=== PATIENT | female | born 1970 | race Hispanic/Latino ===

== ENCOUNTER 2020-02-01 16:47 | Emergency (ER) | payer OTHER ==
--- OUTSIDE RECORDS SUMMARY | 2020-02-01 17:06 | XMS REPORT | Clinical Summary ---
:1970 Author Organization [facility] Address [address] [place] [address] Care Team Providers Name Role Phone Fahad Merino MD Unavailable Aubrey Alanis MD Unavailable Unavailable Brandon Mcmillan Unavailable Benny Han Primary Care Provider Unavailable Allergies Active Allergy Reactions Severity Noted Date Comments Atorvastatin 05/17/2019 Muscle cramps, able to tolerate pravastatin Medications Medication Sig Dispensed Refills Start End Date Status Date aspirin 81 MG EC Take 81 mg by 0 Active tablet mouth daily. mycophenolate Take 4 capsules 0 01/25/20 Active (CELLCEPT) 250 mg (1,000 mg total) 0 21 capsule by mouth 2 (two) times daily. sulfamethoxazole-t Take 1 tablet (80 0 Active rimethoprim mg of trimethoprim 0 (BACTRIM,SEPTRA) total) by mouth 400-80 mg per daily. tablet valGANciclovir Take 1 tablet (450 0 Active (VALCYTE) 450 mg mg total) by mouth 0 21 tablet 3 (three) times a week MON/WED/FRI. clotrimazole Use as directed 1 0 Active (MYCELEX) 10 mg tablet (10 mg 0 marc total) in the mouth or throat 3 (three) times daily with meals. pantoprazole Take 1 tablet (40 0 Active (PROTONIX) 40 MG mg total) by mouth 0 tablet daily. PARoxetine (PAXIL) Take 1 tablet (20 2 Active 20 MG tablet mg total) by mouth 0 every morning. carvediloL (COREG) Take 1 tablet (25 60 tablet 11 Active 25 MG tablet mg total) by mouth 0 21 2 (two) times daily. NIFEdipine (ADALAT Take 1 tablet (60 60 tablet Active CC) 60 MG 24 hr mg total) by mouth 0 21 tablet 2 (two) times daily. levETIRAcetam Take 1 tablet (500 0 Active (KEPPRA) 500 MG mg total) by mouth 0 tablet 2 (two) times daily. fenofibrate Take 1 tablet (54 0 Active (LOFIBRA) 54 MG mg total) by mouth 0 tablet daily. pravastatin Take 1 tablet (40 30 tablet 01/25/20 Active (PRAVACHOL) 40 MG mg total) by mouth 0 21 tablet daily. fluticasone 2 sprays by Nasal 9.9 mL 0 Active propionate route daily. 0 (FLONASE) 50 mcg/actuation nasal spray insulin glargine Inject 10 Units 0 Active (BASAGLAR KWIKPEN subcutaneously 2 0 U-100 INSULIN) 100 (two) times daily. unit/mL (3 mL) InPn acetaminophen-code Take 1 tablet by 30 tablet 0 / 5 Active ine (TYLENOL #3) mouth every 6 0 20 300-30 mg per (six) hours as tablet needed for up to 10 days. Max Daily Amount: 4 tablets docusate sodium Take 1 capsule 10 capsule 0 Active (COLACE) 100 MG (100 mg total) by 0 capsule mouth 2 (two) times daily as needed. predniSONE Take 1 tablet (5 0 Ac tive (DELTASONE) 5 MG mg total) by mouth 0 tablet daily. furosemide (LASIX) Take 1 tablet (40 0 Active 40 MG tablet mg total) by mouth 0 21 daily. tacrolimus Take 3 capsules 0 01/27/20 Act daja (PROGRAF) 0.5 MG (1.5 mg total) by 0 21 capsule mouth every morning AND 4 capsules (2 mg total) every evening. pantoprazole Take 40 mg by 0 01/25/20 Dis continued (PROTONIX) 40 MG mouth daily. 20 tablet pravastatin Take 40 mg by 0 03/31/20 Disc ontinued (PRAVACHOL) 40 MG mouth daily. 19 tablet cholecalciferol, Take 5,000 Units 0 Discontinued vitamin D3, 5,000 by mouth daily. 20 unit Tab omega-3 fatty Take 120 mg by 0 01/20/20 D iscontinued acids-vitamin E mouth 2 (two) 20 1,000 mg Cap times daily . insulin glargine Inject 30 Units 0 0 Discontinued (BASAGLAR KWIKPEN subcutaneously 20 U-100 INSULIN) 100 nightly . unit/mL (3 mL) InPn calcium carbonate Take 3 tablets by 0 01/10 09/28 Discontinued (TUMS EX) 300 mg mouth daily. 20 Chew fluticasone 2 sprays by Nasal 0 01/25/20 Discontinued (FLONASE) 50 route daily. 20 mcg/actuation nasal spray NIFEdipine (ADALAT Take 1 tablet (60 60 tablet 0 04/30 CC) 60 MG 24 hr mg total) by mouth 8 19 tablet 2 (two) times daily. ipratropium-albute Take 3 mLs by 30 vial 0 0 rol (DUO-NEB) 0.5 nebulization every 8 19 mg-3 mg(2.5 mg 6 (six) hours as base)/3 mL needed for nebulizer solution Wheezing for up to 360 days. levETIRAcetam Take 1 tablet (500 60 tablet 3 0 (KEPPRA) 500 MG mg total) by mouth 9 20 tablet 2 (two) times daily. losartan (COZAAR) Take 1 tablet (50 60 tablet 3 07/11 50 MG tablet mg total) by mouth 9 20 2 (two) times daily. carvedilol (COREG) Take 1 tablet (25 60 tablet 3 11/28 Discontinued 25 MG tablet mg total) by mouth 9 20 2 (two) times daily. fenofibrate Take 54 mg by 0 01/25/20 Disc ontinued (LOFIBRA) 54 MG mouth daily. 9 20 tablet PARoxetine (PAXIL) Take 20 mg by 2 0 Discontinued 20 MG tablet mouth every 9 20 morning. atorvastatin Take 40 mg by 0 01/21/20 Dis continued (LIPITOR) 40 MG mouth. 9 20 tablet carvedilol (COREG) Take 1 tablet (25 60 tablet Discontinued 25 MG tablet mg total) by mouth 0 20 2 (two) times daily. cloNIDine HCl Take 1 tablet (0.1 60 tablet 0 Discontinued (CATAPRES) 0.1 MG mg total) by mouth 0 20 tablet 2 (two) times daily. guaiFENesin Take 1 tablet (600 60 tablet 01/20/20 Discontinued (MUCINEX) 600 mg mg total) by mouth 0 20 12 hr tablet 2 (two) times daily. NIFEdipine (ADALAT Take 1 tablet (60 60 tablet Discontinued CC) 60 MG 24 hr mg total) by mouth 0 20 tablet 2 (two) times daily. pravastatin Take 1 tablet (40 30 tablet 01/25/20 Discontinued (PRAVACHOL) 40 MG mg total) by mouth 0 20 tablet nightly. azithromycin Take 1 tablet (500 5 tablet 0 05/23/19 (ZITHROMAX) 500 MG mg total) by mouth 0 20 tablet daily for 5 days. losartan (COZAAR) Take 50 mg by 0 01/25/20 Discontinued 50 MG tablet mouth 2 (two) 20 times daily. levETIRAcetam Take 500 mg by 0 01/25/20 D iscontinued (KEPPRA) 500 MG mouth 2 (two) 20 tablet times daily. tacrolimus Take 3 capsules 0 01/25/20 Dis continued (PROGRAF) 0.5 MG (1.5 mg total) by 0 20 capsule mouth 2 (two) times daily. predniSONE Take 2 tablets (10 0 01/27/20 Discontinued (DELTASONE) 5 MG mg total) by mouth 0 20 tablet daily. furosemide (LASIX) Take 1 tablet (40 0 Discontinued 40 MG tablet mg total) by mouth 0 20 2 (two) times daily. tacrolimus Take 4 capsules (2 0 01/27/20 Discontinued (PROGRAF) 0.5 MG mg total) by mouth 0 20 capsule 2 (two) times daily. Active Problems Patient Care Coordination Note 1. ESRD, initially with proteinuria and CKD, biopsy 14 years ago in [place] indicated possible NSAID related, a second biopsy done 10 years ago minimal change. Third biopsy a few years ago with FSG S, pt started on steroids but subsequent ly failed, now on peritoneal dialysis since Mar 2012. 2. DM type 2 for 6 years now on insulin 3. HTN for years 4. Hyperlipidemia 5. Secondary hyperparathyroidism 6. Anemia of CKD 7. Surgeries including cholecystectomy, PD catheter, ovarian cyst on left removed (benign), hysterectomy. Problem Noted Date Hypertensive urgency 01/22/2020 Fluid overload 01/22/2020 S/P kidney transplant 01/21/2020 End stage renal disease 01/20/2020 Seizure disorder 10/17/2018 Liver masses 10/17/2018 Lethargy 07/30/2018 Hypertensive urgency 07/30/2018 Encephalopathy acute 07/30/2018 Shortness of breath 04/07/2018 Fatty liver 04/07/2018 Abnormal liver diagnostic imaging 04/07/2018 Hyperkalemia 12/16/2017 Fever, unspecified fever cause 12/16/2017 Iron deficiency anemia, unspecified iron deficiency an emia type 12/16/2017 ESRD on peritoneal dialysis 01/31/2017 Last Assessment & Plan: ESRD -cont peritoneal dialysis -cont to lose weight until reach goal of 223 -patient currently activated for kidney transplant 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 Will continue to follow. DM (diabetes mellitus) 06/10/2012 Last Assessment & Plan: DM: -Cont current management per Endocrine HTN (hypertension) 06/10/2012 Last Assessment & Plan: HTN; -well controlled on current medication a nd dietary regimen Anemia 06/10/2012 Last Assessment & Plan: Anemia -Hg stable, cont current care with hg mo nitoring and iron infusions per nephrology Kidney transplant status, cadaveric Resolved Problems Problem Noted Date Resolved Date Acute post-operative pain 01/21/2020 01/22/2020 Acute respiratory insufficiency 01/21/2020 01/22/20 Acute blood loss anemia 01/21/2020 01/22/2020 Encounters Date Type Specialty Care Team Description 02/01/2020 Telephone Transplant VillelaAdwoa Y Appointment 01/31/2020 Telephone Transplant Anya Villelaa Y Appointment 01/27/2020 Evaluation Transplant Timmins, Status post kid monserrat Reynolds MD transplant (Primary Marquez Yao Dx) MD Alessio 01/27/2020 Orders Only Transplant Timmins, Status post kid monserrat Hepatology Cecile Reynolds MD transplant 01/27/2020 Abstract Transplant Marquez Yao MD 01/27/2020 Documentation Transplant Nathan Littlejohn RN 01/26/2020 Telephone Transplant Adwoa Villela Y Appointment 01/24/2020 Orders Only Transplant Sheri Morel, Status post kidney anime artist (Tawny keller Dx) 01/21/2020 Anesthesia Event Herberth Melvin, AA 01/21/2020 Surgery Kayla South Aba TRANSPLANT,K JOHN Dodson MD LYNNE 01/21/2020 Documentation Intensive Care Isadora Reyna RN 01/21/2020 Abstract Transplant Nohemi Pacheco RN 01/21/2020 Documentation Transplant Isadora Reyna, MELANIE 01/20/2020 Hospital Encounter Intensive Care Kayla South Aba Abno rmal liver diagnostic imaging; - MD Ivory Acute blood loss anemia; 01/25/2020 Mayo Cheatham Acute post-o perative pain; MD Marilyn Acute respirato ry insufficiency; End stage renal disease (HCC); ESRD on periton eal dialysis (HCC); S/P kidney nichols splant; Seizure disorde r (HCC); Other hypervole alesia; Hypertensive ur gency 01/20/2020 Outside Orders Lab Sanket Melendez 01/20/2020 Travel 01/20/2020 Documentation Transplant Isadora Reyna, MELANIE 01/20/2020 Orders Only Lisa Balderas NP 01/19/2020 Telephone Transplant Nohemi Pacheco, MELANIE Waitlist Ma intecristina 01/18/2020 Orders Only Lab Korin, Awaiting Cecile Reynolds MD transplanta tion of kidney 01/18/2020 Orders Only Transplant Isadora Reyna RN Awaiting transplantation of kidney (Primary Dx) 12/31/2019 Documentation Transplant Maggie Camilo 11/30/2019 Telephone Transplant Nohemi Pacheco RN Waitlist Suzan muñiz 11/26/2019 Documentation Transplant Nohemi Pacheco RN 09/29/2019 Telephone Hepatology Maribel Judd, reschedule to day appt [place] 09/28/2019 Telephone Hepatology Carmen Blancas, Appointment (CX) [place] 09/22/2019 Orders Only Hepatology Eloy Titus Liver masses ( Primary NANI Moreno Dx) 08/19/2019 Documentation Transplant Reginaldo Yepez 05/26/2019 Orders Only Transplant Nohemi Pacheco RN Awaiting transplantation of kidney (Primary Dx) 05/18/2019 Travel 05/17/2019 Emergency General Internal Carrol Aceves M D Hypertensive urgency (Primary Dx); - Medicine Nishi David ESRD (end stage renal disease) (HCC); 05/18/2019 MD Teto Acute non intra ctable tension-type headache; History of diab etes mellitus 05/17/2019 Orders Only General Internal Medicine 05/17/2019 Travel 03/31/2019 Evaluation Transplant Timmanishs, Awaiting Cecile Reynolds MD transplantation of Marquez Yao kidney (Prim juan pablo Dx) MD Alessio 03/31/2019 Office Visit Hepatology Jesus, Rise Liver masses (Primary Dx); MD Archana Fatty liver; Eloy Titus Seizure disord er; NANI Moreno ESRD on periton eal dialysis (HCC); Abnormal liver diagnostic imaging; Shortness of br eath 03/19/2019 Documentation Hepatology Suresh Gold NP 03/16/2019 Hospital Encounter Radiology Jesus, Rise Liver masses MD Archana 03/09/2019 Telephone Transplant Nhoemi Pacheco RN Waitlist Suzan muñiz 03/09/2019 Orders Only Transplant Nohemi Pacheco RN Awaiting transplantation of kidney (Primary Dx) after 01/31/2019 Immunizations Name Dates Previously Given Next Due Influenza Three-TIV PF 5+ YRS 07/20/2015 Pneumococcal Polysaccharide (Pneumovax) 07/20/2015 Family History Medical History Relation Name Comments Hypertension Father Diabetes Mother Hypertension Mother Hematuria Sister Relation Name Status Comments Father Alive 67 yrs old HTN TIA Mother Alive 62 yrs old HT N DM Sister Alive 40 yrs old go [facility] health Sister Social History Tobacco Use Types Packs/Day Years Used Date Never Smoker Smokeless Tobacco: Never Used Alcohol Use Drinks/Week oz/Week Comments Yes 1 DRINK 3-4 X PE R YEAR Sex Assigned at Date Recorded Not on file Job Start Date Occupation Industry Not on file Not on file Not on file Travel History Travel Start Travel End No recent travel history available. Last Filed Vital Signs Vital Sign Reading Time Taken Blood Pressure 121/70 01/27/2020 12:55 PM CDT Pulse 78 01/27/2020 12:55 PM CDT Temperature 36.6 C (97.9 F) 01/27/2020 12:55 PM CDT Respiratory Rate 16 01/27/2020 12:55 PM CDT Oxygen Saturation 97% 01/25/2020 8:02 AM CDT Inhaled Oxygen Concentration 24% 01/24/2020 3:00 AM CDT Weight 93.5 kg (206 lb 1.6 oz) 01/27/2020 12:55 PM CDT Height 170.2 cm (5' 7") 01/27/2020 12:55 PM CDT Body Mass Index 32.28 01/27/2020 12:55 PM CDT Plan of Treatment Date Type Specialty Care Team Description 02/03/2020 Orders Only Transplant Hepatology Bree Langley MD [address] [address] [phone] 02/08/2020 Orders Only Transplant Hepatology Bree Langley MD [address] [facility] [address] [place], [place] [address] [phone] 02/08/2020 Evaluation Transplant 02/08/2020 Evaluation Transplant 02/15/2020 Orders Only Transplant Hepatology Bree Langley MD [address] [address] [phone] 02/15/2020 Evaluation Transplant Health Maintenance Due Date Last Done Comments DIABETIC EYE EXAM 1980 DIABETIC FOOT EXAM 1980 URINE MICROALBUMIN 1980 CERVICAL CANCER SCREENING PAP ONLY 1991 (Age 21-65) MEDICARE ANNUAL WELLNESS (YEAR 2 03/13/2013 or FIRST YEAR if no IPPE) PNEUMOCOCCAL VACCINE 2-64 YEARS AT 07/19/2016 07/20/2015 RISK (2 of 3 - PCV13) HEMOGLOBIN A1C 01/31/2019 07/31/2018, 02/10/2018, 03/05/2017, Additional history exists INFLUENZA VACCINE (#1) 2020 07/20/2015 LIPID PANEL 02/24/2022 02/24/2019, 08/11/2018, 02/10/2018, Additional history exists Implants Implanted Type Area [employer] Vulcanizer Device Shelf Model / Identifier Expiration Serial / Lot Date Cath Yulisa Dlys 2 Cuf Curl 62cm [id number] - [id number] Catheter Right: COVIDIEN:MARIELLA 05/08/2021 [id number] / Implanted: Qty: 1 on 01/31/2017 by Aisha Page MD Di alysis Abdomen L / Graduate Student [id number] Stent Uret Polaris [id number] - [id number] IMPLANTS Lef t: [place] 07/21/2022 [id number] / Implanted: Qty: 1 on 01/21/2020 by Kayla South Aba, MD Ureter SCI:UROLOGY/SIDE LASTER TACK / ECOLOGY [id number] Procedures Procedure Name Priority Date/Time Associated Comments Diagnosis (CELLAVISION MANUAL Routine 01/27/2020 8:39 Status post kidne y Results for this DIFF) AM CDT transplant procedure are i n the results section. CBC W/PLT COUNT & AUTO Routine 01/27/2020 8:39 Status post ki dney Results for this DIFFERENTIAL AM CDT transplant procedure are i n the results section. FLOW PRA CLASS II WITH Routine 01/27/2020 8:39 Status post ki dney Results for this REFLEX TO ANTIBODY AM CDT transplant procedure are in SPECIFICITY the results section. FLOW PRA CLASS I WITH Routine 01/27/2020 8:39 Status post kid monserrat Results for this REFLEX TO ANTIBODY AM CDT transplant procedure are in SPECIFICITY the results section. AB DONOR SPECIFIC, DSA Routine 01/27/2020 8:39 Status post ki dney Results for this AM CDT transplant procedure are i n the results section. AB SPECIFICITY CLASS II Routine 01/27/2020 8:39 Status post k idney Results for this AM CDT transplant procedure are i n the results section. AB SPECIFICITY CLASS I Routine 01/27/2020 8:39 Status post ki dney Results for this AM CDT transplant procedure are i n the results section. TACROLIMUS LEVEL Routine 01/27/2020 8:39 Status post kidney R esults for this AM CDT transplant procedure are i n the results section. CBC W/PLT COUNT & AUTO Routine 01/27/2020 8:39 Status post ki dney Results for this DIFFERENTIAL AM CDT transplant procedure are i n the results section. URINALYSIS W/ REFLEX Routine 01/27/2020 8:38 Status post kidn ey Results for this URINE CULTURE AM CDT transplant procedure are in the results section. PHOSPHORUS Routine 01/27/2020 8:38 Status post kidney Resul ts for this AM CDT transplant procedure are i n the results section. COMPREHENSIVE METABOLIC Routine 01/27/2020 8:38 Status post k idney Results for this PANEL AM CDT transplant procedure are i n the results section. URINE CULTURE Routine 01/27/2020 8:38 Status post kidney Resu lts for this AM CDT transplant procedure are i n the results section. POCT-GLUCOSE METER Routine 01/25/2020 8:04 Resul ts for this AM CDT procedure are i n the results section. CBC W/PLT COUNT & AUTO Routine 01/25/2020 5:15 R esults for this DIFFERENTIAL AM CDT procedure are i n the results section. TACROLIMUS LEVEL Routine 01/25/2020 5:15 Results for this AM CDT procedure are i n the results section. CMV PCR, QUANTITATIVE Routine 01/25/2020 5:15 AM CDT PHOSPHORUS Routine 01/25/2020 5:15 Results for this AM CDT procedure are i n the results section. MAGNESIUM Routine 01/25/2020 5:15 Results for this AM CDT procedure are i n the results section. CBC W/PLT COUNT & AUTO Routine 01/25/2020 5:15 R esults for this DIFFERENTIAL AM CDT procedure are i n the results section. BASIC METABOLIC PANEL Routine 01/25/2020 5:15 Re sults for this (7) AM CDT procedure are i n the results section. POCT-GLUCOSE METER Routine 01/24/2020 10:07 Resul ts for this PM CDT procedure are i n the results section. POCT-GLUCOSE METER Routine 01/24/2020 6:22 Resul ts for this PM CDT procedure are i n the results section. PLASMA EXCHANGE Routine 01/24/2020 6:19 Results for this PM CDT procedure are i n the results section. TRANSFUSION SERVICE 01/24/2020 6:01 REPORT - SCAN PM CDT CALCIUM, IONIZED Routine 01/24/2020 5:13 Results for this PM CDT procedure are i n the results section. POCT-GLUCOSE METER Routine 01/24/2020 11:59 Resul ts for this AM CDT procedure are i n the results section. POCT-GLUCOSE METER Routine 01/24/2020 7:16 Resul ts for this AM CDT procedure are i n the results section. CBC W/PLT COUNT & AUTO Routine 01/24/2020 5:36 R esults for this DIFFERENTIAL AM CDT procedure are i n the results section. TACROLIMUS LEVEL Routine 01/24/2020 5:36 Results for this AM CDT procedure are i n the results section. TOXOPLASMA GONDII Routine 01/24/2020 5:36 Result s for this ANTIBODY, IGG AM CDT procedure are in the results section. HIV-1 ANTIGEN WITH Routine 01/24/2020 5:36 Resul ts for this HIV-1/2 ANTIBODY AM CDT procedure a re in the results section. HEPATITIS C ANTIBODY Routine 01/24/2020 5:36 Res ults for this AM CDT procedure are i n the results section. HEPATITIS A ANTIBODY, Routine 01/24/2020 5:36 Re sults for this IGG AM CDT procedure are i n the results section. COCCIDIOIDES ANTIBODIES Routine 01/24/2020 5:36 Results for this AM CDT procedure are i n the results section. CRYPTOCOCCAL ANTIGEN Routine 01/24/2020 5:36 Res ults for this AM CDT procedure are i n the results section. PHOSPHORUS Routine 01/24/2020 5:36 Results for this AM CDT procedure are i n the results section. MAGNESIUM Routine 01/24/2020 5:36 Results for this AM CDT procedure are i n the results section. CBC W/PLT COUNT & AUTO Routine 01/24/2020 5:36 R esults for this DIFFERENTIAL AM CDT procedure are i n the results section. BASIC METABOLIC PANEL Routine 01/24/2020 5:36 Re sults for this (7) AM CDT procedure are i n the results section. POCT-GLUCOSE METER Routine 01/24/2020 5:22 Resul ts for this AM CDT procedure are i n the results section. PREPARE PLASMA Routine 01/23/2020 11:54 Results f or this PM CDT procedure are i n the results section. TRANSFUSION SERVICE 01/23/2020 6:02 REPORT - SCAN PM CDT POCT-GLUCOSE METER Routine 01/23/2020 4:12 Resul ts for this PM CDT procedure are i n the results section. CALCIUM, IONIZED Routine 01/23/2020 1:33 Results for this PM CDT procedure are i n the results section. POCT-GLUCOSE METER Routine 01/23/2020 11:04 Resul ts for this AM CDT procedure are i n the results section. PLASMA EXCHANGE Routine 01/23/2020 9:09 Results for this AM CDT procedure are i n the results section. CBC W/PLT COUNT & AUTO Routine 01/23/2020 4:12 R esults for this DIFFERENTIAL AM CDT procedure are i n the results section. TACROLIMUS LEVEL Routine 01/23/2020 4:12 Results for this AM CDT procedure are i n the results section. PHOSPHORUS Routine 01/23/2020 4:12 Results for this AM CDT procedure are i n the results section. MAGNESIUM Routine 01/23/2020 4:12 Results for this AM CDT procedure are i n the results section. CBC W/PLT COUNT & AUTO Routine 01/23/2020 4:12 R esults for this DIFFERENTIAL AM CDT procedure are i n the results section. BASIC METABOLIC PANEL Routine 01/23/2020 4:12 Re sults for this (7) AM CDT procedure are i n the results section. PREPARE RBC Routine 01/22/2020 11:54 Results for this PM CDT procedure are i n the results section. POCT-GLUCOSE METER Routine 01/22/2020 11:09 Resul ts for this PM CDT procedure are i n the results section. TRANSFUSION SERVICE 01/22/2020 6:03 REPORT - SCAN PM CDT POCT-GLUCOSE METER Routine 01/22/2020 5:04 Resul ts for this PM CDT procedure are i n the results section. TRANSFUSE PLASMA Routine 01/22/2020 1:52 PM CDT TRANSFUSE PLASMA Routine 01/22/2020 1:17 PM CDT PLASMA EXCHANGE Routine 01/22/2020 1:10 Results for this PM CDT procedure are i n the results section. CALCIUM, IONIZED Routine 01/22/2020 1:06 Results for this PM CDT procedure are i n the results section. TRANSFUSE PLASMA Routine 01/22/2020 12:44 PM CDT CALCIUM, IONIZED Routine 01/22/2020 12:03 Results for this PM CDT procedure are i n the results section. POCT-GLUCOSE METER Routine 01/22/2020 11:52 Resul ts for this AM CDT procedure are i n the results section. POCT-GLUCOSE METER Routine 01/22/2020 10:01 Resul ts for this AM CDT procedure are i n the results section. XR CHEST 1 VIEW Routine 01/22/2020 3:52 Results for this PORTABLE/BEDSIDE AM CDT procedure a re in the results section. CBC W/PLT COUNT & AUTO Routine 01/22/2020 3:31 R esults for this DIFFERENTIAL AM CDT procedure are i n the results section. TACROLIMUS LEVEL Routine 01/22/2020 3:31 Results for this AM CDT procedure are i n the results section. VANCOMYCIN LEVEL, Routine 01/22/2020 3:31 Result s for this RANDOM AM CDT procedure are i n the results section. PHOSPHORUS Routine 01/22/2020 3:31 Results for this AM CDT procedure are i n the results section. MAGNESIUM Routine 01/22/2020 3:31 Results for this AM CDT procedure are i n the results section. CBC W/PLT COUNT & AUTO Routine 01/22/2020 3:31 R esults for this DIFFERENTIAL AM CDT procedure are i n the results section. BASIC METABOLIC PANEL Routine 01/22/2020 3:31 Re sults for this (7) AM CDT procedure are i n the results section. POCT-GLUCOSE METER Routine 01/21/2020 11:29 Resul ts for this PM CDT procedure are i n the results section. HEMOGLOBIN AND Routine 01/21/2020 9:46 Results f or this HEMATOCRIT PM CDT procedure are i n the results section. TRANSFUSE LEUKO-REDUCED Routine 01/21/2020 9:06 RED BLOOD CELLS PM CDT TRANSFUSION SERVICE 01/21/2020 6:01 REPORT - SCAN PM CDT ANTIBODY IDENTIFICATION STAT 01/21/2020 5:02 Results for this PM CDT procedure are i n the results section. PREPARE LEUKO-REDUCED Routine 01/21/2020 4:22 Re sults for this RBC PM CDT procedure are i n the results section. PREPARE RBC STAT 01/21/2020 3:53 Results for this PM CDT procedure are i n the results section. CBC W/PLT COUNT & AUTO STAT 01/21/2020 1:21 R esults for this DIFFERENTIAL PM CDT procedure are i n the results section. CBC W/PLT COUNT & AUTO STAT 01/21/2020 1:21 R esults for this DIFFERENTIAL PM CDT procedure are i n the results section. US TRANSPLANT KIDNEY STAT 01/21/2020 1:07 Res ults for this PM CDT procedure are i n the results section. BASIC METABOLIC PANEL STAT 01/21/2020 11:51 Re sults for this (7) AM CDT procedure are i n the results section. PLATELET COUNT STAT 01/21/2020 11:51 Results f or this AM CDT procedure are i n the results section. HGB/HCT (H&H) - STAT STAT 01/21/2020 11:51 Res ults for this LAB AM CDT procedure are i n the results section. GLUCOSE-STAT LAB STAT 01/21/2020 11:51 Results for this AM CDT procedure are i n the results section. CALCIUM, IONIZED STAT 01/21/2020 11:51 Results for this AM CDT procedure are i n the results section. POTASSIUM-STAT LAB STAT 01/21/2020 11:51 Resul ts for this AM CDT procedure are i n the results section. SODIUM NA-STAT LAB STAT 01/21/2020 11:51 Resul ts for this AM CDT procedure are i n the results section. BLOOD GAS, ARTERIAL STAT 01/21/2020 11:51 Resu lts for this AM CDT procedure are i n the results section. SURGICALLY OBTAINED LINETTE 01/21/2020 11:45 Resu lts for this CULTURE + GRAM STAIN AM CDT procedu re are in the results section. ANAEROBIC CULTURE LINETTE 01/21/2020 11:45 Result s for this AM CDT procedure are i n the results section. FUNGUS CULTURE + SMEAR Routine 01/21/2020 11:45 AM CDT REMOVAL DIALYSIS 01/21/2020 6:00 End stage renal CATHETER AM CDT disease (HCC) Case Notes KIDNEY TRANSPLANT REQUESTING [id number] ID: [id number] ID: [id number] INCREASED RISKCELL SAVER: SHABANA JORDAN EY ON PUMPFROM [employer] HUMPHREY KIDNEY TRANSPLANTCOORDINATOR TRANSPLANT,KIDNEY-CADAVER 01/21/2020 6:00 AM CD T End stage renal disease (HCC) Case Notes KIDNEY TRANSPLANT REQUESTING [id number] ID: [id number] ID: [id number] INCREASED RISKCELL SAVER: SHABANA PONCE ON PUMPFROM [employer] [facility] KIDNEY TRANSPLANTCOORDINATOR CBC W/PLT COUNT & AUTO STAT 01/20/2020 9:30 PM CDT Results for this DIFFERENTIAL procedure are i n the results section . CBC W/PLT COUNT & AUTO STAT 01/20/2020 9:30 PM CDT Results for this DIFFERENTIAL procedure are i n the results section . TYPE AND SCREEN, AUTOMATED STAT 01/20/2020 9:29 PM CDT Results for this procedure are i n the results section . PROTHROMBIN TIME/INR STAT 01/20/2020 9:29 PM CDT Results for this procedure are i n the results section . COMPREHENSIVE METABOLIC Routine 01/20/2020 9:29 PM CDT Results for this PANEL procedure are i n the results section . APTT STAT 01/20/2020 9:29 PM CDT Resu lts for this procedure are i n the results section . CT CHEST WITHOUT IV CONTRAST STAT 01/20/2020 7:12 PM CDT Results for this procedure are i n the results section . BODY FLUID CELL COUNT WITH Routine 01/20/2020 6:20 PM CDT Results for this DIFFERENTIAL procedure are i n the results section . FUNGUS CULTURE + SMEAR Routine 01/20/2020 6:18 PM CDT PERITONEAL DIALYSIS EFFLUENT Routine 01/20/2020 6:18 PM CDT Results for this CULTURE procedure are i n the results section . ECG 12-LEAD Routine 01/20/2020 6:11 PM CDT Procedure Note - Interface, External Ris In - 01/20/2020 6:23 PM CDT Ventricular Rate 67 BPM Atrial Rate 67 BPM P-R Interval 204 ms QRS Duration 88 ms Q-T Interval 486 ms QTC Calculation(Bazett) 513 ms P Saltillo 60 degrees R Saltillo -16 degrees T Saltillo -12 degrees Normal sinus rhythm Prolonged QT Abnormal ECG When compared with ECG of 18:29, No significant change was fo und ECG 12-LEAD Routine 01/20/2020 6:11 Results for this PM CDT procedure are i n the results section. SARS-COV2/RT-PCR STAT 01/20/2020 6:03 Results for this ([facility]) PM CDT procedure are in the results section. CRSMTCH FLOW 3 SERUM Routine 01/18/2020 5:51 Awaiting Res ults for this PM CDT transplantation of procedure are in kidney the results section. CRSMTCH SEROLOGY FV Routine 01/18/2020 5:51 Awaiting Resu lts for this 3 PM CDT transplantation of procedure are in kidney the results section. AB SPECIFICITY CLASS Routine 01/18/2020 5:51 Awaiting Res ults for this II PM CDT transplantation of procedure are in kidney the results section. AB SPECIFICITY CLASS Routine 01/18/2020 5:51 Awaiting Res ults for this I PM CDT transplantation of procedure are in kidney the results section. FLOW PRA CLASS II STAT 01/18/2020 5:51 Awaiting Result s for this WITH REFLEX TO PM CDT transplantation of procedu re are in ANTIBODY SPECIFICITY kidney the res ults section. FLOW PRA CLASS I STAT 01/18/2020 5:51 Awaiting Results for this WITH REFLEX TO PM CDT transplantation of procedu re are in ANTIBODY SPECIFICITY kidney the res ults section. RHYTHM STRIP - SCAN 05/19/2019 4:00 PM CARDIAC NURSE SPUTUM CULTURE + Routine 05/18/2019 12:19 Results for this GRAM STAIN PM CARDIAC NURSE procedure are i n the results section. POCT-GLUCOSE METER Routine 05/18/2019 7:57 Resul ts for this AM CARDIAC NURSE procedure are i n the results section. BASIC METABOLIC Routine 05/18/2019 5:27 Results for this PANEL (7) AM CARDIAC NURSE procedure are i n the results section. POCT-GLUCOSE METER Routine 05/17/2019 9:37 Resul ts for this PM CARDIAC NURSE procedure are i n the results section. ECG 12-LEAD STAT 05/17/2019 6:29 Results for this PM CARDIAC NURSE procedure are i n the results section. CT BRAIN WITHOUT IV STAT 05/17/2019 5:00 Resu lts for this CONTRAST PM CARDIAC NURSE procedure are i n the results section. XR CHEST 1 VIEW STAT 05/17/2019 4:51 Results for this PORTABLE/BEDSIDE PM CARDIAC NURSE procedure a re in the results section. CBC W/PLT COUNT & STAT 05/17/2019 4:47 Result s for this AUTO DIFFERENTIAL PM CARDIAC NURSE procedure are in the results section. B-TYPE NATRIURETIC STAT 05/17/2019 4:47 Resul ts for this FACTOR (BNP) PM CARDIAC NURSE procedure are i n the results section. PT/APTT STAT 05/17/2019 4:47 Results for this PM CARDIAC NURSE procedure are i n the results section. CBC W/PLT COUNT & STAT 05/17/2019 4:47 Result s for this AUTO DIFFERENTIAL PM CARDIAC NURSE procedure are in the results section. TROPONIN I STAT 05/17/2019 4:47 Results for this PM CARDIAC NURSE procedure are i n the results section. MAGNESIUM STAT 05/17/2019 4:47 Results for this PM CARDIAC NURSE procedure are i n the results section. BASIC METABOLIC STAT 05/17/2019 4:47 Results for this PANEL (7) PM CARDIAC NURSE procedure are i n the results section. CBC W/PLT COUNT & Routine 03/31/2019 3:06 Fatty liver Result s for this AUTO DIFFERENTIAL PM CARDIAC NURSE procedure are in the results section. PROTHROMBIN TIME/INR Routine 03/31/2019 3:06 Fatty liver Res ults for this PM CARDIAC NURSE procedure are i n the results section. CBC W/PLT COUNT & Routine 03/31/2019 3:06 Fatty liver Result s for this AUTO DIFFERENTIAL PM CARDIAC NURSE procedure are in the results section. HEPATIC FUNCTION Routine 03/31/2019 3:06 Fatty liver Results for this PANEL PM CARDIAC NURSE procedure are i n the results section. BASIC METABOLIC Routine 03/31/2019 3:06 Fatty liver Results for this PANEL (7) PM CARDIAC NURSE procedure are i n the results section. CT ABDOMEN WITH & Routine 03/16/2019 1:08 Liver masses Result s for this WITHOUT IV CONTRAST PM CARDIAC NURSE procedur e are in the results section. 2D ECHO W/ DOPPLER Routine 02/24/2019 (CW/PW/COLOR) after 01/31/2019 Results FLOW PRA CLASS II WITH REFLEX TO ANTIBODY SPECIFICITY (01/27/2020 8:39 AM CDT) Only the most recent of2 resultswithin the time period is included. Flow Class II Percent Positive [address] [facility] TEST[facility] Specimen Blood Narrative Performed At Disclaimer: [facility] TEST[facility] This test was developed and its performance characteri stics determined by the [facility] Laboratory. It has not been aym red or approved by the U.S. Food and Drug Administration. The FDA has determined that such clearance or approval is not nece ssary. This test is used for clinical purposes. It should not be r egarded as investigational or for research. This laboratory is ce rtified under the Clinical Laboratory Improvement Amendments o f 1988 (CLIA-88) as qualified to perform high complexity clin ical laboratory testing. Performing Organization Address City/[facility] Phone Number [facility] TESTING [address] [place], [place]: [place] [address] [id number], CLIA#[id number] CAP#[id number] UNOS#[id number] FLOW PRA CLASS I WITH REFLEX TO ANTIBODY SPECIFICITY (01/27/2020 8:39 AM CDT) Only the most recent of2 resultswithin the time period is included. Flow Class I Percent Positive 66 [facility] TESTING Specimen Blood Narrative Performed At Disclaimer: [facility] TEST[facility] This test was developed and its performance characteri stics determined by the [facility] Laboratory. It has not been amy red or approved by the U.S. Food and Drug Administration. The FDA has determined that such clearance or approval is not nece ssary. This test is used for clinical purposes. It should not be r egarded as investigational or for research. This laboratory is ce rtified under the Clinical Laboratory Improvement Amendments o f 1988 (CLIA-88) as qualified to perform high complexity clin ical laboratory testing. Performing Organization Address City/[facility] Cent[facility]ode Phone Number [facility] TEST[facility] [address] [place], [place]: [place] [address] [id number], CLIA#[id number] CAP#[id number] UNOS#[id number] AB SPECIFICITY CLASS II (01/27/2020 8:39 AM CDT)Only the most recent of2 resultswithin the time period is included. AB Specificity Class II DR:7 9 10 [facility] H LA TESTING DRw:53 DQ:2 04:01 5 6 8 DQA:01:01 01:02 01:03 02:01 03:02 03:03 05:01 AB Specificity Titr Class MFIs > 1000 [facility] TEST[facility] Report Specimen Blood Narrative Performed At Disclaimer: [facility] TEST[facility] This test was developed and its performance characteri stics determined by the [facility] Laboratory. It has not been amy red or approved by the U.S. Food and Drug Administration. The FDA has determined that such clearance or approval is not nece ssary. This test is used for clinical purposes. It should not be r egarded as investigational or for research. This laboratory is ce rtified under the Clinical Laboratory Improvement Amendments o f 1988 (CLIA-88) as qualified to perform high complexity clin ical laboratory testing. Performing Organization Address City/[facility]ode Phone Number [facility] TEST[facility] [address] [place], [place]: [place] ALEX[place] [address] [id number], CLIA#[id number] CAP#[id number] UNOS#[id number] AB SPECIFICITY CLASS I (01/27/2020 8:39 AM CDT)Only the most recent of2 results within the time period is included. AB Specificity Class I A:1 3 11 23 24 32 36 [facility] B:7 13 27 37 38 41 44 47 48 49 51 53 57 59 60 61 63 73 77 81 Bw:4 AB Specificity Titr Class MFIs > 1000 [facility] TEST[facility] Report Specimen Blood Narrative Performed At Disclaimer: [facility] TEST[facility] This test was developed and its performance characteri stics determined by the [facility] Laboratory. It has not been amy red or approved by the U.S. Food and Drug Administration. The FDA has determined that such clearance or approval is not nece ssary. This test is used for clinical purposes. It should not be r egarded as investigational or for research. This laboratory is ce rtified under the Clinical Laboratory Improvement Amendments o f 1988 (CLIA-88) as qualified to perform high complexity clin ical laboratory testing. Performing Organization Address City/[facility] Phone Number [facility] HLA TESTING ONE [place], [place]: [place] [address] [id number], CLIA#[id number] CAP#[id number] UNOS#[id number] AB Specifities DSA (01/27/2020 8:39 AM CDT) DSA A AG1 02:01 [facility] HLA TESTI NG DSA A AG2 74:01 [facility] HLA TESTI NG DSA B AG1 15:03 [facility] HLA TESTI NG DSA B AG2 15:03 [facility] HLA TESTI NG DSA C AG1 02:02 [facility] HLA TESTI NG DSA C AG2 02:02 [facility] HLA TESTI NG DSA DR AG1 08:04 [facility] HLA TESTI NG DSA DR AG2 13:03 [facility] HLA TESTI NG DSA DRw AG2 3*01:01 [facility] HLA TESTI NG DSA DQA AG1 04:01 [facility] HLA TESTI NG DSA DQA AG2 05 [facility] HLA TESTI NG DSA DQB AG1 03:01 [facility] HLA TESTI NG DSA DQB AG2 03:01 [facility] HLA TESTI NG DSA DPA AG1 02:01 [facility] HLA TESTI NG DSA DPA AG2 03:01 [facility] HLA TESTI NG DSA DPB AG1 01:01 [facility] HLA TESTI NG DSA DPB AG2 105:01 [facility] HLA TESTI NG AB Specificity DSA Comment NO DONOR SPECIFIC ANTIBODY [facility] TEST[facility] DETECTED WITH MFIs > 1000; If a specific bead is not available on single antigen panel and MFIs > 1000, results reflect the average of beads with serological equivalence. Specimen Blood Narrative Performed At Disclaimer: [facility] TEST[facility] This test was developed and its performance characteri stics determined by the [facility] Laboratory. It has not been amy red or approved by the U.S. Food and Drug Administration. The FDA has determined that such clearance or approval is not nece ssary. This test is used for clinical purposes. It should not be r egarded as investigational or for research. This laboratory is ce rtified under the Clinical Laboratory Improvement Amendments o f 1988 (CLIA-88) as qualified to perform high complexity clin ica laboratory testing. Performing Organization Address City/State/Zipcode Phone Number [facility] HLA TESTING ONE [facility] [place], [place]: [place] [address] [id number], CLIA#[id number] CAP#[id number] UNOS#[id number] Manual Differential (01/27/2020 8:39 AM CDT) % Neutros 86 % [facility] % Lymphs 1 % [facility] % Monos 5 % [facility] % Eos 2 % [facility] % Metamyelo 2 (H) 0 - 0 % [facility] % Myelo 3 (H) 0 - 0 % [facility] % Promyelo 1 (H) 0 - 0 % [facility] % Bands 2 0 - 10 % [facility] # Neutros 8.17 (H) 1.56 - 6.13 K/ul [facility] # Lymphs 0.10 (L) 1.18 - 3.74 K/ul [facility] # Monos 0.48 (H) 0.24 - 0.36 K/uL [facility] # Eos 0.19 0.04 - 0.36 K/uL [facility] # Metamyelo 0.19 (H) 0.00 - 0.00 K/uL [facility] # Myelo 0.29 (H) 0.00 - 0.00 K/uL [facility] # Promyelo 0.10 (H) 0.00 - 0.00 K/uL [facility] # Bands 0.19 0.00 - 0.80 K/uL [facility] Total Counted 100 [facility] nRBC (manual) 2 (H) 0 - 0 /100 WBC [facility] WBC Morphology Normal [facility] Platelet Morphology Normal [facility] Polychromasia 1+ few [facility] Artifact Present [facility] Platelet Conc Adequate [facility] Specimen Blood Narrative Performed At Director Of Photography ID - Raya Overholt [facility] User comments: Slide comments: Performing Organization Address City/State/Zipcode Phone Number [facility] [address] [place] [address] CENTER CBC with platelet count + automated diff (01/27/2020 8:39 AM CDT)Only the most recent of9 resultswithin the time period is included. WBC 9.5 3.5 - 10.5 K/L [facility] RBC 2.72 (L) 3.93 - 5.22 M/L [facility] Hemoglobin 8.4 (L) 11.2 - 15.7 GM/DL [facility] Hematocrit 26.5 (L) 34.1 - 44.9 % [facility] MCV 97.4 (H) 79.4 - 94.[address] [facility] MCH 30.9 25.6 - 32.[address] [facility] MCHC 31.7 (L) 32.2 - 35.5 GM/DL [facility] RDW 13.3 11.7 - 14.4 % [facility] Platelets 270 150 - 450 K/CU MM [facility] MPV 10.2 9.4 - 12.3 fL [facility] nRBC 1 (H) 0 - 0 /100 WBC [facility] Specimen Blood Performing Organization Address City/[facility]/Zipcode Phone Number [address] [address] CENTER Tacrolimus level (01/27/2020 8:39 AM CDT)Only the most recent of5 resultswithin the time period is included. Tacrolimus Lvl 13.0 10.0 - 20.0 ng/mL [facility] Specimen Blood Narrative Performed At Director Of Photography ID - [place] F [facility] Performing Organization Address City/State/Zipcode Phone Number [address] [address] CENTER Urinalysis w/Microscopic + Reflex to Culture (01/27/2020 8:38 AM CDT) Color, UA Yellow [facility] Clarity, UA Clear [facility] Specific Mcbrides, UA 1.015 1.001 - 1.[address] [facility] pH, UA 6.0 5.0 - 8.[address] [facility] Protein, UA 30 mg/dL (A) Negative [facility] Glucose, UA 30 mg/dL (A) Negative [facility] Ketones, UA Negative Negative [facility] Bilirubin, UA Negative Negative [facility] Blood, UA Small (A) Negative [facility] Nitrite, UA Negative Negative [facility] Leukocytes, UA Small (A) Negative [facility] Urobilinogen, UA 0.2 0.2 - 1.0 mg/dL [facility] RBC, UA 30 /HPF [facility] WBC, UA 21 /HPF [facility] Mucus Rare [facility] Squam Epithel, UA 2 /HPF [facility] Yeast Rare [facility] Specimen Source [facility] Specimen Urine Narrative Performed At Director Of Photography ID - [auto] [facility] Director Of Photography ID - tech Performing Organization Address City/[facility]/Zipcode Phone Number [address] [address] CENTER Urine culture (01/27/2020 8:38 AM CDT) Result No growth [facility] Specimen Urine Performing Organization Address City/[facility]/Zipcode Phone Number [address] [address] CENTER Phosphorus (01/27/2020 8:38 AM CDT)Only the most recent of5 resultswithin the time period is included. Phosphorus 2.1 (L) 2.3 - 4.7 mg/dL [facility] Specimen Blood Narrative Performed At Director Of Photography ID - ANA [facility] Performing Organization Address City/State/Zipcode Phone Number [facility] [address] [place] [address] CENTER Comprehensive metabolic panel (01/27/2020 8:38 AM CDT)Only the most recent of2 resultswithin the time period is included. Protein, Total 7.1 6.0 - 8.3 gm/dL [facility] Albumin 4.6 3.5 - 5.0 g/dL [facility] Alkaline Phosphatase 57 40 - 150 U/L [facility] Total Bilirubin 0.9 0.2 - 1.2 mg/dL [facility] Sodium 140 136 - 145 meq/L [facility] Potassium 3.7 3.5 - 5.1 meq/L [facility] Chloride 104 98 - 107 meq/L [facility] CO2 19 (L) 22 - 29 meq/L [facility] BUN 19 7 - 21 mg/dL [facility] Creatinine 2.01 (H) 0.57 - 1.25 mg/dL [facility] Glucose 299 (H) 70 - 105 mg/dL [facility] Calcium 8.7 8.4 - 10.2 mg/dL [facility] AST 42 (H) 5 - 34 U[facility]L [facility] ALT 22 6 - 55 U/L [facility] EGFR 26Comment: ESTIMATED GFR mL/min/1.[address] [facility]ENTERUpSpring [facility] IS NOT ACCURATE [facility] CREATININE CLEARANCE IN PREDICTING GLOMERULAR FILTRATION RATE. ESTIMATED GFR IS NOT APPLICABLE FOR DIALYSIS PATIENTS. Specimen Blood Narrative Performed At Director Of Photography ID - ANA [facility] Performing Organization Address [facility]/Zipcode Phone Number [address] [address] [place] POC-Glucose meter (01/25/2020 8:04 AM CDT)Only the most recent of15 results within the time period is included. POC-Glucose Meter 142 (H)Comment: : TESTED 70 - 110 mg/dL [facility] AT [address], [address]: Director Of Photography/Production Control Analyst ID = [id number] for Orlin Rodolfovince Specimen Blood Performing Organization Address [facility] Centercome Phone Number [address] [address] [place] CMV PCR, quantitative (01/25/2020 5:15 AM CDT) Specimen Blood Narrative Performed At This result has an attachment that is no t available. Magnesium (01/25/2020 5:15 AM CDT)Only the most recent of5 resultswithin the time period is included. Magnesium 1.6 1.6 - 2.6 mg/dL [facility] Specimen Blood Narrative Performed At Director Of Photography ID - [place] [facility] Performing Organization Address [facility] Centercode Phone Number [address] [address] [place] Basic Metabolic Panel (01/25/2020 5:15 AM CDT)Only the most recent of8 results within the time period is included. Sodium 140 136 - 145 meq/L [facility] Potassium 3.6 3.5 - 5.1 meq/L [facility] Chloride 110 (H) 98 - 107 meq/L [facility] CO2 24 22 - 29 meq/L [facility] BUN 17 7 - 21 mg/dL [facility] Creatinine 2.02 (H) 0.57 - 1.25 mg/dL [facility] Glucose 144 (H) 70 - 105 mg/dL [facility] Calcium 8.8 8.4 - 10.2 mg/dL [facility] EGFR 26Comment: ESTIMATED GFR IS mL/min/1.73 sq m [facility] NOT ACCURATE CREATININE [facility] CLEARANCE IN PREDICTING GLOMERULAR FILTRATION RATE. ESTIMATED GFR IS NOT APPLICABLE FOR DIALYSIS PATIENTS. Specimen Blood Narrative Performed At Director Of Photography ID - ADMIN [facility] Performing Organization Address City/State/Zipcode Phone Number [facility] [address] [place] [address] CENTER Plasma Exchange (01/24/2020 6:19 PM CDT) Narrative Performed At Alok Hernández Jr., MD 6:33 PM CLINICAL PATHOLOGY APHERESIS PROCEDURE N SANA Oneillis [id number] Consulting Physician: Edgar Date of service: 01/24/2020 Access: Acute Catheter Access Site: [facility] Procedure: Therapeutic Plasma Exchange (TPE): 5% Al bumin(3) liter(s) Pre/Yulisa-Procedural Medication Calcium Gluconate 3 gm(s) Indication for Procedure: Historical DSA Planned Apheresis Schedule: QD x3 Subjective: No acute events - commented on urticaria with last TPE. Patient Active Problem List Diagnosis DM (diabetes mellitus) (HCC) HTN (hypertension) Anemia Hypothyroid Focal segmental glomerulosclerosis ESRD on peritoneal dialysis (HCC) Hyperkalemia Fever, unspecified fever cause Iron deficiency anemia, unspecified iro n deficiency anemia type Shortness of breath Fatty liver Abnormal liver diagnostic imaging Lethargy Hypertensive urgency Encephalopathy acute Seizure disorder Liver masses End stage renal disease (HCC) Kidney transplant status, cadaveric S/P kidney transplant Hypertensive urgency Fluid overload Medications Medications Prior to Admission Medication Sig Dispense Refill Last Dose aspirin 81 MG EC tablet Take 81 mg by m outh daily. 01/19/2020 at Unknown time calcium carbonate (TUMS EX) 300 mg Chew Take 3 tablets by mouth daily. 01/19/2020 at Unknown time carvedilol (COREG) 25 MG tablet Take 1 tablet (25 mg total) by mouth 2 (two) times daily. 60 tablet 11 01/19/2020 at Unknown time cholecalciferol, vitamin D3, 5,000 unit Tab Take 5,000 Units by mouth daily. 01/19/2020 at Unknown curtis e fenofibrate (LOFIBRA) 54 MG tablet Take 54 mg by mouth daily. 01/19/2020 at Unknown time fluticasone (FLONASE) 50 mcg/actuation nasal spray 2 sprays by Nasal route daily. 01/19/2020 at Unkno wn time insulin glargine (BASAGLAR KWIKPEN U-10 0 INSULIN) 100 unit/mL (3 mL) InPn Inject 30 Units subcutaneous ly nightly . 01/19/2020 at Unknown time levETIRAcetam (KEPPRA) 500 MG tablet Ta ke 500 mg by mouth 2 (two) times daily. 01/19/2020 at Unkno wn time losartan (COZAAR) 50 MG tablet Take 50 mg by mouth 2 (two) times daily. 01/19/2020 at Unknown curtis e NIFEdipine (ADALAT CC) 60 MG 24 hr tabl et Take 1 tablet (60 mg total) by mouth 2 (two) times daily. 60 tablet 11 01/19/2020 at Unknown time pantoprazole (PROTONIX) 40 MG tablet Ta ke 40 mg by mouth daily. 01/19/2020 at Unknown time PARoxetine (PAXIL) 20 MG tablet Take 20 mg by mouth every morning.2 01/19/2020 at Unknown time pravastatin (PRAVACHOL) 40 MG tablet Ta ke 1 tablet (40 mg total) by mouth nightly. 30 tablet 11 01/19/2020 at Unknown time Scheduled Meds: vkzkvnoguzdgt739 mg Oral Once jzinybbxwS39 mg Oral BID 25 mg at 0 01/24/20 0923 lwjypbthxviw24 mg Mouth/Throat TID after meals 10 mg at 01/24/20 1241 cajirttishAEWFY14 mg Intravenous On ce epoetin alejandro-epbx10,000 Units Subcu taneous Once per day on Fri 10,000 Units at 01/21/20 203 4 xdyxpsykkq18 mg Oral Daily insulin kosgqvyp10 Units Subcutaneo us BID 10 Units at 01/24/20 09 kpeCESPJljlyp619 mg Oral BID 500 mg at 01/24/20 09 MZUIdxzcal75 mg Oral BID 60 mg at 0 01/24/20 09 cdtuxyawtpks59 mg Oral Daily 40 mg at 01/24/20 09 YQMkksvsel53 mg Oral Daily 20 mg at 01/24/20 1048 aaxlveOQPL61 mg Oral Daily 10 mg at 01/24/20 09 riTUXimab-pvvr (RUXIENCE) infusion3 75 mg/m2 Intravenous Once sodium chloride 0.9% (NS)10 mL Intr avenous Q8H 10 mL at 01/24/20 0539 sulfamethoxazole-sckihvdyhqxb65 mg of trimethoprim Oral Daily 80 mg of trimethoprim at 01/24/20 09 tacrolimus1.5 mg Oral Q12H ALT nqxYGLlxcuvslj953 mg Oral Once per day on Fri 450 mg at 01/24/20 09 Continuous Infusions: sodium chloride 0.9% (NS) PRN Meds:. acetaminophen-codeine calcium gluconate dextrose glucagon insulin regular labetalol simethicone sodium chloride 0.9% (NS) sodium chloride 0.9% (NS) Allergy Allergies Allergen Reactions Lipitor [Atorvastatin] Muscle cramps, able to tolerate prav astatin Physical Exam Vitals: BP/MAP: BP: 155/78 MAP (mmHg): 104, Pulse: Heart Rate: 77,T emperature: Temp: 98.2 F (36.8 C) GEN: Awake, alert. CV: Rhythm:Regular, Rate:Regular CHEST: Clear EXT: no edema ACCESS: No erythema/exudate Labs CBC: Recent Labs Lab(s) Units 01/24/20 0536 01/23/20 0412 01/22/20 0331 WBC K/L 8.2 8.2 12.5* HGB GM/DL 7.5* 7.2* 7.9* HCT % 24.1* 22.6* 24.6* PLT K/CU MM 171 161 189 COAG: Recent Labs Lab(s) Units 01/20/20 2129 PROTIME seconds 13.7 INR1.08 PTT seconds 28.4 CHEM: Recent Labs Lab(s) Units 01/24/20 1713 01/24/20 0536 01/23/20 1333 01/23/20 0412 01/22/20 [id number] CALCIUM mg/dL--8.5--8.6-- -- 7.3* < > 8.3* CAION mmol/L 1.18--1.09*--0.95* < >--< >-- BUN mg/dL--24*--27*- - --33* < > 37* CREATININE mg/dL--2.81*--4.44*-- --8.86* < > 13.34* BILITOT mg/dL-- -- -- -- -- -- -- --0.5 ALT U/L-- -- -- -- - - -- -- --12 AST U/L-- -- -- -- - - -- -- --18 < > = values in this interval not displ ayed. IMMUN: No results for input(s): IGG, IGM , IGA in the last 168 hours. A/P 1. Historical DSA - TPE immunomodulation in progress - this is the last planned procedure (#3). The Tra nsplant team will manage the line going forward. Attending signature: Alok Hernández Jr., MD Date/time: 01/24/2020, 6:21 PM TRANSFUSION SERVICE REPORT - SCAN (01/24/2020 6:01 PM CDT)Only the most recent of4 resultswithin the time period is included. Narrative Performed At This result has an attachment that is no t available. Calcium, Ionized (01/24/2020 5:13 PM CDT)Only the most recent of5 resultswithin the time period is included. Calcium, Ion 1.18 1.12 - 1.27 mmol/L [facility] pH, Blood 7.36 [facility] Specimen Blood Narrative Performed At Range 1.12 - 1.27 [facility] Performing Organization Address City/State/Zipcode Phone Number [facility] [address] [place] [address] CENTER Hepatitis A antibody, IgG (01/24/2020 5:36 AM CDT) Hep A IgG Reactive (A) Nonreactive [facility] Specimen Blood Narrative Performed At Director Of Photography ID - [facility] Performing Organization Address City/[facility]/Zipcode Phone Number [address] [address] CENTER HIV-1 Antigen with HIV-1/2 Antibody (01/24/2020 5:36 AM CDT) HIV-1 Antigen with HIV 1&2 Nonreactive Nonreactive [facility] Specimen Blood Narrative Performed At Director Of Photography ID - [facility] Performing Organization Address City/[facility] Phone Number [address] [address] CENTER Hepatitis C antibody (01/24/2020 5:36 AM CDT) Hepatitis C Ab Nonreactive Nonreactive [facility] Specimen Blood Narrative Performed At Director Of Photography ID - [facility] Performing Organization Address City/[facility] Cent[facility]ode Phone Number [address] [address] CENTER Coccidioides antibodies (01/24/2020 5:36 AM CDT) Coccidioides Ab,Id NEGATIVE [facility] Comment: INCORPORATED REFERENCE RANGE:NEGATIVE INTERPRETIVE CRITERIA: NEGATIVE: Antibody Not Detected POSITIVE: Antibody Detected The immunodiffusion (ID) procedure correlates kimberly th in sensitivity and clinical utility with the CF test. The ID test, which detects IgG directed to the "F" antigen, becomes positive within 4 weeks after infection and remains positive throughout clinically active disease. It is most useful in confirming the specificity of low CF titers, whe re line(s) of identity are formed with reference antisera. Positive ID reactions are diagnostic f or coccidioidomycosis and usually indicate active o r recent disease and remain detectable for up to 1 year thereafter. Specimen Blood Narrative Performed At Performing Lab [facility] *QDID OBMedical Infectious Di [facility] [address] [place] [address] Brennon Nazario MD Performing Organization Address [facility] Cent[facility]ome Phone Number [place] [address] [facility] [address] [facility] Cryptococcal antigen (01/24/2020 5:36 AM CDT) Cryptococcal Antigen, Serum Negative Negative, Interferen ce [facility] Specimen Blood Performing Organization Address [facility] Centercode Phone Number [address] [address] CENTER Toxoplasma gondii antibody, IgG (01/24/2020 5:36 AM CDT) TOXOPLASMA GONDII IGG QUANTITATIVE 7.0 <10.0 IU/mL [facility] Specimen Blood Narrative Performed At Toxoplasma Gondii IgG Result Interpretat ion: [facility] </= 9.9 IU/mLNormal 10-11 IU/mLEquivocal >/= 12 IU/mL Positive Performing Organization Address [facility] Phone Number [address] [address] [place] Prepare plasma (01/23/2020 11:54 PM CDT) Unit ABO O Pos SAFETRACE TX UNIT NUMBER [id number] SAFETRACE TX Status TX_TIMEINCHART SAFETRACE TX Blood Bank Product FFP SAFETRACE [place] PRODUCT CODE [id number] SAFETRACE TX Unit ABO O Pos SAFETRACE TX UNIT NUMBER [id number] SAFETRACE TX Status TX_TIMEINCHART SAFETRACE TX Blood Bank Product FFP SAFETRACE TX PRODUCT CODE [id number] SAFETRACE TX Unit ABO O Pos SAFETRACE TX UNIT NUMBER [id number] SAFETRACE TX Status TX_TIMEINCHART SAFETRACE TX Blood Bank Product FFP SAFETRACE [place] PRODUCT CODE [id number] SAFETRACE [place] Specimen Blood Performing Organization Address [facility] Phone Number [employer] [place] Plasma Exchange (01/23/2020 9:09 AM CDT) Narrative Performed At Celia English MD 01/23/20 208:28 PM CLINICAL PATHOLOGY APHERESIS PROCEDURE N SANA Chilel [id number] Consulting Physician: Amador Date of service: 01/23/2020 Access: Acute Catheter Access Site: [facility] Procedure: Therapeutic Plasma Exchange (TPE): 5% Al bumin (3) liter(s) Pre/Yulisa-Procedural Medication Calcium Gluconate 3 gm(s) Indication for Procedure: Historical DSA /renal transplant Planned Apheresis Schedule: QD x 3 Subjective: Patient feeling better today . She is still having some post op incision site pain and now also has generalized abdominal pain due to gas. She is expect ed to move to the floor today after TPE. Patient Active Problem List Diagnosis DM (diabetes mellitus) (HCC) HTN (hypertension) Anemia Hypothyroid Focal segmental glomerulosclerosis ESRD on peritoneal dialysis (HCC) Hyperkalemia Fever, unspecified fever cause Iron deficiency anemia, unspecified iro n deficiency anemia type Shortness of breath Fatty liver Abnormal liver diagnostic imaging Lethargy Hypertensive urgency Encephalopathy acute Seizure disorder Liver masses End stage renal disease (HCC) Kidney transplant status, cadaveric S/P kidney transplant Hypertensive urgency Fluid overload Medications Medications Prior to Admission Medication Sig Dispense Refill Last Dose aspirin 81 MG EC tablet Take 81 mg by m outh daily. 01/19/2020 at Unknown time calcium carbonate (TUMS EX) 300 mg Chew Take 3 tablets by mouth daily. 01/19/2020 at Unknown time carvedilol (COREG) 25 MG tablet Take 1 tablet (25 mg total) by mouth 2 (two) times daily. 60 tablet 11 01/19/2020 at Unknown time cholecalciferol, vitamin D3, 5,000 unit Tab Take 5,000 Units by mouth daily. 01/19/2020 at Unknown curtis e fenofibrate (LOFIBRA) 54 MG tablet Take 54 mg by mouth daily. 01/19/2020 at Unknown time fluticasone (FLONASE) 50 mcg/actuation nasal spray 2 sprays by Nasal route daily. 01/19/2020 at Unkno wn time insulin glargine (BASAGLAR KWIKPEN U-10 0 INSULIN) 100 unit/mL (3 mL) InPn Inject 30 Units subcutaneous ly nightly . 01/19/2020 at Unknown time levETIRAcetam (KEPPRA) 500 MG tablet Ta ke 500 mg by mouth 2 (two) times daily. 01/19/2020 at Unkno wn time losartan (COZAAR) 50 MG tablet Take 50 mg by mouth 2 (two) times daily. 01/19/2020 at Unknown curtis e NIFEdipine (ADALAT CC) 60 MG 24 hr tabl et Take 1 tablet (60 mg total) by mouth 2 (two) times daily. 60 tablet 11 01/19/2020 at Unknown time pantoprazole (PROTONIX) 40 MG tablet Ta ke 40 mg by mouth daily. 01/19/2020 at Unknown time PARoxetine (PAXIL) 20 MG tablet Take 20 mg by mouth every morning.2 01/19/2020 at Unknown time pravastatin (PRAVACHOL) 40 MG tablet Ta ke 1 tablet (40 mg total) by mouth nightly. 30 tablet 11 01/19/2020 at Unknown time Scheduled Meds: tajuhukrlbbro648 mg Oral Q6H YUNIER 65 0 mg at 01/23/20 0538 anticoagulant citrate dextrose solution A500 mL Apheresis Once vnjzhabsvH53 mg Oral BID 25 mg at 0 01/23/20 0841 ceFAZolin2 g Intravenous Pre-Op chlorhexidine Topical (Top) Once vcywcuwdoyka34 mg Mouth/Throat TID after meals 10 mg at 01/23/20 0841 epoetin alejandro-epbx10,000 Units Subcu taneous Once per day on Fri 10,000 Units at 01/21/20 203 4 xpkNJPGOlelou347 mg Oral BID 500 mg at 01/23/20 0841 PWPCcwlxxi27 mg Oral BID 60 mg at 0 01/23/20 0841 wzcxsuxcujro52 mg Oral Daily 40 mg at 01/23/20 0841 sodium chloride 0.9% (NS)500 mL Aph eresis Once sodium chloride 0.9% (NS)10 mL Intr avenous Q8H 10 mL at 01/23/20 0415 sulfamethoxazole-qmazyrrosolu72 mg of trimethoprim Oral Daily 80 mg of trimethoprim at 01/23/20 0841 tacrolimus1 mg Oral Q12H ALT 1 mg a t 01/23/20 0538 [START ON 01/24/2020] valGANciclovir 450 mg Oral Once per day on Fri Continuous Infusions: niCARdipine Stopped (01/22/20 1100) sodium chloride 0.9% (NS) sodium chloride 0.9% (NS) 1,000 mL ( 0600) PRN Meds:. dextrose glucagon hydrALAZINE HYDROmorphone insulin regular labetalol oxycodone sodium chloride 0.9% (NS) sodium chloride 0.9% (NS) Allergy Allergies Allergen Reactions Lipitor [Atorvastatin] Muscle cramps, able to tolerate prav astatin Physical Exam Vitals: BP/MAP: BP: (!) 155/99 MAP (mmHg): 114, Pulse: Heart Rate: 78,T emperature: Temp: 98.9 F (37.2 C) GEN: Awake, alert,oriented HEENT: Normal CV: Deferred CHEST: Deferred ABDOMEN: Deferred EXT: Unremarkable ACCESS: Good flow Labs CBC: Recent Labs Lab(s) Units 01/23/20 0412 01/22/20 0331 01/21/20 2146 01/21/20 1321 WBC K/L 8.2 12.5*--12.7* HGB GM/DL 7.2* 7.9* 8.2* 6.8* HCT % 22.6* 24.6* 25.7* 21.5* PLT K/CU MM 161 189--194 COAG: Recent Labs Lab(s) Units 01/20/20 2129 PROTIME seconds 13.7 INR1.08 PTT seconds 28.4 CHEM: Recent Labs Lab(s) Units 01/22/20 1306 01/22/20 1203 01/22/20 0331 01/21/20 1151 01/20/20 2129 CALCIUM mg/dL-- --7.3* 7.3* 8.3* CAION mmol/L 0.95* 0.93*--0.96* -- BUN mg/dL-- --33* 38* 37* CREATININE mg/dL-- --8.86* 1 3.51* 13.34* BILITOT mg/dL-- -- -- -- 0.5 ALT U/L-- -- -- --12 AST U/L-- -- -- --18 A/P 49 y.o. female undergoing TPE for histor ical DSA/renal transplant POD #2. This is procedure # 2 of 3 . The exchange was completed with Therapeutic Plasma Exchange (TPE): 5% Albumin (3) liter(s). No complications were noted. Final TPE w ill be performed tomorrow, 01/23. Attending signature: Celia English MD Date/time: 01/23/2020, 9:09 AM Prepare RBC (01/22/2020 11:54 PM CDT)Only the most recent of2 resultswithin the time period is included. Unit ABO O Pos SAFETRACE TX UNIT NUMBER [id number] SAFETRACE TX Status TX_TIMEINCHART SAFETRACE TX Blood Bank Product RED BLOOD CELLS SAFETRACE TX PRODUCT CODE [id number] SAFETRACE TX Unit ABO O Pos SAFETRACE TX UNIT NUMBER [id number] SAFETRACE TX Status READY SAFETRACE TX Blood Bank Product RED BLOOD CELLS SAFETRACE TX PRODUCT CODE [id number] SAFETRACE TX CROSSMATCH COMPATIBLE SAFETRACE TX CROSSMATCH COMPATIBLE SAFETRACE TX Performing Organization Address City/State/[facility]ome Phone Number [facility] [place] Plasma Exchange (01/22/2020 1:10 PM CDT) Narrative Performed At Jose Preston RN 01/22/2020 2:06 PM Lab Results Component Value Date GLUCOSE 185 (H) 01/22/2020 CALCIUM 7.3 (L) 01/22/2020 NA 135 (L) 01/22/2020 K 4.1 01/22/2020 CO2 22 01/22/2020 CL 103 01/22/2020 BUN 33 (H) 01/22/2020 CREATININE 8.86 (H) 01/22/2020 Lab Results Component Value Date WBC 12.5 (H) 01/22/2020 HGB 7.9 (L) 01/22/2020 HCT 24.6 (L) 01/22/2020 MCV 96.5 (H) 01/22/2020 PLT 189 01/22/2020 Pt completed TPE with 3L of FFP. Total 3 g of Calcium gluconate was given. No transfusion reactions occu rred throughout the procedure. VS stable. Report given to pr joann NAVARRO (Nikki). Jose Pretson RN Transfuse plasma (01/22/2020 12:44 PM CDT)XR chest 1 view portable / bedside (01/22/2020 3:52 AM CDT)Only the most recent of2 resultswithin the time period is included. Specimen Narrative Performed At FINAL REPORT GE RIS Chest one view. Clinical history: on bipap Comparison: Chest radiograph 05/17/2019. Technique: A single frontal view of the chest was obtained. Findings: There is a left IJ central venous cathet er with tip in the left brachiocephalic vein. The cardiac silhouette is enlarged. Ther e is pulmonary vascular congestion. There is is an opacity in th e lateral left lung base which may represent atelectasis/or pneum onia. A small left pleural effusion cannot be excluded. There is no pneumothorax. Signed: Aleks Chester MD Report Verified Date/Time:01/22/2020 03:57:15 Procedure Note Interface, External Ris In - 01/22/2020 4:00 AM CDT FINAL REPORT Chest one view. Clinical history: on bipap Comparison: Chest radiograph 05/17/2019. Technique: A single frontal view of the chest was obtained. Findings: There is a left IJ central venous cathet er with tip in the left brachiocephalic vein. The cardiac silhouette is enlarged. Ther e is pulmonary vascular congestion. There is is an opacity in th e lateral left lung base which may represent atelectasis/or pneum onia. A small left pleural effusion cannot be excluded. There is no pneumothorax. Signed: Aleks Chester MD Report Verified Date/Time: 01/22/2020 0 3:57:15 Performing Organization Address City/State/Zipcode Phone Number [facility] Vancomycin level, random (01/22/2020 3:31 AM CDT) Vancomycin Rm 25.5 ug/mL [facility] Specimen Blood Narrative Performed At Reference Range: No Normals [facility] Director Of Photography ID - WILI Julian Performing Organization Address City/[facility]/Zipcode Phone Number [address] [address] CENTER Hemoglobin and hematocrit (01/21/2020 9:46 PM CDT) Hemoglobin 8.2 (L) 11.2 - 15.7 GM/DL [facility] Hematocrit 25.7 (L) 34.1 - 44.9 % [facility] Specimen Blood Narrative Performed At Director Of Photography ID - [id number] [facility] Performing Organization Address City/State/Zipcode Phone Number [facility] [address] [place] [address] CENTER Transfuse Leuko-Red RBC (01/21/2020 9:06 PM CDT)Only the most recent of2 resultswithin the time period is included.Antibody identification (01/21/2020 5:02 PM CDT) ANTIBODY ID (ESTRELLA) UNID IgG SAFETRACE T X Antibody Consult SIGNED OUTComment: Nonspecific IgG [place] reactivity is detected. This is likely of limited clinical significance and an in vitro phenomenon only. If transfusion is required, crossmatch compatible RBCs will be selected. Electronic Signature: Dasha Sánchez MD Specimen Performing Organization Address City/State/Zipcode Phone Number [facility] [place] Prepare Leuko-Red RBC (01/21/2020 4:22 PM CDT) Unit ABO O Pos SAFETRACE TX UNIT NUMBER [id number] SAFETRACE TX Status READY SAFETRACE TX Blood Bank Product RED BLOOD CELLS [place]AFETRACE [place] PRODUCT CODE [id number] SAFETRACE [place] CROSSMATCH COMPATIBLE [place] Specimen Other Performing Organization Address City/[facility]ode Phone Number [facility] [place] US transplant kidney (01/21/2020 1:07 PM CDT) Specimen Narrative Performed At FINAL REPORT [facility] U/S, TRANSPLANT, KIDNEY CLINICAL HISTORY: s/p kidney transplant- assess vessels COMPARISON: Renal ultrasound 08/16/2016. TECHNIQUE: Real time grayscale, color, p ower, and spectral Doppler ultrasound of transplanted kidney was pe rformed. FINDINGS: Transplanted kidney: Location: Right lower abdomen. Length = 10.7 cm. Collecting system: No hydronephrosis. Cortical thickness: Normal. Echogenicity: Normal. Perirenal fluid collections: None. Other findings: None. Urinary bladder: Normally distended. Color Doppler: Normal Doppler flow throu ghout the renal allograft. Renal artery: Patent and appropriate dir ection of blood flow. Renal vein: Patent and appropriate direc tion of blood flow. Intrarenal resistive indices: 0.6 in the upper pole. 0.65 in the interpolar region. 0.71 in the lower pole. Normal acceleration times in the upper a nd lower poles, borderline acceleration time in the mid pole, possi carrillo artifactual, 0.08 seconds. Peak systolic velocities: Mid renal artery: 111 cm/s Anastomosis: 380 cm/s Iliac artery (pre-anastomosis): 127 cm/s Iliac artery (post-anastomosis): 140 cm/ s IMPRESSION: 1. Normal odonnell-scale evaluation of trans planted kidney. No hydronephrosis. 2. Patent renal artery and vein. Elevate d peak systolic velocity in the transplant renal artery anastomosis, 380 cm/s, concerning for stenosis, with otherwise unremarkable in trarenal waveforms. Signed: Lorie Leach MD Report Verified Date/Time:01/21/2020 13:44:09 Reading Location: [address] Radiolog Reading Room Procedure Note Interface, External Ris In - 01/21/2020 1:46 PM CDT FINAL REPORT U/S, TRANSPLANT, KIDNEY CLINICAL HISTORY: s/p kidney transplant- assess vessels COMPARISON: Renal ultrasound 08/16/2016. TECHNIQUE: Real time grayscale, color, p ower, and spectral Doppler ultrasound of transplanted kidney was pe rformed. FINDINGS: Transplanted kidney: Location: Right lower abdomen. Length = 10.7 cm. Collecting system: No hydronephrosis. Cortical thickness: Normal. Echogenicity: Normal. Perirenal fluid collections: None. Other findings: None. Urinary bladder: Normally distended. Color Doppler: Normal Doppler flow throu ghout the renal allograft. Renal artery: Patent and appropriate dir ection of blood flow. Renal vein: Patent and appropriate direc tion of blood flow. Intrarenal resistive indices: 0.6 in the upper pole. 0.65 in the interpolar region. 0.71 in the lower pole. Normal acceleration times in the upper a nd lower poles, borderline acceleration time in the mid pole, possi carrillo artifactual, 0.08 seconds. Peak systolic velocities: Mid renal artery: 111 cm/s Anastomosis: 380 cm/s Iliac artery (pre-anastomosis): 127 cm/s Iliac artery (post-anastomosis): 140 cm/ s IMPRESSION: 1. Normal odonnell-scale evaluation of trans planted kidney. No hydronephrosis. 2. Patent renal artery and vein. Elevate d peak systolic velocity in the transplant renal artery anastomosis, 380 cm/s, concerning for stenosis, with otherwise unremarkable in trarenal waveforms. Signed: Lorie Leach MD Report Verified Date/Time: 01/21/2020 1 3:44:09 Reading Location: [address] Radiolog y Reading Room Performing Organization Address City/[facility]/Zipcode Phone Number [facility] Potassium-Stat Lab (01/21/2020 11:51 AM CDT) Potassium 4.4 3.6 - 5.5 meq/L [facility] Specimen Blood, Arterial Narrative Performed At Only if arterial line present. [facility] Performing Organization Address City/[facility] Centercode Phone Number [address] [address] [place] Sodium Na-Stat Lab (01/21/2020 11:51 AM CDT) Sodium 135 (L) 136 - 145 meq/L [facility] Specimen Blood, Arterial Narrative Performed At Only if arterial line present. [facility] Performing Organization Address [facility]/Zipcode Phone Number [address] [address] [place] Glucose-Stat Lab (01/21/2020 11:51 AM CDT) Glucose 170 (H) 70 - 110 mg/dL [facility] Specimen Blood, Arterial Narrative Performed At Only if arterial line present. [facility] Performing Organization Address City/[facility]/Zipcode Phone Number [place] [phone] [place] [address] [place] HGB/HCT (H&H)-Stat Lab (01/21/2020 11:51 AM CDT) Hemoglobin 7.3 (L) 12.0 - 15.0 g/dL [facility] Hematocrit 21.0 (L) 36.0 - 45.0 % [facility] Specimen Blood, Arterial Narrative Performed At Only if arterial line present. [facility] Performing Organization Address [facility]/Zipcode Phone Number [address] [address] [place] Platelet count (01/21/2020 11:51 AM CDT) Platelets [facility] Comment: [facility]ENTER Specimen contaminated after retesting BA# [id number] This is a corrected result. Previous result was 186 K/CU MM on 01/21/2020 at 1201 CDT Specimen Blood Narrative Performed At Director Of Photography ID - [id number] [facility] [place] Performing Organization Address [facility] Centercome Phone Number [address] [address] [place] Blood gas, arterial (01/21/2020 11:51 AM CDT) pH, Arterial 7.34 (L) 7.35 - 7.45 [facility] pCO2, Arterial 42 35 - 45 mmHg [facility] [facility] pO2, Arterial 137 (H) 80 - 90 mmHg [facility] O2 Sat, Arterial 98.6 (H) 96.0 - 97.0 % [facility] HCO3, Arterial 22 21 - 29 mmol/L [facility] Base Excess, Arterial -3.5 (L) -2.0 - 3.0 mmol/L [facility] Patient Temperature 37.2 C [facility] FIO2 40.0 % [facility] Specimen Blood, Arterial Narrative Performed At Only if arterial line present. [facility] Performing Organization Address City/State/Zipcode Phone Number [address] [address] CENTER Anaerobic culture (01/21/2020 11:45 AM CDT) Result No anaerobes isolated [facility] Specimen Tissue Performing Organization Address City/[facility]/Zipcode Phone Number [address] [address] CENTER Surgically obtained culture + gram stain (01/21/2020 11:45 AM CDT) Result <1+ Same organism has been i solated from cultures(s) of the same body site and collection date. Repeat identification and susceptibility testing performed only after consultation with the clinical microbiology laboratory. (A) [facility] Comment: MEDICAL CENTER Refer to previous culture of * - Staphlococcus epidermidis Gram Stain Result 1+ WBCs [facility] Gram Stain Result No organisms seen [facility] Specimen Tissue Performing Organization Address [facility] Phone Number [address] [address] CENTER Type and screen, automated (01/20/2020 9:29 PM CDT) ABO/RH AUTOMATED (BEAKER) O POSITIVE [facility] Ab Scrn POSITIVEComment: Screen [facility] on Echo 1 was 0 ? 0 (3+ MEDICAL CENTER control); Director Of Photography DLR reviewed it as 0 0 0 3. But previous chopping machine operator BJN put it on Echo 2 as ? ? 1 3 or Positive. Specimen Blood Performing Organization Address City/[facility] Centercode Phone Number [address] [address] aPTT (01/20/2020 9:29 PM CDT) PTT 28.4 22.5 - 36.0 seconds [facility] Specimen Blood Performing Organization Address [facility] Centercode Phone Number [place] [phone] [place] [address] CENTER Prothrombin time/INR (01/20/2020 9:29 PM CDT)Only the most recent of2 results within the time period is included. Protime 13.7 11.9 - 14.2 seconds [facility] INR 1.08 <=5.90 [facility] Specimen Blood Narrative Performed At Effective 10/07/2018: PT Reference Range [facility] Change New: 11.9-14.2Previous: 11.7-14.7 RECOMMENDED COUMADIN/WARFARIN INR THERAPY RANGES STANDARD DOSE: 2.0-3.0Includes: PROPHYLAXIS for venous thrombosis, systemic embolization; TREATMENT for venous thrombosis and/or pulmonary embolus. HIGH RISK: Target INR is 2.5-3.5 for patients wiht mechanical heart valves. Performing Organization Address City/[facility] Centercode Phone Number [address] [address] [place] [address] chest without IV contrast (01/20/2020 7:12 PM CDT) Specimen Narrative Performed At FINAL REPORT [employer] CLINICAL INDICATION: Unlisted reason for exam COMPARISON: 02/20/2018 Multiple axial images of the chest were performed without IV contrast. This exam was performed according to our departmental dose-optimization program, which include s automated exposure control, adjustment of the mA and/or kV according to patient size and/or use of the iterative reconstruction techniqu e. FINDINGS: Lung parenchyma: There is a region of de pendent groundglass opacity in the right lower lobe. Curvilinear opa city in the left greater than right lung bases suggests atelectasis or scarring. The lungs are otherwise clear. Pleural effusion: None. Pneumothorax: None. Tracheobronchial tree: No significant fi ndings. Pulmonary vasculature: No significant fi ndings. Cardiac contours and great vessels: Card iomegaly. Atherosclerotic calcification of the coronary arteries, aorta and great vessels arising from the arch. Mediastinum: No significant findings. Lymph Nodes: No adenopathy in the medias tinum or pascual. Skeleton: No acute abnormality. IMPRESSION: Dependent groundglass opacity in the rig ht lower lobe probably reflects atelectasis though pneumonitis, including the possibility of viral infection, should be excluded clin ically. If of further clinical concern a repeat, prone CT ches t can be considered. Cardiomegaly. Signed: Juaquin Hook MD Report Verified Date/Time:01/20/2020 20:20:02 Procedure Note Interface, External Ris In - 01/20/2020 8:23 PM CDT FINAL REPORT CLINICAL INDICATION: Unlisted reason for exam COMPARISON: 02/20/2018 Multiple axial images of the chest were performed without IV contrast. This exam was performed according to our departmental dose-optimization program, which include s automated exposure control, adjustment of the mA and/or kV according to patient size and/or use of the iterative reconstruction techniqu e. FINDINGS: Lung parenchyma: There is a region of de pendent groundglass opacity in the right lower lobe. Curvilinear opa city in the left greater than right lung bases suggests atelectasis or scarring. The lungs are otherwise clear. Pleural effusion: None. Pneumothorax: None. Tracheobronchial tree: No significant fi ndings. Pulmonary vasculature: No significant fi ndings. Cardiac contours and great vessels: Card iomegaly. Atherosclerotic calcification of the coronary arteries, aorta and great vessels arising from the arch. Mediastinum: No significant findings. Lymph Nodes: No adenopathy in the medias tinum or pascual. Skeleton: No acute abnormality. IMPRESSION: Dependent groundglass opacity in the rig ht lower lobe probably reflects atelectasis though pneumonitis, including the possibility of viral infection, should be excluded clin ically. If of further clinical concern a repeat, prone CT ches t can be considered. Cardiomegaly. Signed: Juaquin oHok MD Report Verified Date/Time: 01/20/2020 2 0:20:02 Performing Organization Address City/State/Zipcode Phone Number GE RIS Body fluid cell count with differential (01/20/2020 6:20 PM CDT) Appearance Clear Clear [facility] Color Straw Colorless, Straw [facility] RBCs 14 (H) <=1 /cu mm [facility] Adjusted WBC Count 40 (H) <=5 /cu mm [facility] Lining Cells 0 <=1 /cu mm [facility] % Segs 28 % [facility] % Lymphs 8 % [facility] % Monos 64 % [facility] % Eos 0 % [facility] % Baso 0 % [facility] Container Body Fluid EDTA Tube [facility] Specimen Body Fluid Narrative Performed At Sourceunknowncalled to RN at 1945 [facility] 01/20/20 no knowledge about it. Performing Organization Address City/State/Zipcode Phone Number [address] [address] CENTER Peritoneal Dialysis Effluent Culture (01/20/2020 6:18 PM CDT) Result <1+ Staphylococcus epidermidis C HI [facility] (A) [facility] [place] Gram Stain Result <1+ White blood cells seen [facility] Gram Stain Result No organisms seen [facility] Gram Stain Result From aerobic bottle only: gram [facility] positive cocci in clusters [facility] Gram Stain Result Comment: The previously [facility] reported result <1+ White blood [facility] cells seen is no longer being reported. Specimen Body Fluid - Peritoneal Dialysis Fluid Organism Antibiotic Method Susceptibility Staphylococcus epidermidis Clindamycin 0.25: Susceptible Staphylococcus epidermidis Erythromycin >=8: Resistant Staphylococcus epidermidis Linezolid 1: [place] sceptible Staphylococcus epidermidis Oxacillin <=0.2 5: Susceptible Staphylococcus epidermidis Rifampin <=0.5 : Susceptible Staphylococcus epidermidis Tetracycline <=1: Susceptible Staphylococcus epidermidis Trimethoprim + Sulfamethoxazole >=320: Resistant Staphylococcus epidermidis Vancomycin 1: [place] sceptible Performing Organization Address [facility]ercome Phone Number [facility] [address] [place] [address] CENTER ECG 12 lead (01/20/2020 6:11 PM CDT)Only the most recent of2 resultswithin the time period is included. Specimen Narrative Performed At Ventricular Rate 67 BPM GE MUSE Atrial Rate 67 BPM P-R Interval 204 ms QRS Duration 88 ms Q-T Interval 486 ms QTC Calculation(Bazett) 513 ms P [place] 60 degrees R [place] -16 degrees T [place] -12 degrees Normal sinus rhythm Prolonged QT Abnormal ECG When compared with ECG of 17-MAY-2019 18 :29, No significant change was found Confirmed by MD TY JOSEPH P ([id number]) on 0 8:32:08 AM Procedure Note Interface, External Ris In - 01/22/2020 8:32 AM CDT Ventricular Rate 67 BPM Atrial Rate 67 BPM P-R Interval 204 ms QRS Duration 88 ms Q-T Interval 486 ms QTC Calculation(Bazett) 513 ms P [place] 60 degrees R [place] -16 degrees T [place] -12 degrees Normal sinus rhythm Prolonged QT Abnormal ECG When compared with ECG of 17-MAY-2019 18 :29, No significant change was found Confirmed by MD TY JOSEPH P ([id number]) on 01/22/2020 8:32:08 AM Performing Organization Address [facility] Phone Number [employer]as[employer] SARS-CoV2/RT-PCR (Asymptomatic ONLY) (01/20/2020 6:03 PM CDT) SARS-COV2/RT-PCR Negative Not Detected, Negative, [facility] See external report for MEDICAL CENTER linked test SARS-COV-2 PERFORMING LAB BSC [facility] Specimen Other Narrative Performed At Negative results do not preclude SARS-CoV-2 [facility] infection and should not be used as the sole basis for patient management decisions. Negative results must be combined with clinical observations, patient history, and epidemiological information. A false negative result may occur if a specimen is improperly collected, transported or handled. The limit of detection for this assay is 250 copies/mL. This SARS CoV-2 test is a rapid, real-time RT-PCR test intended for the qualitative detection of nucleic acid from SARS-CoV-2 in a nasopharyngeal swab specimen collected from individuals suspected of COVID-19 by their healthcare provider. This test has not been Food and Drug Administration (FDA) cleared or approved and has been authorized by FDA under an Emergency Use Authorization (EUA). This EUA will be effective until the declaration that circumstances exist justifying the authorization of the emergency use of in vitro diagnostic tests for detection and/or diagnosis of COVID-19 is terminated under Section 564(b)(2) of the Act or the EUA is revoked under Section 564(g) of the Act. Fact Sheet for Healthcare Providers: https://www.[employer] | [employer]pay/Documents/Xpert%20Xpre ss%20SARS%20CoV-2/Fact%20Sheets/3023802%20SAR S-COV-2%20HEALTHCARE%20PROVIDERS%20FACT%20SHEE T.pdf Fact Sheet for Healthcare Patients: https://www.[employer] | [employer]/Documents/Xpert%20Xpre ss%20SARS%20CoV-2/Fact%20Sheets/3023801%20SAR S-COV-2%20PATIENT%20FACT%20SHEET.pdf Performing Laboratory: [address] [place] [address] Performing Organization Address City/State/Zipcode Phone Number [facility] MEDICAL [address] [place], [place] [id number] CENTER CRSMTCH SEROLOGY FV 3 (01/18/2020 5:51 PM CDT) [facility]-XM FV1 [facility] HLA TESTI NG CDC-XM FV1 [facility] RES Pos Historical [facility] HLA TE STING CDC-XMFV1 AHG/DTT AHG/HI [facility] HLA CAITLYN TING CDC-XM FV2 [facility] HLA TESTI NG CDC-XM FV2 AHG RES Pos Current [facility] HLA TE STING CDC-XMFV2 AHG/DTT AHG/HI [facility] HLA CAITLYN TING CDC-XM FV3 AHG AHG [facility] HLA TESTI NG CDC-XM FV3 AHG RES Pos Pre Txp [facility] HLA TE STING CDC-XMFV3 AHG/DTT AHG/HI [facility] HLA CAITLYN TING Crsmtch Serology FV 3 DONOR CDC CROSSMATCH RESULT: NEGA TIVE [facility] HLA TESTING Comment POSITIVE RESULTS LIKELY DUE TO IGM INTER FERENCE BASED ON NEGATIVE FLOW RESULTS UNOS ID [id number] [facility] HLA TESTI NG Donor Name [id number], DD-IMPORT [facility] HLA TE STING Specimen Blood Narrative Performed At Disclaimer: [facility] HLA TESTING This test was developed and its performance characteri stics determined by the [facility] Laboratory. It has not been amy red or approved by the U.S. Food and Drug Administration. The FDA has determined that such clearance or approval is not nece ssary. This test is used for clinical purposes. It should not be r egarded as investigational or for research. This laboratory is ce rtified under the Clinical Laboratory Improvement Amendments o f 1988 (CLIA-88) as qualified to perform high complexity clin ical laboratory testing. Performing Organization Address City/State/Zipcode Phone Number [facility] HLA TESTING [address] [place], [place]: [place] [address] [id number], CLIA#[id number] CAP#[id number] UNOS#[id number] CRSMTCH FLOW 3 SERUM (01/18/2020 5:51 PM CDT) T-FXM Serum1 T(IgG) [facility] HLA TESTI NG T-FXM Serum1 Res Neg Historical [facility] HLA TEST ING B-FXM Serum1 B(IgG) [facility] HLA TESTI NG B-FXM Serum1 Res Neg Historical [facility] HLA TEST ING T-FXM Serum2 T(IgG) [facility] HLA TESTI NG T-FXM Serum2 Res Neg Current [facility] HLA TEST ING B-FXM Serum2 B(IgG) [facility] HLA TESTI NG B-FXM Serum2 Res Neg Current [facility] HLA TEST ING T-FXM Serum3 T(IgG) [facility] HLA TESTI NG T-FXM Serum3 Res Neg Pre Txp [facility] HLA TEST ING B-FXM Serum3 B(IgG) [facility] HLA TESTI NG B-FXM Serum3 Res Neg Pre Txp [facility] HLA TEST ING Crsmtch Flow Comment DONOR FLOW CROSSMATCH [facility] HLA TESTING RESULT: NEGATIVE UNOS ID [id number] [facility] HLA TESTI NG Donor Name [id number], DD-IMPORT [facility] HLA TE STING Specimen Blood Narrative Performed At Disclaimer: [facility] HLA TESTING This test was developed and its performance characteri stics determined by the [facility] Laboratory. It has not been amy red or approved by the U.S. Food and Drug Administration. The FDA has determined that such clearance or approval is not nece ssary. This test is used for clinical purposes. It should not be r egarded as investigational or for research. This laboratory is ce rtified under the Clinical Laboratory Improvement Amendments o f 1988 (CLIA-88) as qualified to perform high complexity clin ical laboratory testing. Performing Organization Address City/[facility] Centercode Phone Number [facility] HLA TESTING ONE [facility] [place], [place]: [place] [address] [id number], CLIA#[id number] CAP#[id number] UNOS#[id number] RHYTHM STRIP - SCAN (05/19/2019 4:00 PM CARDIAC NURSE) Narrative Performed At This result has an attachment that is no t available. Sputum Culture + Gram Stain (05/18/2019 12:19 PM CARDIAC NURSE) Result 3+ Normal respiratory dawna [facility] Gram Stain Result <1+ WBCs [facility] Gram Stain Result 0-5 epithelial cells [facility] Gram Stain Result <1+ gram variable coccobacilli [facility] Specimen Sputum - Expectorated Performing Organization Address City/State/Zipcode Phone Number [facility] [address] [place] [address] brain without IV contrast (05/17/2019 5:00 PM CARDIAC NURSE) Specimen Narrative Performed At FINAL REPORT [employer] CT, BRAIN, WITHOUT IV CONTRAST INDICATION: headache TECHNIQUE: Noncontrast axial imaging was obtained from the vertex to the skull base. Axial images were recons tructed using a bone algorithm. DOSE REDUCTION: Dose modulation, iterati ve reconstruction, and/or weight-based adjustment of the mA/kV was utilized to reduce the radiation dose to as low as reasonably a chievable. COMPARISON: None. FINDINGS: Intracranial: No intracranial hemorrhage or ab normal extra-axial collection. No evidence of acute territo rial infarct. No mass effect. No hydrocephalus. Osseous structures: No fracture. No susp icious lesion. Paranasal sinuses and mastoid air cells: No evidence of sinusitis. Mastoids are clear. Orbital contents: Globes are intact. IMPRESSION: No acute intracranial hemorrhage or mass effect. If there is persistent clinical concern for intracranial pathology, MR examination is recommended for furthe r characterization. Signed: Tiffanie Browning MD Report Verified Date/Time:05/17/2019 17:07:10 Procedure Note Interface, External Ris In - 05/17/2019 5:09 PM CARDIAC NURSE FINAL REPORT CT, BRAIN, WITHOUT IV CONTRAST INDICATION: headache TECHNIQUE: Noncontrast axial imaging was obtained from the vertex to the skull base. Axial images were recons tructed using a bone algorithm. DOSE REDUCTION: Dose modulation, iterati ve reconstruction, and/or weight-based adjustment of the mA/kV was utilized to reduce the radiation dose to as low as reasonably a chievable. COMPARISON: None. FINDINGS: Intracranial: No intracranial hemorr michele or abnormal extra-axial collection. No evidence of acute territo rial infarct. No mass effect. No hydrocephalus. Osseous structures: No fracture. No susp icious lesion. Paranasal sinuses and mastoid air cells: No evidence of sinusitis. Mastoids are clear. Orbital contents: Globes are intact. IMPRESSION: No acute intracranial hemorrhage or mass effect. If there is persistent clinical concern for intracranial pathology, MR examination is recommended for furthe r characterization. Signed: Tiffanie Browning MD Report Verified Date/Time: 05/17/2019 1 7:07:10 Performing Organization Address City/State/Zipcode Phone Number RIS PT/PTT (05/17/2019 4:47 PM CARDIAC NURSE) Protime 13.4 11.9 - 14.2 seconds [facility] INR 1.1 <=5.9 [facility] PTT 26.4 22.5 - 36.0 seconds [facility] Specimen Blood Narrative Performed At Effective 10/07/2018: PT Reference Range [facility] Change New: 11.9-14.2Previous: 11.7-14.7 RECOMMENDED COUMADIN/WARFARIN INR THERAPY RANGES STANDARD DOSE: 2.0-3.0Includes: PROPHYLAXIS for venous thrombosis, systemic embolization; TREATMENT for venous thrombosis and/or pulmonary embolus. HIGH RISK: Target INR is 2.5-3.5 for patients wiht mechanical heart valves. Performing Organization Address [facility] Centercode Phone Number [address] [address] CENTER Troponin I (05/17/2019 4:47 PM CARDIAC NURSE) Troponin I 0.01 0.00 - 0.03 ng/mL [facility] Specimen Blood Narrative Performed At Troponin I (TnI) levels must be interpreted [facility] in the context of the presenting symptoms and the clinical findings. Elevated TnI levels indicate myocardial damage, but are not specific for ischemic heart disease. Elevated TnI levels are seen in patients with other cardiac conditions (including myocarditis and congestive heart failure), and slight TnI elevations occur in patients with other conditions, including sepsis, renal failure, acidosis, acute neurological disease, and persistent tachyarrhythmia. Performing Organization Address [facility] Centercode Phone Number [address] [address] CENTER B-type Natriuretic Factor (BNP) (05/17/2019 4:47 PM CARDIAC NURSE) BNP 211 (H) 0 - 100 pg/mL [facility] Specimen Blood Performing Organization Address [facility] Centercode Phone Number [address] [address] [place] Hepatic function panel (03/31/2019 3:06 PM CARDIAC NURSE) Protein, Total 7.8 6.0 - 8.3 gm/dL [facility] Albumin 4.0 3.5 - 5.0 g/dL [facility] Total Bilirubin 0.6 0.2 - 1.2 mg/dL [facility] Bilirubin, Direct 0.2 0.1 - 0.5 mg/dL [facility] Alkaline Phosphatase 59 40 - 150 U/L [facility] AST 15 5 - 34 U/L [facility] ALT 16 6 - 55 U/L [facility] Specimen Blood Performing Organization Address City/State/Zipcode Phone Number [facility] [address] [place] [address] abdomen with/without contrast (03/16/2019 1:08 PM CARDIAC NURSE) Specimen Narrative Performed At FINAL REPORT [employer] CT of the abdomen, with and without cont rast Clinical History:Liver lesions, scre ening for HCC, liver mass protocol Technique: CT of the abdomen is performe d before and after intravenous contrast administration. This exam was performed according to our departmental dose optim ization program which includes automated exposure control, adj ustment of the mA and/or kV according to patient's size and/or use o f iterative reconstructive technique. Comparison Film:September 28, 2018, December 17, 2017, October 29, 2017, March 19, 2017 Discussion: Visualized lung bases are unremarkable. Liver is enlarged, and measures 23.5 cm sagittally. There are two hypervascular nodular foci at the hepati c dome, each measuring approximately 1.7 cm, without significan t interval change when compared to multiple prior exams. A thir d hypervascular focus is seen in segment 4 anteriorly, measuring 1.3 c m. There is also a stable 1.1 cm hypervascular nodule in segment 6. A peripheral hypervascular focus in the right lobe is stable as wel l. No definite washout is identified. There is no new lesion. No b iliary ductal dilatation. Status post cholecystectomy. Hepatic vas culature is patent. Main portal vein measures 14 mm. The spleen is mildly enlarged measuring 13.5 cm sagittally. The pancreas, adrenal glands are unremarkabl e. Kidneys are atrophic, no mass, hydroneph rosis or radiopaque stone. No evidence of bowel obstruction. There is a small amount of ascites. A peritoneal dialysis catheter is presen t. Osseous structures demonstrate mild dege nerative changes. Impression: Hepatosplenomegaly. Stable enhancing foc i in liver. Atrophic [place] kidneys. Small amount of ascites. Signed: Meghann Hood MD Report Verified Date/Time:03/16/2019 17:50:59 Reading Location: [facility] B1 [id number] [facility] Reading Room Procedure Note Interface, External Ris In - 03/16/2019 5:53 PM CARDIAC NURSE FINAL REPORT CT of the abdomen, with and without cont rast Clinical History: Liver lesions, screen ing for HCC, liver mass protocol Technique: CT of the abdomen is performe d before and after intravenous contrast administration. Th is exam was performed according to our departmental dose optim ization program which includes automated exposure control, adj ustment of the mA and/or kV according to patient's size and/or use o f iterative reconstructive technique. Comparison Film: September 28, 2018, December, October 29, 2017, March 19, 2017 Discussion: Visualized lung bases are unremarkable. Liver is enlarged, and measures 23.5 cm sagittally. There are two hypervascular nodular foci at the hepati c dome, each measuring approximately 1.7 cm, without significan t interval change when compared to multiple prior exams. A thir d hypervascular focus is seen in segment 4 anteriorly, measuring 1.3 c m. There is also a stable 1.1 cm hypervascular nodule in segment 6. A peripheral hypervascular focus in the right lobe is stable as wel l. No definite washout is identified. There is no new lesion. No b iliary ductal dilatation. Status post cholecystectomy. Hepatic vas culature is patent. Main portal vein measures 14 mm. The spleen is mildly enlarged measuring 13.5 cm sagittally. The pancreas, adrenal glands are unremarkabl e. Kidneys are atrophic, no mass, hydroneph rosis or radiopaque stone. No evidence of bowel obstruction. There is a small amount of ascites. A peritoneal dialysis catheter is presen t. Osseous structures demonstrate mild dege nerative changes. Impression: Hepatosplenomegaly. Stable enhancing foc i in liver. Atrophic [place] kidneys. Small amount of ascites. Signed: Meghann Hood MD Report Verified Date/Time: 03/16/2019 1 7:50:59 Reading Location: [facility] [id number] [facility] Reading Room Performing Organization Address City/State/Zipcode Phone Number [employer] 2D Echo W/Doppler(CW/PW/Color) (02/24/2019) Narrative Performed At This result has an attachment that is no t available. after 01/31/2019 Insurance Payer Benefit Plan / Group Subscriber ID Type Phone A ddress MEDICARE MEDICARE A B xxxxxxxxxxx Medicare CDC REVIEW CDC REVIEW xxxxxxxx [address] [place], [place] [phone] Advance Directives For more information, please contact:[address] [phone] Code Status Date Activated Date Inactivated Comments Full Code 01/20/2020 5:21 PM 01/25/2020 2:26 PM This code status was determined by: Patient Full Code 05/17/2019 8:12 PM 05/18/2019 4:11 PM This code status was determined by: Patient Full Code 07/30/2018 11:56 AM 08/06/2018 4:09 PM This code status was determined by: Spouse Full Code 07/30/2018 9:33 AM 07/30/2018 11:56 AM This code status was determined by: Patient Full Code 02/10/2018 4:14 AM 02/21/2018 5:20 PM This code status was determined by: Patient
--- OUTSIDE RECORDS SUMMARY | 2020-02-01 17:13 | XMS REPORT | Continuity of Care Document ---
:1970 Author Organization [facility] t Address [address] [place] [address] Care Team Providers Name Role Phone Benny Han Primary Care Physician Unavailable Farhan Villela Attending Clinician Unavailable Rodolfo Langley MD Attending Clinician Alessio Yao MD Attending Clinician Rodolfo LANGLEY Attending Clinician Unavailable Eron NAVARRO Attending Clinician Unavailable CARLA SOUTH Attending Clinician Unavailable Carla South MD Attending Clinician Gavino Cheatham MD Attending Clinician Maria Teresa NAVARRO, R Attending Clinician Unavailable Rolando Brooks Attending Clinician Maribell RN Attending Clinician Unavailable Junior NAVARRO Attending Clinician Unavailable Al Attending Clinician Unavailable Dasha Balderas NP Attending Clinician Leslee Attending Clinician Unavailable Dutch SHIRLEY Attending Clinician Unavailable Yonny SHIRLEY Attending Clinician Unavailable Tiffanie Bolanos Attending Clinician Lucho Attending Clinician Unavailable Kahlil MA Attending Clinician Segundo REID Attending Clinician Fahad ACEVES Attending Clinician Unavailable Sanjuana Aceves MD. Attending Clinician Kinza David MD Attending Clinician Archana Lee MD Attending Clinician Wallace LEE Attending Clinician Unavailable Asif MISHRA, Gay Attending Clinician JARON CALDERON Attending Clinician Unavailable ROSA MARIA SANDERS Attending Clinician Unavailable TIFFANIE NAM Attending Clinician Unavailable BABAR Attending Clinician Unavailable MEGHANN WELSH Attending Clinician Unavailable KIRSTEN GOMEZ Attending Clinician Unavailable MARISABEL Attending Clinician Unavailable Cathryn ALMARAZ Attending Clinician Unavailable GAVINO CHEATHAM Admitting Clinician Unavailable KINZA DAVID Admitting Clinician Unavailable PIERRE BAILEY Admitting Clinician Unavailable ROBBIE FLORES Admitting Clinician Unavailable Wallace LEE Admitting Clinician Unavailable ROSEMARIE PALOMINO Admitting Clinician Unavailable BAABR Admitting Clinician Unavailable KIRSTEN GOMEZ Admitting Clinician Unavailable MARISABEL Admitting Clinician Unavailable WILLIAMS Admitting Clinician Unavailable Payers Payer Name Policy Policy Number Effective Expiration Source Type Date Date MEDICAREMEDICARE A xxxxxxxxxxx [facility] CDC REVIEWCDC xxxxxxxx [facility] REVIEW[facility] [id number] [facility] Problems Condition Condition Condition Status Onset Resolution Last Treating Co mments Source Name Details Category Date Date Treatment Clinician Date Hypertensi Hypertensi Disease Active [facility] ve urgency ve urgency 01-21 kes - 00:: Medical Baker Fluid Fluid Disease Active [facility] overload overload 01-21 - 00:: Medical Baker End stage End stage Disease Active [facility] renal renal 01-19[facility] - disease disease 00:00: Medical Baker Seizure Seizure Disease Active [facility] disorder disorder 10-17 - :: Medical Baker Liver Liver Disease Active [facility] masses masses 10-17 [facility] - 00:[facility]: Medical 00 [facility] Lethargy Lethargy Disease Active [facility] - 00:[facility]: Medical Baker Hypertensi Hypertensi Disease Active [facility] ve urgency ve urgency 3- [facility]anna kes - 00:00: Medical 00 Center Encephalop Encephalop Disease Active [facility] athy acute athy acute 3- [facility]anna kes - 00:00: Medical 00 Center Shortness Shortness Disease Active 2017-[address] [facility] [address] of breath of breath 06-07 [facility] - 00:00: Medical 00 Center Fatty Fatty Disease Active 2017-[address] [facility] liver liver 06-07 [facility] - 00:[facility]: Medical 00 Center Abnormal Abnormal Disease Active 2017-05 [facility] liver liver 06-07 [facility] - diagnostic diagnostic 00:00: Ks dical imaging imaging 00 Center Hyperkalem Hyperkalem Disease Active [facility] ia ia 12-16 [facility] - 00:00: Medical 00 Center Fever, Fever, Disease Active [facility] unspecifie unspecifie 12-16 [facility] - d fever d fever 00:00: Medical cause cause 00 Center Iron Iron Disease Active [facility] deficiency deficiency 12-16 [facility] - anemia, anemia, 00:00: Medical unspecifie unspecifie 00 Ce nter d iron d iron deficiency deficiency anemia anemia type type ESRD on ESRD on Disease Active Last [facility] peritoneal peritoneal 01-31 [facility] - dialysis dialysis 00:00: t & Plan: Med ical 00 ESRD-cont Center peritonea l dialysis -cont to lose weight until reach goal of 223-patie nt currently activated for kidney transplan t 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 Will continue to follow. DM DM Disease Active Last [facility] (diabetes (diabetes 1-30 Assessmen [facility] - mellitus) mellitus) 00:00: t & Plan: M edical 00 DM:-Cont Center current managemen t per Endocrine HTN HTN Disease Active Last [facility] (hypertens (hypertens 1-30 [facility] - ion) ion) 00:00: t & Plan: Medical 00 HTN;-well Center controlle d on current medicatio n and dietary regimen Anemia Anemia Disease Active Last [facility] St 06-10 Assessmen [facility] - 00:00: t & Plan: Medical 00 Anemia-Hg Center stable, cont current care with hg monitorin g and iron infusions per nephrolog y Kidney Kidney Disease Active [facility] transplant transplant [facility] - status, status, Medical cadaveric cadaveric Cent er Acute Acute Disease Resolve 2020-01-22 2020-01-22 MARGOT Aguirre post-opera post-opera d 01-20 00:00:00 17:18:29 [facility] - tive pain tive pain 00:00: Medi jennifer 00 Center Acute Acute Disease Resolve 2020-01-22 2020-01-22 [facility] respirator respirator d 01-20 00:00:00 17:18:31 [facility] - y y 00:00: Medical insufficie insufficie 00 Ce nter ncy ncy Acute Acute Disease Resolve 2020-01-22 2020-01-22 [facility] blood loss blood loss d 01-20 00:00:00 17:18:32 [facility] - anemia anemia 00:00: Medical 00 Center Allergies, Adverse Reactions, Alerts Allergy Allergy Status Severity Reaction(s) Onset Inactive Treating Comm ents Source Name Type Date Date Clinician Atorvast Propensi Active Muscle [facility] atin ty to 1-06 cramps, [facility] - adverse 00:00: able to Medical reaction 00 tolerate Center s pravastat in Family History Family Member Diagnosis Comments Start Date Stop Date Source Natural father Hypertension [facility] Natural mother Diabetes [facility] Natural mother Hypertension [facility] Natural sister Hematuria [facility] Social History Social Habit Start Date Stop Date Quantity Comments Source Sex Assigned At [facility] Alcohol Comment 2018-01-05 2018-01-05 1 DRINK 3-4 X PER CH I [facility] - 00:00:00 00:00:00 YEAR [facility] Smoking Status Start Date Stop Date Source Never smoker [facility] Medications Ordered Filled Start Stop Current Ordering Indication Dosage Frequency Signature Comments Components Source Medication Medication Date Date Medication? Clinician (SIG) Name Name predniSONE Yes 5mg QD Take 1 [facility] (DELTASONE) 01-26 tablet (5 Darin es - 5 MG tablet 00:00: mg total) M edical 00 by mouth Center daily. furosemide 2020- Yes 40mg QD Take [address] [facility] (LASIX) 40 01-26 tablet (40 Roxanna kes - MG tablet 00:00: 23:59 mg total) Me dical 00 :00 by mouth Center daily. tacrolimus 2020- Yes Take [address] [facility] (PROGRAF) 01-26 capsules [facility] - 0.5 MG 00:00: 23:59 (1.5 mg Medical capsule 00 :00 total) by Center mouth every morning AND 4 capsules (2 mg total) every evening. sulfamethox Yes 80mg{tr QD Take [address] azole-trime 01-25 imethop tablet (80 [facility] - thoprim 00:00: rim} mg of Medical (BACTRIM,SE 00 trimethopr Ce nter PTRA) im total) 400-80 mg by mouth per tablet daily. valGANciclo 2020- Yes 450mg [id number] Take [address] [facility] vir 01-25 [id number] tablet [facility] - (VALCYTE) 00:00: 23:59 3W (450 mg Medi jennifer 450 mg 00 :00 total) by Center tablet mouth 3 (three) times a week MON/FRI/ I. predniSONE 2019- No 10mg QD Take [address] [address] (DELTASONE) 01-25 tablets Luke s - 5 MG tablet 00:00: 00:00 (10 mg Med ical 00 :00 total) by Center mouth daily. pantoprazol 2019- No 40mg QD Take [address] [facility] e 01-24 by mouth [facility] - (PROTONIX) 10:27: 00:00 daily. Medi jennifer 40 MG 58 :00 Center tablet cholecalcif 2019- No 5000U QD Take 5,[address] micaela, 01-24- Units by [facility] - vitamin D3, 10:27: 00:00 mouth Medi jennifer 5,000 unit 58 :00 daily. Center Tab insulin 2019- No 30U QD Inject [address] glargine 9-15 09-15 Units [facility] - (BASAGLAR 10:27: 00:00 subcutaneo Iesha kc KWIKPEN 58 :[facility] U-100 nightly . INSULIN) 100 unit/mL (3 mL) InPn calcium 2019-0 2020- No 3{tbl} QD Take 3 [facility] carbonate -15 -15 tablets by Darin es - (TUMS EX) 10:27: 00:00 mouth Medica l 300 mg Chew 58 :00 daily. Center fluticasone 2019-0 2020- No 2{spray QD [address] (FLONASE) 01-24 } by Nasal [facility] - 50 10:27: 00:00 route Medical mcg/actuati 58 :00 daily. Center on nasal spray losartan 2019-0 2020- No 50mg Q.5D Take [address] (COZAAR) 50 01-24 by mouth 2 L ukes - MG tablet 10:27: 00:00 (two) Medica l 58 :00 times Center daily. levETIRAcet 2019-0 2020- No 500mg Q.5D Take [address] am (KEPPRA) 01-24-15 mg by [facility] - 500 MG 10:27: 00:00 mouth 2 Medical tablet 58 :00 (two) Center times daily. clotrimazol 2020-0 Yes 10mg Use as [facility] e (MYCELEX) -15 directed 1 Roxanna kes - 10 mg 00:00: tablet (10 Medica l marc 00 mg total) Center in the mouth or throat 3 (three) times daily with meals. pantoprazol 2020-0 Yes 40mg QD Take [address] [facility] e 9-15 tablet (40 [facility] - (PROTONIX) 00:00: mg total) Me dical 40 MG 00 by mouth Center tablet daily. PARoxetine 2020-0 Yes 20mg QD Take 1 [facility] (PAXIL) 20 9-15 tablet (20 Darin es - MG tablet 00:00: mg total) Med ical 00 by mouth Center every morning. levETIRAcet 2020-0 Yes 500mg Q.5D Take [address] [facility] am (KEPPRA) 9-15 tablet [facility] - 500 MG 00:00: (500 mg Medical tablet 00 total) by Center mouth 2 (two) times daily. fenofibrate 2020-0 Yes 54mg QD Take [address] (LOFIBRA) 9-15 tablet (54 [facility] - 54 MG 00:00: mg total) Medical tablet 00 by mouth Center daily. fluticasone Yes 2{spray QD [address] [address] propionate 9-15 } by Nasal [facility] - (FLONASE) 00:00: route Medical 50 00 daily. Center mcg/actuati on nasal spray insulin Yes 10U Q.5D Inject 10 [facility] glargine 9-15 Units [facility] - (BASAGLAR 00:00: subcutaneo Me dical KWIKPEN 00 usly 2 Center U-100 (two) INSULIN) times 100 unit/mL daily. (3 mL) InPn docusate Yes 100mg Take [address] [facility] sodium 9-15 capsule [facility] - (COLACE) 00:00: (100 mg Medica l 100 MG 00 total) by Center capsule mouth 2 (two) times daily as needed. mycophenola 2020- Yes 1000mg Q.5D Take [address] te 01-24 capsules [facility] - (CELLCEPT) 00:00: 23:59 (1,000 mg M edical 250 mg 00 :00 total) by Center capsule mouth 2 (two) times daily. carvediloL 2020- Yes 25mg Q.5D Take [address] (COREG) 25 01-24 tablet (25 Roxanna kes - MG tablet 00:00: 23:59 mg total) Me dical 00 :00 by mouth 2 Center (two) times daily. NIFEdipine 2020- Yes 60mg Q.5D Take [address] [facility] (ADALAT CC) 01-24 tablet (60 L ukes - 60 MG 24 hr 00:00: 23:59 mg total) Medical tablet 00 :00 by mouth 2 Center (two) times daily. pravastatin 2020- Yes 40mg QD Take [address] [facility] [address] (PRAVACHOL) 01-24-15 tablet (40 L ukes - 40 MG 00:00: 23:59 mg total) Medica l tablet 00 :00 by mouth Center daily. acetaminoph 2019- Yes 1{tbl} Take [address] en-codeine 01-24 tablet by Darin es - (TYLENOL 00:00: 23:59 mouth Medical #3) 300-30 00 :00 every 6 Center mg per (six) tablet hours as needed for up to 10 days. Max Daily Amount: 4 tablets furosemide 2019- 2020- No 40mg Q.5D Take [address] [address] (LASIX) 40 01-24 tablet (40 Roxanna kes - MG tablet 00:00: 00:00 mg total) Me dical 00 :00 by mouth 2 Center (two) times daily. tacrolimus 2019- No 2mg Q.5D Take [address] [facility] (PROGRAF) 01-24 capsules [facility] - 0.5 MG 00:00: 00:00 (2 mg Medical capsule 00 :00 total) by Center mouth 2 (two) times daily. tacrolimus 2020- No 1.5mg Q.5D Take [address] [facility] (PROGRAF) 01-24 capsules [facility] - 0.5 MG 00:00: 00:00 (1.5 mg Medical capsule 00 :00 total) by Center mouth 2 (two) times daily. omega-3 2019- No 120mg Q.5D Take [address] [facility] fatty 01-19 09-10 mg by [facility] - acids-vitam 17:15: 00:00 mouth 2 Me dical in E 1,000 19 :00 (two) Center mg Cap times daily . carvedilol 2020- No 25mg Q.5D Take [address] [facility] (COREG) 25 05-18 tablet (25 Roxanna kes - MG tablet 00:00: 00:00 mg total) Me dical 00 :00 by mouth 2 Center (two) times daily. NIFEdipine 2019- No 60mg Q.5D Take [address] [facility] (ADALAT CC) 05-18 tablet (60 L ukes - 60 MG 24 hr 00:00: 00:00 mg total) Medical tablet 00 :00 by mouth 2 Center (two) times daily. pravastatin 2019- 2020- No 40mg QD Take [address] [facility] (PRAVACHOL) 05-18 tablet (40 L ukes - 40 MG 00:00: 00:00 mg total) Medica l tablet 00 :00 by mouth Center nightly. cloNIDine 2019- 2020- No .1mg Q.5D Take 1 [facility] HCl 05-18 tablet [facility] - (CATAPRES) 00:00: 00:00 (0.1 mg Med ical 0.1 MG 00 :00 total) by Center tablet mouth 2 (two) times daily. guaiFENesin 2019- No 600mg Q.5D Take [address] (MUCINEX) 05-18 tablet [facility] - 600 mg 12 00:00: 00:00 (600 mg Medi jennifer hr tablet 00 :00 total) by Cente r mouth 2 (two) times daily. azithromyci 2019- No 500mg QD Take [address] n 05-18 tablet [facility] - (ZITHROMAX) 00:00: 23:59 (500 mg Me dical 500 MG 00 :00 total) by Center tablet mouth daily for 5 days. pravastatin 2018-05 No 40mg QD Take [address] (PRAVACHOL) 05-31 by mouth Darin es - 40 MG 13:40: 00:00 daily. Medical tablet 46 :00 Baker PARoxetine 2018-05- No 20mg QD Take [address] [facility] (PAXIL) 20 05-16 by mouth Luke s - MG tablet 00:00: 00:00 every Medica l 00 :00 morning. Baker atorvastati 2018-05- No 40mg Take [address] [facility] n (LIPITOR) 05-16 by mouth. Roxanna kes - 40 MG 00:00: 00:00 Medical tablet 00 :00 Baker fenofibrate 2019- No 54mg QD Take [address] (LOFIBRA) 09-08 by mouth [facility] - 54 MG 00:00: 00:00 daily. Medical tablet 00 :00 Baker levETIRAcet 2019- No 500mg Q.5D Take [address] am (KEPPRA) 08-06 tablet [facility] - 500 MG 00:00: 23:59 (500 mg Medical tablet 00 :00 total) by Center mouth 2 (two) times daily. losartan 2019- No 50mg Q.5D Take [address] [facility] (COZAAR) 50 08-06 tablet (50 L ukes - MG tablet 00:00: 23:59 mg total) Me dical 00 :00 by mouth 2 Center (two) times daily. carvedilol No 25mg Q.5D Take [address] [facility] (COREG) 25 3-28 07 tablet (25 Roxanna kes - MG tablet 00:00: 00:00 mg total) Me dical 00 :00 by mouth 2 Center (two) times daily. NIFEdipine 2017-05 No 60mg Q.5D Take [address] [facility] (ADALAT CC) 0-12 12 tablet (60 L ukes - 60 MG 24 hr 00:00: 23:59 mg total) Medical tablet 00 :00 by mouth 2 Center (two) times daily. ipratropium 2017-05 No 3mL Take [address] [address] -albuterol 02-15 by [facility] - (DUO-NEB) 00:00: 23:59 nebulizati M edical 0.5 mg-3 00 :00 on every 6 Cente r mg(2.5 mg (six) base)/3 mL hours as nebulizer needed for solution Wheezing for up to 360 days. aspirin 81 Yes 81mg QD Take [address] MG EC 1-18 by mouth [facility] - tablet 06:41: daily. [place] [id number] Center Immunizations Ordered Immunization Filled Immunization Date Status Commen ts Source Name Name Influenza Three-TIV PF 2015-07-[address] [facility] - 5+ YRS 00:00:00 [facility] Pneumococcal 2015-07-20 Completed [facility] - Polysaccharide 00:00:00 Medical Ce nter (Pneumovax) Vital Signs Vital Name Observation Time Observation Value Comments Source Systolic blood 2020-01-27 12:55:00 121 mm[Hg] [facility] Diastolic blood 2020-01-27 12:55:00 70 mm[Hg] [facility] Heart rate 2020-01-27 12:55:00 78 /min [facility] Body temperature 2020-01-27 12:55:00 36.61 Karen [facility] Respiratory rate 2020-01-27 12:55:00 16 /min [facility] Body height 2020-01-27 12:55:00 170.2 cm [facility] Body weight Measured 2020-01-27 12:55:00 93.486 kg [facility] BMI 2020-01-27 12:55:00 32.28 kg/m2 [facility] Oxygen saturation in 2020-01-25 08:02:00 97 /min [facility] Arterial blood by Medical Ce ntjamison Pulse oximetry Procedures Procedure Date / Time Performing Clinician Source Performed TACROLIMUS LEVEL 2020-01-27 08:39:00 TimCecile hilario [facility] AB SPECIFICITY CLASS I 2020-01-27 08:39:00 TimminCecile rosa [facility] AB SPECIFICITY CLASS II 2020-01-27 08:39:00 TimCecile hilario [facility] AB DONOR SPECIFIC, DSA 2020-01-27 08:39:00 TimCecile hilario [facility] FLOW PRA CLASS I WITH 2020-01-27 08:39:00 TimCecile hilario [facility] - REFLEX TO ANTIBODY Medical Cente r SPECIFICITY FLOW PRA CLASS II WITH 2020-01-27 08:39:00 TimCecile hilario [facility] - REFLEX TO ANTIBODY Medical Cente r SPECIFICITY CBC W/PLT COUNT & AUTO 2020-01-27 08:39:00 Cecile Langley [facility] (CELLAVISION MANUAL DIFF) 2020-01-27 08:39:00 Cecile Langley [facility] URINE CULTURE 2020-01-27 08:38:00 Cecile Langley [facility] COMPREHENSIVE METABOLIC 2020-01-27 08:38:00 Cecile Langley [facility] PHOSPHORUS 2020-01-27 08:38:00 Cecile Langley [facility] URINALYSIS W/ REFLEX 2020-01-27 08:38:[address] [facility] URINE CULTURE [facility] POCT-GLUCOSE METER 2020-01-25 08:04:00 Kayla [place], [facility] BASIC METABOLIC PANEL (7) 2020-01-25 05:15:00 Lisa Balderas garcia [facility] MAGNESIUM 2020-01-25 05:15:00 Lisa Balderas [facility] PHOSPHORUS 2020-01-25 05:15:00 Andrey [facility] CMV PCR, QUANTITATIVE 2020-01-25 05:15:00 Mandy Vazquez [facility] TACROLIMUS LEVEL 2020-01-25 05:15:00 Andrey Lisa Dasha [facility] CBC W/PLT COUNT & AUTO 2020-01-25 05:15:00 Lisa Balderaszabet brennon [facility] POCT-GLUCOSE METER 2020-01-24 22:07:00 Kayla South Abaer [facility] POCT-GLUCOSE METER 2020-01-24 18:22:00 [facility] PLASMA EXCHANGE 2020-01-24 18:19:55 Felicia Englishdith Migdalia [facility] TRANSFUSION SERVICE 2020-01-24 18:01:02 Provider, Whitley [facility] - SCAN [facility] CALCIUM, IONIZED 2020-01-24 17:13:00 Celia English [facility] POCT-GLUCOSE METER 2020-01-24 11:59:00 Kayla South Abaer [facility] POCT-GLUCOSE METER 2020-01-24 07:16:00 Kayla [place] Abaer [facility] BASIC METABOLIC PANEL (7) 2020-01-24 05:36:00 Andrey Lisa Senait zelaya [facility] MAGNESIUM 2020-01-24 05:36:00 [facility] [place] [facility] 2020-01-24 05:36:00 [facility] CRYPTOCOCCAL ANTIGEN 2020-01-24 05:36:00 Mirela Gibbons [facility] COCCIDIOIDES ANTIBODIES 2020-01-24 05:36:00 Edwige Mirela Z [facility] HEPATITIS A ANTIBODY, IGG 2020-01-24 05:36:00 KaycemichaelMirela burton [facility] HEPATITIS C ANTIBODY 2020-01-24 05:36:00 Mirela Gibbons [facility] HIV-1 ANTIGEN WITH 2020-01-24 05:36:00 EdwigeMirela [facility] L ukes - HIV-1/2 ANTIBODY [facility] TOXOPLASMA GONDII 2020-01-24 05:36:00 EdwigeMirela [facility] kes - ANTIBODY, IGG [facility] TACROLIMUS LEVEL 2020-01-24 05:36:00 Lisa Balderas [facility] CBC W/PLT COUNT & AUTO 2020-01-24 05:36:00 Lisa Balderas [facility] POCT-GLUCOSE METER 2020-01-24 05:22:00 Kayla [place] [facility] PREPARE PLASMA 2020-01-23 23:54:00 Reid Davidkaitanneliesematt [facility] TRANSFUSION SERVICE 2020-01-23 18:02:04 Whitley Zapata [facility] REPORT - SCAN [facility] POCT-GLUCOSE METER 2020-01-23 16:12:00 Kayla [place] [facility] CALCIUM, IONIZED 2020-01-23 13:33:00 Celia English [facility] POCT-GLUCOSE METER 2020-01-23 11:04:00 Kayla [place] [facility] PLASMA EXCHANGE 2020-01-23 09:09:[address] [facility] BASIC METABOLIC PANEL (7) 2020-01-23 04:12:00 Lisa Balderas [facility] MAGNESIUM 2020-01-23 04:12:00 Lisa Balderas [facility] PHOSPHORUS 2020-01-23 04:12:00 Lisa Balderas [facility] TACROLIMUS LEVEL 2020-01-23 04:12:00 Lisa Balderas [facility] CBC W/PLT COUNT & AUTO 2020-01-23 04:12:00 Lisa Balderas [facility] PREPARE RBC 2020-01-22 23:54:00 Sheba Cheatham [facility] POCT-GLUCOSE METER 2020-01-22 23:09:00 Kayla [place]er [facility] TRANSFUSION SERVICE 2020-01-22 18:03:44 ProviderWhitley [facility] REPORT - SCAN Scanning [facility] POCT-GLUCOSE METER 2020-01-22 17:04:00 Kayla [place] [facility] TRANSFUSE PLASMA 2020-01-22 13:52:08 [facility] TRANSFUSE PLASMA 2020-01-22 13:17:30 [facility] PLASMA EXCHANGE 2020-01-22 13:10:56 [facility] CALCIUM, IONIZED 2020-01-22 13:06:00 Celia English [facility] TRANSFUSE PLASMA 2020-01-22 12:44:37 [facility] CALCIUM, IONIZED 2020-01-22 12:03:00 [facility] POCT-GLUCOSE METER 2020-01-22 11:52:00 Kayla [place] [facility] POCT-GLUCOSE METER 2020-01-22 10:01:00 Kayla [place] [facility] XR CHEST 1 VIEW 2020-01-22 03:52:00 Dasha Hoskins [facility] BASIC METABOLIC PANEL (7) 2020-01-22 03:31:00 Lisa Balderas [facility] MAGNESIUM 2020-01-22 03:31:00 Lisa Balderas [facility] PHOSPHORUS 2020-01-22 03:31:00 Lisa Balderas [facility] VANCOMYCIN LEVEL, RANDOM 2020-01-22 03:31:00 Vinny Everett Sherry [facility] TACROLIMUS LEVEL 2020-01-22 03:31:00 Lisa Balderas [facility] CBC W/PLT COUNT & AUTO 2020-01-22 03:31:00 Lisa Balderas [facility] POCT-GLUCOSE METER 2020-01-21 23:29:00 Kayla [place] [facility] HEMOGLOBIN AND HEMATOCRIT 2020-01-21 21:46:00 Kayla [place] cker [facility] TRANSFUSE LEUKO-REDUCED 2020-01-21 21:06:12 Devonte Giraldo [facility] RED BLOOD CELLS [facility] TRANSFUSION SERVICE 2020-01-21 18:01:47 Provider, Whitley [facility] REPORT - SCAN Scanning [facility] ANTIBODY IDENTIFICATION 2020-01-21 17:02:00 Sheba Cheatham [facility] PREPARE LEUKO-REDUCED RBC 2020-01-21 16:22:00 Devonte Giraldo [facility] PREPARE RBC 2020-01-21 15:53:00 Sheba Cheatham [facility] CBC W/PLT COUNT & AUTO 2020-01-21 13:21:00 Lisa Balderas [facility] US TRANSPLANT KIDNEY 2020-01-21 13:07:00 Lisa Balderas [facility] BLOOD GAS, ARTERIAL 2020-01-21 11:51:00 Lisa Balderas [facility] SODIUM NA-STAT LAB 2020-01-21 11:51:00 Lisa Balderas [facility] POTASSIUM-STAT LAB 2020-01-21 11:51:00 Lisa Balderas [facility] CALCIUM, IONIZED 2020-01-21 11:51:00 Lisa Balderas [facility] GLUCOSE-STAT LAB 2020-01-21 11:51:00 [facility] - STAT LAB 2020-01-21 11:51:00 Lisa Balderas jonathon [facility] PLATELET COUNT 2020-01-21 11:51:00 Lisa Balderaszabeth [facility] BASIC METABOLIC PANEL (7) 2020-01-21 11:51:00 Lisa Balderash [facility] FUNGUS CULTURE + SMEAR 2020-01-21 11:45:15 Kayla South Aba er [facility] ANAEROBIC CULTURE 2020-01-21 11:45:15 Kayla South [place] [facility] SURGICALLY OBTAINED 2020-01-21 11:45:15 Kayla [place] [facility] - CULTURE + GRAM STAIN Medical Yuli ter TRANSPLANT,KIDNEY-CADAVER 2020-01-21 06:00:00 Kayla [place] [facility] REMOVAL DIALYSIS CATHETER 2020-01-21 06:00:00 Kayla [place] [facility] CBC W/PLT COUNT & AUTO 2020-01-20 21:30:00 Lisa Balderas Felicita garnett [facility] DIFFERENTIAL [facility] APTT 2020-01-20 21:29:00 Andrey Lisacharleen Lou [facility] COMPREHENSIVE METABOLIC 2020-01-20 21:29:00 Lisa Balderas Chucho collins [facility] PROTHROMBIN TIME/INR 2020-01-20 21:29:00 [facility] Lisa Dasha [facility] TYPE AND SCREEN, 2020-01-20 21:29:00 Andrey Lisa Dasha [facility] AUTOMATED [facility] CT CHEST WITHOUT IV 2020-01-20 19:12:[address] [facility] CONTRAST [facility] BODY FLUID CELL COUNT 2020-01-20 18:20:00 Cecile Langley [facility] WITH DIFFERENTIAL [facility] PERITONEAL DIALYSIS 2020-01-20 18:18:00 Cecile Langley CH I [facility] - EFFLUENT CULTURE [facility] FUNGUS CULTURE + SMEAR 2020-01-20 18:18:00 TimCecile hilario [facility] ECG 12-LEAD 2020-01-20 18:11:57 Unknown, Hl7 [facility] SARS-COV2/RT-PCR ([facility] & 2020-01-20 18:03:00 Lisa Balderas eth [facility] - REF LABS) Medical Center FLOW PRA CLASS I WITH 2020-01-18 17:51:00 TimminCecile rosa [facility] - REFLEX TO ANTIBODY Medical Cent[facility] r SPECIFICITY FLOW PRA CLASS II WITH 2020-01-18 17:51:00 Timmins, Cecile SGeovani [facility] - REFLEX TO ANTIBODY [facility] SPECIFICITY AB SPECIFICITY CLASS I 2020-01-18 17:51:00 TimminCecile rosa [facility] AB SPECIFICITY CLASS II 2020-01-18 17:51:00 TimminCecile rosa [facility] CRSMTCH SEROLOGY FV 3 2020-01-18 17:51:00 TimminCecile rosa [facility] CRSMTCH FLOW 3 SERUM 2020-01-18 17:51:00 Cecile Langley [facility] RHYTHM STRIP - SCAN 2019-05-19 16:00:24 Whitley Zapata [facility] SPUTUM CULTURE + GRAM 2019-05-18 12:19:00 Nishi David [facility] POCT-GLUCOSE METER 2019-05-18 07:57:00 Nishi David [facility] BASIC METABOLIC PANEL (7) 2019-05-18 05:27:00 Nishi David [facility] POCT-GLUCOSE METER 2019-05-17 21:37:00 Ketan [facility] ECG 12-LEAD 2019-05-17 18:29:14 [facility] BRAIN WITHOUT IV 2019-05-17 17:00:00 Carrol Aceves [facility] XR CHEST 1 VIEW 2019-05-17 16:51:00 Vu, Trien [facility] - PORTABLE/BEDSIDE [facility] BASIC METABOLIC PANEL (7) 2019-05-17 16:47:00 Carrol Aceves [facility] MAGNESIUM 2019-05-17 16:47:00 Carrol Aceves [facility] TROPONIN I 2019-05-17 16:47:00 [facility] PT/APTT 2019-05-17 16:47:00 Carrol Aceves [facility] B-TYPE NATRIURETIC FACTOR 2019-05-17 16:47:00 Carrol Aceves [facility] (BNP) [facility] CBC W/PLT COUNT & AUTO 2019-05-17 16:47:00 Carrol Aceves [facility] BASIC METABOLIC PANEL (7) 2019-03-31 15:06[facility] 2019-03-31 15:06:00 Remigio Lee [facility] PROTHROMBIN TIME/INR 2019-03-31 15:06[facility] W/[facility]T [facility] & AUTO 2019-03-31 15:06:00 [facility] & WITHOUT 2019-03-16 13:08:00 Remigio Lee [facility] CONTRAST [facility] 2D ECHO W/ DOPPLER 2019-02-24 00:00:00 Provider, Historical [facility] (CW/PW/COLOR) [facility] Plan of Care Planned Activity Planned Date Details Comments Source Future Scheduled 2022[facility]02[facility] (procedure[facility] [code = [facility] Center 20650439] Future Scheduled 2020-01-11 INFLUENZA VACCINE (#1) [facility] 00:[facility]:00 [code = INFLUENZA Medical Ce nter VACCINE (#1)] Future Scheduled 2019-01-[address] [facility] - Test 00:00:00 [facility] (procedure) [code = 54632896] Future Scheduled 2016-07-19 [facility]OC[facility]CCAL [facility] - Test 00:00:00 2-64 YEARS AT RISK (2 Medica l Center of 3 - PCV13) [code = PNEUMOCOCCAL VACCINE 2-64 YEARS AT RISK (2 of 3 - PCV13)] Future Scheduled 2013-03-[address] [facility] - Test 00:00:00 WELLNESS (YEAR 2 or Medical Center FIRST YEAR if no IPPE) [code = MEDICARE ANNUAL WELLNESS (YEAR 2 or FIRST YEAR if no IPPE)] Future Scheduled [address] [facility] - Test 00:00:00 [facility] cervix (procedure) [code = 669061928] Future Scheduled [address] DIABETIC EYE EXAM [facility] - Test 00:00:00 [code = DIABETIC EYE Medical Center EXAM] Future Scheduled [address] [facility] - Test 00:00:00 examination Medical Center (regime/therapy) [code = 971825796] Future Scheduled 1980 Urine screening for [facility] - Test 00:00:00 protein (procedure) Medical Center [code = 025609901] Encounters Start End Encounter Admission Attending Care Care Encounter Source Date/Time Date/Time Type Type Clinicians Facility Department ID 2019-06-16 2019-06-16 Office FAVIO Guillory [id number] 12:40:31 13:10:31 Visit Aisha AMBULATOR [id number] Y 0.2.7.2.686 [id number] 2019-06-01 2019-06-01 Office FAVIO Raymond [id number] 12:24:54 15:00:21 Visit Aisha AMBULATOR 350.1.13.21 Y 0.2.7.2.686 [id number] 2019-01-13 2019-01-13 Office FAVIO Raymond [id number] 10:58:35 15:41:13 Visit Aisha AMBULATOR 350.1.13.21 Y 0.2.7.2.686 [id number] 2018-12-14 2018-12-14 Office FAVIO Guillory [id number] 12:47:35 13:24:59 Visit Aisha AMBULATOR 350.1.13.21 Y 0.2.7.2.686 [id number] Results Test Description Test Time Test Comments Results Result Comments Source Coccidioides antibodies 2020-01-31 17:28:00 Test Item Value Reference Range Interpretation Comme nts Coccidioides Ab,Id (test NEGATIVE REF ERENCE RANGE: NEGATIVE code = 4354003) INTERPRETIVE CRITERIA: NEGATIVE: Antibody Not Detected POSITIVE: Anti body Detected The immunodiffusion (ID) procedure correlates both in sensitivity and clinical utilit y with the CFtest. The ID test, wh ich detects IgG directed tothe "F" antigen, becomes positiv e within 4 weeksafter infe ction and remains positive throug houtclinically active disease. It is most useful inconfirming th e specificity of low CF titers, whereline(s) of identity are fo rmed with referenceantise ra. Positive ID reactions are d iagnostic forcoccidioidom ycosis and usually indicate active orrecent disease and remain dete ctable for up to 1year theresina FLEMING (test code = LONNIE) Performing Lab *[facility]DID [facility] [address] [place] [address] Brennon Nazario MD [facility] [id number] 23:59:00 Test Item Value Reference Range Interpretation Comments DSA A AG1 (test code 02:01 = 3253) DSA A AG2 (test code 74:01 = 3255) DSA B AG1 (test code 15:03 = 3257) DSA B AG2 (test code 15:03 = 3259) DSA C AG1 (test code 02:02 = 3261) DSA C AG2 (test code 02:02 = 3263) DSA DR AG1 (test code 08:04 = 3265) DSA DR AG2 (test code 13:03 = 3267) DSA DRw AG2 (test 3*01:01 code = 3271) DSA DQA AG1 (test 04:01 code = 3277) DSA DQA AG2 (test 5 code = 3279) DSA DQB AG1 (test 03:01 code = 3273) DSA DQB AG2 (test 03:01 code = 3275) DSA DPA AG1 (test 02:01 code = 3285) DSA DPA AG2 (test 03:01 code = 3287) DSA DPB AG1 (test 01:01 code = 3281) DSA DPB AG2 (test 105: code = 3283) AB Specificity DSA NO DONOR SPECIFIC Comment (test code = ANTIBODY DETECTED WITH 3452) MFIs > 1000; If a specific bead is not available on single antigen panel and MFIs > 1000, results reflect the average of beads with serological equivalence. LONNIE (test code = LONNIE) Disclaimer: This test was developed and its performance characteristics determined by the [facility] Laboratory. It has not been cleared or approved by the U.S. Food and Drug Administration. The FDA has determined that such clearance or approval is not necessary. This test is used for clinical purposes. It should not be regarded as investigational or for research. This laboratory is certified under the Clinical Laboratory Improvement Amendments of 1988 (CLIA-88) as qualified to perform high complexity clinical laboratory testing. [facility] SPECIFIC[facility] CLASS [id number] 23:59:00 Test Item Value Reference Range Interpretation Comments AB Specificity Class A:1 3 11 23 24 32 36B:7 I (test code = 3457) 13 27 37 38 41 44 47 48 49 51 53 57 59 60 61 63 73 77 81Bw:4 AB Specificity Titr MFIs > 1000 Class Report (test code = 3251) LONNIE (test code = LONNIE) Disclaimer: This test was developed and its performance characteristics determined by the [facility] Laboratory. It has not been cleared or approved by the U.S. Food and Drug Administration. The FDA has determined that such clearance or approval is not necessary. This test is used for clinical purposes. It should not be regarded as investigational or for research. This laboratory is certified under the Clinical Laboratory Improvement Amendments of 1988 (CLIA-88) as qualified to perform high complexity clinical laboratory testing. [facility] SPE[facility] CLASS [id number] 23:59:00 Test Item Value Reference Range Interpretation Comments AB Specificity Class DR:7 9 10DRw:53DQ:2 II (test code = 3458) 04:01 5 6 8DQA:01:01 01:02 01:03 02:01 03:02 03:03 05:01 AB Specificity Titr MFIs > 1000 Class Report (test code = 3251) LONNIE (test code = LONNIE) Disclaimer: This test was developed and its performance characteristics determined by the [facility] Laboratory. It has not been cleared or approved by the U.S. Food and Drug Administration. The FDA has determined that such clearance or approval is not necessary. This test is used for clinical purposes. It should not be regarded as investigational or for research. This laboratory is certified under the Clinical Laboratory Improvement Amendments of 1988 (CLIA-88) as qualified to perform high complexity clinical laboratory testing. [facility] PRA CLASS I WITH REFLEX TO ANTIBODY [id number] 18:15:00 Test Item Value Reference Range Interpretation Comments Flow Class I 66 Percent Positive (test code = 3229) LONNIE (test code = Disclaimer: This test was LONNIE) developed and its performance characteristics determined by the [facility] Laboratory. It has not been cleared or approved by the U.S. Food and Drug Administration. The FDA has determined that such clearance or approval is not necessary. This test is used for clinical purposes. It should not be regarded as investigational or for research. This laboratory is certified under the Clinical Laboratory Improvement Amendments of 1988 (CLIA-88) as qualified to perform high complexity clinical laboratory testing. [facility] PRA CLASS II WITH REFLEX TO ANTIBODY [id number] 18:15:00 Test Item Value Reference Range Interpretation Comments Flow Class II 93 Percent Positive (test code = 3231) LONNIE (test code = Disclaimer: This test was LONNIE) developed and its performance characteristics determined by the [facility] Laboratory. It has not been cleared or approved by the U.S. Food and Drug Administration. The FDA has determined that such clearance or approval is not necessary. This test is used for clinical purposes. It should not be regarded as investigational or for research. This laboratory is certified under the Clinical Laboratory Improvement Amendments of 1988 (CLIA-88) as qualified to perform high complexity clinical laboratory testing. [facility] HospitalUrine [id number] 13:10:00 Test Item Value Reference Range Interpretation Comments Result (test code = 6463-4) No growth [facility] HospitalTacrolimus [id number] 11:50:00 Test Item Value Reference Range Interpretation Comments Tacrolimus Lvl (test code 13.0 ng/mL 02-28 = 43155-2) LONNIE (test code = LONNIE) Physical Therapist ID - NABEEL Alvarez Lab Interpretation (test Normal code = 42231-2) [facility] HospitalTACROLIMUS [id number] 11:50:00 Test Item Value Reference Range Interpretation Comments TACROLIMUS BLOOD (BEAKER) (test 13.0 ng/mL 10.0-20.0 code = 657) Physical Therapist ID - NABEEL FComprehensive metabolic [id number] 11:13:00 Test Item Value Reference Range Interpretation Comments Protein, Total (test 7.1 6.0- 8.3 gm/dL code = 2885-2) Albumin (test code = 4.6 g/dL 3.5-5 75726-0) Alkaline Phosphatase 57 U/L 40-150 (test code = 6768-6) Total Bilirubin (test 0.9 mg/dL 0.2-1.2 code = 1975-2) Sodium (test code = 140 meq/L 937-491 2106-2) Potassium (test code = 3.7 meq/L 3.5-5.1 2823-3) Chloride (test code = 104 meq/L 98-107 2075-0) CO2 (test code = 19 meq/L 22-29 L 2028-9) BUN (test code = 19 mg/dL 7-21 3094-0) Creatinine (test code 2.01 mg/dL 0.57-1.25 H = 2160-0) Glucose (test code = 299 mg/dL 70-105 H 2345-7) Calcium (test code = 8.7 mg/dL 8.4-10.2 66811-5) AST (test code = 42 U/L 5-34 H 1920-8) ALT (test code = 22 U/L 6-55 1742-6) EGFR (test code = 26 mL/min/1.73 [place] [address]-3) NOT ACCURATE CREATININE CLEARANCE IN PREDICTING GLOMERULAR FILTRATION RATE . ESTIMATED GFR I S NOT APPLICABLE FOR DIALYSIS PATIENTS. LONNIE (test code = LONNIE) Physical Therapist ID - ANA Lab Interpretation Abnormal (test code = 66183-6) [facility] METABOLIC [id number] 11:13:00 Test Item Value Reference Range Interpretation Comments TOTAL PROTEIN 7.1 gm/dL 6.0-8.3 (BEAKER) (test code = 770) ALBUMIN (BEAKER) 4.6 g/dL 3.5-5.0 (test code = 1145) ALKALINE PHOSPHATASE 57 U/L 40-150 (BEAKER) (test code = 346) BILIRUBIN TOTAL 0.9 mg/dL 0.2-1.2 (BEAKER) (test code = 377) SODIUM (BEAKER) (test 140 meq/L 136-145 code = 381) POTASSIUM (BEAKER) 3.7 meq/L 3.5-5.1 (test code = 379) CHLORIDE (BEAKER) 104 meq/L 98-107 (test code = 382) CO2 (BEAKER) (test 19 meq/L 22-29 L code = 355) BLOOD UREA NITROGEN 19 mg/dL 7-21 (BEAKER) (test code = 354) CREATININE (BEAKER) 2.01 mg/dL 0.57-1.25 H (test code = 358) GLUCOSE RANDOM 299 mg/dL 70-105 H (BEAKER) (test code = 652) CALCIUM (BEAKER) 8.7 mg/dL 8.4-10.2 (test code = 697) AST (SGOT) (BEAKER) 42 U/L 5-34 H (test code = 353) ALT (SGPT) (BEAKER) 22 U/L 6-55 (test code = 347) EGFR (BEAKER) (test 26 mL/min/1.73 ESTIMA BRII GFR IS code = 1092) sq m NOT ACCURATE CREATININE CLEARANCE IN PREDICTING GLOMERULAR FILTRATION RATE . ESTIMATED GFR I S NOT APPLICABLE FOR DIALYSIS PATIEN TS. Physical Therapist ID - [id number] 11:10:00 Test Item Value Reference Range Interpretation Comments Phosphorus (test code = 2.1 mg/dL 2.3-4.7 L 2777-1) LONNIE (test code = LONNIE) Physical Therapist ID - ROSVIPULG Lab Interpretation (test Abnormal code = 99225-9) [facility] HospitalPHOSPHORUS2020-09-17 11:10:00 Test Item Value Reference Range Interpretation Comments PHOSPHORUS (BEAKER) (test code = 2.1 mg/dL 2.3-4.7 L 604) Physical Therapist ID - RKIYGCBC with platelet count + automated [id number] 11:06:00 Test Item Value Reference Range Interpretation Comments WBC (test code = 6690-2) 9.5 3.5- 10.5 K/L RBC (test code = 789-8) 2.72 3.93- 5.22 M/L L MCHC (test code = 786-4) 31.7 32.2- 35.5 GM/DL L Hematocrit (test code = 4544-3) 26.5 % 34.1-44.9 L MCV (test code = 787-2) 97.4 fL 79.4-94.8 H MCH (test code = 785-6) 30.9 pg 25.6-32.2 RDW (test code = 788-0) 13.3 % 11.7-14.4 Platelets (test code = 777-3) 270 150- 450 K/CU MM MPV (test code = 23346-3) 10.2 fL 9.4-12.3 nRBC (test code = 413) 1 0- 0 /100 WBC H Lab Interpretation (test code = Abnormal 88580-8) [facility] HospitalManual [id number] 11:06:00 Test Item Value Reference Range Interpretation Comments % Neutros (test code = 86 % 2816) % Lymphs (test code = 1 % 7) % Monos (test code = 5 % 8) % Eos (test code = 2819) 2 % % Metamyelo (test code = 2 % 0-0 H 282) % Myelo (test code = 3 % 0-0 H 282) % Promyelo (test code = 1 % 0-0 H 282) % Bands (test code = 2 % 0-10 2825) # Neutros (test code = 8.17 K/ul 1.56-6.13 H 2830) # Lymphs (test code = 0.10 K/ul 1.18-3.74 L 2831) # Monos (test code = 0.48 K/uL 0.24-0.36 H 2832) # Eos (test code = 2834) 0.19 K/uL 0.04-0.36 # Metamyelo (test code = 0.19 K/uL 0-0 H 2836) # Myelo (test code = 0.29 K/uL 0-0 H 2837) # Promyelo (test code = 0.10 K/uL 0-0 H 2838) # Bands (test code = 0.19 K/uL 0-0.8 2840) Total Counted (test code 100 = 1351) nRBC (manual) (test code 2 0- 0 /100 WBC H = 1353) WBC Morphology (test Normal code = 487) Platelet Morphology Normal (test code = 486) Polychromasia (test code 1+ few = 478) Artifact (test code = Present 3432) Platelet Conc (test code Adequate = 3438) LONNIE (test code = LONNIE) Physical Therapist ID - Raya OverholtUser comments: Slide comments: Lab Interpretation (test Abnormal code = 50672-8) [facility] W/PLT COUNT & AUTO [id number] 11:06:00 Test Item Value Reference Range Interpretation Comments WHITE BLOOD CELL COUNT (BEAKER) 9.5 K/ L 3.5-10.5 (test code = 775) RED BLOOD CELL COUNT (BEAKER) 2.72 M/ L 3.93-5.22 L (test code = 761) HEMOGLOBIN (BEAKER) (test code = 8.4 GM/DL 11.2-15.7 L 410) HEMATOCRIT (BEAKER) (test code = 26.5 % 34.1-44.9 L 411) MEAN CORPUSCULAR VOLUME (BEAKER) 97.4 fL 79.4-94.8 H (test code = 753) MEAN CORPUSCULAR HEMOGLOBIN 30.9 pg 25.6-32.2 (BEAKER) (test code = 751) MEAN CORPUSCULAR HEMOGLOBIN CONC 31.7 GM/DL 32.2-35.5 L (BEAKER) (test code = 752) RED CELL DISTRIBUTION WIDTH 13.3 % 11.7-14.4 (BEAKER) (test code = 412) PLATELET COUNT (BEAKER) (test 270 K/CU MM 150-450 code = 756) MEAN PLATELET VOLUME (BEAKER) 10.2 fL 9.4-12.3 (test code = 754) NUCLEATED RED BLOOD CELLS 1 /100 WBC 0-0 H (BEAKER) (test code = 413) (CELLAVISION MANUAL DIFF)2020-01-27 11:06:00 Test Item Value Reference Range Interpretation Comments NEUTROPHILS - REL 86 % (CELLAVISION)(BEAKER) (test code = 2816) LYMPHOCYTES - REL 1 % (CELLAVISION)(BEAKER) (test code = 2817) MONOCYTES - REL 5 % (CELLAVISION)(BEAKER) (test code = 2818) EOSINOPHILS - REL 2 % (CELLAVISION)(BEAKER) (test code = 2819) METAMYELOCYTES - REL 2 % 0-0 H (CELLAVISION)(BEAKER) (test code = 2821) MYELOCYTES - REL 3 % 0-0 H (CELLAVISION)(BEAKER) (test code = 2822) PROMYELOCYTES - REL 1 % 0-0 H (CELLAVSION)(BEAKER) (test code = 2825) BANDS - REL (CELLAVISION)(BEAKER) 2 % 0-10 (test code = 2826) NEUTROPHILS - ABS 8.17 K/ul 1.56-6.13 H (CELLAVISION)(BEAKER) (test code = 2830) LYMPHOCYTES - ABS 0.10 K/ul 1.18-3.74 L (CELLAVISION)(BEAKER) (test code = 2831) MONOCYTES - ABS 0.48 K/uL 0.24-0.36 H (CELLAVISION)(BEAKER) (test code = 2832) EOSINOPHILS - ABS 0.19 K/uL 0.04-0.36 (CELLAVISION)(BEAKER) (test code = 2834) METAMYELOCYTES - ABS 0.19 K/uL 0.00-0.00 H (CELLAVISION)(BEAKER) (test code = 2836) MYELOCYTES-ABS 0.29 K/uL 0.00-0.00 H (CELLAVISION)(BEAKER) (test code = 2837) PROMYELOCYTES - ABS 0.10 K/uL 0.00-0.00 H (CELLAVISION)(BEAKER) (test code = 2838) BANDS - ABS (CELLAVISION)(BEAKER) 0.19 K/uL 0.00-0.80 (test code = 2840) TOTAL COUNTED (BEAKER) (test code 100 = 1351) MANUAL NRBC PER 100 CELLS (BEAKER) 2 /100 WBC 0-0 H (test code = 1353) WBC MORPHOLOGY (BEAKER) (test code Normal = 487) PLT MORPHOLOGY (BEAKER) (test code Normal = 486) POLYCHROMATOPHILLIC RBCS(BEAKER) 1+ few (test code = 478) ARTIFACT (CELLAVISION)(BEAKER) Present (test code = 3432) PLATELET CONCENTRATION Adequate (CELLAVISION)(BEAKER) (test code = 3438) Physical Therapist ID - Raya OverholtUser comments: Slide comments:Urinalysis w/Microscopic + Reflex to [id number] 09:51:00 Test Item Value Reference Range Interpretation Comments Color, UA (test code = Yellow 5778-6) Clarity, UA (test code = Clear 5767-9) Specific Sabin, UA (test 1.015 1.001-1.035 code = 5811-5) pH, UA (test code = 6.0 5.0-8.0 5803-2) Protein, UA (test code = 30 mg/dL Negative A 32203-7) Glucose, UA (test code = 30 mg/dL Negative A 365) Ketones, UA (test code = Negative Negative 2514-8) Bilirubin, UA (test code = Negative Negative 88747-2) Blood, UA (test code = Small Negative A 71468-2) Nitrite, UA (test code = Negative Negative 5802-4) Leukocytes, UA (test code Small Negative A = 5799-2) Urobilinogen, UA (test 0.2 mg/dL 0.2-1 code = 99377-7) RBC, UA (test code = 30 /HPF 69568-3) WBC, UA (test code = 21 /HPF 5821-4) Mucus (test code = 8247-9) Rare Squam Epithel, UA (test 2 /HPF code = 37520-9) Yeast (test code = Rare 27864-5) Specimen Source (test code = 2795) LONNIE (test code = LONNIE) Physical Therapist ID - [auto]Physical Therapist ID - tech Lab Interpretation (test Abnormal code = 19019-7) [facility] URINE [id number] 09:51:00 Test Item Value Reference Range Interpretation Comments COLOR (BEAKER) (test code = 470) Yellow CLARITY (BEAKER) (test code = 469) Clear SPECIFIC GRAVITY UA (BEAKER) (test 1.015 1.001-1.035 code = 468) PH UA (BEAKER) (test code = 467) 6.0 5.0-8.0 PROTEIN UA (BEAKER) (test code = 30 mg/dL Negative A 464) GLUCOSE UA (BEAKER) (test code = 30 mg/dL Negative A 365) KETONES UA (BEAKER) (test code = Negative Negative 371) BILIRUBIN UA (BEAKER) (test code = Negative Negative 462) BLOOD UA (BEAKER) (test code = 461) Small Negative A NITRITE UA (BEAKER) (test code = Negative Negative 465) LEUKOCYTE ESTERASE UA (BEAKER) Small Negative A (test code = 466) UROBILINOGEN UA (BEAKER) (test code 0.2 mg/dL 0.2-1.0 = 463) RBC UA (BEAKER) (test code = 519) 30 /HPF WBC UA (BEAKER) (test code = 520) 21 /HPF MUCUS (BEAKER) (test code = 1574) Rare SQUAMOUS EPITHELIAL (BEAKER) (test 2 /HPF code = 516) YEAST (BEAKER) (test code = 1585) Rare SOURCE(BEAKER) (test code = 2795) Physical Therapist ID - [auto]Physical Therapist ID - techCRSMTCH FLOW 3 [id number] 21:43:00 Test Item Value Reference Range Interpretation Comments T-FXM Serum1 (test T(IgG) code = 3299) T-FXM Serum1 Res Neg Historical (test code = 2485) B-FXM Serum1 (test B(IgG) code = 3300) B-FXM Serum1 Res Neg Historical (test code = 2486) T-FXM Serum2 (test T(IgG) code = 2496) T-FXM Serum2 Res Neg Current (test code = 2497) B-FXM Serum2 (test B(IgG) code = 2495) B-FXM Serum2 Res Neg Current (test code = 2539) T-FXM Serum3 (test T(IgG) code = 2540) T-FXM Serum3 Res Neg Pre Txp (test code = 2543) B-FXM Serum3 (test B(IgG) code = 2544) B-FXM Serum3 Res Neg Pre Txp (test code = 2545) Crsmtch Flow DONOR FLOW Comment (test code CROSSMATCH RESULT: = 2487) NEGATIVE UNOS ID (test code [id number] = 3342) Donor Name (test [id number], DD-IMPORT code = 3343) LONNIE (test code = Disclaimer: This test was LONNIE) developed and its performance characteristics determined by the [facility] Laboratory. It has not been cleared or approved by the U.S. Food and Drug Administration. The FDA has determined that such clearance or approval is not necessary. This test is used for clinical purposes. It should not be regarded as investigational or for research. This laboratory is certified under the Clinical Laboratory Improvement Amendments of 1988 (CLIA-88) as qualified to perform high complexity clinical laboratory testing. [facility] SEROLOGY [place] [id number] 21:43:00 Test Item Value Reference Range Interpretation Comments CDC-XM FV1 AHG AHG (test code = 2572) CDC-XM FV1 AHG RES Pos Historical (test code = 2573) CDC-XMFV1 AHG/DTT AHG/HI (test code = 2575) CDC-XM FV2 AHG AHG (test code = 2587) CDC-XM FV2 AHG RES Pos Current (test code = 2600) CDC-XMFV2 AHG/DTT AHG/HI (test code = 2630) CDC-XM FV3 AHG AHG (test code = 2663) CDC-XM FV3 AHG RES Pos Pre Txp (test code = 2664) CDC-XMFV3 AHG/DTT AHG/HI (test code = 2665) Crsmtch Serology FV DONOR [facility] 3 Comment (test CROSSMATCH RESULT: code = 2667) NEGATIVE POSITIVE RESULTS LIKELY DUE TO IGM INTERFERENCE BASED ON NEGATIVE FLOW RESULTS UNOS ID (test code [id number] = 3391) Donor Name (test [id number], DD-IMPORT code = 3405) LONNIE (test code = Disclaimer: This test was LONNIE) developed and its performance characteristics determined by the [facility]. It has not been cleared or approved by the [place]. Food and Drug Administration. The FDA has determined that such clearance or approval is not necessary. This test is used for clinical purposes. It should not be regarded as investigational or for research. This laboratory is certified under the Clinical Laboratory Improvement Amendments of 1988 (CLIA-88) as qualified to perform high complexity clinical laboratory testing. [facility] [id number] 19:48:00 Test Item Value Reference Range Interpretation Comments Result (test code = No anaerobes isolated 6463-4) [facility] [id number] 19:48:00 Test Item Value Reference Range Interpretation Comments CULTURE (BEAKER) (test No anaerobes isolated code = 1095) TACROLIMUS [id number] 10:33:00 Test Item Value Reference Range Interpretation Comments TACROLIMUS BLOOD (BEAKER) (test 6.4 ng/mL 10.0-20.0 L code = 657) Physical Therapist ID - EMERSONToxoplasma gondii antibody, [id number] 10:22:00 Test Item Value Reference Range Interpretation Comments TOXOPLASMA GONDII IGG 7.0 <10.0 IU/mL QUANTITATIVE (test code = 3428) LONNIE (test code = LONNIE) Toxoplasma Gondii IgG Result Interpretation: </= 9.9 IU/mL Normal 10-11 IU/mL Equivocal >/= 12 IU/mL Positive Lab Interpretation (test Normal code = 77790-6) [facility]TIBODY, [id number] 10:22:00 Test Item Value Reference Range Interpretation Comments TOXOPLASMA GONDII IGG QUANTITATIVE 7.0 IU/mL <10.0 (BEAKER) (test code = 3428) Toxoplasma Gondii IgG Result Interpretation: </= 9.9 IU/mL Normal 10-11 IU/mL Equivocal >/= 12 IU/mL PositiveBasic Metabolic Panel 2020-01-25 09:52:00 Test Item Value Reference Range Interpretation Comments Sodium (test code = 140 meq/L 783-853 9491-2) Potassium (test code = 3.6 meq/L 3.5-5.1 2823-3) Chloride (test code = 110 meq/L 98-107 H 2074-0) CO2 (test code = 24 meq/L 22-29 8-9) BUN (test code = 17 mg/dL 7-21 3094-0) Creatinine (test code 2.02 mg/dL 0.57-1.25 H = 2160-0) Glucose (test code = 144 mg/dL 70-105 H 2345-7) Calcium (test code = 8.8 mg/dL 8.4-10.2 37361-7) EGFR (test code = 26 mL/min/1.73 [place] [address]-4) NOT ACCURATE CREATININE CLEARANCE IN PREDICTING GLOMERULAR FILTRATION RATE . ESTIMATED GFR I S NOT APPLICABLE FOR DIALYSIS PATIENTS. LONNIE (test code = LONNIE) Physical Therapist ID - ADMIN Lab Interpretation Abnormal (test code = 58927-5) [facility] [id number] 09:52:00 Test Item Value Reference Range Interpretation Comments SODIUM (BEAKER) 140 meq/L 136-145 (test code = 381) POTASSIUM (BEAKER) 3.6 meq/L 3.5-5.1 (test code = 379) CHLORIDE (BEAKER) 110 meq/L 98-107 H (test code = 382) CO2 (BEAKER) (test 24 meq/L 22-29 code = 355) BLOOD UREA NITROGEN 17 mg/dL 7-21 (BEAKER) (test code = 354) CREATININE (BEAKER) 2.02 mg/dL 0.57-1.25 H (test code = 358) GLUCOSE RANDOM 144 mg/dL 70-105 H (BEAKER) (test code = 652) CALCIUM (BEAKER) 8.8 mg/dL 8.4-10.2 (test code = 697) EGFR (BEAKER) (test 26 mL/min/1.73 ESTIMA BRII GFR IS code = 1092) sq m NOT ACCURATE CREATININE CLEARANCE IN PREDICTING GLOMERULAR FILTRATION RATE . ESTIMATED GFR I S NOT APPLICABLE FOR DIALYSIS PATIEN TS. Physical Therapist ID - [id number] 09:51:00 Test Item Value Reference Range Interpretation Comments Magnesium (test code = 1.6 mg/dL 1.6-2.6 74733-5) LONNIE (test code = LONNIE) Physical Therapist ID - ADMIN Lab Interpretation (test Normal code = 62948-8) [facility] 09:51:00 Test Item Value Reference Range Interpretation Comments PHOSPHORUS (BEAKER) (test code = 1.9 mg/dL 2.3-4.7 L 604) Physical Therapist ID - [id number] 09:51:00 Test Item Value Reference Range Interpretation Comments MAGNESIUM (BEAKER) (test code = 1.6 mg/dL 1.6-2.6 627) Physical Therapist ID - ADMINPOC-Glucose [id number] 08:36:00 Test Item Value Reference Range Interpretation Comments POC-Glucose Meter (test 142 mg/dL 70-110 H : TE STED AT [facility] code = 1538) [address] [facility], 770 30: Physical Therapist/Techni martita ID = [id number] for Lesly Ordaz noa Lab Interpretation (test Abnormal code = 46138-8) [facility] [id number] 08:36:00 Test Item Value Reference Range Interpretation Comments POC-GLUCOSE METER 142 mg/dL 70-110 H : TESTED A T [facility] 6720 (BEAKER) (test code = [facility], 1538) [address]: Physical Therapist/Techni martita ID = [id number] for Nate Vance CBC W/PLT COUNT & AUTO [id number] 06:19:00 Test Item Value Reference Range Interpretation Comments WHITE BLOOD CELL COUNT (BEAKER) 9.4 K/ L 3.5-10.5 (test code = 775) RED BLOOD CELL COUNT (BEAKER) 2.31 M/ L 3.93-5.22 L (test code = 761) HEMOGLOBIN (BEAKER) (test code = 7.1 GM/DL 11.2-15.7 L 410) HEMATOCRIT (BEAKER) (test code = 22.5 % 34.1-44.9 L 411) MEAN CORPUSCULAR VOLUME (BEAKER) 97.4 fL 79.4-94.8 H (test code = 753) MEAN CORPUSCULAR HEMOGLOBIN 30.7 pg 25.6-32.2 (BEAKER) (test code = 751) MEAN CORPUSCULAR HEMOGLOBIN CONC 31.6 GM/DL 32.2-35.5 L (BEAKER) (test code = 752) RED CELL DISTRIBUTION WIDTH 13.2 % 11.7-14.4 (BEAKER) (test code = 412) PLATELET COUNT (BEAKER) (test 179 K/CU MM 150-450 code = 756) MEAN PLATELET VOLUME (BEAKER) 10.2 fL 9.4-12.3 (test code = 754) NUCLEATED RED BLOOD CELLS 0 /100 WBC 0-0 (BEAKER) (test code = 413) NEUTROPHILS RELATIVE PERCENT 93 % (BEAKER) (test code = 429) LYMPHOCYTES RELATIVE PERCENT 1 % (BEAKER) (test code = 430) MONOCYTES RELATIVE PERCENT 4 % (BEAKER) (test code = 431) EOSINOPHILS RELATIVE PERCENT 0 % (BEAKER) (test code = 432) BASOPHILS RELATIVE PERCENT 0 % (BEAKER) (test code = 437) NEUTROPHILS ABSOLUTE COUNT 8.73 K/ L 1.56-6.13 H (BEAKER) (test code = 670) LYMPHOCYTES ABSOLUTE COUNT 0.08 K/ L 1.18-3.74 L (BEAKER) (test code = 414) MONOCYTES ABSOLUTE COUNT (BEAKER) 0.36 K/ L 0.24-0.36 (test code = 415) EOSINOPHILS ABSOLUTE COUNT 0.04 K/ L 0.04-0.36 (BEAKER) (test code = 416) BASOPHILS ABSOLUTE COUNT (BEAKER) 0.02 K/ L 0.01-0.08 (test code = 417) IMMATURE GRANULOCYTES-RELATIVE 1 % 0-1 PERCENT (BEAKER) (test code = 2801) POCT-GLUCOSE [id number] 22:32:00 Test Item Value Reference Range Interpretation Comments POC-GLUCOSE METER 172 mg/dL 70-110 H : TESTED A T [facility] 6720 (BEAKER) (test code = [facility], 1538) [address]: Physical Therapist/Techni martita ID = [id number] for JOSIEOBDULIA NATALIE POCT-GLUCOSE [id number] 18:34:00 Test Item Value Reference Range Interpretation Comments POC-GLUCOSE METER 179 mg/dL 70-110 H : TESTED A T [facility] 6720 (BEAKER) (test code = [facility], 1538) [address]: Physical Therapist/Techni martita ID = [id number] for MARINA KAMINSKI RIN Plasma [id number] 18:19:55Alok Hernández Jr., MD 01/24/2020 6:33 PMCLINICAL PATHOLOGY APHERESIS PROCEDURE NOTE Pricilla [id number] Consulting Physician: Daniel of service: 01/24/2020Access: Acute CatheterAccess [facility] Procedure:Therapeutic Plasma Exchange (TPE): 5% Albumin (3) liter(s) Pre/Yulisa-Procedural MedicationCalcium Gluconate 3 gm(s) Indication for Procedure: Historical DSA Planned Apheresis Schedule: QD x3 Subjective: No acute events - commented on urticaria with last TPE. Patient Acti ve Problem List Diagnosis DM (diabetes mellitus) (HCC) HTN (hypertension) Anemia Hypothyroid Focal segmental glomerulosclerosis ESRD on peritoneal dialysis (HCC) Hyperkalemia Fever, unspecified fever cause Iron deficiency anemia, unspecified iron deficiency anemia type Shortness of breath Fatty liver Abnormal liver diagnostic imaging Lethargy Hypertensive urgency Encephalopathy acute Seizure disorder Liver masses End stage renal disease (HCC) Kidney transplant status, cadaveric S/P kidney transplant Hypertensive urgency Fluid overload MedicationsMedications Prior to Admission Medication Sig Dispense Refill Last Dose aspirin 81 MG EC tablet Take 81 mg by mouth daily. 01/19/2020 at Unknown time calcium carbonate (TUMS EX) 300 mg Chew Take 3 tablets by mouth daily. 01/19/2020 at Unknown time carvedilol (COREG) 25 MG tablet Take 1 tablet (25 mg total) by mouth 2 (two) times daily. 60 tablet 11 01/19/2020 at Unknown time cholecalciferol, vitamin D3, 5,000 unit Tab Take 5,000 Units by mouth daily. 01/19/2020 at Unknown time fenofibrate (LOFIBRA) 54 MG tablet Take 54 mg by mouth daily. 01/19/2020 at Unknown time fluticasone (FLONASE) 50 mcg/actuation nasal spray 2 sprays by Nasal route da shannon. 01/19/2020 at Unknown time insulin glargine (BASAGLAR KWIKPEN U-100 INSULIN) 100 unit/mL (3mL) InPn Inject 30 Units subcutaneously nightly . 01/19/2020 at Unknown time levETIRAcetam (KEPPRA) 500 MG tablet Take 500 mg by mouth 2 (two) times daily. 01/19/2020 at Unknown time losartan (COZAAR) 50 MG tablet Take 50 mg by mouth 2 (two) times daily. 01/19/2020 at Unknown time NIFEdipine (ADALAT CC) 60 MG 24 hr tablet Take 1 tablet (60 mg total) by mouth 2 (two) times daily. 60 [id number] 01/19/2020 at Unknown time pantoprazole (PROTONIX) 40 MG tablet Take 40 mg by mouth daily. 01/19/2020 at Unknown time PARoxetine (PAXIL) 20 MG tablet Take 20 mg by mouth every morning. 2 020 at Unknown time pravastatin (PRAVACHOL) 40 MG tablet Take 1 tablet (40 mg total) by mouth nightly. 30 tablet 11 01/19/2020 at Unknown time Scheduled Meds: acetaminophen 650 mg Oral Once carvediloL 25 mg Oral BID 25 mg at 01/24/20922 clotrimazole 10 mg Mouth/Throat TID after meals 10 mg at 01/24/20 1241 diphenhydrAMINE 25 mg Intravenous Once epoetin alejandro- epbx 10,000 Units Subcutaneous Once per day on Fri 10,000 Units at 01/21/202033 furosemide 80 mg Oral Daily insulin glargine 10 Units Subcutaneous BID 10 Units at 01/24/20919 levETIRAcetam 500 mg Oral BID 500 mg at 01/24/20922 NIFEdipine 60 mg Oral BID 60 mg at 01/24/20922 pantoprazole 40 mg Oral Daily 40 mg at 01/24/20922 PARoxetine 20 mg Oral Daily 20 mg at 01/24/20 1048 predniSONE 10 mg Oral Daily 10 mg at 01/24/20922 riTUXimab-pvvr (RUXIENCE) infusion 375 mg/m2 Intravenous Once sodium chloride 0.9% (NS) 10 mL Intravenous Q8H 10 mL at 01/24/20 0539 sulfamethoxazole-trimethoprim 80 mg of trimethoprim Oral Daily 80 mg of trimethoprim at 01/24/20922 tacrolimus 1.5 mg Oral Q12H ALT valGANciclovir 450 mg Oral Once per day on Fri 450 mg at 01/24/20922 Continuous Infusions: sodium chloride 0.9% (NS) PRN Meds:. acetaminophen-codeine calcium gluconate dextrose glucagon insulin regular labetalol simethicone sodium chloride 0.9% (NS) sodium chloride 0.9% (NS) AllergyAllergies Allergen Reactions Lipitor [Atorvastatin] Muscle cramps, able to tolerate pravastatin Physical Exam Vitals: BP/MAP: BP: 155/78MAP (mmHg): 104, Pulse: Heart Rate: 77,Temperature: Temp: 98.2 F (36.8 C) GEN: Awake, alert.CV: Rhythm:Regular, Rate:RegularCHEST: ClearEXT: no edemaACCESS: No erythema/exudate LabsCBC:Recent Labs Lab(s) Units 01/23/2004 WBC K/L 8.28.2 12.5* HGB GM/DL 7.5* 7.2* 7.9* HCT % 24.1* 22.6* 24.6* PLT K/CU MM 171 161 189 COAG: Recent Labs Lab(s) Units PROTIME seconds 13.7 INR 1.08 PTT seconds 28.4 CHEM: Recent Labs Lab(s)Units 01/23/2005 CALCIUM mg/dL -- 8.5 -- 8.6 -- -- 7.3* < > 8.3* CAION mmol/L 1.18 -- 1.09* -- 0.95* < > -- < > -- BUN mg/dL -- 24* -- 27* -- -- 33* < > 37* CREATININE mg/dL -- 2.81* -- 4.44* -- -- 8.86* < > 13.34* BILITOT mg/dL -- -- -- ---- -- -- -- 0.5 ALT U/L -- -- -- -- -- -- -- -- 12 AST U/L -- -- -- -- -- -- -- -- 18 < > = values in this interval not displayed. IMMUN: No results for in put(s): IGG, IGM, IGA in the last 168 hours. A/P1. Historical DSA - TPE immunomodulation in progress- this is the last planned procedure (#3). The Transplant team will manage the line going forward. Attending signature: Alok Hernández Jr., MD Date/time: 01/24/2020, 6:21 [facility], [id number] 17:50:00 Test Item Value Reference Range Interpretation Comments Calcium, Ion (test code = 1.18 mmol/L 1.12-1.27 1993-) pH, Blood (test code = 7.36 21446-9) LONNIE (test code = LONNIE) Range 1.12 - 1.27 [facility]CAL[facility], [id number] 17:50:00 Test Item Value Reference Range Interpretation Comments CALCIUM IONIZED (BEAKER) (test 1.18 mmol/L 1.12-1.27 code = 698) PH, BLOOD (BEAKER) (test code = 7.36 1810) Range 1.12 - 1.27BASIC METABOLIC [id number] 15:16:00 Test Item Value Reference Range Interpretation Comments SODIUM (BEAKER) 141 meq/L 136-145 (test code = 381) POTASSIUM (BEAKER) 4.1 meq/L 3.5-5.1 (test code = 379) CHLORIDE (BEAKER) 111 meq/L 98-107 H (test code = 382) CO2 (BEAKER) (test 18 meq/L 22-29 L code = 355) BLOOD UREA NITROGEN 24 mg/dL 7-21 H (BEAKER) (test code = 354) CREATININE (BEAKER) 2.81 mg/dL 0.57-1.25 H (test code = 358) GLUCOSE RANDOM 255 mg/dL 70-105 H (BEAKER) (test code = 652) CALCIUM (BEAKER) 8.5 mg/dL 8.4-10.2 (test code = 697) EGFR (BEAKER) (test 18 mL/min/1.73 ESTIMA BRII GFR IS code = 1092) sq m NOT ACCURATE CREATININE CLEARANCE IN PREDICTING GLOMERULAR FILTRATION RATE . ESTIMATED GFR I S NOT APPLICABLE FOR DIALYSIS PATIEN TS. Physical Therapist ID - [id number] 15:11:00 Test Item Value Reference Range Interpretation Comments PHOSPHORUS (BEAKER) (test code = 2.4 mg/dL 2.3-4.7 604) Physical Therapist ID - [id number] 15:11:00 Test Item Value Reference Range Interpretation Comments MAGNESIUM (BEAKER) (test code = 2.1 mg/dL 1.6-2.6 627) Physical Therapist ID - FSEHepatitis A antibody, [id number] 15:07:00 Test Item Value Reference Range Interpretation Comments Hep A IgG (test code = Reactive Nonreactive A 63414-2) LONNIE (test code = LONNIE) Physical Therapist ID - FSE Lab Interpretation (test Abnormal code = 72438-3) [facility] ANT[facility]ODY, [id number] 15:07:00 Test Item Value Reference Range Interpretation Comments HEPATITIS A IGG ANTIBODY (BEAKER) Reactive Nonreactive A (test code = 2797) Physical Therapist ID - FSEHepatitis C [id number] 15:01:00 Test Item Value Reference Range Interpretation Comments Hepatitis C Ab (test code = Nonreactive Nonreactive 77227-7) LONNIE (test code = LONNIE) Physical Therapist ID - FSE Lab Interpretation (test Normal code = 73107-0) [facility]HIV-[facility] Antigen with HIV-1/2 [id number] 15:01:00 Test Item Value Reference Range Interpretation Comments HIV-1 Antigen with HIV 1&2 Nonreactive Nonreactive Antibody (test code = 34431-9) LONNIE (test code = LONNIE) Physical Therapist ID - FSE Lab Interpretation (test Normal code = 24832-4) [facility]HEPAT[facility]IS C [id number] 15:01:00 Test Item Value Reference Range Interpretation Comments HEPATITIS C ANTIBODY (BEAKER) Nonreactive Nonreactive (test code = 367) Physical Therapist ID - FSEHIV-1 ANTIGEN WITH HIV-1/2 [id number] 15:01:00 Test Item Value Reference Range Interpretation Comments HIV-1 ANTIGEN WITH HIV 1\\T\\2 Nonreactive Nonreactive ANTIBODY (2) (BEAKER) (test code = 2586) Physical Therapist ID - FSECryptococcal [id number] 14:52:00 Test Item Value Reference Range Interpretation Comments Cryptococcal Antigen, Serum Negative Negative, Interference (test code = 44402-4) Lab Interpretation (test code Normal = 94395-2) [facility] HospitalCRYPTOCOCCAL [id number] 14:52:00 Test Item Value Reference Range Interpretation Comments CRYPTOCOCCAL ANTIGEN, SERUM Negative Negative, Interference (BEAKER) (test code = 1828) POCT-GLUCOSE [id number] 12:26:00 Test Item Value Reference Range Interpretation Comments POC-GLUCOSE METER 219 mg/dL 70-110 H : [facility] ([facility]ER[facility] (test code = [facility] [place], 1538) [address]: Physical Therapist/Techni martita ID = [id number] for RIN HIGGINS TACROLIMUS [id number] 11:26:00 Test Item Value Reference Range Interpretation Comments TACROLIMUS BLOOD (BEAKER) (test 7.6 ng/mL 10.0-20.0 L code = 657) Physical Therapist ID - AAHAMIDSurgically obtained culture + gram [id number] 08:42:00 Test Item Value Reference Interpretation Comments Range Result (test code = <1+ Same organism A Ref er to previous 6463-4) has been isolated culture of * - from cultures(s) of Staphloc occus the same body site epidermid is and collection date. Repeat identification and susceptibility testing performed only after consultation with the clinical microbiology laboratory. Gram Stain Result No organisms seen (test code = 1123) Lab Interpretation Abnormal (test code = 92995-3) [facility] GRAM [id number] 08:42:00 Test Item Value Reference Range Interpretation Comments CULTURE A <1+ Same organi sm has (BEAKER) (test been isolated from code = 1095) cultures(s) of the same body site and collection date . Repeat identifi cation and susceptibil ity testing perform ed only after consultat ion with the clinic al microbiology laboratory.Refe r to previous cultur e of* - Staphlococcus epidermidis GRAM STAIN 1+ WBCs RESULT (BEAKER) (test code = 1123) GRAM STAIN No organisms seen RESULT (BEAKER) (test code = 316353) PERITONEAL DIALYSIS EFFLUENT [id number] 08:39:00 Test Item Value Reference Interpretation Comments Range CULTURE (BEAKER) STAPHYLOCOCCUS A <1+ Staph ylococcus (test code = 1095) EPIDERMIDIS epidermid is Clindamycin (test S code = 10) Erythromycin (test R code = 4) Linezolid (test code S = 40) Nitrofurantoin (test S code = 23) Oxacillin (test code S = 14) Rifampin (test code = S 43) Tetracycline (test S code = 2) Trimethoprim + R Sulfamethoxazole (test code = 47) Vancomycin (test code S = 13) GRAM STAIN RESULT <1+ White blood (BEAKER) (test code = cells seen 1123) GRAM STAIN RESULT No organisms seen (BEAKER) (test code = 591116) GRAM STAIN RESULT From aerobic (BEAKER) (test code = bottle only: gram 298741) positive cocci in clusters GRAM STAIN RESULT The previo usly (BEAKER) (test code = report ed result 662506) <1+ White blood cells seen is n o longer being reported. POCT-GLUCOSE [id number] 08:20:00 Test Item Value Reference Range Interpretation Comments POC-GLUCOSE METER 223 mg/dL 70-110 H : TESTED A T [facility] 6720 (BEAKER) (test code = [facility] [place], 1538) [address]: Physical Therapist/Techni martita ID = [id number] for RIN HIGGINS CBC W/PLT COUNT & AUTO [id number] 06:29:00 Test Item Value Reference Range Interpretation Comments WHITE BLOOD CELL COUNT (BEAKER) 8.2 K/ L 3.5-10.5 (test code = 775) RED BLOOD CELL COUNT (BEAKER) 2.44 M/ L 3.93-5.22 L (test code = 761) HEMOGLOBIN (BEAKER) (test code = 7.5 GM/DL 11.2-15.7 L 410) HEMATOCRIT (BEAKER) (test code = 24.1 % 34.1-44.9 L 411) MEAN CORPUSCULAR VOLUME (BEAKER) 98.8 fL 79.4-94.8 H (test code = 753) MEAN CORPUSCULAR HEMOGLOBIN 30.7 pg 25.6-32.2 (BEAKER) (test code = 751) MEAN CORPUSCULAR HEMOGLOBIN CONC 31.1 GM/DL 32.2-35.5 L (BEAKER) (test code = 752) RED CELL DISTRIBUTION WIDTH 13.1 % 11.7-14.4 (BEAKER) (test code = 412) PLATELET COUNT (BEAKER) (test 171 K/CU MM 150-450 code = 756) MEAN PLATELET VOLUME (BEAKER) 10.1 fL 9.4-12.3 (test code = 754) NUCLEATED RED BLOOD CELLS 0 /100 WBC 0-0 (BEAKER) (test code = 413) NEUTROPHILS RELATIVE PERCENT 95 % (BEAKER) (test code = 429) LYMPHOCYTES RELATIVE PERCENT 1 % (BEAKER) (test code = 430) MONOCYTES RELATIVE PERCENT 3 % (BEAKER) (test code = 431) EOSINOPHILS RELATIVE PERCENT 0 % (BEAKER) (test code = 432) BASOPHILS RELATIVE PERCENT 0 % (BEAKER) (test code = 437) NEUTROPHILS ABSOLUTE COUNT 7.71 K/ L 1.56-6.13 H (BEAKER) (test code = 670) LYMPHOCYTES ABSOLUTE COUNT 0.10 K/ L 1.18-3.74 L (BEAKER) (test code = 414) MONOCYTES ABSOLUTE COUNT (BEAKER) 0.24 K/ L 0.24-0.36 (test code = 415) EOSINOPHILS ABSOLUTE COUNT 0.01 K/ L 0.04-0.36 L (BEAKER) (test code = 416) BASOPHILS ABSOLUTE COUNT (BEAKER) 0.01 K/ L 0.01-0.08 (test code = 417) IMMATURE GRANULOCYTES-RELATIVE 1 % 0-1 PERCENT (BEAKER) (test code = 2801) POCT-GLUCOSE [id number] 05:56:00 Test Item Value Reference Range Interpretation Comments POC-GLUCOSE METER 255 mg/dL 70-110 H : TESTED A T [facility] 6720 (BEAKER) (test code = [facility], 1538) [address]: Physical Therapist/Techni martita ID = [id number] for SANDRA GARNICA Prepare [id number] 23:54:00 Test Item Value Reference Range Interpretation Comments Unit ABO (test code = 3926473) O Pos UNIT NUMBER (test code = [id number] 934-0) Status (test code = 3133936) TX_TIMEINCHART Blood Bank Product (test code FFP = 2263) PRODUCT CODE (test code = W6308T82 933-2) [facility] [id number] 16:25:00 Test Item Value Reference Range Interpretation Comments POC-GLUCOSE METER 207 mg/dL 70-110 H : TESTED A T [facility] 6720 (BEAKER) (test code = [facility] [employer] [place], 1538) [address]: Physical Therapist/Techni martita ID = [id number] for Forrest Feng [id number] 14:19:00 Test Item Value Reference Range Interpretation Comments CALCIUM IONIZED (BEAKER) (test 1.09 mmol/L 1.12-1.27 L code = 698) PH, BLOOD (BEAKER) (test code = 7.35 1810) Range 1.12 - 1.27BASIC METABOLIC [id number] 12:00:00 Test Item Value Reference Range Interpretation Comments SODIUM (BEAKER) 141 meq/L 136-145 (test code = 381) POTASSIUM (BEAKER) 4.1 meq/L 3.5-5.1 Specimen slightly (test code = 379) hemolyzed CHLORIDE (BEAKER) 106 meq/L 98-107 (test code = 382) CO2 (BEAKER) (test 24 meq/L 22-29 code = 355) BLOOD UREA NITROGEN 27 mg/dL 7-21 H (BEAKER) (test code = 354) CREATININE (BEAKER) 4.44 mg/dL 0.57-1.25 H Specimen slightly (test code = 358) hemolyzed GLUCOSE RANDOM 205 mg/dL 70-105 H (BEAKER) (test code = 652) CALCIUM (BEAKER) 8.6 mg/dL 8.4-10.2 (test code = 697) EGFR (BEAKER) (test 11 mL/min/1.73 ESTIMA BRII GFR IS code = 1092) sq m NOT ACCURATE CREATININE CLEARANCE IN PREDICTING GLOMERULAR FILTRATION RATE . ESTIMATED GFR I S NOT APPLICABLE FOR DIALYSIS PATIEN TS. [id number] 12:00:00 Test Item Value Reference Range Interpretation Comments MAGNESIUM (BEAKER) 2.2 mg/dL 1.6-2.6 Specimen slightly (test code = 627) hemolyzed [id number] 12:00:00 Test Item Value Reference Range Interpretation Comments PHOSPHORUS (BEAKER) 5.1 mg/dL 2.3-4.7 H Specimen slightly (test code = 604) hemolyzed POCT-GLUCOSE [id number] 11:16:00 Test Item Value Reference Range Interpretation Comments POC-GLUCOSE METER 198 mg/dL 70-110 H : TESTED A T [facility] 6720 (BEAKER) (test code = [facility] [place], 1538) [address]: Physical Therapist/Techni martita ID = [id number] for THEA MINOR Plasma [id number] 09:09:09Celia English MD 01/23/2020 8:28 PMCLINICAL PATHOLOGY APHERESIS PROCEDURE NOTE Liz [id number] Consulting Physician: Gustavo of service: 01/23/2020Access: Acute CatheterAc cess Site: [facility] Procedure:Therapeutic Plasma Exchange (TPE): 5% Albumin (3) liter(s) Pre/Yulisa-Procedural MedicationCalcium Gluconate 3 gm(s) Indication for Procedure: Historical DSA/renal transplant Planned Apheresis Schedule: QD x 3 Subjective: Patient feeling better today. She is still having some post op incision site pain and now also has generalized abdominal pain due to gas. She is expected to move to the floor today after TPE. Patient Active Problem List Diagnosis DM (diabetes mellitus) (HCC) HTN (hypertension) Anemia Hypothyroid Focal segmental glomerulosclerosis ESRDon peritoneal dialysis (HCC) Hyperkalemia Fever, unspecified fever cause Iron deficiencyanemia, unspecified iron deficiency anemia type Shortness of breath Fatty liver Abnormal liver diagnostic imaging Lethargy Hypertensive urgency Encephalopathy acute Seizuredisorder Liver masses End stage renal disease (HCC) Kidney transplant status, cadaveric S/P kidney transplant Hypertensive urgency Fluid overload MedicationsMedications Prior to Admission Medication Sig Dispense Refill Last Dose aspirin 81 MG EC tablet Take 81 mg by mouthdaily. 01/19/2020 at Unknown time calcium carbonate (TUMS EX) 300 mg Chew Take 3 tablets by mouth daily. 01/19/2020 at Unknown time carvedilol (COREG) 25 MG tablet Take 1 tablet (25 mg total) by mouth 2 (two) times daily. 60 tablet 11 01/19/2020 at Unknown time cholecalciferol, vitamin D3, 5,000 unit Tab Take 5,000 Units by mouth daily. 01/19/2020 at Unknown time fenofibrate (LOFIBRA) 54 MG tablet Take 54 mg by mouth daily. 01/19/2020 at Unknown time fluticasone (FLONASE) 50 mcg/actuation nasal spray 2 sprays by Nasal route daily. 01/19/2020 at Unknown time insulin glargine (BASAGLAR KWIKPEN U-100 INSULIN) 100 unit/mL (3 mL) InPn Inject 30 Units subcutaneously nightly . 01/19/2020 at Unknown time levETIRAcetam (KEPPRA) 500 MG tablet Take 500 mg by mouth 2 (two) times daily. 01/19/2020 at Unknown time losartan (COZAAR) 50 MG tablet Take 50 mg by mouth 2 (two) times daily. 01/19/2020 at Unknown time NIFEdipine (ADALAT CC) 60 MG 24 hr tablet Take 1 tablet (60 mg total) by mouth 2 (two) times daily. 60 tablet 11 01/19/2020 at Unknown time pantoprazole (PROTONIX)40 MG tablet Take 40 mg by mouth daily. 01/19/2020 at Unknown time PARoxetine (PAXIL) 20 MG tablet Take 20 mg by mouth every morning. 2 01/19/2020 at Unknown time pravastatin (PRAVACHOL) 40 MG tablet Take 1 tablet (40 mg total) by mouth nightly. 30 tablet 11 01/19/2020 at Unknown time Scheduled Meds: acetaminophen 650 mg Oral Q6H YUNIER 650 mg at 01/23/20537 anticoagulant citrate dextrose solution A 500 mL Apheresis Once carvediloL 25 mg Oral BID 25 mg at 01/23/20840 ceFAZolin 2 g Intravenous Pre-Op chlorhexidine Topical (Top) Once clotrimazole 10 mg Mouth/Throat TID after meals 10 mg at 01/23/20840 epoetin alejandro-epbx 10,000 Units Subcutaneous Once per day on Fri 10,000 Units at 01/21/202033 levETIRAcetam 500 mg Oral BID 500 mg at 01/23/20840 NIFEdipine 60 mg Oral BID 60 mg at 01/23/20840 pantoprazole 40 mg Oral Daily 40 mg at 01/23/2041 sodium chloride 0.9% (NS) 500 mL Apheresis Once sodium chloride 0.9%(NS) 10 mL Intravenous Q8H 10 mL at 01/23/205 sulfamethoxazole-trimethoprim 80 mg of trimethoprim Oral Daily 80 mg of trimethoprim at 01/23/20840 tacrolimus 1 mg Oral Q12H ALT 1 mg at 01/23/20 0538 [START ON 01/24/2020] valGANciclovir 450 mg Oral Once per day on Fri Continuous Infusions: niCARdipine Stopped (01/22/20 1100) sodium chloride 0.9% (NS) sodium chloride 0.9% (NS) 1,000 mL (01/23/20 0600) PRN Meds:. dextrose glucagon hydrALAZINE HYDROmorphone insulin regular labetalol oxycodone sodium chloride 0.9% (NS) sodium chloride 0.9% (NS) AllergyAllergies Allergen Reactions Lipitor [Atorvastatin] Muscle cramps, able to tolerate pravastatin Physical Exam Vitals: BP/MAP: BP: (!) 155/99MAP (mmHg): 114, Pulse:Heart Rate: 78,Temperature: Temp: 98.9 F (37.2 C) GEN: Awake, alert,orientedHEENT: NormalCV: DeferredCHEST: DeferredABDOMEN: DeferredEXT: UnremarkableACCESS: Good flow LabsCBC:Recent Labs Lab(s) Units 01/21/2003 WBC K/L 8.2 12.5* -- 12.7* HGB GM/DL 7.2*7.9* 8.2* 6.8* HCT % 22.6* 24.6* 25.7* 21.5* PLT K/CU MM 161 189 -- 194 COAG: Recent Labs Lab(s) Units PROTIME seconds 13.7 INR 1.08 PTT seconds 28.4 CHEM: Recent Labs Lab(s) Units 01/22/2012 CALCIUM mg/dL -- -- 7.3* 7.3* 8.3*CAION mmol/L 0.95* 0.93* -- 0.96* -- BUN mg/dL -- -- 33* 38* 37* CREATININE mg/dL -- -- 8.86* 13.51* 13.34* BILITOT mg/dL -- -- -- -- 0.5 ALT U/L -- -- -- -- 12 AST U/L -- -- -- -- 18 A/P49 y.o. female undergoing TPE for historical DSA/renal transplant POD #2. This is procedure # 2 of 3 . The exchange was completed with Therapeutic Plasma Exchange (TPE): 5% Albumin (3) liter(s). No complications were noted. Final TPE will be performed tomorrow, 01/23. Attending signature: Celia English MD Date/time: 01/23/2020, 9:09 [facility] [id number] 08:26:00 Test Item Value Reference Range Interpretation Comments TACROLIMUS BLOOD (BEAKER) (test 10.6 ng/mL 10.0-20.0 code = 657) Physical Therapist ID - [id number] W/PLT COUNT & AUTO [id number] 04:35:00 Test Item Value Reference Range Interpretation Comments WHITE BLOOD CELL COUNT (BEAKER) 8.2 K/ L 3.5-10.5 (test code = 775) RED BLOOD CELL COUNT (BEAKER) 2.34 M/ L 3.93-5.22 L (test code = 761) HEMOGLOBIN (BEAKER) (test code = 7.2 GM/DL 11.2-15.7 L 410) HEMATOCRIT (BEAKER) (test code = 22.6 % 34.1-44.9 L 411) MEAN CORPUSCULAR VOLUME (BEAKER) 96.6 fL 79.4-94.8 H (test code = 753) MEAN CORPUSCULAR HEMOGLOBIN 30.8 pg 25.6-32.2 (BEAKER) (test code = 751) MEAN CORPUSCULAR HEMOGLOBIN CONC 31.9 GM/DL 32.2-35.5 L (BEAKER) (test code = 752) RED CELL DISTRIBUTION WIDTH 13.0 % 11.7-14.4 (BEAKER) (test code = 412) PLATELET COUNT (BEAKER) (test 161 K/CU MM 150-450 code = 756) MEAN PLATELET VOLUME (BEAKER) 10.1 fL 9.4-12.3 (test code = 754) NUCLEATED RED BLOOD CELLS 0 /100 WBC 0-0 (BEAKER) (test code = 413) NEUTROPHILS RELATIVE PERCENT 95 % (BEAKER) (test code = 429) LYMPHOCYTES RELATIVE PERCENT 1 % (BEAKER) (test code = 430) MONOCYTES RELATIVE PERCENT 3 % (BEAKER) (test code = 431) EOSINOPHILS RELATIVE PERCENT 0 % (BEAKER) (test code = 432) BASOPHILS RELATIVE PERCENT 0 % (BEAKER) (test code = 437) NEUTROPHILS ABSOLUTE COUNT 7.81 K/ L 1.56-6.13 H (BEAKER) (test code = 670) LYMPHOCYTES ABSOLUTE COUNT 0.09 K/ L 1.18-3.74 L (BEAKER) (test code = 414) MONOCYTES ABSOLUTE COUNT (BEAKER) 0.25 K/ L 0.24-0.36 (test code = 415) EOSINOPHILS ABSOLUTE COUNT 0.00 K/ L 0.04-0.36 L (BEAKER) (test code = 416) BASOPHILS ABSOLUTE COUNT (BEAKER) 0.01 K/ L 0.01-0.08 (test code = 417) IMMATURE GRANULOCYTES-RELATIVE 1 % 0-1 PERCENT (BEAKER) (test code = 2801) Prepare [id number] 23:54:00 Test Item Value Reference Range Interpretation Comments Unit ABO (test code = O Pos 1029933) UNIT NUMBER (test code = [id number] 934-0) Status (test code = 7169930) READY Blood Bank Product (test code RED BLOOD CELLS = 2263) PRODUCT CODE (test code = O1829A94 933-2) CROSSMATCH (test code = 2264) COMPATIBLE [facility] [id number] 23:20:00 Test Item Value Reference Range Interpretation Comments POC-GLUCOSE METER 244 mg/dL 70-110 H : TESTED A T [facility] 6720 (BEAKER) (test code = [facility]ILDA [facility], 1538) 24527: Physical Therapist/Techni martita ID = [id number] for JACK HELTON SHAJI POCT-GLUCOSE [id number] 18:09:00 Test Item Value Reference Range Interpretation Comments POC-GLUCOSE METER 230 mg/dL 70-110 H : TESTED A T [facility] 6720 (BEAKER) (test [facility] = 1538) 84632: Physical Therapist/Techni martita ID = [id number] for Molmicheal na, Nikki (cont ract) CALCIUM, [id number] 14:05:00 Test Item Value Reference Range Interpretation Comments CALCIUM IONIZED (BEAKER) (test 0.95 mmol/L 1.12-1.27 L code = 698) PH, BLOOD (BEAKER) (test code = 7.36 1810) Range 1.12 - 1.27Plasma [id number] 13:10:56Jose Preston RN 01/22/2020 2:06 PMLab Results Component Value Date GLUCOSE 185 (H) [...] completed TPE with 3L of FFP. Total 3g of Calcium gluconate was given. No transfusion reactions occurred throughout the procedure. VS stable. Report given to primary RN (Nikki).Jose Preston RNSeneca HospitalPOCT-GLUCOSE [id number] 12:43:00 Test Item Value Reference Range Interpretation Comments POC-GLUCOSE METER 190 mg/dL 70-110 H : TESTED A T [facility] 6720 (BEAKER) (test code [facility], = 1538) 73232: Physical Therapist/Techni martita ID = [id number] for Moli naNadjaNikki (cont ract) POCT-GLUCOSE [id number] 12:42:00 Test Item Value Reference Range Interpretation Comments POC-GLUCOSE METER 151 mg/dL 70-110 H : TESTED A T [facility] 6720 (BEAKER) (test code [facility], = 1538) 28343: Physical Therapist/Techni martita ID = [id number] for Moli na, Nikki (cont ract) CALCIUM, [id number] 12:10:00 Test Item Value Reference Range Interpretation Comments CALCIUM IONIZED (BEAKER) (test 0.93 mmol/L 1.12-1.27 L code = 698) PH, BLOOD (BEAKER) (test code = 7.40 1810) Range 1.12 - 1.27ECG 12 [id number] 08:32:10Interface, External Ris In - 01/22/2020 8:32 AM CDTVentricular Rate 67 BPMAtrial Rate 67 BPMP-R Interval 204 msQRS Duration 88 msQ-T Interval 486 msQTC Calculation(Bazett) 513 msP Peoa 60 degreesR Peoa -16 degreesT Pe[place] -12 degreesNormal sinus rhythmProlonged QTAbnormal ECGWhen compared with ECG of 17-MAY-2019 18:29,No significant change was foundConfirmed by MD MELONY, TEJ Portillo ([id number]) on 01/22/2020 8:32:08 [facility] HospitalTACROLIMUS [id number] 07:16:00 Test Item Value Reference Range Interpretation Comments TACROLIMUS BLOOD (BEAKER) (test 11.3 ng/mL 10.0-20.0 code = 657) Physical Therapist ID Emerald MAYRA WBASIC METABOLIC [id number] 04:19:00 Test Item Value Reference Range Interpretation Comments SODIUM (BEAKER) 135 meq/L 136-145 L (test code = 381) POTASSIUM (BEAKER) 4.1 meq/L 3.5-5.1 (test code = 379) CHLORIDE (BEAKER) 103 meq/L 98-107 (test code = 382) CO2 (BEAKER) (test 22 meq/L 22-29 code = 355) BLOOD UREA NITROGEN 33 mg/dL 7-21 H (BEAKER) (test code = 354) CREATININE (BEAKER) 8.86 mg/dL 0.57-1.25 H (test code = 358) GLUCOSE RANDOM 185 mg/dL 70-105 H (BEAKER) (test code = 652) CALCIUM (BEAKER) 7.3 mg/dL 8.4-10.2 L (test code = 697) EGFR (BEAKER) (test 5 mL/min/1.73 ESTIMAT ED GFR IS code = 1092) sq m NOT ACCURATE CREATININE CLEARANCE IN PREDICTING GLOMERULAR FILTRATION RATE . ESTIMATED GFR I S NOT APPLICABLE FOR DIALYSIS PATIEN TS. Physical Therapist ID - WILI [id number] 04:15:00 Test Item Value Reference Range Interpretation Comments PHOSPHORUS (BEAKER) (test code = 7.6 mg/dL 2.3-4.7 H 604) Physical Therapist ID - WILI [id number] 04:15:00 Test Item Value Reference Range Interpretation Comments MAGNESIUM (BEAKER) (test code = 1.7 mg/dL 1.6-2.6 627) Physical Therapist ID - WILI MVancomycin level, [id number] 04:10:00 Test Item Value Reference Range Interpretation Comments Vancomycin Rm (test 25.5 ug/mL code = 14915-5) LONNIE (test code = Reference Range: No LONNIE) NormalsOperator ID - WILI Iesha [facility] HospitalVANCOMYCIN LEVEL, [id number] 04:10:00 Test Item Value Reference Range Interpretation Comments VANCOMYCIN RANDOM (BEAKER) (test 25.5 ug/mL code = 523) Reference Range: No NormalsOperator ID - WILI MRAD, CHEST, 1 VIEW, NON DEPT 2020-01-22 03:57:00Dialysis 05/23Reason for exam:->on bipapShould this be performed at the bedside?->YesFINAL REPORT Chest one view. Clinical history: on bipap Comparison: Chest radiograph 05/17/2019. Technique: A single frontal view of the chest was obtained. Findings:There is a left IJ central venous catheter with tip in the left brachiocephalic vein.The cardiac silhouette is enlarged. There is pulmonary vascular congestion. There is is an opacity in the lateral left lung base which may represent atelectasis/or pneumonia. A small left pleural effusion cannot be excluded. Thereis no pneumothorax. Signed: Aleks Jamison MDReport Verified Date/Time: 01/22/2020 03:57:15 XR chest 1 view portable / [id number] 03:57:00Interface, External Ris In - 01/22/2020 4:00 AM CDTFINAL REPORT Chest one view. Clinical history: on bipap Comparison: Chest radiograph 05/17/2019. Technique: A single frontal view of the chest was obtained. Findings:There is a left IJ central venous catheter with tip in the left brachiocephalic vein.The cardiac silhouette is enlarged. There is pulmonary vascular congestion. There is is an opacity in the lateral left lung base which may represent atelectasis/or pneumonia. A small left pleural effusion cannot be excluded. There is no pneumothorax. Signed: Aleks Jamison MDReport Verified Date/Time: 01/22/2020 03:57:15 [facility] W/PLT COUNT & AUTO DIFFERENTIAL 2020-01-22 03:43:00 Test Item Value Reference Range Interpretation Comments WHITE BLOOD CELL COUNT (BEAKER) 12.5 K/ L 3.5-10.5 H (test code = 775) RED BLOOD CELL COUNT (BEAKER) 2.55 M/ L 3.93-5.22 L (test code = 761) HEMOGLOBIN (BEAKER) (test code = 7.9 GM/DL 11.2-15.7 L 410) HEMATOCRIT (BEAKER) (test code = 24.6 % 34.1-44.9 L 411) MEAN CORPUSCULAR VOLUME (BEAKER) 96.5 fL 79.4-94.8 H (test code = 753) MEAN CORPUSCULAR HEMOGLOBIN 31.0 pg 25.6-32.2 (BEAKER) (test code = 751) MEAN CORPUSCULAR HEMOGLOBIN CONC 32.1 GM/DL 32.2-35.5 L (BEAKER) (test code = 752) RED CELL DISTRIBUTION WIDTH 13.2 % 11.7-14.4 (BEAKER) (test code = 412) PLATELET COUNT (BEAKER) (test 189 K/CU MM 150-450 code = 756) MEAN PLATELET VOLUME (BEAKER) 9.7 fL 9.4-12.3 (test code = 754) NUCLEATED RED BLOOD CELLS 0 /100 WBC 0-0 (BEAKER) (test code = 413) NEUTROPHILS RELATIVE PERCENT 94 % (BEAKER) (test code = 429) LYMPHOCYTES RELATIVE PERCENT 1 % (BEAKER) (test code = 430) MONOCYTES RELATIVE PERCENT 4 % (BEAKER) (test code = 431) EOSINOPHILS RELATIVE PERCENT 0 % (BEAKER) (test code = 432) BASOPHILS RELATIVE PERCENT 0 % (BEAKER) (test code = 437) NEUTROPHILS ABSOLUTE COUNT 11.76 K/ L 1.56-6.13 H (BEAKER) (test code = 670) LYMPHOCYTES ABSOLUTE COUNT 0.13 K/ L 1.18-3.74 L (BEAKER) (test code = 414) MONOCYTES ABSOLUTE COUNT (BEAKER) 0.48 K/ L 0.24-0.36 H (test code = 415) EOSINOPHILS ABSOLUTE COUNT 0.00 K/ L 0.04-0.36 L (BEAKER) (test code = 416) BASOPHILS ABSOLUTE COUNT (BEAKER) 0.01 K/ L 0.01-0.08 (test code = 417) IMMATURE GRANULOCYTES-RELATIVE 1 % 0-1 PERCENT (BEAKER) (test code = 2801) POCT-GLUCOSE [id number] 23:41:00 Test Item Value Reference Range Interpretation Comments POC-GLUCOSE METER 201 mg/dL 70-110 H : TESTED A T [facility] 6720 (BEAKER) (test code = GILDA [place], 1538) 01484: Physical Therapist/Techni martita ID = [id number] for Co bb, Dania Hemoglobin and [id number] 22:08:00 Test Item Value Reference Range Interpretation Comments Hemoglobin (test code = 8.2 11.2- 15.7 GM/DL L 786-4) Hematocrit (test code = 25.7 % 34.1-44.9 L 4544-3) LONNIE (test code = LONNIE) Physical Therapist ID - [id number] Lab Interpretation (test Abnormal code = 28550-0) [facility] HospitalHEMOGLOBIN AND [id number] 22:08:00 Test Item Value Reference Range Interpretation Comments HEMOGLOBIN (BEAKER) (test code = 8.2 GM/DL 11.2-15.7 L 410) HEMATOCRIT (BEAKER) (test code = 25.7 % 34.1-44.9 L 411) Physical Therapist ID - [id number] [id number] 17:02:00 Test Item Value Reference Range Interpretation Comments ANTIBODY ID (BEAKER) UNID IgG (test code = 2253) Antibody Consult SIGNED OUT Nonspecific IgG (test code = 2479) reactivit y is detected. This is likely of limited clinica l significance an d an in vitro phenomeno n only. If transfusion is required, cross match compatible RBCs will be selected. Elect ronic Signature: Jazlyn Sánchez MD [facility] HospitalPrepare Leuko-Red [id number] 16:22:00 Test Item Value Reference Range Interpretation Comments Unit ABO (test code = O Pos 0198132) UNIT NUMBER (test code = [id number] 934-0) Status (test code = 3990367) READY Blood Bank Product (test code RED BLOOD CELLS = 2263) PRODUCT CODE (test code = O3629B04 933-2) CROSSMATCH (test code = 2264) COMPATIBLE [facility] METABOLIC [id number] 13:54:00 Test Item Value Reference Range Interpretation Comments SODIUM (BEAKER) 137 meq/L 136-145 (test code = 381) POTASSIUM (BEAKER) 4.5 meq/L 3.5-5.1 (test code = 379) CHLORIDE (BEAKER) 103 meq/L 98-107 (test code = 382) CO2 (BEAKER) (test 21 meq/L 22-29 L code = 355) BLOOD UREA NITROGEN 38 mg/dL 7-21 H (BEAKER) (test code = 354) CREATININE (BEAKER) 13.51 mg/dL 0.57-1.25 H (test code = 358) GLUCOSE RANDOM 179 mg/dL 70-105 H (BEAKER) (test code = 652) CALCIUM (BEAKER) 7.3 mg/dL 8.4-10.2 L (test code = 697) EGFR (BEAKER) (test 3 mL/min/1.73 ESTIMAT ED GFR IS code = 1092) sq m NOT ACCURATE CREATININE CLEARANCE IN PREDICTING GLOMERULAR FILTRATION RATE . ESTIMATED GFR I S NOT APPLICABLE FOR DIALYSIS PATIEN TS. Physical Therapist ID - NABEEL FCBC W/PLT COUNT & AUTO [id number] 13:48:00 Test Item Value Reference Range Interpretation Comments WHITE BLOOD CELL COUNT (BEAKER) 12.7 K/ L 3.5-10.5 H (test code = 775) RED BLOOD CELL COUNT (BEAKER) 2.17 M/ L 3.93-5.22 L (test code = 761) HEMOGLOBIN (BEAKER) (test code = 6.8 GM/DL 11.2-15.7 L 410) HEMATOCRIT (BEAKER) (test code = 21.5 % 34.1-44.9 L 411) MEAN CORPUSCULAR VOLUME (BEAKER) 99.1 fL 79.4-94.8 H (test code = 753) MEAN CORPUSCULAR HEMOGLOBIN 31.3 pg 25.6-32.2 (BEAKER) (test code = 751) MEAN CORPUSCULAR HEMOGLOBIN CONC 31.6 GM/DL 32.2-35.5 L (BEAKER) (test code = 752) RED CELL DISTRIBUTION WIDTH 13.2 % 11.7-14.4 (BEAKER) (test code = 412) PLATELET COUNT (BEAKER) (test 194 K/CU MM 150-450 code = 756) MEAN PLATELET VOLUME (BEAKER) 9.6 fL 9.4-12.3 (test code = 754) NUCLEATED RED BLOOD CELLS 0 /100 WBC 0-0 (BEAKER) (test code = 413) NEUTROPHILS RELATIVE PERCENT 97 % (BEAKER) (test code = 429) LYMPHOCYTES RELATIVE PERCENT 1 % (BEAKER) (test code = 430) MONOCYTES RELATIVE PERCENT 1 % (BEAKER) (test code = 431) EOSINOPHILS RELATIVE PERCENT 0 % (BEAKER) (test code = 432) BASOPHILS RELATIVE PERCENT 0 % (BEAKER) (test code = 437) NEUTROPHILS ABSOLUTE COUNT 12.29 K/ L 1.56-6.13 H (BEAKER) (test code = 670) LYMPHOCYTES ABSOLUTE COUNT 0.07 K/ L 1.18-3.74 L (BEAKER) (test code = 414) MONOCYTES ABSOLUTE COUNT (BEAKER) 0.18 K/ L 0.24-0.36 L (test code = 415) EOSINOPHILS ABSOLUTE COUNT 0.00 K/ L 0.04-0.36 L (BEAKER) (test code = 416) BASOPHILS ABSOLUTE COUNT (BEAKER) 0.01 K/ L 0.01-0.08 (test code = 417) IMMATURE GRANULOCYTES-RELATIVE 1 % 0-1 PERCENT (BEAKER) (test code = 2801) U/S, TRANSPLANT, [id number] 13:44:00Dialysis 05/23Reason for exam:->s/p kidney transplant- assess vesselsFINAL REPORT U/S, TRANSPLANT, KIDNEY CLINICAL HISTORY: s/p kidney transplant-assess vessels COMPARISON: Renal ultrasound 08/16/2016. TECHNIQUE: Real time grayscale, color, power, and spectral Doppler ultrasound of transplanted kidney was performed. FINDINGS: Transplanted kidney: Location: Right lower abdomen.Length = 10.7 cm.Collecting system: No hydronephrosis.Cortical thickness: Normal.Echogenicity: Normal.Perirenal fluid collections: None.Other findings: None. Urinary bladder: Normally distended. Color Doppler: Normal Doppler flow throughout the renal allograft.Renal artery: Patent and appropriate direction of blood flow.Renal vein: Patent and appropriate direction of blood flow. Intrarenal resistive indices: 0.6 in the upper pole.0.65 in the interpolar region.0.71 in thelower pole. Normal acceleration times in the upper and lower poles, borderline acceleration time inthe mid pole, possibly artifactual, 0.08 seconds. Peak systolic velocities: Mid renal artery: 111 cm/sAnastomosis: 380 cm/sIliac artery (pre-anastomosis): 127 cm/sIliac artery (post-anastomosis): 140 cm/s IMPRESSION: 1. Normal odonnell-scale evaluation of transplanted kidney. No hydronephrosis. 2. Patent renal artery and vein. Elevated peak systolic velocity in the transplant renal artery anastomosis, 380 cm/s, concerning for stenosis, with otherwise unremarkable intrarenal waveforms. Signed: Agnes Narvaez Verified Date/Time: 01/21/2020 13:44:09 Reading Location: [address] Radiology Reading Room US transplant [id number] 13:44:00Interface, External Ris In - 01/21/2020 1:46 PM CDTFINAL REPORT U/S, TRANSPLANT, KIDNEY CLINICAL HISTORY: s/p kidney transplant- assess vessels COMPARISON: Renal ultrasound 08/16/2016. TECHNIQUE: Real time grayscale, color, power, and spectral Doppler ultrasound of transplanted kidney was performed. FINDINGS: Transplanted kidney: Location: Right lower abdomen.Length = 10.7 cm.Collecting system: No hydronephrosis.Cortical thickness: Normal.Echogenicity: Normal.Perirenal fluid collections: None.Other findings: None. Urinary bladder: Normally distended. Color Doppler: Normal Doppler flow throughout the renal allograft.Renal artery: Patent and appropriate direction of blood flow.Renal vein: Patent and appropriate direction of blood flow. Intrarenal resistive indices: 0.6 in the upper pole.0.65 in the interpolar region.0.71 in the lower pole. Normal acceleration times in the upper and lower poles, borderline acceleration time in the mid pole, possibly artifactual, 0.08 seconds. Peak systolic velocities: Mid renal artery: 111 cm/sAnastomosis: 380 cm/sIliac artery (pre-anastomosis): 127 cm/sIliac artery (post-anastomosis): 140 cm/s IMPRESSION: 1. Normal odonnell-scale evaluation of transplanted kidney. No hydronephrosis. 2. Patent renal artery and vein. Elevated peak systolic velocity in the transplant renal artery anastomosis, 380 cm/s, concerning for stenosis, with otherwise unremarkable intrarenal waveforms. Signed: Lorie Narvaez Verified Date/Time: 01/21/2020 13:44:09 Reading Location: [address] Radiology Reading [facility]PL[facility] [id number] 12:28:00 Test Item Value Reference Range Interpretation Comments PLATELET COUNT 186 K/CU MM 150-450 Specimen cont aminated (BEAKER) (test code after re testing BA# = 756) [id number] is a corrected resul t. Previous result was 186 K/CU MM on 01/20 at 1201 CDT Physical Therapist ID - [id number] [id number] 12:28:00PlateletsComment: Specimen contaminated after retesting BA# [id number] This is a corrected result. Previous result was 186 K/CU MM on 01/21/2020 at 1201 CDTCHI [facility] MEDICAL CENTEROperator ID- [id number] CenterCALCIUM, [id number] 12:00:00 Test Item Value Reference Range Interpretation Comments CALCIUM IONIZED (BEAKER) (test 0.96 mmol/L 1.12-1.27 L code = 698) PH, BLOOD (BEAKER) (test code = 7.34 1810) Blood gas, [id number] 11:59:00 Test Item Value Reference Range Interpretation Comments pH, Arterial (test code = 7.34 7.35-7.45 L 2744-1) pCO2, Arterial (test code 42 35- 45 mmHg = 2019-8) pO2, Arterial (test code = 137 80- 90 mmHg H 2703-7) O2 Sat, Arterial (test 98.6 % 96-97 H code = 2708-6) HCO3, Arterial (test code 22 mmol/L 21-29 = 1960-4) Base Excess, Arterial -3.5 mmol/L -2-3 L (test code = 1925-7) Patient Temperature (test 37.2 C code = 8310-5) FIO2 (test code = 1819) 40 % LONNIE (test code = LONNIE) Only if arterial line present. Lab Interpretation (test Abnormal code = 54626-4) [facility] HospitalHGB/HCT (H&H)-Stat [id number] 11:59:00 Test Item Value Reference Range Interpretation Comments Hemoglobin (test code = 7.3 g/dL 12-15 L 786-4) Hematocrit (test code = 21.0 % 36-45 L 4544-3) LONNIE (test code = LONNIE) Only if arterial line present. Lab Interpretation (test Abnormal code = 96521-6) [facility] HospitalGlucose-Stat [id number] 11:59:00 Test Item Value Reference Range Interpretation Comments Glucose (test code = 170 mg/dL 70-110 H 2345-7) LONNIE (test code = LONNIE) Only if arterial line present. Lab Interpretation (test Abnormal code = 47915-9) [facility] [id number] 11:59:00 Test Item Value Reference Range Interpretation Comments Sodium (test code = 135 meq/L 136-145 L 2951-2) LONNIE (test code = LONNIE) Only if arterial line present. Lab Interpretation (test Abnormal code = 41845-7) [facility] HospitalPotassium-Stat [id number] 11:59:00 Test Item Value Reference Range Interpretation Comments Potassium (test code = 4.4 meq/L 3.6-5.5 2823-3) LONNIE (test code = LONNIE) Only if arterial line present. Lab Interpretation (test Normal code = 92046-5) [facility] CenterODIUM NA-STAT [id number] 11:59:00 Test Item Value Reference Range Interpretation Comments SODIUM (BEAKER) (test code = 381) 135 meq/L 136-145 L Only if arterial line present.POTASSIUM-STAT [id number] 11:59:00 Test Item Value Reference Range Interpretation Comments POTASSIUM (BEAKER) (test code = 4.4 meq/L 3.6-5.5 379) Only if arterial line present.BLOOD GAS, [id number] 11:59:00 Test Item Value Reference Range Interpretation Comments PH ARTERIAL (BEAKER) (test code = 7.34 7.35-7.45 L 383) PCO2 ARTERIAL (BEAKER) (test code 42 mmHg 35-45 = 384) PO2 ARTERIAL (BEAKER) (test code 137 mmHg 80-90 H = 385) O2 SATURATION ARTERIAL (BEAKER) 98.6 % 96.0-97.0 H (test code = 386) HCO3 ARTERIAL (BEAKER) (test code 22 mmol/L 21-29 = 388) BASE EXCESS ARTERIAL (BEAKER) -3.5 mmol/L -2.0-3.0 L (test code = 387) PATIENT TEMPERATURE (BEAKER) 37.2 C (test code = 1818) FIO2 (BEAKER) (test code = 1819) 40.0 % Only if arterial line present.GLUCOSE-STAT [id number] 11:59:00 Test Item Value Reference Range Interpretation Comments GLUCOSE RANDOM (BEAKER) (test code 170 mg/dL 70-110 H = 652) Only if arterial line present.HGB/HCT (H&H) - STAT [id number] 11:59:00 Test Item Value Reference Range Interpretation Comments HEMOGLOBIN (BEAKER) (test code = 7.3 g/dL 12.0-15.0 L 410) HEMATOCRIT (BEAKER) (test code = 21.0 % 36.0-45.0 L 411) Only if arterial line present.Type and screen, [id number] 03:26:00 Test Item Value Reference Range Interpretation Comments ABO/RH AUTOMATED O POSITIVE (BEAKER) (test code = 2260) Ab Scrn (test code = POSITIVE Screen on Echo 1 was 890-4) 0 ? 0 (3+ contr ol); Physical Therapist DLR re viewed it as 0 0 0 3. But previous operat or BJN put it on Echo 2 as ? ? 1 3 or Positi ve. [facility]omatic ONLY)2020-01-20 23:28:00 Test Item Value Reference Range Interpretation Comments SARS-COV2/RT-PCR Negative Not Detected, (test code = Negative, See 22815-6) external report for linked test SARS-COV-2 [facility] PERFORMING LAB (test code = 11404-0) LONNIE (test code = Negative results do not LONNIE) preclude SARS-CoV-2 infection and should not be used as [...] of the Act. Fact Sheet for Healthcare Providers:https://www.FoxyTunes/Documents/Xper t%20Xpress%20SARS%20CoV- 2/Fact%20Sheets/302-1482 %51DWTE-OKP-1%20HEALTHCA RE%20PROVIDERS%20FACT%20 SHEET.pdf Fact Sheet for Healthcare Patients:https://www.Launchupsid.ClickOn/Documents/Xpert %20Xpress%20SARS%20CoV-2 /Fact%20Sheets/302-8801% 34QHZB-YXD-2%20PATIENT%2 0FACT%20SHEET.pdf Performing Laboratory:[facility] [place] [address] [facility] ([facility] & REF LABS)2020-01-20 23:28:00 Test Item Value Reference Range Interpretation Comments SARS-COV2/RT-PCR (test code Negative Not Detected, Negative, = 0138813) See external report for linked test SARS-COV-2 PERFORMING LAB [facility] (test code = 3260372) Negative results do not preclude SARS-CoV-2 infection and should not be used as the sole basis for patient management decisions. Negative results must be combined with clinical observations, patient history, and epidemiological information. A false negative result may occur if a specimen is improperly collected, transported or handled.The limit of detection for this assay is 250 copies/mL.This SARS CoV-2 test is a rapid, real-time RT-PCR test intended for the qualitative detection of nucleic acid from SARS-CoV-2 in a nasopharyngeal swab specimen collected from individuals suspected of COVID-19 by their healthcare provider.This test has not been Food and Drug [...] is revoked under Section 564(g) of the Act.Fact Sheet for Healthcare Pro viders:https://www.YourTime Solutions/Documents/Xpert%20Xpress%20SARS%20CoV-2/Fact%20Sh eets/3023802%51VYZV-AZB-2%20HEALTHCARE%20PROVIDERS%20FACT%20SHEET.pdfFact Sheet for Healthcare Patients:https://www.Infinite Monkeys.ClickOn/Documents/Xpert%20Xpress%20SARS%20CoV-2/Fact%20Sheets/3023801%20SARS-COV -2%20PATIENT%20FACT%20SHEET.pdfPerforming Laboratory:[facility], [place] [address]SMHQKYMNAMZRX METABOLIC [id number] 22:27:00 Test Item Value Reference Range Interpretation Comments TOTAL PROTEIN 7.1 gm/dL 6.0-8.3 (BEAKER) (test code = 770) ALBUMIN (BEAKER) 3.4 g/dL 3.5-5.0 L (test code = 1145) ALKALINE PHOSPHATASE 68 U/L 40-150 (BEAKER) (test code = 346) BILIRUBIN TOTAL 0.5 mg/dL 0.2-1.2 (BEAKER) (test code = 377) SODIUM (BEAKER) (test 138 meq/L 136-145 code = 381) POTASSIUM (BEAKER) 3.7 meq/L 3.5-5.1 (test code = 379) CHLORIDE (BEAKER) 100 meq/L 98-107 (test code = 382) CO2 (BEAKER) (test 28 meq/L 22-29 code = 355) BLOOD UREA NITROGEN 37 mg/dL 7-21 H (BEAKER) (test code = 354) CREATININE (BEAKER) 13.34 mg/dL 0.57-1.25 H (test code = 358) GLUCOSE RANDOM 101 mg/dL 70-105 (BEAKER) (test code = 652) CALCIUM (BEAKER) 8.3 mg/dL 8.4-10.2 L (test code = 697) AST (SGOT) (BEAKER) 18 U/L 5-34 (test code = 353) ALT (SGPT) (BEAKER) 12 U/L 6-55 (test code = 347) EGFR (BEAKER) (test 3 mL/min/1.73 ESTIMAT ED GFR IS code = 1092) sq m NOT ACCURATE CREATININE CLEARANCE IN PREDICTING GLOMERULAR FILTRATION RATE . ESTIMATED GFR I S NOT APPLICABLE FOR DIALYSIS PATIEN TS. Physical Therapist ID - [id number] 22:06:00 Test Item Value Reference Range Interpretation Comments PTT (test code = 73601-0) 28.4 22.5- 36.0 seconds Lab Interpretation (test code = Normal 14403-3) [facility]00 Test Item Value Reference Range Interpretation Comments PARTIAL THROMBOPLASTIN TIME 28.4 seconds 22.5-36.0 (BEAKER) (test code = 760) Prothrombin time/[id number] 22:05:00 Test Item Value Reference Range Interpretation Comments Protime (test code = 13.7 11.9- 14.2 5902-2) seconds INR (test code = 1.08 <=5.90 6301-6) LONNIE (test code = LONNIE) Effective 10/07/2018: PT Reference Range ChangeNew: 11.9-14.2 Previous: 11.7-14.7 RECOMMENDED COUMADIN/WARFARIN INR THERAPY RANGESSTANDARD DOSE: 2.0-3.0 Includes: PROPHYLAXIS for venous thrombosis, systemic embolization; TREATMENT for venous thrombosis and/or pulmonary embolus.HIGH RISK: Target INR is 2.5-3.5 for patients wiht mechanical heart valves. Lab Interpretation Normal (test code = 90304-1) [facility]/[id number] 22:05:00 Test Item Value Reference Range Interpretation Comments PROTIME (BEAKER) (test code = 13.7 seconds 11.9-14.2 759) INR (BEAKER) (test code = 370) 1.08 <=5.90 Effective 10/07/2018: PT Reference Range ChangeNew: 11.9-14.2 Previous: 11.7- 14.7RECOMMENDED COUMADIN/WARFARIN INR THERAPY RANGESSTANDARD DOSE: 2.0-3.0 Includes: PROPHYLAXIS for venous thrombosis, systemic embolization; TREATMENT for venous thrombosis and/or pulmonary embolus.HIGH RISK: Target INR is2.5-3.5 for patients wiht mechanical heart valves.CBC W/PLT COUNT & AUTO [id number] 21:57:00 Test Item Value Reference Range Interpretation Comments WHITE BLOOD CELL COUNT (BEAKER) 9.4 K/ L 3.5-10.5 (test code = 775) RED BLOOD CELL COUNT (BEAKER) 2.67 M/ L 3.93-5.22 L (test code = 761) HEMOGLOBIN (BEAKER) (test code = 8.3 GM/DL 11.2-15.7 L 410) HEMATOCRIT (BEAKER) (test code = 25.5 % 34.1-44.9 L 411) MEAN CORPUSCULAR VOLUME (BEAKER) 95.5 fL 79.4-94.8 H (test code = 753) MEAN CORPUSCULAR HEMOGLOBIN 31.1 pg 25.6-32.2 (BEAKER) (test code = 751) MEAN CORPUSCULAR HEMOGLOBIN CONC 32.5 GM/DL 32.2-35.5 (BEAKER) (test code = 752) RED CELL DISTRIBUTION WIDTH 13.0 % 11.7-14.4 (BEAKER) (test code = 412) PLATELET COUNT (BEAKER) (test 236 K/CU MM 150-450 code = 756) MEAN PLATELET VOLUME (BEAKER) 9.5 fL 9.4-12.3 (test code = 754) NUCLEATED RED BLOOD CELLS 0 /100 WBC 0-0 (BEAKER) (test code = 413) NEUTROPHILS RELATIVE PERCENT 71 % (BEAKER) (test code = 429) LYMPHOCYTES RELATIVE PERCENT 20 % (BEAKER) (test code = 430) MONOCYTES RELATIVE PERCENT 5 % (BEAKER) (test code = 431) EOSINOPHILS RELATIVE PERCENT 2 % (BEAKER) (test code = 432) BASOPHILS RELATIVE PERCENT 0 % (BEAKER) (test code = 437) NEUTROPHILS ABSOLUTE COUNT 6.67 K/ L 1.56-6.13 H (BEAKER) (test code = 670) LYMPHOCYTES ABSOLUTE COUNT 1.90 K/ L 1.18-3.74 (BEAKER) (test code = 414) MONOCYTES ABSOLUTE COUNT (BEAKER) 0.45 K/ L 0.24-0.36 H (test code = 415) EOSINOPHILS ABSOLUTE COUNT 0.19 K/ L 0.04-0.36 (BEAKER) (test code = 416) BASOPHILS ABSOLUTE COUNT (BEAKER) 0.03 K/ L 0.01-0.08 (test code = 417) IMMATURE GRANULOCYTES-RELATIVE 2 % 0-1 H PERCENT (BEAKER) (test code = 2801) CT, CHEST, WITHOUT [id number] 20:20:00Dialysis lease assess for covid- pending kidney transplantFINAL REPORT CLINICAL INDICATION: Unlisted reason for exam COMPARISON: 02/20/2018 Multiple axial images of the chest were performed without IV contrast. This exam was performed according to our departmental dose-optimization program, which includes automated exposure control, adjustment of the mA and/or kV according to patient size and/or use of the iterative reconstruction technique. FINDINGS: Lung parenchyma: There is a region of dependent groundglass opacity in the right lo wer lobe. Curvilinear opacity in the left greater than right lung bases suggests atelectasis or scarring. The lungs are otherwise clear. Pleural effusion: None. Pneumothorax: None. Tracheobronchial tree: No significant findings. Pulmonary vasculature: No significant findings. Cardiac contours and great vessels: Cardiomegaly. Atherosclerotic calcification of the coronary arteries, aorta and great vessels arising from the arch. Mediastinum: No significant findings. Lymph Nodes: No adenopathy in the mediastinum or pascual. Skeleton: No acute abnormality. IMPRESSION: Dependent groundglass opacity in the right lower lobe probably reflects atelectasis though pneumonitis, including the possibility of viral infection, should be excluded clinically. If of further clinical concern a repeat, prone CT chest canbe considered. Cardiomegaly. Signed: Juaquin Hook MDReport Verified Date/Time: 01/20/2020 20:20:02 CT chest without IV contrast 2020-01-20 20:20:00Interface, External Ris In - 01/20/2020 8:23 PM CDTFINAL REPORT CLINICAL INDICATION: Unlisted reason for exam COMPARISON: 02/20/2018 Multiple axial images of the chest were performed without IV contrast. This exam was performed according to our departmental dose- optimization program, which includes automated exposure control, adjustment of the mA and/or kV according to patient size and/or use of the iterative reconstruction technique. FINDINGS: Lung parenchyma: There is a region of dependent groundglass opacity in the right lower lobe. Curvilinear opacity in the left greater than right lung bases suggests atelectasis or scarring. The lungs are otherwise clear. Pleural effusion: None. Pneumothorax: None. Tracheobronchial tree: No significant findings. Pulmonary vasculature: No significant findings. Cardiac contours and great vessels: Cardiomegaly. Atherosclerotic calcification of the coronary arteries, aorta and great vessels arising from the arch. Mediastinum: No significant findings. Lymph Nodes: No adenopathy in the mediastinum or pascual. Skeleton: No acute abnormality. IMPRESSION: Dependent groundglass opacity in the right lower lobe probably reflects atelectasis though pneumonitis, including the possibility of viral infection, should be excluded clinically. If of further clinical concern a repeat, prone CT chest can be considered. Cardiomegaly. Signed: Juaquin Hook MDReport Verified Date/Time: 01/20/2020 20:20:02 [facility] [id number] 20:12:00 Test Item Value Reference Range Interpretation Comments Appearance (test code = Clear Clear 9335-1) Color (test code = Straw Colorless, Straw 6824-7) RBCs (test code = 14 <=1 /cu mm H 86953-7) Adjusted WBC Count (test 40 <=5 /cu mm H code = 00679-7) Lining Cells (test code = 0 <=1 /cu mm 55974-6) % Segs (test code = 28 % 80903-4) % Lymphs (test code = 8 % 82856-5) % Monos (test code = 64 % 13276-8) % Eos (test code = 0 % 58991-3) % Baso (test code = 0 % 76683-1) Container Body Fluid EDTA Tube (test code = 2873) LONNIE (test code = LONNIE) Source unknown called to RN at 194401/20/20 no knowledge about it. Lab Interpretation (test Abnormal code = 19219-6) [facility] WITH [id number] 20:12:00 Test Item Value Reference Range Interpretation Comments APPEARANCE FLUID (BEAKER) (test Clear Clear code = 510) COLOR FLUID (BEAKER) (test code = Straw Colorless, Straw 511) RBC FLUID (BEAKER) (test code = 14 /cu mm <=1 H 513) ADJUSTED WBC FLUID (BEAKER) (test 40 /cu mm <=5 H code = 1691) LINING CELLS (BEAKER) (test code = 0 /cu mm <=1 1590) NEUTROPHILS FLUID (BEAKER) (test 28 % code = 1656) LYMPHS FLUID (BEAKER) (test code = 8 % 488) MONO/MACROPHAGE FLUID (BEAKER) 64 % (test code = 489) EOSINOPHILS FLUID (BEAKER) (test 0 % code = 491) BASO FLUID (BEAKER) (test code = 0 % 492) CONTAINER BODY FLUID (BEAKER) EDTA Tube (test code = 2873) Source unknown called to RN at 194401/20/20 no knowledge about it.Sputum Culture + Gram [id number] 15:06:00 Test Item Value Reference Range Interpretation Comments Result (test code = 3+ Normal respiratory 6463-4) dawna present Gram Stain Result <1+ gram variable (test code = 1123) [facility]obacilli [facility] [id number] 15:06:00 Test Item Value Reference Range Interpretation Comments CULTURE (BEAKER) 3+ Normal respiratory (test code = 1095) dawna present GRAM STAIN RESULT <1+ WBCs (BEAKER) (test code = 1123) GRAM STAIN RESULT 0-5 epithelial cells (BEAKER) (test code = 00753) GRAM STAIN RESULT <1+ gram variable (BEAKER) (test code coccobacilli = 18041) POCT-GLUCOSE [id number] 08:09:00 Test Item Value Reference Range Interpretation Comments POC-GLUCOSE METER 157 mg/dL 70-110 H : TESTED A T [facility] [address] (BEAKER) (test code = [place], 1538) [address]: Physical Therapist/Techni martita ID = [id number] for WILTON HERNANDEZ BASIC METABOLIC [id number] 06:58:00 Test Item Value Reference Range Interpretation Comments SODIUM (BEAKER) 139 meq/L 136-145 (test code = 381) POTASSIUM (BEAKER) 4.7 meq/L 3.5-5.1 (test code = 379) CHLORIDE (BEAKER) 103 meq/L 98-107 (test code = 382) CO2 (BEAKER) (test 25 meq/L 22-29 code = 355) BLOOD UREA NITROGEN 56 mg/dL 7-21 H (BEAKER) (test code = 354) CREATININE (BEAKER) 14.79 mg/dL 0.57-1.25 H (test code = 358) GLUCOSE RANDOM 165 mg/dL 70-105 H (BEAKER) (test code = 652) CALCIUM (BEAKER) 7.9 mg/dL 8.4-10.2 L (test code = 697) EGFR (BEAKER) (test 3 mL/min/1.73 ESTIMAT ED GFR IS code = 1092) sq m NOT ACCURATE CREATININE CLEARANCE IN PREDICTING GLOMERULAR FILTRATION RATE . ESTIMATED GFR I S NOT APPLICABLE FOR DIALYSIS PATIEN TS. POCT-GLUCOSE [id number] 21:48:00 Test Item Value Reference Range Interpretation Comments POC-GLUCOSE METER 121 mg/dL 70-110 H : TESTED A T [facility] 6720 (BEAKER) (test code = GILDA [place], 1538) [address]: Physical Therapist/Techni martita ID = [id number] for APIGE PATEL BASIC METABOLIC [id number] 17:55:00 Test Item Value Reference Range Interpretation Comments SODIUM (BEAKER) 136 meq/L 136-145 (test code = 381) POTASSIUM (BEAKER) 4.8 meq/L 3.5-5.1 (test code = 379) CHLORIDE (BEAKER) 101 meq/L 98-107 (test code = 382) CO2 (BEAKER) (test 23 meq/L 22-29 code = 355) BLOOD UREA NITROGEN 50 mg/dL 7-21 H (BEAKER) (test code = 354) CREATININE (BEAKER) 13.70 mg/dL 0.57-1.25 H (test code = 358) GLUCOSE RANDOM 178 mg/dL 70-105 H (BEAKER) (test code = 652) CALCIUM (BEAKER) 8.5 mg/dL 8.4-10.2 (test code = 697) EGFR (BEAKER) (test 3 mL/min/1.73 ESTIMAT ED GFR IS code = 1092) sq m NOT ACCURATE CREATININE CLEARANCE IN PREDICTING GLOMERULAR FILTRATION RATE . ESTIMATED GFR I S NOT APPLICABLE FOR DIALYSIS PATIEN TS. [id number] 17:50:00 Test Item Value Reference Range Interpretation Comments MAGNESIUM (BEAKER) (test code = 2.2 mg/dL 1.6-2.6 627) B-type Natriuretic Factor (BNP)2019-05-17 17:34:00 Test Item Value Reference Range Interpretation Comments BNP (test code = 57300-0) 211 pg/mL 0-100 H Lab Interpretation (test code = Abnormal 53930-3) [facility]rop[facility] [id number] 17:34:00 Test Item Value Reference Range Interpretation Comments Troponin I (test code = 0.01 ng/mL 0-0.03 29567-1) LONNIE (test code = LONNIE) Troponin I (TnI) levels must be interpreted in the context of the presenting symptoms and the clinical findings. Elevated TnI levels indicate myocardial damage, but are not specific for ischemic heart disease. Elevated TnI levels are seen in patients with other cardiac conditions (including myocarditis and congestive heart failure), and slight TnI elevations occur in patients with other conditions, including sepsis, renal failure, acidosis, acute neurological disease, and persistent tachyarrhythmia. Lab Interpretation (test Normal code = 03279-8) [facility] HospitalB-TYPE NATRIURETIC FACTOR (BNP)2019-05-17 17:34:00 Test Item Value Reference Range Interpretation Comments B-TYPE NATRIURETIC PEPTIDE (BEAKER) 211 pg/mL 0-100 H (test code = 700) TROPONIN [id number] 17:34:00 Test Item Value Reference Range Interpretation Comments TROPONIN I (BEAKER) (test code = 0.01 ng/mL 0.00-0.03 397) Troponin I (TnI) levels must be interpreted in the context of the presenting symptoms and the clinical findings. Elevated TnI levels indicate myocardial damage, but are not specific for ischemic heart disease. Elevated TnI levels are seen in patients with other cardiac conditions (including myocarditis and congestive heart failure), and slight TnI elevations occur in patients with other conditions, including sepsis, renal failure, acidosis, acute neurological disease, and persistent tachyarrhythmia.PT/[id number] 17:11:00 Test Item Value Reference Range Interpretation Comments Protime (test code = 13.4 11.9- 14.2 5902-2) seconds INR (test code = 1.1 <=5.9 6301-6) PTT (test code = 26.4 22.5- 36.0 63850-9) seconds LONNIE (test code = LONNIE) Effective 10/07/2018: PT Reference Range ChangeNew: 11.9-14.2 Previous: 11.7-14.7 RECOMMENDED COUMADIN/WARFARIN INR THERAPY RANGESSTANDARD DOSE: 2.0-3.0 Includes: PROPHYLAXIS for venous thrombosis, systemic embolization; TREATMENT for venous thrombosis and/or pulmonary embolus.HIGH RISK: Target INR is 2.5-3.5 for patients wiht mechanical heart valves. Lab Interpretation Normal (test code = 64544-2) [facility] HospitalPT/[id number] 17:11:00 Test Item Value Reference Range Interpretation Comments PROTIME (BEAKER) (test code = 13.4 seconds 11.9-14.2 759) INR (ESTRELLA) (test code = 370) 1.1 <=5.9 PARTIAL THROMBOPLASTIN TIME 26.4 seconds 22.5-36.0 (ESTRELLA) (test code = 760) Effective 10/07/2018: PT Reference Range ChangeNew: 11.9-14.2 Previous: 11.7- 14.7RECOMMENDED COUMADIN/WARFARIN INR THERAPY RANGESSTANDARD DOSE: 2.0-3.0 Includes: PROPHYLAXIS for venous thrombosis, systemic embolization; TREATMENT for venous thrombosis and/or pulmonary embolus.HIGH RISK: Target INR is2.5-3.5 for patients wiht mechanical heart valves.RAD, CHEST, 1 VIEW, NON [id number] 17:11:00Dialysis 05/23Reason for exam:->HYPERTENSIONReason for exam:- >COUGHReason for exam:->HEADACHEIs the patient ?->NoFINAL REPORT TECHNIQUE: Single view of the chest. COMPARISON: 08/03/2018 FINDINGS: The cardiac silhouette is enlarged. Mediastinum is unremarkable. Lungs are clear. No acute skeletal abnormality. Soft tissues appear unremarkable. IMPRESSION: No acute cardiopulmonary disease. Signed: Joel Fengeport Verified Date/Time: 05/17/2019 17:11:18 Reading Location: [facility] Radiology Reading Room CT, BRAIN, WITHOUT [id number] 17:07:00Dialysis 05/23FINAL REPORT CT, BRAIN, WITHOUT IV CONTRAST INDICATION: headache TECHNIQUE: Noncontrast axial imaging was obtained from the vertex to the skull base. Axial images were reconstructed using a bone algorithm. DOSE REDUCTION: Dose modulation, iterative reconstruction, and/or weight-based adjustment of the mA/kV was utilized to reduce the radiation dose to as low as reasonably achievable. COMPARISON: None. FINDINGS: Intracranial: No intracranial hemorrhage or abnormal extra-axial collection. No evidence of acute territorial infarct. No mass effect. No hydrocephalus. Osseous structures: No fracture. No suspicious lesion. Paranasal sinuses and mastoid air cells: No evidence of sinusitis. Mastoids are clear. Orbital contents: Globes are intact. IMPRESSION: No acute intracranialhemorrhage or mass effect. If there is persistent clinical concern for intracranial pathology, MR examination is recommended for further characterization. Signed: Tiffanie Browning Verified Date/Time: 05/17/2019 17:07:10 CT brain without IV [id number] 17:07:00Interface, External Ris In - 05/17/2019 5:[address], BRAIN, WITHOUT IV CONTRAST INDICATION: headache TECHNIQUE: Noncontrast axial imaging was obtained from the vertex to the skull base. Axial images were reconstructed using a bone algorithm. DOSE REDUCTION: Dose m odulation, iterative reconstruction, and/or weight-based adjustment of the mA/kV was utilized to reduce the radiation dose to as low as reasonably achievable. COMPARISON: None. FINDINGS: Intracranial: No intracranial hemorrhage or abnormal extra-axial collection. No evidence of acute territorial infarct. No mass effect. No hydrocephalus. Osseous structures: No fracture. No suspicious lesion. Paranasal sinuses and mastoid air cells: No evidence of sinusitis. Mastoids are clear. Orbital contents: Globes are intact. IMPRESSION: No acute intracranial hemorrhage or mass effect. If there is persistent clinical concern for intracranial pathology, MR examination is recommended for further characterization. Signed: Tiffanie Browning Verified Date/Time: 05/17/2019 17:07:10 [facility] W/PLT COUNT & AUTO [id number] 17:02:00 Test Item Value Reference Range Interpretation Comments WHITE BLOOD CELL COUNT (BEAKER) 6.2 K/ L 3.5-10.5 (test code = 775) RED BLOOD CELL COUNT (BEAKER) 3.05 M/ L 3.93-5.22 L (test code = 761) HEMOGLOBIN (BEAKER) (test code = 10.2 GM/DL 11.2-15.7 L 410) HEMATOCRIT (BEAKER) (test code = 30.0 % 34.1-44.9 L 411) MEAN CORPUSCULAR VOLUME (BEAKER) 98.4 fL 79.4-94.8 H (test code = 753) MEAN CORPUSCULAR HEMOGLOBIN 33.4 pg 25.6-32.2 H (BEAKER) (test code = 751) MEAN CORPUSCULAR HEMOGLOBIN CONC 34.0 GM/DL 32.2-35.5 (BEAKER) (test code = 752) RED CELL DISTRIBUTION WIDTH 13.8 % 11.7-14.4 (BEAKER) (test code = 412) PLATELET COUNT (BEAKER) (test 229 K/CU MM 150-450 code = 756) MEAN PLATELET VOLUME (BEAKER) 10.1 fL 9.4-12.3 (test code = 754) NUCLEATED RED BLOOD CELLS 0 /100 WBC 0-0 (BEAKER) (test code = 413) NEUTROPHILS RELATIVE PERCENT 57 % (BEAKER) (test code = 429) LYMPHOCYTES RELATIVE PERCENT 32 % (BEAKER) (test code = 430) MONOCYTES RELATIVE PERCENT 8 % (BEAKER) (test code = 431) EOSINOPHILS RELATIVE PERCENT 2 % (BEAKER) (test code = 432) BASOPHILS RELATIVE PERCENT 1 % (BEAKER) (test code = 437) NEUTROPHILS ABSOLUTE COUNT 3.52 K/ L 1.56-6.13 (BEAKER) (test code = 670) LYMPHOCYTES ABSOLUTE COUNT 1.97 K/ L 1.18-3.74 (BEAKER) (test code = 414) MONOCYTES ABSOLUTE COUNT (BEAKER) 0.49 K/ L 0.24-0.36 H (test code = 415) EOSINOPHILS ABSOLUTE COUNT 0.13 K/ L 0.04-0.36 (BEAKER) (test code = 416) BASOPHILS ABSOLUTE COUNT (BEAKER) 0.03 K/ L 0.01-0.08 (test code = 417) IMMATURE GRANULOCYTES-RELATIVE 1 % 0-1 PERCENT (BEAKER) (test code = 2801) BASIC METABOLIC [id number] 16:09:00 Test Item Value Reference Range Interpretation Comments SODIUM (BEAKER) 140 meq/L 136-145 (test code = 381) POTASSIUM (BEAKER) 5.2 meq/L 3.5-5.1 H (test code = 379) CHLORIDE (BEAKER) 101 meq/L 98-107 (test code = 382) CO2 (BEAKER) (test 28 meq/L 22-29 code = 355) BLOOD UREA NITROGEN 40 mg/dL 7-21 H (BEAKER) (test code = 354) CREATININE (BEAKER) 15.08 mg/dL 0.57-1.25 H (test code = 358) GLUCOSE RANDOM 112 mg/dL 70-105 H (BEAKER) (test code = 652) CALCIUM (BEAKER) 8.2 mg/dL 8.4-10.2 L (test code = 697) EGFR (BEAKER) (test 3 mL/min/1.73 ESTIMAT ED GFR IS code = 1092) sq m NOT ACCURATE CREATININE CLEARANCE IN PREDICTING GLOMERULAR FILTRATION RATE . ESTIMATED GFR I S NOT APPLICABLE FOR DIALYSIS PATIEN TS. Hepatic function [id number] 16:01:00 Test Item Value Reference Range Interpretation Comments Protein, Total (test code = 2885-2) 7.8 6.0- 8.3 gm/dL Albumin (test code = 95360-4) 4.0 g/dL 3.5-5 Total Bilirubin (test code = 0.6 mg/dL 0.2-1.2 1974-2) Bilirubin, Direct (test code = 0.2 mg/dL 0.1-0.5 1967-7) Alkaline Phosphatase (test code = 59 U/L 40-150 6768-6) AST (test code = 1920-8) 15 U/L 5-34 ALT (test code = 1742-6) 16 U/L 6-55 Lab Interpretation (test code = Normal 82872-5) [facility] [id number] 16:01:00 Test Item Value Reference Range Interpretation Comments TOTAL PROTEIN (BEAKER) (test code = 7.8 gm/dL 6.0-8.3 770) ALBUMIN (BEAKER) (test code = 1145) 4.0 g/dL 3.5-5.0 BILIRUBIN TOTAL (BEAKER) (test code 0.6 mg/dL 0.2-1.2 = 377) BILIRUBIN DIRECT (BEAKER) (test 0.2 mg/dL 0.1-0.5 code = 706) ALKALINE PHOSPHATASE (BEAKER) (test 59 U/L 40-150 code = 346) AST (SGOT) (BEAKER) (test code = 15 U/L 5-34 353) ALT (SGPT) (BEAKER) (test code = 16 U/L 6-55 347) PROTHROMBIN [id number] 15:47:00 Test Item Value Reference Range Interpretation Comments PROTIME (BEAKER) (test code = 13.0 seconds 11.9-14.2 759) INR (BEAKER) (test code = 370) 1.0 <=5.9 Effective 10/07/2018: PT Reference Range ChangeNew: 11.9-14.2 Previous: 11.7- 14.7RECOMMENDED COUMADIN/WARFARIN INR THERAPY RANGESSTANDARD DOSE: 2.0-3.0 Includes: PROPHYLAXIS for venous thrombosis, systemic embolization; TREATMENT for venous thrombosis and/or pulmonary embolus.HIGH RISK: Target INR is2.5-3.5 for patients wiht mechanical heart valves.CBC W/PLT COUNT & AUTO [id number] 15:37:00 Test Item Value Reference Range Interpretation Comments WHITE BLOOD CELL COUNT (BEAKER) 6.4 K/ L 3.5-10.5 (test code = 775) RED BLOOD CELL COUNT (BEAKER) 3.01 M/ L 3.93-5.22 L (test code = 761) HEMOGLOBIN (BEAKER) (test code = 9.9 GM/DL 11.2-15.7 L 410) HEMATOCRIT (BEAKER) (test code = 29.0 % 34.1-44.9 L 411) MEAN CORPUSCULAR VOLUME (BEAKER) 96.3 fL 79.4-94.8 H (test code = 753) MEAN CORPUSCULAR HEMOGLOBIN 32.9 pg 25.6-32.2 H (BEAKER) (test code = 751) MEAN CORPUSCULAR HEMOGLOBIN CONC 34.1 GM/DL 32.2-35.5 (BEAKER) (test code = 752) RED CELL DISTRIBUTION WIDTH 12.9 % 11.7-14.4 (BEAKER) (test code = 412) PLATELET COUNT (BEAKER) (test 198 K/CU MM 150-450 code = 756) MEAN PLATELET VOLUME (BEAKER) 9.8 fL 9.4-12.3 (test code = 754) NUCLEATED RED BLOOD CELLS 0 /100 WBC 0-0 (BEAKER) (test code = 413) NEUTROPHILS RELATIVE PERCENT 57 % (BEAKER) (test code = 429) LYMPHOCYTES RELATIVE PERCENT 33 % (BEAKER) (test code = 430) MONOCYTES RELATIVE PERCENT 6 % (BEAKER) (test code = 431) EOSINOPHILS RELATIVE PERCENT 3 % (BEAKER) (test code = 432) BASOPHILS RELATIVE PERCENT 1 % (BEAKER) (test code = 437) NEUTROPHILS ABSOLUTE COUNT 3.60 K/ L 1.56-6.13 (BEAKER) (test code = 670) LYMPHOCYTES ABSOLUTE COUNT 2.08 K/ L 1.18-3.74 (BEAKER) (test code = 414) MONOCYTES ABSOLUTE COUNT (BEAKER) 0.41 K/ L 0.24-0.36 H (test code = 415) EOSINOPHILS ABSOLUTE COUNT 0.17 K/ L 0.04-0.36 (BEAKER) (test code = 416) BASOPHILS ABSOLUTE COUNT (BEAKER) 0.03 K/ L 0.01-0.08 (test code = 417) IMMATURE GRANULOCYTES-RELATIVE 1 % 0-1 PERCENT (BEAKER) (test code = 2801) CT, ABDOMEN, [id number] 17:50:00Dialysis 05/23 Liver mass protocol. Patient is on peritoneal dialysis nightly. Liver mass protocol.Patient is on peritoneal dialysis nightly.FINAL REPORT CT of the abdomen, with and without contrast Clinical History:Liver lesions, screening for HCC, liver mass protocol Technique: CT of the abdomen is performed before and after intravenous contrast administration. This exam was performed according to our departmental dose optimization program which includes automated exposure control, adjustment of the mA and/or kV according to patient's size and/or use of iterative reconstructive technique. Comparison Film: September 28, 2018, December 17, 2017, October 29, 2017, March 19, 2017 Discussion: Visualized lung bases are unremarkable. Liver is enlarged, and measures 23.5 cm sagittally. There are two hypervascular nodular foci at the hepatic dome, each measuring approximately 1.7 cm, without significant interval change whencompared to multiple prior exams. A third hypervascular focus is seen in segment 4 anteriorly, measuring 1.3 cm. There is also a stable 1.1 cm hypervascular nodule in segment 6. A peripheral hypervascular focus in the right lobe is stable as well. No definite washout is identified. There is no new lesion. No biliary ductal dilatation. Status post cholecystectomy. Hepatic vasculature is patent. Main portal vein measures 14 mm. The spleen is mildly enlarged measuring 13.5 cm sagittally. The pancreas, a drenal glands are unremarkable. Kidneys are atrophic, no mass, hydronephrosis or radiopaque stone. No evidence of bowel obstruction. There is a small amount of ascites. A peritoneal dialysis catheter is present. Osseous structures demonstrate mild degenerative changes. Impression: Hepatosplenomegaly. Stable enhancing foci in liver. Atrophic [place] kidneys. Small amount of ascites. Signed: Meghann Hood MDReport Verified Date/Time: 03/16/2019 17:50:59 Reading Location: [facility] B1 C013X Ortho Consult Reading Room CT abdomen with/without contrast 2019-03-16 17:50:00Interface, External Ris In - 03/16/2019 5:[address] of the abdomen, with and without contrast Clinical History: Liver lesions, screening for HCC, liver mass protocol Technique: CT of the abdomen is performed before and after intravenous contrast administration. This exam was performed according to our departmental dose optimization program which includes automated exposure control, adjustment of the mA and/or kV according to patient's size and/or use of iterative reconstructive technique. Comparison Film: September 28, 2018, December 17, 2017, October 29, 2017, March 19, 2017 Discussion: Visualized lung bases are unremarkable. Liver is enlarged, and measures 23.5 cm sagittally. There are two hypervascular nodular foci at the hepatic dome, each measuring approximately 1.7 cm, without significant interval change when compared to multiple prior exams. A third hypervascular focus is seen in segment 4 anteriorly, measuring 1.3 cm. There is also a stable 1.1 cm hypervascular nodule in segment 6. A peripheral hypervascular focus in the right lobe is stable as well. Nodefinite washout is identified. There is no new lesion. No biliary ductal dilatation. Status post cholecystectomy. Hepatic vasculature is patent. Main portal vein measures 14 mm. The spleen is mildly enlarged measuring 13.5 cm sagittally. The pancreas, adrenal glands are unremarkable. Kidneys are atrophic, no mass, hydronephrosis or radiopaque stone. No evidence of bowel obstruction. There is a smallamount of ascites. A peritoneal dialysis catheter is present. Osseous structures demonstrate mild degenerative changes. Impression: Hepatosplenomegaly. Stable enhancing foci in liver. Atrophic [place] kidneys. Small amount of ascites. 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 Check r epeat EEGDate(s) of EE11/03/2018 DATE OF REPORT:11/03/2018 [id number] EEG Number: [id number] Test Location: Inpatient ICU Start time:0957 am Stop time:1027 am ICD-10: R56.9 Unspecified Convulsions CPT Code: 30493 HISTORY: 48 y/o F with h/o status epilepticus. MEDICATION THAT COULD AFFECT EEG: Levetiracetam, Gabapentin TECHNICAL SUMMARY: This is a digital video-EEG recorded with 32 input channels reviewed with bipolar and referential montages using the modified combinatorial system nomenclature. DESCRIPTION OF RECORD: During the maximally alert state a 8-9 Hz posterior dominant rhythm was seen that was symmetric, reactive to eye opening and well regulated. More anteriorly, low voltage frontocentralbeta predominated. Drowsiness was characterized by alpha attenuation and increased frontocentral theta, vertex sharp transients. Stage 2 sleep was not reached. SIGNIFICANT VIDEO EVENTS: None SIGNIFICANT ELECTROCARDIOGRAM EVENTS: None HV: Hyperventilation was performed for 3 minutes with good effort. Mild slowing was seen with HV. PHOTIC STIMULATION: Photic stimulation was done from 3-18 Hz; no photic driving was seen; photoparoxysmal responses were absent. IMPRESSION: Normal Awake and Drowsy EEG CLINICAL CORRELATION: An EEG without epileptiform discharges does not exclude the possibility of epilepsy. It the clinical suspicion of epilepsy remains, consider additional EEG recordings capturing sleep state. Mauri Thompson MD Neurophysiology Fellow I have reviewed the electroencephalogram and this report and agree with its interpretation. Mayda Metcalf MD Neurophysiology Attending [facility], MULTI, PHARM, [id number] 13:17:00Dialysis 05/23FINAL REPORT PROCEDURE: MYOCARDIAL PERFUSION SPECT IMAGING (, pravastatin 2-Day Stress/Rest)CPT CODE: 93520 INDICATION: Renal transplant evaluation CARDIOVASCULAR PROFILE:CAD History: NoneSymptoms: NoneRisk Factors: Diabetes, hypertension, obesity, hyperlipidemiaBMI: 32.4 800, 1917,Medications: None STRESS PROTOCOL:Pharmacologic stress was achieved with a 10-second intravenous infusion of Regadenoson 0.4 mg. The radiopharmaceutical was administered 30 seconds after the start of the Regadenoson infusion. IMAGING PROTOCOL:30.3 mCi of Tc-99m sestamibi was injected intravenously at peak stress, and gated SPECT images were obtained. Then on a separate day, 32.5 mCi of Tc- 99m sestamibi was injected intravenously at rest, and non-gated SPECT images were obtained. Image quality is good. REST FINDINGS:HR: 61/minBP: 132/72 mmHgPrelim. EKG: Normal sinus rhythm, prolonged QT.Perfusion: There is a moderate severity decreased anterior wall intensity.LV Volume: Normal.RV Volume: Normal.STRESS FINDINGS:HR: 76/min (44% of MPHR)BP: 134/72 mmHgPrelim. EKG: No ischemic changes.Symptoms: None (treatment not required).Perfusion: There is a moderate severity decreased anterior wall intensity.Wall Motion: Normal (LVEF 58%).LV Volume: Not significantly changed from rest. IMPRESSION:1. Probably normal study.2. Probably normal myocardial perfusion. The decreased anterior wall intensity is mostconsistent with breast attenuation artifact..3. Normal stress LVEF.4. Normal extracardiac tracer distribution.5. The prior study dated 06/17/2013 reported normal study with normal myocardial perfusion. Signed: Destinee Rodriguesort Verified Date/Time: 10/19/2018 13:17:31 Reading Location: [address] Reading Room ALPHA FETOPROTEIN (AFP), TUMOR [id number] 14:16:00 Test Item Value Reference Range Interpretation Comments ALPHA-FETOPROTEIN (BEAKER) (test 2.0 ng/mL <10.0 code = 1094) BASIC METABOLIC [id number] 14:03:00 Test Item Value Reference Range Interpretation Comments SODIUM (BEAKER) 136 meq/L 136-145 (test code = 381) POTASSIUM (BEAKER) 4.4 meq/L 3.5-5.1 (test code = 379) CHLORIDE (BEAKER) 94 meq/L 98-107 L (test code = 382) CO2 (BEAKER) (test 27 meq/L 22-29 code = 355) BLOOD UREA NITROGEN 50 mg/dL 7-21 H (BEAKER) (test code = 354) CREATININE (BEAKER) 14.95 mg/dL 0.57-1.25 H (test code = 358) GLUCOSE RANDOM 113 mg/dL 70-105 H (BEAKER) (test code = 652) CALCIUM (BEAKER) 9.9 mg/dL 8.4-10.2 (test code = 697) EGFR (BEAKER) (test 3 mL/min/1.73 ESTIMAT ED GFR IS code = 1092) sq m NOT ACCURATE CREATININE CLEARANCE IN PREDICTING GLOMERULAR FILTRATION RATE . ESTIMATED GFR I S NOT APPLICABLE FOR DIALYSIS PATIEN TS. HEPATIC FUNCTION [id number] 14:03:00 Test Item Value Reference Range Interpretation Comments TOTAL PROTEIN (BEAKER) (test code = 8.6 gm/dL 6.0-8.3 H 770) ALBUMIN (BEAKER) (test code = 1145) 3.9 g/dL 3.5-5.0 BILIRUBIN TOTAL (BEAKER) (test code 0.8 mg/dL 0.2-1.2 = 377) BILIRUBIN DIRECT (BEAKER) (test 0.2 mg/dL 0.1-0.5 code = 706) ALKALINE PHOSPHATASE (BEAKER) (test 62 U/L 40-150 code = 346) AST (SGOT) (BEAKER) (test code = 9 U/L 5-34 353) ALT (SGPT) (BEAKER) (test code = < U/L 6-55 L 347) CBC W/PLT COUNT & AUTO [id number] 13:26:00 Test Item Value Reference Range Interpretation Comments WHITE BLOOD CELL COUNT (BEAKER) 10.4 K/ L 3.5-10.5 (test code = 775) RED BLOOD CELL COUNT (BEAKER) 2.99 M/ L 3.93-5.22 L (test code = 761) HEMOGLOBIN (BEAKER) (test code = 9.0 GM/DL 11.2-15.7 L 410) HEMATOCRIT (BEAKER) (test code = 27.8 % 34.1-44.9 L 411) MEAN CORPUSCULAR VOLUME (BEAKER) 93.0 fL 79.4-94.8 (test code = 753) MEAN CORPUSCULAR HEMOGLOBIN 30.1 pg 25.6-32.2 (BEAKER) (test code = 751) MEAN CORPUSCULAR HEMOGLOBIN CONC 32.4 GM/DL 32.2-35.5 (BEAKER) (test code = 752) RED CELL DISTRIBUTION WIDTH 13.6 % 11.7-14.4 (BEAKER) (test code = 412) PLATELET COUNT (BEAKER) (test 304 K/CU MM 150-450 code = 756) MEAN PLATELET VOLUME (BEAKER) 9.2 fL 9.4-12.3 L (test code = 754) NUCLEATED RED BLOOD CELLS 0 /100 WBC 0-0 (BEAKER) (test code = 413) NEUTROPHILS RELATIVE PERCENT 61 % (BEAKER) (test code = 429) LYMPHOCYTES RELATIVE PERCENT 26 % (BEAKER) (test code = 430) MONOCYTES RELATIVE PERCENT 7 % (BEAKER) (test code = 431) EOSINOPHILS RELATIVE PERCENT 5 % (BEAKER) (test code = 432) BASOPHILS RELATIVE PERCENT 1 % (BEAKER) (test code = 437) NEUTROPHILS ABSOLUTE COUNT 6.39 K/ L 1.56-6.13 H (BEAKER) (test code = 670) LYMPHOCYTES ABSOLUTE COUNT 2.66 K/ L 1.18-3.74 (BEAKER) (test code = 414) MONOCYTES ABSOLUTE COUNT (BEAKER) 0.71 K/ L 0.24-0.36 H (test code = 415) EOSINOPHILS ABSOLUTE COUNT 0.53 K/ L 0.04-0.36 H (BEAKER) (test code = 416) BASOPHILS ABSOLUTE COUNT (BEAKER) 0.05 K/ L 0.01-0.08 (test code = 417) IMMATURE GRANULOCYTES-RELATIVE 1 % 0-1 PERCENT (BEAKER) (test code = 2801) CT, ABDOMEN, [id number] 09:51:00Dialysis 05/23FINAL REPORT ABDOMINAL CT DATED 09/28/2018 COMPARISON: October 29, 2017 CLINICAL INFORMATION: triple phase liver protocol, liver lesions, abnormal liver diagnostic imaging TECHNIQUE: Axial images of the abdomen were obtained from diaphragm to the upper pelvis with and without intravenous contrast. This exam was performed according to our departmental dose-optimization program, which includes automated exposure control, adjustment of the mA and/or kV according to patient size and/or use of interactive reconstruction technique. COMMENT: Liver is enlarged measuring 21.7 cm in the right midclavicular line. Spleen is enlarged measuring 12.4 x 5.4 x 11.8 cm. 3 vague early enhancing foci are seen in the right hepatic dome measuring up to 1.4 cm, previously 1.5 cm, in diameter.A 1.4 X 1.8 cm, previously 1.6 x 1.7 cm, early enhancing focus is seen in the segment 4B of the liver. A stable 1.1 cm enhancing focus is seen in inferior right hepatic lobe. Delayed washout is seen inthe lesions in the right hepatic dome lesion and in the segment to 4B of the liver. The splenic, superior mesenteric, portal, and hepatic veins are patent. Main portal vein measures 1.5 cm diameter. Gallbladder is contracted. No gallstone or biliary dilatation is noted. Pancreas and adrenals are unremarkable. Both kidneys are atrophic consistent medical renal disease. No hydronephrosis, solid or cystic mass is seen in either kidney. Diverticular disease is seen in the large bowel without diverticulitis. Small bowel is normal in caliber. Appendix is not visualized. Trace amount of free fluid is seen in the abdomen and pelvis. IMPRESSION: 1. Hepatosplenomegaly.2. Stable early enhancing foci in the liver. Some of the hepatic lesions demonstrate delayed washout.3. Diverticulosis without diverticul itis.4. Renal disease.5. Trace ascites. Signed: Catrachita Cabral Verified Date/Time: 09/28/201809:51:23 Reading Location: [address] Body Reading Room US CULTURE + [id number] 20:39:00 Test Item Value Reference Range Interpretation Comments CULTURE (BEAKER) (test No fungus isolated in code = 1095) 28 days FUNGUS SMEAR (BEAKER) No fungi seen (test code = 1406) MISCELLANEOUS LAB [id number] 08:22:00 Test Item Value Reference Range Interpretation Comments SCAN RESULT (test code = 1572405) POCT-GLUCOSE [id number] 09:14:00 Test Item Value Reference Range Interpretation Comments POC-GLUCOSE METER 191 mg/dL 70-110 H TESTED AT [facility] 6720 (BEAKER) (test code = [place] 1538) [address] COMPREHENSIVE METABOLIC [id number] 04:45:00 Test Item Value Reference Range Interpretation Comments TOTAL PROTEIN 8.0 gm/dL 6.0-8.3 (BEAKER) (test code = 770) ALBUMIN (BEAKER) 3.5 g/dL 3.5-5.0 (test code = 1145) ALKALINE PHOSPHATASE 72 U/L 40-150 (BEAKER) (test code = 346) BILIRUBIN TOTAL 0.3 mg/dL 0.2-1.2 (BEAKER) (test code = 377) SODIUM (BEAKER) (test 141 meq/L 136-145 code = 381) POTASSIUM (BEAKER) 3.5 meq/L 3.5-5.1 (test code = 379) CHLORIDE (BEAKER) 99 meq/L 98-107 (test code = 382) CO2 (BEAKER) (test 23 meq/L 22-29 code = 355) BLOOD UREA NITROGEN 41 mg/dL 7-21 H (BEAKER) (test code = 354) CREATININE (BEAKER) 16.04 mg/dL 0.57-1.25 H (test code = 358) GLUCOSE RANDOM 185 mg/dL 70-105 H (BEAKER) (test code = 652) CALCIUM (BEAKER) 11.4 mg/dL 8.4-10.2 H (test code = 697) AST (SGOT) (BEAKER) 17 U/L 5-34 (test code = 353) ALT (SGPT) (BEAKER) 15 U/L 6-55 (test code = 347) EGFR (BEAKER) (test 2 mL/min/1.73 ESTIMAT ED GFR IS code = 1092) sq m NOT ACCURATE CREATININE CLEARANCE IN PREDICTING GLOMERULAR FILTRATION RATE . ESTIMATED GFR I S NOT APPLICABLE FOR DIALYSIS PATIEN TS. [id number] 04:35:00 Test Item Value Reference Range Interpretation Comments PHOSPHORUS (BEAKER) (test code = 7.3 mg/dL 2.3-4.7 H 604) CBC W/PLT COUNT & AUTO [id number] 04:06:00 Test Item Value Reference Range Interpretation Comments WHITE BLOOD CELL COUNT (BEAKER) 7.4 K/ L 3.5-10.5 (test code = 775) RED BLOOD CELL COUNT (BEAKER) 3.43 M/ L 3.93-5.22 L (test code = 761) HEMOGLOBIN (BEAKER) (test code = 10.0 GM/DL 11.2-15.7 L 410) HEMATOCRIT (BEAKER) (test code = 31.9 % 34.1-44.9 L 411) MEAN CORPUSCULAR VOLUME (BEAKER) 93.0 fL 79.4-94.8 (test code = 753) MEAN CORPUSCULAR HEMOGLOBIN 29.2 pg 25.6-32.2 (BEAKER) (test code = 751) MEAN CORPUSCULAR HEMOGLOBIN CONC 31.3 GM/DL 32.2-35.5 L (BEAKER) (test code = 752) RED CELL DISTRIBUTION WIDTH 14.5 % 11.7-14.4 H (BEAKER) (test code = 412) PLATELET COUNT (BEAKER) (test 255 K/CU MM 150-450 code = 756) MEAN PLATELET VOLUME (BEAKER) 9.6 fL 9.4-12.3 (test code = 754) NUCLEATED RED BLOOD CELLS 0 /100 WBC 0-0 (BEAKER) (test code = 413) NEUTROPHILS RELATIVE PERCENT 55 % (BEAKER) (test code = 429) LYMPHOCYTES RELATIVE PERCENT 29 % (BEAKER) (test code = 430) MONOCYTES RELATIVE PERCENT 9 % (BEAKER) (test code = 431) EOSINOPHILS RELATIVE PERCENT 6 % (BEAKER) (test code = 432) BASOPHILS RELATIVE PERCENT 1 % (BEAKER) (test code = 437) NEUTROPHILS ABSOLUTE COUNT 4.04 K/ L 1.56-6.13 (BEAKER) (test code = 670) LYMPHOCYTES ABSOLUTE COUNT 2.12 K/ L 1.18-3.74 (BEAKER) (test code = 414) MONOCYTES ABSOLUTE COUNT (BEAKER) 0.65 K/ L 0.24-0.36 H (test code = 415) EOSINOPHILS ABSOLUTE COUNT 0.41 K/ L 0.04-0.36 H (BEAKER) (test code = 416) BASOPHILS ABSOLUTE COUNT (BEAKER) 0.04 K/ L 0.01-0.08 (test code = 417) IMMATURE GRANULOCYTES-RELATIVE 2 % 0-1 H PERCENT ([facility]) (test code = 2801) POCT-GLUCOSE [id number] 21:10:00 Test Item Value Reference Range Interpretation Comments POC-GLUCOSE METER 165 mg/dL 70-110 H TESTED AT [place] [address] ([facility]) ([facility] [address] POCT-GLUCOSE [id number] 17:48:00 Test Item Value Reference Range Interpretation Comments POC-GLUCOSE METER 141 mg/dL 70-110 H TESTED AT [place] [address] ([facility]) (test code = [facility] 1538) [address] POCT-GLUCOSE [id number] 12:34:00 Test Item Value Reference Range Interpretation Comments POC-GLUCOSE METER 219 mg/dL 70-110 H TESTED AT [place] [address] ([facility]) (test code = [facility] 1538) [address] POCT-GLUCOSE [id number] 09:39:00 Test Item Value Reference Range Interpretation Comments POC-GLUCOSE METER 202 mg/dL 70-110 H TESTED AT [place] [address] ([facility]) (test code = [facility] 1538) [address] COMPREHENSIVE METABOLIC [id number] 07:29:00 Test Item Value Reference Range Interpretation Comments TOTAL PROTEIN 7.8 gm/dL 6.0-8.3 (AKER) (test code = 770) ALBUMIN (AKER) 3.4 g/dL 3.5-5.0 L (test code = 1145) ALKALINE PHOSPHATASE 74 U/L 40-150 (AKER) (test code = 346) BILIRUBIN TOTAL 0.4 mg/dL 0.2-1.2 (BEAKER) (test code = 377) SODIUM (BEAKER) (test 141 meq/L 136-145 code = 381) POTASSIUM (BEAKER) 3.5 meq/L 3.5-5.1 (test code = 379) CHLORIDE (BEAKER) 100 meq/L 98-107 (test code = 382) CO2 (BEAKER) (test 21 meq/L 22-29 L code = 355) BLOOD UREA NITROGEN 48 mg/dL 7-21 H (BEAKER) (test code = 354) CREATININE (BEAKER) 16.52 mg/dL 0.57-1.25 H (test code = 358) GLUCOSE RANDOM 153 mg/dL 70-105 H (BEAKER) (test code = 652) CALCIUM (BEAKER) 10.6 mg/dL 8.4-10.2 H (test code = 697) AST (SGOT) (BEAKER) 18 U/L 5-34 (test code = 353) ALT (SGPT) (BEAKER) 14 U/L 6-55 (test code = 347) EGFR (BEAKER) (test 2 mL/min/1.73 ESTIMAT ED GFR IS code = 1092) sq m NOT ACCURATE CREATININE CLEARANCE IN PREDICTING GLOMERULAR FILTRATION RATE . ESTIMATED GFR I S NOT APPLICABLE FOR DIALYSIS PATIEN TS. CBC W/PLT COUNT & AUTO [id number] 06:36:00 Test Item Value Reference Range Interpretation Comments WHITE BLOOD CELL COUNT (BEAKER) 7.5 K/ L 3.5-10.5 (test code = 775) RED BLOOD CELL COUNT (BEAKER) 3.27 M/ L 3.93-5.22 L (test code = 761) HEMOGLOBIN (BEAKER) (test code = 9.5 GM/DL 11.2-15.7 L 410) HEMATOCRIT (BEAKER) (test code = 30.2 % 34.1-44.9 L 411) MEAN CORPUSCULAR VOLUME (BEAKER) 92.4 fL 79.4-94.8 (test code = 753) MEAN CORPUSCULAR HEMOGLOBIN 29.1 pg 25.6-32.2 (BEAKER) (test code = 751) MEAN CORPUSCULAR HEMOGLOBIN CONC 31.5 GM/DL 32.2-35.5 L (BEAKER) (test code = 752) RED CELL DISTRIBUTION WIDTH 14.5 % 11.7-14.4 H (BEAKER) (test code = 412) PLATELET COUNT (BEAKER) (test 212 K/CU MM 150-450 code = 756) MEAN PLATELET VOLUME (BEAKER) 9.4 fL 9.4-12.3 (test code = 754) NUCLEATED RED BLOOD CELLS 0 /100 WBC 0-0 (BEAKER) (test code = 413) NEUTROPHILS RELATIVE PERCENT 59 % (BEAKER) (test code = 429) LYMPHOCYTES RELATIVE PERCENT 25 % (BEAKER) (test code = 430) MONOCYTES RELATIVE PERCENT 9 % (BEAKER) (test code = 431) EOSINOPHILS RELATIVE PERCENT 6 % (BEAKER) (test code = 432) BASOPHILS RELATIVE PERCENT 0 % (BEAKER) (test code = 437) NEUTROPHILS ABSOLUTE COUNT 4.42 K/ L 1.56-6.13 (BEAKER) (test code = 670) LYMPHOCYTES ABSOLUTE COUNT 1.86 K/ L 1.18-3.74 (BEAKER) (test code = 414) MONOCYTES ABSOLUTE COUNT (BEAKER) 0.64 K/ L 0.24-0.36 H (test code = 415) EOSINOPHILS ABSOLUTE COUNT 0.42 K/ L 0.04-0.36 H (BEAKER) (test code = 416) BASOPHILS ABSOLUTE COUNT (BEAKER) 0.03 K/ L 0.01-0.08 (test code = 417) IMMATURE GRANULOCYTES-RELATIVE 1 % 0-1 PERCENT (BEAKER) (test code = 2801) POCT-GLUCOSE [id number] 00:47:00 Test Item Value Reference Range Interpretation Comments POC-GLUCOSE METER 249 mg/dL 70-110 H TESTED AT [place] [address] ([facility]) (test code = G[facility] 1538) [address] POCT-GLUCOSE [id number] 17:56:00 Test Item Value Reference Range Interpretation Comments POC-GLUCOSE METER 153 mg/dL 70-110 H TESTED AT [place] [address] ([facility]) (test code = GIL[place] 1538) [address] POCT-GLUCOSE [id number] 12:26:00 Test Item Value Reference Range Interpretation Comments POC-GLUCOSE METER 135 mg/dL 70-110 H TESTED AT [place] [address] ([facility]) (test code = GILDA [facility] 1538) [address] ANTI-NUCLEAR ANTIBODY (CECI)2018-08-04 11:44:00 Test Item Value Reference Range Interpretation Comments ANTI-NUCLEAR ANTIBODY (CECI) (BEAKER) Negative Negative (test code = 418) Test performed by IFA method.CECI TITER AND [id number] 11:44:00 Test Item Value Reference Range Interpretation Comments CECI TITER (BEAKER) :160 (test code = 1541) CECI PATTERN (BEAKER) Anti-mitotic spindle (test code = 1781) antibody BLOOD [id number] 08:00:00 Test Item Value Reference Range Interpretation Comments CULTURE (BEAKER) (test No growth in 5 days code = 1095) BLOOD [id number] 08:00:00 Test Item Value Reference Range Interpretation Comments CULTURE (BEAKER) (test No growth in 5 days code = 1095) POCT-GLUCOSE [id number] 06:06:00 Test Item Value Reference Range Interpretation Comments POC-GLUCOSE METER 189 mg/dL 70-110 H TESTED AT [facility] 6720 (BEAKER) (test code = [place] 1538) [address] COMPREHENSIVE METABOLIC [id number] 05:36:00 Test Item Value Reference Range Interpretation Comments TOTAL PROTEIN 7.3 gm/dL 6.0-8.3 (BEAKER) (test code = 770) ALBUMIN (BEAKER) 3.2 g/dL 3.5-5.0 L (test code = 1145) ALKALINE PHOSPHATASE 70 U/L 40-150 (BEAKER) (test code = 346) BILIRUBIN TOTAL 0.4 mg/dL 0.2-1.2 (BEAKER) (test code = 377) SODIUM (BEAKER) (test 139 meq/L 136-145 code = 381) POTASSIUM (BEAKER) 3.6 meq/L 3.5-5.1 (test code = 379) CHLORIDE (BEAKER) 100 meq/L 98-107 (test code = 382) CO2 (BEAKER) (test 21 meq/L 22-29 L code = 355) BLOOD UREA NITROGEN 54 mg/dL 7-21 H (BEAKER) (test code = 354) CREATININE (BEAKER) 16.48 mg/dL 0.57-1.25 H (test code = 358) GLUCOSE RANDOM 194 mg/dL 70-105 H (BEAKER) (test code = 652) CALCIUM (BEAKER) 9.6 mg/dL 8.4-10.2 (test code = 697) AST (SGOT) (BEAKER) 18 U/L 5-34 (test code = 353) ALT (SGPT) (BEAKER) 9 U/L 6-55 (test code = 347) EGFR (BEAKER) (test 2 mL/min/1.73 ESTIMAT ED GFR IS code = 1092) sq m NOT ACCURATE CREATININE CLEARANCE IN PREDICTING GLOMERULAR FILTRATION RATE . ESTIMATED GFR I S NOT APPLICABLE FOR DIALYSIS PATIEN TS. BLOOD GAS, [id number] 05:17:00 Test Item Value Reference Range Interpretation Comments PH ARTERIAL (BEAKER) (test code = 7.44 7.35-7.45 383) PCO2 ARTERIAL (BEAKER) (test code 37 mmHg 35-45 = 384) PO2 ARTERIAL (BEAKER) (test code = 156 mmHg 80-90 H 385) O2 SATURATION ARTERIAL (BEAKER) 99.1 % 96.0-97.0 H (test code = 386) HCO3 ARTERIAL (BEAKER) (test code 24 mmol/L 21-29 = 388) BASE EXCESS ARTERIAL (BEAKER) 0.2 mmol/L -2.0-3.0 (test code = 387) PATIENT TEMPERATURE (BEAKER) (test 37.0 C code = 1818) FIO2 (BEAKER) (test code = 1819) 21.0 % POCT-GLUCOSE [id number] 01:07:00 Test Item Value Reference Range Interpretation Comments POC-GLUCOSE METER 175 mg/dL 70-110 H TESTED AT [facility] 6720 ([facility]) (test code = [place] 1538) [address] POCT-GLUCOSE [id number] 16:56:00 Test Item Value Reference Range Interpretation Comments POC-GLUCOSE METER 157 mg/dL 70-110 H TESTED AT [place] [id number] ([facility]) (test code = GILDA [place] 1538) [address] EEG MONITORING WITH VIDEO RECORDING EACH 24 [id number] 16:36:00 Neurophysiology Electroencephalogram Report DATE OF REPORT: DATE \\@ "M/d/yy" 08/03/18 Date(s) of Study: 08/03/2018 ACC: [id number] EE Start time: 1133 hrs Stop time: 0834 hrs ICD-10: R41.82 Altered Mental Status CPT Code: 64653 EEG: Video monitoring/interpretation (24 hours) HISTORY (per diesel technician note): 48 yo female with h/o ESRD s/p kidney transplant in 2014 with subsequent failure onperitoneal dialysis (missed one session), DM, HTN who presents with altered mental status and confusion for 2 days. MEDICATIONS THAT COULD AFFECT EEG (in past 24 hours): lorazepam, levetiracetam TECHNICAL SUMMARY: This is a digital video EEG recorded with 32 input channels reviewed with bipolar and referential montages using the modified combinatorial system nomenclature. Descriptors used for the background, any periodic patterns, and any sporadic discharges per ACNS 2012 Standardized ICU EEG Nomenclature. DESCRIPTION OF RECORD: For the majority of this recording, this EEG demonstrated a pattern of mixed frequency background slowing, disorganization and spindle frequencies anteriorly. There were occasional monomorphic rhythmic 1-1.5 Hz patterns seen. During maximal alertness, no posterior dominant rhythm was seen. The background comprised of 1-4 Hz and 5-7 Hz activities with no anterior-posterior gradient. EVENTS: None HYPERVENTILATION: Hyperventilation was not performed. PHOTIC STIMULATION: Photic stimulation was not done. ELECTROCARDIOGRAM EVENTS: Regular rate of 54 beatsper minute IMPRESSION: Abnormal cEEG due to continuous moderate slowing. There are no electrographic seizures or epileptiform discharges. Azul Benton MD Clinical Neurophysiology-Epilepsy Fellow [facility] Neurophysiology Service Lc Crane M.D., FACRASHID, FAAN, MAURO Professor of Neurology, [facility] [employer] Director, [facility] Epilepsy Center Head, [facility] Neurophysiology Lab POCT-GLUCOSE [id number] 11:57:00 Test Item Value Reference Range Interpretation Comments POC-GLUCOSE METER 86 mg/dL 70-110 TESTED AT [place] [address] ([facility]) (test code = GILDA Gates [facility] [address]) POCT-GLUCOSE [id number] 06:26:00 Test Item Value Reference Range Interpretation Comments POC-GLUCOSE METER 159 mg/dL 70-110 H TESTED AT [facility] 67[address] ([facility]) (test code = GILDA Gates [facility] 1538) [id number] COMPREHENSIVE METABOLIC [id number] 05:41:00 Test Item Value Reference Range Interpretation Comments TOTAL PROTEIN 7.0 gm/dL 6.0-8.3 (BEAKER) (test code = 770) ALBUMIN (BEAKER) 3.1 g/dL 3.5-5.0 L (test code = 1145) ALKALINE PHOSPHATASE 56 U/L 40-150 (BEAKER) (test code = 346) BILIRUBIN TOTAL 0.4 mg/dL 0.2-1.2 (BEAKER) (test code = 377) SODIUM (BEAKER) (test 139 meq/L 136-145 code = 381) POTASSIUM (BEAKER) 4.4 meq/L 3.5-5.1 (test code = 379) CHLORIDE (BEAKER) 101 meq/L 98-107 (test code = 382) CO2 (BEAKER) (test 19 meq/L 22-29 L code = 355) BLOOD UREA NITROGEN 60 mg/dL 7-21 H (BEAKER) (test code = 354) CREATININE (BEAKER) 17.06 mg/dL 0.57-1.25 H (test code = 358) GLUCOSE RANDOM 145 mg/dL 70-105 H (BEAKER) (test code = 652) CALCIUM (BEAKER) 8.7 mg/dL 8.4-10.2 (test code = 697) AST (SGOT) (BEAKER) 13 U/L 5-34 (test code = 353) ALT (SGPT) (BEAKER) 8 U/L 6-55 (test code = 347) EGFR (BEAKER) (test 2 mL/min/1.73 ESTIMAT ED GFR IS code = 1092) sq m NOT ACCURATE CREATININE CLEARANCE IN PREDICTING GLOMERULAR FILTRATION RATE . ESTIMATED GFR I S NOT APPLICABLE FOR DIALYSIS PATIEN TS. RAD, CHEST, 1 VIEW, NON [id number] 05:27:00Dialysis 05/23Reason for exam:- >intubated patientShould this be performed at the bedside?->YesFINAL REPORT Chest one view. Clinical history: intubated patient Comparison:Chest radiograph 08/02/2018, 3:18 PM Technique: A single frontal view of the chest was obtained. Findings:Endotracheal and feeding tubes are in satisfactory positions.The cardiomediastinal contours arestable. There is a small left pleural effusion. There is a left lower lobe opacity which may represent pneumonia and/or atelectasis. There is no pneumothorax. Signed: Aleks Jamison MDReport Verified Date/Time: 08/03/2018 05:27:43 Reading Location: [facility] B1 C013Y CT Body Reading Room CBC W/PLT COUNT & AUTO DIFFERENTIAL 2018-08-03 05:09:00 Test Item Value Reference Range Interpretation Comments WHITE BLOOD CELL COUNT (BEAKER) 6.0 K/ L 3.5-10.5 (test code = 775) RED BLOOD CELL COUNT (BEAKER) 2.82 M/ L 3.93-5.22 L (test code = 761) HEMOGLOBIN (BEAKER) (test code = 8.0 GM/DL 11.2-15.7 L 410) HEMATOCRIT (BEAKER) (test code = 26.5 % 34.1-44.9 L 411) MEAN CORPUSCULAR VOLUME (BEAKER) 94.0 fL 79.4-94.8 (test code = 753) MEAN CORPUSCULAR HEMOGLOBIN 28.4 pg 25.6-32.2 (BEAKER) (test code = 751) MEAN CORPUSCULAR HEMOGLOBIN CONC 30.2 GM/DL 32.2-35.5 L (BEAKER) (test code = 752) RED CELL DISTRIBUTION WIDTH 14.7 % 11.7-14.4 H (BEAKER) (test code = 412) PLATELET COUNT (BEAKER) (test 140 K/CU MM 150-450 L code = 756) MEAN PLATELET VOLUME (BEAKER) 10.0 fL 9.4-12.3 (test code = 754) NUCLEATED RED BLOOD CELLS 0 /100 WBC 0-0 (BEAKER) (test code = 413) NEUTROPHILS RELATIVE PERCENT 54 % (BEAKER) (test code = 429) LYMPHOCYTES RELATIVE PERCENT 30 % (BEAKER) (test code = 430) MONOCYTES RELATIVE PERCENT 9 % (BEAKER) (test code = 431) EOSINOPHILS RELATIVE PERCENT 6 % (BEAKER) (test code = 432) BASOPHILS RELATIVE PERCENT 0 % (BEAKER) (test code = 437) NEUTROPHILS ABSOLUTE COUNT 3.26 K/ L 1.56-6.13 (BEAKER) (test code = 670) LYMPHOCYTES ABSOLUTE COUNT 1.80 K/ L 1.18-3.74 (BEAKER) (test code = 414) MONOCYTES ABSOLUTE COUNT (BEAKER) 0.53 K/ L 0.24-0.36 H (test code = 415) EOSINOPHILS ABSOLUTE COUNT 0.37 K/ L 0.04-0.36 H (BEAKER) (test code = 416) BASOPHILS ABSOLUTE COUNT (BEAKER) 0.02 K/ L 0.01-0.08 (test code = 417) IMMATURE GRANULOCYTES-RELATIVE 0 % 0-1 PERCENT (BEAKER) (test code = 2801) BLOOD GAS, [id number] 05:06:00 Test Item Value Reference Range Interpretation Comments PH ARTERIAL (BEAKER) (test code = 7.42 7.35-7.45 383) PCO2 ARTERIAL (BEAKER) (test code 40 mmHg 35-45 = 384) PO2 ARTERIAL (BEAKER) (test code = 121 mmHg 80-90 H 385) O2 SATURATION ARTERIAL (BEAKER) 98.5 % 96.0-97.0 H (test code = 386) HCO3 ARTERIAL (BEAKER) (test code 25 mmol/L 21-29 = 388) BASE EXCESS ARTERIAL (BEAKER) 0.8 mmol/L -2.0-3.0 (test code = 387) PATIENT TEMPERATURE (BEAKER) (test 37.0 C code = 1818) FIO2 (BEAKER) (test code = 1819) 35.0 % POCT-GLUCOSE [id number] 00:15:00 Test Item Value Reference Range Interpretation Comments POC-GLUCOSE METER 153 mg/dL 70-110 H TESTED AT [facility] [address] [facility] (test code = GILDA Gates [facility] 1538) [address] POCT-GLUCOSE [id number] 20:01:00 Test Item Value Reference Range Interpretation Comments POC-GLUCOSE METER 84 mg/dL 70-110 TESTED AT [facility] 67[address] ([facility]) (test code = GILDA Gates [facility] [address]) POCT-GLUCOSE [id number] 17:41:00 Test Item Value Reference Range Interpretation Comments POC-GLUCOSE METER 89 mg/dL 70-110 TESTED AT [facility] 67[address] ([facility]) (test code = GILDA Gaets [facility] [address]) RAD, ABDOMEN/KUB, 1 VIEW [id number] 16:36:00Dialysis 05/23Reason for exam:- >NG tube placement evaluationFINAL REPORT AP abdomen HISTORY: Nasogastric tube COMPARISON: 08/16/2016 IMPRESSION:Lower abdomen excluded from view. Nasogastric tube in satisfactory position. Signed: Osbaldo Ruelas Verified Date/Time: 08/02/2018 16:36:16 Reading Location: [address] Transitional Reading Room RAD, CHEST, 1 VIEW, NON [id number] 16:36:00 Dialysis 05/23Reason for exam:->ET tube placement assessmentShould this be performed at the bedside?->YesFINAL REPORT AP chest HISTORY: Endotracheal tube. COMPARISON: 08/02/2017. IMPRESSION: Endotracheal tube present. Tip projects 2 cm above the level of the edison. Cardiomegaly. Grossly clear lungs. Signed: Osbaldo Ruelas Verified Date/Time: 08/02/2018 16:36:46 Reading Location: [address] Transitional Reading Room C. DIFFICILE GDH [id number] 15:59:00 Test Item Value Reference Range Interpretation Comments CDT TOXIN (test code Negative Negative = [id number]) CDT GDH ANTIGEN (test Negative Negative No ind ication of code = [id number]) Clostridi um difficile infection and n o colonization. Discontinue ent lorie isolation and t herapy. Testing performed by [employer] Rapid Cassette Assay. For GDH, published sensitivity of the assay is 98.7% compared to cytotoxicity testing. For Toxin AB, published sensitivity is 87.8% and specificity 99.4% compared to cytotoxicity testing.Verification of kit performance was done by the [facility] Microbiology Lab prior to clinical use.EEG MONITORING WITH VIDEO RECORDING EACH 24 HOURS 2018-08-02 15:34:00[facility] EEG REPORT DATE OF TEST: 08/01/2018;08/02/2018 DATE OF REPORT: 08/02/2018 ACC: [id number] Start time: 08/01/18 at 15:33 Stop time: 08/02/18 at 11:33 ICD-10: 61406 CPT Code: R41.82 HISTORY: 48 yo female with h/o ESRD s/p kidney transplant in 2013 with subsequent failure on peritoneal dialysis (missed one session), DM, HTN who presents with altered mental status and confusion for 2 days. MEDICATIONS: labetolol, insulin, lorazepam, levetiracetam TECHNICAL SUMMARY: This sarai digital video EEG recorded using the standard international 10-20 system for placement of 22 electrodes, including an EKG lead. DESCRIPTION OF RECORD: For the entirety of this recording, this EEGdemonstrates a pattern that resembles N2 sleep, with mixed frequency background slowing, disorganization and spindle frequencies anteriorly. There are occasional 1-2s long suppressive bursts in this recording. Evidence of reactivity is present: during the AM recording, this background pattern briefly evolves into a more monomorphic rhythmic delta pattern, nevertheless without any evidence of a normal wakefulness. EVENTS: None HYPERVENTILATION: Hyperventilation was not performed. PHOTIC STIMULATION: Photic stimulation was not done. ELECTROCARDIOGRAM EVENTS: Regular rate and rhythm IMPRESSION: This EEG captures stage II sleep in its entirety, suggesting the presence of artificial sedation/anesthesia. There are no electrographic seizures or epileptiform discharges. Laci Park MD Clinical Neurophysiology fellow Wagner Wolf MD PhD Attending Neurophysiologist/Epileptologist POCT-GLUCOSE METER 2018-08-02 12:58:00 Test Item Value Reference Range Interpretation Comments POC-GLUCOSE METER 88 mg/dL 70-110 TESTED AT [facility] 6720 (BEAKER) (test code = GILDA Yajaira [facility] [address]) BODY FLUID CULTURE + GRAM [id number] 11:52:00 Test Item Value Reference Range Interpretation Comments CULTURE (BEAKER) (test code No growth = 1095) GRAM STAIN RESULT (BEAKER) <1+ WBCs (test code = 1123) GRAM STAIN RESULT (BEAKER) No organisms seen (test code = 54158) CSF CULTURE + GRAM [id number] 11:52:00 Test Item Value Reference Range Interpretation Comments CULTURE (BEAKER) (test code No growth = 1095) GRAM STAIN RESULT (BEAKER) <1+ WBCs (test code = 1123) GRAM STAIN RESULT (BEAKER) No organisms seen (test code = 59479) POCT-GLUCOSE [id number] 06:22:00 Test Item Value Reference Range Interpretation Comments POC-GLUCOSE METER 99 mg/dL 70-110 TESTED AT [facility] 6720 (BEAKER) (test code = [place] [address]) RAD, CHEST, 1 VIEW, NON [id number] 05:38:00Dialysis 05/23Reason for exam:- >intubated patientShould this be performed at the bedside?->YesFINAL REPORT Chest one view. Clinical history: intubated patient Comparison:Chest radiograph 08/01/2018. Technique: A single frontal view of the chest was obtained. Findings:Endotracheal and feeding tubes are in satisfactory positions. There is a small left pleural effusion. There is a retrocardiac opacity which represent atelectasis and/or pneumonia. There is no pneumothorax. There is central pulmonary vascular congestion. There is stable enlargement of the cardiac silhouette. Signed: Aleks Jamison MDReport Verified Date/Time: 08/02/2018 05:38:18 Reading Location: [place] [address]Y CT Body Reading Room [id number] 05:12:00 Test Item Value Reference Range Interpretation Comments FERRITIN (BEAKER) (test code = 361) 931 ng/mL 5-275 H IRON, TIBC, % SAT. (WITHOUT FERRITIN)2018-08-02 04:52:00 Test Item Value Reference Range Interpretation Comments IRON (BEAKER) (test code = 547) 37.0 ug/dL 40.0-160.0 L TOTAL IRON BINDING CAPACITY 180 ug/dL 250-450 L (BEAKER) (test code = 769) IRON % SATURATION (2) (BEAKER) 21 % 20-55 (test code = 2590) BLOOD GAS, [id number] 04:37:00 Test Item Value Reference Range Interpretation Comments PH ARTERIAL (BEAKER) (test code = 7.36 7.35-7.45 383) PCO2 ARTERIAL (BEAKER) (test code 42 mmHg 35-45 = 384) PO2 ARTERIAL (BEAKER) (test code 147 mmHg 80-90 H = 385) O2 SATURATION ARTERIAL (BEAKER) 98.8 % 96.0-97.0 H (test code = 386) HCO3 ARTERIAL (BEAKER) (test code 23 mmol/L 21-29 = 388) BASE EXCESS ARTERIAL (BEAKER) -2.2 mmol/L -2.0-3.0 L (test code = 387) PATIENT TEMPERATURE (BEAKER) 37.5 C (test code = 1818) FIO2 (BEAKER) (test code = 1819) 50.0 % COMPREHENSIVE METABOLIC [id number] 04:24:00 Test Item Value Reference Range Interpretation Comments TOTAL PROTEIN 7.5 gm/dL 6.0-8.3 Specimen sligh tly (BEAKER) (test code = hemoly zed 770) ALBUMIN (BEAKER) 3.3 g/dL 3.5-5.0 L Specimen sl ightly (test code = 1145) hemolyzed ALKALINE PHOSPHATASE 53 U/L 40-150 (BEAKER) (test code = 346) BILIRUBIN TOTAL 0.6 mg/dL 0.2-1.2 Specimen sli ghtly (BEAKER) (test code = hemoly zed 377) SODIUM (BEAKER) (test 139 meq/L 136-145 code = 381) POTASSIUM (BEAKER) 4.7 meq/L 3.5-5.1 Specimen slightly (test code = 379) hemolyzed CHLORIDE (BEAKER) 102 meq/L 98-107 (test code = 382) CO2 (BEAKER) (test 19 meq/L 22-29 L code = 355) BLOOD UREA NITROGEN 62 mg/dL 7-21 H (BEAKER) (test code = 354) CREATININE (BEAKER) 16.85 mg/dL 0.57-1.25 H Specimen slightly (test code = 358) hemolyzed GLUCOSE RANDOM 87 mg/dL 70-105 (BEAKER) (test code = 652) CALCIUM (BEAKER) 8.4 mg/dL 8.4-10.2 (test code = 697) AST (SGOT) (BEAKER) 18 U/L 5-34 Specimen slightly (test code = 353) hemolyzed ALT (SGPT) (BEAKER) 7 U/L 6-55 Specimen slightly (test code = 347) hemolyzed EGFR (BEAKER) (test 2 mL/min/1.73 ESTIMAT ED GFR IS code = 1092) sq m NOT ACCURATE CREATININE CLEARANCE IN PREDICTING GLOMERULAR FILTRATION RATE . ESTIMATED GFR I S NOT APPLICABLE FOR DIALYSIS PATIEN TS. [id number] 04:20:00 Test Item Value Reference Range Interpretation Comments PHOSPHORUS (BEAKER) 8.3 mg/dL 2.3-4.7 H Specimen slightly (test code = 604) hemolyzed CBC W/PLT COUNT & AUTO [id number] 04:02:00 Test Item Value Reference Range Interpretation Comments WHITE BLOOD CELL COUNT (BEAKER) 6.8 K/ L 3.5-10.5 (test code = 775) RED BLOOD CELL COUNT (BEAKER) 2.84 M/ L 3.93-5.22 L (test code = 761) HEMOGLOBIN (BEAKER) (test code = 8.4 GM/DL 11.2-15.7 L 410) HEMATOCRIT (BEAKER) (test code = 27.7 % 34.1-44.9 L 411) MEAN CORPUSCULAR VOLUME (BEAKER) 97.5 fL 79.4-94.8 H (test code = 753) MEAN CORPUSCULAR HEMOGLOBIN 29.6 pg 25.6-32.2 (BEAKER) (test code = 751) MEAN CORPUSCULAR HEMOGLOBIN CONC 30.3 GM/DL 32.2-35.5 L (BEAKER) (test code = 752) RED CELL DISTRIBUTION WIDTH 15.0 % 11.7-14.4 H (BEAKER) (test code = 412) PLATELET COUNT (BEAKER) (test 155 K/CU MM 150-450 code = 756) MEAN PLATELET VOLUME (BEAKER) 9.7 fL 9.4-12.3 (test code = 754) NUCLEATED RED BLOOD CELLS 0 /100 WBC 0-0 (BEAKER) (test code = 413) NEUTROPHILS RELATIVE PERCENT 58 % (BEAKER) (test code = 429) LYMPHOCYTES RELATIVE PERCENT 27 % (BEAKER) (test code = 430) MONOCYTES RELATIVE PERCENT 9 % (BEAKER) (test code = 431) EOSINOPHILS RELATIVE PERCENT 5 % (BEAKER) (test code = 432) BASOPHILS RELATIVE PERCENT 0 % (BEAKER) (test code = 437) NEUTROPHILS ABSOLUTE COUNT 3.98 K/ L 1.56-6.13 (BEAKER) (test code = 670) LYMPHOCYTES ABSOLUTE COUNT 1.86 K/ L 1.18-3.74 (BEAKER) (test code = 414) MONOCYTES ABSOLUTE COUNT (BEAKER) 0.58 K/ L 0.24-0.36 H (test code = 415) EOSINOPHILS ABSOLUTE COUNT 0.36 K/ L 0.04-0.36 (BEAKER) (test code = 416) BASOPHILS ABSOLUTE COUNT (BEAKER) 0.02 K/ L 0.01-0.08 (test code = 417) IMMATURE GRANULOCYTES-RELATIVE 0 % 0-1 PERCENT (BEAKER) (test code = 2801) POCT-GLUCOSE [id number] 00:22:00 Test Item Value Reference Range Interpretation Comments POC-GLUCOSE METER 79 mg/dL 70-110 TESTED AT [place] [address] ([facility] (test code = [place] [address]38) BASIC METABOLIC [id number] 19:07:00 Test Item Value Reference Range Interpretation Comments SODIUM (BEAKER) 137 meq/L 136-145 (test code = 381) POTASSIUM (BEAKER) 6.0 meq/L 3.5-5.1 HH Specimen slightly (test code = 379) hemolyzed CHLORIDE (BEAKER) 101 meq/L 98-107 (test code = 382) CO2 (BEAKER) (test 20 meq/L 22-29 L code = 355) BLOOD UREA NITROGEN 67 mg/dL 7-21 H (BEAKER) (test code = 354) CREATININE (BEAKER) 18.20 mg/dL 0.57-1.25 H Specimen slightly (test code = 358) hemolyzed GLUCOSE RANDOM 73 mg/dL 70-105 (BEAKER) (test code = 652) CALCIUM (BEAKER) 8.1 mg/dL 8.4-10.2 L (test code = 697) EGFR (BEAKER) (test 2 mL/min/1.73 ESTIMAT ED GFR IS code = 1092) sq m NOT ACCURATE CREATININE CLEARANCE IN PREDICTING GLOMERULAR FILTRATION RATE . ESTIMATED GFR I S NOT APPLICABLE FOR DIALYSIS PATIEN TS. POCT-GLUCOSE [id number] 18:40:00 Test Item Value Reference Range Interpretation Comments POC-GLUCOSE METER 97 mg/dL 70-110 TESTED AT [facility] 6720 (BEAKER) (test code = [place] [address] 1538) POCT-GLUCOSE [id number] 15:14:00 Test Item Value Reference Range Interpretation Comments POC-GLUCOSE METER 151 mg/dL 70-110 H TESTED AT [facility] 6720 (ESTRELLA) (test code = [place] 1538) [id number] EEG MONITORING WITH VIDEO RECORDING EACH 24 [id number] 14:43:00Dialysis 05/23For STAT EEG- after 5 PM weekdays, weekends and holidays, page the on-call EEG TechReason for exam:->Subclinical szCH[facility] DATE OF TEST: 07/31/2018;08/01/2018 DATE OF REPORT: 08/01/2018 [id number] Start time: 07/31/18 at 14:55 Stop time: 08/01/18 at 03:53 ICD-10: 63480 CPT Code: R41.82 HISTORY: 48 yo female with h/o ESRD s/p kidney transplant in 2013 with subsequent failureon peritoneal dialysis (missed one session), DM, HTN who presents with altered mental status and confusion for 2 days. MEDICATIONS: labetolol, insulin, lorazepam TECHNICAL SUMMARY: This is a digital video EEG recorded using the standard international 10-20 system for placement of 22 electrodes, including an EKG lead. DESCRIPTION OF RECORD: During the maximally alert state, there no anterior-posterior gradient nor a posterior dominant rhythm. During the first 30 minutes of the recording, there is presence of generalized periodic discharges with a triphasic morphology which occur at a frequency of 2-3 Hz. No clinical correlate was noted during this activity. After administration of lorazepam (intubation) after 15:00 hrs, the background consists of 1.5-3 Hz activity with intermixed 4-6 Hzactivity. There is also presence of intermittent superimposed generalized 14-20 Hz activity throughout. EVENTS: None HYPERVENTILATION: Hyperventilation was not performed. PHOTIC STIMULATION: Photic stimulation was not done. ELECTROCARDIOGRAM EVENTS: Regular rate and rhythm IMPRESSION: Abnormal EEG due to: 1. Generalized periodic discharges with triphasic morphology during initial part of the recording. 2. Moderate generalized slowing of background rhythm. CLINICAL CORRELATION: The generalized periodic discharges are a nonspecific marker of diffuse cortical irritability. Moderate slowing of background rhythm is consistent with moderate degree of encephalopathy. After discontinuation of cefepime, intubation and administration of lorazepam,levetiracetam the background has improved from baseline study. Laci Park MD Clinical Neurophysiology fellow Wagner Wolf MD PhD Attending Neurophysiologist/Epileptologist BLOOD GAS, [id number] 12:27:00 Test Item Value Reference Range Interpretation Comments PH ARTERIAL (BEAKER) (test code = 7.39 7.35-7.45 383) PCO2 ARTERIAL (BEAKER) (test code 41 mmHg 35-45 = 384) PO2 ARTERIAL (BEAKER) (test code 97 mmHg 80-90 H = 385) O2 SATURATION ARTERIAL (BEAKER) 97.4 % 96.0-97.0 H (test code = 386) HCO3 ARTERIAL (BEAKER) (test code 25 mmol/L 21-29 = 388) BASE EXCESS ARTERIAL (BEAKER) -0.4 mmol/L -2.0-3.0 (test code = 387) PATIENT TEMPERATURE (BEAKER) 36.6 C (test code = 1818) FIO2 (BEAKER) (test code = 1819) 50.0 % POCT-GLUCOSE [id number] 11:51:00 Test Item Value Reference Range Interpretation Comments POC-GLUCOSE METER 94 mg/dL 70-110 TESTED AT [facility] 6720 (BEAKER) (test code = GILDA Gates [facility] [address]38) MR, BRAIN, WITHOUT [id number] 10:58:00Dialysis 05/23Need an MRV also pleaseReason for exam:->Ischemic Stroke EvaluationFINAL REPORT MR, BRAIN, WITHOUT CONTRAST, MR, MRA, NECK, WITHOUT IV CONTRAST,MR, MRA, BRAIN, WITHOUT CONTRAST INDICATION: Confusion/delirium, altered LOC, unexplainedDecreased alertnessIschemic Stroke Evaluation TECHNIQUE: Multiplanar, multisequence MR images of the brain. 3-Dtime of flight MRA of the cranial and cervical circulation. 2-D time of flight MRA of the neck. 3D MIP angiographic post-processing was performed. Stenosis evaluation utilized NASCET criteria. COMPARISON: CT brain July 30, 2018 FINDINGS: MRI BRAIN: Brain parenchyma is normal in morphology. Midline structures are normally developed. No restricted diffusion to suggest recent ischemic insult. No abnormal susceptibility. Scattered T2/FLAIR hyperintense foci within the periventricular and subcortical white matter are nonspecific, however, statistically represent chronic microvascular ischemic changes. No hydrocephalus. Orbits are within normal limits. No obstructive paranasal sinus disease. Calvarium and skull base demonstrate marrow signal within normal limits for age without focal lesion. Additional findings: Nasogastric tube. MRA BRAIN:Internal carotid arteries: Normal flow related enhancementwithout flow-limiting stenosisMiddle cerebral arteries: Normal flow related enhancement within the bilateral MCA M1-M2 segments without flow limiting stenosis Anterior cerebral arteries: Normal flow-related enhancement within the left JESUS MANUEL A1-A2 and right A2 segments without flow limiting stenosis. Right A1 segment is hypoplastic versus absent.Basilar system: Normal flow-related enhancement within thebilateral V4 segments and the basilar artery without flow-limiting stenosis Posterior cerebral arteries: Normal flow-related enhancement within the bilateral [employer] P1-P2 segments without flow-limiting stenosis. Robust left posterior communicating artery with functional type [employer] circulation on the left. Right posterior commuting segment is hypoplastic.Additional findings: None. MRA NECK:Common carotid arteries: Unremarkable. Bifurcations: No flow-limiting stenosis. Cervical internal carotid arteries: No flow limiting stenosis.Vertebral arteries: Codominant. No origin or extracranial stenosis.IMPRESSION: No acute ischemia or parenchymal hemorrhage. No flow limiting stenosis in the major branch vessels of the cervical or cranial circulation. Signed: Lisa Wright MDReport Verified Date/Time: 08/01/2018 10:58:44 Reading Location: [address] Neuro Reading Room MR, MRA, BRAIN, WITHOUT [id number] 10:58:00Dialysis lease add MRV as wellReason for exam:->Ischemic Stroke EvaluationFINAL REPORT MR, BRAIN, WITHOUT CONTRAST, MR, MRA, NECK, WITHOUT IV CONTRAST, MR, MRA, BRAIN, WITHOUT CONTRAST INDICATION: Confusion/delirium, altered LOC, unexplainedDecreased alertnessIschemic Stroke Evaluation TECHNIQUE: Multiplanar, multisequence MR images of the brain. 3-Dtime of flight MRA of the cranial and cervical circulation. 2-D time of flight MRA of the neck. 3D MIP angiographic post-processing was performed. Stenosis evaluation utilized NASCET criteria. COMPARISON: CT brain July 30, 2018 FINDINGS: MRI BRAIN: Brain parenchyma is normal in morphology. Midline structures are normally developed. No restricted diffusion to suggest recent ischemic insult. No abnormal susceptibility. Scattered T2/FLAIR hyperintense foci within the periventricular and subcortical white matter are nonspecific, however, statistically represent chronic microvascular ischemic changes. No hydrocephalus. Orbits are within normal limits. No obstructive paranasal sinus disease. Calvarium and skull base demonstrate marrow signal within normal limits for age without focal lesion. Additional findings: Nasogastric tube. MRA BRAIN:Internal carotid arteries: Normal flow related enhancementwithout flow-limiting stenosisMiddle cerebral arteries: Normal flow related enhancement within the bilateral MCA M1-M2 segments without flow limiting stenosis Anterior cerebral arteries: Normal flow-related enhancement within the left JESUS MANUEL A1-A2 and right A2 segments without flow limiting stenosis. Right A1 segment is hypoplastic versus absent.Basilar system: Normal flow-related enhancement within thebilateral V4 segments and the basilar artery without flow-limiting stenosis Posterior cerebral arteries: Normal flow-related enhancement within the bilateral [employer] P1-P2 segments without flow-limiting stenosis. Robust left posterior communicating artery with functional type [employer] circulation on the left. Right posterior commuting segment is hypoplastic.Additional findings: None. MRA NECK:Common carotid arteries: Unremarkable. Bifurcations: No flow-limiting stenosis. Cervical internal carotid arteries: No flow limiting stenosis.Vertebral arteries: Codominant. No origin or extracranial stenosis.IMPRESSION: No acute ischemia or parenchymal hemorrhage. No flow limiting stenosis in the major branch vessels of the cervical or cranial circulation. Signed: Lisa Wright MDReport Verified Date/Time: 08/01/2018 10:58:44 Reading Location: [address] Neuro Reading Room MR, MRA, NECK, WITHOUT IV [id number] 10:58:00Dialysis lease add MRV as wellReason for exam:->Ischemic Stroke EvaluationFINAL REPORT MR, BRAIN, WITHOUT CONTRAST, MR, MRA, NECK, WITHOUT IV CONTRAST, MR, MRA, BRAIN, WITHOUT CONTRAST INDICATION: Confusion/delirium, altered LOC, unexplainedDecreased alertnessIschemic Stroke Evaluation TECHNIQUE: Multiplanar, multisequence MR images of the brain. 3-Dtime of flight MRA of the cranial and cervical circulation. 2-D time of flight MRA of the neck. 3D MIP angiographic post-processing was performed. Stenosis evaluation utilized NASCET criteria. COMPARISON: CT brain July 30, 2018 FINDINGS: MRI BRAIN: Brain parenchyma is normal in morphology. Midline structures are normally developed. No restricted diffusion to suggest recent ischemic insult. No abnormal susceptibility. Scattered T2/FLAIR hyperintense foci within the periventricular and subcortical white matter are nonspecific, however, statistically represent chronic microvascular ischemic changes. No hydrocephalus. Orbits are within normal limits. No obstructive paranasal sinus disease. Calvarium and skull base demonstrate marrow signal within normal limits for age without focal lesion. Additional findings: Nasogastric tube. MRA BRAIN:Internal carotid arteries: Normal flow related enhancementwithout flow-limiting stenosisMiddle cerebral arteries: Normal flow related enhancement within the bilateral MCA M1-M2 segments without flow limiting stenosis Anterior cerebral arteries: Normal flow-related enhancement within the left JESUS MANUEL A1-A2 and right A2 segments without flow limiting stenosis. Right A1 segment is hypoplastic versus absent.Basilar system: Normal flow-related enhancement within thebilateral V4 segments and the basilar artery without flow-limiting stenosis Posterior cerebral arteries: Normal flow-related enhancement within the bilateral [employer] P1-P2 segments without flow-limiting stenosis. Robust left posterior communicating artery with functional type [employer] circulation on the left. Right posterior commuting segment is hypoplastic.Additional findings: None. MRA NECK:Common carotid arteries: Unremarkable. Bifurcations: No flow-limiting stenosis. Cervical internal carotid arteries: No flow limiting stenosis.Vertebral arteries: Codominant. No origin or extracranial stenosis.IMPRESSION: No acute ischemia or parenchymal hemorrhage. No flow limiting stenosis in the major branch vessels of the cervical or cranial circulation. Signed: Lisa Wright MDReport Verified Date/Time: 08/01/2018 10:58:44 Reading Location: [facility] C0[facility] Neuro Reading Room COMPREHENSIVE METABOLIC [id number] 06:44:00 Test Item Value Reference Range Interpretation Comments TOTAL PROTEIN 7.3 gm/dL 6.0-8.3 Specimen sligh tly (BEAKER) (test code = hemoly zed 770) ALBUMIN (BEAKER) 3.3 g/dL 3.5-5.0 L Specimen sl ightly (test code = 1145) hemolyzed ALKALINE PHOSPHATASE 48 U/L 40-150 (BEAKER) (test code = 346) BILIRUBIN TOTAL 0.8 mg/dL 0.2-1.2 Specimen sli ghtly (BEAKER) (test code = hemoly zed 377) SODIUM (BEAKER) (test 138 meq/L 136-145 code = 381) POTASSIUM (BEAKER) 5.7 meq/L 3.5-5.1 H Specimen slightly (test code = 379) hemolyzed CHLORIDE (BEAKER) 101 meq/L 98-107 (test code = 382) CO2 (BEAKER) (test 20 meq/L 22-29 L code = 355) BLOOD UREA NITROGEN 67 mg/dL 7-21 H (BEAKER) (test code = 354) CREATININE (BEAKER) 17.48 mg/dL 0.57-1.25 H Specimen slightly (test code = 358) hemolyzed GLUCOSE RANDOM 91 mg/dL 70-105 (BEAKER) (test code = 652) CALCIUM (BEAKER) 8.6 mg/dL 8.4-10.2 (test code = 697) AST (SGOT) (BEAKER) 18 U/L 5-34 Specimen slightly (test code = 353) hemolyzed ALT (SGPT) (BEAKER) 7 U/L 6-55 Specimen slightly (test code = 347) hemolyzed EGFR (BEAKER) (test 2 mL/min/1.73 ESTIMAT ED GFR IS code = 1092) sq m NOT ACCURATE CREATININE CLEARANCE IN PREDICTING GLOMERULAR FILTRATION RATE . ESTIMATED GFR I S NOT APPLICABLE FOR DIALYSIS PATIEN TS. HIV-1 ANTIGEN WITH HIV-1/2 [id number] 06:42:00 Test Item Value Reference Range Interpretation Comments HIV-1 ANTIGEN WITH HIV 1\\T\\2 Nonreactive Nonreactive ANTIBODY (2) (BEAKER) (test code = 2586) POCT-GLUCOSE [id number] 06:15:00 Test Item Value Reference Range Interpretation Comments POC-GLUCOSE METER 105 mg/dL 70-110 [facility] (test code = G[place] 1538) [id number] LACTIC ACID, [id number] 05:24:00 Test Item Value Reference Range Interpretation Comments LACTATE BLOOD VENOUS (2) (BEAKER) 1.6 mmol/L 0.5-2.2 (test code = 8182) CBC W/PLT COUNT & AUTO [id number] 05:06:00 Test Item Value Reference Range Interpretation Comments WHITE BLOOD CELL COUNT (BEAKER) 6.7 K/ L 3.5-10.5 (test code = 775) RED BLOOD CELL COUNT (BEAKER) 3.11 M/ L 3.93-5.22 L (test code = 761) HEMOGLOBIN (BEAKER) (test code = 8.9 GM/DL 11.2-15.7 L 410) HEMATOCRIT (BEAKER) (test code = 30.1 % 34.1-44.9 L 411) MEAN CORPUSCULAR VOLUME (BEAKER) 96.8 fL 79.4-94.8 H (test code = 753) MEAN CORPUSCULAR HEMOGLOBIN 28.6 pg 25.6-32.2 (BEAKER) (test code = 751) MEAN CORPUSCULAR HEMOGLOBIN CONC 29.6 GM/DL 32.2-35.5 L (BEAKER) (test code = 752) RED CELL DISTRIBUTION WIDTH 15.0 % 11.7-14.4 H (BEAKER) (test code = 412) PLATELET COUNT (BEAKER) (test 137 K/CU MM 150-450 L code = 756) MEAN PLATELET VOLUME (BEAKER) 9.4 fL 9.4-12.3 (test code = 754) NUCLEATED RED BLOOD CELLS 0 /100 WBC 0-0 (BEAKER) (test code = 413) NEUTROPHILS RELATIVE PERCENT 68 % (BEAKER) (test code = 429) LYMPHOCYTES RELATIVE PERCENT 19 % (BEAKER) (test code = 430) MONOCYTES RELATIVE PERCENT 7 % (BEAKER) (test code = 431) EOSINOPHILS RELATIVE PERCENT 5 % (BEAKER) (test code = 432) BASOPHILS RELATIVE PERCENT 0 % (BEAKER) (test code = 437) NEUTROPHILS ABSOLUTE COUNT 4.54 K/ L 1.56-6.13 (BEAKER) (test code = 670) LYMPHOCYTES ABSOLUTE COUNT 1.29 K/ L 1.18-3.74 (BEAKER) (test code = 414) MONOCYTES ABSOLUTE COUNT (BEAKER) 0.49 K/ L 0.24-0.36 H (test code = 415) EOSINOPHILS ABSOLUTE COUNT 0.31 K/ L 0.04-0.36 (BEAKER) (test code = 416) BASOPHILS ABSOLUTE COUNT (BEAKER) 0.03 K/ L 0.01-0.08 (test code = 417) IMMATURE GRANULOCYTES-RELATIVE 1 % 0-1 PERCENT (BEAKER) (test code = 2801) RAD, CHEST, 1 VIEW, NON [id number] 03:48:00Dialysis 05/23Reason for exam:- >intubated patientShould this be performed at the bedside?->YesFINAL REPORT Chest one view. Clinical history: intubated patient Comparison:Chest radiograph 07/31/2018. Technique: A single frontal view of the chest was obtained. Findings:Endotracheal and feeding tubes are in satisfactory position.The cardiomediastinal contours are stable. There are low lung volumes. Bilateral congestive changes have nearly resolved. There is a small left pleural effusion. There is a left lower lobe opacity which may represent atelectasis and/or pneumonia. There is no pneumothorax. Signed: Aleks Jamison MDReport Verified Date/Time: 08/01/2018 03:48:28 Reading Location: [address] Body Reading Room POCT-GLUCOSE [id number] 03:21:00 Test Item Value Reference Range Interpretation Comments POC-GLUCOSE METER 98 mg/dL 70-110 TESTED AT [facility] (test code = GILDA [facility] [id number] 1538) RAD, CHEST, 1 VIEW, NON [id number] 23:12:00Dialysis 05/23Reason for exam:- >recently intubatedShould this be performed at the bedside?->YesFINAL REPORT History: Intubation. Comparison: 07/30/2018 Findings: A single view of the chest is submitted. The examination is limited by low lung volumes and rotation to the left. The tip of an endotracheal tube is above the edison at the level of the inferior clavicular heads.An enteric tube traverses examination to the upper abdomen. There is stable enlargement of the cardiac silhouette. Central pulmonary vascular congestion and bilateral interstitial and airspace opacities appear centered in the perihilar lungs and suggest pulmonary edema. More confluent opacity in the retrocardiac left lung may reflect some combination of atelectasis and edema but pneumonitis should be excluded clinically. There is no pneumothorax or acute bony abnormality. Signed: Juaquin Hook MDReport Verified Date/Time: 07/31/2018 23:12:11 Reading Location: [address] Reading Room VANCOMYCIN LEVEL, [id number] 19:07:00 Test Item Value Reference Range Interpretation Comments VANCOMYCIN RANDOM (BEAKER) (test 19.3 ug/mL code = 523) Reference Range: No NormalsPOCT-GLUCOSE [id number] 18:21:00 Test Item Value Reference Range Interpretation Comments POC-GLUCOSE METER 149 mg/dL 70-110 H TESTED AT [facility] [address] (BEAKER) (test code = G[facility] 1538) [id number] BLOOD GAS, [id number] 17:07:00 Test Item Value Reference Range Interpretation Comments PH ARTERIAL (BEAKER) (test code = 7.37 7.35-7.45 383) PCO2 ARTERIAL (BEAKER) (test code 43 mmHg 35-45 = 384) PO2 ARTERIAL (BEAKER) (test code 73 mmHg 80-90 L = 385) O2 SATURATION ARTERIAL (BEAKER) 94.3 % 96.0-97.0 L (test code = 386) HCO3 ARTERIAL (BEAKER) (test code 24 mmol/L 21-29 = 388) BASE EXCESS ARTERIAL (BEAKER) -1.4 mmol/L -2.0-3.0 (test code = 387) PATIENT TEMPERATURE (BEAKER) 36.9 C (test code = 1818) FIO2 (BEAKER) (test code = 1819) 60.0 % EEG AWAKE AND [id number] 16:14:00Dialysis 05/23Reason for exam:->[facility]'S EEG REPORT DATE OF TEST: 07/31/2018DATE OF REPORT: 07/31/2018 ACC: [id number] time: 14:25Stop time: 14:48ICD-10: [id number] Code: R41.82 HISTORY: 48 yo female with h/oESRD s/p kidney transplant in 2013 with subsequent failure on peritoneal dialysis (missed one session), DM, HTN who presents with altered mental status and confusion for 2 days. MEDICATIONS: cefepime, labetolol, insulin TECHNICAL SUMMARY: This is a digital video EEG recorded using the standard international 10-20 system for placement of 22 electrodes, including an EKG lead. DESCRIPTION OF RECORD: During the maximally alert state, there no anterior-posterior gradient nor a posterior dominant rhythm. There is presence of generalized periodic discharges with a triphasic morphology which occur at afrequency of 2.5-3 Hz for the majority of the recording. This pattern also becomes more prominent with stimulation (SI-GPDs with triphasic morphology). No clinical correlate was noted during this activi ty. During brief periods without GPDs, the background consists of 1.5-3 Hz activity with intermixed 4-6 Hz activity. Stage 2 sleep architecture was not recorded.EVENTS: None HYPERVENTILATION: Hyperventilation was not performed.PHOTIC STIMULATION: Photic stimulation was not done. ELECTROCARDIOGRAM EVENTS: Regular rate and rhythm IMPRESSION: Abnormal EEG due to: 1. Generalized periodic discharges with triphasic morphology, stimulus induced (SI-GPDs with triphasic morphology) 2. Moderate generalized slowing of background rhythm. CLINICAL CORRELATION: The generalized periodic discharges are a nonspecific marker of acute cortical irritability. Moderate slowing of background rhythm is consistent with moderate degree of encephalopathy. According to the [place] criteria, the frequency of GPDs over 2.5 Hz meets criteria for nonconvulsive status epilepticus. Of note, this pattern has been reported in patients taking cefepime, particularly those with renaldysfunction (Electrographic status epilepticus in the setting of generalized periodic discharges with a triphasic can be seen with underlying metabolic toxic etiology (renal failure) and use of cefepime (MELI Napier., LANE Melendez., Pete T. et al. Neurocrit Care (2019). [email or web address]). These findings were discussed with the neuro ICU consult team at approximately 3:30pm. This patient will be transitioned to continuous EEG monitoring for further evaluation. Laci Park [facility] – [place]ical Neurophysiology fellow Reggie Manuel MD, [facility] Neurophysiologist/Epileptologist [id number] 14:43:00 Test Item Value Reference Range Interpretation Comments RPR SCREEN (BEAKER) (test code = Nonreactive Nonreactive 420) HSV 1/2 PCR, [id number] 14:25:00 Test Item Value Reference Range Interpretation Comments HSV BY PCR (BEAKER) (test code = NEGATIVE NEGATIVE 334) Herpes Simplex Virus (HSV) not detected.These assays were performed by real-time PCR utilizing fluorogenic hydrolysis probe technology for the detection of Herpes Simplex Virus-1 and/or Herpes Simplex Virus-2 in approved specimens. A 154 base pair region of the HSV-1 and HSV-2 UL5 gene is amplified, and typing is achieved by using type specific probes. An internal control is used to confirm PCR amplification. Genetic variation and other factors can affect the accuracy of nucleic acid testing; therefore, the results should be interpreted in light of clinical data.This test was developed and its performance characteristics determined by the [facility] Pathology Department, Section of Molecular Pathology. It has not been cleared or approved by the U.S. Food and Drug Administration (FDA), as FDA approval is not required for clinical use of the test. Validation was done as required by the Clinical Laboratory Amendments of 1988.RESPIRATORY PANEL [id number] 13:38:00 Test Item Value Reference Range Interpretation Comments HUMAN METAPNEUMOVIRUS Not detected Not detected, (BEAKER) (test code = 2683) Equivocal RHINOVIRUS (BEAKER) (test Not detected Not detected, code = 2684) Equivocal INFLUENZA A (BEAKER) (test Not detected Not detected, code = 2685) Equivocal INFLUENZA A (NO SUBTYPE) Not detected, (test code = 3606) Equivocal INFLUENZA A SUBTYPE H1 Not detected, (BEAKER) (test code = 2686) Equivocal INFLUENZA A SUBTYPE H3 Not detected, (BEAKER) (test code = 2687) Equivocal INFLUENZA A SUBTYPE H1-2009 Not detected, (BEAKER) (test code = 3198) Equivocal INFLUENZA B (BEAKER) (test Not detected Not detected, code = 2688) Equivocal RESPIRATORY SYNCYTIAL VIRUS Not detected Not detected, (BEAKER) (test code = 3199) Equivocal PARAINFLUENZA VIRUS 1 Not detected Not detected, (BEAKER) (test code = 2691) Equivocal PARAINFLUENZA VIRUS 2 Not detected Not detected, (BEAKER) (test code = 2692) Equivocal PARAINFLUENZA VIRUS 3 Not detected Not detected, (BEAKER) (test code = 2693) Equivocal PARAINFLUENZA VIRUS 4 Not detected Not detected, (BEAKER) (test code = 3200) Equivocal ADENOVIRUS (BEAKER) (test Not detected Not detected, code = 2694) Equivocal CORONAVIRUS 229E (BEAKER) Not detected Not detected, (test code = 3201) Equivocal CORONAVIRUS HKU1 (BEAKER) Not detected Not detected, (test code = 3202) Equivocal CORONAVIRUS NL63 (BEAKER) Not detected Not detected, (test code = 3203) Equivocal CORONAVIRUS OC43 (BEAKER) Not detected Not detected, (test code = 3204) Equivocal BORDETELLA PERTUSSIS Not detected Not detected, (BEAKER) (test code = 3205) Equivocal CHLAMYDOPHILA PNEUMONIAE Not detected Not detected, (BEAKER) (test code = 3206) Equivocal MYCOPLASMA PNEUMONIAE Not detected Not detected, (BEAKER) (test code = 3207) Equivocal Other viruses and bacteria not targeted by this PCR panel cannot be excluded; therefore clinical correlation and follow up of serology, culture results, and other molecular studies is required. The results are not intended to be used as the sole means for clinical diagnosis or patient management decisions. This sample was tested at the [facility] Molecular Diagnostics Laboratory using the [employer] Leuch[employer] Respiratory Panel. It is FDA cleared and has been verified and approved by the [facility] Molecular Diagnostics Laboratory for clinical use on nasal swab specimens. It is not FDA-cleared for use on bronchial wash/lavage samples. However, for this sample type, validation was performed and test characteristics were determined and approved, by [facility] [employer] [facility] laboratory for clinical use under the Clinical Laboratory Improvement Amendments (CLIA) of 1988 requirements. Therefore, FDA clearance isnot required. This laboratory is CLIA-certified and [employer] (CAP)-accredited to perform high complexity testing.POCT-GLUCOSE [id number] 11:42:00 Test Item Value Reference Range Interpretation Comments POC-GLUCOSE METER 94 mg/dL 70-110 TESTED AT [facility] [address] (BEAKER) (test code = [place] [address] 1538) POCT-GLUCOSE [id number] 10:10:00 Test Item Value Reference Range Interpretation Comments POC-GLUCOSE METER 94 mg/dL 70-110 TESTED AT [facility] [address] (BEAKER) (test code = [place] [address] 1538) HEMOGLOBIN [id number] 10:10:00 Test Item Value Reference Range Interpretation Comments HEMOGLOBIN A1C (BEAKER) (test code = 5.6 % 4.3-6.1 368) BASIC METABOLIC [id number] 04:59:00 Test Item Value Reference Range Interpretation Comments SODIUM (BEAKER) 139 meq/L 136-145 (test code = 381) POTASSIUM (BEAKER) 4.8 meq/L 3.5-5.1 (test code = 379) CHLORIDE (BEAKER) 102 meq/L 98-107 (test code = 382) CO2 (BEAKER) (test 20 meq/L 22-29 L code = 355) BLOOD UREA NITROGEN 60 mg/dL 7-21 H (BEAKER) (test code = 354) CREATININE (BEAKER) 17.33 mg/dL 0.57-1.25 H (test code = 358) GLUCOSE RANDOM 128 mg/dL 70-105 H (BEAKER) (test code = 652) CALCIUM (BEAKER) 9.2 mg/dL 8.4-10.2 (test code = 697) EGFR (BEAKER) (test 2 mL/min/1.73 ESTIMAT ED GFR IS code = 1092) sq m NOT ACCURATE CREATININE CLEARANCE IN PREDICTING GLOMERULAR FILTRATION RATE . ESTIMATED GFR I S NOT APPLICABLE FOR DIALYSIS PATIEN TS. LACTIC ACID, [id number] 04:34:00 Test Item Value Reference Range Interpretation Comments LACTATE BLOOD VENOUS (2) (BEAKER) 1.8 mmol/L 0.5-2.2 (test code = 2872) CBC W/PLT COUNT & AUTO [id number] 04:24:00 Test Item Value Reference Range Interpretation Comments WHITE BLOOD CELL COUNT (BEAKER) 5.4 K/ L 3.5-10.5 (test code = 775) RED BLOOD CELL COUNT (BEAKER) 3.53 M/ L 3.93-5.22 L (test code = 761) HEMOGLOBIN (BEAKER) (test code = 10.3 GM/DL 11.2-15.7 L 410) HEMATOCRIT (BEAKER) (test code = 33.2 % 34.1-44.9 L 411) MEAN CORPUSCULAR VOLUME (BEAKER) 94.1 fL 79.4-94.8 (test code = 753) MEAN CORPUSCULAR HEMOGLOBIN 29.2 pg 25.6-32.2 (BEAKER) (test code = 751) MEAN CORPUSCULAR HEMOGLOBIN CONC 31.0 GM/DL 32.2-35.5 L (BEAKER) (test code = 752) RED CELL DISTRIBUTION WIDTH 14.7 % 11.7-14.4 H (BEAKER) (test code = 412) PLATELET COUNT (BEAKER) (test 137 K/CU MM 150-450 L code = 756) MEAN PLATELET VOLUME (BEAKER) 9.1 fL 9.4-12.3 L (test code = 754) NUCLEATED RED BLOOD CELLS 0 /100 WBC 0-0 (BEAKER) (test code = 413) NEUTROPHILS RELATIVE PERCENT 65 % (BEAKER) (test code = 429) LYMPHOCYTES RELATIVE PERCENT 22 % (BEAKER) (test code = 430) MONOCYTES RELATIVE PERCENT 9 % (BEAKER) (test code = 431) EOSINOPHILS RELATIVE PERCENT 3 % (BEAKER) (test code = 432) BASOPHILS RELATIVE PERCENT 1 % (BEAKER) (test code = 437) NEUTROPHILS ABSOLUTE COUNT 3.46 K/ L 1.56-6.13 (BEAKER) (test code = 670) LYMPHOCYTES ABSOLUTE COUNT 1.16 K/ L 1.18-3.74 L (BEAKER) (test code = 414) MONOCYTES ABSOLUTE COUNT (BEAKER) 0.47 K/ L 0.24-0.36 H (test code = 415) EOSINOPHILS ABSOLUTE COUNT 0.18 K/ L 0.04-0.36 (BEAKER) (test code = 416) BASOPHILS ABSOLUTE COUNT (BEAKER) 0.03 K/ L 0.01-0.08 (test code = 417) IMMATURE GRANULOCYTES-RELATIVE 1 % 0-1 PERCENT (BEAKER) (test code = 2801) POCT-GLUCOSE [id number] 00:53:00 Test Item Value Reference Range Interpretation Comments POC-GLUCOSE METER 148 mg/dL 70-110 H TESTED AT [facility] 67[address] (BEAKER) (test code = [place] 1538) [address] BODY FLUID CELL COUNT WITH [id number] 22:38:00 Test Item Value Reference Range Interpretation Comments APPEARANCE FLUID (BEAKER) (test Clear Clear code = 510) COLOR FLUID (BEAKER) (test code = Yellow Colorless, Straw A 511) RBC FLUID (BEAKER) (test code = 38 /cu mm <=1 H 513) ADJUSTED WBC FLUID (BEAKER) (test 39 /cu mm <=5 H code = 1691) LINING CELLS (BEAKER) (test code = 0 /cu mm <=1 1590) NEUTROPHILS FLUID (BEAKER) (test 2 % code = 1656) LYMPHS FLUID (BEAKER) (test code = 22 % 488) MONO/MACROPHAGE FLUID (BEAKER) 76 % (test code = 489) EOSINOPHILS FLUID (BEAKER) (test 0 % code = 491) BASO FLUID (BEAKER) (test code = 0 % 492) CONTAINER BODY FLUID (BEAKER) EDTA Tube (test code = 2873) LACTIC ACID, [id number] 21:38:00 Test Item Value Reference Range Interpretation Comments LACTATE BLOOD VENOUS 1.7 mmol/L 0.5-2.2 Specime n slightly (2) (BEAKER) (test hemolyzed code = 1198) LACTIC ACID, [id number] 21:38:00 Test Item Value Reference Range Interpretation Comments LACTATE BLOOD VENOUS 1.8 mmol/L 0.5-2.2 Specime n slightly (2) (BEAKER) (test hemolyzed code = 4812) AMYLASE, BODY [id number] 20:29:00 Test Item Value Reference Range Interpretation Comments AMYLASE FLUID (BEAKER) (test code = 6 U/L 350) Absence of reference range indicates that normals have not been defined.Assay performance has not been validated for this type of specimen.RAPID INFLUENZA A&B [id number] 20:03:00 Test Item Value Reference Range Interpretation Comments RAPID INFLUENZA A AG (BEAKER) Negative Negative, Inconclusive (test code = 1622) RAPID INFLUENZA B AG (BEAKER) Negative Negative, Inconclusive (test code = 1623) [id number] 19:56:00 Test Item Value Reference Range Interpretation Comments PROCALCITONIN (BEAKER) (test code 1.58 ng/mL <0.05 H = 3036) SEPSIS RISK (ng/mL)Low: 0.05-0.50Intermediate: 0.51-2.00High: >=2.01LACTIC ACID, [id number] 18:29:00 Test Item Value Reference Range Interpretation Comments LACTATE BLOOD VENOUS (2) (BEAKER) 2.0 mmol/L 0.5-2.2 (test code = 2872) TSH/FREE T4 IF [id number] 18:28:00 Test Item Value Reference Range Interpretation Comments THYROID STIMULATING HORMONE 3.68 uIU/mL 0.35-4.94 (BEAKER) (test code = 772) RESPIRATORY PANEL [id number] 18:19:00 Test Item Value Reference Range Interpretation Comments HUMAN METAPNEUMOVIRUS Not detected Not detected, (BEAKER) (test code = 2683) Equivocal RHINOVIRUS (BEAKER) (test Not detected Not detected, code = 2684) Equivocal INFLUENZA A (BEAKER) (test Not detected Not detected, code = 2685) Equivocal INFLUENZA A (NO SUBTYPE) Not detected, (test code = 3606) Equivocal INFLUENZA A SUBTYPE H1 Not detected, (BEAKER) (test code = 2686) Equivocal INFLUENZA A SUBTYPE H3 Not detected, (BEAKER) (test code = 2687) Equivocal INFLUENZA A SUBTYPE H1-2009 Not detected, (BEAKER) (test code = 3198) Equivocal INFLUENZA B (BEAKER) (test Not detected Not detected, code = 2688) Equivocal RESPIRATORY SYNCYTIAL VIRUS Not detected Not detected, (BEAKER) (test code = 3199) Equivocal PARAINFLUENZA VIRUS 1 Not detected Not detected, (BEAKER) (test code = 2691) Equivocal PARAINFLUENZA VIRUS 2 Not detected Not detected, (BEAKER) (test code = 2692) Equivocal PARAINFLUENZA VIRUS 3 Not detected Not detected, (BEAKER) (test code = 2693) Equivocal PARAINFLUENZA VIRUS 4 Not detected Not detected, (BEAKER) (test code = 0360) Equivocal ADENOVIRUS (BEAKER) (test Not detected Not detected, code = 2694) Equivocal CORONAVIRUS 229E (BEAKER) Not detected Not detected, (test code = 3201) Equivocal CORONAVIRUS HKU1 (BEAKER) Not detected Not detected, (test code = 3202) Equivocal CORONAVIRUS NL63 (BEAKER) Not detected Not detected, (test code = 3203) Equivocal CORONAVIRUS OC43 (BEAKER) Not detected Not detected, (test code = 3204) Equivocal BORDETELLA PERTUSSIS Not detected Not detected, (BEAKER) (test code = 3205) Equivocal CHLAMYDOPHILA PNEUMONIAE Not detected Not detected, (BEAKER) (test code = 3206) Equivocal MYCOPLASMA PNEUMONIAE Not detected Not detected, (BEAKER) (test code = 3207) Equivocal Other viruses and bacteria not targeted by this PCR panel cannot be excluded; therefore clinical correlation and follow up of serology, culture results, and other molecular studies is required. The results are not intended to be used as the sole means for clinical diagnosis or patient management decisions. This sample was tested at the [facility] using the EpicrisisArray Respiratory Panel. It is FDA cleared and has been verified and approved by the [facility] for clinical use on nasal swab specimens. It is not FDA-cleared for use on bronchial wash/lavage samples. However, for this sample type, validation was performed and test characteristics were determined and approved, by [facility] [employer] [facility] for clinical use under the Clinical Laboratory Improvement Amendments (CLIA) of 1988 requirements. Therefore, FDA clearance isnot required. This laboratory is CLIA-certified and [employer] [place] [employer] (CAP)-accredited to perform high complexity testing.BASIC METABOLIC PANEL 2018-07-30 18:15:00 Test Item Value Reference Range Interpretation Comments SODIUM (BEAKER) 136 meq/L 136-145 (test code = 381) POTASSIUM (BEAKER) 5.7 meq/L 3.5-5.1 H (test code = 379) CHLORIDE (BEAKER) 100 meq/L 98-107 (test code = 382) CO2 (BEAKER) (test 21 meq/L 22-29 L code = 355) BLOOD UREA NITROGEN 63 mg/dL 7-21 H (BEAKER) (test code = 354) CREATININE (BEAKER) 18.47 mg/dL 0.57-1.25 H (test code = 358) GLUCOSE RANDOM 180 mg/dL 70-105 H (BEAKER) (test code = 652) CALCIUM (BEAKER) 9.0 mg/dL 8.4-10.2 (test code = 697) EGFR (BEAKER) (test 2 mL/min/1.73 ESTIMAT ED GFR IS code = 1092) sq m NOT ACCURATE CREATININE CLEARANCE IN PREDICTING GLOMERULAR FILTRATION RATE . ESTIMATED GFR I S NOT APPLICABLE FOR DIALYSIS PATIEN TS. [id number] 18:13:00 Test Item Value Reference Range Interpretation Comments LIPASE (BEAKER) (test code = 749) 14 U/L 8-78 [id number] 18:13:00 Test Item Value Reference Range Interpretation Comments MAGNESIUM (BEAKER) (test code = 2.1 mg/dL 1.6-2.6 627) HEPATIC FUNCTION [id number] 18:13:00 Test Item Value Reference Range Interpretation Comments TOTAL PROTEIN (BEAKER) (test code = 7.4 gm/dL 6.0-8.3 770) ALBUMIN (BEAKER) (test code = 1145) 3.4 g/dL 3.5-5.0 L BILIRUBIN TOTAL (BEAKER) (test code 0.8 mg/dL 0.2-1.2 = 377) BILIRUBIN DIRECT (BEAKER) (test 0.3 mg/dL 0.1-0.5 code = 706) ALKALINE PHOSPHATASE (BEAKER) (test 55 U/L 40-150 code = 346) AST (SGOT) (BEAKER) (test code = 11 U/L 5-34 353) ALT (SGPT) (BEAKER) (test code = 6 U/L 6-55 347) CSF CELL COUNT [id number] 16:39:00 Test Item Value Reference Range Interpretation Comments APPEARANCE CSF (BEAKER) (test code Clear Clear = 407) COLOR CSF (BEAKER) (test code = Colorless Colorless 408) RBC CSF (BEAKER) (test code = 409) 5 /cu mm 0-5 WBC CSF (BEAKER) (test code = 2 /cu mm <=5 1020) RBCS FRESH (BEAKER) (test code = 100% Fresh 1444) NUMBER OF CELLS DIFF'D (BEAKER) 6 (test code = 1591) NEUTROPHIL, CSF (BEAKER) (test 0 % 0-5 code = 324) LYMPHS CSF (BEAKER) (test code = 67 % 40-80 438) MONO/MACROPHAGE CSF (BEAKER) (test 33 % 15-45 code = 439) EOSINOPHILS CSF (BEAKER) (test 0 % <=0 code = 360) BASO CSF (BEAKER) (test code = 0 % <=0 440) TUBE NUMBER CSF (BEAKER) (test 1 code = 2678) B-TYPE NATRIURETIC FACTOR (BNP)2018-07-30 16:25:00 Test Item Value Reference Range Interpretation Comments B-TYPE NATRIURETIC PEPTIDE 3649 pg/mL 0-100 H (BEAKER) (test code = 700) TROPONIN [id number] 16:24:00 Test Item Value Reference Range Interpretation Comments TROPONIN I (BEAKER) (test code = 0.05 ng/mL 0.00-0.03 H 397) Troponin I (TnI) levels must be interpreted in the context of the presenting symptoms and the clinical findings. Elevated TnI levels indicate myocardial damage, but are not specific for ischemic heart disease. Elevated TnI levels are seen in patients with other cardiac conditions (including myocarditis and congestive heart failure), and slight TnI elevations occur in patients with other conditions, including sepsis, renal failure, acidosis, acute neurological disease, and persistent tachyarrhythmia.GLUCOSE, [id number] 16:22:00 Test Item Value Reference Range Interpretation Comments GLUCOSE CSF (BEAKER) (test code = 100 mg/dL 40-70 H 406) PROTEIN, [id number] 16:22:00 Test Item Value Reference Range Interpretation Comments PROTEIN CSF (BEAKER) (test code = 45 mg/dL 15-45 378) TACROLIMUS [id number] 15:10:00 Test Item Value Reference Range Interpretation Comments TACROLIMUS BLOOD (BEAKER) (test code < ng/mL 10.0-20.0 L = 657) TROPONIN [id number] 14:31:00 Test Item Value Reference Range Interpretation Comments TROPONIN I (BEAKER) (test code = 0.05 ng/mL 0.00-0.03 H 397) Troponin I (TnI) levels must be interpreted in the context of the presenting symptoms and the clinical findings. Elevated TnI levels indicate myocardial damage, but are not specific for ischemic heart disease. Elevated TnI levels are seen in patients with other cardiac conditions (including myocarditis and congestive heart failure), and slight TnI elevations occur in patients with other conditions, including sepsis, renal failure, acidosis, acute neurological disease, and persistent tachyarrhythmia.PT/[id number] 14:15:00 Test Item Value Reference Range Interpretation Comments PROTIME (BEAKER) (test code = 14.0 seconds 11.7-14.7 759) INR (BEAKER) (test code = 370) 1.1 <=5.9 PARTIAL THROMBOPLASTIN TIME 30.0 seconds 22.5-36.0 (BEAKER) (test code = 760) RECOMMENDED COUMADIN/WARFARIN INR THERAPY RANGESSTANDARD DOSE: 2.0 - 3.0 Includes: PROPHYLAXIS forvenous thrombosis, systemic embolization; TREATMENT for venous thrombosis and/or pulmonary embolus.HIGH RISK: Target INR is 2.5-3.5 for patients with mechanical heart valves.PROTHROMBIN TIME/[id number] 14:14:00 Test Item Value Reference Range Interpretation Comments PROTIME (BEAKER) (test code = 14.0 seconds 11.7-14.7 759) INR (BEAKER) (test code = 370) 1.1 <=5.9 RECOMMENDED COUMADIN/WARFARIN INR THERAPY RANGESSTANDARD DOSE: 2.0 - 3.0 Includes: PROPHYLAXIS forvenous thrombosis, systemic embolization; TREATMENT for venous thrombosis and/or pulmonary embolus.HIGH RISK: Target INR is 2.5-3.5 for patients with mechanical heart valves.POCT-LACTIC ACID, [id number] 12:58:00 Test Item Value Reference Range Interpretation Comments POC-LACTIC ACID, 1.1 mmol/L 0.9-1.7 TESTED AT [facility] [address] (BEAKER) (test [facility] [place] code = 2805) [address] BLOOD GAS, [id number] 11:46:00 Test Item Value Reference Range Interpretation Comments PH ARTERIAL (BEAKER) (test code = 7.44 7.35-7.45 383) PCO2 ARTERIAL (BEAKER) (test code 34 mmHg 35-45 L = 384) PO2 ARTERIAL (BEAKER) (test code 115 mmHg 80-90 H = 385) O2 SATURATION ARTERIAL (BEAKER) 98.3 % 96.0-97.0 H (test code = 386) HCO3 ARTERIAL (BEAKER) (test code 23 mmol/L 21-29 = 388) BASE EXCESS ARTERIAL (BEAKER) -0.7 mmol/L -2.0-3.0 (test code = 387) PATIENT TEMPERATURE (BEAKER) 37.5 C (test code = 1818) FIO2 (BEAKER) (test code = 1819) 32.0 % [id number] 08:34:00 Test Item Value Reference Range Interpretation Comments MAGNESIUM (BEAKER) (test code = 2.2 mg/dL 1.6-2.6 627) [id number] 08:34:00 Test Item Value Reference Range Interpretation Comments PHOSPHORUS (BEAKER) (test code = 3.9 mg/dL 2.3-4.7 604) CT, BRAIN, WITHOUT [id number] 06:36:00Dialysis 05/23Reason for exam:- >ALTERED MENTAL STATUSIs the patient ?->NoWhat is the patient's sedation requirement?->No SedationFINAL REPORT EXAM: CT head without contrast. CLINICAL HISTORY: Headache, acute, norm neuro exam. Altered mental status. COMPARISON: None. TECHNIQUE: CT images of the head were obtained without intravenous contrast. This exam was performed according to our departmental dose optimization program which includes automated exposure control, adjustment of the mA and/or kV accordingto patient's size and/or use of iterative reconstructive technique. FINDINGS: There is no acute intracranial hemorrhage, extra-axial fluid collection, mass effect, herniation, hydrocephalus or large demarcated acute territorial infarct. The basal cisterns are patent. The visualized orbits are normal. The visualized paranasal sinuses and tympanomastoid cavities are clear. The skull base and calvarium are intact. IMPRESSION: No CT evidence of an acute intracranial process. Consider MR if clinical suspicion for acute intracranial pathology persists. Signed: Aleks Jamison MDReport Verified Date/Time: 07/30/2018 06:36:01 Reading Location: [facility] B1 C013Y CT Body Reading Room RAD, CHEST, 1 VIEW, NON [id number] 06:15:00 Dialysis 05/23Reason for exam:->coughIs the patient ?->NoShould this be performed at the bedside?->YesFINAL REPORT Chest one view. Clinical history: cough Comparison: Chest radiograph 02/20/2018. Technique: A single frontal view of the chest was obtained. Findings: The cardiac silhouette is enlarged. The aorta is tortuous. There are diffuse bilateral alveolar and interstitial opacities compatible with pulmonary edema. There are small bilateral pleural effusions. There is no pneumothorax. The bony thorax is unremarkable. Impression: Pulmonary edema. Superimposed pneumonia lori ot be excluded.Small bilateral pleural effusions. Signed: Aleks Jamison MDReport Verified Date/Time: 07/30/2018 06:15:50 Reading Location: [facility] C013Y CT Body Reading Room BASIC METABOLIC [id number] 05:44:00 Test Item Value Reference Range Interpretation Comments SODIUM (BEAKER) 138 meq/L 136-145 (test code = 381) POTASSIUM (BEAKER) 5.7 meq/L 3.5-5.1 H (test code = 379) CHLORIDE (BEAKER) 101 meq/L 98-107 (test code = 382) CO2 (BEAKER) (test 19 meq/L 22-29 L code = 355) BLOOD UREA NITROGEN 56 mg/dL 7-21 H (BEAKER) (test code = 354) CREATININE (BEAKER) 17.46 mg/dL 0.57-1.25 H (test code = 358) GLUCOSE RANDOM 153 mg/dL 70-105 H (BEAKER) (test code = 652) CALCIUM (BEAKER) 9.1 mg/dL 8.4-10.2 (test code = 697) EGFR (BEAKER) (test 2 mL/min/1.73 ESTIMAT ED GFR IS code = 1092) sq m NOT ACCURATE CREATININE CLEARANCE IN PREDICTING GLOMERULAR FILTRATION RATE . ESTIMATED GFR I S NOT APPLICABLE FOR DIALYSIS PATIEN TS. HEPATIC FUNCTION [id number] 05:42:00 Test Item Value Reference Range Interpretation Comments TOTAL PROTEIN (BEAKER) (test code = 7.9 gm/dL 6.0-8.3 770) ALBUMIN (BEAKER) (test code = 1145) 3.5 g/dL 3.5-5.0 BILIRUBIN TOTAL (BEAKER) (test code 1.0 mg/dL 0.2-1.2 = 377) BILIRUBIN DIRECT (BEAKER) (test 0.3 mg/dL 0.1-0.5 code = 706) ALKALINE PHOSPHATASE (BEAKER) (test 61 U/L 40-150 code = 346) AST (SGOT) (BEAKER) (test code = 14 U/L 5-34 353) ALT (SGPT) (BEAKER) (test code = 8 U/L 6-55 347) [id number] 05:39:00 Test Item Value Reference Range Interpretation Comments AMMONIA (BEAKER) 48 mol/L 18-72 Specimen sl ightly (test code = 348) hemolyzed CBC W/PLT COUNT & AUTO [id number] 05:34:00 Test Item Value Reference Range Interpretation Comments WHITE BLOOD CELL COUNT (BEAKER) 9.6 K/ L 3.5-10.5 (test code = 775) RED BLOOD CELL COUNT (BEAKER) 3.61 M/ L 3.93-5.22 L (test code = 761) HEMOGLOBIN (BEAKER) (test code = 10.5 GM/DL 11.2-15.7 L 410) HEMATOCRIT (BEAKER) (test code = 33.7 % 34.1-44.9 L 411) MEAN CORPUSCULAR VOLUME (BEAKER) 93.4 fL 79.4-94.8 (test code = 753) MEAN CORPUSCULAR HEMOGLOBIN 29.1 pg 25.6-32.2 (BEAKER) (test code = 751) MEAN CORPUSCULAR HEMOGLOBIN CONC 31.2 GM/DL 32.2-35.5 L (BEAKER) (test code = 752) RED CELL DISTRIBUTION WIDTH 14.6 % 11.7-14.4 H (BEAKER) (test code = 412) PLATELET COUNT (BEAKER) (test 129 K/CU MM 150-450 L code = 756) MEAN PLATELET VOLUME (BEAKER) 8.8 fL 9.4-12.3 L (test code = 754) NUCLEATED RED BLOOD CELLS 0 /100 WBC 0-0 (BEAKER) (test code = 413) NEUTROPHILS RELATIVE PERCENT 81 % (BEAKER) (test code = 429) LYMPHOCYTES RELATIVE PERCENT 12 % (BEAKER) (test code = 430) MONOCYTES RELATIVE PERCENT 5 % (BEAKER) (test code = 431) EOSINOPHILS RELATIVE PERCENT 1 % (BEAKER) (test code = 432) BASOPHILS RELATIVE PERCENT 0 % (BEAKER) (test code = 437) NEUTROPHILS ABSOLUTE COUNT 7.78 K/ L 1.56-6.13 H (BEAKER) (test code = 670) LYMPHOCYTES ABSOLUTE COUNT 1.19 K/ L 1.18-3.74 (BEAKER) (test code = 414) MONOCYTES ABSOLUTE COUNT (BEAKER) 0.43 K/ L 0.24-0.36 H (test code = 415) EOSINOPHILS ABSOLUTE COUNT 0.06 K/ L 0.04-0.36 (BEAKER) (test code = 416) BASOPHILS ABSOLUTE COUNT (BEAKER) 0.02 K/ L 0.01-0.08 (test code = 417) IMMATURE GRANULOCYTES-RELATIVE 1 % 0-1 PERCENT (BEAKER) (test code = 2801) CULTURE, [id number] 09:00:00 Test Item Value Reference Range Interpretation Comments Report Text (test CWJ 2018-05-17 721 code = Report Text) Report Text7 (test NO GROWTH WITHIN 24 HOURS code = Report Text7) Report Text8 (test PRELIMINARY REPORT code = Report Text8) Report Text9 (test code = Report Text9) Report Text10 (test DMB 2018-05-18 936 code = Report Text10) Report Text11 (test NO GROWTH WITHIN 48 HOURS code = Report Text11) Report Text12 (test PRELIMINARY REPORT code = Report Text12) Report Text13 (test code = Report Text13) Report Text14 (test PDG 2018-05-19 900 code = Report Text14) Report Text15 (test NO GROWTH WITHIN 72 HOURS code = Report Text15) Report Text16 (test FINAL REPORT code = Report Text16) WHOLE BLOOD [id number] 12:35:00 Test Item Value Reference Range Interpretation Comments WHOLE BLOOD GLUCOSE (test code = 209 MG/DL 70-99 H POC GLU) BMP, BASIC METABOLIC [id number] 11:05:00 Test Item Value Reference Range Interpretation Comments SODIUM (test code = 139 MMOL/L 137-145 NA) K+ (test code = 4.5 MMOL/L 3.5-5.1 PLEASE NOTE NEW KSERUM) REFERENCE RANGE (S) IN EFFECT EFFECTIVE 010 - NEW ANALYZER (V ITROS 5600) CHLORIDE (test code 103 MMOL/L 98-107 = CL) CO2 (test code = 25 MMOL/L 22-30 CO2) BUN (test code = 46 MG/DL 7-17 H BUN) CREA (test code = 16.8 MG/DL 0.7-1.2 H CREA) GLUCOSE (test code 212 MG/DL 70-99 H Fasting glucose = GLUCOSE) normal <100 MG/ DL- [place] [employer] recommendation* * CALCIUM (test code 7.3 MG/DL 8.4-10.2 L = CABLOOD) GFR (test code = 2 mL/min/1.73m2 A GFR of >90 GFR) mL/min/1.73m2 i s considered norm al. WHOLE BLOOD [id number] 06:45:00 Test Item Value Reference Range Interpretation Comments WHOLE BLOOD GLUCOSE (test code = 183 MG/DL 70-99 H POC GLU) WHOLE BLOOD [id number] 00:15:00 Test Item Value Reference Range Interpretation Comments WHOLE BLOOD GLUCOSE (test code = 160 MG/DL 70-99 H POC GLU) WHOLE BLOOD [id number] 21:20:00 Test Item Value Reference Range Interpretation Comments WHOLE BLOOD GLUCOSE (test code = 136 MG/DL 70-99 H POC GLU) WHOLE BLOOD [id number] 16:45:00 Test Item Value Reference Range Interpretation Comments WHOLE BLOOD GLUCOSE (test code = 127 MG/DL 70-99 H POC GLU) IRON/ BINDING CAPACITY/ [id number] 13:01:00 Test Item Value Reference Range Interpretation Comments IRON % SATURATION (test 32 % 20-45 code = %SAT) IRON (test code = FE) 77 UG/DL 37-170 If Iro n is <6 the % saturation is incalculable. IBC (test code = IBC) 238 265-497 L [id number] 13:01:00 Test Item Value Reference Range Interpretation Comments FERRITIN (test code = FERR) 573 NG/ML 6-137 H BMP, BASIC METABOLIC [id number] 05:06:00 Test Item Value Reference Range Interpretation Comments SODIUM (test code = 139 MMOL/L 137-145 NA) K+ (test code = 4.5 MMOL/L 3.5-5.1 PLEASE NOTE NEW KSERUM) REFERENCE RANGE (S) IN EFFECT EFFECTIVE 010 - NEW ANALYZER (V ITROS 5600) CHLORIDE (test code 104 MMOL/L 98-107 = CL) CO2 (test code = 25 MMOL/L 22-30 CO2) BUN (test code = 44 MG/DL 7-17 H BUN) CREA (test code = 16.1 MG/DL 0.7-1.2 H CREA) GLUCOSE (test code 177 MG/DL 70-99 H Fasting glucose = GLUCOSE) normal <100 MG/ DL- [place] [employer] recommendation* * CALCIUM (test code 7.3 MG/DL 8.4-10.2 L = CABLOOD) GFR (test code = 3 mL/min/1.73m2 A GFR of >90 GFR) mL/min/1.73m2 i s considered norm al. [id number] 04:34:00 Test Item Value Reference Range Interpretation Comments WBC (test code = 6.2 K/UL 3.5-10.9 WBC) RBC (test code = 2.34 M/UL 4.0-5.0 L RBC) HGB (test code = 7.0 G/DL 11.5-15.5 L HGB) HCT (test code = 22.1 % 34-46 L HCT) MCV (test code = 94.4 FL 80-98 MCV) MCH (test code = 29.9 PG 28-32 MCH) MCHC (test code = 31.7 G/DL 32.5-36.5 L MCHC) RDW (test code = 15.1 % 11.5-14.5 H RDW) PLT (test code = 130 K/UL 150-450 L PLT) MPV (test code = 8.7 FL 7.4-10.4 MPV) MANDIFF (test code = NO MANDIFF) SCAN (test code = NO SCAN) NEUT% (test code = 61.0 % 40-75 NEUT%) LYMPH% (test code = 28.0 % 24-44 LYMPH%) MONO% (test code = 7.2 % 0-13 MONO%) EOS% (test code = 2.4 % 0-4 EOS%) BASO % (test code = 0.3 % 0-2 BASO%) IG (test code = IG) 0 % 0-1 IG% (test code = 1.1 % 0-1 H IG% = Metam yelocytes, IG%) Myelocytes, and Promyelocytes. (Immature neutr ophils not including " bands".) > 3% IG indic ates risk of sepsis NRBC% (test code = 0 /100 WBC NRBC%) ABS NEUT (test code 3.8 K/UL 1.2-7.2 = NEUT) CELL COUNT, BODY [id number] 23:37:00 Test Item Value Reference Range Interpretation Comments SOURCE (test code = SOURBF) PERITONEALFLUID VOLUME (test code = VOLBF) 6 ML APPEARANCE (test code = CLEAR APPBF) BODY FLUID COLOR (test code = COLORLESS COLRBF) RBC (test code = RBCBF) 0 /CUMM 0-<1000 WBC (test code = WBCBF) 0 /CUMM 0-5 WHOLE BLOOD [id number] 20:40:00 Test Item Value Reference Range Interpretation Comments WHOLE BLOOD GLUCOSE (test code = 104 MG/DL 70-99 POC GLU) [id number] 17:58:00 Test Item Value Reference Range Interpretation Comments BLOOD TYPE (test code = TYPE) O Rh Positive ANTIBODY SCREEN (test code = NEGATIVE NEGATIVE SCREEN) CHEST XR 2 [id number] 16:55:[address] [id number] IMAGING REPORTPatient Name: Karin CHILEL of Service: [id number]: 46 Sex: F Order #: [id number] [facility] 1971 X-Ray Number: [id number] Record Number: [id number] Hospital Number: [id number] Physician: DUNIA COOPER -Ordering Physician: LAURA CARMICHAELT XR 2 VIEWS 05/16/2018 4:45 PMHISTORY: cough . Chest pain with shortness of breath.COMPARISON: NoneTECHNIQUE: Two-view chestFINDINGS:The cardiomediastinal silhouette is enlarged with her central vascularengorgement with pulmonary edema. There is a trace right effusion. There isno pneumothorax.IMPRESSION:1. Cardiomegaly with pulmonary edema and a trace right pleural effusion.Electronically Signed By: Coral Ko M.D., 05/16/2018 4:53 PMLegally authenticated by SUSU MONCADA 2018-05-16 16:53:21CT HEAD W/O [id number] 16:12:[address] [id number] IMAGING REPORTPatient Name: Karin CHILEL of Service: [id number]: [id number] Sex: F Order #: [id number] Room: [facility]: 1970 X-Ray Number: [id number] Record Number: [id number] Hospital Number: [id number] Physician: DUNIA COOPER -Ordering Physician: LAURA CARMICHAELHead CT 05/16/2018 4:02 PMHistory: AMS, hypertensive crisis. Altered mental status. Altered level ofconsciousness. Weakness. Blurred vision. Dizziness.Comparison: NoneTechnique: Unenhanced CT imaging of the head. This CT examwas performedusing one or more of the following dose reduction techniques: Automatedexposure control, adjustment of the mA and/or KV according to patient size,or use of iterative reconstruction technique.Findings:There is no evidence of acute intracranial abnormality. Specifically, thereis no evidence of acute hemorrhage, infarct, contusion, hydrocephalus,midline shift, or abnormal extra-axial collection. The calvarium is intact.The paranasal sinuses and mastoid air cells are clear.Impression:1. No acute intracranial abnormality.Electronically Signed By: Coral Ko M.D., 05/16/2018 4:09 PMLegally authenticated by SUSU MONCADA 2018-05-16 16:09:[id number] 15:41:00 Test Item Value Reference Range Interpretation Comments SODIUM (test code = 138 MMOL/L 137-145 NA) K+ (test code = 6.5 MMOL/L 3.5-5.1 HH PLEASE NOTE NEW KSERUM) REFERENCE RANGE (S) IN EFFECT EFFECTIVE 010 - NEW ANALYZER (V ITROS 5600) CHLORIDE (test code 103 MMOL/L 98-107 = CL) CO2 (test code = 24 MMOL/L 22-30 CO2) BUN (test code = 43 MG/DL 7-17 H BUN) CREA (test code = 15.9 MG/DL 0.7-1.2 H CREA) GLUCOSE (test code 172 MG/DL 70-99 H Fasting glucose = GLUCOSE) normal <100 MG/ DL- [place] recommendation* * CALCIUM (test code 7.3 MG/DL 8.4-10.2 L = CABLOOD) TOTPROT (test code 7.6 G/DL 6.3-8.2 = TOTPROT) ALBUMIN (test code 4.1 G/DL 3.5-5.0 = ALBSERUM) BILITOT (test code 1.1 MG/DL 0.2-1.3 = BILITOT) AST (test code = 19 U/L 15-46 AST) PHOSALK (test code 67 U/L 38-126 = PHOSALK) ALT (test code = 14 U/L 13-69 ALT) GFR (test code = 3 mL/min/1.73m2 A GFR of >90 GFR) mL/min/1.73m2 i s considered norm al. RESULTS VERIFIED.C'd TO JAMISON/SYED/[id number] 15:09:00 Test Item Value Reference Range Interpretation Comments WBC (test code = 7.9 K/UL 3.5-10.9 WBC) RBC (test code = 2.58 M/UL 4.0-5.0 L RBC) HGB (test code = 7.7 G/DL 11.5-15.5 L HGB) HCT (test code = 24.3 % 34-46 L HCT) MCV (test code = 94.2 FL 80-98 MCV) MCH (test code = 29.8 PG 28-32 MCH) MCHC (test code = 31.7 G/DL 32.5-36.5 L MCHC) RDW (test code = 15.2 % 11.5-14.5 H RDW) PLT (test code = 118 K/UL 150-450 L PLT) MPV (test code = 9.4 FL 7.4-10.4 MPV) MANDIFF (test code = NO MANDIFF) SCAN (test code = NO SCAN) NEUT% (test code = 75.0 % 40-75 NEUT%) LYMPH% (test code = 16.6 % 24-44 L LYMPH%) MONO% (test code = 5.4 % 0-13 MONO%) EOS% (test code = 1.5 % 0-4 EOS%) BASO % (test code = 0.4 % 0-2 BASO%) IG (test code = IG) 0 % 0-1 IG% (test code = 1.1 % 0-1 H IG% = Metam yelocytes, IG%) Myelocytes, and Promyelocytes. (Immature neutr ophils not including " bands".) > 3% IG indic ates risk of sepsis NRBC% (test code = 0 /100 WBC NRBC%) ABS NEUT (test code 6.0 K/UL 1.2-7.2 = NEUT) WHOLE BLOOD [id number] 14:55:00 Test Item Value Reference Range Interpretation Comments WHOLE BLOOD GLUCOSE (test code = 162 MG/DL 70-99 H POC GLU) AFB CULTURE + [id number] 13:42:00 Test Item Value Reference Range Interpretation Comments CULTURE (BEAKER) (test No acid-fast bacilli code = 1095) isolated in 42 days AFB SMEAR (BEAKER) No acid fast bacilli (test code = 994) seen FUNGUS CULTURE + [id number] 06:53:00 Test Item Value Reference Range Interpretation Comments CULTURE (BEAKER) (test No fungus isolated in code = 1095) 28 days FUNGUS SMEAR (BEAKER) No fungi seen (test code = 1406) TISSUE [id number] 18:14:00Surgical Pathology Report Case: [id number] Authorizing Provider: Kayla South Aba, MD Collected: 02/12/2018 1238 Ordering Location: [facility] Received: 02/12/2018 1400 PERIOPERATIVE SERVICES Pathologist: Amy Ortega MD Specimen: Kidney, kidney transplant allograft KIDNEY, ALLOGRAFT, 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 Cross section shows a pale townsend parenchyma with no corticomedullary architecture. No masses are seen. Talent Development Director sections are submitted as follows: A1 vasculature en face;A2 through A5, sales representative supervisor of kidney. 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 There is diffuse interstitial fibrosis and tubular atrophy with chronic lymphoplasmacytic interstitial inflammation with plasma cells in clusters. Thyroidization of tubules is present. There is moderate tubulitis in few non-atrophic tubules as well as atrophic tubules. The interstitium shows multiple lymphoid aggregates. Small to medium sized vessels show transmural arteritis and fibrocellular intimal expansion composed of foam cell and fibroblasts and near complete obliteration of lumina. No thrombosis or infarction is present.Immunostain show diffuse C4d staining along the glomerular and peritubular capillaries. There is also infiltration of T lymphocytes (CD3 positive) and monocytes (CD68 positive) in all renal compartments. Immunostain for CD20 is positive in lymphoid aggregates and in scattered interstitial lymphocytes.Electron Microscopy (performed on paraffin embedded tissue)Examination of the glomerular ultrastructure reveals that the glomerular basement membrane is variably thickened. It shows double contours due to subendothelial rarefaction and mesangial interpositioning. The mesangial matrix is not expanded. No subepithelial, subendothelial or mesangial immune complex type electron dense deposits are seen. Podocyte foot processes are focally effaced. The basement membranes of peritubular capillaries show increased lamellations (more than 5-7) in capillary cross-sections.The following special studies were performed on this case and the interpretation is incorporated in the diagnostic report above:The immunohistochemistry test was developed and its performance characteristics determined by [facility], Pathology Laboratory. It has not been cleared or approved by the U.S. Food and Drug Administration. The FDA has determined that such clearance or approval is not necessary. The test is used for clinical purposes. It should not be regarded as investigational or for research. This laboratory is certified under the Clinical Laboratory Improvement Amendments of 1988 (CLIA-88) as qualified to perform high complexity clinical laboratory testing.POCT-GLUCOSE [id number] 13:13:00 Test Item Value Reference Range Interpretation Comments POC-GLUCOSE METER 203 mg/dL 70-110 H TESTED AT [facility] 67 ([place]RELL[place]) (test code = [place] 1538) [address] TISSUE [id number] 12:32:00Surgical Pathology Report Case: [id number] Authorizing Provider: Lukasz Champion, Collected: 02/20/2018 0941 Ordering Location: [address] Received: 02/20/2018 1406 Pathologist: Prerna Ramsey MD Specimens: A) - Polyp, Colon - Right/Ascending, POLYP TAKEN WITH COLD SNARE B) - Polyp, Colon - Transverse, POLYPS X2 TAKEN WITH REGULAR FORCEP A. COLON, RIGHT/ ASCENDING, ENDOSCOPIC POLYPECTOMY: - POLYPOID COLONIC MUCOSA, INFLAMED WITH REACTIVE CHANGE - NO DEFINITE DYSPLASIA OR MALIGNANCY IDENTIFIEDB. COLON, TRANSVERSE POLYP x2, ENDOSCOPIC POLYPECTOMY: - TUBULAR ADENOMA X 2 - NO HIGH GRADE DYSPLASIA OR MALIGNANCY SEEN Signing Pathologist Direct Phone Line: [phone] signed by Prerna Ramsey MD on 02/21/2018 at 12:32 [id number] 2AnemiaA. Right ascending colon polyp; B. Transverse colon polyp x2The specimen is received in two containers of formalin both labeled with the patient's information. Part A labeled "right ascending colon polyp" and consists of a 0.3 cm fragment of townsend tissue, submitted entirely A1. Part B labe led "transverse colon polyp x2" and consists of two round fragments of townsend tissue measuring 0.6 and 0.5 cm, submitted entirely B1. CG/pl A-B. Performed. POCT-GLUCOSE [id number] 09:09:00 Test Item Value Reference Range Interpretation Comments POC-GLUCOSE METER 198 mg/dL 70-110 H TESTED AT [facility] 6720 (BEAKER) (test code = [place] 1539) [address] BASIC METABOLIC [id number] 04:27:00 Test Item Value Reference Range Interpretation Comments SODIUM (BEAKER) 136 meq/L 136-145 (test code = 381) POTASSIUM (BEAKER) 3.9 meq/L 3.5-5.1 (test code = 379) CHLORIDE (BEAKER) 95 meq/L 98-107 L (test code = 382) CO2 (BEAKER) (test 25 meq/L 22-29 code = 355) BLOOD UREA NITROGEN 32 mg/dL 7-21 H (BEAKER) (test code = 354) CREATININE (BEAKER) 10.21 mg/dL 0.57-1.25 H (test code = 358) GLUCOSE RANDOM 233 mg/dL 70-105 H (BEAKER) (test code = 652) CALCIUM (BEAKER) 8.8 mg/dL 8.4-10.2 (test code = 697) EGFR (BEAKER) (test 4 mL/min/1.73 ESTIMAT ED GFR IS code = 1092) sq m NOT ACCURATE CREATININE CLEARANCE IN PREDICTING GLOMERULAR FILTRATION RATE . ESTIMATED GFR I S NOT APPLICABLE FOR DIALYSIS PATIEN TS. [id number] 04:11:00 Test Item Value Reference Range Interpretation Comments PHOSPHORUS (BEAKER) (test code = 4.5 mg/dL 2.3-4.7 604) [id number] 04:11:00 Test Item Value Reference Range Interpretation Comments MAGNESIUM (BEAKER) (test code = 2.4 mg/dL 1.6-2.6 627) PROTHROMBIN [id number] 04:09:00 Test Item Value Reference Range Interpretation Comments PROTIME (BEAKER) (test code = 14.2 seconds 11.7-14.7 759) INR (BEAKER) (test code = 370) 1.1 <=5.9 RECOMMENDED COUMADIN/WARFARIN INR THERAPY RANGESSTANDARD DOSE: 2.0 - 3.0 Includes: PROPHYLAXIS forvenous thrombosis, systemic embolization; TREATMENT for venous thrombosis and/or pulmonary embolus.HIGH RISK: Target INR is 2.5-3.5 for patients with mechanical heart valves.CBC W/PLT COUNT & AUTO DIFFERENTIAL 2018-02-21 03:42:00 Test Item Value Reference Range Interpretation Comments WHITE BLOOD CELL COUNT (BEAKER) 6.1 K/ L 3.5-10.5 (test code = 775) RED BLOOD CELL COUNT (BEAKER) 2.94 M/ L 3.93-5.22 L (test code = 761) HEMOGLOBIN (BEAKER) (test code = 8.5 GM/DL 11.2-15.7 L 410) HEMATOCRIT (BEAKER) (test code = 26.7 % 34.1-44.9 L 411) MEAN CORPUSCULAR VOLUME (BEAKER) 90.8 fL 79.4-94.8 (test code = 753) MEAN CORPUSCULAR HEMOGLOBIN 28.9 pg 25.6-32.2 (BEAKER) (test code = 751) MEAN CORPUSCULAR HEMOGLOBIN CONC 31.8 GM/DL 32.2-35.5 L (BEAKER) (test code = 752) RED CELL DISTRIBUTION WIDTH 14.0 % 11.7-14.4 (BEAKER) (test code = 412) PLATELET COUNT (BEAKER) (test 257 K/CU MM 150-450 code = 756) MEAN PLATELET VOLUME (BEAKER) 8.9 fL 9.4-12.3 L (test code = 754) NUCLEATED RED BLOOD CELLS 0 /100 WBC 0-0 (BEAKER) (test code = 413) NEUTROPHILS RELATIVE PERCENT 48 % (BEAKER) (test code = 429) LYMPHOCYTES RELATIVE PERCENT 34 % (BEAKER) (test code = 430) MONOCYTES RELATIVE PERCENT 8 % (BEAKER) (test code = 431) EOSINOPHILS RELATIVE PERCENT 7 % (BEAKER) (test code = 432) BASOPHILS RELATIVE PERCENT 1 % (BEAKER) (test code = 437) NEUTROPHILS ABSOLUTE COUNT 2.93 K/ L 1.56-6.13 (BEAKER) (test code = 670) LYMPHOCYTES ABSOLUTE COUNT 2.06 K/ L 1.18-3.74 (BEAKER) (test code = 414) MONOCYTES ABSOLUTE COUNT (BEAKER) 0.48 K/ L 0.24-0.36 H (test code = 415) EOSINOPHILS ABSOLUTE COUNT 0.41 K/ L 0.04-0.36 H (BEAKER) (test code = 416) BASOPHILS ABSOLUTE COUNT (BEAKER) 0.04 K/ L 0.01-0.08 (test code = 417) IMMATURE GRANULOCYTES-RELATIVE 3 % 0-1 H PERCENT (ESTRELLA) (test code = 2801) POCT-GLUCOSE [id number] 23:24:00 Test Item Value Reference Range Interpretation Comments POC-GLUCOSE METER 259 mg/dL 70-110 H TESTED AT [place] [address] ([facility]) (test code = [place] 1538) [address] CT, CHEST WITH IV CONTRAST- PE TEST [id number] 22:13:00Dialysis 05/23FINAL REPORT CT Chest PE Protocol dated 02/20/2018 Clinical information: Shortness of breath Technique: This exam was performed according to our departmental dose-optimization program, which includes automated exposure control, adjustment of the mA and/or kV according to patient size and/or use of interactive reconstruction technique. Precontrast axial images were obtained at pulmonary trunk level for the purpose of monitoring subsequent IV contrast. Postcontrast axial images of the chest were obtained from above the arch level to the lower chest at maximum enhancement of pulmonary artery. Delayed axial images of the entire chest were obtained subsequently. Coronal and sagittal reformations of the pulmonary arteries were performed. Comment: Heart is enlarged. Greater vessels are unremarkable. No filling detect is noted in the pulmonary trunk or pulmonary arteries. No adenopathy is noted in the mediastinum or perihilar region. Trachea and mainstem bronchi are patent. Subsegmental atelectasis is seen in both lower lobe and lingula. The rest of the lungs are clear. No nodular, mass lesion or airspace is present. No pleural effusion or pleural base mass is seen. Impression: 1. No pulmonary thromboembolism.2. Cardiomegaly.3. Bibasilar and lingular subsegmental atelectasis. Signed: Catrachita Cabral MDReport Verified Date/Time: 02/20/2018 22:13:58 Reading Location: [facility] [id number] Consult Reading Room POCT-GLUCOSE [id number] 17:56:00 Test Item Value Reference Range Interpretation Comments POC-GLUCOSE METER 132 mg/dL 70-110 H TESTED AT [place] [address] ([facility]) (test code = G[facility] 1538) [address] RAD, CHEST, 1 VIEW, NON [id number] 14:28:00Dialysis 05/23Reason for exam:- >edemaShould this be performed at the bedside?->YesFINAL REPORT TECHNIQUE: Frontal chest radiograph dated 02/20/2018. CLINICAL H ISTORY: Edema COMPARISON STUDY: Chest radiograph dated 02/16/2018 IMPRESSION:Right-sided vascular line has been removed. Minimal atelectasis is seen in the left lung base. No pleural effusion or pneumothorax. Cardiomediastinal silhouette is stable in size. No pulmonary edema. No fracture. Signed: Dylan Núñez Verified Date/Time: 02/20/2018 14:28:38 Reading Location: [facility] Radiology Reading Room POCT-GLUCOSE [id number] 11:40:00 Test Item Value Reference Range Interpretation Comments POC-GLUCOSE METER 79 mg/dL 70-110 TESTED AT [facility] 6720 ([facility]) (test code = G[facility]DA [facility] [address] 1538) POCT-GLUCOSE [id number] 09:09:00 Test Item Value Reference Range Interpretation Comments POC-GLUCOSE METER 76 mg/dL 70-110 TESTED AT [place] [address] ([facility]) (test code = G[place]DA [place] [facility] [address] 1538) BASIC METABOLIC [id number] 06:28:00 Test Item Value Reference Range Interpretation Comments SODIUM (BEAKER) 140 meq/L 136-145 (test code = 381) POTASSIUM (BEAKER) 4.2 meq/L 3.5-5.1 (test code = 379) CHLORIDE (BEAKER) 98 meq/L 98-107 (test code = 382) CO2 (BEAKER) (test 30 meq/L 22-29 H code = 355) BLOOD UREA NITROGEN 27 mg/dL 7-21 H (BEAKER) (test code = 354) CREATININE (BEAKER) 8.20 mg/dL 0.57-1.25 H (test code = 358) GLUCOSE RANDOM 125 mg/dL 70-105 H (BEAKER) (test code = 652) CALCIUM (BEAKER) 9.3 mg/dL 8.4-10.2 (test code = 697) EGFR (BEAKER) (test 5 mL/min/1.73 ESTIMAT ED GFR IS code = 1092) sq m NOT ACCURATE CREATININE CLEARANCE IN PREDICTING GLOMERULAR FILTRATION RATE . ESTIMATED GFR I S NOT APPLICABLE FOR DIALYSIS PATIEN TS. [id number] 06:27:00 Test Item Value Reference Range Interpretation Comments PHOSPHORUS (BEAKER) (test code = 4.9 mg/dL 2.3-4.7 H 604) [id number] 06:27:00 Test Item Value Reference Range Interpretation Comments MAGNESIUM (BEAKER) (test code = 2.3 mg/dL 1.6-2.6 627) PROTHROMBIN [id number] 06:12:00 Test Item Value Reference Range Interpretation Comments PROTIME (BEAKER) (test code = 14.5 seconds 11.7-14.7 759) INR (BEAKER) (test code = 370) 1.1 <=5.9 RECOMMENDED COUMADIN/WARFARIN INR THERAPY RANGESSTANDARD DOSE: 2.0 - 3.0 Includes: PROPHYLAXIS forvenous thrombosis, systemic embolization; TREATMENT for venous thrombosis and/or pulmonary embolus.HIGH RISK: Target INR is 2.5-3.5 for patients with mechanical heart valves.CBC (HEMOGRAM ONLY)2018-02-20 06:05:00 Test Item Value Reference Range Interpretation Comments WHITE BLOOD CELL COUNT (BEAKER) 6.1 K/ L 3.5-10.5 (test code = 775) RED BLOOD CELL COUNT (BEAKER) 2.66 M/ L 3.93-5.22 L (test code = 761) HEMOGLOBIN (BEAKER) (test code = 7.7 GM/DL 11.2-15.7 L 410) HEMATOCRIT (BEAKER) (test code = 24.1 % 34.1-44.9 L 411) MEAN CORPUSCULAR VOLUME (BEAKER) 90.6 fL 79.4-94.8 (test code = 753) MEAN CORPUSCULAR HEMOGLOBIN 28.9 pg 25.6-32.2 (BEAKER) (test code = 751) MEAN CORPUSCULAR HEMOGLOBIN CONC 32.0 GM/DL 32.2-35.5 L (BEAKER) (test code = 752) RED CELL DISTRIBUTION WIDTH 13.8 % 11.7-14.4 (BEAKER) (test code = 412) PLATELET COUNT (AKER) (test 220 K/CU MM 150-450 code = 756) MEAN PLATELET VOLUME (AKER) 9.4 fL 9.4-12.3 (test code = 754) NUCLEATED RED BLOOD CELLS 0 /100 WBC 0-0 ([facility]) (test code = 413) POCT-GLUCOSE [id number] 21:36:00 Test Item Value Reference Range Interpretation Comments POC-GLUCOSE METER 247 mg/dL 70-110 H TESTED AT [place] [address] ([facility]) (test code = [facility] 1538) [address] POCT-GLUCOSE [id number] 17:43:00 Test Item Value Reference Range Interpretation Comments POC-GLUCOSE METER 95 mg/dL 70-110 TESTED AT [place] [address] ([facility]) (test code = [facility] [address] 1538) [id number] 14:31:00 Test Item Value Reference Range Interpretation Comments HAPTOGLOBIN (BEAKER) (test code = 339 mg/dL 14-258 H 366) POCT-GLUCOSE [id number] 13:39:00 Test Item Value Reference Range Interpretation Comments POC-GLUCOSE METER 143 mg/dL 70-110 H TESTED AT [place] [address] ([facility]) (test code = [facility] 1538) [address] POCT-GLUCOSE [id number] 08:47:00 Test Item Value Reference Range Interpretation Comments POC-GLUCOSE METER 142 mg/dL 70-110 H TESTED AT [place] [address] ([facility]) (test code = [facility] 1538) [address] VITAMIN B12 AND [id number] 04:25:00 Test Item Value Reference Range Interpretation Comments VITAMIN B12 (BEAKER) (test code = 252 pg/mL 213-816 774) FOLATE (BEAKER) (test code = 362) 10.9 ng/mL >=7.0 BASIC METABOLIC [id number] 03:56:00 Test Item Value Reference Range Interpretation Comments SODIUM (BEAKER) 138 meq/L 136-145 (test code = 381) POTASSIUM (BEAKER) 4.1 meq/L 3.5-5.1 (test code = 379) CHLORIDE (BEAKER) 99 meq/L 98-107 (test code = 382) CO2 (BEAKER) (test 26 meq/L 22-29 code = 355) BLOOD UREA NITROGEN 22 mg/dL 7-21 H (BEAKER) (test code = 354) CREATININE (BEAKER) 6.88 mg/dL 0.57-1.25 H (test code = 358) GLUCOSE RANDOM 153 mg/dL 70-105 H (BEAKER) (test code = 652) CALCIUM (BEAKER) 9.0 mg/dL 8.4-10.2 (test code = 697) EGFR (BEAKER) (test 6 mL/min/1.73 ESTIMAT ED GFR IS code = 1092) sq m NOT ACCURATE CREATININE CLEARANCE IN PREDICTING GLOMERULAR FILTRATION RATE . ESTIMATED GFR I S NOT APPLICABLE FOR DIALYSIS PATIEN TS. [id number] 03:55:00 Test Item Value Reference Range Interpretation Comments PHOSPHORUS (BEAKER) (test code = 4.0 mg/dL 2.3-4.7 604) [id number] 03:55:00 Test Item Value Reference Range Interpretation Comments MAGNESIUM (BEAKER) (test code = 2.4 mg/dL 1.6-2.6 627) LACTATE DEHYDROGENASE (LDH)2018-02-19 03:55:00 Test Item Value Reference Range Interpretation Comments LACTATE DEHYDROGENASE (BEAKER) (test 209 U/L 125-220 code = 635) IRON, TIBC, % SAT. (WITHOUT FERRITIN)2018-02-19 03:50:00 Test Item Value Reference Range Interpretation Comments IRON (BEAKER) (test code = 547) 63 ug/dL 40-160 TOTAL IRON BINDING CAPACITY 251 ug/dL 250-450 (BEAKER) (test code = 769) IRON % SATURATION (2) (BEAKER) 25 % 20-55 (test code = 2590) ANAEROBIC [id number] 03:46:00 Test Item Value Reference Range Interpretation Comments CULTURE (BEAKER) (test No anaerobes isolated code = 1095) PROTHROMBIN [id number] 03:41:00 Test Item Value Reference Range Interpretation Comments PROTIME (BEAKER) (test code = 14.2 seconds 11.7-14.7 759) INR (BEAKER) (test code = 370) 1.1 <=5.9 RECOMMENDED COUMADIN/WARFARIN INR THERAPY RANGESSTANDARD DOSE: 2.0 - 3.0 Includes: PROPHYLAXIS forvenous thrombosis, systemic embolization; TREATMENT for venous thrombosis and/or pulmonary embolus.HIGH RISK: Target INR is 2.5-3.5 for patients with mechanical heart valves.CBC (HEMOGRAM ONLY)2018-02-19 03:34:00 Test Item Value Reference Range Interpretation Comments WHITE BLOOD CELL COUNT (BEAKER) 7.3 K/ L 3.5-10.5 (test code = 775) RED BLOOD CELL COUNT (BEAKER) 2.88 M/ L 3.93-5.22 L (test code = 761) HEMOGLOBIN (BEAKER) (test code = 8.5 GM/DL 11.2-15.7 L 410) HEMATOCRIT (BEAKER) (test code = 26.6 % 34.1-44.9 L 411) MEAN CORPUSCULAR VOLUME (BEAKER) 92.4 fL 79.4-94.8 (test code = 753) MEAN CORPUSCULAR HEMOGLOBIN 29.5 pg 25.6-32.2 (BEAKER) (test code = 751) MEAN CORPUSCULAR HEMOGLOBIN CONC 32.0 GM/DL 32.2-35.5 L (BEAKER) (test code = 752) RED CELL DISTRIBUTION WIDTH 14.2 % 11.7-14.4 (BEAKER) (test code = 412) PLATELET COUNT (BEAKER) (test 230 K/CU MM 150-450 code = 756) MEAN PLATELET VOLUME (BEAKER) 9.1 fL 9.4-12.3 L (test code = 754) NUCLEATED RED BLOOD CELLS 0 /100 WBC 0-0 (BEAKER) (test code = 413) RETICULOCYTE [id number] 03:34:00 Test Item Value Reference Range Interpretation Comments RETICULOCYTE COUNT PCT (BEAKER) (test 2.9 % 0.5-1.7 H code = 575) POCT-GLUCOSE [id number] 21:15:00 Test Item Value Reference Range Interpretation Comments POC-GLUCOSE METER 170 mg/dL 70-110 H TESTED AT [facility] 6720 (BEAKER) (test code = [place] 1538) [address] POCT-GLUCOSE [id number] 17:30:00 Test Item Value Reference Range Interpretation Comments POC-GLUCOSE METER 152 mg/dL 70-110 H TESTED AT [facility] 6720 (BEAKER) (test code = [place] 1538) [address] POCT-GLUCOSE [id number] 12:46:00 Test Item Value Reference Range Interpretation Comments POC-GLUCOSE METER 92 mg/dL 70-110 TESTED AT [facility] 6720 (BEAKER) (test code = [place] [address] 1538) BASIC METABOLIC [id number] 04:30:00 Test Item Value Reference Range Interpretation Comments SODIUM (BEAKER) 139 meq/L 136-145 (test code = 381) POTASSIUM (BEAKER) 4.5 meq/L 3.5-5.1 (test code = 379) CHLORIDE (BEAKER) 99 meq/L 98-107 (test code = 382) CO2 (BEAKER) (test 28 meq/L 22-29 code = 355) BLOOD UREA NITROGEN 41 mg/dL 7-21 H (BEAKER) (test code = 354) CREATININE (BEAKER) 10.60 mg/dL 0.57-1.25 H (test code = 358) GLUCOSE RANDOM 145 mg/dL 70-105 H (BEAKER) (test code = 652) CALCIUM (BEAKER) 8.4 mg/dL 8.4-10.2 (test code = 697) EGFR (BEAKER) (test 4 mL/min/1.73 ESTIMAT ED GFR IS code = 1092) sq m NOT ACCURATE CREATININE CLEARANCE IN PREDICTING GLOMERULAR FILTRATION RATE . ESTIMATED GFR I S NOT APPLICABLE FOR DIALYSIS PATIEN TS. [id number] 04:29:00 Test Item Value Reference Range Interpretation Comments PHOSPHORUS (BEAKER) (test code = 6.2 mg/dL 2.3-4.7 H 604) [id number] 04:29:00 Test Item Value Reference Range Interpretation Comments MAGNESIUM (BEAKER) (test code = 2.3 mg/dL 1.6-2.6 627) CBC (HEMOGRAM ONLY)2018-02-18 04:14:00 Test Item Value Reference Range Interpretation Comments WHITE BLOOD CELL COUNT (BEAKER) 8.0 K/ L 3.5-10.5 (test code = 775) RED BLOOD CELL COUNT (BEAKER) 2.49 M/ L 3.93-5.22 L (test code = 761) HEMOGLOBIN (BEAKER) (test code = 7.2 GM/DL 11.2-15.7 L 410) HEMATOCRIT (BEAKER) (test code = 22.6 % 34.1-44.9 L 411) MEAN CORPUSCULAR VOLUME (BEAKER) 90.8 fL 79.4-94.8 (test code = 753) MEAN CORPUSCULAR HEMOGLOBIN 28.9 pg 25.6-32.2 (BEAKER) (test code = 751) MEAN CORPUSCULAR HEMOGLOBIN CONC 31.9 GM/DL 32.2-35.5 L (BEAKER) (test code = 752) RED CELL DISTRIBUTION WIDTH 14.9 % 11.7-14.4 H (BEAKER) (test code = 412) PLATELET COUNT (BEAKER) (test 161 K/CU MM 150-450 code = 756) MEAN PLATELET VOLUME (BEAKER) 9.2 fL 9.4-12.3 L (test code = 754) NUCLEATED RED BLOOD CELLS 0 /100 WBC 0-0 (BEAKER) (test code = 413) PROTHROMBIN [id number] 04:13:00 Test Item Value Reference Range Interpretation Comments PROTIME (BEAKER) (test code = 14.7 seconds 11.7-14.7 759) INR (BEAKER) (test code = 370) 1.2 <=5.9 RECOMMENDED COUMADIN/WARFARIN INR THERAPY RANGESSTANDARD DOSE: 2.0 - 3.0 Includes: PROPHYLAXIS forvenous thrombosis, systemic embolization; TREATMENT for venous thrombosis and/or pulmonary embolus.HIGH RISK: Target INR is 2.5-3.5 for patients with mechanical heart valves.OCCULT BLOOD, [id number] 23:05:00 Test Item Value Reference Range Interpretation Comments FECAL OCCULT BLOOD (BEAKER) (test Negative Negative code = 618) POCT-GLUCOSE [id number] 22:06:00 Test Item Value Reference Range Interpretation Comments POC-GLUCOSE METER 243 mg/dL 70-110 H TESTED AT [facility] 6720 (BEAKER) (test code = [place] [place] 1538) [address] POCT-GLUCOSE [id number] 22:06:00 Test Item Value Reference Range Interpretation Comments POC-GLUCOSE METER 134 mg/dL 70-110 H TESTED AT [facility] 6720 (BEAKER) (test code = [place] 1538) [id number] POCT-GLUCOSE [id number] 22:06:00 Test Item Value Reference Range Interpretation Comments POC-GLUCOSE METER 211 mg/dL 70-110 H TESTED AT [facility] 6720 (BEAKER) (test code = [place] 1538) [address] CBC W/PLT COUNT & AUTO [id number] 21:49:00 Test Item Value Reference Range Interpretation Comments WHITE BLOOD CELL COUNT (BEAKER) 8.8 K/ L 3.5-10.5 (test code = 775) RED BLOOD CELL COUNT (BEAKER) 2.96 M/ L 3.93-5.22 L (test code = 761) HEMOGLOBIN (BEAKER) (test code = 8.7 GM/DL 11.2-15.7 L 410) HEMATOCRIT (BEAKER) (test code = 27.2 % 34.1-44.9 L 411) MEAN CORPUSCULAR VOLUME (BEAKER) 91.9 fL 79.4-94.8 (test code = 753) MEAN CORPUSCULAR HEMOGLOBIN 29.4 pg 25.6-32.2 (BEAKER) (test code = 751) MEAN CORPUSCULAR HEMOGLOBIN CONC 32.0 GM/DL 32.2-35.5 L (BEAKER) (test code = 752) RED CELL DISTRIBUTION WIDTH 14.8 % 11.7-14.4 H (BEAKER) (test code = 412) PLATELET COUNT (BEAKER) (test 179 K/CU MM 150-450 code = 756) MEAN PLATELET VOLUME (BEAKER) 9.1 fL 9.4-12.3 L (test code = 754) NUCLEATED RED BLOOD CELLS 0 /100 WBC 0-0 (BEAKER) (test code = 413) NEUTROPHILS RELATIVE PERCENT 60 % (BEAKER) (test code = 429) LYMPHOCYTES RELATIVE PERCENT 29 % (BEAKER) (test code = 430) MONOCYTES RELATIVE PERCENT 7 % (BEAKER) (test code = 431) EOSINOPHILS RELATIVE PERCENT 3 % (BEAKER) (test code = 432) BASOPHILS RELATIVE PERCENT 0 % (BEAKER) (test code = 437) NEUTROPHILS ABSOLUTE COUNT 5.28 K/ L 1.56-6.13 (BEAKER) (test code = 670) LYMPHOCYTES ABSOLUTE COUNT 2.53 K/ L 1.18-3.74 (BEAKER) (test code = 414) MONOCYTES ABSOLUTE COUNT (BEAKER) 0.64 K/ L 0.24-0.36 H (test code = 415) EOSINOPHILS ABSOLUTE COUNT 0.30 K/ L 0.04-0.36 (BEAKER) (test code = 416) BASOPHILS ABSOLUTE COUNT (BEAKER) 0.02 K/ L 0.01-0.08 (test code = 417) IMMATURE GRANULOCYTES-RELATIVE 0 % 0-1 PERCENT (BEAKER) (test code = 2801) POCT-GLUCOSE [id number] 21:21:00 Test Item Value Reference Range Interpretation Comments POC-GLUCOSE METER 171 mg/dL 70-110 H TESTED AT [place] [address] ([facility]) (test code = [facility] 1538) [id number] POCT-GLUCOSE [id number] 18:27:00 Test Item Value Reference Range Interpretation Comments POC-GLUCOSE METER 175 mg/dL 70-110 H TESTED AT [place] [address] ([facility]) (test code = [facility] 1538) [address] POCT-GLUCOSE [id number] 09:03:00 Test Item Value Reference Range Interpretation Comments POC-GLUCOSE METER 136 mg/dL 70-110 H TESTED AT [place] [address] ([facility]) ([facility] [address] BASIC METABOLIC [id number] 06:57:00 Test Item Value Reference Range Interpretation Comments SODIUM (BEAKER) 140 meq/L 136-145 (test code = 381) POTASSIUM (BEAKER) 4.8 meq/L 3.5-5.1 Specimen slightly (test code = 379) hemolyzed CHLORIDE (BEAKER) 101 meq/L 98-107 (test code = 382) CO2 (BEAKER) (test 29 meq/L 22-29 code = 355) BLOOD UREA NITROGEN 28 mg/dL 7-21 H (BEAKER) (test code = 354) CREATININE (BEAKER) 8.57 mg/dL 0.57-1.25 H Specimen slightly (test code = 358) hemolyzed GLUCOSE RANDOM 105 mg/dL 70-105 (BEAKER) (test code = 652) CALCIUM (BEAKER) 8.4 mg/dL 8.4-10.2 (test code = 697) EGFR (BEAKER) (test 5 mL/min/1.73 ESTIMAT ED GFR IS code = 1092) sq m NOT ACCURATE CREATININE CLEARANCE IN PREDICTING GLOMERULAR FILTRATION RATE . ESTIMATED GFR I S NOT APPLICABLE FOR DIALYSIS PATIEN TS. [id number] 06:52:00 Test Item Value Reference Range Interpretation Comments MAGNESIUM (BEAKER) 2.6 mg/dL 1.6-2.6 Specimen slightly (test code = 627) hemolyzed [id number] 06:52:00 Test Item Value Reference Range Interpretation Comments PHOSPHORUS (BEAKER) 5.6 mg/dL 2.3-4.7 H Specimen slightly (test code = 604) hemolyzed PROTHROMBIN [id number] 06:52:00 Test Item Value Reference Range Interpretation Comments PROTIME (BEAKER) (test code = 16.4 seconds 11.7-14.7 H 759) INR (BEAKER) (test code = 370) 1.3 <=5.9 RECOMMENDED COUMADIN/WARFARIN INR THERAPY RANGESSTANDARD DOSE: 2.0 - 3.0 Includes: PROPHYLAXIS forvenous thrombosis, systemic embolization; TREATMENT for venous thrombosis and/or pulmonary embolus.HIGH RISK: Target INR is 2.5-3.5 for patients with mechanical heart valves.CBC (HEMOGRAM ONLY)[id number] 06:47:00 Test Item Value Reference Range Interpretation Comments WHITE BLOOD CELL COUNT (BEAKER) 9.0 K/ L 3.5-10.5 (test code = 775) RED BLOOD CELL COUNT (BEAKER) 2.27 M/ L 3.93-5.22 L (test code = 761) HEMOGLOBIN (BEAKER) (test code = 6.8 GM/DL 11.2-15.7 L 410) HEMATOCRIT (BEAKER) (test code = 21.7 % 34.1-44.9 L 411) MEAN CORPUSCULAR VOLUME (BEAKER) 95.6 fL 79.4-94.8 H (test code = 753) MEAN CORPUSCULAR HEMOGLOBIN 30.0 pg 25.6-32.2 (BEAKER) (test code = 751) MEAN CORPUSCULAR HEMOGLOBIN CONC 31.3 GM/DL 32.2-35.5 L (BEAKER) (test code = 752) RED CELL DISTRIBUTION WIDTH 14.6 % 11.7-14.4 H (BEAKER) (test code = 412) PLATELET COUNT (BEAKER) (test 163 K/CU MM 150-450 code = 756) MEAN PLATELET VOLUME (BEAKER) 9.5 fL 9.4-12.3 (test code = 754) NUCLEATED RED BLOOD CELLS 0 /100 WBC 0-0 (BEAKER) (test code = 413) POCT-GLUCOSE [id number] 21:13:00 Test Item Value Reference Range Interpretation Comments POC-GLUCOSE METER 143 mg/dL 70-110 H TESTED AT [place] [address] ([facility]) (test code = [facility] 1538) [address] POCT-GLUCOSE [id number] 18:12:00 Test Item Value Reference Range Interpretation Comments POC-GLUCOSE METER 177 mg/dL 70-110 H TESTED AT [place] [address] ([facility]) (test code = [facility] 1538) [address] POCT-GLUCOSE [id number] 18:12:00 Test Item Value Reference Range Interpretation Comments POC-GLUCOSE METER 127 mg/dL 70-110 H TESTED AT [place] [address] ([facility]) (test code = [facility] 1538) [address] CBC W/PLT COUNT & AUTO [id number] 12:47:00 Test Item Value Reference Range Interpretation Comments WHITE BLOOD CELL COUNT (BEAKER) 11.9 K/ L 3.5-10.5 H (test code = 775) RED BLOOD CELL COUNT (BEAKER) 2.66 M/ L 3.93-5.22 L (test code = 761) HEMOGLOBIN (BEAKER) (test code = 7.9 GM/DL 11.2-15.7 L 410) HEMATOCRIT (BEAKER) (test code = 24.5 % 34.1-44.9 L 411) MEAN CORPUSCULAR VOLUME (BEAKER) 92.1 fL 79.4-94.8 (test code = 753) MEAN CORPUSCULAR HEMOGLOBIN 29.7 pg 25.6-32.2 (BEAKER) (test code = 751) MEAN CORPUSCULAR HEMOGLOBIN CONC 32.2 GM/DL 32.2-35.5 (BEAKER) (test code = 752) RED CELL DISTRIBUTION WIDTH 14.4 % 11.7-14.4 (BEAKER) (test code = 412) PLATELET COUNT (BEAKER) (test 145 K/CU MM 150-450 L code = 756) MEAN PLATELET VOLUME (BEAKER) 9.1 fL 9.4-12.3 L (test code = 754) NUCLEATED RED BLOOD CELLS 0 /100 WBC 0-0 (BEAKER) (test code = 413) NEUTROPHILS RELATIVE PERCENT 78 % (BEAKER) (test code = 429) LYMPHOCYTES RELATIVE PERCENT 14 % (BEAKER) (test code = 430) MONOCYTES RELATIVE PERCENT 4 % (BEAKER) (test code = 431) EOSINOPHILS RELATIVE PERCENT 2 % (BEAKER) (test code = 432) BASOPHILS RELATIVE PERCENT 0 % (BEAKER) (test code = 437) NEUTROPHILS ABSOLUTE COUNT 9.26 K/ L 1.56-6.13 H (BEAKER) (test code = 670) LYMPHOCYTES ABSOLUTE COUNT 1.71 K/ L 1.18-3.74 (BEAKER) (test code = 414) MONOCYTES ABSOLUTE COUNT (BEAKER) 0.52 K/ L 0.24-0.36 H (test code = 415) EOSINOPHILS ABSOLUTE COUNT 0.27 K/ L 0.04-0.36 (BEAKER) (test code = 416) BASOPHILS ABSOLUTE COUNT (BEAKER) 0.02 K/ L 0.01-0.08 (test code = 417) IMMATURE GRANULOCYTES-RELATIVE 1 % 0-1 PERCENT (BEAKER) (test code = 2802) POCT-GLUCOSE [id number] 11:58:00 Test Item Value Reference Range Interpretation Comments POC-GLUCOSE METER 109 mg/dL 70-110 TESTED AT [place] [address] ([facility]) (test code = [facility] 1538) [address] POCT-GLUCOSE [id number] 09:34:00 Test Item Value Reference Range Interpretation Comments POC-GLUCOSE METER 105 mg/dL 70-110 TESTED AT [place] [address] ([facility]) (test code = [facility] 1538) [address] [id number] 07:19:00 Test Item Value Reference Range Interpretation Comments PREALBUMIN (BEAKER) (test code = 23 mg/dL 14-45 586) BASIC METABOLIC [id number] 07:06:00 Test Item Value Reference Range Interpretation Comments SODIUM (BEAKER) 138 meq/L 136-145 (test code = 381) POTASSIUM (BEAKER) 4.2 meq/L 3.5-5.1 (test code = 379) CHLORIDE (BEAKER) 97 meq/L 98-107 L (test code = 382) CO2 (BEAKER) (test 25 meq/L 22-29 code = 355) BLOOD UREA NITROGEN 50 mg/dL 7-21 H (BEAKER) (test code = 354) CREATININE (BEAKER) 14.02 mg/dL 0.57-1.25 H (test code = 358) GLUCOSE RANDOM 90 mg/dL 70-105 (BEAKER) (test code = 652) CALCIUM (BEAKER) 7.5 mg/dL 8.4-10.2 L (test code = 697) EGFR (BEAKER) (test 3 mL/min/1.73 ESTIMAT ED GFR IS code = 1092) sq m NOT ACCURATE CREATININE CLEARANCE IN PREDICTING GLOMERULAR FILTRATION RATE . ESTIMATED GFR I S NOT APPLICABLE FOR DIALYSIS PATIEN TS. [id number] 07:04:00 Test Item Value Reference Range Interpretation Comments PHOSPHORUS (BEAKER) (test code = 7.9 mg/dL 2.3-4.7 H 604) [id number] 07:04:00 Test Item Value Reference Range Interpretation Comments MAGNESIUM (BEAKER) (test code = 2.5 mg/dL 1.6-2.6 627) PROTHROMBIN [id number] 06:49:00 Test Item Value Reference Range Interpretation Comments PROTIME (BEAKER) (test code = 15.6 seconds 11.7-14.7 H 759) INR (BEAKER) (test code = 370) 1.2 <=5.9 RECOMMENDED COUMADIN/WARFARIN INR THERAPY RANGESSTANDARD DOSE: 2.0 - 3.0 Includes: PROPHYLAXIS forvenous thrombosis, systemic embolization; TREATMENT for venous thrombosis and/or pulmonary embolus.HIGH RISK: Target INR is 2.5-3.5 for patients with mechanical heart valves.HEPATITIS B SURFACE [id number] 01:41:00 Test Item Value Reference Range Interpretation Comments HEPATITIS B SURFACE ANTIGEN (2) Nonreactive Nonreactive (BEAKER) (test code = 2585) RAD, CHEST, 2 VIEWS, APICAL [id number] 00:08:00Dialysis 05/23Reason for exam:->patient requiring persistent [id number] REPORT INDICATION: patient requiring persistent o2 COMPARISON: February 13, 2018 TECHNIQUE: Frontal and lateral views of the chest. IMPRESSION:Limited by body habitus.Lungs and pleura: Areas of subsegmental atelectasis versus developing edema. Trace posterior lesions.Heart and mediastinum: Unchanged cardiomegaly. No hilar adenopathy.Osseous structures: No acute abnormality.Additional findings: Stable IJ central venous catheter. Signed: JR Arce Robert MDReport Verified Date/Time: 02/16/2018 00:08:03 Reading Location: [address] Reading Room POCT-GLUCOSE [id number] 17:09:00 Test Item Value Reference Range Interpretation Comments POC-GLUCOSE METER 181 mg/dL 70-110 H TESTED AT [place] [address] ([facility]) (test code = [facility] [facility] 1538) [address] POCT-GLUCOSE [id number] 10:53:00 Test Item Value Reference Range Interpretation Comments POC-GLUCOSE METER 138 mg/dL 70-110 H TESTED AT [place] [address] ([facility]) (test code = [facility]) [address] POCT-GLUCOSE [id number] 10:53:00 Test Item Value Reference Range Interpretation Comments POC-GLUCOSE METER 201 mg/dL 70-110 H TESTED AT [place] [address] ([facility]) (test code = [facility] 1538) [address] SURGICALLY OBTAINED CULTURE + GRAM [id number] 08:17:00 Test Item Value Reference Range Interpretation Comments CULTURE ([facility]) (test code No growth = 1095) GRAM STAIN RESULT ([facility]) <1+ WBCs (test code = 1123) GRAM STAIN RESULT ([facility]) No organisms seen (test code = 38176) POCT-GLUCOSE [id number] 08:10:00 Test Item Value Reference Range Interpretation Comments POC-GLUCOSE METER 160 mg/dL 70-110 H TESTED AT [place] [address] ([facility]) (test code = [facility] 1538) [address] CBC W/PLT COUNT & AUTO [id number] 07:01:00 Test Item Value Reference Range Interpretation Comments WHITE BLOOD CELL COUNT (BEAKER) 8.1 K/ L 3.5-10.5 (test code = 775) RED BLOOD CELL COUNT (BEAKER) 2.47 M/ L 3.93-5.22 L (test code = 761) HEMOGLOBIN (BEAKER) (test code = 7.4 GM/DL 11.2-15.7 L 410) HEMATOCRIT (BEAKER) (test code = 23.5 % 34.1-44.9 L 411) MEAN CORPUSCULAR VOLUME (BEAKER) 95.1 fL 79.4-94.8 H (test code = 753) MEAN CORPUSCULAR HEMOGLOBIN 30.0 pg 25.6-32.2 (BEAKER) (test code = 751) MEAN CORPUSCULAR HEMOGLOBIN CONC 31.5 GM/DL 32.2-35.5 L (BEAKER) (test code = 752) RED CELL DISTRIBUTION WIDTH 15.2 % 11.7-14.4 H (BEAKER) (test code = 412) PLATELET COUNT (BEAKER) (test 123 K/CU MM 150-450 L code = 756) MEAN PLATELET VOLUME (BEAKER) 9.8 fL 9.4-12.3 (test code = 754) NUCLEATED RED BLOOD CELLS 0 /100 WBC 0-0 (BEAKER) (test code = 413) NEUTROPHILS RELATIVE PERCENT 56 % (BEAKER) (test code = 429) LYMPHOCYTES RELATIVE PERCENT 30 % (BEAKER) (test code = 430) MONOCYTES RELATIVE PERCENT 10 % (BEAKER) (test code = 431) EOSINOPHILS RELATIVE PERCENT 3 % (BEAKER) (test code = 432) BASOPHILS RELATIVE PERCENT 0 % (BEAKER) (test code = 437) NEUTROPHILS ABSOLUTE COUNT 4.56 K/ L 1.56-6.13 (BEAKER) (test code = 670) LYMPHOCYTES ABSOLUTE COUNT 2.45 K/ L 1.18-3.74 (BEAKER) (test code = 414) MONOCYTES ABSOLUTE COUNT (BEAKER) 0.77 K/ L 0.24-0.36 H (test code = 415) EOSINOPHILS ABSOLUTE COUNT 0.21 K/ L 0.04-0.36 (BEAKER) (test code = 416) BASOPHILS ABSOLUTE COUNT (BEAKER) 0.02 K/ L 0.01-0.08 (test code = 417) IMMATURE GRANULOCYTES-RELATIVE 1 % 0-1 PERCENT (BEAKER) (test code = 2801) BASIC METABOLIC [id number] 06:23:00 Test Item Value Reference Range Interpretation Comments SODIUM (BEAKER) 136 meq/L 136-145 (test code = 381) POTASSIUM (BEAKER) 4.7 meq/L 3.5-5.1 (test code = 379) CHLORIDE (BEAKER) 99 meq/L 98-107 (test code = 382) CO2 (BEAKER) (test 25 meq/L 22-29 code = 355) BLOOD UREA NITROGEN 36 mg/dL 7-21 H (BEAKER) (test code = 354) CREATININE (BEAKER) 11.88 mg/dL 0.57-1.25 H (test code = 358) GLUCOSE RANDOM 144 mg/dL 70-105 H (BEAKER) (test code = 652) CALCIUM (BEAKER) 7.6 mg/dL 8.4-10.2 L (test code = 697) EGFR (BEAKER) (test 3 mL/min/1.73 ESTIMAT ED GFR IS code = 1092) sq m NOT ACCURATE CREATININE CLEARANCE IN PREDICTING GLOMERULAR FILTRATION RATE . ESTIMATED GFR I S NOT APPLICABLE FOR DIALYSIS PATIEN TS. [id number] 06:21:00 Test Item Value Reference Range Interpretation Comments PHOSPHORUS (BEAKER) (test code = 7.0 mg/dL 2.3-4.7 H 604) [id number] 06:21:00 Test Item Value Reference Range Interpretation Comments MAGNESIUM (BEAKER) (test code = 2.1 mg/dL 1.6-2.6 627) PROTHROMBIN [id number] 06:10:00 Test Item Value Reference Range Interpretation Comments PROTIME (BEAKER) (test code = 14.1 seconds 11.7-14.7 759) INR (BEAKER) (test code = 370) 1.1 <=5.9 RECOMMENDED COUMADIN/WARFARIN INR THERAPY RANGESSTANDARD DOSE: 2.0 - 3.0 Includes: PROPHYLAXIS forvenous thrombosis, systemic embolization; TREATMENT for venous thrombosis and/or pulmonary embolus.HIGH RISK: Target INR is 2.5-3.5 for patients with mechanical heart valves.BLOOD [id number] 06:00:00 Test Item Value Reference Range Interpretation Comments CULTURE (BEAKER) (test No growth in 5 days code = 1095) BLOOD [id number] 06:00:00 Test Item Value Reference Range Interpretation Comments CULTURE (BEAKER) (test No growth in 5 days code = 1095) POCT-GLUCOSE [id number] 22:46:00 Test Item Value Reference Range Interpretation Comments POC-GLUCOSE METER 166 mg/dL 70-110 H TESTED AT [place] [address] (BEAKER) (test code = [facility] 1538) [address] BODY FLUID CULTURE + GRAM [id number] 08:30:00 Test Item Value Reference Range Interpretation Comments CULTURE (BEAKER) (test code No growth = 1095) GRAM STAIN RESULT (BEAKER) No WBCs (test code = 1123) GRAM STAIN RESULT (BEAKER) No organisms seen (test code = 26948) POCT-GLUCOSE [id number] 08:09:00 Test Item Value Reference Range Interpretation Comments POC-GLUCOSE METER 138 mg/dL 70-110 H TESTED AT [place] [address] (BEAKER) (test code = [facility] 1538) [address] BASIC METABOLIC [id number] 08:04:00 Test Item Value Reference Range Interpretation Comments SODIUM (BEAKER) 135 meq/L 136-145 L (test code = 381) POTASSIUM (BEAKER) 4.4 meq/L 3.5-5.1 (test code = 379) CHLORIDE (BEAKER) 98 meq/L 98-107 (test code = 382) CO2 (BEAKER) (test 27 meq/L 22-29 code = 355) BLOOD UREA NITROGEN 25 mg/dL 7-21 H (BEAKER) (test code = 354) CREATININE (BEAKER) 9.45 mg/dL 0.57-1.25 H (test code = 358) GLUCOSE RANDOM 113 mg/dL 70-105 H (BEAKER) (test code = 652) CALCIUM (BEAKER) 7.7 mg/dL 8.4-10.2 L (test code = 697) EGFR (BEAKER) (test 4 mL/min/1.73 ESTIMAT ED GFR IS code = 1092) sq m NOT ACCURATE CREATININE CLEARANCE IN PREDICTING GLOMERULAR FILTRATION RATE . ESTIMATED GFR I S NOT APPLICABLE FOR DIALYSIS PATIEN TS. PROTHROMBIN [id number] 07:58:00 Test Item Value Reference Range Interpretation Comments PROTIME (BEAKER) (test code = 14.6 seconds 11.7-14.7 759) INR (BEAKER) (test code = 370) 1.1 <=5.9 RECOMMENDED COUMADIN/WARFARIN INR THERAPY RANGESSTANDARD DOSE: 2.0 - 3.0 Includes: PROPHYLAXIS forvenous thrombosis, systemic embolization; TREATMENT for venous thrombosis and/or pulmonary embolus.HIGH RISK: Target INR is 2.5-3.5 for patients with mechanical heart valves.[id number] 07:58:00 Test Item Value Reference Range Interpretation Comments PHOSPHORUS (BEAKER) (test code = 5.9 mg/dL 2.3-4.7 H 604) [id number] 07:58:00 Test Item Value Reference Range Interpretation Comments MAGNESIUM (BEAKER) (test code = 2.1 mg/dL 1.6-2.6 627) CBC W/PLT COUNT & AUTO [id number] 07:45:00 Test Item Value Reference Range Interpretation Comments WHITE BLOOD CELL COUNT (BEAKER) 8.2 K/ L 3.5-10.5 (test code = 775) RED BLOOD CELL COUNT (BEAKER) 2.55 M/ L 3.93-5.22 L (test code = 761) HEMOGLOBIN (BEAKER) (test code = 7.8 GM/DL 11.2-15.7 L 410) HEMATOCRIT (BEAKER) (test code = 24.2 % 34.1-44.9 L 411) MEAN CORPUSCULAR VOLUME (BEAKER) 94.9 fL 79.4-94.8 H (test code = 753) MEAN CORPUSCULAR HEMOGLOBIN 30.6 pg 25.6-32.2 (BEAKER) (test code = 751) MEAN CORPUSCULAR HEMOGLOBIN CONC 32.2 GM/DL 32.2-35.5 (BEAKER) (test code = 752) RED CELL DISTRIBUTION WIDTH 16.0 % 11.7-14.4 H (BEAKER) (test code = 412) PLATELET COUNT (BEAKER) (test 137 K/CU MM 150-450 L code = 756) MEAN PLATELET VOLUME (BEAKER) 9.8 fL 9.4-12.3 (test code = 754) NUCLEATED RED BLOOD CELLS 0 /100 WBC 0-0 (BEAKER) (test code = 413) NEUTROPHILS RELATIVE PERCENT 66 % (BEAKER) (test code = 429) LYMPHOCYTES RELATIVE PERCENT 22 % (BEAKER) (test code = 430) MONOCYTES RELATIVE PERCENT 8 % (BEAKER) (test code = 431) EOSINOPHILS RELATIVE PERCENT 3 % (BEAKER) (test code = 432) BASOPHILS RELATIVE PERCENT 0 % (BEAKER) (test code = 437) NEUTROPHILS ABSOLUTE COUNT 5.42 K/ L 1.56-6.13 (BEAKER) (test code = 670) LYMPHOCYTES ABSOLUTE COUNT 1.81 K/ L 1.18-3.74 (BEAKER) (test code = 414) MONOCYTES ABSOLUTE COUNT (BEAKER) 0.68 K/ L 0.24-0.36 H (test code = 415) EOSINOPHILS ABSOLUTE COUNT 0.21 K/ L 0.04-0.36 (BEAKER) (test code = 416) BASOPHILS ABSOLUTE COUNT (BEAKER) 0.01 K/ L 0.01-0.08 (test code = 417) IMMATURE GRANULOCYTES-RELATIVE 1 % 0-1 PERCENT (BEAKER) (test code = 2801) POCT-GLUCOSE [id number] 22:29:00 Test Item Value Reference Range Interpretation Comments POC-GLUCOSE METER 177 mg/dL 70-110 H TESTED AT [facility] 6720 ([facility]) (test code = [facility] 1538) [address] ANG, NON-TUNNELED CATH >5 Y.O. [id number] 17:29:00Dialysis 05/23Reason for exam:->esrd needs access stat for dialysisIs the patient ?->NoWhen was patient's last menstrual cycle?->02/04/18INAL REPORT History: Renal failure, need for hemodialysis access Findings: Following informed written consent, the patient's right cervical region was prepped and draped in theusual sterile manner and maximum sterile barrier techniques were utilized. 2% lidocaine was given locally for anesthesia. No conscious sedation was administered. Using ultrasound guidance and micropuncture set, access was gained to the right internal jugular vein. A J- wire was advanced through the micropuncture sheath and into the superior vena cava. The tract was dilated and a 15 cm Schon nontunneled catheter was placed over the wire and into position under fluoroscopic guidance. There were no immed iate complications. Findings: Single sonographic image of the right internal jugular vein prior to catheter placement demonstrates a patent and compressible vein without evidence for thrombosis. This ultrasound image was obtained and archived on PACs. Spot radiograph of the chest following catheter placement demonstrates the right internal jugular nontunneled catheter to lie in expected position withits tip over the superior vena cava. No pneumothorax. Impression: 1. Successful uncomplicated placement of a right internal jugular nontunneled catheter. Fluoroscopy time: 0.5 minsEstimated dose reported as (Ka,r): 7.2 mGy Signed: Sheba Schuster Verified Date/Time: 02/13/2018 17:29:57 Reading Location: [address] Body Reading Room POCT-GLUCOSE [id number] 16:47:00 Test Item Value Reference Range Interpretation Comments POC-GLUCOSE METER 184 mg/dL 70-110 H TESTED AT [place] [address] ([facility]) (test code = [facility] 1538) [address] RAD, CHEST, 1 VIEW, NON [id number] 11:34:00Dialysis 05/23Reason for exam:- >fluid overloadFINAL REPORT Chest one view INDICATION: Fluid overload COMPARISON: 02/09/2018 IMPRESSION: Right jugular line extends to the SVC/RA junction. The cardiac silhouette is enlarged. Mediastinal prominence is stable. There is pulmonary vascular congestion with interstitial and perihilar edema. Basilar airspace opacities may reflect atelectasis and edema. Pneumonitis should be excludedclinically. The left costophrenic angle is obscured. No acute osseous abnormality or pneumothorax isseen. Signed: Stefania Hewitt MDReport Verified Date/Time: 02/13/2018 11:34:05 Reading Location: [facility] Radiology Reading Room POCT-GLUCOSE [id number] 10:40:00 Test Item Value Reference Range Interpretation Comments POC-GLUCOSE METER 166 mg/dL 70-110 H TESTED AT [facility] 6720 (BEAKER) (test code = [facility] [place] 1538) [address] BASIC METABOLIC [id number] 08:41:00 Test Item Value Reference Range Interpretation Comments SODIUM (BEAKER) 136 meq/L 136-145 (test code = 381) POTASSIUM (BEAKER) 6.2 meq/L 3.5-5.1 HH (test code = 379) CHLORIDE (BEAKER) 99 meq/L 98-107 (test code = 382) CO2 (BEAKER) (test 22 meq/L 22-29 code = 355) BLOOD UREA NITROGEN 49 mg/dL 7-21 H (BEAKER) (test code = 354) CREATININE (BEAKER) 16.28 mg/dL 0.57-1.25 H (test code = 358) GLUCOSE RANDOM 123 mg/dL 70-105 H (BEAKER) (test code = 652) CALCIUM (BEAKER) 7.0 mg/dL 8.4-10.2 L (test code = 697) EGFR (BEAKER) (test 2 mL/min/1.73 ESTIMAT ED GFR IS code = 1092) sq m NOT ACCURATE CREATININE CLEARANCE IN PREDICTING GLOMERULAR FILTRATION RATE . ESTIMATED GFR I S NOT APPLICABLE FOR DIALYSIS PATIEN TS. POCT-GLUCOSE [id number] 07:40:00 Test Item Value Reference Range Interpretation Comments POC-GLUCOSE METER 137 mg/dL 70-110 H TESTED AT [facility] 6720 (BEAKER) (test code = [facility] 1538) [id number] BASIC METABOLIC [id number] 06:55:00 Test Item Value Reference Range Interpretation Comments SODIUM (BEAKER) 136 meq/L 136-145 (test code = 381) POTASSIUM (BEAKER) 6.0 meq/L 3.5-5.1 HH (test code = 379) CHLORIDE (BEAKER) 101 meq/L 98-107 (test code = 382) CO2 (BEAKER) (test 21 meq/L 22-29 L code = 355) BLOOD UREA NITROGEN 48 mg/dL 7-21 H (BEAKER) (test code = 354) CREATININE (BEAKER) 16.38 mg/dL 0.57-1.25 H (test code = 358) GLUCOSE RANDOM 168 mg/dL 70-105 H (BEAKER) (test code = 652) CALCIUM (BEAKER) 6.9 mg/dL 8.4-10.2 L (test code = 697) EGFR (BEAKER) (test 2 mL/min/1.73 ESTIMAT ED GFR IS code = 1092) sq m NOT ACCURATE CREATININE CLEARANCE IN PREDICTING GLOMERULAR FILTRATION RATE . ESTIMATED GFR I S NOT APPLICABLE FOR DIALYSIS PATIEN TS. POCT-GLUCOSE [id number] 06:28:00 Test Item Value Reference Range Interpretation Comments POC-GLUCOSE METER 153 mg/dL 70-110 H TESTED AT [facility] 6720 (BEAKER) (test code = [facility] [place] 1538) [id number] BASIC METABOLIC [id number] 04:30:00 Test Item Value Reference Range Interpretation Comments SODIUM (BEAKER) 135 meq/L 136-145 L (test code = 381) POTASSIUM (BEAKER) 6.8 meq/L 3.5-5.1 HH (test code = 379) CHLORIDE (BEAKER) 99 meq/L 98-107 (test code = 382) CO2 (BEAKER) (test 21 meq/L 22-29 L code = 355) BLOOD UREA NITROGEN 48 mg/dL 7-21 H (BEAKER) (test code = 354) CREATININE (BEAKER) 15.84 mg/dL 0.57-1.25 H (test code = 358) GLUCOSE RANDOM 150 mg/dL 70-105 H (BEAKER) (test code = 652) CALCIUM (BEAKER) 6.9 mg/dL 8.4-10.2 L (test code = 697) EGFR (BEAKER) (test 2 mL/min/1.73 ESTIMAT ED GFR IS code = 1092) sq m NOT ACCURATE CREATININE CLEARANCE IN PREDICTING GLOMERULAR FILTRATION RATE . ESTIMATED GFR I S NOT APPLICABLE FOR DIALYSIS PATIEN TS. [id number] 04:28:00 Test Item Value Reference Range Interpretation Comments PHOSPHORUS (BEAKER) (test code = 7.3 mg/dL 2.3-4.7 H 604) [id number] 04:28:00 Test Item Value Reference Range Interpretation Comments MAGNESIUM (BEAKER) (test code = 2.2 mg/dL 1.6-2.6 627) PROTHROMBIN [id number] 03:51:00 Test Item Value Reference Range Interpretation Comments PROTIME (BEAKER) (test code = 15.1 seconds 11.7-14.7 H 759) INR (BEAKER) (test code = 370) 1.2 <=5.9 RECOMMENDED COUMADIN/WARFARIN INR THERAPY RANGESSTANDARD DOSE: 2.0 - 3.0 Includes: PROPHYLAXIS forvenous thrombosis, systemic embolization; TREATMENT for venous thrombosis and/or pulmonary embolus.HIGH RISK: Target INR is 2.5-3.5 for patients with mechanical heart valves.CBC W/PLT COUNT & AUTO DIFFERENTIAL 2018-02-13 03:44:00 Test Item Value Reference Range Interpretation Comments WHITE BLOOD CELL COUNT (BEAKER) 9.6 K/ L 3.5-10.5 (test code = 775) RED BLOOD CELL COUNT (BEAKER) 2.94 M/ L 3.93-5.22 L (test code = 761) HEMOGLOBIN (BEAKER) (test code = 8.7 GM/DL 11.2-15.7 L 410) HEMATOCRIT (BEAKER) (test code = 27.6 % 34.1-44.9 L 411) MEAN CORPUSCULAR VOLUME (BEAKER) 93.9 fL 79.4-94.8 (test code = 753) MEAN CORPUSCULAR HEMOGLOBIN 29.6 pg 25.6-32.2 (BEAKER) (test code = 751) MEAN CORPUSCULAR HEMOGLOBIN CONC 31.5 GM/DL 32.2-35.5 L (BEAKER) (test code = 752) RED CELL DISTRIBUTION WIDTH 16.2 % 11.7-14.4 H (BEAKER) (test code = 412) PLATELET COUNT (BEAKER) (test 127 K/CU MM 150-450 L code = 756) MEAN PLATELET VOLUME (BEAKER) 9.2 fL 9.4-12.3 L (test code = 754) NUCLEATED RED BLOOD CELLS 0 /100 WBC 0-0 (BEAKER) (test code = 413) NEUTROPHILS RELATIVE PERCENT 77 % (BEAKER) (test code = 429) LYMPHOCYTES RELATIVE PERCENT 18 % (BEAKER) (test code = 430) MONOCYTES RELATIVE PERCENT 3 % (BEAKER) (test code = 431) EOSINOPHILS RELATIVE PERCENT 0 % (BEAKER) (test code = 432) BASOPHILS RELATIVE PERCENT 0 % (BEAKER) (test code = 437) NEUTROPHILS ABSOLUTE COUNT 7.40 K/ L 1.56-6.13 H (BEAKER) (test code = 670) LYMPHOCYTES ABSOLUTE COUNT 1.76 K/ L 1.18-3.74 (BEAKER) (test code = 414) MONOCYTES ABSOLUTE COUNT (BEAKER) 0.31 K/ L 0.24-0.36 (test code = 415) EOSINOPHILS ABSOLUTE COUNT 0.00 K/ L 0.04-0.36 L (BEAKER) (test code = 416) BASOPHILS ABSOLUTE COUNT (BEAKER) 0.02 K/ L 0.01-0.08 (test code = 417) IMMATURE GRANULOCYTES-RELATIVE 1 % 0-1 PERCENT (BEAKER) (test code = 2801) POCT-GLUCOSE [id number] 22:22:00 Test Item Value Reference Range Interpretation Comments POC-GLUCOSE METER 210 mg/dL 70-110 H TESTED AT [place] [address] ([facility]) ([facility] [address] POCT-GLUCOSE [id number] 15:24:00 Test Item Value Reference Range Interpretation Comments POC-GLUCOSE METER 228 mg/dL 70-110 H TESTED AT [place] [address] ([facility]) (test code = [facility] 1538) [id number] CALCIUM, [id number] 13:32:00 Test Item Value Reference Range Interpretation Comments CALCIUM IONIZED (BEAKER) (test 0.81 mmol/L 1.12-1.27 L code = 698) PH, BLOOD (AKER) (test code = 7.35 1810) GLUCOSE-STAT [id number] 13:32:00 Test Item Value Reference Range Interpretation Comments GLUCOSE RANDOM (BEAKER) (test code 112 mg/dL 70-110 H = 652) HGB/HCT (H&H) - STAT [id number] 13:32:00 Test Item Value Reference Range Interpretation Comments HEMOGLOBIN (BEAKER) (test code = 6.9 g/dL 12.0-15.0 L 410) HEMATOCRIT (BEAKER) (test code = 20.0 % 36.0-45.0 L 411) SODIUM NA-STAT [id number] 13:30:00 Test Item Value Reference Range Interpretation Comments SODIUM (BEAKER) (test code = 381) 139 meq/L 135-148 POTASSIUM-STAT [id number] 13:30:00 Test Item Value Reference Range Interpretation Comments POTASSIUM (BEAKER) (test code = 4.7 meq/L 3.6-5.5 379) POCT-GLUCOSE [id number] 07:20:00 Test Item Value Reference Range Interpretation Comments POC-GLUCOSE METER 157 mg/dL 70-110 H TESTED AT [facility] 6720 (BEAKER) (test code = [place] 1538) [address] BASIC METABOLIC [id number] 04:11:00 Test Item Value Reference Range Interpretation Comments SODIUM (BEAKER) 140 meq/L 136-145 (test code = 381) POTASSIUM (BEAKER) 3.8 meq/L 3.5-5.1 (test code = 379) CHLORIDE (BEAKER) 100 meq/L 98-107 (test code = 382) CO2 (BEAKER) (test 22 meq/L 22-29 code = 355) BLOOD UREA NITROGEN 37 mg/dL 7-21 H (BEAKER) (test code = 354) CREATININE (BEAKER) 14.85 mg/dL 0.57-1.25 H (test code = 358) GLUCOSE RANDOM 198 mg/dL 70-105 H (BEAKER) (test code = 652) CALCIUM (BEAKER) 7.6 mg/dL 8.4-10.2 L (test code = 697) EGFR (BEAKER) (test 3 mL/min/1.73 ESTIMAT ED GFR IS code = 1092) sq m NOT ACCURATE CREATININE CLEARANCE IN PREDICTING GLOMERULAR FILTRATION RATE . ESTIMATED GFR I S NOT APPLICABLE FOR DIALYSIS PATIEN TS. [id number] 04:08:00 Test Item Value Reference Range Interpretation Comments PHOSPHORUS (BEAKER) (test code = 7.3 mg/dL 2.3-4.7 H 604) [id number] 04:08:00 Test Item Value Reference Range Interpretation Comments MAGNESIUM (BEAKER) (test code = 2.1 mg/dL 1.6-2.6 627) HEPATIC FUNCTION [id number] 04:08:00 Test Item Value Reference Range Interpretation Comments TOTAL PROTEIN (BEAKER) (test code = 7.7 gm/dL 6.0-8.3 770) ALBUMIN (BEAKER) (test code = 1145) 3.4 g/dL 3.5-5.0 L BILIRUBIN TOTAL (BEAKER) (test code 0.5 mg/dL 0.2-1.2 = 377) BILIRUBIN DIRECT (BEAKER) (test 0.1 mg/dL 0.1-0.5 code = 706) ALKALINE PHOSPHATASE (BEAKER) (test 90 U/L 40-150 code = 346) AST (SGOT) (BEAKER) (test code = 11 U/L 5-34 353) ALT (SGPT) (BEAKER) (test code = 7 U/L 6-55 347) PROTHROMBIN [id number] 03:56:00 Test Item Value Reference Range Interpretation Comments PROTIME (BEAKER) (test code = 13.6 seconds 11.7-14.7 759) INR (BEAKER) (test code = 370) 1.0 <=5.9 RECOMMENDED COUMADIN/WARFARIN INR THERAPY RANGESSTANDARD DOSE: 2.0 - 3.0 Includes: PROPHYLAXIS forvenous thrombosis, systemic embolization; TREATMENT for venous thrombosis and/or pulmonary embolus.HIGH RISK: Target INR is 2.5-3.5 for patients with mechanical heart valves.CBC W/PLT COUNT & AUTO DIFFERENTIAL 2018-02-12 03:50:00 Test Item Value Reference Range Interpretation Comments WHITE BLOOD CELL COUNT (BEAKER) 6.8 K/ L 3.5-10.5 (test code = 775) RED BLOOD CELL COUNT (BEAKER) 2.37 M/ L 3.93-5.22 L (test code = 761) HEMOGLOBIN (BEAKER) (test code = 7.3 GM/DL 11.2-15.7 L 410) HEMATOCRIT (BEAKER) (test code = 22.5 % 34.1-44.9 L 411) MEAN CORPUSCULAR VOLUME (BEAKER) 94.9 fL 79.4-94.8 H (test code = 753) MEAN CORPUSCULAR HEMOGLOBIN 30.8 pg 25.6-32.2 (BEAKER) (test code = 751) MEAN CORPUSCULAR HEMOGLOBIN CONC 32.4 GM/DL 32.2-35.5 (BEAKER) (test code = 752) RED CELL DISTRIBUTION WIDTH 15.3 % 11.7-14.4 H (BEAKER) (test code = 412) PLATELET COUNT (BEAKER) (test 139 K/CU MM 150-450 L code = 756) MEAN PLATELET VOLUME (BEAKER) 8.7 fL 9.4-12.3 L (test code = 754) NUCLEATED RED BLOOD CELLS 1 /100 WBC 0-0 H (BEAKER) (test code = 413) NEUTROPHILS RELATIVE PERCENT 51 % (BEAKER) (test code = 429) LYMPHOCYTES RELATIVE PERCENT 37 % (BEAKER) (test code = 430) MONOCYTES RELATIVE PERCENT 7 % (BEAKER) (test code = 431) EOSINOPHILS RELATIVE PERCENT 3 % (BEAKER) (test code = 432) BASOPHILS RELATIVE PERCENT 0 % (BEAKER) (test code = 437) NEUTROPHILS ABSOLUTE COUNT 3.46 K/ L 1.56-6.13 (BEAKER) (test code = 670) LYMPHOCYTES ABSOLUTE COUNT 2.53 K/ L 1.18-3.74 (BEAKER) (test code = 414) MONOCYTES ABSOLUTE COUNT (BEAKER) 0.49 K/ L 0.24-0.36 H (test code = 415) EOSINOPHILS ABSOLUTE COUNT 0.19 K/ L 0.04-0.36 (BEAKER) (test code = 416) BASOPHILS ABSOLUTE COUNT (BEAKER) 0.02 K/ L 0.01-0.08 (test code = 417) IMMATURE GRANULOCYTES-RELATIVE 2 % 0-1 H PERCENT (BEAKER) (test code = 2801) POCT-GLUCOSE [id number] 21:27:00 Test Item Value Reference Range Interpretation Comments POC-GLUCOSE METER 188 mg/dL 70-110 H TESTED AT [place] [address] ([facility]) (test code = [facility] 1538) [address] POCT-GLUCOSE [id number] 17:16:00 Test Item Value Reference Range Interpretation Comments POC-GLUCOSE METER 174 mg/dL 70-110 H TESTED AT [place] [address] ([facility]) (test code = [facility] 1538) [address] POCT-GLUCOSE [id number] 12:50:00 Test Item Value Reference Range Interpretation Comments POC-GLUCOSE METER 189 mg/dL 70-110 H TESTED AT [place] [address] ([facility]) (test code = [facility] 1538) [address] HCG, QUANTITATIVE, [id number] 12:41:00 Test Item Value Reference Range Interpretation Comments GONADOTROPIN, CHORIONIC (HCG) QUANT 2 mIU/mL 0-10 (BEAKER) (test code = 649) Non- Females: <10 mIU/mL Females: Gestation Age Reference Range(mIU/mL) 0.2-1 Week 5-50 1-2 Weeks 50-500 2-3 Weeks 100-5,000 3-4Weeks 500-10,000 4-5 Weeks 1,000-50,000 5-6 Weeks 10,000-100,000 6-8 Weeks 15,000-200,000 2-3 Months 10,000-100,000BODY FLUID CELL COUNT WITH [id number] 11:52:00 Test Item Value Reference Range Interpretation Comments APPEARANCE FLUID (BEAKER) (test Clear Clear code = 510) COLOR FLUID (BEAKER) (test code = Colorless Colorless, Straw 511) RBC FLUID (BEAKER) (test code = 1 /cu mm <=1 513) ADJUSTED WBC FLUID (BEAKER) (test 5 /cu mm <=5 code = 1691) LINING CELLS (BEAKER) (test code = 0 /cu mm <=1 1590) NEUTROPHILS FLUID (BEAKER) (test 7 % code = 1656) LYMPHS FLUID (BEAKER) (test code = 20 % 488) MONO/MACROPHAGE FLUID (BEAKER) 73 % (test code = 489) EOSINOPHILS FLUID (BEAKER) (test 0 % code = 491) BASO FLUID (BEAKER) (test code = 0 % 492) CONTAINER BODY FLUID (BEAKER) EDTA Tube (test code = 2873) POCT-GLUCOSE [id number] 09:51:00 Test Item Value Reference Range Interpretation Comments POC-GLUCOSE METER 115 mg/dL 70-110 H TESTED AT [facility] 6720 (BEAKER) (test code = [place] 1538) [address] [id number] 09:31:00 Test Item Value Reference Range Interpretation Comments FERRITIN (BEAKER) 417 ng/mL 5-275 H This is a corrected (test code = 361) result. Pr evious result was 478 ng/mL on 02/11/2018 at 0452 CDT POCT-GLUCOSE [id number] 05:07:00 Test Item Value Reference Range Interpretation Comments POC-GLUCOSE METER 205 mg/dL 70-110 H TESTED AT [facility] 6720 (BEAKER) (test code = [place] 1538) [address] IRON, TIBC, % SAT. (WITHOUT FERRITIN)2018-02-11 04:32:00 Test Item Value Reference Range Interpretation Comments IRON (BEAKER) (test code = 547) 66 ug/dL 40-160 TOTAL IRON BINDING CAPACITY 244 ug/dL 250-450 L (BEAKER) (test code = 769) IRON % SATURATION (2) (BEAKER) 27 % 20-55 (test code = 2590) BASIC METABOLIC [id number] 03:57:00 Test Item Value Reference Range Interpretation Comments SODIUM (BEAKER) 138 meq/L 136-145 (test code = 381) POTASSIUM (BEAKER) 4.0 meq/L 3.5-5.1 (test code = 379) CHLORIDE (BEAKER) 100 meq/L 98-107 (test code = 382) CO2 (BEAKER) (test 20 meq/L 22-29 L code = 355) BLOOD UREA NITROGEN 38 mg/dL 7-21 H (BEAKER) (test code = 354) CREATININE (BEAKER) 15.33 mg/dL 0.57-1.25 H (test code = 358) GLUCOSE RANDOM 187 mg/dL 70-105 H (BEAKER) (test code = 652) CALCIUM (BEAKER) 7.3 mg/dL 8.4-10.2 L (test code = 697) EGFR (BEAKER) (test 3 mL/min/1.73 ESTIMAT ED GFR IS code = 1092) sq m NOT ACCURATE CREATININE CLEARANCE IN PREDICTING GLOMERULAR FILTRATION RATE . ESTIMATED GFR I S NOT APPLICABLE FOR DIALYSIS PATIEN TS. [id number] 03:56:00 Test Item Value Reference Range Interpretation Comments PHOSPHORUS (BEAKER) (test code = 8.0 mg/dL 2.3-4.7 H 604) [id number] 03:56:00 Test Item Value Reference Range Interpretation Comments MAGNESIUM (BEAKER) (test code = 2.2 mg/dL 1.6-2.6 627) HEPATIC FUNCTION [id number] 03:56:00 Test Item Value Reference Range Interpretation Comments TOTAL PROTEIN (BEAKER) (test code = 7.8 gm/dL 6.0-8.3 770) ALBUMIN (BEAKER) (test code = 1145) 3.4 g/dL 3.5-5.0 L BILIRUBIN TOTAL (BEAKER) (test code 0.6 mg/dL 0.2-1.2 = 377) BILIRUBIN DIRECT (BEAKER) (test 0.2 mg/dL 0.1-0.5 code = 706) ALKALINE PHOSPHATASE (BEAKER) (test 85 U/L 40-150 code = 346) AST (SGOT) (BEAKER) (test code = 10 U/L 5-34 353) ALT (SGPT) (BEAKER) (test code = 6 U/L 6-55 347) Specimen slightly lipemicCBC W/PLT COUNT & AUTO [id number] 03:47:00 Test Item Value Reference Range Interpretation Comments WHITE BLOOD CELL COUNT (BEAKER) 6.5 K/ L 3.5-10.5 (test code = 775) RED BLOOD CELL COUNT (BEAKER) 2.29 M/ L 3.93-5.22 L (test code = 761) HEMOGLOBIN (BEAKER) (test code = 7.1 GM/DL 11.2-15.7 L 410) HEMATOCRIT (BEAKER) (test code = 21.8 % 34.1-44.9 L 411) MEAN CORPUSCULAR VOLUME (BEAKER) 95.2 fL 79.4-94.8 H (test code = 753) MEAN CORPUSCULAR HEMOGLOBIN 31.0 pg 25.6-32.2 (BEAKER) (test code = 751) MEAN CORPUSCULAR HEMOGLOBIN CONC 32.6 GM/DL 32.2-35.5 (BEAKER) (test code = 752) RED CELL DISTRIBUTION WIDTH 15.1 % 11.7-14.4 H (BEAKER) (test code = 412) PLATELET COUNT (BEAKER) (test 135 K/CU MM 150-450 L code = 756) MEAN PLATELET VOLUME (BEAKER) 8.7 fL 9.4-12.3 L (test code = 754) NUCLEATED RED BLOOD CELLS 1 /100 WBC 0-0 H (BEAKER) (test code = 413) NEUTROPHILS RELATIVE PERCENT 50 % (BEAKER) (test code = 429) LYMPHOCYTES RELATIVE PERCENT 37 % (BEAKER) (test code = 430) MONOCYTES RELATIVE PERCENT 7 % (BEAKER) (test code = 431) EOSINOPHILS RELATIVE PERCENT 3 % (BEAKER) (test code = 432) BASOPHILS RELATIVE PERCENT 0 % (BEAKER) (test code = 437) NEUTROPHILS ABSOLUTE COUNT 3.28 K/ L 1.56-6.13 (BEAKER) (test code = 670) LYMPHOCYTES ABSOLUTE COUNT 2.43 K/ L 1.18-3.74 (BEAKER) (test code = 414) MONOCYTES ABSOLUTE COUNT (BEAKER) 0.47 K/ L 0.24-0.36 H (test code = 415) EOSINOPHILS ABSOLUTE COUNT 0.19 K/ L 0.04-0.36 (BEAKER) (test code = 416) BASOPHILS ABSOLUTE COUNT (BEAKER) 0.02 K/ L 0.01-0.08 (test code = 417) IMMATURE GRANULOCYTES-RELATIVE 2 % 0-1 H PERCENT (BEAKER) (test code = 2801) OCCULT BLOOD, [id number] 22:50:00 Test Item Value Reference Range Interpretation Comments FECAL OCCULT BLOOD (BEAKER) (test Negative Negative code = 618) POCT-GLUCOSE [id number] 21:21:00 Test Item Value Reference Range Interpretation Comments POC-GLUCOSE METER 248 mg/dL 70-110 H TESTED AT [facility] 67[facility] (test code = [place] [facility] 1538) [address] POCT-GLUCOSE [id number] 17:51:00 Test Item Value Reference Range Interpretation Comments POC-GLUCOSE METER 187 mg/dL 70-110 H TESTED AT [facility] 67[facility] (test code = [place] 1538) [address] POCT-GLUCOSE [id number] 17:51:00 Test Item Value Reference Range Interpretation Comments POC-GLUCOSE METER 213 mg/dL 70-110 H TESTED AT [place] [id number] [facility] (test code = [facility] 1538) [address] POCT-GLUCOSE [id number] 14:17:00 Test Item Value Reference Range Interpretation Comments POC-GLUCOSE METER 301 mg/dL 70-110 H Notified R William MA/TESTED (BEAKER) (test code = AT [facility] 67[address] [facility] 1538) [facility] [address] VITAMIN B12 AND [id number] 13:13:00 Test Item Value Reference Range Interpretation Comments VITAMIN B12 (BEAKER) (test code = 267 pg/mL 213-816 774) FOLATE (BEAKER) (test code = 362) 14.4 ng/mL >=7.0 POCT-GLUCOSE [id number] 12:52:00 Test Item Value Reference Range Interpretation Comments POC-GLUCOSE METER 221 mg/dL 70-110 H TESTED AT [facility] 6720 (BEAKER) (test code = [place] 1538) [address] HEMOGLOBIN [id number] 12:46:00 Test Item Value Reference Range Interpretation Comments HEMOGLOBIN A1C (BEAKER) (test code = 3.8 % 4.3-6.1 L 368) HEMOGLOBIN AND [id number] 12:04:00 Test Item Value Reference Range Interpretation Comments HEMOGLOBIN (BEAKER) (test code = 7.9 GM/DL 11.2-15.7 L 410) HEMATOCRIT (BEAKER) (test code = 24.1 % 34.1-44.9 L 411) CBC W/PLT COUNT & AUTO [id number] 10:51:00 Test Item Value Reference Range Interpretation Comments WHITE BLOOD CELL COUNT (BEAKER) 6.7 K/ L 3.5-10.5 (test code = 775) RED BLOOD CELL COUNT (BEAKER) 2.16 M/ L 3.93-5.22 L (test code = 761) HEMOGLOBIN (BEAKER) (test code = 6.8 GM/DL 11.2-15.7 L 410) HEMATOCRIT (BEAKER) (test code = 20.9 % 34.1-44.9 L 411) MEAN CORPUSCULAR VOLUME (BEAKER) 96.8 fL 79.4-94.8 H (test code = 753) MEAN CORPUSCULAR HEMOGLOBIN 31.5 pg 25.6-32.2 (BEAKER) (test code = 751) MEAN CORPUSCULAR HEMOGLOBIN CONC 32.5 GM/DL 32.2-35.5 (BEAKER) (test code = 752) RED CELL DISTRIBUTION WIDTH 15.0 % 11.7-14.4 H (BEAKER) (test code = 412) PLATELET COUNT (BEAKER) (test 118 K/CU MM 150-450 L code = 756) MEAN PLATELET VOLUME (BEAKER) 9.3 fL 9.4-12.3 L (test code = 754) NUCLEATED RED BLOOD CELLS 1 /100 WBC 0-0 H (BEAKER) (test code = 413) (CELLAVISION MANUAL DIFF)2018-02-10 10:51:00 Test Item Value Reference Range Interpretation Comments NEUTROPHILS - REL 55 % (CELLAVISION)(BEAKER) (test code = 2816) LYMPHOCYTES - REL 34 % (CELLAVISION)(BEAKER) (test code = 2817) MONOCYTES - REL 3 % (CELLAVISION)(BEAKER) (test code = 2818) EOSINOPHILS - REL 5 % (CELLAVISION)(BEAKER) (test code = 2819) BANDS - REL (CELLAVISION)(BEAKER) 3 % 0-10 (test code = 2826) NEUTROPHILS - ABS 3.69 K/ul 1.56-6.13 (CELLAVISION)(BEAKER) (test code = 2830) LYMPHOCYTES - ABS 2.28 K/ul 1.18-3.74 (CELLAVISION)(BEAKER) (test code = 2831) MONOCYTES - ABS 0.20 K/uL 0.24-0.36 L (CELLAVISION)(BEAKER) (test code = 2832) EOSINOPHILS - ABS 0.34 K/uL 0.04-0.36 (CELLAVISION)(BEAKER) (test code = 2834) BANDS - ABS (CELLAVISION)(BEAKER) 0.20 K/uL 0.00-0.80 (test code = 2840) TOTAL COUNTED (BEAKER) (test code 100 = 1351) WBC MORPHOLOGY (BEAKER) (test Normal code = 487) PLT MORPHOLOGY (BEAKER) (test Normal code = 486) POLYCHROMATOPHILLIC RBCS(BEAKER) 2+ moderate (test code = 478) ARTIFACT (CELLAVISION)(BEAKER) Present (test code = 3432) PLATELET CONCENTRATION Decreased (CELLAVISION)(BEAKER) (test code = 3438) Received comment: User comments: Slide comments:T4, [id number] 07:02:00 Test Item Value Reference Range Interpretation Comments FREE T4 (BEAKER) (test code = 655) 0.75 ng/dL 0.70-1.48 [id number] 06:36:00 Test Item Value Reference Range Interpretation Comments PHOSPHORUS (BEAKER) (test code = 9.1 mg/dL 2.3-4.7 HH 604) TSH/FREE T4 IF [id number] 06:23:00 Test Item Value Reference Range Interpretation Comments THYROID STIMULATING HORMONE 13.77 uIU/mL 0.35-4.94 H (BEAKER) (test code = 772) BASIC METABOLIC [id number] 06:17:00 Test Item Value Reference Range Interpretation Comments SODIUM (BEAKER) 140 meq/L 136-145 (test code = 381) POTASSIUM (BEAKER) 4.8 meq/L 3.5-5.1 (test code = 379) CHLORIDE (BEAKER) 104 meq/L 98-107 (test code = 382) CO2 (BEAKER) (test 18 meq/L 22-29 L code = 355) BLOOD UREA NITROGEN 44 mg/dL 7-21 H (BEAKER) (test code = 354) CREATININE (BEAKER) 16.68 mg/dL 0.57-1.25 H (test code = 358) GLUCOSE RANDOM 115 mg/dL 70-105 H (BEAKER) (test code = 652) CALCIUM (BEAKER) 7.1 mg/dL 8.4-10.2 L (test code = 697) EGFR (BEAKER) (test 2 mL/min/1.73 ESTIMAT ED GFR IS code = 1092) sq m NOT ACCURATE CREATININE CLEARANCE IN PREDICTING GLOMERULAR FILTRATION RATE . ESTIMATED GFR I S NOT APPLICABLE FOR DIALYSIS PATIEN TS. LIPID [id number] 06:17:00 Test Item Value Reference Range Interpretation Comments TRIGLYCERIDES (BEAKER) (test code = 726 mg/dL 540) CHOLESTEROL (BEAKER) (test code = 211 mg/dL 631) HDL CHOLESTEROL (BEAKER) (test code 21 mg/dL = 976) Calculated LDL not valid if triglyceride >400 mg/dLTriglyceride Reference Range: Low Risk <150 Borderline 150-199 High Risk 200-499 Very High Risk >=500Cholesterol Reference Range: Low Risk <200 Borderline 200-239 High Risk >240HDL Cholesterol Reference Range: Low Risk >=60 High Risk <40LDL Cholesterol ReferenceRange: Optimal <100 Near Optimal 100-129 Borderline 130-159 High 160-189 Very High >=190 Specimen slightly [id number] 06:13:00 Test Item Value Reference Range Interpretation Comments MAGNESIUM (BEAKER) (test code = 2.4 mg/dL 1.6-2.6 627) HEPATIC FUNCTION [id number] 06:13:00 Test Item Value Reference Range Interpretation Comments TOTAL PROTEIN (BEAKER) (test code = 7.4 gm/dL 6.0-8.3 770) ALBUMIN (BEAKER) (test code = 1145) 3.2 g/dL 3.5-5.0 L BILIRUBIN TOTAL (BEAKER) (test code 0.5 mg/dL 0.2-1.2 = 377) BILIRUBIN DIRECT (BEAKER) (test 0.1 mg/dL 0.1-0.5 code = 706) ALKALINE PHOSPHATASE (BEAKER) (test 73 U/L 40-150 code = 346) AST (SGOT) (BEAKER) (test code = 11 U/L 5-34 353) ALT (SGPT) (BEAKER) (test code = 8 U/L 6-55 347) Specimen slightly lipemicCREATINE KINASE (CK), TOTAL AND [id number] 06:13:00 Test Item Value Reference Range Interpretation Comments CREATINE KINASE TOTAL (BEAKER) 139 U/L 29-200 (test code = 380) CREATINE KINASE-MB (BEAKER) (test 1.2 ng/mL 0.0-6.6 code = 750) CREATINE KINASE-MB INDEX (BEAKER) 0.9 % (test code = 395) CK-MB Reference Range:<6.7 Normal6.7-10.0 Borderline>10.0 AbnormalC-REACTIVE [id number] 06:13:00 Test Item Value Reference Range Interpretation Comments C-REACTIVE PROTEIN (BEAKER) (test 0.61 mg/dL 0.00-0.50 H code = 676) TROPONIN [id number] 06:07:00 Test Item Value Reference Range Interpretation Comments TROPONIN I (BEAKER) (test code = 397) < ng/mL 0.00-0.03 Troponin I (TnI) levels must be interpreted in the context of the presenting symptoms and the clinical findings. Elevated TnI levels indicate myocardial damage, but are not specific for ischemic heart disease. Elevated TnI levels are seen in patients with other cardiac conditions (including myocarditis and congestive heart failure), and slight TnI elevations occur in patients with other conditions, including sepsis, renal failure, acidosis, acute neurological disease, and persistent tachyarrhythmia.[id number] 03:47:00 Test Item Value Reference Range Interpretation Comments POTASSIUM (BEAKER) 5.0 meq/L 3.5-5.1 Specimen slightly (test code = 379) hemolyzed LACTIC ACID, VENOUS, WHOLE [id number] 23:11:00 Test Item Value Reference Range Interpretation Comments LACTATE BLOOD VENOUS (2) (BEAKER) 1.0 mmol/L 0.5-2.2 (test code = 2872) Effective 09/13/2015: Units/Reference Range ChangeNew: 0.5-2.2 mmol/L Previous: 5-20 mg/dLSpecimen slightly lipemicURINALYSIS W/ REFLEX URINE [id number] 22:25:00 Test Item Value Reference Range Interpretation Comments COLOR (BEAKER) (test code = 470) Light Yellow CLARITY (BEAKER) (test code = Clear 469) SPECIFIC GRAVITY UA (BEAKER) 1.006 1.001-1.035 (test code = 468) PH UA (BEAKER) (test code = 467) 8.0 5.0-8.0 PROTEIN UA (BEAKER) (test code = 300 mg/dL Negative A 464) GLUCOSE UA (BEAKER) (test code = 150 mg/dL Negative A 365) KETONES UA (BEAKER) (test code = Negative Negative 371) BILIRUBIN UA (BEAKER) (test code Negative Negative = 462) BLOOD UA (BEAKER) (test code = Trace Negative A 461) NITRITE UA (BEAKER) (test code = Negative Negative 465) LEUKOCYTE ESTERASE UA (BEAKER) Negative Negative (test code = 466) UROBILINOGEN UA (BEAKER) (test 0.2 mg/dL 0.2-1.0 code = 463) RBC UA (BEAKER) (test code = < /HPF 519) WBC UA (BEAKER) (test code = 1 /HPF 520) SQUAMOUS EPITHELIAL (BEAKER) 6 /HPF (test code = 516) SOURCE(BEAKER) (test code = 9311) RAD, CHEST, 1 VIEW, NON [id number] 22:16:00Dialysis 05/23Reason for exam:- >ABNORMAL LABShould this be performed at the bedside?->YesFINAL REPORT TECHNIQUE: Frontal view of the chest. INDICATION: Abnormal lab. COMPARISON: Chest radiograph from 12/16/2017. FINDINGS: LINES/TUBES: None. LUNGS: Central pulmonary venous congestion. No consolidation or pulmonary edema. PLEURA: No pneumothorax or significant pleural effusion. HEART AND MEDIASTINUM: The cardiomediastinal silhouette is unchanged and moderately enlarged. The left atrium is enlarged. SOFT TISSUES AND BONES: Unremarkable. IMPRESSION:Moderately enlargedcardiac silhouette with pulmonary venous congestion. Signed: Bret Castorena MDReport Verified Date/Time: 02/09/2018 22:16:37 Reading Location: [address] Consult Reading Room B-TYPE NATRIURETIC FACTOR (BNP)2018-02-09 20:33:00 Test Item Value Reference Range Interpretation Comments B-TYPE NATRIURETIC PEPTIDE (BEAKER) 957 pg/mL 0-100 H (test code = 700) CREATINE KINASE (CK), TOTAL AND [id number] 20:31:00 Test Item Value Reference Range Interpretation Comments CREATINE KINASE TOTAL (BEAKER) 153 U/L 29-200 (test code = 380) CREATINE KINASE-MB (BEAKER) (test 1.5 ng/mL 0.0-6.6 code = 750) CREATINE KINASE-MB INDEX (BEAKER) 1.0 % (test code = 395) CK-MB Reference Range:<6.7 Normal6.7-10.0 Borderline>10.0 AbnormalTROPONIN [id number] 20:31:00 Test Item Value Reference Range Interpretation Comments TROPONIN I (BEAKER) (test code = 0.01 ng/mL 0.00-0.03 397) Troponin I (TnI) levels must be interpreted in the context of the presenting symptoms and the clinical findings. Elevated TnI levels indicate myocardial damage, but are not specific for ischemic heart disease. Elevated TnI levels are seen in patients with other cardiac conditions (including myocarditis and congestive heart failure), and slight TnI elevations occur in patients with other conditions, including sepsis, renal failure, acidosis, acute neurological disease, and persistent tachyarrhythmia.BASIC METABOLIC [id number] 18:44:00 Test Item Value Reference Range Interpretation Comments SODIUM (BEAKER) 137 meq/L 136-145 (test code = 381) POTASSIUM (BEAKER) 5.2 meq/L 3.5-5.1 H (test code = 379) CHLORIDE (BEAKER) 102 meq/L 98-107 (test code = 382) CO2 (BEAKER) (test 23 meq/L 22-29 code = 355) BLOOD UREA NITROGEN 42 mg/dL 7-21 H (BEAKER) (test code = 354) CREATININE (BEAKER) 16.01 mg/dL 0.57-1.25 H (test code = 358) GLUCOSE RANDOM 154 mg/dL 70-105 H (BEAKER) (test code = 652) CALCIUM (BEAKER) 7.4 mg/dL 8.4-10.2 L (test code = 697) EGFR (BEAKER) (test 2 mL/min/1.73 ESTIMAT ED GFR IS code = 1092) sq m NOT ACCURATE CREATININE CLEARANCE IN PREDICTING GLOMERULAR FILTRATION RATE . ESTIMATED GFR I S NOT APPLICABLE FOR DIALYSIS PATIEN TS. CBC W/PLT COUNT & AUTO [id number] 18:22:00 Test Item Value Reference Range Interpretation Comments WHITE BLOOD CELL COUNT (BEAKER) 6.1 K/ L 3.5-10.5 (test code = 775) RED BLOOD CELL COUNT (BEAKER) 2.01 M/ L 3.93-5.22 L (test code = 761) HEMOGLOBIN (BEAKER) (test code = 6.1 GM/DL 11.2-15.7 L 410) HEMATOCRIT (BEAKER) (test code = 19.1 % 34.1-44.9 L 411) MEAN CORPUSCULAR VOLUME (BEAKER) 95.0 fL 79.4-94.8 H (test code = 753) MEAN CORPUSCULAR HEMOGLOBIN 30.3 pg 25.6-32.2 (BEAKER) (test code = 751) MEAN CORPUSCULAR HEMOGLOBIN CONC 31.9 GM/DL 32.2-35.5 L (BEAKER) (test code = 752) RED CELL DISTRIBUTION WIDTH 14.6 % 11.7-14.4 H (BEAKER) (test code = 412) PLATELET COUNT (BEAKER) (test 110 K/CU MM 150-450 L code = 756) MEAN PLATELET VOLUME (BEAKER) 8.8 fL 9.4-12.3 L (test code = 754) NUCLEATED RED BLOOD CELLS 1 /100 WBC 0-0 H (BEAKER) (test code = 413) NEUTROPHILS RELATIVE PERCENT 49 % (BEAKER) (test code = 429) LYMPHOCYTES RELATIVE PERCENT 40 % (BEAKER) (test code = 430) MONOCYTES RELATIVE PERCENT 7 % (BEAKER) (test code = 431) EOSINOPHILS RELATIVE PERCENT 2 % (BEAKER) (test code = 432) BASOPHILS RELATIVE PERCENT 0 % (BEAKER) (test code = 437) NEUTROPHILS ABSOLUTE COUNT 3.00 K/ L 1.56-6.13 (BEAKER) (test code = 670) LYMPHOCYTES ABSOLUTE COUNT 2.44 K/ L 1.18-3.74 (BEAKER) (test code = 414) MONOCYTES ABSOLUTE COUNT (BEAKER) 0.44 K/ L 0.24-0.36 H (test code = 415) EOSINOPHILS ABSOLUTE COUNT 0.13 K/ L 0.04-0.36 (BEAKER) (test code = 416) BASOPHILS ABSOLUTE COUNT (BEAKER) 0.01 K/ L 0.01-0.08 (test code = 417) IMMATURE GRANULOCYTES-RELATIVE 1 % 0-1 PERCENT (BEAKER) (test code = 2801) BLOOD CULTURE, AFB [id number] 20:40:00 Test Item Value Reference Range Interpretation Comments CULTURE (BEAKER) (test No acid-fast bacilli code = 1095) isolated in 42 days TISSUE [id number] 13:09:00Surgical Pathology Report Case: [id number] Authorizing Provider: Remigio Lee MD Collected: 01/05/20182145 Ordering Location: [place] [address] OP Received: 01/05/20182150 Pathologist: Amy Ortega MD Specimen: Biopsy, Liver, Bx LIVER, TRANSJUGULAR NEEDLE BIOPSIES- BENIGN NON-NEOPLASTIC LIVER PARENCHYMA WITH MILD CHRONIC NONSPECIFIC PORTAL INFLAMMATION- NO TUMOR SEEN- NEGATIVE FOR SIGNIFICANT STEATOSIS- NEGATIVE FOR ADVANCED FIBROSIS OR CIRRHOSIS- MILD HEMOSIDEROSIS- SEE COMMENT Signing Pathologist Direct Phone Line: [phone] signed by Amy Ortega MD on 01/18/2018 at 1:09 PMThe liver biopsy shows benign non-neoplastic liver parenchyma. No tumor is seen. No significant steatosis is seen (<2% hepatocytes show fat) . Few lipogranulomas are present, which are considered to be footprints of prior steatosis. No sig nificant portal fibrosis is seen. There is mild chronic portal and lobular inflammation with focal mild interface hepatitis. Considering the normal levels of transaminases and alkaline phosphatase ([facility] labs dated 12/16/2017), this is favored to be nonspecific. Clinical correlation is recommended.[id number], 21055 [id number] lesions and fatty liverTransjugular needle biopsyReceived in formalin labeled with patient's name and MRN are five tissue cores ranging from 0.4 cm to 1.6 cm with an average diameter of 0.1 cm. Entirely submitted in A1.Section shows multiple variably sized cores of liver parenchyma with greater than 10 portal tracts and is adequate for evaluation. Trichome stain and reticulin stain shows preserved architecture with scattered portal tracts and preserved, unremarkable bile ducts. The portal tracts show mild chronic nonspecific portal inflammation with focal mild interface hepatitis. There is minimal large droplet steatosis involving about 2% of liver parenchyma. No ballooning degeneration is noted. There are few scattered lobular and portal lipogranulomas. Mild lobular inflammation is noted. Rare megakaryocyte is present in the sinusoids. Iron stain shows !+ staining in the hepatocytes and there is iron accumulation in the kupffer cells. No hyaline globules are seen on PASD stain. No significant portal fibrosis is seen.Special stains: trichrome, reticulin, iron and PAS with diastaseANG, TRANSCATHETER [id number] 08:12:00Dialysis 05/23Reason for exam:->fatty liver AND LIVER LESIONS With pressure measurementFINAL REPORT Transjugular liver biopsy, 01/05/2018. History: Fatty liver, kidney transplant workup. Modality: Fluoroscopy. Sedation: Versed 1.5 mg and fentanyl 75 mcg was given intravenously for conscious sedation. Vital signs were monitored throughout the procedure by a nurse, and remained stable. Physician intra- service time was 35 min. French Binding Folder: Herberth Cespedes MD. Military Technology Manager: MD Carlos. Approach: Right internal jugular vein Estimated blood loss: < 5 cc. Specimen: 4 19-gauge core specimens placed within formalin and sent to pathology. Fluoroscopy Time: 3.0 min.Reference AirKerma (Ka, r): 150 mGy. Technique: Informed written consent was obtained. Discussion of risks, benefits, and alternatives were made with the patient. The patient expressed understanding and agreed to proceed. A universal timeout was performed prior to starting the procedure. All elements maximal sterile barrier technique was utilized for this procedure, including utilization of sterile scrub solution for skin prep, a large sterile sheet to cover the areas of the patient that were not prepped, andhand hygiene, mask, head covering, and sterile gown for performing radiologist and scrub technologist. Ultrasound evaluation showed a patent and compressible right right internal jugular vein, which was punctured under direct real-time ultrasound guidance with a micropuncture needle. An ultrasound image was saved to PACS. A 0.018 inch wire was placed through the needle into the right atrium. A 4 Singaporean micropuncture sheath was placed. A 0.035 inch J-wire was placed through the micropuncture sheath and the sheath was exchanged for a 9 Singaporean sheath. A 5 Singaporean angled tip catheter was used to select the right hepatic vein. Venogram was performed. Pressures were obtained through the catheter withmeasurements as follows: wedged hepatic - 16 mmHg, free hepatic - 13, and right atrium - 10. A longmetal reinforced 7 Singaporean sheath was placed through the 9 Singaporean sheath into the right hepatic vein.A long 19-gauge core biopsy needle was then placed through sheath with 4 core samples obtained within the liver. The needle and sheath were removed. Hemostasis was obtained with manual compression. The patient tolerated the procedure well and left the department in the same condition. Findings: Venogram demonstrates patent right hepatic vein and intrahepatic IVC. Impression: Successful, uncomplicated transjugular liver biopsy, using fluoroscopic guidance and conscious sedation. HVPG 3 mmHg. Signed: Herberth Cespedes MDRchuckort Verified Date/Time: 01/06/2018 08:12:10 Reading Location: [facility] P[facility] BASIC METABOLIC [id number] 10:46:00 Test Item Value Reference Range Interpretation Comments SODIUM (BEAKER) 135 meq/L 136-145 L (test code = 381) POTASSIUM (BEAKER) 4.9 meq/L 3.5-5.1 (test code = 379) CHLORIDE (BEAKER) 101 meq/L 98-107 (test code = 382) CO2 (BEAKER) (test 20 meq/L 22-29 L code = 355) BLOOD UREA NITROGEN 44 mg/dL 7-21 H (BEAKER) (test code = 354) CREATININE (BEAKER) 14.96 mg/dL 0.57-1.25 H (test code = 358) GLUCOSE RANDOM 118 mg/dL 70-105 H (BEAKER) (test code = 652) CALCIUM (BEAKER) 8.1 mg/dL 8.4-10.2 L (test code = 697) EGFR (BEAKER) (test 3 mL/min/1.73 ESTIMAT ED GFR IS code = 1092) sq m NOT ACCURATE CREATININE CLEARANCE IN PREDICTING GLOMERULAR FILTRATION RATE . ESTIMATED GFR I S NOT APPLICABLE FOR DIALYSIS PATIEN TS. [id number] 10:30:00 Test Item Value Reference Range Interpretation Comments PROTIME (BEAKER) (test code = 14.6 seconds 11.7-14.7 759) INR (BEAKER) (test code = 370) 1.1 <=5.9 PARTIAL THROMBOPLASTIN TIME 29.2 seconds 22.5-36.0 (BEAKER) (test code = 760) RECOMMENDED COUMADIN/WARFARIN INR THERAPY RANGESSTANDARD DOSE: 2.0 - 3.0 Includes: PROPHYLAXIS forvenous thrombosis, systemic embolization; TREATMENT for venous thrombosis and/or pulmonary embolus.HIGH RISK: Target INR is 2.5-3.5 for patients with mechanical heart valves.CBC W/PLT COUNT & AUTO DIFFERENTIAL 2018-01-05 10:15:00 Test Item Value Reference Range Interpretation Comments WHITE BLOOD CELL COUNT (BEAKER) 8.3 K/ L 3.5-10.5 (test code = 775) RED BLOOD CELL COUNT (BEAKER) 2.51 M/ L 3.93-5.22 L (test code = 761) HEMOGLOBIN (BEAKER) (test code = 7.6 GM/DL 11.2-15.7 L 410) HEMATOCRIT (BEAKER) (test code = 23.3 % 34.1-44.9 L 411) MEAN CORPUSCULAR VOLUME (BEAKER) 92.8 fL 79.4-94.8 (test code = 753) MEAN CORPUSCULAR HEMOGLOBIN 30.3 pg 25.6-32.2 (BEAKER) (test code = 751) MEAN CORPUSCULAR HEMOGLOBIN CONC 32.6 GM/DL 32.2-35.5 (BEAKER) (test code = 752) RED CELL DISTRIBUTION WIDTH 14.0 % 11.7-14.4 (BEAKER) (test code = 412) PLATELET COUNT (BEAKER) (test 106 K/CU MM 150-450 L code = 756) MEAN PLATELET VOLUME (BEAKER) 8.9 fL 9.4-12.3 L (test code = 754) NUCLEATED RED BLOOD CELLS 0 /100 WBC 0-0 (BEAKER) (test code = 413) NEUTROPHILS RELATIVE PERCENT 56 % (BEAKER) (test code = 429) LYMPHOCYTES RELATIVE PERCENT 33 % (BEAKER) (test code = 430) MONOCYTES RELATIVE PERCENT 8 % (BEAKER) (test code = 431) EOSINOPHILS RELATIVE PERCENT 3 % (BEAKER) (test code = 432) BASOPHILS RELATIVE PERCENT 0 % (BEAKER) (test code = 437) NEUTROPHILS ABSOLUTE COUNT 4.65 K/ L 1.56-6.13 (BEAKER) (test code = 670) LYMPHOCYTES ABSOLUTE COUNT 2.72 K/ L 1.18-3.74 (BEAKER) (test code = 414) MONOCYTES ABSOLUTE COUNT (BEAKER) 0.63 K/ L 0.24-0.36 H (test code = 415) EOSINOPHILS ABSOLUTE COUNT 0.26 K/ L 0.04-0.36 (BEAKER) (test code = 416) BASOPHILS ABSOLUTE COUNT (BEAKER) 0.02 K/ L 0.01-0.08 (test code = 417) IMMATURE GRANULOCYTES-RELATIVE 1 % 0-1 PERCENT (BEAKER) (test code = 2801) ANTI-MITOCHONDRIAL AB, REFLEX TO [id number] 09:47:00 Test Item Value Reference Range Interpretation Comments SCAN RESULT (test code = 4558179) FUNGUS CULTURE, BLOOD (ISOLATOR)2017-12-27 07:40:00 Test Item Value Reference Range Interpretation Comments CULTURE (BEAKER) (test No fungus isolated code = 1095) PERITONEAL DIALYSIS EFFLUENT [id number] 08:47:00 Test Item Value Reference Range Interpretation Comments CULTURE (BEAKER) (test code No growth = 1095) GRAM STAIN RESULT (BEAKER) No WBCs (test code = 1123) GRAM STAIN RESULT (BEAKER) No organisms seen (test code = 03674) DOUBLE-STRANDED DNA (DSDNA) [id number] 08:41:00 Test Item Value Reference Range Interpretation Comments ANTI-DNA DS (BEAKER) (test code = Negative 1055) RHEUMATOID FACTOR AB, REFLEX TO [id number] 05:40:00 Test Item Value Reference Range Interpretation Comments RHEUMATOID FACTOR (BEAKER) (test Negative code = 573) BLOOD [id number] 00:00:00 Test Item Value Reference Range Interpretation Comments CULTURE (BEAKER) (test No growth in 5 days code = 1095) BLOOD [id number] 00:00:00 Test Item Value Reference Range Interpretation Comments CULTURE (BEAKER) (test No growth in 5 days code = 1095) PERITONEAL DIALYSIS EFFLUENT [id number] 11:45:00 Test Item Value Reference Range Interpretation Comments CULTURE (BEAKER) (test code No growth = 1095) GRAM STAIN RESULT (BEAKER) 1+ WBCs (test code = 1123) GRAM STAIN RESULT (BEAKER) No organisms seen (test code = 33707) POCT-GLUCOSE [id number] 11:44:00 Test Item Value Reference Range Interpretation Comments POC-GLUCOSE METER 260 mg/dL 70-110 H TESTED AT [place] [address] ([facility]) (test code = [facility] 1538) [address] ANTI-NUCLEAR ANTIBODY (CECI)2017-12-20 09:35:00 Test Item Value Reference Range Interpretation Comments ANTI-NUCLEAR ANTIBODY (CECI) (AKER) Negative Negative (test code = 418) Test performed by IFA method.Test performed by IFA method.POCT-GLUCOSE METER 2017-12-20 07:53:00 Test Item Value Reference Range Interpretation Comments POC-GLUCOSE METER 175 mg/dL 70-110 H TESTED AT [place] [address] ([facility]) (test code = [facility] 1538) [address] BASIC METABOLIC [id number] 07:04:00 Test Item Value Reference Range Interpretation Comments SODIUM (BEAKER) 134 meq/L 136-145 L (test code = 381) POTASSIUM (BEAKER) 4.1 meq/L 3.5-5.1 (test code = 379) CHLORIDE (BEAKER) 100 meq/L 98-107 (test code = 382) CO2 (BEAKER) (test 22 meq/L 22-29 code = 355) BLOOD UREA NITROGEN 39 mg/dL 7-21 H (BEAKER) (test code = 354) CREATININE (BEAKER) 12.73 mg/dL 0.57-1.25 H (test code = 358) GLUCOSE RANDOM 188 mg/dL 70-105 H (BEAKER) (test code = 652) CALCIUM (BEAKER) 8.2 mg/dL 8.4-10.2 L (test code = 697) EGFR (BEAKER) (test 3 mL/min/1.73 ESTIMAT ED GFR IS code = 1092) sq m NOT ACCURATE CREATININE CLEARANCE IN PREDICTING GLOMERULAR FILTRATION RATE . ESTIMATED GFR I S NOT APPLICABLE FOR DIALYSIS PATIEN TS. [id number] 06:58:00 Test Item Value Reference Range Interpretation Comments ALPHA-1 ANTITRYPSIN (BEAKER) 179.70 mg/dL 90.00-200.00 (test code = 502) CBC W/PLT COUNT & AUTO [id number] 06:23:00 Test Item Value Reference Range Interpretation Comments WHITE BLOOD CELL COUNT (BEAKER) 6.1 K/ L 3.5-10.5 (test code = 775) RED BLOOD CELL COUNT (BEAKER) 2.61 M/ L 3.93-5.22 L (test code = 761) HEMOGLOBIN (BEAKER) (test code = 7.6 GM/DL 11.2-15.7 L 410) HEMATOCRIT (BEAKER) (test code = 23.9 % 34.1-44.9 L 411) MEAN CORPUSCULAR VOLUME (BEAKER) 91.6 fL 79.4-94.8 (test code = 753) MEAN CORPUSCULAR HEMOGLOBIN 29.1 pg 25.6-32.2 (BEAKER) (test code = 751) MEAN CORPUSCULAR HEMOGLOBIN CONC 31.8 GM/DL 32.2-35.5 L (BEAKER) (test code = 752) RED CELL DISTRIBUTION WIDTH 14.0 % 11.7-14.4 (BEAKER) (test code = 412) PLATELET COUNT (BEAKER) (test 179 K/CU MM 150-450 code = 756) MEAN PLATELET VOLUME (BEAKER) 9.2 fL 9.4-12.3 L (test code = 754) NUCLEATED RED BLOOD CELLS 0 /100 WBC 0-0 (BEAKER) (test code = 413) NEUTROPHILS RELATIVE PERCENT 56 % (BEAKER) (test code = 429) LYMPHOCYTES RELATIVE PERCENT 33 % (BEAKER) (test code = 430) MONOCYTES RELATIVE PERCENT 7 % (BEAKER) (test code = 431) EOSINOPHILS RELATIVE PERCENT 4 % (BEAKER) (test code = 432) BASOPHILS RELATIVE PERCENT 0 % (BEAKER) (test code = 437) NEUTROPHILS ABSOLUTE COUNT 3.40 K/ L 1.56-6.13 (BEAKER) (test code = 670) LYMPHOCYTES ABSOLUTE COUNT 1.99 K/ L 1.18-3.74 (BEAKER) (test code = 414) MONOCYTES ABSOLUTE COUNT (BEAKER) 0.40 K/ L 0.24-0.36 H (test code = 415) EOSINOPHILS ABSOLUTE COUNT 0.21 K/ L 0.04-0.36 (BEAKER) (test code = 416) BASOPHILS ABSOLUTE COUNT (BEAKER) 0.02 K/ L 0.01-0.08 (test code = 417) IMMATURE GRANULOCYTES-RELATIVE 1 % 0-1 PERCENT (BEAKER) (test code = 4376) POCT-GLUCOSE [id number] 23:18:00 Test Item Value Reference Range Interpretation Comments POC-GLUCOSE METER 247 mg/dL 70-110 H TESTED AT [facility] 6720 ([facility]) (test code = [facility] [place] 1538) [address] HEPATITIS B SURFACE [id number] 21:39:00 Test Item Value Reference Range Interpretation Comments HEPATITIS B SURFACE ANTIGEN (2) Nonreactive Nonreactive (AKER) (test code = 2585) HEPATITIS B SURFACE [id number] 21:39:00 Test Item Value Reference Range Interpretation Comments HEPATITIS B SURFACE ANTIBODY 305.8 mIU/mL <8.0 H (AKER) (test code = 647) HEPATITIS C [id number] 21:39:00 Test Item Value Reference Range Interpretation Comments HEPATITIS C ANTIBODY (BEAKER) Nonreactive Nonreactive (test code = 367) HEPATITIS B CORE ANTIBODY, [id number] 21:39:00 Test Item Value Reference Range Interpretation Comments HEPATITIS B CORE TOTAL ANTIBODY Nonreactive Nonreactive (ESTRELLA) (test code = 497) HEPATITIS A ANTIBODY, [id number] 21:39:00 Test Item Value Reference Range Interpretation Comments HEPATITIS A IGG ANTIBODY (ESTRELLA) Nonreactive Nonreactive (test code = 2797) EBV VIRAL [id number] 19:17:00 Test Item Value Reference Range Interpretation Comments EBV VIRAL LOAD - Negative or below the NEGATIVE (ESTRELLA) (test linear range of the code = 2559) assay (<500 copies/mL) This assay was performed by real-time PCR for the detection of the Sedrick-Shay virus (EBV) gene EBNA-1. The test is composed of (1) DNA extraction from patient specimen, and (2) real-time PCR amplification and detection with PCXT-2-nvczkuwn primers and probes. A well-conserved region of the EBNA-1 gene is targeted, along with an internal control sequence used to confirm PCR amplification. Asymptomatic carriers and viral genetic variation, among other factors, can affect the accuracy of nucleic acid testing; therefore, results should be interpreted in light of clinical data.This test was developedand its performance characteristics determined by the [facility], Section of Molecular Pathology. It has not been cleared or approved by the U.S. Food and Drug Administration (FDA), since FDA approval is not required for clinical use of the test. Validation was doneas required by The Clinical Laboratory Improvement Amendments of 1988.POCT-GLUCOSE [id number] 18:24:00 Test Item Value Reference Range Interpretation Comments POC-GLUCOSE METER 166 mg/dL 70-110 H TESTED AT [facility] 67 ([facility]) (test code = [facility] 1538) [address] CT, CHEST, WITH [id number] 16:59:00Dialysis 05/23FINAL REPORT CT scan of the chest. CLINICAL HISTORY: Bilateral pulmonary nodules seen on CT scan of the abdomen. COMPARISON STUDY: CT scan of the abdomen dated December 17, 2017. TECHNIQUE: Contiguous helical slices were acquired through the thorax post administration of intravenous contrast. This exam was performed according to our department dose optimization program which includes automated exposure control, adjustment of the mA and/or kV according to the patient's size and/oruse of iterative reconstruction technique. FINDINGS: The mediastinum demonstrates atherosclerosis. There are small mediastinal lymph nodes measuring up to 8 mm in short axis. A 1.3 cm subcarinal lymph node is seen. Ultimately identified. There are no pleural effusions. The visualized portions of the upper abdomen demonstrate a 1.5 x 1.3 cm low-attenuation lesion in the hepatic dome at the midline. A 1.0 cm lesion is seen in the right lobe. Lack of contrast limits assessment. Mild ascites is seen. The tracheobronchial tree is clear with no endobronchial lesions. The pulmonary parenchyma demonstratesmultiple bilateral groundglass and nodular pulmonary opacities measuring up to 1.6 cm in the left upper lobe on image 11. Bibasilar atelectasis or consolidation is seen. Bone windows demonstrate degenerative changes. IMPRESSION:1. Multiple bilateral groundglass and nodular pulmonary opacities which are indeterminant. The differential includes infection, inflammatory change and neoplasm.2. Cardiomegaly with small mediastinal lymph nodes.3. Ascites with hepatic lesions. Please for to recent CT scan ofthe abdomen. Signed: Nataly Ludwig MDReport Verified Date/Time: 12/19/2017 16:59:46 Reading Location: [address] Consult Reading Room Electronically signed by: NATALY LUDWIG M.D. on 04:59 PMPOCT-GLUCOSE [id number] 14:08:00 Test Item Value Reference Range Interpretation Comments POC-GLUCOSE METER 198 mg/dL 70-110 H TESTED AT [facility] 6720 (BEAKER) (test code = [facility] 9470) [address] BODY FLUID CELL COUNT WITH [id number] 13:55:00 Test Item Value Reference Range Interpretation Comments APPEARANCE FLUID (BEAKER) (test Clear Clear code = 510) COLOR FLUID (BEAKER) (test code = Colorless Colorless, Straw 511) RBC FLUID (BEAKER) (test code = 0 /cu mm <=1 513) ADJUSTED WBC FLUID (BEAKER) (test 4 /cu mm <=5 code = 1691) LINING CELLS (BEAKER) (test code = 0 /cu mm <=1 1590) NEUTROPHILS FLUID (BEAKER) (test 20 % code = 1656) LYMPHS FLUID (BEAKER) (test code = 30 % 488) MONO/MACROPHAGE FLUID (BEAKER) 50 % (test code = 489) EOSINOPHILS FLUID (BEAKER) (test 0 % code = 491) BASO FLUID (BEAKER) (test code = 0 % 492) CONTAINER BODY FLUID (BEAKER) EDTA Tube (test code = 2873) HIV-1 ANTIGEN WITH HIV-1/2 [id number] 13:22:00 Test Item Value Reference Range Interpretation Comments HIV-1 ANTIGEN WITH HIV 1\\T\\2 Nonreactive Nonreactive ANTIBODY (2) (BEAKER) (test code = 2586) IRON, TIBC, % SAT. (WITHOUT FERRITIN)2017-12-19 13:03:00 Test Item Value Reference Range Interpretation Comments IRON (BEAKER) (test code = 547) 88 ug/dL 40-160 TOTAL IRON BINDING CAPACITY 213 ug/dL 250-450 L (BEAKER) (test code = 769) IRON % SATURATION (2) (BEAKER) 41 % 20-55 (test code = 2590) HEMOGLOBIN AND [id number] 12:40:00 Test Item Value Reference Range Interpretation Comments HEMOGLOBIN (BEAKER) (test code = 7.2 GM/DL 11.2-15.7 L 410) HEMATOCRIT (BEAKER) (test code = 22.5 % 34.1-44.9 L 411) ANTI-NUCLEAR ANTIBODY (CECI)2017-12-19 10:57:00 Test Item Value Reference Range Interpretation Comments ANTI-NUCLEAR ANTIBODY (CECI) (BEAKER) Negative Negative (test code = 418) Test performed by IFA method.Test performed by IFA method.FLOW CYTOMETRY [id number] 09:53:00 Test Item Value Reference Range Interpretation Comments FLOW CYTOMETRY RESULT See Separate Report POINTER (BEAKER) (test code = 2758) FLOW CYTOMETRY AP CASE # [id number] ([facility]) (test code = 2759) POCT-GLUCOSE [id number] 08:01:00 Test Item Value Reference Range Interpretation Comments POC-GLUCOSE METER 187 mg/dL 70-110 H TESTED AT [facility] 6720 ([facility]) (test code = [facility] 1538) [address] BASIC METABOLIC [id number] 07:41:00 Test Item Value Reference Range Interpretation Comments SODIUM (BEAKER) 133 meq/L 136-145 L (test code = 381) POTASSIUM (BEAKER) 4.2 meq/L 3.5-5.1 (test code = 379) CHLORIDE (BEAKER) 99 meq/L 98-107 (test code = 382) CO2 (BEAKER) (test 20 meq/L 22-29 L code = 355) BLOOD UREA NITROGEN 42 mg/dL 7-21 H (BEAKER) (test code = 354) CREATININE (BEAKER) 13.19 mg/dL 0.57-1.25 H (test code = 358) GLUCOSE RANDOM 183 mg/dL 70-105 H (BEAKER) (test code = 652) CALCIUM (BEAKER) 8.0 mg/dL 8.4-10.2 L (test code = 697) EGFR (BEAKER) (test 3 mL/min/1.73 ESTIMAT ED GFR IS code = 1092) sq m NOT ACCURATE CREATININE CLEARANCE IN PREDICTING GLOMERULAR FILTRATION RATE . ESTIMATED GFR I S NOT APPLICABLE FOR DIALYSIS PATIEN TS. CBC W/PLT COUNT & AUTO [id number] 07:39:00 Test Item Value Reference Range Interpretation Comments WHITE BLOOD CELL COUNT (BEAKER) 6.8 K/ L 3.5-10.5 (test code = 775) RED BLOOD CELL COUNT (BEAKER) 2.48 M/ L 3.93-5.22 L (test code = 761) HEMOGLOBIN (BEAKER) (test code = 7.3 GM/DL 11.2-15.7 L 410) HEMATOCRIT (BEAKER) (test code = 22.9 % 34.1-44.9 L 411) MEAN CORPUSCULAR VOLUME (BEAKER) 92.3 fL 79.4-94.8 (test code = 753) MEAN CORPUSCULAR HEMOGLOBIN 29.4 pg 25.6-32.2 (BEAKER) (test code = 751) MEAN CORPUSCULAR HEMOGLOBIN CONC 31.9 GM/DL 32.2-35.5 L (BEAKER) (test code = 752) RED CELL DISTRIBUTION WIDTH 14.2 % 11.7-14.4 (BEAKER) (test code = 412) PLATELET COUNT (BEAKER) (test 175 K/CU MM 150-450 code = 756) MEAN PLATELET VOLUME (BEAKER) 9.2 fL 9.4-12.3 L (test code = 754) NUCLEATED RED BLOOD CELLS 0 /100 WBC 0-0 (BEAKER) (test code = 413) NEUTROPHILS RELATIVE PERCENT 51 % (BEAKER) (test code = 429) LYMPHOCYTES RELATIVE PERCENT 38 % (BEAKER) (test code = 430) MONOCYTES RELATIVE PERCENT 7 % (BEAKER) (test code = 431) EOSINOPHILS RELATIVE PERCENT 2 % (BEAKER) (test code = 432) BASOPHILS RELATIVE PERCENT 0 % (BEAKER) (test code = 437) NEUTROPHILS ABSOLUTE COUNT 3.46 K/ L 1.56-6.13 (BEAKER) (test code = 670) LYMPHOCYTES ABSOLUTE COUNT 2.60 K/ L 1.18-3.74 (BEAKER) (test code = 414) MONOCYTES ABSOLUTE COUNT (BEAKER) 0.48 K/ L 0.24-0.36 H (test code = 415) EOSINOPHILS ABSOLUTE COUNT 0.15 K/ L 0.04-0.36 (BEAKER) (test code = 416) BASOPHILS ABSOLUTE COUNT (BEAKER) 0.02 K/ L 0.01-0.08 (test code = 417) IMMATURE GRANULOCYTES-RELATIVE 1 % 0-1 PERCENT (BEAKER) (test code = 2801) RETICULOCYTE [id number] 07:20:00 Test Item Value Reference Range Interpretation Comments RETICULOCYTE COUNT PCT (BEAKER) (test 2.3 % 0.5-1.7 H code = 575) OCCULT BLOOD, [id number] 00:42:00 Test Item Value Reference Range Interpretation Comments FECAL OCCULT BLOOD (BEAKER) (test Negative Negative code = 618) POCT-GLUCOSE [id number] 21:17:00 Test Item Value Reference Range Interpretation Comments POC-GLUCOSE METER 237 mg/dL 70-110 H TESTED AT [facility] 6720 (BEAKER) (test code = [facility] 1538) [address] CMV PCR, [id number] 20:50:00 Test Item Value Reference Range Interpretation Comments CMV VIRAL LOAD - Negative or below the NEGATIVE (BEAKER) (test linear range of the code = 2558) assay (<375 copies/mL) Cytomegalovirus (CMV) infection can cause significant disease in immunosuppressed patients. However,it is common for CMV to manifest as a limited infection which is of no clinical significance in immunosuppressed patients or in healthy individuals.Viral load measurements are helpful to identify clinical CMV infection and to guide the pre-emptive management of antiviral therapy. For treatment of CMVinfection due to reactivation in transplant recipients, a threshold between 4,000 and 5,000 copies/mL is suggested. For treatment of primary CMV infection, a lower threshold can be used.CMV infection may also be monitored using weekly serial measurements. Serial measurements of CMV DNA viral load canbe evaluated by identifying a 10-fold change, as well as assessing the CMV DNA viral load and the clinical context for each patient.The plasma CMV DNA viral load was detected using quantitative polymerase chain reaction and fluorescent monitoring of a specific hybridized probe. Genetic variation and ot her factors can affect the accuracy of nucleic acid testing. Therefore, the results should be interpreted in light of clinical data. A negative result may not exclude the presence of CMV disease.This test was developed and its performance characteristics determined by the [facility], Section of Molecular Pathology. It has not been cleared or approved by the U.S. Food and Drug Administration (FDA), since FDA approval is not required for clinical use of the test. Validation was done as required by The Clinical Laboratory Improvement Amendments of 1988.CORTISOL,60 [id number] 18:35:00 Test Item Value Reference Range Interpretation Comments CORTISOL BASELINE NETWORKED 5.2 mcg/dL (BEAKER) (test code = 2307) CORTISOL 30 MINUTE NETWORKED 16.9 mcg/dL (BEAKER) (test code = 2308) CORTISOL, 60 MINUTE (BEAKER) 19.3 ug/dL (test code = 1805) ACTH STIMULATION TEST INTERPRETATION GUIDELINES(Synonyms: Cortrosyn Test, Cosyntropin or Corticotropin Stimulation Test)Adenocorticotropic hormone (ACTH)is a tropic hormone, made in the pituitary gland, which travels trhough the bloodstream and stimulates the cortex of the adrenal glands to release cortisol. Cortisol is a primary hormone, which aids the body's metabolism of fats, carbohydrates, and protein as well as sodium and potassium regulation.ACTH Stimulation Test: Exogenous administrationof biologically active ACTH stimulates the secretion of cortisol from the adrenal gland. This test is used to evaluate adrenal function by measuring cortisol levels at baseline and at 30 and 60 minutesafter the administration of 250 micrograms of cosyntropin (Cortrosyn). Patients who have received exogenous corticosteroids immediately prior to performing the ACTH Stimulation Test will often have elevated baseline cortisol levels, which may lead to erroneous interpretation of test results. The notable exception is with dexamethasone.Normal Response: An increase in cortisol after stimulation by ACTHis normal. Post-stimulation cortisol concentration should be greater than 20 mcg/dL or the rate of rise from baseline cortisol should be greater than or equal to 9 mcg/dL.Patients with sepsis or septicshock: According to a study by Efren et al (CATHERINE 2000,283(8):1038-45), the ACTH Stimulation Test provides important prognostic information. This study defined 3 groups of patients with sepsis or septic shock: 1. Good Survival: Low basal cortisol (<or=34 mcg/dL) and high ACTH response (>9mcg/dL) 2. Intermediate Survival: Low basal cortisol (<34 mcg/dL) and low response to ACTH (<or=9 mcg/dL) OR High basal cortisol (>34 mcg/dL) or high ACTH response (>9 mcg/dL) 3.Poor Survival: High basal cortisol (>34 mcg/dL) and low ACTH response (<or=9 mcg/dL).Treatment of patients with relative adrenal dysfunction may be indicated based on test results and the cli nical condition of the patient. Additional information, including treatment recommendations, is available in critically ill patients, approved by the Pharmacy, Nutrition, and Therapeutics Committee on 04/20/2004 and available through the Pharmacy Policy and Procedure Section on The Source.Do not run this test if systemic hydrocortisone, methylprednisolone, prednisolone or prednisone has been administered within the past 24 hours. Draw baseline cortisol level just prior to cosyntropin administration. Administer cosyntropin 0.25 mg diluted in 2-5 mL of normal saline slow IV Push over a period of 2 minutes. Draw serum cortisol level 30 minutes after cosyntropin administration. Draw serum cortisollevel 60 minutes after cosyntropin administration.CORTISOL,30 MIN 2017-12-18 17:48:00 Test Item Value Reference Range Interpretation Comments CORTISOL BASELINE NETWORKED 5.2 mcg/dL (BEAKER) (test code = 2307) CORTISOL, 30 MINUTE (BEAKER) (test 16.9 ug/dL code = 1804) ACTH STIMULATION TEST INTERPRETATION GUIDELINES(Synonyms: Cortrosyn Test, Cosyntropin or Corticotropin Stimulation Test)Adenocorticotropic hormone (ACTH)is a tropic hormone, made in the pituitary gland, which travels trhough the bloodstream and stimulates the cortex of the adrenal glands to release cortisol. Cortisol is a primary hormone, which aids the body's metabolism of fats, carbohydrates, and protein as well as sodium and potassium regulation.ACTH Stimulation Test: Exogenous administrationof biologically active ACTH stimulates the secretion of cortisol from the adrenal gland. This test is used to evaluate adrenal function by measuring cortisol levels at baseline and at 30 and 60 minutesafter the administration of 250 micrograms of cosyntropin (Cortrosyn). Patients who have received exogenous corticosteroids immediately prior to performing the ACTH Stimulation Test will often have elevated baseline cortisol levels, which may lead to erroneous interpretation of test results. The notable exception is with dexamethasone.Normal Response: An increase in cortisol after stimulation by ACTHis normal. Post-stimulation cortisol concentration should be greater than 20 mcg/dL or the rate of rise from baseline cortisol should be greater than or equal to 9 mcg/dL.Patients with sepsis or septicshock: According to a study by Efren et al (CATHERINE 2000,283(8):1038-45), the ACTH Stimulation Test provides important prognostic information. This study defined 3 groups of patients with sepsis or septic shock: 1. Good Survival: Low basal cortisol (<or=34 mcg/dL) and high ACTH response (>9mcg/dL) 2. Intermediate Survival: Low basal cortisol (<34 mcg/dL) and low response to ACTH (<or=9 mcg/dL) OR High basal cortisol (>34 mcg/dL) or high ACTH response (>9 mcg/dL) 3.Poor Survival: High basal cortisol (>34 mcg/dL) and low ACTH response (<or=9 mcg/dL).Treatment of patients with relative adrenal dysfunction may be indicated based on test results and the cli nical condition of the patient. Additional information, including treatment recommendations, is available in critically ill patients, approved by the Pharmacy, Nutrition, and Therapeutics Committee on 04/20/2004 and available through the Pharmacy Policy and Procedure Section on The Source.Do not run this test if systemic hydrocortisone, methylprednisolone, prednisolone or prednisone has been administered within the past 24 hours. Draw baseline cortisol level just prior to cosyntropin administration. Administer cosyntropin 0.25 mg diluted in 2-5 mL of normal saline slow IV Push over a period of 2 minutes. Draw serum cortisol level 30 minutes after cosyntropin administration. Draw serum cortisollevel 60 minutes after cosyntropin administration. CORTISOL,[id number] 17:17:00 Test Item Value Reference Range Interpretation Comments CORTISOL, BASELINE (ESTRELLA) (test 5.2 ug/dL code = 1803) ACTH STIMULATION TEST INTERPRETATION GUIDELINES(Synonyms: Cortrosyn Test, Cosyntropin or Corticotropin Stimulation Test)Adenocorticotropic hormone (ACTH)is a tropic hormone, made in the pituitary gland, which travels trhough the bloodstream and stimulates the cortex of the adrenal glands to release cortisol. Cortisol is a primary hormone, which aids the body's metabolism of fats, carbohydrates, and protein as well as sodium and potassium regulation.ACTH Stimulation Test: Exogenous administrationof biologically active ACTH stimulates the secretion of cortisol from the adrenal gland. This test is used to evaluate adrenal function by measuring cortisol levels at baseline and at 30 and 60 minutesafter the administration of 250 micrograms of cosyntropin (Cortrosyn). Patients who have received exogenous corticosteroids immediately prior to performing the ACTH Stimulation Test will often have elevated baseline cortisol levels, which may lead to erroneous interpretation of test results. The notable exception is with dexamethasone.Normal Response: An increase in cortisol after stimulation by ACTHis normal. Post-stimulation cortisol concentration should be greater than 20 mcg/dL or the rate of rise from baseline cortisol should be greater than or equal to 9 mcg/dL.Patients with sepsis or septicshock: According to a study by Efren et al (CATHERINE 2000,283(8):1038-45), the ACTH Stimulation Test provides important prognostic information. This study defined 3 groups of patients with sepsis or septic shock: 1. Good Survival: Low basal cortisol (<or=34 mcg/dL) and high ACTH response (>9mcg/dL) 2. Intermediate Survival: Low basal cortisol (<34 mcg/dL) and low response to ACTH (<or=9 mcg/dL) OR High basal cortisol (>34 mcg/dL) or high ACTH response (>9 mcg/dL) 3.Poor Survival: High basal cortisol (>34 mcg/dL) and low ACTH response (<or=9 mcg/dL).Treatment of patients with relative adrenal dysfunction may be indicated based on test results and the cli nical condition of the patient. Additional information, including treatment recommendations, is available in critically ill patients, approved by the Pharmacy, Nutrition, and Therapeutics Committee on 04/20/2004 and available through the Pharmacy Policy and Procedure Section on The Source.Do not run this test if systemic hydrocortisone, methylprednisolone, prednisolone or prednisone has been administered within the past 24 hours. Draw baseline cortisol level just prior to cosyntropin administration. Administer cosyntropin 0.25 mg diluted in 2-5 mL of normal saline slow IV Push over a period of 2 minutes. Draw serum cortisol level 30 minutes after cosyntropin administration. Draw serum cortisollevel 60 minutes after cosyntropin administration.POCT-GLUCOSE [id number] 17:16:00 Test Item Value Reference Range Interpretation Comments POC-GLUCOSE METER 183 mg/dL 70-110 H TESTED AT [facility] 67 ([facility]) (test code = [place] 1538) [address] FLOW [id number] 16:58:00Flow Cytometry Report Case: [id number] Authorizing Provider: Peyton Ortiz MD Collected: 12/18/2017 0443 Ordering Location: [address] Received: 12/18/2017 0724 Service Pathologist: Lisa Tejada MD Specimen: Other PERIPHERAL BLOOD,FLOW CYTOMETRY:-NO INCREASE IN MYELOBLASTS-NO MONOTYPIC B CELL POPULATION-T CELLS WITH REDUCED CD4:CD8 RATIO (0.8)-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 Lymphocytes: Bright CD45+ lymphocytes comprise 37% of total cells. T cells show a CD4:CD8 ratio of 0.8 with normal expression of the jiang T cell markers CD2 and CD7; a subset of T cells show dimmer [id number], a finding which may reflect a reactive T cell population. NK cells comprise 13% of total cells. T cells with the immunophenotype of large granular lymphocytes (CD3+CD16/57+) comprise 4% of total cells. B cells are polytypic with a kappa:lambda ratio of 1.4. Myeloid/monocytic populations: As identified by CD45 and light scatter characteristics, granulocytes comprise the majority (55.7%) of cells analyzed, and CD14+ monocytes comprise 5.7% of total cells.The remaining events analyzed represent nonviable cells, non- hematolymphoid cells, and debris.These tests were developed and their pe rformance characteristics determined by [facility]. They have not been cleared or approved by the U.S. Food and Drug Administration. The FDA has determined that such clearance orapproval is not necessary. It should not be regarded as investigational or for research. This laboratory is certified under the Clinical Laboratory Improvement Amendments of 1988 ("CLIA") as qualified to perform high-complexity clinical testing.POCT-GLUCOSE METER 2017-12-18 12:03:00 Test Item Value Reference Range Interpretation Comments POC-GLUCOSE METER 226 mg/dL 70-110 H TESTED AT [place] [address] ([facility]) [facility] [address] POCT-GLUCOSE [id number] 10:58:00 Test Item Value Reference Range Interpretation Comments POC-GLUCOSE METER 190 mg/dL 70-110 H TESTED AT [facility] 6720 ([facility]) (test code = [facility] 1538) [address] [id number] 06:19:00 Test Item Value Reference Range Interpretation Comments CORTISOL, TOTAL ([facility]) (test code 6.5 ug/dL 3.7-19.4 = 2755) BASIC METABOLIC [id number] 05:54:00 Test Item Value Reference Range Interpretation Comments SODIUM ([facility]) 133 meq/L 136-145 L (test code = 381) POTASSIUM (BEAKER) 5.2 meq/L 3.5-5.1 H (test code = 379) CHLORIDE (BEAKER) 100 meq/L 98-107 (test code = 382) CO2 (BEAKER) (test 21 meq/L 22-29 L code = 355) BLOOD UREA NITROGEN 46 mg/dL 7-21 H (BEAKER) (test code = 354) CREATININE (BEAKER) 14.50 mg/dL 0.57-1.25 H (test code = 358) GLUCOSE RANDOM 195 mg/dL 70-105 H (BEAKER) (test code = 652) CALCIUM (BEAKER) 7.9 mg/dL 8.4-10.2 L (test code = 697) EGFR (BEAKER) (test 3 mL/min/1.73 ESTIMAT ED GFR IS code = 1092) sq m NOT ACCURATE CREATININE CLEARANCE IN PREDICTING GLOMERULAR FILTRATION RATE . ESTIMATED GFR I S NOT APPLICABLE FOR DIALYSIS PATIEN TS. CBC W/PLT COUNT & AUTO [id number] 05:42:00 Test Item Value Reference Range Interpretation Comments WHITE BLOOD CELL COUNT (BEAKER) 6.3 K/ L 3.5-10.5 (test code = 775) RED BLOOD CELL COUNT (BEAKER) 2.22 M/ L 3.93-5.22 L (test code = 761) HEMOGLOBIN (BEAKER) (test code = 6.6 GM/DL 11.2-15.7 L 410) HEMATOCRIT (BEAKER) (test code = 20.9 % 34.1-44.9 L 411) MEAN CORPUSCULAR VOLUME (BEAKER) 94.1 fL 79.4-94.8 (test code = 753) MEAN CORPUSCULAR HEMOGLOBIN 29.7 pg 25.6-32.2 (BEAKER) (test code = 751) MEAN CORPUSCULAR HEMOGLOBIN CONC 31.6 GM/DL 32.2-35.5 L (BEAKER) (test code = 752) RED CELL DISTRIBUTION WIDTH 14.3 % 11.7-14.4 (BEAKER) (test code = 412) PLATELET COUNT (BEAKER) (test 145 K/CU MM 150-450 L code = 756) MEAN PLATELET VOLUME (BEAKER) 9.2 fL 9.4-12.3 L (test code = 754) NUCLEATED RED BLOOD CELLS 0 /100 WBC 0-0 (BEAKER) (test code = 413) NEUTROPHILS RELATIVE PERCENT 50 % (BEAKER) (test code = 429) LYMPHOCYTES RELATIVE PERCENT 37 % (BEAKER) (test code = 430) MONOCYTES RELATIVE PERCENT 7 % (BEAKER) (test code = 431) EOSINOPHILS RELATIVE PERCENT 5 % (BEAKER) (test code = 432) BASOPHILS RELATIVE PERCENT 0 % (BEAKER) (test code = 437) NEUTROPHILS ABSOLUTE COUNT 3.17 K/ L 1.56-6.13 (BEAKER) (test code = 670) LYMPHOCYTES ABSOLUTE COUNT 2.36 K/ L 1.18-3.74 (BEAKER) (test code = 414) MONOCYTES ABSOLUTE COUNT (BEAKER) 0.47 K/ L 0.24-0.36 H (test code = 415) EOSINOPHILS ABSOLUTE COUNT 0.29 K/ L 0.04-0.36 (BEAKER) (test code = 416) BASOPHILS ABSOLUTE COUNT (BEAKER) 0.02 K/ L 0.01-0.08 (test code = 417) IMMATURE GRANULOCYTES-RELATIVE 1 % 0-1 PERCENT (BEAKER) (test code = 2801) CRYPTOCOCCAL [id number] 23:51:00 Test Item Value Reference Range Interpretation Comments CRYPTOCOCCAL ANTIGEN, SERUM Negative Negative, Interference (BEAKER) (test code = 1828) POCT-GLUCOSE [id number] 22:27:00 Test Item Value Reference Range Interpretation Comments POC-GLUCOSE METER 178 mg/dL 70-110 H TESTED AT [place] [address] ([facility]) (test code = [facility] 1538) [address] [id number] 19:41:00 Test Item Value Reference Range Interpretation Comments HAPTOGLOBIN (AKER) (test code = 190 mg/dL 14-258 366) POCT-GLUCOSE [id number] 18:17:00 Test Item Value Reference Range Interpretation Comments POC-GLUCOSE METER 169 mg/dL 70-110 H TESTED AT [place] [address] ([facility]) (test code = [facility] 1538) [address] CARCINOEMBRYONIC ANTIGEN (CEA)2017-12-17 16:36:00 Test Item Value Reference Range Interpretation Comments CARCINOEMBRYONIC ANTIGEN (BEAKER) 1.3 ng/mL 0.0-5.0 (test code = 685) [id number] 16:36:00 Test Item Value Reference Range Interpretation Comments FERRITIN (BEAKER) (test code = 361) 266 ng/mL 5-275 ALPHA FETOPROTEIN (AFP), TUMOR [id number] 16:36:00 Test Item Value Reference Range Interpretation Comments ALPHA-FETOPROTEIN (BEAKER) (test 2.7 ng/mL <10.0 code = 1094) VITAMIN B12 AND [id number] 16:36:00 Test Item Value Reference Range Interpretation Comments VITAMIN B12 (BEAKER) (test code = 261 pg/mL 213-816 774) FOLATE (BEAKER) (test code = 362) 3.2 ng/mL >=7.[address], ABDOMEN, LIVER EVALUATION, WITHOUT / WITH IV [id number] 16:10:00 Dialysis 05/23Reason for exam:->TRIPLE PHASE,FOLLOW UP LESIONSFINAL REPORT ABDOMINAL AND PELVIS CT DATED 12/17/2017 COMPARISON: October 29, 2017 CLINICAL INFORMATION: TRIPLE PHASE,FOLLOW UP LESIONS TECHNIQUE: Axial images of the abdomen and pelvis were obtained from diaphragm to the pubic symphysis with and without intravenous contrast. This exam was performed according to our departmental dose-optimization program, which includes automated exposure control, adjustment of the mA and/or kV according to patient size and/or use of interactive reconstruction technique. COMMENT: Nonspecific subcentimeter nodules are seen in both lung bases since prior study. There is bibasilar subsegmental atelectasis. Liver and spleen are enlarged. Liver byron sures approximately 23 cm in the right midclavicular line. Spleen measures 12.6 x 5.4 x 12.6 cm. Thesplenic, superior mesenteric, portal, and hepatic veins are patent. Main portal vein measures 1.8 cmin diameter. A 1.4 cm stable hypodense lesion seen in the right hepatic dome. The other previously noted hepatic lesions are not visualized. There is diffusely decreased attenuation in the segment IVb of the liver adjacent to the falciform ligament suggestive of focal fatty hepatic infiltrate. Gallbladder is surgically absent. No biliary dilatation is noted. Pancreas and adrenals are unremarkable.Both kidneys are atrophic consistent with end-stage renal disease. A transplant kidney is seen in the right lower quadrant abdomen. The small and large bowel are suboptimally evaluated secondary to lack of GI contrast. Diverticular disease is seen in the large bowel without diverticulitis. Small bowelis normal in caliber. Appendix is not visualized. Trace amount of ascites seen in the abdomen. Subcentimeter lymph nodes are seen in the periaortic and aortocaval retroperitoneum. IMPRESSION: 1. Hepatosplenomegaly.2. Stable hypodense lesion in the dome of the right hepatic lobe. Unable to visualize the rest of the previously noted liver lesions.3. End-stage renal disease with transplanted kidney.4. Trace ascites.5. Nonspecific nodular lesions in both lung bases no since prior study. Signed: Catrachita Cabral MDReport Verified Date/Time: 12/17/2017 16:10:53 Reading Location: [facility] C013Y CT Body ReadingRoom POCT-GLUCOSE [id number] 14:37:00 Test Item Value Reference Range Interpretation Comments POC-GLUCOSE METER 146 mg/dL 70-110 H TESTED AT [facility] 67[facility] (test code = [facility] 1538) [address] BASIC METABOLIC [id number] 14:19:00 Test Item Value Reference Range Interpretation Comments SODIUM (BEAKER) 131 meq/L 136-145 L (test code = 381) POTASSIUM (BEAKER) 4.8 meq/L 3.5-5.1 (test code = 379) CHLORIDE (BEAKER) 99 meq/L 98-107 (test code = 382) CO2 (BEAKER) (test 20 meq/L 22-29 L code = 355) BLOOD UREA NITROGEN 43 mg/dL 7-21 H (BEAKER) (test code = 354) CREATININE (BEAKER) 13.84 mg/dL 0.57-1.25 H (test code = 358) GLUCOSE RANDOM 133 mg/dL 70-105 H (BEAKER) (test code = 652) CALCIUM (BEAKER) 7.7 mg/dL 8.4-10.2 L (test code = 697) EGFR (BEAKER) (test 3 mL/min/1.73 ESTIMAT ED GFR IS code = 1092) sq m NOT ACCURATE CREATININE CLEARANCE IN PREDICTING GLOMERULAR FILTRATION RATE . ESTIMATED GFR I S NOT APPLICABLE FOR DIALYSIS PATIEN TS. IRON, TIBC, % SAT. (WITHOUT FERRITIN)2017-12-17 14:17:00 Test Item Value Reference Range Interpretation Comments IRON (BEAKER) (test code = 547) 27 ug/dL 40-160 L TOTAL IRON BINDING CAPACITY 190 ug/dL 250-450 L (BEAKER) (test code = 769) IRON % SATURATION (2) (BEAKER) 14 % 20-55 L (test code = 2590) [id number] 14:13:00 Test Item Value Reference Range Interpretation Comments PHOSPHORUS (BEAKER) (test code = 6.8 mg/dL 2.3-4.7 H 604) LACTATE DEHYDROGENASE (LDH)2017-12-17 14:13:00 Test Item Value Reference Range Interpretation Comments LACTATE DEHYDROGENASE (BEAKER) (test 162 U/L 125-220 code = 635) [id number] 14:13:00 Test Item Value Reference Range Interpretation Comments LIPASE (BEAKER) (test code = 749) 51 U/L 8-78 RETICULOCYTE [id number] 13:58:00 Test Item Value Reference Range Interpretation Comments RETICULOCYTE COUNT PCT (BEAKER) (test 2.2 % 0.5-1.7 H code = 575) POCT-GLUCOSE [id number] 11:37:00 Test Item Value Reference Range Interpretation Comments POC-GLUCOSE METER 169 mg/dL 70-110 H [facility] (test code = [facility] 1538) [id number] POCT-GLUCOSE [id number] 07:43:00 Test Item Value Reference Range Interpretation Comments POC-GLUCOSE METER 152 mg/dL 70-110 H TESTED AT [place] [address] [facility] (test code = [facility] 1538) [address] CBC W/PLT COUNT & AUTO [id number] 05:47:00 Test Item Value Reference Range Interpretation Comments WHITE BLOOD CELL COUNT (BEAKER) 8.2 K/ L 3.5-10.5 (test code = 775) RED BLOOD CELL COUNT (BEAKER) 2.49 M/ L 3.93-5.22 L (test code = 761) HEMOGLOBIN (BEAKER) (test code = 7.3 GM/DL 11.2-15.7 L 410) HEMATOCRIT (BEAKER) (test code = 23.8 % 34.1-44.9 L 411) MEAN CORPUSCULAR VOLUME (BEAKER) 95.6 fL 79.4-94.8 H (test code = 753) MEAN CORPUSCULAR HEMOGLOBIN 29.3 pg 25.6-32.2 (BEAKER) (test code = 751) MEAN CORPUSCULAR HEMOGLOBIN CONC 30.7 GM/DL 32.2-35.5 L (BEAKER) (test code = 752) RED CELL DISTRIBUTION WIDTH 14.6 % 11.7-14.4 H (BEAKER) (test code = 412) PLATELET COUNT (BEAKER) (test 175 K/CU MM 150-450 code = 756) MEAN PLATELET VOLUME (BEAKER) 9.0 fL 9.4-12.3 L (test code = 754) NUCLEATED RED BLOOD CELLS 0 /100 WBC 0-0 (BEAKER) (test code = 413) NEUTROPHILS RELATIVE PERCENT 54 % (BEAKER) (test code = 429) LYMPHOCYTES RELATIVE PERCENT 36 % (BEAKER) (test code = 430) MONOCYTES RELATIVE PERCENT 7 % (BEAKER) (test code = 431) EOSINOPHILS RELATIVE PERCENT 3 % (BEAKER) (test code = 432) BASOPHILS RELATIVE PERCENT 0 % (BEAKER) (test code = 437) NEUTROPHILS ABSOLUTE COUNT 4.40 K/ L 1.56-6.13 (BEAKER) (test code = 670) LYMPHOCYTES ABSOLUTE COUNT 2.96 K/ L 1.18-3.74 (BEAKER) (test code = 414) MONOCYTES ABSOLUTE COUNT (BEAKER) 0.55 K/ L 0.24-0.36 H (test code = 415) EOSINOPHILS ABSOLUTE COUNT 0.24 K/ L 0.04-0.36 (BEAKER) (test code = 416) BASOPHILS ABSOLUTE COUNT (BEAKER) 0.02 K/ L 0.01-0.08 (test code = 417) IMMATURE GRANULOCYTES-RELATIVE 1 % 0-1 PERCENT (BEAKER) (test code = 2801) BASIC METABOLIC [id number] 00:37:00 Test Item Value Reference Range Interpretation Comments SODIUM (BEAKER) 136 meq/L 136-145 (test code = 381) POTASSIUM (BEAKER) 4.9 meq/L 3.5-5.1 (test code = 379) CHLORIDE (BEAKER) 103 meq/L 98-107 (test code = 382) CO2 (BEAKER) (test 19 meq/L 22-29 L code = 355) BLOOD UREA NITROGEN 47 mg/dL 7-21 H (BEAKER) (test code = 354) CREATININE (BEAKER) 14.49 mg/dL 0.57-1.25 H (test code = 358) GLUCOSE RANDOM 148 mg/dL 70-105 H (BEAKER) (test code = 652) CALCIUM (BEAKER) 7.8 mg/dL 8.4-10.2 L (test code = 697) EGFR (BEAKER) (test 3 mL/min/1.73 ESTIMAT ED GFR IS code = 1092) sq m NOT ACCURATE CREATININE CLEARANCE IN PREDICTING GLOMERULAR FILTRATION RATE . ESTIMATED GFR I S NOT APPLICABLE FOR DIALYSIS PATIEN TS. BODY FLUID CELL COUNT WITH [id number] 23:42:00 Test Item Value Reference Range Interpretation Comments APPEARANCE FLUID (BEAKER) Slightly Hazy Clear A (test code = 510) COLOR FLUID (BEAKER) (test Straw Colorless, Straw code = 511) RBC FLUID (BEAKER) (test code 4 /cu mm <=1 H = 513) ADJUSTED WBC FLUID (BEAKER) 146 /cu mm <=5 H (test code = 1691) LINING CELLS (BEAKER) (test 4 /cu mm <=1 H code = 1590) NEUTROPHILS FLUID (BEAKER) 10 % (test code = 1656) LYMPHS FLUID (BEAKER) (test 20 % code = 488) MONO/MACROPHAGE FLUID (BEAKER) 70 % (test code = 489) EOSINOPHILS FLUID (BEAKER) 0 % (test code = 491) BASO FLUID (BEAKER) (test code 0 % = 492) CONTAINER BODY FLUID (BEAKER) EDTA Tube (test code = 2873) POCT-GLUCOSE [id number] 21:42:00 Test Item Value Reference Range Interpretation Comments POC-GLUCOSE METER 130 mg/dL 70-110 H TESTED AT [facility] 6720 (BEAKER) (test code = [place] 1538) [address] POCT-GLUCOSE [id number] 19:41:00 Test Item Value Reference Range Interpretation Comments POC-GLUCOSE METER 103 mg/dL 70-110 TESTED AT [facility] 6720 (BEAKER) (test code = [place] 1538) [address] BASIC METABOLIC [id number] 17:51:00 Test Item Value Reference Range Interpretation Comments SODIUM (BEAKER) 135 meq/L 136-145 L (test code = 381) POTASSIUM (BEAKER) 6.5 meq/L 3.5-5.1 HH (test code = 379) CHLORIDE (BEAKER) 103 meq/L 98-107 (test code = 382) CO2 (BEAKER) (test 19 meq/L 22-29 L code = 355) BLOOD UREA NITROGEN 44 mg/dL 7-21 H (BEAKER) (test code = 354) CREATININE (BEAKER) 14.40 mg/dL 0.57-1.25 H (test code = 358) GLUCOSE RANDOM 95 mg/dL 70-105 (BEAKER) (test code = 652) CALCIUM (BEAKER) 7.9 mg/dL 8.4-10.2 L (test code = 697) EGFR (BEAKER) (test 3 mL/min/1.73 ESTIMAT ED GFR IS code = 1092) sq m NOT ACCURATE CREATININE CLEARANCE IN PREDICTING GLOMERULAR FILTRATION RATE . ESTIMATED GFR I S NOT APPLICABLE FOR DIALYSIS PATIEN TS. RAD, CHEST, 1 VIEW, NON [id number] 17:44:00Dialysis 05/23Reason for exam:- >FEVERReason for exam:->HYPOTENSIONShould this be performed at the bedside?->YesFINAL REPORT INDICATION: FEVERHYPOTENSION TECHNIQUE: Chest radiograph, singleview, portable technique. FINDINGS / IMPRESSION: No discrete consolidation that would clearly indicate pneumonia.Enlarged heart shadow.No pneumothorax or pleural effusion demonstrated.Osseous structures unremarkable. Signed: Angi Pradhan MDReport Verified Date/Time: 12/16/2017 17:44:26 Reading Location: [address] Ortho Consult Reading Room LACTIC ACID, VENOUS, WHOLE [id number] 17:42:00 Test Item Value Reference Range Interpretation Comments LACTATE BLOOD VENOUS 1.3 mmol/L 0.5-2.2 Specime n slightly (2) (BEAKER) (test hemolyzed code = 2875) Effective 09/13/2015: Units/Reference Range ChangeNew: 0.5-2.2 mmol/L Previous: 5-20 mg/dLURINALYSIS W/ REFLEX URINE [id number] 17:40:00 Test Item Value Reference Range Interpretation Comments COLOR (BEAKER) (test code = 470) Light Yellow CLARITY (BEAKER) (test code = Hazy 469) SPECIFIC GRAVITY UA (BEAKER) 1.004 1.001-1.035 (test code = 468) PH UA (BEAKER) (test code = 467) 8.0 5.0-8.0 PROTEIN UA (BEAKER) (test code = 300 mg/dL Negative A 464) GLUCOSE UA (BEAKER) (test code = 70 mg/dL Negative A 365) KETONES UA (BEAKER) (test code = Negative Negative 371) BILIRUBIN UA (BEAKER) (test code Negative Negative = 462) BLOOD UA (BEAKER) (test code = Trace Negative A 461) NITRITE UA (BEAKER) (test code = Negative Negative 465) LEUKOCYTE ESTERASE UA (BEAKER) Negative Negative (test code = 466) UROBILINOGEN UA (BEAKER) (test 0.2 mg/dL 0.2-1.0 code = 463) RBC UA (BEAKER) (test code = < /HPF 519) WBC UA (BEAKER) (test code = 1 /HPF 520) BACTERIA (BEAKER) (test code = Rare 517) SQUAMOUS EPITHELIAL (BEAKER) 10 /HPF (test code = 516) SOURCE(BEAKER) (test code = 2795) COMPREHENSIVE METABOLIC [id number] 16:37:00 Test Item Value Reference Range Interpretation Comments TOTAL PROTEIN 7.5 gm/dL 6.0-8.3 (BEAKER) (test code = 770) ALBUMIN (BEAKER) 3.3 g/dL 3.5-5.0 L (test code = 1145) ALKALINE PHOSPHATASE 67 U/L 40-150 (BEAKER) (test code = 346) BILIRUBIN TOTAL 0.8 mg/dL 0.2-1.2 (BEAKER) (test code = 377) SODIUM (BEAKER) (test 134 meq/L 136-145 L code = 381) POTASSIUM (BEAKER) 6.0 meq/L 3.5-5.1 HH (test code = 379) CHLORIDE (BEAKER) 103 meq/L 98-107 (test code = 382) CO2 (BEAKER) (test 22 meq/L 22-29 code = 355) BLOOD UREA NITROGEN 45 mg/dL 7-21 H (BEAKER) (test code = 354) CREATININE (BEAKER) 14.34 mg/dL 0.57-1.25 H (test code = 358) GLUCOSE RANDOM 109 mg/dL 70-105 H (BEAKER) (test code = 652) CALCIUM (BEAKER) 7.6 mg/dL 8.4-10.2 L (test code = 697) AST (SGOT) (BEAKER) 8 U/L 5-34 (test code = 353) ALT (SGPT) (BEAKER) 8 U/L 6-55 (test code = 347) EGFR (BEAKER) (test 3 mL/min/1.73 ESTIMAT ED GFR IS code = 1092) sq m NOT ACCURATE CREATININE CLEARANCE IN PREDICTING GLOMERULAR FILTRATION RATE . ESTIMATED GFR I S NOT APPLICABLE FOR DIALYSIS PATIEN TS. CBC W/PLT COUNT & AUTO [id number] 16:15:00 Test Item Value Reference Range Interpretation Comments WHITE BLOOD CELL COUNT (BEAKER) 9.2 K/ L 3.5-10.5 (test code = 775) RED BLOOD CELL COUNT (BEAKER) 2.36 M/ L 3.93-5.22 L (test code = 761) HEMOGLOBIN (BEAKER) (test code = 6.9 GM/DL 11.2-15.7 L 410) HEMATOCRIT (BEAKER) (test code = 21.9 % 34.1-44.9 L 411) MEAN CORPUSCULAR VOLUME (BEAKER) 92.8 fL 79.4-94.8 (test code = 753) MEAN CORPUSCULAR HEMOGLOBIN 29.2 pg 25.6-32.2 (BEAKER) (test code = 751) MEAN CORPUSCULAR HEMOGLOBIN CONC 31.5 GM/DL 32.2-35.5 L (BEAKER) (test code = 752) RED CELL DISTRIBUTION WIDTH 14.6 % 11.7-14.4 H (BEAKER) (test code = 412) PLATELET COUNT (BEAKER) (test 152 K/CU MM 150-450 code = 756) MEAN PLATELET VOLUME (BEAKER) 8.3 fL 9.4-12.3 L (test code = 754) NUCLEATED RED BLOOD CELLS 0 /100 WBC 0-0 (BEAKER) (test code = 413) NEUTROPHILS RELATIVE PERCENT 60 % (BEAKER) (test code = 429) LYMPHOCYTES RELATIVE PERCENT 32 % (BEAKER) (test code = 430) MONOCYTES RELATIVE PERCENT 5 % (BEAKER) (test code = 431) EOSINOPHILS RELATIVE PERCENT 2 % (BEAKER) (test code = 432) BASOPHILS RELATIVE PERCENT 0 % (BEAKER) (test code = 437) NEUTROPHILS ABSOLUTE COUNT 5.53 K/ L 1.56-6.13 (BEAKER) (test code = 670) LYMPHOCYTES ABSOLUTE COUNT 2.89 K/ L 1.18-3.74 (BEAKER) (test code = 414) MONOCYTES ABSOLUTE COUNT (BEAKER) 0.49 K/ L 0.24-0.36 H (test code = 415) EOSINOPHILS ABSOLUTE COUNT 0.18 K/ L 0.04-0.36 (BEAKER) (test code = 416) BASOPHILS ABSOLUTE COUNT (BEAKER) 0.02 K/ L 0.01-0.08 (test code = 417) IMMATURE GRANULOCYTES-RELATIVE 1 % 0-1 PERCENT (BEAKER) (test code = 2801) CMV PCR, [id number] 14:34:00 Test Item Value Reference Range Interpretation Comments CMV VIRAL LOAD - Negative or below the NEGATIVE (BEAKER) (test linear range of the code = 2558) assay (<375 copies/mL) Cytomegalovirus (CMV) infection can cause significant disease in immunosuppressed patients. However,it is common for CMV to manifest as a limited infection which is of no clinical significance in immunosuppressed patients or in healthy individuals.Viral load measurements are helpful to identify clinical CMV infection and to guide the pre-emptive management of antiviral therapy. For treatment of CMVinfection due to reactivation in transplant recipients, a threshold between 4,000 and 5,000 copies/mL is suggested. For treatment of primary CMV infection, a lower threshold can be used.CMV infection may also be monitored using weekly serial measurements. Serial measurements of CMV DNA viral load canbe evaluated by identifying a 10-fold change, as well as assessing the CMV DNA viral load and the clinical context for each patient.The plasma CMV DNA viral load was detected using quantitative polymerase chain reaction and fluorescent monitoring of a specific hybridized probe. Genetic variation and ot her factors can affect the accuracy of nucleic acid testing. Therefore, the results should be interpreted in light of clinical data. A negative result may not exclude the presence of CMV disease.This test was developed and its performance characteristics determined by the [facility], Section of Molecular Pathology. It has not been cleared or approved by the U.S. Food and Drug Administration (FDA), since FDA approval is not required for clinical use of the test. Validation was done as required by The Clinical Laboratory Improvement Amendments of 1988.CT, ABDOMEN, WITHOUT 2017-10-29 12:18:00Dialysis 05/23FINAL REPORT CT scan of the abdomen. CLINICAL HISTORY: Assess hepatic lesions. COMPARISON STUDY: April 29, 2017. TECHNIQUE: Contiguous helical slices were acquired through theabdomen both pre and post administration of intravenous contrast in a dynamic fashion. No oral contrast was administered. This exam was performed according to our department dose optimization program which includes automated exposure control, adjustment of the mA and/or kV according to the patient's size and/or use of iterative reconstruction technique. FINDINGS: Atelectatic changes are seen in the lung bases. Cardiomegaly is identified. The liver demonstrates a stable multifocal lesions. They include a 1.7 cm hypervascular lesion in the medial segment of the left lobe adjacent to the falciform ligament, two hypervascular lesions in the right hepatic dome measuring 1.9 and 1.7 cm, a 1 cm hypervascular lesion is seen in the anterior segment of the right lobe and a 1.1 cm lesion in the posterior segment of the right lobe inferiorly. The majority of the lesions demonstrate washout. There is a stable tiny low- attenuation lesion in the posterior segment of the right lobe, possibly a tiny cyst. No new lesions are seen. Cholecystectomy clips are noted with no biliary dilatation. There is mild ascites. The spleen is enlarged measuring 13.5 cm in length. The pancreas and adrenal glands are unremarkable. Both kidneys are atrophic in nature. There are no dilated loops of bowel seen to suggest obstruction. Diverticulosis is seen without evidence of diverticulitis. A transplant kidney is partially seen in the right iliac fossa. The aorta is normal in caliber. Atherosclerosis is seen. Bone windows demonstrate degenerative changes. IMPRESSION:1. Multifocal hepatic lesions which are stable from previous.The differential is unchanged and includes adenomas and malignant lesions.2. Status post cholecystectomy.3. Mild ascites. Splenomegaly.4. Atrophic [place] kidneys and partially visualized transplant kidney.5. Overall, no significant change. Signed: Nataly Ludwig MDReport Verified Date/Time: 10/29/2017 12:18:10 Reading Location: [address] Radiology Reading Room BASI METABOLIC [id number] 10:57:00 Test Item Value Reference Range Interpretation Comments SODIUM (BEAKER) 138 meq/L 136-145 (test code = 381) POTASSIUM (BEAKER) 4.4 meq/L 3.5-5.1 (test code = 379) CHLORIDE (BEAKER) 102 meq/L 98-107 (test code = 382) CO2 (BEAKER) (test 21 meq/L 22-29 L code = 355) BLOOD UREA NITROGEN 46 mg/dL 7-21 H (BEAKER) (test code = 354) CREATININE (BEAKER) 11.74 mg/dL 0.57-1.25 H (test code = 358) GLUCOSE RANDOM 189 mg/dL 70-105 H (BEAKER) (test code = 652) CALCIUM (BEAKER) 8.7 mg/dL 8.4-10.2 (test code = 697) EGFR (BEAKER) (test 3 mL/min/1.73 ESTIMAT ED GFR IS code = 1092) sq m NOT ACCURATE CREATININE CLEARANCE IN PREDICTING GLOMERULAR FILTRATION RATE . ESTIMATED GFR I S NOT APPLICABLE FOR DIALYSIS PATIEN TS. [id number] 10:12:00 Test Item Value Reference Range Interpretation Comments PROTIME (BEAKER) (test code = 14.1 seconds 11.7-14.7 759) INR (BEAKER) (test code = 370) 1.1 <=5.9 PARTIAL THROMBOPLASTIN TIME 29.5 seconds 22.5-36.0 (BEAKER) (test code = 760) RECOMMENDED COUMADIN/WARFARIN INR THERAPY RANGESSTANDARD DOSE: 2.0 - 3.0 Includes: PROPHYLAXIS forvenous thrombosis, systemic embolization; TREATMENT for venous thrombosis and/or pulmonary embolus.HIGH RISK: Target INR is 2.5-3.5 for patients with mechanical heart valves.CBC W/PLT COUNT & AUTO DIFFERENTIAL 2017-06-04 10:07:00 Test Item Value Reference Range Interpretation Comments WHITE BLOOD CELL COUNT (BEAKER) 9.9 K/ L 3.5-10.5 (test code = 775) RED BLOOD CELL COUNT (BEAKER) 3.14 M/ L 3.93-5.22 L (test code = 761) HEMOGLOBIN (BEAKER) (test code = 9.1 GM/DL 11.2-15.7 L 410) HEMATOCRIT (BEAKER) (test code = 27.8 % 34.1-44.9 L 411) MEAN CORPUSCULAR VOLUME (BEAKER) 88.5 fL 79.4-94.8 (test code = 753) MEAN CORPUSCULAR HEMOGLOBIN 29.0 pg 25.6-32.2 (BEAKER) (test code = 751) MEAN CORPUSCULAR HEMOGLOBIN CONC 32.7 GM/DL 32.2-35.5 (BEAKER) (test code = 752) RED CELL DISTRIBUTION WIDTH 14.2 % 11.7-14.4 (BEAKER) (test code = 412) PLATELET COUNT (BEAKER) (test 206 K/CU MM 150-450 code = 756) MEAN PLATELET VOLUME (BEAKER) 8.8 fL 9.4-12.3 L (test code = 754) NUCLEATED RED BLOOD CELLS 0 /100 WBC 0-0 (BEAKER) (test code = 413) NEUTROPHILS RELATIVE PERCENT 42 % (BEAKER) (test code = 429) LYMPHOCYTES RELATIVE PERCENT 49 % (BEAKER) (test code = 430) MONOCYTES RELATIVE PERCENT 6 % (BEAKER) (test code = 431) EOSINOPHILS RELATIVE PERCENT 2 % (BEAKER) (test code = 432) BASOPHILS RELATIVE PERCENT 0 % (BEAKER) (test code = 437) NEUTROPHILS ABSOLUTE COUNT 4.11 K/ L 1.56-6.13 (BEAKER) (test code = 670) LYMPHOCYTES ABSOLUTE COUNT 4.88 K/ L 1.18-3.74 H (BEAKER) (test code = 414) MONOCYTES ABSOLUTE COUNT (BEAKER) 0.57 K/ L 0.24-0.36 H (test code = 415) EOSINOPHILS ABSOLUTE COUNT 0.20 K/ L 0.04-0.36 (BEAKER) (test code = 416) BASOPHILS ABSOLUTE COUNT (BEAKER) 0.03 K/ L 0.01-0.08 (test code = 417) IMMATURE GRANULOCYTES-RELATIVE 1 % 0-1 PERCENT (BEAKER) (test code = 2801) CT, ABDOMEN, [id number] 11:49:00Dialysis 05/23Liver protocol, triple phase CT attn: LiverFINAL REPORT TECHNIQUE: CT of the abdomen WITHOUT and WITH intravenous contrast and WITHOUT oral contrast. Dose modulation, iterative reconstruction, and/or weight-based adjustment of the mA/kV was utilized to reduce the radiation dose to as low as reasonably achievable. INDICATION: 46-year-old woman with right hepatic lobe lesions. COMPARISON: Abdomen and pelvis CTA 03/19/2017. FINDINGS: LOWER THORAX: Linear scarring and/or subsegmental atelectasis in the left lung base. LIVER: 0.5 cm hypodensity in segment VII is too small to characterize, but likely represents a cyst. Multiple (approximately six) arterially enhancing lesions with washout on subsequent postcontrast sequences measure (all seen on axial postcontrast arterial series: *1.8 cm in segment VIII (image 16)*1.6 cmin segment VII (image 18)*1.7 cm in segment IVB (image 47)*1 cm in segment V (image 51)*1.1 cm in seg ment V (image 68)*1 cm in segment V (image 79) BILIARY: Prior cholecystectomy. No biliary ductal dilatation.SPLEEN: Mildly enlarged, measuring 13.5 cm in the craniocaudal dimension.PANCREAS: No focal masses or ductal dilatation. ADRENALS: No adrenal nodules.KIDNEYS/URETERS: Atrophic [place] kidneys bilaterally. Transplant kidney in the right lower quadrant. No hydronephrosis or stones. Few subcentimeter hypodensities in the [place] right kidney are too small to characterize. PERITONEUM/RETROPERITONEUM: Partially visualized peritoneal dialysis catheter. Trace ascites. Trace pneumoperitoneum in the upper abdomen.LYMPH NODES: No lymphadenopathy.VESSELS: Mild atherosclerotic vascular calcifications without aneurysm. GI TRACT: No distention or wall thickening. Scattered colonic diverticula. BONES AND SOFT TISSUES: Degenerative changes of the visualized spine. IMPRESSION:Multiple enhancing lesions in both lobes of the liver. Differential considerations include benign lesions (such as adenomas) versus malignant lesions (metastases or multifocal hepatocellular carcinoma). Percutaneous biopsy of the most accessible liver lesion may be obtained. Trace ascites and trace pneumoperitoneum, likely related to peritoneal dialysis. Signed: Steve Reid MDReport Verified Date/Time: 04/29/2017 11:49:17 Siddhartha saravia Location: [facility] Diagnostic Imaging Reading Room - [place] [address]120 AB SPECIFICITY CLASS [id number] 14:59:00 Test Item Value Reference Range Interpretation Comments DATE OF SERUM (BEAKER) 075683 (test code = 2289) SERUM # (BEAKER) (test 352982 code = 2290) AB SPECIFICITY CLASS II See Scanned Report (BEAKER) (test code = 2430) HLA [id number] 11:55:00 Test Item Value Reference Range Interpretation Comments HLA RESULT (BEAKER) (test See Scanned Report code = 2311) HLA-A AG1 (BEAKER) (test code = 2521) HLA-A AG2 (BEAKER) (test code = 2522) HLA-B AG1 (BEAKER) (test code = 2523) HLA-B AG2 (BEAKER) (test code = 2524) HLA-C AG1 (BEAKER) (test code = 2525) HLA-C AG2 (BEAKER) (test code = 2526) HLA-DR AG1 (BEAKER) (test code = 2518) HLA-DR AG2 (BEAKER) (test code = 2519) HLA-DQ AG1 (BEAKER) (test code = 2514) HLA-DQ AG2 (BEAKER) (test code = 2515) HLA-DRW (BEAKER) (test code = 2583) FLOW PRA CLASS I AND [id number] 09:43:00 Test Item Value Reference Range Interpretation Comments DATE OF SERUM (BEAKER) [id number] (test code = 2289) SERUM # (BEAKER) (test 230683 code = 2290) FLOW PRA CLASS I AND II See Scanned Report (test code = 2421) HLA TESTING (EXTERNAL)2017-03-29 14:00:00 Test Item Value Reference Range Interpretation Comments HLA TESTING (EXTERNAL) See Separate Report (test code = 3209) CT, CTA [id number] 16:00:00Dialysis 05/23Addendum BeginsREPORT STATUS:A Addendum: I agree with the previously described non vascular findings by Dr. Ventura with the following additions. There are two enhancing lesions identified within the superior right hepatic lobe measuring 1.4 and 1.5 cm. These lesions are only included on the late arterial phase and incompletely characterized on this examination. Further evaluation with dedicated contrast enhanced liver CT or MRI is recommended. Scattered abdominopelvic ascites,not unexpected in this patient on peritoneal dialysis with visualized PD catheter. No organized fluid collection identified. Signed: Jerome Wilde MDReport Verified Date/Time: 03/20/2017 16:00:53 Reading Location: [place] [address] Angio Body Reading RoomAddendum EndsFINAL REPORT CT angiography of the abdominal aorta and pelvic arteries, 19 March 2017 INDICATION: This is a 46 year old female with end-stage renal disease presents for pretransplant assessment. This study is performed in an attempt to avoid an invasive procedure. TECHNIQUE: Spiral acquisition before anterior intravenous contrast administration using a [employer] multidetector CT scanner. Images were obtained before and during the dynamic passage of intravenous contrast material. Multi-planar 3-D volume-rendering reconstruction was performed using an independent workstation interactively by the interpreting physician as well as the 3-D specialist for optimal visualisation of the abdominal aorta, pelvic arteries, and its proximal branches. Please refer to the contrast sheet scanned in the EPIC system for the amount and route of contrast given. This exam was performed according to our departmental dose- optimisation programme, which includes automated exposure control, adjustment of the mA and/or kV according to patient size and/or use of iterative reconstruction technique. Dose modulation, iterative reconstruction,and/or weight based adjustment of the mA/kV was utilized to reduce the radiation dose to as low as reasonably achievable. FINDINGS: VASCULAR: The abdominal aorta is normal in course, calibre and contour. There is some scattered calcific atherosclerosis seen in the infrarenal abdominal aorta. No aneurysmal dilation is seen. There is no evidence of acute aortic pathology, specifically, there is no dissection, intramural hematoma, or contained rupture. Quantitative dimensions of the abdominal aorta are as follows: 2.0 cm at the mesenteric segment; 1.7 cm at the renal segment,; and 1.5 cm at the aortic bifurcation. The common iliac, external iliac, common femoral, and the visualized superficial femoral arteries, bilaterally, are widely patent, except for minimal eccentric calcification for example in the distal right common iliac artery. [employer] dimensions of the left and the right external iliac arteries are 6 - 7 and 7 - 8 mm, respectively. Similarly, the associated pelvic veins are patent with no venous thrombosis identified. [employer] dimensions of the left and the right external iliac veins are 12 and 12 mm, respectively. Patient is post renal transplantation. The transplant artery is located approximately 4.7 cm from the takeoff of the right external iliac artery. The transplant renal vein is located slightly more inferiorly. Both the transplanted artery and vein is seen to be patent with no stenosis identified. Single [place] left and right renal arteries are seen that are patent. The celiac axis, SMA, DIMAS are widely patent. NON-VASCULAR:- The lung bases are unremarkable. Some dependent changes are seen. No pleural effusion is identified. In the abdomen, the liver and spleen appears unremarkable. The liver edge is smooth. There is two patchy enhancing structure is identified, at image 10 in the superior aspect of the liver. This may represent vascular shunting. Anaddendum will be dictated thereafter, if needed. Some perihepatic ascites is noted in the site is also noted inferior to the spleen. No acute renal pathology is seen and the kidneys are atrophic consistent with end-stage renal disease status. No hydronephrosis or perirenal fluid collection is seen. Patient is post renal transplantation and the transplant kidney is identified in the right iliac fossa.No hydronephrosis or perirenal fluid collection is seen. The adrenal glands are not enlarged. The pancreas appears unremarkable. Patient is post cholecystectomy. Bowel is not well assessed by CT angiography as enteric contrast is not given. No obvious bowel dilation is identified. No free air is seen in the abdomen and pelvis. A dialysis catheter is seen, with tip in the left iliac fossa. Some ascites / free fluid is identified in dependent portion of the pelvis. The bladder appears unremarkable. The uterus is identified. No obvious abnormal adnexal masses seen though CT is not optimised in the assessment of pelvic gynecological structures. No acute bony pathology is identified. CONCLUSIONS: 1.The abdominal aorta is normal in course, calibre and contour. There is no evidence of acute aortic pathology, specifically, there is no dissection, intramural hematoma, or contained rupture. Quantitative dimension of the abdominal aorta are as noted. The pelvic arteries and veins are widely patent with no arterial stenosis or venous thrombosis identified. Talent Development Director dimensions of the left and the right external iliac arteries and veins are as described above. 2. Widely patent mesenteric arteries. Patent [place] renal arteries. The transplant artery and vein are not identified connecting tothe right external iliac artery and vein that is patent with no venous thrombosis identified. 3. Other findings as described above. 4. An addendum will be dictated regarding the non-vascular findingsby the Transmission System Operator Radiologist. Signed: Harmeet Ventura MDReport Verified Date/Time: 03/19/2017 14:38:21 Reading Location: [place] [address] Cardiology MRI Electronically signed by: Navi CARTER 03/20/2017 04:00 PMURINE [id number] 09:43:00 Test Item Value Reference Range Interpretation Comments CULTURE (BEAKER) (test 70-79,000 col/mL skin code = 1095) dawna CYTOMEGALOVIRUS ANTIBODY, [id number] 12:49:00 Test Item Value Reference Range Interpretation Comments CYTOMEGALOVIRUS IGG ANTIBODY Positive (BEAKER) (test code = 790) CYTOMEGALOVIRUS ANTIBODY, [id number] 12:49:00 Test Item Value Reference Range Interpretation Comments CYTOMEGALOVIRUS IGM ANTIBODY Negative (BEAKER) (test code = 816) EBV-VCA ANTIBODY, [id number] 12:49:00 Test Item Value Reference Range Interpretation Comments SEDRICK-SHAY VCA IGG (BEAKER) (test Positive code = 983) EBV-VCA ANTIBODY, [id number] 12:49:00 Test Item Value Reference Range Interpretation Comments SEDRICK-SHAY VCA IGM (BEAKER) (test Negative code = 984) VARICELLA ZOSTER ANTIBODY, [id number] 12:42:00 Test Item Value Reference Range Interpretation Comments VARICELLA ZOSTER IGG (AL) (BEAKER) 6.8 Al (test code = 3197) VARICELLA ZOSTER RESULT INTERPRETATIONS: <=0.8 Al Nonreactive: Presumed non-immune to VZV 0.9-1.0 Al Equivocal >=1.1 Al Reactive: Presumed immune to [id number] 05:36:00 Test Item Value Reference Range Interpretation Comments RPR SCREEN (BEAKER) (test code = Nonreactive Nonreactive 420) URINALYSIS W/ [id number] 14:30:00 Test Item Value Reference Range Interpretation Comments COLOR (BEAKER) (test code = 470) Light Yellow CLARITY (BEAKER) (test code = Clear 469) SPECIFIC GRAVITY UA (BEAKER) 1.008 1.001-1.035 (test code = 468) PH UA (BEAKER) (test code = 467) 7.5 5.0-8.0 PROTEIN UA (BEAKER) (test code = 600 mg/dL Negative A 464) GLUCOSE UA (BEAKER) (test code = 150 mg/dL Negative A 365) KETONES UA (BEAKER) (test code = Negative Negative 371) BILIRUBIN UA (BEAKER) (test code Negative Negative = 462) BLOOD UA (BEAKER) (test code = Trace Negative A 461) NITRITE UA (BEAKER) (test code = Negative Negative 465) LEUKOCYTE ESTERASE UA (BEAKER) Negative Negative (test code = 466) UROBILINOGEN UA (BEAKER) (test 0.2 mg/dL 0.2-1.0 code = 463) RBC UA (BEAKER) (test code = 1 /HPF 519) WBC UA (BEAKER) (test code = 5 /HPF 520) BACTERIA (BEAKER) (test code = Few 517) SQUAMOUS EPITHELIAL (BEAKER) 3 /HPF (test code = 516) CASTS (BEAKER) (test code = 2 /LPF 1579) SOURCE(BEAKER) (test code = 5075) HEMOGLOBIN [id number] 12:35:00 Test Item Value Reference Range Interpretation Comments HEMOGLOBIN A1C (BEAKER) (test code = 5.6 % 4.3-6.1 368) HEPATITIS B SURFACE [id number] 11:22:00 Test Item Value Reference Range Interpretation Comments HEPATITIS B SURFACE ANTIGEN (2) Nonreactive Nonreactive (BEAKER) (test code = 2585) HEPATITIS B SURFACE [id number] 11:22:00 Test Item Value Reference Range Interpretation Comments HEPATITIS B SURFACE ANTIBODY 164.7 mIU/mL <8.0 H (BEAKER) (test code = 647) HEPATITIS B CORE ANTIBODY, [id number] 11:22:00 Test Item Value Reference Range Interpretation Comments HEPATITIS B CORE IGM ANTIBODY Nonreactive Nonreactive (BEAKER) (test code = 645) HEPATITIS C [id number] 11:22:00 Test Item Value Reference Range Interpretation Comments HEPATITIS C ANTIBODY (BEAKER) Nonreactive Nonreactive (test code = 367) HIV-1 ANTIGEN WITH HIV-1/2 [id number] 11:22:00 Test Item Value Reference Range Interpretation Comments HIV-1 ANTIGEN WITH HIV 1\\T\\2 Nonreactive Nonreactive ANTIBODY (2) (BEAKER) (test code = 2586) PTH, [id number] 11:07:00 Test Item Value Reference Range Interpretation Comments PARATHYROID HORMONE INTACT 489.0 pg/mL 8.5-72.5 H (BEAKER) (test code = 577) URIC [id number] 11:01:00 Test Item Value Reference Range Interpretation Comments URIC ACID (BEAKER) (test code = 8.9 mg/dL 2.6-7.2 H 773) [id number] 11:01:00 Test Item Value Reference Range Interpretation Comments PHOSPHORUS (BEAKER) (test code = 6.7 mg/dL 2.3-4.7 H 604) LIPID [id number] 11:01:00 Test Item Value Reference Range Interpretation Comments TRIGLYCERIDES (BEAKER) (test code = 727 mg/dL 540) CHOLESTEROL (BEAKER) (test code = 204 mg/dL 631) HDL CHOLESTEROL (BEAKER) (test code 28 mg/dL = 976) Calculated LDL not valid if triglyceride >400 mg/dLTriglyceride Reference Range: Low Risk <150 Borderline 150-199 High Risk 200-499 Very High Risk >=500Cholesterol Reference Range: Low Risk <200 Borderline 200-239 High Risk >240HDL Cholesterol Reference Range: Low Risk >=60 High Risk <40LDL Cholesterol ReferenceRange: Optimal <100 Near Optimal 100-129 Borderline 130-159 High 160-189 Very High >=190GAMMA GLUTAMYL TRANSFERASE (GGT)2017-03-05 11:01:00 Test Item Value Reference Range Interpretation Comments GAMMA GLUTAMYL TRANSFERASE (BEAKER) 37 U/L 9-64 (test code = 364) LACTATE DEHYDROGENASE (LDH)2017-03-05 11:01:00 Test Item Value Reference Range Interpretation Comments LACTATE DEHYDROGENASE (BEAKER) (test 280 U/L 125-220 H code = 635) [id number] 10:25:00 Test Item Value Reference Range Interpretation Comments PROTIME (BEAKER) (test code = 14.1 seconds 11.7-14.7 759) INR (BEAKER) (test code = 370) 1.1 <=5.9 PARTIAL THROMBOPLASTIN TIME 33.8 seconds 22.5-36.0 (BEAKER) (test code = 760) RECOMMENDED COUMADIN/WARFARIN INR THERAPY RANGESSTANDARD DOSE: 2.0 - 3.0 Includes: PROPHYLAXIS forvenous thrombosis, systemic embolization; TREATMENT for venous thrombosis and/or pulmonary embolus.HIGH RISK: Target INR is 2.5-3.5 for patients with mechanical heart valves.[id number] 13:48:00 Test Item Value Reference Range Interpretation Comments POC-HEMATOCRIT 29 % 36-45 L TESTED AT [place] [address] (BEAKER) (test code = [facility] 1857) [id number] 13:48:00 Test Item Value Reference Range Interpretation Comments POC-HEMOGLOBIN 9.9 g/dL 12.0-15.0 L TESTED AT [place] [address] (BEAKER) (test code [employer] [facility] [facility] [employer] = 1856) [place] [address] HEPATITIS B SURFACE [id number] 16:44:00 Test Item Value Reference Range Interpretation Comments HEPATITIS B SURFACE ANTIGEN (2) Nonreactive Nonreactive (BEAKER) (test code = 2585) HEPATITIS B SURFACE [id number] 16:44:00 Test Item Value Reference Range Interpretation Comments HEPATITIS B SURFACE ANTIBODY 151.8 mIU/mL <8.0 H (BEAKER) (test code = 647) HEPATITIS C [id number] 16:44:00 Test Item Value Reference Range Interpretation Comments HEPATITIS C ANTIBODY (BEAKER) Nonreactive Nonreactive (test code = 367) [id number] 15:28:00 Test Item Value Reference Range Interpretation Comments FERRITIN (BEAKER) (test code = 361) 497 ng/mL 5-275 H RAD, CHEST, 2 [id number] 15:14:00Dialysis 05/23Reason for Exam:->CHRONIC KIDNEY DISEASE, STAGE 5 [N18.5]FINAL REPORT Chest two views compared to June 29, 2015 Discussion: Heart,lungs, bones, soft tissues unremarkable. No effusion or pneumothorax. Signed: Sheba Millereport V erified Date/Time: 02/19/2017 15:14:15 Reading Location: [facility] [id number] Consult Reading Room BASI METABOLIC [id number] 14:10:00 Test Item Value Reference Range Interpretation Comments SODIUM (BEAKER) 136 meq/L 136-145 (test code = 381) POTASSIUM (BEAKER) 6.5 meq/L 3.5-5.1 HH (test code = 379) CHLORIDE (BEAKER) 106 meq/L 98-107 (test code = 382) CO2 (BEAKER) (test 21 meq/L 22-29 L code = 355) BLOOD UREA NITROGEN 44 mg/dL 7-21 H (BEAKER) (test code = 354) CREATININE (BEAKER) 7.08 mg/dL 0.57-1.25 H (test code = 358) GLUCOSE RANDOM 204 mg/dL 70-105 H (BEAKER) (test code = 652) CALCIUM (BEAKER) 9.5 mg/dL 8.4-10.2 (test code = 697) EGFR (BEAKER) (test 6 mL/min/1.73 ESTIMAT ED GFR IS code = 1092) sq m NOT ACCURATE CREATININE CLEARANCE IN PREDICTING GLOMERULAR FILTRATION RATE . ESTIMATED GFR I S NOT APPLICABLE FOR DIALYSIS PATIEN TS. HEPATITIS B CORE ANTIBODY, [id number] 14:05:00 Test Item Value Reference Range Interpretation Comments HEPATITIS B CORE TOTAL ANTIBODY Nonreactive Nonreactive (BEAKER) (test code = 497) IRON, [id number] 13:47:00 Test Item Value Reference Range Interpretation Comments IRON (BEAKER) (test code = 547) 107 ug/dL 40-160 IRON, TIBC, % SAT. (WITHOUT FERRITIN)2017-02-19 13:47:00 Test Item Value Reference Range Interpretation Comments IRON (BEAKER) (test code = 547) 107 ug/dL 40-160 TOTAL IRON BINDING CAPACITY 311 ug/dL 250-450 (BEAKER) (test code = 769) IRON % SATURATION (2) (BEAKER) 34 % 20-55 (test code = 2590) PTH, [id number] 13:17:00 Test Item Value Reference Range Interpretation Comments PARATHYROID HORMONE INTACT 334.6 pg/mL 8.5-72.5 H (BEAKER) (test code = 577) [id number] 13:13:00 Test Item Value Reference Range Interpretation Comments PHOSPHORUS (BEAKER) (test code = 4.5 mg/dL 2.3-4.7 604) LIPID [id number] 13:13:00 Test Item Value Reference Range Interpretation Comments TRIGLYCERIDES (BEAKER) (test code = 879 mg/dL 540) CHOLESTEROL (BEAKER) (test code = 231 mg/dL 631) HDL CHOLESTEROL (BEAKER) (test code 30 mg/dL = 976) Calculated LDL not valid if triglyceride >400 mg/dLTriglyceride Reference Range: Low Risk <150 Borderline 150-199 High Risk 200-499 Very High Risk >=500Cholesterol Reference Range: Low Risk <200 Borderline 200-239 High Risk >240HDL Cholesterol Reference Range: Low Risk >=60 High Risk <40LDL Cholesterol ReferenceRange: Optimal <100 Near Optimal 100-129 Borderline 130-159 High 160-189 Very High >=190HEPATIC FUNCTION [id number] 13:13:00 Test Item Value Reference Range Interpretation Comments TOTAL PROTEIN (BEAKER) (test code = 8.7 gm/dL 6.0-8.3 H 770) ALBUMIN (BEAKER) (test code = 1145) 3.8 g/dL 3.5-5.0 BILIRUBIN TOTAL (BEAKER) (test code 0.6 mg/dL 0.2-1.2 = 377) BILIRUBIN DIRECT (BEAKER) (test 0.2 mg/dL 0.1-0.5 code = 706) ALKALINE PHOSPHATASE (BEAKER) (test 105 U/L 40-150 code = 346) AST (SGOT) (BEAKER) (test code = 17 U/L 5-34 353) ALT (SGPT) (BEAKER) (test code = 16 U/L 6-55 347) [id number] 13:08:00 Test Item Value Reference Range Interpretation Comments PROTIME (BEAKER) (test code = 15.0 seconds 11.7-14.7 H 759) INR (BEAKER) (test code = 370) 1.2 <=5.9 PARTIAL THROMBOPLASTIN TIME 31.4 seconds 22.5-36.0 (BEAKER) (test code = 760) RECOMMENDED COUMADIN/WARFARIN INR THERAPY RANGESSTANDARD DOSE: 2.0 - 3.0 Includes: PROPHYLAXIS forvenous thrombosis, systemic embolization; TREATMENT for venous thrombosis and/or pulmonary embolus.HIGH RISK: Target INR is 2.5-3.5 for patients with mechanical heart valves.CBC (HEMOGRAM ONLY)2017-02-19 12:53:00 Test Item Value Reference Range Interpretation Comments WHITE BLOOD CELL COUNT (BEAKER) 9.0 K/ L 3.5-10.5 (test code = 775) RED BLOOD CELL COUNT (BEAKER) 3.42 M/ L 3.93-5.22 L (test code = 761) HEMOGLOBIN (BEAKER) (test code = 9.0 GM/DL 11.2-15.7 L 410) HEMATOCRIT (BEAKER) (test code = 29.2 % 34.1-44.9 L 411) MEAN CORPUSCULAR VOLUME (BEAKER) 85.4 fL 79.4-94.8 (test code = 753) MEAN CORPUSCULAR HEMOGLOBIN 26.3 pg 25.6-32.2 (BEAKER) (test code = 751) MEAN CORPUSCULAR HEMOGLOBIN CONC 30.8 GM/DL 32.2-35.5 L (BEAKER) (test code = 752) RED CELL DISTRIBUTION WIDTH 17.2 % 11.7-14.4 H (BEAKER) (test code = 412) PLATELET COUNT (BEAKER) (test 214 K/CU MM 150-450 code = 756) MEAN PLATELET VOLUME (BEAKER) 8.5 fL 9.4-12.3 L (test code = 754) NUCLEATED RED BLOOD CELLS 0 /100 WBC 0-0 (BEAKER) (test code = 413) POTASSIUM-STAT [id number] 17:19:00 Test Item Value Reference Range Interpretation Comments POTASSIUM (BEAKER) (test code = 6.2 meq/L 3.6-5.5 HH 379) GLUCOSE-STAT [id number] 17:16:00 Test Item Value Reference Range Interpretation Comments GLUCOSE RANDOM (BEAKER) (test code 223 mg/dL 70-110 H = 652) [id number] 15:37:00 Test Item Value Reference Range Interpretation Comments POTASSIUM (BEAKER) (test code = 6.5 meq/L 3.5-5.1 HH 379) [id number] 15:28:00 Test Item Value Reference Range Interpretation Comments GLUCOSE RANDOM (BEAKER) (test code 209 mg/dL 70-105 H = 652) [id number] 13:23:00 Test Item Value Reference Range Interpretation Comments POTASSIUM (BEAKER) (test code = 7.0 meq/L 3.5-5.1 HH 379) POTASSIUM-STAT [id number] 12:51:00 Test Item Value Reference Range Interpretation Comments POTASSIUM (BEAKER) (test code = 7.6 meq/L 3.6-5.5 HH 379) GLUCOSE-STAT [id number] 12:44:00 Test Item Value Reference Range Interpretation Comments GLUCOSE RANDOM (BEAKER) (test code 253 mg/dL 70-110 H = 652) GLUCOSE-STAT [id number] 10:30:00 Test Item Value Reference Range Interpretation Comments GLUCOSE RANDOM (BEAKER) (test code 213 mg/dL 70-110 H = 652) HGB/HCT (H&H) - STAT [id number] 10:30:00 Test Item Value Reference Range Interpretation Comments HEMOGLOBIN (BEAKER) (test code = 8.5 g/dL 12.0-15.0 L 410) HEMATOCRIT (BEAKER) (test code = 25.0 % 36.0-45.0 L 411) POTASSIUM-STAT [id number] 10:30:00 Test Item Value Reference Range Interpretation Comments POTASSIUM (BEAKER) (test code = 6.3 meq/L 3.6-5.5 HH 379) HGB/HCT (H&H) - STAT [id number] 06:24:00 Test Item Value Reference Range Interpretation Comments HEMOGLOBIN (BEAKER) (test code = 8.7 g/dL 12.0-15.0 L 410) HEMATOCRIT (BEAKER) (test code = 26.0 % 36.0-45.0 L 411) GLUCOSE-STAT [id number] 06:22:00 Test Item Value Reference Range Interpretation Comments GLUCOSE RANDOM (BEAKER) (test code 108 mg/dL 70-110 = 652) POTASSIUM-STAT [id number] 06:22:00 Test Item Value Reference Range Interpretation Comments POTASSIUM (BEAKER) (test code = 4.7 meq/L 3.6-5.5 379) [id number] 15:10:00 Test Item Value Reference Range Interpretation Comments FERRITIN (BEAKER) (test code = 361) 39 ng/mL 5-275 IRON, TIBC, % SAT. (WITHOUT FERRITIN)2017-01-23 14:49:00 Test Item Value Reference Range Interpretation Comments IRON (BEAKER) (test code = 547) 42 ug/dL 40-160 TOTAL IRON BINDING CAPACITY 363 ug/dL 250-450 (BEAKER) (test code = 769) IRON % SATURATION (2) (BEAKER) 12 % 20-55 L (test code = 2590) [id number] 10:56:00 Test Item Value Reference Range Interpretation Comments POC-HEMATOCRIT 29 % 36-45 L TESTED AT [place] [address] (BEAKER) (test code = [facility] [place] 1857) [id number] 10:56:00 Test Item Value Reference Range Interpretation Comments POC-HEMOGLOBIN 9.9 g/dL 12.0-15.0 L TESTED AT [place] [address] (BEAKER) (test code [facility] = 1856) [place] [address] TISSUE [id number] 13:28:00Surgical Pathology Report Case: [id number] Authorizing Provider: Anjana Booker MD Collected: 11/18/2016 1200 Ordering Location: [facility] Radiology Main Received: 11/18/2016 1043 Pathologist: Amy Ortega MD Specimen: Kidney, Right KIDNEY, RIGHT,NEEDLE BIOPSIES- FEATURES CONSISTENT WITH RECURRENT FOCAL AND SEGMENTAL GLOMERULOSCLEROSIS (FSGS)- C4D NEGATIVE IN PERITUBULAR CAPILLARIES- NEGATIVE FOR FEATURES OF ACUTE REJECTION- NEGATIVE FOR IMMUNEMEDIATED GLOMERULONEPHRITIS- INTERSTITIAL FIBROSIS AND TUBULAR ATROPHY, MODERATE TO SEVERE (50% TO 60%)- MILD ARTERIOLAR HYALINOSIS- SEE COMMENT The renal biopsy shows focal segmental and diffuse global glomerulosclerosis. Overall global glomerulosclerosis is 60% (6/10) of all examined glomeruli. There is moderate to severe interstitial fibrosis and tubular atrophy involving about 60% of renal cortex. No acute rejection is present. No immune mediated glomerulonephritis is seen based on negative immunofluorescence and absence of electron dense deposits on ultrastructural evaluation.The tissue submitted for light microscopy showed medullary tissue and a small part of cortex. No glomeruli was present in this tissue (multiple levels examined). The morphological diagnosis is rendered based on the HE stained relief pilot sections of the tissue submitted for immunofluorescence, and from the relief pilot sections for electron microscopy. [id number], 96278 x3, 16734, 58602 x8, 71629Lvydq transplant in April 2014 with recurrent FSGS (biopsy proven in ) and proteinuria 11 g, with increasing serum creatinine (now 3.7)Right transverse kidney biopsy The specimen is received in three parts all labeled with the patient's information all left 'right transplant kidney biopsy" and received in formalin is a [place] core biopsy measuring 1.6 cm in length, submitted entirely A1. Received fresh are two 0.5 cm townsend core biopsies, submitted for frozen for immunofluorescence staining. Received in glutaraldehyde is a 0.4 cm townsend-red fragment of soft submitted for electron microscopy if needed. CG/pl LIGHT MICROSCOPY: Sections show three cores of renal parenchymal tissue composed predominantly of medullary tissue (~40%) and very focal cortical tissue. Glomeruli: No glomeruli are seen (mulitple levels examined) Tubules and interstitium: There is moderate interstitial fibrosis with focal tubular atrophy and associated chronic interstitial inflammatory cell infiltration involving about 40% of renal cortex. Non-atrophic proximal tubules are focally ectatic. No tubulitis or peritubular capillaritis is noted. Vessels: Branches of interlobular arteries are unremarkable. The arterioles show mild hyalinosis and focal hyperplastic arteriolosclerosis. Special stains:Frank trichrome, PAS and Montelongo silver stains were necessary for evaluation of this biopsy and showed expected staining patterns of internal control tissue matrix structures.IMMUNOFLUORESCENCEHistology: H&E-stained sections show 1 non- obsolescent glomeruli and 6 obsolescent glomeruli. The non-globally sclerotic glomeruli are unremarkable with patent capillary loops. No endocapillary hypercellularity, crescents or thrombi are seen. No definitive double contours are noted on Montelogno or PAS stain. There is marked interstitial fibrosis and tubular atrophy with chronic lymphoplasmacytic inflammation involving fibrotic foci. Indirect avqiiretysrfdgwhssS0c is negative in peritubular capillaries.Direct immunofluorescence Albumin: diffuse, glomerular and tubular basement membrane, weak. IgA: negative inglomeruli IgG: negative in glomeruli. IgM: focal, segmental, mesangial entrapment in sclerotic glomeruli, 2+. C3: Sclerotic glomeruli with 3+ staining, C1q: weak/equivocal staining of the sclerotic glomeruli. Fibrinogen: diffuse, glomerular and tubulointerstitial, weak. Leakey: negative glomeruli Lambda: negative glomeruliAll polyclonal antibodies used for immunofluorescence staining have been previously tested and shown to have appropriate reactivities with positive control specimens. ELECTRON MICROSCOPY:Thick section histology: Toluidine blue-stained sections reveal three non-obsolescent glomeruli, one of which shows segmental sclerosis and hyalinosis. All three non-obsolescent glomerulus isexamined ultrastructurally.Ultrastructure: Examination of the glomerular ultrastructure reveals that the glomerular basement membrane is of normal thickness. The mesangial matrix is not expanded. Subendothelial, subepithelial, and mesangial/paramesangial electron-dense, immune complex-type deposits are not present. Podocyte foot processes are diffusely effaced with segmental microvillous change. Visceral podocyte hypertrophy is present. Peritubular capillaries show 1-3 layers of basement membranes.BASIC METABOLIC PANEL 2016-11-18 08:03:00 Test Item Value Reference Range Interpretation Comments SODIUM (BEAKER) 140 meq/L 136-145 (test code = 381) POTASSIUM (BEAKER) 4.2 meq/L 3.5-5.1 (test code = 379) CHLORIDE (BEAKER) 109 meq/L 98-107 H (test code = 382) CO2 (BEAKER) (test 21 meq/L 22-29 L code = 355) BLOOD UREA NITROGEN 33 mg/dL 7-21 H (BEAKER) (test code = 354) CREATININE (BEAKER) 3.92 mg/dL 0.57-1.25 H (test code = 358) GLUCOSE RANDOM 135 mg/dL 70-105 H (BEAKER) (test code = 652) CALCIUM (BEAKER) 9.3 mg/dL 8.4-10.2 (test code = 697) EGFR (BEAKER) (test 12 mL/min/1.73 ESTIMA BRII GFR IS code = 1092) sq m NOT ACCURATE CREATININE CLEARANCE IN PREDICTING GLOMERULAR FILTRATION RATE . ESTIMATED GFR I S NOT APPLICABLE FOR DIALYSIS PATIEN TS. [id number] 07:27:00 Test Item Value Reference Range Interpretation Comments PROTIME (BEAKER) (test code = 13.4 seconds 11.7-14.7 759) INR (BEAKER) (test code = 370) 1.0 <=5.9 PARTIAL THROMBOPLASTIN TIME 30.9 seconds 22.5-36.0 (BEAKER) (test code = 760) RECOMMENDED COUMADIN/WARFARIN INR THERAPY RANGESSTANDARD DOSE: 2.0 - 3.0 Includes: PROPHYLAXIS forvenous thrombosis, systemic embolization; TREATMENT for venous thrombosis and/or pulmonary embolus.HIGH RISK: Target INR is 2.5-3.5 for patients with mechanical heart valves.CBC W/PLT COUNT & AUTO DIFFERENTIAL 2016-11-18 07:20:00 Test Item Value Reference Range Interpretation Comments WHITE BLOOD CELL COUNT (BEAKER) 9.1 K/ L 4.0-10.0 (test code = 775) RED BLOOD CELL COUNT (BEAKER) 4.12 M/ L 4.00-5.00 (test code = 761) HEMOGLOBIN (BEAKER) (test code = 10.8 GM/DL 12.0-15.0 L 410) HEMATOCRIT (BEAKER) (test code = 33.8 % 36.0-45.0 L 411) MEAN CORPUSCULAR VOLUME (BEAKER) 82.0 fL 82.0-99.0 (test code = 753) MEAN CORPUSCULAR HEMOGLOBIN 26.3 pg 27.0-33.0 L (BEAKER) (test code = 751) MEAN CORPUSCULAR HEMOGLOBIN CONC 32.0 GM/DL 32.0-36.0 (BEAKER) (test code = 752) RED CELL DISTRIBUTION WIDTH 14.8 % 10.3-14.2 H (BEAKER) (test code = 412) PLATELET COUNT (BEAKER) (test 344 K/CU MM 150-430 code = 756) MEAN PLATELET VOLUME (BEAKER) 6.8 fL 6.5-10.5 (test code = 754) NUCLEATED RED BLOOD CELLS 0 /100 WBC 0-0 (BEAKER) (test code = 413) NEUTROPHILS RELATIVE PERCENT 56 % (BEAKER) (test code = 429) LYMPHOCYTES RELATIVE PERCENT 35 % (BEAKER) (test code = 430) MONOCYTES RELATIVE PERCENT 6 % (BEAKER) (test code = 431) EOSINOPHILS RELATIVE PERCENT 2 % (BEAKER) (test code = 432) BASOPHILS RELATIVE PERCENT 0 % (BEAKER) (test code = 437) NEUTROPHILS ABSOLUTE COUNT 5.08 K/ L 1.80-8.00 (BEAKER) (test code = 670) LYMPHOCYTES ABSOLUTE COUNT 3.19 K/ L 1.48-4.50 (BEAKER) (test code = 414) MONOCYTES ABSOLUTE COUNT (BEAKER) 0.55 K/ L 0.00-1.30 (test code = 415) EOSINOPHILS ABSOLUTE COUNT 0.19 K/ L 0.00-0.50 (BEAKER) (test code = 416) BASOPHILS ABSOLUTE COUNT (BEAKER) 0.04 K/ L 0.00-0.20 (test code = 417) 0.00URINE [id number] 13:34:00 Test Item Value Reference Range Interpretation Comments CULTURE (BEAKER) A 50-59,000 c ol/mL (test code = 1095) Beta-hemo lytic streptococcus g roup B, by serological alyssa upingIf this patient is preg nant, please refer to ACOG g uikobe for appropriate screening and management of colonized women. >100,000 col/mL skin floraPROTEIN, RANDOM [id number] 17:10:00 Test Item Value Reference Range Interpretation Comments PROTEIN, URINE (BEAKER) (test code 670 mg/dL 0-14 H = 1569) CREATININE, RANDOM [id number] 16:40:00 Test Item Value Reference Range Interpretation Comments CREATININE URINE (BEAKER) (test 97.6 mg/dL code = 375) Reference Range: No NormalsPROTEIN, RANDOM [id number] 14:56:00 Test Item Value Reference Range Interpretation Comments PROTEIN, URINE (BEAKER) (test code 507 mg/dL 0-14 H = 1569) CREATININE, RANDOM [id number] 14:41:00 Test Item Value Reference Range Interpretation Comments CREATININE URINE (BEAKER) (test 99.6 mg/dL code = 375) Reference Range: No NormalsTACROLIMUS [id number] 12:30:00 Test Item Value Reference Range Interpretation Comments TACROLIMUS BLOOD (BEAKER) (test 4.8 ng/mL 10.0-20.0 L code = 657) COMPREHENSIVE METABOLIC [id number] 08:57:00 Test Item Value Reference Range Interpretation Comments TOTAL PROTEIN 7.4 gm/dL 6.0-8.3 (BEAKER) (test code = 770) ALBUMIN (BEAKER) 3.5 g/dL 3.5-5.0 (test code = 1145) ALKALINE PHOSPHATASE 101 U/L 40-150 (BEAKER) (test code = 346) BILIRUBIN TOTAL 0.4 mg/dL 0.2-1.2 (BEAKER) (test code = 377) SODIUM (BEAKER) (test 142 meq/L 136-145 code = 381) POTASSIUM (BEAKER) 5.5 meq/L 3.5-5.1 H (test code = 379) CHLORIDE (BEAKER) 113 meq/L 98-107 H (test code = 382) CO2 (BEAKER) (test 20 meq/L 22-29 L code = 355) BLOOD UREA NITROGEN 34 mg/dL 7-21 H (BEAKER) (test code = 354) CREATININE (BEAKER) 2.38 mg/dL 0.57-1.25 H (test code = 358) GLUCOSE RANDOM 139 mg/dL 70-105 H (BEAKER) (test code = 652) CALCIUM (BEAKER) 8.7 mg/dL 8.4-10.2 (test code = 697) AST (SGOT) (BEAKER) 16 U/L 5-34 (test code = 353) ALT (SGPT) (BEAKER) 16 U/L 6-55 (test code = 347) EGFR (BEAKER) (test 22 mL/min/1.73 ESTIMA BRII GFR IS code = 1092) sq m NOT ACCURATE CREATININE CLEARANCE IN PREDICTING GLOMERULAR FILTRATION RATE . ESTIMATED GFR I S NOT APPLICABLE FOR DIALYSIS PATIEN TS. Specimen slightly lipemicCBC W/PLT COUNT & AUTO [id number] 08:37:00 Test Item Value Reference Range Interpretation Comments WHITE BLOOD CELL COUNT (BEAKER) 6.7 K/ L 4.0-10.0 (test code = 775) RED BLOOD CELL COUNT (BEAKER) 3.60 M/ L 4.00-5.00 L (test code = 761) HEMOGLOBIN (BEAKER) (test code = 9.7 GM/DL 12.0-15.0 L 410) HEMATOCRIT (BEAKER) (test code = 30.9 % 36.0-45.0 L 411) MEAN CORPUSCULAR VOLUME (BEAKER) 85.7 fL 82.0-99.0 (test code = 753) MEAN CORPUSCULAR HEMOGLOBIN 27.0 pg 27.0-33.0 (BEAKER) (test code = 751) MEAN CORPUSCULAR HEMOGLOBIN CONC 31.5 GM/DL 32.0-36.0 L (BEAKER) (test code = 752) RED CELL DISTRIBUTION WIDTH 16.8 % 10.3-14.2 H (BEAKER) (test code = 412) PLATELET COUNT (BEAKER) (test 309 K/CU MM 150-430 code = 756) MEAN PLATELET VOLUME (BEAKER) 7.2 fL 6.5-10.5 (test code = 754) NUCLEATED RED BLOOD CELLS 0 /100 WBC 0-0 (BEAKER) (test code = 413) NEUTROPHILS RELATIVE PERCENT 62 % (BEAKER) (test code = 429) LYMPHOCYTES RELATIVE PERCENT 31 % (BEAKER) (test code = 430) MONOCYTES RELATIVE PERCENT 5 % (BEAKER) (test code = 431) EOSINOPHILS RELATIVE PERCENT 2 % (BEAKER) (test code = 432) BASOPHILS RELATIVE PERCENT 0 % (BEAKER) (test code = 437) NEUTROPHILS ABSOLUTE COUNT 4.17 K/ L 1.80-8.00 (BEAKER) (test code = 670) LYMPHOCYTES ABSOLUTE COUNT 2.09 K/ L 1.48-4.50 (BEAKER) (test code = 414) MONOCYTES ABSOLUTE COUNT (BEAKER) 0.34 K/ L 0.00-1.30 (test code = 415) EOSINOPHILS ABSOLUTE COUNT 0.11 K/ L 0.00-0.50 (BEAKER) (test code = 416) BASOPHILS ABSOLUTE COUNT (BEAKER) 0.01 K/ L 0.00-0.20 (test code = 417) 0.00CMV PCR, [id number] 14:33:00 Test Item Value Reference Range Interpretation Comments CMV VIRAL LOAD - POSITIVE 531 copies/ml (BEAKER) (test code = 1557) Cytomegalovirus (CMV) infection can cause significant disease in immunosuppressed patients. However,it is common for CMV to manifest as a limited infection which is of no clinical significance in immunosuppressed patients or in healthy individuals.Viral load measurements are helpful to identify clinical CMV infection and to guide the pre-emptive management of antiviral therapy. For treatment of CMVinfection due to reactivation in transplant recipients, a threshold between 4,000 and 5,000 copies/mL is suggested. For treatment of primary CMV infection, a lower threshold can be used.CMV infection may also be monitored using weekly serial measurements. Serial measurements of CMV DNA viral load canbe evaluated by identifying a 10-fold change, as well as assessing the CMV DNA viral load and the clinical context for each patient.The plasma CMV DNA viral load was detected using quantitative polymerase chain reaction and fluorescent monitoring of a specific hybridized probe. Genetic variation and ot her factors can affect the accuracy of nucleic acid testing. Therefore, the results should be interpreted in light of clinical data. A negative result may not exclude the presence of CMV disease.This test was developed and its performance characteristics determined by the [facility], Section of Molecular Pathology. It has not been cleared or approved by the U.S. Food and Drug Administration (FDA), since FDA approval is not required for clinical use of the test. Validation was done as required by The Clinical Laboratory Improvement Amendments of 1988.TACROLIMUS LEVEL 2016-09-04 15:21:00 Test Item Value Reference Range Interpretation Comments TACROLIMUS BLOOD (BEAKER) (test 9.4 ng/mL 10.0-20.0 L code = 657) LACTATE DEHYDROGENASE (LDH)2016-09-04 14:20:00 Test Item Value Reference Range Interpretation Comments LACTATE DEHYDROGENASE 266 U/L 125-220 H Specim en slightly (BEAKER) (test code = hemoly zed 635) COMPREHENSIVE METABOLIC [id number] 14:20:00 Test Item Value Reference Range Interpretation Comments TOTAL PROTEIN 8.0 gm/dL 6.0-8.3 Specimen sligh tly (BEAKER) (test code = hemoly zed 770) ALBUMIN (BEAKER) 3.5 g/dL 3.5-5.0 Specimen sl ightly (test code = 1145) hemolyzed ALKALINE PHOSPHATASE 113 U/L 40-150 (BEAKER) (test code = 346) BILIRUBIN TOTAL 0.4 mg/dL 0.2-1.2 Specimen sli ghtly (BEAKER) (test code = hemoly zed 377) SODIUM (BEAKER) (test 138 meq/L 136-145 code = 381) POTASSIUM (BEAKER) 5.7 meq/L 3.5-5.1 H Specimen slightly (test code = 379) hemolyzed CHLORIDE (BEAKER) 110 meq/L 98-107 H (test code = 382) CO2 (BEAKER) (test 19 meq/L 22-29 L code = 355) BLOOD UREA NITROGEN 29 mg/dL 7-21 H (BEAKER) (test code = 354) CREATININE (BEAKER) 2.31 mg/dL 0.57-1.25 H Specimen slightly (test code = 358) hemolyzed GLUCOSE RANDOM 143 mg/dL 70-105 H (BEAKER) (test code = 652) CALCIUM (BEAKER) 9.1 mg/dL 8.4-10.2 (test code = 697) AST (SGOT) (BEAKER) 22 U/L 5-34 Specimen slightly (test code = 353) hemolyzed ALT (SGPT) (BEAKER) 23 U/L 6-55 Specimen slightly (test code = 347) hemolyzed EGFR (BEAKER) (test 23 mL/min/1.73 ESTIMA BRII GFR IS code = 1092) sq m NOT ACCURATE CREATININE CLEARANCE IN PREDICTING GLOMERULAR FILTRATION RATE . ESTIMATED GFR I S NOT APPLICABLE FOR DIALYSIS PATIEN TS. Specimen slightly [id number] 14:18:00 Test Item Value Reference Range Interpretation Comments PHOSPHORUS (BEAKER) 4.1 mg/dL 2.3-4.7 Specimen slightly (test code = 604) hemolyzed URINALYSIS W/ REFLEX URINE [id number] 14:02:00 Test Item Value Reference Range Interpretation Comments COLOR (BEAKER) (test code = 470) Light Yellow CLARITY (BEAKER) (test code = Clear 469) SPECIFIC GRAVITY UA (BEAKER) 1.011 1.001-1.035 (test code = 468) PH UA (BEAKER) (test code = 467) 6.5 5.0-8.0 PROTEIN UA (BEAKER) (test code = 600 mg/dL Negative A 464) GLUCOSE UA (BEAKER) (test code = Negative Negative 365) KETONES UA (BEAKER) (test code = Negative Negative 371) BILIRUBIN UA (BEAKER) (test code Negative Negative = 462) BLOOD UA (BEAKER) (test code = Negative Negative 461) NITRITE UA (BEAKER) (test code = Negative Negative 465) LEUKOCYTE ESTERASE UA (BEAKER) Negative Negative (test code = 466) UROBILINOGEN UA (BEAKER) (test 0.2 mg/dL 0.2-1.0 code = 463) RBC UA (BEAKER) (test code = < /HPF 519) WBC UA (BEAKER) (test code = 2 /HPF 520) BACTERIA (BEAKER) (test code = Rare 517) SQUAMOUS EPITHELIAL (BEAKER) 8 /HPF (test code = 516) SOURCE(BEAKER) (test code = 7688) CBC W/PLT COUNT & AUTO [id number] 13:55:00 Test Item Value Reference Range Interpretation Comments WHITE BLOOD CELL COUNT (BEAKER) 5.5 K/ L 4.0-10.0 (test code = 775) RED BLOOD CELL COUNT (BEAKER) 3.74 M/ L 4.00-5.00 L (test code = 761) HEMOGLOBIN (BEAKER) (test code = 10.2 GM/DL 12.0-15.0 L 410) HEMATOCRIT (BEAKER) (test code = 31.2 % 36.0-45.0 L 411) MEAN CORPUSCULAR VOLUME (BEAKER) 83.6 fL 82.0-99.0 (test code = 753) MEAN CORPUSCULAR HEMOGLOBIN 27.4 pg 27.0-33.0 (BEAKER) (test code = 751) MEAN CORPUSCULAR HEMOGLOBIN CONC 32.8 GM/DL 32.0-36.0 (BEAKER) (test code = 752) RED CELL DISTRIBUTION WIDTH 17.8 % 10.3-14.2 H (BEAKER) (test code = 412) PLATELET COUNT (BEAKER) (test 383 K/CU MM 150-430 code = 756) MEAN PLATELET VOLUME (BEAKER) 7.1 fL 6.5-10.5 (test code = 754) NUCLEATED RED BLOOD CELLS 0 /100 WBC 0-0 (BEAKER) (test code = 413) NEUTROPHILS RELATIVE PERCENT 71 % (BEAKER) (test code = 429) LYMPHOCYTES RELATIVE PERCENT 27 % (BEAKER) (test code = 430) MONOCYTES RELATIVE PERCENT 2 % (BEAKER) (test code = 431) EOSINOPHILS RELATIVE PERCENT 1 % (BEAKER) (test code = 432) BASOPHILS RELATIVE PERCENT 0 % (BEAKER) (test code = 437) NEUTROPHILS ABSOLUTE COUNT 3.89 K/ L 1.80-8.00 (BEAKER) (test code = 670) LYMPHOCYTES ABSOLUTE COUNT 1.46 K/ L 1.48-4.50 L (BEAKER) (test code = 414) MONOCYTES ABSOLUTE COUNT (BEAKER) 0.09 K/ L 0.00-1.30 (test code = 415) EOSINOPHILS ABSOLUTE COUNT 0.06 K/ L 0.00-0.50 (BEAKER) (test code = 416) BASOPHILS ABSOLUTE COUNT (BEAKER) 0.01 K/ L 0.00-0.20 (test code = 417) 0.00CMV PCR, [id number] 14:35:00 Test Item Value Reference Range Interpretation Comments CMV VIRAL LOAD - POSITIVE 1147 copies/ml (BEAKER) (test code = 1557) Cytomegalovirus (CMV) infection can cause significant disease in immunosuppressed patients. However,it is common for CMV to manifest as a limited infection which is of no clinical significance in immunosuppressed patients or in healthy individuals.Viral load measurements are helpful to identify clinical CMV infection and to guide the pre-emptive management of antiviral therapy. For treatment of CMVinfection due to reactivation in transplant recipients, a threshold between 4,000 and 5,000 copies/mL is suggested. For treatment of primary CMV infection, a lower threshold can be used.CMV infection may also be monitored using weekly serial measurements. Serial measurements of CMV DNA viral load canbe evaluated by identifying a 10-fold change, as well as assessing the CMV DNA viral load and the clinical context for each patient.The plasma CMV DNA viral load was detected using quantitative polymerase chain reaction and fluorescent monitoring of a specific hybridized probe. Genetic variation and ot her factors can affect the accuracy of nucleic acid testing. Therefore, the results should be interpreted in light of clinical data. A negative result may not exclude the presence of CMV disease.This test was developed and its performance characteristics determined by the [facility], Section of Molecular Pathology. It has not been cleared or approved by the U.S. Food and Drug Administration (FDA), since FDA approval is not required for clinical use of the test. Validation was done as required by The Clinical Laboratory Improvement Amendments of 1988.TACROLIMUS LEVEL 2016-09-02 12:44:00 Test Item Value Reference Range Interpretation Comments TACROLIMUS BLOOD (BEAKER) (test 7.0 ng/mL 10.0-20.0 L code = 657) COMPREHENSIVE METABOLIC [id number] 11:38:00 Test Item Value Reference Range Interpretation Comments TOTAL PROTEIN 7.4 gm/dL 6.0-8.3 (BEAKER) (test code = 770) ALBUMIN (BEAKER) 3.3 g/dL 3.5-5.0 L (test code = 1145) ALKALINE PHOSPHATASE 116 U/L 40-150 (BEAKER) (test code = 346) BILIRUBIN TOTAL 0.5 mg/dL 0.2-1.2 (BEAKER) (test code = 377) SODIUM (BEAKER) (test 140 meq/L 136-145 code = 381) POTASSIUM (BEAKER) 5.8 meq/L 3.5-5.1 H (test code = 379) CHLORIDE (BEAKER) 114 meq/L 98-107 H (test code = 382) CO2 (BEAKER) (test 18 meq/L 22-29 L code = 355) BLOOD UREA NITROGEN 24 mg/dL 7-21 H (BEAKER) (test code = 354) CREATININE (BEAKER) 2.27 mg/dL 0.57-1.25 H (test code = 358) GLUCOSE RANDOM 141 mg/dL 70-105 H (BEAKER) (test code = 652) CALCIUM (BEAKER) 8.9 mg/dL 8.4-10.2 (test code = 697) AST (SGOT) (BEAKER) 21 U/L 5-34 (test code = 353) ALT (SGPT) (BEAKER) 24 U/L 6-55 (test code = 347) EGFR (BEAKER) (test 23 mL/min/1.73 ESTIMA BRII GFR IS code = 1092) sq m NOT ACCURATE CREATININE CLEARANCE IN PREDICTING GLOMERULAR FILTRATION RATE . ESTIMATED GFR I S NOT APPLICABLE FOR DIALYSIS PATIEN TS. [id number] 11:29:00 Test Item Value Reference Range Interpretation Comments PHOSPHORUS (BEAKER) (test code = 4.3 mg/dL 2.3-4.7 604) LACTATE DEHYDROGENASE (LDH)2016-09-02 11:29:00 Test Item Value Reference Range Interpretation Comments LACTATE DEHYDROGENASE (BEAKER) (test 222 U/L 125-220 H code = 635) CBC W/PLT COUNT & AUTO [id number] 11:17:00 Test Item Value Reference Range Interpretation Comments WHITE BLOOD CELL COUNT (BEAKER) 4.8 K/ L 4.0-10.0 (test code = 775) RED BLOOD CELL COUNT (BEAKER) 3.59 M/ L 4.00-5.00 L (test code = 761) HEMOGLOBIN (BEAKER) (test code = 9.6 GM/DL 12.0-15.0 L 410) HEMATOCRIT (BEAKER) (test code = 30.5 % 36.0-45.0 L 411) MEAN CORPUSCULAR VOLUME (BEAKER) 84.9 fL 82.0-99.0 (test code = 753) MEAN CORPUSCULAR HEMOGLOBIN 26.7 pg 27.0-33.0 L (BEAKER) (test code = 751) MEAN CORPUSCULAR HEMOGLOBIN CONC 31.4 GM/DL 32.0-36.0 L (BEAKER) (test code = 752) RED CELL DISTRIBUTION WIDTH 16.8 % 10.3-14.2 H (BEAKER) (test code = 412) PLATELET COUNT (BEAKER) (test 325 K/CU MM 150-430 code = 756) MEAN PLATELET VOLUME (BEAKER) 7.3 fL 6.5-10.5 (test code = 754) NUCLEATED RED BLOOD CELLS 0 /100 WBC 0-0 (BEAKER) (test code = 413) NEUTROPHILS RELATIVE PERCENT 53 % (BEAKER) (test code = 429) LYMPHOCYTES RELATIVE PERCENT 39 % (BEAKER) (test code = 430) MONOCYTES RELATIVE PERCENT 5 % (BEAKER) (test code = 431) EOSINOPHILS RELATIVE PERCENT 2 % (BEAKER) (test code = 432) BASOPHILS RELATIVE PERCENT 1 % (BEAKER) (test code = 437) NEUTROPHILS ABSOLUTE COUNT 2.56 K/ L 1.80-8.00 (BEAKER) (test code = 670) LYMPHOCYTES ABSOLUTE COUNT 1.87 K/ L 1.48-4.50 (BEAKER) (test code = 414) MONOCYTES ABSOLUTE COUNT (BEAKER) 0.24 K/ L 0.00-1.30 (test code = 415) EOSINOPHILS ABSOLUTE COUNT 0.11 K/ L 0.00-0.50 (BEAKER) (test code = 416) BASOPHILS ABSOLUTE COUNT (BEAKER) 0.05 K/ L 0.00-0.20 (test code = 417) 0.00URINALYSIS W/ REFLEX URINE [id number] 11:14:00 Test Item Value Reference Range Interpretation Comments COLOR (BEAKER) (test code = 470) Yellow CLARITY (BEAKER) (test code = 469) Clear SPECIFIC GRAVITY UA (BEAKER) (test 1.012 1.001-1.035 code = 468) PH UA (BEAKER) (test code = 467) 6.5 5.0-8.0 PROTEIN UA (BEAKER) (test code = 600 mg/dL Negative A 464) GLUCOSE UA (BEAKER) (test code = Negative Negative 365) KETONES UA (BEAKER) (test code = Negative Negative 371) BILIRUBIN UA (BEAKER) (test code = Negative Negative 462) BLOOD UA (BEAKER) (test code = 461) Trace Negative A NITRITE UA (BEAKER) (test code = Negative Negative 465) LEUKOCYTE ESTERASE UA (BEAKER) Negative Negative (test code = 466) UROBILINOGEN UA (BEAKER) (test code 0.2 mg/dL 0.2-1.0 = 463) RBC UA (BEAKER) (test code = 519) 0 /HPF WBC UA (BEAKER) (test code = 520) 0 /HPF HYALINE CASTS (BEAKER) (test code = 2 /LPF 514) SOURCE(BEAKER) (test code = 1046) TACROLIMUS [id number] 09:25:00 Test Item Value Reference Range Interpretation Comments TACROLIMUS BLOOD (BEAKER) (test 6.7 ng/mL 10.0-20.0 L code = 657) PROTEIN, RANDOM [id number] 23:09:00 Test Item Value Reference Range Interpretation Comments PROTEIN, URINE (BEAKER) (test code = > mg/dL 0-14 H 1569) BASIC METABOLIC [id number] 23:09:00 Test Item Value Reference Range Interpretation Comments SODIUM (BEAKER) 139 meq/L 136-145 (test code = 381) POTASSIUM (BEAKER) 5.0 meq/L 3.5-5.1 (test code = 379) CHLORIDE (BEAKER) 112 meq/L 98-107 H (test code = 382) CO2 (BEAKER) (test 16 meq/L 22-29 L code = 355) BLOOD UREA NITROGEN 39 mg/dL 7-21 H (BEAKER) (test code = 354) CREATININE (BEAKER) 2.56 mg/dL 0.57-1.25 H (test code = 358) GLUCOSE RANDOM 190 mg/dL 70-105 H (BEAKER) (test code = 652) CALCIUM (BEAKER) 8.4 mg/dL 8.4-10.2 (test code = 697) EGFR (BEAKER) (test 20 mL/min/1.73 ESTIMA BRII GFR IS code = 1092) sq m NOT ACCURATE CREATININE CLEARANCE IN PREDICTING GLOMERULAR FILTRATION RATE . ESTIMATED GFR I S NOT APPLICABLE FOR DIALYSIS PATIEN TS. CREATININE, RANDOM [id number] 22:59:00 Test Item Value Reference Range Interpretation Comments CREATININE URINE (BEAKER) (test 68.3 mg/dL code = 375) Reference Range: No NormalsURINALYSIS W/ [id number] 22:56:00 Test Item Value Reference Range Interpretation Comments COLOR (BEAKER) (test code = 470) Light Yellow CLARITY (BEAKER) (test code = Clear 469) SPECIFIC GRAVITY UA (BEAKER) 1.010 1.001-1.035 (test code = 468) PH UA (BEAKER) (test code = 467) 6.5 5.0-8.0 PROTEIN UA (BEAKER) (test code = 200 mg/dL Negative A 464) GLUCOSE UA (BEAKER) (test code = 70 mg/dL Negative A 365) KETONES UA (BEAKER) (test code = Negative Negative 371) BILIRUBIN UA (BEAKER) (test code Negative Negative = 462) BLOOD UA (BEAKER) (test code = Trace Negative A 461) NITRITE UA (BEAKER) (test code = Negative Negative 465) LEUKOCYTE ESTERASE UA (BEAKER) Negative Negative (test code = 466) UROBILINOGEN UA (BEAKER) (test 0.2 mg/dL 0.2-1.0 code = 463) RBC UA (BEAKER) (test code = < /HPF 519) WBC UA (BEAKER) (test code = 1 /HPF 520) BACTERIA (BEAKER) (test code = Occasional 517) SQUAMOUS EPITHELIAL (BEAKER) 2 /HPF (test code = 516) SOURCE(BEAKER) (test code = 4666) CBC W/PLT COUNT & AUTO [id number] 22:45:00 Test Item Value Reference Range Interpretation Comments WHITE BLOOD CELL COUNT (BEAKER) 5.2 K/ L 4.0-10.0 (test code = 775) RED BLOOD CELL COUNT (BEAKER) 3.18 M/ L 4.00-5.00 L (test code = 761) HEMOGLOBIN (BEAKER) (test code = 8.6 GM/DL 12.0-15.0 L 410) HEMATOCRIT (BEAKER) (test code = 26.5 % 36.0-45.0 L 411) MEAN CORPUSCULAR VOLUME (BEAKER) 83.4 fL 82.0-99.0 (test code = 753) MEAN CORPUSCULAR HEMOGLOBIN 27.1 pg 27.0-33.0 (BEAKER) (test code = 751) MEAN CORPUSCULAR HEMOGLOBIN CONC 32.5 GM/DL 32.0-36.0 (BEAKER) (test code = 752) RED CELL DISTRIBUTION WIDTH 17.3 % 10.3-14.2 H (BEAKER) (test code = 412) PLATELET COUNT (BEAKER) (test 340 K/CU MM 150-430 code = 756) MEAN PLATELET VOLUME (BEAKER) 7.4 fL 6.5-10.5 (test code = 754) NUCLEATED RED BLOOD CELLS 0 /100 WBC 0-0 (BEAKER) (test code = 413) NEUTROPHILS RELATIVE PERCENT 49 % (BEAKER) (test code = 429) LYMPHOCYTES RELATIVE PERCENT 47 % (BEAKER) (test code = 430) MONOCYTES RELATIVE PERCENT 3 % (BEAKER) (test code = 431) EOSINOPHILS RELATIVE PERCENT 1 % (BEAKER) (test code = 432) BASOPHILS RELATIVE PERCENT 0 % (BEAKER) (test code = 437) NEUTROPHILS ABSOLUTE COUNT 2.56 K/ L 1.80-8.00 (BEAKER) (test code = 670) LYMPHOCYTES ABSOLUTE COUNT 2.47 K/ L 1.48-4.50 (BEAKER) (test code = 414) MONOCYTES ABSOLUTE COUNT (BEAKER) 0.16 K/ L 0.00-1.30 (test code = 415) EOSINOPHILS ABSOLUTE COUNT 0.05 K/ L 0.00-0.50 (BEAKER) (test code = 416) BASOPHILS ABSOLUTE COUNT (BEAKER) 0.00 K/ L 0.00-0.20 (test code = 417) OVA AND PARASITE [id number] 15:39:00 Test Item Value Reference Range Interpretation Comments DIRECT SMEAR - O\\T\\P No ova or parasites No ova or parasites (BEAKER) (test code = seen seen 196) CONCENTRATE SMEAR - No ova or parasites No ova or parasites O\\T\\P (BEAKER) (test seen seen code = 247) TRICHROME SMEAR - No ova or parasites No ova or parasites O\\T\\P (BEAKER) (test seen seen code = 248) One negative sample does not necessarily rule out the presence of a parasitic infection.Performing Laboratory: [facility] [id number] [place] [id number] Director: Sanjuana De Paz MD, FCAPTACROLIMUS [id number] 10:34:00 Test Item Value Reference Range Interpretation Comments TACROLIMUS BLOOD (BEAKER) (test 8.3 ng/mL 10.0-20.0 L code = 657) POCT-GLUCOSE [id number] 09:07:00 Test Item Value Reference Range Interpretation Comments POC-GLUCOSE METER 108 mg/dL 70-110 TESTED AT [facility] 6720 (BEAKER) (test code = GILDA ALEXIS ND 1538) [address] CBC W/PLT COUNT & AUTO [id number] 06:44:00 Test Item Value Reference Range Interpretation Comments WHITE BLOOD CELL COUNT (BEAKER) 3.8 K/ L 4.0-10.0 L (test code = 775) RED BLOOD CELL COUNT (BEAKER) 3.08 M/ L 4.00-5.00 L (test code = 761) HEMOGLOBIN (BEAKER) (test code = 8.4 GM/DL 12.0-15.0 L 410) HEMATOCRIT (BEAKER) (test code = 25.8 % 36.0-45.0 L 411) MEAN CORPUSCULAR VOLUME (BEAKER) 83.5 fL 82.0-99.0 (test code = 753) MEAN CORPUSCULAR HEMOGLOBIN 27.1 pg 27.0-33.0 (BEAKER) (test code = 751) MEAN CORPUSCULAR HEMOGLOBIN CONC 32.4 GM/DL 32.0-36.0 (BEAKER) (test code = 752) RED CELL DISTRIBUTION WIDTH 16.4 % 10.3-14.2 H (BEAKER) (test code = 412) PLATELET COUNT (BEAKER) (test 247 K/CU MM 150-430 code = 756) MEAN PLATELET VOLUME (BEAKER) 7.5 fL 6.5-10.5 (test code = 754) NUCLEATED RED BLOOD CELLS 0 /100 WBC 0-0 (BEAKER) (test code = 413) NEUTROPHILS RELATIVE PERCENT 43 % (BEAKER) (test code = 429) LYMPHOCYTES RELATIVE PERCENT 44 % (BEAKER) (test code = 430) MONOCYTES RELATIVE PERCENT 10 % (BEAKER) (test code = 431) EOSINOPHILS RELATIVE PERCENT 3 % (BEAKER) (test code = 432) BASOPHILS RELATIVE PERCENT 0 % (BEAKER) (test code = 437) NEUTROPHILS ABSOLUTE COUNT 1.60 K/ L 1.80-8.00 L (BEAKER) (test code = 670) LYMPHOCYTES ABSOLUTE COUNT 1.66 K/ L 1.48-4.50 (BEAKER) (test code = 414) MONOCYTES ABSOLUTE COUNT (BEAKER) 0.37 K/ L 0.00-1.30 (test code = 415) EOSINOPHILS ABSOLUTE COUNT 0.12 K/ L 0.00-0.50 (BEAKER) (test code = 416) BASOPHILS ABSOLUTE COUNT (BEAKER) 0.01 K/ L 0.00-0.20 (test code = 417) [id number] 06:26:00 Test Item Value Reference Range Interpretation Comments PHOSPHORUS (BEAKER) (test code = 4.9 mg/dL 2.3-4.7 H 604) [id number] 06:26:00 Test Item Value Reference Range Interpretation Comments MAGNESIUM (BEAKER) (test code = 1.9 mg/dL 1.6-2.6 627) BASIC METABOLIC [id number] 06:26:00 Test Item Value Reference Range Interpretation Comments SODIUM (BEAKER) 140 meq/L 136-145 (test code = 381) POTASSIUM (BEAKER) 5.0 meq/L 3.5-5.1 (test code = 379) CHLORIDE (BEAKER) 111 meq/L 98-107 H (test code = 382) CO2 (AKER) (test 19 meq/L 22-29 L code = 355) BLOOD UREA NITROGEN 31 mg/dL 7-21 H (AKER) (test code = 354) CREATININE (AKER) 2.62 mg/dL 0.57-1.25 H (test code = 358) GLUCOSE RANDOM 91 mg/dL 70-105 ([facility]) (test code = 652) CALCIUM (BEAKER) 8.4 mg/dL 8.4-10.2 (test code = 697) EGFR ([facility]) (test 20 mL/min/1.73 ESTIMA BRII GFR IS code = 1092) sq m NOT ACCURATE CREATININE CLEARANCE IN PREDICTING GLOMERULAR FILTRATION RATE . ESTIMATED GFR I S NOT APPLICABLE FOR DIALYSIS PATIEN TS. POCT-GLUCOSE [id number] 21:25:00 Test Item Value Reference Range Interpretation Comments POC-GLUCOSE METER 140 mg/dL 70-110 H TESTED AT [place] [address] ([facility]) (test code = [facility] 1538) [id number] POCT-GLUCOSE [id number] 17:13:00 Test Item Value Reference Range Interpretation Comments POC-GLUCOSE METER 213 mg/dL 70-110 H TESTED AT [place] [address] ([facility]) (test code = [facility] 1538) [id number] CMV PCR, [id number] 13:48:00 Test Item Value Reference Range Interpretation Comments CMV VIRAL LOAD - POSITIVE 90871 copies/ml ([facility]) (test code = 1557) Cytomegalovirus (CMV) infection can cause significant disease in immunosuppressed patients. However,it is common for CMV to manifest as a limited infection which is of no clinical significance in immunosuppressed patients or in healthy individuals.Viral load measurements are helpful to identify clinical CMV infection and to guide the pre-emptive management of antiviral therapy. For treatment of CMVinfection due to reactivation in transplant recipients, a threshold between 4,000 and 5,000 copies/mL is suggested. For treatment of primary CMV infection, a lower threshold can be used.CMV infection may also be monitored using weekly serial measurements. Serial measurements of CMV DNA viral load canbe evaluated by identifying a 10-fold change, as well as assessing the CMV DNA viral load and the clinical context for each patient.The plasma CMV DNA viral load was detected using quantitative polymerase chain reaction and fluorescent monitoring of a specific hybridized probe. Genetic variation and ot her factors can affect the accuracy of nucleic acid testing. Therefore, the results should be interpreted in light of clinical data. A negative result may not exclude the presence of CMV disease.This test was developed and its performance characteristics determined by the [facility], Section of Molecular Pathology. It has not been cleared or approved by the U.S. Food and Drug Administration (FDA), since FDA approval is not required for clinical use of the test. Validation was done as required by The Clinical Laboratory Improvement Amendments of 1988.POCT-GLUCOSE METER 2016-08-26 12:15:00 Test Item Value Reference Range Interpretation Comments POC-GLUCOSE METER 169 mg/dL 70-110 H TESTED AT [facility] 6720 (BEAKER) (test code = GILDA [place] 1538) [id number] CBC W/PLT COUNT & AUTO [id number] 10:50:00 Test Item Value Reference Range Interpretation Comments WHITE BLOOD CELL COUNT (BEAKER) 3.4 K/ L 4.0-10.0 L (test code = 775) RED BLOOD CELL COUNT (BEAKER) 3.18 M/ L 4.00-5.00 L (test code = 761) HEMOGLOBIN (BEAKER) (test code = 8.2 GM/DL 12.0-15.0 L 410) HEMATOCRIT (BEAKER) (test code = 26.4 % 36.0-45.0 L 411) MEAN CORPUSCULAR VOLUME (BEAKER) 82.9 fL 82.0-99.0 (test code = 753) MEAN CORPUSCULAR HEMOGLOBIN 25.7 pg 27.0-33.0 L (BEAKER) (test code = 751) MEAN CORPUSCULAR HEMOGLOBIN CONC 31.0 GM/DL 32.0-36.0 L (BEAKER) (test code = 752) RED CELL DISTRIBUTION WIDTH 15.5 % 10.3-14.2 H (BEAKER) (test code = 412) PLATELET COUNT (BEAKER) (test 261 K/CU MM 150-430 code = 756) MEAN PLATELET VOLUME (BEAKER) 7.6 fL 6.5-10.5 (test code = 754) NUCLEATED RED BLOOD CELLS 0 /100 WBC 0-0 (BEAKER) (test code = 413) NEUTROPHILS RELATIVE PERCENT 44 % (BEAKER) (test code = 429) LYMPHOCYTES RELATIVE PERCENT 44 % (BEAKER) (test code = 430) MONOCYTES RELATIVE PERCENT 9 % (BEAKER) (test code = 431) EOSINOPHILS RELATIVE PERCENT 3 % (BEAKER) (test code = 432) BASOPHILS RELATIVE PERCENT 0 % (BEAKER) (test code = 437) NEUTROPHILS ABSOLUTE COUNT 1.50 K/ L 1.80-8.00 L (BEAKER) (test code = 670) LYMPHOCYTES ABSOLUTE COUNT 1.51 K/ L 1.48-4.50 (BEAKER) (test code = 414) MONOCYTES ABSOLUTE COUNT (BEAKER) 0.29 K/ L 0.00-1.30 (test code = 415) EOSINOPHILS ABSOLUTE COUNT 0.11 K/ L 0.00-0.50 (BEAKER) (test code = 416) BASOPHILS ABSOLUTE COUNT (BEAKER) 0.01 K/ L 0.00-0.20 (test code = 417) 0.00(MANUAL DIFFERENTIAL)2016-08-26 10:50:00 Test Item Value Reference Range Interpretation Comments TOTAL COUNTED (BEAKER) (test code = 1351) WBC MORPHOLOGY (BEAKER) (test code = Normal 487) PLT MORPHOLOGY (BEAKER) (test code = Normal 486) RBC MORPHOLOGY (BEAKER) (test code = Normal 762) TACROLIMUS [id number] 10:09:00 Test Item Value Reference Range Interpretation Comments TACROLIMUS BLOOD (BEAKER) (test 8.8 ng/mL 10.0-20.0 L code = 657) POCT-GLUCOSE [id number] 08:03:00 Test Item Value Reference Range Interpretation Comments POC-GLUCOSE METER 114 mg/dL 70-110 H TESTED AT [facility] 6720 (BEAKER) (test code = GILDA Yajaira [place] 1538) [id number] BASIC METABOLIC [id number] 06:32:00 Test Item Value Reference Range Interpretation Comments SODIUM (BEAKER) 141 meq/L 136-145 (test code = 381) POTASSIUM (BEAKER) 4.2 meq/L 3.5-5.1 (test code = 379) CHLORIDE (BEAKER) 111 meq/L 98-107 H (test code = 382) CO2 (BEAKER) (test 20 meq/L 22-29 L code = 355) BLOOD UREA NITROGEN 30 mg/dL 7-21 H (BEAKER) (test code = 354) CREATININE (BEAKER) 2.59 mg/dL 0.57-1.25 H (test code = 358) GLUCOSE RANDOM 108 mg/dL 70-105 H (BEAKER) (test code = 652) CALCIUM (BEAKER) 8.3 mg/dL 8.4-10.2 L (test code = 697) EGFR (BEAKER) (test 20 mL/min/1.73 ESTIMA BRII GFR IS code = 1092) sq m NOT ACCURATE CREATININE CLEARANCE IN PREDICTING GLOMERULAR FILTRATION RATE . ESTIMATED GFR I S NOT APPLICABLE FOR DIALYSIS PATIEN TS. [id number] 06:25:00 Test Item Value Reference Range Interpretation Comments PHOSPHORUS (BEAKER) (test code = 3.9 mg/dL 2.3-4.7 604) [id number] 06:25:00 Test Item Value Reference Range Interpretation Comments MAGNESIUM (BEAKER) (test code = 1.9 mg/dL 1.6-2.6 627) POCT-GLUCOSE [id number] 21:15:00 Test Item Value Reference Range Interpretation Comments POC-GLUCOSE METER 152 mg/dL 70-110 H TESTED AT [facility] 6720 (BEAKER) (test code = GILDA Gates [place] 1538) [id number] POCT-GLUCOSE [id number] 17:06:00 Test Item Value Reference Range Interpretation Comments POC-GLUCOSE METER 226 mg/dL 70-110 H TESTED AT [facility] 6720 (BEAKER) (test code = GILDA Gates [place] 1538) [id number] POCT-GLUCOSE [id number] 12:49:00 Test Item Value Reference Range Interpretation Comments POC-GLUCOSE METER 394 mg/dL 70-110 H TESTED AT [facility] 6720 (BEAKER) (test code = GILDA Gates [place] 1538) [address] POCT-GLUCOSE [id number] 08:04:00 Test Item Value Reference Range Interpretation Comments POC-GLUCOSE METER 122 mg/dL 70-110 H TESTED AT [facility] 6720 (BEAKER) (test code = GILDA Gates [place] 1538) [address] BASIC METABOLIC [id number] 06:53:00 Test Item Value Reference Range Interpretation Comments SODIUM (BEAKER) 141 meq/L 136-145 (test code = 381) POTASSIUM (BEAKER) 4.2 meq/L 3.5-5.1 (test code = 379) CHLORIDE (BEAKER) 111 meq/L 98-107 H (test code = 382) CO2 (BEAKER) (test 18 meq/L 22-29 L code = 355) BLOOD UREA NITROGEN 29 mg/dL 7-21 H (BEAKER) (test code = 354) CREATININE (BEAKER) 2.68 mg/dL 0.57-1.25 H (test code = 358) GLUCOSE RANDOM 105 mg/dL 70-105 (BEAKER) (test code = 652) CALCIUM (BEAKER) 8.2 mg/dL 8.4-10.2 L (test code = 697) EGFR (BEAKER) (test 19 mL/min/1.73 ESTIMA BRII GFR IS code = 1092) sq m NOT ACCURATE CREATININE CLEARANCE IN PREDICTING GLOMERULAR FILTRATION RATE . ESTIMATED GFR I S NOT APPLICABLE FOR DIALYSIS PATIEN TS. [id number] 06:52:00 Test Item Value Reference Range Interpretation Comments PHOSPHORUS (BEAKER) (test code = 3.6 mg/dL 2.3-4.7 604) [id number] 06:52:00 Test Item Value Reference Range Interpretation Comments MAGNESIUM (BEAKER) (test code = 1.7 mg/dL 1.6-2.6 627) CBC W/PLT COUNT & AUTO [id number] 06:45:00 Test Item Value Reference Range Interpretation Comments WHITE BLOOD CELL COUNT (BEAKER) 5.2 K/ L 4.0-10.0 (test code = 775) RED BLOOD CELL COUNT (BEAKER) 3.13 M/ L 4.00-5.00 L (test code = 761) HEMOGLOBIN (BEAKER) (test code = 8.4 GM/DL 12.0-15.0 L 410) HEMATOCRIT (BEAKER) (test code = 26.3 % 36.0-45.0 L 411) MEAN CORPUSCULAR VOLUME (BEAKER) 84.1 fL 82.0-99.0 (test code = 753) MEAN CORPUSCULAR HEMOGLOBIN 26.7 pg 27.0-33.0 L (BEAKER) (test code = 751) MEAN CORPUSCULAR HEMOGLOBIN CONC 31.7 GM/DL 32.0-36.0 L (BEAKER) (test code = 752) RED CELL DISTRIBUTION WIDTH 16.6 % 10.3-14.2 H (BEAKER) (test code = 412) PLATELET COUNT (BEAKER) (test 204 K/CU MM 150-430 code = 756) MEAN PLATELET VOLUME (BEAKER) 8.1 fL 6.5-10.5 (test code = 754) NUCLEATED RED BLOOD CELLS 0 /100 WBC 0-0 (BEAKER) (test code = 413) NEUTROPHILS RELATIVE PERCENT 61 % (BEAKER) (test code = 429) LYMPHOCYTES RELATIVE PERCENT 29 % (BEAKER) (test code = 430) MONOCYTES RELATIVE PERCENT 7 % (BEAKER) (test code = 431) EOSINOPHILS RELATIVE PERCENT 2 % (BEAKER) (test code = 432) BASOPHILS RELATIVE PERCENT 1 % (BEAKER) (test code = 437) NEUTROPHILS ABSOLUTE COUNT 3.18 K/ L 1.80-8.00 (BEAKER) (test code = 670) LYMPHOCYTES ABSOLUTE COUNT 1.52 K/ L 1.48-4.50 (BEAKER) (test code = 414) MONOCYTES ABSOLUTE COUNT (BEAKER) 0.38 K/ L 0.00-1.30 (test code = 415) EOSINOPHILS ABSOLUTE COUNT 0.12 K/ L 0.00-0.50 (BEAKER) (test code = 416) BASOPHILS ABSOLUTE COUNT (BEAKER) 0.04 K/ L 0.00-0.20 (test code = 417) 0.00POCT-GLUCOSE [id number] 21:55:00 Test Item Value Reference Range Interpretation Comments POC-GLUCOSE METER 144 mg/dL 70-110 H TESTED AT [place] [address] ([facility]) ([facility] 1538[facility] [id number] POCT-GLUCOSE [id number] 18:14:00 Test Item Value Reference Range Interpretation Comments POC-GLUCOSE METER 166 mg/dL 70-110 H TESTED AT [place] [address] ([facility]) (test code = GILDA Gates [facility] 1538) [address] POCT-GLUCOSE [id number] 12:59:00 Test Item Value Reference Range Interpretation Comments POC-GLUCOSE METER 168 mg/dL 70-110 H TESTED AT [place] [address] ([facility]) (test code = GILDA Gates [facility] 1538) [address] POCT-GLUCOSE [id number] 09:21:00 Test Item Value Reference Range Interpretation Comments POC-GLUCOSE METER 94 mg/dL 70-110 TESTED AT [facility] 6720 (BEAKER) (test code = [place] [id number] 1538) CBC W/PLT COUNT & AUTO [id number] 07:28:00 Test Item Value Reference Range Interpretation Comments WHITE BLOOD CELL COUNT (BEAKER) 4.3 K/ L 4.0-10.0 (test code = 775) RED BLOOD CELL COUNT (BEAKER) 3.30 M/ L 4.00-5.00 L (test code = 761) HEMOGLOBIN (BEAKER) (test code = 8.2 GM/DL 12.0-15.0 L 410) HEMATOCRIT (BEAKER) (test code = 27.1 % 36.0-45.0 L 411) MEAN CORPUSCULAR VOLUME (BEAKER) 82.1 fL 82.0-99.0 (test code = 753) MEAN CORPUSCULAR HEMOGLOBIN 24.8 pg 27.0-33.0 L (BEAKER) (test code = 751) MEAN CORPUSCULAR HEMOGLOBIN CONC 30.2 GM/DL 32.0-36.0 L (BEAKER) (test code = 752) RED CELL DISTRIBUTION WIDTH 15.6 % 10.3-14.2 H (BEAKER) (test code = 412) PLATELET COUNT (BEAKER) (test 216 K/CU MM 150-430 code = 756) MEAN PLATELET VOLUME (BEAKER) 7.9 fL 6.5-10.5 (test code = 754) NUCLEATED RED BLOOD CELLS 0 /100 WBC 0-0 (BEAKER) (test code = 413) NEUTROPHILS RELATIVE PERCENT 50 % (BEAKER) (test code = 429) LYMPHOCYTES RELATIVE PERCENT 39 % (BEAKER) (test code = 430) MONOCYTES RELATIVE PERCENT 10 % (BEAKER) (test code = 431) EOSINOPHILS RELATIVE PERCENT 2 % (BEAKER) (test code = 432) BASOPHILS RELATIVE PERCENT 0 % (BEAKER) (test code = 437) NEUTROPHILS ABSOLUTE COUNT 2.14 K/ L 1.80-8.00 (BEAKER) (test code = 670) LYMPHOCYTES ABSOLUTE COUNT 1.64 K/ L 1.48-4.50 (BEAKER) (test code = 414) MONOCYTES ABSOLUTE COUNT (BEAKER) 0.41 K/ L 0.00-1.30 (test code = 415) EOSINOPHILS ABSOLUTE COUNT 0.06 K/ L 0.00-0.50 (BEAKER) (test code = 416) BASOPHILS ABSOLUTE COUNT (BEAKER) 0.00 K/ L 0.00-0.20 (test code = 417) 0.00POCT-GLUCOSE [id number] 07:01:00 Test Item Value Reference Range Interpretation Comments POC-GLUCOSE METER 126 mg/dL 70-110 H TESTED AT [facility] 6720 (BEAKER) (test code = GILDA [place] 1538) [id number] BASIC METABOLIC [id number] 06:16:00 Test Item Value Reference Range Interpretation Comments SODIUM (BEAKER) 144 meq/L 136-145 (test code = 381) POTASSIUM (BEAKER) 4.0 meq/L 3.5-5.1 (test code = 379) CHLORIDE (BEAKER) 112 meq/L 98-107 H (test code = 382) CO2 (BEAKER) (test 20 meq/L 22-29 L code = 355) BLOOD UREA NITROGEN 27 mg/dL 7-21 H (BEAKER) (test code = 354) CREATININE (BEAKER) 2.46 mg/dL 0.57-1.25 H (test code = 358) GLUCOSE RANDOM 63 mg/dL 70-105 L (BEAKER) (test code = 652) CALCIUM (BEAKER) 8.5 mg/dL 8.4-10.2 (test code = 697) EGFR (BEAKER) (test 21 mL/min/1.73 ESTIMA BRII GFR IS code = 1092) sq m NOT ACCURATE CREATININE CLEARANCE IN PREDICTING GLOMERULAR FILTRATION RATE . ESTIMATED GFR I S NOT APPLICABLE FOR DIALYSIS PATIEN TS. [id number] 06:13:00 Test Item Value Reference Range Interpretation Comments PHOSPHORUS (BEAKER) (test code = 3.2 mg/dL 2.3-4.7 604) [id number] 06:13:00 Test Item Value Reference Range Interpretation Comments MAGNESIUM (BEAKER) (test code = 1.9 mg/dL 1.6-2.6 627) POCT-GLUCOSE [id number] 04:26:00 Test Item Value Reference Range Interpretation Comments POC-GLUCOSE METER 73 mg/dL 70-110 TESTED AT [facility] 67 ([facility]) (test code = GILDA Gates [facility] [id number] 1538) POCT-GLUCOSE [id number] 02:34:00 Test Item Value Reference Range Interpretation Comments POC-GLUCOSE METER 84 mg/dL 70-110 TESTED AT [facility] 6720 ([facility]) (test code = GILDA Gates [facility] [address] 1538) POCT-GLUCOSE [id number] 21:03:00 Test Item Value Reference Range Interpretation Comments POC-GLUCOSE METER 228 mg/dL 70-110 H TESTED AT [place] [address] ([facility]) (test code = GILDA Gates [facility] 1538) [id number] POCT-GLUCOSE [id number] 18:20:00 Test Item Value Reference Range Interpretation Comments POC-GLUCOSE METER 184 mg/dL 70-110 H TESTED AT [place] [address] ([facility]) (test code = GILDA Gates [facility] 1538) [address] CMV PCR, [id number] 14:10:00 Test Item Value Reference Range Interpretation Comments CMV VIRAL LOAD - POSITIVE 735538 copies/ml ([facility]) (test code = 1557) Cytomegalovirus (CMV) infection can cause significant disease in immunosuppressed patients. However,it is common for CMV to manifest as a limited infection which is of no clinical significance in immunosuppressed patients or in healthy individuals.Viral load measurements are helpful to identify clinical CMV infection and to guide the pre-emptive management of antiviral therapy. For treatment of CMVinfection due to reactivation in transplant recipients, a threshold between 4,000 and 5,000 copies/mL is suggested. For treatment of primary CMV infection, a lower threshold can be used.CMV infection may also be monitored using weekly serial measurements. Serial measurements of CMV DNA viral load canbe evaluated by identifying a 10-fold change, as well as assessing the CMV DNA viral load and the clinical context for each patient.The plasma CMV DNA viral load was detected using quantitative polymerase chain reaction and fluorescent monitoring of a specific hybridized probe. Genetic variation and ot her factors can affect the accuracy of nucleic acid testing. Therefore, the results should be interpreted in light of clinical data. A negative result may not exclude the presence of CMV disease.This test was developed and its performance characteristics determined by the [facility], Section of Molecular Pathology. It has not been cleared or approved by the U.S. Food and Drug Administration (FDA), since FDA approval is not required for clinical use of the test. Validation was done as required by The Clinical Laboratory Improvement Amendments of 1988.TACROLIMUS LEVEL 2016-08-23 10:10:00 Test Item Value Reference Range Interpretation Comments TACROLIMUS BLOOD (BEAKER) (test 9.7 ng/mL 10.0-20.0 L code = 657) 30 minutes prior to AM doseCBC W/PLT COUNT & AUTO [id number] 08:49:00 Test Item Value Reference Range Interpretation Comments WHITE BLOOD CELL COUNT (BEAKER) 5.3 K/ L 4.0-10.0 (test code = 775) RED BLOOD CELL COUNT (BEAKER) 3.22 M/ L 4.00-5.00 L (test code = 761) HEMOGLOBIN (BEAKER) (test code = 8.9 GM/DL 12.0-15.0 L 410) HEMATOCRIT (BEAKER) (test code = 26.8 % 36.0-45.0 L 411) MEAN CORPUSCULAR VOLUME (BEAKER) 83.3 fL 82.0-99.0 (test code = 753) MEAN CORPUSCULAR HEMOGLOBIN 27.6 pg 27.0-33.0 (BEAKER) (test code = 751) MEAN CORPUSCULAR HEMOGLOBIN CONC 33.2 GM/DL 32.0-36.0 (BEAKER) (test code = 752) RED CELL DISTRIBUTION WIDTH 16.4 % 10.3-14.2 H (BEAKER) (test code = 412) PLATELET COUNT (BEAKER) (test 195 K/CU MM 150-430 code = 756) MEAN PLATELET VOLUME (BEAKER) 7.8 fL 6.5-10.5 (test code = 754) NUCLEATED RED BLOOD CELLS 0 /100 WBC 0-0 (BEAKER) (test code = 413) [id number](MANUAL DIFFERENTIAL)2016-08-23 08:49:00 Test Item Value Reference Range Interpretation Comments NEUTROPHILS - REL (DIFF) (BEAKER) 43 % (test code = 1359) LYMPHOCYTES - REL (DIFF) (BEAKER) 29 % (test code = 1360) MONOCYTES - REL (DIFF) (BEAKER) 4 % (test code = 1361) METAMYELOCYTES-REL (DIFF) (BEAKER) 1 % 0-0 H (test code = 258) BANDS - REL (DIFF) (BEAKER) (test 23 % 0-10 H code = 1348) NEUTROPHILS - ABS (DIFF) (BEAKER) 2.28 K/ L 1.80-8.00 (test code = 1365) LYMPHOCYTES - ABS (DIFF) (BEAKER) 1.54 K/ L 1.48-4.50 (test code = 1366) MONOCYTES - ABS (DIFF) (BEAKER) 0.21 K/ L 0.00-1.30 (test code = 1367) METAMYELOCTYES - ABS (DIFF) 0.05 K/ L 0.00-0.00 H (BEAKER) (test code = 261) BANDS-ABS (DIFF) (BEAKER) (test 1.2 K/ L 0.0-0.8 H code = 1349) TOTAL COUNTED (BEAKER) (test code 100 = 1351) BANDS + SEGMENTED NEUTROPHILS 3.50 (BEAKER) (test code = 1352) MANUAL NRBC PER 100 CELLS (BEAKER) 1 /100 WBC 0-0 H (test code = 1353) WBC MORPHOLOGY (BEAKER) (test code Normal = 487) PLT MORPHOLOGY (BEAKER) (test code Normal = 486) POLYCHROMATOPHILLIC RBCS(BEAKER) 1+ few (test code = 478) TEAR DROP CELLS (BEAKER) (test 1+ few code = 481) POCT-GLUCOSE [id number] 07:51:00 Test Item Value Reference Range Interpretation Comments POC-GLUCOSE METER 181 mg/dL 70-110 H TESTED AT [facility] 6720 (BEAKER) (test code = [place]AS[place]Y [place] 1538) [address] BASIC METABOLIC [id number] 06:17:00 Test Item Value Reference Range Interpretation Comments SODIUM (BEAKER) 141 meq/L 136-145 (test code = 381) POTASSIUM (BEAKER) 4.1 meq/L 3.5-5.1 Specimen slightly (test code = 379) hemolyzed CHLORIDE (BEAKER) 108 meq/L 98-107 H (test code = 382) CO2 (BEAKER) (test 19 meq/L 22-29 L code = 355) BLOOD UREA NITROGEN 24 mg/dL 7-21 H (BEAKER) (test code = 354) CREATININE (BEAKER) 2.53 mg/dL 0.57-1.25 H Specimen slightly (test code = 358) hemolyzed GLUCOSE RANDOM 156 mg/dL 70-105 H (BEAKER) (test code = 652) CALCIUM (BEAKER) 8.4 mg/dL 8.4-10.2 (test code = 697) EGFR (BEAKER) (test 20 mL/min/1.73 ESTIMA BRII GFR IS code = 1092) sq m NOT ACCURATE CREATININE CLEARANCE IN PREDICTING GLOMERULAR FILTRATION RATE . ESTIMATED GFR I S NOT APPLICABLE FOR DIALYSIS PATIEN TS. [id number] 06:09:00 Test Item Value Reference Range Interpretation Comments MAGNESIUM (BEAKER) 1.9 mg/dL 1.6-2.6 Specimen slightly (test code = 627) hemolyzed [id number] 06:09:00 Test Item Value Reference Range Interpretation Comments PHOSPHORUS (BEAKER) 2.7 mg/dL 2.3-4.7 Specimen slightly (test code = 604) hemolyzed POCT-GLUCOSE [id number] 21:42:00 Test Item Value Reference Range Interpretation Comments POC-GLUCOSE METER 209 mg/dL 70-110 H TESTED AT [place] [address] ([facility]) (test code = GILDA Gates [facility] 1538) [address] POCT-GLUCOSE [id number] 17:10:00 Test Item Value Reference Range Interpretation Comments POC-GLUCOSE METER 233 mg/dL 70-110 H TESTED AT [place] [address] ([facility]) (test code = GILDA Gates [facility] 1538) [id number] POCT-GLUCOSE [id number] 12:54:00 Test Item Value Reference Range Interpretation Comments POC-GLUCOSE METER 174 mg/dL 70-110 H TESTED AT [place] [address] ([facility]) (test code = GILDA Gates [facility] 1538) [id number] TACROLIMUS [id number] 11:07:00 Test Item Value Reference Range Interpretation Comments TACROLIMUS BLOOD ([facility]) (test 12.2 ng/mL 10.0-20.0 code = 657) 30 minutes prior to AM doseBASIC METABOLIC [id number] 08:41:00 Test Item Value Reference Range Interpretation Comments SODIUM (BEAKER) 143 meq/L 136-145 (test code = 381) POTASSIUM (BEAKER) 4.2 meq/L 3.5-5.1 Specimen slightly (test code = 379) hemolyzed CHLORIDE (BEAKER) 110 meq/L 98-107 H (test code = 382) CO2 (BEAKER) (test 19 meq/L 22-29 L code = 355) BLOOD UREA NITROGEN 20 mg/dL 7-21 (BEAKER) (test code = 354) CREATININE (BEAKER) 2.27 mg/dL 0.57-1.25 H Specimen slightly (test code = 358) hemolyzed GLUCOSE RANDOM 62 mg/dL 70-105 L (BEAKER) (test code = 652) CALCIUM (BEAKER) 7.9 mg/dL 8.4-10.2 L (test code = 697) EGFR (BEAKER) (test 23 mL/min/1.73 ESTIMA BRII GFR IS code = 1092) sq m NOT ACCURATE CREATININE CLEARANCE IN PREDICTING GLOMERULAR FILTRATION RATE . ESTIMATED GFR I S NOT APPLICABLE FOR DIALYSIS PATIEN TS. CBC W/PLT COUNT & AUTO [id number] 08:25:00 Test Item Value Reference Range Interpretation Comments WHITE BLOOD CELL COUNT (BEAKER) 5.7 K/ L 4.0-10.0 (test code = 775) RED BLOOD CELL COUNT (BEAKER) 3.34 M/ L 4.00-5.00 L (test code = 761) HEMOGLOBIN (BEAKER) (test code = 9.0 GM/DL 12.0-15.0 L 410) HEMATOCRIT (BEAKER) (test code = 27.6 % 36.0-45.0 L 411) MEAN CORPUSCULAR VOLUME (BEAKER) 82.6 fL 82.0-99.0 (test code = 753) MEAN CORPUSCULAR HEMOGLOBIN 27.1 pg 27.0-33.0 (BEAKER) (test code = 751) MEAN CORPUSCULAR HEMOGLOBIN CONC 32.7 GM/DL 32.0-36.0 (BEAKER) (test code = 752) RED CELL DISTRIBUTION WIDTH 15.4 % 10.3-14.2 H (BEAKER) (test code = 412) PLATELET COUNT (BEAKER) (test 143 K/CU MM 150-430 L code = 756) MEAN PLATELET VOLUME (BEAKER) 8.7 fL 6.5-10.5 (test code = 754) NUCLEATED RED BLOOD CELLS 0 /100 WBC 0-0 (BEAKER) (test code = 413) NEUTROPHILS RELATIVE PERCENT 53 % (BEAKER) (test code = 429) LYMPHOCYTES RELATIVE PERCENT 38 % (BEAKER) (test code = 430) MONOCYTES RELATIVE PERCENT 7 % (BEAKER) (test code = 431) EOSINOPHILS RELATIVE PERCENT 2 % (BEAKER) (test code = 432) BASOPHILS RELATIVE PERCENT 0 % (BEAKER) (test code = 437) NEUTROPHILS ABSOLUTE COUNT 2.99 K/ L 1.80-8.00 (BEAKER) (test code = 670) LYMPHOCYTES ABSOLUTE COUNT 2.16 K/ L 1.48-4.50 (BEAKER) (test code = 414) MONOCYTES ABSOLUTE COUNT (BEAKER) 0.40 K/ L 0.00-1.30 (test code = 415) EOSINOPHILS ABSOLUTE COUNT 0.12 K/ L 0.00-0.50 (BEAKER) (test code = 416) BASOPHILS ABSOLUTE COUNT (BEAKER) 0.00 K/ L 0.00-0.20 (test code = 417) [id number] 08:01:00 Test Item Value Reference Range Interpretation Comments MAGNESIUM (BEAKER) 1.5 mg/dL 1.6-2.6 L Specimen slightly (test code = 627) hemolyzed [id number] 08:01:00 Test Item Value Reference Range Interpretation Comments PHOSPHORUS (BEAKER) 2.6 mg/dL 2.3-4.7 Specimen slightly (test code = 604) hemolyzed BLOOD [id number] 06:00:00 Test Item Value Reference Range Interpretation Comments CULTURE (BEAKER) (test No growth in 5 days code = 1095) BLOOD [id number] 06:00:00 Test Item Value Reference Range Interpretation Comments CULTURE (BEAKER) (test No growth in 5 days code = 1095) POCT-GLUCOSE [id number] 21:35:00 Test Item Value Reference Range Interpretation Comments POC-GLUCOSE METER 171 mg/dL 70-110 H TESTED AT [facility] 6720 (BEAKER) (test code = GILDA HANKS 1538) [id number] POCT-GLUCOSE [id number] 17:27:00 Test Item Value Reference Range Interpretation Comments POC-GLUCOSE METER 218 mg/dL 70-110 H TESTED AT [facility] 6720 (BEAKER) (test code = GILDA Gates [place] 1538) [id number] POCT-GLUCOSE [id number] 14:38:00 Test Item Value Reference Range Interpretation Comments POC-GLUCOSE METER 168 mg/dL 70-110 H TESTED AT [facility] 6720 (BEAKER) (test code = GILDA Gates [facility] 1538) [id number] CBC W/PLT COUNT & AUTO [id number] 14:16:00 Test Item Value Reference Range Interpretation Comments WHITE BLOOD CELL COUNT (BEAKER) 4.0 K/ L 4.0-10.0 (test code = 775) RED BLOOD CELL COUNT (BEAKER) 3.24 M/ L 4.00-5.00 L (test code = 761) HEMOGLOBIN (BEAKER) (test code = 8.8 GM/DL 12.0-15.0 L 410) HEMATOCRIT (BEAKER) (test code = 26.8 % 36.0-45.0 L 411) MEAN CORPUSCULAR VOLUME (BEAKER) 82.8 fL 82.0-99.0 (test code = 753) MEAN CORPUSCULAR HEMOGLOBIN 27.3 pg 27.0-33.0 (BEAKER) (test code = 751) MEAN CORPUSCULAR HEMOGLOBIN CONC 32.9 GM/DL 32.0-36.0 (BEAKER) (test code = 752) RED CELL DISTRIBUTION WIDTH 15.8 % 10.3-14.2 H (BEAKER) (test code = 412) PLATELET COUNT (BEAKER) (test 140 K/CU MM 150-430 L code = 756) MEAN PLATELET VOLUME (BEAKER) 8.1 fL 6.5-10.5 (test code = 754) NUCLEATED RED BLOOD CELLS 0 /100 WBC 0-0 (BEAKER) (test code = 413) NEUTROPHILS RELATIVE PERCENT 62 % (BEAKER) (test code = 429) LYMPHOCYTES RELATIVE PERCENT 26 % (BEAKER) (test code = 430) MONOCYTES RELATIVE PERCENT 10 % (BEAKER) (test code = 431) EOSINOPHILS RELATIVE PERCENT 2 % (BEAKER) (test code = 432) BASOPHILS RELATIVE PERCENT 0 % (BEAKER) (test code = 437) NEUTROPHILS ABSOLUTE COUNT 2.49 K/ L 1.80-8.00 (BEAKER) (test code = 670) LYMPHOCYTES ABSOLUTE COUNT 1.04 K/ L 1.48-4.50 L (BEAKER) (test code = 414) MONOCYTES ABSOLUTE COUNT (BEAKER) 0.41 K/ L 0.00-1.30 (test code = 415) EOSINOPHILS ABSOLUTE COUNT 0.06 K/ L 0.00-0.50 (BEAKER) (test code = 416) BASOPHILS ABSOLUTE COUNT (BEAKER) 0.02 K/ L 0.00-0.20 (test code = 417) [id number](MANUAL DIFFERENTIAL)2016-08-21 14:16:00 Test Item Value Reference Range Interpretation Comments TOTAL COUNTED (BEAKER) (test code = 1351) WBC MORPHOLOGY (BEAKER) (test code = Normal 487) PLT MORPHOLOGY (BEAKER) (test code = Normal 486) RBC MORPHOLOGY (BEAKER) (test code = Normal 762) COCCIDIAN [id number] 12:50:00 Test Item Value Reference Range Interpretation Comments CRYPTOSPORIDIA RESULT No Cryptosporidia No Cryptosporidia (BEAKER) (test code = seen seen 1420) CYCLOSPORA RESULT No Cyclospora seen No Cyclospora seen (BEAKER) (test code = 2174) ISOSPORA RESULT No Isospora species No Isospora mireya (BEAKER) (test code = oocysts seen oocysts seen, No 2175) Isospora hominis oocysts POCT-GLUCOSE [id number] 09:16:00 Test Item Value Reference Range Interpretation Comments POC-GLUCOSE METER 86 mg/dL 70-110 TESTED AT [facility] 6720 (BEAKER) (test code = GILDA Gates [facility] [address] 1538) TACROLIMUS [id number] 09:06:00 Test Item Value Reference Range Interpretation Comments TACROLIMUS BLOOD (BEAKER) (test 8.6 ng/mL 10.0-20.0 L code = 657) 30 minutes prior to AM doseBASIC METABOLIC [id number] 07:24:00 Test Item Value Reference Range Interpretation Comments SODIUM (BEAKER) 145 meq/L 136-145 (test code = 381) POTASSIUM (BEAKER) 3.3 meq/L 3.5-5.1 L (test code = 379) CHLORIDE (BEAKER) 105 meq/L 98-107 (test code = 382) CO2 (BEAKER) (test 25 meq/L 22-29 code = 355) BLOOD UREA NITROGEN 20 mg/dL 7-21 (BEAKER) (test code = 354) CREATININE (BEAKER) 2.36 mg/dL 0.57-1.25 H (test code = 358) GLUCOSE RANDOM 67 mg/dL 70-105 L (BEAKER) (test code = 652) CALCIUM (BEAKER) 8.0 mg/dL 8.4-10.2 L (test code = 697) EGFR (BEAKER) (test 22 mL/min/1.73 ESTIMA BRII GFR IS code = 1092) sq m NOT ACCURATE CREATININE CLEARANCE IN PREDICTING GLOMERULAR FILTRATION RATE . ESTIMATED GFR I S NOT APPLICABLE FOR DIALYSIS PATIEN TS. [id number] 07:20:00 Test Item Value Reference Range Interpretation Comments PHOSPHORUS (BEAKER) (test code = 2.0 mg/dL 2.3-4.7 L 604) [id number] 07:20:00 Test Item Value Reference Range Interpretation Comments MAGNESIUM (BEAKER) (test code = 1.6 mg/dL 1.6-2.6 627) POCT-GLUCOSE [id number] 21:22:00 Test Item Value Reference Range Interpretation Comments POC-GLUCOSE METER 99 mg/dL 70-110 TESTED AT [facility] 67 ([facility]) (test code = [facility] [address] 1538) POCT-GLUCOSE [id number] 17:30:00 Test Item Value Reference Range Interpretation Comments POC-GLUCOSE METER 240 mg/dL 70-110 H TESTED AT [facility] 6720 ([facility]) (test code = [facility] 1538) [address] CMV PCR, [id number] 13:55:00 Test Item Value Reference Range Interpretation Comments CMV VIRAL LOAD - POSITIVE > copies/ml ([facility]) (test code = 1557) Cytomegalovirus (CMV) infection can cause significant disease in immunosuppressed patients. However,it is common for CMV to manifest as a limited infection which is of no clinical significance in immunosuppressed patients or in healthy individuals.Viral load measurements are helpful to identify clinical CMV infection and to guide the pre-emptive management of antiviral therapy. For treatment of CMVinfection due to reactivation in transplant recipients, a threshold between 4,000 and 5,000 copies/mL is suggested. For treatment of primary CMV infection, a lower threshold can be used.CMV infection may also be monitored using weekly serial measurements. Serial measurements of CMV DNA viral load canbe evaluated by identifying a 10-fold change, as well as assessing the CMV DNA viral load and the clinical context for each patient.The plasma CMV DNA viral load was detected using quantitative polymerase chain reaction and fluorescent monitoring of a specific hybridized probe. Genetic variation and ot her factors can affect the accuracy of nucleic acid testing. Therefore, the results should be interpreted in light of clinical data. A negative result may not exclude the presence of CMV disease.This test was developed and its performance characteristics determined by the [facility], Section of Molecular Pathology. It has not been cleared or approved by the U.S. Food and Drug Administration (FDA), since FDA approval is not required for clinical use of the test. Validation was done as required by The Clinical Laboratory Improvement Amendments of 1988.POCT-GLUCOSE METER 2016-08-20 11:34:00 Test Item Value Reference Range Interpretation Comments POC-GLUCOSE METER 147 mg/dL 70-110 H TESTED AT [place] [address] ([facility]) (test code = [facility] 1538) [address] TACROLIMUS [id number] 10:24:00 Test Item Value Reference Range Interpretation Comments TACROLIMUS BLOOD ([facility]) (test 7.7 ng/mL 10.0-20.0 L code = 657) 30 minutes prior to AM dosePOCT-GLUCOSE [id number] 08:18:00 Test Item Value Reference Range Interpretation Comments POC-GLUCOSE METER 88 mg/dL 70-110 TESTED AT [place] [address] ([facility]) (test code = [facility] [address] 1538) BASIC METABOLIC [id number] 07:15:00 Test Item Value Reference Range Interpretation Comments SODIUM (BEAKER) 144 meq/L 136-145 (test code = 381) POTASSIUM (BEAKER) 3.9 meq/L 3.5-5.1 (test code = 379) CHLORIDE (BEAKER) 106 meq/L 98-107 (test code = 382) CO2 (BEAKER) (test 29 meq/L 22-29 code = 355) BLOOD UREA NITROGEN 26 mg/dL 7-21 H (BEAKER) (test code = 354) CREATININE (BEAKER) 2.61 mg/dL 0.57-1.25 H (test code = 358) GLUCOSE RANDOM 72 mg/dL 70-105 (BEAKER) (test code = 652) CALCIUM (BEAKER) 8.1 mg/dL 8.4-10.2 L (test code = 697) EGFR (BEAKER) (test 20 mL/min/1.73 ESTIMA BRII GFR IS code = 1092) sq m NOT ACCURATE CREATININE CLEARANCE IN PREDICTING GLOMERULAR FILTRATION RATE . ESTIMATED GFR I S NOT APPLICABLE FOR DIALYSIS PATIEN TS. [id number] 07:13:00 Test Item Value Reference Range Interpretation Comments PHOSPHORUS (BEAKER) (test code = 2.0 mg/dL 2.3-4.7 L 604) [id number] 07:13:00 Test Item Value Reference Range Interpretation Comments MAGNESIUM (BEAKER) (test code = 1.9 mg/dL 1.6-2.6 627) CBC W/PLT COUNT & AUTO [id number] 06:58:00 Test Item Value Reference Range Interpretation Comments WHITE BLOOD CELL COUNT (BEAKER) 3.6 K/ L 4.0-10.0 L (test code = 775) RED BLOOD CELL COUNT (BEAKER) 3.37 M/ L 4.00-5.00 L (test code = 761) HEMOGLOBIN (BEAKER) (test code = 8.9 GM/DL 12.0-15.0 L 410) HEMATOCRIT (BEAKER) (test code = 27.8 % 36.0-45.0 L 411) MEAN CORPUSCULAR VOLUME (BEAKER) 82.4 fL 82.0-99.0 (test code = 753) MEAN CORPUSCULAR HEMOGLOBIN 26.4 pg 27.0-33.0 L (BEAKER) (test code = 751) MEAN CORPUSCULAR HEMOGLOBIN CONC 32.0 GM/DL 32.0-36.0 (BEAKER) (test code = 752) RED CELL DISTRIBUTION WIDTH 15.1 % 10.3-14.2 H (BEAKER) (test code = 412) PLATELET COUNT (BEAKER) (test 123 K/CU MM 150-430 L code = 756) MEAN PLATELET VOLUME (BEAKER) 7.9 fL 6.5-10.5 (test code = 754) NUCLEATED RED BLOOD CELLS 0 /100 WBC 0-0 (BEAKER) (test code = 413) NEUTROPHILS RELATIVE PERCENT 65 % (BEAKER) (test code = 429) LYMPHOCYTES RELATIVE PERCENT 21 % (BEAKER) (test code = 430) MONOCYTES RELATIVE PERCENT 12 % (BEAKER) (test code = 431) EOSINOPHILS RELATIVE PERCENT 2 % (BEAKER) (test code = 432) BASOPHILS RELATIVE PERCENT 0 % (BEAKER) (test code = 437) NEUTROPHILS ABSOLUTE COUNT 2.32 K/ L 1.80-8.00 (BEAKER) (test code = 670) LYMPHOCYTES ABSOLUTE COUNT 0.76 K/ L 1.48-4.50 L (BEAKER) (test code = 414) MONOCYTES ABSOLUTE COUNT (BEAKER) 0.44 K/ L 0.00-1.30 (test code = 415) EOSINOPHILS ABSOLUTE COUNT 0.06 K/ L 0.00-0.50 (BEAKER) (test code = 416) BASOPHILS ABSOLUTE COUNT (BEAKER) 0.00 K/ L 0.00-0.20 (test code = 417) 0.00POCT-GLUCOSE [id number] 21:04:00 Test Item Value Reference Range Interpretation Comments POC-GLUCOSE METER 106 mg/dL 70-110 TESTED AT [place] [address] ([facility]) (test code = [facility] 1538) [address] POCT-GLUCOSE [id number] 18:09:00 Test Item Value Reference Range Interpretation Comments POC-GLUCOSE METER 169 mg/dL 70-110 H TESTED AT [place] [address] ([facility]) (test code = [facility] 1538) [address] CMV PCR, [id number] 14:20:00 Test Item Value Reference Range Interpretation Comments CMV VIRAL LOAD - POSITIVE > copies/ml ([facility]) (test code = 1557) Cytomegalovirus (CMV) infection can cause significant disease in immunosuppressed patients. However,it is common for CMV to manifest as a limited infection which is of no clinical significance in immunosuppressed patients or in healthy individuals.Viral load measurements are helpful to identify clinical CMV infection and to guide the pre-emptive management of antiviral therapy. For treatment of CMVinfection due to reactivation in transplant recipients, a threshold between 4,000 and 5,000 copies/mL is suggested. For treatment of primary CMV infection, a lower threshold can be used.CMV infection may also be monitored using weekly serial measurements. Serial measurements of CMV DNA viral load canbe evaluated by identifying a 10-fold change, as well as assessing the CMV DNA viral load and the clinical context for each patient.The plasma CMV DNA viral load was detected using quantitative polymerase chain reaction and fluorescent monitoring of a specific hybridized probe. Genetic variation and ot her factors can affect the accuracy of nucleic acid testing. Therefore, the results should be interpreted in light of clinical data. A negative result may not exclude the presence of CMV disease.This test was developed and its performance characteristics determined by the [facility], Section of Molecular Pathology. It has not been cleared or approved by the U.S. Food and Drug Administration (FDA), since FDA approval is not required for clinical use of the test. Validation was done as required by The Clinical Laboratory Improvement Amendments of 1988.CREATININE, RANDOM URINE 2016-08-19 14:12:00 Test Item Value Reference Range Interpretation Comments CREATININE URINE (BEAKER) (test 64.4 mg/dL code = 375) Reference Range: No NormalsPROTEIN, RANDOM [id number] 14:12:00 Test Item Value Reference Range Interpretation Comments PROTEIN, URINE (BEAKER) (test code 183 mg/dL 0-14 H = 1569) POCT-GLUCOSE [id number] 13:10:00 Test Item Value Reference Range Interpretation Comments POC-GLUCOSE METER 116 mg/dL 70-110 H TESTED AT [facility] 6720 ([facility]) (test code = [facility]aj[facility] 1538) [address] BK VIRUS PCR, [id number] 13:08:00 Test Item Value Reference Range Interpretation Comments BK VIRUS, PLASMA, NEG Negative or below the (BEAKER) (test code = linear range of the 2145) assay (<1,000 copies/mL) Patients may have replicating BK Virus which is of no clinical significance. Viral load measurements are helpful to identify BK Virus replication of potential clinical significance. Consensus recommendations have been published of threshold values for the presumptive diagnosis of polyomavirus-associated nephropathy (Transplantation 2005;[id number]).A BK Virus load greater than 5,000-10,000 copies/mL in the plasma is consistent with the presumptive diagnosis of polyoma-associated nephropathy in renal transplant recipients.BK Virus DNA was assessed using quantitative polymerase chain reaction and fluorescent monitoring of a specific hybridized probe. Genetic variation and other factors can affect the accuracy of nucleic acid testing. Therefore, the results should be interpreted in light of clinical data.This test was developed and its performance characteristics determined by the [facility], Section of Molecular Pathology. It has not been cleared or approved by the U.S. Food and Drug Administration (FDA). Since FDA approval is not required for clinicaluse of the test, validation was done as required by the Clinical Laboratory Improvement Amendments of 1988.STOOL CULTURE + SHIGA [id number] 12:43:00 Test Item Value Reference Range Interpretation Comments CULTURE (BEAKER) No Salmonella, Shigella (test code = 1095) or Campylobacter isolated Unable to test for Shiga Toxin 1 due to insufficient growth of specimen.Unable to test for Shiga Toxin 2 due to insufficient growth of specimen.POCT-GLUCOSE [id number] 08:25:00 Test Item Value Reference Range Interpretation Comments POC-GLUCOSE METER 67 mg/dL 70-110 L Notified Yajaira Thomas MD/TESTED AT ([facility]) ([facility] = [facility] [address] 1538) [facility] 7703 0 CBC W/PLT COUNT & AUTO [id number] 07:18:00 Test Item Value Reference Range Interpretation Comments WHITE BLOOD CELL COUNT (BEAKER) 3.0 K/ L 4.0-10.0 L (test code = 775) RED BLOOD CELL COUNT (BEAKER) 3.10 M/ L 4.00-5.00 L (test code = 761) HEMOGLOBIN (BEAKER) (test code = 9.0 GM/DL 12.0-15.0 L 410) HEMATOCRIT (BEAKER) (test code = 25.0 % 36.0-45.0 L 411) MEAN CORPUSCULAR VOLUME (BEAKER) 80.8 fL 82.0-99.0 L (test code = 753) MEAN CORPUSCULAR HEMOGLOBIN 28.9 pg 27.0-33.0 (BEAKER) (test code = 751) MEAN CORPUSCULAR HEMOGLOBIN CONC 35.7 GM/DL 32.0-36.0 (BEAKER) (test code = 752) RED CELL DISTRIBUTION WIDTH 15.0 % 10.3-14.2 H (BEAKER) (test code = 412) PLATELET COUNT (BEAKER) (test 126 K/CU MM 150-430 L code = 756) MEAN PLATELET VOLUME (BEAKER) 7.7 fL 6.5-10.5 (test code = 754) NUCLEATED RED BLOOD CELLS 0 /100 WBC 0-0 (BEAKER) (test code = 413) NEUTROPHILS RELATIVE PERCENT 71 % (BEAKER) (test code = 429) LYMPHOCYTES RELATIVE PERCENT 19 % (BEAKER) (test code = 430) MONOCYTES RELATIVE PERCENT 9 % (BEAKER) (test code = 431) EOSINOPHILS RELATIVE PERCENT 1 % (BEAKER) (test code = 432) BASOPHILS RELATIVE PERCENT 0 % (BEAKER) (test code = 437) NEUTROPHILS ABSOLUTE COUNT 2.12 K/ L 1.80-8.00 (BEAKER) (test code = 670) LYMPHOCYTES ABSOLUTE COUNT 0.55 K/ L 1.48-4.50 L (BEAKER) (test code = 414) MONOCYTES ABSOLUTE COUNT (BEAKER) 0.28 K/ L 0.00-1.30 (test code = 415) EOSINOPHILS ABSOLUTE COUNT 0.03 K/ L 0.00-0.50 (BEAKER) (test code = 416) BASOPHILS ABSOLUTE COUNT (BEAKER) 0.00 K/ L 0.00-0.20 (test code = 417) 0.00BASI METABOLIC [id number] 07:15:00 Test Item Value Reference Range Interpretation Comments SODIUM (BEAKER) 146 meq/L 136-145 H (test code = 381) POTASSIUM (BEAKER) 3.3 meq/L 3.5-5.1 L (test code = 379) CHLORIDE (BEAKER) 109 meq/L 98-107 H (test code = 382) CO2 (BEAKER) (test 24 meq/L 22-29 code = 355) BLOOD UREA NITROGEN 38 mg/dL 7-21 H (BEAKER) (test code = 354) CREATININE (BEAKER) 2.95 mg/dL 0.57-1.25 H (test code = 358) GLUCOSE RANDOM 48 mg/dL 70-105 L (BEAKER) (test code = 652) CALCIUM (BEAKER) 8.1 mg/dL 8.4-10.2 L (test code = 697) EGFR (BEAKER) (test 17 mL/min/1.73 ESTIMA BRII GFR IS code = 1092) sq m NOT ACCURATE CREATININE CLEARANCE IN PREDICTING GLOMERULAR FILTRATION RATE . ESTIMATED GFR I S NOT APPLICABLE FOR DIALYSIS PATIEN TS. [id number] 07:14:00 Test Item Value Reference Range Interpretation Comments PHOSPHORUS (BEAKER) (test code = 3.0 mg/dL 2.3-4.7 604) [id number] 07:14:00 Test Item Value Reference Range Interpretation Comments MAGNESIUM (BEAKER) (test code = 1.9 mg/dL 1.6-2.6 627) POCT-GLUCOSE [id number] 20:00:00 Test Item Value Reference Range Interpretation Comments POC-GLUCOSE METER 110 mg/dL 70-110 TESTED AT [place] [address] ([facility]) (test code = [facility] 1538) [address] POCT-GLUCOSE [id number] 17:28:00 Test Item Value Reference Range Interpretation Comments POC-GLUCOSE METER 94 mg/dL 70-110 TESTED AT [place] [address] ([facility]) (test code = [facility] [address] 1538) TACROLIMUS [id number] 14:16:00 Test Item Value Reference Range Interpretation Comments TACROLIMUS BLOOD ([facility]) (test 9.7 ng/mL 10.0-20.0 L code = 657) AM TROUGH LEVELLIPID [id number] 12:51:00 Test Item Value Reference Range Interpretation Comments TRIGLYCERIDES (AKER) (test code = 629 mg/dL 540) CHOLESTEROL ([facility]) (test code = 168 mg/dL 631) HDL CHOLESTEROL ([facility]) (test code 17 mg/dL = 976) Calculated LDL not valid if triglyceride >400 mg/dLTriglyceride Reference Range: Low Risk <150 Borderline 150-199 High Risk 200-499 Very High Risk >=500Cholesterol Reference Range: Low Risk <200 Borderline 200-239 High Risk >240HDL Cholesterol Reference Range: Low Risk >=60 High Risk <40LDL Cholesterol ReferenceRange: Optimal <100 Near Optimal 100-129 Borderline 130-159 High 160-189 Very High >=190HEPATIC FUNCTION [id number] 12:51:00 Test Item Value Reference Range Interpretation Comments TOTAL PROTEIN (BEAKER) (test code = 5.9 gm/dL 6.0-8.3 L 770) ALBUMIN (BEAKER) (test code = 1145) 3.4 g/dL 3.5-5.0 L BILIRUBIN TOTAL (BEAKER) (test code 0.3 mg/dL 0.2-1.2 = 377) BILIRUBIN DIRECT (BEAKER) (test 0.1 mg/dL 0.1-0.5 code = 706) ALKALINE PHOSPHATASE (BEAKER) (test 92 U/L 40-150 code = 346) AST (SGOT) (BEAKER) (test code = 29 U/L 5-34 353) ALT (SGPT) (BEAKER) (test code = 31 U/L 6-55 347) STOOL PATH [id number] 08:52:00 Test Item Value Reference Range Interpretation Comments PATHOGEN EXAM CHARGED (BEAKER) (test Done code = 1767) POCT-GLUCOSE [id number] 08:27:00 Test Item Value Reference Range Interpretation Comments POC-GLUCOSE METER 137 mg/dL 70-110 H TESTED AT [facility] 6720 (BEAKER) (test code = G[place] 1538) [address] CBC W/PLT COUNT & AUTO [id number] 08:03:00 Test Item Value Reference Range Interpretation Comments WHITE BLOOD CELL COUNT (BEAKER) 2.7 K/ L 4.0-10.0 L (test code = 775) RED BLOOD CELL COUNT (BEAKER) 3.67 M/ L 4.00-5.00 L (test code = 761) HEMOGLOBIN (BEAKER) (test code = 8.7 GM/DL 12.0-15.0 L 410) HEMATOCRIT (BEAKER) (test code = 29.5 % 36.0-45.0 L 411) MEAN CORPUSCULAR VOLUME (BEAKER) 80.4 fL 82.0-99.0 L (test code = 753) MEAN CORPUSCULAR HEMOGLOBIN 23.8 pg 27.0-33.0 L (BEAKER) (test code = 751) MEAN CORPUSCULAR HEMOGLOBIN CONC 29.6 GM/DL 32.0-36.0 L (BEAKER) (test code = 752) RED CELL DISTRIBUTION WIDTH 15.4 % 10.3-14.2 H (BEAKER) (test code = 412) PLATELET COUNT (BEAKER) (test 142 K/CU MM 150-430 L code = 756) MEAN PLATELET VOLUME (BEAKER) 7.9 fL 6.5-10.5 (test code = 754) NUCLEATED RED BLOOD CELLS 0 /100 WBC 0-0 (BEAKER) (test code = 413) NEUTROPHILS RELATIVE PERCENT 66 % (BEAKER) (test code = 429) LYMPHOCYTES RELATIVE PERCENT 17 % (BEAKER) (test code = 430) MONOCYTES RELATIVE PERCENT 14 % (BEAKER) (test code = 431) EOSINOPHILS RELATIVE PERCENT 2 % (BEAKER) (test code = 432) BASOPHILS RELATIVE PERCENT 2 % (BEAKER) (test code = 437) NEUTROPHILS ABSOLUTE COUNT 1.77 K/ L 1.80-8.00 L (BEAKER) (test code = 670) LYMPHOCYTES ABSOLUTE COUNT 0.45 K/ L 1.48-4.50 L (BEAKER) (test code = 414) MONOCYTES ABSOLUTE COUNT (BEAKER) 0.38 K/ L 0.00-1.30 (test code = 415) EOSINOPHILS ABSOLUTE COUNT 0.04 K/ L 0.00-0.50 (BEAKER) (test code = 416) BASOPHILS ABSOLUTE COUNT (BEAKER) 0.04 K/ L 0.00-0.20 (test code = 417) 0.00(MANUAL DIFFERENTIAL)2016-08-18 08:03:00 Test Item Value Reference Range Interpretation Comments TOTAL COUNTED (BEAKER) (test code = 1351) WBC MORPHOLOGY (BEAKER) (test code = Normal 487) PLT MORPHOLOGY (BEAKER) (test code = Normal 486) RBC MORPHOLOGY (BEAKER) (test code = Normal 762) BASIC METABOLIC [id number] 06:34:00 Test Item Value Reference Range Interpretation Comments SODIUM (BEAKER) 141 meq/L 136-145 (test code = 381) POTASSIUM (BEAKER) 4.0 meq/L 3.5-5.1 (test code = 379) CHLORIDE (BEAKER) 111 meq/L 98-107 H (test code = 382) CO2 (BEAKER) (test 17 meq/L 22-29 L code = 355) BLOOD UREA NITROGEN 58 mg/dL 7-21 H (BEAKER) (test code = 354) CREATININE (BEAKER) 3.78 mg/dL 0.57-1.25 H (test code = 358) GLUCOSE RANDOM 143 mg/dL 70-105 H (BEAKER) (test code = 652) CALCIUM (BEAKER) 7.9 mg/dL 8.4-10.2 L (test code = 697) EGFR (BEAKER) (test 13 mL/min/1.73 ESTIMA BRII GFR IS code = 1092) sq m NOT ACCURATE CREATININE CLEARANCE IN PREDICTING GLOMERULAR FILTRATION RATE . ESTIMATED GFR I S NOT APPLICABLE FOR DIALYSIS PATIEN TS. [id number] 06:33:00 Test Item Value Reference Range Interpretation Comments PHOSPHORUS (BEAKER) (test code = 3.7 mg/dL 2.3-4.7 604) [id number] 06:33:00 Test Item Value Reference Range Interpretation Comments MAGNESIUM (BEAKER) (test code = 2.0 mg/dL 1.6-2.6 627) FECAL [id number] 00:57:00 Test Item Value Reference Range Interpretation Comments FECAL LEUKOCYTES No fecal leukocytes No fecal leukocytes (BEAKER) (test code = seen seen 992) POCT-GLUCOSE [id number] 22:15:00 Test Item Value Reference Range Interpretation Comments POC-GLUCOSE METER 156 mg/dL 70-110 H TESTED AT [place] [address] ([facility]) (test code = [facility] 1538) [address] OCCULT BLOOD, [id number] 22:01:00 Test Item Value Reference Range Interpretation Comments FECAL OCCULT BLOOD (BEAKER) (test Positive Negative A code = 618) CREATININE, RANDOM [id number] 19:52:00 Test Item Value Reference Range Interpretation Comments CREATININE URINE (BEAKER) (test 98.1 mg/dL code = 375) Reference Range: No NormalsPROTEIN, RANDOM [id number] 19:52:00 Test Item Value Reference Range Interpretation Comments PROTEIN, URINE (BEAKER) (test code = 40 mg/dL 0-14 H 1569) POCT-GLUCOSE [id number] 18:18:00 Test Item Value Reference Range Interpretation Comments POC-GLUCOSE METER 184 mg/dL 70-110 H [facility] [place] [address] [facility] (test code = [facility] 1538) [address] CLOSTRIDIUM DIFFICILE TOXIN [id number] 16:25:00 Test Item Value Reference Range Interpretation Comments CLOSTRIDIUM DIFFICILE TOXIN, PCR Not Detected Not Detected (BEAKER) (test code = 1525) This qualitative real-time polymerase chain reaction assay detects the tcdB gene, encoded on the C.difficile pathogenicity locus (PaLoc). The product of tcdB, toxin B, is a cytotoxin essential for causing C.difficile-associated disease (CDAD) and is found in virtually all toxigenic C.difficile.This assay is performed for patients suspected of having either community-acquired or nosocomial CDAD. Accordingly, only symptomatic patients should be tested and formed stools will be rejected unless ileus is present (i.e., specified when ordering). Patients may be colonized with toxigenic C.difficile strains not causing active disease; therefore, clinical correlation is needed when deciding how to manage patients with a positive test result.The assay has not been validated as a test of cure as amplifiable nucleic acid may persist after effective treatment; therefore, follow-up testing of a positive result is not recommended.LACTATE DEHYDROGENASE (LDH)2016-08-17 15:24:00 Test Item Value Reference Range Interpretation Comments LACTATE DEHYDROGENASE (BEAKER) (test 207 U/L 125-220 code = 635) Please add to labs already drawn this morning. Call me if elevated.CBC W/PLT COUNT & AUTO [id number] 14:51:00 Test Item Value Reference Range Interpretation Comments WHITE BLOOD CELL COUNT (BEAKER) 2.9 K/ L 4.0-10.0 L (test code = 775) RED BLOOD CELL COUNT (BEAKER) 3.57 M/ L 4.00-5.00 L (test code = 761) HEMOGLOBIN (BEAKER) (test code = 9.2 GM/DL 12.0-15.0 L 410) HEMATOCRIT (BEAKER) (test code = 29.1 % 36.0-45.0 L 411) MEAN CORPUSCULAR VOLUME (BEAKER) 81.5 fL 82.0-99.0 L (test code = 753) MEAN CORPUSCULAR HEMOGLOBIN 25.8 pg 27.0-33.0 L (BEAKER) (test code = 751) MEAN CORPUSCULAR HEMOGLOBIN CONC 31.6 GM/DL 32.0-36.0 L (BEAKER) (test code = 752) RED CELL DISTRIBUTION WIDTH 15.5 % 10.3-14.2 H (BEAKER) (test code = 412) PLATELET COUNT (BEAKER) (test 141 K/CU MM 150-430 L code = 756) MEAN PLATELET VOLUME (BEAKER) 8.1 fL 6.5-10.5 (test code = 754) NUCLEATED RED BLOOD CELLS 0 /100 WBC 0-0 (BEAKER) (test code = 413) NEUTROPHILS RELATIVE PERCENT 66 % (BEAKER) (test code = 429) LYMPHOCYTES RELATIVE PERCENT 20 % (BEAKER) (test code = 430) MONOCYTES RELATIVE PERCENT 13 % (BEAKER) (test code = 431) EOSINOPHILS RELATIVE PERCENT 1 % (BEAKER) (test code = 432) BASOPHILS RELATIVE PERCENT 0 % (BEAKER) (test code = 437) NEUTROPHILS ABSOLUTE COUNT 1.88 K/ L 1.80-8.00 (BEAKER) (test code = 670) LYMPHOCYTES ABSOLUTE COUNT 0.57 K/ L 1.48-4.50 L (BEAKER) (test code = 414) MONOCYTES ABSOLUTE COUNT (BEAKER) 0.38 K/ L 0.00-1.30 (test code = 415) EOSINOPHILS ABSOLUTE COUNT 0.04 K/ L 0.00-0.50 (BEAKER) (test code = 416) BASOPHILS ABSOLUTE COUNT (BEAKER) 0.00 K/ L 0.00-0.20 (test code = 417) 0.00(MANUAL DIFFERENTIAL)2016-08-17 14:51:00 Test Item Value Reference Range Interpretation Comments TOTAL COUNTED (BEAKER) (test code = 1351) WBC MORPHOLOGY (BEAKER) (test code = Normal 487) PLT MORPHOLOGY (BEAKER) (test code = Normal 486) SCHISTOCYTES (BEAKER) (test code = 1+ few 765) ACANTHOCYTES (BEAKER) (test code = 1+ few 471) ANISOCYTOSIS (BEAKER) (test code = 1+ few 961) SANDRA CELLS (BEAKER) (test code = 474) 1+ few HYPOCHROMIA (BEAKER) (test code = 963) 1+ few MACROCYTES (BEAKER) (test code = 964) 1+ few OVALOCYTES (BEAKER) (test code = 477) 1+ few POIKILOCYTES (BEAKER) (test code = 1+ few 966) POCT-GLUCOSE [id number] 10:18:00 Test Item Value Reference Range Interpretation Comments POC-GLUCOSE METER 152 mg/dL 70-110 H TESTED AT [facility] 6720 (BEAKER) (test code = [place] 1538) [address] BASIC METABOLIC [id number] 09:01:00 Test Item Value Reference Range Interpretation Comments SODIUM (BEAKER) 138 meq/L 136-145 (test code = 381) POTASSIUM (BEAKER) 4.5 meq/L 3.5-5.1 (test code = 379) CHLORIDE (BEAKER) 113 meq/L 98-107 H (test code = 382) CO2 (BEAKER) (test 10 meq/L 22-29 LL code = 355) BLOOD UREA NITROGEN 66 mg/dL 7-21 H (BEAKER) (test code = 354) CREATININE (BEAKER) 4.52 mg/dL 0.57-1.25 H (test code = 358) GLUCOSE RANDOM 113 mg/dL 70-105 H (BEAKER) (test code = 652) CALCIUM (BEAKER) 8.2 mg/dL 8.4-10.2 L (test code = 697) EGFR (BEAKER) (test 10 mL/min/1.73 ESTIMA BRII GFR IS code = 1092) sq m NOT ACCURATE CREATININE CLEARANCE IN PREDICTING GLOMERULAR FILTRATION RATE . ESTIMATED GFR I S NOT APPLICABLE FOR DIALYSIS PATIEN TS. [id number] 08:10:00 Test Item Value Reference Range Interpretation Comments PHOSPHORUS (BEAKER) (test code = 4.4 mg/dL 2.3-4.7 604) [id number] 08:10:00 Test Item Value Reference Range Interpretation Comments MAGNESIUM (BEAKER) (test code = 2.0 mg/dL 1.6-2.6 627) URINALYSIS W/ [id number] 18:11:00 Test Item Value Reference Range Interpretation Comments COLOR (BEAKER) (test code Yellow = 470) CLARITY (BEAKER) (test Hazy code = 469) SPECIFIC GRAVITY UA 1.012 1.001-1.035 (BEAKER) (test code = 468) PH UA (BEAKER) (test code 5.0 5.0-8.0 = 467) PROTEIN UA (BEAKER) (test 50 mg/dL Negative A code = 464) GLUCOSE UA (BEAKER) (test Negative Negative code = 365) KETONES UA (BEAKER) (test Negative Negative code = 371) BILIRUBIN UA (BEAKER) Negative Negative (test code = 462) BLOOD UA (BEAKER) (test Negative Negative code = 461) NITRITE UA (BEAKER) (test Negative Negative code = 465) LEUKOCYTE ESTERASE UA Trace Negative A (BEAKER) (test code = 466) UROBILINOGEN UA (BEAKER) 0.2 mg/dL 0.2-1.0 (test code = 463) RBC UA (BEAKER) (test code 0 /HPF = 519) WBC UA (BEAKER) (test code 5 /HPF = 520) BACTERIA (BEAKER) (test Many code = 517) MUCUS (BEAKER) (test code Rare = 1574) SQUAMOUS EPITHELIAL 11 /HPF (BEAKER) (test code = 516) SOURCE(BEAKER) (test code Urine, Clean Catch = 2795) [id number] 17:43:00 Test Item Value Reference Range Interpretation Comments LIPASE (BEAKER) (test code = 749) 25 U/L 8-78 [id number] 17:43:00 Test Item Value Reference Range Interpretation Comments AMYLASE (BEAKER) (test code = 349) 65 U/L 25-125 HEPATIC FUNCTION [id number] 17:43:00 Test Item Value Reference Range Interpretation Comments TOTAL PROTEIN (BEAKER) (test code = 7.1 gm/dL 6.0-8.3 770) ALBUMIN (BEAKER) (test code = 1145) 4.2 g/dL 3.5-5.0 BILIRUBIN TOTAL (BEAKER) (test code 0.4 mg/dL 0.2-1.2 = 377) BILIRUBIN DIRECT (BEAKER) (test 0.1 mg/dL 0.1-0.5 code = 706) ALKALINE PHOSPHATASE (BEAKER) (test 117 U/L 40-150 code = 346) AST (SGOT) (BEAKER) (test code = 30 U/L 5-34 353) ALT (SGPT) (BEAKER) (test code = 41 U/L 6-55 347) BASIC METABOLIC [id number] 17:43:00 Test Item Value Reference Range Interpretation Comments SODIUM (BEAKER) 137 meq/L 136-145 (test code = 381) POTASSIUM (BEAKER) 4.8 meq/L 3.5-5.1 (test code = 379) CHLORIDE (BEAKER) 110 meq/L 98-107 H (test code = 382) CO2 (BEAKER) (test 12 meq/L 22-29 L code = 355) BLOOD UREA NITROGEN 65 mg/dL 7-21 H (BEAKER) (test code = 354) CREATININE (BEAKER) 4.19 mg/dL 0.57-1.25 H (test code = 358) GLUCOSE RANDOM 164 mg/dL 70-105 H (BEAKER) (test code = 652) CALCIUM (BEAKER) 9.0 mg/dL 8.4-10.2 (test code = 697) EGFR (BEAKER) (test 11 mL/min/1.73 ESTIMA BRII GFR IS code = 1092) sq m NOT ACCURATE CREATININE CLEARANCE IN PREDICTING GLOMERULAR FILTRATION RATE . ESTIMATED GFR I S NOT APPLICABLE FOR DIALYSIS PATIEN TS. CBC W/PLT COUNT & AUTO [id number] 17:18:00 Test Item Value Reference Range Interpretation Comments WHITE BLOOD CELL COUNT (BEAKER) 4.4 K/ L 4.0-10.0 (test code = 775) RED BLOOD CELL COUNT (BEAKER) 4.07 M/ L 4.00-5.00 (test code = 761) HEMOGLOBIN (BEAKER) (test code = 10.8 GM/DL 12.0-15.0 L 410) HEMATOCRIT (BEAKER) (test code = 33.1 % 36.0-45.0 L 411) MEAN CORPUSCULAR VOLUME (BEAKER) 81.2 fL 82.0-99.0 L (test code = 753) MEAN CORPUSCULAR HEMOGLOBIN 26.5 pg 27.0-33.0 L (BEAKER) (test code = 751) MEAN CORPUSCULAR HEMOGLOBIN CONC 32.6 GM/DL 32.0-36.0 (BEAKER) (test code = 752) RED CELL DISTRIBUTION WIDTH 15.4 % 10.3-14.2 H (BEAKER) (test code = 412) PLATELET COUNT (BEAKER) (test 153 K/CU MM 150-430 code = 756) MEAN PLATELET VOLUME (BEAKER) 8.2 fL 6.5-10.5 (test code = 754) NUCLEATED RED BLOOD CELLS 0 /100 WBC 0-0 (BEAKER) (test code = 413) NEUTROPHILS RELATIVE PERCENT 79 % (BEAKER) (test code = 429) LYMPHOCYTES RELATIVE PERCENT 13 % (BEAKER) (test code = 430) MONOCYTES RELATIVE PERCENT 7 % (BEAKER) (test code = 431) EOSINOPHILS RELATIVE PERCENT 1 % (BEAKER) (test code = 432) BASOPHILS RELATIVE PERCENT 0 % (BEAKER) (test code = 437) NEUTROPHILS ABSOLUTE COUNT 3.47 K/ L 1.80-8.00 (BEAKER) (test code = 670) LYMPHOCYTES ABSOLUTE COUNT 0.57 K/ L 1.48-4.50 L (BEAKER) (test code = 414) MONOCYTES ABSOLUTE COUNT (BEAKER) 0.32 K/ L 0.00-1.30 (test code = 415) EOSINOPHILS ABSOLUTE COUNT 0.04 K/ L 0.00-0.50 (BEAKER) (test code = 416) BASOPHILS ABSOLUTE COUNT (BEAKER) 0.02 K/ L 0.00-0.20 (test code = 417) 0.00
[2020-02-01 18:21] LABS: Absolute Lymphocytes (CBC) 0.6 K/uL (0.7-4.9); Basophils % 0.4 % (0-1.3); Hematocrit 28.1 % (36.0-45.0); Lymphocytes % 2.5 % (15.3-44.8); MPV 8.2 fL (7.6-11.3); RBC Red Blood Cell Count 2.97 M/uL (3.86-4.86)
[2020-02-01 18:25] LABS: Protime INR 1.17
[2020-02-01] MEDS ORDERED: MORPHINE 4 MG/ML SYR ONE (18:38)
[2020-02-01] MEDS ORDERED: ONDANSETRON 4 MG/2 ML VIAL ONE (18:39)
[2020-02-01 18:42] LABS: ALT/SGPT 61 U/L (12-78); AST/SGOT 42 U/L (15-37); Albumin 4.1 g/dL (3.4-5.0); Alkaline Phosphatase 116 U/L (45-117); BUN Blood Urea Nitrogen 26 mg/dL (7-18); Bicarbonate 18 mmol/L (21-32); Bilirubin Direct 0.7 mg/dL (0-0.2); Bilirubin Total 1.7 mg/dL (0.2-1.0); Creatine Phosphokinase 30 U/L (26-192); Glucose Level 366 mg/dL (74-106); Lipase 36 U/L (73-393); Potassium 4.7 mmol/L (3.5-5.1); Protein, Total 8.5 g/dL (6.4-8.2); Sodium Level 133 mmol/L (136-145); Troponin (Emerg Dept Use Only) < 0.02 ng/mL (0.0-0.045)
--- NOTE | 2020-02-01 18:59 | RAD REPORT ---
EXAM DESCRIPTION: RAD - Chest Single View - 02/01/2020 6:44 pm CLINICAL HISTORY: FEVER Chest pain. COMPARISON: Chest Single View dated 08/12/2016; CHEST SINGLE VIEW dated 08/26/2012; CHEST PA AND LAT 2 VIEW dated 03/23/2012; CHEST PA AND LAT 2 VIEW dated 04/11/2008 FINDINGS: Portable technique limits examination quality. The lungs are grossly clear. The heart is mildly prominent in size. No displaced fractures. IMPRESSION: No acute intrathoracic process suspected.
[2020-02-01] MEDS ORDERED: CEFEPIME/SWI 2gm 2 GM/20 ML SYR IVP ONE (19:00)
[2020-02-01 19:02] LABS: Blood Morphology Comment NOT SEEN (NOT SEEN); Platelet Estimate ADEQ
[2020-02-01 19:11] LABS: Urine Blood NEGATIVE (NEG); Urine Glucose 1+ (NEG); Urine Protein 1+ (NEG)
[2020-02-01 19:21] LABS: Urine Amorphous Sediment 2+ /HPF (NONE SEEN); Urine Bacteria 20-50 /HPF (<20); Urine Culture Reflex Order NOT NEEDED; Urine Mucus 1+ /HPF (NONE SEEN); Urine RBC <5 /HPF (NONE SEEN); Urine Yeast FEW (NONE SEEN)
--- NOTE | 2020-02-01 19:24 | RAD REPORT ---
EXAM DESCRIPTION: US - Extrem Venous W Compress Lam - 02/01/2020 7:16 pm CLINICAL HISTORY: PAIN Bilateral leg edema and swelling. COMPARISON: No comparisons TECHNIQUE: Real-time sonographic interrogation of the left and right lower extremity deep venous sys tems was performed. FINDINGS: Normal compressibility, flow augmentation, phasic flow and spontaneous flow is identified in both the left and right lower extremity deep venous systems. IMPRESSION: No sonographic evidence of left or right lower extremity deep venous thrombosis.
[2020-02-01] MEDS ORDERED: ACETAMINOPHEN 500 MG TAB ONE (19:39)
--- NOTE | 2020-02-01 19:47 | ER ---
Nurse's Notes [facility] Name: Iliana Chilel Age: 49 yrs Sex: Female : 1970 Arrival Date: 02/01/2020 Time: 16:49 Bed 5 Private MD: Galdino Masters R Diagnosis: Other sepsis;Unspecified kidney failure Presentation: 01/31 17:16 Chief complaint: Patient states: had kidney transplant 1 week ago, began having em generalized fatigue N/V low grade fever. Coronavirus screen: Client denies travel out of the [place] in the last 14 days. Ebola Screen: Patient negative for fever greater than or equal to 101.5 degrees Fahrenheit, and additional compatible Ebola Virus Disease symptoms Patient denies exposure to infectious person. Patient denies travel to an Ebola-affected area in the 21 days before illness onset. No symptoms or risks identified at this time. Initial Sepsis Screen: Does the patient meet any 2 criteria? No. Patient's initial sepsis screen is negative. Does the patient have a suspected source of infection? No. Patient's initial sepsis screen is negative. Risk Assessment: Do you want to hurt yourself or someone else? Patient reports no desire to harm self or others. Onset of symptoms was February 01, 2020. 17:16 Method Of Arrival: Wheelchair em 17:16 Acuity: BOO 3 em Historical: - Allergies: 17:18 No Known Allergies; em - PMHx: 17:18 Diabetes - IDDM; em - Immunization history:: Adult Immunizations up to date. - Social history:: Smoking status: Patient denies any tobacco usage or history of. Screenin:05 Abuse screen: Denies threats or abuse. Denies injuries from another. Nutritional sv screening: No deficits noted. Tuberculosis screening: No symptoms or risk factors identified. Fall Risk None identified. Assessment: 18:05 General: Appears in no apparent distress. uncomfortable, well developed, Behavior is sv cooperative, appropriate for age, restless. Pain: Complains of pain in left leg Pain currently is 9 out of 10 on a pain scale. Is continuous. Neuro: Level of Consciousness is awake, alert, obeys commands, Oriented to person, place, time, situation, Moves all extremities. Respiratory: Airway is patent Respiratory effort is even, unlabored, Respiratory pattern is regular, symmetrical. GI: Abdomen is round Reports nausea. Derm: Skin is normal. 19:20 Reassessment: Patient is alert, oriented x 3, equal unlabored respirations, skin bb warm/dry/pink. pt states her legs are hurting and she feels bad all over, IV site intact, no erythema or edema noted. Patient states symptoms have not improved. Cardiovascular: Heart tones present Capillary refill < 3 seconds Patient's skin is warm and dry. Musculoskeletal: Circulation, motion, and sensation intact. 20:00 Reassessment: Patient is alert, oriented x 3, equal unlabored respirations, skin bb warm/dry/pink. pt instructed on transfer process verbalized understanding of and agrees to plan of care. 20:58 Reassessment: [facility] at bedside for transport of pt to [facility], pt is A\T\O x bb 4, resp unlabored, IV site intact, no erythema or edema noted, family at bedside. Vital Signs: 17:16 BP 116 / 70; Pulse 79; Resp 18; Temp 100.9(O); Pulse Ox 100% on R/A; Weight 90.72 kg; em Height 5 ft. 7 in. (170.18 cm); Pain 9/10; 18:28 BP 142 / 81; Pulse 77; Resp 20; Pulse Ox 96% ; sv 18:52 BP 139 / 76; Pulse 75; Resp 20; Pulse Ox 95% on R/A; sv 20:30 BP 117 / 93; Pulse 74; Resp 22 S; Temp 98.8; Pulse Ox 97% on R/A; bb 17:16 Body Mass Index 31.32 (90.72 kg, 170.18 cm) em ED Course: 16:49 Patient arrived in ED. ag5 16:49 Galdino Masters MD is Private Physician. ag5 17:18 Triage completed. em 17:18 Arm band placed on. em 17:28 Malcolm Wood PA is PHCP. cp 17:28 Alberto Treadwell MD is Attending Physician. cp 17:47 Melanie Eagle, MELANIE is Primary Nurse. sv 18:05 Patient has correct armband on for positive identification. Bed in low position. Call sv light in reach. Side rails up X2. Adult w/ patient. Pulse ox on. NIBP on. Door closed. Head of bed elevated. 18:15 First set of blood cultures drawn by me. Inserted saline lock: 20 gauge in right sv antecubital area, using aseptic technique. Blood collected. Flushed right antecubital with 5 ml normal saline. 18:25 Second set of blood cultures drawn by me. sv 18:35 Straight cath inserted, using sterile technique, 16 Fr. Specimen obtained. Returned sv luann urine. Patient tolerated well. 18:44 Chest Single View XRAY In Process Unspecified. EDMS 19:05 Report given to Brittani NAVARRO and Dany NAVARRO. sv 19:12 Primary Nurse role handed off by Melanie Eagle RN sv 19:16 US Extremity Venous W Compression Lam In Process Unspecified. EDMS 19:23 Brittani Bush, MELANIE is Primary Nurse. bb 19:30 initiated a transfer with Meghana Ruvalcaba from the [facility] [place]. mw2 19:[address] Langley the Hospitalist feed preparation operator from [facility] with Malcolm [facility]. 19:45 Dr. Langley the hospitalist feed preparation operator for [facility] accepted the patient in transfer. mw2 19:58 administrative approval given by Meghana Ruvalcaba RN/ patient has been accepted to [address] bed 74/ Dr. Langley has accepted the patient in transfer/ report to be called at [phone]. 21:02 No provider procedures requiring assistance completed. Patient transferred, IV remains bb in place. Administered Medications: 18:42 Drug: Zofran (Ondansetron) 4 mg Route: IVP; Site: right antecubital; sv 20:09 Follow up: Response: No adverse reaction bb 18:44 Drug: morphine 4 mg {Note: rass2.} Route: IVP; Site: right antecubital; sv 20:09 Follow up: Response: No change in condition bb 18:46 Drug: Cefepime 2 grams {Note: given IVP per pharmacy.} Route: IVPB; Rate: 200 ml/hr; sv Infused Over: 30 mins; Site: right antecubital; 19:32 Drug: Tylenol 1000 mg Route: PO; bb 20:09 Follow up: Response: Temperature is decreased bb Outcome: 19:46 ER care complete, transfer ordered by . cp 20:48 Transferred by ground EMS Note: report given to Barbaar RN, reports accepting physician sg to be 21:03 Transferred by ground EMS to [facility], [facility], Transfer form completed. bb X-rays sent w/ patient. 21:03 Condition: stable 21:03 Patient left the ED. bb Signatures: Dispatcher [employer] Melanie Trujillo RN RN sv Gay, Steven, RN RN sg Munoz, Edgar, RN RN em Ballard, Brenda, RN RN bb Page, Corey, PA PA cp [place], MyKena mw2 Favian Morales 5
--- NOTE | 2020-02-01 19:47 | EDPHYS ---
Physician Documentation [facility] Name: Iliana Chilel Age: 49 yrs Sex: Female : 1970 Arrival Date: 02/01/2020 Time: 16:49 Bed 5 Private MD: Galdino Masters R ED Physician Alberto Treadwell HPI: 01/31 17:45 This 49 yrs old Female presents to ER via Wheelchair with complaints of cp Nausea, Hand Pain, Leg Pain. 17:45 The patient presents to the emergency department with nausea, that is mild. Onset: The cp symptoms/episode began/occurred today. Associated signs and symptoms: Pertinent positives: anorexia, fever, hand and leg pain, Pertinent negatives: abdominal pain, constipation, diarrhea, vomiting. Severity of symptoms: in the emergency department the symptoms are unchanged despite home interventions. Patient reports having kidney transplant surgery 1 week ago performed at [facility]. Historical: - Allergies: 17:18 No Known Allergies; em - PMHx: 17:18 Diabetes - IDDM; em - Immunization history:: Adult Immunizations up to date. - Social history:: Smoking status: Patient denies any tobacco usage or history of. ROS: 17:50 Constitutional: Positive for body aches, fever, Negative for poor PO intake. cp 17:50 Eyes: Negative for injury, pain, redness, and discharge. cp 17:50 ENT: Negative for ear pain, sore throat, difficulty swallowing, difficulty handling secretions. 17:50 Cardiovascular: Negative for chest pain, edema, palpitations. 17:50 Respiratory: Negative for cough, shortness of breath, wheezing. 17:50 Abdomen/GI: Positive for nausea, Negative for abdominal pain, vomiting, diarrhea, constipation, black/tarry stool, rectal bleeding. 17:50 : Negative for urinary symptoms, flank pain. 17:50 Skin: Negative for rash. 17:50 Neuro: Negative for altered mental status, headache, numbness, weakness. 17:50 All other systems are negative. Exam: 17:55 Constitutional: The patient appears in no acute distress, alert, awake, cp non-diaphoretic, non-toxic, well developed, well nourished, febrile. 17:55 Head/Face: Normocephalic, atraumatic. cp 17:55 Eyes: Periorbital structures: appear normal, Pupils: equal, round, and reactive to light and accomodation, Extraocular movements: intact throughout, Conjunctiva: normal, no exudate, no injection, Sclera: no appreciated abnormality, Lids and lashes: appear normal, bilaterally. 17:55 ENT: External ear(s): are unremarkable, Nose: is normal, Posterior pharynx: Airway: no evidence of obstruction, patent. 17:55 Neck: ROM/movement: is normal, is supple, no meningismus. 17:55 Chest/axilla: Inspection: normal, Palpation: is normal, no crepitus, no tenderness. 17:55 Cardiovascular: Rate: normal, Rhythm: regular, Edema: is not appreciated, JVD: is not appreciated. 17:55 Respiratory: the patient does not display signs of respiratory distress, Respirations: normal, no use of accessory muscles, no retractions, labored breathing, is not present, Breath sounds: are clear throughout, no decreased breath sounds, no stridor, no wheezing. 17:55 Abdomen/GI: Inspection: surgical scars left side of abdomen appear to be healing well without erythema and/or dehiscence, fran in place, Bowel sounds: active, all quadrants, Palpation: soft, in all quadrants, mild abdominal tenderness, in the left upper quadrant and left lower quadrant, rebound tenderness, is not appreciated, voluntary guarding, is not appreciated, involuntary guarding, is not appreciated. 17:55 Back: CVA tenderness, is absent. 17:55 Skin: cellulitis, is not appreciated, no rash present. 17:55 Neuro: Orientation: to person, place \T\ time. Mentation: is normal, Motor: moves all fours, general weakness without focal deficits, Sensation: no obvious gross deficits. 18:20 ECG was reviewed by the Attending Physician. cp Vital Signs: 17:16 BP 116 / 70; Pulse 79; Resp 18; Temp 100.9(O); Pulse Ox 100% on R/A; Weight 90.72 kg; em Height 5 ft. 7 in. (170.18 cm); Pain 9/10; 18:28 BP 142 / 81; Pulse 77; Resp 20; Pulse Ox 96% ; sv 18:52 BP 139 / 76; Pulse 75; Resp 20; Pulse Ox 95% on R/A; sv 20:30 BP 117 / 93; Pulse 74; Resp 22 S; Temp 98.8; Pulse Ox 97% on R/A; bb 17:16 Body Mass Index 31.32 (90.72 kg, 170.18 cm) em MDM: 17:36 Patient medically screened. 19:44 Physician consultation: was contacted at 19:45, regarding regarding transfer, to [facility]. patient's condition, DR Vicente will accept patient. 19:45 Data reviewed: vital signs, nurses notes, lab test result(s), EKG, radiologic studies, cp plain films, I have discussed the patient's presentation/case with the attending Emergency Department Physician; and as a result, I will transfer patient. 19:45 Differential diagnosis: sepsis, UTI, transplant rejection. Counseling: I had a detailed discussion with the patient and/or guardian regarding: the historical points, exam findings, and any diagnostic results supporting the discharge/admit diagnosis, lab results, radiology results, the need to transfer to another facility, continuity of care. Response to treatment: the patient's symptoms have markedly improved after treatment. 01/31 17:42 Order name: Urine Culture 01/31 17:42 Order name: Basic Metabolic Panel; Complete Time: 19:07 01/31 19:07 Interpretation: Normal except: NA 133; CO2 18; GLUC 366; BUN 26; CRE 2.09; GFR 25. 01/31 17:42 Order name: Blood Culture Adult (2) 01/31 17:42 Order name: CBC with Diff; Complete Time: 19:07 01/31 19:07 Interpretation: Normal except: WBC 24.2; RBC 2.97; HGB 9.5; HCT 28.1; MCV 94.6; MCH cp 32.0; RDW 15.6; DANIELA% 94.5; LYM% 2.5; MN% 2.5; NEUT A 22.9; LYMA 0.6. 01/31 17:42 Order name: CPK; Complete Time: 19:07 01/31 17:42 Order name: Lactate; Complete Time: 19:07 01/31 17:42 Order name: LFT's; Complete Time: 19:07 01/31 19:07 Interpretation: Normal except: AST 42; BILIT 1.7; BILID 0.7; TP 8.5; GLOB 4.4; A/G 0.9. cp / 17:42 Order name: Lipase; Complete Time: 19:07 cp 01/31 17:42 Order name: Procalcitonin; Complete Time: 19:42 cp 01/31 17:42 Order name: Protime (+inr); Complete Time: 19:07 cp 01/31 17:42 Order name: Ptt, Activated; Complete Time: 19:07 cp 01/31 17:42 Order name: Troponin (emerg Dept Use Only); Complete Time: 19:07 cp 01/31 17:42 Order name: Urine Microscopic Only; Complete Time: 19:42 cp 01/31 19:44 Interpretation: Normal except: UWBC 5-10; UBACT 20-50; SQEPI 10-20; AMORPH 2+. cp 01/31 18:58 Order name: Urine Dipstick--Ancillary (enter results); Complete Time: 19:42 bd 01/31 17:42 Order name: US Extremity Venous W Compression Lam; Complete Time: 19:42 cp 01/31 17:42 Order name: Cath; Complete Time: 18:48 cp 01/31 17:42 Order name: Chest Single View XRAY; Complete Time: 19:07 cp 01/31 17:42 Order name: Cardiac monitoring; Complete Time: 18:48 cp 01/31 17:42 Order name: EKG - Nurse/Tech; Complete Time: 18:48 cp 01/31 17:42 Order name: IV Saline Lock - Large Bore; Complete Time: 18:48 cp 01/31 17:42 Order name: Labs collected and sent; Complete Time: 18:48 cp 01/31 17:42 Order name: O2 Per Protocol; Complete Time: 18:48 cp 01/31 17:42 Order name: O2 Sat Monitoring; Complete Time: 18:48 cp 01/31 18:58 Order name: Urine --Ancillary (enter results); Complete Time: 19:42 bd 01/31 19:02 Order name: Manual Differential; Complete Time: 19:07 EDMS 01/31 17:42 Order name: Urine Dipstick-Ancillary (obtain specimen); Complete Time: 18:53 cp EC:20 Rate is 72 beats/min. Rhythm is regular. CT interval is normal. QRS interval is normal. cp QT interval is normal. T waves are Inverted in leads I, II, aVF. Interpreted by me. Reviewed by me. Administered Medications: 18:42 Drug: Zofran (Ondansetron) 4 mg Route: IVP; Site: right antecubital; sv 20:09 Follow up: Response: No adverse reaction bb 18:44 Drug: morphine 4 mg {Note: rass2.} Route: IVP; Site: right antecubital; sv 20:09 Follow up: Response: No change in condition bb 18:46 Drug: Cefepime 2 grams {Note: given IVP per pharmacy.} Route: IVPB; Rate: 200 ml/hr; sv Infused Over: 30 mins; Site: right antecubital; 19:32 Drug: Tylenol 1000 mg Route: PO; bb 20:09 Follow up: Response: Temperature is decreased bb Disposition: 02/01/20 19:46 Transfer ordered to [facility]. Diagnosis are Other sepsis, Unspecified kidney failure. - Reason for transfer: Higher level of care. - Accepting physician is DR Vicente. - Condition is Stable. - Problem is new. - Symptoms have improved. Addendum: 02/03/2020 07:17 Co-signature as Attending Physician, Alberto Treadwell MD. r n Signatures: Dispatcher [employer] Melanie Trujillo RN RN Kelby Ibarra RN RN em Ballard, Brenda, RN RN bb Nieto, Roman, MD MD rn Page, Corey, PA PA cp Corrections: (The following items were deleted from the chart) 01/31 18:53 17:42 Accucheck ordered. cp sv 21:03 19:46 02/01/2020 19:46 Transfer ordered to [facility]. bb Diagnosis is Other sepsis; Unspecified kidney failure. Reason for transfer: Higher level of care. Accepting physician is DR Vicente. Condition is Stable. Problem is new. Symptoms have improved. cp
[2020-02-01 21:16] VITALS: BP 117/93; TEMP 98.8; O2SAT 97
--- NOTE | 2020-02-02 12:04 | EKG ---
Test Date: 2020-02-01 Test Time: 18:11:52 Pulper Tender: AWAIS MEASUREMENT RESULTS: Intervals: Rate: 72 MA: 176 QRSD: 86 QT: 394 QTc: 431 [place]: P: -6 MA: 176 QRS: 80 T: 215 INTERPRETIVE STATEMENTS: Normal sinus rhythm ST & T wave abnormality, consider inferolateral ischemia Abnormal ECG Compared to ECG 08/12/2016 08:06:01 ST (T wave) deviation now present Possible ischemia now present Electronically Signed On 02-02-20 12:01:32 CDT by Lukasz Weir
== END 2020-02-01 21:03 | disposition short-term general hospital (02) ==
LOC: ER 16:47
DX: A41.89 Other specified sepsis (principal); N19 Unspecified kidney failure; Z94.0 Kidney transplant status
CPT/HCPCS: 93005; 87040 ×2; 87088; 85025; 87086; 80048; 36415; 82550; 81025; 85610; 80076; 83605; 85730; 84484; 83690; 84145; 71045; 93970; 51702; 96375; 96374; 99285; J0692; J2405; 81003; 81015

== ENCOUNTER 2020-09-19 16:54 | Emergency (ER) | payer OTHER ==
--- OUTSIDE RECORDS SUMMARY | 2020-09-19 17:12 | XMS REPORT | Continuity of Care Document ---
:1970 Author Organization [facility] t Address [address] [place] [address] Care Team Providers Name Role Phone Rodolfo LANGLEY Attending Clinician Unavailable WILLIAMS Attending Clinician Unavailable BRIGHT Attending Clinician Unavailable CARLA SOUTH Attending Clinician Unavailable Kahlil MA Attending Clinician Segundo REID Attending Clinician Fahad GARLAND Attending Clinician Unavailable Wallace LEE Attending Clinician Unavailable JARON CALDERON Attending Clinician Unavailable ROSA MARIA SANDERS Attending Clinician Unavailable TIFFANIE NAM Attending Clinician Unavailable BABAR Attending Clinician Unavailable MEGHANN WELSH Attending Clinician Unavailable KIRSTEN GOMEZ Attending Clinician Unavailable MARISABEL Attending Clinician Unavailable Cathryn ALMARAZ Attending Clinician Unavailable WILLIAMS Admitting Clinician Unavailable BRIGHT Admitting Clinician Unavailable EULOGIOS SGeovani Admitting Clinician Unavailable GAVINO BOOGIE Admitting Clinician Unavailable MEGHANN CRAWLEY Admitting Clinician Unavailable KINZA BUSTAMANTE Admitting Clinician Unavailable PIERRE BAILEY Admitting Clinician Unavailable ROBBIE FLORES Admitting Clinician Unavailable Wallace LEE Admitting Clinician Unavailable ROSEMARIE PALOMINO Admitting Clinician Unavailable BABAR Admitting Clinician Unavailable KIRSTEN GOMEZ Admitting Clinician Unavailable MARISABEL Admitting Clinician Unavailable Problems Condition Condition Condition Status Onset Resolution Last Treating Co mments Source Name Details Category Date Date Treatment Clinician Date 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 Diabetes 3-24 Family mellitus Mellitus 00:00: Practi c 00 e Depressive Depressive Problem Active [facility] disorder Disorder 1-17 Family 00:00: Practic 00 e Neuropathy Neuropathy Problem Active [facility] 1-17 Family 00:00: Practic 00 e Hyperlipid Hyperlipid Problem Active [facility] kaia emia 6-28 Family 00:00: Practic e Neuropathy Neuropathy Problem Active [facility] due to Due to 6-28 Family diabetes Diabetes 00:00: Practi c mellitus Mellitus 00 e Essential Essential Problem Active [facility]ys [facility] hypertensi Hypertensi -28 Fa diandra on on 00:00: Practic 00 e 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, Syndrome, 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 Focal and 00:00: Prac tic segmental Segmental 00 e glomerular Glomerular lesions Lesions Menopausal Menopausal Problem Active [facility] and and 11-06 Family postmenopa Postmenopa 00:00: Pr actic usal usal 00 e disorders Disorders Transplant Transplant Problem Active [facility] ed kidney ed Kidney 11-06 Fami ly present Present 00:00: Practic 00 e Hypertensi Hypertensi Problem Active [facility] ve ve -28 Family disorder Disorder 00:00: Practi c 00 e Disorder Disorder Problem Active [facility] associated Associated - Fa diandra with with 00:00: Practic menstruati Menstruati 00 e on AND/OR on AND/OR menopause Menopause General General Problem Active [facility] finding of Finding of 28 diandra observatio Observatio 00:00: Pr actic n of n of 00 e patient Patient Neuropathy Neuropathy Problem Active [facility] due to Due to 28 Family type 2 Type 2 00:00: Practic diabetes Diabetes 00 e mellitus Mellitus Obesity Obesity Problem Active [facility] 6-18 Family 00:00: Practic 00 e Allergies, Adverse Reactions, Alerts This patient has no known allergies or adverse reactions. Social History Smoking Status Start Date Stop Date Source Never Smoker [facility] Medications Ordered Filled Start Stop Current Ordering Indication Dosage Frequency Signature Comments Components Source Medication Medication Date Date Medication? Clinician (SIG) Name Name Adult Adult No 1 Q1D Adult [facility] Aspirin Aspirin Aspirin Family Regimen 81 Regimen 81 Regimen 81 Practic mg mg mg e tablet,scarlett tablet,scarlett tablet,del yed release yed release ayed Take 1 Take 1 release tablet tablet Take 1 every day every day tablet by oral by oral every day route. route. by oral route. carvedilol carvedilol No carvedilol [facility] 6.25 mg 6.25 mg 6.25 mg Family tablet TAKE tablet TAKE tablet Practic 1 TABLET BY 1 TABLET BY TAKE 1 e MOUTH TWICE MOUTH TWICE TABLET BY A DAY A DAY MOUTH TWICE A DAY clotrimazol clotrimazol No clotrimazo [facility] e 10 mg e 10 mg le 10 mg Famil y marc marc marc Practic DISSOLVE 1 DISSOLVE 1 DISSOLVE 1 e T ON TONGUE T ON TONGUE T ON TID PC TID PC TONGUE TID PC FreeStyle FreeStyle No FreeStyle [facility] Lite Strips Lite Strips Lite F amily TAKE 3 TAKE 3 Strips Practic STRIP(S) STRIP(S) TAKE 3 e EVERY DAY EVERY DAY STRIP(S) BY MISCELL. BY MISCELL. EVERY DAY ROUTE FOR ROUTE FOR BY 90 DAYS. 90 DAYS. MISCELL. ROUTE FOR 90 DAYS. furosemide furosemide No 1 Q1D furosemide [facility] 40 mg 40 mg 40 mg Family tablet Take tablet Take tablet Practic 1 tablet 1 tablet Take 1 e every day every day tablet by oral by oral every day route as route as by oral needed for needed for route as 30 days. 30 days. needed for 30 days. gabapentin gabapentin No 1capsul Q1D gabapentin [facility] 300 mg 300 mg e(s) 300 mg [facility] capsule capsule capsule Practi c Take 1 Take 1 Take 1 e capsule capsule capsule every day every day every day by oral by oral by oral route at route at route at bedtime. bedtime. bedtime. Humulin R Humulin R No Humulin R [facility] U-500 U-500 U-500 Family (Conc) (Conc) (Conc) Practic Insulin Insulin Insulin e Kwikpen 500 Kwikpen 500 Kwikpen unit/mL (3 unit/mL (3 500 mL) mL) unit/mL (3 subcutaneou subcutaneou mL) s Give 60 s Give 60 subcutaneo units units us Give 60 before before units breakfast breakfast before and dinner and dinner breakfast and and and dinner increase as increase as and directed: directed: increase TDD 250 TDD 250 as directed: TDD 250 hydralazine hydralazine No hydralazin [facility] 50 mg 50 mg e 50 mg Family tablet TAKE tablet TAKE tablet Practic 1 TABLET BY 1 TABLET BY TAKE 1 e MOUTH THREE MOUTH THREE TABLET BY TIMES A DAY TIMES A DAY MOUTH THREE TIMES A DAY levetiracet levetiracet No levetirace [facility] am 500 mg am 500 mg alicea 500 mg Family tablet TAKE tablet TAKE tablet Practic 1 TABLET BY 1 TABLET BY TAKE 1 e MOUTH TWICE MOUTH TWICE TABLET BY A DAY A DAY MOUTH TWICE A DAY losartan 25 losartan 25 No losartan [facility] mg tablet mg tablet 25 mg Fami ly TAKE 1 TAKE 1 tablet Practic TABLET BY TABLET BY TAKE 1 e MOUTH EVERY MOUTH EVERY TABLET BY DAY DAY MOUTH EVERY DAY nifedipine nifedipine No nifedipine [facility] ER 60 mg ER 60 mg ER 60 mg Fam shannon tablet,exte tablet,exte tablet,ext Practic nded nded ended e release release release Take 1 Take 1 Take 1 tablet tablet tablet twice a day twice a day twice a by oral by oral day by route as route as oral route directed directed as for 90 for 90 directed days. days. for 90 days. pantoprazol pantoprazol No pantoprazo [facility] e 40 mg e 40 mg le 40 mg Famil y tablet,csarlett tablet,scarlett tablet,del Practic yed release yed release ayed e TAKE 1 TAKE 1 release TABLET BY TABLET BY TAKE 1 MOUTH EVERY MOUTH EVERY TABLET BY DAY DAY MOUTH EVERY DAY paroxetine paroxetine No paroxetine [facility] 20 mg 20 mg 20 mg Family tablet TAKE tablet TAKE tablet Practic 1 TABLET BY 1 TABLET BY TAKE 1 e MOUTH EVERY MOUTH EVERY TABLET BY DAY IN THE DAY IN THE MOUTH MORNING MORNING EVERY DAY IN THE MORNING pravastatin pravastatin No pravastati [facility] 40 mg 40 mg n 40 mg Family tablet TAKE tablet TAKE tablet Practic 1 TABLET BY 1 TABLET BY TAKE 1 e MOUTH EVERY MOUTH EVERY TABLET BY DAY AT DAY AT MOUTH NIGHT NIGHT EVERY DAY AT NIGHT prednisone prednisone No prednisone [facility] 5 mg tablet 5 mg tablet 5 mg F amily TAKE 2 TAKE 2 tablet Practic TABLETS BY TABLETS BY TAKE 2 e MOUTH EVERY MOUTH EVERY TABLETS BY DAY DAY MOUTH EVERY DAY sodium sodium No sodium [facility] bicarbonate bicarbonate bicarbonat Family 325 mg 325 mg e 325 mg Practic tablet TAKE tablet TAKE tablet e 2 TABLETS 2 TABLETS TAKE 2 (650 MG (650 MG TABLETS TOTAL) BY TOTAL) BY (650 MG MOUTH 2 MOUTH 2 TOTAL) BY (TWO) TIMES (TWO) TIMES MOUTH 2 DAILY. DAILY. (TWO) TIMES DAILY. sulfamethox sulfamethox No sulfametho [facility] azole 400 azole 400 xazole 400 Family mg-trimetho mg-trimetho mg-trimeth Practic prim 80 mg prim 80 mg oprim 80 e tablet TAKE tablet TAKE mg tablet 1 TABLET BY 1 TABLET BY TAKE 1 MOUTH EVERY MOUTH EVERY TABLET BY DAY DAY MOUTH EVERY DAY tacrolimus tacrolimus No 1packet BID tacrolimus [facility] 0.2 mg oral 0.2 mg oral (s) 0.2 mg Family granules in granules in oral P ractic packet Take packet Take granules e 1 packet 1 packet in packet twice a day twice a day Take 1 by oral by oral packet route as route as twice a directed. directed. day by oral route as directed. valganciclo valganciclo No valgancicl [facility] vir 450 mg vir 450 mg ovir 450 Family tablet TAKE tablet TAKE mg tablet Practic 1 TABLET BY 1 TABLET BY TAKE 1 e MOUTH EVERY MOUTH EVERY TABLET BY DAY DAY MOUTH EVERY DAY Immunizations Ordered Immunization Filled Immunization Date Status Commen Source Name Name COVID-19, mRNA, COVID-19, mRNA, 2020-06-[address] [facility] Family LNP-S, PF, 30 LNP-S, PF, 30 00:00:00 Practice mcg/0.3 mL dose mcg/0.3 mL dose influenza, influenza, 2018-05-12 [facility] injectable, injectable, 00:00:00 Practice quadrivalent quadrivalent Vital Signs Vital Name Observation Time Observation Value Comments Source BP Diastolic 2020-08-02 00:00:00 76 mm[Hg] [facility] Practice Height 2020-08-02 00:00:00 67 [in_i] [facility] BMI (Body Mass 2020-08-02 00:00:00 33.5 kg/m2 [facility] Index) Practice BP Systolic 2020-08-02 00:00:00 116 mm[Hg] [facility] Body Weight 2020-08-02 00:00:00 214 [lb_av] [facility] BP Diastolic 2020-03-03 00:00:00 72 mm[Hg] [facility] Height 2020-03-03 00:00:00 67 [in_i] [facility] BMI (Body Mass 2020-03-03 00:00:00 31.4 kg/m2 [facility] Index) Practice BP Systolic 2020-03-03 00:00:00 118 mm[Hg] [facility] Body Weight 2020-03-03 00:00:00 200.4 [lb_av] [facility] Procedures Procedure Date / Time Performing Clinician Source Performed Transplant of Kidney 2014-04-11 00:00:00 [facility] Hysterectomy (Total) 2011-10-11 00:00:00 [facility] Laparoscopic 1995-05-12 00:00:00 [facility] Fami ly Cholecystectomy Practice Encounters Start End Encounter Admission Attending Care Care Encounter Source Date/Time Date/Time Type Type Clinicians Facility Department ID 2020-08-02 2020-08-02 Fredi [facility] [place] - [id number] [facility] 00:00:00 00:00:00 Lorie [facility] Family [facility] c : [id number] [facility], [address], [place] [address] , Ph. 2020-03-03 2020-03-03 Fredi [place] - [id number] V illage 00:00:00 00:00:00 Lorie [facility] Pracmanolo cano MD: [id number] [address] [facility], [address], [place] [address] , Ph. 2019-06-16 2019-06-16 Office FAVIO Guillory [id number] 12:40:31 13:10:31 Visit Aisha AMBULATOR [id number] Y [id number] 2019-06-01 2019-06-01 Office FAVIO Raymond [id number] 12:24:54 15:00:21 Visit Aisha AMBULATOR [id number] Y [id number] 2019-01-13 2019-01-13 Office FAVIO Raymond [id number] 10:58:35 15:41:13 Visit Aisha AMBULATOR [id number] Y [id number] 2018-12-14 2018-12-14 Office FAVIO Guillory [id number] 12:47:35 13:24:59 Visit Aisha AMBULATOR [id number] Y [id number] Results Test Description Test Time Test Comments Results Result Comments Source TACROLIMUS LEVEL 2020-09-18 11:58:00 Test Item Value Reference Range Interpretation Comme nts TACROLIMUS BLOOD (BEAKER) 7.6 ng/mL 10.0-20.[address] performed on [employer] (test code = 657) SimpliVT y system with Chemiluminescen t Microparticle Immunoassay (CM IA) technology. Brinell Tester ID - AAHAMIDCOMPREHENSIVE METABOLIC [id number] 10:51:00 Test Item Value Reference Range Interpretation Comments TOTAL PROTEIN 7.9 gm/dL 6.0-8.3 (BEAKER) (test code = 770) ALBUMIN (BEAKER) 4.2 g/dL 3.5-5.0 (test code = 1145) ALKALINE PHOSPHATASE 134 U/L 40-150 (BEAKER) (test code = 346) [...] (BEAKER) (test code = 354) CREATININE (BEAKER) 1.08 mg/dL 0.57-1.25 (test code = 358) GLUCOSE RANDOM 148 mg/dL 70-105 H (BEAKER) (test code = 652) CALCIUM (BEAKER) 10.3 mg/dL 8.4-10.2 H (test code = 697) AST (SGOT) (BEAKER) 58 U/L 5-34 H (test code = 353) ALT (SGPT) (BEAKER) 76 U/L 6-55 H (test code = 347) EGFR (BEAKER) (test 54 mL/min/1.73 ESTIMA BRII GFR IS code = 1092) sq m NOT ACCURATE CREATININE CLEARANCE IN PREDICTING GLOMERULAR FILTRATION RATE . ESTIMATED GFR I S NOT APPLICABLE FOR DIALYSIS PATIEN TS. Brinell Tester ID Emerald LEES FSpecimen moderately lipemicTACROLIMUS [id number] 14:45:00 Test Item Value Reference Range Interpretation Comments TACROLIMUS BLOOD 5.7 ng/mL 10.0-20.0 L Test perfor med on Jaffe (BEAKER) (test code Architec t Immunoassay = 657) system with Chemiluminescen t Microparticle I mmunoassay (CMIA) technolo gy. Brinell Tester ID Emerald LEES FCREATININE, RANDOM [id number] 10:30:00 Test Item Value Reference Range Interpretation Comments CREATININE URINE (BEAKER) (test 99.4 mg/dL code = 375) Reference Range: No NormalsOperator ID Emerald LEES FPROTEIN, RANDOM URINE 2020-09-14 10:30:00 Test Item Value Reference Range Interpretation Comments PROTEIN, URINE (BEAKER) (test code 178 mg/dL 0-14 H = 1569) Brinell Tester ID Emerald LEES FCOMPREHENSIVE METABOLIC [id number] 10:25:00 Test Item Value Reference Range Interpretation Comments TOTAL PROTEIN 7.1 gm/dL 6.0-8.3 (BEAKER) (test code = 770) ALBUMIN (BEAKER) 4.1 g/dL 3.5-5.0 (test code = 1145) ALKALINE PHOSPHATASE 116 U/L 40-150 (BEAKER) (test code = 346) BILIRUBIN TOTAL 0.5 mg/dL 0.2-1.2 (BEAKER) (test code = 377) SODIUM (BEAKER) (test 140 meq/L 136-145 code = 381) POTASSIUM (BEAKER) 3.8 meq/L 3.5-5.1 (test code = 379) CHLORIDE (BEAKER) 102 meq/L 98-107 (test code = 382) CO2 (BEAKER) (test 25 meq/L 22-29 code = 355) BLOOD UREA NITROGEN 15 mg/dL 7-21 (BEAKER) (test code = 354) CREATININE (BEAKER) 1.10 mg/dL 0.57-1.25 (test code = 358) GLUCOSE RANDOM 140 mg/dL 70-105 H (BEAKER) (test code = 652) CALCIUM (BEAKER) 9.7 mg/dL 8.4-10.2 (test code = 697) AST (SGOT) (BEAKER) 30 U/L 5-34 (test code = 353) ALT (SGPT) (BEAKER) 50 U/L 6-55 (test code = 347) EGFR (BEAKER) (test 53 mL/min/1.73 ESTIMA BRII GFR IS code = 1092) sq m NOT ACCURATE CREATININE CLEARANCE IN PREDICTING GLOMERULAR FILTRATION RATE . ESTIMATED GFR I S NOT APPLICABLE FOR DIALYSIS PATIEN TS. Brinell Tester ID - NABEEL [id number] 10:25:00 Test Item Value Reference Range Interpretation Comments PHOSPHORUS (BEAKER) (test code = 3.6 mg/dL 2.3-4.7 604) Brinell Tester ID Emerald NABEEL FURINALYSIS W/ REFLEX URINE [id number] 10:22:00 Test Item Value Reference Range Interpretation Comments COLOR (BEAKER) (test code = 470) Yellow CLARITY (BEAKER) (test code = 469) Clear SPECIFIC GRAVITY UA (BEAKER) (test 1.013 1.001-1.035 code = 468) PH UA (BEAKER) (test code = 467) 6.0 5.0-8.0 PROTEIN UA (BEAKER) (test code = 200 mg/dL Negative A 464) GLUCOSE UA (BEAKER) (test code = Negative Negative 365) KETONES UA (BEAKER) (test code = Negative Negative 371) BILIRUBIN UA (BEAKER) (test code = Negative Negative 462) BLOOD UA (BEAKER) (test code = 461) Negative Negative NITRITE UA (BEAKER) (test code = Negative Negative 465) LEUKOCYTE ESTERASE UA (BEAKER) Negative Negative (test code = 466) UROBILINOGEN UA (BEAKER) (test code 0.2 mg/dL 0.2-1.0 = 463) RBC UA (BEAKER) (test code = 519) < /HPF WBC UA (BEAKER) (test code = 520) 1 /HPF BACTERIA (BEAKER) (test code = 517) Rare SQUAMOUS EPITHELIAL (BEAKER) (test 6 /HPF code = 516) HYALINE CASTS (BEAKER) (test code = 1 /LPF 514) SOURCE(BEAKER) (test code = 2961) Brinell Tester ID - [auto]Brinell Tester ID - techCBC W/PLT COUNT & AUTO DIFFERENTIAL 2020-09-14 09:52:00 Test Item Value Reference Range Interpretation Comments WHITE BLOOD CELL COUNT (BEAKER) 5.7 K/ L 3.5-10.5 (test code = 775) RED BLOOD CELL COUNT (BEAKER) 4.23 M/ L 3.93-5.22 (test code = 761) HEMOGLOBIN (BEAKER) (test code = 13.2 GM/DL 11.2-15.7 410) HEMATOCRIT (BEAKER) (test code = 40.7 % 34.1-44.9 411) MEAN CORPUSCULAR VOLUME (BEAKER) 96.2 fL 79.4-94.8 H (test code = 753) MEAN CORPUSCULAR HEMOGLOBIN 31.2 pg 25.6-32.2 (BEAKER) (test code = 751) MEAN CORPUSCULAR HEMOGLOBIN CONC 32.4 GM/DL 32.2-35.5 (BEAKER) (test code = 752) RED CELL DISTRIBUTION WIDTH 13.7 % 11.7-14.4 (BEAKER) (test code = 412) PLATELET COUNT (BEAKER) (test 219 K/CU MM 150-450 code = 756) MEAN PLATELET VOLUME (BEAKER) 10.3 fL 9.4-12.3 (test code = 754) NUCLEATED [...] (test code = 437) NEUTROPHILS ABSOLUTE COUNT 3.87 K/ L 1.56-6.13 (BEAKER) (test code = 670) LYMPHOCYTES ABSOLUTE COUNT 0.98 K/ L 1.18-3.74 L (BEAKER) (test code = 414) MONOCYTES ABSOLUTE COUNT (BEAKER) 0.47 K/ L 0.24-0.36 H (test code = 415) EOSINOPHILS ABSOLUTE COUNT 0.16 K/ L 0.04-0.36 (BEAKER) (test code = 416) BASOPHILS ABSOLUTE COUNT (BEAKER) 0.04 K/ L 0.01-0.08 (test code = 417) IMMATURE GRANULOCYTES-RELATIVE 3 % 0-1 H PERCENT (BEAKER) (test code = 2801) CBC W/PLT COUNT & AUTO [id number] 13:44:00 Test Item Value Reference Range Interpretation Comments WHITE BLOOD CELL COUNT (BEAKER) 10.9 K/ L 3.5-10.5 H (test code = 775) RED BLOOD CELL COUNT (BEAKER) 4.14 M/ L 3.93-5.22 (test code = 761) HEMOGLOBIN (BEAKER) (test code = 13.2 GM/DL 11.2-15.7 410) HEMATOCRIT (BEAKER) (test code = 41.1 % 34.1-44.9 411) MEAN CORPUSCULAR VOLUME (BEAKER) 99.3 fL 79.4-94.8 H (test code = 753) MEAN CORPUSCULAR HEMOGLOBIN 31.9 pg 25.6-32.2 (BEAKER) (test code = 751) MEAN CORPUSCULAR HEMOGLOBIN CONC 32.1 GM/DL 32.2-35.5 L (BEAKER) (test code = 752) RED CELL DISTRIBUTION WIDTH 13.8 % 11.7-14.4 (BEAKER) (test code = 412) PLATELET COUNT (BEAKER) (test 361 K/CU MM 150-450 code = 756) MEAN PLATELET VOLUME (BEAKER) 10.1 fL 9.4-12.3 (test code = 754) NUCLEATED RED BLOOD CELLS 0 /100 WBC 0-0 (BEAKER) (test code = 413) (MANUAL DIFFERENTIAL)2020-08-31 13:44:00 Test Item Value Reference Range Interpretation Comments NEUTROPHILS - REL (DIFF) (BEAKER) 74 % (test code = 1359) LYMPHOCYTES - REL (DIFF) (BEAKER) 17 % (test code = 1360) MONOCYTES - REL (DIFF) (BEAKER) 3 % (test code = 1361) EOSINOPHILS - REL (DIFF) (BEAKER) 1 % (test code = 1362) MYELOCYTES-REL (DIFF) (BEAKER) 2 % 0-0 H (test code = 1594) BANDS - REL (DIFF) (BEAKER) (test 3 % 0-10 code = 1348) NEUTROPHILS - ABS (DIFF) (BEAKER) 8.07 K/ L 1.80-8.00 H (test code = 1365) LYMPHOCYTES - ABS (DIFF) (BEAKER) 1.85 K/ L 1.48-4.50 (test code = 1366) MONOCYTES - ABS (DIFF) (BEAKER) 0.33 K/ L 0.00-1.30 (test code = 1367) EOSINOPHILS - ABS (DIFF) (BEAKER) 0.11 K/ L 0.00-0.50 (test code = 1368) BANDS-ABS (DIFF) (BEAKER) (test 0.3 K/ L 0.0-0.8 code = 1349) MYELOCYTES-ABS (DIFF) (BEAKER) 0.22 K/ L 0.00-0.00 H (test code = 1593) TOTAL COUNTED (BEAKER) (test code = 100 1351) BANDS + SEGMENTED NEUTROPHILS 8.39 (BEAKER) (test code = 1352) WBC MORPHOLOGY (BEAKER) (test code Normal = 487) PLT MORPHOLOGY (BEAKER) (test code Normal = 486) RBC MORPHOLOGY (BEAKER) (test code Normal = 762) URINALYSIS W/ REFLEX URINE [id number] 12:24:00 Test Item Value Reference Range Interpretation Comments COLOR (BEAKER) (test code = 470) Light Yellow CLARITY (BEAKER) (test code = Clear 469) SPECIFIC GRAVITY UA (BEAKER) 1.011 1.001-1.035 (test code = 468) PH UA (BEAKER) (test code = 467) 6.0 5.0-8.0 PROTEIN UA (BEAKER) (test code = 70 mg/dL Negative A 464) GLUCOSE UA (BEAKER) [...] 463) RBC UA (BEAKER) (test code = 9 /HPF 519) WBC UA (BEAKER) (test code = 1 /HPF 520) BACTERIA (BEAKER) (test code = Occasional 517) SQUAMOUS EPITHELIAL (BEAKER) 1 /HPF (test code = 516) CASTS (BEAKER) (test code = 1 /LPF 1579) SOURCE(BEAKER) (test code = 2795) Brinell Tester ID - [auto]Brinell Tester ID - techTACROLIMUS [id number] 12:19:00 Test Item Value Reference Range Interpretation Comments TACROLIMUS BLOOD 8.9 ng/mL 10.0-20.0 L Test perfor med on Jaffe (BEAKER) (test code Architec t Immunoassay = 657) system with Chemiluminescen t Microparticle I mmunoassay (CMIA) technolo gy. Brinell Tester ID - AAHAMIDCOMPREHENSIVE METABOLIC [id number] 10:33:00 Test Item Value Reference Range Interpretation Comments TOTAL PROTEIN 7.4 gm/dL 6.0-8.3 (BEAKER) (test code = 770) ALBUMIN (BEAKER) 4.3 g/dL 3.5-5.0 (test code = 1145) ALKALINE PHOSPHATASE 137 U/L 40-150 (BEAKER) (test code = 346) BILIRUBIN TOTAL 0.6 mg/dL 0.2-1.2 (BEAKER) (test code = 377) SODIUM (BEAKER) (test 137 meq/L 136-145 code = 381) POTASSIUM (BEAKER) 4.8 meq/L 3.5-5.1 (test code = 379) CHLORIDE (BEAKER) 101 meq/L 98-107 (test code = 382) CO2 (BEAKER) (test 24 meq/L 22-29 code = 355) BLOOD UREA NITROGEN 24 mg/dL 7-21 H (BEAKER) (test code = 354) CREATININE (BEAKER) 1.13 mg/dL 0.57-1.25 (test code = 358) GLUCOSE RANDOM 160 mg/dL 70-105 H (BEAKER) (test code = 652) CALCIUM (BEAKER) 10.0 mg/dL 8.4-10.2 (test code = 697) AST (SGOT) (BEAKER) 29 U/L 5-34 (test code = 353) ALT (SGPT) (BEAKER) 40 U/L 6-55 (test code = 347) EGFR (BEAKER) (test 51 mL/min/1.73 ESTIMA BRII GFR IS code = 1092) sq m NOT ACCURATE CREATININE CLEARANCE IN PREDICTING GLOMERULAR FILTRATION RATE . ESTIMATED GFR I S NOT APPLICABLE FOR DIALYSIS PATIEN TS. Brinell Tester ID - NABEEL [id number] 10:33:00 Test Item Value Reference Range Interpretation Comments PHOSPHORUS (BEAKER) (test code = 4.1 mg/dL 2.3-4.7 604) Brinell Tester ID - NABEEL FCREATININE, RANDOM [id number] 10:24:00 Test Item Value Reference Range Interpretation Comments CREATININE URINE (BEAKER) (test 33.3 mg/dL code = 375) Reference Range: No NormalsOperator ID - NABEEL FPROTEIN, RANDOM URINE 2020-08-31 10:24:00 Test Item Value Reference Range Interpretation Comments PROTEIN, URINE (BEAKER) (test code = 90 mg/dL 0-14 H 1569) Brinell Tester ID - NABEEL FBLOOD [id number] 11:58:00 Test Item Value Reference Range Interpretation Comments CULTURE (BEAKER) (test No growth in 5 days code = 1095) BLOOD [id number] 23:00:00 Test Item Value Reference Range Interpretation Comments CULTURE (BEAKER) (test No growth in 5 days code = 1095) TACROLIMUS [id number] 11:53:00 Test Item Value Reference Range Interpretation Comments TACROLIMUS BLOOD 7.5 ng/mL 10.0-20.0 L Test perfor med on Jaffe (BEAKER) (test code Architec t Immunoassay = 657) system with Chemiluminescen t Microparticle I mmunoassay (CMIA) technolo gy. Brinell Tester ID - SUMMERALBASIC METABOLIC [id number] 11:35:00 Test Item Value Reference Range Interpretation Comments SODIUM (BEAKER) 140 meq/L 136-145 (test code = 381) POTASSIUM (BEAKER) 3.7 meq/L 3.5-5.1 (test code = 379) CHLORIDE (BEAKER) 105 meq/L 98-107 (test code = 382) CO2 (BEAKER) (test 23 meq/L 22-29 code = 355) BLOOD UREA NITROGEN 24 mg/dL 7-21 H (BEAKER) (test code = 354) CREATININE (BEAKER) 1.18 mg/dL 0.57-1.25 (test code = 358) GLUCOSE RANDOM 121 mg/dL 70-105 H (BEAKER) (test code = 652) CALCIUM (BEAKER) 9.5 mg/dL 8.4-10.2 (test code = 697) EGFR (BEAKER) (test 48 mL/min/1.73 ESTIMA BRII GFR IS code = 1092) sq m NOT ACCURATE CREATININE CLEARANCE IN PREDICTING GLOMERULAR FILTRATION RATE . ESTIMATED GFR I S NOT APPLICABLE FOR DIALYSIS PATIEN TS. [place] Tester ID - [id number] 11:35:00 Test Item Value Reference Range Interpretation Comments MAGNESIUM (BEAKER) (test code = 1.8 mg/dL 1.6-2.6 627) [place] Tester ID - [id number] 11:35:00 Test Item Value Reference Range Interpretation Comments PHOSPHORUS (BEAKER) (test code = 3.5 mg/dL 2.3-4.7 604) [place] Tester ID - EMERSONPOCT-GLUCOSE [id number] 08:36:00 Test Item Value Reference Range Interpretation Comments POC-GLUCOSE METER 111 mg/dL 70-110 H : TESTED A T [facility] 6720 (BEAKER) (test code = GILDA Gates [facility], 1538) [address]: Brinell Tester/Techni martita ID = [id number] for TIA HAMLIN CBC W/PLT COUNT & AUTO [id number] 06:43:00 Test Item Value Reference Range Interpretation Comments WHITE BLOOD CELL COUNT (BEAKER) 10.2 K/ L 3.5-10.5 (test code = 775) RED BLOOD CELL COUNT (BEAKER) 3.39 M/ L 3.93-5.22 L (test code = 761) HEMOGLOBIN (BEAKER) (test code = 10.7 GM/DL 11.2-15.7 L 410) HEMATOCRIT (BEAKER) (test code = 33.5 % 34.1-44.9 L 411) MEAN CORPUSCULAR VOLUME (BEAKER) 98.8 fL 79.4-94.8 H (test code = 753) MEAN CORPUSCULAR HEMOGLOBIN 31.6 pg 25.6-32.2 (BEAKER) (test code = 751) MEAN CORPUSCULAR HEMOGLOBIN CONC 31.9 GM/DL 32.2-35.5 L (BEAKER) (test code = 752) RED CELL DISTRIBUTION WIDTH 12.8 % 11.7-14.4 (BEAKER) (test code = 412) PLATELET COUNT (BEAKER) (test 369 K/CU MM 150-450 code = 756) MEAN PLATELET VOLUME (BEAKER) 9.8 fL 9.4-12.3 (test code = 754) NUCLEATED RED BLOOD CELLS 0 /100 WBC 0-0 (BEAKER) (test code = 413) NEUTROPHILS RELATIVE PERCENT 80 % (BEAKER) (test code = 429) LYMPHOCYTES RELATIVE PERCENT 10 % (BEAKER) (test code = 430) MONOCYTES RELATIVE PERCENT 8 % (BEAKER) (test code = 431) EOSINOPHILS RELATIVE PERCENT 1 % (BEAKER) (test code = 432) BASOPHILS RELATIVE PERCENT 0 % (BEAKER) (test code = 437) NEUTROPHILS ABSOLUTE COUNT 8.14 K/ L 1.56-6.13 H (BEAKER) (test code = 670) LYMPHOCYTES ABSOLUTE COUNT 0.97 K/ L 1.18-3.74 L (BEAKER) (test code = 414) MONOCYTES ABSOLUTE COUNT (BEAKER) 0.79 K/ L 0.24-0.36 H (test code = 415) EOSINOPHILS ABSOLUTE COUNT 0.06 K/ L 0.04-0.36 (BEAKER) (test code = 416) BASOPHILS ABSOLUTE COUNT (BEAKER) 0.04 K/ L 0.01-0.08 (test code = 417) IMMATURE GRANULOCYTES-RELATIVE 2 % 0-1 H PERCENT (BEAKER) (test code = 2801) POCT-GLUCOSE [id number] 20:57:00 Test Item Value Reference Range Interpretation Comments POC-GLUCOSE METER 237 mg/dL 70-110 H : TESTED Keisha Jair [facility] 6720 (BEAKER) (test code = GILDA [place], 1538) [address]: Brinell Tester/Techni martita ID = [id number] for CHETAN WINNMILECRUZITO POCT-GLUCOSE [id number] 17:44:00 Test Item Value Reference Range Interpretation Comments POC-GLUCOSE METER 295 mg/dL 70-110 H : Notified RN/MD: (ESTERLLA) (test code = TESTED AT [facility] 6720 1538) [facility]ED[place]IC [facility], [address]: Brinell Tester/Techni martita ID = [id number] for NANCY VERDUZCO CT, CHEST, WITHOUT [id number] 16:55:00Dialysis 05/23Unlisted Reason for Exam - Click Yes and Enter Reason Below->No [facility] 1970 Sex: FFINAL REPORT TECHNIQUE: CT of the chest WITHOUT intravenous contrast. Dose modulation, iterative reconstruction, and/or weight-based adjustment of the mA/kV was utilized to reduce the radiation dose to as low as reasonably achievable. INDICATION: 50-year-old woman with chest pain or shortness of breath, pleurisy or effusion suspected. COMPARISON: Chest radiograph 08/22/2020, chest CT 02/03/2020. FINDINGS: ABSENCE OF INTRAVENOUS CONTRAST DECREASES SENSITIVITY FOR DETECTION OF FOCAL LESIONS AND VASCULAR PATHOLOGY. LINES/TUBES: None. LUNGS AND AIRWAYS: Central airways are patent. Atelectasis in the left lung base. Mild dependent atelectasis in the right lower lobe.PLEURA: Trace left pleural effusion. HEART AND MEDIASTINUM: Visualized thyroid gland is normal. No significant mediastinal, hilar, or axillary lymphadenopathy. Mild cardiomegaly. Small pericardial effusion. Atherosclerotic coronary artery calcifications. BONES AND SOFT TISSUES: No acute osseous abnormalities. Soft tissues are unremarkable. UPPER ABDOMEN: Unremarkable. IMPRESSION:No acute pulmonary ab normalities. Trace left pleural effusion. Small pericardial effusion. Signed: Steve Reidort Verified Date/Time: 08/23/2020 16:55:59 Electronically signed by: STEVE REID MD on08/23/2020 04:55 PM SARS-COV2/RT-PCR ([facility])2020-08-23 16:08:00 Test Item Value Reference Range Interpretation Comments SARS-COV2/RT-PCR (test Negative Not Detected, Negative, code = 4864736) See external report for linked test SARS-COV-2 PERFORMING LAB [facility] TODD (test code = 8305189) Negative result for this test determines that SARS-CoV-2 RNA was not present in the specimen above the Limit of Detection (LOD). However, Negative results do not preclude SARS-CoV-2 infection and should not be used as the sole basis for treatment or patient management decisions. Negative results mustbe combined with clinical observations, patient history, and epidemiological information. A false negative result may occur if a specimen is improperly collected, transported or handled. A false negative result should be considered if patient's recent exposures or clinical presentation indicate that COVID-19 (SARS-CoV-2) is likely and diagnostic tests for other causes of illness are negative. Re-testing should be considered in cases of suspected false negatives.The limit of detection for this assay is 800 copies/mL.This SARS CoV-2 test is a real-time RT-PCR test intended for the qualitative detection of nucleic acid from SARS-CoV-2 in a nasopharyngeal swab specimen collected from individuals suspected of COVID-19 by their healthcare provider.This test has not been Food and Drug Administration (FDA) cleared or approved. This is a modified version of an approved Emergency Use Authorization (EUA) and is in the process of review by the FDA. Once authorized by the FDA, the issued EUA will be effective until the declaration that circumstances exist justifying the authorization of the emergency use of in vitro diagnostic tests for detection and/or diagnosis of COVID-19 is terminated under Section 564(b)(2) of the Act or the EUA is revoked under Section 564(g) of the Act.Fact Sheet for Healthcare Providers:https://www.[employer]/sites/default/files/product/documents/Fact_Shee n_QZ_Mqcahpaub_Rgan_NEVV-DtJ-3.pdfFact Sheet for Healthcare Patients:https://www.[employer]/sites/default/files/product/ documents/Xlja_Vcpdq_Dbywpkdg_Pumg_FSHJ-IgC-9.pdfPerforming Laboratory:[facility], [place] [address]UIYS-POLDTRP METER 2020-08-23 12:16:00 Test Item Value Reference Range Interpretation Comments POC-GLUCOSE METER 283 mg/dL 70-110 H : TESTED A T [facility] 6720 (BEAKER) (test code = GILDA Gates [facility], 1538) [address]: Brinell Tester/Techni martita ID = [id number] for NANCY VERDUZCO TACROLIMUS [id number] 10:41:00 Test Item Value Reference Range Interpretation Comments TACROLIMUS BLOOD 9.8 ng/mL 10.0-20.0 L Test perfor med on Jaffe (BEAKER) (test code Architec t Immunoassay = 657) system with Chemiluminescen t Microparticle I mmunoassay (CMIA) technolo gy. Brinell Tester ID - BAILEYIDCREATININE, RANDOM [id number] 09:53:00 Test Item Value Reference Range Interpretation Comments CREATININE URINE (BEAKER) (test 63.3 mg/dL code = 375) Reference Range: No NormalsOperator ID - RICHELLE LPROTEIN, RANDOM [id number] 09:53:00 Test Item Value Reference Range Interpretation Comments PROTEIN, URINE (BEAKER) (test code 144 mg/dL 0-14 H = 1569) Brinell Tester ID - RICHELLE LURINALYSIS W/ [id number] 09:45:00 Test Item Value Reference Range Interpretation Comments COLOR (BEAKER) (test code = 470) Light Yellow CLARITY (BEAKER) (test code = Clear 469) SPECIFIC GRAVITY UA (BEAKER) 1.011 1.001-1.035 (test code = 468) PH UA (BEAKER) (test code = 467) 7.0 5.0-8.0 PROTEIN UA (BEAKER) (test code = 100 mg/dL Negative A 464) GLUCOSE UA (BEAKER) [...] 463) RBC UA (BEAKER) (test code = 0 /HPF 519) WBC UA (BEAKER) (test code = < /HPF 520) BACTERIA (BEAKER) (test code = Rare 517) SQUAMOUS EPITHELIAL (BEAKER) 1 /HPF (test code = 516) SOURCE(BEAKER) (test code = 2795) Brinell Tester ID - [auto]Brinell Tester ID - techPOCT-GLUCOSE [id number] 09:22:00 Test Item Value Reference Range Interpretation Comments POC-GLUCOSE METER 198 mg/dL 70-110 H : TESTED A T [facility] 6720 (BEAKER) (test code = [place]DA [place], 1538) [address]: Brinell Tester/Techni martita ID = [id number] for NANCY VERDUZCO BASIC METABOLIC [id number] 07:23:00 Test Item Value Reference Range Interpretation Comments SODIUM (BEAKER) 139 meq/L 136-145 (test code = 381) POTASSIUM (BEAKER) 4.7 meq/L 3.5-5.1 (test code = 379) CHLORIDE (BEAKER) 106 meq/L 98-107 (test code = 382) CO2 (BEAKER) (test 22 meq/L 22-29 code = 355) BLOOD UREA NITROGEN 18 mg/dL 7-21 (BEAKER) (test code = 354) CREATININE (BEAKER) 1.15 mg/dL 0.57-1.25 (test code = 358) GLUCOSE RANDOM 169 mg/dL 70-105 H (BEAKER) (test code = 652) CALCIUM (BEAKER) 9.7 mg/dL 8.4-10.2 (test code = 697) EGFR (BEAKER) (test 50 mL/min/1.73 ESTIMA BRII GFR IS code = 1092) sq m NOT ACCURATE CREATININE CLEARANCE IN PREDICTING GLOMERULAR FILTRATION RATE . ESTIMATED GFR I S NOT APPLICABLE FOR DIALYSIS PATIEN TS. Brinell Tester ID - RICHELLE [id number] 07:23:00 Test Item Value Reference Range Interpretation Comments MAGNESIUM (BEAKER) (test code = 1.7 mg/dL 1.6-2.6 627) Brinell Tester ID - RICHELLE [id number] 07:23:00 Test Item Value Reference Range Interpretation Comments PHOSPHORUS (BEAKER) (test code = 2.1 mg/dL 2.3-4.7 L 604) Brinell Tester ID - RICHELLE LHIGH SENSITIVITY TROPONIN [id number] 06:54:00 Test Item Value Reference Range Interpretation Comments HIGH SENSITIVITY 6 pg/ml See_Comment [Automated message] TROPONIN I (test code = The system which [id number]) generated this result transmitted ref erence range: <=17. Th e reference range was not used to interpr et this result as normal/abnormal . Brinell Tester ID - RICHELLE LThe STAVE LOG CUT OFF SAW OPERATOR STAT High Sensitivity Troponin-I results should be used in conjunction with other diagnostic information such as ECG, clinical observations and information, and patient symptoms to aid in the diagnosis of NE.CBC W/PLT COUNT & AUTO [id number] 06:33:00 Test Item Value Reference Range Interpretation Comments WHITE BLOOD CELL COUNT (BEAKER) 9.5 K/ L 3.5-10.5 (test code = 775) RED BLOOD CELL COUNT (BEAKER) 3.37 M/ L 3.93-5.22 L (test code = 761) HEMOGLOBIN (BEAKER) (test code = 10.6 GM/DL 11.2-15.7 L 410) HEMATOCRIT (BEAKER) (test code = 33.8 % 34.1-44.9 L 411) MEAN CORPUSCULAR VOLUME (BEAKER) 100.3 fL 79.4-94.8 H (test code = 753) MEAN CORPUSCULAR HEMOGLOBIN 31.5 pg 25.6-32.2 (BEAKER) (test code = 751) MEAN CORPUSCULAR HEMOGLOBIN CONC 31.4 GM/DL 32.2-35.5 L (BEAKER) (test code = 752) RED CELL DISTRIBUTION WIDTH 12.8 % 11.7-14.4 (BEAKER) (test code = 412) PLATELET COUNT (BEAKER) (test 405 K/CU MM 150-450 code = 756) MEAN PLATELET VOLUME (BEAKER) 9.8 fL 9.4-12.3 (test code = 754) NUCLEATED RED BLOOD CELLS 0 /100 WBC 0-0 (BEAKER) (test code = 413) NEUTROPHILS RELATIVE PERCENT 90 % (BEAKER) (test code = 429) LYMPHOCYTES RELATIVE PERCENT 6 % (BEAKER) (test code = 430) MONOCYTES RELATIVE PERCENT 2 % (BEAKER) (test code = 431) EOSINOPHILS RELATIVE PERCENT 0 % (BEAKER) (test code = 432) BASOPHILS RELATIVE PERCENT 0 % (BEAKER) (test code = 437) NEUTROPHILS ABSOLUTE COUNT 8.49 K/ L 1.56-6.13 H (BEAKER) (test code = 670) LYMPHOCYTES ABSOLUTE COUNT 0.58 K/ L 1.18-3.74 L (BEAKER) (test code = 414) MONOCYTES ABSOLUTE COUNT (BEAKER) 0.21 K/ L 0.24-0.36 L (test code = 415) EOSINOPHILS ABSOLUTE COUNT 0.02 K/ L 0.04-0.36 L (BEAKER) (test code = 416) BASOPHILS ABSOLUTE COUNT (BEAKER) 0.03 K/ L 0.01-0.08 (test code = 417) IMMATURE GRANULOCYTES-RELATIVE 1 % 0-1 PERCENT (BEAKER) (test code = 2801) RAD, CHEST, 1 VIEW, NON [id number] 06:14:00Dialysis 05/23Reason for exam:- >sobIs the patient ?->NoShould this be performed at the [facility]?->Yes[facility] : 1970 Sex: FFINAL REPORT Chest one view. Clinical history: sob Comparison: Chest radiograph 08/18/2020. Technique: A single frontal view of the chest was obtained. Findings: Thecardiac silhouette is mildly enlarged. The aorta is tortuous and atherosclerotic. There is a small left pleural effusion with associated compressive atelectasis. There is no pulmonary edema or pneumothorax. The osseous structures are unremarkable. Impression: Small left pleural effusion with associated compressive atelectasis.Mild cardiomegaly. Signed: Aleks Jamison Verified Date/Time: 08/23/2020 06:14:30 POCT-GLUCOSE [id number] 22:44:00 Test Item Value Reference Range Interpretation Comments POC-GLUCOSE METER 129 mg/dL 70-110 H : TESTED A T [facility] 6720 (BEAKER) (test code = GILDA Gates [facility], 1538) [address]: Brinell Tester/Techni martita ID = [id number] for An Teo harrell HIGH SENSITIVITY TROPONIN [id number] 22:25:00 Test Item Value Reference Range Interpretation Comments HIGH SENSITIVITY 5 pg/ml See_Comment [Automated message] TROPONIN I (test code = The system which [id number]) generated this result transmitted ref erence range: <=17. Th e reference range was not used to interpr et this result as normal/abnormal . Brinell Tester ID - BSThe STAVE LOG CUT OFF SAW OPERATOR STAT High Sensitivity Troponin-I results should be used in conjunctionwith other diagnostic information such as ECG, clinical observations and information, and patient symptoms to aid in the diagnosis of NE.[id number] 22:19:00 Test Item Value Reference Range Interpretation Comments MAGNESIUM (BEAKER) (test code = 1.8 mg/dL 1.6-2.6 627) Brinell Tester ID - [id number] 22:19:00 Test Item Value Reference Range Interpretation Comments PHOSPHORUS (BEAKER) (test code = 2.7 mg/dL 2.3-4.7 604) Brinell Tester ID - BSBASIC METABOLIC [id number] 22:19:00 Test Item Value Reference Range Interpretation Comments SODIUM (BEAKER) 141 meq/L 136-145 (test code = 381) POTASSIUM (BEAKER) 3.6 meq/L 3.5-5.1 (test code = 379) CHLORIDE (BEAKER) 106 meq/L 98-107 (test code = 382) CO2 (BEAKER) (test 25 meq/L 22-29 code = 355) BLOOD UREA NITROGEN 15 mg/dL 7-21 (BEAKER) (test code = 354) CREATININE (BEAKER) 1.11 mg/dL 0.57-1.25 (test code = 358) GLUCOSE RANDOM 142 mg/dL 70-105 H (BEAKER) (test code = 652) CALCIUM (BEAKER) 10.1 mg/dL 8.4-10.2 (test code = 697) EGFR (BEAKER) (test 52 mL/min/1.73 ESTIMA BRII GFR IS code = 1092) sq m NOT ACCURATE CREATININE CLEARANCE IN PREDICTING GLOMERULAR FILTRATION RATE . ESTIMATED GFR I S NOT APPLICABLE FOR DIALYSIS PATIEN TS. Brinell Tester ID - BSCBC W/PLT COUNT & AUTO [id number] 22:02:00 Test Item Value Reference Range Interpretation Comments WHITE BLOOD CELL COUNT (BEAKER) 8.4 K/ L 3.5-10.5 (test code = 775) RED BLOOD CELL COUNT (BEAKER) 3.49 M/ L 3.93-5.22 L (test code = 761) HEMOGLOBIN (BEAKER) (test code = 11.0 GM/DL 11.2-15.7 L 410) HEMATOCRIT (BEAKER) (test code = 34.8 % 34.1-44.9 411) MEAN CORPUSCULAR VOLUME (BEAKER) 99.7 fL 79.4-94.8 H (test code = 753) MEAN CORPUSCULAR HEMOGLOBIN 31.5 pg 25.6-32.2 (BEAKER) (test code = 751) MEAN CORPUSCULAR HEMOGLOBIN CONC 31.6 GM/DL 32.2-35.5 L (BEAKER) (test code = 752) RED CELL DISTRIBUTION WIDTH 12.9 % 11.7-14.4 (BEAKER) (test code = 412) PLATELET COUNT (BEAKER) (test 401 K/CU MM 150-450 code = 756) MEAN PLATELET VOLUME (BEAKER) 9.4 fL 9.4-12.3 (test code = 754) NUCLEATED RED BLOOD CELLS 0 /100 WBC 0-0 (BEAKER) (test code = 413) NEUTROPHILS RELATIVE PERCENT 77 % (BEAKER) (test code = 429) LYMPHOCYTES RELATIVE PERCENT 11 % (BEAKER) (test code = 430) MONOCYTES RELATIVE PERCENT 8 % (BEAKER) (test code = 431) EOSINOPHILS RELATIVE PERCENT 2 % (BEAKER) (test code = 432) BASOPHILS RELATIVE PERCENT 1 % (BEAKER) (test code = 437) NEUTROPHILS ABSOLUTE COUNT 6.52 K/ L 1.56-6.13 H (BEAKER) (test code = 670) LYMPHOCYTES ABSOLUTE COUNT 0.89 K/ L 1.18-3.74 L (BEAKER) (test code = 414) MONOCYTES ABSOLUTE COUNT (BEAKER) 0.65 K/ L 0.24-0.36 H (test code = 415) EOSINOPHILS ABSOLUTE COUNT 0.16 K/ L 0.04-0.36 (BEAKER) (test code = 416) BASOPHILS ABSOLUTE COUNT (BEAKER) 0.05 K/ L 0.01-0.08 (test code = 417) IMMATURE GRANULOCYTES-RELATIVE 2 % 0-1 H PERCENT (BEAKER) (test code = 2801) BK VIRUS PCR, [id number] 08:49:00 Test Item Value Reference Range Interpretation Comments BK VIRUS, PLASMA, POS See ok anned report. (BEAKER) (test code = 1820) BK VIRUS, PLASMA, NEG See ok anned report. (BEAKER) (test code = 2145) CT, SOFT TISSUE NECK, WITHOUT IV [id number] 12:15:00Dialysis 12Patient complained of pain post removal of central lineUnlisted Reason for Exam - Click Yes and Enter Reason Below->YesUnlisted Reason for Exam->Patient complained of pain post removal of central line [facility] 1970 Sex: FFINAL REPORT Exam: CT SOFT TISSUE NECK WITHOUT CONTRAST History: 50-year-old female with right-sided neck pain. Status post right-sided central line removal.Comparison studies: None Technique: Axial images were obtained from the skull base to the thoracic inlet.Coronal and sagittal images reconstructed from the axial data.Dose modulation, iterative reconstruction, and/or weight based adjustment of the mA/kV was utilized to reduce the radiation dose to as low as reasonably achievable. Intravenous contrast: None Findings: Evaluation of the neck is limited due to the absence of intravenous contrast.In spite of this limitation, Airway: Patent. Soft tissues: No abnormalities. No discrete neck mass is seen. Lymph nodes: No radiographically significant adenopathy. Ves sels: Mild bilateral carotid bulb calcified plaque. Otherwise, suboptimally evaluated. Glands (thyroid, parotid and submandibular): Normal in size and symmetric. No masses. Subcentimeter coarse calcification in the right thyroid lobe. Orbits: No abnormalities.Paranasal sinuses: Clear.Temporal bones: No abnormalities.Skull base and facial bones: Intact. Cervical spine: Mild degenerative changes at the atlantoaxial and C5-6 levels. IMPRESSION: Unremarkable noncontrast CT of the neck. Signed: Dao Lerma [facility] Verified Date/Time: 08/18/2020 12:15:38 RAD, CHEST, 2 [id number] 11:26:00 Dialysis 05/23Reason for Exam:->STATUS POST KIDNEY TRANSPLANT [facility] : 1970 Sex: FFINAL REPORT EXAMINATION: RAD, CHEST, 2 VIEWS INDICATION: STATUS POST KIDNEY TRANSPLANT COMPARISON: CT scan 02/03/2020 FINDINGS:TUBES and LINES: None. LUNGS: Lungs are well inflated. Lungs are clear. There is no evidence of pneumonia or pulmonary edema. PLEURA: No pleural effusion or pneumothorax. HEART AND MEDIASTINUM: Cardiomegaly. Tortuous thoracic aorta. BONES AND SOFT TISSUES: No acute osseous lesion. Soft tissues are unremarkable. UPPER ABDOMEN: No free air under the diaphragm. IMPRESSION: Cardiomegaly. No consolidated pneumonia, pleural effusion or pneumothorax. Signed: Rupali Connors MDReport Verified Date/Time: 08/18/2020 11:26:27 Reading Location: [facility] Reading Room [address] [place] [address] TACROLIMUS [id number] 13:27:00 Test Item Value Reference Range Interpretation Comments TACROLIMUS BLOOD 8.4 ng/mL 10.0-20.0 L Test perfor med on Jaffe (BEAKER) (test code Architec t Immunoassay = 657) system with Chemiluminescen t Microparticle I mmunoassay (CMIA) technolo gy. Brinell Tester ID - RMURINALYSIS W/ REFLEX URINE [id number] 11:08:00 Test Item Value Reference Range Interpretation Comments COLOR (BEAKER) (test code = 470) Yellow CLARITY (BEAKER) (test code = 469) Clear SPECIFIC GRAVITY UA (BEAKER) (test 1.013 1.001-1.035 code = 468) PH UA (BEAKER) (test code = 467) 6.0 5.0-8.0 PROTEIN UA (BEAKER) (test code = 100 mg/dL Negative A 464) GLUCOSE UA (BEAKER) (test code = Negative Negative 365) KETONES UA (BEAKER) (test code = Negative Negative 371) BILIRUBIN UA (BEAKER) (test code = Negative Negative 462) BLOOD UA (BEAKER) (test code = 461) Negative Negative NITRITE UA (BEAKER) (test code = Negative Negative 465) LEUKOCYTE ESTERASE UA (BEAKER) Negative Negative (test code = 466) UROBILINOGEN UA (BEAKER) (test code 0.2 mg/dL 0.2-1.0 = 463) RBC UA (BEAKER) (test code = 519) 0 /HPF WBC UA (BEAKER) (test code = 520) 0 /HPF SQUAMOUS EPITHELIAL (BEAKER) (test 4 /HPF code = 516) SOURCE(BEAKER) (test code = 2795) Brinell Tester ID - [auto]Brinell Tester ID - [id number] 10:50:00 Test Item Value Reference Range Interpretation Comments PHOSPHORUS (BEAKER) (test code = 4.9 mg/dL 2.3-4.7 H 604) Brinell Tester ID - NABEEL FCREATININE, RANDOM [id number] 10:50:00 Test Item Value Reference Range Interpretation Comments CREATININE URINE (BEAKER) (test 79.4 mg/dL code = 375) Reference Range: No NormalsOperator ID - NABEEL FPROTEIN, RANDOM URINE 2020-08-17 10:50:00 Test Item Value Reference Range Interpretation Comments PROTEIN, URINE (BEAKER) (test code 151 mg/dL 0-14 H = 1569) Brinell Tester ID - NABEEL FCOMPREHENSIVE METABOLIC [id number] 10:49:00 Test Item Value Reference Range Interpretation Comments TOTAL PROTEIN 7.5 gm/dL 6.0-8.3 (BEAKER) (test code = 770) ALBUMIN (BEAKER) 3.9 g/dL 3.5-5.0 (test code = 1145) ALKALINE PHOSPHATASE 120 U/L 40-150 (BEAKER) (test code = 346) BILIRUBIN TOTAL 0.7 mg/dL 0.2-1.2 (BEAKER) (test code = 377) SODIUM (BEAKER) (test 140 meq/L 136-145 code = 381) POTASSIUM (BEAKER) 4.4 meq/L 3.5-5.1 (test code = 379) CHLORIDE (BEAKER) 105 meq/L 98-107 (test code = 382) CO2 (BEAKER) (test 21 meq/L 22-29 L code = 355) BLOOD UREA NITROGEN 24 mg/dL 7-21 H (BEAKER) (test code = 354) CREATININE (BEAKER) 1.38 mg/dL 0.57-1.25 H (test code = 358) GLUCOSE RANDOM 189 mg/dL 70-105 H (BEAKER) (test code = 652) CALCIUM (BEAKER) 10.2 mg/dL 8.4-10.2 (test code = 697) AST (SGOT) (BEAKER) 28 U/L 5-34 (test code = 353) ALT (SGPT) (BEAKER) 32 U/L 6-55 (test code = 347) EGFR (BEAKER) (test 40 mL/min/1.73 ESTIMA BRII GFR IS code = 1092) sq m NOT ACCURATE CREATININE CLEARANCE IN PREDICTING GLOMERULAR FILTRATION RATE . ESTIMATED GFR I S NOT APPLICABLE FOR DIALYSIS PATIEN TS. Brinell Tester ID - NABEEL FCBC W/PLT COUNT & AUTO [id number] 10:27:00 Test Item Value Reference Range Interpretation Comments WHITE BLOOD CELL COUNT (BEAKER) 12.2 K/ L 3.5-10.5 H (test code = 775) RED BLOOD CELL COUNT (BEAKER) 3.30 M/ L 3.93-5.22 L (test code = 761) HEMOGLOBIN (BEAKER) (test code = 10.6 GM/DL 11.2-15.7 L 410) HEMATOCRIT (BEAKER) (test code = 32.7 % 34.1-44.9 L 411) MEAN CORPUSCULAR VOLUME (BEAKER) 99.1 fL 79.4-94.8 H (test code = 753) MEAN CORPUSCULAR HEMOGLOBIN 32.1 pg 25.6-32.2 (BEAKER) (test code = 751) MEAN CORPUSCULAR HEMOGLOBIN CONC 32.4 GM/DL 32.2-35.5 (BEAKER) (test code = 752) RED CELL DISTRIBUTION WIDTH 12.8 % 11.7-14.4 (BEAKER) (test code = 412) PLATELET COUNT (BEAKER) (test 426 K/CU MM 150-450 code = 756) MEAN PLATELET VOLUME (BEAKER) 9.7 fL 9.4-12.3 (test code = 754) NUCLEATED RED BLOOD CELLS 0 /100 WBC 0-0 (BEAKER) (test code = 413) NEUTROPHILS RELATIVE PERCENT 81 % (BEAKER) (test code = 429) LYMPHOCYTES RELATIVE PERCENT 8 % (BEAKER) (test code = 430) MONOCYTES RELATIVE PERCENT 6 % (BEAKER) (test code = 431) EOSINOPHILS RELATIVE PERCENT 1 % (BEAKER) (test code = 432) BASOPHILS RELATIVE PERCENT 0 % (BEAKER) (test code = 437) NEUTROPHILS ABSOLUTE COUNT 9.87 K/ L 1.56-6.13 H (BEAKER) (test code = 670) LYMPHOCYTES ABSOLUTE COUNT 0.93 K/ L 1.18-3.74 L (BEAKER) (test code = 414) MONOCYTES ABSOLUTE COUNT (BEAKER) 0.74 K/ L 0.24-0.36 H (test code = 415) EOSINOPHILS ABSOLUTE COUNT 0.15 K/ L 0.04-0.36 (BEAKER) (test code = 416) BASOPHILS ABSOLUTE COUNT (BEAKER) 0.05 K/ L 0.01-0.08 (test code = 417) IMMATURE GRANULOCYTES-RELATIVE 4 % 0-1 H PERCENT (BEAKER) (test code = 2801) TACROLIMUS [id number] 13:07:00 Test Item Value Reference Range Interpretation Comments TACROLIMUS BLOOD 7.0 ng/mL 10.0-20.0 L Test perfor med on Jaffe (BEAKER) (test code Architec t Immunoassay = 657) system with Chemiluminescen t Microparticle I mmunoassay (CMIA) technolo gy. [place] Tester ID - JAMIE MURINALYSIS W/ REFLEX URINE [id number] 12:40:00 Test Item Value Reference Range Interpretation Comments COLOR (BEAKER) (test code = 470) Yellow CLARITY (BEAKER) (test code = 469) Clear SPECIFIC GRAVITY UA (BEAKER) (test 1.016 1.001-1.035 code = 468) PH UA (BEAKER) (test code = 467) 6.5 5.0-8.0 PROTEIN UA (BEAKER) (test code = 300 mg/dL Negative A 464) GLUCOSE UA (BEAKER) (test code = 200 mg/dL Negative A 365) KETONES UA (BEAKER) (test code = Negative Negative 371) BILIRUBIN UA (BEAKER) (test code = Negative Negative 462) BLOOD UA (BEAKER) (test code = 461) Negative Negative NITRITE UA (BEAKER) (test code = Negative Negative 465) LEUKOCYTE ESTERASE UA (BEAKER) Negative Negative (test code = 466) UROBILINOGEN UA (BEAKER) (test code 0.2 mg/dL 0.2-1.0 = 463) RBC UA (BEAKER) (test code = 519) < /HPF WBC UA (BEAKER) (test code = 520) 1 /HPF BACTERIA (BEAKER) (test code = 517) Few SQUAMOUS EPITHELIAL (BEAKER) (test 3 /HPF code = 516) HYALINE CASTS (BEAKER) (test code = 1 /LPF 514) SOURCE(BEAKER) (test code = 2795) Brinell Tester ID - [auto]Brinell Tester ID - [id number] 11:05:00 Test Item Value Reference Range Interpretation Comments PHOSPHORUS (BEAKER) (test code = 3.0 mg/dL 2.3-4.7 604) Brinell Tester ID - CAROLINA FCOMPREHENSIVE METABOLIC [id number] 11:05:00 Test Item Value Reference Range Interpretation Comments TOTAL PROTEIN 7.9 gm/dL 6.0-8.3 (BEAKER) (test code = 770) ALBUMIN (BEAKER) 4.4 g/dL 3.5-5.0 (test code = 1145) ALKALINE PHOSPHATASE 136 U/L 40-150 (BEAKER) (test code = 346) BILIRUBIN TOTAL 0.5 mg/dL 0.2-1.2 (BEAKER) (test code = 377) SODIUM (BEAKER) (test 136 meq/L 136-145 code = 381) POTASSIUM (BEAKER) 4.2 meq/L 3.5-5.1 (test code = 379) CHLORIDE (BEAKER) 102 meq/L 98-107 (test code = 382) CO2 (BEAKER) (test 22 meq/L 22-29 code = 355) BLOOD UREA NITROGEN 19 mg/dL 7-21 (BEAKER) (test code = 354) CREATININE (BEAKER) 1.25 mg/dL 0.57-1.25 (test code = 358) GLUCOSE RANDOM 212 mg/dL 70-105 H (BEAKER) (test code = 652) CALCIUM (BEAKER) 10.4 mg/dL 8.4-10.2 H (test code = 697) AST (SGOT) (BEAKER) 37 U/L 5-34 H (test code = 353) ALT (SGPT) (BEAKER) 57 U/L 6-55 H (test code = 347) EGFR (BEAKER) (test 45 mL/min/1.73 ESTIMA BRII GFR IS code = 1092) sq m NOT ACCURATE CREATININE CLEARANCE IN PREDICTING GLOMERULAR FILTRATION RATE . ESTIMATED GFR I S NOT APPLICABLE FOR DIALYSIS PATIEN TS. Brinell Tester ID - NABEEL FSpecimen slightly lipemicCBC W/PLT COUNT & AUTO [id number] 10:44:00 Test Item Value Reference Range Interpretation Comments WHITE BLOOD CELL COUNT (BEAKER) 8.9 K/ L 3.5-10.5 (test code = 775) RED BLOOD CELL COUNT (BEAKER) 3.90 M/ L 3.93-5.22 L (test code = 761) HEMOGLOBIN (BEAKER) (test code = 12.8 GM/DL 11.2-15.7 410) HEMATOCRIT (BEAKER) (test code = 39.1 % 34.1-44.9 411) MEAN CORPUSCULAR VOLUME (BEAKER) 100.3 fL 79.4-94.8 H (test code = 753) MEAN CORPUSCULAR HEMOGLOBIN 32.8 pg 25.6-32.2 H (BEAKER) (test code = 751) MEAN CORPUSCULAR HEMOGLOBIN CONC 32.7 GM/DL 32.2-35.5 (BEAKER) (test code = 752) RED CELL DISTRIBUTION WIDTH 12.7 % 11.7-14.4 (BEAKER) (test code = 412) PLATELET COUNT (BEAKER) (test 274 K/CU MM 150-450 code = 756) MEAN PLATELET VOLUME (BEAKER) 10.1 fL 9.4-12.3 (test code = 754) NUCLEATED RED BLOOD CELLS 0 /100 WBC 0-0 (BEAKER) (test code = 413) NEUTROPHILS RELATIVE PERCENT 83 % (BEAKER) (test code = 429) LYMPHOCYTES RELATIVE PERCENT 8 % (BEAKER) (test code = 430) MONOCYTES RELATIVE PERCENT 4 % (BEAKER) (test code = 431) EOSINOPHILS RELATIVE PERCENT 2 % (BEAKER) (test code = 432) BASOPHILS RELATIVE PERCENT 1 % (BEAKER) (test code = 437) NEUTROPHILS ABSOLUTE COUNT 7.38 K/ L 1.56-6.13 H (BEAKER) (test code = 670) LYMPHOCYTES ABSOLUTE COUNT 0.72 K/ L 1.18-3.74 L (BEAKER) (test code = 414) MONOCYTES ABSOLUTE COUNT (BEAKER) 0.38 K/ L 0.24-0.36 H (test code = 415) EOSINOPHILS ABSOLUTE COUNT 0.20 K/ L 0.04-0.36 (BEAKER) (test code = 416) BASOPHILS ABSOLUTE COUNT (BEAKER) 0.05 K/ L 0.01-0.08 (test code = 417) IMMATURE GRANULOCYTES-RELATIVE 2 % 0-1 H PERCENT (BEAKER) (test code = 2801) PROTEIN, RANDOM [id number] 10:42:00 Test Item Value Reference Range Interpretation Comments PROTEIN, URINE (BEAKER) (test code 285 mg/dL 0-14 H = 1569) Brinell Tester ID - NABEEL FCREATININE, RANDOM [id number] 10:22:00 Test Item Value Reference Range Interpretation Comments CREATININE URINE (BEAKER) (test 85.3 mg/dL code = 375) Reference Range: No NormalsOperator ID - NABEEL FAITHG, REMOVAL OF TUNNELED CVC W/O [id number] 11:36:00Dialysis 05/23REMOVE CATHETERReason for Exam:- >PLEASE REMOVE CATHETER, INFUSIONS COMPLETE [facility] 1970 Sex: FFINAL REPORT Tunneled Dialysis Catheter Removal Histo ry: No longer requiring dialysis access Modality: None. Sedation: None System Administrator: Aguilar Morales MD. Maintenance Supervisor Mechanical: Archana Armstrong MD. Approach: indwelling R IJ catheter Estimated blood loss: < 5 cc. Specimen: None. Technique: The procedure including risks and benefits were explained to the patient, who expressed understanding. After informed written consent was obtained, the patient's right region was prepped and draped in the usual sterile fashion. The skin was anesthetized with lidocaine. The tunneled dialysis catheter was then removed in total with blunt dissection and gentle traction. The skin entry site was then dressed with sterile gauze and Tegaderm. The patient tolerated the procedure well. Impression: Successful, uncomplicated removal of a tunneled right dialysis catheter. Signed: Aguilar MoralesMDReport Verified Date/Time: 07/24/2020 11:36:12 Reading Location: [address] Body Reading Room BK VIRUS PCR, [id number] 11:30:00 Test Item Value Reference Range Interpretation Comments BK VIRUS, PLASMA, POS See sc anned report. (BEAKER) (test code = 1820) BK VIRUS, PLASMA, NEG See sc anned report. (BEAKER) (test code = 2145) CBC W/PLT COUNT & AUTO [id number] 09:32:00 Test Item Value Reference Range Interpretation Comments WHITE BLOOD CELL COUNT (BEAKER) 9.2 K/ L 3.5-10.5 (test code = 775) RED BLOOD CELL COUNT (BEAKER) 3.69 M/ L 3.93-5.22 L (test code = 761) HEMOGLOBIN (BEAKER) (test code = 12.2 GM/DL 11.2-15.7 410) HEMATOCRIT (BEAKER) (test code = 38.0 % 34.1-44.9 411) MEAN CORPUSCULAR VOLUME (BEAKER) 103.0 fL 79.4-94.8 H (test code = 753) MEAN CORPUSCULAR HEMOGLOBIN 33.1 pg 25.6-32.2 H (BEAKER) (test code = 751) MEAN CORPUSCULAR HEMOGLOBIN CONC 32.1 GM/DL 32.2-35.5 L (BEAKER) (test code = 752) RED CELL DISTRIBUTION WIDTH 12.7 % 11.7-14.4 (BEAKER) (test code = 412) PLATELET COUNT (BEAKER) (test 276 K/CU MM 150-450 code = 756) MEAN PLATELET VOLUME (BEAKER) 9.6 fL 9.4-12.3 (test code = 754) NUCLEATED RED BLOOD CELLS 0 /100 WBC 0-0 (BEAKER) (test code = 413) NEUTROPHILS RELATIVE PERCENT 77 % (BEAKER) (test code = 429) LYMPHOCYTES RELATIVE PERCENT 8 % (BEAKER) (test code = 430) MONOCYTES RELATIVE PERCENT 5 % (BEAKER) (test code = 431) EOSINOPHILS RELATIVE PERCENT 4 % (BEAKER) (test code = 432) BASOPHILS RELATIVE PERCENT 1 % (BEAKER) (test code = 437) NEUTROPHILS ABSOLUTE COUNT 7.05 K/ L 1.56-6.13 H (BEAKER) (test code = 670) LYMPHOCYTES ABSOLUTE COUNT 0.75 K/ L 1.18-3.74 L (BEAKER) (test code = 414) MONOCYTES ABSOLUTE COUNT (BEAKER) 0.49 K/ L 0.24-0.36 H (test code = 415) EOSINOPHILS ABSOLUTE COUNT 0.37 K/ L 0.04-0.36 H (BEAKER) (test code = 416) BASOPHILS ABSOLUTE COUNT (BEAKER) 0.06 K/ L 0.01-0.08 (test code = 417) IMMATURE GRANULOCYTES-RELATIVE 5 % 0-1 H PERCENT (BEAKER) (test code = 2801) [id number] 09:28:00 Test Item Value Reference Range Interpretation Comments PARTIAL THROMBOPLASTIN TIME 24.0 seconds 22.5-36.0 (BEAKER) (test code = 760) PROTHROMBIN [id number] 09:27:00 Test Item Value Reference Range Interpretation Comments PROTIME (BEAKER) 12.4 seconds 11.9-14.2 (test code = 759) INR (BEAKER) (test 0.95 See_Comment [Automat ed message] code = 370) The system [employer] generated this result transmitted ref erence range: <=5.90. The reference range was not used to int erpret this result as normal/abnormal . Effective 10/07/2018: PT Reference Range ChangeNew: 11.9-14.2 Previous: 11.7- 14.7RECOMMENDED COUMADIN/WARFARIN INR THERAPY RANGESSTANDARD DOSE: 2.0-3.0 Includes: PROPHYLAXIS for venous thrombosis, systemic embolization; TREATMENT for venous thrombosis and/or pulmonary embolus.HIGH RISK: Target INR is2.5-3.5 for patients wiht mechanical heart valves.TACROLIMUS [id number] 11:33:00 Test Item Value Reference Range Interpretation Comments TACROLIMUS BLOOD 5.9 ng/mL 10.0-20.0 L Test perfor med on Jaffe (BEAKER) (test code Architec t Immunoassay = 657) system with Chemiluminescen t Microparticle I mmunoassay (CMIA) technolo gy. Brinell Tester ID - EMERSONCALCIUM, [id number] 09:37:00 Test Item Value Reference Range Interpretation Comments CALCIUM IONIZED (BEAKER) (test 1.26 mmol/L 1.12-1.27 code = 698) PH, BLOOD (BEAKER) (test code = 7.23 1810) Range 1.12 - 1.27BASIC METABOLIC [id number] 08:25:00 Test Item Value Reference Range Interpretation Comments SODIUM (BEAKER) 141 meq/L 136-145 (test code = 381) POTASSIUM (BEAKER) 4.3 meq/L 3.5-5.1 (test code = 379) CHLORIDE (BEAKER) 114 meq/L 98-107 H (test code = 382) CO2 (BEAKER) (test 17 meq/L 22-29 L code = 355) BLOOD UREA NITROGEN 14 mg/dL 7-21 (BEAKER) (test code = 354) CREATININE (BEAKER) 1.00 mg/dL 0.57-1.25 (test code = 358) GLUCOSE RANDOM 260 mg/dL 70-105 H (BEAKER) (test code = 652) CALCIUM (BEAKER) 8.2 mg/dL 8.4-10.2 L (test code = 697) EGFR (BEAKER) (test 59 mL/min/1.73 ESTIMA BRII GFR IS code = 1092) sq m NOT ACCURATE CREATININE CLEARANCE IN PREDICTING GLOMERULAR FILTRATION RATE . ESTIMATED GFR I S NOT APPLICABLE FOR DIALYSIS PATIEN TS. Brinell Tester ID - BSBASIC METABOLIC [id number] 14:35:00 Test Item Value Reference Range Interpretation Comments SODIUM (BEAKER) 138 meq/L 136-145 (test code = 381) POTASSIUM (BEAKER) 4.4 meq/L 3.5-5.1 (test code = 379) CHLORIDE (BEAKER) 114 meq/L 98-107 H (test code = 382) CO2 (BEAKER) (test 17 meq/L 22-29 L code = 355) BLOOD UREA NITROGEN 12 mg/dL 7-21 (BEAKER) (test code = 354) CREATININE (BEAKER) 1.02 mg/dL 0.57-1.25 (test code = 358) GLUCOSE RANDOM 196 mg/dL 70-105 H (BEAKER) (test code = 652) CALCIUM (BEAKER) 9.0 mg/dL 8.4-10.2 (test code = 697) EGFR (BEAKER) (test 57 mL/min/1.73 ESTIMA BRII GFR IS code = 1092) sq m NOT ACCURATE CREATININE CLEARANCE IN PREDICTING GLOMERULAR FILTRATION RATE . ESTIMATED GFR I S NOT APPLICABLE FOR DIALYSIS PATIEN TS. Brinell Tester ID - PIAYA LCALCIUM, [id number] 10:07:00 Test Item Value Reference Range Interpretation Comments CALCIUM IONIZED (BEAKER) (test 1.25 mmol/L 1.12-1.27 code = 698) PH, BLOOD (BEAKER) (test code = 7.23 1810) Range 1.12 - 1.27CBC (HEMOGRAM ONLY)2020-07-14 13:41:00 Test Item Value Reference Range Interpretation Comments WHITE BLOOD CELL COUNT (BEAKER) 13.4 K/ L 3.5-10.5 H (test code = 775) RED BLOOD CELL COUNT (BEAKER) 3.55 M/ L 3.93-5.22 L (test code = 761) HEMOGLOBIN (BEAKER) (test code = 12.0 GM/DL 11.2-15.7 410) HEMATOCRIT (BEAKER) (test code = 37.8 % 34.1-44.9 411) MEAN CORPUSCULAR VOLUME (BEAKER) 106.5 fL 79.4-94.8 H (test code = 753) MEAN CORPUSCULAR HEMOGLOBIN 33.8 pg 25.6-32.2 H (BEAKER) (test code = 751) MEAN CORPUSCULAR HEMOGLOBIN CONC 31.7 GM/DL 32.2-35.5 L (BEAKER) (test code = 752) RED CELL DISTRIBUTION WIDTH 13.2 % 11.7-14.4 (BEAKER) (test code = 412) PLATELET COUNT (BEAKER) (test 202 K/CU MM 150-450 code = 756) MEAN PLATELET VOLUME (BEAKER) 9.6 fL 9.4-12.3 (test code = 754) NUCLEATED RED BLOOD CELLS 0 /100 WBC 0-0 (BEAKER) (test code = 413) CALCIUM, [id number] 13:14:00 Test Item Value Reference Range Interpretation Comments CALCIUM IONIZED (BEAKER) (test 1.26 mmol/L 1.12-1.27 code = 698) PH, BLOOD (BEAKER) (test code = 7.25 1810) Range 1.12 - 1.27SARS-COV2/RT-PCR ([facility])2020-07-12 21:30:00 Test Item Value Reference Range Interpretation Comments SARS-COV2/RT-PCR (test Negative Not Detected, Negative, code = 0172813) See external report for linked test SARS-COV-2 PERFORMING LAB [facility] (test code = 2791208) Negative result for this test determines that SARS-CoV-2 RNA was not present in the specimen above the Limit of Detection (LOD). However, Negative results do not preclude SARS-CoV-2 infection and should not be used as the sole basis for treatment or patient management decisions. Negative results mustbe combined with clinical observations, patient history, and epidemiological information. A false negative result may occur if a specimen is improperly collected, transported or handled. A false negative result should be considered if patient's recent exposures or clinical presentation indicate that COVID-19 (SARS-CoV-2) is likely and diagnostic tests for other causes of illness are negative. Re-testing should be considered in cases of suspected false negatives.The limit of detection for this assay is 800 copies/mL.This SARS CoV-2 test is a real-time RT-PCR test intended for the qualitative detection of nucleic acid from SARS-CoV-2 in a nasopharyngeal swab specimen collected from individuals susp ected of COVID-19 by their healthcare provider.This test has not been Food and Drug Administration (FDA) cleared or approved. This is a modified version of an approved Emergency Use Authorization (EUA) and is in the process of review by the FDA. Once authorized by the FDA, the issued EUA will be effective until the declaration that circumstances exist justifying the authorization of the emergency use of in vitro diagnostic tests for detection and/or diagnosis of COVID-19 is terminated under Section 564(b)(2) of the Act or the EUA is revoked under Section 564(g) of the Act.Fact Sheet for Healthcare Providers:https://www.[employer]/sites/default/files/product/documents/Fact_Alecia barkleyr_RA_Anuxgcsaj_Pajy_BBAL-CfR-4.pdfFact Sheet for Healthcare Patients:https://www.[employer]/sites/default/files/product/ documents/Gllh_Bxqiu_Zatnxsvv_Zglv_MFXS-QbT-2.pdfPerforming Laboratory:[facility], [place] [address]MTTPQUT, IONIZED 2020-07-12 14:55:00 Test Item Value Reference Range Interpretation Comments CALCIUM IONIZED (BEAKER) (test 1.25 mmol/L 1.12-1.27 code = 698) PH, BLOOD (BEAKER) (test code = 7.24 1810) Range 1.12 - 1.27ANG, TUNNELED CATHETER [id number] 10:17:00Dialysis 05/23Reason for Central Line/PICC?->Need for hemodialysis accessReason for exam:->requires TPE for recurrent fsgs [facility] 1970 Sex: FFINAL REPORT PROCEDURE: Tunneled dialysis catheter placement Pro cedural PersonnelAttending physician(s): Willie Parisi physician(s): NoneResident physician(s): NoneAdvanced practice provider(s): None Pre-procedure diagnosis: FSGSPost-procedure diagnosis: SameIndication (QCDR): Performance of hemodialysisAdditional clinical history: None Complications: No immediate complications. IMPRESSION: Insertion of right-sided tunneled dialysis catheter, with tip in the expected location of the right atrium. Plan: The catheter may be used immediately. PROCEDURE SUMMARY:- Venous access with ultrasound guidance- Tunneled dialysis catheter insertion with fluoroscopic guidance- Additional procedure(s): None PROCEDURE DETAILS: Pre- procedureConsent: Informed consent for the procedure including risks, benefits and alternatives was obtained and time-out was performed prior to the procedure.Preparation (MIPS): The site was prepared and draped using all elements of maximal sterile barrier technique including sterile gloves, sterile gown, cap, mask, large sterile sheet, sterile ultrasound probe cover, hand hyg iene and cutaneous antisepsis with 2% chlorhexidine. Medical reason for site preparation exception (MIPS): Not applicable Anesthesia/sedationLevel of anesthesia/sedation: Moderate sedation (conscious sedation) 1mg Versed 50mcg fentanylAnesthesia/sedation administered by: Independent trained observer under attending supervision with continuous monitoring of the patient\\X2019\\s level of consciousness and physiologic statusTotal intra-service sedation time (minutes): 30 AccessLocal anesthesia was administered. The vessel was sonographically evaluated and determined to be patent. Real time ultrasound was used to visualize needle entry into the vessel and a permanent image was stored.Vein accessed (QCDR): Internal jugular veinInternal jugular vein patency (QCDR): Patent or otherwise accessible on at least one sideAccess technique: Micropuncture set with 21 gauge needle Catheter placementAn incision was made near the venous access site and the catheter was tunneled subcutaneously to the venous accesssite. The catheter was advanced via a peel-away sheath into the vein under fluoroscopic guidance. Catheter tip location was fluoroscopically verified and a permanent image was stored.Catheter placed: Duraflow 2Catheter cuff-to-tip length (cm): 19Catheter flush: Heparin (1000 units/mL) ClosureA steriledressing was applied.Access site closure technique: Tissue adhesiveCatheter securement technique: Non-absorbable suture ContrastContrast agent: NoneContrast volume (mL): NA Radiation DoseFluoroscopy time (minutes): 0.2 Reference air kerma (mGy): 3.4 Additional DetailsAdditional description of procedure: NoneEquipment details: NoneSpecimens removed: NoneEstimated blood loss (mL): Less than 10Standardized report: [email or web address]_v3 AttestationSigner name: César EtienneFidel attest that I was present for the entire procedure. I reviewed the stored images and agree with the report as written. Si gned: César Etienne MDReport Verified Date/Time: 07/12/2020 10:17:51 Reading Location: [place] [address] Angio Body Reading Room CALCIUM, [id number] 17:23:00 Test Item Value Reference Range Interpretation Comments CALCIUM IONIZED (BEAKER) (test 1.24 mmol/L 1.12-1.27 code = 698) PH, BLOOD (BEAKER) (test code = 7.25 1810) Range 1.12 - 1.27CBC (HEMOGRAM ONLY)2020-07-10 17:22:00 Test Item Value Reference Range Interpretation Comments WHITE BLOOD CELL COUNT (BEAKER) 9.7 K/ L 3.5-10.5 (test code = 775) RED BLOOD CELL COUNT (BEAKER) 3.67 M/ L 3.93-5.22 L (test code = 761) HEMOGLOBIN (BEAKER) (test code = 12.3 GM/DL 11.2-15.7 410) HEMATOCRIT (BEAKER) (test code = 36.7 % 34.1-44.9 411) MEAN CORPUSCULAR VOLUME (BEAKER) 100.0 fL 79.4-94.8 H (test code = 753) MEAN CORPUSCULAR HEMOGLOBIN 33.5 pg 25.6-32.2 H (BEAKER) (test code = 751) MEAN CORPUSCULAR HEMOGLOBIN CONC 33.5 GM/DL 32.2-35.5 (BEAKER) (test code = 752) RED CELL DISTRIBUTION WIDTH 13.2 % 11.7-14.4 (BEAKER) (test code = 412) PLATELET COUNT (BEAKER) (test 184 K/CU MM 150-450 code = 756) MEAN PLATELET VOLUME (BEAKER) 9.9 fL 9.4-12.3 (test code = 754) NUCLEATED RED BLOOD CELLS 0 /100 WBC 0-0 (BEAKER) (test code = 413) CMV PCR, [id number] 11:37:00 Test Item Value Reference Range Interpretation Comments CMV VIRAL LOAD - POSITIVE Se e scanned report. (BEAKER) (test code = 1557) CMV VIRAL LOAD - NEGATIVE Se e scanned report. (BEAKER) (test code = 2558) EBV VIRAL [id number] 11:37:00 Test Item Value Reference Range Interpretation Comments EBV VIRAL LOAD - POSITIVE Se e scanned report. (BEAKER) (test code = 2291) EBV VIRAL LOAD - NEGATIVE Se e scanned report. (BEAKER) (test code = 2559) POCT-GLUCOSE [id number] 12:41:00 Test Item Value Reference Range Interpretation Comments POC-GLUCOSE METER 169 mg/dL 70-110 H : TESTED A T [facility] 6720 (BEAKER) (test code = [facility], 1538) [id number]: Brinell Tester/Techni martita ID = [id number] for SA DANI TAMAYO TACROLIMUS [id number] 11:15:00 Test Item Value Reference Range Interpretation Comments TACROLIMUS BLOOD 8.6 ng/mL 10.0-20.0 L Test perfor med on Jaffe (BEAKER) (test code Architec t Immunoassay = 657) system with Chemiluminescen t Microparticle I mmunoassay (CMIA) jacquelin marie Brinell Tester ID - JAMIE MPOCT-GLUCOSE [id number] 08:56:00 Test Item Value Reference Range Interpretation Comments POC-GLUCOSE METER 177 mg/dL 70-110 H : TESTED A T [facility] 6720 (BEAKER) (test code = [facility] MaxxAthlete [facility], 1538) [id number]: Brinell Tester/Techni martita ID = [id number] for SA NTOS, DANI BASIC METABOLIC [id number] 07:22:00 Test Item Value Reference Range Interpretation Comments SODIUM (BEAKER) 136 meq/L 136-145 (test code = 381) POTASSIUM (BEAKER) 4.3 meq/L 3.5-5.1 (test code = 379) CHLORIDE (BEAKER) 113 meq/L 98-107 H (test code = 382) CO2 (BEAKER) (test 15 meq/L 22-29 L code = 355) BLOOD UREA NITROGEN 13 mg/dL 7-21 (BEAKER) (test code = 354) CREATININE (BEAKER) 1.19 mg/dL 0.57-1.25 (test code = 358) GLUCOSE RANDOM 197 mg/dL 70-105 H (BEAKER) (test code = 652) CALCIUM (BEAKER) 9.1 mg/dL 8.4-10.2 (test code = 697) EGFR (BEAKER) (test 48 mL/min/1.73 ESTIMA BRII GFR IS code = 1092) sq m NOT ACCURATE CREATININE CLEARANCE IN PREDICTING GLOMERULAR FILTRATION RATE . ESTIMATED GFR I S NOT APPLICABLE FOR DIALYSIS PATIEN TS. Brinell Tester ID - WILI [id number] 07:22:00 Test Item Value Reference Range Interpretation Comments MAGNESIUM (BEAKER) (test code = 1.6 mg/dL 1.6-2.6 627) Brinell Tester ID - WILI MCBC W/PLT COUNT & AUTO [id number] 07:02:00 Test Item Value Reference Range Interpretation Comments WHITE BLOOD CELL COUNT (BEAKER) 8.1 K/ L 3.5-10.5 (test code = 775) RED BLOOD CELL COUNT (BEAKER) 3.77 M/ L 3.93-5.22 L (test code = 761) HEMOGLOBIN (BEAKER) (test code = 12.5 GM/DL 11.2-15.7 410) HEMATOCRIT (BEAKER) (test code = 38.0 % 34.1-44.9 411) MEAN CORPUSCULAR VOLUME (BEAKER) 100.8 fL 79.4-94.8 H (test code = 753) MEAN CORPUSCULAR HEMOGLOBIN 33.2 pg 25.6-32.2 H (BEAKER) (test code = 751) MEAN CORPUSCULAR HEMOGLOBIN CONC 32.9 GM/DL 32.2-35.5 (BEAKER) (test code = 752) RED CELL DISTRIBUTION WIDTH 13.3 % 11.7-14.4 (BEAKER) (test code = 412) PLATELET COUNT (BEAKER) (test 172 K/CU MM 150-450 code = 756) MEAN PLATELET VOLUME (BEAKER) 10.1 fL 9.4-12.3 (test code = 754) NUCLEATED RED BLOOD CELLS 0 /100 WBC 0-0 (BEAKER) (test code = 413) NEUTROPHILS RELATIVE PERCENT 74 % (BEAKER) (test code = 429) LYMPHOCYTES RELATIVE PERCENT 13 % (BEAKER) (test code = 430) MONOCYTES RELATIVE PERCENT 8 % (BEAKER) (test code = 431) EOSINOPHILS RELATIVE PERCENT 2 % (BEAKER) (test code = 432) BASOPHILS RELATIVE PERCENT 1 % (BEAKER) (test code = 437) NEUTROPHILS ABSOLUTE COUNT 6.02 K/ L 1.56-6.13 (BEAKER) (test code = 670) LYMPHOCYTES ABSOLUTE COUNT 1.03 K/ L 1.18-3.74 L (BEAKER) (test code = 414) MONOCYTES ABSOLUTE COUNT (BEAKER) 0.63 K/ L 0.24-0.36 H (test code = 415) EOSINOPHILS ABSOLUTE COUNT 0.16 K/ L 0.04-0.36 (BEAKER) (test code = 416) BASOPHILS ABSOLUTE COUNT (BEAKER) 0.05 K/ L 0.01-0.08 (test code = 417) IMMATURE GRANULOCYTES-RELATIVE 3 % 0-1 H PERCENT (BEAKER) (test code = 2801) POCT-GLUCOSE [id number] 21:41:00 Test Item Value Reference Range Interpretation Comments POC-GLUCOSE METER 193 mg/dL 70-110 H : TESTED A T [facility] 6720 (investUPAKER) (test code = [facility], 1538) [id number]: [place] Tester/Techni martita ID = [id number] for CA RBAJAL, BERKLEY POCT-GLUCOSE [id number] 18:00:00 Test Item Value Reference Range Interpretation Comments POC-GLUCOSE METER 162 mg/dL 70-110 H : [facility] A T [facility] 67[facility] (test code = [facility], 1538) [id number]: [place] Tester/Techni martita ID = [id number] for SA DREWDANI ESPINOSA TACROLIMUS [id number] 13:19:00 Test Item Value Reference Range Interpretation Comments TACROLIMUS BLOOD 7.7 ng/mL 10.0-20.0 L Test perfor med on Jaffe (BEAKER) (test code Architec t Immunoassay = 657) system with Chemiluminescen t Microparticle I mmunoassay (CMIA) technrene gy. [place] Tester ID - JAMIE MPOCT-GLUCOSE [id number] 13:00:00 Test Item Value Reference Range Interpretation Comments POC-GLUCOSE METER 206 mg/dL 70-110 H : TESTED A T [facility] (BEAKER) (test code = [facility] [place], 1538) [id number]: [place]ell Tester/Techni martita ID = [id number] for SA NTOS, DANI CALCIUM, [id number] 10:33:00 Test Item Value Reference Range Interpretation Comments CALCIUM IONIZED (BEAKER) (test 1.32 mmol/L 1.12-1.27 H code = 698) PH, BLOOD (BEAKER) (test code = 7.20 1810) Range 1.12 - 1.27BASIC METABOLIC [id number] 07:46:00 Test Item Value Reference Range Interpretation Comments SODIUM (BEAKER) 137 meq/L 136-145 (test code = 381) POTASSIUM (BEAKER) 4.5 meq/L 3.5-5.1 (test code = 379) CHLORIDE (BEAKER) 113 meq/L 98-107 H (test code = 382) CO2 (BEAKER) (test 16 meq/L 22-29 L code = 355) BLOOD UREA NITROGEN 14 mg/dL 7-21 (BEAKER) (test code = 354) CREATININE (BEAKER) 1.13 mg/dL 0.57-1.25 (test code = 358) GLUCOSE RANDOM 185 mg/dL 70-105 H (BEAKER) (test code = 652) CALCIUM (BEAKER) 9.1 mg/dL 8.4-10.2 (test code = 697) EGFR (BEAKER) (test 51 mL/min/1.73 ESTIMA BRII GFR IS code = 1092) sq m NOT ACCURATE CREATININE CLEARANCE IN PREDICTING GLOMERULAR FILTRATION RATE . ESTIMATED GFR I S NOT APPLICABLE FOR DIALYSIS PATIEN TS. Brinell Tester ID - NAYAN [id number] 07:46:00 Test Item Value Reference Range Interpretation Comments MAGNESIUM (BEAKER) (test code = 1.5 mg/dL 1.6-2.6 L 627) Brinell Tester ID - NAYAN CCBC W/PLT COUNT & AUTO [id number] 07:20:00 Test Item Value Reference Range Interpretation Comments WHITE BLOOD CELL COUNT (BEAKER) 7.3 K/ L 3.5-10.5 (test code = 775) RED BLOOD CELL COUNT (BEAKER) 3.84 M/ L 3.93-5.22 L (test code = 761) HEMOGLOBIN (BEAKER) (test code = 12.7 GM/DL 11.2-15.7 410) HEMATOCRIT (BEAKER) (test code = 38.4 % 34.1-44.9 411) MEAN CORPUSCULAR VOLUME (BEAKER) 100.0 fL 79.4-94.8 H (test code = 753) MEAN CORPUSCULAR HEMOGLOBIN 33.1 pg 25.6-32.2 H (BEAKER) (test code = 751) MEAN CORPUSCULAR HEMOGLOBIN CONC 33.1 GM/DL 32.2-35.5 (BEAKER) (test code = 752) RED CELL DISTRIBUTION WIDTH 13.2 % 11.7-14.4 (BEAKER) (test code = 412) PLATELET COUNT (BEAKER) (test 203 K/CU MM 150-450 code = 756) MEAN PLATELET VOLUME (BEAKER) 10.0 fL 9.4-12.3 (test code = 754) NUCLEATED RED BLOOD CELLS 0 /100 WBC 0-0 (BEAKER) (test code = 413) NEUTROPHILS RELATIVE PERCENT 75 % (BEAKER) (test code = 429) LYMPHOCYTES RELATIVE PERCENT 11 % (BEAKER) (test code = 430) MONOCYTES RELATIVE PERCENT 8 % (BEAKER) (test code = 431) EOSINOPHILS RELATIVE PERCENT 2 % (BEAKER) (test code = 432) BASOPHILS RELATIVE PERCENT 1 % (BEAKER) (test code = 437) NEUTROPHILS ABSOLUTE COUNT 5.43 K/ L 1.56-6.13 (BEAKER) (test code = 670) LYMPHOCYTES ABSOLUTE COUNT 0.78 K/ L 1.18-3.74 L (BEAKER) (test code = 414) MONOCYTES ABSOLUTE COUNT (BEAKER) 0.60 K/ L 0.24-0.36 H (test code = 415) EOSINOPHILS ABSOLUTE COUNT 0.12 K/ L 0.04-0.36 (BEAKER) (test code = 416) BASOPHILS ABSOLUTE COUNT (BEAKER) 0.06 K/ L 0.01-0.08 (test code = 417) IMMATURE GRANULOCYTES-RELATIVE 4 % 0-1 H PERCENT (AKER) (test code = 2801) HEPATITIS C PCR, [id number] 20:07:00 Test Item Value Reference Range Interpretation Comments HCV RESULT COMPONENT HCV RNA not detected HCV RNA not detected (AKER) (test code = 2699) This test uses a Real-Time Polymerase Chain Reaction (RT-PCR) methodology and was performed using SUNDEEP Ampliprep/SUNDEEP TaqMan HCV test kit version 2.0 ([employer]).Reportable range for this assay is 15 - 100,000,000 IU per mL (1.18 - 8.00 Log IU/mL).This test uses a Real-Time Poly merase Chain Reaction (RT-PCR) methodology and was performed using SUNDEEP Ampliprep/SUNDEEP TaqMan HCV test kit version 2.0 ([employer]).Reportable range for this assay is 15 - 100,000,000 IU per mL (1.18 - 8.00 Log IU/mL).POCT-GLUCOSE [id number] 19:53:00 Test Item Value Reference Range Interpretation Comments POC-GLUCOSE METER 203 mg/dL 70-110 H : TESTED A T [facility] ([facility]) (test code = [facility], 153) [address]: Brinell Tester/Techni martita ID = [id number] for MAIDA SAMSON CALCIUM, [id number] 18:28:00 Test Item Value Reference Range Interpretation Comments CALCIUM IONIZED ([facility]) (test 1.30 mmol/L 1.12-1.27 H code = 698) PH, BLOOD ([facility]) (test code = 7.24 1810) Range 1.12 - 1.27POCT-GLUCOSE [id number] 12:32:00 Test Item Value Reference Range Interpretation Comments POC-GLUCOSE METER 163 mg/dL 70-110 H : TESTED A T [facility] ([facility]) (test code = [facility], 153) [id number]: Brinell Tester/Techni martita ID = [id number] for DANI AZFAR TACROLIMUS [id number] 09:35:00 Test Item Value Reference Range Interpretation Comments TACROLIMUS BLOOD 10.8 ng/mL 10.0-20.0 Test perfor med on Jaffe (BEAKER) (test code Architec t Immunoassay = 657) system with Chemiluminescen t Microparticle Immunoassay (CM IA) technology. Brinell Tester ID - AAÓSCAR-GLUCOSE [id number] 08:41:00 Test Item Value Reference Range Interpretation Comments POC-GLUCOSE METER 207 mg/dL 70-110 H : TESTED A T [facility] (BEAKER) (test code = [place], 1538) [address]: Brinell Tester/Techni martita ID = [id number] for DANI ZAFAR BASIC METABOLIC [id number] 05:21:00 Test Item Value Reference Range Interpretation Comments SODIUM (BEAKER) 137 meq/L 136-145 (test code = 381) POTASSIUM (BEAKER) 4.2 meq/L 3.5-5.1 (test code = 379) CHLORIDE (BEAKER) 110 meq/L 98-107 H (test code = 382) CO2 (BEAKER) (test 18 meq/L 22-29 L code = 355) BLOOD UREA NITROGEN 14 mg/dL 7-21 (BEAKER) (test code = 354) CREATININE (BEAKER) 0.98 mg/dL 0.57-1.25 (test code = 358) GLUCOSE RANDOM 180 mg/dL 70-105 H (BEAKER) (test code = 652) CALCIUM (BEAKER) 9.0 mg/dL 8.4-10.2 (test code = 697) EGFR (BEAKER) (test 60 mL/min/1.73 ESTIMA BRII GFR IS code = 1092) sq m NOT ACCURATE CREATININE CLEARANCE IN PREDICTING GLOMERULAR FILTRATION RATE . ESTIMATED GFR I S NOT APPLICABLE FOR DIALYSIS PATIEN TS. Brinell Tester ID - RICHELLE [id number] 05:21:00 Test Item Value Reference Range Interpretation Comments MAGNESIUM (BEAKER) (test code = 1.6 mg/dL 1.6-2.6 627) Brinell Tester ID - RICHELLE LCBC W/PLT COUNT & AUTO [id number] 05:14:00 Test Item Value Reference Range Interpretation Comments WHITE BLOOD CELL COUNT (BEAKER) 7.9 K/ L 3.5-10.5 (test code = 775) RED BLOOD CELL COUNT (BEAKER) 3.97 M/ L 3.93-5.22 (test code = 761) HEMOGLOBIN (BEAKER) (test code = 13.0 GM/DL 11.2-15.7 410) HEMATOCRIT (BEAKER) (test code = 39.8 % 34.1-44.9 411) MEAN CORPUSCULAR VOLUME (BEAKER) 100.3 fL 79.4-94.8 H (test code = 753) MEAN CORPUSCULAR HEMOGLOBIN 32.7 pg 25.6-32.2 H (BEAKER) (test code = 751) MEAN CORPUSCULAR HEMOGLOBIN CONC 32.7 GM/DL 32.2-35.5 (BEAKER) (test code = 752) RED CELL DISTRIBUTION WIDTH 13.0 % 11.7-14.4 (BEAKER) (test code = 412) PLATELET COUNT (BEAKER) (test 191 K/CU MM 150-450 code = 756) MEAN PLATELET VOLUME (BEAKER) 10.2 fL 9.4-12.3 (test code = 754) NUCLEATED RED BLOOD CELLS 0 /100 WBC 0-0 (BEAKER) (test code = 413) NEUTROPHILS RELATIVE PERCENT 79 % (BEAKER) (test code = 429) LYMPHOCYTES RELATIVE PERCENT 8 % (BEAKER) (test code = 430) MONOCYTES RELATIVE PERCENT 7 % (BEAKER) (test code = 431) EOSINOPHILS RELATIVE PERCENT 2 % (BEAKER) (test code = 432) BASOPHILS RELATIVE PERCENT 1 % (BEAKER) (test code = 437) NEUTROPHILS ABSOLUTE COUNT 6.25 K/ L 1.56-6.13 H (BEAKER) (test code = 670) LYMPHOCYTES ABSOLUTE COUNT 0.63 K/ L 1.18-3.74 L (BEAKER) (test code = 414) MONOCYTES ABSOLUTE COUNT (BEAKER) 0.55 K/ L 0.24-0.36 H (test code = 415) EOSINOPHILS ABSOLUTE COUNT 0.13 K/ L 0.04-0.36 (BEAKER) (test code = 416) BASOPHILS ABSOLUTE COUNT (BEAKER) 0.06 K/ L 0.01-0.08 (test code = 417) IMMATURE GRANULOCYTES-RELATIVE 3 % 0-1 H PERCENT (BEAKER) (test code = 2801) POCT-GLUCOSE [id number] 21:27:00 Test Item Value Reference Range Interpretation Comments POC-GLUCOSE METER 251 mg/dL 70-110 H : TESTED A T [facility] 6720 (BEAKER) (test code = [place], 1538) [id number]: Brinell Tester/Techni martita ID = [id number] for DEBORAH BOYKIN CALCIUM, [id number] 18:56:00 Test Item Value Reference Range Interpretation Comments CALCIUM IONIZED (BEAKER) (test 1.24 mmol/L 1.12-1.27 code = 698) PH, BLOOD (BEAKER) (test code = 7.27 1810) Range 1.12 - 1.27POCT-GLUCOSE [id number] 12:17:00 Test Item Value Reference Range Interpretation Comments POC-GLUCOSE METER 148 mg/dL 70-110 H : TESTED A T [facility] (BEAKER) (test code = GILDA Gates [facility], 1538) [address]: Brinell Tester/Techni martita ID = [id number] for RENE CORTEZ TACROLIMUS [id number] 09:09:00 Test Item Value Reference Range Interpretation Comments TACROLIMUS BLOOD 9.4 ng/mL 10.0-20.0 L Test perfor med on Jaffe (BEAKER) (test code Architec t Immunoassay = 657) system with Chemiluminescen t Microparticle I mmunoassay (CMIA) technolo gy. Brinell Tester ID - RMCBC W/PLT COUNT & AUTO [id number] 06:18:00 Test Item Value Reference Range Interpretation Comments WHITE BLOOD CELL COUNT (BEAKER) 7.2 K/ L 3.5-10.5 (test code = 775) RED BLOOD CELL COUNT (BEAKER) 3.56 M/ L 3.93-5.22 L (test code = 761) HEMOGLOBIN (BEAKER) (test code = 11.9 GM/DL 11.2-15.7 410) HEMATOCRIT (BEAKER) (test code = 35.3 % 34.1-44.9 411) MEAN CORPUSCULAR VOLUME (BEAKER) 99.2 fL 79.4-94.8 H (test code = 753) MEAN CORPUSCULAR HEMOGLOBIN 33.4 pg 25.6-32.2 H (BEAKER) (test code = 751) MEAN CORPUSCULAR HEMOGLOBIN CONC 33.7 GM/DL 32.2-35.5 (BEAKER) (test code = 752) RED CELL DISTRIBUTION WIDTH 12.8 % 11.7-14.4 (BEAKER) (test code = 412) PLATELET COUNT (BEAKER) (test 197 K/CU MM 150-450 code = 756) MEAN PLATELET VOLUME (BEAKER) 9.9 fL 9.4-12.3 (test code = 754) NUCLEATED RED BLOOD CELLS 0 /100 WBC 0-0 (BEAKER) (test code = 413) NEUTROPHILS RELATIVE PERCENT 82 % (BEAKER) (test code = 429) LYMPHOCYTES RELATIVE PERCENT 9 % (BEAKER) (test code = 430) MONOCYTES RELATIVE PERCENT 7 % (BEAKER) (test code = 431) EOSINOPHILS RELATIVE PERCENT 1 % (BEAKER) (test code = 432) BASOPHILS RELATIVE PERCENT 0 % (BEAKER) (test code = 437) NEUTROPHILS ABSOLUTE COUNT 5.88 K/ L 1.56-6.13 (BEAKER) (test code = 670) LYMPHOCYTES ABSOLUTE COUNT 0.61 K/ L 1.18-3.74 L (BEAKER) (test code = 414) MONOCYTES ABSOLUTE COUNT (BEAKER) 0.50 K/ L 0.24-0.36 H (test code = 415) EOSINOPHILS ABSOLUTE COUNT 0.08 K/ L 0.04-0.36 (BEAKER) (test code = 416) BASOPHILS ABSOLUTE COUNT (BEAKER) 0.03 K/ L 0.01-0.08 (test code = 417) IMMATURE GRANULOCYTES-RELATIVE 1 % 0-1 PERCENT (BEAKER) (test code = 2801) POCT-GLUCOSE [id number] 05:36:00 Test Item Value Reference Range Interpretation Comments POC-GLUCOSE METER 219 mg/dL 70-110 H : TESTED A T [facility] 67[facility] (BEAKER) (test [facility] = [facility], 1538) [address]: Brinell Tester/Techni martita ID = [id number] for DEBORAH BOYKIN [id number] 05:14:00 Test Item Value Reference Range Interpretation Comments MAGNESIUM (BEAKER) 1.9 mg/dL 1.6-2.6 Specimen moderately (test code = 627) hemolyzed Brinell Tester ID - PIAYA LBASIC METABOLIC [id number] 05:14:00 Test Item Value Reference Range Interpretation Comments SODIUM (BEAKER) 138 meq/L 136-145 (test code = 381) POTASSIUM (BEAKER) 4.9 meq/L 3.5-5.1 Specimen moderately (test code = 379) hemolyzed CHLORIDE (BEAKER) 108 meq/L 98-107 H (test code = 382) CO2 (BEAKER) (test 19 meq/L 22-29 L code = 355) BLOOD UREA NITROGEN 20 mg/dL 7-21 (BEAKER) (test code = 354) CREATININE (BEAKER) 1.16 mg/dL 0.57-1.25 Specimen moderately (test code = 358) hemolyzed GLUCOSE RANDOM 202 mg/dL 70-105 H (BEAKER) (test code = 652) CALCIUM (BEAKER) 9.2 mg/dL 8.4-10.2 (test code = 697) EGFR (BEAKER) (test 49 mL/min/1.73 ESTIMA BRII GFR IS code = 1092) sq m NOT ACCURATE CREATININE CLEARANCE IN PREDICTING GLOMERULAR FILTRATION RATE . ESTIMATED GFR I S NOT APPLICABLE FOR DIALYSIS PATIEN TS. Brinell Tester ID - PIAYA LCBC W/PLT COUNT & AUTO [id number] 04:52:00 Test Item Value Reference Range Interpretation Comments WHITE BLOOD CELL COUNT (BEAKER) 8.0 K/ L 3.5-10.5 (test code = 775) RED BLOOD CELL COUNT (BEAKER) 3.67 M/ L 3.93-5.22 L (test code = 761) HEMOGLOBIN (BEAKER) (test code = 12.2 GM/DL 11.2-15.7 410) HEMATOCRIT (BEAKER) (test code = 36.4 % 34.1-44.9 411) MEAN CORPUSCULAR VOLUME (BEAKER) 99.2 fL 79.4-94.8 H (test code = 753) MEAN CORPUSCULAR HEMOGLOBIN 33.2 pg 25.6-32.2 H (BEAKER) (test code = 751) MEAN CORPUSCULAR HEMOGLOBIN CONC 33.5 GM/DL 32.2-35.5 (BEAKER) (test code = 752) RED CELL DISTRIBUTION WIDTH 12.7 % 11.7-14.4 (BEAKER) (test code = 412) PLATELET COUNT (BEAKER) (test 233 K/CU MM 150-450 code = 756) MEAN PLATELET VOLUME (BEAKER) 10.1 fL 9.4-12.3 (test code = 754) NUCLEATED RED BLOOD CELLS 0 /100 WBC 0-0 (BEAKER) (test code = 413) NEUTROPHILS RELATIVE PERCENT 80 % (BEAKER) (test code = 429) LYMPHOCYTES RELATIVE PERCENT 9 % (BEAKER) (test code = 430) MONOCYTES RELATIVE PERCENT 8 % (BEAKER) (test code = 431) EOSINOPHILS RELATIVE PERCENT 2 % (BEAKER) (test code = 432) BASOPHILS RELATIVE PERCENT 1 % (BEAKER) (test code = 437) NEUTROPHILS ABSOLUTE COUNT 6.35 K/ L 1.56-6.13 H (BEAKER) (test code = 670) LYMPHOCYTES ABSOLUTE COUNT 0.72 K/ L 1.18-3.74 L (BEAKER) (test code = 414) MONOCYTES ABSOLUTE COUNT (BEAKER) 0.64 K/ L 0.24-0.36 H (test code = 415) EOSINOPHILS ABSOLUTE COUNT 0.13 K/ L 0.04-0.36 (BEAKER) (test code = 416) BASOPHILS ABSOLUTE COUNT (BEAKER) 0.04 K/ L 0.01-0.08 (test code = 417) IMMATURE GRANULOCYTES-RELATIVE 1 % 0-1 PERCENT (BEAKER) (test code = 2801) POCT-GLUCOSE [id number] 21:11:00 Test Item Value Reference Range Interpretation Comments POC-GLUCOSE METER 233 mg/dL 70-110 H : TESTED A T [facility] 6720 (BEAKER) (test code = GILDA Yajaira [facility], 1538) [address]: Brinell Tester/Techni martita ID = [id number] for UL DEBORAH BERGER U/S, TRANSPLANT, [id number] 20:40:00Dialysis 05/23Reason for exam:->s/p kidney [facility] : 1970 Sex: FFINAL REPORT U/S, TRANSPLANT, KIDNEY INDICATION: s/p kidney transplant COMPARISON: 02/02/2020 ultrasound TECHNIQUE: Real-time ultrasound examination of the transplanted kidney. Color and spectral Doppler imaging also obtained FINDINGS:Size: 13.4 x 7.3 x 6.5 cm. Echogenicity: Within normal limits.Hydronephrosis: Mild.Perinephric fluid: None. Vascular:PSV Venous:Iliac vein: 19 cm/s below the anastomosis, 37 cm/s above the anastomosis Anastomosis: 48 cm/s Main renal vein: 27 cm/s PSV Arterial: Iliac artery: 109 cm/s below the anastomosis, 97 cm/s above the anastomosis Anastomosis: 153 cm/s Main renal artery: 82 cm/s Resistive indices: Upper: 0.7Middle: 0.7 Lower: 0.7 Additional findings: None. IMPRESSION: 1. Mild hydronephrosis of the leftiliac fossa transplant kidney. 2. Patent vasculature with normal resistive indices. Signed: Catrachita Gilbert MDReport Verified Date/Time: 07/05/2020 20:40:49 POCT-GLUCOSE [id number] 19:53:00 Test Item Value Reference Range Interpretation Comments POC-GLUCOSE METER 144 mg/dL 70-110 H : TESTED A T [facility] 6720 (BEAKER) (test code = GILDA Gates [facility], 1538) [address]: Brinell Tester/Techni martita ID = [id number] for DAR DEBORAH BERGER BASIC METABOLIC [id number] 17:10:00 Test Item Value Reference Range Interpretation Comments SODIUM (BEAKER) 139 meq/L 136-145 (test code = 381) POTASSIUM (BEAKER) 4.3 meq/L 3.5-5.1 (test code = 379) CHLORIDE (BEAKER) 107 meq/L 98-107 (test code = 382) CO2 (BEAKER) (test 18 meq/L 22-29 L code = 355) BLOOD UREA NITROGEN 17 mg/dL 7-21 (BEAKER) (test code = 354) CREATININE (BEAKER) 1.11 mg/dL 0.57-1.25 (test code = 358) GLUCOSE RANDOM 156 mg/dL 70-105 H (BEAKER) (test code = 652) CALCIUM (BEAKER) 9.8 mg/dL 8.4-10.2 (test code = 697) EGFR (BEAKER) (test 52 mL/min/1.73 ESTIMA BRII GFR IS code = 1092) sq m NOT ACCURATE CREATININE CLEARANCE IN PREDICTING GLOMERULAR FILTRATION RATE . ESTIMATED GFR I S NOT APPLICABLE FOR DIALYSIS PATIEN TS. Brinell Tester ID - [id number] 17:10:00 Test Item Value Reference Range Interpretation Comments MAGNESIUM (BEAKER) (test code = 1.9 mg/dL 1.6-2.6 627) Brinell Tester ID - [id number] 17:10:00 Test Item Value Reference Range Interpretation Comments PHOSPHORUS (BEAKER) (test code = 3.4 mg/dL 2.3-4.7 604) Brinell Tester ID - bsPROTHROMBIN TIME/[id number] 16:25:00 Test Item Value Reference Range Interpretation Comments PROTIME (BEAKER) 12.4 seconds 11.9-14.2 (test code = 759) INR (BEAKER) (test 0.96 See_Comment [Automat ed message] code = 370) The system Etherstack generated this result transmitted ref erence range: <=5.90. The reference range was not used to int erpret this result as normal/abnormal . Effective 10/07/2018: PT Reference Range ChangeNew: 11.9-14.2 Previous: 11.7- 14.7RECOMMENDED COUMADIN/WARFARIN INR THERAPY RANGESSTANDARD DOSE: 2.0-3.0 Includes: PROPHYLAXIS for venous thrombosis, systemic embolization; TREATMENT for venous thrombosis and/or pulmonary embolus.HIGH RISK: Target INR is2.5-3.5 for patients wiht mechanical heart valves.CREATININE, RANDOM [id number] 11:49:00 Test Item Value Reference Range Interpretation Comments CREATININE URINE (BEAKER) (test 47.2 mg/dL code = 375) Reference Range: No NormalsOperator ID - EMERSONPROTEIN, RANDOM [id number] 11:49:00 Test Item Value Reference Range Interpretation Comments PROTEIN, URINE (BEAKER) (test code 202 mg/dL 0-14 H = 1569) Brinell Tester ID - EMERSONOperator ID - EMERSONTACROLIMUS [id number] 11:30:00 Test Item Value Reference Range Interpretation Comments TACROLIMUS BLOOD 8.6 ng/mL 10.0-20.0 L Test perfor med on Jaffe (BEAKER) (test code Architec t Immunoassay = 657) system with Chemiluminescen t Microparticle I mmunoassay (CMIA) technolo gy. Brinell Tester ID - AAHAMIDURINALYSIS W/ REFLEX URINE [id number] 10:38:00 Test Item Value Reference Range Interpretation Comments COLOR (BEAKER) (test code = 470) Light Yellow CLARITY (BEAKER) (test code = Clear 469) SPECIFIC GRAVITY UA (BEAKER) 1.010 1.001-1.035 (test code = 468) PH UA (BEAKER) (test code = 467) 6.5 5.0-8.0 PROTEIN UA (BEAKER) (test code = 200 mg/dL Negative A 464) GLUCOSE UA (BEAKER) (test code = 1000 mg/dL Negative A 365) KETONES UA (BEAKER) [...] 463) RBC UA (BEAKER) (test code = 3 /HPF 519) WBC UA (BEAKER) (test code = 1 /HPF 520) BACTERIA (BEAKER) (test code = Rare 517) SQUAMOUS EPITHELIAL (BEAKER) 2 /HPF (test code = 516) SOURCE(BEAKER) (test code = 2795) Brinell Tester ID - [auto]Brinell Tester ID - [id number] 10:32:00 Test Item Value Reference Range Interpretation Comments PHOSPHORUS (BEAKER) (test code = 3.8 mg/dL 2.3-4.7 604) Brinell Tester ID - RICHELLE LCOMPREHENSIVE METABOLIC [id number] 10:32:00 Test Item Value Reference Range Interpretation Comments TOTAL PROTEIN 7.3 gm/dL 6.0-8.3 (BEAKER) (test code = 770) ALBUMIN (BEAKER) 4.0 g/dL 3.5-5.0 (test code = 1145) ALKALINE PHOSPHATASE 132 U/L 40-150 (BEAKER) (test code = 346) BILIRUBIN TOTAL 0.4 mg/dL 0.2-1.2 (BEAKER) (test code = 377) SODIUM (BEAKER) (test 139 meq/L 136-145 code = 381) POTASSIUM (BEAKER) 4.2 meq/L 3.5-5.1 (test code = 379) CHLORIDE (BEAKER) 108 meq/L 98-107 H (test code = 382) CO2 (BEAKER) (test 20 meq/L 22-29 L code = 355) BLOOD UREA NITROGEN 19 mg/dL 7-21 (BEAKER) (test code = 354) CREATININE (BEAKER) 1.22 mg/dL 0.57-1.25 (test code = 358) GLUCOSE RANDOM 229 mg/dL 70-105 H (BEAKER) (test code = 652) CALCIUM (BEAKER) 9.6 mg/dL 8.4-10.2 (test code = 697) AST (SGOT) (BEAKER) 36 U/L 5-34 H (test code = 353) ALT (SGPT) (BEAKER) 43 U/L 6-55 (test code = 347) EGFR (BEAKER) (test 47 mL/min/1.73 ESTIMA BRII GFR IS code = 1092) sq m NOT ACCURATE CREATININE CLEARANCE IN PREDICTING GLOMERULAR FILTRATION RATE . ESTIMATED GFR I S NOT APPLICABLE FOR DIALYSIS PATIEN TS. Brinell Tester ID - PIAYA LSpecimen slightly lipemicCBC W/PLT COUNT & AUTO [id number] 10:16:00 Test Item Value Reference Range Interpretation Comments WHITE BLOOD CELL COUNT (BEAKER) 7.2 K/ L 3.5-10.5 (test code = 775) RED BLOOD CELL COUNT (BEAKER) 3.98 M/ L 3.93-5.22 (test code = 761) HEMOGLOBIN (BEAKER) (test code = 13.4 GM/DL 11.2-15.7 410) HEMATOCRIT (BEAKER) (test code = 39.8 % 34.1-44.9 411) MEAN CORPUSCULAR VOLUME (BEAKER) 100.0 fL 79.4-94.8 H (test code = 753) MEAN CORPUSCULAR HEMOGLOBIN 33.7 pg 25.6-32.2 H (BEAKER) (test code = 751) MEAN CORPUSCULAR HEMOGLOBIN CONC 33.7 GM/DL 32.2-35.5 (BEAKER) (test code = 752) RED CELL DISTRIBUTION WIDTH 12.8 % 11.7-14.4 (BEAKER) (test code = 412) PLATELET COUNT (BEAKER) (test 255 K/CU MM 150-450 code = 756) MEAN PLATELET VOLUME (BEAKER) 9.8 fL 9.4-12.3 (test code = 754) NUCLEATED RED BLOOD CELLS 0 /100 WBC 0-0 (BEAKER) (test code = 413) NEUTROPHILS RELATIVE PERCENT 79 % (BEAKER) (test code = 429) LYMPHOCYTES RELATIVE PERCENT 10 % (BEAKER) (test code = 430) MONOCYTES RELATIVE PERCENT 5 % (BEAKER) (test code = 431) EOSINOPHILS RELATIVE PERCENT 2 % (BEAKER) (test code = 432) BASOPHILS RELATIVE PERCENT 0 % (BEAKER) (test code = 437) NEUTROPHILS ABSOLUTE COUNT 5.71 K/ L 1.56-6.13 (BEAKER) (test code = 670) LYMPHOCYTES ABSOLUTE COUNT 0.72 K/ L 1.18-3.74 L (BEAKER) (test code = 414) MONOCYTES ABSOLUTE COUNT (BEAKER) 0.36 K/ L 0.24-0.36 (test code = 415) EOSINOPHILS ABSOLUTE COUNT 0.16 K/ L 0.04-0.36 (BEAKER) (test code = 416) BASOPHILS ABSOLUTE COUNT (BEAKER) 0.03 K/ L 0.01-0.08 (test code = 417) IMMATURE GRANULOCYTES-RELATIVE 3 % 0-1 H PERCENT (BEAKER) (test code = 2801) TISSUE [id number] 15:57:00Surgical Pathology Report Case: [id number] Authorizing Provider: Cecile Langley MD Collected: 06/20/2020 10:10 AM Ordering Location: [facility] Radiology Main Received: 06/20/2020 10:42 AM Pathologist: Genesis Veloz MD Specimen: Kidney, Left This addendum is issued to report the results of ultrastructural examination performed on paraffin embedded tissue. ELECTRON MICROSCOPY:Thick section histology: Toluidine blue-stained sections reveal 1 non-obsolescent glomerulus.Ultrastructure: Examination of the glomerular ultrastructure reveals that the glomerular basement membrane is no thickened. No double contours are seen. The mesangial matrix is mildly expanded. Subendothelial, subepithelial, and mesangial/paramesangial electron-dense, immune complex-type deposits are not present. Podocyte foot processes are mostly preserved with only focal and segmental effacement. The peritubular capillaries show 1 layer of basement membrane.Technical processing for EMevaluation, and electron microscopy imaging was performed at [facility], CV Pathology laboratory, CLIA # [id number], [address] [place] [address], [address], [place] [address]. The EM images were interpreted by the reporting pathologist at [facility].[id number] electronically signed by Genesis Veloz MDon 06/23/2020 at 3:57 PMA. KIDNEY ALLOGRAFT, NEEDLE BIOPSIES (S/P RENAL TRANSPLANT ON 01/21/2020) - FOCAL SEGMENTAL GLOMERULOSCLEROSIS WITH COLLAPSING FEATURES. - NO EVIDENCE OF ACUTE T CELL-MEDIATED REJECTION. - NEGATIVE C4d. - NEGATIVE FOR IMMUNE MEDIATED GLOMERULONEPHRITIS. - APPROXIMATELY 10% GLOBAL GLOMERULOSCLEROSIS ( 2/21 GLOMERULI) AND 20% INTERSTITIAL FIBROSIS WITH TUBULAR ATROPHY (IFTA). Signing Pathologist Direct Phone Line: [phone] signed byGenesis Veloz MD on 06/22/2020 at 10:18 AMPreliminary result electronically signed by Genesis Veloz MD on2020 at 5:46 PMPreliminary findings were discussed with Dr. Langley on 06/20/2020 at 5:00 PM.[id number], [id number] X 3, 76054, 12891 X 8Elevated creatinineA. Kidney biopsy (transplant)A. The specimen is received in 3 containers, all labeled with patient's name, medical record number, and accession number.Received in formalin are 2 townsend soft tissue cores (2.2 x 0.1, 1 x 0.1 cm). Specimen submitted in toto in cassette A1.Received in saline are 2 townsend soft tissue cores (2 x 0.1, 1 x 0.1 cm) that is frozen for immunofluorescence studies.Received in glutaraldehyde is single townsend-pink tissue fragment (0.5 x 0.2 cm). Specimen sent to EM lab for further processing.Luis Dubon MDLight Microscopy: Sections sh ow 2 core tissue fragments consisting of renal cortex (~50%) and medulla (~50%). Glomeruli: Approximately 18 glomeruli are examined. Two glomeruli are globally sclerotic. Approximately seven glomeruli have segmental sclerosis. A few glomeruli have collapsing features with podocyte hypertrophy. No definite glomerulitis or glomerular capillary double contours are present by silver and PAS stains. Tubules and interstitium: There is about 20% interstitial fibrosis with early tubular atrophy (IFTA) and associated inflammation consisting of lymphocytes and neutrophils. The non-fibrotic interstitium has very mild infiltration by lymphocytes. No significant tubulitis is present. Non-atrophic proximal tubules are not ectatic and have intact brush borders. There is occasional peritubular capillaritis. Viral nuclear and cytological atypia is not present. Vessels: One artery is present with mild intimal sclerosis and no intimal arteritis. Arterioles have mild hyaline sclerosis. Special stains: Frank trichrome, PAS and Montelongo silver stains were necessary for evaluation of this biopsy and showed expected staining patterns of internal control tissue matrix structures. IMMUNOFLUORESCENCE:Histology: H&E-stained sections show 3 non-obsolescent glomeruli and one segmentally sclerotic glomerulus. Indirect I mmunofluorescence findings:Peritubular capillaries are negative for C4d*. Glomeruli have segmental glomerular mesangial staining. External positive control shows strong staining of interstitial capillaries.Direct immunofluorescence findings: IgA: negative glomeruli, positive staining tubular protein reabsorption droplets.IgG: negative glomeruli, positive staining tubular protein reabsorption droplets. IgM: segmental mesangial staining/entrapment. C3: segmental mesangial staining/entrapment; positive staining tubular protein reabsorption droplets. C1q: segmental mesangial staining/entrapment; positive staining tubular protein reabsorption droplets. Enola: negative glomeruli; positive tubular protein reabsorption droplets.Lambda: negative glomeruli; positive tubular protein reabsorption dropletsFibrinogen: focal weak interstitial staining. All polyclonal antibodies used for immunofluorescence staining have been previously tested and shown to have appropriate reactivity with positive control specimens.No glomeruli are present in the tissue submitted for ultrastructural examination.The interpret ation of this case included the use of immunohistochemistry or special stains.PAS, Montelongo, TrichromeControl Slides Examined: In-house known positive controls were evaluated along with the test tissue.These control slides run alongside of the patients sample show appropriate staining. Internal positive and negative controls when available are evaluated Immunohistochemistry technical testing was performed at [facility], Pathology Laboratory where it was developed and its performance characteristics were determined. It has not been cleared or approved by the U.S. Food and Drug A dministration. The FDA has determined that such clearance or approval is not necessary. The test is used for clinical purposes. It should not be regarded as investigational or for research. This laboratory is certified under the Clinical Laboratory Improvement Amendments of 1988 (CLIA-88) as qualifiedto perform high complexity clinical laboratory testing.[facility], Department of Pathology, [address] [place] [address], [facility], [address] [place] [id number], [place] [place], Department of [facility]ology, [address] [place] [id number], ZF VIRUS PCR, [id number] 10:38:00 Test Item Value Reference Range Interpretation Comments BK VIRUS, PLASMA, POS Testin g done at [employer]) (test code = Diagno stics. 1820) BK VIRUS, PLASMA, NEG Testin g done at [employer]) (test code = Diagno stics. 2145) BK DNA Positive= 2304 copies/mLSee Scanned ReportU/S, BIOPSY, RENAL (KIDNEY) 2020-06-20 14:00:00Dialysis 05/23Biopsy of transplanted kidneyReason for Exam:- >[facility]lev[facility] : 1970 Sex: FFINAL REPORT US Guided Core Biopsy Transplant Kidney. History: Renal transplant with elevated creatinine System Administrator: Elieser Hicks MD. Maintenance Supervisor Mechanical: None Modality: Ultrasound Sedation: Moderate sedation was administered. 1 milligram of Versed and 50 micrograms of fentanyl IV was used for moderate sedation monitored under my direction. Total intraservice time of sedation was 30 minutes. The patient's vital signs were monitored throughout the procedure and recorded in the patient's medical record by the nurse. Estimated blood loss: < 5 cc. Technique: Informed written consent was obtained. Discussion of risks, benefits, and alternatives were made with the patient. The patient expressed understanding and agreed to proceed. A universal timeout was performed priorto starting the procedure. Standard sterile precautions were utilized. A preliminary ultrasonographywas performed to assess the target and determine a safe access site. It showed an iliac fossa renal transplant. Pertinent ultrasound images were stored to the PACS for documentation. A safe access site was selected and sterilely prepped and draped. Local anesthesia with 1% lidocaine was administered.A dermatotomy was performed. Using aseptic precautions, under real-time ultrasonographic guidance, core biopsies of the renal cortex were performed. The specimen was given to the agriculture laboratory technician for further processing. At the end of the procedure, an ultrasound exam showed absence of hemorrhage or perinephric hematoma. An aseptic dressing was applied. The patient tolerated the procedure well. After recovery, the patient was discharged from the department in stable condition. Complications:None immediate. Specimen: 3 cores Impression: Successful ultrasound-guided core biopsy of left iliac fossa renal transplant. Thank you for the opportunity to assist in the care of your patient. Signed: Elieser Hicks MDReport Verified Date/Time: 06/20/2020 14:00:37 ReadingLocation: [facility] B1 P048 Angio Body Reading Room TACROLIMUS [id number] 12:56:00 Test Item Value Reference Range Interpretation Comments TACROLIMUS BLOOD 8.4 ng/mL 10.0-20.0 L Test perfor med on [employer]) (test code Architec t Immunoassay = 657) system with Chemiluminescen t Microparticle I mmunoassay (CMIA) jacquelin porter. Brinell Tester ID - RMPROTEIN, 24 HOUR [id number] 12:53:00 Test Item Value Reference Range Interpretation Comments PROTEIN, 24HR URINE (BEAKER) 6192 mg/24hr 0-300 H (test code = 1570) VOLUME, TOTAL (BEAKER) (test 2400 ml code = 1457) PROTEIN, URINE (BEAKER) (test 258 mg/dL 0-14 H code = 1569) Brinell Tester ID - AAHAMIDURINALYSIS W/ REFLEX URINE [id number] 12:14:00 Test Item Value Reference Range Interpretation Comments COLOR (BEAKER) (test code = 470) Light Yellow CLARITY (BEAKER) (test code = Hazy 469) SPECIFIC GRAVITY UA (BEAKER) 1.013 1.001-1.035 (test code = 468) PH UA (BEAKER) (test code = 467) 6.5 5.0-8.0 PROTEIN UA (BEAKER) (test code = 200 mg/dL Negative A 464) GLUCOSE UA (BEAKER) (test code = 200 mg/dL Negative A 365) KETONES UA (BEAKER) [...] 519) WBC UA (BEAKER) (test code = < /HPF 520) BACTERIA (BEAKER) (test code = Occasional 517) MUCUS (BEAKER) (test code = Rare 1574) SQUAMOUS EPITHELIAL (BEAKER) 5 /HPF (test code = 516) YEAST (BEAKER) (test code = Rare 1585) SOURCE(BEAKER) (test code = 1033) Brinell Tester ID - [auto]Brinell Tester ID - techPROTEIN, RANDOM [id number] 12:11:00 Test Item Value Reference Range Interpretation Comments PROTEIN, URINE (BEAKER) (test code 266 mg/dL 0-14 H = 1569) Brinell Tester ID - [id number] 11:42:00 Test Item Value Reference Range Interpretation Comments PHOSPHORUS (BEAKER) 3.9 mg/dL 2.3-4.7 Specimen slightly (test code = 604) hemolyzed Brinell Tester ID - AAHAMIDCOMPREHENSIVE METABOLIC [id number] 11:42:00 Test Item Value Reference Range Interpretation Comments TOTAL PROTEIN 7.9 gm/dL 6.0-8.3 Specimen sligh tly (BEAKER) (test code = hemoly zed 770) ALBUMIN (BEAKER) 4.2 g/dL 3.5-5.0 Specimen sl ightly (test code = 1145) hemolyzed ALKALINE PHOSPHATASE 118 U/L 40-150 (BEAKER) (test code = 346) BILIRUBIN TOTAL 0.6 mg/dL 0.2-1.2 Specimen sli ghtly (BEAKER) (test code = hemoly zed 377) SODIUM (BEAKER) (test 136 meq/L 136-145 code = 381) POTASSIUM (BEAKER) 4.6 meq/L 3.5-5.1 Specimen slightly (test code = 379) hemolyzed CHLORIDE (BEAKER) 103 meq/L 98-107 (test code = 382) CO2 (BEAKER) (test 19 meq/L 22-29 L code = 355) BLOOD UREA NITROGEN 26 mg/dL 7-21 H (BEAKER) (test code = 354) CREATININE (BEAKER) 1.49 mg/dL 0.57-1.25 H Specimen slightly (test code = 358) hemolyzed GLUCOSE RANDOM 183 mg/dL 70-105 H (BEAKER) (test code = 652) CALCIUM (BEAKER) 10.0 mg/dL 8.4-10.2 (test code = 697) AST (SGOT) (BEAKER) 42 U/L 5-34 H Specimen slightly (test code = 353) hemolyzed ALT (SGPT) (BEAKER) 57 U/L 6-55 H Specimen slightly (test code = 347) hemolyzed EGFR (BEAKER) (test 37 mL/min/1.73 ESTIMA BRII GFR IS code = 1092) sq m NOT ACCURATE CREATININE CLEARANCE IN PREDICTING GLOMERULAR FILTRATION RATE . ESTIMATED GFR I S NOT APPLICABLE FOR DIALYSIS PATIEN TS. Brinell Tester ID - AAHAMIDCREATININE, RANDOM [id number] 11:39:00 Test Item Value Reference Range Interpretation Comments CREATININE URINE (BEAKER) (test 63.5 mg/dL code = 375) Reference Range: No NormalsOperator ID - AAHAMIDCBC W/PLT COUNT & AUTO [id number] 11:20:00 Test Item Value Reference Range Interpretation Comments WHITE BLOOD CELL COUNT (BEAKER) 8.9 K/ L 3.5-10.5 (test code = 775) RED BLOOD CELL COUNT (BEAKER) 4.02 M/ L 3.93-5.22 (test code = 761) HEMOGLOBIN (BEAKER) (test code = 13.5 GM/DL 11.2-15.7 410) HEMATOCRIT (BEAKER) (test code = 40.3 % 34.1-44.9 411) MEAN CORPUSCULAR VOLUME (BEAKER) 100.2 fL 79.4-94.8 H (test code = 753) MEAN CORPUSCULAR HEMOGLOBIN 33.6 pg 25.6-32.2 H (BEAKER) (test code = 751) MEAN CORPUSCULAR HEMOGLOBIN CONC 33.5 GM/DL 32.2-35.5 (BEAKER) (test code = 752) RED CELL DISTRIBUTION WIDTH 13.0 % 11.7-14.4 (BEAKER) (test code = 412) PLATELET COUNT (BEAKER) (test 225 K/CU MM 150-450 code = 756) MEAN PLATELET VOLUME (BEAKER) 10.6 fL 9.4-12.3 (test code = 754) NUCLEATED RED BLOOD CELLS 0 /100 WBC 0-0 (BEAKER) (test code = 413) NEUTROPHILS RELATIVE PERCENT 78 % (BEAKER) (test code = 429) LYMPHOCYTES RELATIVE PERCENT 10 % (BEAKER) (test code = 430) MONOCYTES RELATIVE PERCENT 6 % (BEAKER) (test code = 431) EOSINOPHILS RELATIVE PERCENT 2 % (BEAKER) (test code = 432) BASOPHILS RELATIVE PERCENT 1 % (BEAKER) (test code = 437) NEUTROPHILS ABSOLUTE COUNT 6.92 K/ L 1.56-6.13 H (BEAKER) (test code = 670) LYMPHOCYTES ABSOLUTE COUNT 0.87 K/ L 1.18-3.74 L (BEAKER) (test code = 414) MONOCYTES ABSOLUTE COUNT (BEAKER) 0.51 K/ L 0.24-0.36 H (test code = 415) EOSINOPHILS ABSOLUTE COUNT 0.14 K/ L 0.04-0.36 (BEAKER) (test code = 416) BASOPHILS ABSOLUTE COUNT (BEAKER) 0.05 K/ L 0.01-0.08 (test code = 417) IMMATURE GRANULOCYTES-RELATIVE 4 % 0-1 H PERCENT (BEAKER) (test code = 2801) (CELLAVISION MANUAL DIFF)2020-06-07 15:46:00 Test Item Value Reference Range Interpretation Comments NEUTROPHILS - REL 72 % (CELLAVISION)(BEAKER) (test code = 2816) LYMPHOCYTES - REL 8 % (CELLAVISION)(BEAKER) (test code = 2817) MONOCYTES - REL 12 % (CELLAVISION)(BEAKER) (test code = 2818) EOSINOPHILS - REL 1 % (CELLAVISION)(BEAKER) (test code = 2819) BASOPHILS - REL 1 % (CELLAVISION)(BEAKER) (test code = 2820) BANDS - REL (CELLAVISION)(BEAKER) 5 % 0-10 (test code = 2826) ATYPICAL LYMPHOCYTES - REL 1 % 0-0 H (CELLAVISION)(BEAKER) (test code = 2829) NEUTROPHILS - ABS 3.96 K/ul 1.56-6.13 (CELLAVISION)(BEAKER) (test code = 2830) LYMPHOCYTES - ABS 0.44 K/ul 1.18-3.74 L (CELLAVISION)(BEAKER) (test code = 2831) MONOCYTES - ABS 0.66 K/uL 0.24-0.36 H (CELLAVISION)(BEAKER) (test code = 2832) EOSINOPHILS - ABS 0.06 K/uL 0.04-0.36 (CELLAVISION)(BEAKER) (test code = 2834) BASOPHILS - ABS 0.06 K/uL 0.01-0.08 (CELLAVISION)(BEAKER) (test code = 2835) BANDS - ABS (CELLAVISION)(BEAKER) 0.28 K/uL 0.00-0.80 (test code = 2840) ATYPICAL LYMPHOCYTES - ABS 0.06 K/uL 0.00-0.00 H (CELLAVISION)(BEAKER) (test code = 2858) TOTAL COUNTED (BEAKER) (test code 100 = 1351) MANUAL NRBC PER 100 CELLS (BEAKER) 1 /100 WBC 0-0 H (test code = 1353) PLT MORPHOLOGY (BEAKER) (test code Normal = 486) SMUDGE CELLS (BEAKER) (test code = Present 1371) POIKILOCYTES (BEAKER) (test code = 1+ few 966) SPHEROCYTES (BEAKER) (test code = 1+ few 768) OVALOCYTES (BEAKER) (test code = 1+ few 477) TEAR DROP CELLS (BEAKER) (test 1+ few code = 481) ARTIFACT (CELLAVISION)(BEAKER) Present (test code = 3432) PLATELET CONCENTRATION Decreased (CELLAVISION)(BEAKER) (test code = 3438) Brinell Tester ID - Sharita Caputo comments: Slide comments:CBC W/PLT COUNT & AUTO [id number] 15:37:00 Test Item Value Reference Range Interpretation Comments WHITE BLOOD CELL COUNT (BEAKER) 5.5 K/ L 3.5-10.5 (test code = 775) RED BLOOD CELL COUNT (BEAKER) 4.16 M/ L 3.93-5.22 (test code = 761) HEMOGLOBIN (BEAKER) (test code = 13.6 GM/DL 11.2-15.7 410) HEMATOCRIT (BEAKER) (test code = 41.1 % 34.1-44.9 411) MEAN CORPUSCULAR VOLUME (BEAKER) 98.8 fL 79.4-94.8 H (test code = 753) MEAN CORPUSCULAR HEMOGLOBIN 32.7 pg 25.6-32.2 H (BEAKER) (test code = 751) MEAN CORPUSCULAR HEMOGLOBIN CONC 33.1 GM/DL 32.2-35.5 (BEAKER) (test code = 752) [...] (test code = 430) MONOCYTES RELATIVE PERCENT 11 % (BEAKER) (test code = 431) EOSINOPHILS RELATIVE PERCENT 3 % (BEAKER) (test code = 432) BASOPHILS RELATIVE PERCENT 1 % (BEAKER) (test code = 437) NEUTROPHILS ABSOLUTE COUNT 3.29 K/ L 1.56-6.13 (BEAKER) (test code = 670) LYMPHOCYTES ABSOLUTE COUNT 0.78 K/ L 1.18-3.74 L (BEAKER) (test code = 414) MONOCYTES ABSOLUTE COUNT (BEAKER) 0.61 K/ L 0.24-0.36 H (test code = 415) EOSINOPHILS ABSOLUTE COUNT 0.16 K/ L 0.04-0.36 (BEAKER) (test code = 416) BASOPHILS ABSOLUTE COUNT (BEAKER) 0.03 K/ L 0.01-0.08 (test code = 417) IMMATURE GRANULOCYTES-RELATIVE 11 % 0-1 H PERCENT (BEAKER) (test code = 2801) TACROLIMUS [id number] 13:23:00 Test Item Value Reference Range Interpretation Comments TACROLIMUS BLOOD 13.9 ng/mL 10.0-20.0 Test perfor med on [employer] (BEAKER) (test code Architec t Immunoassay = 657) system with Chemiluminescen t Microparticle Immunoassay (CM IA) technology. PROTEIN, RANDOM [id number] 12:44:00 Test Item Value Reference Range Interpretation Comments PROTEIN, URINE (BEAKER) (test code 345 mg/dL 0-14 H = 1569) Brinell Tester ID - NAYAN CCREATININE, RANDOM [id number] 11:55:00 Test Item Value Reference Range Interpretation Comments CREATININE URINE (BEAKER) (test 66.6 mg/dL code = 375) Reference Range: No NormalsOperator ID - NAYAN [id number] 11:53:00 Test Item Value Reference Range Interpretation Comments PHOSPHORUS (BEAKER) (test code = 3.6 mg/dL 2.3-4.7 604) Brinell Tester ID - NAYAN CCOMPREHENSIVE METABOLIC [id number] 11:53:00 Test Item Value Reference Range Interpretation Comments TOTAL PROTEIN 7.7 gm/dL 6.0-8.3 (BEAKER) (test code = 770) ALBUMIN (BEAKER) 4.2 g/dL 3.5-5.0 (test code = 1145) ALKALINE PHOSPHATASE 126 U/L 40-150 (BEAKER) (test code = 346) BILIRUBIN TOTAL 0.6 mg/dL 0.2-1.2 (BEAKER) (test code = 377) SODIUM (BEAKER) (test 137 meq/L 136-145 code = 381) POTASSIUM (BEAKER) 4.2 meq/L 3.5-5.1 (test code = 379) CHLORIDE (BEAKER) 106 meq/L 98-107 (test code = 382) CO2 (BEAKER) (test 20 meq/L 22-29 L code = 355) BLOOD UREA NITROGEN 18 mg/dL 7-21 (BEAKER) (test code = 354) CREATININE (BEAKER) 1.24 mg/dL 0.57-1.25 (test code = 358) GLUCOSE RANDOM 189 mg/dL 70-105 H (BEAKER) (test code = 652) CALCIUM (BEAKER) 9.8 mg/dL 8.4-10.2 (test code = 697) AST (SGOT) (BEAKER) 30 U/L 5-34 (test code = 353) ALT (SGPT) (BEAKER) 55 U/L 6-55 (test code = 347) EGFR (BEAKER) (test 46 mL/min/1.73 ESTIMA BRII GFR IS code = 1092) sq m NOT ACCURATE CREATININE CLEARANCE IN PREDICTING GLOMERULAR FILTRATION RATE . ESTIMATED GFR I S NOT APPLICABLE FOR DIALYSIS PATIEN TS. Brinell Tester ID - NAYAN CSpecimen slightly lipemicURINALYSIS W/ REFLEX URINE CULTURE 2020-06-07 11:46:00 Test Item Value Reference Range Interpretation Comments COLOR (BEAKER) (test code = 470) Light Yellow CLARITY (BEAKER) (test code = Clear 469) SPECIFIC GRAVITY UA (BEAKER) 1.012 1.001-1.035 (test code = 468) PH UA [...] 463) RBC UA (BEAKER) (test code = 0 /HPF 519) WBC UA (BEAKER) (test code = 1 /HPF 520) BACTERIA (BEAKER) (test code = Rare 517) MUCUS (BEAKER) (test code = Rare 1574) SQUAMOUS EPITHELIAL (BEAKER) 2 /HPF (test code = 516) SOURCE(BEAKER) (test code = 2999) Brinell Tester ID - [auto]Brinell Tester ID - techPROTEIN, RANDOM [id number] 14:21:00 Test Item Value Reference Range Interpretation Comments PROTEIN, URINE (BEAKER) (test code 266 mg/dL 0-14 H = 1569) Brinell Tester ID - RICHELLE LTACROLIMUS [id number] 13:28:00 Test Item Value Reference Range Interpretation Comments TACROLIMUS BLOOD 8.7 ng/mL 10.0-20.0 L Test perfor med on [employer] (BEAKER) (test code Architec t Immunoassay = 657) system with Chemiluminescen t Microparticle I mmunoassay (CMIA) technrene marie Brinell Tester ID - NABEEL FURINALYSIS W/ REFLEX URINE [id number] 11:39:00 Test Item Value Reference Range Interpretation Comments COLOR (BEAKER) (test code = 470) Light Yellow CLARITY (BEAKER) (test code = Clear 469) SPECIFIC GRAVITY UA (BEAKER) 1.011 1.001-1.035 (test code = 468) PH UA (BEAKER) (test code = 467) 6.5 5.0-8.0 PROTEIN UA (BEAKER) (test code = 300 mg/dL Negative A 464) GLUCOSE UA (BEAKER) (test code = 1000 mg/dL Negative A 365) KETONES UA (BEAKER) [...] 519) WBC UA (BEAKER) (test code = < /HPF 520) BACTERIA (BEAKER) (test code = Occasional 517) SQUAMOUS EPITHELIAL (BEAKER) 3 /HPF (test code = 516) SOURCE(BEAKER) (test code = 2795) Brinell Tester ID - [auto]Brinell Tester ID - techCBC W/PLT COUNT & AUTO DIFFERENTIAL 2020-05-23 11:33:00 Test Item Value Reference Range Interpretation Comments WHITE BLOOD CELL COUNT (BEAKER) 2.5 K/ L 3.5-10.5 L (test code = 775) RED BLOOD CELL COUNT (BEAKER) 3.98 M/ L 3.93-5.22 (test code = 761) HEMOGLOBIN (BEAKER) (test code = 12.9 GM/DL 11.2-15.7 410) HEMATOCRIT (BEAKER) (test code = 39.6 % 34.1-44.9 411) MEAN CORPUSCULAR VOLUME (BEAKER) 99.5 fL 79.4-94.8 H (test code = 753) MEAN CORPUSCULAR HEMOGLOBIN 32.4 pg 25.6-32.2 H (BEAKER) (test code = 751) MEAN CORPUSCULAR HEMOGLOBIN CONC 32.6 GM/DL 32.2-35.5 (BEAKER) (test code = 752) RED CELL DISTRIBUTION WIDTH 13.1 % 11.7-14.4 (BEAKER) (test code = 412) PLATELET COUNT (BEAKER) (test 225 K/CU MM 150-450 code = 756) MEAN PLATELET VOLUME (BEAKER) 9.9 fL 9.4-12.3 (test code = 754) NUCLEATED RED BLOOD CELLS 0 /100 WBC 0-0 (BEAKER) (test code = 413) (CELLAVISION MANUAL DIFF)2020-05-23 11:33:00 Test Item Value Reference Range Interpretation Comments NEUTROPHILS - REL 58 % (CELLAVISION)(BEAKER) (test code = 2816) LYMPHOCYTES - REL 23 % (CELLAVISION)(BEAKER) (test code = 2817) MONOCYTES - REL 7 % (CELLAVISION)(BEAKER) (test code = 2818) EOSINOPHILS - REL 2 % (CELLAVISION)(BEAKER) (test code = 2819) BASOPHILS - REL 2 % (CELLAVISION)(BEAKER) (test code = 2820) BANDS - REL (CELLAVISION)(BEAKER) 5 % 0-10 (test code = 2826) ATYPICAL LYMPHOCYTES - REL 3 % 0-0 H (CELLAVISION)(BEAKER) (test code = 2829) NEUTROPHILS - ABS 1.45 K/ul 1.56-6.13 L (CELLAVISION)(BEAKER) (test code = 2830) LYMPHOCYTES - ABS 0.58 K/ul 1.18-3.74 L (CELLAVISION)(BEAKER) (test code = 2831) MONOCYTES - ABS 0.18 K/uL 0.24-0.36 L (CELLAVISION)(BEAKER) (test code = 2832) EOSINOPHILS - ABS 0.05 K/uL 0.04-0.36 (CELLAVISION)(BEAKER) (test code = 2834) BASOPHILS - ABS 0.05 K/uL 0.01-0.08 (CELLAVISION)(BEAKER) (test code = 2835) BANDS - ABS (CELLAVISION)(BEAKER) 0.13 K/uL 0.00-0.80 (test code = 2840) ATYPICAL LYMPHOCYTES - ABS 0.08 K/uL 0.00-0.00 H (CELLAVISION)(BEAKER) (test code = 7248) TOTAL COUNTED (BEAKER) (test code = 100 1351) RBC MORPHOLOGY (BEAKER) (test code Normal = 762) WBC MORPHOLOGY (BEAKER) (test code Normal = 487) PLT MORPHOLOGY (BEAKER) (test code Normal = 486) ARTIFACT (CELLAVISION)(BEAKER) Present (test code = 9132) PLATELET CONCENTRATION Adequate (CELLAVISION)(BEAKER) (test code = 2428) Brinell Tester ID - Raya OverholtUser comments: Slide comments:[id number] 11:18:00 Test Item Value Reference Range Interpretation Comments PHOSPHORUS (BEAKER) (test code = 2.9 mg/dL 2.3-4.7 604) Brinell Tester ID - WILI MCOMPREHENSIVE METABOLIC [id number] 11:18:00 Test Item Value Reference Range Interpretation Comments TOTAL PROTEIN 7.4 gm/dL 6.0-8.3 (BEAKER) (test code = 770) ALBUMIN (BEAKER) 4.0 g/dL 3.5-5.0 (test code = 1145) ALKALINE PHOSPHATASE 135 U/L 40-150 (BEAKER) (test code = 346) BILIRUBIN TOTAL 0.5 mg/dL 0.2-1.2 (BEAKER) (test code = 377) SODIUM (BEAKER) (test 138 meq/L 136-145 code = 381) POTASSIUM (BEAKER) 4.4 meq/L 3.5-5.1 (test code = 379) CHLORIDE (BEAKER) 108 meq/L 98-107 H (test code = 382) CO2 (BEAKER) (test 20 meq/L 22-29 L code = 355) BLOOD UREA NITROGEN 19 mg/dL 7-21 (BEAKER) (test code = 354) CREATININE (BEAKER) 1.24 mg/dL 0.57-1.25 (test code = 358) GLUCOSE RANDOM 294 mg/dL 70-105 H (BEAKER) (test code = 652) CALCIUM (BEAKER) 9.5 mg/dL 8.4-10.2 (test code = 697) AST (SGOT) (BEAKER) 33 U/L 5-34 (test code = 353) ALT (SGPT) (BEAKER) 47 U/L 6-55 (test code = 347) EGFR (BEAKER) (test 46 mL/min/1.73 ESTIMA BRII GFR IS code = 1092) sq m NOT ACCURATE CREATININE CLEARANCE IN PREDICTING GLOMERULAR FILTRATION RATE . ESTIMATED GFR I S NOT APPLICABLE FOR DIALYSIS PATIEN TS. Brinell Tester ID - WILI MSpecimen slightly lipemicCREATININE, RANDOM [id number] 11:13:00 Test Item Value Reference Range Interpretation Comments CREATININE URINE (BEAKER) (test 46.3 mg/dL code = 375) Reference Range: No NormalsOperator ID - RICHELLE LBK VIRUS PCR, [id number] 12:08:00 Test Item Value Reference Range Interpretation Comments BK VIRUS, PLASMA, POS See sc anned report. (BEAKER) (test code = 1820) BK VIRUS, PLASMA, NEG See ok anned report. (BEAKER) (test code = 2145) (CELLAVISION MANUAL DIFF)2020-05-09 15:25:00 Test Item Value Reference Range Interpretation Comments NEUTROPHILS - REL 65 % (CELLAVISION)(BEAKER) (test code = 2816) LYMPHOCYTES - REL 12 % (CELLAVISION)(BEAKER) (test code = 2817) MONOCYTES - REL 6 % (CELLAVISION)(BEAKER) (test code = 2818) EOSINOPHILS - REL 15 % (CELLAVISION)(BEAKER) (test code = 2819) METAMYELOCYTES - REL 1 % 0-0 H (CELLAVISION)(BEAKER) (test code = 2821) MYELOCYTES - REL 1 % 0-0 H (CELLAVISION)(BEAKER) (test code = 2822) NEUTROPHILS - ABS 1.82 K/ul 1.56-6.13 (CELLAVISION)(BEAKER) (test code = 2830) LYMPHOCYTES - ABS 0.34 K/ul 1.18-3.74 L (CELLAVISION)(BEAKER) (test code = 2831) MONOCYTES - ABS 0.17 K/uL 0.24-0.36 L (CELLAVISION)(BEAKER) (test code = 2832) EOSINOPHILS - ABS 0.42 K/uL 0.04-0.36 H (CELLAVISION)(BEAKER) (test code = 2834) METAMYELOCYTES - ABS 0.03 K/uL 0.00-0.00 H (CELLAVISION)(BEAKER) (test code = 2836) MYELOCYTES-ABS 0.03 K/uL 0.00-0.00 H (CELLAVISION)(BEAKER) (test code = 2837) TOTAL COUNTED (BEAKER) (test code = 100 1351) WBC MORPHOLOGY (BEAKER) (test code Normal = 487) PLT MORPHOLOGY (BEAKER) (test code Normal = 486) POIKILOCYTES (BEAKER) (test code = 1+ few 966) TEAR DROP CELLS (BEAKER) (test code 1+ few = 481) ARTIFACT (CELLAVISION)(BEAKER) Present (test code = 3432) PLATELET CONCENTRATION Adequate (CELLAVISION)(BEAKER) (test code = 3438) [place] Tester ID - Albertina Osorio comments: Slide comments:CBC W/PLT COUNT & AUTO [id number] 14:51:00 Test Item Value Reference Range Interpretation Comments WHITE BLOOD CELL COUNT (BEAKER) 2.8 K/ L 3.5-10.5 L (test code = 775) RED BLOOD CELL COUNT (BEAKER) 3.94 M/ L 3.93-5.22 (test code = 761) HEMOGLOBIN (BEAKER) (test code = 13.2 GM/DL 11.2-15.7 410) HEMATOCRIT (BEAKER) (test code = 39.2 % 34.1-44.9 411) MEAN CORPUSCULAR VOLUME (BEAKER) 99.5 fL 79.4-94.8 H (test code = 753) MEAN CORPUSCULAR HEMOGLOBIN 33.5 pg 25.6-32.2 H (BEAKER) (test code = 751) MEAN CORPUSCULAR HEMOGLOBIN CONC 33.7 GM/DL 32.2-35.5 (BEAKER) (test code = 752) RED CELL DISTRIBUTION WIDTH 13.2 % 11.7-14.4 (BEAKER) (test code = 412) PLATELET COUNT (BEAKER) (test 233 K/CU MM 150-450 code = 756) MEAN PLATELET VOLUME (BEAKER) 10.5 fL 9.4-12.3 (test code = 754) NUCLEATED RED BLOOD CELLS 0 /100 WBC 0-0 (BEAKER) (test code = 413) TACROLIMUS [id number] 13:47:00 Test Item Value Reference Range Interpretation Comments TACROLIMUS BLOOD 9.6 ng/mL 10.0-20.0 L Test perfor med on Jaffe (BEAKER) (test code Architec t Immunoassay = 657) system with Chemiluminescen t Microparticle I mmunoassay (CMIA) technolo gy. [place] Tester ID - AAHAMIDURINALYSIS W/ REFLEX URINE [id number] 12:04:00 Test Item Value Reference Range Interpretation [...] 463) RBC UA (BEAKER) (test code = 0 /HPF 519) WBC UA (BEAKER) (test code = < /HPF 520) SQUAMOUS EPITHELIAL (BEAKER) 4 /HPF (test code = 516) SOURCE(BEAKER) (test code = 5983) Brinell Tester ID - [auto]Brinell Tester ID - [id number] 11:38:00 Test Item Value Reference Range Interpretation Comments PHOSPHORUS (BEAKER) (test code = 3.3 mg/dL 2.3-4.7 604) Brinell Tester ID - NAYAN CCOMPREHENSIVE METABOLIC [id number] 11:38:00 Test Item Value Reference Range Interpretation Comments TOTAL PROTEIN 7.5 gm/dL 6.0-8.3 (BEAKER) (test code = 770) ALBUMIN (BEAKER) 4.0 g/dL 3.5-5.0 (test code = 1145) ALKALINE PHOSPHATASE 122 U/L 40-150 (BEAKER) (test code = 346) BILIRUBIN TOTAL 0.4 mg/dL 0.2-1.2 (BEAKER) (test code = 377) SODIUM (BEAKER) (test 140 meq/L 136-145 code = 381) POTASSIUM (BEAKER) 4.5 meq/L 3.5-5.1 (test code = 379) CHLORIDE (BEAKER) 108 meq/L 98-107 H (test code = 382) CO2 (BEAKER) (test 19 meq/L 22-29 L code = 355) BLOOD UREA NITROGEN 20 mg/dL 7-21 (BEAKER) (test code = 354) CREATININE (BEAKER) 1.28 mg/dL 0.57-1.25 H (test code = 358) GLUCOSE RANDOM 186 mg/dL 70-105 H (BEAKER) (test code = 652) CALCIUM (BEAKER) 9.9 mg/dL 8.4-10.2 (test code = 697) AST (SGOT) (BEAKER) 30 U/L 5-34 (test code = 353) ALT (SGPT) (BEAKER) 38 U/L 6-55 (test code = 347) EGFR (BEAKER) (test 44 mL/min/1.73 ESTIMA BRII GFR IS code = 1092) sq m NOT ACCURATE CREATININE CLEARANCE IN PREDICTING GLOMERULAR FILTRATION RATE . ESTIMATED GFR I S NOT APPLICABLE FOR DIALYSIS PATIEN TS. Brinell Tester ID - MAY CSpecimen slightly lipemicCBC W/PLT COUNT & AUTO [id number] 14:51:00 Test Item Value Reference Range Interpretation Comments WHITE BLOOD CELL COUNT (BEAKER) 3.0 K/ L 3.5-10.5 L (test code = 775) RED BLOOD CELL COUNT (BEAKER) 4.12 M/ L 3.93-5.22 (test code = 761) HEMOGLOBIN (BEAKER) (test code = 13.3 GM/DL 11.2-15.7 410) HEMATOCRIT (BEAKER) (test code = 40.1 % 34.1-44.9 411) MEAN CORPUSCULAR VOLUME (BEAKER) 97.3 fL 79.4-94.8 H (test code = 753) MEAN CORPUSCULAR HEMOGLOBIN 32.3 pg 25.6-32.2 H (BEAKER) (test code = 751) MEAN CORPUSCULAR HEMOGLOBIN CONC 33.2 GM/DL 32.2-35.5 (BEAKER) (test code = 752) RED CELL DISTRIBUTION WIDTH 13.3 % 11.7-14.4 (BEAKER) (test code = 412) PLATELET COUNT (BEAKER) (test 264 K/CU MM 150-450 code = 756) MEAN PLATELET VOLUME (BEAKER) 10.1 fL 9.4-12.3 (test code = 754) NUCLEATED RED BLOOD CELLS 0 /100 WBC 0-0 (BEAKER) (test code = 413) (CELLAVISION MANUAL DIFF)2020-04-25 14:51:00 Test Item Value Reference Range Interpretation Comments NEUTROPHILS - REL 51 % (CELLAVISION)(BEAKER) (test code = 2816) LYMPHOCYTES - REL 7 % (CELLAVISION)(BEAKER) (test code = 2817) MONOCYTES - REL 10 % (CELLAVISION)(BEAKER) (test code = 2818) EOSINOPHILS - REL 5 % (CELLAVISION)(BEAKER) (test code = 2819) BANDS - REL (CELLAVISION)(BEAKER) 21 % 0-10 H (test code = 2826) ATYPICAL LYMPHOCYTES - REL 5 % 0-0 H (CELLAVISION)(BEAKER) (test code = 2829) NEUTROPHILS - ABS 1.53 K/ul 1.56-6.13 L (CELLAVISION)(BEAKER) (test code = 2830) LYMPHOCYTES - ABS 0.21 K/ul 1.18-3.74 L (CELLAVISION)(BEAKER) (test code = 2831) MONOCYTES - ABS 0.30 K/uL 0.24-0.36 (CELLAVISION)(BEAKER) (test code = 2832) EOSINOPHILS - ABS 0.15 K/uL 0.04-0.36 (CELLAVISION)(BEAKER) (test code = 2834) BANDS - ABS (CELLAVISION)(BEAKER) 0.63 K/uL 0.00-0.80 (test code = 2840) ATYPICAL LYMPHOCYTES - ABS 0.15 K/uL 0.00-0.00 H (CELLAVISION)(BEAKER) (test code = 2858) TOTAL COUNTED (BEAKER) (test code 100 = 1351) MANUAL NRBC PER 100 CELLS 1 /100 WBC 0-0 H (BEAKER) (test code = 1353) WBC MORPHOLOGY (BEAKER) (test Normal code = 487) PLT MORPHOLOGY (BEAKER) (test Normal code = 486) POLYCHROMATOPHILLIC RBCS(BEAKER) 1+ few (test code = 478) ANISOCYTOSIS (BEAKER) (test code 1+ few = 961) MICROCYTES (BEAKER) (test code = 2+ moderate 965) TEAR DROP CELLS (BEAKER) (test 1+ few code = 481) ARTIFACT (CELLAVISION)(BEAKER) Present (test code = 3432) PLATELET CONCENTRATION Adequate (CELLAVISION)(BEAKER) (test code = 3438) Brinell Tester ID - Maria Luz Lamas comments: Slide comments:PROTEIN, RANDOM URINE 2020-04-25 13:54:00 Test Item Value Reference Range Interpretation Comments PROTEIN, URINE (BEAKER) (test code 255 mg/dL 0-14 H = 1569) Brinell Tester ID - NABEEL FOperator ID - NABEEL FTACROLIMUS [id number] 13:39:00 Test Item Value Reference Range Interpretation Comments TACROLIMUS BLOOD (BEAKER) (test 9.5 ng/mL 10.0-20.0 L code = 657) Brinell Tester ID - MAYRA WURINALYSIS W/ REFLEX URINE [id number] 12:07:00 Test Item Value Reference Range Interpretation Comments COLOR (BEAKER) (test code = 470) Light Yellow CLARITY (BEAKER) (test code = Clear 469) SPECIFIC GRAVITY UA (BEAKER) 1.012 1.001-1.035 (test code = 468) PH UA (BEAKER) (test code = 467) 6.5 5.0-8.0 PROTEIN UA (BEAKER) (test code = 300 mg/dL Negative A 464) GLUCOSE UA (BEAKER) (test code = 50 mg/dL Negative A 365) KETONES UA (BEAKER) [...] BACTERIA (BEAKER) (test code = Occasional 517) MUCUS (BEAKER) (test code = Occasional 1574) SQUAMOUS EPITHELIAL (BEAKER) 2 /HPF (test code = 516) SOURCE(BEAKER) (test code = 2795) Brinell Tester ID - [auto]Brinell Tester ID - techCOMPREHENSIVE METABOLIC [id number] 11:44:00 Test Item Value Reference Range Interpretation Comments TOTAL PROTEIN 7.8 gm/dL 6.0-8.3 (BEAKER) (test code = 770) ALBUMIN (BEAKER) 4.3 g/dL 3.5-5.0 (test code = 1145) ALKALINE PHOSPHATASE 121 U/L 40-150 (BEAKER) (test code = 346) BILIRUBIN TOTAL 0.6 mg/dL 0.2-1.2 (BEAKER) (test code = 377) SODIUM (BEAKER) (test 140 meq/L 136-145 code = 381) POTASSIUM (BEAKER) 4.3 meq/L 3.5-5.1 (test code = 379) CHLORIDE (BEAKER) 107 meq/L 98-107 (test code = 382) CO2 (BEAKER) (test 24 meq/L 22-29 code = 355) BLOOD UREA NITROGEN 21 mg/dL 7-21 (BEAKER) (test code = 354) CREATININE (BEAKER) 1.28 mg/dL 0.57-1.25 H (test code = 358) GLUCOSE RANDOM 190 mg/dL 70-105 H (BEAKER) (test code = 652) CALCIUM (BEAKER) 10.0 mg/dL 8.4-10.2 (test code = 697) AST (SGOT) (BEAKER) 28 U/L 5-34 (test code = 353) ALT (SGPT) (BEAKER) 40 U/L 6-55 (test code = 347) EGFR (BEAKER) (test 44 mL/min/1.73 ESTIMA BRII GFR IS code = 1092) sq m NOT ACCURATE CREATININE CLEARANCE IN PREDICTING GLOMERULAR FILTRATION RATE . ESTIMATED GFR I S NOT APPLICABLE FOR DIALYSIS PATIEN TS. Brinell Tester ID - NAYAN [id number] 11:44:00 Test Item Value Reference Range Interpretation Comments PHOSPHORUS (BEAKER) (test code = 3.6 mg/dL 2.3-4.7 604) Brinell Tester ID - NAYAN CCREATININE, RANDOM [id number] 11:38:00 Test Item Value Reference Range Interpretation Comments CREATININE URINE (BEAKER) (test 46.2 mg/dL code = 375) Reference Range: No NormalsOperator ID - NABEEL FBK VIRUS PCR, PLASMA 2020-04-17 11:30:00 Test Item Value Reference Range Interpretation Comments BK VIRUS, PLASMA, POS Testin g done at [facility] (BEAKER) (test code = Diagno stics 1820) BK VIRUS, PLASMA, NEG Testin g done at [facility] (BEAKER) (test code = Diagno stics 2145) URINALYSIS W/ REFLEX URINE [id number] 11:21:00 Test Item Value Reference Range Interpretation Comments COLOR (BEAKER) (test code = 470) Light Yellow CLARITY (BEAKER) (test code = Clear 469) SPECIFIC GRAVITY UA (BEAKER) 1.012 1.001-1.035 (test code = 468) PH UA (BEAKER) (test code = 467) 6.5 5.0-8.0 PROTEIN UA (BEAKER) (test code = 300 mg/dL Negative A 464) GLUCOSE UA (BEAKER) (test code = 300 mg/dL Negative A 365) KETONES UA (BEAKER) [...] code = Rare 517) SQUAMOUS EPITHELIAL (BEAKER) 3 /HPF (test code = 516) HYALINE CASTS (BEAKER) (test 3 /LPF code = 514) SOURCE(BEAKER) (test code = 6540) Brinell Tester ID - [auto]Brinell Tester ID - techTACROLIMUS [id number] 11:04:00 Test Item Value Reference Range Interpretation Comments TACROLIMUS BLOOD (BEAKER) (test 8.9 ng/mL 10.0-20.0 L code = 657) Brinell Tester ID - AAHAMIDCBC W/PLT COUNT & AUTO [id number] 10:42:00 Test Item Value Reference Range Interpretation Comments WHITE BLOOD CELL COUNT (BEAKER) 2.8 K/ L 3.5-10.5 L (test code = 775) RED BLOOD CELL COUNT (BEAKER) 3.96 M/ L 3.93-5.22 (test code = 761) HEMOGLOBIN (BEAKER) (test code = 12.8 GM/DL 11.2-15.7 410) HEMATOCRIT (BEAKER) (test code = 39.0 % 34.1-44.9 411) MEAN CORPUSCULAR VOLUME (BEAKER) 98.5 fL 79.4-94.8 H (test code = 753) MEAN CORPUSCULAR HEMOGLOBIN 32.3 pg 25.6-32.2 H (BEAKER) (test code = 751) MEAN CORPUSCULAR HEMOGLOBIN CONC 32.8 GM/DL 32.2-35.5 (BEAKER) (test code = 752) RED CELL DISTRIBUTION WIDTH 13.4 % 11.7-14.4 (BEAKER) (test code = 412) PLATELET COUNT (BEAKER) (test 248 K/CU MM 150-450 code = 756) MEAN PLATELET VOLUME (BEAKER) 9.9 fL 9.4-12.3 (test code = 754) NUCLEATED RED BLOOD CELLS 0 /100 WBC 0-0 (BEAKER) (test code = 413) (CELLAVISION MANUAL DIFF)2020-04-17 10:42:00 Test Item Value Reference Range Interpretation Comments NEUTROPHILS - REL 49 % (CELLAVISION)(BEAKER) (test code = 2816) LYMPHOCYTES - REL 11 % (CELLAVISION)(BEAKER) (test code = 2817) MONOCYTES - REL 13 % (CELLAVISION)(BEAKER) (test code = 2818) EOSINOPHILS - REL 7 % (CELLAVISION)(BEAKER) (test code = 2819) BASOPHILS - REL 3 % (CELLAVISION)(BEAKER) (test code = 2820) METAMYELOCYTES - REL 1 % 0-0 H (CELLAVISION)(BEAKER) (test code = 2821) BANDS - REL (CELLAVISION)(BEAKER) 15 % 0-10 H (test code = 2826) ATYPICAL LYMPHOCYTES - REL 1 % 0-0 H (CELLAVISION)(BEAKER) (test code = 2829) NEUTROPHILS - ABS 1.37 K/ul 1.56-6.13 L (CELLAVISION)(BEAKER) (test code = 2830) LYMPHOCYTES - ABS 0.31 K/ul 1.18-3.74 L (CELLAVISION)(BEAKER) (test code = 2831) MONOCYTES - ABS 0.36 K/uL 0.24-0.36 (CELLAVISION)(BEAKER) (test code = 2832) EOSINOPHILS - ABS 0.20 K/uL 0.04-0.36 (CELLAVISION)(BEAKER) (test code = 2834) BASOPHILS - ABS 0.08 K/uL 0.01-0.08 (CELLAVISION)(BEAKER) (test code = 2835) METAMYELOCYTES - ABS 0.03 K/uL 0.00-0.00 H (CELLAVISION)(BEAKER) (test code = 2836) BANDS - ABS (CELLAVISION)(BEAKER) 0.42 K/uL 0.00-0.80 (test code = 2840) ATYPICAL LYMPHOCYTES - ABS 0.03 K/uL 0.00-0.00 H (CELLAVISION)(BEAKER) (test code = 1578) TOTAL COUNTED (BEAKER) (test code = 100 1351) WBC MORPHOLOGY (BEAKER) (test code Normal = 487) PLT MORPHOLOGY (BEAKER) (test code Normal = 486) POIKILOCYTES (BEAKER) (test code = 1+ few 966) ARTIFACT (CELLAVISION)(BEAKER) Present (test code = 3432) PLATELET CONCENTRATION Adequate (CELLAVISION)(BEAKER) (test code = 3438) Brinell Tester ID - Raya OverholtUser comments: Slide comments:[id number] 10:34:00 Test Item Value Reference Range Interpretation Comments PHOSPHORUS (BEAKER) (test code = 3.3 mg/dL 2.3-4.7 604) Brinell Tester ID - NABEEL FCOMPREHENSIVE METABOLIC [id number] 10:34:00 Test Item Value Reference Range Interpretation Comments TOTAL PROTEIN 7.8 gm/dL 6.0-8.3 (BEAKER) (test code = 770) ALBUMIN (BEAKER) 4.3 g/dL 3.5-5.0 (test code = 1145) ALKALINE PHOSPHATASE 140 U/L 40-150 (BEAKER) (test code = 346) BILIRUBIN TOTAL 0.4 mg/dL 0.2-1.2 (BEAKER) (test code = 377) SODIUM (BEAKER) (test 135 meq/L 136-145 L code = 381) POTASSIUM (BEAKER) 4.6 meq/L 3.5-5.1 (test code = 379) CHLORIDE (BEAKER) 106 meq/L 98-107 (test code = 382) CO2 (BEAKER) (test 18 meq/L 22-29 L code = 355) BLOOD UREA NITROGEN 21 mg/dL 7-21 (BEAKER) (test code = 354) CREATININE (BEAKER) 1.36 mg/dL 0.57-1.25 H (test code = 358) GLUCOSE RANDOM 252 mg/dL 70-105 H (BEAKER) (test code = 652) CALCIUM (BEAKER) 9.4 mg/dL 8.4-10.2 (test code = 697) AST (SGOT) (BEAKER) 24 U/L 5-34 (test code = 353) ALT (SGPT) (BEAKER) 31 U/L 6-55 (test code = 347) EGFR (BEAKER) (test 41 mL/min/1.73 ESTIMA BRII GFR IS code = 1092) sq m NOT ACCURATE CREATININE CLEARANCE IN PREDICTING GLOMERULAR FILTRATION RATE . ESTIMATED GFR I S NOT APPLICABLE FOR DIALYSIS PATIEN TS. Brinell Tester ID - NABEEL FSpecimen slightly lipemic(CELLAVISION MANUAL DIFF) 2020-04-11 15:57:00 Test Item Value Reference Range Interpretation Comments NEUTROPHILS - REL 67 % (CELLAVISION)(BEAKER) (test code = 2816) LYMPHOCYTES - REL 6 % (CELLAVISION)(BEAKER) (test code = 2817) MONOCYTES - REL 6 % (CELLAVISION)(BEAKER) (test code = 2818) EOSINOPHILS - REL 10 % (CELLAVISION)(BEAKER) (test code = 2819) BASOPHILS - REL 1 % (CELLAVISION)(BEAKER) (test code = 2820) METAMYELOCYTES - REL 1 % 0-0 H (CELLAVISION)(BEAKER) (test code = 2821) BANDS - REL (CELLAVISION)(BEAKER) 5 % 0-10 (test code = 2826) ATYPICAL LYMPHOCYTES - REL 3 % 0-0 H (CELLAVISION)(BEAKER) (test code = 2829) NEUTROPHILS - ABS 1.81 K/ul 1.56-6.13 (CELLAVISION)(BEAKER) (test code = 2830) LYMPHOCYTES - ABS 0.16 K/ul 1.18-3.74 L (CELLAVISION)(BEAKER) (test code = 2831) MONOCYTES - ABS 0.16 K/uL 0.24-0.36 L (CELLAVISION)(BEAKER) (test code = 2832) EOSINOPHILS - ABS 0.27 K/uL 0.04-0.36 (CELLAVISION)(BEAKER) (test code = 2834) BASOPHILS - ABS 0.03 K/uL 0.01-0.08 (CELLAVISION)(BEAKER) (test code = 2835) METAMYELOCYTES - ABS 0.03 K/uL 0.00-0.00 H (CELLAVISION)(BEAKER) (test code = 2836) BANDS - ABS (CELLAVISION)(BEAKER) 0.14 K/uL 0.00-0.80 (test code = 2840) ATYPICAL LYMPHOCYTES - ABS 0.08 K/uL 0.00-0.00 H (CELLAVISION)(BEAKER) (test code = 2858) TOTAL COUNTED (BEAKER) (test code = 100 1351) GIANT PLATELETS (BEAKER) (test code Present = 313) HYPERSEGMENTATION Present (CELLAVISION)(BEAKER) (test code = 3445) ANISOCYTOSIS (BEAKER) (test code = 1+ few 961) MICROCYTES (BEAKER) (test code = 1+ few 965) ARTIFACT (CELLAVISION)(BEAKER) Present (test code = 3432) PLATELET CONCENTRATION Adequate (CELLAVISION)(BEAKER) (test code = 3438) Brinell Tester ID - Harrison comments: Slide comments:CBC W/PLT COUNT & AUTO [id number] 15:15:00 Test Item Value Reference Range Interpretation Comments WHITE BLOOD CELL COUNT (BEAKER) 2.7 K/ L 3.5-10.5 L (test code = 775) RED BLOOD CELL COUNT (BEAKER) 3.76 M/ L 3.93-5.22 L (test code = 761) HEMOGLOBIN (BEAKER) (test code = 12.0 GM/DL 11.2-15.7 410) HEMATOCRIT (BEAKER) (test code = 37.1 % 34.1-44.9 411) MEAN CORPUSCULAR VOLUME (BEAKER) 98.7 fL 79.4-94.8 H (test code = 753) MEAN CORPUSCULAR HEMOGLOBIN 31.9 pg 25.6-32.2 (BEAKER) (test code = 751) MEAN CORPUSCULAR HEMOGLOBIN CONC 32.3 GM/DL 32.2-35.5 (BEAKER) (test code = 752) RED CELL DISTRIBUTION WIDTH 13.6 % 11.7-14.4 (BEAKER) (test code = 412) PLATELET COUNT (BEAKER) (test 249 K/CU MM 150-450 code = 756) MEAN PLATELET VOLUME (BEAKER) 9.7 fL 9.4-12.3 (test code = 754) NUCLEATED RED BLOOD CELLS 0 /100 WBC 0-0 (BEAKER) (test code = 413) TACROLIMUS [id number] 12:44:00 Test Item Value Reference Range Interpretation Comments TACROLIMUS BLOOD (BEAKER) (test 15.8 ng/mL 10.0-20.0 code = 657) Brinell Tester ID - MAYRA WCOMPREHENSIVE METABOLIC [id number] 10:27:00 Test Item Value Reference Range Interpretation Comments TOTAL PROTEIN 7.2 gm/dL 6.0-8.3 (BEAKER) (test code = 770) ALBUMIN (BEAKER) 4.1 g/dL 3.5-5.0 (test code = 1145) ALKALINE PHOSPHATASE 123 U/L 40-150 (BEAKER) (test code = 346) BILIRUBIN TOTAL 0.3 mg/dL 0.2-1.2 (BEAKER) (test code = 377) SODIUM (BEAKER) (test 142 meq/L 136-145 code = 381) POTASSIUM (BEAKER) 4.2 meq/L 3.5-5.1 (test code = 379) CHLORIDE (BEAKER) 109 meq/L 98-107 H (test code = 382) CO2 (BEAKER) (test 21 meq/L 22-29 L code = 355) BLOOD UREA NITROGEN 18 mg/dL 7-21 (BEAKER) (test code = 354) CREATININE (BEAKER) 1.26 mg/dL 0.57-1.25 H (test code = 358) GLUCOSE RANDOM 195 mg/dL 70-105 H (BEAKER) (test code = 652) CALCIUM (BEAKER) 9.6 mg/dL 8.4-10.2 (test code = 697) AST (SGOT) (BEAKER) 21 U/L 5-34 (test code = 353) ALT (SGPT) (BEAKER) 29 U/L 6-55 (test code = 347) EGFR (BEAKER) (test 45 mL/min/1.73 ESTIMA BRII GFR IS code = 1092) sq m NOT ACCURATE CREATININE CLEARANCE IN PREDICTING GLOMERULAR FILTRATION RATE . ESTIMATED GFR I S NOT APPLICABLE FOR DIALYSIS PATIEN TS. Brinell Tester ID - [id number] 10:27:00 Test Item Value Reference Range Interpretation Comments PHOSPHORUS (BEAKER) (test code = 3.5 mg/dL 2.3-4.7 604) Brinell Tester ID - RMURINALYSIS W/ REFLEX URINE [id number] 10:13:00 Test Item Value Reference Range Interpretation Comments COLOR (BEAKER) (test code = 470) Light Yellow CLARITY (BEAKER) (test code = Clear 469) SPECIFIC GRAVITY UA (BEAKER) 1.012 1.001-1.035 (test code = 468) PH UA [...] 463) RBC UA (BEAKER) (test code = 5 /HPF 519) WBC UA (BEAKER) (test code = 2 /HPF 520) BACTERIA (BEAKER) (test code = Occasional 517) SQUAMOUS EPITHELIAL (BEAKER) < /HPF (test code = 516) CASTS (BEAKER) (test code = 2 /LPF 1579) SOURCE(BEAKER) (test code = 2795) Brinell Tester ID - [auto]Brinell Tester ID - MaggiCROLIMUS [id number] 15:20:00 Test Item Value Reference Range Interpretation Comments TACROLIMUS BLOOD (BEAKER) (test 8.7 ng/mL 10.0-20.0 L code = 657) Brinell Tester ID - JAMIE MCBC W/PLT COUNT & AUTO [id number] 14:45:00 Test Item Value Reference Range Interpretation Comments WHITE BLOOD CELL COUNT (BEAKER) 3.1 K/ L 3.5-10.5 L (test code = 775) RED BLOOD CELL COUNT (BEAKER) 3.98 M/ L 3.93-5.22 (test code = 761) HEMOGLOBIN (BEAKER) (test code = 12.5 GM/DL 11.2-15.7 410) HEMATOCRIT (BEAKER) (test code = 39.0 % 34.1-44.9 411) MEAN CORPUSCULAR VOLUME (BEAKER) 98.0 fL 79.4-94.8 H (test code = 753) MEAN CORPUSCULAR HEMOGLOBIN 31.4 pg 25.6-32.2 (BEAKER) (test code = 751) MEAN CORPUSCULAR HEMOGLOBIN CONC 32.1 GM/DL 32.2-35.5 L (BEAKER) (test code = 752) RED CELL DISTRIBUTION WIDTH 13.6 % 11.7-14.4 (BEAKER) (test code = 412) PLATELET COUNT (BEAKER) (test 291 K/CU MM 150-450 code = 756) MEAN PLATELET VOLUME (BEAKER) 10.0 fL 9.4-12.3 (test code = 754) NUCLEATED RED BLOOD CELLS 0 /100 WBC 0-0 (BEAKER) (test code = 413) (CELLAVISION MANUAL DIFF)2020-04-04 14:45:00 Test Item Value Reference Range Interpretation Comments NEUTROPHILS - REL 70 % (CELLAVISION)(BEAKER) (test code = 2816) LYMPHOCYTES - REL 9 % (CELLAVISION)(BEAKER) (test code = 2817) MONOCYTES - REL 7 % (CELLAVISION)(BEAKER) (test code = 2818) EOSINOPHILS - REL 7 % (CELLAVISION)(BEAKER) (test code = 2819) BASOPHILS - REL 1 % (CELLAVISION)(BEAKER) (test code = 2820) BANDS - REL (CELLAVISION)(BEAKER) 3 % 0-10 (test code = 2826) ATYPICAL LYMPHOCYTES - REL 3 % 0-0 H (CELLAVISION)(BEAKER) (test code = 2829) NEUTROPHILS - ABS 2.17 K/ul 1.56-6.13 (CELLAVISION)(BEAKER) (test code = 2830) LYMPHOCYTES - ABS 0.28 K/ul 1.18-3.74 L (CELLAVISION)(BEAKER) (test code = 2831) MONOCYTES - ABS 0.22 K/uL 0.24-0.36 L (CELLAVISION)(BEAKER) (test code = 2832) EOSINOPHILS - ABS 0.22 K/uL 0.04-0.36 (CELLAVISION)(BEAKER) (test code = 2834) BASOPHILS - ABS 0.03 K/uL 0.01-0.08 (CELLAVISION)(BEAKER) (test code = 2835) BANDS - ABS (CELLAVISION)(BEAKER) 0.09 K/uL 0.00-0.80 (test code = 2840) ATYPICAL LYMPHOCYTES - ABS 0.09 K/uL 0.00-0.00 H (CELLAVISION)(BEAKER) (test code = 5088) TOTAL COUNTED (BEAKER) (test code = 100 1351) RBC MORPHOLOGY (BEAKER) (test code Normal = 762) SMUDGE CELLS (BEAKER) (test code = Present 1371) GIANT PLATELETS (BEAKER) (test code Present = 313) ARTIFACT (CELLAVISION)(BEAKER) Present (test code = 1572) PLATELET CONCENTRATION Adequate (CELLAVISION)(BEAKER) (test code = 3438) Brinell Tester ID - Alicia Benton comments: Slide comments:URINALYSIS W/ REFLEX URINE [id number] 11:30:00 Test Item Value Reference Range Interpretation Comments COLOR (BEAKER) (test code = 470) Light Yellow CLARITY (BEAKER) (test code = Clear 469) SPECIFIC GRAVITY UA (BEAKER) 1.015 1.001-1.035 (test code = 468) PH UA (BEAKER) (test code = 467) 6.0 5.0-8.0 PROTEIN UA (BEAKER) (test code = 300 mg/dL Negative A 464) GLUCOSE UA (BEAKER) (test code = 100 mg/dL Negative A 365) KETONES UA (BEAKER) [...] (BEAKER) (test code = 2 /HPF 520) SOURCE(BEAKER) (test code = 2795) Brinell Tester ID - [auto]Brinell Tester ID - [id number] 11:11:00 Test Item Value Reference Range Interpretation Comments PHOSPHORUS (BEAKER) (test code = 3.1 mg/dL 2.3-4.7 604) Brinell Tester ID - NABEEL FCOMPREHENSIVE METABOLIC [id number] 11:11:00 Test Item Value Reference Range Interpretation Comments TOTAL PROTEIN 8.0 gm/dL 6.0-8.3 (BEAKER) (test code = 770) ALBUMIN (BEAKER) 4.6 g/dL 3.5-5.0 (test code = 1145) ALKALINE PHOSPHATASE 132 U/L 40-150 (BEAKER) (test code = 346) BILIRUBIN TOTAL 0.3 mg/dL 0.2-1.2 (BEAKER) (test code = 377) SODIUM (BEAKER) (test 138 meq/L 136-145 code = 381) POTASSIUM (BEAKER) 4.8 meq/L 3.5-5.1 (test code = 379) CHLORIDE (BEAKER) 106 meq/L 98-107 (test code = 382) CO2 (BEAKER) (test 22 meq/L 22-29 code = 355) BLOOD UREA NITROGEN 23 mg/dL 7-21 H (BEAKER) (test code = 354) CREATININE (BEAKER) 1.42 mg/dL 0.57-1.25 H (test code = 358) GLUCOSE RANDOM 234 mg/dL 70-105 H (BEAKER) (test code = 652) CALCIUM (BEAKER) 10.2 mg/dL 8.4-10.2 (test code = 697) AST (SGOT) (BEAKER) 23 U/L 5-34 (test code = 353) ALT (SGPT) (BEAKER) 25 U/L 6-55 (test code = 347) EGFR (BEAKER) (test 39 mL/min/1.73 ESTIMA BRII GFR IS code = 1092) sq m NOT ACCURATE CREATININE CLEARANCE IN PREDICTING GLOMERULAR FILTRATION RATE . ESTIMATED GFR I S NOT APPLICABLE FOR DIALYSIS PATIEN TS. Brinell Tester ID - NABEEL FSpecimen slightly lipemicCBC W/PLT COUNT & AUTO [id number] 13:28:00 Test Item Value Reference Range Interpretation Comments WHITE BLOOD CELL COUNT (BEAKER) 2.5 K/ L 3.5-10.5 L (test code = 775) RED BLOOD CELL COUNT (BEAKER) 3.78 M/ L 3.93-5.22 L (test code = 761) HEMOGLOBIN (BEAKER) (test code = 12.0 GM/DL 11.2-15.7 410) HEMATOCRIT (BEAKER) (test code = 37.0 % 34.1-44.9 411) MEAN CORPUSCULAR VOLUME (BEAKER) 97.9 fL 79.4-94.8 H (test code = 753) MEAN CORPUSCULAR HEMOGLOBIN 31.7 pg 25.6-32.2 (BEAKER) (test code = 751) MEAN CORPUSCULAR HEMOGLOBIN CONC 32.4 GM/DL 32.2-35.5 (BEAKER) (test code = 752) RED CELL DISTRIBUTION WIDTH 13.9 % 11.7-14.4 (BEAKER) (test code = 412) PLATELET COUNT (BEAKER) (test 274 K/CU MM 150-450 code = 756) MEAN PLATELET VOLUME (BEAKER) 10.0 fL 9.4-12.3 (test code = 754) NUCLEATED RED BLOOD CELLS 0 /100 WBC 0-0 (BEAKER) (test code = 413) (CELLAVISION MANUAL DIFF)2020-03-28 13:28:00 Test Item Value Reference Range Interpretation Comments NEUTROPHILS - REL 59 % (CELLAVISION)(BEAKER) (test code = 2816) LYMPHOCYTES - REL 13 % (CELLAVISION)(BEAKER) (test code = 2817) MONOCYTES - REL 11 % (CELLAVISION)(BEAKER) (test code = 2818) EOSINOPHILS - REL 4 % (CELLAVISION)(BEAKER) (test code = 2819) BASOPHILS - REL 2 % (CELLAVISION)(BEAKER) (test code = 2820) BANDS - REL (CELLAVISION)(BEAKER) 11 % 0-10 H (test code = 2826) NEUTROPHILS - ABS 1.48 K/ul 1.56-6.13 L (CELLAVISION)(BEAKER) (test code = 2830) LYMPHOCYTES - ABS 0.33 K/ul 1.18-3.74 L (CELLAVISION)(BEAKER) (test code = 2831) MONOCYTES - ABS 0.28 K/uL 0.24-0.36 (CELLAVISION)(BEAKER) (test code = 2832) EOSINOPHILS - ABS 0.10 K/uL 0.04-0.36 (CELLAVISION)(BEAKER) (test code = 2834) BASOPHILS - ABS 0.05 K/uL 0.01-0.08 (CELLAVISION)(BEAKER) (test code = 2835) BANDS - ABS (CELLAVISION)(BEAKER) 0.28 K/uL 0.00-0.80 (test code = 2840) TOTAL COUNTED (BEAKER) (test code = 100 1351) WBC MORPHOLOGY (BEAKER) (test code Normal = 487) GIANT PLATELETS (BEAKER) (test code Present = 313) OVALOCYTES (BEAKER) (test code = 1+ few 477) TEAR DROP CELLS (BEAKER) (test code 1+ few = 481) ARTIFACT (CELLAVISION)(BEAKER) Present (test code = 1472) PLATELET CONCENTRATION Adequate (CELLAVISION)(BEAKER) (test code = 3728) Brinell Tester ID - Jamie Velasquez comments: Slide comments:TACROLIMUS LEVEL 2020-03-28 12:09:00 Test Item Value Reference Range Interpretation Comments TACROLIMUS BLOOD (BEAKER) (test 7.9 ng/mL 10.0-20.0 L code = 657) Brinell Tester ID - JMURINALYSIS W/ REFLEX URINE [id number] 10:45:00 Test Item Value Reference Range Interpretation Comments COLOR (BEAKER) (test code = 470) Light Yellow CLARITY (BEAKER) (test code = Clear 469) SPECIFIC GRAVITY UA (BEAKER) 1.011 1.001-1.035 (test code = 468) PH UA (BEAKER) (test code = 467) 6.5 5.0-8.0 PROTEIN UA (BEAKER) (test code = 200 mg/dL Negative A 464) GLUCOSE UA (BEAKER) (test code = 500 mg/dL Negative A 365) KETONES UA (BEAKER) [...] 463) RBC UA (BEAKER) (test code = 2 /HPF 519) WBC UA (BEAKER) (test code = 1 /HPF 520) BACTERIA (BEAKER) (test code = Occasional 517) SQUAMOUS EPITHELIAL (BEAKER) 2 /HPF (test code = 516) SOURCE(BEAKER) (test code = 6028) Brinell Tester ID - [auto]Brinell Tester ID - techCOMPREHENSIVE METABOLIC [id number] 10:33:00 Test Item Value Reference Range Interpretation Comments TOTAL PROTEIN 7.9 gm/dL 6.0-8.3 (BEAKER) (test code = 770) ALBUMIN (BEAKER) 4.6 g/dL 3.5-5.0 (test code = 1145) ALKALINE PHOSPHATASE 108 U/L 40-150 (BEAKER) (test code = 346) BILIRUBIN TOTAL 0.4 mg/dL 0.2-1.2 (BEAKER) (test code = 377) SODIUM (BEAKER) (test 135 meq/L 136-145 L code = 381) POTASSIUM (BEAKER) 4.8 meq/L 3.5-5.1 (test code = 379) CHLORIDE (BEAKER) 105 meq/L 98-107 (test code = 382) CO2 (BEAKER) (test 22 meq/L 22-29 code = 355) BLOOD UREA NITROGEN 15 mg/dL 7-21 (BEAKER) (test code = 354) CREATININE (BEAKER) 1.44 mg/dL 0.57-1.25 H (test code = 358) GLUCOSE RANDOM 236 mg/dL 70-105 H (BEAKER) (test code = 652) CALCIUM (BEAKER) 9.9 mg/dL 8.4-10.2 (test code = 697) AST (SGOT) (BEAKER) 20 U/L 5-34 (test code = 353) ALT (SGPT) (BEAKER) 22 U/L 6-55 (test code = 347) EGFR (BEAKER) (test 39 mL/min/1.73 ESTIMA RBII GFR IS code = 1092) sq m NOT ACCURATE CREATININE CLEARANCE IN PREDICTING GLOMERULAR FILTRATION RATE . ESTIMATED GFR I S NOT APPLICABLE FOR DIALYSIS PATIEN TS. Brinell Tester ID - NAEBEL [id number] 10:33:00 Test Item Value Reference Range Interpretation Comments PHOSPHORUS (BEAKER) (test code = 3.0 mg/dL 2.3-4.7 604) Brinell Tester ID - NABEEL FTACROLIMUS [id number] 10:29:00 Test Item Value Reference Range Interpretation Comments TACROLIMUS BLOOD (BEAKER) (test 15.8 ng/mL 10.0-20.0 code = 657) Brinell Tester ID - SUMMERHAMIDCOMPREHENSIVE METABOLIC [id number] 09:46:00 Test Item Value Reference Range Interpretation Comments TOTAL PROTEIN 7.7 gm/dL 6.0-8.3 (BEAKER) (test code = 770) ALBUMIN (BEAKER) 4.5 g/dL 3.5-5.0 (test code = 1145) ALKALINE PHOSPHATASE 105 U/L 40-150 (BEAKER) (test code = 346) BILIRUBIN TOTAL 0.3 mg/dL 0.2-1.2 (BEAKER) (test code = 377) SODIUM (BEAKER) (test 139 meq/L 136-145 code = 381) POTASSIUM (BEAKER) 5.2 meq/L 3.5-5.1 H (test code = 379) CHLORIDE (BEAKER) 110 meq/L 98-107 H (test code = 382) CO2 (BEAKER) (test 18 meq/L 22-29 L code = 355) BLOOD UREA NITROGEN 24 mg/dL 7-21 H (BEAKER) (test code = 354) CREATININE (BEAKER) 1.50 mg/dL 0.57-1.25 H (test code = 358) GLUCOSE RANDOM 233 mg/dL 70-105 H (BEAKER) (test code = 652) CALCIUM (BEAKER) 9.8 mg/dL 8.4-10.2 (test code = 697) AST (SGOT) (BEAKER) 19 U/L 5-34 (test code = 353) ALT (SGPT) (BEAKER) 19 U/L 6-55 (test code = 347) EGFR (BEAKER) (test 37 mL/min/1.73 ESTIMA BRII GFR IS code = 1092) sq m NOT ACCURATE CREATININE CLEARANCE IN PREDICTING GLOMERULAR FILTRATION RATE . ESTIMATED GFR I S NOT APPLICABLE FOR DIALYSIS PATIEN TS. Brinell Tester ID - PIAYA L(CELLAVISION MANUAL DIFF)2020-03-14 15:37:00 Test Item Value Reference Range Interpretation Comments NEUTROPHILS - REL 73 % (CELLAVISION)(BEAKER) (test code = 2816) LYMPHOCYTES - REL 9 % (CELLAVISION)(BEAKER) (test code = 2817) MONOCYTES - REL 4 % (CELLAVISION)(BEAKER) (test code = 2818) EOSINOPHILS - REL 3 % (CELLAVISION)(BEAKER) (test code = 2819) METAMYELOCYTES - REL 5 % 0-0 H (CELLAVISION)(BEAKER) (test code = 2821) MYELOCYTES - REL 1 % 0-0 H (CELLAVISION)(BEAKER) (test code = 2822) PROMYELOCYTES - REL 1 % 0-0 H (CELLAVSION)(BEAKER) (test code = 2825) BANDS - REL (CELLAVISION)(BEAKER) 4 % 0-10 (test code = 2826) ATYPICAL LYMPHOCYTES - REL 1 % 0-0 H (CELLAVISION)(BEAKER) (test code = 2829) NEUTROPHILS - ABS 2.41 K/ul 1.56-6.13 (CELLAVISION)(BEAKER) (test code = 2830) LYMPHOCYTES - ABS 0.30 K/ul 1.18-3.74 L (CELLAVISION)(BEAKER) (test code = 2831) MONOCYTES - ABS 0.13 K/uL 0.24-0.36 L (CELLAVISION)(BEAKER) (test code = 2832) EOSINOPHILS - ABS 0.10 K/uL 0.04-0.36 (CELLAVISION)(BEAKER) (test code = 2834) METAMYELOCYTES - ABS 0.17 K/uL 0.00-0.00 H (CELLAVISION)(BEAKER) (test code = 2836) MYELOCYTES-ABS 0.03 K/uL 0.00-0.00 H (CELLAVISION)(BEAKER) (test code = 2837) PROMYELOCYTES - ABS 0.03 K/uL 0.00-0.00 H (CELLAVISION)(BEAKER) (test code = 2838) BANDS - ABS (CELLAVISION)(BEAKER) 0.13 K/uL 0.00-0.80 (test code = 2840) ATYPICAL LYMPHOCYTES - ABS 0.03 K/uL 0.00-0.00 H (CELLAVISION)(BEAKER) (test code = 3458) TOTAL COUNTED (BEAKER) (test code = 100 1351) RBC MORPHOLOGY (BEAKER) (test code Normal = 762) WBC MORPHOLOGY (BEAKER) (test code Normal = 487) GIANT PLATELETS (BEAKER) (test code Present = 313) ARTIFACT (CELLAVISION)(BEAKER) Present (test code = 3432) PLATELET CONCENTRATION Adequate (CELLAVISION)(BEAKER) (test code = 3438) Brinell Tester ID - AdamParviz comments: Slide comments:CBC W/PLT COUNT & AUTO [id number] 15:36:00 Test Item Value Reference Range Interpretation Comments WHITE BLOOD CELL COUNT (BEAKER) 3.3 K/ L 3.5-10.5 L (test code = 775) RED BLOOD CELL COUNT (BEAKER) 3.60 M/ L 3.93-5.22 L (test code = 761) HEMOGLOBIN (BEAKER) (test code = 11.3 GM/DL 11.2-15.7 410) HEMATOCRIT (BEAKER) (test code = 35.7 % 34.1-44.9 411) MEAN CORPUSCULAR VOLUME (BEAKER) 99.2 fL 79.4-94.8 H (test code = 753) MEAN CORPUSCULAR HEMOGLOBIN 31.4 pg 25.6-32.2 (BEAKER) (test code = 751) MEAN CORPUSCULAR HEMOGLOBIN CONC 31.7 GM/DL 32.2-35.5 L (BEAKER) (test code = 752) RED CELL DISTRIBUTION WIDTH 14.9 % 11.7-14.4 H (BEAKER) (test code = 412) PLATELET COUNT (BEAKER) (test 300 K/CU MM 150-450 code = 756) MEAN PLATELET VOLUME (BEAKER) 9.8 fL 9.4-12.3 (test code = 754) NUCLEATED RED BLOOD CELLS 0 /100 WBC 0-0 (BEAKER) (test code = 413) TACROLIMUS [id number] 14:30:00 Test Item Value Reference Range Interpretation Comments TACROLIMUS BLOOD (BEAKER) (test 27.1 ng/mL 10.0-20.0 H code = 657) Brinell Tester ID - ADMINURINALYSIS W/ REFLEX URINE [id number] 10:39:00 Test Item Value Reference Range Interpretation Comments COLOR (BEAKER) (test code = 470) Light Yellow CLARITY (BEAKER) (test code = Clear 469) SPECIFIC GRAVITY UA (BEAKER) 1.012 1.001-1.035 (test code = 468) PH UA [...] 463) RBC UA (BEAKER) (test code = 2 /HPF 519) WBC UA (BEAKER) (test code = 1 /HPF 520) BACTERIA (BEAKER) (test code = Occasional 517) SQUAMOUS EPITHELIAL (BEAKER) 1 /HPF (test code = 516) HYALINE CASTS (BEAKER) (test 1 /LPF code = 514) SOURCE(BEAKER) (test code = 2795) Brinell Tester ID - [auto]Brinell Tester ID - techCOMPREHENSIVE METABOLIC [id number] 10:13:00 Test Item Value Reference Range Interpretation Comments TOTAL PROTEIN 7.9 gm/dL 6.0-8.3 (BEAKER) (test code = 770) ALBUMIN (BEAKER) 4.6 g/dL 3.5-5.0 (test code = 1145) ALKALINE PHOSPHATASE 112 U/L 40-150 (BEAKER) (test code = 346) BILIRUBIN TOTAL 0.3 mg/dL 0.2-1.2 (BEAKER) (test code = 377) SODIUM (BEAKER) (test 139 meq/L 136-145 code = 381) POTASSIUM (BEAKER) 4.8 meq/L 3.5-5.1 (test code = 379) CHLORIDE (BEAKER) 110 meq/L 98-107 H (test code = 382) CO2 (BEAKER) (test 19 meq/L 22-29 L code = 355) BLOOD UREA NITROGEN 21 mg/dL 7-21 (BEAKER) (test code = 354) CREATININE (BEAKER) 1.45 mg/dL 0.57-1.25 H (test code = 358) GLUCOSE RANDOM 184 mg/dL 70-105 H (BEAKER) (test code = 652) CALCIUM (BEAKER) 9.9 mg/dL 8.4-10.2 (test code = 697) AST (SGOT) (BEAKER) 23 U/L 5-34 (test code = 353) ALT (SGPT) (BEAKER) 21 U/L 6-55 (test code = 347) EGFR (BEAKER) (test 38 mL/min/1.73 ESTIMA BRII GFR IS code = 1092) sq m NOT ACCURATE CREATININE CLEARANCE IN PREDICTING GLOMERULAR FILTRATION RATE . ESTIMATED GFR I S NOT APPLICABLE FOR DIALYSIS PATIEN TS. Brinell Tester ID - [id number] 10:13:00 Test Item Value Reference Range Interpretation Comments PHOSPHORUS (BEAKER) (test code = 2.8 mg/dL 2.3-4.7 604) Brinell Tester ID - ADMINBK VIRUS PCR, [id number] 08:42:00 Test Item Value Reference Range Interpretation Comments BK VIRUS, PLASMA, POS See Sc anned Results (BEAKER) (test code = 1820) BK VIRUS, PLASMA, NEG See Sc anned Results (BEAKER) (test code = 2145) CBC W/PLT COUNT & AUTO [id number] 14:34:00 Test Item Value Reference Range Interpretation Comments WHITE BLOOD CELL COUNT (BEAKER) 4.5 K/ L 3.5-10.5 (test code = 775) RED BLOOD CELL COUNT (BEAKER) 3.36 M/ L 3.93-5.22 L (test code = 761) HEMOGLOBIN (BEAKER) (test code = 10.5 GM/DL 11.2-15.7 L 410) HEMATOCRIT (BEAKER) (test code = 33.0 % 34.1-44.9 L 411) MEAN CORPUSCULAR VOLUME (BEAKER) 98.2 fL 79.4-94.8 H (test code = 753) MEAN CORPUSCULAR HEMOGLOBIN 31.3 pg 25.6-32.2 (BEAKER) (test code = 751) MEAN CORPUSCULAR HEMOGLOBIN CONC 31.8 GM/DL 32.2-35.5 L (BEAKER) (test code = 752) RED CELL DISTRIBUTION WIDTH 14.7 % 11.7-14.4 H (BEAKER) (test code = 412) PLATELET COUNT (BEAKER) (test 313 K/CU MM 150-450 code = 756) MEAN PLATELET VOLUME (BEAKER) 9.8 fL 9.4-12.3 (test code = 754) NUCLEATED RED BLOOD CELLS 0 /100 WBC 0-0 (BEAKER) (test code = 413) (CELLAVISION MANUAL DIFF)2020-03-07 14:34:00 Test Item Value Reference Range Interpretation Comments NEUTROPHILS - REL 86 % (CELLAVISION)(BEAKER) (test code = 2816) LYMPHOCYTES - REL 4 % (CELLAVISION)(BEAKER) (test code = 2817) MONOCYTES - REL 5 % (CELLAVISION)(BEAKER) (test code = 2818) EOSINOPHILS - REL 1 % (CELLAVISION)(BEAKER) (test code = 2819) BASOPHILS - REL 1 % (CELLAVISION)(BEAKER) (test code = 2820) METAMYELOCYTES - REL 1 % 0-0 H (CELLAVISION)(BEAKER) (test code = 2821) BANDS - REL (CELLAVISION)(BEAKER) 2 % 0-10 (test code = 2826) NEUTROPHILS - ABS 3.87 K/ul 1.56-6.13 (CELLAVISION)(BEAKER) (test code = 2830) LYMPHOCYTES - ABS 0.18 K/ul 1.18-3.74 L (CELLAVISION)(BEAKER) (test code = 2831) MONOCYTES - ABS 0.23 K/uL 0.24-0.36 L (CELLAVISION)(BEAKER) (test code = 2832) EOSINOPHILS - ABS 0.05 K/uL 0.04-0.36 (CELLAVISION)(BEAKER) (test code = 2834) BASOPHILS - ABS 0.05 K/uL 0.01-0.08 (CELLAVISION)(BEAKER) (test code = 2835) METAMYELOCYTES - ABS 0.05 K/uL 0.00-0.00 H (CELLAVISION)(BEAKER) (test code = 2836) BANDS - ABS (CELLAVISION)(BEAKER) 0.09 K/uL 0.00-0.80 (test code = 2840) TOTAL COUNTED (BEAKER) (test code 100 = 1351) MANUAL NRBC PER 100 CELLS (BEAKER) 1 /100 WBC 0-0 H (test code = 1353) WBC MORPHOLOGY (BEAKER) (test code Normal = 487) PLT MORPHOLOGY (BEAKER) (test code Normal = 486) POLYCHROMATOPHILLIC RBCS(BEAKER) 1+ few (test code = 478) ANISOCYTOSIS (BEAKER) (test code = 1+ few 961) MACROCYTES (BEAKER) (test code = 1+ few 964) ARTIFACT (CELLAVISION)(BEAKER) Present (test code = 3432) PLATELET CONCENTRATION Decreased (CELLAVISION)(BEAKER) (test code = 3438) Brinell Tester ID - Raya OverholtUser comments: Slide comments:TACROLIMUS LEVEL 2020-03-07 11:51:00 Test Item Value Reference Range Interpretation Comments TACROLIMUS BLOOD (BEAKER) (test 14.3 ng/mL 10.0-20.0 code = 657) Brinell Tester ID - MAYRA WCOMPREHENSIVE METABOLIC [id number] 11:30:00 Test Item Value Reference Range Interpretation Comments TOTAL PROTEIN 7.6 gm/dL 6.0-8.3 (BEAKER) (test code = 770) ALBUMIN (BEAKER) 4.5 g/dL 3.5-5.0 (test code = 1145) ALKALINE PHOSPHATASE 106 U/L 40-150 (BEAKER) (test code = 346) BILIRUBIN TOTAL 0.3 mg/dL 0.2-1.2 (BEAKER) (test code = 377) SODIUM (BEAKER) (test 138 meq/L 136-145 code = 381) POTASSIUM (BEAKER) 5.1 meq/L 3.5-5.1 (test code = 379) CHLORIDE (BEAKER) 110 meq/L 98-107 H (test code = 382) CO2 (BEAKER) (test 18 meq/L 22-29 L code = 355) BLOOD UREA NITROGEN 23 mg/dL 7-21 H (BEAKER) (test code = 354) CREATININE (BEAKER) 1.53 mg/dL 0.57-1.25 H (test code = 358) GLUCOSE RANDOM 164 mg/dL 70-105 H (BEAKER) (test code = 652) CALCIUM (BEAKER) 9.6 mg/dL 8.4-10.2 (test code = 697) AST (SGOT) (BEAKER) 17 U/L 5-34 (test code = 353) ALT (SGPT) (BEAKER) 16 U/L 6-55 (test code = 347) EGFR (BEAKER) (test 36 mL/min/1.73 ESTIMA BRII GFR IS code = 1092) sq m NOT ACCURATE CREATININE CLEARANCE IN PREDICTING GLOMERULAR FILTRATION RATE . ESTIMATED GFR I S NOT APPLICABLE FOR DIALYSIS PATIEN TS. Brinell Tester ID - [id number] 11:30:00 Test Item Value Reference Range Interpretation Comments PHOSPHORUS (BEAKER) (test code = 3.2 mg/dL 2.3-4.7 604) Brinell Tester ID - ROSIANGURINALYSIS W/ REFLEX URINE [id number] 10:56:00 Test Item Value Reference Range Interpretation Comments COLOR (BEAKER) (test code = 470) Yellow CLARITY (BEAKER) (test code = 469) Clear SPECIFIC GRAVITY UA (BEAKER) (test 1.019 1.001-1.035 code = 468) PH UA (BEAKER) (test code = 467) 6.0 5.0-8.0 PROTEIN UA (BEAKER) (test code = Negative Negative 464) GLUCOSE UA (BEAKER) (test code = Negative Negative 365) KETONES UA (BEAKER) (test code = Negative Negative 371) BILIRUBIN UA (BEAKER) (test code = Negative Negative 462) BLOOD UA (BEAKER) (test code = 461) Negative Negative NITRITE UA (BEAKER) (test code = Negative Negative 465) LEUKOCYTE ESTERASE UA (BEAKER) Negative Negative (test code = 466) UROBILINOGEN UA (BEAKER) (test code 0.2 mg/dL 0.2-1.0 = 463) RBC UA (BEAKER) (test code = 519) < /HPF WBC UA (BEAKER) (test code = 520) < /HPF MUCUS (BEAKER) (test code = 1574) Rare SOURCE(BEAKER) (test code = 2790) Brinell Tester ID - [auto]Brinell Tester ID - techTACROLIMUS [id number] 14:23:00 Test Item Value Reference Range Interpretation Comments TACROLIMUS BLOOD (BEAKER) (test 10.0 ng/mL 10.0-20.0 code = 657) Brinell Tester ID - JAMIE MURINALYSIS W/ REFLEX URINE [id number] 12:43:00 Test Item Value Reference Range Interpretation Comments COLOR (BEAKER) (test code = 470) Light Yellow CLARITY (BEAKER) (test code = Clear 469) SPECIFIC GRAVITY UA (BEAKER) 1.012 1.001-1.035 (test code = 468) PH UA (BEAKER) (test code = 467) 6.0 5.0-8.0 PROTEIN UA (BEAKER) (test code = 70 mg/dL Negative A 464) GLUCOSE UA (BEAKER) [...] = 1 /HPF 520) SQUAMOUS EPITHELIAL (BEAKER) 1 /HPF (test code = 516) SOURCE(BEAKER) (test code = 2795) Brinell Tester ID - [auto]Brinell Tester ID - techCOMPREHENSIVE METABOLIC [id number] 10:34:00 Test Item Value Reference Range Interpretation Comments TOTAL PROTEIN 7.8 gm/dL 6.0-8.3 (BEAKER) (test code = 770) ALBUMIN (BEAKER) 4.6 g/dL 3.5-5.0 (test code = 1145) ALKALINE PHOSPHATASE 129 U/L 40-150 (BEAKER) (test code = 346) BILIRUBIN TOTAL 0.3 mg/dL 0.2-1.2 (BEAKER) (test code = 377) SODIUM (BEAKER) (test 137 meq/L 136-145 code = 381) POTASSIUM (BEAKER) 5.3 meq/L 3.5-5.1 H (test code = 379) CHLORIDE (BEAKER) 108 meq/L 98-107 H (test code = 382) CO2 (BEAKER) (test 20 meq/L 22-29 L code = 355) BLOOD UREA NITROGEN 26 mg/dL 7-21 H (BEAKER) (test code = 354) CREATININE (BEAKER) 1.59 mg/dL 0.57-1.25 H (test code = 358) GLUCOSE RANDOM 179 mg/dL 70-105 H (BEAKER) (test code = 652) CALCIUM (BEAKER) 9.8 mg/dL 8.4-10.2 (test code = 697) AST (SGOT) (BEAKER) 17 U/L 5-34 (test code = 353) ALT (SGPT) (BEAKER) 18 U/L 6-55 (test code = 347) EGFR (BEAKER) (test 35 mL/min/1.73 ESTIMA BRII GFR IS code = 1092) sq m NOT ACCURATE CREATININE CLEARANCE IN PREDICTING GLOMERULAR FILTRATION RATE . ESTIMATED GFR I S NOT APPLICABLE FOR DIALYSIS PATIEN TS. Brinell Tester ID - NABEEL [id number] 10:34:00 Test Item Value Reference Range Interpretation Comments PHOSPHORUS (BEAKER) (test code = 3.0 mg/dL 2.3-4.7 604) Brinell Tester ID - NABEEL FCBC W/PLT COUNT & AUTO [id number] 10:15:00 Test Item Value Reference Range Interpretation Comments WHITE BLOOD CELL COUNT (BEAKER) 6.5 K/ L 3.5-10.5 (test code = 775) RED BLOOD CELL COUNT (BEAKER) 3.56 M/ L 3.93-5.22 L (test code = 761) HEMOGLOBIN (BEAKER) (test code = 10.8 GM/DL 11.2-15.7 L 410) HEMATOCRIT (BEAKER) (test code = 34.7 % 34.1-44.9 411) MEAN CORPUSCULAR VOLUME (BEAKER) 97.5 fL 79.4-94.8 H (test code = 753) MEAN CORPUSCULAR HEMOGLOBIN 30.3 pg 25.6-32.2 (BEAKER) (test code = 751) MEAN CORPUSCULAR HEMOGLOBIN CONC 31.1 GM/DL 32.2-35.5 L (BEAKER) (test code = 752) RED CELL DISTRIBUTION WIDTH 14.6 % 11.7-14.4 H (BEAKER) (test code = 412) PLATELET COUNT (BEAKER) (test 272 K/CU MM 150-450 code = 756) MEAN PLATELET VOLUME (BEAKER) 9.7 fL 9.4-12.3 (test code = 754) NUCLEATED RED BLOOD CELLS 0 /100 WBC 0-0 (BEAKER) (test code = 413) NEUTROPHILS RELATIVE PERCENT 78 % (BEAKER) (test code = 429) LYMPHOCYTES RELATIVE PERCENT 11 % (BEAKER) (test code = 430) MONOCYTES RELATIVE PERCENT 6 % (BEAKER) (test code = 431) EOSINOPHILS RELATIVE PERCENT 2 % (BEAKER) (test code = 432) BASOPHILS RELATIVE PERCENT 1 % (BEAKER) (test code = 437) NEUTROPHILS ABSOLUTE COUNT 5.00 K/ L 1.56-6.13 (BEAKER) (test code = 670) LYMPHOCYTES ABSOLUTE COUNT 0.69 K/ L 1.18-3.74 L (BEAKER) (test code = 414) MONOCYTES ABSOLUTE COUNT (BEAKER) 0.38 K/ L 0.24-0.36 H (test code = 415) EOSINOPHILS ABSOLUTE COUNT 0.10 K/ L 0.04-0.36 (BEAKER) (test code = 416) BASOPHILS ABSOLUTE COUNT (BEAKER) 0.08 K/ L 0.01-0.08 (test code = 417) IMMATURE GRANULOCYTES-RELATIVE 3 % 0-1 H PERCENT (BEAKER) (test code = 2801) TACROLIMUS [id number] 11:07:00 Test Item Value Reference Range Interpretation Comments TACROLIMUS BLOOD (BEAKER) (test 7.6 ng/mL 10.0-20.0 L code = 657) Brinell Tester ID - JMURINALYSIS W/ REFLEX URINE [id number] 10:18:00 Test Item Value Reference Range Interpretation Comments COLOR (BEAKER) (test code = 470) Light Yellow CLARITY (BEAKER) (test code = Clear 469) SPECIFIC GRAVITY UA (BEAKER) 1.010 1.001-1.035 (test code = 468) PH UA (BEAKER) (test code = 467) 6.0 5.0-8.0 PROTEIN UA (BEAKER) (test code = 10 mg/dL Negative A 464) GLUCOSE UA (BEAKER) [...] code = Rare 517) SQUAMOUS EPITHELIAL (BEAKER) 1 /HPF (test code = 516) SOURCE(BEAKER) (test code = 2795) Brinell Tester ID - [auto]Brinell Tester ID - techCOMPREHENSIVE METABOLIC [id number] 10:04:00 Test Item Value Reference Range Interpretation Comments TOTAL PROTEIN 7.9 gm/dL 6.0-8.3 (BEAKER) (test code = 770) ALBUMIN (BEAKER) 4.6 g/dL 3.5-5.0 (test code = 1145) ALKALINE PHOSPHATASE 125 U/L 40-150 (BEAKER) (test code = 346) BILIRUBIN TOTAL 0.6 mg/dL 0.2-1.2 (BEAKER) (test code = 377) SODIUM (BEAKER) (test 138 meq/L 136-145 code = 381) POTASSIUM (BEAKER) 5.4 meq/L 3.5-5.1 H (test code = 379) CHLORIDE (BEAKER) 111 meq/L 98-107 H (test code = 382) CO2 (BEAKER) (test 18 meq/L 22-29 L code = 355) BLOOD UREA NITROGEN 24 mg/dL 7-21 H (BEAKER) (test code = 354) CREATININE (BEAKER) 1.26 mg/dL 0.57-1.25 H (test code = 358) GLUCOSE RANDOM 177 mg/dL 70-105 H (BEAKER) (test code = 652) CALCIUM (BEAKER) 9.6 mg/dL 8.4-10.2 (test code = 697) AST (SGOT) (BEAKER) 14 U/L 5-34 (test code = 353) ALT (SGPT) (BEAKER) 15 U/L 6-55 (test code = 347) EGFR (BEAKER) (test 45 mL/min/1.73 ESTIMA BRII GFR IS code = 1092) sq m NOT ACCURATE CREATININE CLEARANCE IN PREDICTING GLOMERULAR FILTRATION RATE . ESTIMATED GFR I S NOT APPLICABLE FOR DIALYSIS PATIEN TS. Brinell Tester ID - [id number] 10:04:00 Test Item Value Reference Range Interpretation Comments PHOSPHORUS (BEAKER) (test code = 3.1 mg/dL 2.3-4.7 604) Brinell Tester ID - EDASICBC W/PLT COUNT & AUTO [id number] 09:27:00 Test Item Value Reference Range Interpretation Comments WHITE BLOOD CELL COUNT (BEAKER) 5.1 K/ L 3.5-10.5 (test code = 775) RED BLOOD CELL COUNT (BEAKER) 3.57 M/ L 3.93-5.22 L (test code = 761) HEMOGLOBIN (BEAKER) (test code = 11.0 GM/DL 11.2-15.7 L 410) HEMATOCRIT (BEAKER) (test code = 34.3 % 34.1-44.9 411) MEAN CORPUSCULAR VOLUME (BEAKER) 96.1 fL 79.4-94.8 H (test code = 753) [...] (test code = 413) NEUTROPHILS RELATIVE PERCENT 72 % (BEAKER) (test code = 429) LYMPHOCYTES RELATIVE PERCENT 14 % (BEAKER) (test code = 430) MONOCYTES RELATIVE PERCENT 6 % (BEAKER) (test code = 431) EOSINOPHILS RELATIVE PERCENT 4 % (BEAKER) (test code = 432) BASOPHILS RELATIVE PERCENT 2 % (BEAKER) (test code = 437) NEUTROPHILS ABSOLUTE COUNT 3.63 K/ L 1.56-6.13 (BEAKER) (test code = 670) LYMPHOCYTES ABSOLUTE COUNT 0.73 K/ L 1.18-3.74 L (BEAKER) (test code = 414) MONOCYTES ABSOLUTE COUNT (BEAKER) 0.30 K/ L 0.24-0.36 (test code = 415) EOSINOPHILS ABSOLUTE COUNT 0.19 K/ L 0.04-0.36 (BEAKER) (test code = 416) BASOPHILS ABSOLUTE COUNT (BEAKER) 0.09 K/ L 0.01-0.08 H (test code = 417) IMMATURE GRANULOCYTES-RELATIVE 3 % 0-1 H PERCENT (BEAKER) (test code = 2801) FUNGUS CULTURE + [id number] 17:56:00 Test Item Value Reference Range Interpretation Comments CULTURE (BEAKER) (test No fungus isolated in code = 1095) 28 days FUNGUS SMEAR (BEAKER) No fungi seen (test code = 1406) FUNGUS CULTURE + [id number] 17:56:00 Test Item Value Reference Range Interpretation Comments CULTURE (BEAKER) (test No fungus isolated in code = 1095) 28 days FUNGUS SMEAR (BEAKER) No fungi seen (test code = 1406) TACROLIMUS [id number] 11:55:00 Test Item Value Reference Range Interpretation Comments TACROLIMUS BLOOD (BEAKER) (test 14.3 ng/mL 10.0-20.0 code = 657) Brinell Tester ID - RMURINALYSIS W/ REFLEX URINE [id number] 10:36:00 Test Item Value Reference Range Interpretation Comments COLOR (BEAKER) (test code = 470) Yellow CLARITY (BEAKER) (test code = 469) Clear SPECIFIC GRAVITY UA (BEAKER) (test 1.012 1.001-1.035 code = 468) PH UA (BEAKER) (test code = 467) 5.5 5.0-8.0 PROTEIN UA (BEAKER) (test code = Negative Negative 464) GLUCOSE UA (BEAKER) (test code = Negative Negative 365) KETONES UA (BEAKER) (test code = Negative Negative 371) BILIRUBIN UA (BEAKER) (test code = Negative Negative 462) BLOOD UA (BEAKER) (test code = 461) Small Negative A NITRITE UA (BEAKER) (test code = Negative Negative 465) LEUKOCYTE ESTERASE UA (BEAKER) Moderate Negative A (test code = 466) UROBILINOGEN UA (BEAKER) (test code 0.2 mg/dL 0.2-1.0 = 463) RBC UA (BEAKER) (test code = 519) 19 /HPF WBC UA (BEAKER) (test code = 520) 7 /HPF BACTERIA (BEAKER) (test code = 517) Rare SQUAMOUS EPITHELIAL (BEAKER) (test 6 /HPF code = 516) SOURCE(BEAKER) (test code = 2795) Brinell Tester ID - [auto]Brinell Tester ID - [id number] 09:02:00 Test Item Value Reference Range Interpretation Comments PHOSPHORUS (BEAKER) (test code = 2.7 mg/dL 2.3-4.7 604) Brinell Tester ID - MAY CCOMPREHENSIVE METABOLIC [id number] 09:02:00 Test Item Value Reference Range Interpretation Comments TOTAL PROTEIN 7.6 gm/dL 6.0-8.3 (BEAKER) (test code = 770) ALBUMIN (BEAKER) 4.3 g/dL 3.5-5.0 (test code = 1145) ALKALINE PHOSPHATASE 170 U/L 40-150 H (BEAKER) (test code = 346) BILIRUBIN TOTAL 0.3 mg/dL 0.2-1.2 (BEAKER) (test code = 377) SODIUM (BEAKER) (test 141 meq/L 136-145 code = 381) POTASSIUM (BEAKER) 4.7 meq/L 3.5-5.1 (test code = 379) CHLORIDE (BEAKER) 110 meq/L 98-107 H (test code = 382) CO2 (BEAKER) (test 20 meq/L 22-29 L code = 355) BLOOD UREA NITROGEN 22 mg/dL 7-21 H (BEAKER) (test code = 354) CREATININE (BEAKER) 1.47 mg/dL 0.57-1.25 H (test code = 358) GLUCOSE RANDOM 154 mg/dL 70-105 H (BEAKER) (test code = 652) CALCIUM (BEAKER) 9.2 mg/dL 8.4-10.2 (test code = 697) AST (SGOT) (BEAKER) 18 U/L 5-34 (test code = 353) ALT (SGPT) (BEAKER) 27 U/L 6-55 (test code = 347) EGFR (BEAKER) (test 38 mL/min/1.73 ESTIMA BRII GFR IS code = 1092) sq m NOT ACCURATE CREATININE CLEARANCE IN PREDICTING GLOMERULAR FILTRATION RATE . ESTIMATED GFR I S NOT APPLICABLE FOR DIALYSIS PATIEN TS. Brinell Tester ID - MAY CCBC W/PLT COUNT & AUTO [id number] 08:45:00 Test Item Value Reference Range Interpretation Comments WHITE BLOOD CELL COUNT (BEAKER) 5.8 K/ L 3.5-10.5 (test code = 775) RED BLOOD CELL COUNT (BEAKER) 3.34 M/ L 3.93-5.22 L (test code = 761) HEMOGLOBIN (BEAKER) (test code = 10.4 GM/DL 11.2-15.7 L 410) HEMATOCRIT (BEAKER) (test code = 33.2 % 34.1-44.9 L 411) MEAN CORPUSCULAR VOLUME (BEAKER) 99.4 fL 79.4-94.8 H (test code = 753) MEAN CORPUSCULAR HEMOGLOBIN 31.1 pg 25.6-32.2 (BEAKER) (test code = 751) MEAN CORPUSCULAR HEMOGLOBIN CONC 31.3 GM/DL 32.2-35.5 L (BEAKER) (test code = 752) RED CELL DISTRIBUTION WIDTH 14.9 % 11.7-14.4 H (BEAKER) (test code = 412) PLATELET COUNT (BEAKER) (test 409 K/CU MM 150-450 code = 756) MEAN PLATELET VOLUME (BEAKER) 10.3 fL 9.4-12.3 (test code = 754) NUCLEATED RED BLOOD CELLS 0 /100 WBC 0-0 (BEAKER) (test code = 413) NEUTROPHILS RELATIVE PERCENT 70 % (BEAKER) (test code = 429) LYMPHOCYTES RELATIVE PERCENT 14 % (BEAKER) (test code = 430) MONOCYTES RELATIVE PERCENT 6 % (BEAKER) (test code = 431) EOSINOPHILS RELATIVE PERCENT 6 % (BEAKER) (test code = 432) BASOPHILS RELATIVE PERCENT 2 % (BEAKER) (test code = 437) NEUTROPHILS ABSOLUTE COUNT 4.08 K/ L 1.56-6.13 (BEAKER) (test code = 670) LYMPHOCYTES ABSOLUTE COUNT 0.79 K/ L 1.18-3.74 L (BEAKER) (test code = 414) MONOCYTES ABSOLUTE COUNT (BEAKER) 0.33 K/ L 0.24-0.36 (test code = 415) EOSINOPHILS ABSOLUTE COUNT 0.37 K/ L 0.04-0.36 H (BEAKER) (test code = 416) BASOPHILS ABSOLUTE COUNT (BEAKER) 0.11 K/ L 0.01-0.08 H (test code = 417) IMMATURE GRANULOCYTES-RELATIVE 2 % 0-1 H PERCENT (BEAKER) (test code = 2801) TACROLIMUS [id number] 14:47:00 Test Item Value Reference Range Interpretation Comments TACROLIMUS BLOOD (BEAKER) (test 5.6 ng/mL 10.0-20.0 L code = 657) Brinell Tester ID - MAYRA WURINALYSIS W/ REFLEX URINE [id number] 10:57:00 Test Item Value Reference Range Interpretation Comments COLOR (BEAKER) (test code = 470) Yellow CLARITY (BEAKER) (test code = 469) Clear SPECIFIC GRAVITY UA (BEAKER) (test 1.010 1.001-1.035 code = 468) PH UA (BEAKER) (test code = 467) 5.5 5.0-8.0 PROTEIN UA (BEAKER) (test code = 10 mg/dL Negative A 464) GLUCOSE UA (BEAKER) (test code = Negative Negative 365) KETONES UA (BEAKER) (test code = Negative Negative 371) BILIRUBIN UA (BEAKER) (test code = Negative Negative 462) BLOOD UA (BEAKER) (test code = 461) Negative Negative NITRITE UA (BEAKER) (test code = Negative Negative 465) LEUKOCYTE ESTERASE UA (BEAKER) Negative Negative (test code = 466) UROBILINOGEN UA (BEAKER) (test code 0.2 mg/dL 0.2-1.0 = 463) RBC UA (BEAKER) (test code = 519) 7 /HPF WBC UA (BEAKER) (test code = 520) 3 /HPF SQUAMOUS EPITHELIAL (BEAKER) (test 5 /HPF code = 516) SOURCE(BEAKER) (test code = 2795) Brinell Tester ID - [auto]Brinell Tester ID - [id number] 10:29:00 Test Item Value Reference Range Interpretation Comments PHOSPHORUS (BEAKER) (test code = 2.3 mg/dL 2.3-4.7 604) Brinell Tester ID - AAHAMIDCOMPREHENSIVE METABOLIC [id number] 10:29:00 Test Item Value Reference Range Interpretation Comments TOTAL PROTEIN 7.6 gm/dL 6.0-8.3 (BEAKER) (test code = 770) ALBUMIN (BEAKER) 4.2 g/dL 3.5-5.0 (test code = 1145) ALKALINE PHOSPHATASE 156 U/L 40-150 H (BEAKER) (test code = 346) BILIRUBIN TOTAL 0.5 mg/dL 0.2-1.2 (BEAKER) (test code = 377) SODIUM (BEAKER) (test 140 meq/L 136-145 code = 381) POTASSIUM (BEAKER) 4.7 meq/L 3.5-5.1 (test code = 379) CHLORIDE (BEAKER) 109 meq/L 98-107 H (test code = 382) CO2 (BEAKER) (test 21 meq/L 22-29 L code = 355) BLOOD UREA NITROGEN 14 mg/dL 7-21 (BEAKER) (test code = 354) CREATININE (BEAKER) 1.26 mg/dL 0.57-1.25 H (test code = 358) GLUCOSE RANDOM 153 mg/dL 70-105 H (BEAKER) (test code = 652) CALCIUM (BEAKER) 9.6 mg/dL 8.4-10.2 (test code = 697) AST (SGOT) (BEAKER) 80 U/L 5-34 H (test code = 353) ALT (SGPT) (BEAKER) 43 U/L 6-55 (test code = 347) EGFR (BEAKER) (test 45 mL/min/1.73 ESTIMA BRII GFR IS code = 1092) sq m NOT ACCURATE CREATININE CLEARANCE IN PREDICTING GLOMERULAR FILTRATION RATE . ESTIMATED GFR I S NOT APPLICABLE FOR DIALYSIS PATIEN TS. Brinell Tester ID - AAHAMIDCBC W/PLT COUNT & AUTO [id number] 10:23:00 Test Item Value Reference Range Interpretation Comments WHITE BLOOD CELL COUNT (BEAKER) 5.6 K/ L 3.5-10.5 (test code = 775) RED BLOOD CELL COUNT (BEAKER) 3.38 M/ L 3.93-5.22 L (test code = 761) HEMOGLOBIN (BEAKER) (test code = 10.3 GM/DL 11.2-15.7 L 410) HEMATOCRIT (BEAKER) (test code = 33.3 % 34.1-44.9 L 411) MEAN CORPUSCULAR VOLUME (BEAKER) 98.5 fL 79.4-94.8 H (test code = 753) MEAN CORPUSCULAR HEMOGLOBIN 30.5 pg 25.6-32.2 (BEAKER) (test code = 751) MEAN CORPUSCULAR HEMOGLOBIN CONC 30.9 GM/DL 32.2-35.5 L (BEAKER) (test code = 752) RED CELL DISTRIBUTION WIDTH 14.6 % 11.7-14.4 H (BEAKER) (test code = 412) PLATELET COUNT (BEAKER) (test 319 K/CU MM 150-450 code = 756) MEAN PLATELET VOLUME (BEAKER) 10.1 fL 9.4-12.3 (test code = 754) NUCLEATED RED BLOOD CELLS 0 /100 WBC 0-0 (BEAKER) (test code = 413) NEUTROPHILS RELATIVE PERCENT 75 % (BEAKER) (test code = 429) LYMPHOCYTES RELATIVE PERCENT 8 % (BEAKER) (test code = 430) MONOCYTES RELATIVE PERCENT 4 % (BEAKER) (test code = 431) EOSINOPHILS RELATIVE PERCENT 9 % (BEAKER) (test code = 432) BASOPHILS RELATIVE PERCENT 1 % (BEAKER) (test code = 437) NEUTROPHILS ABSOLUTE COUNT 4.23 K/ L 1.56-6.13 (BEAKER) (test code = 670) LYMPHOCYTES ABSOLUTE COUNT 0.47 K/ L 1.18-3.74 L (BEAKER) (test code = 414) MONOCYTES ABSOLUTE COUNT (BEAKER) 0.25 K/ L 0.24-0.36 (test code = 415) EOSINOPHILS ABSOLUTE COUNT 0.48 K/ L 0.04-0.36 H (BEAKER) (test code = 416) BASOPHILS ABSOLUTE COUNT (BEAKER) 0.04 K/ L 0.01-0.08 (test code = 417) IMMATURE GRANULOCYTES-RELATIVE 3 % 0-1 H PERCENT (BEAKER) (test code = 2801) BLOOD [id number] 11:00:00 Test Item Value Reference Range Interpretation Comments CULTURE (BEAKER) (test No growth in 5 days code = 1095) BLOOD [id number] 11:00:00 Test Item Value Reference Range Interpretation Comments CULTURE (BEAKER) (test No growth in 5 days code = 1095) BLOOD [id number] 14:00:00 Test Item Value Reference Range Interpretation Comments CULTURE (BEAKER) (test No growth in 5 days code = 1095) BLOOD [id number] 14:00:00 Test Item Value Reference Range Interpretation Comments CULTURE (BEAKER) (test No growth in 5 days code = 1095) TACROLIMUS [id number] 12:02:00 Test Item Value Reference Range Interpretation Comments TACROLIMUS BLOOD (BEAKER) (test 9.5 ng/mL 10.0-20.0 L code = 657) Brinell Tester ID - AAHAMIDPOCT-GLUCOSE [id number] 08:12:00 Test Item Value Reference Range Interpretation Comments POC-GLUCOSE METER 150 mg/dL 70-110 H : TESTED Keisha Barkley [facility] [address] (BEAKER) (test code = [place], 1538) [address]: Brinell Tester/Techni martita ID = [id number] for TIMOTHY JOHNSON HEPATIC FUNCTION [id number] 06:10:00 Test Item Value Reference Range Interpretation Comments TOTAL PROTEIN (BEAKER) (test code = 6.9 gm/dL 6.0-8.3 770) ALBUMIN (BEAKER) (test code = 1145) 3.6 g/dL 3.5-5.0 BILIRUBIN TOTAL (BEAKER) (test code 0.7 mg/dL 0.2-1.2 = 377) BILIRUBIN DIRECT (BEAKER) (test 0.4 mg/dL 0.1-0.5 code = 706) ALKALINE PHOSPHATASE (BEAKER) (test 78 U/L 40-150 code = 346) AST (SGOT) (BEAKER) (test code = 15 U/L 5-34 353) ALT (SGPT) (BEAKER) (test code = 16 U/L 6-55 347) Brinell Tester ID - PIAYA LBASIC METABOLIC [id number] 06:10:00 Test Item Value Reference Range Interpretation Comments SODIUM (BEAKER) 139 meq/L 136-145 (test code = 381) POTASSIUM (BEAKER) 4.0 meq/L 3.5-5.1 (test code = 379) CHLORIDE (BEAKER) 105 meq/L 98-107 (test code = 382) CO2 (BEAKER) (test 22 meq/L 22-29 code = 355) BLOOD UREA NITROGEN 18 mg/dL 7-21 (BEAKER) (test code = 354) CREATININE (BEAKER) 1.17 mg/dL 0.57-1.25 (test code = 358) GLUCOSE RANDOM 157 mg/dL 70-105 H (BEAKER) (test code = 652) CALCIUM (BEAKER) 9.2 mg/dL 8.4-10.2 (test code = 697) EGFR (BEAKER) (test 49 mL/min/1.73 ESTIMA BRII GFR IS code = 1092) sq m NOT ACCURATE CREATININE CLEARANCE IN PREDICTING GLOMERULAR FILTRATION RATE . ESTIMATED GFR I S NOT APPLICABLE FOR DIALYSIS PATIEN TS. Brinell Tester ID - PISTEPHY [id number] 06:03:00 Test Item Value Reference Range Interpretation Comments PARTIAL THROMBOPLASTIN TIME 25.0 seconds 22.5-36.0 (BEAKER) (test code = 760) PROTHROMBIN [id number] 06:02:00 Test Item Value Reference Range Interpretation Comments PROTIME (BEAKER) (test code = 13.8 seconds 11.9-14.2 759) INR (BEAKER) (test code = 370) 1.09 <=5.90 Effective 10/07/2018: PT Reference Range ChangeNew: 11.9-14.2 Previous: 11.7- 14.7RECOMMENDED COUMADIN/WARFARIN INR THERAPY RANGESSTANDARD DOSE: 2.0-3.0 Includes: PROPHYLAXIS for venous thrombosis, systemic embolization; TREATMENT for venous thrombosis and/or pulmonary embolus.HIGH RISK: Target INR is2.5-3.5 for patients wiht mechanical heart valves.LACTIC ACID, [id number] 05:40:00 Test Item Value Reference Range Interpretation Comments LACTATE BLOOD VENOUS (2) (BEAKER) 1.06 mmol/L 0.50-2.20 (test code = 2872) Brinell Tester ID Emerald [place] LCBC W/PLT COUNT & AUTO [id number] 05:32:00 Test Item Value Reference Range Interpretation Comments WHITE BLOOD CELL COUNT (BEAKER) 3.5 K/ L 3.5-10.5 (test code = 775) RED BLOOD CELL COUNT (BEAKER) 2.83 M/ L 3.93-5.22 L (test code = 761) HEMOGLOBIN (BEAKER) (test code = 8.6 GM/DL 11.2-15.7 L 410) HEMATOCRIT (BEAKER) (test code = 27.1 % 34.1-44.9 L 411) MEAN CORPUSCULAR VOLUME (BEAKER) 95.8 fL 79.4-94.8 H (test code = 753) MEAN CORPUSCULAR HEMOGLOBIN 30.4 pg 25.6-32.2 (BEAKER) (test code = 751) MEAN CORPUSCULAR HEMOGLOBIN CONC 31.7 GM/DL 32.2-35.5 L (BEAKER) (test code = 752) RED CELL DISTRIBUTION WIDTH 14.4 % 11.7-14.4 (BEAKER) (test code = 412) PLATELET COUNT (BEAKER) (test 228 K/CU MM 150-450 code = 756) MEAN PLATELET VOLUME (BEAKER) 10.1 fL 9.4-12.3 (test code = 754) NUCLEATED RED BLOOD CELLS 0 /100 WBC 0-0 (BEAKER) (test code = 413) NEUTROPHILS RELATIVE PERCENT 71 % (BEAKER) (test code = 429) LYMPHOCYTES RELATIVE PERCENT 11 % (BEAKER) (test code = 430) MONOCYTES RELATIVE PERCENT 7 % (BEAKER) (test code = 431) EOSINOPHILS RELATIVE PERCENT 6 % (BEAKER) (test code = 432) BASOPHILS RELATIVE PERCENT 1 % (BEAKER) (test code = 437) NEUTROPHILS ABSOLUTE COUNT 2.49 K/ L 1.56-6.13 (BEAKER) (test code = 670) LYMPHOCYTES ABSOLUTE COUNT 0.38 K/ L 1.18-3.74 L (BEAKER) (test code = 414) MONOCYTES ABSOLUTE COUNT (BEAKER) 0.23 K/ L 0.24-0.36 L (test code = 415) EOSINOPHILS ABSOLUTE COUNT 0.20 K/ L 0.04-0.36 (BEAKER) (test code = 416) BASOPHILS ABSOLUTE COUNT (BEAKER) 0.02 K/ L 0.01-0.08 (test code = 417) IMMATURE GRANULOCYTES-RELATIVE 5 % 0-1 H PERCENT (BEAKER) (test code = 2801) BLOOD [id number] 02:01:00 Test Item Value Reference Range Interpretation Comments CULTURE (BEAKER) (test No growth in 5 days code = 1095) BLOOD [id number] 02:01:00 Test Item Value Reference Range Interpretation Comments CULTURE (BEAKER) (test No growth in 5 days code = 1095) POCT-GLUCOSE [id number] 22:20:00 Test Item Value Reference Range Interpretation Comments POC-GLUCOSE METER 172 mg/dL 70-110 H : TESTED A T [facility] 67[address] (BEAKER) (test code = [place], 1538) [address]: Brinell Tester/Techni martita ID = [id number] for Madison Billy POCT-GLUCOSE [id number] 17:46:00 Test Item Value Reference Range Interpretation Comments POC-GLUCOSE METER 237 mg/dL 70-110 H : TESTED A T [facility] 6720 (BEAKER) (test code = [facility], 1538) [address]: Brinell Tester/Techni martita ID = [id number] for MAIDA KEE POCT-GLUCOSE [id number] 14:05:00 Test Item Value Reference Range Interpretation Comments POC-GLUCOSE METER 221 mg/dL 70-110 H : TESTED A T [facility] 6720 (BEAKER) (test code = [facility], 153) [address]: Brinell Tester/Techni martita ID = [id number] for VERONICA JOHNS URINE [id number] 09:52:00 Test Item Value Reference Range Interpretation Comments CULTURE (BEAKER) (test code = 1095) No growth TACROLIMUS [id number] 09:45:00 Test Item Value Reference Range Interpretation Comments TACROLIMUS BLOOD (BEAKER) (test 11.5 ng/mL 10.0-20.0 code = 657) Brinell Tester ID - AAMICHELLEIDPOCT-GLUCOSE [id number] 08:22:00 Test Item Value Reference Range Interpretation Comments POC-GLUCOSE METER 193 mg/dL 70-110 H : TESTED A T [facility] 6720 (BEAKER) (test code = [facility], 153) [id number]: Brinell Tester/Techni martita ID = [id number] for MAIDA KEE [id number] 06:59:00 Test Item Value Reference Range Interpretation Comments PHOSPHORUS (BEAKER) (test code = 2.4 mg/dL 2.3-4.7 604) Brinell Tester ID - RICHELLE [id number] 06:59:00 Test Item Value Reference Range Interpretation Comments MAGNESIUM (BEAKER) (test code = 2.0 mg/dL 1.6-2.6 627) Brinell Tester ID - RICHELLE LBASIC METABOLIC [id number] 06:59:00 Test Item Value Reference Range Interpretation Comments SODIUM (BEAKER) 139 meq/L 136-145 (test code = 381) POTASSIUM (BEAKER) 4.1 meq/L 3.5-5.1 (test code = 379) CHLORIDE (BEAKER) 107 meq/L 98-107 (test code = 382) CO2 (BEAKER) (test 25 meq/L 22-29 code = 355) BLOOD UREA NITROGEN 15 mg/dL 7-21 (BEAKER) (test code = 354) CREATININE (BEAKER) 1.02 mg/dL 0.57-1.25 (test code = 358) GLUCOSE RANDOM 179 mg/dL 70-105 H (BEAKER) (test code = 652) CALCIUM (BEAKER) 9.1 mg/dL 8.4-10.2 (test code = 697) EGFR (BEAKER) (test 58 mL/min/1.73 ESTIMA BRII GFR IS code = 1092) sq m NOT ACCURATE CREATININE CLEARANCE IN PREDICTING GLOMERULAR FILTRATION RATE . ESTIMATED GFR I S NOT APPLICABLE FOR DIALYSIS PATIEN TS. Brinell Tester ID - PIAYA EPATIC FUNCTION [id number] 06:59:00 Test Item Value Reference Range Interpretation Comments TOTAL PROTEIN (BEAKER) (test code = 6.8 gm/dL 6.0-8.3 770) ALBUMIN (BEAKER) (test code = 1145) 3.3 g/dL 3.5-5.0 L BILIRUBIN TOTAL (BEAKER) (test code 0.7 mg/dL 0.2-1.2 = 377) BILIRUBIN DIRECT (BEAKER) (test 0.4 mg/dL 0.1-0.5 code = 706) ALKALINE PHOSPHATASE (BEAKER) (test 71 U/L 40-150 code = 346) AST (SGOT) (BEAKER) (test code = 13 U/L 5-34 353) ALT (SGPT) (BEAKER) (test code = 19 U/L 6-55 347) Brinell Tester ID - PISTEPHY [id number] 06:55:00 Test Item Value Reference Range Interpretation Comments PARTIAL THROMBOPLASTIN TIME 35.3 seconds 22.5-36.0 (BEAKER) (test code = 760) PROTHROMBIN [id number] 06:54:00 Test Item Value Reference Range Interpretation Comments PROTIME (BEAKER) (test code = 14.5 seconds 11.9-14.2 H 759) INR (BEAKER) (test code = 370) 1.16 <=5.90 Effective 10/07/2018: PT Reference Range ChangeNew: 11.9-14.2 Previous: 11.7- 14.7RECOMMENDED COUMADIN/WARFARIN INR THERAPY RANGESSTANDARD DOSE: 2.0-3.0 Includes: PROPHYLAXIS for venous thrombosis, systemic embolization; TREATMENT for venous thrombosis and/or pulmonary embolus.HIGH RISK: Target INR is2.5-3.5 for patients wiht mechanical heart valves.LACTIC ACID, [id number] 06:47:00 Test Item Value Reference Range Interpretation Comments LACTATE BLOOD VENOUS (2) (BEAKER) 0.76 mmol/L 0.50-2.20 (test code = 2872) Brinell Tester ID - RICHELLE LCBC (HEMOGRAM ONLY)2020-02-06 06:46:00 Test Item Value Reference Range Interpretation Comments WHITE BLOOD CELL COUNT (BEAKER) 2.5 K/ L 3.5-10.5 L (test code = 775) RED BLOOD CELL COUNT (BEAKER) 2.62 M/ L 3.93-5.22 L (test code = 761) HEMOGLOBIN (BEAKER) (test code = 7.8 GM/DL 11.2-15.7 L 410) HEMATOCRIT (BEAKER) (test code = 25.5 % 34.1-44.9 L 411) MEAN CORPUSCULAR VOLUME (BEAKER) 97.3 fL 79.4-94.8 H (test code = 753) MEAN CORPUSCULAR HEMOGLOBIN 29.8 pg 25.6-32.2 (BEAKER) (test code = 751) MEAN CORPUSCULAR HEMOGLOBIN CONC 30.6 GM/DL 32.2-35.5 L (BEAKER) (test code = 752) RED CELL DISTRIBUTION WIDTH 14.9 % 11.7-14.4 H (BEAKER) (test code = 412) PLATELET COUNT (BEAKER) (test 227 K/CU MM 150-450 code = 756) MEAN PLATELET VOLUME (BEAKER) 10.0 fL 9.4-12.3 (test code = 754) NUCLEATED RED BLOOD CELLS 1 /100 WBC 0-0 H (BEAKER) (test code = 413) POCT-GLUCOSE [id number] 22:45:00 Test Item Value Reference Range Interpretation Comments POC-GLUCOSE METER 157 mg/dL 70-110 H : TESTED A T [facility] 6720 (BEAKER) (test code = [facility], 1538) [address]: Brinell Tester/Techni martita ID = [id number] for Madison Billy POCT-GLUCOSE [id number] 18:10:00 Test Item Value Reference Range Interpretation Comments POC-GLUCOSE METER 256 mg/dL 70-110 H : TESTED A T [facility] 6720 (BEAKER) (test code = [facility], 1538) [address]: Brinell Tester/Techni martita ID = [id number] for ZACHARY LINO POCT-GLUCOSE [id number] 13:13:00 Test Item Value Reference Range Interpretation Comments POC-GLUCOSE METER 223 mg/dL 70-110 H : TESTED A T [facility] 6720 (BEAKER) (test code = [facility], 1538) [address]: Brinell Tester/Techni martita ID = [id number] for ZACHARY LINO TACROLIMUS [id number] 09:34:00 Test Item Value Reference Range Interpretation Comments TACROLIMUS BLOOD (BEAKER) (test 17.8 ng/mL 10.0-20.0 code = 657) Brinell Tester ID - AAHAMIDPOCT-GLUCOSE [id number] 08:00:00 Test Item Value Reference Range Interpretation Comments POC-GLUCOSE METER 199 mg/dL 70-110 H : TESTED A T [facility] 6720 (BEAKER) (test code = [facility], 1538) [address]: Brinell Tester/Techni martita ID = [id number] for ZACHARY LINO [id number] 05:06:00 Test Item Value Reference Range Interpretation Comments PHOSPHORUS (BEAKER) (test code = 2.2 mg/dL 2.3-4.7 L 604) Brinell Tester ID - WILI [id number] 05:06:00 Test Item Value Reference Range Interpretation Comments MAGNESIUM (BEAKER) (test code = 2.1 mg/dL 1.6-2.6 627) Brinell Tester ID - WILI MBASIC METABOLIC [id number] 05:06:00 Test Item Value Reference Range Interpretation Comments SODIUM (BEAKER) 140 meq/L 136-145 (test code = 381) POTASSIUM (BEAKER) 3.5 meq/L 3.5-5.1 (test code = 379) CHLORIDE (BEAKER) 105 meq/L 98-107 (test code = 382) CO2 (BEAKER) (test 23 meq/L 22-29 code = 355) BLOOD UREA NITROGEN 24 mg/dL 7-21 H (BEAKER) (test code = 354) CREATININE (BEAKER) 1.09 mg/dL 0.57-1.25 (test code = 358) GLUCOSE RANDOM 192 mg/dL 70-105 H (BEAKER) (test code = 652) CALCIUM (BEAKER) 9.0 mg/dL 8.4-10.2 (test code = 697) EGFR (BEAKER) (test 53 mL/min/1.73 ESTIMA BRII GFR IS code = 1092) sq m NOT ACCURATE CREATININE CLEARANCE IN PREDICTING GLOMERULAR FILTRATION RATE . ESTIMATED GFR I S NOT APPLICABLE FOR DIALYSIS PATIEN TS. Brinell Tester ID - WILI EPATIC FUNCTION [id number] 05:06:00 Test Item Value Reference Range Interpretation Comments TOTAL PROTEIN (BEAKER) (test code = 6.3 gm/dL 6.0-8.3 770) ALBUMIN (BEAKER) (test code = 1145) 3.0 g/dL 3.5-5.0 L BILIRUBIN TOTAL (BEAKER) (test code 0.8 mg/dL 0.2-1.2 = 377) BILIRUBIN DIRECT (BEAKER) (test 0.4 mg/dL 0.1-0.5 code = 706) ALKALINE PHOSPHATASE (BEAKER) (test 75 U/L 40-150 code = 346) AST (SGOT) (BEAKER) (test code = 17 U/L 5-34 353) ALT (SGPT) (BEAKER) (test code = 24 U/L 6-55 347) Brinell Tester ID - WILI [id number] 05:03:00 Test Item Value Reference Range Interpretation Comments PARTIAL THROMBOPLASTIN TIME 46.1 seconds 22.5-36.0 H (BEAKER) (test code = 760) PROTHROMBIN [id number] 05:02:00 Test Item Value Reference Range Interpretation Comments PROTIME (BEAKER) (test code = 15.6 seconds 11.9-14.2 H 759) INR (BEAKER) (test code = 370) 1.27 <=5.90 Effective 10/07/2018: PT Reference Range ChangeNew: 11.9-14.2 Previous: 11.7- 14.7RECOMMENDED COUMADIN/WARFARIN INR THERAPY RANGESSTANDARD DOSE: 2.0-3.0 Includes: PROPHYLAXIS for venous thrombosis, systemic embolization; TREATMENT for venous thrombosis and/or pulmonary embolus.HIGH RISK: Target INR is2.5-3.5 for patients wiht mechanical heart valves.BLOOD GAS, [id number] 04:49:00 Test Item Value Reference Range Interpretation Comments PH VENOUS (BEAKER) (test code = 7.47 7.32-7.42 H 701) PCO2 VENOUS (BEAKER) (test code = 36 mmHg 41-51 L 755) PO2 VENOUS (BEAKER) (test code = 65 mmHg 25-40 H 702) O2 SATURATION VENOUS (BEAKER) 94.0 % 40.0-70.0 H (test code = 703) HCO3 VENOUS (BEAKER) (test code = 26 mmol/L - 705) BASE EXCESS VENOUS (BEAKER) (test 1.8 mmol/L -2.0-3.0 code = 704) PATIENT TEMPERATURE (BEAKER) (test 36.9 C code = 1818) FIO2 (BEAKER) (test code = 1819) 21.0 % LACTIC ACID, [id number] 04:48:00 Test Item Value Reference Range Interpretation Comments LACTATE BLOOD VENOUS (2) (BEAKER) 0.76 mmol/L 0.50-2.20 (test code = 2872) Brinell Tester ID - WILI MCBC (HEMOGRAM ONLY)2020-02-05 04:38:00 Test Item Value Reference Range Interpretation Comments WHITE BLOOD CELL COUNT (BEAKER) 5.7 K/ L 3.5-10.5 (test code = 775) RED BLOOD CELL COUNT (BEAKER) 2.33 M/ L 3.93-5.22 L (test code = 761) HEMOGLOBIN (BEAKER) (test code = 7.1 GM/DL 11.2-15.7 L 410) HEMATOCRIT (BEAKER) (test code = 22.3 % 34.1-44.9 L 411) MEAN CORPUSCULAR VOLUME (BEAKER) 95.7 fL 79.4-94.8 H (test code = 753) MEAN CORPUSCULAR HEMOGLOBIN 30.5 pg 25.6-32.2 (BEAKER) (test code = 751) MEAN CORPUSCULAR HEMOGLOBIN CONC 31.8 GM/DL 32.2-35.5 L (BEAKER) (test code = 752) RED CELL DISTRIBUTION WIDTH 15.0 % 11.7-14.4 H (BEAKER) (test code = 412) PLATELET COUNT (BEAKER) (test 226 K/CU MM 150-450 code = 756) MEAN PLATELET VOLUME (BEAKER) 10.4 fL 9.4-12.3 (test code = 754) NUCLEATED RED BLOOD CELLS 1 /100 WBC 0-0 H (BEAKER) (test code = 413) LACTIC ACID, [id number] 00:46:00 Test Item Value Reference Range Interpretation Comments LACTATE BLOOD VENOUS (2) (BEAKER) 0.79 mmol/L 0.50-2.20 (test code = 2872) Brinell Tester ID - WILI MPOCT-GLUCOSE [id number] 00:33:00 Test Item Value Reference Range Interpretation Comments POC-GLUCOSE METER 163 mg/dL 70-110 H : TESTED A T [facility] 6720 (BEAKER) (test code = [facility], 1538) [address]: Brinell Tester/Techni martita ID = [id number] for Ma rin, Deanna POCT-GLUCOSE [id number] 20:47:00 Test Item Value Reference Range Interpretation Comments POC-GLUCOSE METER 212 mg/dL 70-110 H : TESTED A T [facility] 6720 (BEAKER) (test code = [facility], 1538) [address]: Brinell Tester/Techni martita ID = [id number] for Ma rin, Deanna TACROLIMUS [id number] 20:07:00 Test Item Value Reference Range Interpretation Comments TACROLIMUS BLOOD (BEAKER) (test 18.8 ng/mL 10.0-20.0 code = 657) CBC (HEMOGRAM ONLY)2020-02-04 19:49:00 Test Item Value Reference Range Interpretation Comments WHITE BLOOD CELL COUNT (BEAKER) 9.0 K/ L 3.5-10.5 (test code = 775) RED BLOOD CELL COUNT (BEAKER) 2.35 M/ L 3.93-5.22 L (test code = 761) HEMOGLOBIN (BEAKER) (test code = 7.2 GM/DL 11.2-15.7 L 410) HEMATOCRIT (BEAKER) (test code = 22.6 % 34.1-44.9 L 411) MEAN CORPUSCULAR VOLUME (BEAKER) 96.2 fL 79.4-94.8 H (test code = 753) MEAN CORPUSCULAR HEMOGLOBIN 30.6 pg 25.6-32.2 (BEAKER) (test code = 751) MEAN CORPUSCULAR HEMOGLOBIN CONC 31.9 GM/DL 32.2-35.5 L (BEAKER) (test code = 752) RED CELL DISTRIBUTION WIDTH 15.3 % 11.7-14.4 H (BEAKER) (test code = 412) PLATELET COUNT (BEAKER) (test 235 K/CU MM 150-450 code = 756) MEAN PLATELET VOLUME (BEAKER) 10.6 fL 9.4-12.3 (test code = 754) NUCLEATED RED BLOOD CELLS 0 /100 WBC 0-0 (BEAKER) (test code = 413) LACTIC ACID, [id number] 19:13:00 Test Item Value Reference Range Interpretation Comments LACTATE BLOOD VENOUS (2) (BEAKER) 1.93 mmol/L 0.50-2.20 (test code = 2872) Brinell Tester ID - BSPOCT-GLUCOSE [id number] 17:22:00 Test Item Value Reference Range Interpretation Comments POC-GLUCOSE METER 183 mg/dL 70-110 H : TESTED A T [facility] 6720 (BEAKER) (test code = GILDA Gates [facility], 153) [address]12: Brinell Tester/Techni martita ID = [id number] for RO BERSON, TIONIA POCT-GLUCOSE [id number] 14:36:00 Test Item Value Reference Range Interpretation Comments POC-GLUCOSE METER 195 mg/dL 70-110 H : TESTED A T [facility] 67[facility] (BEAKER) (test code = [facility] [place] [facility], 153) [address]: Brinell Tester/Techni martita ID = [id number] for RO BERSON, TIONIA POCT-GLUCOSE [id number] 13:47:00 Test Item Value Reference Range Interpretation Comments POC-GLUCOSE METER 225 mg/dL 70-110 H : TESTED A T [facility] 6720 (BEAKER) (test code = [facility], 1538) [address]: Brinell Tester/Techni martita ID = [id number] for LIZET GREENE PERIPHERAL BLOOD SMEAR - PATHOLOGIST [id number] 13:26:00 Test Item Value Reference Range Interpretation Comments PERIPHERAL SMR REVIEW No circulating blasts. (BEAKER) (test code = Rare occasional 2640) schistocytes. [id number] Rodney See, (BEAKER) (test code = M.DGeovani(electronic 4023) signature) LACTIC ACID, [id number] 12:48:00 Test Item Value Reference Range Interpretation Comments LACTATE BLOOD VENOUS (2) (AKER) 1.05 mmol/L 0.50-2.20 (test code = 2872) Brinell Tester ID - NAYAN CPOCT-GLUCOSE [id number] 12:41:00 Test Item Value Reference Range Interpretation Comments POC-GLUCOSE METER 203 mg/dL 70-110 H : TESTED A T [facility] 67[facility] ([facility]) (test code = [facility], 1538) 25595: Brinell Tester/Techni martita ID = [id number] for LIZET GREENE POCT-GLUCOSE [id number] 11:40:00 Test Item Value Reference Range Interpretation Comments POC-GLUCOSE METER 226 mg/dL 70-110 H : TESTED A T [facility] 67[facility] ([facility]) (test code = [facility], 1538) 07656: Brinell Tester/Techni martita ID = [id number] for LIZET GREENE CBC W/PLT COUNT & AUTO [id number] 11:15:00 Test Item Value Reference Range Interpretation Comments WHITE BLOOD CELL COUNT (BEAKER) 9.1 K/ L 3.5-10.5 (test code = 775) RED BLOOD CELL COUNT (BEAKER) 2.34 M/ L 3.93-5.22 L (test code = 761) HEMOGLOBIN (BEAKER) (test code = 7.2 GM/DL 11.2-15.7 L 410) HEMATOCRIT (BEAKER) (test code = 22.7 % 34.1-44.9 L 411) MEAN CORPUSCULAR VOLUME (BEAKER) 97.0 fL 79.4-94.8 H (test code = 753) MEAN CORPUSCULAR HEMOGLOBIN 30.8 pg 25.6-32.2 (BEAKER) (test code = 751) MEAN CORPUSCULAR HEMOGLOBIN CONC 31.7 GM/DL 32.2-35.5 L (BEAKER) (test code = 752) RED CELL DISTRIBUTION WIDTH 15.4 % 11.7-14.4 H (BEAKER) (test code = 412) PLATELET COUNT (BEAKER) (test 237 K/CU MM 150-450 code = 756) MEAN PLATELET VOLUME (BEAKER) 11.1 fL 9.4-12.3 (test code = 754) NUCLEATED RED BLOOD CELLS 0 /100 WBC 0-0 (BEAKER) (test code = 413) (CELLAVISION MANUAL DIFF)2020-02-04 11:14:00 Test Item Value Reference Range Interpretation Comments NEUTROPHILS - REL 89 % (CELLAVISION)(BEAKER) (test code = 2816) LYMPHOCYTES - REL 5 % (CELLAVISION)(BEAKER) (test code = 2817) MONOCYTES - REL 5 % (CELLAVISION)(BEAKER) (test code = 2818) EOSINOPHILS - REL 1 % (CELLAVISION)(BEAKER) (test code = 2819) NEUTROPHILS - ABS 8.10 K/ul 1.56-6.13 H (CELLAVISION)(BEAKER) (test code = 2830) LYMPHOCYTES - ABS 0.46 K/ul 1.18-3.74 L (CELLAVISION)(BEAKER) (test code = 2831) MONOCYTES - ABS 0.46 K/uL 0.24-0.36 H (CELLAVISION)(BEAKER) (test code = 2832) EOSINOPHILS - ABS 0.09 K/uL 0.04-0.36 (CELLAVISION)(BEAKER) (test code = 2834) TOTAL COUNTED (BEAKER) (test code = 100 1351) WBC MORPHOLOGY (BEAKER) (test code Normal = 487) PLT MORPHOLOGY (BEAKER) (test code Normal = 486) POLYCHROMATOPHILLIC RBCS(BEAKER) 1+ few (test code = 478) ANISOCYTOSIS (BEAKER) (test code = 1+ few 961) MICROCYTES (BEAKER) (test code = 1+ few 965) TEAR DROP CELLS (BEAKER) (test code 1+ few = 481) ARTIFACT (CELLAVISION)(BEAKER) Present (test code = 3432) PLATELET CONCENTRATION Adequate (CELLAVISION)(BEAKER) (test code = 3438) Brinell Tester ID - [id number] ID - Maria Luz GanroderickStacia comments: Slide comments:POCT- GLUCOSE [id number] 10:45:00 Test Item Value Reference Range Interpretation Comments POC-GLUCOSE METER 209 mg/dL 70-110 H : TESTED A T [facility] 6720 (BEAKER) (test code = [facility], 153) 85666: Brinell Tester/Techni martita ID = [id number] for RO BERSON, TIONIA POCT-GLUCOSE [id number] 08:40:00 Test Item Value Reference Range Interpretation Comments POC-GLUCOSE METER 150 mg/dL 70-110 H : TESTED A T [facility] 6720 (BEAKER) (test code = [facility], 153) 34995: Brinell Tester/Techni martita ID = [id number] for RO BERSON, TIONIA POCT-GLUCOSE [id number] 07:19:00 Test Item Value Reference Range Interpretation Comments POC-GLUCOSE METER 145 mg/dL 70-110 H : TESTED A T [facility] 6720 (BEAKER) (test code = [facility], 153) 07276: Brinell Tester/Techni martita ID = [id number] for Ma rin, Deanna POCT-GLUCOSE [id number] 07:19:00 Test Item Value Reference Range Interpretation Comments POC-GLUCOSE METER 147 mg/dL 70-110 H : TESTED A T [facility] 6720 (BEAKER) (test code = [facility], 153) 58490: Brinell Tester/Techni martita ID = [id number] for Ma rin, Deanna HEPATIC FUNCTION [id number] 05:49:00 Test Item Value Reference Range Interpretation Comments TOTAL PROTEIN (BEAKER) (test code = 6.1 gm/dL 6.0-8.3 770) ALBUMIN (BEAKER) (test code = 1145) 3.0 g/dL 3.5-5.0 L BILIRUBIN TOTAL (BEAKER) (test code 1.2 mg/dL 0.2-1.2 = 377) BILIRUBIN DIRECT (BEAKER) (test 0.8 mg/dL 0.1-0.5 H code = 706) ALKALINE PHOSPHATASE (BEAKER) (test 83 U/L 40-150 code = 346) AST (SGOT) (BEAKER) (test code = 22 U/L 5-34 353) ALT (SGPT) (BEAKER) (test code = 30 U/L 6-55 347) Brinell Tester ID - EDASIOperator ID - WILI MPOCT-GLUCOSE [id number] 05:22:00 Test Item Value Reference Range Interpretation Comments POC-GLUCOSE METER 129 mg/dL 70-110 H : TESTED A T [facility] 6720 (BEAKER) (test code = [facility], 1538) 66017: Brinell Tester/Techni martita ID = [id number] for Suzan cabello Deanna POCT-GLUCOSE [id number] 05:22:00 Test Item Value Reference Range Interpretation Comments POC-GLUCOSE METER 137 mg/dL 70-110 H : TESTED A T [facility] 6720 (BEAKER) (test code = [facility], 1538) 06165: Brinell Tester/Techni martita ID = [id number] for Suzan cabello, Deanna [id number] 04:58:00 Test Item Value Reference Range Interpretation Comments PHOSPHORUS (BEAKER) (test code = 2.8 mg/dL 2.3-4.7 604) Brinell Tester ID - [id number] 04:58:00 Test Item Value Reference Range Interpretation Comments MAGNESIUM (BEAKER) (test code = 2.4 mg/dL 1.6-2.6 627) Brinell Tester ID - EDASIBASIC METABOLIC [id number] 04:58:00 Test Item Value Reference Range Interpretation Comments SODIUM (BEAKER) 146 meq/L 136-145 H (test code = 381) POTASSIUM (BEAKER) 3.7 meq/L 3.5-5.1 (test code = 379) CHLORIDE (BEAKER) 112 meq/L 98-107 H (test code = 382) CO2 (BEAKER) (test 26 meq/L 22-29 code = 355) BLOOD UREA NITROGEN 38 mg/dL 7-21 H (BEAKER) (test code = 354) CREATININE (BEAKER) 1.43 mg/dL 0.57-1.25 H (test code = 358) GLUCOSE RANDOM 153 mg/dL 70-105 H (BEAKER) (test code = 652) CALCIUM (BEAKER) 9.0 mg/dL 8.4-10.2 (test code = 697) EGFR (BEAKER) (test 39 mL/min/1.73 ESTIMA BRII GFR IS code = 1092) sq m NOT ACCURATE CREATININE CLEARANCE IN PREDICTING GLOMERULAR FILTRATION RATE . ESTIMATED GFR I S NOT APPLICABLE FOR DIALYSIS PATIEN TS. Brinell Tester ID - EDASIVANCOMYCIN LEVEL, [id number] 04:50:00 Test Item Value Reference Range Interpretation Comments VANCOMYCIN RANDOM (BEAKER) (test 9.6 ug/mL code = 523) Reference Range: No NormalsOperator ID - [id number] 04:40:00 Test Item Value Reference Range Interpretation Comments FERRITIN (BEAKER) (test code = 6530.64 ng/mL 5.00-275.00 H 361) Brinell Tester ID - [id number] 04:38:00 Test Item Value Reference Range Interpretation Comments PARTIAL THROMBOPLASTIN TIME 49.3 seconds 22.5-36.0 H (BEAKER) (test code = 760) PROTHROMBIN [id number] 04:37:00 Test Item Value Reference Range Interpretation Comments PROTIME (BEAKER) (test code = 17.8 seconds 11.9-14.2 H 759) INR (BEAKER) (test code = 370) 1.51 <=5.90 Effective 10/07/2018: PT Reference Range ChangeNew: 11.9-14.2 Previous: 11.7- 14.7RECOMMENDED COUMADIN/WARFARIN INR THERAPY RANGESSTANDARD DOSE: 2.0-3.0 Includes: PROPHYLAXIS for venous thrombosis, systemic embolization; TREATMENT for venous thrombosis and/or pulmonary embolus.HIGH RISK: Target INR is2.5-3.5 for patients wiht mechanical heart valves.LACTIC ACID, [id number] 04:34:00 Test Item Value Reference Range Interpretation Comments LACTATE BLOOD VENOUS (2) (BEAKER) 0.67 mmol/L 0.50-2.20 (test code = 2872) Brinell Tester ID - EDASICBC (HEMOGRAM ONLY)2020-02-04 04:29:00 Test Item Value Reference Range Interpretation Comments WHITE BLOOD CELL COUNT (BEAKER) 8.9 K/ L 3.5-10.5 (test code = 775) RED BLOOD CELL COUNT (BEAKER) 2.32 M/ L 3.93-5.22 L (test code = 761) HEMOGLOBIN (BEAKER) (test code = 7.1 GM/DL 11.2-15.7 L 410) HEMATOCRIT (BEAKER) (test code = 22.1 % 34.1-44.9 L 411) MEAN CORPUSCULAR VOLUME (BEAKER) 95.3 fL 79.4-94.8 H (test code = 753) MEAN CORPUSCULAR HEMOGLOBIN 30.6 pg 25.6-32.2 (BEAKER) (test code = 751) MEAN CORPUSCULAR HEMOGLOBIN CONC 32.1 GM/DL 32.2-35.5 L (BEAKER) (test code = 752) RED CELL DISTRIBUTION WIDTH 15.4 % 11.7-14.4 H (BEAKER) (test code = 412) PLATELET COUNT (BEAKER) (test 243 K/CU MM 150-450 code = 756) MEAN PLATELET VOLUME (BEAKER) 10.6 fL 9.4-12.3 (test code = 754) NUCLEATED RED BLOOD CELLS 0 /100 WBC 0-0 (BEAKER) (test code = 413) POCT-GLUCOSE [id number] 03:20:00 Test Item Value Reference Range Interpretation Comments POC-GLUCOSE METER 149 mg/dL 70-110 H : TESTED A T [facility] 6720 (BEAKER) (test code = [facility], 153) 57776: Brinell Tester/Techni martita ID = [id number] for Ma rin, Deanna POCT-GLUCOSE [id number] 02:19:00 Test Item Value Reference Range Interpretation Comments POC-GLUCOSE METER 150 mg/dL 70-110 H : TESTED A T [facility] 6720 (BEAKER) (test code = [facility], 153) 31423: Brinell Tester/Techni martita ID = [id number] for Ma rin, Deanna POCT-GLUCOSE [id number] 01:19:00 Test Item Value Reference Range Interpretation Comments POC-GLUCOSE METER 166 mg/dL 70-110 H : TESTED A T [facility] 6720 (BEAKER) (test code = [facility], 1538) 55904: Brinell Tester/Techni martita ID = [id number] for Deanna Howell [id number] 01:07:00 Test Item Value Reference Range Interpretation Comments HAPTOGLOBIN (BEAKER) (test code = 261 mg/dL 14-258 H 366) Brinell Tester ID - DBIRON, TIBC, % SAT. (WITHOUT FERRITIN)2020-02-04 00:59:00 Test Item Value Reference Range Interpretation Comments IRON (BEAKER) (test code = 547) 20.0 ug/dL 40.0-160.0 L TOTAL IRON BINDING CAPACITY 118 ug/dL 250-450 L (BEAKER) (test code = 769) IRON % SATURATION (2) (BEAKER) 17 % 20-55 L (test code = 2590) Brinell Tester ID - DBLACTIC ACID, [id number] 00:40:00 Test Item Value Reference Range Interpretation Comments LACTATE BLOOD VENOUS (2) (BEAKER) 0.62 mmol/L 0.50-2.20 (test code = 2872) Brinell Tester ID - DBPOCT-GLUCOSE [id number] 00:25:00 Test Item Value Reference Range Interpretation Comments POC-GLUCOSE METER 147 mg/dL 70-110 H : TESTED A T [facility] 6720 (BEAKER) (test code = [facility], 1538) 40603: Brinell Tester/Techni martita ID = [id number] for Ghanshyam Howelll CBC (HEMOGRAM ONLY)2020-02-04 00:23:00 Test Item Value Reference Range Interpretation Comments WHITE BLOOD CELL COUNT (BEAKER) 9.8 K/ L 3.5-10.5 (test code = 775) RED BLOOD CELL COUNT (BEAKER) 2.44 M/ L 3.93-5.22 L (test code = 761) HEMOGLOBIN (BEAKER) (test code = 7.7 GM/DL 11.2-15.7 L 410) HEMATOCRIT (BEAKER) (test code = 23.6 % 34.1-44.9 L 411) MEAN CORPUSCULAR VOLUME (BEAKER) 96.7 fL 79.4-94.8 H (test code = 753) MEAN CORPUSCULAR HEMOGLOBIN 31.6 pg 25.6-32.2 (BEAKER) (test code = 751) MEAN CORPUSCULAR HEMOGLOBIN CONC 32.6 GM/DL 32.2-35.5 (BEAKER) (test code = 752) RED CELL DISTRIBUTION WIDTH 15.2 % 11.7-14.4 H (BEAKER) (test code = 412) PLATELET COUNT (BEAKER) (test 231 K/CU MM 150-450 code = 756) MEAN PLATELET VOLUME (BEAKER) 10.7 fL 9.4-12.3 (test code = 754) NUCLEATED RED BLOOD CELLS 0 /100 WBC 0-0 (BEAKER) (test code = 413) POCT-GLUCOSE [id number] 23:39:00 Test Item Value Reference Range Interpretation Comments POC-GLUCOSE METER 145 mg/dL 70-110 H : TESTED A T [facility] 6720 (BEAKER) (test code = [facility], 153) 91566: Brinell Tester/Techni martita ID = [id number] for Ma rin, Deanna POCT-GLUCOSE [id number] 23:01:00 Test Item Value Reference Range Interpretation Comments POC-GLUCOSE METER 130 mg/dL 70-110 H : TESTED A T [facility] 6720 (BEAKER) (test code = [facility], 1538) 60666: Brinell Tester/Techni martita ID = [id number] for Ma rin, Deanna POCT-GLUCOSE [id number] 22:36:00 Test Item Value Reference Range Interpretation Comments POC-GLUCOSE METER 118 mg/dL 70-110 H : TESTED A T [facility] 6720 (BEAKER) (test code = [facility], 1538) 04832: Brinell Tester/Techni martita ID = [id number] for Ma rin, Deanna POCT-GLUCOSE [id number] 22:15:00 Test Item Value Reference Range Interpretation Comments POC-GLUCOSE METER 116 mg/dL 70-110 H : TESTED A T [facility] 6720 (BEAKER) (test code = [facility], 1538) 50408: Brinell Tester/Techni martita ID = [id number] for Ma rin, Deanna POCT-GLUCOSE [id number] 22:00:00 Test Item Value Reference Range Interpretation Comments POC-GLUCOSE METER 94 mg/dL 70-110 : TESTED A T [facility] 6720 (BEAKER) (test code = [facility], 1538) 50548: Brinell Tester/Techni martita ID = [id number] for Luna n, Deanna POCT-GLUCOSE [id number] 21:41:00 Test Item Value Reference Range Interpretation Comments POC-GLUCOSE METER 99 mg/dL 70-110 : TESTED A T [facility] 6720 (BEAKER) (test code = [facility], 1538) 01970: Brinell Tester/Techni martita ID = [id number] for Luna n, Deanna POCT-GLUCOSE [id number] 19:49:00 Test Item Value Reference Range Interpretation Comments POC-GLUCOSE METER 113 mg/dL 70-110 H : TESTED A T [facility] 6720 (BEAKER) (test code = [facility], 1538) 75430: Brinell Tester/Techni martita ID = [id number] for Suzan cabello, Deanna CT, [id number] 18:35:00Dialysis 05/23Unlisted Reason for Exam - Click Yes and Enter Reason Below->YesUnlisted Reason for Exam->S/p kidney transplant infectionFINAL REPORT TECHNIQUE: CT of the chest, abdomen, and pelvis WITHOUT intravenous contrast and WITHOUT oral contrast. Dose modulation, iterative reconstruction, and/or weight-based adjustment of the mA/kV was utilized to reduce the radiation dose to as low as reasonably achievable. INDICATION: Unlisted Reason for ExamS/p kidney transplant infection. Shortness of breath COMPARISON: Chest CT from 01/20/2020. CT of the abdomen from 03/16/2019. Ultrasound from 02/02/2020 FINDINGS: ABSENCE OF INTRAVENOUS CONTRAST DECREASES SENSITIVITY FOR DETECTION OF FOCAL LESIONS AND VASCULAR PATHOLOGY. LINES/TUBES: None. LUNGS AND AIRWAYS: Mild bibasilar subsegmental atelectasis.PLEURA: The pleural spaces are clear.HEART AND MEDIASTINUM: The visualized thyroid gland is normal. No significant mediastinal, hilar, or axillary lymphadenopathy. The heart and pericardium are within normal limits. Marked coronary arterial calcification. HEPATOBILIARY: The liver is enlarged. No focal hepatic lesions. Prior cholecystectomy. No biliary ductal dilatation.SPLEEN: 13.8 cm splenomegaly.PANCREAS: No focal masses or ductal dilatation. ADRENALS: No adrenal nodules.KIDNEYS/URETERS: The [place] kidneys are atrophic. No hydronephrosis, stones, or exophytic masses. The left lower quadrant transplant kidney is inplace with an ureteral stent in the expected location.PELVIC ORGANS/BLADDER: Saenz catheter in the bladder. Prior hysterectomy. PERITONEUM/RETROPERITONEUM: There is a trace amount of fluid adjacent to the left lower quadrant transplant kidney.LYMPH NODES: No lymphadenopathy.VESSELS: Unremarkable. GI TRACT: No distention or wall thickening. Mild diverticulosis of the sigmoid colon. Mild diverticulosisof the right colon. The appendix is normal. BONES AND SOFT TISSUES: Moderate degenerative disc changes at L4-L5 with a moderate-sized posterior disc osteophyte complex. IMPRESSION: 1.The trace amount of fluid adjacent to the left lower quadrant transplant kidney was better evaluated on the recent ultr asound. 2.Otherwise, no abnormality in the chest, abdomen, or pelvis to suggest an infection. 3.Hepatosplenomegaly. Signed: Bret Castorena [facility] Verified Date/Time: 02/03/2020 18:35:58 Reading Location: [address] Body Reading Room , CHEST, WITHOUT [id number] 18:35:00Dialysis 05/23Unlisted Reason for Exam - Click Yes and Enter Reason Below->YesUnlisted Reason for Exam- >Source of infectionFINAL REPORT TECHNIQUE: CT of the chest, abdomen, and pelvis WITHOUT intravenous contrast and WITHOUT oral contrast. Dose modulation, iterative reconstruction, and/or weight-based adjustment of the mA/kV was utilized to reduce the radiation dose to as low as reasonably achievable. INDICATION: Unlisted Reason for ExamS/p kidney transplant infection. Shortness of breath COMPARISON: Chest CT from 01/20/2020. CT of the abdomen from 03/16/2019. Ultrasound from 02/02/2020 FINDINGS: ABSENCE OF INTRAVENOUS CONTRAST DECREASES SENSITIVITY FOR DETECTION OF FOCAL LESIONS AND VASCULAR PATHOLOGY. LINES/TUBES: None. LUNGS AND AIRWAYS: Mild bibasilar subsegmental atelectasis.PLEURA: The pleural spaces are clear.HEART AND MEDIASTINUM: The visualized thyroid gland is normal. No significant mediastinal, hilar, or axillary lymphadenopathy. The heart and pericardium are within normal limits. Marked coronary arterial calcification. HEPATOBILIARY: The liver is enlarged. No focal hepatic lesions. Prior cholecystectomy. No biliary ductal dilatation.SPLEEN: 13.8 cm splenomegaly.PANCREAS: No focal masses or ductal dilatation. ADRENALS: No adrenal nodules.KIDNEYS/URETERS: The [place] kidneys are atrophic. No hydronephrosis, stones, or exophytic masses. The left lower quadrant transplant kidney is inplace with an ureteral stent in the expected location.PELVIC ORGANS/BLADDER: Saenz catheter in the bladder. Prior hysterectomy. PERITONEUM/RETROPERITONEUM: There is a trace amount of fluid adjacent to the left lower quadrant transplant kidney.LYMPH NODES: No lymphadenopathy.VESSELS: Unremarkable. GI TRACT: No distention or wall thickening. Mild diverticulosis of the sigmoid colon. Mild diverticulosisof the right colon. The appendix is normal. BONES AND SOFT TISSUES: Moderate degenerative disc changes at L4-L5 with a moderate-sized posterior disc osteophyte complex. IMPRESSION: 1.The trace amount of fluid adjacent to the left lower quadrant transplant kidney was better evaluated on the recent ultr asound. 2.Otherwise, no abnormality in the chest, abdomen, or pelvis to suggest an infection. 3.Hepatosplenomegaly. Signed: Bret Castorena [facility] Verified Date/Time: 02/03/2020 18:35:58 Reading Location: [facility] CT Body Reading Room (CELLAVISION MANUAL DIFF)2020-02-03 17:44:00 Test Item Value Reference Range Interpretation Comments NEUTROPHILS - REL 87 % (CELLAVISION)(BEAKER) (test code = 2816) LYMPHOCYTES - REL 2 % (CELLAVISION)(BEAKER) (test code = 2817) MONOCYTES - REL 2 % (CELLAVISION)(BEAKER) (test code = 2818) BANDS - REL (CELLAVISION)(BEAKER) 7 % 0-10 (test code = 2826) ATYPICAL LYMPHOCYTES - REL 2 % 0-0 H (CELLAVISION)(BEAKER) (test code = 2829) NEUTROPHILS - ABS 8.87 K/ul 1.56-6.13 H (CELLAVISION)(BEAKER) (test code = 2830) LYMPHOCYTES - ABS 0.20 K/ul 1.18-3.74 L (CELLAVISION)(BEAKER) (test code = 2831) MONOCYTES - ABS 0.20 K/uL 0.24-0.36 L (CELLAVISION)(BEAKER) (test code = 2832) BANDS - ABS (CELLAVISION)(BEAKER) 0.71 K/uL 0.00-0.80 (test code = 2840) ATYPICAL LYMPHOCYTES - ABS 0.20 K/uL 0.00-0.00 H (CELLAVISION)(BEAKER) (test code = 2858) TOTAL COUNTED (BEAKER) (test code 100 = 1351) MANUAL NRBC PER 100 CELLS 1 /100 WBC 0-0 H (BEAKER) (test code = 1353) WBC MORPHOLOGY (BEAKER) (test Normal code = 487) PLT MORPHOLOGY (BEAKER) (test Normal code = 486) POLYCHROMATOPHILLIC RBCS(BEAKER) 3+ many (test code = 478) ANISOCYTOSIS (BEAKER) (test code 2+ moderate = 961) MACROCYTES (BEAKER) (test code = 2+ moderate 964) POIKILOCYTES (BEAKER) (test code 1+ few = 966) ROULEAUX (BEAKER) (test code = 1+ few 763) SPHEROCYTES (BEAKER) (test code = 1+ few 768) PLATELET CONCENTRATION Adequate (CELLAVISION)(BEAKER) (test code = 3438) Brinell Tester ID - bon Wang comments: Slide comments:LACTATE DEHYDROGENASE (LDH)2020-02-03 17:39:00 Test Item Value Reference Range Interpretation Comments LACTATE DEHYDROGENASE (BEAKER) (test 173 U/L 125-220 code = 635) Brinell Tester ID - DBURIC [id number] 17:39:00 Test Item Value Reference Range Interpretation Comments URIC ACID (BEAKER) (test code = 10.3 mg/dL 2.6-7.2 H 773) Brinell Tester ID - DBPOCT-GLUCOSE [id number] 17:37:00 Test Item Value Reference Range Interpretation Comments POC-GLUCOSE METER 128 mg/dL 70-110 H : [facility] (BEAKER) (test code = [facility], 1538) 71214: Brinell Tester/Techni martita ID = [id number] for THEA GALLAGHER LACTIC ACID, [id number] 17:17:00 Test Item Value Reference Range Interpretation Comments LACTATE BLOOD VENOUS 1.28 mmol/L 0.50-2.20 Specime n slightly (2) (BEAKER) (test hemolyzed code = 2872) Brinell Tester ID - BSCBC W/PLT COUNT & AUTO [id number] 17:04:00 Test Item Value Reference Range Interpretation Comments WHITE BLOOD CELL COUNT (BEAKER) 10.2 K/ L 3.5-10.5 (test code = 775) RED BLOOD CELL COUNT (BEAKER) 2.24 M/ L 3.93-5.22 L (test code = 761) HEMOGLOBIN (BEAKER) (test code = 6.9 GM/DL 11.2-15.7 L 410) HEMATOCRIT (BEAKER) (test code = 21.8 % 34.1-44.9 L 411) MEAN CORPUSCULAR VOLUME (BEAKER) 97.3 fL 79.4-94.8 H (test code = 753) MEAN CORPUSCULAR HEMOGLOBIN 30.8 pg 25.6-32.2 (BEAKER) (test code = 751) MEAN CORPUSCULAR HEMOGLOBIN CONC 31.7 GM/DL 32.2-35.5 L (BEAKER) (test code = 752) RED CELL DISTRIBUTION WIDTH 15.2 % 11.7-14.4 H (BEAKER) (test code = 412) PLATELET COUNT (BEAKER) (test 234 K/CU MM 150-450 code = 756) MEAN PLATELET VOLUME (BEAKER) 10.5 fL 9.4-12.3 (test code = 754) NUCLEATED RED BLOOD CELLS 0 /100 WBC 0-0 (BEAKER) (test code = 413) RETICULOCYTE [id number] 16:32:00 Test Item Value Reference Range Interpretation Comments RETICULOCYTE COUNT PCT (BEAKER) (test 4.1 % 0.5-1.7 H code = 575) Brinell Tester ID - [id number], BRAIN, WITHOUT [id number] 16:30:00Dialysis 05/23Unlisted Reason for Exam - Click Yes and Enter Reason Below->YesUnlisted Reason for Exam->Possible seizure activity. Hx of Sz, unknown cause.FINAL REPORT CT, BRAIN, WITHOUT CONTRAST INDICATION: Unlisted Reason for ExamPossible seizure activity. Hx of Sz, unknown cause. TECHNIQUE: Noncontrast axial imaging was obtainedfrom the vertex to the skull base. Axial images were reconstructed using a bone algorithm. DOSE REDUCTION: Dose modulation, iterative reconstruction, and/or weight-based adjustment of the mA/kV was utilized to reduce the radiation dose to as low as reasonably achievable. COMPARISON: CT 05/17/2019 FINDINGS: Intracranial: No intracranial hemorrhage or abnormal extra-axial collection. No evidence of acuteterritorial infarct. No mass effect. No hydrocephalus. Mild generalized cerebral volume loss. Scattered foci of hypoattenuation within the periventricular and subcortical white matter are a nonspecific finding commonly attributed to chronic small vessel ischemic disease. Osseous structures: No fracture. No suspicious lesion. Paranasal sinuses and mastoid air cells: No evidence of sinusitis. Mastoidsare clear. Orbital contents: Globes are intact. IMPRESSION: No acute intracranial hemorrhage or CT evidence of territorial infarct. If there is persistent clinical concern for intracranial pathology, MR examination is recommended for further characterization. Signed: Tiffanie Browning [facility] Verified Date/Time: 02/03/2020 16:30:33 BASI METABOLIC [id number] 15:49:00 Test Item Value Reference Range Interpretation Comments SODIUM (BEAKER) 142 meq/L 136-145 (test code = 381) POTASSIUM (BEAKER) 4.0 meq/L 3.5-5.1 (test code = 379) CHLORIDE (BEAKER) 112 meq/L 98-107 H (test code = 382) CO2 (BEAKER) (test 22 meq/L 22-29 code = 355) BLOOD UREA NITROGEN 45 mg/dL 7-21 H (BEAKER) (test code = 354) CREATININE (BEAKER) 1.87 mg/dL 0.57-1.25 H (test code = 358) GLUCOSE RANDOM 158 mg/dL 70-105 H (BEAKER) (test code = 652) CALCIUM (BEAKER) 8.8 mg/dL 8.4-10.2 (test code = 697) EGFR (BEAKER) (test 29 mL/min/1.73 ESTIMA BRII GFR IS code = 1092) sq m NOT ACCURATE CREATININE CLEARANCE IN PREDICTING GLOMERULAR FILTRATION RATE . ESTIMATED GFR I S NOT APPLICABLE FOR DIALYSIS PATIEN TS. Brinell Tester ID - [id number] 15:47:00 Test Item Value Reference Range Interpretation Comments PHOSPHORUS (BEAKER) (test code = 2.8 mg/dL 2.3-4.7 604) Brinell Tester ID - [id number] 15:47:00 Test Item Value Reference Range Interpretation Comments MAGNESIUM (BEAKER) (test code = 2.4 mg/dL 1.6-2.6 627) Brinell Tester ID - BSHEPATIC FUNCTION [id number] 15:47:00 Test Item Value Reference Range Interpretation Comments TOTAL PROTEIN (BEAKER) (test code = 6.1 gm/dL 6.0-8.3 770) ALBUMIN (BEAKER) (test code = 1145) 3.1 g/dL 3.5-5.0 L BILIRUBIN TOTAL (BEAKER) (test code 0.7 mg/dL 0.2-1.2 = 377) BILIRUBIN DIRECT (BEAKER) (test 0.6 mg/dL 0.1-0.5 H code = 706) ALKALINE PHOSPHATASE (BEAKER) (test 78 U/L 40-150 code = 346) AST (SGOT) (BEAKER) (test code = 22 U/L 5-34 353) ALT (SGPT) (BEAKER) (test code = 38 U/L 6-55 347) Brinell Tester ID - [id number] 15:44:00 Test Item Value Reference Range Interpretation Comments PROCALCITONIN (BEAKER) (test code 71.75 ng/mL <0.05 HH = 3036) SEPSIS RISK (ng/mL)Low: 0.05-0.50Intermediate: 0.51-2.00High: >=2.01CBC (HEMOGRAM ONLY)2020-02-03 15:09:00 Test Item Value Reference Range Interpretation Comments WHITE BLOOD CELL COUNT (BEAKER) 9.8 K/ L 3.5-10.5 (test code = 775) RED BLOOD CELL COUNT (BEAKER) 2.21 M/ L 3.93-5.22 L (test code = 761) HEMOGLOBIN (BEAKER) (test code = 6.8 GM/DL 11.2-15.7 L 410) HEMATOCRIT (BEAKER) (test code = 21.4 % 34.1-44.9 L 411) MEAN CORPUSCULAR VOLUME (BEAKER) 96.8 fL 79.4-94.8 H (test code = 753) MEAN CORPUSCULAR HEMOGLOBIN 30.8 pg 25.6-32.2 (BEAKER) (test code = 751) MEAN CORPUSCULAR HEMOGLOBIN CONC 31.8 GM/DL 32.2-35.5 L (BEAKER) (test code = 752) RED CELL DISTRIBUTION WIDTH 15.2 % 11.7-14.4 H (BEAKER) (test code = 412) PLATELET COUNT (BEAKER) (test 245 K/CU MM 150-450 code = 756) MEAN PLATELET VOLUME (BEAKER) 10.5 fL 9.4-12.3 (test code = 754) NUCLEATED RED BLOOD CELLS 0 /100 WBC 0-0 (BEAKER) (test code = 413) POCT-GLUCOSE [id number] 14:25:00 Test Item Value Reference Range Interpretation Comments POC-GLUCOSE METER 166 mg/dL 70-110 H : TESTED A T [facility] 6720 (BEAKER) (test code = [facility], 1538) [id number]: [place]inell Tester/Techni martita ID = [id number] for JEM OAKES POCT-GLUCOSE [id number] 14:25:00 Test Item Value Reference Range Interpretation Comments POC-GLUCOSE METER 160 mg/dL 70-110 H : TESTED A T [facility] 6720 (BEAKER) (test code = [facility], 1538) [id number]: [place] Tester/Techni martita ID = [id number] for JEM OAKES TACROLIMUS [id number] 13:12:00 Test Item Value Reference Range Interpretation Comments TACROLIMUS BLOOD (BEAKER) (test 9.5 ng/mL 10.0-20.0 L code = 657) Brinell Tester ID - JAMIE LOPEZOOD GAS, [id number] 12:51:00 Test Item Value Reference Range Interpretation Comments PH VENOUS (BEAKER) (test code = 7.39 7.32-7.42 701) PCO2 VENOUS (BEAKER) (test code = 36 mmHg 41-51 L 755) PO2 VENOUS (BEAKER) (test code = 108 mmHg 25-40 H 702) O2 SATURATION VENOUS (BEAKER) 97.9 % 40.0-70.0 H (test code = 703) HCO3 VENOUS (BEAKER) (test code = 21 mmol/L 21-29 705) BASE EXCESS VENOUS (BEAKER) (test -3.3 mmol/L -2.0-3.0 L code = 704) PATIENT TEMPERATURE (BEAKER) 37.0 C (test code = 1818) FIO2 (BEAKER) (test code = 1819) 30.0 % LACTIC ACID, [id number] 12:41:00 Test Item Value Reference Range Interpretation Comments LACTATE BLOOD VENOUS (2) (BEAKER) 1.89 mmol/L 0.50-2.20 (test code = 2872) Brinell Tester ID - WILI [id number] 12:37:00 Test Item Value Reference Range Interpretation Comments AMMONIA (BEAKER) (test code = 348) 34 mol/L 18-72 Brinell Tester ID - RICHELLE LPOCT-GLUCOSE [id number] 11:35:00 Test Item Value Reference Range Interpretation Comments POC-GLUCOSE METER 175 mg/dL 70-110 H : TESTED A T [facility] 6720 (BEAKER) (test code = [facility] [place], 1538) [address]: Brinell Tester/Techni martita ID = [id number] for THEA GALLAGHER RAD, CHEST, 1 VIEW, NON [id number] 10:03:00Dialysis 05/23Reason for exam:- >Infectious workupShould this be performed at the bedside?->YesFINAL REPORT INDICATION: Infectious workup COMPARISON: 02/01/2020 TECHNIQUE: Single frontal view of the chest. FINDINGS: Lungs and pleura: Clear lungs. Small left effusion versus pleural thickening, unchanged.Heart and mediastinum: Normal heart size. Unremarkable mediastinal contours.Osseous structures: No acute abnormality.Other: None. IMPRESSION: No acute intrathoracic abnormality. Signed: Lisa Wright MDReport Verified Date/Time: 02/03/2020 10:03:48 Reading Location: [facility] Radiology Reading Room URINALYSIS W/ REFLEX URINE [id number] 09:49:00 Test Item Value Reference Range Interpretation Comments COLOR (BEAKER) (test code = 470) Yellow CLARITY (BEAKER) (test code = 469) Hazy SPECIFIC GRAVITY UA (BEAKER) (test 1.015 1.001-1.035 code = 468) PH UA (BEAKER) (test code = 467) 5.5 5.0-8.0 PROTEIN UA (BEAKER) (test code = [...] RBC UA (BEAKER) (test code = 519) 23 /HPF WBC UA (BEAKER) (test code = 520) 0 /HPF MUCUS (BEAKER) (test code = 1574) Rare SQUAMOUS EPITHELIAL (BEAKER) (test < /HPF code = 516) SOURCE(BEAKER) (test code = 2795) Brinell Tester ID - [auto]Brinell Tester ID - techBASIC METABOLIC [id number] 09:01:00 Test Item Value Reference Range Interpretation Comments SODIUM (BEAKER) 141 meq/L 136-145 (test code = 381) POTASSIUM (BEAKER) 4.5 meq/L 3.5-5.1 (test code = 379) CHLORIDE (BEAKER) 111 meq/L 98-107 H (test code = 382) CO2 (BEAKER) (test 20 meq/L 22-29 L code = 355) BLOOD UREA NITROGEN 44 mg/dL 7-21 H (BEAKER) (test code = 354) CREATININE (BEAKER) 2.08 mg/dL 0.57-1.25 H (test code = 358) GLUCOSE RANDOM 124 mg/dL 70-105 H (BEAKER) (test code = 652) CALCIUM (BEAKER) 9.2 mg/dL 8.4-10.2 (test code = 697) EGFR (BEAKER) (test 25 mL/min/1.73 ESTIMA BRII GFR IS code = 1092) sq m NOT ACCURATE CREATININE CLEARANCE IN PREDICTING GLOMERULAR FILTRATION RATE . ESTIMATED GFR I S NOT APPLICABLE FOR DIALYSIS PATIEN TS. Brinell Tester ID - WILI MTACROLIMUS [id number] 08:59:00 Test Item Value Reference Range Interpretation Comments TACROLIMUS BLOOD (BEAKER) (test 11.3 ng/mL 10.0-20.0 code = 657) Brinell Tester ID - JAMIE [id number] 08:47:00 Test Item Value Reference Range Interpretation Comments PHOSPHORUS (BEAKER) (test code = 3.1 mg/dL 2.3-4.7 604) Brinell Tester ID - WILI [id number] 08:47:00 Test Item Value Reference Range Interpretation Comments MAGNESIUM (BEAKER) (test code = 2.4 mg/dL 1.6-2.6 627) Brinell Tester ID - WILI MCBC (HEMOGRAM ONLY)2020-02-03 08:23:00 Test Item Value Reference Range Interpretation Comments WHITE BLOOD CELL COUNT (BEAKER) 10.5 K/ L 3.5-10.5 (test code = 775) RED BLOOD CELL COUNT (BEAKER) 2.10 M/ L 3.93-5.22 L (test code = 761) HEMOGLOBIN (BEAKER) (test code = 6.6 GM/DL 11.2-15.7 L 410) HEMATOCRIT (BEAKER) (test code = 20.4 % 34.1-44.9 L 411) MEAN CORPUSCULAR VOLUME (BEAKER) 97.1 fL 79.4-94.8 H (test code = 753) MEAN CORPUSCULAR HEMOGLOBIN 31.4 pg 25.6-32.2 (BEAKER) (test code = 751) MEAN CORPUSCULAR HEMOGLOBIN CONC 32.4 GM/DL 32.2-35.5 (BEAKER) (test code = 752) RED CELL DISTRIBUTION WIDTH 15.4 % 11.7-14.4 H (BEAKER) (test code = 412) PLATELET COUNT (BEAKER) (test 244 K/CU MM 150-450 code = 756) MEAN PLATELET VOLUME (BEAKER) 10.3 fL 9.4-12.3 (test code = 754) NUCLEATED RED BLOOD CELLS 0 /100 WBC 0-0 (BEAKER) (test code = 413) POCT-GLUCOSE [id number] 06:47:00 Test Item Value Reference Range Interpretation Comments POC-GLUCOSE METER 133 mg/dL 70-110 H : TESTED A T [facility] 6720 (BEAKER) (test code = [facility], 1538) [address]: Brinell Tester/Techni martita ID = [id number] for Suzan rtin, Sheley - Ngozi LACTIC ACID, [id number] 05:59:00 Test Item Value Reference Range Interpretation Comments LACTATE BLOOD VENOUS (2) (BEAKER) 2.40 mmol/L 0.50-2.20 H (test code = 2872) Brinell Tester ID - WILI MPOCT-GLUCOSE [id number] 04:53:00 Test Item Value Reference Range Interpretation Comments POC-GLUCOSE METER 141 mg/dL 70-110 H : TESTED A T [facility] 6720 (BEAKER) (test code = [facility], 1538) [address]: Brinell Tester/Techni martita ID = [id number] for Suzan rtin, Sheley - Ngozi VANCOMYCIN LEVEL, [id number] 04:03:00 Test Item Value Reference Range Interpretation Comments VANCOMYCIN RANDOM (BEAKER) (test 5.9 ug/mL code = 523) Reference Range: No NormalsOperator ID - WILI [id number] 03:58:00 Test Item Value Reference Range Interpretation Comments POTASSIUM (BEAKER) (test code = 4.5 meq/L 3.5-5.1 379) Brinell Tester ID - WILI [id number] 03:58:00 Test Item Value Reference Range Interpretation Comments MAGNESIUM (BEAKER) (test code = 1.9 mg/dL 1.6-2.6 627) Brinell Tester ID - WILI MPOCT-GLUCOSE [id number] 03:51:00 Test Item Value Reference Range Interpretation Comments POC-GLUCOSE METER 132 mg/dL 70-110 H : TESTED A T [facility] 6720 (BEAKER) (test code = [facility], 1538) [address]: Brinell Tester/Techni martita ID = [id number] for DO August PROTHROMBIN TIME/[id number] 03:43:00 Test Item Value Reference Range Interpretation Comments PROTIME (BEAKER) (test code = 20.1 seconds 11.9-14.2 H 759) INR (BEAKER) (test code = 370) 1.77 <=5.90 Effective 10/07/2018: PT Reference Range ChangeNew: 11.9-14.2 Previous: 11.7- 14.7RECOMMENDED COUMADIN/WARFARIN INR THERAPY RANGESSTANDARD DOSE: 2.0-3.0 Includes: PROPHYLAXIS for venous thrombosis, systemic embolization; TREATMENT for venous thrombosis and/or pulmonary embolus.HIGH RISK: Target INR is2.5-3.5 for patients wiht mechanical heart valves.[id number] 03:43:00 Test Item Value Reference Range Interpretation Comments PARTIAL THROMBOPLASTIN TIME 37.1 seconds 22.5-36.0 H (BEAKER) (test code = 760) POCT-GLUCOSE [id number] 02:57:00 Test Item Value Reference Range Interpretation Comments POC-GLUCOSE METER 143 mg/dL 70-110 H : TESTED A T [facility] 6720 (BEAKER) (test code = [facility] [employer] [facility], 1538) [address]: Brinell Tester/Techni martita ID = [id number] for Suzan raegan Jesús Emerald Ngozi POCT-GLUCOSE [id number] 01:53:00 Test Item Value Reference Range Interpretation Comments POC-GLUCOSE METER 154 mg/dL 70-110 H : TESTED A T [facility] 6720 (BEAKER) (test code = [facility] [employer] [facility], 1538) [address]: Brinell Tester/Techni martita ID = [id number] for Suzan sanchez, Jesús - Ngozi BLOOD GAS, [id number] 01:49:00 Test Item Value Reference Range Interpretation Comments PH ARTERIAL (BEAKER) (test code = 7.35 7.35-7.45 383) PCO2 ARTERIAL (BEAKER) (test code 34 mmHg 35-45 L = 384) PO2 ARTERIAL (BEAKER) (test code 57 mmHg 80-90 L = 385) O2 SATURATION ARTERIAL (BEAKER) 88.6 % 96.0-97.0 L (test code = 386) HCO3 ARTERIAL (BEAKER) (test code 18 mmol/L 21-29 L = 388) BASE EXCESS ARTERIAL (BEAKER) -6.6 mmol/L -2.0-3.0 L (test code = 387) PATIENT TEMPERATURE (BEAKER) 37.1 C (test code = 1818) FIO2 (BEAKER) (test code = 1819) 30.0 % POCT-GLUCOSE [id number] 00:30:00 Test Item Value Reference Range Interpretation Comments POC-GLUCOSE METER 158 mg/dL 70-110 H : TESTED A T [facility] 6720 (BEAKER) (test code = [facility], 1538) [address]: Brinell Tester/Techni martita ID = [id number] for Suzan rtin, Sheley - Ngozi LACTIC ACID, [id number] 23:16:00 Test Item Value Reference Range Interpretation Comments LACTATE BLOOD VENOUS (2) (BEAKER) 2.72 mmol/L 0.50-2.20 H (test code = 2872) Brinell Tester ID - RICHELLE LPOCT-GLUCOSE [id number] 23:02:00 Test Item Value Reference Range Interpretation Comments POC-GLUCOSE METER 158 mg/dL 70-110 H : TESTED A T [facility] 6720 (BEAKER) (test code = [facility], 1538) [address]: Brinell Tester/Techni martita ID = [id number] for Suzan rtin, Sheley - Ngozi POCT-GLUCOSE [id number] 21:53:00 Test Item Value Reference Range Interpretation Comments POC-GLUCOSE METER 160 mg/dL 70-110 H : TESTED A T [facility] 6720 (BEAKER) (test code = [facility], 1538) [address]: Brinell Tester/Techni martita ID = [id number] for Ma rtin, Sheley - Ngozi BASIC METABOLIC [id number] 21:10:00 Test Item Value Reference Range Interpretation Comments SODIUM (BEAKER) 136 meq/L 136-145 (test code = 381) POTASSIUM (BEAKER) 4.9 meq/L 3.5-5.1 Specimen slightly (test code = 379) hemolyzed CHLORIDE (BEAKER) 109 meq/L 98-107 H (test code = 382) CO2 (BEAKER) (test 17 meq/L 22-29 L code = 355) BLOOD UREA NITROGEN 42 mg/dL 7-21 H (BEAKER) (test code = 354) CREATININE (BEAKER) 2.42 mg/dL 0.57-1.25 H Specimen slightly (test code = 358) hemolyzed GLUCOSE RANDOM 152 mg/dL 70-105 H (BEAKER) (test code = 652) CALCIUM (BEAKER) 9.2 mg/dL 8.4-10.2 (test code = 697) EGFR (BEAKER) (test 21 mL/min/1.73 ESTIMA BRII GFR IS code = 1092) sq m NOT ACCURATE CREATININE CLEARANCE IN PREDICTING GLOMERULAR FILTRATION RATE . ESTIMATED GFR I S NOT APPLICABLE FOR DIALYSIS PATIEN TS. Brinell Tester ID - [id number] 21:05:00 Test Item Value Reference Range Interpretation Comments MAGNESIUM (BEAKER) 1.4 mg/dL 1.6-2.6 L Specimen slightly (test code = 627) hemolyzed Brinell Tester ID - [id number] 21:05:00 Test Item Value Reference Range Interpretation Comments PHOSPHORUS (BEAKER) 2.3 mg/dL 2.3-4.7 Specimen slightly (test code = 604) hemolyzed Brinell Tester ID - BSPOCT-GLUCOSE [id number] 20:59:00 Test Item Value Reference Range Interpretation Comments POC-GLUCOSE METER 170 mg/dL 70-110 H : [facility] (BEAKER) (test code = [place] [place], 1538) [address]: Brinell Tester/Techni martita ID = [id number] for Suzan Jesús sanchez CBC (HEMOGRAM ONLY)2020-02-02 20:57:00 Test Item Value Reference Range Interpretation Comments WHITE BLOOD CELL COUNT (BEAKER) 8.3 K/ L 3.5-10.5 (test code = 775) RED BLOOD CELL COUNT (BEAKER) 2.29 M/ L 3.93-5.22 L (test code = 761) HEMOGLOBIN (BEAKER) (test code = 7.4 GM/DL 11.2-15.7 L 410) HEMATOCRIT (BEAKER) (test code = 22.2 % 34.1-44.9 L 411) MEAN CORPUSCULAR VOLUME (BEAKER) 96.9 fL 79.4-94.8 H (test code = 753) MEAN CORPUSCULAR HEMOGLOBIN 32.3 pg 25.6-32.2 H (BEAKER) (test code = 751) MEAN CORPUSCULAR HEMOGLOBIN CONC 33.3 GM/DL 32.2-35.5 (BEAKER) (test code = 752) RED CELL DISTRIBUTION WIDTH 15.4 % 11.7-14.4 H (BEAKER) (test code = 412) PLATELET COUNT (BEAKER) (test 251 K/CU MM 150-450 code = 756) MEAN PLATELET VOLUME (BEAKER) 10.3 fL 9.4-12.3 (test code = 754) NUCLEATED RED BLOOD CELLS 0 /100 WBC 0-0 (BEAKER) (test code = 413) POCT-GLUCOSE [id number] 18:58:00 Test Item Value Reference Range Interpretation Comments POC-GLUCOSE METER 225 mg/dL 70-110 H : TESTED A T [facility] 6720 (BEAKER) (test code = [facility], 1538) [address]: Brinell Tester/Techni martita ID = [id number] for JEM OAKES POCT-GLUCOSE [id number] 17:49:00 Test Item Value Reference Range Interpretation Comments POC-GLUCOSE METER 240 mg/dL 70-110 H : TESTED A T [facility] 6720 (BEAKER) (test code = [facility], 1538) [address]: Brinell Tester/Techni martita ID = [id number] for Susan Zamarripa TSH/FREE T4 IF [id number] 17:09:00 Test Item Value Reference Range Interpretation Comments THYROID STIMULATING HORMONE 0.984 uIU/mL 0.350-4.940 (BEAKER) (test code = 772) Brinell Tester ID - BSLACTIC ACID, [id number] 16:57:00 Test Item Value Reference Range Interpretation Comments LACTATE BLOOD VENOUS (2) (BEAKER) 4.08 mmol/L 0.50-2.20 HH (test code = 2872) Brinell Tester ID - BSBASIC METABOLIC [id number] 16:51:00 Test Item Value Reference Range Interpretation Comments SODIUM (BEAKER) 129 meq/L 136-145 L (test code = 381) POTASSIUM (BEAKER) 4.1 meq/L 3.5-5.1 (test code = 379) CHLORIDE (BEAKER) 103 meq/L 98-107 (test code = 382) CO2 (BEAKER) (test 17 meq/L 22-29 L code = 355) BLOOD UREA NITROGEN 40 mg/dL 7-21 H (BEAKER) (test code = 354) CREATININE (BEAKER) 2.54 mg/dL 0.57-1.25 H (test code = 358) GLUCOSE RANDOM 270 mg/dL 70-105 H (BEAKER) (test code = 652) CALCIUM (BEAKER) 9.0 mg/dL 8.4-10.2 (test code = 697) EGFR (BEAKER) (test 20 mL/min/1.73 ESTIMA BRII GFR IS code = 1092) sq m NOT ACCURATE CREATININE CLEARANCE IN PREDICTING GLOMERULAR FILTRATION RATE . ESTIMATED GFR I S NOT APPLICABLE FOR DIALYSIS PATIEN TS. Brinell Tester ID - [id number] 16:49:00 Test Item Value Reference Range Interpretation Comments POTASSIUM (BEAKER) (test code = 4.1 meq/L 3.5-5.1 379) Brinell Tester ID - [id number] 16:49:00 Test Item Value Reference Range Interpretation Comments GLUCOSE RANDOM (BEAKER) (test code 270 mg/dL 70-105 H = 652) Brinell Tester ID - [id number] 15:52:00 Test Item Value Reference Range Interpretation Comments AMYLASE (BEAKER) (test code = 349) 9 U/L 25-125 L Brinell Tester ID - [id number] 15:52:00 Test Item Value Reference Range Interpretation Comments LIPASE (BEAKER) (test code = 749) 7 U/L 8-78 L Brinell Tester ID - AAHAMIDBASIC METABOLIC [id number] 15:44:00 Test Item Value Reference Range Interpretation Comments SODIUM (BEAKER) 129 meq/L 136-145 L (test code = 381) POTASSIUM (BEAKER) 4.3 meq/L 3.5-5.1 Specimen slightly (test code = 379) hemolyzed CHLORIDE (BEAKER) 102 meq/L 98-107 (test code = 382) CO2 (BEAKER) (test 14 meq/L 22-29 L code = 355) BLOOD UREA NITROGEN 41 mg/dL 7-21 H (BEAKER) (test code = 354) CREATININE (BEAKER) 2.59 mg/dL 0.57-1.25 H Specimen slightly (test code = 358) hemolyzed GLUCOSE RANDOM 363 mg/dL 70-105 H (BEAKER) (test code = 652) CALCIUM (BEAKER) 8.5 mg/dL 8.4-10.2 (test code = 697) EGFR (BEAKER) (test 20 mL/min/1.73 ESTIMA BRII GFR IS code = 1092) sq m NOT ACCURATE CREATININE CLEARANCE IN PREDICTING GLOMERULAR FILTRATION RATE . ESTIMATED GFR I S NOT APPLICABLE FOR DIALYSIS PATIEN TS. Brinell Tester ID - AAHAMIDPOCT-GLUCOSE [id number] 15:13:00 Test Item Value Reference Range Interpretation Comments POC-GLUCOSE METER 281 mg/dL 70-110 H : [facility] (BEAKER) (test code = [facility] [place], 1538) [address]: Brinell Tester/Techni martita ID = [id number] for FRIDA FELIPE TROPONIN [id number] 14:04:00 Test Item Value Reference Range Interpretation Comments [...] failure, acidosis, acute neurological disease, and persistent tachyarrhythmia.Brinell Tester ID - AAHAMIDHEMOGLOBIN A1C 2020-02-02 13:51:00 Test Item Value Reference Range Interpretation Comments HEMOGLOBIN A1C (BEAKER) (test code = 5.9 % 4.3-6.1 368) LACTIC ACID, [id number] 13:16:00 Test Item Value Reference Range Interpretation Comments LACTATE BLOOD VENOUS 5.73 mmol/L 0.50-2.20 HH Specime n moderately (2) (BEAKER) (test hemolyzed code = 2872) Brinell Tester ID - AAHAMIDKETONE, [id number] 13:00:00 Test Item Value Reference Range Interpretation Comments KETONES, BLOOD (BEAKER) (test code = < mmol/L <0.4 1103) POCT-BLOOD GASES, [id number] 12:39:00 Test Item Value Reference Range Interpretation Comments TEMP, CELSIUS-POC (BEAKER) (test code = 1834) FIO2-POC (BEAKER) (test code = 1835) PH, ARTERIAL-POC 7.390 7.350-7.450 (BEAKER) (test code = 1836) PCO2, ARTERIAL-POC 20.5 mm Hg 35.0-45.0 LL (BEAKER) (test code = 1837) PO2, ARTERIAL-POC 66.0 mm Hg 80.0-90.0 L (BEAKER) (test code = 1838) SO2, ARTERIAL-POC 93.0 % 96.0-97.0 L (BEAKER) (test code = 1839) HCO3, ARTERIAL-POC 12.4 meq/L 21.0-29.0 L (BEAKER) (test code = 1840) BASE EXCESS, -13.0 meq/L -2.0-3.0 L : TESTED AT [facility] 6720 ARTERIAL-POC [facility], (BEAKER) (test code [address]: = 1841) Brinell Tester/Techni martita ID = [id number] for IB AY, [place] [id number] 12:39:00 Test Item Value Reference Range Interpretation Comments POC-SODIUM (BEAKER) 130 meq/L 135-148 L : TESTED AT [place] [address] (test code = 1542) [facility], [address]: Brinell Tester/Techni martita ID = [id number] for IBAY , [place] [id number] 12:39:00 Test Item Value Reference Range Interpretation Comments POC-POTASSIUM 4.9 meq/L 3.6-5.5 : TESTED AT [place] [address] (BEAKER) (test code [facility], = 1540) [address]: Brinell Tester/Techni martita ID = [id number] for IBAY , [place] GREA-[id number] 12:39:00 Test Item Value Reference Range Interpretation Comments POC-HEMOGLOBIN 8.2 g/dL 12.0-15.0 L : TESTED AT [facility] 67 (BEAKER) (test code = [facility], 1856) [address]: Brinell Tester/Techni martita ID = [id number] for IBAY , [place] [id number] 12:39:00 Test Item Value Reference Range Interpretation Comments POC-HEMATOCRIT 24 % 36-45 L : Brinell Tester/Te chnician ID = ([facility]) (test code = 947555 for [place] REDDY 1857) POCT-CALCIUM [id number] 12:39:00 Test Item Value Reference Range Interpretation Comments POC-CALCIUM IONIZED 1.27 mmol/L 1.12-1.27 : TESTED AT [facility] ([facility]) (test code = [address]) [place], [address]: Brinell Tester/Techni martita ID = [id number] for [place] REDDY [id number] 12:39:00 Test Item Value Reference Range Interpretation Comments POC-GLUCOSE ([facility]) 445 mg/dL 70-110 HH : TESTE D AT [facility] 6720 (test code = 1855) [facility] [place], [address]: Brinell Tester/Techni martita ID = [id number] for [place] REDDY TACROLIMUS [id number] 12:36:00 Test Item Value Reference Range Interpretation Comments TACROLIMUS BLOOD ([facility]) (test 11.8 ng/mL 10.0-20.0 code = 657) Brinell Tester ID - MAYRA WPOCT-GLUCOSE [id number] 12:15:00 Test Item Value Reference Range Interpretation Comments POC-GLUCOSE METER 397 mg/dL 70-110 H : TESTED A T [facility] 67 ([facility]) (test code = [facility], 1538) [address]: Brinell Tester/Techni martita ID = [id number] for IONA WEAVER CBC W/PLT COUNT & AUTO [id number] 12:10:00 Test Item Value Reference Range Interpretation Comments WHITE BLOOD CELL COUNT ([facility]) 13.6 K/ L 3.5-10.5 H (test code = 775) RED BLOOD CELL COUNT (BEAKER) 2.59 M/ L 3.93-5.22 L (test code = 761) HEMOGLOBIN (BEAKER) (test code = 8.1 GM/DL 11.2-15.7 L 410) HEMATOCRIT (BEAKER) (test code = 25.6 % 34.1-44.9 L 411) MEAN CORPUSCULAR VOLUME (BEAKER) 98.8 fL 79.4-94.8 H (test code = 753) MEAN CORPUSCULAR HEMOGLOBIN 31.3 pg 25.6-32.2 (BEAKER) (test code = 751) MEAN CORPUSCULAR HEMOGLOBIN CONC 31.6 GM/DL 32.2-35.5 L (BEAKER) (test code = 752) RED CELL DISTRIBUTION WIDTH 15.1 % 11.7-14.4 H (BEAKER) (test code = 412) PLATELET COUNT (BEAKER) (test 251 K/CU MM 150-450 code = 756) MEAN PLATELET VOLUME (BEAKER) 10.2 fL 9.4-12.3 (test code = 754) NUCLEATED RED BLOOD CELLS 0 /100 WBC 0-0 (BEAKER) (test code = 413) (CELLAVISION MANUAL DIFF)2020-02-02 12:10:00 Test Item Value Reference Range Interpretation Comments NEUTROPHILS - REL 71 % (CELLAVISION)(BEAKER) (test code = 2816) LYMPHOCYTES - REL 8 % (CELLAVISION)(BEAKER) (test code = 2817) MONOCYTES - REL 2 % (CELLAVISION)(BEAKER) (test code = 2818) METAMYELOCYTES - REL 1 % 0-0 H (CELLAVISION)(BEAKER) (test code = 2821) BANDS - REL (CELLAVISION)(BEAKER) 18 % 0-10 H (test code = 2826) NEUTROPHILS - ABS 9.66 K/ul 1.56-6.13 H (CELLAVISION)(BEAKER) (test code = 2830) LYMPHOCYTES - ABS 1.09 K/ul 1.18-3.74 L (CELLAVISION)(BEAKER) (test code = 2831) MONOCYTES - ABS 0.27 K/uL 0.24-0.36 (CELLAVISION)(BEAKER) (test code = 2832) METAMYELOCYTES - ABS 0.14 K/uL 0.00-0.00 H (CELLAVISION)(BEAKER) (test code = 2836) BANDS - ABS (CELLAVISION)(BEAKER) 2.45 K/uL 0.00-0.80 H (test code = 2840) TOTAL COUNTED (BEAKER) (test code 100 = 1351) SMUDGE CELLS (BEAKER) (test code Present = 1371) GIANT PLATELETS (BEAKER) (test Present code = 313) POLYCHROMATOPHILLIC RBCS(BEAKER) 2+ moderate (test code = 478) ANISOCYTOSIS (BEAKER) (test code 1+ few = 961) MICROCYTES (BEAKER) (test code = 1+ few 965) TEAR DROP CELLS (BEAKER) (test 1+ few code = 481) PLATELET CONCENTRATION Adequate (CELLAVISION)(BEAKER) (test code = 3438) [place] Tester ID - Chad Suggs comments: Slide comments:POCT-GLUCOSE [id number] 10:05:00 Test Item Value Reference Range Interpretation Comments POC-GLUCOSE METER 432 mg/dL 70-110 HH : Notified RN/MD: (BEAKER) (test code = TESTED AT [facility] [id number]) [facility], [id number]: [place]inell Tester/Techni martita ID = [id number] for BRITNEY WINSTON BASIC METABOLIC [id number] 10:00:00 Test Item Value Reference Range Interpretation Comments SODIUM (BEAKER) 130 meq/L 136-145 L (test code = 381) POTASSIUM (BEAKER) 5.1 meq/L 3.5-5.1 (test code = 379) CHLORIDE (BEAKER) 101 meq/L 98-107 (test code = 382) CO2 (BEAKER) (test 13 meq/L 22-29 L code = 355) BLOOD UREA NITROGEN 40 mg/dL 7-21 H (BEAKER) (test code = 354) CREATININE (BEAKER) 2.61 mg/dL 0.57-1.25 H (test code = 358) GLUCOSE RANDOM 478 mg/dL 70-105 HH (BEAKER) (test code = 652) CALCIUM (BEAKER) 9.7 mg/dL 8.4-10.2 (test code = 697) EGFR (BEAKER) (test 19 mL/min/1.73 ESTIMA BRII GFR IS code = 1092) sq m NOT ACCURATE CREATININE CLEARANCE IN PREDICTING GLOMERULAR FILTRATION RATE . ESTIMATED GFR I S NOT APPLICABLE FOR DIALYSIS PATIEN TS. [place] Tester ID - BAILEYIDCREATINE KINASE (CK)2020-02-02 09:55:00 Test Item Value Reference Range Interpretation Comments CREATINE KINASE TOTAL (BEAKER) (test 13 U/L 29-200 L code = 380) [place]ell Tester ID - AAHAMIDSARS-COV2/RT-PCR ([facility])2020-02-02 07:28:00 Test Item Value Reference Range Interpretation Comments SARS-COV2/RT-PCR (test Negative Not Detected, Negative, code = 9273622) See external report for linked test SARS-COV-2 PERFORMING LAB [facility] (test code = 8778814) Negative result for this test determines that SARS-CoV-2 RNA was not present in the specimen above the Limit of Detection (LOD). However, Negative results do not preclude SARS-CoV-2 infection and should not be used as the sole basis for treatment or patient management decisions. Negative results mustbe combined with clinical observations, patient history, and epidemiological information. A false negative result may occur if a specimen is improperly collected, transported or handled. A false negative result should be considered if patient's recent exposures or clinical presentation indicate that COVID-19 (SARS-CoV-2) is likely and diagnostic tests for other causes of illness are negative. Re-testing should be considered in cases of suspected false negatives.The limit of detection for this assay is 800 copies/mL.This SARS CoV-2 test is a real-time RT-PCR test intended for the qualitative detection of nucleic acid from SARS-CoV-2 in a nasopharyngeal swab specimen collected from individuals suspected of COVID-19 by their healthcare provider.This test has not been Food and Drug Administration (FDA) cleared or approved. This is a modified version of an approved Emergency Use Authorization (EUA) and is in the process of review by the FDA. Once authorized by the FDA, the issued EUA will be effective until the declaration that circumstances exist justifying the authorization of the emergency use of in vitro diagnostic tests for detection and/or diagnosis of COVID-19 is terminated under Section 564(b)(2) of the Act or the EUA is revoked under Section 564(g) of the Act.Fact Sheet for Healthcare Providers:https://www.[employer]/sites/default/files/product/documents/Fact_Shee f_JM_Vkrmukyex_Gsjg_YUYJ-UpY-5.pdfFact Sheet for Healthcare Patients:https://www.[employer]/sites/default/files/product/ documents/Rbux_Oscxo_Bjgkegog_Ewgn_TFUK-UmY-7.pdfPerforming Laboratory:[facility], [place] [address]S/S, TRANSPLANT, [id number] 06:26:00Dialysis 05/23With DopplerReason for exam:- >Transplant KidneyShould this be performed at the bedside?->YesFINAL REPORT Exam: Ultrasound transplant kidney Clinical History: TransplantKidney Comparison: Renal transplant ultrasound 01/21/2020. Technique: Renal transplant ultrasound was performed with duplex Doppler. Findings: There is a left lower quadrant renal transplant graft which measures 11.9 x 5.5 x 5.9 cm with cortical thickness of 1.4 cm. The renal echogenicity is normal. There is small heterogeneously hypoechoic perinephric fluid collection about the upper pole measuring3.7 x 3.2 x 1.8 cm. There is no hydronephrosis or shadowing stone. The urinary bladder was not seen,which may be due to decompression. Doppler evaluation of the transplant kidney demonstrates patency and normal vascular waveforms of the external iliac artery, arterial anastomosis, main renal artery, external iliac vein, venous anastomosis, and main renal vein. There is no velocity gradient to suggest significant stenosis. The peak arterial systolic velocity in the iliac limb above and below the ceci stomosis is 142 cm/sec and 107 cm/sec respectively, 169 cm/sec at the anastomosis and 102 cm/sec in the main renal artery. The peak venous systolic velocity above and below the anastomosis is 73.5 cm/sec and 63.6 cm/sec respectively, 53.9 cm/sec at the anastomosis and 86.4 cm/sec in the main renal vein. The resistive indices in the upper, inter and lower polar regions are 0.68, 0.68 and 0.67 respectively. The acceleration times and acceleration indices are normal. Impression: Status post left lower quadrant renal transplant.Small complex perinephric collection.Patent vessels with normal resistive indices. Signed: Aleks Jamison MDReport Verified Date/Time: 02/02/2020 06:26:39 URINALYSIS W/ REFLEX URINE [id number] 05:05:00 Test Item Value Reference Range Interpretation Comments COLOR (BEAKER) (test code = 470) Yellow CLARITY (BEAKER) (test code = 469) Hazy SPECIFIC GRAVITY UA (BEAKER) (test 1.019 1.001-1.035 code = 468) PH UA (BEAKER) (test code = 467) 5.5 5.0-8.0 PROTEIN UA (BEAKER) (test code = 30 mg/dL Negative A 464) GLUCOSE UA (BEAKER) (test code = 500 mg/dL Negative A 365) KETONES UA (BEAKER) (test code = Trace Negative A 371) BILIRUBIN UA (BEAKER) (test code = Negative Negative 462) BLOOD UA (BEAKER) (test code = 461) Trace Negative A NITRITE UA (BEAKER) (test code = Negative Negative 465) LEUKOCYTE ESTERASE UA (BEAKER) Negative Negative (test code = 466) UROBILINOGEN UA (BEAKER) (test code 0.2 mg/dL 0.2-1.0 = 463) RBC UA (BEAKER) (test code = 519) 5 /HPF WBC UA (BEAKER) (test code = 520) 4 /HPF BACTERIA (BEAKER) (test code = 517) Rare MUCUS (BEAKER) (test code = 1574) Rare SQUAMOUS EPITHELIAL (BEAKER) (test 1 /HPF code = 516) GRANULAR CASTS (BEAKER) (test code 3 /LPF = 515) SOURCE(BEAKER) (test code = 2795) Brinell Tester ID - [auto]Brinell Tester ID - techRESPIRATORY PANEL [id number] 03:34:00 Test Item Value Reference Range Interpretation Comments HUMAN METAPNEUMOVIRUS Not detected Not detected, (BEAKER) (test code = 2683) Equivocal RHINOVIRUS (BEAKER) (test Not detected Not detected, code = 2684) Equivocal INFLUENZA A (BEAKER) (test Not detected Not detected, code = 2685) Equivocal INFLUENZA A (NO SUBTYPE) (test code = 3606) INFLUENZA A SUBTYPE H1 (BEAKER) (test code = 2686) INFLUENZA A SUBTYPE H3 (BEAKER) (test code = 2687) INFLUENZA A SUBTYPE H1-2009 (BEAKER) (test code = 3198) INFLUENZA B (BEAKER) (test Not detected Not [...] decisions. This sample was tested at the [facility] using the [employer] FilmArray Respiratory Panel. It is FDA cleared and has been verified and approved by the [facility] for clinical use on nasopharyngeal swab specimens.The performance of the FilmArrayRP has not been established in individuals who received influenza vaccine. Recent administration ofa nasal influenza vaccine may cause false positive results for Influenza A and/orInfluenza B.POCT-GLUCOSE [id number] 02:11:00 Test Item Value Reference Range Interpretation Comments POC-GLUCOSE METER 359 mg/dL 70-110 H : Notified RN/MD: (ESTRELLA) (test code = TESTED AT [facility] 67[address] 1538) [facility], [address]: Brinell Tester/Techni martita ID = [id number] for GR EEN (V), PAMELAR COMPLEMENT COMPONENT [id number] 01:40:00 Test Item Value Reference Range Interpretation Comments C4 COMPLEMENT (BEAKER) (test code = 25 mg/dL 15-57 394) Brinell Tester ID - BSCOMPLEMENT COMPONENT [id number] 01:40:00 Test Item Value Reference Range Interpretation Comments C3 COMPLEMENT (BEAKER) (test code = 161 mg/dL 82-193 393) Brinell Tester ID - BSC-REACTIVE [id number] 01:38:00 Test Item Value Reference Range Interpretation Comments C-REACTIVE PROTEIN (BEAKER) (test 28.63 mg/dL 0.00-0.50 H code = 676) Brinell Tester ID - BSRAPID INFLUENZA A&B [id number] 01:32:00 Test Item Value Reference Range Interpretation Comments RAPID INFLUENZA A AG (BEAKER) Negative Negative, Inconclusive (test code = 1622) RAPID INFLUENZA B AG (BEAKER) Negative Negative, Inconclusive (test code = 1623) HEPATIC FUNCTION [id number] 01:06:00 Test Item Value Reference Range Interpretation Comments TOTAL PROTEIN (BEAKER) (test code = 7.6 gm/dL 6.0-8.3 770) ALBUMIN (BEAKER) (test code = 1145) 4.3 g/dL 3.5-5.0 BILIRUBIN TOTAL (BEAKER) (test code 1.6 mg/dL 0.2-1.2 H = 377) BILIRUBIN DIRECT (BEAKER) (test 1.0 mg/dL 0.1-0.5 H code = 706) ALKALINE PHOSPHATASE (BEAKER) (test 91 U/L 40-150 code = 346) AST (SGOT) (BEAKER) (test code = 24 U/L 5-34 353) ALT (SGPT) (BEAKER) (test code = 40 U/L 6-55 347) Brinell Tester ID - BSBASIC METABOLIC [id number] 00:33:00 Test Item Value Reference Range Interpretation Comments SODIUM (BEAKER) 130 meq/L 136-145 L (test code = 381) POTASSIUM (BEAKER) 4.9 meq/L 3.5-5.1 (test code = 379) CHLORIDE (BEAKER) 101 meq/L 98-107 (test code = 382) CO2 (BEAKER) (test 15 meq/L 22-29 L code = 355) BLOOD UREA NITROGEN 33 mg/dL 7-21 H (BEAKER) (test code = 354) CREATININE (BEAKER) 2.24 mg/dL 0.57-1.25 H (test code = 358) GLUCOSE RANDOM 408 mg/dL 70-105 HH (BEAKER) (test code = 652) CALCIUM (BEAKER) 9.7 mg/dL 8.4-10.2 (test code = 697) EGFR (BEAKER) (test 23 mL/min/1.73 ESTIMA BRII GFR IS code = 1092) sq m NOT ACCURATE CREATININE CLEARANCE IN PREDICTING GLOMERULAR FILTRATION RATE . ESTIMATED GFR I S NOT APPLICABLE FOR DIALYSIS PATIEN TS. Brinell Tester ID - BSPROTHROMBIN TIME/[id number] 00:30:00 Test Item Value Reference Range Interpretation Comments PROTIME (BEAKER) (test code = 15.7 seconds 11.9-14.2 H 759) INR (BEAKER) (test code = 370) 1.29 <=5.90 Effective 10/07/2018: PT Reference Range ChangeNew: 11.9-14.2 Previous: 11.7- 14.7RECOMMENDED COUMADIN/WARFARIN INR THERAPY RANGESSTANDARD DOSE: 2.0-3.0 Includes: PROPHYLAXIS for venous thrombosis, systemic embolization; TREATMENT for venous thrombosis and/or pulmonary embolus.HIGH RISK: Target INR is2.5-3.5 for patients wiht mechanical heart valves.[id number] 00:30:00 Test Item Value Reference Range Interpretation Comments PARTIAL THROMBOPLASTIN TIME 27.8 seconds 22.5-36.0 (BEAKER) (test code = 760) [id number] 00:29:00 Test Item Value Reference Range Interpretation Comments PHOSPHORUS (BEAKER) (test code = 2.1 mg/dL 2.3-4.7 L 604) Brinell Tester ID - [id number] 00:29:00 Test Item Value Reference Range Interpretation Comments MAGNESIUM (BEAKER) (test code = 1.4 mg/dL 1.6-2.6 L 627) Brinell Tester ID - BSCBC W/PLT COUNT & AUTO [id number] 00:18:00 Test Item Value Reference Range Interpretation Comments WHITE BLOOD CELL COUNT (BEAKER) 19.8 K/ L 3.5-10.5 H (test code = 775) RED BLOOD CELL COUNT (BEAKER) 2.74 M/ L 3.93-5.22 L (test code = [...] code = 412) PLATELET COUNT (BEAKER) (test 263 K/CU MM 150-450 code = 756) MEAN PLATELET VOLUME (BEAKER) 9.9 fL 9.4-12.3 (test code = 754) NUCLEATED RED BLOOD CELLS 0 /100 WBC 0-0 (BEAKER) (test code = 413) NEUTROPHILS RELATIVE PERCENT 92 % (BEAKER) (test code = 429) LYMPHOCYTES RELATIVE PERCENT 3 % (BEAKER) (test code = 430) MONOCYTES RELATIVE PERCENT 3 % (BEAKER) (test code = 431) EOSINOPHILS RELATIVE PERCENT 0 % (BEAKER) (test code = 432) BASOPHILS RELATIVE PERCENT 0 % (BEAKER) (test code = 437) NEUTROPHILS ABSOLUTE COUNT 18.28 K/ L 1.56-6.13 H (BEAKER) (test code = 670) LYMPHOCYTES ABSOLUTE COUNT 0.54 K/ L 1.18-3.74 L (BEAKER) (test code = 414) MONOCYTES ABSOLUTE COUNT (BEAKER) 0.53 K/ L 0.24-0.36 H (test code = 415) EOSINOPHILS ABSOLUTE COUNT 0.01 K/ L 0.04-0.36 L (BEAKER) (test code = 416) BASOPHILS ABSOLUTE COUNT (BEAKER) 0.04 K/ L 0.01-0.08 (test code = 417) IMMATURE GRANULOCYTES-RELATIVE 2 % 0-1 H PERCENT (BEAKER) (test code = 2801) CALCIUM, [id number] 00:13:00 Test Item Value Reference Range Interpretation Comments CALCIUM IONIZED (BEAKER) (test 1.23 mmol/L 1.12-1.27 code = 698) PH, BLOOD (BEAKER) (test code = 7.35 1810) RAD, CHEST, 1 VIEW, NON [id number] 00:09:00Dialysis 05/23Reason for exam:->Post-opShould this be performed at the bedside?->YesFINAL REPORT RAD, CHEST, 1 VIEW, NON DEPT INDICATION: Post-op COMPARISON: Pain radiograph the chest dated 01/22/2020. FINDINGS: Portable frontal view of the chest. IMPRESSION: Support Lines: Interval removal of the left IJ central venous catheter. Lungs and pleura: Unchanged airspace and pleural opacities. No pneumothorax.Heart and mediastinum: Stable contours. Additional findings: None. Signed: Dorothy England Verified Date/Time: 02/02/2020 00:09:35 TACROLIMUS [id number] 11:50:00 Test Item Value Reference Range Interpretation Comments TACROLIMUS BLOOD (BEAKER) (test 13.0 ng/mL 10.0-20.0 code = 657) Brinell Tester ID - [place] FCOMPREHENSIVE METABOLIC [id number] 11:13:00 Test Item Value Reference Range Interpretation [...] S NOT APPLICABLE FOR DIALYSIS PATIEN TS. Brinell Tester ID - [id number] 11:10:00 Test Item Value Reference Range Interpretation Comments PHOSPHORUS (BEAKER) (test code = 2.1 mg/dL 2.3-4.7 L 604) Brinell Tester ID - ROSIANGCBC W/PLT COUNT & AUTO [id number] 11:06:00 Test Item Value Reference Range Interpretation [...] CONCENTRATION Adequate (CELLAVISION)(BEAKER) (test code = 3438) Brinell Tester ID - Raay OverholtUser comments: Slide comments:URINALYSIS W/ REFLEX URINE [id number] 09:51:00 Test Item Value Reference Range Interpretation [...] 1585) Rare SOURCE(BEAKER) (test code = 2795) Brinell Tester ID - [auto]Brinell Tester ID - techANAEROBIC [id number] 19:48:00 Test Item Value Reference Range Interpretation Comments CULTURE (BEAKER) (test No anaerobes isolated code = 1095) TACROLIMUS [id number] 10:33:00 Test Item Value Reference Range Interpretation Comments TACROLIMUS BLOOD (BEAKER) (test 6.4 ng/mL 10.0-20.0 L code = 657) Brinell Tester ID - EMERSONTOXOPLASMA GONDII ANTIBODY, [id number] 10:22:00 Test Item Value Reference Range Interpretation Comments TOXOPLASMA GONDII IGG QUANTITATIVE 7.0 IU/mL <10.0 (BEAKER) (test code = 3428) Toxoplasma Gondii IgG Result Interpretation: </= 9.9 IU/mL Normal 10-11 IU/mL Equivocal >/= 12 IU/mL PositiveBASIC METABOLIC PANEL 2020-01-25 09:52:00 Test Item Value Reference Range [...] S NOT APPLICABLE FOR DIALYSIS PATIEN TS. Brinell Tester ID - [id number] 09:51:00 Test Item Value Reference Range Interpretation Comments PHOSPHORUS (BEAKER) (test code = 1.9 mg/dL 2.3-4.7 L 604) Brinell Tester ID - [id number] 09:51:00 Test Item Value Reference Range Interpretation Comments MAGNESIUM (BEAKER) (test code = 1.6 mg/dL 1.6-2.6 627) Brinell Tester ID - ADMINPOCT-GLUCOSE [id number] 08:36:00 Test Item Value Reference Range Interpretation Comments POC-GLUCOSE METER 142 mg/dL 70-110 H : TESTED A T [facility] [address] (BEAKER) (test code = [place], 1538) [address]: Brinell Tester/Techni martita ID = [id number] for Nate Vance CBC W/PLT COUNT & AUTO [id number] 06:19:00 Test Item Value Reference Range Interpretation [...] PERCENT (BEAKER) (test code = 2801) POCT-GLUCOSE [id number] 22:32:00 Test Item Value Reference Range Interpretation Comments POC-GLUCOSE METER 172 mg/dL 70-110 H : TESTED A T [facility] 6720 (BEAKER) (test code = [facility], 1538) [address]: Brinell Tester/Techni martita ID = [id number] for NATALIE CHAVEZ POCT-GLUCOSE [id number] 18:34:00 Test Item Value Reference Range Interpretation Comments POC-GLUCOSE METER 179 mg/dL 70-110 H : TESTED A T [facility] 6720 (BEAKER) (test code = [facility] [employer] [facility], 1538) [address]: Brinell Tester/Techni martita ID = [id number] for RIN HIGGINS CALCIUM, [id number] 17:50:00 Test Item Value Reference Range Interpretation Comments CALCIUM IONIZED (BEAKER) (test 1.18 mmol/L 1.12-1.27 code = 698) PH, BLOOD (BEAKER) (test code = 7.36 5700) Range 1.12 - 1.27BASIC METABOLIC [id number] 15:16:00 Test Item Value Reference Range Interpretation [...] S NOT APPLICABLE FOR DIALYSIS PATIEN TS. Brinell Tester ID - [id number] 15:11:00 Test Item Value Reference Range Interpretation Comments PHOSPHORUS (BEAKER) (test code = 2.4 mg/dL 2.3-4.7 604) Brinell Tester ID - [id number] 15:11:00 Test Item Value Reference Range Interpretation Comments MAGNESIUM (BEAKER) (test code = 2.1 mg/dL 1.6-2.6 627) Brinell Tester ID - FSEHEPATITIS A ANTIBODY, [id number] 15:07:00 Test Item Value Reference Range Interpretation Comments HEPATITIS A IGG ANTIBODY (BEAKER) Reactive Nonreactive A (test code = 2797) Brinell Tester ID - FSEHEPATITIS C [id number] 15:01:00 Test Item Value Reference Range Interpretation Comments HEPATITIS C ANTIBODY (BEAKER) Nonreactive Nonreactive (test code = 367) Brinell Tester ID - FSEHIV-1 ANTIGEN WITH HIV-1/2 [id number] 15:01:00 Test Item Value Reference Range Interpretation Comments HIV-1 ANTIGEN WITH HIV 1\\T\\2 Nonreactive Nonreactive ANTIBODY (2) (BEAKER) (test code = 2586) Brinell Tester ID - FSECRYPTOCOCCAL [id number] 14:52:00 Test Item Value Reference Range Interpretation Comments CRYPTOCOCCAL ANTIGEN, SERUM Negative Negative, Interference (BEAKER) (test code = 1828) POCT-GLUCOSE [id number] 12:26:00 Test Item Value Reference Range Interpretation Comments POC-GLUCOSE METER 219 mg/dL 70-110 H : [facility] (BEAKER) (test code = [place], 1538) [address]: Brinell Tester/Techni martita ID = [id number] for RIN HIGGINS TACROLIMUS [id number] 11:26:00 Test Item Value Reference Range Interpretation Comments TACROLIMUS BLOOD (BEAKER) (test 7.6 ng/mL 10.0-20.0 L code = 657) Brinell Tester ID - AAHAMIDSURGICALLY OBTAINED CULTURE + GRAM [id number] 08:42:00 Test Item Value Reference Range Interpretation Comments CULTURE A <1+ Same organi sm has (BEAKER) (test been isolated from code = 1095) cultures(s) of the same body site and collection date . Repeat identifi cation and susceptibil ity testing perform ed only after consultat ion with the [facility] microbiology laboratory.Refe r to previous cultur e of* - Staphlococcus epidermidis GRAM STAIN 1+ WBCs RESULT (BEAKER) (test code = 1123) GRAM STAIN No organisms seen RESULT (BEAKER) (test code = 307479) PERITONEAL DIALYSIS EFFLUENT [id number] 08:39:00 Test Item Value Reference Interpretation Comments [...] No organisms seen (BEAKER) (test code = 475918) GRAM STAIN RESULT From aerobic (BEAKER) (test code = bottle only: gram 066930) positive cocci in clusters GRAM STAIN RESULT The previo usly (BEAKER) (test code = report ed result [id number]) <1+ White blood cells seen is n o longer being reported. POCT-GLUCOSE [id number] 08:20:00 Test Item Value Reference Range Interpretation Comments POC-GLUCOSE METER 223 mg/dL 70-110 H : TESTED Keisha Barkley [facility] 6720 (BEAKER) (test code = [place], 1538) [address]: Brinell Tester/Techni martita ID = [id number] for RIN HIGGINS CBC W/PLT COUNT & AUTO [id number] 06:29:00 Test Item Value Reference Range Interpretation [...] PERCENT (BEAKER) (test code = 2801) POCT-GLUCOSE [id number] 05:56:00 Test Item Value Reference Range Interpretation Comments POC-GLUCOSE METER 255 mg/dL 70-110 H : TESTED A T [facility] 6720 (BEAKER) (test code = [facility], 1538) [address]: Brinell Tester/Techni martita ID = [id number] for SANDRA GARNICA POCT-GLUCOSE [id number] 16:25:00 Test Item Value Reference Range Interpretation Comments POC-GLUCOSE METER 207 mg/dL 70-110 H : TESTED A T [facility] 6720 (BEAKER) (test code = [facility] [employer] [facility], 1538) [address]: Brinell Tester/Techni martita ID = [id number] for Forrest Feng CALCIUM, [id number] 14:19:00 Test Item Value Reference Range Interpretation Comments CALCIUM IONIZED (BEAKER) (test 1.09 mmol/L 1.12-1.27 L code = 698) PH, BLOOD (BEAKER) (test code = 7.35 1810) Range 1.12 - 1.27BASIC METABOLIC [id number] 12:00:00 Test Item Value Reference Range Interpretation [...] S NOT APPLICABLE FOR DIALYSIS PATIEN TS. [id number] 12:00:00 Test Item Value Reference Range Interpretation Comments MAGNESIUM (BEAKER) 2.2 mg/dL 1.6-2.6 Specimen slightly (test code = 627) hemolyzed [id number] 12:00:00 Test Item Value Reference Range Interpretation Comments PHOSPHORUS (BEAKER) 5.1 mg/dL 2.3-4.7 H Specimen slightly (test code = 604) hemolyzed POCT-GLUCOSE [id number] 11:16:00 Test Item Value Reference Range Interpretation Comments POC-GLUCOSE METER 198 mg/dL 70-110 H : TESTED A T [facility] [address]20 (BEAKER) (test code = [place], 1538) [address]: Brinell Tester/Techni martita ID = [id number] for THEA MINOR TACROLIMUS [id number] 08:26:00 Test Item Value Reference Range Interpretation Comments TACROLIMUS BLOOD (BEAKER) (test 10.6 ng/mL 10.0-20.0 code = 657) Brinell Tester ID - AAHAMIDCBC W/PLT COUNT & AUTO [id number] 04:35:00 Test Item Value Reference Range Interpretation [...] PERCENT (BEAKER) (test code = 2801) POCT-GLUCOSE [id number] 23:20:00 Test Item Value Reference Range Interpretation Comments POC-GLUCOSE METER 244 mg/dL 70-110 H : TESTED Keisha Jair [facility] 6720 (BEAKER) (test code = [place], 1538) [address]: Brinell Tester/Techni martita ID = [id number] for SHAJI SANTIAGO ND POCT-GLUCOSE [id number] 18:09:00 Test Item Value Reference Range Interpretation Comments POC-GLUCOSE METER 230 mg/dL 70-110 H : TESTED A T [facility] 6720 (BEAKER) (test code [facility], = 1538) [address]: Brinell Tester/Techni martita ID = [id number] for Moli Tricia lathamra (cont ract) CALCIUM, [id number] 14:05:00 Test Item Value Reference Range Interpretation Comments CALCIUM IONIZED (BEAKER) (test 0.95 mmol/L 1.12-1.27 L code = 698) PH, BLOOD (BEAKER) (test code = 7.36 1810) Range 1.12 - 1.27POCT-GLUCOSE [id number] 12:43:00 Test Item Value Reference Range Interpretation Comments POC-GLUCOSE METER 190 mg/dL 70-110 H : TESTED A T [facility] 6720 (BEAKER) (test code [facility], = 1538) [address]: Brinell Tester/Techni martita ID = [id number] for Moli naNadjaNikki (cont ract) POCT-GLUCOSE [id number] 12:42:00 Test Item Value Reference Range Interpretation Comments POC-GLUCOSE METER 151 mg/dL 70-110 H : TESTED A T [facility] 6720 (BEAKER) (test code [facility], = 1538) [address]: Brinell Tester/Techni martita ID = [id number] for Moli naNadjaNikki (cont ract) CALCIUM, [id number] 12:10:00 Test Item Value Reference Range Interpretation Comments CALCIUM IONIZED (BEAKER) (test 0.93 mmol/L 1.12-1.27 L code = 698) PH, BLOOD (BEAKER) (test code = 7.40 1810) Range 1.12 - 1.27TACROLIMUS [id number] 07:16:00 Test Item Value Reference Range Interpretation Comments TACROLIMUS BLOOD (BEAKER) (test 11.3 ng/mL 10.0-20.0 code = 657) Brinell Tester ID - MAYRA WBASIC METABOLIC [id number] 04:19:00 Test Item Value Reference Range Interpretation [...] S NOT APPLICABLE FOR DIALYSIS PATIEN TS. Brinell Tester ID - WILI [id number] 04:15:00 Test Item Value Reference Range Interpretation Comments PHOSPHORUS (BEAKER) (test code = 7.6 mg/dL 2.3-4.7 H 604) Brinell Tester ID - WILI [id number] 04:15:00 Test Item Value Reference Range Interpretation Comments MAGNESIUM (BEAKER) (test code = 1.7 mg/dL 1.6-2.6 627) Brinell Tester ID - WILI MVANCOMYCIN LEVEL, [id number] 04:10:00 Test Item Value Reference Range Interpretation [...] Aleks Jamison MDReport Verified Date/Time: 01/22/2020 03:57:15 CBC W/PLT COUNT & AUTO [id number] 03:43:00 Test Item Value Reference Range Interpretation [...] PERCENT (BEAKER) (test code = 2801) POCT-GLUCOSE [id number] 23:41:00 Test Item Value Reference Range Interpretation Comments POC-GLUCOSE METER 201 mg/dL 70-110 H : [facility] 67[facility] (BEAKER) (test code = [place], 1538) [address]: Brinell Tester/Techni martita ID = [id number] for Co bb, Dania HEMOGLOBIN AND [id number] 22:08:00 Test Item Value Reference Range Interpretation Comments HEMOGLOBIN (BEAKER) (test code = 8.2 GM/DL 11.2-15.7 L 410) HEMATOCRIT (BEAKER) (test code = 25.7 % 34.1-44.9 L 411) Brinell Tester ID - 6000BASIC METABOLIC [id number] 13:54:00 Test Item Value Reference Range Interpretation [...] S NOT APPLICABLE FOR DIALYSIS PATIEN TS. Brinell Tester ID - NABEEL FCBC W/PLT COUNT & AUTO [id number] 13:48:00 Test Item Value Reference Range Interpretation [...] (BEAKER) (test code = 2801) U/S, TRANSPLANT, [id number] 13:44:00Dialysis 05/23Reason for exam:->s/p kidney transplant- assess [...] Narvaez Verified Date/Time: 01/21/2020 13:44:09 Reading Location: [address] Radiology Reading Room PLATELET [id number] 12:28:00 Test Item Value Reference Range Interpretation Comments PLATELET COUNT 186 K/CU MM 150-450 Specimen cont aminated (BEAKER) (test code after re testing BA# = [id number]) [id number] is a corrected resul t. Previous result was 186 K/CU MM on 01/20 at 1201 CDT Brinell Tester ID - 6000CALCIUM, [id number] 12:00:00 Test Item Value Reference Range Interpretation Comments CALCIUM IONIZED (BEAKER) (test 0.96 mmol/L 1.12-1.27 L code = 698) PH, BLOOD (BEAKER) (test code = 7.34 1810) SODIUM NA-STAT [id number] 11:59:00 Test Item Value Reference Range Interpretation Comments SODIUM (BEAKER) (test code = 381) 135 meq/L 136-145 L Only if arterial line present.POTASSIUM-STAT [id number] 11:59:00 Test Item Value Reference Range Interpretation Comments POTASSIUM (BEAKER) (test code = 4.4 meq/L 3.6-5.5 379) Only if arterial line present.BLOOD GAS, [id number] 11:59:00 Test Item Value Reference Range Interpretation [...] 40.0 % Only if arterial line present.GLUCOSE-STAT [id number] 11:59:00 Test Item Value Reference Range Interpretation Comments GLUCOSE RANDOM (BEAKER) (test code 170 mg/dL 70-110 H = 652) Only if arterial line present.HGB/HCT (H&H) - STAT [id number] 11:59:00 Test Item Value Reference Range Interpretation Comments HEMOGLOBIN (BEAKER) (test code = 7.3 g/dL 12.0-15.0 L 410) HEMATOCRIT (BEAKER) (test code = 21.0 % 36.0-45.0 L 411) Only if arterial line present.SARS-COV2/RT-PCR ([facility])2020-01-20 23:28:00 Test Item Value Reference Range Interpretation Comments SARS-COV2/RT-PCR (test code Negative Not Detected, Negative, = 2317897) See external report for linked test SARS-COV-2 PERFORMING LAB [facility] (test code = 4576453) Negative results do not preclude SARS-CoV-2 infection [...] of the Act.Fact Sheet for Healthcare Pro viders:https://www.Kauli.Plug Apps/Documents/Xpert%20Xpress%20SARS%20CoV-2/Fact%20Sh eets/214-5082%94AVNS-GAX-9%20HEALTHCARE%20PROVIDERS%20FACT%20SHEET.pdfFact Sheet for Healthcare Patients:https://www.[employer].Plug Apps/Documents/Xpert%20Xpress%20SARS%20CoV-2/Fact%20Sheets/3023801%20SARS-COV -2%20PATIENT%20FACT%20SHEET.pdfPerforming Laboratory:[facility].[place], [place] [address]DPAHCBUFMESBN METABOLIC [id number] 22:27:00 Test Item Value Reference Range Interpretation [...] S NOT APPLICABLE FOR DIALYSIS PATIEN TS. Brinell Tester ID - [id number] 22:06:00 Test Item Value Reference Range Interpretation Comments PARTIAL THROMBOPLASTIN TIME 28.4 seconds 22.5-36.0 (BEAKER) (test code = 760) PROTHROMBIN [id number] 22:05:00 Test Item Value Reference Range Interpretation [...] mechanical heart valves.CBC W/PLT COUNT & AUTO [id number] 21:57:00 Test Item Value Reference Range Interpretation [...] (test code = 2801) CT, CHEST, WITHOUT [id number] 20:20:00Dialysis lease assess for covid- pending kidney [...] Juaquin Hook MDReport Verified Date/Time: 01/20/2020 20:20:02 BODY FLUID CELL COUNT WITH [id number] 20:12:00 Test Item Value Reference Range Interpretation [...] 2873) Source unknown called to RN at 1945 01/20/20 no knowledge about it.SPUTUM CULTURE + GRAM [id number] 15:06:00 Test Item Value Reference Range Interpretation Comments CULTURE (BEAKER) 3+ Normal respiratory (test code = 1095) dawna present GRAM STAIN RESULT <1+ WBCs (BEAKER) (test code = 1123) GRAM STAIN RESULT 0-5 epithelial cells (BEAKER) (test code = 00112) GRAM STAIN RESULT <1+ gram variable (BEAKER) (test code coccobacilli = 08901) POCT-GLUCOSE [id number] 08:09:00 Test Item Value Reference Range Interpretation Comments POC-GLUCOSE METER 157 mg/dL 70-110 H : TESTED A T [facility] 6720 (BEAKER) (test code = [place], 1538) [address]: Brinell Tester/Techni martita ID = [id number] for CARMEN JAY WILTON BASIC METABOLIC [id number] 06:58:00 Test Item Value Reference Range Interpretation [...] NOT APPLICABLE FOR DIALYSIS PATIEN TS. POCT-GLUCOSE [id number] 21:48:00 Test Item Value Reference Range Interpretation Comments POC-GLUCOSE METER 121 mg/dL 70-110 H : TESTED A T [facility] 6720 (BEAKER) (test code = [place], 1538) [address]: Brinell Tester/Techni martita ID = [id number] for PAIGE PATEL BASIC METABOLIC [id number] 17:55:00 Test Item Value Reference Range Interpretation [...] S NOT APPLICABLE FOR DIALYSIS PATIEN TS. [id number] 17:50:00 Test Item Value Reference Range Interpretation Comments MAGNESIUM (BEAKER) (test code = 2.2 mg/dL 1.6-2.6 627) B-TYPE NATRIURETIC FACTOR (BNP)2019-05-17 17:34:00 Test Item Value Reference Range Interpretation Comments B-TYPE NATRIURETIC PEPTIDE (BEAKER) 211 pg/mL 0-100 H (test code = 700) TROPONIN [id number] 17:34:00 Test Item Value Reference Range Interpretation [...] failure, acidosis, acute neurological disease, and persistent tachyarrhythmia.PT/[id number] 17:11:00 Test Item Value Reference Range Interpretation Comments PROTIME (BEAKER) (test code = 13.4 seconds 11.9-14.2 759) INR (BEAKER) (test code = 370) 1.1 <=5.9 PARTIAL THROMBOPLASTIN TIME 26.4 seconds 22.5-36.0 (BEAKER) (test code = 760) Effective 10/07/2018: PT Reference Range ChangeNew: 11.9-14.2 Previous: 11.7- 14.7RECOMMENDED COUMADIN/WARFARIN INR THERAPY RANGESSTANDARD DOSE: 2.0-3.0 Includes: PROPHYLAXIS for venous thrombosis, systemic embolization; TREATMENT for venous thrombosis and/or pulmonary embolus.HIGH RISK: Target INR is2.5-3.5 for patients wiht mechanical heart valves.RAD, CHEST, 1 VIEW, NON [id number] 17:11:00Dialysis 05/23Reason for exam:->HYPERTENSIONReason for exam:- >COUGHReason for exam:->HEADACHEIs the patient ?->NoFINAL REPORT TECHNIQUE: Single view of the chest. COMPARISON: 08/03/2018 FINDINGS: The cardiac silhouette is enlarged. Mediastinum is unremarkable. Lungs are clear. No acute skeletal abnormality. Soft tissues appear unremarkable. IMPRESSION: No acute cardiopulmonary disease. Signed: Joel Feng MDReport Verified Date/Time: 05/17/2019 17:11:18 Reading Location: [facility] Radiology Reading Room CT, BRAIN, WITHOUT [id number] 17:07:00Dialysis 05/23FINAL REPORT CT, BRAIN, WITHOUT IV [...] recommended for further characterization. Signed: Tiffanie Browning MDReport Verified Date/Time: 05/17/2019 17:07:10 CBC W/PLT COUNT & AUTO DIFFERENTIAL 2019-05-17 17:02:00 Test Item Value Reference Range Interpretation [...] (BEAKER) (test code = 2801) BASIC METABOLIC [id number] 16:09:00 Test Item Value Reference Range Interpretation [...] APPLICABLE FOR DIALYSIS PATIEN TS. HEPATIC FUNCTION [id number] 16:01:00 Test Item Value Reference Range Interpretation [...] code = 16 U/L 6-55 347) PROTHROMBIN TIME/[id number] 15:47:00 Test Item Value Reference Range Interpretation [...] mechanical heart valves.CBC W/PLT COUNT & AUTO [id number] 15:37:00 Test Item Value Reference Range Interpretation [...] (BEAKER) (test code = 2801) CT, ABDOMEN, [id number] 17:50:00Dialysis 05/23 Liver mass protocol. Patient is [...] Hepatosplenomegaly. Stable enhancing foci in liver. Atrophic [place] kidneys. Small amount of ascites. 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 Check repeat EEGDate(s) of EE11/03/2018 DATE OF REPORT:11/03/2018 ACC:[id number] EEG Number: [id number] Test Location: Inpatient ICU Start time:0957 am Stop time:1027 am ICD-10: R56.9 Unspecified Convulsions CPT Code: 44407 HISTORY: 48 y/o F with h/o status [...] of epilepsy remains, consider additional EEG recordings captu ring sleep state. Mauri Thompson MD Neurophysiology Fellow I have reviewed the electroencephalogram and this report and agree with its interpretation. Mayda Metcalf MD Neurophysiology Attending [facility], MULTI, PHARM, [id number] 13:17:00Dialysis 05/23FINAL REPORT PROCEDURE: MYOCARDIAL PERFUSION SPECT IMAGING (, pravastatin 2-Day Stress/Rest)CPT CODE: 90726 INDICATION: Renal transplant evaluation CARDIOVASCULAR PROFILE:CAD History: [...] on a separate day, 32.5 mCi of Tc-99m sestamibi was injected intravenously at rest, and [...] perfusion. The decreased anterior wall intensity is most consistent with breast attenuation artifact..3. Normal stress LVEF.4. Normal extracardiac tracer distribution.5. The prior study dated 06/17/2013 reported normal study with normal myocardial perfusion. Signed: Destinee Rodrigues [facility] Verified Date/Time: 10/19/2018 13:17:31 Reading Location: [address] Reading Room ALPHA FETOPROTEIN (AFP), TUMOR [id number] 14:16:00 Test Item Value Reference Range Interpretation Comments ALPHA-FETOPROTEIN (BEAKER) (test 2.0 ng/mL <10.0 code = 1094) BASIC METABOLIC [id number] 14:03:00 Test Item Value Reference Range Interpretation [...] APPLICABLE FOR DIALYSIS PATIEN TS. HEPATIC FUNCTION [id number] 14:03:00 Test Item Value Reference Range Interpretation [...] L 347) CBC W/PLT COUNT & AUTO [id number] 13:26:00 Test Item Value Reference Range Interpretation [...] (BEAKER) (test code = 2801) CT, ABDOMEN, [id number] 09:51:00Dialysis 05/23FINAL REPORT ABDOMINAL CT DATED 09/28/2018 [...] itis.4. Renal disease.5. Trace ascites. Signed: [facility] Verified Date/Time: 09/28/201809:51:23 Reading Location: [address] Body Reading Room US CULTURE + [id number] 20:39:00 Test Item Value Reference Range Interpretation Comments CULTURE (Archive[employer]) (test No fungus isolated in code = 1095) 28 days [facility] SMEAR [facility] No fungi seen (test code = 1406) MISCELLANEOUS LAB [id number] 08:22:00 Test Item Value Reference Range Interpretation Comments SCAN RESULT (test code = 1324589) POCT-GLUCOSE [id number] 09:14:00 Test Item Value Reference Range Interpretation Comments POC-GLUCOSE METER 191 mg/dL 70-110 H TESTED AT [place] [address] ([facility]) (test code = [place] 1538) [address] COMPREHENSIVE METABOLIC [id number] 04:45:00 Test Item Value Reference Range Interpretation [...] S NOT APPLICABLE FOR DIALYSIS PATIEN TS. [id number] 04:35:00 Test Item Value Reference Range Interpretation Comments PHOSPHORUS (BEAKER) (test code = 7.3 mg/dL 2.3-4.7 H 604) CBC W/PLT COUNT & AUTO [id number] 04:06:00 Test Item Value Reference Range Interpretation [...] PERCENT (BEAKER) (test code = 2801) POCT-GLUCOSE [id number] 21:10:00 Test Item Value Reference Range Interpretation Comments POC-GLUCOSE METER 165 mg/dL 70-110 H TESTED AT [facility] 6720 (BEAKER) (test code = G[place] 1538) [address] POCT-GLUCOSE [id number] 17:48:00 Test Item Value Reference Range Interpretation Comments POC-GLUCOSE METER 141 mg/dL 70-110 H TESTED AT [facility] 6720 (BEAKER) (test code = [facility] [place] 1538) [address] POCT-GLUCOSE [id number] 12:34:00 Test Item Value Reference Range Interpretation Comments POC-GLUCOSE METER 219 mg/dL 70-110 H TESTED AT [place] [address] (BEAKER) (test code = [facility] Yajaira [facility] 1538) [address] POCT-GLUCOSE [id number] 09:39:00 Test Item Value Reference Range Interpretation Comments POC-GLUCOSE METER 202 mg/dL 70-110 H TESTED AT [place] [id number] (BEAKER) (test code = [facility] Yajaira [facility] 1538) [address] COMPREHENSIVE METABOLIC [id number] 07:29:00 Test Item Value Reference Range Interpretation Comments TOTAL PROTEIN 7.8 gm/dL 6.0-8.3 (BEAKER) (test code = 770) ALBUMIN (BEAKER) 3.4 g/dL 3.5-5.0 L (test code = 1145) ALKALINE PHOSPHATASE 74 U/L 40-150 (BEAKER) (test code = 346) [...] PATIEN TS. CBC W/PLT COUNT & AUTO [id number] 06:36:00 Test Item Value Reference Range Interpretation [...] NEUTROPHILS ABSOLUTE COUNT 4.42 K/ L 1.56-6.13 ([facility]) (test code = 670) LYMPHOCYTES ABSOLUTE COUNT 1.86 K/ L 1.18-3.74 ([facility]) (test code = 414) MONOCYTES ABSOLUTE COUNT (AKER) 0.64 K/ L 0.24-0.36 H (test code = 415) EOSINOPHILS ABSOLUTE COUNT 0.42 K/ L 0.04-0.36 H (AKER) (test code = 416) BASOPHILS ABSOLUTE COUNT (AKER) 0.03 K/ L 0.01-0.08 (test code = 417) IMMATURE GRANULOCYTES-RELATIVE 1 % 0-1 PERCENT ([facility]) (test code = 2801) POCT-GLUCOSE [id number] 00:47:00 Test Item Value Reference Range Interpretation Comments POC-GLUCOSE METER 249 mg/dL 70-110 H TESTED AT [place] [address] ([facility]) (test code = [facility] 1538) [address] POCT-GLUCOSE [id number] 17:56:00 Test Item Value Reference Range Interpretation Comments POC-GLUCOSE METER 153 mg/dL 70-110 H TESTED AT [place] [address] ([facility]) (test code = [facility] 1538) [address] POCT-GLUCOSE [id number] 12:26:00 Test Item Value Reference Range Interpretation Comments POC-GLUCOSE METER 135 mg/dL 70-110 H TESTED AT [place] [address] ([facility]) (test code = [facility] 1538) [address] ANTI-NUCLEAR ANTIBODY (CECI)2018-08-04 11:44:00 Test Item Value Reference Range Interpretation Comments ANTI-NUCLEAR ANTIBODY (CECI) ([facility]) Negative Negative (test code = 418) Test performed by IFA method.CECI TITER AND [id number] 11:44:00 Test Item Value Reference Range Interpretation Comments CECI TITER (AKER) :160 (test code = 1541) CECI PATTERN ([facility]) Anti-mitotic spindle (test code = 1781) antibody BLOOD [id number] 08:00:00 Test Item Value Reference Range Interpretation Comments CULTURE (BEAKER) (test No growth in 5 days code = 1095) BLOOD [id number] 08:00:00 Test Item Value Reference Range Interpretation Comments CULTURE (BEAKER) (test No growth in 5 days code = 1095) POCT-GLUCOSE [id number] 06:06:00 Test Item Value Reference Range Interpretation Comments POC-GLUCOSE METER 189 mg/dL 70-110 H TESTED AT [facility] 6720 (BEAKER) (test code = [place] 1538) [address] COMPREHENSIVE METABOLIC [id number] 05:36:00 Test Item Value Reference Range Interpretation [...] APPLICABLE FOR DIALYSIS PATIEN TS. BLOOD GAS, [id number] 05:17:00 Test Item Value Reference Range Interpretation [...] -2.0-3.0 (test code = 387) PATIENT TEMPERATURE ([facility]) (test 37.0 C code = 1818) FIO2 ([facility]) (test code = 1819) 21.0 % POCT-GLUCOSE [id number] 01:07:00 Test Item Value Reference Range Interpretation Comments POC-GLUCOSE METER 175 mg/dL 70-110 H TESTED AT [place] [address] ([facility]) (test code = GILDA Gates [facility] 1538) [address] POCT-GLUCOSE [id number] 16:56:00 Test Item Value Reference Range Interpretation Comments POC-GLUCOSE METER 157 mg/dL 70-110 H TESTED AT [place] [address] ([facility]) (test code = GILDA [place] [facility] 1538) [address] EEG MONITORING WITH VIDEO RECORDING EACH 24 [id number] 16:36:00 Neurophysiology Electroencephalogram Report DATE OF REPORT: DATE \\@ "M/d/yy" 08/03/18 Date(s) of Study: 08/03/2018 ACC: [id number] Start time: 1133 hrs Stop time: 0834 hrs ICD-10: R41.82 Altered Mental Status CPT Code: 48945 EEG: Video monitoring/interpretation (24 hours) 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 Azul Benton MD Clinical Neurophysiology-Epilepsy Fellow [facility] Neurophysiology Service Lc Crane M.D., FACRASHID, FAAN, MAURO Professor of Neurology, [facility] [employer] Director, [facility] Epilepsy Center Head, [facility] Neuro[facility] Lab POCT-GLUCOSE [id number] 11:57:00 Test Item Value Reference Range Interpretation Comments POC-GLUCOSE METER 86 mg/dL 70-110 TESTED AT [place] [address] ([facility]) (test code = [facility] [address] 1538) POCT-GLUCOSE [id number] 06:26:00 Test Item Value Reference Range Interpretation Comments POC-GLUCOSE METER 159 mg/dL 70-110 H TESTED AT [place] [address] ([facility]) (test code = [facility] 1538) [address] COMPREHENSIVE METABOLIC [id number] 05:41:00 Test Item Value Reference Range Interpretation [...] PATIEN TS. RAD, CHEST, 1 VIEW, NON [id number] 05:27:00Dialysis 05/23Reason for exam:- >intubated patientShould this [...] There is no pneumothorax. Signed: Aleks Jamison Verified Date/Time: 08/03/2018 05:27:43 Reading Location: [facility] B1 C013Y CT Body Reading Room [...] (BEAKER) (test code = 2801) BLOOD GAS, [id number] 05:06:00 Test Item Value Reference Range Interpretation Comments PH ARTERIAL (BEAKER) (test code = 7.42 7.35-7.45 383) PCO2 ARTERIAL (BEAKER) (test code 40 mmHg 35-45 = 384) PO2 ARTERIAL (BEAKER) (test code = 121 mmHg 80-90 H 385) O2 SATURATION ARTERIAL (AKER) 98.5 % 96.0-97.0 H (test code = 386) HCO3 ARTERIAL (BEAKER) (test code 25 mmol/L 21-29 = 388) BASE EXCESS ARTERIAL (AKER) 0.8 mmol/L -2.0-3.0 (test code = 387) PATIENT TEMPERATURE ([facility]) (test 37.0 C code = 1818) FIO2 ([facility]) (test code = 1819) 35.0 % POCT-GLUCOSE [id number] 00:15:00 Test Item Value Reference Range Interpretation Comments POC-GLUCOSE METER 153 mg/dL 70-110 H TESTED AT [place] [address] ([facility]) (test code = [facility] 1538) [address] POCT-GLUCOSE [id number] 20:01:00 Test Item Value Reference Range Interpretation Comments POC-GLUCOSE METER 84 mg/dL 70-110 TESTED AT [place] [address] ([facility]) (test code = [facility] [address] 1538) POCT-GLUCOSE [id number] 17:41:00 Test Item Value Reference Range Interpretation Comments POC-GLUCOSE METER 89 mg/dL 70-110 TESTED AT [place] [address] ([facility]) (test code = [facility] [address] 1538) RAD, ABDOMEN/KUB, 1 VIEW [id number] 16:36:00Dialysis 05/23Reason for exam:- >NG tube placement evaluationFINAL REPORT AP abdomen HISTORY: Nasogastric tube COMPARISON: 08/16/2016 IMPRESSION:Lower abdomen excluded from view. Nasogastric tube in satisfactory position. Signed: Osbaldo Ruelas MDReport Verified Date/Time: 08/02/2018 16:36:16 Reading Location: [address] Transitional Reading Room RAD, CHEST, 1 VIEW, NON [id number] 16:36:00 Dialysis 05/23Reason for exam:->ET tube placement assessmentShould this be performed at the bedside?->YesFINAL REPORT AP chest HISTORY: Endotracheal tube. COMPARISON: 08/02/2017. IMPRESSION: Endotracheal tube present. Tip projects 2 cm above the level of the edison. Cardiomegaly. Grossly clear lungs. Signed: Osbaldo Ruelas MDReport Verified Date/Time: 08/02/2018 16:36:46 Reading Location: [address] Transitional Reading Room C. DIFFICILE GDH [id number] 15:59:00 Test Item Value Reference Range Interpretation Comments CDT TOXIN (test code Negative Negative = [id number]) CDT GDH ANTIGEN (test Negative Negative No ind ication of code = 8205842793) Clostridi um difficile infection and n o colonization. Discontinue ent lorie isolation and t herapy. Testing performed by Ion Torrent Rapid Cassette Assay. For GDH, published sensitivity of the assay is 98.7% compared to cytotoxicity testing. For Toxin AB, published sensitivity is 87.8% and specificity 99.4% compared to cytotoxicity testing.Verification of kit performance was done by the [facility] Microbiology Lab prior to clinical use.EEG MONITORING WITH VIDEO RECORDING EACH 24 HOURS 2018-08-02 15:34:00[facility] DATE OF TEST: 08/01/2018;08/02/2018 DATE OF REPORT: 08/02/2018 ACC: [id number] Start time: 08/01/18 at 15:33 Stop time: 08/02/18 at 11:33 ICD-10: 80809 CPT Code: R41.82 HISTORY: 48 yo female [...] POC-GLUCOSE METER 88 mg/dL 70-110 TESTED AT [place] [address] ([facility]) (test code = GILDA Gates [facility] [address] 1538) BODY FLUID CULTURE + GRAM [id number] 11:52:00 Test Item Value Reference Range Interpretation Comments CULTURE (BEAKER) (test code No growth = 1095) GRAM STAIN RESULT (BEAKER) <1+ WBCs (test code = 1123) GRAM STAIN RESULT (BEAKER) No organisms seen (test code = 56005) CSF CULTURE + GRAM [id number] 11:52:00 Test Item Value Reference Range Interpretation Comments CULTURE (BEAKER) (test code No growth = 1095) GRAM STAIN RESULT (BEAKER) <1+ WBCs (test code = 1123) GRAM STAIN RESULT (BEAKER) No organisms seen (test code = 24171) POCT-GLUCOSE [id number] 06:22:00 Test Item Value Reference Range Interpretation Comments POC-GLUCOSE METER 99 mg/dL 70-110 TESTED AT [facility] 67 ([facility]) (test code = GILDA Gates [facility] [address] 1538) RAD, CHEST, 1 VIEW, NON [id number] 05:38:00Dialysis 05/23Reason for exam:- >intubated patientShould this [...] enlargement of the cardiac silhouette. Signed: Aleks Jamisoneport Verified Date/Time: 08/02/2018 05:38:18 [facility] Body Reading Room [id number] 05:12:00 Test Item Value Reference Range Interpretation [...] 20-55 (test code = 2590) BLOOD GAS, [id number] 04:37:00 Test Item Value Reference Range Interpretation [...] code = 1819) 50.0 % COMPREHENSIVE METABOLIC [id number] 04:24:00 Test Item Value Reference Range Interpretation [...] S NOT APPLICABLE FOR DIALYSIS PATIEN TS. [id number] 04:20:00 Test Item Value Reference Range Interpretation Comments PHOSPHORUS (BEAKER) 8.3 mg/dL 2.3-4.7 H Specimen slightly (test code = 604) hemolyzed CBC W/PLT COUNT & AUTO [id number] 04:02:00 Test Item Value Reference Range Interpretation [...] % 0-1 PERCENT (BEAKER) (test code = 0371) POCT-GLUCOSE [id number] 00:22:00 Test Item Value Reference Range Interpretation Comments POC-GLUCOSE METER 79 mg/dL 70-110 TESTED AT [facility] 6720 ([facility]) (test code = GILDA Gates [facility] [address] 1538) BASIC METABOLIC [id number] 19:07:00 Test Item Value Reference Range Interpretation [...] NOT APPLICABLE FOR DIALYSIS PATIEN TS. POCT-GLUCOSE [id number] 18:40:00 Test Item Value Reference Range Interpretation Comments POC-GLUCOSE METER 97 mg/dL 70-110 TESTED AT [facility] 6720 ([facility]) (test code = GILDA Gates [facility] [address] 1538) POCT-GLUCOSE [id number] 15:14:00 Test Item Value Reference Range Interpretation Comments POC-GLUCOSE METER 151 mg/dL 70-110 H TESTED AT [facility] 6720 ([facility]) (test code = [facility] Yajaira [facility] 1538) [address] EEG MONITORING WITH VIDEO RECORDING EACH 24 [id number] 14:43:00Dialysis 05/23For STAT EEG- after 5 PM weekdays, weekends and holidays, page the on-call EEG TechReason for exam:->Subclinical [facility] EEG REPORT DATE OF TEST: 07/31/2018;08/01/2018 DATE OF REPORT: 08/01/2018 [id number] Start time: 07/31/18 at 14:55 Stop time: 08/01/18 at 03:53 ICD-10: 26461 CPT Code: R41.82 HISTORY: 48 yo female [...] Wolf MD PhD Attending Neurophysiologist/Epileptologist BLOOD GAS, [id number] 12:27:00 Test Item Value Reference Range Interpretation [...] (test code = 1819) 50.0 % POCT-GLUCOSE [id number] 11:51:00 Test Item Value Reference Range Interpretation Comments POC-GLUCOSE METER 94 mg/dL 70-110 TESTED AT [facility] 6720 (BEAKER) (test code = [place] [address] 1538) MR, BRAIN, WITHOUT [id number] 10:58:00Dialysis 05/23Need an MRV also pleaseReason for [...] arteries: Normal flow-related enhancement within the bilateral ONLINE EDUCATION MANAGER P1-P2 segments without flow-limiting stenosis. Robust left posterior communicating artery with functional type ONLINE EDUCATION MANAGER circulation on the left. Right posterior commuting [...] MDReport Verified Date/Time: 08/01/2018 10:58:44 Reading Location: [address] Neuro Reading Room MR, MRA, BRAIN, WITHOUT [id number] 10:58:00Dialysis lease add MRV as wellReason for [...] arteries: Normal flow-related enhancement within the bilateral ONLINE EDUCATION MANAGER P1-P2 segments without flow-limiting stenosis. Robust left posterior communicating artery with functional type ONLINE EDUCATION MANAGER circulation on the left. Right posterior commuting [...] MDReport Verified Date/Time: 08/01/2018 10:58:44 Reading Location: [address] Neuro Reading Room MR, MRA, NECK, WITHOUT IV [id number] 10:58:00Dialysis lease add MRV as wellReason for [...] arteries: Normal flow-related enhancement within the bilateral ONLINE EDUCATION MANAGER P1-P2 segments without flow-limiting stenosis. Robust left posterior communicating artery with functional type ONLINE EDUCATION MANAGER circulation on the left. Right posterior commuting [...] MDReport Verified Date/Time: 08/01/2018 10:58:44 Reading Location: [address] Neuro Reading Room COMPREHENSIVE METABOLIC [id number] 06:44:00 Test Item Value Reference Range Interpretation [...] DIALYSIS PATIEN TS. HIV-1 ANTIGEN WITH HIV-1/2 [id number] 06:42:00 Test Item Value Reference Range Interpretation Comments HIV-1 ANTIGEN WITH HIV 1\\T\\2 Nonreactive Nonreactive ANTIBODY (2) (BEAKER) (test code = 2586) POCT-GLUCOSE [id number] 06:15:00 Test Item Value Reference Range Interpretation Comments POC-GLUCOSE METER 105 mg/dL 70-110 TESTED AT [facility] 6720 ([facility]) (test code = GILDA HANKS 1538) [address] LACTIC ACID, [id number] 05:24:00 Test Item Value Reference Range Interpretation Comments LACTATE BLOOD VENOUS (2) (BEAKER) 1.6 mmol/L 0.5-2.2 (test code = 2872) CBC W/PLT COUNT & AUTO [id number] 05:06:00 Test Item Value Reference Range Interpretation [...] = 2801) RAD, CHEST, 1 VIEW, NON [id number] 03:48:00Dialysis 05/23Reason for exam:- >intubated patientShould this [...] pneumonia. There is no pneumothorax. Signed: Aleks Jamisonort Verified Date/Time: 08/01/2018 03:48:28 Reading Location: [address] Body Reading Room POCT-GLUCOSE [id number] 03:21:00 Test Item Value Reference Range Interpretation Comments POC-GLUCOSE METER 98 mg/dL 70-110 TESTED AT [place] [address] ([facility]) (test code = GILDA Gates [facility] [address] 1538) RAD, CHEST, 1 VIEW, NON [id number] 23:12:00Dialysis 05/23Reason for exam:- >recently intubatedShould this [...] or acute bony abnormality. Signed: Juaquin Hook MDRchuckort Verified Date/Time: 07/31/2018 23:12:11 Reading Location: [address] Reading Room VANCOMYCIN LEVEL, [id number] 19:07:00 Test Item Value Reference Range Interpretation Comments VANCOMYCIN RANDOM (BEAKER) (test 19.3 ug/mL code = 523) Reference Range: No NormalsPOCT-GLUCOSE [id number] 18:21:00 Test Item Value Reference Range Interpretation Comments POC-GLUCOSE METER 149 mg/dL 70-110 H TESTED AT [facility] 6720 (BEAKER) (test code = GILDA [place] 1538) [address] BLOOD GAS, [id number] 17:07:00 Test Item Value Reference Range Interpretation [...] = 1819) 60.0 % EEG AWAKE AND [id number] 16:14:00Dialysis 05/23Reason for exam:->[facility]'S EEG REPORT DATE OF TEST: 07/31/2018DATE OF REPORT: 07/31/2018 ACC: [id number] time: 14:25Stop time: 14:48ICD-10: 56208MHH Code: R41.82 HISTORY: 48 yo female with [...] use of cefepime (MELI Napier., L[address] Melendez., Etienne, T. et al. [employer] (2019). [email or web address]). These findings were discussed with the neuro ICU consult team at approximately 3:30pm. This patient will be transitioned to continuous EEG monitoring for further evaluation. Laci Park MDClinical Neurophysiology fellow Reggie Manuel MD, MSAttending Neurophysiologist/Epileptologist [id number] 14:43:00 Test Item Value Reference Range Interpretation Comments RPR SCREEN ([employer]) (test code = Nonreactive Nonreactive 420) HSV 1/2 PCR, [id number] 14:25:00 Test Item Value Reference Range Interpretation Comments HSV BY PCR ([employer]) (test code = NEGATIVE NEGATIVE 334) Herpes [...] and its performance characteristics determined by the [facility] Pathology Department, Section of Molecular Pathology. It has not been cleared or approved by the U.S. Food and Drug Administration (FDA), as FDA approval is not required for clinical use of the test. Validation was done as required by the Clinical Laboratory Amendments of 1988.RESPIRATORY PANEL [id number] 13:38:00 Test Item Value Reference Range Interpretation [...] decisions. This sample was tested at the [facility] Molecular Diagnostics Laboratory using the [place] Respiratory Panel. It is FDA cleared and has been verified and approved by the [facility] Molecular Diagnostics Laboratory for clinical use on nasal swab specimens. It is not FDA-cleared for use on bronchial wash/lavage samples. However, for this sample type, validation was performed and test characteristics were determined and approved, by [facility] laboratory for clinical use under the Clinical Laboratory Improvement Amendments (CLIA) of 1988 requirements. Therefore, FDA clearance isnot required. This laboratory is CLIA-certified and [employer] [place] [employer] (CAP)-accredited to perform high complexity testing.POCT-GLUCOSE [id number] 11:42:00 Test Item Value Reference Range Interpretation Comments POC-GLUCOSE METER 94 mg/dL 70-110 TESTED AT [place] [address] ([facility]) (test code = [facility] [address] 1538) POCT-GLUCOSE [id number] 10:10:00 Test Item Value Reference Range Interpretation Comments POC-GLUCOSE METER 94 mg/dL 70-110 TESTED AT [place] [address] ([facility]) (test code = [facility] [address] 1538) HEMOGLOBIN [id number] 10:10:00 Test Item Value Reference Range Interpretation Comments HEMOGLOBIN A1C ([facility]) (test code = 5.6 % 4.3-6.1 368) BASIC METABOLIC [id number] 04:59:00 Test Item Value Reference Range Interpretation [...] APPLICABLE FOR DIALYSIS PATIEN TS. LACTIC ACID, [id number] 04:34:00 Test Item Value Reference Range Interpretation Comments LACTATE BLOOD VENOUS (2) (BEAKER) 1.8 mmol/L 0.5-2.2 (test code = 2872) CBC W/PLT COUNT & AUTO [id number] 04:24:00 Test Item Value Reference Range Interpretation [...] PERCENT (BEAKER) (test code = 2801) POCT-GLUCOSE [id number] 00:53:00 Test Item Value Reference Range Interpretation Comments POC-GLUCOSE METER 148 mg/dL 70-110 H TESTED AT [facility] 6720 (BEAKER) (test code = GILDA Gates [place] HANKS 1538) [address] BODY FLUID CELL COUNT WITH [id number] 22:38:00 Test Item Value Reference Range Interpretation [...] Tube (test code = 2873) LACTIC ACID, [id number] 21:38:00 Test Item Value Reference Range Interpretation Comments LACTATE BLOOD VENOUS 1.7 mmol/L 0.5-2.2 Specime n slightly (2) (BEAKER) (test hemolyzed code = 2872) LACTIC ACID, [id number] 21:38:00 Test Item Value Reference Range Interpretation Comments LACTATE BLOOD VENOUS 1.8 mmol/L 0.5-2.2 Specime n slightly (2) (BEAKER) (test hemolyzed code = 2872) AMYLASE, BODY [id number] 20:29:00 Test Item Value Reference Range Interpretation Comments AMYLASE FLUID (BEAKER) (test code = 6 U/L 350) Absence of reference range indicates that normals have not been defined.Assay performance has not been validated for this type of specimen.RAPID INFLUENZA A&B [id number] 20:03:00 Test Item Value Reference Range Interpretation Comments RAPID INFLUENZA A AG (BEAKER) Negative Negative, Inconclusive (test code = 1622) RAPID INFLUENZA B AG (BEAKER) Negative Negative, Inconclusive (test code = 1623) [id number] 19:56:00 Test Item Value Reference Range Interpretation Comments PROCALCITONIN (BEAKER) (test code 1.58 ng/mL <0.05 H = 3036) SEPSIS RISK (ng/mL)Low: 0.05-0.50Intermediate: 0.51-2.00High: >=2.01LACTIC ACID, [id number] 18:29:00 Test Item Value Reference Range Interpretation Comments LACTATE BLOOD VENOUS (2) (BEAKER) 2.0 mmol/L 0.5-2.2 (test code = 2872) TSH/FREE T4 IF [id number] 18:28:00 Test Item Value Reference Range Interpretation Comments THYROID STIMULATING HORMONE 3.68 uIU/mL 0.35-4.94 (BEAKER) (test code = 772) RESPIRATORY PANEL [id number] 18:19:00 Test Item Value Reference Range Interpretation [...] decisions. This sample was tested at the [facility] Molecular Diagnostics Laboratory using the [employer] Respiratory Panel. It is FDA cleared and has been verified and approved by the [facility] Molecular Diagnostics Laboratory for clinical use on nasal swab specimens. It is not FDA-cleared for use on bronchial wash/lavage samples. However, for this sample type, validation was performed and test characteristics were determined and approved, by [facility] Molecular Diagnostics laboratory for clinical use under the Clinical Laboratory Improvement Amendments (CLIA) of 1988 requirements. Therefore, FDA clearance isnot required. This laboratory is CLIA-certified and [employer] [place] [employer] (CAP)-accredited to perform high complexity testing.BASIC [...] S NOT APPLICABLE FOR DIALYSIS PATIEN TS. [id number] 18:13:00 Test Item Value Reference Range Interpretation Comments LIPASE (BEAKER) (test code = 749) 14 U/L 8-78 [id number] 18:13:00 Test Item Value Reference Range Interpretation Comments MAGNESIUM (BEAKER) (test code = 2.1 mg/dL 1.6-2.6 627) HEPATIC FUNCTION [id number] 18:13:00 Test Item Value Reference Range Interpretation [...] 6 U/L 6-55 347) CSF CELL COUNT [id number] 16:39:00 Test Item Value Reference Range Interpretation [...] NUMBER CSF (BEAKER) (test 1 code = 3008) B-TYPE NATRIURETIC FACTOR (BNP)2018-07-30 16:25:00 Test Item Value Reference Range Interpretation Comments B-TYPE NATRIURETIC PEPTIDE 3649 pg/mL 0-100 H (BEAKER) (test code = 700) TROPONIN [id number] 16:24:00 Test Item Value Reference Range Interpretation [...] acidosis, acute neurological disease, and persistent tachyarrhythmia.GLUCOSE, [id number] 16:22:00 Test Item Value Reference Range Interpretation Comments GLUCOSE CSF (BEAKER) (test code = 100 mg/dL 40-70 H 406) PROTEIN, [id number] 16:22:00 Test Item Value Reference Range Interpretation Comments PROTEIN CSF (BEAKER) (test code = 45 mg/dL 15-45 378) TACROLIMUS [id number] 15:10:00 Test Item Value Reference Range Interpretation Comments TACROLIMUS BLOOD (BEAKER) (test code < ng/mL 10.0-20.0 L = 657) TROPONIN [id number] 14:31:00 Test Item Value Reference Range Interpretation [...] failure, acidosis, acute neurological disease, and persistent tachyarrhythmia.PT/[id number] 14:15:00 Test Item Value Reference Range Interpretation [...] 2.5-3.5 for patients with mechanical heart valves.PROTHROMBIN TIME/[id number] 14:14:00 Test Item Value Reference Range Interpretation Comments PROTIME (BEAKER) (test code = 14.0 seconds 11.7-14.7 759) INR (BEAKER) (test code = 370) 1.1 <=5.9 RECOMMENDED COUMADIN/WARFARIN INR THERAPY RANGESSTANDARD DOSE: 2.0 - 3.0 Includes: PROPHYLAXIS forvenous thrombosis, systemic embolization; TREATMENT for venous thrombosis and/or pulmonary embolus.HIGH RISK: Target INR is 2.5-3.5 for patients with mechanical heart valves.POCT-LACTIC ACID, [id number] 12:58:00 Test Item Value Reference Range Interpretation Comments POC-LACTIC ACID, 1.1 mmol/L 0.9-1.[address] [facility] 6720 VENOUS (BEAKER) (test GILDA Gates [place] code = 2805) [address] BLOOD GAS, [id number] 11:46:00 Test Item Value Reference Range Interpretation [...] (BEAKER) (test code = 1819) 32.0 % [id number] 08:34:00 Test Item Value Reference Range Interpretation Comments MAGNESIUM (BEAKER) (test code = 2.2 mg/dL 1.6-2.6 627) [id number] 08:34:00 Test Item Value Reference Range Interpretation Comments PHOSPHORUS (BEAKER) (test code = 3.9 mg/dL 2.3-4.7 604) CT, BRAIN, WITHOUT [id number] 06:36:00Dialysis 05/23Reason for exam:- >ALTERED MENTAL STATUSIs [...] acute intracranial pathology persists. Signed: Aleks Jamison Verified Date/Time: 07/30/2018 06:36:01 Reading Location: [address] Body Reading Room RAD, CHEST, 1 VIEW, NON [id number] 06:15:00 Dialysis 05/23Reason for exam:->coughIs the patient [...] excluded.Small bilateral pleural effusions. Signed: Aleks Jamison Verified Date/Time: 07/30/2018 06:15:50 Reading Location[facility] Body Reading Room BASIC METABOLIC [id number] 05:44:00 Test Item Value Reference Range Interpretation [...] APPLICABLE FOR DIALYSIS PATIEN TS. HEPATIC FUNCTION [id number] 05:42:00 Test Item Value Reference Range Interpretation [...] (test code = 8 U/L 6-55 347) [id number] 05:39:00 Test Item Value Reference Range Interpretation Comments AMMONIA (BEAKER) 48 mol/L 18-72 Specimen sl ightly (test code = 348) hemolyzed CBC W/PLT COUNT & AUTO [id number] 05:34:00 Test Item Value Reference Range Interpretation [...] PERCENT (BEAKER) (test code = 2801) CULTURE, [id number] 09:00:00 Test Item Value Reference Range Interpretation [...] REPORT code = Report Text16) WHOLE BLOOD [id number] 12:35:00 Test Item Value Reference Range Interpretation Comments WHOLE BLOOD GLUCOSE (test code = 209 MG/DL 70-99 H POC GLU) BMP, BASIC METABOLIC [id number] 11:05:00 Test Item Value Reference Range Interpretation [...] glucose = GLUCOSE) normal <100 MG/ DL- [place] recommendation* * CALCIUM (test code 7.3 MG/DL 8.4-10.2 L = CABLOOD) GFR (test code = 2 mL/min/1.73m2 A GFR of >90 GFR) mL/min/1.73m2 i s considered norm al. WHOLE BLOOD [id number] 06:45:00 Test Item Value Reference Range Interpretation Comments WHOLE BLOOD GLUCOSE (test code = 183 MG/DL 70-99 H POC GLU) WHOLE BLOOD [id number] 00:15:00 Test Item Value Reference Range Interpretation Comments WHOLE BLOOD GLUCOSE (test code = 160 MG/DL 70-99 H POC GLU) WHOLE BLOOD [id number] 21:20:00 Test Item Value Reference Range Interpretation Comments WHOLE BLOOD GLUCOSE (test code = 136 MG/DL 70-99 H POC GLU) WHOLE BLOOD [id number] 16:45:00 Test Item Value Reference Range Interpretation Comments WHOLE BLOOD GLUCOSE (test code = 127 MG/DL 70-99 H POC GLU) IRON/ BINDING CAPACITY/ [id number] 13:01:00 Test Item Value Reference Range Interpretation Comments IRON % SATURATION (test 32 % 20-45 code = %SAT) IRON (test code = FE) 77 UG/DL 37-170 If Iro n is <6 the % saturation is incalculable. IBC (test code = IBC) 238 265-497 L [id number] 13:01:00 Test Item Value Reference Range Interpretation Comments FERRITIN (test code = FERR) 573 NG/ML 6-137 H BMP, BASIC METABOLIC [id number] 05:06:00 Test Item Value Reference Range Interpretation [...] glucose = GLUCOSE) normal <100 MG/ DL- [place] recommendation* * CALCIUM (test code 7.3 MG/DL 8.4-10.2 L = CABLOOD) GFR (test code = 3 mL/min/1.73m2 A GFR of >90 GFR) mL/min/1.73m2 i s considered norm al. [id number] 04:34:00 Test Item Value Reference Range Interpretation [...] K/UL 1.2-7.2 = NEUT) CELL COUNT, BODY [id number] 23:37:00 Test Item Value Reference Range Interpretation Comments SOURCE (test code = SOURBF) PERITONEALFLUID VOLUME (test code = VOLBF) 6 ML APPEARANCE (test code = CLEAR APPBF) BODY FLUID COLOR (test code = COLORLESS COLRBF) RBC (test code = RBCBF) 0 /CUMM 0-<1000 WBC (test code = WBCBF) 0 /CUMM 0-5 WHOLE BLOOD [id number] 20:40:00 Test Item Value Reference Range Interpretation Comments WHOLE BLOOD GLUCOSE (test code = 104 MG/DL 70-99 POC GLU) [id number] 17:58:00 Test Item Value Reference Range Interpretation Comments BLOOD TYPE (test code = TYPE) O Rh Positive ANTIBODY SCREEN (test code = NEGATIVE NEGATIVE SCREEN) CHEST XR 2 [id number] 16:55:[address] [address]LXKQZXHJLI IMAGING REPORTPatient Name: Karin ROWAN of Service: [id number]: 46 Sex: F Order #: [id number] [facility] 1971 X-Ray Number: [id number] Record Number: [id number] Hospital Number: [id number] Physician: DUNIA COOPER -Ordering Physician: LAURA CARMICHAEL XR 2 VIEWS 05/16/2018 4:45 PMHISTORY: cough . Chest pain with shortness of breath.COMPARISON: NoneTECHNIQUE: Two-view chestFINDINGS:The cardiomediastinal silhouette is enlarged with her central vascularengorgement with pulmonary edema. There is a trace right effusion. There isno pneumothorax.IMPRESSION:1. Cardiomegaly with pulmonary edema and a trace right pleural effusion.Electronically Signed By: Coral Ko M.D., 05/16/2018 4:53 PMLegally authenticated by SUSU MONCADA 2018-05-16 16:53:21CT HEAD W/O [id number] 16:12:[address] [address]BJBIFIHKVL IMAGING REPORTPatient Name: Karin ROWAN of Service: [id number]: 47 Sex: F Order #: [id number] Room: ERDOB: 1970 X-Ray Number: [id number] Record Number: [id number] Hospital Number: [id number] Physician: DUNIA COOPER -Ordering Physician: LAURA CARMICHAEL TANHead CT 05/16/2018 4:02 PMHistory: AMS, hypertensive crisis. [...] 4:09 PMLegally authenticated by SUSU MONCADA 2018-05-16 16:09:[id number] 15:41:00 Test Item Value Reference Range Interpretation [...] glucose = GLUCOSE) normal <100 MG/ DL- [place] recommendation* * CALCIUM (test [...] s considered norm al. RESULTS VERIFIED.C'd TO JAMISON/SYED/1540/[id number] 15:09:00 Test Item Value Reference Range Interpretation [...] 6.0 K/UL 1.2-7.2 = NEUT) WHOLE BLOOD [id number] 14:55:00 Test Item Value Reference Range Interpretation Comments WHOLE BLOOD GLUCOSE (test code = 162 MG/DL 70-99 H POC GLU) AFB CULTURE + [id number] 13:42:00 Test Item Value Reference Range Interpretation Comments CULTURE (BEAKER) (test No acid-fast bacilli code = 1095) isolated in 42 days AFB SMEAR (BEAKER) No acid fast bacilli (test code = 994) seen FUNGUS CULTURE + [id number] 06:53:00 Test Item Value Reference Range Interpretation Comments CULTURE (BEAKER) (test No fungus isolated in code = 1095) 28 days FUNGUS SMEAR (BEAKER) No fungi seen (test code = 1406) TISSUE [id number] 18:14:00Surgical Pathology Report Case: [id number] Authorizing Provider: Kayla South Aba, MD Collected: 02/12/2018 1238 Ordering Location: [facility] Received: 02/12/2018 1400 PERIOPERATIVE SERVICES Pathologist: Amy Ortega MD Specimen: Kidney, kidney transplant allograft KIDNEY, ALLOGRAFT, 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 Cross section shows a pale townsend parenchyma with no corticomedullary architecture. No masses are seen. Recruiting Assistant sections are submitted as follows: A1 vasculature en face;A2 through A5, sales representative consultant of kidney. CG/pl LIGHT MICROSCOPYSections from the [...] developed and its performance characteristics determined by [facility], Pathology Laboratory. It has not been cleared [...] to perform high complexity clinical laboratory testing.POCT-GLUCOSE [id number] 13:13:00 Test Item Value Reference Range Interpretation Comments POC-GLUCOSE METER 203 mg/dL 70-110 H TESTED AT [facility] 67 (BEAKER) (test code = GILDA Gates [facility] 1538) [address] TISSUE [id number] 12:32:00Surgical Pathology Report Case: [id number] Authorizing Provider: Lukasz Champion, Collected: 02/20/2018 0941 Ordering Location: [address] Received: 02/20/2018 1404 Pathologist: Prerna Ramsey MD Specimens: A) - [...] MALIGNANCY SEEN Signing Pathologist Direct Phone Line: [phone] signed by Prerna Ramsey MD on 02/21/2018 at 12:32 [id number] X 2AnemiaA. Right ascending colon polyp; B. [...] submitted entirely B1. CG/pl A-B. Performed. POCT-GLUCOSE [id number] 09:09:00 Test Item Value Reference Range Interpretation Comments POC-GLUCOSE METER 198 mg/dL 70-110 H TESTED AT [facility] 6720 (BEAKER) (test code = GILDA Gates [facility] 1538) [address] BASIC METABOLIC [id number] 04:27:00 Test Item Value Reference Range Interpretation [...] S NOT APPLICABLE FOR DIALYSIS PATIEN TS. [id number] 04:11:00 Test Item Value Reference Range Interpretation Comments PHOSPHORUS (BEAKER) (test code = 4.5 mg/dL 2.3-4.7 604) [id number] 04:11:00 Test Item Value Reference Range Interpretation Comments MAGNESIUM (BEAKER) (test code = 2.4 mg/dL 1.6-2.6 627) PROTHROMBIN [id number] 04:09:00 Test Item Value Reference Range Interpretation [...] IMMATURE GRANULOCYTES-RELATIVE 3 % 0-1 H PERCENT (BEAKER) (test code = 2801) POCT-GLUCOSE [id number] 23:24:00 Test Item Value Reference Range Interpretation Comments POC-GLUCOSE METER 259 mg/dL 70-110 H TESTED AT [facility] 6720 (BEAKER) (test code = GILDA HANKS 1538) [address] CT, CHEST WITH IV CONTRAST- PE TEST [id number] 22:13:00Dialysis 05/23FINAL REPORT CT Chest PE Protocol [...] MDReport Verified Date/Time: 02/20/2018 22:13:58 Reading Location: [address] Consult Reading Room POCT-GLUCOSE [id number] 17:56:00 Test Item Value Reference Range Interpretation Comments POC-GLUCOSE METER 132 mg/dL 70-110 H TESTED AT [place] [address] ([facility]) (test code = GILDA Gates [place] [address]) [address] RAD, CHEST, 1 VIEW, NON [id number] 14:28:00Dialysis 05/23Reason for exam:- >edemaShould this be performed at the bedside?->YesFINAL REPORT TECHNIQUE: Frontal chest radiograph dated 02/20/2018. CLINICAL H ISTORY: Edema COMPARISON STUDY: Chest radiograph dated 02/16/2018 IMPRESSION:Right-sided vascular line has been removed. Minimal atelectasis is seen in the left lung base. No pleural effusion or pneumothorax. Cardiomediastinal silhouette is stable in size. No pulmonary edema. No fracture. Signed: Dylan Núñezeport Verified Date/Time: 02/20/2018 14:28:38 Reading Location: [facility] Radiology Reading Room POCT-GLUCOSE [id number] 11:40:00 Test Item Value Reference Range Interpretation Comments POC-GLUCOSE METER 79 mg/dL 70-110 TESTED AT [facility] 6720 (BEAKER) (test code = [facility] [address] 1538) POCT-GLUCOSE [id number] 09:09:00 Test Item Value Reference Range Interpretation Comments POC-GLUCOSE METER 76 mg/dL 70-110 TESTED AT [facility] 6720 (BEAKER) (test code = [facility] [address] 1538) BASIC METABOLIC [id number] 06:28:00 Test Item Value Reference Range Interpretation [...] S NOT APPLICABLE FOR DIALYSIS PATIEN TS. [id number] 06:27:00 Test Item Value Reference Range Interpretation Comments PHOSPHORUS (BEAKER) (test code = 4.9 mg/dL 2.3-4.7 H 604) [id number] 06:27:00 Test Item Value Reference Range Interpretation Comments MAGNESIUM (BEAKER) (test code = 2.3 mg/dL 1.6-2.6 627) PROTHROMBIN [id number] 06:12:00 Test Item Value Reference Range Interpretation [...] code = 412) PLATELET COUNT (BEAKER) (test 220 K/CU MM 150-450 code = 756) MEAN PLATELET VOLUME (BEAKER) 9.4 fL 9.4-12.3 (test code = 754) NUCLEATED RED BLOOD CELLS 0 /100 WBC 0-0 (BEAKER) (test code = 413) POCT-GLUCOSE [id number] 21:36:00 Test Item Value Reference Range Interpretation Comments POC-GLUCOSE METER 247 mg/dL 70-110 H TESTED AT [facility] 6720 (BEAKER) (test code = GILDA HANKS 1538) [address] POCT-GLUCOSE [id number] 17:43:00 Test Item Value Reference Range Interpretation Comments POC-GLUCOSE METER 95 mg/dL 70-110 TESTED AT [place] [address] (BEAKER) (test code = GILDA Gates [facility] [address] 1538) [id number] 14:31:00 Test Item Value Reference Range Interpretation Comments HAPTOGLOBIN (BEAKER) (test code = 339 mg/dL 14-258 H 366) POCT-GLUCOSE [id number] 13:39:00 Test Item Value Reference Range Interpretation Comments POC-GLUCOSE METER 143 mg/dL 70-110 H TESTED AT [place] [address] (BEAKER) (test code = GILDA Gates [facility] 1538) [address] POCT-GLUCOSE [id number] 08:47:00 Test Item Value Reference Range Interpretation Comments POC-GLUCOSE METER 142 mg/dL 70-110 H TEST[facility] AT [place] [address] [facility] (test code = GILDA Gates [facility] 1538) [address] VITAMIN B12 AND [id number] 04:25:00 Test Item Value Reference Range Interpretation Comments VITAMIN B12 (BEAKER) (test code = 252 pg/mL 213-816 774) FOLATE (BEAKER) (test code = 362) 10.9 ng/mL >=7.0 BASIC METABOLIC [id number] 03:56:00 Test Item Value Reference Range Interpretation [...] S NOT APPLICABLE FOR DIALYSIS PATIEN TS. [id number] 03:55:00 Test Item Value Reference Range Interpretation Comments PHOSPHORUS (BEAKER) (test code = 4.0 mg/dL 2.3-4.7 604) [id number] 03:55:00 Test Item Value Reference Range Interpretation [...] % 20-55 (test code = 2590) ANAEROBIC [id number] 03:46:00 Test Item Value Reference Range Interpretation Comments CULTURE (BEAKER) (test No anaerobes isolated code = 1095) PROTHROMBIN [id number] 03:41:00 Test Item Value Reference Range Interpretation [...] code = 412) PLATELET COUNT (AKER) (test 230 K/CU MM 150-450 code = 756) MEAN PLATELET VOLUME (BEAKER) 9.1 fL 9.4-12.3 L (test code = 754) NUCLEATED RED BLOOD CELLS 0 /100 WBC 0-0 ([facility]) (test code = 413) RETICULOCYTE [id number] 03:34:00 Test Item Value Reference Range Interpretation Comments RETICULOCYTE COUNT PCT ([facility]) (test 2.9 % 0.5-1.7 H code = 575) POCT-GLUCOSE [id number] 21:15:00 Test Item Value Reference Range Interpretation Comments POC-GLUCOSE METER 170 mg/dL 70-110 H TESTED AT [place] [address] ([facility]) (test code = [facility] 1538) [address] POCT-GLUCOSE [id number] 17:30:00 Test Item Value Reference Range Interpretation Comments POC-GLUCOSE METER 152 mg/dL 70-110 H TESTED AT [place] [address] ([facility]) (test code = [facility] 1538) [address] POCT-GLUCOSE [id number] 12:46:00 Test Item Value Reference Range Interpretation Comments POC-GLUCOSE METER 92 mg/dL 70-110 TESTED AT [place] [address] ([facility]) (test code = [facility] [address] 1538) BASIC METABOLIC [id number] 04:30:00 Test Item Value Reference Range Interpretation [...] S NOT APPLICABLE FOR DIALYSIS PATIEN TS. [id number] 04:29:00 Test Item Value Reference Range Interpretation Comments PHOSPHORUS (BEAKER) (test code = 6.2 mg/dL 2.3-4.7 H 604) [id number] 04:29:00 Test Item Value Reference Range Interpretation [...] CELL DISTRIBUTION WIDTH 14.9 % 11.7-14.4 H ([facility]) (test code = 412) PLATELET COUNT ([facility]) (test 161 K/CU MM 150-450 code = 756) MEAN PLATELET VOLUME ([facility]) 9.2 fL 9.4-12.3 L (test code = 754) NUCLEATED RED BLOOD CELLS 0 /100 WBC 0-0 ([facility]) (test code = 413) PROTHROMBIN [id number] 04:13:00 Test Item Value Reference Range Interpretation Comments PROTIME ([facility]) (test code = 14.7 seconds 11.7-14.7 759) INR ([facility]) (test code = 370) 1.2 <=5.9 RECOMMENDED COUMADIN/WARFARIN INR THERAPY RANGESSTANDARD DOSE: 2.0 - 3.0 Includes: PROPHYLAXIS forvenous thrombosis, systemic embolization; TREATMENT for venous thrombosis and/or pulmonary embolus.HIGH RISK: Target INR is 2.5-3.5 for patients with mechanical heart valves.OCCULT BLOOD, [id number] 23:05:00 Test Item Value Reference Range Interpretation Comments FECAL OCCULT BLOOD ([facility]) (test Negative Negative code = 618) POCT-GLUCOSE [id number] 22:06:00 Test Item Value Reference Range Interpretation Comments POC-GLUCOSE METER 243 mg/dL 70-110 H TESTED AT [place] [address] ([facility]) (test code = GILDA Gates [facility] 1538) [address] POCT-GLUCOSE [id number] 22:06:00 Test Item Value Reference Range Interpretation Comments POC-GLUCOSE METER 134 mg/dL 70-110 H TESTED AT [place] [address] ([facility]) (test code = [facility] Yajaira [facility] 1538) [address] POCT-GLUCOSE [id number] 22:06:00 Test Item Value Reference Range Interpretation Comments POC-GLUCOSE METER 211 mg/dL 70-110 H TESTED AT [place] [address] ([facility]) (test code = [facility] 1538) [address] CBC W/PLT COUNT & AUTO [id number] 21:49:00 Test Item Value Reference Range Interpretation Comments WHITE BLOOD CELL COUNT ([facility]) 8.8 K/ L 3.5-10.5 (test code = [...] PERCENT (BEAKER) (test code = 2801) POCT-GLUCOSE [id number] 21:21:00 Test Item Value Reference Range Interpretation Comments POC-GLUCOSE METER 171 mg/dL 70-110 H TESTED AT [facility] 6720 (BEAKER) (test code = GILDA Gates [place] 1538) [address] POCT-GLUCOSE [id number] 18:27:00 Test Item Value Reference Range Interpretation Comments POC-GLUCOSE METER 175 mg/dL 70-110 H TESTED AT [facility] 6720 (BEAKER) (test code = GILDA Gates [place] 1538) [address] POCT-GLUCOSE [id number] 09:03:00 Test Item Value Reference Range Interpretation Comments POC-GLUCOSE METER 136 mg/dL 70-110 H TESTED AT [facility] 6720 (BEAKER) (test code = GILDA Gates [place] 1538) [address] BASIC METABOLIC [id number] 06:57:00 Test Item Value Reference Range Interpretation [...] S NOT APPLICABLE FOR DIALYSIS PATIEN TS. [id number] 06:52:00 Test Item Value Reference Range Interpretation Comments MAGNESIUM (BEAKER) 2.6 mg/dL 1.6-2.6 Specimen slightly (test code = 627) hemolyzed [id number] 06:52:00 Test Item Value Reference Range Interpretation Comments PHOSPHORUS (BEAKER) 5.6 mg/dL 2.3-4.7 H Specimen slightly (test code = 604) hemolyzed PROTHROMBIN [id number] 06:52:00 Test Item Value Reference Range Interpretation [...] 0-0 (BEAKER) (test code = 413) POCT-GLUCOSE [id number] 21:13:00 Test Item Value Reference Range Interpretation Comments POC-GLUCOSE METER 143 mg/dL 70-110 H TESTED AT [facility] 6720 (BEAKER) (test code = GILDA HANKS 1538) [address] POCT-GLUCOSE [id number] 18:12:00 Test Item Value Reference Range Interpretation Comments POC-GLUCOSE METER 177 mg/dL 70-110 H TESTED AT [facility] 6720 (BEAKER) (test code = GILDA Gates [facility] 1538) [address] POCT-GLUCOSE [id number] 18:12:00 Test Item Value Reference Range Interpretation Comments POC-GLUCOSE METER 127 mg/dL 70-110 H TESTED AT [facility] 6720 (BEAKER) (test code = GILDA Gates [facility] 1538) [address] CBC W/PLT COUNT & AUTO [id number] 12:47:00 Test Item Value Reference Range Interpretation [...] PERCENT (BEAKER) (test code = 2801) POCT-GLUCOSE [id number] 11:58:00 Test Item Value Reference Range Interpretation Comments POC-GLUCOSE METER 109 mg/dL 70-110 TESTED AT [place] [address] ([facility]) (test code = GILDA HANKS 1538) [address] POCT-GLUCOSE [id number] 09:34:00 Test Item Value Reference Range Interpretation Comments POC-GLUCOSE METER 105 mg/dL 70-110 TESTED AT [place] [address] ([facility]) (test code = GILDA HANKS 1538) [address] [id number] 07:19:00 Test Item Value Reference Range Interpretation Comments PREALBUMIN (BEAKER) (test code = 23 mg/dL 14-45 586) BASIC METABOLIC [id number] 07:06:00 Test Item Value Reference Range Interpretation [...] S NOT APPLICABLE FOR DIALYSIS PATIEN TS. [id number] 07:04:00 Test Item Value Reference Range Interpretation Comments PHOSPHORUS (BEAKER) (test code = 7.9 mg/dL 2.3-4.7 H 604) [id number] 07:04:00 Test Item Value Reference Range Interpretation Comments MAGNESIUM (BEAKER) (test code = 2.5 mg/dL 1.6-2.6 627) PROTHROMBIN [id number] 06:49:00 Test Item Value Reference Range Interpretation Comments PROTIME (BEAKER) (test code = 15.6 seconds 11.7-14.7 H 759) INR (BEAKER) (test code = 370) 1.2 <=5.9 RECOMMENDED COUMADIN/WARFARIN INR THERAPY RANGESSTANDARD DOSE: 2.0 - 3.0 Includes: PROPHYLAXIS forvenous thrombosis, systemic embolization; TREATMENT for venous thrombosis and/or pulmonary embolus.HIGH RISK: Target INR is 2.5-3.5 for patients with mechanical heart valves.HEPATITIS B SURFACE [id number] 01:41:00 Test Item Value Reference Range Interpretation Comments HEPATITIS B SURFACE ANTIGEN (2) Nonreactive Nonreactive (BEAKER) (test code = 2585) RAD, CHEST, 2 VIEWS, APICAL [id number] 00:08:00Dialysis 05/23Reason for exam:->patient requiring persistent [id number] REPORT INDICATION: patient requiring persistent o2 COMPARISON: February 13, 2018 TECHNIQUE: Frontal and lateral views of the chest. IMPRESSION:Limited by body habitus.Lungs and pleura: Areas of subsegmental atelectasis versus developing edema. Trace posterior lesions.Heart and mediastinum: Unchanged cardiomegaly. No hilar adenopathy.Osseous structures: No acute abnormality.Additional findings: Stable IJ central venous catheter. Signed: JR Arce Robert MDRepscott Verified Date/Time: 02/16/2018 00:08:03 Reading Location: [address] Reading Room POCT-GLUCOSE [id number] 17:09:00 Test Item Value Reference Range Interpretation Comments POC-GLUCOSE METER 181 mg/dL 70-110 H TESTED AT [place] [address] (BEAKER) (test code = GILDA Gates [place] 1538) [address] POCT-GLUCOSE [id number] 10:53:00 Test Item Value Reference Range Interpretation Comments POC-GLUCOSE METER 138 mg/dL 70-110 H TESTED AT [place] [address] (BEAKER) (test code = GILDA Gates [place] 1538) [address] POCT-GLUCOSE [id number] 10:53:00 Test Item Value Reference Range Interpretation Comments POC-GLUCOSE METER 201 mg/dL 70-110 H TESTED AT [place] [address] ([facility]) (test code = GILDA Gates [place] 1538) [address] SURGICALLY OBTAINED CULTURE + GRAM [id number] 08:17:00 Test Item Value Reference Range Interpretation Comments CULTURE (BEAKER) (test code No growth = 1095) GRAM STAIN RESULT ([facility]) <1+ WBCs (test code = 1123) GRAM STAIN RESULT ([facility]) No organisms seen (test code = 96018) POCT-GLUCOSE [id number] 08:10:00 Test Item Value Reference Range Interpretation Comments POC-GLUCOSE METER 160 mg/dL 70-110 H TESTED AT [place] [address] ([facility]) (test code = GILDA Gates [place] 1538) [address] CBC W/PLT COUNT & AUTO [id number] 07:01:00 Test Item Value Reference Range Interpretation [...] (BEAKER) (test code = 2801) BASIC METABOLIC [id number] 06:23:00 Test Item Value Reference Range Interpretation [...] S NOT APPLICABLE FOR DIALYSIS PATIEN TS. [id number] 06:21:00 Test Item Value Reference Range Interpretation Comments PHOSPHORUS (BEAKER) (test code = 7.0 mg/dL 2.3-4.7 H 604) [id number] 06:21:00 Test Item Value Reference Range Interpretation Comments MAGNESIUM (BEAKER) (test code = 2.1 mg/dL 1.6-2.6 627) PROTHROMBIN [id number] 06:10:00 Test Item Value Reference Range Interpretation Comments PROTIME (BEAKER) (test code = 14.1 seconds 11.7-14.7 759) INR (BEAKER) (test code = 370) 1.1 <=5.9 RECOMMENDED COUMADIN/WARFARIN INR THERAPY RANGESSTANDARD DOSE: 2.0 - 3.0 Includes: PROPHYLAXIS forvenous thrombosis, systemic embolization; TREATMENT for venous thrombosis and/or pulmonary embolus.HIGH RISK: Target INR is 2.5-3.5 for patients with mechanical heart valves.BLOOD [id number] 06:00:00 Test Item Value Reference Range Interpretation Comments CULTURE (BEAKER) (test No growth in 5 days code = 1095) BLOOD [id number] 06:00:00 Test Item Value Reference Range Interpretation Comments CULTURE (BEAKER) (test No growth in 5 days code = 1095) POCT-GLUCOSE [id number] 22:46:00 Test Item Value Reference Range Interpretation Comments POC-GLUCOSE METER 166 mg/dL 70-110 H TESTED AT [facility] 6720 (BEAKER) (test code = GILDA Yajaira [place] 1532) [address] BODY FLUID CULTURE + GRAM [id number] 08:30:00 Test Item Value Reference Range Interpretation Comments CULTURE (BEAKER) (test code No growth = 1095) GRAM STAIN RESULT (BEAKER) No WBCs (test code = 1123) GRAM STAIN RESULT (BEAKER) No organisms seen (test code = 36210) POCT-GLUCOSE [id number] 08:09:00 Test Item Value Reference Range Interpretation Comments POC-GLUCOSE METER 138 mg/dL 70-110 H TESTED AT [facility] 6720 (BEAKER) (test code = GILDA [place] 1538) [address] BASIC METABOLIC [id number] 08:04:00 Test Item Value Reference Range Interpretation [...] NOT APPLICABLE FOR DIALYSIS PATIEN TS. PROTHROMBIN [id number] 07:58:00 Test Item Value Reference Range Interpretation Comments PROTIME (BEAKER) (test code = 14.6 seconds 11.7-14.7 759) INR (BEAKER) (test code = 370) 1.1 <=5.9 RECOMMENDED COUMADIN/WARFARIN INR THERAPY RANGESSTANDARD DOSE: 2.0 - 3.0 Includes: PROPHYLAXIS forvenous thrombosis, systemic embolization; TREATMENT for venous thrombosis and/or pulmonary embolus.HIGH RISK: Target INR is 2.5-3.5 for patients with mechanical heart valves.[id number] 07:58:00 Test Item Value Reference Range Interpretation Comments PHOSPHORUS (BEAKER) (test code = 5.9 mg/dL 2.3-4.7 H 604) [id number] 07:58:00 Test Item Value Reference Range Interpretation Comments MAGNESIUM (BEAKER) (test code = 2.1 mg/dL 1.6-2.6 627) CBC W/PLT COUNT & AUTO [id number] 07:45:00 Test Item Value Reference Range Interpretation [...] PERCENT (BEAKER) (test code = 2801) POCT-GLUCOSE [id number] 22:29:00 Test Item Value Reference Range Interpretation Comments POC-GLUCOSE METER 177 mg/dL 70-110 H TESTED AT [facility] 6720 ([facility]) (test code = GILDA Gates [place] 1538) [address] ANG, NON-TUNNELED CATH >5 Y.O. [id number] 17:29:00Dialysis 05/23Reason for exam:->esrd needs access stat [...] dose reported as (Ka,r): 7.2 mGy Signed: Schuster, Sheba MDReport Verified Date/Time: 02/13/2018 17:29:57 Reading Location: [facility] B1 P048 Angio Body Reading Room POCT-GLUCOSE [id number] 16:47:00 Test Item Value Reference Range Interpretation Comments POC-GLUCOSE METER 184 mg/dL 70-110 H TESTED AT [place] [address] ([facility]) (test code = [place] [address]) [address] RAD, CHEST, 1 VIEW, NON [id number] 11:34:00Dialysis 05/23Reason for exam:- >fluid overloadFINAL REPORT [...] MDReport Verified Date/Time: 02/13/2018 11:34:05 Reading Location: [facility] Radiology Reading Room POCT-GLUCOSE [id number] 10:40:00 Test Item Value Reference Range Interpretation Comments POC-GLUCOSE METER 166 mg/dL 70-110 H TESTED AT [facility] 6720 (BEAKER) (test code = [facility] 1538) [address] BASIC METABOLIC [id number] 08:41:00 Test Item Value Reference Range Interpretation [...] NOT APPLICABLE FOR DIALYSIS PATIEN TS. POCT-GLUCOSE [id number] 07:40:00 Test Item Value Reference Range Interpretation Comments POC-GLUCOSE METER 137 mg/dL 70-110 H TESTED AT [place] [address] (BEAKER) (test code = [facility] 1538) [address] BASIC METABOLIC [id number] 06:55:00 Test Item Value Reference Range Interpretation [...] NOT APPLICABLE FOR DIALYSIS PATIEN TS. POCT-GLUCOSE [id number] 06:28:00 Test Item Value Reference Range Interpretation Comments POC-GLUCOSE METER 153 mg/dL 70-110 H TESTED AT [facility] 6720 (BEAKER) (test code = [facility] 1538) [address] BASIC METABOLIC [id number] 04:30:00 Test Item Value Reference Range Interpretation [...] S NOT APPLICABLE FOR DIALYSIS PATIEN TS. [id number] 04:28:00 Test Item Value Reference Range Interpretation Comments PHOSPHORUS (BEAKER) (test code = 7.3 mg/dL 2.3-4.7 H 604) [id number] 04:28:00 Test Item Value Reference Range Interpretation Comments MAGNESIUM (BEAKER) (test code = 2.2 mg/dL 1.6-2.6 627) PROTHROMBIN [id number] 03:51:00 Test Item Value Reference Range Interpretation [...] % 0-1 PERCENT (BEAKER) (test code = 0641) POCT-GLUCOSE [id number] 22:22:00 Test Item Value Reference Range Interpretation Comments POC-GLUCOSE METER 210 mg/dL 70-110 H TESTED AT [facility] 6720 (BEAKER) (test code = GILDA Gates [place] 1538) [address] POCT-GLUCOSE [id number] 15:24:00 Test Item Value Reference Range Interpretation Comments POC-GLUCOSE METER 228 mg/dL 70-110 H TESTED AT [facility] 67 (BEAKER) (test code = GILDA Gates [place] 1538) [address] CALCIUM, [id number] 13:32:00 Test Item Value Reference Range Interpretation Comments CALCIUM IONIZED (BEAKER) (test 0.81 mmol/L 1.12-1.27 L code = 698) PH, BLOOD (BEAKER) (test code = 7.35 1810) GLUCOSE-STAT [id number] 13:32:00 Test Item Value Reference Range Interpretation Comments GLUCOSE RANDOM (BEAKER) (test code 112 mg/dL 70-110 H = 652) HGB/HCT (H&H) - STAT [id number] 13:32:00 Test Item Value Reference Range Interpretation Comments HEMOGLOBIN (BEAKER) (test code = 6.9 g/dL 12.0-15.0 L 410) HEMATOCRIT (BEAKER) (test code = 20.0 % 36.0-45.0 L 411) SODIUM NA-STAT [id number] 13:30:00 Test Item Value Reference Range Interpretation Comments SODIUM (BEAKER) (test code = 381) 139 meq/L 135-148 POTASSIUM-STAT [id number] 13:30:00 Test Item Value Reference Range Interpretation Comments POTASSIUM (BEAKER) (test code = 4.7 meq/L 3.6-5.5 379) POCT-GLUCOSE [id number] 07:20:00 Test Item Value Reference Range Interpretation Comments POC-GLUCOSE METER 157 mg/dL 70-110 H TESTED AT [facility] 6720 (BEAKER) (test code = GILDA Gates [place] 1538) [address] BASIC METABOLIC [id number] 04:11:00 Test Item Value Reference Range Interpretation [...] S NOT APPLICABLE FOR DIALYSIS PATIEN TS. [id number] 04:08:00 Test Item Value Reference Range Interpretation Comments PHOSPHORUS (BEAKER) (test code = 7.3 mg/dL 2.3-4.7 H 604) [id number] 04:08:00 Test Item Value Reference Range Interpretation Comments MAGNESIUM (BEAKER) (test code = 2.1 mg/dL 1.6-2.6 627) HEPATIC FUNCTION [id number] 04:08:00 Test Item Value Reference Range Interpretation [...] code = 7 U/L 6-55 347) PROTHROMBIN [id number] 03:56:00 Test Item Value Reference Range Interpretation [...] NEUTROPHILS ABSOLUTE COUNT 3.46 K/ L 1.56-6.13 ([facility]) (test code = 670) LYMPHOCYTES ABSOLUTE COUNT 2.53 K/ L 1.18-3.74 ([facility]) (test code = 414) MONOCYTES ABSOLUTE COUNT ([facility]) 0.49 K/ L 0.24-0.36 H (test code = 415) EOSINOPHILS ABSOLUTE COUNT 0.19 K/ L 0.04-0.36 ([facility]) (test code = 416) BASOPHILS ABSOLUTE COUNT ([facility]) 0.02 K/ L 0.01-0.08 (test code = 417) IMMATURE GRANULOCYTES-RELATIVE 2 % 0-1 H PERCENT ([facility]) (test code = 2801) POCT-GLUCOSE [id number] 21:27:00 Test Item Value Reference Range Interpretation Comments POC-GLUCOSE METER 188 mg/dL 70-110 H TESTED AT [place] [address] ([facility]) (test code = [facility] 1538) [address] POCT-GLUCOSE [id number] 17:16:00 Test Item Value Reference Range Interpretation Comments POC-GLUCOSE METER 174 mg/dL 70-110 H TESTED AT [place] [address] ([facility]) (test code = [facility] 1538) [address] POCT-GLUCOSE [id number] 12:50:00 Test Item Value Reference Range Interpretation Comments POC-GLUCOSE METER 189 mg/dL 70-110 H TESTED AT [place] [address] ([facility]) (test code = [facility] 1538) [address] HCG, QUANTITATIVE, [id number] 12:41:00 Test Item Value Reference Range Interpretation Comments GONADOTROPIN, CHORIONIC (HCG) QUANT 2 mIU/mL 0-10 ([facility]) (test code = 649) Non- Females: <10 mIU/mL Females: Gestation Age Reference Range(mIU/mL) 0.2-1 Week 5-50 1-2 Weeks 50-500 2-3 Weeks 100-5,000 3-4Weeks 500-10,000 4-5 Weeks 1,000-50,000 5-6 Weeks 10,000-100,000 6-8 Weeks 15,000-200,000 2-3 Months 10,000-100,000BODY FLUID CELL COUNT WITH [id number] 11:52:00 Test Item Value Reference Range Interpretation [...] EDTA Tube (test code = 2873) POCT-GLUCOSE [id number] 09:51:00 Test Item Value Reference Range Interpretation Comments POC-GLUCOSE METER 115 mg/dL 70-110 H TESTED AT [facility] 67 ([facility]) (test code = [facility] 1538) [address] [id number] 09:31:00 Test Item Value Reference Range Interpretation Comments FERRITIN (BEAKER) 417 ng/mL 5-275 H This is a corrected (test code = 361) result. Pr evious result was 478 ng/mL on 02/11/2018 at 0452 CDT POCT-GLUCOSE [id number] 05:07:00 Test Item Value Reference Range Interpretation Comments POC-GLUCOSE METER 205 mg/dL 70-110 H TESTED AT [place] [address] ([facility]) (test code = [facility] 1538) [address] IRON, TIBC, % SAT. (WITHOUT FERRITIN)2018-02-11 04:32:00 Test Item Value Reference Range Interpretation Comments IRON (BEAKER) (test code = 547) 66 ug/dL 40-160 TOTAL IRON BINDING CAPACITY 244 ug/dL 250-450 L (BEAKER) (test code = 769) IRON % SATURATION (2) (BEAKER) 27 % 20-55 (test code = 2590) BASIC METABOLIC [id number] 03:57:00 Test Item Value Reference Range Interpretation [...] S NOT APPLICABLE FOR DIALYSIS PATIEN TS. [id number] 03:56:00 Test Item Value Reference Range Interpretation Comments PHOSPHORUS (BEAKER) (test code = 8.0 mg/dL 2.3-4.7 H 604) [id number] 03:56:00 Test Item Value Reference Range Interpretation Comments MAGNESIUM (BEAKER) (test code = 2.2 mg/dL 1.6-2.6 627) HEPATIC FUNCTION [id number] 03:56:00 Test Item Value Reference Range Interpretation [...] Specimen slightly lipemicCBC W/PLT COUNT & AUTO [id number] 03:47:00 Test Item Value Reference Range Interpretation [...] GRANULOCYTES-RELATIVE 2 % 0-1 H PERCENT ([facility]) (test code = 2801) OCCULT BLOOD, [id number] 22:50:00 Test Item Value Reference Range Interpretation Comments FECAL OCCULT BLOOD ([facility]) (test Negative Negative code = 618) POCT-GLUCOSE [id number] 21:21:00 Test Item Value Reference Range Interpretation Comments POC-GLUCOSE METER 248 mg/dL 70-110 H TESTED AT [place] [address] ([facility]) (test code = [facility] Yajaira [facility] 1538) [address] POCT-GLUCOSE [id number] 17:51:00 Test Item Value Reference Range Interpretation Comments POC-GLUCOSE METER 187 mg/dL 70-110 H TESTED AT [place] [address] ([facility]) (test code = [facility] Yajaira [facility] 1538) [id number] POCT-GLUCOSE [id number] 17:51:00 Test Item Value Reference Range Interpretation Comments POC-GLUCOSE METER 213 mg/dL 70-110 H TESTED AT [place] [address] ([facility]) (test code = [facility] 1538) [address] POCT-GLUCOSE [id number] 14:17:00 Test Item Value Reference Range Interpretation Comments POC-GLUCOSE METER 301 mg/dL 70-110 H Notified R William MA/TESTED ([facility]) (test code = AT [address] 1538) [facility] [id number] VITAMIN B12 AND [id number] 13:13:00 Test Item Value Reference Range Interpretation Comments VITAMIN B12 ([facility]) (test code = 267 pg/mL 213-816 774) FOLATE ([facility]) (test code = 362) 14.4 ng/mL >=7.0 POCT-GLUCOSE [id number] 12:52:00 Test Item Value Reference Range Interpretation Comments POC-GLUCOSE METER 221 mg/dL 70-110 H TESTED AT [place] [address] ([facility]) (test code = [facility] 1538) [id number] HEMOGLOBIN [id number] 12:46:00 Test Item Value Reference Range Interpretation Comments HEMOGLOBIN A1C ([facility]) (test code = 3.8 % 4.3-6.1 L 368) HEMOGLOBIN AND [id number] 12:04:00 Test Item Value Reference Range Interpretation Comments HEMOGLOBIN (BEAKER) (test code = 7.9 GM/DL 11.2-15.7 L 410) HEMATOCRIT (BEAKER) (test code = 24.1 % 34.1-44.9 L 411) CBC W/PLT COUNT & AUTO [id number] 10:51:00 Test Item Value Reference Range Interpretation [...] 3438) Received comment: User comments: Slide comments:T4, [id number] 07:02:00 Test Item Value Reference Range Interpretation Comments FREE T4 (BEAKER) (test code = 655) 0.75 ng/dL 0.70-1.48 [id number] 06:36:00 Test Item Value Reference Range Interpretation Comments PHOSPHORUS (BEAKER) (test code = 9.1 mg/dL 2.3-4.7 HH 604) TSH/FREE T4 IF [id number] 06:23:00 Test Item Value Reference Range Interpretation Comments THYROID STIMULATING HORMONE 13.77 uIU/mL 0.35-4.94 H (BEAKER) (test code = 772) BASIC METABOLIC [id number] 06:17:00 Test Item Value Reference Range Interpretation [...] NOT APPLICABLE FOR DIALYSIS PATIEN TS. LIPID [id number] 06:17:00 Test Item Value Reference Range Interpretation [...] High 160-189 Very High >=190 Specimen slightly [id number] 06:13:00 Test Item Value Reference Range Interpretation Comments MAGNESIUM (BEAKER) (test code = 2.4 mg/dL 1.6-2.6 627) HEPATIC FUNCTION [id number] 06:13:00 Test Item Value Reference Range Interpretation [...] Specimen slightly lipemicCREATINE KINASE (CK), TOTAL AND [id number] 06:13:00 Test Item Value Reference Range Interpretation Comments CREATINE KINASE TOTAL (BEAKER) 139 U/L 29-200 (test code = 380) CREATINE KINASE-MB (BEAKER) (test 1.2 ng/mL 0.0-6.6 code = 750) CREATINE KINASE-MB INDEX (BEAKER) 0.9 % (test code = 395) CK-MB Reference Range:<6.7 Normal6.7-10.0 Borderline>10.0 AbnormalC-REACTIVE [id number] 06:13:00 Test Item Value Reference Range Interpretation Comments C-REACTIVE PROTEIN (BEAKER) (test 0.61 mg/dL 0.00-0.50 H code = 676) TROPONIN [id number] 06:07:00 Test Item Value Reference Range Interpretation [...] failure, acidosis, acute neurological disease, and persistent tachyarrhythmia.[id number] 03:47:00 Test Item Value Reference Range Interpretation Comments POTASSIUM (BEAKER) 5.0 meq/L 3.5-5.1 Specimen slightly (test code = 379) hemolyzed LACTIC ACID, VENOUS, WHOLE [id number] 23:11:00 Test Item Value Reference Range Interpretation Comments LACTATE BLOOD VENOUS (2) (BEAKER) 1.0 mmol/L 0.5-2.2 (test code = 2872) Effective 09/13/2015: Units/Reference Range ChangeNew: 0.5-2.2 mmol/L Previous: 5-20 mg/dLSpecimen slightly lipemicURINALYSIS W/ REFLEX URINE [id number] 22:25:00 Test Item Value Reference Range Interpretation [...] = 516) SOURCE(BEAKER) (test code = 2795) RAD, CHEST, 1 VIEW, NON [id number] 22:16:00Dialysis 05/23Reason for exam:- >ABNORMAL LABShould this [...] MDReport Verified Date/Time: 02/09/2018 22:16:37 Reading [facility] Consult Reading Room B-TYPE NATRIURETIC FACTOR (BNP)2018-02-09 20:33:00 Test Item Value Reference Range Interpretation Comments B-TYPE NATRIURETIC PEPTIDE (BEAKER) 957 pg/mL 0-100 H (test code = 700) CREATINE KINASE (CK), TOTAL AND [id number] 20:31:00 Test Item Value Reference Range Interpretation Comments CREATINE KINASE TOTAL (BEAKER) 153 U/L 29-200 (test code = 380) CREATINE KINASE-MB (BEAKER) (test 1.5 ng/mL 0.0-6.6 code = 750) CREATINE KINASE-MB INDEX (BEAKER) 1.0 % (test code = 395) CK-MB Reference Range:<6.7 Normal6.7-10.0 Borderline>10.0 AbnormalTROPONIN [id number] 20:31:00 Test Item Value Reference Range Interpretation [...] acute neurological disease, and persistent tachyarrhythmia.BASIC METABOLIC [id number] 18:44:00 Test Item Value Reference Range Interpretation [...] PATIEN TS. CBC W/PLT COUNT & AUTO [id number] 18:22:00 Test Item Value Reference Range Interpretation [...] (test code = 2801) BLOOD CULTURE, AFB [id number] 20:40:00 Test Item Value Reference Range Interpretation Comments CULTURE (BEAKER) (test No acid-fast bacilli code = 1095) isolated in 42 days TISSUE [id number] 13:09:00Surgical Pathology Report Case: [id number] Authorizing Provider: Remigio Lee MD Collected: 01/05/20182145 Ordering Location: [place] [address] OP Received: 01/05/20182150 Pathologist: Amy Ortega MD Specimen: Biopsy, Liver, Bx LIVER, TRANSJUGULAR NEEDLE BIOPSIES- BENIGN NON-NEOPLASTIC LIVER PARENCHYMA WITH MILD CHRONIC NONSPECIFIC PORTAL INFLAMMATION- NO TUMOR SEEN- NEGATIVE FOR SIGNIFICANT STEATOSIS- NEGATIVE FOR ADVANCED FIBROSIS OR CIRRHOSIS- MILD HEMOSIDEROSIS- SEE COMMENT Signing Pathologist Direct Phone Line: [phone] signed by Amy Ortega MD on 01/18/2018 [...] normal levels of transaminases and alkaline phosphatase ([facility] labs dated 12/16/2017), this is favored to be nonspecific. Clinical correlation is recommended.04775, 54160 Y1Noxpq lesions and fatty liverTransjugular needle biopsyReceived in [...] reticulin, iron and PAS with diastaseANG, TRANSCATHETER [id number] 08:12:00Dialysis 05/23Reason for exam:->fatty liver AND LIVER LESIONS With pressure measurementFINAL REPORT Transjugular liver biopsy, 01/05/2018. History: Fatty liver, kidney transplant workup. Modality: Fluoroscopy. Sedation: Versed 1.5 mg and fentanyl 75 mcg was given intravenously for conscious sedation. Vital signs were monitored throughout the procedure by a nurse, and remained stable. Physician intra- service time was 35 min. System Administrator: Herberth Cespedes MD. Maintenance Supervisor Mechanical: MD Carlos. Approach: Right internal jugular vein [...] needle into the right atrium. A 4 [place] micropuncture sheath was placed. A 0.035 inch J-wire was placed through the micropuncture sheath and the sheath was exchanged for a 9 [place] sheath. A 5 [place] angled tip catheter was used to select the right hepatic vein. Venogram was performed. Pressures were obtained through the catheter withmeasurements as follows: wedged hepatic - 16 mmHg, free hepatic - 13, and right atrium - 10. A longmetal reinforced 7 [place] sheath was placed through the 9 [place] sheath into the right hepatic vein.A long [...] sedation. HVPG 3 mmHg. Signed: Herberth Cespedes [facility] Verified Date/Time: 01/06/2018 08:12:10 Reading Location: [address] BASIC METABOLIC [id number] 10:46:00 Test Item Value Reference Range Interpretation [...] S NOT APPLICABLE FOR DIALYSIS PATIEN TS. [id number] 10:30:00 Test Item Value Reference Range Interpretation [...] code = 2801) ANTI-MITOCHONDRIAL AB, REFLEX TO [id number] 09:47:00 Test Item Value Reference Range Interpretation Comments SCAN RESULT (test code = 2835395) FUNGUS CULTURE, BLOOD (ISOLATOR)2017-12-27 07:40:00 Test Item Value Reference Range Interpretation Comments CULTURE (BEAKER) (test No fungus isolated code = 1095) PERITONEAL DIALYSIS EFFLUENT [id number] 08:47:00 Test Item Value Reference Range Interpretation Comments CULTURE (BEAKER) (test code No growth = 1095) GRAM STAIN RESULT (BEAKER) No WBCs (test code = 1123) GRAM STAIN RESULT (BEAKER) No organisms seen (test code = 59739) DOUBLE-STRANDED DNA (DSDNA) [id number] 08:41:00 Test Item Value Reference Range Interpretation Comments ANTI-DNA DS (BEAKER) (test code = Negative 1055) RHEUMATOID FACTOR AB, REFLEX TO [id number] 05:40:00 Test Item Value Reference Range Interpretation Comments RHEUMATOID FACTOR (BEAKER) (test Negative code = 573) BLOOD [id number] 00:00:00 Test Item Value Reference Range Interpretation Comments CULTURE (BEAKER) (test No growth in 5 days code = 1095) BLOOD [id number] 00:00:00 Test Item Value Reference Range Interpretation Comments CULTURE (BEAKER) (test No growth in 5 days code = 1095) PERITONEAL DIALYSIS EFFLUENT [id number] 11:45:00 Test Item Value Reference Range Interpretation Comments CULTURE (BEAKER) (test code No growth = 1095) GRAM STAIN RESULT (BEAKER) 1+ WBCs (test code = 1123) GRAM STAIN RESULT (BEAKER) No organisms seen (test code = 81691) POCT-GLUCOSE [id number] 11:44:00 Test Item Value Reference Range Interpretation Comments POC-GLUCOSE METER 260 mg/dL 70-110 H TESTED AT [facility] [address] ([facility]) (test code = [place] 1538) [address] ANTI-NUCLEAR ANTIBODY (CECI)2017-12-20 09:35:00 Test Item Value Reference Range Interpretation Comments ANTI-NUCLEAR ANTIBODY (CECI) ([facility]) Negative Negative (test code = 418) Test performed by IFA method.Test performed by IFA method.POCT-GLUCOSE METER 2017-12-20 07:53:00 Test Item Value Reference Range Interpretation Comments POC-GLUCOSE METER 175 mg/dL 70-110 H TESTED AT [place] [address] ([facility]) (test code = GILDA Gates [facility] 1538) [address] BASIC METABOLIC [id number] 07:04:00 Test Item Value Reference Range Interpretation [...] S NOT APPLICABLE FOR DIALYSIS PATIEN TS. [id number] 06:58:00 Test Item Value Reference Range Interpretation Comments ALPHA-1 ANTITRYPSIN (BEAKER) 179.70 mg/dL 90.00-200.00 (test code = 502) CBC W/PLT COUNT & AUTO [id number] 06:23:00 Test Item Value Reference Range Interpretation [...] PERCENT (BEAKER) (test code = 2801) POCT-GLUCOSE [id number] 23:18:00 Test Item Value Reference Range Interpretation Comments POC-GLUCOSE METER 247 mg/dL 70-110 H TESTED AT [facility] 6720 ([facility]) (test code = GILDA Gates [place] 1538) [address] HEPATITIS B SURFACE [id number] 21:39:00 Test Item Value Reference Range Interpretation Comments HEPATITIS B SURFACE ANTIGEN (2) Nonreactive Nonreactive (BEAKER) (test code = 2585) HEPATITIS B SURFACE [id number] 21:39:00 Test Item Value Reference Range Interpretation Comments HEPATITIS B SURFACE ANTIBODY 305.8 mIU/mL <8.0 H (BEAKER) (test code = 647) HEPATITIS C [id number] 21:39:00 Test Item Value Reference Range Interpretation Comments HEPATITIS C ANTIBODY (BEAKER) Nonreactive Nonreactive (test code = 367) HEPATITIS B CORE ANTIBODY, [id number] 21:39:00 Test Item Value Reference Range Interpretation Comments HEPATITIS B CORE TOTAL ANTIBODY Nonreactive Nonreactive (BEAKER) (test code = 497) HEPATITIS A ANTIBODY, [id number] 21:39:00 Test Item Value Reference Range Interpretation Comments HEPATITIS A IGG ANTIBODY (BEAKER) Nonreactive Nonreactive (test code = 2797) EBV VIRAL [id number] 19:17:00 Test Item Value Reference Range Interpretation Comments EBV VIRAL LOAD - Negative or below the NEGATIVE (BEAKER) (test linear range of the code = 1139) assay (<500 copies/mL) This assay was performed by real-time PCR for the detection of the Sedrick-Shay virus (EBV) gene EBNA-1. The test is composed of (1) DNA extraction from patient specimen, and (2) real-time PCR amplification and detection with SLYV-0-jqlnqpik primers and probes. A well-conserved region of the EBNA-1 gene is targeted, along with an internal control sequence used to confirm PCR amplification. Asymptomatic carriers and viral genetic variation, among other factors, can affect the accuracy of nucleic acid testing; therefore, results should be interpreted in light of clinical data.This test was developedand its performance characteristics determined by the [facility], Section of Molecular Pathology. It has not been cleared or approved by the U.S. Food and Drug Administration (FDA), since FDA approval is not required for clinical use of the test. Validation was doneas required by The Clinical Laboratory Improvement Amendments of 1988.POCT-GLUCOSE [id number] 18:24:00 Test Item Value Reference Range Interpretation Comments POC-GLUCOSE METER 166 mg/dL 70-110 H TESTED AT [place] [address] ([facility]) (test code = [place] 1538) [address] CT, CHEST, WITH [id number] 16:59:00Dialysis 05/23FINAL REPORT CT scan of the [...] MDReport Verified Date/Time: 12/19/2017 16:59:46 Reading Location: [facility] C013X Ortho Consult Reading Room Electronically signed by: NATALY LUDWIG M.D. on 04:59 PMPOCT-GLUCOSE [id number] 14:08:00 Test Item Value Reference Range Interpretation Comments POC-GLUCOSE METER 198 mg/dL 70-110 H TESTED AT [facility] 6720 (BEAKER) (test code = GILDA Gates [place] 1538) [address] BODY FLUID CELL COUNT WITH [id number] 13:55:00 Test Item Value Reference Range Interpretation [...] code = 2873) HIV-1 ANTIGEN WITH HIV-1/2 [id number] 13:22:00 Test Item Value Reference Range Interpretation [...] 20-55 (test code = 2590) HEMOGLOBIN AND [id number] 12:40:00 Test Item Value Reference Range Interpretation Comments HEMOGLOBIN (BEAKER) (test code = 7.2 GM/DL 11.2-15.7 L 410) HEMATOCRIT (BEAKER) (test code = 22.5 % 34.1-44.9 L 411) ANTI-NUCLEAR ANTIBODY (CECI)2017-12-19 10:57:00 Test Item Value Reference Range Interpretation Comments ANTI-NUCLEAR ANTIBODY (CECI) (BEAKER) Negative Negative (test code = 418) Test performed by IFA method.Test performed by IFA method.FLOW CYTOMETRY [id number] 09:53:00 Test Item Value Reference Range Interpretation Comments FLOW CYTOMETRY RESULT See Separate Report POINTER ([facility]) (test code = 2758) FLOW CYTOMETRY AP CASE # [id number] ([facility]) (test code = 2759) POCT-GLUCOSE [id number] 08:01:00 Test Item Value Reference Range Interpretation Comments POC-GLUCOSE METER 187 mg/dL 70-110 H TESTED AT [facility] 67[address] ([facility]) (test code = [place] 1538) [address] BASIC METABOLIC [id number] 07:41:00 Test Item Value Reference Range Interpretation [...] PATIEN TS. CBC W/PLT COUNT & AUTO [id number] 07:39:00 Test Item Value Reference Range Interpretation [...] PERCENT (BEAKER) (test code = 2801) RETICULOCYTE [id number] 07:20:00 Test Item Value Reference Range Interpretation Comments RETICULOCYTE COUNT PCT (BEAKER) (test 2.3 % 0.5-1.7 H code = 575) OCCULT BLOOD, [id number] 00:42:00 Test Item Value Reference Range Interpretation Comments FECAL OCCULT BLOOD (BEAKER) (test Negative Negative code = 618) POCT-GLUCOSE [id number] 21:17:00 Test Item Value Reference Range Interpretation Comments POC-GLUCOSE METER 237 mg/dL 70-110 H TESTED AT [facility] 67[address] ([facility]) (test code = ROSASSHERRY Gates [facility] 1538) [address] CMV PCR, [id number] 20:50:00 Test Item Value Reference Range Interpretation [...] and its performance characteristics determined by the [facility] Department, Section of Molecular Pathology. It has not been cleared or approved by the U.S. Food and Drug Administration (FDA), since FDA approval is not required for clinical use of the test. Validation was done as required by The Clinical Laboratory Improvement Amendments of 1988.CORTISOL,60 [id number] 18:35:00 Test Item Value Reference Range Interpretation [...] serum cortisollevel 60 minutes after cosyntropin administration. CORTISOL,[id number] 17:17:00 Test Item Value Reference Range Interpretation Comments CORTISOL, BASELINE (BEAKER) (test 5.2 ug/dL code = 1803) ACTH [...] serum cortisollevel 60 minutes after cosyntropin administration.POCT-GLUCOSE [id number] 17:16:00 Test Item Value Reference Range Interpretation Comments POC-GLUCOSE METER 183 mg/dL 70-110 H TESTED AT [facility] 6720 ([facility]) (test code = [place] 1538) [address] FLOW [id number] 16:58:00Flow Cytometry Report Case: [id number] Authorizing Provider: Peyton Ortiz MD Collected: 12/18/2017 0443 Ordering Location: [address] Received: 12/18/2017 0724 Service Pathologist: Lisa Tejada MD Specimen: Other PERIPHERAL BLOOD,FLOW CYTOMETRY:-NO INCREASE IN MYELOBLASTS-NO MONOTYPIC B CELL POPULATION-T CELLS WITH REDUCED CD4:CD8 RATIO (0.8)-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 Lymphocytes: Bright CD45+ lymphocytes comprise 37% of total cells. T cells show a CD4:CD8 ratio of 0.8 with normal expression of the jiang T cell markers CD2 and CD7; a subset of T cells show dimmer AQ6dsxpdswscs, a finding which may reflect a reactive [...] and their pe rformance characteristics determined by [facility]. They have not been cleared or [...] METER 226 mg/dL 70-110 H TESTED AT [place] [address] ([facility]) (test code = GILDA Gates [facility] 1538) [address] POCT-GLUCOSE [id number] 10:58:00 Test Item Value Reference Range Interpretation Comments POC-GLUCOSE METER 190 mg/dL 70-110 H TESTED AT [place] [address] ([facility]) (test code = [facility] 1538) [address] [id number] 06:19:00 Test Item Value Reference Range Interpretation Comments CORTISOL, TOTAL (BEAKER) (test code 6.5 ug/dL 3.7-19.4 = 2755) BASIC METABOLIC [id number] 05:54:00 Test Item Value Reference Range Interpretation [...] PATIEN TS. CBC W/PLT COUNT & AUTO [id number] 05:42:00 Test Item Value Reference Range Interpretation [...] PERCENT (BEAKER) (test code = 2801) CRYPTOCOCCAL [id number] 23:51:00 Test Item Value Reference Range Interpretation Comments CRYPTOCOCCAL ANTIGEN, SERUM Negative Negative, Interference ([facility]) (test code = 1828) POCT-GLUCOSE [id number] 22:27:00 Test Item Value Reference Range Interpretation Comments POC-GLUCOSE METER 178 mg/dL 70-110 H TESTED AT [place] [address] ([facility]) (test code = ROSASSHERRY Yajaira [facility] 1538) [address] [id number] 19:41:00 Test Item Value Reference Range Interpretation Comments HAPTOGLOBIN (BEAKER) (test code = 190 mg/dL 14-258 366) POCT-GLUCOSE [id number] 18:17:00 Test Item Value Reference Range Interpretation Comments POC-GLUCOSE METER 169 mg/dL 70-110 H TESTED AT [place] [address] ([facility]) (test code = GILDA Gates [facility] 1538) [address] CARCINOEMBRYONIC ANTIGEN (CEA)2017-12-17 16:36:00 Test Item Value Reference Range Interpretation Comments CARCINOEMBRYONIC ANTIGEN (BEAKER) 1.3 ng/mL 0.0-5.0 (test code = 685) [id number] 16:36:00 Test Item Value Reference Range Interpretation Comments FERRITIN (BEAKER) (test code = 361) 266 ng/mL 5-275 ALPHA FETOPROTEIN (AFP), TUMOR [id number] 16:36:00 Test Item Value Reference Range Interpretation Comments ALPHA-FETOPROTEIN (BEAKER) (test 2.7 ng/mL <10.0 code = 1094) VITAMIN B12 AND [id number] 16:36:00 Test Item Value Reference Range Interpretation Comments VITAMIN B12 (BEAKER) (test code = 261 pg/mL 213-816 774) FOLATE (BEAKER) (test code = 362) 3.2 ng/mL >=7.[address], ABDOMEN, LIVER EVALUATION, WITHOUT / WITH IV [id number] 16:10:00 Dialysis 05/23Reason for exam:->TRIPLE PHASE,FOLLOW UP [...] MDReport Verified Date/Time: 12/17/2017 16:10:53 Reading Location[facility] C[facility]Y ID Body ReadingRoom POCT-GLUCOSE [id number] 14:37:00 Test Item Value Reference Range Interpretation Comments POC-GLUCOSE METER 146 mg/dL 70-110 H TESTED AT [facility] 6720 (BEAKER) (test code = GILDA Gates [facility] 1538) [address] BASIC METABOLIC [id number] 14:19:00 Test Item Value Reference Range Interpretation [...] % 20-55 L (test code = 2590) [id number] 14:13:00 Test Item Value Reference Range Interpretation Comments PHOSPHORUS (BEAKER) (test code = 6.8 mg/dL 2.3-4.7 H 604) LACTATE DEHYDROGENASE (LDH)2017-12-17 14:13:00 Test Item Value Reference Range Interpretation Comments LACTATE DEHYDROGENASE (BEAKER) (test 162 U/L 125-220 code = 635) [id number] 14:13:00 Test Item Value Reference Range Interpretation Comments LIPASE (BEAKER) (test code = 749) 51 U/L 8-78 RETICULOCYTE [id number] 13:58:00 Test Item Value Reference Range Interpretation Comments RETICULOCYTE COUNT PCT (AKER) (test 2.2 % 0.5-1.7 H code = 575) POCT-GLUCOSE [id number] 11:37:00 Test Item Value Reference Range Interpretation Comments POC-GLUCOSE METER 169 mg/dL 70-110 H TESTED AT [place] [address] ([facility]) (test code = GILDA Gates [facility] 1538) [address] POCT-GLUCOSE [id number] 07:43:00 Test Item Value Reference Range Interpretation Comments POC-GLUCOSE METER 152 mg/dL 70-110 H TESTED AT [place] [address] ([facility]) (test code = GILDA Gates [facility] 1538) [address] CBC W/PLT COUNT & AUTO [id number] 05:47:00 Test Item Value Reference Range Interpretation [...] (BEAKER) (test code = 2801) BASIC METABOLIC [id number] 00:37:00 Test Item Value Reference Range Interpretation [...] PATIEN TS. BODY FLUID CELL COUNT WITH [id number] 23:42:00 Test Item Value Reference Range Interpretation [...] EDTA Tube (test code = 2873) POCT-GLUCOSE [id number] 21:42:00 Test Item Value Reference Range Interpretation Comments POC-GLUCOSE METER 130 mg/dL 70-110 H TESTED AT [place] [address] ([facility]) (test code = [facility] 1538) [address] POCT-GLUCOSE [id number] 19:41:00 Test Item Value Reference Range Interpretation Comments POC-GLUCOSE METER 103 mg/dL 70-110 TESTED AT [place] [address] ([facility]) (test code = [facility] 1538) [address] BASIC METABOLIC [id number] 17:51:00 Test Item Value Reference Range Interpretation [...] PATIEN TS. RAD, CHEST, 1 VIEW, NON [id number] 17:44:00Dialysis 05/23Reason for exam:- >FEVERReason for exam:->HYPOTENSIONShould this be performed at the bedside?->YesFINAL REPORT INDICATION: FEVERHYPOTENSION TECHNIQUE: Chest radiograph, singleview, portable technique. FINDINGS / IMPRESSION: No discrete consolidation that would clearly indicate pneumonia.Enlarged heart shadow.No pneumothorax or pleural effusion demonstrated.Osseous structures unremarkable. Signed: Angi Pradhan MDReport Verified Date/Time: 12/16/2017 17:44:26 Reading Location: [address] Ortho Consult Reading Room LACTIC ACID, VENOUS, WHOLE [id number] 17:42:00 Test Item Value Reference Range Interpretation Comments LACTATE BLOOD VENOUS 1.3 mmol/L 0.5-2.2 Specime n slightly (2) (BEAKER) (test hemolyzed code = 2872) Effective 09/13/2015: Units/Reference Range ChangeNew: 0.5-2.2 mmol/L Previous: 5-20 mg/dLURINALYSIS W/ REFLEX URINE [id number] 17:40:00 Test Item Value Reference Range Interpretation [...] code = 516) SOURCE(BEAKER) (test code = 0315) COMPREHENSIVE METABOLIC [id number] 16:37:00 Test Item Value Reference Range Interpretation [...] PATIEN TS. CBC W/PLT COUNT & AUTO [id number] 16:15:00 Test Item Value Reference Range Interpretation [...] (BEAKER) (test code = 2801) CMV PCR, [id number] 14:34:00 Test Item Value Reference Range Interpretation [...] and its performance characteristics determined by the [facility] Path ology Department, Section of Molecular Pathology. [...] Status post cholecystectomy.3. Mild ascites. Splenomegaly.4. Atrophic [place] kidneys and partially visualized transplant kidney.5. Overall, no significant change. Signed: Nataly Ludwig MDReport Verified Date/Time: 10/29/2017 12:18:10 Reading Location: [address] Radiology Reading Room BASI METABOLIC [id number] 10:57:00 Test Item Value Reference Range Interpretation [...] S NOT APPLICABLE FOR DIALYSIS PATIEN TS. [id number] 10:12:00 Test Item Value Reference Range Interpretation [...] (BEAKER) (test code = 2801) CT, ABDOMEN, [id number] 11:49:00Dialysis 05/23Liver protocol, triple phase CT attn: [...] ductal dilatation. ADRENALS: No adrenal nodules.KIDNEYS/URETERS: Atrophic [place] kidneys bilaterally. Transplant kidney in the right lower quadrant. No hydronephrosis or stones. Few subcentimeter hypodensities in the shosh[place]ai[place] right kidney are too small to characterize. [...] Steve Reid MDReport Verified Date/Time: 04/29/2017 11:49:17 Readi ng Location: [facility] Diagnostic Imaging Reading Room - [place] [address] AB SPECIFICITY CLASS [id number] 14:59:00 Test Item Value Reference Range Interpretation Comments DATE OF SERUM (BEAKER) 759383 (test code = 2289) SERUM # (BEAKER) (test 140735 code = 2290) AB SPECIFICITY CLASS II See Scanned Report (BEAKER) (test code = 2430) HLA [id number] 11:55:00 Test Item Value Reference Range Interpretation [...] = 2583) FLOW PRA CLASS I AND [id number] 09:43:00 Test Item Value Reference Range Interpretation Comments DATE OF SERUM (BEAKER) 020700 (test code = 2289) SERUM # (BEAKER) (test 977444 code = 2290) FLOW PRA CLASS I AND II See Scanned Report (test code = 2421) HLA TESTING (EXTERNAL)2017-03-29 14:00:00 Test Item Value Reference Range Interpretation Comments HLA TESTING (EXTERNAL) See Separate Report (test code = 3209) CT, CTA [id number] 16:00:00Dialysis 05/23Addendum BeginsREPORT STATUS:A Addendum: I agree [...] MDReport Verified Date/Time: 03/20/2017 16:00:53 Reading Location: [facility] B1 P048 Angio Body Reading RoomAddendum EndsFINAL REPORT CT angiography of the abdominal aorta and pelvic arteries, 19 March 2017 INDICATION: This is a 46 year old female with end-stage renal disease presents for pretransplant assessment. This study is performed in an attempt to avoid an invasive procedure. TECHNIQUE: Spiral acquisition before anterior intravenous contrast administration using a GE multidetector CT scanner. Images were obtained before [...] in the distal right common iliac artery. Recruiting Assistant dimensions of the left and the right external iliac arteries are 6 - 7 and 7 - 8 mm, respectively. Similarly, the associated pelvic veins are patent with no venous thrombosis identified. Recruiting Assistant dimensions of the left and the right external iliac veins are 12 and 12 mm, respectively. Patient is post renal transplantation. The transplant artery is located approximately 4.7 cm from the takeoff of the right external iliac artery. The transplant renal vein is located slightly more inferiorly. Both the transplanted artery and vein is seen to be patent with no stenosis identified. Single sh[place] left and right renal arteries are seen [...] no arterial stenosis or venous thrombosis identified. Recruiting Assistant dimensions of the left and the right external iliac arteries and veins are as described above. 2. Widely patent mesenteric arteries. Patent shosh[place] renal arteries. The transplant artery and vein are not identified connecting tothe right external iliac artery and vein that is patent with no venous thrombosis identified. 3. Other findings as described above. 4. An addendum will be dictated regarding the non-vascular findingsby the Director Clinical Information Services Radiologist. Signed: Harmeet Ventura MDReport Verified Date/Time: 03/19/2017 14:38:21 Reading Location: [place] [address] Cardiology MRI Electronically signed by: Navi CARTER 03/20/2017 04:00 PMURINE [id number] 09:43:00 Test Item Value Reference Range Interpretation Comments CULTURE (BEAKER) (test 70-79,000 col/mL skin code = 1095) adwna CYTOMEGALOVIRUS ANTIBODY, [id number] 12:49:00 Test Item Value Reference Range Interpretation Comments CYTOMEGALOVIRUS IGG ANTIBODY Positive (BEAKER) (test code = 790) CYTOMEGALOVIRUS ANTIBODY, [id number] 12:49:00 Test Item Value Reference Range Interpretation Comments CYTOMEGALOVIRUS IGM ANTIBODY Negative (BEAKER) (test code = 816) EBV-VCA ANTIBODY, [id number] 12:49:00 Test Item Value Reference Range Interpretation Comments SEDRICK-SHAY VCA IGG (BEAKER) (test Positive code = 983) EBV-VCA ANTIBODY, [id number] 12:49:00 Test Item Value Reference Range Interpretation Comments SEDRICK-SHAY VCA IGM (BEAKER) (test Negative code = 984) VARICELLA ZOSTER ANTIBODY, [id number] 12:42:00 Test Item Value Reference Range Interpretation Comments VARICELLA ZOSTER IGG (AL) (BEAKER) 6.8 Al (test code = 3197) VARICELLA ZOSTER RESULT INTERPRETATIONS: <=0.8 Al Nonreactive: Presumed non-immune to VZV 0.9-1.0 Al Equivocal >=1.1 Al Reactive: Presumed immune to [id number] 05:36:00 Test Item Value Reference Range Interpretation Comments RPR SCREEN (BEAKER) (test code = Nonreactive Nonreactive 420) URINALYSIS W/ [id number] 14:30:00 Test Item Value Reference Range Interpretation [...] 2 /LPF 1579) SOURCE(BEAKER) (test code = 2795) HEMOGLOBIN [id number] 12:35:00 Test Item Value Reference Range Interpretation Comments HEMOGLOBIN A1C (BEAKER) (test code = 5.6 % 4.3-6.1 368) HEPATITIS B SURFACE [id number] 11:22:00 Test Item Value Reference Range Interpretation Comments HEPATITIS B SURFACE ANTIGEN (2) Nonreactive Nonreactive (BEAKER) (test code = 2585) HEPATITIS B SURFACE [id number] 11:22:00 Test Item Value Reference Range Interpretation Comments HEPATITIS B SURFACE ANTIBODY 164.7 mIU/mL <8.0 H (BEAKER) (test code = 647) HEPATITIS B CORE ANTIBODY, [id number] 11:22:00 Test Item Value Reference Range Interpretation Comments HEPATITIS B CORE IGM ANTIBODY Nonreactive Nonreactive (BEAKER) (test code = 645) HEPATITIS C [id number] 11:22:00 Test Item Value Reference Range Interpretation Comments HEPATITIS C ANTIBODY (BEAKER) Nonreactive Nonreactive (test code = 367) HIV-1 ANTIGEN WITH HIV-1/2 [id number] 11:22:00 Test Item Value Reference Range Interpretation Comments HIV-1 ANTIGEN WITH HIV 1\\T\\2 Nonreactive Nonreactive ANTIBODY (2) (BEAKER) (test code = 2586) PTH, [id number] 11:07:00 Test Item Value Reference Range Interpretation Comments PARATHYROID HORMONE INTACT 489.0 pg/mL 8.5-72.5 H (BEAKER) (test code = 577) URIC [id number] 11:01:00 Test Item Value Reference Range Interpretation Comments URIC ACID (BEAKER) (test code = 8.9 mg/dL 2.6-7.2 H 773) [id number] 11:01:00 Test Item Value Reference Range Interpretation Comments PHOSPHORUS (BEAKER) (test code = 6.7 mg/dL 2.3-4.7 H 604) LIPID [id number] 11:01:00 Test Item Value Reference Range Interpretation [...] 280 U/L 125-220 H code = 635) [id number] 10:25:00 Test Item Value Reference Range Interpretation [...] is 2.5-3.5 for patients with mechanical heart valves.ASOB-[id number] 13:48:00 Test Item Value Reference Range Interpretation Comments POC-HEMATOCRIT 29 % 36-45 L TESTED AT [facility] 2457 (BEAKER) (test code = [facility] [place] 1857) [address] [id number] 13:48:00 Test Item Value Reference Range Interpretation Comments POC-HEMOGLOBIN 9.9 g/dL 12.0-15.0 L TESTED AT [facility] 2457 (BEAKER) (test code [facility] = 1856) [place] [address] HEPATITIS B SURFACE [id number] 16:44:00 Test Item Value Reference Range Interpretation Comments HEPATITIS B SURFACE ANTIGEN (2) Nonreactive Nonreactive (BEAKER) (test code = 2585) HEPATITIS B SURFACE [id number] 16:44:00 Test Item Value Reference Range Interpretation Comments HEPATITIS B SURFACE ANTIBODY 151.8 mIU/mL <8.0 H (BEAKER) (test code = 647) HEPATITIS C [id number] 16:44:00 Test Item Value Reference Range Interpretation Comments HEPATITIS C ANTIBODY (BEAKER) Nonreactive Nonreactive (test code = 367) [id number] 15:28:00 Test Item Value Reference Range Interpretation Comments FERRITIN (BEAKER) (test code = 361) 497 ng/mL 5-275 H RAD, CHEST, 2 [id number] 15:14:00Dialysis 05/23Reason for Exam:->CHRONIC KIDNEY DISEASE, STAGE 5 [N18.5]FINAL REPORT Chest two views compared to June 29, 2015 Discussion: Heart,lungs, bones, soft tissues unremarkable. No effusion or pneumothorax. Signed: Sheba Miller V erified Date/Time: 02/19/2017 15:14:15 Reading Location: [address] Consult Reading Room BASI METABOLIC [id number] 14:10:00 Test Item Value Reference Range Interpretation [...] DIALYSIS PATIEN TS. HEPATITIS B CORE ANTIBODY, [id number] 14:05:00 Test Item Value Reference Range Interpretation Comments HEPATITIS B CORE TOTAL ANTIBODY Nonreactive Nonreactive (BEAKER) (test code = 497) IRON, [id number] 13:47:00 Test Item Value Reference Range Interpretation [...] % 20-55 (test code = 2590) PTH, [id number] 13:17:00 Test Item Value Reference Range Interpretation Comments PARATHYROID HORMONE INTACT 334.6 pg/mL 8.5-72.5 H (BEAKER) (test code = 577) [id number] 13:13:00 Test Item Value Reference Range Interpretation Comments PHOSPHORUS (BEAKER) (test code = 4.5 mg/dL 2.3-4.7 604) LIPID [id number] 13:13:00 Test Item Value Reference Range Interpretation [...] 130-159 High 160-189 Very High >=190HEPATIC FUNCTION [id number] 13:13:00 Test Item Value Reference Range Interpretation [...] (test code = 16 U/L 6-55 347) [id number] 13:08:00 Test Item Value Reference Range Interpretation [...] 0-0 (BEAKER) (test code = 413) POTASSIUM-STAT [id number] 17:19:00 Test Item Value Reference Range Interpretation Comments POTASSIUM (BEAKER) (test code = 6.2 meq/L 3.6-5.5 HH 379) GLUCOSE-STAT [id number] 17:16:00 Test Item Value Reference Range Interpretation Comments GLUCOSE RANDOM (BEAKER) (test code 223 mg/dL 70-110 H = 652) [id number] 15:37:00 Test Item Value Reference Range Interpretation Comments POTASSIUM (BEAKER) (test code = 6.5 meq/L 3.5-5.1 HH 379) [id number] 15:28:00 Test Item Value Reference Range Interpretation Comments GLUCOSE RANDOM (BEAKER) (test code 209 mg/dL 70-105 H = 652) [id number] 13:23:00 Test Item Value Reference Range Interpretation Comments POTASSIUM (BEAKER) (test code = 7.0 meq/L 3.5-5.1 HH 379) POTASSIUM-STAT [id number] 12:51:00 Test Item Value Reference Range Interpretation Comments POTASSIUM (BEAKER) (test code = 7.6 meq/L 3.6-5.5 HH 379) GLUCOSE-STAT [id number] 12:44:00 Test Item Value Reference Range Interpretation Comments GLUCOSE RANDOM (BEAKER) (test code 253 mg/dL 70-110 H = 652) GLUCOSE-STAT [id number] 10:30:00 Test Item Value Reference Range Interpretation Comments GLUCOSE RANDOM (BEAKER) (test code 213 mg/dL 70-110 H = 652) HGB/HCT (H&H) - STAT [id number] 10:30:00 Test Item Value Reference Range Interpretation Comments HEMOGLOBIN (BEAKER) (test code = 8.5 g/dL 12.0-15.0 L 410) HEMATOCRIT (BEAKER) (test code = 25.0 % 36.0-45.0 L 411) POTASSIUM-STAT [id number] 10:30:00 Test Item Value Reference Range Interpretation Comments POTASSIUM (BEAKER) (test code = 6.3 meq/L 3.6-5.5 HH 379) HGB/HCT (H&H) - STAT [id number] 06:24:00 Test Item Value Reference Range Interpretation Comments HEMOGLOBIN (BEAKER) (test code = 8.7 g/dL 12.0-15.0 L 410) HEMATOCRIT (BEAKER) (test code = 26.0 % 36.0-45.0 L 411) GLUCOSE-STAT [id number] 06:22:00 Test Item Value Reference Range Interpretation Comments GLUCOSE RANDOM (BEAKER) (test code 108 mg/dL 70-110 = 652) POTASSIUM-STAT [id number] 06:22:00 Test Item Value Reference Range Interpretation Comments POTASSIUM (BEAKER) (test code = 4.7 meq/L 3.6-5.5 379) [id number] 15:10:00 Test Item Value Reference Range Interpretation [...] % 20-55 L (test code = 2590) [id number] 10:56:00 Test Item Value Reference Range Interpretation Comments POC-HEMATOCRIT 29 % 36-[address]) (test code = [facility] [place] 1857) [address] [id number] 10:56:00 Test Item Value Reference Range Interpretation Comments POC-HEMOGLOBIN 9.9 g/dL 12.0-15.0 L TESTED AT [facility] 2457 (BEJORDEN) (test code [facility] = 1856) [place] [address] TISSUE [id number] 13:28:00Surgical Pathology Report Case: [id number] Authorizing Provider: Anjana Booker MD Collected: 11/18/2016 1200 Ordering Location: [facility] Radiology Main Received: 11/18/2016 1043 Pathologist: Amy Oretga MD Specimen: Kidney, Right KIDNEY, RIGHT,NEEDLE BIOPSIES- [...] is rendered based on the HE stained company pilot sections of the tissue submitted for immunofluorescence, and from the company pilot sections for electron microscopy. 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 There is marked interstitial fibrosis and tubular atrophy with chronic lymphoplasmacytic inflammation involving fibrotic foci. Indirect ygrqnfenlubvanruqwZ4m is negative in peritubular capillaries.Direct immunofluorescence Albumin: diffuse, glomerular and tubular basement membrane, weak. IgA: negative inglomeruli IgG: negative in glomeruli. IgM: focal, segmental, mesangial entrapment in sclerotic glomeruli, 2+. C3: Sclerotic glomeruli with 3+ staining, C1q: weak/equivocal staining of the sclerotic glomeruli. Fibrinogen: diffuse, glomerular and tubulointerstitial, weak. Enola: negative glomeruli Lambda: negative glomeruliAll polyclonal antibodies [...] S NOT APPLICABLE FOR DIALYSIS PATIEN TS. [id number] 07:27:00 Test Item Value Reference Range Interpretation [...] L 0.00-0.20 (test code = 417) 0.00URINE [id number] 13:34:00 Test Item Value Reference Range Interpretation Comments CULTURE (BEAKER) A 50-59,000 c ol/mL (test code = 1095) Beta-hemo lytic streptococcus g roup B, by serological alyssa upingIf this patient is preg nant, please refer to ACOG g uikobe for appropriate screening and management of colonized women. >100,000 col/mL skin floraPROTEIN, RANDOM [id number] 17:10:00 Test Item Value Reference Range Interpretation Comments PROTEIN, URINE (BEAKER) (test code 670 mg/dL 0-14 H = 1569) CREATININE, RANDOM [id number] 16:40:00 Test Item Value Reference Range Interpretation Comments CREATININE URINE (BEAKER) (test 97.6 mg/dL code = 375) Reference Range: No NormalsPROTEIN, RANDOM [id number] 14:56:00 Test Item Value Reference Range Interpretation Comments PROTEIN, URINE (BEAKER) (test code 507 mg/dL 0-14 H = 1569) CREATININE, RANDOM [id number] 14:41:00 Test Item Value Reference Range Interpretation Comments CREATININE URINE (BEAKER) (test 99.6 mg/dL code = 375) Reference Range: No NormalsTACROLIMUS [id number] 12:30:00 Test Item Value Reference Range Interpretation Comments TACROLIMUS BLOOD (BEAKER) (test 4.8 ng/mL 10.0-20.0 L code = 657) COMPREHENSIVE METABOLIC [id number] 08:57:00 Test Item Value Reference Range Interpretation [...] Specimen slightly lipemicCBC W/PLT COUNT & AUTO [id number] 08:37:00 Test Item Value Reference Range Interpretation [...] 0.00-0.20 (test code = 417) 0.00CMV PCR, [id number] 14:33:00 Test Item Value Reference Range Interpretation [...] and its performance characteristics determined by the [facility], Section of Molecular Pathology. [...] code = hemoly zed 635) COMPREHENSIVE METABOLIC [id number] 14:20:00 Test Item Value Reference Range Interpretation [...] APPLICABLE FOR DIALYSIS PATIEN TS. Specimen slightly [id number] 14:18:00 Test Item Value Reference Range Interpretation Comments PHOSPHORUS (BEAKER) 4.1 mg/dL 2.3-4.7 Specimen slightly (test code = 604) hemolyzed URINALYSIS W/ REFLEX URINE [id number] 14:02:00 Test Item Value Reference Range Interpretation [...] = 516) SOURCE(BEAKER) (test code = 2795) CBC W/PLT COUNT & AUTO [id number] 13:55:00 Test Item Value Reference Range Interpretation [...] 0.00-0.20 (test code = 417) 0.00CMV PCR, [id number] 14:35:00 Test Item Value Reference Range Interpretation [...] and its performance characteristics determined by the [facility], Section of Molecular Pathology. [...] 10.0-20.0 L code = 657) COMPREHENSIVE METABOLIC [id number] 11:38:00 Test Item Value Reference Range Interpretation [...] S NOT APPLICABLE FOR DIALYSIS PATIEN TS. [id number] 11:29:00 Test Item Value Reference Range Interpretation Comments PHOSPHORUS (BEAKER) (test code = 4.3 mg/dL 2.3-4.7 604) LACTATE DEHYDROGENASE (LDH)2016-09-02 11:29:00 Test Item Value Reference Range Interpretation Comments LACTATE DEHYDROGENASE (BEAKER) (test 222 U/L 125-220 H code = 635) CBC W/PLT COUNT & AUTO [id number] 11:17:00 Test Item Value Reference Range Interpretation [...] code = 417) 0.00URINALYSIS W/ REFLEX URINE [id number] 11:14:00 Test Item Value Reference Range Interpretation [...] 2 /LPF 514) SOURCE(BEAKER) (test code = 2795) TACROLIMUS [id number] 09:25:00 Test Item Value Reference Range Interpretation Comments TACROLIMUS BLOOD (BEAKER) (test 6.7 ng/mL 10.0-20.0 L code = 657) PROTEIN, RANDOM [id number] 23:09:00 Test Item Value Reference Range Interpretation Comments PROTEIN, URINE (BEAKER) (test code = > mg/dL 0-14 H 1569) BASIC METABOLIC [id number] 23:09:00 Test Item Value Reference Range Interpretation [...] APPLICABLE FOR DIALYSIS PATIEN TS. CREATININE, RANDOM [id number] 22:59:00 Test Item Value Reference Range Interpretation Comments CREATININE URINE (BEAKER) (test 68.3 mg/dL code = 375) Reference Range: No NormalsURINALYSIS W/ [id number] 22:56:00 Test Item Value Reference Range Interpretation [...] code = 516) SOURCE(BEAKER) (test code = 3360) CBC W/PLT COUNT & AUTO [id number] 22:45:00 Test Item Value Reference Range Interpretation [...] (test code = 417) OVA AND PARASITE [id number] 15:39:00 Test Item Value Reference Range Interpretation [...] the presence of a parasitic infection.Performing Laboratory: [facility] [employer] [facility] [address] [facility] [id number] Director: Sanjuana De Paz MD, FCAPTACROLIMUS [id number] 10:34:00 Test Item Value Reference Range Interpretation Comments TACROLIMUS BLOOD (BEAKER) (test 8.3 ng/mL 10.0-20.0 L code = 657) POCT-GLUCOSE [id number] 09:07:00 Test Item Value Reference Range Interpretation Comments POC-GLUCOSE METER 108 mg/dL 70-110 TESTED AT [facility] 6720 (BEAKER) (test code = [place] 1538) [address] CBC W/PLT COUNT & AUTO [id number] 06:44:00 Test Item Value Reference Range Interpretation [...] K/ L 0.00-0.20 (test code = 417) [id number] 06:26:00 Test Item Value Reference Range Interpretation Comments PHOSPHORUS (BEAKER) (test code = 4.9 mg/dL 2.3-4.7 H 604) [id number] 06:26:00 Test Item Value Reference Range Interpretation Comments MAGNESIUM (BEAKER) (test code = 1.9 mg/dL 1.6-2.6 627) BASIC METABOLIC [id number] 06:26:00 Test Item Value Reference Range Interpretation Comments SODIUM (BEAKER) 140 meq/L 136-145 (test code = 381) POTASSIUM (BEAKER) 5.0 meq/L 3.5-5.1 (test code = 379) CHLORIDE (BEAKER) 111 meq/L 98-107 H (test code = 382) CO2 (BEAKER) (test 19 meq/L 22-29 L code = 355) BLOOD UREA NITROGEN 31 mg/dL 7-21 H (BEAKER) (test code = 354) CREATININE (BEAKER) 2.62 mg/dL 0.57-1.25 H (test code = 358) GLUCOSE RANDOM 91 mg/dL 70-105 (BEAKER) (test code = 652) CALCIUM (BEAKER) 8.4 mg/dL 8.4-10.2 (test code = 697) EGFR (BEAKER) (test 20 mL/min/1.73 ESTIMA BRII GFR IS code = 1092) sq m NOT ACCURATE CREATININE CLEARANCE IN PREDICTING GLOMERULAR FILTRATION RATE . ESTIMATED GFR I S NOT APPLICABLE FOR DIALYSIS PATIEN TS. POCT-GLUCOSE [id number] 21:25:00 Test Item Value Reference Range Interpretation Comments POC-GLUCOSE METER 140 mg/dL 70-110 H TESTED AT [facility] 6720 ([facility]) (test code = [place] 1538) [address] POCT-GLUCOSE [id number] 17:13:00 Test Item Value Reference Range Interpretation Comments POC-GLUCOSE METER 213 mg/dL 70-110 H TESTED AT [facility] 6720 ([facility]) (test code = [place] 1538) [address] CMV PCR, [id number] 13:48:00 Test Item Value Reference Range Interpretation Comments CMV VIRAL LOAD - POSITIVE [address] copies/ml ([facility]) (test code = 1557) Cytomegalovirus (CMV) infection [...] and its performance characteristics determined by the [facility], Section of Molecular Pathology. [...] METER 169 mg/dL 70-110 H TESTED AT [facility] 6720 (BEAKER) (test code = [place] 1531) [address] CBC W/PLT COUNT & AUTO [id number] 10:50:00 Test Item Value Reference Range Interpretation [...] (BEAKER) (test code = Normal 762) TACROLIMUS [id number] 10:09:00 Test Item Value Reference Range Interpretation Comments TACROLIMUS BLOOD (BEAKER) (test 8.8 ng/mL 10.0-20.0 L code = 657) POCT-GLUCOSE [id number] 08:03:00 Test Item Value Reference Range Interpretation Comments POC-GLUCOSE METER 114 mg/dL 70-110 H TESTED AT [facility] 6720 (BEAKER) (test code = [place] [facility] 1538) [address] BASIC METABOLIC [id number] 06:32:00 Test Item Value Reference Range Interpretation [...] S NOT APPLICABLE FOR DIALYSIS PATIEN TS. [id number] 06:25:00 Test Item Value Reference Range Interpretation Comments PHOSPHORUS (BEAKER) (test code = 3.9 mg/dL 2.3-4.7 604) [id number] 06:25:00 Test Item Value Reference Range Interpretation Comments MAGNESIUM (BEAKER) (test code = 1.9 mg/dL 1.6-2.6 627) POCT-GLUCOSE [id number] 21:15:00 Test Item Value Reference Range Interpretation Comments POC-GLUCOSE METER 152 mg/dL 70-110 H TESTED AT [place] [address] (BEAKER) (test code = [facility] 1538) [address] POCT-GLUCOSE [id number] 17:06:00 Test Item Value Reference Range Interpretation Comments POC-GLUCOSE METER 226 mg/dL 70-110 H TESTED AT [place] [address] ([facility]) (test code = [facility] 1538) [address] POCT-GLUCOSE [id number] 12:49:00 Test Item Value Reference Range Interpretation Comments POC-GLUCOSE METER 394 mg/dL 70-110 H TESTED AT [place] [address] (BEAKER) (test code = [facility] 1538) [address] POCT-GLUCOSE [id number] 08:04:00 Test Item Value Reference Range Interpretation Comments POC-GLUCOSE METER 122 mg/dL 70-110 H TESTED AT [place] [address] ([facility]) (test code = [facility] 1538) [address] BASIC METABOLIC [id number] 06:53:00 Test Item Value Reference Range Interpretation [...] S NOT APPLICABLE FOR DIALYSIS PATIEN TS. [id number] 06:52:00 Test Item Value Reference Range Interpretation Comments PHOSPHORUS (BEAKER) (test code = 3.6 mg/dL 2.3-4.7 604) [id number] 06:52:00 Test Item Value Reference Range Interpretation Comments MAGNESIUM (BEAKER) (test code = 1.7 mg/dL 1.6-2.6 627) CBC W/PLT COUNT & AUTO [id number] 06:45:00 Test Item Value Reference Range Interpretation [...] L 0.00-0.20 (test code = 417) 0.00POCT-GLUCOSE [id number] 21:55:00 Test Item Value Reference Range Interpretation Comments POC-GLUCOSE METER 144 mg/dL 70-110 H TESTED AT [place] [address] ([facility]) (test code = [facility] 1538) [address] POCT-GLUCOSE [id number] 18:14:00 Test Item Value Reference Range Interpretation Comments POC-GLUCOSE METER 166 mg/dL 70-110 H TESTED AT [place] [address] ([facility]) (test code = [facility] 1538) [address] POCT-GLUCOSE [id number] 12:59:00 Test Item Value Reference Range Interpretation Comments POC-GLUCOSE METER 168 mg/dL 70-110 H TESTED AT [place] [address] ([facility]) (test code = [facility] 1538) [address] POCT-GLUCOSE [id number] 09:21:00 Test Item Value Reference Range Interpretation Comments POC-GLUCOSE METER 94 mg/dL 70-110 TESTED AT [place] [address] ([facility]) (test code = [facility] [address] 1538) CBC W/PLT COUNT & AUTO [id number] 07:28:00 Test Item Value Reference Range Interpretation Comments WHITE BLOOD CELL COUNT ([facility] [facility] 4.3 K/ L 4.0-10.0 (test code = 775) RED BLOOD CELL COUNT ([facility]) 3.30 M/ L 4.00-5.00 L (test code [...] L 0.00-0.20 (test code = 417) 0.00POCT-GLUCOSE [id number] 07:01:00 Test Item Value Reference Range Interpretation Comments POC-GLUCOSE METER 126 mg/dL 70-110 H TESTED AT [facility] 6720 ([facility]) (test code = [place] 1538) [address] BASIC METABOLIC [id number] 06:16:00 Test Item Value Reference Range Interpretation [...] S NOT APPLICABLE FOR DIALYSIS PATIEN TS. [id number] 06:13:00 Test Item Value Reference Range Interpretation Comments PHOSPHORUS (BEAKER) (test code = 3.2 mg/dL 2.3-4.7 604) [id number] 06:13:00 Test Item Value Reference Range Interpretation Comments MAGNESIUM (BEAKER) (test code = 1.9 mg/dL 1.6-2.6 627) POCT-GLUCOSE [id number] 04:26:00 Test Item Value Reference Range Interpretation Comments POC-GLUCOSE METER 73 mg/dL 70-110 TESTED AT [facility] 67[address] ([facility]) (test [facility] = [facility] [address] 1538) POCT-GLUCOSE [id number] 02:34:00 Test Item Value Reference Range Interpretation Comments POC-GLUCOSE METER 84 mg/dL 70-110 TESTED AT [place] [address] ([facility]) (test code = [facility] Yajaira [facility] [address] 1538) POCT-GLUCOSE [id number] 21:03:00 Test Item Value Reference Range Interpretation Comments POC-GLUCOSE METER 228 mg/dL 70-110 H TESTED AT [place] [address] ([facility]) (test code = [place] 1538) [address] POCT-GLUCOSE [id number] 18:20:00 Test Item Value Reference Range Interpretation Comments POC-GLUCOSE METER 184 mg/dL 70-110 H TESTED AT [facility] 6720 ([facility]) (test code = [place] 1538) [address] CMV PCR, [id number] 14:10:00 Test Item Value Reference Range Interpretation Comments CMV VIRAL LOAD - POSITIVE 800663 copies/ml (ESTRE[facility]) (test code = 1557) Cytomegalovirus (CMV) infection [...] and its performance characteristics determined by the [facility], Section of Molecular Pathology. It has not been cleared or approved by the U.S. Food and Drug Administration (FDA), since FDA approval is not required for clinical use of the test. Validation was done as required by The Clinical Laboratory Improvement Amendments of 1988.TACROLIMUS LEVEL 2016-08-23 10:10:00 Test Item Value Reference Range Interpretation Comments TACROLIMUS BLOOD ([facility]RE[facility]) (test 9.7 ng/mL 10.0-20.0 L code = 657) 30 minutes prior to AM doseCBC W/PLT COUNT & AUTO [id number] 08:49:00 Test Item Value Reference Range Interpretation Comments WHITE BLOOD CELL COUNT ([facility]) 5.3 K/ L 4.0-10.0 (test code = [...] (test 1+ few code = 481) POCT-GLUCOSE [id number] 07:51:00 Test Item Value Reference Range Interpretation Comments POC-GLUCOSE METER 181 mg/dL 70-110 H TESTED AT [facility] 6720 (BEAKER) (test code = GILDA Gates [facility] 1538) [address] BASIC METABOLIC [id number] 06:17:00 Test Item Value Reference Range Interpretation [...] S NOT APPLICABLE FOR DIALYSIS PATIEN TS. [id number] 06:09:00 Test Item Value Reference Range Interpretation Comments MAGNESIUM (BEAKER) 1.9 mg/dL 1.6-2.6 Specimen slightly (test code = 627) hemolyzed [id number] 06:09:00 Test Item Value Reference Range Interpretation Comments PHOSPHORUS (BEAKER) 2.7 mg/dL 2.3-4.7 Specimen slightly (test code = 604) hemolyzed POCT-GLUCOSE [id number] 21:42:00 Test Item Value Reference Range Interpretation Comments POC-GLUCOSE METER 209 mg/dL 70-110 H TESTED AT [facility] 6720 (BEAKER) (test code = [facility] [place] 1538) [address] POCT-GLUCOSE [id number] 17:10:00 Test Item Value Reference Range Interpretation Comments POC-GLUCOSE METER 233 mg/dL 70-110 H TESTED AT [facility] 6720 ([facility]) (test code = [facility] [place] 1538) [address] POCT-GLUCOSE [id number] 12:54:00 Test Item Value Reference Range Interpretation Comments POC-GLUCOSE METER 174 mg/dL 70-110 H TESTED AT [facility] 6720 ([facility]) (test code = [facility] [place] 1538) [address] TACROLIMUS [id number] 11:07:00 Test Item Value Reference Range Interpretation Comments TACROLIMUS BLOOD (BEAKER) (test 12.2 ng/mL 10.0-20.0 code = 657) 30 minutes prior to AM doseBASIC METABOLIC [id number] 08:41:00 Test Item Value Reference Range Interpretation [...] PATIEN TS. CBC W/PLT COUNT & AUTO [id number] 08:25:00 Test Item Value Reference Range Interpretation [...] K/ L 0.00-0.20 (test code = 417) [id number] 08:01:00 Test Item Value Reference Range Interpretation Comments MAGNESIUM (BEAKER) 1.5 mg/dL 1.6-2.6 L Specimen slightly (test code = 627) hemolyzed [id number] 08:01:00 Test Item Value Reference Range Interpretation Comments PHOSPHORUS (BEAKER) 2.6 mg/dL 2.3-4.7 Specimen slightly (test code = 604) hemolyzed BLOOD [id number] 06:00:00 Test Item Value Reference Range Interpretation Comments CULTURE (BEAKER) (test No growth in 5 days code = 1095) BLOOD [id number] 06:00:00 Test Item Value Reference Range Interpretation Comments CULTURE (BEAKER) (test No growth in 5 days code = 1095) POCT-GLUCOSE [id number] 21:35:00 Test Item Value Reference Range Interpretation Comments POC-GLUCOSE METER 171 mg/dL 70-110 H TESTED AT [facility] 6720 (BEAKER) (test code = [place] 1538) [address] POCT-GLUCOSE [id number] 17:27:00 Test Item Value Reference Range Interpretation Comments POC-GLUCOSE METER 218 mg/dL 70-110 H TESTED AT [facility] 6720 (BEAKER) (test code = GILDA Gates [place] 1538) [address] POCT-GLUCOSE [id number] 14:38:00 Test Item Value Reference Range Interpretation Comments POC-GLUCOSE METER 168 mg/dL 70-110 H TESTED AT [facility] 6720 (BEAKER) (test code = GILDA Gates [place] 1538) [address] CBC W/PLT COUNT & AUTO [id number] 14:16:00 Test Item Value Reference Range Interpretation [...] (BEAKER) (test code = Normal 762) COCCIDIAN [id number] 12:50:00 Test Item Value Reference Range Interpretation Comments CRYPTOSPORIDIA RESULT No Cryptosporidia No Cryptosporidia (BEAKER) (test code = seen seen 1420) CYCLOSPORA RESULT No Cyclospora seen No Cyclospora seen (BEAKER) (test code = 2174) ISOSPORA RESULT No Isospora species No Isospora mireya (BEAKER) (test code = oocysts seen oocysts seen, No 2175) Isospora hominis oocysts POCT-GLUCOSE [id number] 09:16:00 Test Item Value Reference Range Interpretation Comments POC-GLUCOSE METER 86 mg/dL 70-110 TESTED AT [facility] 6720 (BEAKER) (test code = ROSAS[facility] Yajaira [facility] [address] 1538) TACROLIMUS [id number] 09:06:00 Test Item Value Reference Range Interpretation Comments TACROLIMUS BLOOD (BEAKER) (test 8.6 ng/mL 10.0-20.0 L code = 657) 30 minutes prior to AM doseBASIC METABOLIC [id number] 07:24:00 Test Item Value Reference Range Interpretation [...] S NOT APPLICABLE FOR DIALYSIS PATIEN TS. [id number] 07:20:00 Test Item Value Reference Range Interpretation Comments PHOSPHORUS ([facility]A) (test code = 2.0 mg/dL 2.3-4.7 L 604) [id number] 07:20:00 Test Item Value Reference Range Interpretation Comments MAGNESIUM ([facility]RE[facility]A) (test code = 1.6 mg/dL 1.6-2.6 627) POCT-GLUCOSE [id number] 21:22:00 Test Item Value Reference Range Interpretation Comments POC-GLUCOSE METER 99 mg/dL 70-110 TESTED AT [place] [address] ([facility]) (test code = [facility] [address] 1538) POCT-GLUCOSE [id number] 17:30:00 Test Item Value Reference Range Interpretation Comments POC-GLUCOSE METER 240 mg/dL 70-110 H TESTED AT [place] [address] ([facility]) (test code = [facility] 1538) [address] CMV PCR, [id number] 13:55:00 Test Item Value Reference Range Interpretation Comments CMV VIRAL LOAD - POSITIVE > copies/ml (ESTRELLA) (test code = 1557) Cytomegalovirus (CMV) infection [...] and its performance characteristics determined by the [facility], Section of Molecular Pathology. [...] METER 147 mg/dL 70-110 H TESTED AT [facility] 6720 ([facility]) (test code = GILDA Gates [facility] 1538) [address] TACROLIMUS [id number] 10:24:00 Test Item Value Reference Range Interpretation Comments TACROLIMUS BLOOD (BEAKER) (test 7.7 ng/mL 10.0-20.0 L code = 657) 30 minutes prior to AM dosePOCT-GLUCOSE [id number] 08:18:00 Test Item Value Reference Range Interpretation Comments POC-GLUCOSE METER 88 mg/dL 70-110 TESTED AT [place] [address] ([facility]) (test code = GILDA Gates [facility] [address] 1538) BASIC METABOLIC [id number] 07:15:00 Test Item Value Reference Range Interpretation [...] S NOT APPLICABLE FOR DIALYSIS PATIEN TS. [id number] 07:13:00 Test Item Value Reference Range Interpretation Comments PHOSPHORUS (BEAKER) (test code = 2.0 mg/dL 2.3-4.7 L 604) [id number] 07:13:00 Test Item Value Reference Range Interpretation Comments MAGNESIUM (BEAKER) (test code = 1.9 mg/dL 1.6-2.6 627) CBC W/PLT COUNT & AUTO [id number] 06:58:00 Test Item Value Reference Range Interpretation [...] ABSOLUTE COUNT 0.76 K/ L 1.48-4.50 L (AKER) (test code = 414) MONOCYTES ABSOLUTE COUNT (AKER) 0.44 K/ L 0.00-1.30 (test code = 415) EOSINOPHILS ABSOLUTE COUNT 0.06 K/ L 0.00-0.50 ([facility]) (test code = 416) BASOPHILS ABSOLUTE COUNT ([facility]) 0.00 K/ L 0.00-0.20 (test code = 417) 0.00POCT-GLUCOSE [id number] 21:04:00 Test Item Value Reference Range Interpretation Comments POC-GLUCOSE METER 106 mg/dL 70-110 TESTED AT [facility] 67 ([facility]) (test code = GILDA Gates [facility] 1538) [address] POCT-GLUCOSE [id number] 18:09:00 Test Item Value Reference Range Interpretation Comments POC-GLUCOSE METER 169 mg/dL 70-110 H TESTED AT [facility] 67 ([facility]) (test code = [facility] Yajaira [facility] 1538) [address] CMV PCR, [id number] 14:20:00 Test Item Value Reference Range Interpretation Comments CMV VIRAL LOAD - POSITIVE > copies/ml ([facility]) (test code = 1557) Cytomegalovirus (CMV) infection [...] and its performance characteristics determined by the [facility], Section of Molecular Pathology. It has not been cleared or approved by the U.S. Food and Drug Administration (FDA), since FDA approval is not required for clinical use of the test. Validation was done as required by The Clinical Laboratory Improvement Amendments of 1988.CREATININE, RANDOM URINE 2016-08-19 14:12:00 Test Item Value Reference Range Interpretation Comments CREATININE URINE ([facility]) (test 64.4 mg/dL code = 375) Reference Range: No NormalsPROTEIN, RANDOM [id number] 14:12:00 Test Item Value Reference Range Interpretation Comments PROTEIN, URINE (AKER) (test code 183 mg/dL 0-14 H = 1569) POCT-GLUCOSE [id number] 13:10:00 Test Item Value Reference Range Interpretation Comments POC-GLUCOSE METER 116 mg/dL 70-110 H TESTED AT [facility] 6720 ([facility]) (test code = GILDA Gates [facility] 1538) [address] BK VIRUS PCR, [id number] 13:08:00 Test Item Value Reference Range Interpretation [...] the presumptive diagnosis of polyomavirus-associated nephropathy (Transplantation 2005;[id number]).A BK Virus load greater than 5,000-10,000 copies/mL [...] and its performance characteristics determined by the [facility], Section of Molecular Pathology. It has not been cleared or approved by the U.S. Food and Drug Administration (FDA). Since FDA approval is not required for clinicaluse of the test, validation was done as required by the Clinical Laboratory Improvement Amendments of 1988.STOOL CULTURE + SHIGA [id number] 12:43:00 Test Item Value Reference Range Interpretation Comments CULTURE (BEAKER) No Salmonella, Shigella (test code = 1095) or Campylobacter isolated Unable to test for Shiga Toxin 1 due to insufficient growth of specimen.Unable to test for Shiga Toxin 2 due to insufficient growth of specimen.POCT-GLUCOSE [id number] 08:25:00 Test Item Value Reference Range Interpretation Comments POC-GLUCOSE METER 67 mg/dL 70-110 L Notified R N MD/TESTED AT (BEAKER) (test code = [facility] 67[address] [place] 1538) [facility] 7[address] 0 CBC W/PLT COUNT & AUTO [id number] 07:18:00 Test Item Value Reference Range Interpretation [...] K/ L 0.00-0.20 (test code = 417) 0.00BASIC METABOLIC [id number] 07:15:00 Test Item Value Reference Range Interpretation [...] S NOT APPLICABLE FOR DIALYSIS PATIEN TS. [id number] 07:14:00 Test Item Value Reference Range Interpretation Comments PHOSPHORUS (BEAKER) (test code = 3.0 mg/dL 2.3-4.7 604) [id number] 07:14:00 Test Item Value Reference Range Interpretation Comments MAGNESIUM (BEAKER) (test code = 1.9 mg/dL 1.6-2.6 627) POCT-GLUCOSE [id number] 20:00:00 Test Item Value Reference Range Interpretation Comments POC-GLUCOSE METER 110 mg/dL 70-110 TESTED AT [facility] 6720 ([facility]) (test code = GILDA Gates [place] 1538) [address] POCT-GLUCOSE [id number] 17:28:00 Test Item Value Reference Range Interpretation Comments POC-GLUCOSE METER 94 mg/dL 70-110 TESTED AT [facility] 6720 ([facility]) (test code = GILDA Gates [facility] [address] 1538) TACROLIMUS [id number] 14:16:00 Test Item Value Reference Range Interpretation Comments TACROLIMUS BLOOD (BEAKER) (test 9.7 ng/mL 10.0-20.0 L code = 657) AM TROUGH LEVELLIPID [id number] 12:51:00 Test Item Value Reference Range Interpretation Comments TRIGLYCERIDES (BEAKER) (test code = 629 mg/dL 540) CHOLESTEROL (BEAKER) (test code = 168 mg/dL 631) HDL CHOLESTEROL (BEAKER) (test code 17 mg/dL = 976) Calculated LDL not valid if triglyceride >400 mg/dLTriglyceride Reference Range: Low Risk <150 Borderline 150-199 High Risk 200-499 Very High Risk >=500Cholesterol Reference Range: Low Risk <200 Borderline 200-239 High Risk >240HDL Cholesterol Reference Range: Low Risk >=60 High Risk <40LDL Cholesterol ReferenceRange: Optimal <100 Near Optimal 100-129 Borderline 130-159 High 160-189 Very High >=190HEPATIC FUNCTION [id number] 12:51:00 Test Item Value Reference Range Interpretation [...] = 31 U/L 6-55 347) STOOL PATH [id number] 08:52:00 Test Item Value Reference Range Interpretation Comments PATHOGEN EXAM CHARGED (BEAKER) (test Done code = 2381) POCT-GLUCOSE [id number] 08:27:00 Test Item Value Reference Range Interpretation Comments POC-GLUCOSE METER 137 mg/dL 70-110 H TESTED AT [facility] 6720 ([facility]) (test code = GILDA Gates [place] 1538) [address] CBC W/PLT COUNT & AUTO [id number] 08:03:00 Test Item Value Reference Range Interpretation [...] (test code = Normal 762) BASIC METABOLIC [id number] 06:34:00 Test Item Value Reference Range Interpretation [...] S NOT APPLICABLE FOR DIALYSIS PATIEN TS. [id number] 06:33:00 Test Item Value Reference Range Interpretation Comments PHOSPHORUS (BEAKER) (test code = 3.7 mg/dL 2.3-4.7 604) [id number] 06:33:00 Test Item Value Reference Range Interpretation Comments MAGNESIUM (BEAKER) (test code = 2.0 mg/dL 1.6-2.6 627) FECAL [id number] 00:57:00 Test Item Value Reference Range Interpretation Comments FECAL LEUKOCYTES No fecal leukocytes No fecal leukocytes (BEAKER) (test code = seen seen 992) POCT-GLUCOSE [id number] 22:15:00 Test Item Value Reference Range Interpretation Comments POC-GLUCOSE METER 156 mg/dL 70-110 H TESTED AT [facility] 67 ([facility]) (test code = GILDA Gates [place] 1538) [address] OCCULT BLOOD, [id number] 22:01:00 Test Item Value Reference Range Interpretation Comments FECAL OCCULT BLOOD (BEAKER) (test Positive Negative A code = 618) CREATININE, RANDOM [id number] 19:52:00 Test Item Value Reference Range Interpretation Comments CREATININE URINE (BEAKER) (test 98.1 mg/dL code = 375) Reference Range: No NormalsPROTEIN, RANDOM [id number] 19:52:00 Test Item Value Reference Range Interpretation Comments PROTEIN, URINE (BEAKER) (test code = 40 mg/dL 0-14 H 1569) POCT-GLUCOSE [id number] 18:18:00 Test Item Value Reference Range Interpretation Comments POC-GLUCOSE METER 184 mg/dL 70-110 H TESTED AT [place] [address] ([facility]) (test code = [facility] [place] 1538) [address] CLOSTRIDIUM DIFFICILE TOXIN [id number] 16:25:00 Test Item Value Reference Range Interpretation [...] me if elevated.CBC W/PLT COUNT & AUTO [id number] 14:51:00 Test Item Value Reference Range Interpretation [...] (test code = 1+ few 966) POCT-GLUCOSE [id number] 10:18:00 Test Item Value Reference Range Interpretation Comments POC-GLUCOSE METER 152 mg/dL 70-110 H TESTED AT [facility] 6720 (BEAKER) (test code = GILDA [place] 1538) [address] BASIC METABOLIC [id number] 09:01:00 Test Item Value Reference Range Interpretation [...] S NOT APPLICABLE FOR DIALYSIS PATIEN TS. [id number] 08:10:00 Test Item Value Reference Range Interpretation Comments PHOSPHORUS (BEAKER) (test code = 4.4 mg/dL 2.3-4.7 604) [id number] 08:10:00 Test Item Value Reference Range Interpretation Comments MAGNESIUM (BEAKER) (test code = 2.0 mg/dL 1.6-2.6 627) URINALYSIS W/ [id number] 18:11:00 Test Item Value Reference Range Interpretation [...] (test code Urine, Clean Catch = 2795) [id number] 17:43:00 Test Item Value Reference Range Interpretation Comments LIPASE (BEAKER) (test code = 749) 25 U/L 8-78 [id number] 17:43:00 Test Item Value Reference Range Interpretation Comments AMYLASE (BEAKER) (test code = 349) 65 U/L 25-125 HEPATIC FUNCTION [id number] 17:43:00 Test Item Value Reference Range Interpretation [...] = 41 U/L 6-55 347) BASIC METABOLIC [id number] 17:43:00 Test Item Value Reference Range Interpretation [...] PATIEN TS. CBC W/PLT COUNT & AUTO [id number] 17:18:00 Test Item Value Reference Range Interpretation [...]
[2020-09-19] MEDS ORDERED: CODEINE 30MG/APAP 300MG TAB ONE ×2 (18:10→20:45)
--- NOTE | 2020-09-19 20:38 | RAD REPORT ---
EXAM DESCRIPTION: RAD - Wrist Left 3 View - 09/19/2020 7:03 pm CLINICAL HISTORY: fall, wrist pain COMPARISON: No comparisons FINDINGS: No fracture is identified. There is no dislocation or periosteal reaction noted. Small maria de jesus ign sclerotic focus is present in the hamate bone. Arterial tree calcifications are present. No forei gn body or other soft tissue abnormality. IMPRESSION: No fracture or acute left wrist finding.
--- NOTE | 2020-09-19 20:50 | ER ---
Nurse's Notes [facility] Name: Iliana Chilel Age: 50 yrs Sex: Female : 1970 Arrival Date: 09/19/2020 Time: 16:57 Bed 15 Private MD: Galdino Masters R Diagnosis: Other specified sprain of left wrist Presentation: 09/19 17:07 Chief complaint: Patient states: i was just walking and i tripped on the rug and i just tw2 went flying. i went into the couch to catch myself and it didn't swell at first. it happened around 11:30. i took a pain pill. i took 2 tramadol around noon. the pain never went away. then around 5:30 pm i took 2 tylenol but it is just not helping. i also feel like it hurts into the bone or maybe nerves all the way up my forearm and shoulder. Coronavirus screen: At this time, the client does not indicate any symptoms associated with coronavirus-19. Ebola Screen: Patient denies travel to an Ebola-affected area in the 21 days before illness onset. Initial Sepsis Screen: Does the patient meet any 2 criteria? No. Patient's initial sepsis screen is negative. Does the patient have a suspected source of infection? No. Patient's initial sepsis screen is negative. Risk Assessment: Do you want to hurt yourself or someone else? Patient reports no desire to harm self or others. Onset of symptoms was September 19, 2020. 17:07 Method Of Arrival: Ambulatory tw2 17:07 Acuity: BOO 4 tw2 Triage Assessment: 17:14 General: Appears in no apparent distress. uncomfortable, Behavior is calm, cooperative, tw2 appropriate for age. Pain: Complains of pain in left hand and left arm. 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 tw2 Historical: - Allergies: 17:12 No Known Allergies; tw2 - Home Meds: 17:12 labetalol 100 mg Oral tab 1 tab 2 times per day [Active]; lisinopril 20 mg Oral tab 1 tw2 tab once daily [Active]; pravastatin 10 mg Oral tab [Active]; Prograf 1 mg Oral cap every 12 hours for Prevention of Kidney Transplant Rejection [Active]; 17:14 gabapentin 300 mg oral cap 1 cap 3 times per day [Active]; prednisone 5 mg Oral tab tw2 once daily [Active]; Valcyte 50 mg/mL oral solr [Active]; pantoprazole 40 mg oral TbEC 1 tab once daily [Active]; - PMHx: 17:12 Diabetes - IDDM; tw2 - PSHx: 17:12 kidney transplant, Left; tw2 17:14 Cholecystectomy; ovarian cyst; Hysterectomy; kidney transplant, 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 - Social history:: Smoking status: . Screenin:57 Abuse screen:. Nutritional screening: No deficits noted. Tuberculosis screening: No ad1 symptoms or risk factors identified. Fall Risk Fall in past 12 months (25 points). Assessment: 19:58 Reassessment: Patient and/or family updated on plan of care and expected duration. Pain ad1 level reassessed. Patient is alert, oriented x 3, equal unlabored respirations, skin warm/dry/pink. General: Appears. Pain: Complains of pain in left arm/wrist Pain currently is 8 out of 10 on a pain scale. Pain: Aggravated by movement Noted to be. Derm: No deficits noted. Musculoskeletal: Tenderness present in left arm/wrist area. 20:31 Reassessment: Patient and/or family updated on plan of care and expected duration. Pain ad1 level reassessed. Patient is alert, oriented x 3, equal unlabored respirations, skin warm/dry/pink. General:. Pain: Complains of pain in left arm/wrist Pain currently is 9 out of 10 on a pain scale. Pain: Pain. Vital Signs: 17:07 BP 127 / 88; Pulse 92; Resp 17; Temp 97.9(TE); Pulse Ox 98% on R/A; Weight 99.79 kg; tw2 Height 5 ft. 8 in. (172.72 cm) (R); Pain 9/10; 19:42 BP 130 / 98; Pulse 81; Resp 18; Pulse Ox 84% ; Pain 8/10; ad1 20:57 Pain 7/10; ad1 17:07 Body Mass Index 33.45 (99.79 kg, 172.72 cm) tw2 ED Course: 16:57 Patient arrived in ED. mr 16:58 Galdino Masters MD is Private Physician. mr 17:10 Triage completed. tw2 17:14 Arm band placed on. tw2 17:34 Harpal Johansen PA is PHCP. jmm 17:34 Alberto Treadwell MD is Attending Physician. m 17:40 Denise Vela is Primary Nurse. kg 19:03 Wrist Left (3 View) XRAY In Process Unspecified. EDMS 19:03 Shoulder Left (2 View) XRAY In Process Unspecified. EDMS 20:49 Galdino Masters MD is Referral Physician. jmm 20:56 Orthoglass splint: Sugar tong splint applied on left arm. Sling \T\ swathe to left arm. oe 20:57 Patient has correct armband on for positive identification. ad1 20:57 No provider procedures requiring assistance completed. ad1 20:59 Patient did not have IV access during this emergency room visit. ad1 Administered Medications: 17:50 Drug: Tylenol #3 (300 mg-30 mg) 1 tablet Route: PO; kg 20:31 Drug: Tylenol #3 (300 mg-30 mg) 1 tablet Route: PO; ad1 20:57 Follow up: Pain 11/18 Adult ad1 Outcome: 20:49 Discharge ordered by . jmm 20:57 Discharged to home ad1 20:57 Condition: good 20:57 Discharge instructions given to patient, Instructed on discharge instructions, follow up and referral plans. 20:59 Patient left the ED. ad1 Signatures: Dispatcher [employer] EDMS Harpal Johansen PA PA [facility] Mirtha VillegasEli RN RN ad1 Brooklynn Ponce RN RN tw2 Roberto Rodriguez oe Denise Vela kg
--- NOTE | 2020-09-19 20:50 | EDPHYS ---
Physician Documentation [facility] Name: Iliana Chilel Age: 50 yrs Sex: Female : 1970 Arrival Date: 09/19/2020 Time: 16:57 Bed 15 Private MD: Galdino Masters R ED Physician Alberto Treadwell HPI: 09/19 17:44 This 50 yrs old Female presents to ER via Ambulatory with complaints of Fall jmm Injury. 17:44 Details of fall: The patient fell from an upright position. Onset: The symptoms/episode jmm began/occurred acutely, just prior to arrival. Associated injuries: The patient sustained left arm. The patient has not experienced similar symptoms in the past. Patient states she tripped and fell on a left out stretched hand. Denies head injury. . 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 tw2 Historical: - Allergies: 17:12 No Known Allergies; tw2 - Home Meds: 17:12 labetalol 100 mg Oral tab 1 tab 2 times per day [Active]; lisinopril 20 mg Oral tab 1 tw2 tab once daily [Active]; pravastatin 10 mg Oral tab [Active]; Prograf 1 mg Oral cap every 12 hours for Prevention of Kidney Transplant Rejection [Active]; 17:14 gabapentin 300 mg oral cap 1 cap 3 times per day [Active]; prednisone 5 mg Oral tab tw2 once daily [Active]; Valcyte 50 mg/mL oral solr [Active]; pantoprazole 40 mg oral TbEC 1 tab once daily [Active]; - PMHx: 17:12 Diabetes - IDDM; tw2 - PSHx: 17:12 kidney transplant, Left; tw2 17:14 Cholecystectomy; ovarian cyst; Hysterectomy; kidney transplant, 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 - Social history:: Smoking status: . ROS: 17:44 Constitutional: Negative for fever, chills, and weight loss, Cardiovascular: Negative jmm for chest pain, palpitations, and edema, Respiratory: Negative for shortness of breath, cough, wheezing, and pleuritic chest pain. 17:44 MS/extremity: Positive for injury or acute deformity, pain. 17:44 All other systems are negative. Exam: 17:44 Constitutional: This is a well developed, well nourished patient who is awake, alert, jmm and in no acute distress. Head/Face: atraumatic. Eyes: EOMI, no conjunctival erythema appreciated ENT: Moist Mucus Membranes Neck: Trachea midline, Supple Chest/axilla: Normal chest wall appearance and motion. Cardiovascular: Regular rate and rhythm. No edema appreciated Respiratory: Normal respirations, no respiratory distress appreciated Abdomen/GI: Non distended, soft Back: Normal ROM Skin: General appearance color normal 17:44 Musculoskeletal/extremity: left distal radius and ulna TTP, no scaphoid tenderness, full radial pulse, compartments are soft, NVI. 17:44 Skin: Appearance: Color: normal in color. 17:44 Neuro: Orientation: is normal, Mentation: is normal, Memory: is normal. 17:44 Psych: Behavior/mood is pleasant, cooperative. Vital Signs: 17:07 BP 127 / 88; Pulse 92; Resp 17; Temp 97.9(TE); Pulse Ox 98% on R/A; Weight 99.79 kg; tw2 Height 5 ft. 8 in. (172.72 cm) (R); Pain 9/10; 19:42 BP 130 / 98; Pulse 81; Resp 18; Pulse Ox 84% ; Pain 8/10; ad1 20:57 Pain 7/10; ad1 17:07 Body Mass Index 33.45 (99.79 kg, 172.72 cm) tw2 MDM: 17:44 Patient medically screened. [facility] 20:44 Data reviewed: vital signs, nurses notes. Counseling: I had a detailed discussion with [facility] the patient and/or guardian regarding: the historical points, exam findings, and any diagnostic results supporting the discharge/admit diagnosis, radiology results, the need for outpatient follow up, to return to the emergency department if symptoms worsen or persist or if there are any questions or concerns that arise at home. ED course: Patient is alert and non toxic in appearance. xray is negative. patient advised to follow up with pcp. Patient otherwise given strict return precautions. patient understood and agrees with the plan of care. . 09/19 17:45 Order name: Wrist Left (3 View) XRAY; Complete Time: 22:25 [facility] 09/19 17:45 Order name: Shoulder Left (2 View) XRAY; Complete Time: 22:25 [facility] 09/19 20:17 Order name: Sugar Tong Forearm Splint [facility] 09/19 20:17 Order name: Sling [facility] Administered Medications: 17:50 Drug: Tylenol #3 (300 mg-30 mg) 1 tablet Route: PO; kg 20:31 Drug: Tylenol #3 (300 mg-30 mg) 1 tablet Route: PO; ad1 20:57 Follow up: Pain 11/18 Adult ad1 Disposition: 09/20 19:07 Co-signature as Attending Physician, Alberto Treadwell MD. rn Disposition: 09/19/20 20:49 Discharged to Home. Impression: Other specified sprain of left wrist. - Condition is Stable. - Discharge Instructions: Wrist Sprain. - Prescriptions for Tylenol- Codeine #3 300-30 mg Oral Tablet - take 1 tablet by ORAL route every 4-6 hours As needed; 20 tablet. - Medication Reconciliation Form, Thank You Letter, Antibiotic Education, Prescription Opioid Use form. - Follow up: Galdino Masters MD; When: Tomorrow; Reason: Recheck today's complaints, Continuance of care, Re-evaluation by your physician. Signatures: Dispatcher [employer] EDMS Harpal Johansen PA PA [facility] Alberto Traedwell MD MD rn [place], Anna RN RN ad1 Brooklynn Ponce RN RN tw2 Denise Vela kg Corrections: (The following items were deleted from the chart) 09/19 20:59 20:49 09/19/2020 20:49 Discharged to Home. Impression: Other specified sprain of left ad1 wrist. Condition is Stable. Forms are Medication Reconciliation Form, Thank You Letter, Antibiotic Education, Prescription Opioid Use. Follow up: Galdion Masters; When: Tomorrow; Reason: Recheck today's complaints, Continuance of care, Re-evaluation by your physician. [facility]
--- NOTE | 2020-09-19 20:58 | RAD REPORT ---
EXAM DESCRIPTION: RAD - Shoulder Left 2 View - 09/19/2020 7:03 pm CLINICAL HISTORY: fall, shoulder pain COMPARISON: No comparisons TECHNIQUE: Internal and external rotation views of the left shoulder were obtained. FINDINGS: There is no fracture or dislocation. AC joint is normal in appearance. No acute or suspici ous findings. IMPRESSION: Negative two-view left shoulder examination for acute findings.
[2020-09-19 21:14] VITALS: TEMP 97.9
[2020-09-19 21:20] VITALS: BP 130/98; O2SAT 84
== END 2020-09-19 20:59 | disposition home or self-care (01) ==
LOC: ER 16:54
DX: S63.592A Other specified sprain of left wrist, initial encounter (principal); W01.0XXA Fall on same level from slipping, tripping and stumbling without subsequent striking against object, initial encounter; E11.9 Type 2 diabetes mellitus without complications; Z94.0 Kidney transplant status
CPT/HCPCS: 99283

== ENCOUNTER 2023-01-22 13:37 | Emergency (ER) | payer OTHER ==
--- OUTSIDE RECORDS SUMMARY | 2023-01-22 13:58 | XMS REPORT | Continuity of Care Document ---
:1970 Author Organization [facility] t Address [address] [place] [address] Care Team Providers Name Role Phone MI MARTIN Primary Care Physician Unavailable REESE SOUTH ABA Attending Clinician Unavailable CHENTE KRAMER Attending Clinician Unavailable SHEMAR LANGLEY Attending Clinician Unavailable AVNI MORALES Attending Clinician Unavailable Jw Attending Clinician Unavailable MINDI SNELL Attending Clinician Unavailable Alis MA, Mindi Sommers Attending Clinician [phone] Meghana Amin RN Attending Clinician Unavailable Ajay Rizo MD Attending Clinician AJAY RIZO Attending Clinician Unavailable Leti Urena MD Attending Clinician LETI URENA Attending Clinician Unavailable Jesica Meyer MD Attending Clinician + [phone] JESICA MEYER Attending Clinician Unavailkeisha Hay, Surgeon Attending Clinician Unavailable Maribell NAVARRO, Isadroa Attending Clinician Unavailable VALENCIA ECKERT Attending Clinician Unavailable PIERO LEE Attending Clinician Unavailable CORRIE GARLAND Attending Clinician Unavailable Bruce CALDERON Attending Clinician Unavailable CORTNEY SANDERS Attending Clinician Unavailable TAMARA NAM Attending Clinician Unavailable PATT WELSH Attending Clinician Unavailable VLADIMIR GOMEZ Attending Clinician Unavailable ANJANA PETIT Attending Clinician Unavailable PAYTON ALMARAZ Attending Clinician Unavailable REESE SOUTH ABA Admitting Clinician Unavailable CHENTE KRAMER Admitting Clinician Unavailable SHEMAR LANGLEY Admitting Clinician Unavailable Jw Admitting Clinician Unavailable MINDI SNELL Admitting Clinician Unavailable AJAY RIZO Admitting Clinician Unavailable JESICA MEYER Admitting Clinician UnavailMAYO Lares Admitting Clinician Unavailable KASSIDY CRAWLEY Admitting Clinician Unavailable SIDNEY BUSTAMANTE Admitting Clinician Unavailable VIANCA BAILEY Admitting Clinician Unavailable JASPAL FLORES Admitting Clinician Unavail able PIERO LEE Admitting Clinician Unavailable ELE PALOMINO Admitting Clinician Unavailable VALENCIA ECKERT Admitting Clinician Unavailable VLADIMIR GOMEZ Admitting Clinician Unavailable ANJANA PETIT Admitting Clinician Unavailable Payers Payer Name Policy Type Policy Number Effective Date Expiration Date S logan MEDICARE A B [id number] 2012 00:00:00 [facility] [id number] 2015 2017 RESOURCES CHOICE 00:00:00 00:00:00 POS GENERIC COMMERCIAL [id number] 2013 2013 00:00:00 00:00:00 [employer] [id number] 2014 2015 NON-UNITED ONLY 00:00:00 00:00:00 COVID VACCINE ADMIN [id number] 2020-06-10 / TESTING 00:00:00 CDC REVIEW [id number] 2020-01-20 00:00:00 MEDICARE-PART B 5 [id number] 2018-07-31 00:00:00 PHCS-VITORI 2 [id number] 2022-01-10 00:00:00 MEDICARE B-[place]: [id number] 2012-03-12 [employer] SOL[employer] 00:00:00 [place] - VITORI - [id number] PHCS (PPO) MEDICARE-[place] [id number] 2012-03-12 (MEDICARE) 00:00:00 Problems Condition Condition Condition Status Onset Resolution Last Treating Co mments Source Name Details Category Date Date Treatment Clinician Date Morbid Morbid Problem Active [place] obesity Obesity 05-20 Family 00:00: Practic 00 e Gastroesop Gastroesop Problem Active [facility] hageal hageal 05-20 Family reflux Reflux 00:00: Practic disease Disease 00 e without without esophagiti Esophagiti s s Renal Renal Disease Active [facility] 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-14 [facility] kes rejection rejection 00:00: Medi jennifer 00 Center Pericardit Pericardit Disease Active [facility] is is 4-13 [facility] 00:[facility] 00 Center Type 2 Type 2 Problem Active [facility] diabetes Diabetes 3 Family mellitus Mellitus 00:00: Practi c 00 e FSGS FSGS Disease Active [facility]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 She is s/p DDKT due to DM/HTN on 01/21/2020 . She is doing well at this time without evidence of recurrent disease. Seizure Seizure Disease Recurre [facility] disorder disorder nce 6 [facility] 00:[facility]: Medical 00 Center Encephalop Encephalop Disease Active [facility] athy acute athy acute 3-21 [facility] k[facility] 00:00: Medical 00 Center Depressive Depressive Problem Active [facility] disorder Disorder -17 Family 00:00: Practic 00 e Neuropathy Neuropathy Problem Active [facility] 1-17 Family 00:00: Practic 00 e Fatty Fatty Disease Active 2017-[address] [facility] liver liver 06-07 [facility] 00:00: Medical 00 Center Abnormal Abnormal Disease Active 2017-[facility] 06[facility] diagnostic diagnostic 00:00: Tx dical imaging imaging 00 Center Hyperkalem Hyperkalem Disease Active [facility] ia ia 8 [facility] 00:00: Medical 00 Center Hyperlipid Hyperlipid Problem Active [facility] emia emia 11-06 Family 00:00: Practic 00 e Neuropathy Neuropathy Problem Active [facility] due to Due to 11-06 Family diabetes Diabetes 00:00: Practi c mellitus Mellitus 00 e Essential Essential Problem Active Denys friedmane hypertensi Hypertensi 11-06 Fa diandra on on 00:00: Practic 00 [...] ly present Present 00:00: Practic 00 e Disorder Disorder Problem Active [facility] associated Associated 11-06 Fa diandra with with 00:00: Practic menstruati Menstruati 00 e on AND/OR on AND/OR menopause Menopause Neuropathy Neuropathy Problem Active [facility] due to Due to 11-06 Family type 2 Type 2 00:00: Practic diabetes Diabetes 00 e mellitus Mellitus Clinical Clinical Problem Active [facility] finding Finding 11-06 Family 00:00: Practic 00 e Obesity Obesity Problem Active [facility] 18 Family 00:00: Practic 00 e Focal Focal Disease Active Overview: [facility] segmental segmental 1-25 Formattin L ukes glomerulos glomerulos 00:00: g of this Medical clerosis clerosis 00 note Center might be different from the original. 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 Well managed with current therapy. Will continue to follow. Immunosupp Immunosupp Disease Active 2013-[address] ression ression -18 [facility] 00:00: t & Plan: Medical Formattin Center g of this note might be different from the original. She denies headache or tremor on current immunosup pression. We will adjust her dose according to her levels. DM DM Disease Active Last [facility] (diabetes (diabetes 30 Assessmen L ukyessica mellitus) mellitus) 00:00: t & Plan: M edical 00 [facility] g of this note might be different from the original. Blood glucoses are elevated on current regimen. She reports not using short acting insulin. We will work with pharmacy to ensure she is able to get appropria te insulin therapy as prescribe d. HTN HTN Disease Active Last [facility]ens [facility]ens 06-[facility] ion) 00:00: t & Plan: Medical 00 [facility] g of this note might be different from the original. Blood pressure is stable on current regimen. Anemia Anemia Disease Active Last [facility] 06-10 [facility] 00:00: t & Plan: Medical 00 [facility] g of this note might be different from the original. Anemia-Hg stable, cont current care with hg monitorin g and iron infusions per nephrolog y Allergies, Adverse Reactions, Alerts Allergy Allergy Status Severity Reaction(s) Onset Inactive Treating Comm ents Source Name Type Date Date Clinician Anti-Thy Drug Active Other (See Possibly [facility] mocyte Allergy Comments) 3-11 serum [facility] Glob 00:00: sickness Medical (Rabbit) 00 Center ANTI-THY Allergy Active Med Other [facility] MOCYTE 3-11 GLOB 00:00: (RABBIT) 00 Anti-Thy Drug Active Other Other Marie mocyte Intolera 3-11 reaction( Seybo ld Glob, nce 00:00: s): - Rabbit 00 Other, Externa Other l (See Comments) Possibly serum sickness Possible/ probable serum sickness - 01/2020- after induction ISNPossib ly serum sickness Possible/ probable serum sickness - 01/2020- after induction ISN ANTI-THY Allergy Active [facility] MOCYTE to 3-11 Family GLOBULIN substanc 00:00: Practi c , RABBIT e 00 e Atorvast Drug Active Other (See Muscle [facility] atin Intolera Comments) 1-06 cramps, Luke s nce 00:00: able to Medical 00 tolerate Center pravastat in Atorvast Drug Active Other Other Marie atin Intolera 1-06 reaction( Seybo ld nce 00:00: s): - 00 Other, Externa Other l (See Comments) Muscle cramps, able to tolerate pravastat in PainMuscl e cramps, able to tolerate pravastat inPain ATORVAST Allergy Active Med Other 2019-[address] [facility] ATIN 05-17 [facility] 00:00: Medical 00 Center Atorvast Allergy Active [place] atin to 05-17 Family substanc 00:00: Practic e 00 e Family History Family Member Diagnosis Comments Start Date Stop Date Source Natural father Hypertension [facility] Natural mother Diabetes [facility] Natural mother Hypertension [facility] Natural sister Hematuria [facility] Social History Social Habit Start Date Stop Date Quantity Comments Source History SDOH [facility] Alcohol Frequency [facility] History SDOH [facility] Alcohol Std Drinks Medica Center History SDOH [facility] Alcohol Binge Medical [facility] History SDWV [facility] Transport Non-Med Medical Center Gender identity Marie marie - External Sexual orientation Marie Pinon - External Tobacco use and 2022-09-26 2022-09-26 Smokeless tobacco Ke haydee Acevesmeera exposure 00:00:00 00:00:00 non-user - External History of Social 2022-09-26 2022-09-26 Marie Pinon function 00:00:00 00:00:00 - External History [facility] 2021-11-13 2021-11-[address] [facility] Housing Places 00:00:00 00:00:00 Medical Ce nter Lived History [facility] 2021-11-13 2021-11-[address] [facility] Housing Homeless 00:00:00 00:00:00 Medical Center Last Year Alcohol intake 2021-11-13 2021-11-13 Current drinker [facility] 00:00[facility]00 00:00:00 alcohol (finding) Medical Center History [facility] 2021-11-13 2021-11-[address] [facility] Transport Med 00:00:00 00:00:[address] History [facility] 2021-11-13 2021-11-[address] [facility] Housing Unable to 00:00:00 00:00:00 Medical Center Pay Alcohol Comment 2021-09-28 2021-09-[address] [facility] 00:00:00 00:00:00 [facility] Sex Assigned At [birth year] MARGOT Phillips 00:00:00 00:00:00 Medical Center Smoking Status Start Date Stop Date Source Never smoked tobacco Marie Seyb old - External Medications Ordered Filled Start Stop Current Ordering Indication Dosage Frequency Signature Comments Components Source Medication Medication Date Date Medication? Clinician (SIG) Name Name Trazodone Yes trazodone Dillon sey HCl 50 MG 5-18 50 mg Seybold oral Tablet 15:00: tablet - 06 TAKE 1 Externa TABLET BY l MOUTH EVERYDAY AT BEDTIME NIFEdipine 2022-0 Yes every 12 Dillon sey 60 MG oral 5-18 hours Seybold TABLET SR 15:00: - 24 HR 06 Externa l Losartan Yes every 12 Kelse y Potassium 5-18 hours Seybold (COZAAR) 50 15:00: - MG oral 06 Externa Tablet l Furosemide Yes furosemide K elsey 40 MG oral 5-18 40 mg Seybold Tablet 15:00: tablet - 06 TAKE 2 Externa TABLETS BY l MOUTH EVERY DAY Aspirin 81 0 Yes 81mg 1 tablet Dillon sey MG oral 5-18 (81 mg Seybold Tablet 15:00: total) - Delayed 06 Externa Response l predniSONE Yes 10mg Take 2 Kelse y (DELTASONE) 4-18 tablets Seybo ld 5 MG oral 00:00: (10 mg - Tablet 00 total) by Externa mouth l daily Paroxetine Yes 20mg Take 1 Kelse y HCl 20 MG 4-05 tablet (20 Seyb old oral Tablet 00:00: mg total) - 00 by mouth Externa every l morning Mycophenola 2022-0 Yes 250mg Take 1 Dillon sey te Mofetil 4-05 capsule Seybol d 250 MG oral 00:00: (250 mg - Capsule 00 total) by Externa mouth 2 l times daily FENOFIBRATE 2022-0 Yes 54mg Take 1 Destinee ey MICRONIZED 4-05 tablet (54 Sey bold 54 MG oral 00:00: mg total) - Tablet 00 by mouth Externa daily l Carvedilol Yes TAKE 1 Kelse y 6.25 MG 4-05 TABLET Seybold oral Tablet 00:00: TWICE A - 00 DAY BY Externa ORAL ROUTE l FOR 90 DAYS. Tacrolimus Yes TAKE 4 Kelse y 0.5 MG oral 3-30 CAPSULES Seyb old Capsule 00:00: EVERY 12 - 00 HOURS BY Externa ORAL ROUTE l DIRECTED FOR 90 DAYS. Insulin 2022-0 Yes 100U Inject 100 Destinee ey Regular 3-30 units into Seybol d Human 100 00:00: the skin - UNIT/ML 00 daily Externa injection l Solution Pen-injecto r FREESTYLE Yes USE TO Marie SEARS in 3-24 TEST 3 Seybold vitro Strip 00:00: TIMES A - 00 DAY Externa l Pravastatin 0 Yes 40mg Take 1 Destinee ey Sodium 40 3-04 tablet (40 Seyb old MG oral 00:00: mg total) - Tablet 00 by mouth Externa at bedtime l hydrALAZINE 0 Yes 25mg Take 1 Destinee ey HCl 25 MG 3-04 tablet (25 Seyb old oral Tablet 00:00: mg total) - 00 by mouth 2 Externa times l daily Levetiracet Yes TAKE 1 Destinee ey am 250 MG 2-28 TABLET BY Seybo ld oral Tablet 00:00: MOUTH - 00 TWICE A Externa DAY FOR 90 l DAYS. Pantoprazol Yes 40mg Take 1 Destinee ey e Sodium 40 2-20 tablet (40 Se ybold MG oral 00:00: mg total) - Tablet 00 by mouth Externa Delayed daily l Response sodium sodium 0 No 650mg BID sodium Villag e bicarbonate bicarbonate 09 bicarbonat Family 325 mg 325 mg 00:00: e 325 mg Pract ic tablet Take tablet Take 00 tablet e 650 mg 650 mg Take 650 twice a day twice a day mg twice a by oral by oral day by route. route. oral route. tacrolimus tacrolimus No 1packet BID tacrolimus [facility] 0.2 mg oral 0.2 mg oral 09 (s) 0.2 mg Family granules in granules in 00:00: oral Practic packet Take packet Take 00 granules e 1 packet 1 packet in packet twice a day twice a day Take 1 by oral by oral packet route as route as twice a directed. directed. day by oral route as directed. Sodium 2023-0 Yes 650mg 2 tablets Kelse y Bicarbonate 1-09 (650 mg Seybo ld 325 MG oral 00:00: total) - Tablet 00 every 12 Externa hours l aspirin 81 Yes 81mg QD Take [address] MG EC 7-06 by mouth [facility] tablet 18:01: daily. Medical 36 Center [facility] Yes 800mg Take [address] [facility] (RENVELA) 7-06 mg by [facility] 800 mg 18:01: mouth 3 Medical tablet 36 (three) Center times daily with meals. omega-3 Yes 2g Q.5D Take [address] [facility] fatty 7-06 by mouth 2 [facility] acids-fish 18:01: (two) Medica l oil 36 times Center 340-1,000 daily. mg Cap per capsule carvediloL Yes 6.25mg Take 6.[address] [facility] (COREG) 7-06 mg by [facility] 12.5 MG 18:01: mouth 2 Medical tablet 36 (two) Center times daily with breakfast and dinner . NIFEdipine Yes 60mg Q.5D Take [address] (ADALAT CC) 7-06 by mouth 2 Roxanna kes 60 MG 24 hr 18:01: (two) Medic al tablet 36 times Center daily. losartan Yes 50mg Q.5D Take [address] (COZAAR) 50 7-06 by mouth 2 Roxanna kes MG tablet 18:01: (two) Medical 36 times Center daily. insulin Yes 100U QD Inject [address] [facility] regular 7-06 Units [facility] human 100 18:01: subcutaneo Me dical unit/mL ([address] mL) InPn At night . hydrALAZINE Yes 25mg Q.5D Take [address] [facility] (APRESOLINE 7-06 by mouth 2 Roxanna kes ) 25 MG 18:01: (two) Medical tablet 36 times Center daily. aspirin 81 Yes 81mg QD Take [address] MG EC 7-06 by mouth [facility] tablet 18:01: daily. Medical [facility] Yes 800[facility] Take [address] (RENVELA) 7-06 mg by [facility] 800 mg 18:01: mouth 3 Medical tablet 36 (three) Center times daily with meals. omega-3 Yes 2g Q.5D Take [address] fatty 7-06 by mouth 2 [facility] acids-fish 18:01: (two) Medica l oil 36 times Center 340-1,000 daily. mg Cap per capsule carvediloL Yes 6.25mg Take 6.[address] [facility] (COREG) 7-06 mg by [facility] 12.5 MG 18:01: mouth 2 Medical tablet 36 (two) Center times daily with breakfast and dinner . NIFEdipine Yes 60mg Q.5D Take [address] (ADALAT CC) 7-06 by mouth 2 Roxanna kes 60 MG 24 hr 18:01: (two) Medic al tablet 36 times Center daily. losartan Yes 50mg Q.5D Take [address] (COZAAR) 50 7-06 by mouth 2 Roxanna kes MG tablet 18:01: (two) Medical 36 times Center daily. insulin Yes 100U QD Inject [address] [facility] regular 7-06 Units [facility] human 100 18:01: subcutaneo Me dical unit/mL ([address] mL) InPn At night . hydrALAZINE Yes 25mg Q.5D Take [address] [facility] (APRESOLINE 7-06 by mouth 2 Roxanna kes ) 25 MG 18:01: (two) Medical tablet 36 times Center daily. tacrolimus 2020-05 Yes 1.[address] [facility] (PROGRAF) 1-16 and 1.5 mg Luke s 0.5 MG 00:00: pm. Medical capsule 00 [facility] tacrolimus 2020-05 Yes 1.[address] [facility] (PROGRAF) 1-16 and 1.5 mg Luke s 0.5 MG 00:00: pm. Medical capsule 00 Center predniSONE 2020-05 Yes [address] [facility] (DELTASONE) 0-18 daily. [facility] 10 MG 00:00: Medical tablet 00 Center predniSONE 2020-05 Yes [address] (DELTASONE) 0-18 daily. [facility] 10 MG 00:00: Medical tablet 00 [facility] furosemide 2020-0 2022- No 20mg Q.5D Take [address] [facility] (Lasix) 20 8-16 08-16 tablet (20 Roxanna kes MG tablet 00:00: 23:59 mg total) Me dical 00 :00 by mouth 2 Center (two) times daily As needed for Edema. pravastatin 2021- No 40mg QD Take [address] [facility] (PRAVACHOL) 6-17 06-17 tablet (40 L ukes 40 MG 00:00: 23:59 mg total) Medica l tablet 00 :00 by mouth Center daily. insulin NPH Yes 80U Inject [address] (HumuLIN N) 4-15 Units [facility] 100 unit/mL 00:00: subcutaneo Medical injection 00 usly 2 Center (two) times daily before meals Use as directed. insulin NPH Yes 80U Inject [address] (HumuLIN N) 4-15 Units [facility] 100 unit/mL 00:00: subcutaneo Medical injection 00 usly 2 Center (two) times daily before meals Use as directed. levETIRAcet Yes 500mg Q.5D Take [address] [facility] am (KEPPRA) 4-08 tablet [facility] 500 MG 00:00: (500 mg Medical tablet 00 total) by Center mouth 2 (two) times daily. levETIRAcet Yes 500mg Q.5D Take [address] [facility] am (KEPPRA) 4-08 tablet [facility] 500 MG 00:00: (500 mg Medical tablet 00 total) by Center mouth 2 (two) times daily. sodium 2021- No 650mg Q.5D Take [address] [facility] bicarbonate 4-08 04-08 tablets Luke s 325 MG 00:00: 23:59 (650 mg Medical tablet 00 :00 total) by Center mouth 2 (two) times daily. NIFEdipine 2021- No 60mg Q.5D Take [address] [facility] (ADALAT CC) 1-18 01-18 tablet (60 L ukes 60 MG 24 hr 00:00: 23:59 mg total) Medical tablet 00 :00 by mouth 2 Center (two) times daily. sulfamethox Yes [address] [facility] azole-trime 1-13 every [facility]ukes thoprim 00:00: other day. Medi jennifer (BACTRIM,SE 00 Center PTRA) 400-80 mg per tablet sulfamethox Yes [address] azole-trime 1-13 every [facility]ukes thoprim 00:00: other day. Medi jennifer (BACTRIM,SE 00 Center PTRA) 400-80 mg per tablet insulin pen 2020-0 Yes Use as [facility] needles (BD 02-06 directed. Darin es ULTRA-FINE 00:00: Dispense Med ical MATTIE) 4 mm 00 as Center x 32 G written, do not substitute . Brand medically necessary. To use 6 per day. insulin pen 2020-0 Yes Use as [facility] needles (BD 02-06 directed. Darin es ULTRA-FINE 00:00: Dispense Med ical MATTIE) 4 mm 00 as Center x 32 G written, do not substitute . Brand medically necessary. To use 6 per day. pantoprazol 2020-0 Yes 40mg QD Take [address] [facility] e 9-15 tablet (40 [facility] (PROTONIX) 00:00: mg total) Me dical 40 MG 00 by mouth Center tablet daily. PARoxetine 2020-0 Yes 20mg QD Take 1 [facility] (PAXIL) 20 9-15 tablet (20 Darin es MG tablet 00:00: mg total) Med ical 00 by mouth Center every morning. pantoprazol 2020-0 Yes 40mg QD Take [address] [facility] e 9-15 tablet (40 [facility] (PROTONIX) 00:00: mg total) Me dical 40 MG 00 by mouth Center tablet daily. PARoxetine 2020-0 Yes 20mg QD Take 1 [facility] (PAXIL) 20 9-15 tablet (20 Darin es MG tablet 00:00: mg total) Med ical 00 by mouth Center every morning. aspirin 81 aspirin 81 No 81mg aspirin 81 Village mg mg mg Family tablet,scarlett tablet,scarlett tablet,del Practic yed release yed release ayed e 81 mg by 81 mg by release 81 oral route. oral route. mg by oral route. BD BD No BD [facility] Ultra-Fine Ultra-Fine Ultra-Fine Family Micro Pen Micro Pen Micro Pen Practic Needle 32 Needle 32 Needle 32 e gauge x gauge x gauge x 1/4" USE 4 1/4" USE 4 1/4" USE 4 TIMES A DAY TIMES A DAY TIMES A DAY carvedilol carvedilol No 1 BID carvedilol [facility] 6.25 mg 6.25 mg 6.25 mg Family tablet Take tablet Take tablet Practic 1 tablet 1 tablet Take 1 e twice a day twice a day tablet by oral by oral twice a route for route for day by 90 days. 90 days. oral route for 90 days. fenofibrate fenofibrate No 1 Q1D fenofibrat [facility] 54 mg 54 mg e 54 mg Family tablet Take tablet Take tablet Practic 1 tablet 1 tablet Take 1 e every day every day tablet by oral by oral every day route for route for by oral 90 days. 90 days. route for 90 days. FreeStyle FreeStyle No FreeStyle [facility] Lite Strips Lite Strips Lite F amily USE TO TEST USE TO TEST Strips USE Practic 3 TIMES A 3 TIMES A TO TEST 3 e DAY DAY TIMES A DAY furosemide furosemide No furosemide [facility] 40 mg 40 mg 40 mg Family tablet TAKE tablet TAKE tablet Practic 2 TABLETS 2 TABLETS TAKE 2 e BY MOUTH BY MOUTH TABLETS BY EVERY DAY EVERY DAY MOUTH EVERY DAY Humulin R Humulin R No Humulin R [facility] U-500 U-500 U-500 Family (Conc) (Conc) (Conc) Practic Insulin Insulin Insulin e Kwikpen 500 Kwikpen 500 Kwikpen unit/mL (3 unit/mL (3 500 mL) mL) unit/mL (3 subcutaneou subcutaneou mL) s GIVE 60 s GIVE 60 subcutaneo UNITS UNITS us GIVE 60 BEFORE BEFORE UNITS BREAKFAST BREAKFAST BEFORE AND DINNER AND DINNER BREAKFAST AND AND AND DINNER INCREASE INCREASE AND DIRECTED: DIRECTED: INCREASE TDD 250 TDD 250 DIRECTED: TDD 250 hydralazine hydralazine No 25mg BID hydralazin [facility] 25 mg 25 mg e 25 mg Family tablet Take tablet Take tablet Practic 25 mg twice 25 mg twice Take 25 mg e a day by a day by twice a oral route oral route day by for 90 for 90 oral route days. days. for 90 days. levetiracet levetiracet No 1 BID levetirace [facility] am 250 mg am 250 mg alicea 250 mg Family tablet Take tablet Take tablet Practic 1 tablet 1 tablet Take 1 e twice a day twice a day tablet by oral by oral twice a route for route for day by 90 days. 90 days. oral route for 90 days. losartan 50 losartan 50 No 1 BID losartan [facility] mg tablet mg tablet 50 mg Fami ly Take 1 Take 1 tablet Practic tablet tablet Take 1 e twice a day twice a day tablet by oral by oral twice a route for route for day by 90 days. 90 days. oral route for 90 days. nifedipine nifedipine No 1 BID nifedipine [facility] ER 60 mg ER 60 mg ER 60 mg Fam shannon tablet,exte tablet,exte tablet,ext Practic nded nded ended e release release release Take 1 Take 1 Take 1 tablet tablet tablet twice a day twice a day twice a by oral by oral day by route for route for oral route 90 days. 90 days. for 90 days. nifedipine nifedipine No nifedipine [facility] ER 60 mg ER 60 mg ER 60 mg Fam shannon tablet,exte tablet,exte tablet,ext Practic nded nded ended e release 24 release 24 release 24 hr TAKE 1 hr TAKE 1 hr TAKE 1 TABLET BY TABLET BY TABLET BY MOUTH TWICE MOUTH TWICE MOUTH A DAY A DAY TWICE A DAY pantoprazol pantoprazol No 1 Q1D pantoprazo [facility] e 40 mg e 40 mg le 40 mg Famil y tablet,scarlett tablet,scarlett tablet,del Practic yed release yed release ayed e Take 1 Take 1 release tablet tablet Take 1 every day every day tablet by oral by oral every day route for route for by oral 90 days. 90 days. route for 90 days. paroxetine paroxetine No paroxetine [facility] 20 mg 20 mg 20 mg Family tablet TAKE tablet TAKE tablet Practic 1 TABLET BY 1 TABLET BY TAKE 1 e MOUTH EVERY MOUTH EVERY TABLET BY DAY IN THE DAY IN THE MOUTH MORNING MORNING EVERY DAY IN THE MORNING pravastatin pravastatin No 1 Q1D pravastati [facility] 40 mg 40 mg n 40 mg Family tablet Take tablet Take tablet Practic 1 tablet 1 tablet Take 1 e every day every day tablet by oral by oral every day route in route in by oral the evening the evening route in for 90 for 90 the days. days. evening for 90 days. prednisone prednisone No prednisone [facility] 5 mg tablet 5 mg tablet 5 mg F amily TAKE 2 TAKE 2 tablet Practic TABLETS BY TABLETS BY TAKE 2 e MOUTH EVERY MOUTH EVERY TABLETS BY DAY DAY MOUTH EVERY DAY Adult Adult No 1 Q1D Adult [facility] Aspirin Aspirin Aspirin Family Regimen 81 Regimen 81 Regimen 81 Practic mg mg mg e tablet,scarlett tablet,scarlett tablet,del yed release yed release ayed Take 1 Take 1 release tablet tablet Take 1 every day every day tablet by oral by oral every day route. route. by oral route. trazodone trazodone No trazodone [facility] 50 mg 50 mg 50 mg Family tablet TAKE tablet TAKE tablet Practic 1 TABLET BY 1 TABLET BY TAKE 1 e MOUTH MOUTH TABLET BY EVERYDAY AT EVERYDAY AT MOUTH BEDTIME BEDTIME EVERYDAY AT BEDTIME carvedilol carvedilol No carvedilol [place] 6.25 mg 6.25 mg 6.25 mg Family [...] DAYS. furosemide furosemide No 1 Q1D furosemide [facility] 40 mg 40 mg 40 mg Family tablet Take tablet Take tablet Practic 1 tablet 1 tablet Take 1 e every day every day tablet by oral by oral every day route as route as by oral needed for needed for route as 30 days. 30 days. needed for 30 days. gabapentin gabapentin No 1capsul Q1D gabapentin [facility] 300 mg 300 mg e(s) 300 mg Family capsule capsule capsule Practi c Take 1 Take 1 Take 1 e capsule capsule capsule every day every day every day by oral by oral by oral route at route at route at bedtime. bedtime. bedtime. Humulin R Humulin R No Humulin R [facility] U-500 U-500 U-500 Family (Conc) (Conc) (Conc) [...] directed: TDD 250 hydralazine hydralazine No hydralazin [facility] 50 mg 50 mg e 50 mg Family tablet TAKE tablet TAKE tablet Practic 1 TABLET BY 1 TABLET BY TAKE 1 e MOUTH THREE MOUTH THREE TABLET BY TIMES A DAY TIMES A DAY MOUTH THREE TIMES A DAY levetiracet levetiracet No levetirace [facility] am 500 mg am 500 mg alicea [...] MOUTH EVERY DAY nifedipine nifedipine No nifedipine [facility] ER 60 mg ER 60 mg ER [...] 40 mg le 40 mg Famil y tablet,scarlett tablet,scarlett tablet,del Practic yed release yed release ayed e TAKE 1 TAKE 1 release TABLET BY TABLET BY TAKE 1 MOUTH EVERY MOUTH EVERY TABLET BY DAY DAY MOUTH EVERY DAY paroxetine paroxetine No paroxetine [facility] 20 mg 20 mg 20 mg Family tablet TAKE tablet TAKE tablet Practic 1 TABLET BY 1 TABLET BY TAKE 1 e MOUTH EVERY MOUTH EVERY TABLET BY DAY IN THE DAY IN THE MOUTH MORNING MORNING EVERY DAY IN THE MORNING pravastatin pravastatin No pravastati [facility] 40 mg 40 mg n 40 mg Family tablet TAKE tablet TAKE tablet Practic 1 TABLET BY 1 TABLET BY TAKE 1 e MOUTH EVERY MOUTH EVERY TABLET BY DAY AT DAY AT MOUTH NIGHT NIGHT EVERY DAY AT NIGHT prednisone prednisone No prednisone [facility] 5 mg tablet 5 mg tablet 5 mg F amily TAKE 2 TAKE 2 tablet Practic TABLETS BY TABLETS BY TAKE 2 e MOUTH EVERY MOUTH EVERY TABLETS BY DAY DAY MOUTH EVERY DAY sodium sodium No sodium [facility] bicarbonate bicarbonate bicarbonat [facility] 325 mg 325 mg e 325 mg Practic tablet TAKE tablet TAKE tablet e 2 TABLETS 2 TABLETS TAKE 2 (650 MG (650 MG TABLETS TOTAL) BY TOTAL) BY (650 MG MOUTH 2 MOUTH 2 TOTAL) BY (TWO) TIMES (TWO) TIMES MOUTH 2 DAILY. DAILY. (TWO) TIMES DAILY. sulfamethox sulfamethox No sulfametho [facility] azole 400 azole 400 xazole 400 Family mg-trimetho mg-trimetho mg-trimeth Practic prim 80 mg prim 80 mg oprim 80 e tablet TAKE tablet TAKE mg tablet 1 TABLET BY 1 TABLET BY TAKE 1 MOUTH EVERY MOUTH EVERY TABLET BY DAY DAY MOUTH EVERY DAY tacrolimus tacrolimus No 1packet BID tacrolimus [place] 0.2 mg oral 0.2 mg oral (s) 0.2 mg Family granules in granules in oral P ractic packet Take packet Take granules e 1 packet 1 packet in packet twice a day twice a day Take 1 by oral by oral packet route as route as twice a directed. directed. day by oral route as directed. valganciclo valganciclo No valgancicl [facility] vir 450 mg vir 450 mg ovir 450 Family tablet TAKE tablet TAKE mg tablet Practic 1 TABLET BY 1 TABLET BY TAKE 1 e MOUTH EVERY MOUTH EVERY TABLET BY DAY DAY MOUTH EVERY DAY Immunizations Ordered Immunization Filled Immunization Date Status Commen ts Source Name Name COVID-19 (SARS-COV-2) COVID-19 (SARS-COV-2) 2020-10-31 Completed [facility] Family vaccine, unspecified vaccine, unspecified 00:00:00 Practice COVID-19, mRNA, COVID-19, mRNA, 2020-06-12 Completed [facility] LNP-S, PF, 30 mcg/0.3 LNP-S, PF, 30 mcg/0.3 00:00:00 Practice mL dose mL dose (SecureAuth-BioNTech) ([employer]BioNT[employer]) COVID-19, mRNA, COVID-19, mRNA, 2020-06-12 Completed [facility] LNP-S, PF, 30 mcg/0.3 LNP-S, PF, 30 mcg/0.3 00:00:00 Practice mL dose mL dose Covid-19 Vaccine MRNA 2020-06-[address] [facility] (PF) 12yr+ 00:00:00 [facility] (Pfizer/BioNTech)(IMM 601) Covid-19 Vaccine MRNA 2020-06-[address] [facility] (PF) 12yr+ 00:00:00 Medical Center (Pfizer/BioNTech)(IMM 601) COVID-19, mRNA, COVID-19, mRNA, 2020-06-10 Completed [facility] LNP-S, PF, 30 mcg/0.3 LNP-S, PF, 30 mcg/0.3 00:00:00 Practice mL dose mL dose (Pfizer-BioNTech) (Pfizer-BioNTech) influenza, influenza, 2018-05-[address] [facility] injectable, injectable, 00:00:00 Practice quadrivalent quadrivalent influenza, influenza, 2018-05-[address] [facility] injectable, injectable, 00:00:00 Practice quadrivalent quadrivalent Influenza Three-TIV 2015-07-[address] [facility] [facility] PF 5+ YRS 00:00:00 [facility] Center Pneumococcal 2015-07-[address] [facility] Polysaccharide 00:00:00 Medical Ce nter (Pneumovax) Influenza Three-TIV 2015-07-20 Completed [facility] PF 5+ YRS 00:00:00 Medic al Center Pneumococcal 2015-07-[address] [facility] Polysaccharide 00:00:00 Medical Ce nter (Pneumovax) pneumococcal pneumococcal 2015-07-[address] [facility] polysaccharide PPV23 polysaccharide PPV23 00:00:00 Practice influenza, seasonal, influenza, seasonal, 2015-07-[address] [facility] injectable, injectable, 00:00:00 Practice preservative free preservative free Vital Signs Vital Name Observation Time Observation Value Comments Source WEIGHT 2020-08-23 05:33:00 96.662 kg HEIGHT 2020-07-07 21:47:00 172.7 cm WEIGHT 2020-07-07 21:47:00 98.1 kg WEIGHT 2020-07-05 14:58:00 98.147 kg HEIGHT 2020-02-01 00:00:00 170.2 cm WEIGHT 2020-02-01 00:00:00 90.357 kg HEIGHT 2020-01-20 00:00:00 170.2 cm WEIGHT 2020-01-20 00:00:00 98.9 kg BP Diastolic 2022-05-20 00:00:00 85 mm[Hg] [facility] Practice Height 2022-05-20 00:00:00 67 [in_i] [facility] BMI (Body Mass Index) 2022-05-20 00:00:00 36.6 kg/m2 [facility] BP Systolic 2022-05-20 00:00:00 151 mm[Hg] [facility] Body Weight 2022-05-20 00:00:00 234 [lb_av] [facility] Practice WEIGHT 2021-11-14 06:00:00 104.418 kg WEIGHT 2021-11-13 16:02:00 104.781 kg WEIGHT 2021-11-14 06:00:00 104.418 kg WEIGHT 2021-11-13 16:02:00 104.781 kg WEIGHT 2021-10-15 11:33:00 102.1 kg WEIGHT 2021-10-15 11:33:00 102.1 kg WEIGHT 2021-10-09 12:09:00 102.1 kg WEIGHT 2021-10-09 12:09:00 102.1 kg WEIGHT 2021-10-03 11:27:00 102.1 kg WEIGHT 2021-10-03 11:27:00 102.1 kg WEIGHT 2021-10-01 16:05:00 102.1 kg WEIGHT 2021-10-01 16:05:00 102.1 kg HEIGHT 2021-10-01 08:48:00 172.7 cm WEIGHT 2021-10-01 08:48:00 102.1 kg HEIGHT 2021-09-28 14:25:00 172.7 cm WEIGHT 2021-09-28 14:25:00 101.152 kg HEIGHT 2021-10-01 08:48:00 172.7 cm WEIGHT 2021-10-01 08:48:00 102.1 kg HEIGHT 2021-09-28 14:25:00 172.7 cm WEIGHT 2021-09-28 14:25:00 101.152 kg HEIGHT 2021-02-13 13:42:00 172.7 cm WEIGHT 2021-02-13 13:42:00 103.148 kg HEIGHT 2020-12-21 13:12:00 172.7 cm WEIGHT 2020-12-21 13:12:00 103.057 kg HEIGHT 2020-10-26 13:49:00 172.7 cm WEIGHT 2020-10-26 13:49:00 102.468 kg HEIGHT 2020-08-31 13:53:00 172.7 cm WEIGHT 2020-08-31 13:53:00 97.886 kg WEIGHT 2020-08-23 05:33:00 96.662 kg HEIGHT 2020-08-17 14:08:00 172.7 cm WEIGHT 2020-08-17 14:08:00 98.612 kg BP Diastolic 2020-08-02 00:00:00 76 mm[Hg] [facility] Family Practice Height 2020-08-02 00:00:00 67 [in_i] [facility] Practice BMI (Body Mass Index) 2020-08-02 00:00:00 33.5 kg/m2 [facility] Family Practice BP Systolic 2020-08-02 00:00:00 116 mm[Hg] [facility] Body Weight 2020-08-02 00:00:00 214 [lb_av] [facility] Practice HEIGHT 2020-07-24 09:38:00 172.7 cm WEIGHT 2020-07-24 09:38:00 97.07 kg HEIGHT 2020-07-24 09:38:00 172.7 cm WEIGHT 2020-07-24 09:38:00 97.07 kg HEIGHT 2020-07-12 15:42:00 172.7 cm WEIGHT 2020-07-12 15:42:00 96.163 kg HEIGHT 2020-07-12 15:42:00 172.7 cm WEIGHT 2020-07-12 15:42:00 96.163 kg HEIGHT 2020-07-07 21:47:00 172.7 cm WEIGHT 2020-07-07 21:47:00 98.1 kg WEIGHT 2020-07-05 14:58:00 98.147 kg HEIGHT 2020-06-07 13:18:00 170.2 cm WEIGHT 2020-06-07 13:18:00 97.07 kg HEIGHT 2020-04-25 13:05:00 170.2 cm WEIGHT 2020-04-25 13:05:00 95.437 kg HEIGHT 2020-03-28 13:27:00 170.2 cm WEIGHT 2020-03-28 13:27:00 91.808 kg HEIGHT 2020-03-07 13:08:00 170.2 cm WEIGHT 2020-03-07 13:08:00 92.806 kg BP Diastolic 2020-03-03 00:00:00 72 mm[Hg] [facility] Practice Height 2020-03-03 00:00:00 67 [in_i] [facility] Practice BMI (Body Mass Index) 2020-03-03 00:00:00 31.4 kg/m2 [facility] Practice BP Systolic 2020-03-03 00:00:00 118 mm[Hg] [facility] Practice Body Weight 2020-03-03 00:00:00 200.4 [lb_av] [facility] Practice HEIGHT 2020-02-22 12:31:00 170.2 cm WEIGHT 2020-02-22 12:31:00 89.948 kg HEIGHT 2020-02-15 00:00:00 170.2 cm WEIGHT 2020-02-15 00:00:00 90.538 kg HEIGHT 2020-02-10 00:00:00 170.2 cm WEIGHT 2020-02-10 00:00:00 90.583 kg HEIGHT 2020-02-01 00:00:00 170.2 cm WEIGHT 2020-02-01 00:00:00 90.357 kg HEIGHT 2020-01-27 00:00:00 170.2 cm WEIGHT 2020-01-27 00:00:00 93.486 kg HEIGHT 2020-01-20 00:00:00 170.2 cm WEIGHT 2020-01-20 00:00:00 98.9 kg Systolic blood 2021-11-14 16:45:00 131 mm[Hg] [facility] Diastolic blood 2021-11-14 16:45:00 83 mm[Hg] [facility] rate 2021-11-14 16:45:00 78 /min [facility] Body temperature 2021-11-14 16:45:00 36.61 Karen [facility] Respiratory rate 2021-11-14 16:45:00 18 /min [facility] Oxygen saturation in 2021-11-14 16:45:00 98 /min [facility] Arterial blood by Medical Ce nter Pulse oximetry Body weight 2021-11-14 06:00:00 104.418 kg [facility] BMI 2021-11-14 06:00:00 35.00 kg/m2 [facility] Body height 2021-10-01 08:48:00 172.7 cm [facility] Procedures Procedure Date / Time Performing Clinician Source Performed IR TUNNELED CATHETER 2021-11-14 14:45:00 Shemar Langley [facility] POCT-GLUCOSE METER 2021-11-14 11:11:00 Mindi Snell [facility] POCT-GLUCOSE METER 2021-11-14 07:12:00 [facility] BASIC METABOLIC PANEL 2021-11-14 05:11:00 [facility] CBC W/PLT COUNT & AUTO 2021-11-14 05:11:00 [facility] MAGNESIUM 2021-11-14 05:11:00 [facility] BK VIRUS PCR, PLASMA 2021-11-14 05:11:00 [facility], [facility]ANTITAT[facility] 2021-11-14 05:11:00 [facility] PROTHROMBIN TIME/INR 2021-11-14 05:11:00 aliakjaimie [facility] APTT 2021-11-14 05:11:00 aliakjaimie [facility] TACROLIMUS LEVEL 2021-11-14 05:11:00 [facility] W/PLT COUNT & AUTO 2021-11-14 05:11:00 [facility] POCT-GLUCOSE METER 2021-11-13 21:40:00 [facility] PROTEIN, RANDOM URINE 2021-11-13 19:11:00 [facility] CREATININE, RANDOM URINE 2021-11-13 19:11:00 [facility] POCT-GLUCOSE METER 2021-11-13 17:31:00 [facility] BASIC METABOLIC PANEL 2021-11-13 16:42:00 [facility] CBC W/PLT COUNT & AUTO 2021-11-13 16:42:00 [facility] MAGNESIUM 2021-11-13 16:42:00 [facility] HEMOGLOBIN A1C 2021-11-13 16:42:00 [facility], [facility] CBC W/PLT COUNT & AUTO 2021-11-13 16:42:00 [facility], [facility] DIFFERENTIAL [facility] SARS-COV2/RT-PCR ([facility] & 2021-11-13 12:11:00 [facility], [facility] REF LABS) [facility] PLASMA EXCHANGE 2021-10-15 13:44:00 Celia English [facility] PLASMA EXCHANGE 2021-10-11 13:04:[address] [facility] PLASMA EXCHANGE 2021-10-11 13:03:41 [facility] PLASMA EXCHANGE 2021-10-05 14:10:00 Celia English [facility] PLASMA EXCHANGE 2021-10-03 13:49:00 Ajay Rizo [facility] PROCEDURE, IN 2021-10-01 18:00:00 Virtual, Surgeon [facility] NON-OPERATING ROOM SETTING [facility] IR CV ACCESS FLUORO 2021-10-01 12:33:00 [facility] CBC W/PLT COUNT & AUTO 2021-10-01 10:30:[address] [facility] PROTHROMBIN TIME/INR 2021-10-01 10:30:00 Norma Rosas [facility] BASIC METABOLIC PANEL 2021-10-01 10:30:00 Demetrius Law [facility] CBC W/PLT COUNT & AUTO 2021-10-01 10:30:[address] [facility] POCT-GLUCOSE METER 2021-10-01 10:27:00 [facility] POCT , URINE 2021-10-01 10:12:00 Norma Rosas [facility] Transplant of Kidney 2014-04-11 00:00:00 [facility] Hysterectomy (Total) 2011-10-11 00:00:00 [facility] Practice Laparoscopic 1995-05-12 00:00:00 [facility] Fami ly Cholecystectomy Practice Plan of Care Planned Activity Planned Date Details Comments Source Future Scheduled 2028-02-[address] [facility] 00:[facility] Center colon (procedure) [code = 000221294] Future Scheduled 2028-02-[address] [facility] 00:00:00 [facility] colon (procedure) [code = 034833466] Future Scheduled 2028-02-[address] [facility] 00:00:00 [facility] Center colon (procedure) [code = 336926561] Future Scheduled 2028-02-[address] [facility] 00:00:00 malignant [facility] Center colon (procedure) [code = 501640220] Future Scheduled 2023-01-10 Influenza Vaccine (#1) [facility] 00:00:00 [code = Influenza Medical Ce nter Vaccine (#1)] Future Scheduled 2022-09-[address] [facility] Test 00:00:00 [facility] (12+) [code = Tobacco Cessation Counseling and Screening (12+)] Future Scheduled 2022-09-[address] [facility] Test 00:00:00 [facility] Scre[facility] (12+) [code = Tobacco Cessation Counseling and Screening (12+)] Diagnostic Test 2022-05-20 hemoglobin A1C, [facility] F amily Pending 00:00:00 fingerstick [code = Practice hemoglobin A1C, fingerstick] Diagnostic Test 2022-05-20 glucose, fingerstick, [facility] Pending 00:00:00 blood [code = glucose, Pract ice fingerstick, blood] Diagnostic Test 2022-05-20 CMP, serum or plasma Vill age Family Pending 00:00:00 [code = CMP, serum or Practi ce plasma] Diagnostic Test 2022-05-20 CBC w/ auto diff [code Vi llage Family Pending 00:00:00 = CBC w/ auto diff] Practice Diagnostic Test 2022-05-20 lipid panel, serum Villag e Family Pending 00:00:00 [code = lipid panel, Practic e serum] Diagnostic Test 2022-05-20 TSH, serum or plasma [facility] Family Pending 00:00:00 [code = TSH, serum or Practi ce plasma] Diagnostic Test 2022-05-20 T4, free, serum [code [facility] Pending 00:00:00 = T4, free, serum] Practice Diagnostic Test 2022-05-20 microalbumin/creatinin Vi ll[facility] Family Pending 00:00:00 e, mass ratio, urine Practic e [code = microalbumin/creatinin e, mass ratio, urine] Diagnostic Test 2022-05-20 diabetes panel, serum [facility] Pending 00:00:00 [code = diabetes Practice panel, serum] Diagnostic Test 2022-05-20 C-peptide, serum [code Vi ll[facility] Family Pending 00:00:00 = C-peptide, serum] Practice Future Scheduled 2022-05-[address] [facility] Test 00:00:00 (12+) [code = [facility] DEPRESSION SCREENING (12+)] Future Scheduled 2022-02-[address] [facility] 00:00:00 (procedure) [code = [facility] [id number]] Future Scheduled 2022-02-[address] [facility] 00:00:00 (procedure) [code = [facility] [id number]] Future Scheduled 2022-01-10 INFLUENZA VACCINE (#1) [facility] 00:00:00 [code = INFLUENZA [facility] nter VACCINE (#1)] Future Scheduled 2021-05-[address] [facility] Test 00:00:00 (12+) [code = [facility] DEPRESSION SCREENING (12+)] Future Scheduled 2020-08-[address] [facility] 00:00:00 [facility] (procedure) [code = 59286603] Future Scheduled 2020-08-[address] [facility] 00:00:00 [facility] (procedure) [code = 55435909] Future Scheduled 2020-07-01 COVID-19 VACCINE (2 - [facility] 00:00[facility]00 Pfizer risk series) [facility] [code = COVID-19 VACCINE (2 - Pfizer risk series)] Future Scheduled 2020-07-01 COVID-19 VACCINE (2 - [facility] 00:00:00 Pfizer risk series) Medical Center [code = COVID-19 VACCINE (2 - Pfizer risk series)] Future Scheduled 2020 SHINGLES VACCINES ([address] [facility] Test 00:00:00 of 2) [code = SHINGLES Medic al Center VACCINES (1 of 2)] Future Scheduled 2019-02-[address] [facility] 00:00:00 malignant neoplasm of Medica l Center colon (procedure) [code = 294019481] Future Scheduled 2019-02-[address] [facility] 00:00:00 malignant neoplasm of Medica [facility] Center colon (procedure) [code = 591627358] Future Scheduled 2016-07-[address] [facility] Test 00:00:00 0-64 YRS (2 - PCV) Medical C enter [code = PNEUMOCOCCAL VACCINE 0-64 YRS (2 - PCV)] Future Scheduled 2016-01-[address] [facility] 00:00:00 malignant [facility]oplasm of Medica [facility] Center breast (procedure) [code = 158995180] Future Scheduled 2016-01-[address] [facility] 00:00:00 malignant neoplasm of Medica [facility] Center breast (procedure) [code = 969141145] Future Scheduled 2013-03-[address] [facility] 00:00:00 WELLNESS (YEAR 2 or Medical Center FIRST YEAR if no IPPE) [code = MEDICARE ANNUAL WELLNESS (YEAR 2 or FIRST YEAR if no IPPE)] Future Scheduled 2013-03-[address] [facility] 00:00:00 WELLNESS (YEAR 2 or Medical Center FIRST YEAR if no IPPE) [code = MEDICARE ANNUAL WELLNESS (YEAR 2 or FIRST YEAR if no IPPE)] Future Scheduled [address] [facility] 00:00:00 malignant neoplasm of Medica [facility] Center cervix (procedure) [code = 476290078] Future Scheduled [address] [facility] 00:00:00 malignant neoplasm of Medica l Center cervix (procedure) [code = 314761574] Future Scheduled 1989 DTAP/TDAP/TD VACCINES [facility] 00:00:00 (1 - Tdap) [code = Medical C enter DTAP/TDAP/TD VACCINES (1 - Tdap)] Future Scheduled 1989 DTAP/TDAP/TD VACCINES [facility] 00:00:00 (1 - Tdap) [code = Medical C enter DTAP/TDAP/TD VACCINES (1 - Tdap)] Future Scheduled 1989 SHINGLES VACCINES ([address] [facility] Test 00:00:00 of 2) [code = SHINGLES Medic al Center VACCINES (1 of 2)] Future Scheduled [address] EYE EXAM [facility] 00:00:00 [code = DIABETIC EYE Medical Center EXAM] Future Scheduled [address] [facility] 00:00:00 examination Medical Center (regime/therapy) [code = 041284807] Future Scheduled 1980 Urine screening for [facility] Test 00:00:00 protein (procedure) Medical Center [code = 764156306] Future Scheduled 1980 DIAB[address]IC EYE EXAM [facility] 00:00:00 [code = DIABETIC EYE Medical Center EXAM] Future Scheduled [address] [facility] 00:00:00 examination Medical Center (regime/therapy) [code = 236395569] Future Scheduled 1980 Urine screening for [facility] Test 00:00:00 protein (procedure) Medical Center [code = 541904707] Future Scheduled [address] [facility] 00:00:00 (combo) [code = CT Medical C enter Colonography (combo)] Future Scheduled [address] [facility] 00:00:00 malignant neoplasm of Medica l Center colon (procedure) [code = 685095810] Future Scheduled 1970 Sigmoidoscopy [code = [facility] Sigmoidoscopy] Medical [place] Future Scheduled [address] [facility] 00:00:00 (combo) [code = CT Medical C enter Colonography (combo)] Future Scheduled [address] [facility] 00:00:00 malignant neoplasm of Medica l Center colon (procedure) [code = 700995702] Future Scheduled 1970 Sigmoidoscopy [code = [facility] 00:[facility] Sigmoidoscopy] Medical Cente r Encounters Start End Encounter Admission Attending Care Care Encounter Source Date/Time Date/Time Type Type Clinicians Facility Department ID 2021-02-14 Inpatient [facility] Surgery [id number] SLE 06:36:27 2020-08-22 Inpatient UR [facility] Transplant [id number] SLE 19:40:00 CHENTE 2020-07-05 Inpatient EL [facility] Surgery [id number] SLE 14:45:00 2020-02-01 Inpatient ER ISABEL [facility] Transplant [id number] SLEH 22:14:00 SHEMAR 2020-01-20 Inpatient [facility] Med [id number] SLE 17:00:00 2022-09-26 2022-09-26 Outpatient AVNI MORALES MARIE [id number] Marie 15:15:00 15:15:00 Seybol d 2022-08-22 2022-08-22 Outpatient AVNI MORALES MARIE [id number] Marie 15:15:00 15:15:00 Seybol d 2022-05-20 2022-05-20 Outpatient Daniel_T VFP VFP [id number] [address] [place] [address] 00:00:00 00:00:00 [id number] Family Practic e 2022-05-20 2022-05-20 Outpatient Daniel_T VFP VFP [id number] [address] [place] [address] 00:00:00 00:00:00 [id number] Family Practic e 2022-05-20 2022-05-20 Outpatient Daniel_T VFP VFP [id number] 20 [facility] 00:00:00 00:00:00 [id number] Family Practic e 2022-05-20 2022-05-20 Fredi VFP [place] - [id number] V illage 00:00:00 00:00:00 [facility] DevlinGabino - Jyoti cano MD: [id number] [place] - e Shadow VM_[facility] [address], [place] [address] , Ph. 2022-04-14 2022-04-14 Outpatient Daniel_T VFP VFP [id number] [facility] 00:00:00 00:00:00 [id number] Family Practic e 2022-03-10 2022-03-10 Outpatient Daniel_T VFP VFP [id number] [facility] 00:00:00 00:00:00 [id number] Family Practic e 2021-11-13 2021-11-14 Outpatient DIEGO [facility] [id number] SLEH 15:44:00 18:01:00 [facility] 2021-11-13 2021-11-14 [facility], [facility] [id number] 15:44:00 18:01:00 Encounter [facility] 2021-11-13 2021-11-13 Clinical [facility] [id number] [facility] 11:45:00 12:00:00 Support Brennan [facility] 2021-11-13 2021-11-13 Outpatient [facility] [id number] SLE 11:38:40 11:38:40 2021-11-13 2021-11-13 [facility] [id number] 00:00:00 00:00:00 Only [facility] 2021-10-15 2021-10-15 [facility] Ajay Rizo [facility] [id number] 11:17:00 13:44:00 Encounter [facility] 2021-10-15 2021-10-15 Outpatient AJAY [facility] Nephrology [id number] SLE 00:00:00 13:44:00 2021-10-11 2021-10-11 [facility] Leti Urena [facility] [id number] 11:27:00 13:04:00 Encounter Ajay Rizo [facility] [facility] 2021-10-11 2021-10-11 Outpatient BRENDA [facility] Nephrology 2 [id number] SLE 00:00:00 13:04:00 [facility] 2021-10-09 2021-10-09 [facility] [id number] [facility] 12:12:00 14:18:00 Encounter Darrius [facility] 2021-10-09 2021-10-09 Outpatient DIEGO URENA, SLE Nephrology 2 [id number] [facility]H 00:00:00 14:18:00 [facility] 2021-10-05 2021-10-05 [facility] [id number] [facility] 11:20:00 14:10:00 Encounter [facility] 2021-10-05 2021-10-05 Outpatient BRENDA SLE Nephrology 2 [id number] SLEH 00:00:00 14:10:00 [facility] 2021-10-03 2021-10-03 [facility] [id number] [facility] 11:05:00 13:49:00 Encounter Darrius [facility] 2021-10-03 2021-10-03 Outpatient UR BRENDA SLE Nephrology 2 [id number] SLEH 00:00:00 13:49:00 [facility] 2021-10-01 2021-10-01 [facility] [id number] [facility] 15:54:00 17:56:[address] [facility] 2021-10-01 2021-10-01 Outpatient BRENDA, SLE Nephrology 2 [id number] SLEH 00:00:00 17:56:00 [facility] 2021-10-01 2021-10-01 Outpatient UR JAMIE SLE Surgery [id number] SLEH 08:20:00 15:40:00 JESICA VALENZUELA 2021-10-01 2021-10-01 [facility] UR Jamie [facility] [id number] 08:20:00 15:40:00 Encounter janae [facility] 2021-10-01 2021-10-01 Surgery Virtual, [facility] [id number] [facility] [facility] 10:00:00 10:30:00 Surgeon [facility] 2021-10-01 2021-10-01 Outpatient KWASI HELMS SLE [id number] SLEH 08:30:02 08:30:02 [facility] 2021-10-01 2021-10-01 Travel [facility] [id number] [facility] 00:[facility]00 00:00:00 [facility] 2021-09-28 2021-09-28 Outpatient EL SLE SLE [id number] SLEH 14:20:50 23:59:00 2021-09-28 2021-09-28 [facility] [id number] [facility] 13:40:00 23:59:00 [facility] 2021-09-28 2021-09-28 Travel [facility] [id number] [facility] 00:[facility]:00 00:00:00 [facility] 2021-09-20 2021-09-20 Outside [facility], [facility] [id number] 00:00:00 00:00:00 Orders [facility] 2021-09-13 2021-09-13 Outpatient Daniel_T VFP VFP [id number] 5-20 [facility] 10:40:00 10:40:00 [id number] Family Practic e 2021-09-13 2021-09-13 Outpatient Daniel_T VFP VFP [id number] 5-20 [facility] 10:40:00 10:40:00 [id number] Family Practic e 2021-09-05 2021-09-05 Telephone Maribell, [facility] [id number] 00:00:00 00:00:[address] [facility] 2021-08-28 2021-08-28 Telephone Maribell, [facility] [id number] 00:00:00 00:00:[address] [facility] 2021-05-16 2021-05-16 Outpatient EL SLE SLEH [id number] SLEH 00:00:00 00:00:00 2021-04-16 2021-04-16 Outpatient EL SLEH SLEH [id number] SLEH 09:32:44 09:32:44 2021-03-22 2021-03-22 Outpatient EL SLEH SLEH [id number] SLEH 09:23:29 09:23:29 2021-03-16 2021-03-16 Outpatient EL SLEH SLEH [id number] SLEH 00:00:00 00:00:00 2021-03-01 2021-03-01 Outpatient EL SLEH SLEH [id number] SLEH 08:15:28 08:15:28 2021-02-15 2021-02-15 Outpatient SLEH SLEH [id number] SLEH 00:00:00 00:00:00 2021-02-15 2021-02-15 Outpatient EL SLEH SLEH [id number] SLEH 00:00:00 00:00:00 2021-02-13 2021-02-13 Outpatient EL TIMSULAIMAN, SLE SLEH [id number] SLEH 09:42:43 09:42:43 SHEMAR 2021-02-13 2021-02-13 Outpatient EL SLEH SLEH [id number] SLEH 09:42:18 09:42:18 2021-01-22 2021-01-22 Outpatient EL SLEH SLEH [id number] SLEH 00:00:00 00:00:00 2021-01-18 2021-01-18 Outpatient EL SLEH SLEH [id number] SLEH 00:00:00 00:00:00 2020-12-21 2020-12-21 Outpatient SLEH SLEH [id number] SLEH 00:00:00 00:00:00 2020-12-21 2020-12-21 Outpatient EL SLEH SLEH [id number] SLEH 00:00:00 00:00:00 2020-12-07 2020-12-07 Outpatient SLEH SLEH [id number] SLEH 00:00:00 00:00:00 2020-11-23 2020-11-23 Outpatient EL SLEH SLEH [id number] SLEH 00:00:00 00:00:2020-11-16 2020-11-16 Outpatient SLEH SLEH [id number] SLEH 00:00:00 00:00:00 2020-11-16 2020-11-16 Outpatient SLEH SLEH [id number] SLEH 00:00:00 00:00:00 2020-11-09 2020-11-09 Outpatient SLEH SLEH [id number] SLEH 00:00:00 00:00:00 2020-11-02 2020-11-02 Outpatient EL SLEH SLEH [id number] SLEH 00:00:00 00:00:00 2020-10-26 2020-10-26 Outpatient SLEH SLEH [id number] SLEH 00:00:00 00:00:00 2020-10-26 2020-10-26 Outpatient EL SLEH SLEH [id number] SLEH 00:00:00 00:00:00 2020-10-12 2020-10-12 Outpatient EL SLEH SLEH [id number] SLEH 00:00:00 00:00:00 2020-10-05 2020-10-05 Outpatient EL SLEH SLE [id number] SLEH 00:00:00 00:00:00 2020-09-28 2020-09-28 Outpatient EL SLEH SLEH [id number] SLEH 00:00:00 00:00:00 2020-09-18 2020-09-18 Outpatient EL SLEH SLEH [id number] SLEH 00:00:00 00:00:00 2020-09-14 2020-09-14 Outpatient EL SLEH SLEH [id number] SLEH 00:00:00 00:00:00 2020-08-31 2020-08-31 Outpatient SLEH SLEH [id number] SLEH 00:00:00 00:00:00 2020-08-31 2020-08-31 Outpatient EL SLEH SLEH [id number] SLEH 00:00:00 00:00:00 2020-08-31 2020-08-31 Outpatient EL SLEH SLEH [id number] SLEH 00:00:00 00:00:00 2020-08-30 2020-08-30 Outpatient Claus_T VFP P [id number] 5-20 Village 01:02:00 01:02:00 [id number] Family Practic e 2020-08-30 2020-08-30 Outpatient Daniel_T VFP VFP [id number] [facility] 01:02:00 01:02:00 [id number] Family Practic e 2020-08-29 2020-08-29 Outpatient EL TIMMINS, SLEH SLEH [id number] SLEH 00:00:00 00:00:00 SHEMAR 2020-08-22 2020-08-22 Outpatient EL TIMMINS, SLEH SLEH [id number] SLEH 13:32:46 19:39:00 SHEMAR 2020-08-18 2020-08-18 Outpatient SLEH SLEH [id number] SLEH 00:00:00 00:00:00 2020-08-18 2020-08-18 Outpatient TIMMINS, SLEH SLEH [id number] SLEH 00:00:00 00:00:00 SHEMAR 2020-08-18 2020-08-18 Outpatient TIMMINS, SLEH SLEH [id number] SLEH 00:00:00 00:00:00 SHEMAR 2020-08-17 2020-08-17 Outpatient SLEH SLEH [id number] SLEH 00:00:00 00:00:00 2020-08-17 2020-08-17 Outpatient SLEH SLEH [id number] SLEH 00:00:00 00:00:00 2020-08-17 2020-08-17 Outpatient EL TIMMINS, SLEH SLEH [id number] SLEH 00:00:00 00:00:00 SHEMAR 2020-08-17 2020-08-17 Outpatient TIMMINS, SLEH SLEH [id number] SLEH 00:00:00 00:00:00 SHEMAR 2020-08-05 2020-08-05 Outpatient Daniel_T VFP VFP [id number] [address] [place] [address] 12:46:00 12:46:00 [id number] Family Practic e 2020-08-03 2020-08-03 Outpatient EL SLEH SLEH [id number] SLEH 00:00:00 00:00:00 2020-08-02 2020-08-02 Outpatient Daniel_T VFP VFP [id number] [address] [place] [address] 04:36:00 04:36:00 [id number] Family Magda emanuel 2020-08-02 2020-08-02 Fredi [facility] [place] - [id number] V illage 00:00:00 00:00:00 [facility] Devlin Gabino - Jyoti cano MD: [id number] VM_HOU_Shad e Shadow [facility], [address], [place] [address] , Ph. 2020-08-01 2020-08-01 Outpatient EL SLEH SLEH [id number] SLEH 00:00:00 00:00:00 2020-07-27 2020-07-27 Outpatient SLEH SLEH [id number] SLEH 00:00:00 00:00:00 2020-07-27 2020-07-27 Outpatient EL SLEH SLEH [id number] SLEH 00:00:00 00:00:00 2020-07-26 2020-07-26 Outpatient Jw [facility] [id number] [address] [place] [address] 03:59:00 03:59:00 [id number] Family Magda emanuel 2020-07-24 2020-07-24 Outpatient DIEGO LANGLEY, SLE SLEH [id number] SLEH 00:00:00 00:00:00 SHEMAR 2020-07-21 2020-07-21 Outpatient AJAY IRZO SLE SLEH [id number] SLEH 00:00:00 00:00:00 2020-07-20 2020-07-20 Outpatient SLEH SLEH [id number] SLEH 00:00:00 00:00:00 2020-07-20 2020-07-20 Outpatient SLEH SLEH [id number] SLEH 00:00:00 00:00:00 2020-07-20 2020-07-20 Outpatient AJAY PARKER SLE SLEH [id number] SLEH 00:00:00 00:00:00 2020-07-19 2020-07-19 Outpatient AJAY RIZO SLE SLEH [id number] SLEH 00:00:00 00:00:00 2020-07-18 2020-07-18 Outpatient AJAY PARKER SLEH [id number] SLEH 00:00:00 00:00:00 2020-07-14 2020-07-14 Outpatient KWASI TERRELL [facility] [id number] SLEH 15:33:00 15:33:00 [facility] 2020-07-14 2020-07-14 Outpatient AJAY RIZO SLE SLEH [id number] SLEH 00:00:00 00:00:00 2020-07-12 2020-07-12 Outpatient AJAY PARKER SLE SLE [id number] SLEH 00:00:00 00:00:00 2020-07-10 2020-07-10 Outpatient DIEGO ECKERT SLE SLE [id number] SLEH 00:00:00 00:00:00 VALENCIA 2020-07-10 2020-07-10 Outpatient AJAY PARKER SLE SLE [id number] SLEH 00:00:00 00:00:00 2020-07-06 2020-07-06 Outpatient SLE SLE [id number] SLEH 00:00:00 00:00:00 2020-07-06 2020-07-06 Outpatient DIEGO SLE SLEH [id number] SLEH 00:00:00 00:00:00 2020-06-30 2020-06-30 Outpatient DIEGO SLE SLE [id number] SLEH 00:00:00 00:00:00 2020-06-30 2020-06-30 Outpatient DIEGO SLE SLE [id number] SLEH 00:00:00 00:00:00 2020-06-28 2020-06-28 Outpatient SLE SLEH [id number] SLEH 00:00:00 00:00:00 2020-06-28 2020-06-28 Outpatient DIEGO SLE SLE [id number] SLEH 00:00:00 00:00:00 2020-06-20 2020-06-20 Outpatient Jw AVILA P [id number] 5-20 Village 01:03:00 01:03:00 [id number] Family Practic e 2020-06-20 2020-06-20 Outpatient KWASI TERRELL [facility] [id number] SLEH 00:00:00 00:00:00 SHEMAR 2020-06-20 2020-06-20 Outpatient EL SLEH SLEH [id number] SLEH 00:00:00 00:00:00 2020-06-14 2020-06-14 Outpatient EL SLEH SLEH [id number] SLEH 00:00:00 00:00:00 2020-06-10 2020-06-10 Outpatient SLEH SLEH [id number] SLEH 00:00:00 00:00:00 2020-06-07 2020-06-07 Outpatient SLEH SLEH [id number] SLEH 00:00:00 00:00:00 2020-06-07 2020-06-07 Outpatient EL SLEH SLEH [id number] SLEH 00:00:00 00:00:00 2020-06-01 2020-06-01 Outpatient SLEH SLEH [id number] SLEH 00:00:00 00:00:00 2020-06-01 2020-06-01 Outpatient EL SLEH SLEH [id number] SLEH 00:00:00 00:00:00 2020-05-23 2020-05-23 Outpatient SLEH SLEH [id number] SLEH 00:00:00 00:00:00 2020-05-23 2020-05-23 Outpatient SLEH SLEH [id number] SLEH 00:00:00 00:00:00 2020-05-16 2020-05-16 Outpatient Daniel_T VFP VFP [id number] 5-20 Village 01:10:00 01:10:00 [id number] Family Practic e 2020-05-09 2020-05-09 Outpatient SLEH SLEH [id number] SLEH 00:00:00 00:00:00 2020-04-25 2020-04-25 Outpatient SLEH SLEH [id number] SLEH 00:00:00 00:00:00 2020-04-25 2020-04-25 Outpatient SLEH SLEH [id number] SLEH 00:00:00 00:00:00 2020-04-17 2020-04-17 Outpatient EL SLEH SLEH [id number] SLEH 00:00:00 00:00:00 2020-04-11 2020-04-11 Outpatient Daniel_T VFP VFP [id number] [address] [place] [address] 01:03:00 01:03:00 Family Practic e 2020-04-11 2020-04-11 Outpatient SLEH SLEH [id number] SLEH 00:00:00 00:00:00 2020-04-04 2020-04-04 Outpatient EL SLEH SLEH [id number] SLEH 00:00:00 00:00:00 2020-03-28 2020-03-28 Outpatient EL SLEH SLEH [id number] SLEH 00:00:00 00:00:00 2020-03-28 2020-03-28 Outpatient SLEH SLEH [id number] SLEH 00:00:00 00:00:00 2020-03-28 2020-03-28 Outpatient SLEH SLEH [id number] SLEH 00:00:00 00:00:00 2020-03-17 2020-03-17 Outpatient EL SLEH SLEH [id number] SLEH 00:00:00 00:00:00 2020-03-14 2020-03-14 Outpatient Claus_T VFP VF [id number] [address] [place] [address] 09:45:00 09:45:00 Family Practic e 2020-03-14 2020-03-14 Outpatient EL SLEH SLEH [id number] SLEH 00:00:00 00:00:00 2020-03-07 2020-03-07 Outpatient SLEH SLEH [id number] SLEH 00:00:00 00:00:00 2020-03-07 2020-03-07 Outpatient SLEH SLEH [id number] SLEH 00:00:00 00:00:00 2020-03-03 2020-03-03 Outpatient Claus_T VFP [facility] [id number] [address] [place] [address] 04:19:00 04:19:00 [id number] Family Practic e 2020-03-03 2020-03-03 Fredi [facility] [place] - [id number] V illage 00:00:00 00:00:00 [facility] Gabino Wei - Jyoti cano MD: [id number] VM_HOU_Dani e Shadow [address] [address] , Ph. 2020-02-29 2020-02-29 Outpatient EL SLEH SLEH [id number] SLEH 00:00:00 00:00:00 2020-02-22 2020-02-22 Outpatient SLEH SLEH [id number] SLEH 00:00:00 00:00:00 2020-02-22 2020-02-22 Outpatient EL SLEH SLEH [id number] SLEH 00:00:00 00:00:00 2020-02-15 2020-02-15 Outpatient SLEH SLEH [id number] SLEH 00:00:00 00:00:00 2020-02-15 2020-02-15 Outpatient SLEH SLEH [id number] SLEH 00:00:00 00:00:00 2020-02-10 2020-02-10 Outpatient SLEH SLEH [id number] SLEH 00:00:00 00:00:00 2020-02-10 2020-02-10 Outpatient EL SLEH SLEH [id number] SLEH 00:00:00 00:00:00 2020-02-08 2020-02-08 Outpatient SLEH SLEH [id number] SLEH 00:00:00 00:00:00 2020-02-08 2020-02-08 Outpatient SLEH SLEH [id number] SLEH 00:00:00 00:00:00 2020-02-08 2020-02-08 Outpatient EL SLEH SLEH [id number] SLEH 00:00:00 00:00:00 2020-02-03 2020-02-03 Outpatient EL SLEH SLEH [id number] SLEH 00:00:00 00:00:00 2020-02-01 2020-02-01 Outpatient SLEH SLEH [id number] SLEH 00:00:00 00:00:00 2020-02-01 2020-02-01 Outpatient SLEH SLEH [id number] SLEH 00:00:00 00:00:00 2020-01-27 2020-01-27 Outpatient EL SLEH SLEH [id number] SLEH 00:00:00 00:00:00 2020-01-27 2020-01-27 Outpatient EL SLEH SLEH [id number] SLEH 00:00:00 00:00:00 2020-01-18 2020-01-18 Outpatient SLEH SLEH [id number] SLEH 00:00:00 00:00:00 2020-01-12 2020-01-12 Outpatient Daniel_T VFP P [id number] 5-20 [facility] 10:47:00 10:47:00 [id number] Family Practic e 2019-09-29 2019-09-29 Outpatient EL [facility] [id number] SLE 00:00:00 00:00:00 2019-09-23 2019-09-23 Outpatient [facility] [id number] SLE 00:00:00 00:00:00 [id number] 2019-09-23 2019-09-23 Outpatient EL LURDES, [facility] [id number] SLEH 00:00:00 00:00:00 RISE 2019-09-21 2019-09-21 Outpatient [facility] [id number] SLE 14:26:13 14:26:13 2019-07-21 2019-07-21 Outpatient [facility] [id number] SLE 11:26:43 11:26:43 [id number] Results Test Description Test Time Test Comments Results Result Comments Source Hemoglobin A1c measurement device panel 2022-05-20 15:27:32 Test Item Value Reference Range Interpretation Comme nts Hemoglobin A1c/Hemoglobin.total in Blood (test code = 4548-4) 7.8 % 5.7-6.4 [facility] in Capillary [id number] 15:23:39 Test Item Value Reference Range Interpretation Comments Blood Glucose: mg/dl (test code = Blood 110 Glucose: mg/dl) [facility] PCR, [id number] 13:52:39 Test Item Value Reference Range Interpretation Comments BK VIRUS, Negative or below See_Comment [Automate d message] PLASMA, NEG the linear range The system which (BEAKER) (test of the assay generated thi s result code = 2145) (<1,000 copies/mL) transmitt ed reference range: <1,000 - >1,000,000 copi es/mL. The reference r bernie was not used to interpret this result as normal/abnor mal. Patients may have replicating BK Virus which is of no clinical significance. Viral load measurementsare helpful to identify BK Virus replication of potential clinical significance. Consensus recommendations have been published of threshold values for the presumptive diagnosis of polyomavirus-associated nephropathy (Transplantation 2005;79:4287-1269).A BK Virus load greater than 5,000-10,000 copies/mL in the plasma is consistent with the presumptive diagnosis of polyoma-associated nephropathy in renal transplant recipients.BK Virus DNA was assessed using quantitative polymerase chain reaction and fl uorescent monitoring of a specific hybridized probe. Genetic variation and other factors can affect the accuracy of nucleic acid testing. Therefore, the results should be interpreted in light of clinical data.This test was developed and its performance characteristics determined by the [facility] Pathology Department, Section of Molecular Pathology. It has not been cleared or approved by the U.S. Food and Drug Administration (FDA). Since FDA approval is not required for clinical use of the test, validation was done as required by the Clinical Laboratory Improvement Amendments of 1988.ANG, REMOVAL OF TUNNELED CVC W/O [id number] 12:40:00Dialysis 05/23 Reason for exam:->REMOVAL OF TDC- PLASMAPHERESIS THERAPY COMPLETED Anesthesia:->None [facility] 1970 Sex: FFINAL REPORT Exam: Tunnel Catheter Removal, right IJ Clinical History: Completion of Plex Complication: None Procedure: The right upper chest and right neck was prepped and draped in usual sterile fashion. 2% lidocaine was used as local anesthetic. The tunnel catheter was removed with blunt dissection. Hemostasis was achieved. The patient tolerated the procedure well without any ad verse reaction and left the department in stable condition. Impression: Successful tunnel catheter removal. Signed: Aguilar Morales MDReport Verified Date/Time: 11/15/2021 12:40:52 Reading Location: [address] Ultrasound Reading Room CMV PCR, [id number] 12:44:19 Test Item Value Reference Range Interpretation Comments CMV VIRAL LOAD - Negative or below See_Comment [Auto mated message] NEGATIVE (ESTRELLA) the linear range The sy stem which (test code = of the assay generated this 2558) (<300 IU/mL) result transmit marline reference range : <300 - >3,00 0,000 IU/mL. The refe rence range was not u sed to interpret th is result as normal/abnormal . Cytomegalovirus (CMV) infection can cause significant disease in immunosuppressed patients. However,it is common for CMV to manifest as a limited infection which is of no clinical significance in immunosuppressed patients or in healthy individuals.Viral load measurements are helpful to identify clinical CMV infection and to guide the pre-emptive management of antiviral therapy. For treatment of CMV infection due to reactivation in transplant recipients, a threshold between 4,000 and 5,000 copies/mLis suggested. For treatment of primary CMV infection, a lower threshold can be used.CMV infection may also be monitored using weekly serial measurements. Serial measurements of CMV DNA viral load can be evaluated by identifying a 10-fold change, as [...] and its performance characteristics determined by the [facility] Pathol ogy Department, Section of Molecular Pathology. It has not been cleared or approved by the U.S. Foodand Drug Administration (FDA), since FDA approval is not required for clinical use of the test. Validation was done as required by The Clinical Laboratory Improvement Amendments of 1988.POC-Glucose meter 2021-11-14 11:22:38 Test Item Value Reference Range Interpretation Comments POC-Glucose Meter (test 283 mg/dL 70-110 H : TE STED AT [facility] code = 1538) [address] [facility], 770 30: Family Service Aide/Techni martita ID = [id number] for Tereso Mccarthy Lab Interpretation (test Abnormal code = 14293-1) [facility] [id number] 11:22:38 Test Item Value Reference Range Interpretation Comments POC-GLUCOSE METER 283 mg/dL 70-110 H : TESTED A T [facility] 6720 (BEAKER) (test code = [facility], 1538) [address]: Family Service Aide/Techni martita ID = [id number] for Debbie Dumont TACROLIMUS [id number] 10:39:15 Test Item Value Reference Range Interpretation Comments TACROLIMUS BLOOD 9.7 ng/mL 10.0-20.0 L Test perfor med on Jaffe (BEAKER) (test code Architec t Immunoassay = 657) system with Chemiluminescen t Microparticle I mmunoassay (CMIA) technolo gy. Family Service Aide ID - MOHEMOGLOBIN [id number] 09:33:18 Test Item Value Reference Range Interpretation Comments HEMOGLOBIN A1C 7.4 % See_Comment H [Automated m essage] ELECTROPHORESIS (BEAKER) The system which (test code = 3811) generated this result transmitted ref erence range: <=5.6%. The reference range was not used to int erpret this result as normal/abnormal . "The A1c is measured using a NGSP-certified method. HbA1c value equal to or greater than 6.5% as thediagnosis cutoff for diabetes. An HbA1c value of 5.7- 6.4% indicates increased risk for diabetes (prediabetes)."Family Service Aide ID - ADMPOCT- GLUCOSE [id number] 07:23:40 Test Item Value Reference Range Interpretation Comments POC-GLUCOSE METER 230 mg/dL 70-110 H : TESTED A T [facility] 6720 (BEAKER) (test code = [facility], 1538) [address]: Family Service Aide/Techni martita ID = [id number] for Dumont, Debbie BASIC METABOLIC [id number] 07:17:17 Test Item Value Reference Range Interpretation Comments [...] 0.57-1.25 (test code = 358) GLUCOSE RANDOM 186 mg/dL 70-105 H (BEAKER) (test code = 652) CALCIUM (BEAKER) 9.4 mg/dL 8.4-10.2 (test code = 697) EGFR (BEAKER) (test 52 mL/min/1.73 ESTIMA MARLINE GFR IS code = 1092) sq m NOT ACCURATE CREATININE CLEARANCE IN PREDICTING GLOMERULAR FILTRATION RATE . ESTIMATED GFR I S NOT APPLICABLE FOR DIALYSIS PATIEN TS. Family Service Aide ID - CHETANSTEPHY [id number] 07:17:17 Test Item Value Reference Range Interpretation Comments MAGNESIUM (BEAKER) (test code = 1.6 mg/dL 1.6-2.6 627) Family Service Aide ID - CHETANSTEPHY LCBC W/PLT COUNT & AUTO [id number] 06:52:45 Test Item Value Reference Range Interpretation Comments WHITE BLOOD CELL COUNT (BEAKER) 12.1 K/ L 3.5-10.5 H (test code = 775) RED BLOOD CELL COUNT (BEAKER) 4.08 M/ L 3.93-5.22 (test code = 761) HEMOGLOBIN (BEAKER) (test code = 12.6 GM/DL 11.2-15.7 410) HEMATOCRIT (BEAKER) (test code = 38.5 % 34.1-44.9 411) MEAN CORPUSCULAR VOLUME (BEAKER) 94.4 fL 79.4-94.8 (test code = 753) MEAN [...] (test code = 413) NEUTROPHILS RELATIVE PERCENT 89 % (BEAKER) (test code = 429) LYMPHOCYTES RELATIVE PERCENT 6 % (BEAKER) (test code = 430) MONOCYTES RELATIVE PERCENT 4 % (BEAKER) (test code = 431) EOSINOPHILS RELATIVE PERCENT 0 % (BEAKER) (test code = 432) BASOPHILS RELATIVE PERCENT 0 % (BEAKER) (test code = 437) NEUTROPHILS ABSOLUTE COUNT 10.72 K/ L 1.56-6.13 H (BEAKER) (test code = 670) LYMPHOCYTES ABSOLUTE COUNT 0.69 K/ L 1.18-3.74 L (BEAKER) (test code = 414) MONOCYTES ABSOLUTE COUNT (BEAKER) 0.42 K/ L 0.24-0.36 H (test code = 415) EOSINOPHILS ABSOLUTE COUNT 0.01 K/ L 0.04-0.36 L (BEAKER) (test code = 416) BASOPHILS ABSOLUTE COUNT (BEAKER) 0.03 K/ L 0.01-0.08 (test code = 417) IMMATURE GRANULOCYTES-RELATIVE 2 % 0-1 H PERCENT (BEAKER) (test code = 2801) [id number] 06:48:44 Test Item Value Reference Range Interpretation Comments PARTIAL THROMBOPLASTIN TIME 28.5 seconds 22.5-36.0 (BEAKER) (test code = 760) PROTHROMBIN TIME/[id number] 06:47:59 Test Item Value Reference Range Interpretation Comments PROTIME (BEAKER) 13.5 seconds 11.9-14.2 (test code = 759) INR (BEAKER) (test 1.05 See_Comment [Automat ed message] code = 370) The system [employer] generated this result transmitted ref erence range: <=5.90. The reference range was not used to int erpret this result as normal/abnormal . RECOMMENDED COUMADIN/WARFARIN INR THERAPY RANGESSTANDARD DOSE: 2.0 - 3.0 Includes: PROPHYLAXIS for venous thrombosis, systemic embolization; TREATMENT for venous thrombosis and/or pulmonary embolus.HIGH RISK: Target INR is 2.5-3.5 for patients with mechanical heart valves.POCT-GLUCOSE [id number] 21:52:27 Test Item Value Reference Range Interpretation Comments POC-GLUCOSE METER 162 mg/dL 70-110 H : [facility] ([facility]) (test code = [facility], 1538) [address]: Family Service Aide/Techni martita ID = [id number] for Ani Crowder Protein, random [id number] 19:50:44 Test Item Value Reference Range Interpretation Comments Protein, Urine (test code = 124 mg/dL 0-14 H 2888-6) LONNIE (test code = LONNIE) Family Service Aide ID - BS Lab Interpretation (test Abnormal code = 24393-8) [facility] [id number] 19:50:44 Test Item Value Reference Range Interpretation Comments PROTEIN, URINE (BEAKER) (test code 124 mg/dL 0-14 H = 1569) Family Service Aide ID - BSCreatinine, random [id number] 19:50:38 Test Item Value Reference Range Interpretation Comments Creatinine, Ur 51.3 mg/dL (test code = 2161-8) LONNIE (test code = Reference Range: No LONNIE) NormalsOperator ID - BS [facility] [id number] 19:50:38 Test Item Value Reference Range Interpretation Comments CREATININE URINE (BEAKER) (test 51.3 mg/dL code = 375) Reference Range: No NormalsOperator ID - BSPOCT-GLUCOSE [id number] 17:43:33 Test Item Value Reference Range Interpretation Comments POC-GLUCOSE METER 143 mg/dL 70-110 H : TESTED A T [facility] 6720 (BEAKER) (test code = [facility], 1538) [id number]: Family Service Aide/Techni martita ID = [id number] for OR RUDOLPH VU [id number] 17:10:30 Test Item Value Reference Range Interpretation Comments MAGNESIUM (BEAKER) 1.6 mg/dL 1.6-2.6 Specimen slightly (test code = 627) hemolyzed Family Service Aide ID - BSBASIC METABOLIC [id number] 17:10:30 Test Item Value Reference Range Interpretation Comments SODIUM (BEAKER) 142 meq/L 136-145 (test code = 381) POTASSIUM (BEAKER) 3.7 meq/L 3.5-5.1 Specimen slightly (test code = 379) hemolyzed CHLORIDE (BEAKER) 105 meq/L 98-107 (test code = 382) CO2 (BEAKER) (test 24 meq/L 22-29 code = 355) BLOOD UREA NITROGEN 16 mg/dL 7-21 (BEAKER) (test code = 354) CREATININE (BEAKER) 1.09 mg/dL 0.57-1.25 Specimen slightly (test code = 358) hemolyzed GLUCOSE RANDOM 120 mg/dL 70-105 H (BEAKER) (test code = 652) CALCIUM (BEAKER) 9.7 mg/dL 8.4-10.2 (test code = 697) EGFR (BEAKER) (test 53 mL/min/1.73 ESTIMA MARLINE GFR IS code = 1092) sq m NOT ACCURATE CREATININE CLEARANCE IN PREDICTING GLOMERULAR FILTRATION RATE . ESTIMATED GFR I S NOT APPLICABLE FOR DIALYSIS PATIEN TS. Family Service Aide ID - BSCBC W/PLT COUNT & AUTO [id number] 17:02:04 Test Item Value Reference Range Interpretation Comments WHITE BLOOD CELL COUNT (BEAKER) 9.6 K/ L 3.5-10.5 (test code = 775) RED BLOOD CELL COUNT (BEAKER) 4.36 M/ L 3.93-5.22 (test code = 761) HEMOGLOBIN (BEAKER) (test code = 13.3 GM/DL 11.2-15.7 410) HEMATOCRIT (BEAKER) (test code = 40.2 % 34.1-44.9 411) MEAN CORPUSCULAR VOLUME (BEAKER) 92.2 fL 79.4-94.8 (test code = 753) MEAN CORPUSCULAR HEMOGLOBIN 30.5 pg 25.6-32.2 (BEAKER) (test code = 751) MEAN CORPUSCULAR HEMOGLOBIN CONC 33.1 GM/DL 32.2-35.5 (BEAKER) (test code = 752) RED CELL DISTRIBUTION WIDTH 13.2 % 11.7-14.4 (BEAKER) (test code = 412) PLATELET COUNT (BEAKER) (test 250 K/CU MM 150-450 code = 756) MEAN [...] (test code = 437) NEUTROPHILS ABSOLUTE COUNT 6.88 K/ L 1.56-6.13 H (BEAKER) (test code = 670) LYMPHOCYTES ABSOLUTE COUNT 1.74 K/ L 1.18-3.74 (BEAKER) (test code = 414) MONOCYTES ABSOLUTE COUNT (BEAKER) 0.64 K/ L 0.24-0.36 H (test code = 415) EOSINOPHILS ABSOLUTE COUNT 0.15 K/ L 0.04-0.36 (BEAKER) (test code = 416) BASOPHILS ABSOLUTE COUNT (BEAKER) 0.04 K/ L 0.01-0.08 (test code = 417) IMMATURE GRANULOCYTES-RELATIVE 2 % 0-1 H PERCENT (BEAKER) (test code = 2801) SARS-CoV2/RT-PCR ([facility])2021-11-13 14:06:03 Test Item Value Reference Interpretation Comments Range SARS-COV2/RT-PCR Negative Negative The SARS-Co V-2 (test code = target nucleic 50492-7) acids are not detected in thi s specimen. Negat daja results do not preclude SARS-C oV-2 infection and should not be u sed as the sole bas is for patient management decisions. Nega tive results must be combined with clinical observations, patient history , and epidemiolog ical information. A false negative result may occu r if a specimen is improperly collected, transported or handled. This S ARS CoV-2 test is a rapid, real-curtis e RT-PCR test intended for th e qualitative detection of nucleic acid fr om SARS-CoV-2 in a nasopharyngeal swab specimen collec marline from individual s suspected of COVID-19 by the ir healthcare provider. LONNIE (test code = This test has been LONNIE) authorized by FDA under an EUA for use by authorized laboratories. This test is only authorized for the duration of the declaration that circumstances exist justifying the authorization of emergency use of in vitro diagnostic tests for detection and/or diagnosis of COVID-19 under Section 564(b)(1) of the Federal Food, Drug and Cosmetic Act, 21 U.S.C. 360bbb-3(b)(1), unless the authorization is terminated or revoked sooner. Fact Sheet for Healthcare Providers: https://www.[employer]/Documents/Xp ert%20Xpress%20SAR S%20CoV-2/Fact%20S heets/302-3802%20S ARS-COV-2%20HEALTH CARE%20PROVIDERS%2 0FACT%20SHEET.pdf Fact Sheet for Healthcare Patients: https://www.[employer]/Documents/Xp ert%20Xpress%20SAR S%20CoV-2/Fact%20S heets/302-3801%20S ARS-COV-2%20PATIEN T%20FACT%20SHEET.p df Lab Interpretation Normal (test code = 04850-7) [facility])2021-11-13 14:06:03 Test Item Value Reference Range Interpretation Comments SARS-COV2/RT-PCR Negative Negative The SARS-Co V-2 target (test code = nucleic acids a re not 6371133) detected in thi s specimen. Negative result s do not preclude SARS-C oV-2 infection and s hould not be used as the kenneth e basis for patient managem ent decisions. Nega tive results must be combine d with clinical observ ations, patient history , and epidemiological information. A false negativ e result may occur if a spec imen is improperly elsie ected, transported or handled. This SARS CoV-2 test is a rapid, real-time RT-PC R test intended for th e qualitative detection of nu cleic acid from SARS-CoV-2 in a nasopharyngeal swab specimen collected from individuals suspected of CO VID-19 by their healthcar e provider. This test has been authorized by FDA under an EUA for use by authorized laboratories. This test is only authorized for the duration of the declaration that circumstances exist justifying the authorization of emergency use of in vitro diagnostic tests for detection and/or diagnosis of COVID-19 under Section 564(b)(1) of the Federal Food, Drug and Cosmetic Act, 21 U.S.C. 360bbb-3(b)(1), unless the authorization is terminated or revoked sooner. Fact Sheet for Healthcare Providers: https://www.[employer]/Documents/Xpert%20Xpress%20SARS%20CoV-2/Fact%20Sheets/302-3802%92VUCW-JVT-6%20 HEALTHCARE%20PROVIDERS%20FACT%20SHEET.pdf Fact Sheet for Healthcare Patients: https://www.[employer]/Documents/Xpert%20Xp ress%20SARS%20CoV-2/Fact%20Sheets/302-3801%82YSQS-DKZ-6%20PATIENT%20FACT%20SHEET .pdfANG, CV ACCESS, [id number] 15:34:00Dialysis 05/23Reason for Exam:- >[facility] 1970 Sex: FFINAL REPORT Tunneled dialysis/plasmapheresis catheter insertion. History: Status post kidney transplant, need for plasmapheresis Modality: Sonography and fluoroscopy. Sedation: Moderate sedation was administered. 2 mg of Versed and 100 mcg of fentanyl IV was used for moderate sedation monitored under my direction. Total intra-service time of sedation was 45 minutes. The patient's vital signs were monitored throughout the procedure and recorded in the patient's medical record by the nurse. Gas Fitter Helper: Harrison Wilde Upper Extremity Surgeon: Bia Bhatt M.D. (fellow). Approach: Right neck, percutaneous Estimated blood loss: < 5 cc. Specimen: None. Fluoroscopy Time: 4.3 min. Dose (Ka,r): 122 mGy. Technique: Informed written consent was obtained. Discussion of risks, benefits, and alternatives were made with the patient. The patient expressed understanding and agreed to proceed. All elements maximal sterile barrier technique was utilized for this procedure, including utilization of sterile scrub solution for skin prep, a large sterile sheet to cover the areas of the patient thatwere not prepped, and hand hygiene, mask, head covering, and sterile gown for performing radiologistand scrub technologist. The skin was anesthetized with 2% lidocaine.Ultrasound evaluation showed a patent and compressible right internal jugular vein, which was punctured under direct real-time ultrasound guidance with a micropuncture needle. An ultrasound image was saved to PACS. However, a 0.018 inch wire could not be advanced centrally. 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 A prominent external jugular vein was noted. Subsequently, a 21-gauge microwas used to access the junction of the right external jugular and brachiocephalic vein. A 0.018 inch wire was advanced centrally into the right atrium. A 4 Zimbabwean micropuncture sheath was placed and a 0.035 wire was advanced into the IVC. A subcutaneous tunnel was created in the right anterior chest wall by blunt dissection. A 19 cm tip to cuff 15.5 [place]an Duraflow 2 catheter was brought through the tunnel. The vessel tract was serially dilated.A peel-away sheath was placed in the right IJ vein and the catheter was advanced through the sheath, with its distal tip terminating in the superior right atrium. The peel-away sheath was removed. The ports were flushed and aspirated easily following placement. The catheter was sutured to the skin to secure its placement. The small jugular incision site was closed using Dermabond. Vital signs were mon itored throughout the procedure by a nurse, and remained stable. The patient tolerated the procedurewell and left the department in the same condition. Results: Spot radiograph of the chest demonstrates the new dialysis catheter to lie in the expected position with its tip overlying the superior right atrium. Impression: Successful, uncomplicated placement of a right external jugular tunneled dialysis catheter using sonographic and fluoroscopic guidance and conscious sedation. Signed: Jerome Wilde MDReport Verified Date/Time: 10/02/2021 15:34:00 Reading Location: [facility] ReadingRoom PROTHROMBIN [id number] 11:01:19 Test Item Value Reference Range Interpretation Comments PROTIME (BEAKER) 13.3 seconds 11.9-14.2 (test code = 759) INR (BEAKER) (test 1.03 See_Comment [Automat ed message] code = 370) The system [employer] generated this result transmitted ref erence range: <=5.90. The reference range was not used to int erpret this result as normal/abnormal . RECOMMENDED COUMADIN/WARFARIN INR THERAPY RANGESSTANDARD DOSE: 2.0 - 3.0 Includes: PROPHYLAXIS for venous thrombosis, systemic embolization; TREATMENT for venous thrombosis and/or pulmonary embolus.HIGH RISK: Target INR is 2.5-3.5 for patients with mechanical heart valves.CBC W/PLT COUNT & AUTO [id number] 11:01:17 Test Item Value Reference Range Interpretation Comments WHITE BLOOD CELL COUNT (BEAKER) 7.8 K/ L 3.5-10.5 (test code = 775) RED BLOOD CELL COUNT (BEAKER) 4.55 M/ L 3.93-5.22 (test code = 761) HEMOGLOBIN (BEAKER) (test code = 13.8 GM/DL 11.2-15.7 410) HEMATOCRIT (BEAKER) (test code = 41.8 % 34.1-44.9 411) MEAN CORPUSCULAR VOLUME (BEAKER) 91.9 fL 79.4-94.8 (test code = 753) MEAN CORPUSCULAR HEMOGLOBIN 30.3 pg 25.6-32.2 (BEAKER) (test code = 751) MEAN CORPUSCULAR HEMOGLOBIN CONC 33.0 GM/DL 32.2-35.5 (BEAKER) (test code = 752) RED CELL DISTRIBUTION WIDTH 13.2 % 11.7-14.4 (BEAKER) (test code = 412) PLATELET COUNT (BEAKER) (test 253 K/CU MM 150-450 code = 756) MEAN [...] (test code = 437) NEUTROPHILS ABSOLUTE COUNT 5.50 K/ L 1.56-6.13 (BEAKER) (test code = 670) LYMPHOCYTES ABSOLUTE COUNT 1.50 K/ L 1.18-3.74 (BEAKER) (test code = 414) MONOCYTES ABSOLUTE COUNT (BEAKER) 0.55 K/ L 0.24-0.36 H (test code = 415) EOSINOPHILS ABSOLUTE COUNT 0.15 K/ L 0.04-0.36 (BEAKER) (test code = 416) BASOPHILS ABSOLUTE COUNT (BEAKER) 0.03 K/ L 0.01-0.08 (test code = 417) IMMATURE GRANULOCYTES-RELATIVE 1 % 0-1 PERCENT (BEAKER) (test code = 2801) BASIC METABOLIC [id number] 11:00:38 Test Item Value Reference Range Interpretation Comments SODIUM (BEAKER) 141 meq/L 136-145 (test code = 381) POTASSIUM (BEAKER) 4.3 meq/L 3.5-5.1 Specimen slightly (test code = 379) hemolyzed CHLORIDE (BEAKER) 107 meq/L 98-107 (test code = 382) CO2 (BEAKER) (test 22 meq/L 22-29 code = 355) BLOOD UREA NITROGEN 19 mg/dL 7-21 (BEAKER) (test code = 354) CREATININE (BEAKER) 1.07 mg/dL 0.57-1.25 Specimen slightly (test code = 358) hemolyzed GLUCOSE RANDOM 137 mg/dL 70-105 H (BEAKER) (test code = 652) CALCIUM (BEAKER) 9.7 mg/dL 8.4-10.2 (test code = 697) EGFR (BEAKER) (test 54 mL/min/1.73 ESTIMA MARLINE GFR IS code = 1092) sq m NOT ACCURATE CREATININE CLEARANCE IN PREDICTING GLOMERULAR FILTRATION RATE . ESTIMATED GFR I S NOT APPLICABLE FOR DIALYSIS PATIEN TS. Family Service Aide ID - WILI MPOCT-GLUCOSE [id number] 10:38:07 Test Item Value Reference Range Interpretation Comments POC-GLUCOSE METER 132 mg/dL 70-110 H : TESTED A T [facility] 6720 (BEAKER) (test code [facility], = 1538) [address]: Family Service Aide/Techni martita ID = [id number] for Danuta Durand POCT , [id number] 10:12:00 Test Item Value Reference Range Interpretation Comments Test Urine, POC (test Negative code = 8938947) Control line present?, POC (test Yes code = 2538159) Background clear?, POC (test code Yes = 1202140) UPT Cassette Lot #, POC (test code [id number] = [id number]) UPT Cassette Expiration Date, POC 02-08-2023 (test code = 8266708) [id number] 13:13:15 Test Item Value Reference Range Interpretation Comments TACROLIMUS BLOOD 7.0 ng/mL 10.0-20.0 L Test perfor med on Jaffe (BEAKER) (test code Architec t Immunoassay = 657) system with Chemiluminescen t Microparticle I mmunoassay (CMIA) technrene marie Family Service Aide ID - AAHAMIDURINALYSIS W/ REFLEX URINE [id number] 11:42:56 Test Item Value Reference Range Interpretation Comments COLOR (BEAKER) (test code = 470) Light Yellow CLARITY (BEAKER) (test code = Clear 469) SPECIFIC GRAVITY UA (BEAKER) 1.013 1.001-1.035 [...] 519) WBC UA (BEAKER) (test code = 0 /HPF 520) BACTERIA (BEAKER) (test code = Few 517) MUCUS (BEAKER) (test code = Rare 1574) SQUAMOUS EPITHELIAL (BEAKER) 3 /HPF (test code = 516) CRYSTALS, URINE (BEAKER) (test None Seen code = 1521) SOURCE(BEAKER) (test code = 1495) Family Service Aide ID - [auto]Family Service Aide ID - [id number] 11:29:13 Test Item Value Reference Range Interpretation Comments PHOSPHORUS (BEAKER) (test code = 3.3 mg/dL 2.3-4.7 604) Family Service Aide ID - WILI MCOMPREHENSIVE METABOLIC [id number] 11:29:13 Test Item Value Reference Range Interpretation Comments TOTAL PROTEIN 7.6 gm/dL 6.0-8.3 (BEAKER) (test code = 770) ALBUMIN (BEAKER) 4.0 g/dL 3.5-5.0 (test code = 1145) ALKALINE PHOSPHATASE 148 U/L 40-150 (BEAKER) (test code = 346) BILIRUBIN TOTAL 0.5 mg/dL 0.2-1.2 (BEAKER) (test code = 377) SODIUM (BEAKER) (test 138 meq/L 136-145 code = 381) POTASSIUM (BEAKER) 4.0 meq/L 3.5-5.1 (test code = 379) CHLORIDE (BEAKER) 105 meq/L 98-107 (test code = 382) CO2 (BEAKER) (test 21 meq/L 22-29 L code = 355) BLOOD UREA NITROGEN 15 mg/dL 7-21 (BEAKER) (test code = 354) CREATININE (BEAKER) 1.08 mg/dL 0.57-1.25 (test code = 358) GLUCOSE RANDOM 119 mg/dL 70-105 H (BEAKER) (test code = 652) CALCIUM (BEAKER) 9.7 mg/dL 8.4-10.2 (test code = 697) AST (SGOT) (BEAKER) 19 U/L 5-34 (test code = 353) ALT (SGPT) (BEAKER) 24 U/L 6-55 (test code = 347) EGFR (BEAKER) (test 54 mL/min/1.73 ESTIMA MARLINE GFR IS code = 1092) sq m NOT ACCURATE CREATININE CLEARANCE IN PREDICTING GLOMERULAR FILTRATION RATE . ESTIMATED GFR I S NOT APPLICABLE FOR DIALYSIS PATIEN TS. Family Service Aide ID - WILI MSpecimen moderately lipemicCBC W/PLT COUNT & AUTO [id number] 11:00:10 Test Item Value Reference Range Interpretation Comments WHITE BLOOD CELL COUNT (BEAKER) 10.7 K/ L 3.5-10.5 H (test code = 775) RED BLOOD CELL COUNT (BEAKER) 4.56 M/ L 3.93-5.22 (test code = 761) HEMOGLOBIN (BEAKER) (test code = 14.0 GM/DL 11.2-15.7 410) HEMATOCRIT (BEAKER) (test code = 41.9 % 34.1-44.9 411) MEAN CORPUSCULAR VOLUME (BEAKER) 91.9 fL 79.4-94.8 (test code = 753) MEAN CORPUSCULAR HEMOGLOBIN 30.7 pg 25.6-32.2 (BEAKER) (test code = 751) MEAN CORPUSCULAR HEMOGLOBIN CONC 33.4 GM/DL 32.2-35.5 (BEAKER) (test code = 752) RED CELL DISTRIBUTION WIDTH 13.1 % 11.7-14.4 (BEAKER) (test code = 412) PLATELET COUNT (BEAKER) (test 295 K/CU MM 150-450 code = 756) MEAN PLATELET VOLUME (BEAKER) 10.4 fL 9.4-12.3 (test code = 754) NUCLEATED RED BLOOD CELLS 0 /100 WBC 0-0 (BEAKER) (test code = 413) NEUTROPHILS RELATIVE PERCENT 76 % (BEAKER) (test code = 429) LYMPHOCYTES RELATIVE PERCENT 15 % (BEAKER) (test code = 430) MONOCYTES RELATIVE PERCENT 6 % (BEAKER) (test code = 431) EOSINOPHILS RELATIVE PERCENT 1 % (BEAKER) (test code = 432) BASOPHILS RELATIVE PERCENT 1 % (BEAKER) (test code = 437) NEUTROPHILS ABSOLUTE COUNT 8.08 K/ L 1.56-6.13 H (BEAKER) (test code = 670) LYMPHOCYTES ABSOLUTE COUNT 1.55 K/ L 1.18-3.74 (BEAKER) (test code = 414) MONOCYTES ABSOLUTE COUNT (BEAKER) 0.66 K/ L 0.24-0.36 H (test code = 415) EOSINOPHILS ABSOLUTE COUNT 0.13 K/ L 0.04-0.36 (BEAKER) (test code = 416) BASOPHILS ABSOLUTE COUNT (BEAKER) 0.05 K/ L 0.01-0.08 (test code = 417) IMMATURE GRANULOCYTES-RELATIVE 2 % 0-1 H PERCENT (BEAKER) (test code = 2801) CMV PCR, [id number] 14:36:54 Test Item Value Reference Range Interpretation Comments CMV VIRAL LOAD - Negative or below See_Comment [Auto mated message] NEGATIVE (ESTRELLA) the linear range The sy stem which (test code = of the assay generated this 2558) (<300 IU/mL) result transmit marline reference range : <300 - >3,00 0,000 IU/mL. The refe rence range was not u sed to interpret th is result as normal/abnormal . Cytomegalovirus (CMV) infection can cause significant disease in immunosuppressed patients. However,it is common for CMV to manifest as a limited infection which is of no clinical significance in immunosuppressed patients or in healthy individuals.Viral load measurements are helpful to identify clinical CMV infection and to guide the pre-emptive management of antiviral therapy. For treatment of CMV infection due to reactivation in transplant recipients, a threshold between 4,000 and 5,000 copies/mLis suggested. For treatment of primary CMV infection, a lower threshold can be used.CMV infection may also be monitored using weekly serial measurements. Serial measurements of CMV DNA viral load can be evaluated by identifying a 10-fold change, as [...] and its performance characteristics determined by the [facility] Pathol ogy Department, Section of Molecular Pathology. It has not been cleared or approved by the U.S. Foodand Drug Administration (FDA), since FDA approval is not required for clinical use of the test. Validation was done as required by The Clinical Laboratory Improvement Amendments of 1988.TACROLIMUS LEVEL 2021-03-22 13:18:48 Test Item Value Reference Range Interpretation Comments TACROLIMUS BLOOD 11.8 ng/mL 10.0-20.0 Test perfor med on Jaffe (BEAKER) (test code Architec t Immunoassay = 657) system with Chemiluminescen t Microparticle Immunoassay (CM IA) technology. Family Service Aide ID - RMURINALYSIS W/ REFLEX URINE [id number] 12:15:21 Test Item Value Reference Range Interpretation Comments [...] (BEAKER) 2 /HPF (test code = 516) CRYSTALS, URINE (BEAKER) (test None Seen code = 1521) SOURCE(BEAKER) (test code = 2795) Family Service Aide ID - [auto]Family Service Aide ID - [id number] 11:54:34 Test Item Value Reference Range Interpretation Comments PHOSPHORUS (BEAKER) (test code = 4.0 mg/dL 2.3-4.7 604) Family Service Aide ID - WILI MCOMPREHENSIVE METABOLIC [id number] 11:54:33 Test Item Value Reference Range Interpretation Comments [...] (BEAKER) (test code = 354) CREATININE (BEAKER) 1.12 mg/dL 0.57-1.25 (test code = 358) GLUCOSE RANDOM 149 mg/dL 70-105 H (BEAKER) (test code = 652) CALCIUM (BEAKER) 10.5 mg/dL 8.4-10.2 H (test code = 697) AST (SGOT) (BEAKER) 20 U/L 5-34 (test code = 353) ALT (SGPT) (BEAKER) 29 U/L 6-55 (test code = 347) EGFR (BEAKER) (test 51 mL/min/1.73 ESTIMA MARLINE GFR IS code = 1092) sq m NOT ACCURATE CREATININE CLEARANCE IN PREDICTING GLOMERULAR FILTRATION RATE . ESTIMATED GFR I S NOT APPLICABLE FOR DIALYSIS PATIEN TS. Family Service Aide ID - WILI MCBC W/PLT COUNT & AUTO [id number] 11:25:23 Test Item Value Reference Range Interpretation Comments WHITE BLOOD CELL COUNT (BEAKER) 9.7 K/ L 3.5-10.5 (test code = 775) RED BLOOD CELL COUNT (BEAKER) 4.55 M/ L 3.93-5.22 (test code = 761) HEMOGLOBIN (BEAKER) (test code = 13.8 GM/DL 11.2-15.7 410) HEMATOCRIT (BEAKER) (test code = 42.3 % 34.1-44.9 411) MEAN CORPUSCULAR VOLUME (BEAKER) 93.0 fL 79.4-94.8 (test code = 753) MEAN CORPUSCULAR HEMOGLOBIN 30.3 pg 25.6-32.2 (BEAKER) (test code = 751) MEAN CORPUSCULAR HEMOGLOBIN CONC 32.6 GM/DL 32.2-35.5 (BEAKER) (test code = 752) RED CELL DISTRIBUTION WIDTH 12.8 % 11.7-14.4 (BEAKER) (test code = 412) PLATELET COUNT (BEAKER) (test 269 K/CU MM 150-450 code = 756) MEAN [...] (test code = 437) NEUTROPHILS ABSOLUTE COUNT 7.45 K/ L 1.56-6.13 H (BEAKER) (test code = 670) LYMPHOCYTES ABSOLUTE COUNT 1.37 K/ L 1.18-3.74 (BEAKER) (test code = 414) MONOCYTES ABSOLUTE COUNT (BEAKER) 0.63 K/ L 0.24-0.36 H (test code = 415) EOSINOPHILS ABSOLUTE COUNT 0.10 K/ L 0.04-0.36 (BEAKER) (test code = 416) BASOPHILS ABSOLUTE COUNT (BEAKER) 0.03 K/ L 0.01-0.08 (test code = 417) IMMATURE GRANULOCYTES-RELATIVE 2 % 0-1 H PERCENT (BEAKER) (test code = 2801) TACROLIMUS [id number] 10:45:12 Test Item Value Reference Range Interpretation Comments TACROLIMUS BLOOD 12.0 ng/mL 10.0-20.0 Test perfor med on Jaffe (BEAKER) (test code Architec t Immunoassay = 657) system with Chemiluminescen t Microparticle Immunoassay (CM IA) technology. Family Service Aide ID - AAHAMIDCOMPREHENSIVE METABOLIC [id number] 11:23:34 Test Item Value Reference Range Interpretation Comments TOTAL PROTEIN 7.4 gm/dL 6.0-8.3 (BEAKER) (test code = 770) ALBUMIN (BEAKER) 4.1 g/dL 3.5-5.0 (test code = 1145) ALKALINE PHOSPHATASE 162 U/L 40-150 H (BEAKER) (test code = [...] 0.57-1.25 (test code = 358) GLUCOSE RANDOM 213 mg/dL 70-105 H (BEAKER) (test code = 652) CALCIUM (BEAKER) 9.9 mg/dL 8.4-10.2 (test code = 697) AST (SGOT) (BEAKER) 28 U/L 5-34 (test code = 353) ALT (SGPT) (BEAKER) 40 U/L 6-55 (test code = 347) EGFR (BEAKER) (test 49 mL/min/1.73 ESTIMA MARLINE GFR IS code = 1092) sq m NOT ACCURATE CREATININE CLEARANCE IN PREDICTING GLOMERULAR FILTRATION RATE . ESTIMATED GFR I S NOT APPLICABLE FOR DIALYSIS PATIEN TS. Family Service Aide ID - WILI MOperator ID - WILI MSpecimen slightly lipemicURINALYSIS W/ REFLEX URINE [id number] 11:17:05 Test Item Value Reference Range Interpretation Comments COLOR (BEAKER) (test code = 470) Yellow CLARITY (BEAKER) (test code = 469) Clear SPECIFIC GRAVITY UA (BEAKER) (test 1.017 1.001-1.035 code = 468) PH UA (BEAKER) [...] RBC UA (BEAKER) (test code = 519) 1 /HPF WBC UA (BEAKER) (test code = 520) < /HPF BACTERIA (BEAKER) (test code = 517) Rare SQUAMOUS EPITHELIAL (BEAKER) (test 3 /HPF code = 516) HYALINE CASTS (BEAKER) (test code = 1 /LPF 514) CRYSTALS, URINE (BEAKER) (test code None Seen = 1521) SOURCE(BEAKER) (test code = 2795) Family Service Aide ID - [auto]Family Service Aide ID - [id number] 10:43:00 Test Item Value Reference Range Interpretation Comments PHOSPHORUS (BEAKER) (test code = 3.4 mg/dL 2.3-4.7 604) Family Service Aide ID - WILI MCBC W/PLT COUNT & AUTO [id number] 10:27:11 Test Item Value Reference Range Interpretation Comments WHITE BLOOD CELL COUNT (BEAKER) 9.2 K/ L 3.5-10.5 (test code = 775) RED BLOOD CELL COUNT (BEAKER) 4.50 M/ L 3.93-5.22 (test code = 761) HEMOGLOBIN (BEAKER) (test code = 13.9 GM/DL 11.2-15.7 410) HEMATOCRIT (BEAKER) (test code = 42.6 % 34.1-44.9 411) MEAN CORPUSCULAR VOLUME (BEAKER) 94.7 fL 79.4-94.8 (test code = 753) MEAN CORPUSCULAR HEMOGLOBIN 30.9 pg 25.6-32.2 (BEAKER) (test code = 751) MEAN CORPUSCULAR HEMOGLOBIN CONC 32.6 GM/DL 32.2-35.5 (BEAKER) (test code = 752) RED CELL DISTRIBUTION WIDTH 13.0 % 11.7-14.4 (BEAKER) (test code = 412) PLATELET COUNT (BEAKER) (test 279 K/CU MM 150-450 code = 756) MEAN PLATELET VOLUME (BEAKER) 10.4 fL 9.4-12.3 (test code = 754) NUCLEATED RED BLOOD CELLS 0 /100 WBC 0-0 (BEAKER) (test code = 413) NEUTROPHILS RELATIVE PERCENT 76 % (BEAKER) (test code = 429) LYMPHOCYTES RELATIVE PERCENT 14 % (BEAKER) (test code = 430) MONOCYTES RELATIVE PERCENT 7 % (BEAKER) (test code = 431) EOSINOPHILS RELATIVE PERCENT 2 % (BEAKER) (test code = 432) BASOPHILS RELATIVE PERCENT 0 % (BEAKER) (test code = 437) NEUTROPHILS ABSOLUTE COUNT 6.98 K/ L 1.56-6.13 H (BEAKER) (test code = 670) LYMPHOCYTES ABSOLUTE COUNT 1.31 K/ L 1.18-3.74 (BEAKER) (test code = 414) MONOCYTES ABSOLUTE COUNT (BEAKER) 0.61 K/ L 0.24-0.36 H (test code = 415) EOSINOPHILS ABSOLUTE COUNT 0.17 K/ L 0.04-0.36 (BEAKER) (test code = 416) BASOPHILS ABSOLUTE COUNT (BEAKER) 0.04 K/ L 0.01-0.08 (test code = 417) IMMATURE GRANULOCYTES-RELATIVE 1 % 0-1 PERCENT (BEAKER) (test code = 2801) BK VIRUS PCR, [id number] 12:19:40 Test Item Value Reference Range Interpretation Comments BK VIRUS, PLASMA, POS See dc anned report. (BEAKER) (test code = 1820) BK VIRUS, PLASMA, NEG See dc anned report. (BEAKER) (test code = 2145) CMV PCR, [id number] 20:19:43 Test Item Value Reference Range Interpretation Comments CMV VIRAL LOAD - Negative or below See_Comment [Auto mated message] NEGATIVE (BEAKER) the linear range The sy stem which (test code = of the assay generated this 2558) (<300 IU/mL) result transmit marline reference range : <300 - >3,00 0,000 IU/mL. The refe rence range was not u sed to interpret th is result as normal/abnormal . Cytomegalovirus (CMV) infection can cause significant disease in immunosuppressed patients. However,it is common for CMV to manifest as a limited infection which is of no clinical significance in immunosuppressed patients or in healthy individuals.Viral load measurements are helpful to identify clinical CMV infection and to guide the pre-emptive management of antiviral therapy. For treatment of CMV infection due to reactivation in transplant recipients, a threshold between 4,000 and 5,000 copies/mLis suggested. For treatment of primary CMV infection, a lower threshold can be used.CMV infection may also be monitored using weekly serial measurements. Serial measurements of CMV DNA viral load can be evaluated by identifying a 10-fold change, as [...] and its performance characteristics determined by the [facility] Pathol ogy Department, Section of Molecular Pathology. It has not been cleared or approved by the U.S. Foodand Drug Administration (FDA), since FDA approval is not required for clinical use of the test. Validation was done as required by The Clinical Laboratory Improvement Amendments of 1988.TACROLIMUS LEVEL 2021-02-13 15:18:15 Test Item Value Reference Range Interpretation Comments TACROLIMUS BLOOD 10.2 ng/mL 10.0-20.0 Test perfor med on [employer] ([employer]) (test code Architec t Immunoassay = 657) system with Chemiluminescen t Microparticle Immunoassay (CM IA) technology. Family Service Aide ID - AAHAMIDURINALYSIS W/ REFLEX URINE [id number] 12:24:38 Test Item Value Reference Range Interpretation Comments [...] /HPF 520) BACTERIA (BEAKER) (test code = None Seen 517) SQUAMOUS EPITHELIAL (BEAKER) 3 /HPF (test code = 516) CRYSTALS, URINE (BEAKER) (test None Seen code = 1521) SOURCE(BEAKER) (test code = 2795) Family Service Aide ID - [auto]Family Service Aide ID - techCOMPREHENSIVE METABOLIC [id number] 11:43:16 Test Item Value Reference Range Interpretation Comments TOTAL PROTEIN 7.6 gm/dL 6.0-8.3 (BEAKER) (test code = 770) ALBUMIN (BEAKER) 4.2 g/dL 3.5-5.0 (test code = 1145) ALKALINE PHOSPHATASE 159 U/L 40-150 H (BEAKER) (test code = [...] (BEAKER) (test code = 354) CREATININE (BEAKER) 1.04 mg/dL 0.57-1.25 (test code = 358) GLUCOSE RANDOM 187 mg/dL 70-105 H (BEAKER) (test code = 652) CALCIUM (BEAKER) 10.3 mg/dL 8.4-10.2 H (test code = 697) AST (SGOT) (BEAKER) 23 U/L 5-34 (test code = 353) ALT (SGPT) (BEAKER) 33 U/L 6-55 (test code = 347) EGFR (BEAKER) (test 56 mL/min/1.73 ESTIMA MARLINE GFR IS code = 1092) sq m NOT ACCURATE CREATININE CLEARANCE IN PREDICTING GLOMERULAR FILTRATION RATE . ESTIMATED GFR I S NOT APPLICABLE FOR DIALYSIS PATIEN TS. Family Service Aide ID - NABEEL [id number] 11:43:16 Test Item Value Reference Range Interpretation Comments PHOSPHORUS (BEAKER) (test code = 3.4 mg/dL 2.3-4.7 604) Family Service Aide ID - NABEEL FCBC W/PLT COUNT & AUTO [id number] 11:22:13 Test Item Value Reference Range Interpretation Comments WHITE BLOOD CELL COUNT (BEAKER) 8.2 K/ L 3.5-10.5 (test code = 775) RED BLOOD CELL COUNT (BEAKER) 4.69 M/ L 3.93-5.22 (test code = 761) HEMOGLOBIN (BEAKER) (test code = 14.2 GM/DL 11.2-15.7 410) HEMATOCRIT (BEAKER) (test code = 45.2 % 34.1-44.9 H 411) MEAN CORPUSCULAR VOLUME (BEAKER) 96.4 fL 79.4-94.8 H (test code = 753) MEAN CORPUSCULAR HEMOGLOBIN 30.3 pg 25.6-32.2 (BEAKER) (test code = 751) MEAN CORPUSCULAR HEMOGLOBIN CONC 31.4 GM/DL 32.2-35.5 L (BEAKER) (test code = 752) RED CELL DISTRIBUTION WIDTH 12.9 % 11.7-14.4 (BEAKER) (test code = 412) PLATELET COUNT (BEAKER) (test 290 K/CU MM 150-450 code = 756) MEAN PLATELET VOLUME (BEAKER) 10.4 fL 9.4-12.3 (test code = 754) NUCLEATED RED BLOOD CELLS 0 /100 WBC 0-0 (BEAKER) (test code = 413) NEUTROPHILS RELATIVE PERCENT 72 % (BEAKER) (test code = 429) LYMPHOCYTES RELATIVE PERCENT 15 % (BEAKER) (test code = 430) MONOCYTES RELATIVE PERCENT 8 % (BEAKER) (test code = 431) EOSINOPHILS RELATIVE PERCENT 2 % (BEAKER) (test code = 432) BASOPHILS RELATIVE PERCENT 1 % (BEAKER) (test code = 437) NEUTROPHILS ABSOLUTE COUNT 5.94 K/ L 1.56-6.13 (BEAKER) (test code = 670) LYMPHOCYTES ABSOLUTE COUNT 1.24 K/ L 1.18-3.74 (BEAKER) (test code = 414) MONOCYTES ABSOLUTE COUNT (BEAKER) 0.67 K/ L 0.24-0.36 H (test code = 415) EOSINOPHILS ABSOLUTE COUNT 0.19 K/ L 0.04-0.36 (BEAKER) (test code = 416) BASOPHILS ABSOLUTE COUNT (BEAKER) 0.04 K/ L 0.01-0.08 (test code = 417) IMMATURE GRANULOCYTES-RELATIVE 2 % 0-1 H PERCENT (BEAKER) (test code = 2801) BK VIRUS PCR, [id number] 10:25:56 Test Item Value Reference Range Interpretation Comments BK VIRUS, PLASMA, POS Detect ed <500 copies/ml (BEAKER) (test code = 1820) TEST PERFORMED BY [employer] .fr [place]Please See Scanned ReportCMV PCR, [id number] 14:39:28 Test Item Value Reference Range Interpretation Comments CMV VIRAL LOAD - Negative or below See_Comment [Auto mated message] NEGATIVE (BEAKER) the linear range The sy stem which (test code = of the assay generated this 2558) (<300 IU/mL) result transmit marline reference range : <300 - >3,00 0,000 IU/mL. The refe rence range was not u sed to interpret th is result as normal/abnormal . Cytomegalovirus (CMV) infection can cause significant disease in immunosuppressed patients. However,it is common for CMV to manifest as a limited infection which is of no clinical significance in immunosuppressed patients or in healthy individuals.Viral load measurements are helpful to identify clinical CMV infection and to guide the pre-emptive management of antiviral therapy. For treatment of CMV infection due to reactivation in transplant recipients, a threshold between 4,000 and 5,000 copies/mLis suggested. For treatment of primary CMV infection, a lower threshold can be used.CMV infection may also be monitored using weekly serial measurements. Serial measurements of CMV DNA viral load can be evaluated by identifying a 10-fold change, as [...] and its performance characteristics determined by the [facility] Pathol ogy Department, Section of Molecular Pathology. It has not been cleared or approved by the U.S. Foodand Drug Administration (FDA), since FDA approval is not required for clinical use of the test. Validation was done as required by The Clinical Laboratory Improvement Amendments of 1988.TACROLIMUS LEVEL 2021-01-22 13:57:16 Test Item Value Reference Range Interpretation Comments TACROLIMUS BLOOD 7.4 ng/mL 10.0-20.0 L Test perfor med on [employer] (BEAKER) (test code Architec t Immunoassay = 657) system with Chemiluminescen t Microparticle I mmunoassay (CMIA) technolo gy. Family Service Aide ID - AAHAMIDURINALYSIS W/ REFLEX URINE [id number] 11:18:13 Test Item Value Reference Range Interpretation Comments COLOR (BEAKER) (test code = 470) Light Yellow CLARITY (BEAKER) (test code = Clear 469) SPECIFIC GRAVITY UA (BEAKER) 1.012 1.001-1.035 (test code = 468) PH UA (BEAKER) (test code = 467) 6.0 5.0-8.0 PROTEIN UA (BEAKER) (test code = 50 mg/dL Negative A 464) GLUCOSE UA (BEAKER) [...] 519) WBC UA (BEAKER) (test code = 4 /HPF 520) BACTERIA (BEAKER) (test code = Rare 517) SQUAMOUS EPITHELIAL (BEAKER) 4 /HPF (test code = 516) CRYSTALS, URINE (BEAKER) (test None Seen code = 1521) SOURCE(BEAKER) (test code = 2795) Family Service Aide ID - [auto]Family Service Aide ID - [id number] 10:56:16 Test Item Value Reference Range Interpretation Comments MAGNESIUM (BEAKER) (test code = 1.7 mg/dL 1.6-2.6 627) Family Service Aide ID - RICHELLE [id number] 10:56:16 Test Item Value Reference Range Interpretation Comments PHOSPHORUS (BEAKER) (test code = 3.1 mg/dL 2.3-4.7 604) Family Service Aide ID - RICHELLE LCOMPREHENSIVE METABOLIC [id number] 10:56:15 Test Item Value Reference Range Interpretation Comments TOTAL PROTEIN 7.4 gm/dL 6.0-8.3 (BEAKER) (test code = 770) ALBUMIN (BEAKER) 4.2 g/dL 3.5-5.0 (test code = 1145) ALKALINE PHOSPHATASE 149 U/L 40-150 (BEAKER) (test code = 346) BILIRUBIN TOTAL 0.6 mg/dL 0.2-1.2 (BEAKER) (test code = 377) SODIUM (BEAKER) (test 138 meq/L 136-145 code = 381) POTASSIUM (BEAKER) 4.3 meq/L 3.5-5.1 (test code = 379) CHLORIDE (BEAKER) 108 meq/L 98-107 H (test code = 382) CO2 (BEAKER) (test 20 meq/L 22-29 L code = 355) BLOOD UREA NITROGEN 16 mg/dL 7-21 (BEAKER) (test code = 354) CREATININE (BEAKER) 1.19 mg/dL 0.57-1.25 (test code = 358) GLUCOSE RANDOM 160 mg/dL 70-105 H (BEAKER) (test code = 652) CALCIUM (BEAKER) 9.7 mg/dL 8.4-10.2 (test code = 697) AST (SGOT) (BEAKER) 19 U/L 5-34 (test code = 353) ALT (SGPT) (BEAKER) 30 U/L 6-55 (test code = 347) EGFR (BEAKER) (test 48 mL/min/1.73 ESTIMA MARLINE GFR IS code = 1092) sq m NOT ACCURATE CREATININE CLEARANCE IN PREDICTING GLOMERULAR FILTRATION RATE . ESTIMATED GFR I S NOT APPLICABLE FOR DIALYSIS PATIEN TS. Family Service Aide ID - PIAYA LCBC W/PLT COUNT & AUTO [id number] 10:27:01 Test Item Value Reference Range Interpretation Comments WHITE BLOOD CELL COUNT (BEAKER) 8.0 K/ L 3.5-10.5 (test code = 775) RED BLOOD CELL COUNT (BEAKER) 4.36 M/ L 3.93-5.22 (test code = 761) HEMOGLOBIN (BEAKER) (test code = 13.5 GM/DL 11.2-15.7 410) HEMATOCRIT (BEAKER) (test code = 41.4 % 34.1-44.9 411) MEAN CORPUSCULAR VOLUME (BEAKER) 95.0 fL 79.4-94.8 H (test code = 753) MEAN CORPUSCULAR HEMOGLOBIN 31.0 pg 25.6-32.2 (BEAKER) (test code = 751) MEAN CORPUSCULAR HEMOGLOBIN CONC 32.6 GM/DL 32.2-35.5 (BEAKER) (test code = 752) RED CELL DISTRIBUTION WIDTH 12.8 % 11.7-14.4 (BEAKER) (test code = 412) PLATELET COUNT (BEAKER) (test 284 K/CU MM 150-450 code = 756) MEAN PLATELET VOLUME (BEAKER) 9.9 fL 9.4-12.3 (test code = 754) NUCLEATED RED BLOOD CELLS 0 /100 WBC 0-0 (BEAKER) (test code = 413) NEUTROPHILS RELATIVE PERCENT 74 % (BEAKER) (test code = 429) LYMPHOCYTES RELATIVE PERCENT 15 % (BEAKER) (test code = 430) MONOCYTES RELATIVE PERCENT 8 % (BEAKER) (test code = 431) EOSINOPHILS RELATIVE PERCENT 2 % (BEAKER) (test code = 432) BASOPHILS RELATIVE PERCENT 0 % (BEAKER) (test code = 437) NEUTROPHILS ABSOLUTE COUNT 5.91 K/ L 1.56-6.13 (BEAKER) (test code = [...] IMMATURE GRANULOCYTES-RELATIVE 2 % 0-1 H PERCENT (BLASAKER) (test code = 2801) BK VIRUS PCR, [id number] 07:15:00 Test Item Value Reference Range Interpretation Comments BK VIRUS, PLASMA, POS See dc anned report. (BEAKER) (test code = 1820) BK VIRUS, PLASMA, NEG See dc anned report. (BEAKER) (test code = 2145) CMV PCR, [id number] 14:53:00 Test Item Value Reference Range Interpretation Comments CMV VIRAL LOAD - Negative or below See_Comment 1 copy /ml = 2.46 NEGATIVE (ESTRELLA) the linear range IU/ml [Automated (test code = of the assay message] The sy stem 2558) (<375 copies/mL) which gener ated this result transmit marline reference range : <375- >375,000 copies/mL. The reference range was not used to interpret this result as normal/abnormal . Cytomegalovirus (CMV) infection can cause significant disease in immunosuppressed patients. However,it is common for CMV to manifest as a limited infection which is of no clinical significance in immunosuppressed patients or in healthy individuals.Viral load measurements are helpful to identify clinical CMV infection and to guide the pre-emptive management of antiviral therapy. For treatment of CMV infection due to reactivation in transplant recipients, a threshold between 4,000 and 5,000 copies/mLis suggested. For treatment of primary CMV infection, a lower threshold can be used.CMV infection may also be monitored using weekly serial measurements. Serial measurements of CMV DNA viral load can be evaluated by identifying a 10-fold change, as [...] and its performance characteristics determined by the [facility] Pathol ogy Department, Section of Molecular Pathology. It has not been cleared or approved by the U.S. Foodand Drug Administration (FDA), since FDA approval is not required for clinical use of the test. Validation was done as required by The Clinical Laboratory Improvement Amendments of 1988.PROTEIN, RANDOM URINE 2020-12-21 14:20:00 Test Item Value Reference Range Interpretation Comments PROTEIN, URINE (BEAKER) (test code = 42 mg/dL 0-14 H 1569) Family Service Aide ID - DSENSONTACROLIMUS [id number] 12:42:00 Test Item Value Reference Range Interpretation Comments TACROLIMUS BLOOD 7.4 ng/mL 10.0-20.0 L Test perfor med on [employer] (BEAKER) (test code Architec t Immunoassay = 657) system with Chemiluminescen t Microparticle I mmunoassay (CMIA) technolo gy. Family Service Aide ID - AAHAMIDCOMPREHENSIVE METABOLIC [id number] 11:51:00 Test Item Value Reference Range Interpretation Comments TOTAL PROTEIN 7.2 gm/dL 6.0-8.3 (BEAKER) (test code = 770) ALBUMIN (BEAKER) 4.2 g/dL 3.5-5.0 (test code = 1145) ALKALINE PHOSPHATASE 128 U/L 40-150 (BEAKER) (test code = 346) [...] 0.57-1.25 (test code = 358) GLUCOSE RANDOM 172 mg/dL 70-105 H (BEAKER) (test code = 652) CALCIUM (BEAKER) 9.3 mg/dL 8.4-10.2 (test code = 697) AST (SGOT) (BEAKER) 22 U/L 5-34 (test code = 353) ALT (SGPT) (BEAKER) 35 U/L 6-55 (test code = 347) EGFR (BEAKER) (test 52 mL/min/1.73 ESTIMA MARLINE GFR IS code = 1092) sq m NOT ACCURATE CREATININE CLEARANCE IN PREDICTING GLOMERULAR FILTRATION RATE . ESTIMATED GFR I S NOT APPLICABLE FOR DIALYSIS PATIEN TS. Family Service Aide ID - [id number] 11:51:00 Test Item Value Reference Range Interpretation Comments PHOSPHORUS (BEAKER) (test code = 3.7 mg/dL 2.3-4.7 604) Family Service Aide ID - ADMINURINALYSIS W/ REFLEX URINE [id number] 11:46:00 Test Item Value Reference Range Interpretation Comments COLOR (BEAKER) (test code = 470) Colorless CLARITY (BEAKER) (test code = 469) Clear SPECIFIC GRAVITY UA (BEAKER) (test 1.011 1.001-1.035 code = 468) PH UA (BEAKER) [...] RBC UA (BEAKER) (test code = 519) 1 /HPF WBC UA (BEAKER) (test code = 520) 5 /HPF BACTERIA (BEAKER) (test code = 517) Rare SQUAMOUS EPITHELIAL (BEAKER) (test 4 /HPF code = 516) CRYSTALS, URINE (BEAKER) (test code None Seen = 1521) SOURCE(BEAKER) (test code = 3705) Family Service Aide ID - [auto]Family Service Aide ID - techCBC W/PLT COUNT & AUTO DIFFERENTIAL 2020-12-21 11:30:00 Test Item Value Reference Range Interpretation Comments WHITE BLOOD CELL COUNT (BEAKER) 8.9 K/ L 3.5-10.5 (test code = 775) RED BLOOD CELL COUNT (BEAKER) 4.10 M/ L 3.93-5.22 (test code = 761) HEMOGLOBIN (BEAKER) (test code = 13.0 GM/DL 11.2-15.7 410) HEMATOCRIT (BEAKER) (test code = 40.2 % 34.1-44.9 411) MEAN CORPUSCULAR VOLUME (BEAKER) 98.0 fL 79.4-94.8 H (test code = 753) MEAN CORPUSCULAR HEMOGLOBIN 31.7 pg 25.6-32.2 (BEAKER) (test code = 751) MEAN CORPUSCULAR HEMOGLOBIN CONC 32.3 GM/DL 32.2-35.5 (BEAKER) (test code = 752) RED CELL DISTRIBUTION WIDTH 12.7 % 11.7-14.4 (BEAKER) (test code = 412) PLATELET COUNT (BEAKER) (test 280 K/CU MM 150-450 code = 756) MEAN [...] (test code = 437) NEUTROPHILS ABSOLUTE COUNT 6.90 K/ L 1.56-6.13 H (BEAKER) (test code = 670) LYMPHOCYTES ABSOLUTE COUNT 0.96 K/ L 1.18-3.74 L (BEAKER) (test code = 414) MONOCYTES ABSOLUTE COUNT (BEAKER) 0.71 K/ L 0.24-0.36 H (test code = 415) EOSINOPHILS ABSOLUTE COUNT 0.13 K/ L 0.04-0.36 (BEAKER) (test code = 416) BASOPHILS ABSOLUTE COUNT (BEAKER) 0.03 K/ L 0.01-0.08 (test code = 417) IMMATURE GRANULOCYTES-RELATIVE 2 % 0-1 H PERCENT (BEAKER) (test code = 2801) CMV PCR, [id number] 15:10:00 Test Item Value Reference Range Interpretation Comments CMV VIRAL LOAD - Negative or below See_Comment CMV PC R IU/ML <300 NEGATIVE (BEAKER) the linear range OR CMV PCR LOG <2.48 (test code = of the assay [Automated mess age] 2558) (<375 copies/mL) The system which generated this result transmit marline reference range : <375- >375,000 copies/mL. The reference range was not used to interpret this result as normal/abnormal . Cytomegalovirus (CMV) infection can cause significant disease in immunosuppressed patients. However,it is common for CMV to manifest as a limited infection which is of no clinical significance in immunosuppressed patients or in healthy individuals.Viral load measurements are helpful to identify clinical CMV infection and to guide the pre-emptive management of antiviral therapy. For treatment of CMV infection due to reactivation in transplant recipients, a threshold between 4,000 and 5,000 copies/mLis suggested. For treatment of primary CMV infection, a lower threshold can be used.CMV infection may also be monitored using weekly serial measurements. Serial measurements of CMV DNA viral load can be evaluated by identifying a 10-fold change, as [...] and its performance characteristics determined by the [facility] Pathol ogy Department, Section of Molecular Pathology. It has not been cleared or approved by the U.S. Foodand Drug Administration (FDA), since FDA approval is not required for clinical use of the test. Validation was done as required by The Clinical Laboratory Improvement Amendments of 1988.CMV PCR IU/ML <300 OR CMV PCR LOG <2.48Cytomegalovirus (CMV) infection can cause significant disease in immunosuppressed patients. However, it is common for CMV to manifest as a limited infection which is of no clinical significance in immunosuppressed patients or in healthy individuals.Viral load measurements are helpful to identify clinical CMV infection and to guide the pre-emptive management of antiviral therapy. For treatment of CMV infection due to reactivation in transplant recipients, a threshold between 4,000 and 5,000 copies/mL is suggested. For treatment of primary CMV infection, a lower thresholdcan be used.CMV infection may also be monitored using weekly serial measurements. Serial measurements of CMV DNA viral load can be evaluated by identifying a 10- fold change, as well as assessing the CMV DNA viral load and the clinical context for each patient.The plasma CMV DNA viral load was detectedusing quantitative polymerase chain reaction and fluorescent monitoring of a specific hybridized probe. Genetic variation and other factors can affect the accuracy of nucleic acid testing. Therefore, the results should be interpreted in light of clinical data. A negative result may not exclude the presence of CMV disease.This test was developed and its performance characteristics determined by the [facility] Pathology Department, Section of Molecular Pathology. It has not been clearedor approved by the U.S. Food and Drug Administration (FDA), since FDA approval is not required for clinical use of the test. Validation was done as required by The Clinical Laboratory Improvement Amendments of 1988.Cytomegalovirus (CMV) infection can cause significant disease in immunosuppressed patients. However, it is common for CMV to manifest as a limited infection which is of no clinical significance in immunosuppressed patients or in healthy individuals.Viral load measurements are helpful to id entify clinical CMV infection and to guide the pre-emptive management of antiviral therapy. For treatment of CMV infection due to reactivation in transplant recipients, a threshold between 4,000 and 5,000 copies/mL is suggested. For treatment of primary CMV infection, a lower threshold can be used.CMVinfection may also be monitored using weekly serial measurements. Serial measurements of CMV DNA viral load can be evaluated by identifying a 10-fold change, as well as assessing the CMV DNA viral loadand the clinical context for each patient.The plasma [...] and its performance characteristics determined by the [facility] Pathology Department, Section of Molecular Pathology. It has not been cleared or approved by the U.S. Food and Drug Administration (FDA), since FDA approval is not required for clinical use of the test. Validation was done as required by The Clinical Laboratory Improvement Amendments of 1988.Cyt omegalovirus (CMV) infection can cause significant disease in immunosuppressed patients. However, itis common for CMV to manifest as a limited infection which is of no clinical significance in immunosuppressed patients or in healthy individuals.Viral load measurements are helpful to identify clinicalCMV infection and to guide the pre-emptive management of antiviral therapy. For treatment of CMV infection due to reactivation in transplant recipients, a threshold between 4,000 and 5,000 copies/mL issuggested. For treatment of primary CMV infection, a lower threshold can be used.CMV infection may also be monitored using weekly serial measurements. Serial measurements of CMV DNA viral load can be evaluated by identifying a 10-fold change, as well as assessing the CMV DNA viral load and the clinical context for each patient.The plasma CMV DNA viral load was detected using quantitative polymerase chain reaction and fluorescent monitoring of a specific hybridized probe. Genetic variation and other factors can affect the accuracy of nucleic acid testing. Therefore, the results should be interpretedin light of clinical data. A negative result may not exclude the presence of CMV disease.This test was developed and its performance characteristics determined by the [facility] Pathology Department, Section of Molecular Pathology. It has not been cleared or approved by the U.S. Food and Drug Administration (FDA), since FDA approval is not required for clinical use of the test. Validation was done as required by The Clinical Laboratory Improvement Amendments of 1988.Cytomegalovirus (CMV) infection can cause significant disease in immunosuppressed patients. However, it is common for CMV to manifest as a limited infection which is of no clinical significance in immunosuppressed patients or in healthy individuals.Viral load measurements are helpful to identify clinical CMV infection and to guide the pre-emptive management of antiviral therapy. For treatment of CMV infection due to reactivation in transplant recipients, a threshold between 4,000 and 5,000 copies/mL is suggested. For treatment of primary CMV infection, a lower threshold can be used.CMV infection may also be monitoredusing weekly serial measurements. Serial measurements of CMV DNA viral load can be evaluated by identifying a 10-fold change, as [...] presence of CMV disease.This test was developed andits performance characteristics determined by the [facility] Pathology Department, Section of Molecular Pathology. It has not been cleared or approved by the U.S. Food and Drug Administration (FDA), since FDA approval is not required for clinical use of the test. Validation was done as required by The Clinical Laboratory Improvement Amendments of 1988.TACROLIMUS [id number] 12:41:00 Test Item Value Reference Range Interpretation Comments TACROLIMUS BLOOD 6.6 ng/mL 10.0-20.0 L Test perfor med on Jaffe (BEAKER) (test code Architec t Immunoassay = 657) system with Chemiluminescen t Microparticle I mmunoassay (CMIA) technolo gy. Family Service Aide ID - AAHAMIDURINALYSIS W/ REFLEX URINE [id number] 10:31:00 Test Item Value Reference Range Interpretation Comments COLOR (BEAKER) (test code = 470) Light Yellow CLARITY (BEAKER) (test code = Clear 469) SPECIFIC GRAVITY UA (BEAKER) 1.012 1.001-1.035 (test code = 468) PH UA (BEAKER) (test code = 467) 6.0 5.0-8.0 PROTEIN UA (BEAKER) (test code = 50 mg/dL Negative A 464) GLUCOSE UA (BEAKER) [...] code = Few 517) SQUAMOUS EPITHELIAL (BEAKER) 5 /HPF (test code = 516) CRYSTALS, URINE (BEAKER) (test None Seen code = 1521) SOURCE(BEAKER) (test code = 2795) Family Service Aide ID - [auto]Family Service Aide ID - techCREATININE, RANDOM [id number] 10:17:00 Test Item Value Reference Range Interpretation Comments CREATININE URINE (BEAKER) (test 70.1 mg/dL code = 375) Reference Range: No NormalsOperator ID - BSPROTEIN, RANDOM [id number] 10:17:00 Test Item Value Reference Range Interpretation Comments PROTEIN, URINE (BEAKER) (test code = 49 mg/dL 0-14 H 1569) Family Service Aide ID - BSCOMPREHENSIVE METABOLIC [id number] 10:14:00 Test Item Value Reference Range Interpretation Comments TOTAL PROTEIN 7.4 gm/dL 6.0-8.3 (BEAKER) (test code = 770) ALBUMIN (BEAKER) 4.3 g/dL 3.5-5.0 (test code = 1145) ALKALINE PHOSPHATASE 118 U/L 40-150 (BEAKER) (test [...] (BEAKER) (test code = 354) CREATININE (BEAKER) 1.32 mg/dL 0.57-1.25 H (test code = 358) GLUCOSE RANDOM 140 mg/dL 70-105 H (BEAKER) (test code = 652) CALCIUM (BEAKER) 10.0 mg/dL 8.4-10.2 (test code = 697) AST (SGOT) (BEAKER) 25 U/L 5-34 (test code = 353) ALT (SGPT) (BEAKER) 36 U/L 6-55 (test code = 347) EGFR (BEAKER) (test 43 mL/min/1.73 ESTIMA MARLINE GFR IS code = 1092) sq m NOT ACCURATE CREATININE CLEARANCE IN PREDICTING GLOMERULAR FILTRATION RATE . ESTIMATED GFR I S NOT APPLICABLE FOR DIALYSIS PATIEN TS. Family Service Aide ID - MAYRA [id number] 10:14:00 Test Item Value Reference Range Interpretation Comments PHOSPHORUS (BEAKER) (test code = 3.5 mg/dL 2.3-4.7 604) Family Service Aide ID - MAYRA WCBC W/PLT COUNT & AUTO [id number] 09:57:00 Test Item Value Reference Range Interpretation Comments WHITE BLOOD CELL COUNT (BEAKER) 10.8 K/ L 3.5-10.5 H (test code = 775) RED BLOOD CELL COUNT (BEAKER) 4.21 M/ L 3.93-5.22 (test code = 761) HEMOGLOBIN (BEAKER) (test code = 13.6 GM/DL 11.2-15.7 410) HEMATOCRIT (BEAKER) (test code = 40.7 % 34.1-44.9 411) MEAN CORPUSCULAR VOLUME (BEAKER) 96.7 fL 79.4-94.8 H (test code = 753) MEAN CORPUSCULAR HEMOGLOBIN 32.3 pg 25.6-32.2 H (BEAKER) (test code = 751) MEAN CORPUSCULAR HEMOGLOBIN CONC 33.4 GM/DL 32.2-35.5 (BEAKER) (test code = 752) RED CELL DISTRIBUTION WIDTH 12.8 % 11.7-14.4 (BEAKER) (test code = 412) PLATELET COUNT (BEAKER) (test 295 K/CU MM 150-450 code = 756) MEAN [...] (test code = 437) NEUTROPHILS ABSOLUTE COUNT 8.36 K/ L 1.56-6.13 H (BEAKER) (test code = 670) LYMPHOCYTES ABSOLUTE COUNT 1.27 K/ L 1.18-3.74 (BEAKER) (test code = 414) MONOCYTES ABSOLUTE COUNT (BEAKER) 0.77 K/ L 0.24-0.36 H (test code = 415) EOSINOPHILS ABSOLUTE COUNT 0.12 K/ L 0.04-0.36 (BEAKER) (test code = 416) BASOPHILS ABSOLUTE COUNT (BEAKER) 0.06 K/ L 0.01-0.08 (test code = 417) IMMATURE GRANULOCYTES-RELATIVE 2 % 0-1 H PERCENT (BEAKER) (test code = 2801) CMV PCR, [id number] 22:23:00 Test Item Value Reference Range Interpretation Comments CMV VIRAL LOAD - Negative or below See_Comment CMV PC R IU/ml <300 NEGATIVE (BEAKER) the linear range orCMV PCR LOG <2.48 (test code = of the assay [Automated mess age] 9286) (<375 copies/mL) The system which generated this result transmit marline reference range : <375- >375,000 copies/mL. The reference range was not used to interpret this result as normal/abnormal . Cytomegalovirus (CMV) infection can cause significant disease in immunosuppressed patients. However,it is common for CMV to manifest as a limited infection which is of no clinical significance in immunosuppressed patients or in healthy individuals.Viral load measurements are helpful to identify clinical CMV infection and to guide the pre-emptive management of antiviral therapy. For treatment of CMV infection due to reactivation in transplant recipients, a threshold between 4,000 and 5,000 copies/mLis suggested. For treatment of primary CMV infection, a lower threshold can be used.CMV infection may also be monitored using weekly serial measurements. Serial measurements of CMV DNA viral load can be evaluated by identifying a 10-fold change, as [...] and its performance characteristics determined by the [facility] Pathol ogy Department, Section of Molecular Pathology. It has not been cleared or approved by the U.S. Foodand Drug Administration (FDA), since FDA approval is not required for clinical use of the test. Validation was done as required by The Clinical Laboratory Improvement Amendments of 1988.TACROLIMUS LEVEL 2020-11-23 13:32:00 Test Item Value Reference Range Interpretation Comments TACROLIMUS BLOOD 8.8 ng/mL 10.0-20.0 L Test perfor med on Jaffe (BEAKER) (test code Architec t Immunoassay = 657) system with Chemiluminescen t Microparticle I mmunoassay (CMIA) jacquelin marie Family Service Aide ID - AAHAMIDURINALYSIS W/ REFLEX URINE [id number] 12:04:00 Test Item Value Reference Range Interpretation [...] code = Rare 517) SQUAMOUS EPITHELIAL (BEAKER) 5 /HPF (test code = 516) CRYSTALS, URINE (BEAKER) (test None Seen code = 1521) YEAST (BEAKER) (test code = Occasional 1585) SOURCE(BEAKER) (test code = 1617) Family Service Aide ID - [auto]Family Service Aide ID - techCREATININE, RANDOM [id number] 11:56:00 Test Item Value Reference Range Interpretation Comments CREATININE URINE (BEAKER) (test 64.8 mg/dL code = 375) Reference Range: No NormalsOperator ID - CHETANAYA LPROTEIN, RANDOM [id number] 11:56:00 Test Item Value Reference Range Interpretation Comments PROTEIN, URINE (BEAKER) (test code = 44 mg/dL 0-14 H 1569) Family Service Aide ID - RICHELLE [id number] 11:55:00 Test Item Value Reference Range Interpretation Comments PHOSPHORUS (BEAKER) (test code = 3.5 mg/dL 2.3-4.7 604) Family Service Aide ID - ADMINCOMPREHENSIVE METABOLIC [id number] 11:55:00 Test Item Value Reference Range Interpretation Comments TOTAL PROTEIN 7.7 gm/dL 6.0-8.3 (BEAKER) (test code = 770) ALBUMIN (BEAKER) 4.3 g/dL 3.5-5.0 (test code = 1145) ALKALINE PHOSPHATASE 133 U/L 40-150 (BEAKER) (test code = 346) BILIRUBIN TOTAL 0.5 mg/dL 0.2-1.2 (BEAKER) (test code = 377) SODIUM (BEAKER) (test 141 meq/L 136-145 code = 381) POTASSIUM (BEAKER) 4.3 meq/L 3.5-5.1 (test code = 379) CHLORIDE (BEAKER) 104 meq/L 98-107 (test code = 382) CO2 (BEAKER) (test 23 meq/L 22-29 code = 355) BLOOD UREA NITROGEN 16 mg/dL 7-21 (BEAKER) (test code = 354) CREATININE (BEAKER) 1.30 mg/dL 0.57-1.25 H (test code = 358) GLUCOSE RANDOM 122 mg/dL 70-105 H (BEAKER) (test code = 652) CALCIUM (BEAKER) 9.9 mg/dL 8.4-10.2 (test code = 697) AST (SGOT) (BEAKER) 26 U/L 5-34 (test code = 353) ALT (SGPT) (BEAKER) 41 U/L 6-55 (test code = 347) EGFR (BEAKER) (test 43 mL/min/1.73 ESTIMA MARLINE GFR IS code = 1092) sq m NOT ACCURATE CREATININE CLEARANCE IN PREDICTING GLOMERULAR FILTRATION RATE . ESTIMATED GFR I S NOT APPLICABLE FOR DIALYSIS PATIEN TS. Family Service Aide ID - ADMINSpecimen slightly lipemicCBC W/PLT COUNT & AUTO [id number] 11:51:00 Test Item Value Reference Range Interpretation Comments WHITE BLOOD CELL COUNT (BEAKER) 7.8 K/ L 3.5-10.5 (test code = 775) RED BLOOD CELL COUNT (BEAKER) 4.42 M/ L 3.93-5.22 (test code = 761) HEMOGLOBIN (BEAKER) (test code = 14.0 GM/DL 11.2-15.7 410) HEMATOCRIT (BEAKER) (test code = 43.2 % 34.1-44.9 411) MEAN CORPUSCULAR VOLUME (BEAKER) 97.7 fL 79.4-94.8 H (test code = 753) MEAN CORPUSCULAR HEMOGLOBIN 31.7 pg 25.6-32.2 (BEAKER) (test code = 751) MEAN CORPUSCULAR HEMOGLOBIN CONC 32.4 GM/DL 32.2-35.5 (BEAKER) (test code = 752) RED CELL DISTRIBUTION WIDTH 13.2 % 11.7-14.4 (BEAKER) (test code = 412) PLATELET COUNT (BEAKER) (test 285 K/CU MM 150-450 code = 756) MEAN [...] (test code = 437) NEUTROPHILS ABSOLUTE COUNT 5.81 K/ L 1.56-6.13 (BEAKER) (test code = 670) LYMPHOCYTES ABSOLUTE COUNT 1.00 K/ L 1.18-3.74 L (BEAKER) (test code = 414) MONOCYTES ABSOLUTE COUNT (BEAKER) 0.71 K/ L 0.24-0.36 H (test code = 415) EOSINOPHILS ABSOLUTE COUNT 0.12 K/ L 0.04-0.36 (BEAKER) (test code = 416) BASOPHILS ABSOLUTE COUNT (BEAKER) 0.04 K/ L 0.01-0.08 (test code = 417) IMMATURE GRANULOCYTES-RELATIVE 2 % 0-1 H PERCENT (BEAKER) (test code = 2801) CMV PCR, [id number] 21:13:00 Test Item Value Reference Range Interpretation Comments CMV VIRAL LOAD - Negative or below See_Comment Negati ve or below NEGATIVE (BEAKER) the linear range the Li near Range (test code = 2558) of the assay (<375 of the assay (<300 copies/mL) IU / mL) Negati ve or below the Linear Range of the assay (<2.4 8 Log IU / mL) [Automated message] The system which generated this result transmit marline reference range : <375- >375,000 copies/mL. The reference range was not used to interpret this result as normal/abnormal . Very low level of CMV detected, which is below the linear range of the assay (<375 copies/mL). See below for general statements regarding suggested treatment thresholds for interpretation of this quantitative test result.Cytomegalovirus (CMV) infection can cause significant disease in immunosuppressed patients. However, it is common for CMV to manifest as a limited infection which is of no clinical significance in immunosuppressed patients or in healthy individuals.Viral load measurements are helpful to identify clinical CMV infection and to guide the pre-emptive management of antiviral therapy.For treatment of CMV infection due to reactivation in transplant recipients, a threshold between 4,000 and 5,000 copies/mL is suggested. For treatment of primary CMV infection, a lower threshold can be used.CMV infection may also be monitored using weekly serial measurements. Serial measurements of CMV DNA viral load can be evaluated by identifying a 10- fold change, as well as assessing the CMV DNA viral load and the clinical context for each patient.The plasma CMV DNA viral load was detected using q uantitative polymerase chain reaction and fluorescent monitoring of a specific hybridized probe. Genetic variation and other factors can affect the accuracy of nucleic acid testing. Therefore, the results should be interpreted in light of clinical data. A negative result may not exclude the presence of CMV disease.This test was developed and its performance characteristics determined by the [facility] Pathology Department, Section of Molecular Pathology. It has not been cleared or approved by the U.S. Food and Drug Administration (FDA), since FDA approval is not required for clinicaluse of the test. Validation was done as required by The Clinical Laboratory Improvement Amendments of 1988.Cytomegalovirus (CMV) infection can cause significant disease in immunosuppressed patients. However, it is common for CMV to manifest as a limited infection which is of no clinical significance in immunosuppressed patients or in healthy individuals.Viral load measurements are helpful to identifyclinical CMV infection and to guide the pre-emptive management of antiviral therapy. For treatment of CMV infection due to reactivation in transplant recipients, a threshold between 4,000 and 5,000 copies/mL is suggested. For treatment of primary CMV infection, a lower threshold can be used.CMV infection may also be monitored using weekly serial measurements. Serial measurements of CMV DNA viral loadcan be evaluated by identifying a 10- fold change, as well as assessing the CMV [...] may not exclude the presence of CMV disease.Thi s test was developed and its performance characteristics [facility]. It has not been cleared or approved by the U.S. Food and Drug Administration (FDA), since FDA approval is not required for clinical use of the test. Validation was done as required by The Clinical Laboratory Improvement Amendments of 1988.Cytomegalovirus (CMV) infection can cause significant disease in immunosuppressed patients. However, it is common for CMV to manifest as a limited infection which is of no clinical significance in immunosuppressed patients or in healthy individuals.Viral load measurements are helpful to identify clinical CMV infection and to guide the pre-emptive management of antiviral therapy. For treatment of CMV infection due to reactivation in transplant recipients, a threshold between 4,000 and 5,000 copies/mL is suggest ed. For treatment of primary CMV infection, a lower threshold can be used.CMV infection may also be monitored using weekly serial measurements. Serial measurements of CMV DNA viral load can be evaluated by identifying a 10-fold change, as well as assessing the CMV DNA viral load and the clinical context for each patient.The plasma CMV DNA viral load was detected using quantitative polymerase chain reaction and fluorescent monitoring of a specific hybridized probe. Genetic variation and other factorscan affect the accuracy of nucleic acid testing. Therefore, the results should be interpreted in light of clinical data. A negative result may not exclude the presence of CMV disease.This test was developed and its performance characteristics determined by the [facility] Pathology Department, Section of Molecular Pathology. It has not been cleared or approved by the U.S. Food and Drug Administration (FDA), since FDA approval is not required for clinical use of the test. Validation wasdone as required by The Clinical Laboratory Improvement Amendments of 1988.Cytomegalovirus (CMV) infection can cause significant disease in immunosuppressed patients. However, it is common for CMV to manifest as a limited infection which is of no clinical significance in immunosuppressed patients or in healthy individuals.Viral load measurements are helpful to identify clinical CMV infection and to guide the pre-emptive management of antiviral therapy. For treatment of CMV infection due to reactivation in transplant recipients, a threshold between 4,000 and 5,000 copies/mL is suggested. For treatment of primary CMV infection, a lower threshold can be used.CMV infection may also be monitored using weekly serial measurements. Serial measurements of CMV DNA viral load can be evaluated by identifyinga 10- fold change, as well as assessing the CMV [...] and its performance characteristics determined by the [facility] Pathology Department, Section of Molecular Pathology. It has not been cleared or approved by the U.S. Food and Drug Administration (FDA), since FDA approval is not required for clinical use of the test. Validation was done as required by The Clinical Laboratory Improvement Amendments of 1988.Cytomegalovirus (CMV) infection can causesignificant disease in immunosuppressed patients. However, it is common for CMV to manifest as a limited infection which is of no clinical significance in immunosuppressed patients or in healthy individuals.Viral load measurements are helpful to identify clinical CMV infection and to guide the pre-emptive management of antiviral therapy. For treatment of CMV infection due to reactivation in transplant recipients, a threshold between 4,000 and 5,000 copies/mL is suggested. For treatment of primary CMV infection, a lower threshold can be used.CMV infection may also be monitored using weekly serial measurements. Serial measurements of CMV DNA viral load can be evaluated by identifying a 10- fold change, as well as assessing the CMV [...] and its performance characteristics determined by the [facility] Pathology Department, Section of Molecular Pathology. It has not been cleared or approved by the U.S. Food and Drug Administration (FDA), since FDA approval is not required for clinical use of the test. Validation was done as required by The Clinical Laboratory Improvement Amendments of 1988.URINALYSIS W/ REFLEX URINE [id number] 15:02:00 Test Item Value Reference Range Interpretation Comments COLOR (BEAKER) (test code = 470) Yellow CLARITY (BEAKER) (test code = 469) Clear SPECIFIC GRAVITY UA (BEAKER) (test 1.020 1.005-1.030 code = 468) PH UA (BEAKER) (test code = 467) 6.0 5.0-9.0 PROTEIN UA (BEAKER) (test code = 100 [...] 520) 0 /HPF SQUAMOUS EPITHELIAL (BEAKER) (test < /HPF code = 516) SOURCE(BEAKER) (test code = 2795) TACROLIMUS [id number] 13:10:00 Test Item Value Reference Range Interpretation Comments TACROLIMUS BLOOD 7.0 ng/mL 10.0-20.0 L Test perfor med on Jaffe (BEAKER) (test code Architec t Immunoassay = 657) system with Chemiluminescen t Microparticle I mmunoassay (CMIA) jacquelin gy. Family Service Aide ID - AAHAMIDCREATININE, RANDOM [id number] 11:58:00 Test Item Value Reference Range Interpretation Comments CREATININE URINE (BEAKER) (test 122.1 mg/dL code = 375) Reference Range: No NormalsOperator ID - RICHELLE LPROTEIN, RANDOM [id number] 11:58:00 Test Item Value Reference Range Interpretation Comments PROTEIN, URINE (BEAKER) (test code 121 mg/dL 0-14 H = 1569) Family Service Aide ID - RICHELLE [id number] 11:50:00 Test Item Value Reference Range Interpretation Comments PHOSPHORUS (BEAKER) (test code = 3.2 mg/dL 2.3-4.7 604) Family Service Aide ID - RICHELLE LCOMPREHENSIVE METABOLIC [id number] 11:50:00 Test Item Value Reference Range Interpretation Comments TOTAL PROTEIN 7.8 gm/dL 6.0-8.3 (BEAKER) (test code = 770) ALBUMIN (BEAKER) 4.3 g/dL 3.5-5.0 (test code = 1145) ALKALINE PHOSPHATASE 123 U/L 40-150 (BEAKER) (test code = 346) BILIRUBIN TOTAL 0.8 mg/dL 0.2-1.2 (BEAKER) (test code = 377) SODIUM (BEAKER) (test 138 meq/L 136-145 code = 381) POTASSIUM (BEAKER) 4.0 meq/L 3.5-5.1 (test code = 379) CHLORIDE (BEAKER) 101 meq/L 98-107 (test code = 382) CO2 (BEAKER) (test 24 meq/L 22-29 code = 355) BLOOD UREA NITROGEN 19 mg/dL 7-21 (BEAKER) (test code = 354) CREATININE (BEAKER) 1.43 mg/dL 0.57-1.25 H (test code = 358) GLUCOSE RANDOM 142 mg/dL 70-105 H (BEAKER) (test code = 652) CALCIUM (BEAKER) 10.1 mg/dL 8.4-10.2 (test code = 697) AST (SGOT) (BEAKER) 26 U/L 5-34 (test code = 353) ALT (SGPT) (BEAKER) 40 U/L 6-55 (test code = 347) EGFR (BEAKER) (test 39 mL/min/1.73 ESTIMA MARLINE GFR IS code = 1092) sq m NOT ACCURATE CREATININE CLEARANCE IN PREDICTING GLOMERULAR FILTRATION RATE . ESTIMATED GFR I S NOT APPLICABLE FOR DIALYSIS PATIEN TS. Family Service Aide ID - PIAYA LSpecimen slightly lipemicCBC W/PLT COUNT & AUTO [id number] 11:34:00 Test Item Value Reference Range Interpretation Comments WHITE BLOOD CELL COUNT (BEAKER) 10.4 K/ L 3.5-10.5 (test code = 775) RED BLOOD CELL COUNT (BEAKER) 4.44 M/ L 3.93-5.22 (test code = 761) HEMOGLOBIN (BEAKER) (test code = 14.2 GM/DL 11.2-15.7 410) HEMATOCRIT (BEAKER) (test code = 43.2 % 34.1-44.9 411) MEAN CORPUSCULAR VOLUME (BEAKER) 97.3 fL 79.4-94.8 H (test code = 753) MEAN CORPUSCULAR HEMOGLOBIN 32.0 pg 25.6-32.2 (BEAKER) (test code = 751) [...] (test code = 437) NEUTROPHILS ABSOLUTE COUNT 8.62 K/ L 1.56-6.13 H (BEAKER) (test code = 670) LYMPHOCYTES ABSOLUTE COUNT 0.90 K/ L 1.18-3.74 L (BEAKER) (test code = 414) MONOCYTES ABSOLUTE COUNT (BEAKER) 0.45 K/ L 0.24-0.36 H (test code = 415) EOSINOPHILS ABSOLUTE COUNT 0.16 K/ L 0.04-0.36 (BEAKER) (test code = 416) BASOPHILS ABSOLUTE COUNT (BEAKER) 0.05 K/ L 0.01-0.08 (test code = 417) IMMATURE GRANULOCYTES-RELATIVE 2 % 0-1 H PERCENT (BEAKER) (test code = 2801) TACROLIMUS [id number] 12:31:00 Test Item Value Reference Range Interpretation Comments TACROLIMUS BLOOD 11.2 ng/mL 10.0-20.0 Test perfor med on Jaffe (BEAKER) (test code Architec t Immunoassay = 657) system with Chemiluminescen t Microparticle Immunoassay (CM IA) technology. Family Service Aide ID - FAUSTOCREATININE, RANDOM [id number] 12:09:00 Test Item Value Reference Range Interpretation Comments CREATININE URINE (BEAKER) (test 63.2 mg/dL code = 375) Reference Range: No NormalsOperator ID - NABEEL FPROTEIN, RANDOM URINE 2020-10-26 12:09:00 Test Item Value Reference Range Interpretation Comments PROTEIN, URINE (BEAKER) (test code = 64 mg/dL 0-14 H 1569) Family Service Aide ID - NABEEL FURINALYSIS W/ REFLEX URINE [id number] 10:51:00 Test Item Value Reference Range Interpretation Comments COLOR (BEAKER) (test code = 470) Light Yellow CLARITY (BEAKER) (test code = Clear 469) SPECIFIC GRAVITY UA (BEAKER) 1.011 1.001-1.035 (test code = 468) PH UA (BEAKER) (test code = 467) 6.0 5.0-8.0 PROTEIN UA (BEAKER) (test code = 50 mg/dL Negative A 464) GLUCOSE UA (BEAKER) [...] 519) WBC UA (BEAKER) (test code = 3 /HPF 520) BACTERIA (BEAKER) (test code = None Seen 517) SQUAMOUS EPITHELIAL (BEAKER) 4 /HPF (test code = 516) CRYSTALS, URINE (BEAKER) (test None Seen code = 1521) AMORPHOUS CRYSTALS (BEAKER) Rare (test code = 1584) SOURCE(BEAKER) (test code = 2795) Family Service Aide ID - [auto]Family Service Aide ID - [id number] 10:45:00 Test Item Value Reference Range Interpretation Comments PHOSPHORUS (BEAKER) (test code = 3.4 mg/dL 2.3-4.7 604) Family Service Aide ID - DELANSON FCOMPREHENSIVE METABOLIC [id number] 10:45:00 Test Item Value Reference Range Interpretation Comments TOTAL PROTEIN 7.6 gm/dL 6.0-8.3 (BEAKER) (test code = 770) ALBUMIN (BEAKER) 4.1 g/dL 3.5-5.0 (test code = 1145) ALKALINE PHOSPHATASE 134 U/L 40-150 (BEAKER) (test code = 346) BILIRUBIN TOTAL 0.5 mg/dL 0.2-1.2 (BEAKER) (test code = 377) SODIUM (BEAKER) (test 140 meq/L 136-145 code = 381) POTASSIUM (BEAKER) 5.0 meq/L [...] 347) EGFR (BEAKER) (test 44 mL/min/1.73 ESTIMA MARLINE GFR IS code = 1092) sq m NOT ACCURATE CREATININE CLEARANCE IN PREDICTING GLOMERULAR FILTRATION RATE . ESTIMATED GFR I S NOT APPLICABLE FOR DIALYSIS PATIEN TS. Family Service Aide ID - NABEEL FSpecimen markedly lipemicCBC W/PLT COUNT & AUTO [id number] 10:27:00 Test Item Value Reference Range Interpretation Comments WHITE BLOOD CELL COUNT (BEAKER) 8.4 K/ L 3.5-10.5 (test code = 775) RED BLOOD CELL COUNT (BEAKER) 4.34 M/ L 3.93-5.22 (test code = 761) HEMOGLOBIN (BEAKER) (test code = 13.8 GM/DL 11.2-15.7 410) HEMATOCRIT (BEAKER) (test code = 42.3 % 34.1-44.9 411) MEAN CORPUSCULAR VOLUME (BEAKER) 97.5 fL 79.4-94.8 H (test code = 753) MEAN CORPUSCULAR HEMOGLOBIN 31.8 pg 25.6-32.2 (BEAKER) (test code = 751) MEAN CORPUSCULAR HEMOGLOBIN CONC 32.6 GM/DL 32.2-35.5 (BEAKER) (test code = 752) RED CELL DISTRIBUTION WIDTH 13.4 % 11.7-14.4 (BEAKER) (test code = 412) PLATELET COUNT (BEAKER) (test 267 K/CU MM 150-450 code = 756) MEAN PLATELET VOLUME (BEAKER) 10.3 fL 9.4-12.3 (test code = 754) NUCLEATED RED BLOOD CELLS 0 /100 WBC 0-0 (BEAKER) (test code = 413) NEUTROPHILS RELATIVE PERCENT 76 % (BEAKER) (test code = 429) LYMPHOCYTES RELATIVE PERCENT 10 % (BEAKER) (test code = 430) MONOCYTES RELATIVE PERCENT 7 % (BEAKER) (test code = 431) EOSINOPHILS RELATIVE PERCENT 2 % (BEAKER) (test code = 432) BASOPHILS RELATIVE PERCENT 1 % (BEAKER) (test code = 437) NEUTROPHILS ABSOLUTE COUNT 6.40 K/ L 1.56-6.13 H (BEAKER) (test code = 670) LYMPHOCYTES ABSOLUTE COUNT 0.86 K/ L 1.18-3.74 L (BEAKER) (test code = 414) MONOCYTES ABSOLUTE COUNT (BEAKER) 0.57 K/ L 0.24-0.36 H (test code = 415) EOSINOPHILS ABSOLUTE COUNT 0.14 K/ L 0.04-0.36 (BEAKER) (test code = 416) BASOPHILS ABSOLUTE COUNT (BEAKER) 0.06 K/ L 0.01-0.08 (test code = 417) IMMATURE GRANULOCYTES-RELATIVE 4 % 0-1 H PERCENT (BEAKER) (test code = 2801) TACROLIMUS [id number] 12:54:00 Test Item Value Reference Range Interpretation Comments TACROLIMUS BLOOD 12.1 ng/mL 10.0-20.0 Test perfor med on Jaffe (BEAKER) (test code Architec t Immunoassay = 657) system with Chemiluminescen t Microparticle Immunoassay (CM IA) technology. Family Service Aide ID - RMURINALYSIS W/ REFLEX URINE [id number] 11:59:00 Test Item Value Reference Range Interpretation [...] code = Rare 517) SQUAMOUS EPITHELIAL (BEAKER) 6 /HPF (test code = 516) SOURCE(BEAKER) (test code = 7253) Family Service Aide ID - [auto]Family Service Aide ID - [id number] 10:40:00 Test Item Value Reference Range Interpretation Comments PHOSPHORUS (BEAKER) (test code = 3.6 mg/dL 2.3-4.7 604) Family Service Aide ID - NABEEL FCOMPREHENSIVE METABOLIC [id number] 10:40:00 Test Item Value Reference Range Interpretation Comments TOTAL PROTEIN 7.4 gm/dL 6.0-8.3 (BEAKER) (test code = 770) ALBUMIN (BEAKER) 4.1 g/dL 3.5-5.0 (test code = 1145) ALKALINE PHOSPHATASE 138 U/L 40-150 (BEAKER) (test code = 346) BILIRUBIN TOTAL 0.7 mg/dL 0.2-1.2 (BEAKER) (test code = 377) SODIUM (BEAKER) (test 137 meq/L 136-145 code = 381) POTASSIUM (BEAKER) 4.4 meq/L 3.5-5.1 (test code = 379) CHLORIDE (BEAKER) 102 meq/L 98-107 (test code = 382) CO2 (BEAKER) (test 19 meq/L 22-29 L code = 355) BLOOD UREA NITROGEN 16 mg/dL 7-21 (BEAKER) (test code = 354) CREATININE (BEAKER) 1.19 mg/dL 0.57-1.25 (test code = 358) GLUCOSE RANDOM 193 mg/dL 70-105 H (BEAKER) (test code = 652) CALCIUM (BEAKER) 9.8 mg/dL 8.4-10.2 (test code = 697) AST (SGOT) (BEAKER) 25 U/L 5-34 (test code = 353) ALT (SGPT) (BEAKER) 41 U/L 6-55 (test code = 347) EGFR (BEAKER) (test 48 mL/min/1.73 ESTIMA MARLINE GFR IS code = 1092) sq m NOT ACCURATE CREATININE CLEARANCE IN PREDICTING GLOMERULAR FILTRATION RATE . ESTIMATED GFR I S NOT APPLICABLE FOR DIALYSIS PATIEN TS. Family Service Aide ID - NABEEL FSpecimen moderately lipemicCREATININE, RANDOM URINE 2020-10-12 10:37:00 Test Item Value Reference Range Interpretation Comments CREATININE URINE (BEAKER) (test 51.7 mg/dL code = 375) Reference Range: No NormalsOperator ID - NABEEL FPROTEIN, RANDOM URINE 2020-10-12 10:37:00 Test Item Value Reference Range Interpretation Comments PROTEIN, URINE (BEAKER) (test code = 63 mg/dL 0-14 H 1569) Family Service Aide ID - NABEEL FCBC W/PLT COUNT & AUTO [id number] 10:21:00 Test Item Value Reference Range Interpretation Comments WHITE BLOOD CELL COUNT (BEAKER) 5.7 K/ L 3.5-10.5 (test code = 775) RED BLOOD CELL COUNT (BEAKER) 4.37 M/ L 3.93-5.22 (test code = 761) HEMOGLOBIN (BEAKER) (test code = 13.8 GM/DL 11.2-15.7 410) HEMATOCRIT (BEAKER) (test code = 42.4 % 34.1-44.9 411) MEAN CORPUSCULAR VOLUME (BEAKER) 97.0 fL 79.4-94.8 H (test code = 753) MEAN CORPUSCULAR HEMOGLOBIN 31.6 pg 25.6-32.2 (BEAKER) (test code = 751) MEAN CORPUSCULAR HEMOGLOBIN CONC 32.5 GM/DL 32.2-35.5 (BEAKER) (test code = 752) RED CELL DISTRIBUTION WIDTH 13.3 % 11.7-14.4 (BEAKER) (test code = 412) PLATELET COUNT (BEAKER) (test 269 K/CU MM 150-450 code = 756) MEAN [...] (test code = 437) NEUTROPHILS ABSOLUTE COUNT 3.90 K/ L 1.56-6.13 (BEAKER) (test code = 670) LYMPHOCYTES ABSOLUTE COUNT 0.95 K/ L 1.18-3.74 L (BEAKER) (test code = 414) MONOCYTES ABSOLUTE COUNT (BEAKER) 0.46 K/ L 0.24-0.36 H (test code = 415) EOSINOPHILS ABSOLUTE COUNT 0.11 K/ L 0.04-0.36 (BEAKER) (test code = 416) BASOPHILS ABSOLUTE COUNT (BEAKER) 0.05 K/ L 0.01-0.08 (test code = 417) IMMATURE GRANULOCYTES-RELATIVE 4 % 0-1 H PERCENT (BEAKER) (test code = 2801) CMV PCR, [id number] 12:05:00 Test Item Value Reference Range Interpretation Comments CMV VIRAL LOAD - POSITIVE Se e scanned report. (BEAKER) (test code = 1557) CMV VIRAL LOAD - NEGATIVE Se e scanned report. (BEAKER) (test code = 2558) TEST PERFORMED BY Glam .fr FranceTACROLIMUS [id number] 13:17:00 Test Item Value Reference Range Interpretation Comments TACROLIMUS BLOOD 9.0 ng/mL 10.0-20.0 L Test perfor med on Jaffe (BEAKER) (test code Architec t Immunoassay = 657) system with Chemiluminescen t Microparticle I mmunoassay (CMIA) technolo gy. Family Service Aide ID - RMCREATININE, RANDOM [id number] 11:31:00 Test Item Value Reference Range Interpretation Comments CREATININE URINE (BEAKER) (test 32.1 mg/dL code = 375) Reference Range: No NormalsOperator ID - RICHELLE LPROTEIN, RANDOM [id number] 11:31:00 Test Item Value Reference Range Interpretation Comments PROTEIN, URINE (BEAKER) (test code = 46 mg/dL 0-14 H 1569) Family Service Aide ID - RICHELLE [id number] 11:05:00 Test Item Value Reference Range Interpretation Comments PHOSPHORUS (BEAKER) (test code = 3.3 mg/dL 2.3-4.7 604) Family Service Aide ID - RICHELLE LCOMPREHENSIVE METABOLIC [id number] 11:05:00 Test Item Value Reference Range Interpretation [...] (test code = 697) AST (SGOT) (BEAKER) 34 U/L 5-34 (test code = 353) ALT (SGPT) (BEAKER) 54 U/L 6-55 (test code = 347) EGFR (BEAKER) (test 44 mL/min/1.73 ESTIMA MARLINE GFR IS code = 1092) sq m NOT ACCURATE CREATININE CLEARANCE IN PREDICTING GLOMERULAR FILTRATION RATE . ESTIMATED GFR I S NOT APPLICABLE FOR DIALYSIS PATIEN TS. Family Service Aide ID - PIAYA LSpecimen slightly lipemicCBC W/PLT COUNT & AUTO [id number] 11:00:00 Test Item Value Reference Range Interpretation Comments WHITE BLOOD CELL COUNT (BEAKER) 5.1 K/ L 3.5-10.5 (test code = 775) RED BLOOD CELL COUNT (BEAKER) 4.58 M/ L 3.93-5.22 (test code = 761) HEMOGLOBIN (BEAKER) (test code = 14.5 GM/DL 11.2-15.7 410) HEMATOCRIT (BEAKER) (test code = 44.3 % 34.1-44.9 411) MEAN CORPUSCULAR VOLUME (BEAKER) 96.7 fL [...] (BEAKER) (test code = 413) (CELLAVISION MANUAL DIFF)2020-10-05 11:00:00 Test Item Value Reference Range Interpretation Comments NEUTROPHILS - REL 80 % (CELLAVISION)(BEAKER) (test code = 2816) LYMPHOCYTES - REL 7 % (CELLAVISION)(BEAKER) (test code = 2817) MONOCYTES - REL 2 % (CELLAVISION)(BEAKER) (test code = 2818) EOSINOPHILS - REL 4 % (CELLAVISION)(BEAKER) (test code = 2819) MYELOCYTES - REL 3 % 0-0 H (CELLAVISION)(BEAKER) (test code = 2822) ATYPICAL LYMPHOCYTES - REL 3 % 0-0 H (CELLAVISION)(BEAKER) (test code = 2829) NEUTROPHILS - ABS 4.08 K/ul 1.56-6.13 (CELLAVISION)(BEAKER) (test code = 2830) LYMPHOCYTES - ABS 0.36 K/ul 1.18-3.74 L (CELLAVISION)(BEAKER) (test code = 2831) MONOCYTES - ABS 0.10 K/uL 0.24-0.36 L (CELLAVISION)(BEAKER) (test code = 2832) EOSINOPHILS - ABS 0.20 K/uL 0.04-0.36 (CELLAVISION)(BEAKER) (test code = 2834) MYELOCYTES-ABS 0.15 K/uL 0.00-0.00 H (CELLAVISION)(BEAKER) (test code = 2837) ATYPICAL LYMPHOCYTES - ABS 0.15 K/uL 0.00-0.00 H (CELLAVISION)(BEAKER) (test code = 1088) TOTAL COUNTED (BEAKER) (test code = 100 1351) RBC MORPHOLOGY (BEAKER) (test code Normal = 762) WBC MORPHOLOGY (BEAKER) (test code Normal = 487) PLT MORPHOLOGY (BEAKER) (test code Normal = 486) ARTIFACT (CELLAVISION)(BEAKER) Present (test code = 3432) PLATELET CONCENTRATION Adequate (CELLAVISION)(BEAKER) (test code = 3438) Family Service Aide ID - Raya OverholtUser comments: Slide comments:URINALYSIS W/ REFLEX URINE [id number] 10:35:00 Test Item Value Reference Range Interpretation Comments COLOR (BEAKER) (test code = 470) Colorless CLARITY (BEAKER) (test code = 469) Clear SPECIFIC GRAVITY UA (BEAKER) (test 1.009 1.001-1.035 code = 468) PH UA (BEAKER) [...] (BEAKER) (test code = 520) < /HPF BACTERIA (BEAKER) (test code = 517) Rare SQUAMOUS EPITHELIAL (BEAKER) (test 3 /HPF code = 516) CASTS (BEAKER) (test code = 1579) 1 /LPF SOURCE(BEAKER) (test code = 2795) Family Service Aide ID - [auto]Family Service Aide ID - techCMV PCR, [id number] 12:11:00 Test Item Value Reference Range Interpretation Comments CMV VIRAL LOAD - POSITIVE Se e Scanned Report (BEAKER) (test code = 1557) CMV VIRAL LOAD - NEGATIVE Se e Scanned Report (BEAKER) (test code = 2558) Cytomegalovirus (CMV) infection can cause significant disease in immunosuppressed patients. However,it is common for CMV to manifest as a limited infection which is of no clinical significance in immunosuppressed patients or in healthy individuals.Viral load measurements are helpful to identify clinical CMV infection and to guide the pre-emptive management of antiviral therapy. For treatment of CMV infection due to reactivation in transplant recipients, a threshold between 4,000 and 5,000 copies/mLis suggested. For treatment of primary CMV infection, a lower threshold can be used.CMV infection may also be monitored using weekly serial measurements. Serial measurements of CMV DNA viral load can be evaluated by identifying a 10-fold change, as [...] and its performance characteristics determined by the [facility] Pathol ogy Department, Section of Molecular Pathology. It has not been cleared or approved by the U.S. Foodand Drug Administration (FDA), since FDA approval is not required for clinical use of the test. Validation was done as required by The Clinical Laboratory Improvement Amendments of 1988.TACROLIMUS LEVEL 2020-09-28 12:45:00 Test Item Value Reference Range Interpretation Comments TACROLIMUS BLOOD 11.2 ng/mL 10.0-20.0 Test perfor med on Predict[employer] (PeopleAdmin) (test code Architec t Immunoassay = 657) system with Chemiluminescen t Microparticle Immunoassay (CM IA) technology. Family Service Aide ID - RMCREATININE, RANDOM [id number] 10:42:00 Test Item Value Reference Range Interpretation Comments CREATININE URINE (EpicTopicAKER) (test 82.8 mg/dL code = 375) Reference Range: No NormalsOperator ID - AAHAMIDPROTEIN, RANDOM [id number] 10:42:00 Test Item Value Reference Range Interpretation Comments PROTEIN, URINE (EpicTopicAKER) (test code = 86 mg/dL 0-14 H 1569) Family Service Aide ID - [id number] 10:36:00 Test Item Value Reference Range Interpretation Comments PHOSPHORUS (EpicTopicAKER) (test code = 3.4 mg/dL 2.3-4.7 604) Family Service Aide ID - AAHAMIDCOMPREHENSIVE METABOLIC [id number] 10:36:00 Test Item Value Reference Range Interpretation [...] H (test code = 358) GLUCOSE RANDOM 207 mg/dL 70-105 H (BEAKER) (test code = 652) CALCIUM (BEAKER) 10.1 mg/dL 8.4-10.2 (test code = 697) AST (SGOT) (BEAKER) 29 U/L 5-34 (test code = 353) ALT (SGPT) (BEAKER) 54 U/L 6-55 (test code = 347) EGFR (BEAKER) (test 37 mL/min/1.73 ESTIMA MARLINE GFR IS code = 1092) sq m NOT ACCURATE CREATININE CLEARANCE IN PREDICTING GLOMERULAR FILTRATION RATE . ESTIMATED GFR I S NOT APPLICABLE FOR DIALYSIS PATIEN TS. Family Service Aide ID - AAHAMIDSpecimen moderately lipemicURINALYSIS W/ REFLEX URINE [id number] 10:23:00 Test Item Value Reference Range Interpretation Comments COLOR (BEAKER) (test code = 470) Light Yellow CLARITY (BEAKER) (test code = Clear 469) SPECIFIC GRAVITY UA (BEAKER) 1.014 1.001-1.035 (test code = 468) PH UA [...] = 516) SOURCE(BEAKER) (test code = 2795) Family Service Aide ID - [auto]Family Service Aide ID - techCBC W/PLT COUNT & AUTO DIFFERENTIAL 2020-09-28 10:16:00 Test Item Value Reference Range Interpretation Comments WHITE BLOOD CELL COUNT (BEAKER) 5.8 K/ L 3.5-10.5 (test code = 775) RED BLOOD CELL COUNT (BEAKER) 4.51 M/ L 3.93-5.22 (test code = 761) HEMOGLOBIN (BEAKER) (test code = 14.5 GM/DL 11.2-15.7 410) HEMATOCRIT (BEAKER) (test code = 44.5 % 34.1-44.9 411) MEAN CORPUSCULAR VOLUME (BEAKER) 98.7 fL 79.4-94.8 H (test code = 753) MEAN CORPUSCULAR HEMOGLOBIN 32.2 pg 25.6-32.2 (BEAKER) (test code = 751) MEAN CORPUSCULAR HEMOGLOBIN CONC 32.6 GM/DL 32.2-35.5 (BEAKER) (test code = 752) RED CELL DISTRIBUTION WIDTH 13.7 % 11.7-14.4 (BEAKER) (test code = 412) PLATELET COUNT (BEAKER) (test 278 K/CU MM 150-450 code = 756) MEAN [...] 437) NEUTROPHILS ABSOLUTE COUNT 4.17 K/ L 1.56-6.13 (BEAKER) (test code = 670) LYMPHOCYTES ABSOLUTE COUNT 0.96 K/ L 1.18-3.74 L (BEAKER) (test code = 414) MONOCYTES ABSOLUTE COUNT (BEAKER) 0.37 K/ L 0.24-0.36 H (test code = 415) EOSINOPHILS ABSOLUTE COUNT 0.09 K/ L 0.04-0.36 (BEAKER) (test code = 416) BASOPHILS ABSOLUTE COUNT (BEAKER) 0.04 K/ L 0.01-0.08 (test code = 417) IMMATURE GRANULOCYTES-RELATIVE 2 % 0-1 H PERCENT (BEAKER) (test code = 2801) BK VIRUS PCR, [id number] 08:07:00 Test Item Value Reference Range Interpretation Comments BK VIRUS, PLASMA, POS See dc anned report. (BEAKER) (test code = 1820) BK VIRUS, PLASMA, NEG See dc anned report. (BEAKER) (test code = 2145) BK DNA Detected <500 copies/mLSee scanned reportTACROLIMUS [id number] 11:58:00 Test Item Value Reference Range Interpretation Comments TACROLIMUS BLOOD 7.6 ng/mL 10.0-20.0 L Test perfor med on Jaffe (BEAKER) (test code Architec t Immunoassay = 657) system with Chemiluminescen t Microparticle I mmunoassay (CMIA) technolo gy. Family Service Aide ID - AAHAMIDCOMPREHENSIVE METABOLIC [id number] 10:51:00 Test Item Value Reference Range Interpretation [...] 347) EGFR (BEAKER) (test 54 mL/min/1.73 ESTIMA MARLINE GFR IS code = 1092) sq m NOT ACCURATE CREATININE CLEARANCE IN PREDICTING GLOMERULAR FILTRATION RATE . ESTIMATED GFR I S NOT APPLICABLE FOR DIALYSIS PATIEN TS. Family Service Aide ID Emerald LEES FSpecimen moderately lipemicTACROLIMUS [id number] 14:45:00 Test Item Value Reference Range Interpretation Comments TACROLIMUS BLOOD 5.7 ng/mL 10.0-20.0 L Test perfor med on Jaffe (BEAKER) (test code Architec t Immunoassay = 657) system with Chemiluminescen t Microparticle I mmunoassay (CMIA) technolo gy. Family Service Aide ID Emerald LEES FCREATININE, RANDOM [id number] 10:30:00 Test Item Value Reference Range Interpretation Comments CREATININE URINE (BEAKER) (test 99.4 mg/dL code = 375) Reference Range: No NormalsOperator ID - NABEEL FPROTEIN, RANDOM URINE 2020-09-14 10:30:00 Test Item Value Reference Range Interpretation Comments PROTEIN, URINE (BEAKER) (test code 178 mg/dL 0-14 H = 1569) Family Service Aide ID Emerald LEES FCOMPREHENSIVE METABOLIC [id number] 10:25:00 Test Item Value Reference Range Interpretation [...] 347) EGFR (BEAKER) (test 53 mL/min/1.73 ESTIMA MARLINE GFR IS code = 1092) sq m NOT ACCURATE CREATININE CLEARANCE IN PREDICTING GLOMERULAR FILTRATION RATE . ESTIMATED GFR I S NOT APPLICABLE FOR DIALYSIS PATIEN TS. Family Service Aide SHANTE Corbin NABEEL [id number] 10:25:00 Test Item Value Reference Range Interpretation Comments PHOSPHORUS (BEAKER) (test code = 3.6 mg/dL 2.3-4.7 604) Family Service Aide SHANTE LEES FURINALYSIS W/ REFLEX URINE [id number] 10:22:00 Test Item Value Reference Range Interpretation [...] /LPF 514) SOURCE(BEAKER) (test code = 2795) Family Service Aide ID - [auto]Family Service Aide ID - techCBC W/PLT COUNT & AUTO [...] = 2801) CBC W/PLT COUNT & AUTO [id number] 13:44:00 Test Item Value Reference Range Interpretation [...] Normal = 762) URINALYSIS W/ REFLEX URINE [id number] 12:24:00 Test Item Value Reference Range Interpretation [...] 1 /LPF 1579) SOURCE(BEAKER) (test code = 6925) Family Service Aide ID - [auto]Family Service Aide ID - techTACROLIMUS [id number] 12:19:00 Test Item Value Reference Range Interpretation Comments TACROLIMUS BLOOD 8.9 ng/mL 10.0-20.0 L Test perfor med on Jaffe (BEAKER) (test code Architec t Immunoassay = 657) system with Chemiluminescen t Microparticle I mmunoassay (CMIA) jacquelin marie Family Service Aide ID - AAHAMIDCOMPREHENSIVE METABOLIC [id number] 10:33:00 Test Item Value Reference Range Interpretation [...] 347) EGFR (BEAKER) (test 51 mL/min/1.73 ESTIMA MARLINE GFR IS code = 1092) sq m NOT ACCURATE CREATININE CLEARANCE IN PREDICTING GLOMERULAR FILTRATION RATE . ESTIMATED GFR I S NOT APPLICABLE FOR DIALYSIS PATIEN TS. Family Service Aide ID Emerald LEES [id number] 10:33:00 Test Item Value Reference Range Interpretation Comments PHOSPHORUS (BEAKER) (test code = 4.1 mg/dL 2.3-4.7 604) Family Service Aide ID Emerald LEES FCREATININE, RANDOM [id number] 10:24:00 Test Item Value Reference Range Interpretation Comments CREATININE URINE (BEAKER) (test 33.3 mg/dL code = 375) Reference Range: No NormalsOperator SHANTE LEES FPROTEIN, RANDOM URINE 2020-08-31 10:24:00 Test Item Value Reference Range Interpretation Comments PROTEIN, URINE (BEAKER) (test code = 90 mg/dL 0-14 H 1569) Family Service Aide ID - NABEEL FBLOOD [id number] 11:58:00 Test Item Value Reference Range Interpretation Comments CULTURE (BEAKER) (test No growth in 5 days code = 1095) BLOOD [id number] 23:00:00 Test Item Value Reference Range Interpretation Comments CULTURE (BEAKER) (test No growth in 5 days code = 1095) TACROLIMUS [id number] 11:53:00 Test Item Value Reference Range Interpretation Comments TACROLIMUS BLOOD 7.5 ng/mL 10.0-20.0 L Test perfor med on Jaffe (BEAKER) (test code Architec t Immunoassay = 657) system with Chemiluminescen t Microparticle I mmunoassay (CMIA) technolo gy. Family Service Aide ID - AAHAMIDBASIC METABOLIC [id number] 11:35:00 Test Item Value Reference Range Interpretation [...] 697) EGFR (BEAKER) (test 48 mL/min/1.73 ESTIMA MARLINE GFR IS code = 1092) sq m NOT ACCURATE CREATININE CLEARANCE IN PREDICTING GLOMERULAR FILTRATION RATE . ESTIMATED GFR I S NOT APPLICABLE FOR DIALYSIS PATIEN TS. Family Service Aide ID - [id number] 11:35:00 Test Item Value Reference Range Interpretation Comments MAGNESIUM (BEAKER) (test code = 1.8 mg/dL 1.6-2.6 627) Family Service Aide ID - [id number] 11:35:00 Test Item Value Reference Range Interpretation Comments PHOSPHORUS (BEAKER) (test code = 3.5 mg/dL 2.3-4.7 604) Family Service Aide ID - EMERSONPOCT-GLUCOSE [id number] 08:36:00 Test Item Value Reference Range Interpretation Comments POC-GLUCOSE METER 111 mg/dL 70-110 H : [facility] (BEAKER) (test code = [place], 1538) [address]: Family Service Aide/Techni martita ID = [id number] for TIA HAMLIN CBC W/PLT COUNT & AUTO [id number] 06:43:00 Test Item Value Reference Range Interpretation [...] IMMATURE GRANULOCYTES-RELATIVE 2 % 0-1 H PERCENT ([facility]) (test code = 2801) POCT-GLUCOSE [id number] 20:57:00 Test Item Value Reference Range Interpretation Comments POC-GLUCOSE METER 237 mg/dL 70-110 H : TESTED A T [facility] 67 ([facility]) (test code = [facility] Yajaira [facility], 1538) [address]: Family Service Aide/Techni martita ID = [id number] for CRUZITO HOLLOWAY POCT-GLUCOSE [id number] 17:44:00 Test Item Value Reference Range Interpretation Comments POC-GLUCOSE METER 295 mg/dL 70-110 H : Notified RN/MD: ([facility]) (test code = TESTED AT [facility] 67[address] 1538) [facility], [address]: Family Service Aide/Techni martita ID = [id number] for BETITO LYNJUAN MIGUEL JESICA CT, CHEST, WITHOUT [id number] 16:55:00Dialysis 05/23Unlisted Reason for Exam - Click Yes and Enter Reason Below->No [facility] ROWANKATHRYNPRICILLA LUPIS : 1970 Sex: FFINAL REPORT TECHNIQUE: CT [...] Mild dependent atelectasis in the right lower lobe. PLEURA: Trace left pleural effusion. HEART AND MEDIASTINUM: Visualized thyroid gland is normal. No significant mediastinal, hilar, or axillary lymphadenopathy. Mild cardiomegaly. Small pericardial effusion. Atherosclerotic coronary artery calcifications. BONES AND SOFT TISSUES: No acute osseous abnormalities. Soft tissues are unremarkable. UPPER ABDOMEN: Unremarkable. IMPRESSION:No acute pulmonary abnormalities. Traceleft pleural effusion. Small pericardial effusion. Signed: Steve Reid MDReport Verified Date/Time: 08/23/2020 16:55:59 -COV2/RT-PCR ([facility])2020-08-23 16:08:00 Test Item Value Reference Range Interpretation Comments SARS-COV2/RT-PCR (test Negative Not Detected, Negative, code = 5857952) See external report for linked test SARS-COV-2 PERFORMING LAB [facility] (test code = 5931017) Negative result for this test determines that SARS-CoV-2 RNA was not present in the specimen above the Limit of Detection (LOD). However, Negative results do not preclude SARS-CoV-2 infection and should not be used as the sole basis for treatment or patient management decisions. Negative results must be [...] justifying the authorization of the emergency use ofin vitro diagnostic tests for detection and/or diagnosis of COVID-19 is terminated under Section 564(b)(2) of the Act or the EUA is revoked under Section 564(g) of the Act.Fact Sheet for Healthcare Prov iders:https://www.[employer]/sites/default/files/product/documents/Fact_Sheet_HC _Cfnucslqp_Pdzm_QMON-DbW-8.pdfFact Sheet for Healthcare Patients:https://www.[employer]/sites/default/files/product/docume nts/Truo_Njpwy_Hqpunhyx_Fhqb_ULHP-RjD-6.pdfPerforming Laboratory:[facility].[place], [place] [address]RALN-LCCNZMI METER 2020-08-23 12:16:00 Test Item Value Reference Range Interpretation Comments POC-GLUCOSE METER 283 mg/dL 70-110 H : TESTED A T [facility] [address] (PeopleAdmin) (test code = GILDA Gates [facility], 1538) [address]: Family Service Aide/Techni martita ID = [id number] for JESICA VERDUZCO TACROLIMUS [id number] 10:41:00 Test Item Value Reference Range Interpretation Comments TACROLIMUS BLOOD 9.8 ng/mL 10.0-20.0 L Test perfor med on Jaffe ([employer]) (test code Architec t Immunoassay = 657) system with Chemiluminescen t Microparticle I mmunoassay (CMIA) jacquelin porter. Family Service Aide ID - AAHAMIDCREATININE, RANDOM [id number] 09:53:00 Test Item Value Reference Range Interpretation Comments CREATININE URINE (BEAKER) (test 63.3 mg/dL code = 375) Reference Range: No NormalsOperator ID - RICHELLE LPROTEIN, RANDOM [id number] 09:53:00 Test Item Value Reference Range Interpretation Comments PROTEIN, URINE (BEAKER) (test code 144 mg/dL 0-14 H = 1569) Family Service Aide ID - RICHELLE LURINALYSIS W/ [id number] 09:45:00 Test Item Value Reference Range Interpretation [...] code = 516) SOURCE(BEAKER) (test code = 4078) Family Service Aide ID - [auto]Family Service Aide ID - techPOCT-GLUCOSE [id number] 09:22:00 Test Item Value Reference Range Interpretation Comments POC-GLUCOSE METER 198 mg/dL 70-110 H : TESTED A T [facility] [address] (BEAKER) (test code = [place], 1538) [address]: Family Service Aide/Techni martita ID = [id number] for BETITO LYNSHIREEN BULLARDFANY BASIC METABOLIC [id number] 07:23:00 Test Item Value Reference Range Interpretation [...] 697) EGFR (BEAKER) (test 50 mL/min/1.73 ESTIMA MARLINE GFR IS code = 1092) sq m NOT ACCURATE CREATININE CLEARANCE IN PREDICTING GLOMERULAR FILTRATION RATE . ESTIMATED GFR I S NOT APPLICABLE FOR DIALYSIS PATIEN TS. Family Service Aide ID - RICHELLE [id number] 07:23:00 Test Item Value Reference Range Interpretation Comments MAGNESIUM (BEAKER) (test code = 1.7 mg/dL 1.6-2.6 627) Family Service Aide ID - RICHELLE [id number] 07:23:00 Test Item Value Reference Range Interpretation Comments PHOSPHORUS (BEAKER) (test code = 2.1 mg/dL 2.3-4.7 L 604) Family Service Aide ID - RICHELLE LHIGH SENSITIVITY TROPONIN [id number] 06:54:00 Test Item Value Reference Range Interpretation Comments HIGH SENSITIVITY 6 pg/ml See_Comment [Automated message] TROPONIN I (test code = The system which [id number]) generated this result transmitted ref erence range: <=17. Th e reference range was not used to interpr et this result as normal/abnormal . Family Service Aide ID - RICHELLE LThe SPEECH COACH STAT High Sensitivity Troponin-I results should be used in conjunction with other diagnostic information such as ECG, clinical observations and information, and patient symptoms to aid in the diagnosis of ID.CBC W/PLT COUNT & AUTO [id number] 06:33:00 Test Item Value Reference Range Interpretation [...] = 2801) RAD, CHEST, 1 VIEW, NON [id number] 06:14:00Dialysis 05/23Reason for exam:- >sobIs the patient ?->NoShould this be performed at the [facility]?->Yes[facility] : 1970 Sex: FFINAL REPORT Chest one view. Clinical history: sob Comparison: Chest radiograph08/18/2020. Technique: A single frontal view of the chest was obtained. Findings: The cardiac silhouette is mildly enlarged. The aorta is tortuous and atherosclerotic. There is a small left pleural effusion with associated compressive atelectasis. There is no pulmonary edema or pneumothorax. The osseousstructures are unremarkable. Impression: Small left pleural effusion with associated compressive atelectasis.Mild cardiomegaly. Signed: [facility] Verified Date/Time: 08/23/2020 06:14:30 POCT-GLUCOSE [id number] 22:44:00 Test Item Value Reference Range Interpretation Comments POC-GLUCOSE METER 129 mg/dL 70-110 H : TESTED Keisha Adam [facility] [id number] (ESTRELLA) (test code = G[place], 1538) [id number]: Family Service Aide/Techni martita ID = [id number] for An Teo harrell HIGH SENSITIVITY TROPONIN [id number] 22:25:00 Test Item Value Reference Range Interpretation Comments HIGH SENSITIVITY 5 pg/ml See_Comment [Automated message] TROPONIN I (test code = The system which [id number]) generated this result transmitted ref erence range: <=17. Th e reference range was not used to interpr et this result as normal/abnormal . Family Service Aide ID - BSThe SPEECH COACH STAT High Sensitivity Troponin-I results should be used in conjunctionwith other diagnostic information such as ECG, clinical observations and information, and patient symptoms to aid in the diagnosis of ID.[id number] 22:19:00 Test Item Value Reference Range Interpretation Comments MAGNESIUM (BEAKER) (test code = 1.8 mg/dL 1.6-2.6 627) Family Service Aide ID - [id number] 22:19:00 Test Item Value Reference Range Interpretation Comments PHOSPHORUS (BEAKER) (test code = 2.7 mg/dL 2.3-4.7 604) Family Service Aide ID - BSBASIC METABOLIC [id number] 22:19:00 Test Item Value Reference Range Interpretation [...] 697) EGFR (BEAKER) (test 52 mL/min/1.73 ESTIMA MARLINE GFR IS code = 1092) sq m NOT ACCURATE CREATININE CLEARANCE IN PREDICTING GLOMERULAR FILTRATION RATE . ESTIMATED GFR I S NOT APPLICABLE FOR DIALYSIS PATIEN TS. Family Service Aide ID - BSCBC W/PLT COUNT & AUTO [id number] 22:02:00 Test Item Value Reference Range Interpretation [...] (test code = 2801) BK VIRUS PCR, [id number] 08:49:00 Test Item Value Reference Range Interpretation Comments BK VIRUS, PLASMA, POS See dc anned report. (ESTRELLA) (test code = 1820) BK VIRUS, PLASMA, NEG See dc anned report. (ESTRELLA) (test code = 2145) CT, SOFT TISSUE NECK, WITHOUT IV [id number] 12:15:00Dialysis 12Patient complained of pain post removal of central lineUnlisted Reason for Exam - Click Yes and Enter Reason Below->YesUnlisted Reason for Exam->Patient complained of pain post removal of central line [facility] : 1970 Sex: FFINAL REPORT Exam: CT SOFT TISSUE NECK WITHOUT CONTRAST History: 50-year-old female with right-sided neck pain. Status post right-sided central line removal.Comparison studies: NoneTechnique: Axial images were obtained from the skull base to the thoracic inlet.Coronal and sagittalimages reconstructed from the axial data.Dose modulation, iterative reconstruction, and/or weight bas ed adjustment of the mA/kV was utilized to reduce the radiation dose to as low as reasonably achievable. Intravenous contrast: None Findings: Evaluation of the neck is limited due to the absence of intravenous contrast.In spite of this limitation, Airway: Patent. Soft tissues: No abnormalities. No discrete neck mass is seen. Lymph nodes: No radiographically significant adenopathy. Vessels: Mild bilateral carotid bulb calcified plaque. Otherwise, suboptimally evaluated. Glands (thyroid, parotid and submandibular): Normal in size and symmetric. No masses. Subcentimeter coarse calcification in the right thyroid lobe. Orbits: No abnormalities.Paranasal sinuses: Clear.Temporal bones: No abnormalities.Skull base and facial bones: Intact. Cervical spine: Mild degenerative changes at the atlantoaxial andC5-6 levels. IMPRESSION: Unremarkable noncontrast CT of the neck. Signed: Gaurang Lerma Verified Date/Time: 08/18/2020 12:15:38 RAD, CHEST, 2 [id number] 11:26:00Dialysis 05/23Reason for Exam:->STATUS POST KIDNEY TRANSPLANT[facility]: [facility] : 1970 Sex: FFINAL REPORT EXAMINATION: RAD, CHEST, 2 VIEWS INDICATION: STATUS POST KIDNEY TRANSPLANT COMPARISON: CT scan 02/03/2020 FINDINGS:TUBES and LINES: None. LUNGS: Lungs are well inflated.Lungs are clear. There is no evidence of pneumonia or pulmonary edema. PLEURA: No pleural effusion or pneumothorax. HEART AND MEDIASTINUM: Cardiomegaly. Tortuous thoracic aorta. BONES AND SOFT TISSUES: No acute osseous lesion. Soft tissues are unremarkable. UPPER ABDOMEN: No free air under the diaphragm. IMPRESSION: Cardiomegaly. No consolidated pneumonia, pleural effusion or pneumothorax. Signed: Hilton Connors Verified Date/Time: 08/18/2020 11:26:27 Reading Location: [facility] Reading Room[address] [place] [address] TACROLIMUS [id number] 13:27:00 Test Item Value Reference Range Interpretation Comments TACROLIMUS BLOOD 8.4 ng/mL 10.0-20.0 L Test perfor med on Jaffe (BEAKER) (test code Architec t Immunoassay = 657) system with Chemiluminescen t Microparticle I mmunoassay (CMIA) jacquelin marie Family Service Aide ID - RMURINALYSIS W/ REFLEX URINE [id number] 11:08:00 Test Item Value Reference Range Interpretation [...] = 516) SOURCE(BEAKER) (test code = 2795) Family Service Aide ID - [auto]Family Service Aide ID - [id number] 10:50:00 Test Item Value Reference Range Interpretation Comments PHOSPHORUS (BEAKER) (test code = 4.9 mg/dL 2.3-4.7 H 604) Family Service Aide ID - NABEEL FCREATININE, RANDOM [id number] 10:50:00 Test Item Value Reference Range Interpretation Comments CREATININE URINE (BEAKER) (test 79.4 mg/dL code = 375) Reference Range: No NormalsOperator ID - NABEEL FPROTEIN, RANDOM URINE 2020-08-17 10:50:00 Test Item Value Reference Range Interpretation Comments PROTEIN, URINE (BEAKER) (test code 151 mg/dL 0-14 H = 1569) Family Service Aide ID - NABEEL FCOMPREHENSIVE METABOLIC [id number] 10:49:00 Test Item Value Reference Range Interpretation [...] 347) EGFR (BEAKER) (test 40 mL/min/1.73 ESTIMA MARLINE GFR IS code = 1092) sq m NOT ACCURATE CREATININE CLEARANCE IN PREDICTING GLOMERULAR FILTRATION RATE . ESTIMATED GFR I S NOT APPLICABLE FOR DIALYSIS PATIEN TS. Family Service Aide ID Emerald LEES FCBC W/PLT COUNT & AUTO [id number] 10:27:00 Test Item Value Reference Range Interpretation [...] PERCENT (BEAKER) (test code = 2801) TACROLIMUS [id number] 13:07:00 Test Item Value Reference Range Interpretation Comments TACROLIMUS BLOOD 7.0 ng/mL 10.0-20.0 L Test perfor med on Jaffe (BEAKER) (test code Architec t Immunoassay = 657) system with Chemiluminescen t Microparticle I mmunoassay (CMIA) jacquelin marie Family Service Aide ID - SUDHEER MURINALYSIS W/ REFLEX URINE [id number] 12:40:00 Test Item Value Reference Range Interpretation [...] 1 /LPF 514) SOURCE(BEAKER) (test code = 3229) Family Service Aide ID - [auto]Family Service Aide ID - [id number] 11:05:00 Test Item Value Reference Range Interpretation Comments PHOSPHORUS (BEAKER) (test code = 3.0 mg/dL 2.3-4.7 604) Family Service Aide ID - NABEEL FCOMPREHENSIVE METABOLIC [id number] 11:05:00 Test Item Value Reference Range Interpretation [...] 347) EGFR (BEAKER) (test 45 mL/min/1.73 ESTIMA MARLINE GFR IS code = 1092) sq m NOT ACCURATE CREATININE CLEARANCE IN PREDICTING GLOMERULAR FILTRATION RATE . ESTIMATED GFR I S NOT APPLICABLE FOR DIALYSIS PATIEN TS. Family Service Aide ID - NABEEL FSpecimen slightly lipemicCBC W/PLT COUNT & AUTO [id number] 10:44:00 Test Item Value Reference Range Interpretation [...] (BEAKER) (test code = 2801) PROTEIN, RANDOM [id number] 10:42:00 Test Item Value Reference Range Interpretation Comments PROTEIN, URINE (BEAKER) (test code 285 mg/dL 0-14 H = 1569) Family Service Aide ID - NABEEL FCREATININE, RANDOM [id number] 10:22:00 Test Item Value Reference Range Interpretation Comments CREATININE URINE (BEAKER) (test 85.3 mg/dL code = 375) Reference Range: No NormalsOperator ID - NABEEL FANG, REMOVAL OF TUNNELED CVC W/O [id number] 11:36:00Dialysis 05/23REMOVE CATHETERReason for Exam:- >PLEASE REMOVE CATHETER, INFUSIONS COMPLETE [facility] : 1970 Sex: FFINAL REPORT Tunneled Dialysis Catheter Removal History: No longer requiring dialysis access Modality: None. Sedation: None Gas Fitter Helper: Aguilar Morales MD. Upper Extremity Surgeon: Archana Armstrong MD. Approach: indwelling R IJ catheter Estimated blood loss: < 5 cc. Specimen: None. Technique: The procedure including risks and benefits were explained to the patient, who expressed understanding. After informed written consent was obtained, the patient's right region was prepped and draped inthe usual sterile fashion. The skin was anesthetized with lidocaine. The tunneled dialysis catheter was then removed in total with blunt dissection and gentle traction. The skin entry site was then dressed with sterile gauze and Tegaderm. The patient tolerated the procedure well. Impression: Successful, uncomplicated removal of a tunneled right dialysis catheter. Signed: Aguilar Morales MDReport Verified Date/Time: 07/24/2020 11:36:12 Reading Location: [address] Body Reading Room BK VIRUS PCR, PLASMA 2020-07-24 11:30:00 Test Item Value Reference Range Interpretation Comments BK VIRUS, PLASMA, POS See sc anned report. (ESTRELLA) (test code = 1820) BK VIRUS, PLASMA, NEG See sc anned report. (ESTRELLA) (test code = 2145) CBC W/PLT COUNT & AUTO [id number] 09:32:00 Test Item Value Reference Range Interpretation Comments WHITE BLOOD CELL COUNT (ESTRELLA) 9.2 K/ L 3.5-10.5 (test code = [...] H PERCENT (BEAKER) (test code = 2801) [id number] 09:28:00 Test Item Value Reference Range Interpretation Comments PARTIAL THROMBOPLASTIN TIME 24.0 seconds 22.5-36.0 (BEAKER) (test code = 760) PROTHROMBIN [id number] 09:27:00 Test Item Value Reference Range Interpretation Comments PROTIME (BEAKER) 12.4 seconds 11.9-14.2 (test code = 759) INR (BEAKER) (test 0.95 See_Comment [Automat ed message] code = 370) The system [employer] generated this result transmitted ref erence range: <=5.90. The reference range was not used to int erpret this result as normal/abnormal . Effective 10/07/2018: PT Reference Range ChangeNew: 11.9-14.2 Previous: 11.7- 14.7RECOMMENDED COUMADIN/WARFARIN INR THERAPY RANGESSTANDARD DOSE: 2.0-3.0 Includes: PROPHYLAXIS for venous thrombosis, systemic embolization; TREATMENT for venous thrombosis and/or pulmonary embolus.HIGH RISK: Target INR is 2.5-3.5 for patients wiht mechanical heart valves.TACROLIMUS [id number] 11:33:00 Test Item Value Reference Range Interpretation Comments TACROLIMUS BLOOD 5.9 ng/mL 10.0-20.0 L Test perfor med on Jaffe (BEAKER) (test code Architec t Immunoassay = 657) system with Chemiluminescen t Microparticle I mmunoassay (CMIA) technolo gy. Family Service Aide ID - EMERSONCALCIUM, [id number] 09:37:00 Test Item Value Reference Range Interpretation Comments CALCIUM IONIZED (BEAKER) (test 1.26 mmol/L 1.12-1.27 code = 698) PH, BLOOD (BEAKER) (test code = 7.23 1810) Range 1.12 - 1.27BASIC METABOLIC [id number] 08:25:00 Test Item Value Reference Range Interpretation [...] 697) EGFR (BEAKER) (test 59 mL/min/1.73 ESTIMA MARLINE GFR IS code = 1092) sq m NOT ACCURATE CREATININE CLEARANCE IN PREDICTING GLOMERULAR FILTRATION RATE . ESTIMATED GFR I S NOT APPLICABLE FOR DIALYSIS PATIEN TS. Family Service Aide ID - BSBASIC METABOLIC [id number] 14:35:00 Test Item Value Reference Range Interpretation [...] 697) EGFR (BEAKER) (test 57 mL/min/1.73 ESTIMA MARLINE GFR IS code = 1092) sq m NOT ACCURATE CREATININE CLEARANCE IN PREDICTING GLOMERULAR FILTRATION RATE . ESTIMATED GFR I S NOT APPLICABLE FOR DIALYSIS PATIEN TS. Family Service Aide ID - PIAYA LCALCIUM, [id number] 10:07:00 Test Item Value Reference Range Interpretation [...] 0-0 (BEAKER) (test code = 413) CALCIUM, [id number] 13:14:00 Test Item Value Reference Range Interpretation Comments CALCIUM IONIZED (BEAKER) (test 1.26 mmol/L 1.12-1.27 code = 698) PH, BLOOD (BEAKER) (test code = 7.25 1810) Range 1.12 - 1.27SARS-COV2/RT-PCR ([facility])2020-07-12 21:30:00 Test Item Value Reference Range Interpretation Comments SARS-COV2/RT-PCR (test Negative Not Detected, Negative, code = 1734121) See external report for linked test SARS-COV-[address] [facility] TODD (test code = 0646101) Negative result for this test determines that SARS-CoV-2 RNA was not present in the specimen above the Limit of Detection (LOD). However, Negative results do not preclude SARS-CoV-2 infection and should not be used as the sole basis for treatment or patient management decisions. Negative results must be [...] justifying the authorization of the emergency use ofin vitro diagnostic tests for detection and/or diagnosis of COVID-19 is terminated under Section 564(b)(2) of the Act or the EUA is revoked under Section 564(g) of the Act.Fact Sheet for Healthcare Prov iders:https://www.[employer]/sites/default/files/product/documents/Fact_Sheet_HC _Epmxtsirj_Lebx_IDQC-TzK-7.pdfFact Sheet for Healthcare Patients:https://www.[employer]/sites/default/files/product/docume nts/Lgpg_Qeesg_Ulnkvzmi_Azbo_ZCTX-InG-6.pdfPerforming Laboratory:[facility], [place] [address]KPISZFD, IONIZED 2020-07-12 14:55:00 Test Item Value Reference Range Interpretation Comments CALCIUM IONIZED (BEAKER) (test 1.25 mmol/L 1.12-1.27 code = 698) PH, BLOOD (BEAKER) (test code = 7.24 1810) Range 1.12 - 1.27ANG, TUNNELED CATHETER [id number] 10:17:00Dialysis 05/23Reason for Central Line/PICC?->Need for hemodialysis accessReason for exam:->requires TPE for recurrent fsgs [facility] : 1970 Sex: FFINAL REPORT PROCEDURE: Tunneled dialysis catheter placement Procedural PersonnelAttending physician(s): Willie Parisi physician(s): NoneResident physician(s): NoneAdvangeorge [facility] practice provider(s): None Pre-procedure diagnosis: FSGSPost-procedure diagnosis: SameIndication (QCDR): Performance of hemodialysisAdditional clinical history: None Complications: No immediate complications. IMPRESSION: Insertion of right-sided tunneled dialysis catheter, with tip in the expected location of the right atrium. Plan: The catheter may be used immediately. PROCEDURE SUMMARY:- Venous access with ultrasound guidance- Tunneled dialysis catheter insertion with fluoroscopic guidance- Additional procedure(s): None PROCEDURE DETAILS: Pre-procedureConsent: Informed consent for the procedure including risks, benefits and alternatives was obtained and time-out was performed prior to the procedure.Preparation (MIPS): The site was prepared and draped using all elements of maximal sterile barrier technique including sterile gloves, sterile gown, cap, mask, large sterile sheet, sterile ultrasound probe cover, hand hygiene and cutaneous antisepsis with 2% chlorhexidine. Medical reason for site preparation exception (MIPS): Not applicable Anesthesia/sedationLevel of anesthesia/sedation: Moderate sedation (conscious sedation) 1mg Versed 50mcg fentanylAnesthesia/sedation administered by: Independent trained observer under attending supervision with continuous monitoring of the patient\\X2019\\s level of consciousness and physiologic stat usTotal intra-service sedation time (minutes): 30 AccessLocal anesthesia [...] catheter was tunneled subcutaneously to the venous access site. The catheter was advanced via a peel-away sheath into the vein under fluoroscopic guidance. Catheter tip location was fluoroscopically verified and a permanent image was stored.Catheter placed: Duraflow 2Catheter cuff-to-tip length (cm): 19Catheter flush: Heparin (1000 units/mL) ClosureA sterile dressing was applied.Access site closure technique: Tissue adhesiveCatheter securement technique: Non-absorbable suture ContrastContrast agent: NoneContrast volume (mL): NA Radiation DoseFluoroscopy time (minutes): 0.2 Reference air kerma (mGy): 3.4 Additional DetailsAdditional description of procedure: NoneEquipment details: NoneSpecimens removed: NoneEstimated blood loss (mL): Less than 10Standardized report: _David neledDialysisCatheter_v3 AttestationSigner name: Bryan Bright attest that I was present for the entire procedure. I reviewed the stored images and agree with the report as written. Signed: Bryan Etienne MDReport Verified Date/Time: 07/12/2020 10:17:51 Reading Location: [place] [address] Angio Body Reading Room CALCIUM, IONIZED 2020-07-10 17:23:00 Test Item Value Reference Range Interpretation [...] (BEAKER) (test code = 413) CMV PCR, [id number] 11:37:00 Test Item Value Reference Range Interpretation Comments CMV VIRAL LOAD - POSITIVE Se e scanned report. (BEAKER) (test code = 1557) CMV VIRAL LOAD - NEGATIVE Se e scanned report. (BEAKER) (test code = 2558) EBV VIRAL [id number] 11:37:00 Test Item Value Reference Range Interpretation Comments EBV VIRAL LOAD - POSITIVE Se e scanned report. (BEAKER) (test code = 2291) EBV VIRAL LOAD - NEGATIVE Se e scanned report. (BEAKER) (test code = 2559) POCT-GLUCOSE [id number] 12:41:00 Test Item Value Reference Range Interpretation Comments POC-GLUCOSE METER 169 mg/dL 70-110 H : TESTED A T [facility] [address] (BEAKER) (test code = [place], 1538) [address]: Family Service Aide/Techni martita ID = [id number] for DANI ZAFAR TACROLIMUS [id number] 11:15:00 Test Item Value Reference Range Interpretation Comments TACROLIMUS BLOOD 8.6 ng/mL 10.0-20.0 L Test perfor med on Jaffe (BEAKER) (test code Architec t Immunoassay = 657) system with Chemiluminescen t Microparticle I mmunoassay (CMIA) technrene porter. Family Service Aide ID - SUDHEER MPOCT-GLUCOSE [id number] 08:56:00 Test Item Value Reference Range Interpretation Comments POC-GLUCOSE METER 177 mg/dL 70-110 H : TESTED A T [facility] [address] (BEAKER) (test code = [place], 1538) [address]: Family Service Aide/Techni martita ID = [id number] for DANI ZAFAR BASIC METABOLIC [id number] 07:22:00 Test Item Value Reference Range Interpretation [...] 697) EGFR (BEAKER) (test 48 mL/min/1.73 ESTIMA MARLINE GFR IS code = 1092) sq m NOT ACCURATE CREATININE CLEARANCE IN PREDICTING GLOMERULAR FILTRATION RATE . ESTIMATED GFR I S NOT APPLICABLE FOR DIALYSIS PATIEN TS. Family Service Aide ID - WILI [id number] 07:22:00 Test Item Value Reference Range Interpretation Comments MAGNESIUM (BEAKER) (test code = 1.6 mg/dL 1.6-2.6 627) Family Service Aide ID - WILI MCBC W/PLT COUNT & AUTO [id number] 07:02:00 Test Item Value Reference Range Interpretation [...] PERCENT (BEAKER) (test code = 2801) POCT-GLUCOSE [id number] 21:41:00 Test Item Value Reference Range Interpretation Comments POC-GLUCOSE METER 193 mg/dL 70-110 H : [facility] T [facility] (test code = [facility], 1538) [address]: Family Service Aide/Techni martita ID = [id number] for CA JIM MURCIAHEMI POCT-GLUCOSE [id number] 18:00:00 Test Item Value Reference Range Interpretation Comments POC-GLUCOSE METER 162 mg/dL 70-110 H : TESTED A T [facility] 67[address] ([facility]) (test code = [facility], 1538) [address]: Family Service Aide/Techni martita ID = [id number] for SA DANI TAMAYO TACROLIMUS [id number] 13:19:00 Test Item Value Reference Range Interpretation Comments TACROLIMUS BLOOD 7.7 ng/mL 10.0-20.0 L Test perfor med on Jaffe ([facility]) (test code Architec t Immunoassay = 657) system with Chemiluminescen t Microparticle I mmunoassay (CMIA) technrene porter. Family Service Aide ID - SUDHEER MPOCT-GLUCOSE [id number] 13:00:00 Test Item Value Reference Range Interpretation Comments POC-GLUCOSE METER 206 mg/dL 70-110 H : TESTED A T [facility] 67[address] ([facility]) (test code = [facility], 1538) [address]: Family Service Aide/Techni martita ID = [id number] for SA NTOS, DANI CALCIUM, [id number] 10:33:00 Test Item Value Reference Range Interpretation Comments CALCIUM IONIZED (BEAKER) (test 1.32 mmol/L 1.12-1.27 H code = 698) PH, BLOOD (BEAKER) (test code = 7.20 1810) Range 1.12 - 1.27BASIC METABOLIC [id number] 07:46:00 Test Item Value Reference Range Interpretation [...] 697) EGFR (BEAKER) (test 51 mL/min/1.73 ESTIMA MARLINE GFR IS code = 1092) sq m NOT ACCURATE CREATININE CLEARANCE IN PREDICTING GLOMERULAR FILTRATION RATE . ESTIMATED GFR I S NOT APPLICABLE FOR DIALYSIS PATIEN TS. Family Service Aide ID - NAYAN [id number] 07:46:00 Test Item Value Reference Range Interpretation Comments MAGNESIUM (BEAKER) (test code = 1.5 mg/dL 1.6-2.6 L 627) Family Service Aide ID - NAYAN CCBC W/PLT COUNT & AUTO [id number] 07:20:00 Test Item Value Reference Range Interpretation [...] H PERCENT (BEAKER) (test code = 2801) HEPATITIS C PCR, [id number] 20:07:00 Test Item Value Reference Range Interpretation Comments HCV RESULT COMPONENT HCV RNA not detected HCV RNA not detected (BEAKER) (test code = 2699) This test uses a Real-Time Polymerase Chain Reaction (RT-PCR) methodology and was performed using SUNDEEP Ampliprep/SUNDEEP TaqMan HCV test kit version 2.0 ([employer]).Reportable range for this assay is 15 - 100,000,000 IU per mL (1.18 - 8.00 Log IU/mL).This test uses a Real-Time Polymerase Chain Reaction (RT-PCR) methodology and was performed using SUNDEEP Ampliprep/SUNDEEP TaqMan HCV test kit version 2.0 ([employer]).Reportable range for this assay is 15 - 100,000,000 IU per mL (1.18 - 8.00 Log IU/mL).POCT- GLUCOSE [id number] 19:53:00 Test Item Value Reference Range Interpretation Comments POC-GLUCOSE METER 203 mg/dL 70-110 H : TESTED A T [facility] 6720 (BEAKER) (test code = [facility], 1538) [address]: Family Service Aide/Techni martita ID = [id number] for MAIDA SAMSON CALCIUM, [id number] 18:28:00 Test Item Value Reference Range Interpretation Comments CALCIUM IONIZED (BEAKER) (test 1.30 mmol/L 1.12-1.27 H code = 698) PH, BLOOD (BEAKER) (test code = 7.24 1810) Range 1.12 - 1.27POCT-GLUCOSE [id number] 12:32:00 Test Item Value Reference Range Interpretation Comments POC-GLUCOSE METER 163 mg/dL 70-110 H : TESTED A T [facility] 6720 (BEAKER) (test code = [facility], 1538) [address]: Family Service Aide/Techni martita ID = [id number] for DANI ZAFAR TACROLIMUS [id number] 09:35:00 Test Item Value Reference Range Interpretation Comments TACROLIMUS BLOOD 10.8 ng/mL 10.0-20.0 Test perfor med on Jaffe (BEAKER) (test code Architec t Immunoassay = 657) system with Chemiluminescen t Microparticle Immunoassay (CM IA) technology. Family Service Aide ID - AAHAMIDPOCT-GLUCOSE [id number] 08:41:00 Test Item Value Reference Range Interpretation Comments POC-GLUCOSE METER 207 mg/dL 70-110 H : TESTED A T [facility] 6720 (BEAKER) (test code = [facility], 1538) [address]: Family Service Aide/Techni martita ID = [id number] for DANI ZAFAR BASIC METABOLIC [id number] 05:21:00 Test Item Value Reference Range Interpretation [...] 697) EGFR (BEAKER) (test 60 mL/min/1.73 ESTIMA MARLINE GFR IS code = 1092) sq m NOT ACCURATE CREATININE CLEARANCE IN PREDICTING GLOMERULAR FILTRATION RATE . ESTIMATED GFR I S NOT APPLICABLE FOR DIALYSIS PATIEN TS. Family Service Aide ID - RICHELLE [id number] 05:21:00 Test Item Value Reference Range Interpretation Comments MAGNESIUM (BEAKER) (test code = 1.6 mg/dL 1.6-2.6 627) Family Service Aide ID - RICHELLE LCBC W/PLT COUNT & AUTO [id number] 05:14:00 Test Item Value Reference Range Interpretation [...] PERCENT (BEAKER) (test code = 2801) POCT-GLUCOSE [id number] 21:27:00 Test Item Value Reference Range Interpretation Comments POC-GLUCOSE METER 251 mg/dL 70-110 H : TESTED A T [facility] 6720 (BEAKER) (test code = [facility] [employer] [place], 153) [address]: Family Service Aide/Techni martita ID = [id number] for DEBORAH BOYKIN CALCIUM, [id number] 18:56:00 Test Item Value Reference Range Interpretation Comments CALCIUM IONIZED (BEAKER) (test 1.24 mmol/L 1.12-1.27 code = 698) PH, BLOOD (BEAKER) (test code = 7.27 1810) Range 1.12 - 1.27POCT-GLUCOSE [id number] 12:17:00 Test Item Value Reference Range Interpretation Comments POC-GLUCOSE METER 148 mg/dL 70-110 H : TESTED A T [facility] 6720 (BEAKER) (test code = [facility] [employer] [facility], 153) [address]: Family Service Aide/Techni martita ID = [id number] for RENE CORTEZ TACROLIMUS [id number] 09:09:00 Test Item Value Reference Range Interpretation Comments TACROLIMUS BLOOD 9.4 ng/mL 10.0-20.0 L Test perfor med on Jaffe (BEAKER) (test code Architec t Immunoassay = 657) system with Chemiluminescen t Microparticle I mmunoassay (CMIA) technolo german. Family Service Aide ID - RMCBC W/PLT COUNT & AUTO [id number] 06:18:00 Test Item Value Reference Range Interpretation [...] PERCENT (BEAKER) (test code = 2801) POCT-GLUCOSE [id number] 05:36:00 Test Item Value Reference Range Interpretation Comments POC-GLUCOSE METER 219 mg/dL 70-110 H : TESTED A T [facility] 6720 (BEAKER) (test code = GILDA [place]ajaira [place], 1538) [address]: Family Service Aide/Techni martita ID = [id number] for DEBORAH BOYKIN [id number] 05:14:00 Test Item Value Reference Range Interpretation Comments MAGNESIUM (BEAKER) 1.9 mg/dL 1.6-2.6 Specimen moderately (test code = 627) hemolyzed Family Service Aide ID - PIAYA LBASIC METABOLIC [id number] 05:14:00 Test Item Value Reference Range Interpretation [...] 697) EGFR (BEAKER) (test 49 mL/min/1.73 ESTIMA MARLINE GFR IS code = 1092) sq m NOT ACCURATE CREATININE CLEARANCE IN PREDICTING GLOMERULAR FILTRATION RATE . ESTIMATED GFR I S NOT APPLICABLE FOR DIALYSIS PATIEN TS. Family Service Aide ID - PIAYA LCBC W/PLT COUNT & AUTO [id number] 04:52:00 Test Item Value Reference Range Interpretation [...] % 0-1 PERCENT (BEAKER) (test code = 9801) POCT-GLUCOSE [id number] 21:11:00 Test Item Value Reference Range Interpretation Comments POC-GLUCOSE METER 233 mg/dL 70-110 H : TESTED A T [facility] 6720 (ESTRELLA) (test code = [place], 1538) [id number]: Family Service Aide/Techni martita ID = [id number] for DEBORAH BOYKIN U/S, TRANSPLANT, [id number] 20:40:00Dialysis 05/23Reason for exam:->[facility] : 1970 Sex: FFINAL REPORT U/S, TRANSPLANT, KIDNEY INDICATION: s/p kidney transplant COMPARISON: 02/02/2020 ultrasound TECHNIQUE: Real-time ultrasound examination of the transplanted kidney. Colorand spectral Doppler imaging also obtained FINDINGS:Size: 13.4 x 7.3 x 6.5 cm. Echogenicity: Within normal limits.Hydronephrosis: Mild.Perinephric fluid: None. Vascular:PSV Venous: Iliac vein: 19 cm/s below the anastomosis, 37 cm/s above the anastomosis Anastomosis: 48 cm/s Main renal vein: 27 cm/s PSV Arterial: Iliac artery: 109 cm/s below the anastomosis, 97 cm/s above the anastomosis Anastomosis: 153 cm/s Main renal artery: 82 cm/s Resistive indices: Upper: 0.7 Middle: 0.7 Lower: 0.7 Additional findings: None. IMPRESSION: 1. Mild hydronephrosis of the left iliac fossa transplant kidney. 2. Patent vasculature with normal resistive indices. Signed: Catrachita Gilberteport Verified Date/Time: 07/05/2020 20:40:49 POCT-GLUCOSE [id number] 19:53:00 Test Item Value Reference Range Interpretation Comments POC-GLUCOSE METER 144 mg/dL 70-110 H : TESTED A T [facility] 6720 (BEAKER) (test code = GILDA [place], 1538) [address]: Family Service Aide/Techni martita ID = [id number] for DEBORAH BOYKIN BASIC METABOLIC [id number] 17:10:00 Test Item Value Reference Range Interpretation [...] 697) EGFR (BEAKER) (test 52 mL/min/1.73 ESTIMA MARLINE GFR IS code = 1092) sq m NOT ACCURATE CREATININE CLEARANCE IN PREDICTING GLOMERULAR FILTRATION RATE . ESTIMATED GFR I S NOT APPLICABLE FOR DIALYSIS PATIEN TS. Family Service Aide ID - [id number] 17:10:00 Test Item Value Reference Range Interpretation Comments MAGNESIUM (BEAKER) (test code = 1.9 mg/dL 1.6-2.6 627) Family Service Aide ID - [id number] 17:10:00 Test Item Value Reference Range Interpretation Comments PHOSPHORUS (BEAKER) (test code = 3.4 mg/dL 2.3-4.7 604) Family Service Aide ID - bsPROTHROMBIN [id number] 16:25:00 Test Item Value Reference Range Interpretation Comments PROTIME (BEAKER) 12.4 seconds 11.9-14.2 (test code = 759) INR (BEAKER) (test 0.96 See_Comment [Automat ed message] code = 370) The system [employer] generated this result transmitted ref erence range: <=5.90. The reference range was not used to int erpret this result as normal/abnormal . Effective 10/07/2018: PT Reference Range ChangeNew: 11.9-14.2 Previous: 11.7- 14.7RECOMMENDED COUMADIN/WARFARIN INR THERAPY RANGESSTANDARD DOSE: 2.0-3.0 Includes: PROPHYLAXIS for venous thrombosis, systemic embolization; TREATMENT for venous thrombosis and/or pulmonary embolus.HIGH RISK: Target INR is 2.5-3.5 for patients wiht mechanical heart valves.CREATININE, RANDOM [id number] 11:49:00 Test Item Value Reference Range Interpretation Comments CREATININE URINE (BEAKER) (test 47.2 mg/dL code = 375) Reference Range: No NormalsOperator ID - EMERSONPROTEIN, RANDOM [id number] 11:49:00 Test Item Value Reference Range Interpretation Comments PROTEIN, URINE (BEAKER) (test code 202 mg/dL 0-14 H = 1569) Family Service Aide ID - EMERSONOperator ID - EMERSONTACROLIMUS [id number] 11:30:00 Test Item Value Reference Range Interpretation Comments TACROLIMUS BLOOD 8.6 ng/mL 10.0-20.0 L Test perfor med on Jaffe (BEAKER) (test code Architec t Immunoassay = 657) system with Chemiluminescen t Microparticle I mmunoassay (CMIA) technolo gy. Family Service Aide ID - AAHAMIDURINALYSIS W/ REFLEX URINE [id number] 10:38:00 Test Item Value Reference Range Interpretation [...] = 516) SOURCE(BEAKER) (test code = 2795) Family Service Aide ID - [auto]Family Service Aide ID - [id number] 10:32:00 Test Item Value Reference Range Interpretation Comments PHOSPHORUS (BEAKER) (test code = 3.8 mg/dL 2.3-4.7 604) Family Service Aide ID - RICHELLE LCOMPREHENSIVE METABOLIC [id number] 10:32:00 Test Item Value Reference Range Interpretation [...] 347) EGFR (BEAKER) (test 47 mL/min/1.73 ESTIMA MARLINE GFR IS code = 1092) sq m NOT ACCURATE CREATININE CLEARANCE IN PREDICTING GLOMERULAR FILTRATION RATE . ESTIMATED GFR I S NOT APPLICABLE FOR DIALYSIS PATIEN TS. Family Service Aide ID - PIAYA LSpecimen slightly lipemicCBC W/PLT COUNT & AUTO [id number] 10:16:00 Test Item Value Reference Range Interpretation [...] PERCENT (BEAKER) (test code = 2801) TISSUE [id number] 15:57:00Surgical Pathology Report Case: [id number] Authorizing Provider: Shemar Langley MD Collected:06/20/2020 10:10 AM Ordering Location: [facility] Radiology Main Received: 06/20/2020 10:42 [...] 1 layer of basement membrane.Technical processing for EM evaluation, and electron microscopy imaging was performed at [facility], CV Pathology laboratory, CLIA # [id number], [address] [place] [address], [address], [place] [address]. The EM images were interpreted by the reporting pathologist at [facility]. [id number] electronically signed by Genesis Veloz MD on 06/23/2020 at 3:57 PMA. KIDNEY ALLOGRAFT, NEEDLE BIOPSIES (S/P RENAL TRANSPLANT ON 01/21/2020) - FOCAL SEGMENTAL GLOMERULOSCLEROSIS WITH COLLAPSING FEATURES. - NO EVIDENCE OF ACUTE T CELL-MEDIATED REJECTION. - NEGATIVE C4d. - NEGATIVE FOR IMMUNE MEDIATED GLOMERULONEPHRITIS. - APPROXIMATELY 10% GLOBAL GLOMERULOSCLEROSIS ( 2/21 GLOMERULI) AND 20% INTERSTITIAL FIBROSIS WITH TUBULAR ATROPHY (IFTA). Signing Pathologist Direct Phone Line: [phone] signed by Genesis Veloz MD on 06/22/2020 at 10:18 AMPreliminary result electronically signed by Genesis Veloz MD on 2020 at 5:46 PMPreliminary findings were discussed with Dr. Langley on 06/20/2020 at 5:00 PM.80782, 66250 X 3, 37378, 45104 X 8Elevated creatinineA. Kidney biopsy (transplant)A. The specimen is received in 3 containers, all labeled with patient's name, medical record number,and accession number.Received in formalin are 2 townsend soft tissue cores (2.2 x 0.1, 1 x 0.1 cm). Specimen submitted in toto in cassette A1.Received in saline are 2 townsend soft tissue cores (2 x 0.1, 1 x 0.1cm) that is frozen for immunofluorescence studies.Received in glutaraldehyde is single townsend-pink tissue fragment (0.5 x 0.2 cm). Specimen sent to EM lab for further processing.Luis Dubon MDLight Micr oscopy: Sections show 2 core tissue fragments consisting of renal [...] inflammation consisting of lymphocytes and neutrophils. The non-fibroticinterstitium has very mild infiltration by lymphocytes. No significant tubulitis is present. Non-atro phic proximal tubules are not ectatic and have intact brush borders. There is occasional peritubularcapillaritis. Viral nuclear and cytological atypia is not present. Vessels: One artery is present with mild intimal sclerosis and no intimal arteritis. Arterioles have mild hyaline sclerosis. Special stains: Frank trichrome, PAS and Montelongo silver stains were necessary for evaluation of this biopsy andshowed expected staining patterns of internal control tissue matrix structures. IMMUNOFLUORESCENCE:Histology: H&E-stained sections show 3 non-obsolescent glomeruli and one segmentally sclerotic glomerulus. Indirect Immunofluorescence findings:Peritubular capillaries are negative for C4d*. Glomeruli have segmental glomerular mesangial staining. External positive control shows strong staining of interstitial capillaries.Direct immunofluorescence findings: IgA: negative glomeruli, positive stainingtubular protein reabsorption droplets.IgG: negative glomeruli, positive staining tubular protein reabsorption droplets. IgM: segmental mesangial staining/entrapment. C3: segmental mesangial staining/entrapment; positive staining tubular protein reabsorption droplets. C1q: segmental mesangial staining/entrapment; positive staining tubular protein reabsorption droplets. Beltrami: negative glomeruli; positive tubular protein reabsorption droplets.Lambda: negative glomeruli; positive tubular protein reabsorption dropletsFibrinogen: focal weak interstitial staining. All polyclonal antibodies used for immunofluorescence staining have been previously tested and shown to have appropriate reactivity with positive control specimens.No glomeruli are present in the tissue submitted for ultrastructural examination.The interpretation of this case included the use of immunohistochemistry or special stains.PAS, Montelongo, TrichromeControl Slides Examined: In-house known positive controls were evaluated along with the test tissue. These control slides run alongside of the patients sample show appropriate staining. Internal positive and negative controls when available are evaluated Immunohistochemistry technical testing was performed at [facility], Pathology Laboratory where it was developed and its performance characteristics were determined. It has not been cleared or approved by the U.S. Food and Drug Administration. The FDA has determined that such clearance or approval is not necessary.The test is used for clinical purposes. It should not be regarded as investigational or for research. This laboratory is certified under the Clinical Laboratory Improvement Amendments of 1988 (CLIA-88)as qualified to perform high complexity clinical laboratory testing.[facility], Department of Pathology, [address] [place] [address], [facility], [address] [place] [address], [facility], [address] [place] [address], UN VIRUS PCR, PLASMA 2020 10:38:00 Test Item Value Reference Range Interpretation Comments BK VIRUS, PLASMA, POS Testin g done at [facility] (People[employer]) (test code = Diagno stics. 1820) BK VIRUS, PLASMA, NEG Testin g done at [facility] ([employer]) (test code = Diagno stics. 2145) BK DNA Positive= 2304 copies/mLSee Scanned ReportU/S, BIOPSY, RENAL (KIDNEY) 2020-06-20 14:00:00Dialysis 05/23Biopsy of transplanted kidneyReason for Exam:- >Elevated Creatinine [facility] 1970 Sex: FFINAL REPORT US Guided Core Biopsy Transplant Kidney. 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 Upper Extremity Surgeon: None Modality: Ultrasound Sedation: Moderate sedation was [...] was performed prior to starting the procedure. Standard sterile precautions were utilized. A preliminary ultrasonography was performed to assess the target and determine a safe access site. It showed an iliac fossa renal transplant. Pertinent ultrasound images were stored to the PACS for documentation. A safe access site was selected and sterilely prepped and draped. Local anesthesia with 1% lidocaine was administered. A dermatotomy was performed. Using aseptic precautions, under real-time ultrasonographic guidance, core biopsies of the renal cortex were performed. The specimen was given to the laboratory mechanical technician for further processing. At the end of the procedure, an ultrasound exam showed absence of hemorrhage or perinephric hematoma. An aseptic dressing was applied. The patient tolerated the procedure well. After recovery, the patient was discharged from the department in stable condition. Complications: None immediate. Specimen: 3 cores Impression: Successful ultrasound-guided core biopsy of left iliac fossa renal transplant. Thank you for the opportunity to assist in the care of your patient. Signed: Roberto Hicks MDReport Verified Date/Time: 06/20/2020 14:00:37 Reading Location: [place] [address] Angio Body Reading Room OLIMUS [id number] 12:56:00 Test Item Value Reference Range Interpretation Comments TACROLIMUS BLOOD 8.4 ng/mL 10.0-20.0 L Test perfor med on Jaffe (BEAKER) (test code Architec t Immunoassay = 657) system with Chemiluminescen t Microparticle I mmunoassay (CMIA) technolo gy. Family Service Aide ID - RMPROTEIN, 24 HOUR [id number] 12:53:00 Test Item Value Reference Range Interpretation Comments PROTEIN, 24HR URINE (BEAKER) 6192 mg/24hr 0-300 H (test code = 1570) VOLUME, TOTAL (BEAKER) (test 2400 ml code = 1457) PROTEIN, URINE (BEAKER) (test 258 mg/dL 0-14 H code = 1569) Family Service Aide ID - AAHAMIDURINALYSIS W/ REFLEX URINE [id number] 12:14:00 Test Item Value Reference Range Interpretation [...] = Rare 1585) SOURCE(BEAKER) (test code = 1239) Family Service Aide ID - [auto]Family Service Aide ID - techPROTEIN, RANDOM [id number] 12:11:00 Test Item Value Reference Range Interpretation Comments PROTEIN, URINE (BEAKER) (test code 266 mg/dL 0-14 H = 1569) Family Service Aide ID - [id number] 11:42:00 Test Item Value Reference Range Interpretation Comments PHOSPHORUS (BEAKER) 3.9 mg/dL 2.3-4.7 Specimen slightly (test code = 604) hemolyzed Family Service Aide ID - AAHAMIDCOMPREHENSIVE METABOLIC [id number] 11:42:00 Test Item Value Reference Range Interpretation [...] hemolyzed EGFR (BEAKER) (test 37 mL/min/1.73 ESTIMA MARLINE GFR IS code = 1092) sq m NOT ACCURATE CREATININE CLEARANCE IN PREDICTING GLOMERULAR FILTRATION RATE . ESTIMATED GFR I S NOT APPLICABLE FOR DIALYSIS PATIEN TS. Family Service Aide ID - AAHAMIDCREATININE, RANDOM [id number] 11:39:00 Test Item Value Reference Range Interpretation Comments CREATININE URINE (BEAKER) (test 63.5 mg/dL code = 375) Reference Range: No NormalsOperator ID - AAHAMIDCBC W/PLT COUNT & AUTO [id number] 11:20:00 Test Item Value Reference Range Interpretation [...] K/uL 0.00-0.00 H (CELLAVISION)(BEAKER) (test code = 5908) TOTAL COUNTED (BEAKER) (test code 100 = [...] CONCENTRATION Decreased (CELLAVISION)(BEAKER) (test code = 3438) Family Service Aide ID - Sharita Caputo comments: Slide comments:CBC W/PLT COUNT & AUTO [id number] 15:37:00 Test Item Value Reference Range Interpretation [...] PERCENT (BEAKER) (test code = 2801) TACROLIMUS [id number] 13:23:00 Test Item Value Reference Range Interpretation Comments TACROLIMUS BLOOD 13.9 ng/mL 10.0-20.0 Test perfor med on Jaffe (BEAKER) (test code Architec t Immunoassay = 657) system with Chemiluminescen t Microparticle Immunoassay (CM IA) technology. PROTEIN, RANDOM [id number] 12:44:00 Test Item Value Reference Range Interpretation Comments PROTEIN, URINE (BEAKER) (test code 345 mg/dL 0-14 H = 1569) Family Service Aide ID - NAYAN CCREATININE, RANDOM [id number] 11:55:00 Test Item Value Reference Range Interpretation Comments CREATININE URINE (BEAKER) (test 66.6 mg/dL code = 375) Reference Range: No NormalsOperator ID - NAYAN [id number] 11:53:00 Test Item Value Reference Range Interpretation Comments PHOSPHORUS (BEAKER) (test code = 3.6 mg/dL 2.3-4.7 604) Family Service Aide ID - NAYAN CCOMPREHENSIVE METABOLIC [id number] 11:53:00 Test Item Value Reference Range Interpretation [...] 347) EGFR (BEAKER) (test 46 mL/min/1.73 ESTIMA MARLINE GFR IS code = 1092) sq m NOT ACCURATE CREATININE CLEARANCE IN PREDICTING GLOMERULAR FILTRATION RATE . ESTIMATED GFR I S NOT APPLICABLE FOR DIALYSIS PATIEN TS. Family Service Aide ID - NAYAN CSpecimen slightly lipemicURINALYSIS W/ [...] code = 516) SOURCE(BEAKER) (test code = 8205) Family Service Aide ID - [auto]Family Service Aide ID - techPROTEIN, RANDOM [id number] 14:21:00 Test Item Value Reference Range Interpretation Comments PROTEIN, URINE (BEAKER) (test code 266 mg/dL 0-14 H = 1569) Family Service Aide ID - CHETANAYA LTACROLIMUS [id number] 13:28:00 Test Item Value Reference Range Interpretation Comments TACROLIMUS BLOOD 8.7 ng/mL 10.0-20.0 L Test perfor med on Jaffe (BEAKER) (test code Architec t Immunoassay = 657) system with Chemiluminescen t Microparticle I mmunoassay (CMIA) technolo Family Service Aide ID - NABEEL FURINALYSIS W/ REFLEX URINE [id number] 11:39:00 Test Item Value Reference Range Interpretation [...] code = 516) SOURCE(BEAKER) (test code = 1725) Family Service Aide ID - [auto]Family Service Aide ID - techCBC W/PLT COUNT & AUTO [...] 486) ARTIFACT (CELLAVISION)(BEAKER) Present (test code = 3432) PLATELET CONCENTRATION Adequate (CELLAVISION)(BEAKER) (test code = 3438) Family Service Aide ID - Raya OverholtUser comments: Slide comments:[id number] 11:18:00 Test Item Value Reference Range Interpretation Comments PHOSPHORUS (BEAKER) (test code = 2.9 mg/dL 2.3-4.7 604) Family Service Aide ID - WILI MCOMPREHENSIVE METABOLIC [id number] 11:18:00 Test Item Value Reference Range Interpretation [...] 347) EGFR (BEAKER) (test 46 mL/min/1.73 ESTIMA MARLINE GFR IS code = 1092) sq m NOT ACCURATE CREATININE CLEARANCE IN PREDICTING GLOMERULAR FILTRATION RATE . ESTIMATED GFR I S NOT APPLICABLE FOR DIALYSIS PATIEN TS. Family Service Aide ID - WILI MSpecimen slightly lipemicCREATININE, RANDOM [id number] 11:13:00 Test Item Value Reference Range Interpretation Comments CREATININE URINE (BEAKER) (test 46.3 mg/dL code = 375) Reference Range: No NormalsOperator ID - RICHELLE LBK VIRUS PCR, [id number] 12:08:00 Test Item Value Reference Range Interpretation Comments BK VIRUS, PLASMA, POS See dc anned report. (BEAKER) (test code = 1820) BK VIRUS, PLASMA, NEG See dc anned report. (BEAKER) (test code = 2145) [...] CONCENTRATION Adequate (CELLAVISION)(BEAKER) (test code = 3438) Family Service Aide ID - Albertina Osorio comments: Slide comments:CBC W/PLT COUNT & AUTO [id number] 14:51:00 Test Item Value Reference Range Interpretation [...] 0-0 (BEAKER) (test code = 413) TACROLIMUS [id number] 13:47:00 Test Item Value Reference Range Interpretation Comments TACROLIMUS BLOOD 9.6 ng/mL 10.0-20.0 L Test perfor med on Jaffe (BEAKER) (test code Architec t Immunoassay = 657) system with Chemiluminescen t Microparticle I mmunoassay (CMIA) technolo gy. Family Service Aide ID - AAHAMIDURINALYSIS W/ REFLEX URINE [id number] 12:04:00 Test Item Value Reference Range Interpretation [...] = 516) SOURCE(BEAKER) (test code = 2795) Family Service Aide ID - [auto]Family Service Aide ID - [id number] 11:38:00 Test Item Value Reference Range Interpretation Comments PHOSPHORUS (BEAKER) (test code = 3.3 mg/dL 2.3-4.7 604) Family Service Aide ID - MAY CCOMPREHENSIVE METABOLIC [id number] 11:38:00 Test Item Value Reference Range Interpretation [...] 347) EGFR (BEAKER) (test 44 mL/min/1.73 ESTIMA MARLINE GFR IS code = 1092) sq m NOT ACCURATE CREATININE CLEARANCE IN PREDICTING GLOMERULAR FILTRATION RATE . ESTIMATED GFR I S NOT APPLICABLE FOR DIALYSIS PATIEN TS. Family Service Aide ID - MAY CSpecimen slightly lipemicCBC W/PLT COUNT & AUTO [id number] 14:51:00 Test Item Value Reference Range Interpretation [...] CONCENTRATION Adequate (CELLAVISION)(BEAKER) (test code = 3438) Family Service Aide ID - Maria Luz Lamas comments: Slide comments:PROTEIN, RANDOM URINE 2020-04-25 13:54:00 Test Item Value Reference Range Interpretation Comments PROTEIN, URINE (BEAKER) (test code 255 mg/dL 0-14 H = 1569) Family Service Aide ID - NABEEL FOperator ID - NABEEL FTACROLIMUS [id number] 13:39:00 Test Item Value Reference Range Interpretation Comments TACROLIMUS BLOOD (BEAKER) (test 9.5 ng/mL 10.0-20.0 L code = 657) Family Service Aide ID - MAYRA ETIENNERINALYSIS W/ REFLEX URINE [id number] 12:07:00 Test Item Value Reference Range Interpretation [...] code = 516) SOURCE(BEAKER) (test code = 5430) Family Service Aide ID - [auto]Family Service Aide ID - techCOMPREHENSIVE METABOLIC [id number] 11:44:00 Test Item Value Reference Range Interpretation [...] 347) EGFR (BEAKER) (test 44 mL/min/1.73 ESTIMA MARLINE GFR IS code = 1092) sq m NOT ACCURATE CREATININE CLEARANCE IN PREDICTING GLOMERULAR FILTRATION RATE . ESTIMATED GFR I S NOT APPLICABLE FOR DIALYSIS PATIEN TS. Family Service Aide ID - NAYAN [id number] 11:44:00 Test Item Value Reference Range Interpretation Comments PHOSPHORUS (BEAKER) (test code = 3.6 mg/dL 2.3-4.7 604) Family Service Aide ID - NAYAN CCREATININE, RANDOM [id number] 11:38:00 Test Item Value Reference Range Interpretation Comments CREATININE URINE (BEAKER) (test 46.2 mg/dL code = 375) Reference Range: No NormalsOperator ID - NABEEL FBK VIRUS PCR, PLASMA 2020-04-17 11:30:00 Test Item Value Reference Range Interpretation Comments BK VIRUS, PLASMA, POS Testin g done at [facility] (BEAKER) (test code = Diagno stics 1820) BK VIRUS, PLASMA, NEG Testin g done at [facility] (BEAKER) (test code = Diagno stics 2145) URINALYSIS W/ REFLEX URINE [id number] 11:21:00 Test Item Value Reference Range Interpretation [...] = 514) SOURCE(BEAKER) (test code = 2795) Family Service Aide ID - [auto]Family Service Aide ID - techTACROLIMUS [id number] 11:04:00 Test Item Value Reference Range Interpretation Comments TACROLIMUS BLOOD (BEAKER) (test 8.9 ng/mL 10.0-20.0 L code = 657) Family Service Aide ID - AAHAMIDCBC W/PLT COUNT & AUTO [id number] 10:42:00 Test Item Value Reference Range Interpretation [...] CONCENTRATION Adequate (CELLAVISION)(BEAKER) (test code = 3438) Family Service Aide ID - Raya OverholtUser comments: Slide comments:[id number] 10:34:00 Test Item Value Reference Range Interpretation Comments PHOSPHORUS (BEAKER) (test code = 3.3 mg/dL 2.3-4.7 604) Family Service Aide ID - NABEEL FCOMPREHENSIVE METABOLIC [id number] 10:34:00 Test Item Value Reference Range Interpretation [...] 347) EGFR (BEAKER) (test 41 mL/min/1.73 ESTIMA MARLINE GFR IS code = 1092) sq m NOT ACCURATE CREATININE CLEARANCE IN PREDICTING GLOMERULAR FILTRATION RATE . ESTIMATED GFR I S NOT APPLICABLE FOR DIALYSIS PATIEN TS. Family Service Aide ID - NABEEL FSpecimen slightly lipemic(CELLAVISION MANUAL [...] CONCENTRATION Adequate (CELLAVISION)(BEAKER) (test code = 3438) Family Service Aide ID - Harrison comments: Slide comments:CBC W/PLT COUNT & AUTO [id number] 15:15:00 Test Item Value Reference Range Interpretation [...] 0-0 (BEAKER) (test code = 413) TACROLIMUS [id number] 12:44:00 Test Item Value Reference Range Interpretation Comments TACROLIMUS BLOOD (BEAKER) (test 15.8 ng/mL 10.0-20.0 code = 657) Family Service Aide ID - MAYRA WCOMPREHENSIVE METABOLIC [id number] 10:27:00 Test Item Value Reference Range Interpretation [...] 347) EGFR (BEAKER) (test 45 mL/min/1.73 ESTIMA MARLINE GFR IS code = 1092) sq m NOT ACCURATE CREATININE CLEARANCE IN PREDICTING GLOMERULAR FILTRATION RATE . ESTIMATED GFR I S NOT APPLICABLE FOR DIALYSIS PATIEN TS. Family Service Aide ID - [id number] 10:27:00 Test Item Value Reference Range Interpretation Comments PHOSPHORUS (BEAKER) (test code = 3.5 mg/dL 2.3-4.7 604) Family Service Aide ID - RMURINALYSIS W/ REFLEX URINE [id number] 10:13:00 Test Item Value Reference Range Interpretation [...] /LPF 1579) SOURCE(BEAKER) (test code = 2795) Family Service Aide ID - [auto]Family Service Aide ID - techTACROLIMUS [id number] 15:20:00 Test Item Value Reference Range Interpretation Comments TACROLIMUS BLOOD (BEAKER) (test 8.7 ng/mL 10.0-20.0 L code = 657) Family Service Aide ID - SUDHEER MCBC W/PLT COUNT & AUTO [id number] 14:45:00 Test Item Value Reference Range Interpretation [...] CONCENTRATION Adequate (CELLAVISION)(BEAKER) (test code = 3438) Family Service Aide ID - Alicia Benton comments: Slide comments:URINALYSIS W/ REFLEX URINE [id number] 11:30:00 Test Item Value Reference Range Interpretation [...] /HPF 520) SOURCE(BEAKER) (test code = 2795) Family Service Aide ID - [auto]Family Service Aide ID - [id number] 11:11:00 Test Item Value Reference Range Interpretation Comments PHOSPHORUS (BEAKER) (test code = 3.1 mg/dL 2.3-4.7 604) Family Service Aide ID - NABEEL FCOMPREHENSIVE METABOLIC [id number] 11:11:00 Test Item Value Reference Range Interpretation [...] 347) EGFR (BEAKER) (test 39 mL/min/1.73 ESTIMA MARLINE GFR IS code = 1092) sq m NOT ACCURATE CREATININE CLEARANCE IN PREDICTING GLOMERULAR FILTRATION RATE . ESTIMATED GFR I S NOT APPLICABLE FOR DIALYSIS PATIEN TS. Family Service Aide ID - NABEEL FSpecimen slightly lipemicCBC W/PLT COUNT & AUTO [id number] 13:28:00 Test Item Value Reference Range Interpretation [...] CONCENTRATION Adequate (CELLAVISION)(BEAKER) (test code = 3438) Family Service Aide ID - Sudheer Eng comments: Slide comments:TACROLIMUS LEVEL 2020-03-28 12:09:00 Test Item Value Reference Range Interpretation Comments TACROLIMUS BLOOD (BEAKER) (test 7.9 ng/mL 10.0-20.0 L code = 657) Family Service Aide ID - HELGAURINALYSIS W/ REFLEX URINE [id number] 10:45:00 Test Item Value Reference Range Interpretation [...] = 516) SOURCE(BEAKER) (test code = 2795) Family Service Aide ID - [auto]Family Service Aide ID - techCOMPREHENSIVE METABOLIC [id number] 10:33:00 Test Item Value Reference Range Interpretation [...] 347) EGFR (BEAKER) (test 39 mL/min/1.73 ESTIMA MARLINE GFR IS code = 1092) sq m NOT ACCURATE CREATININE CLEARANCE IN PREDICTING GLOMERULAR FILTRATION RATE . ESTIMATED GFR I S NOT APPLICABLE FOR DIALYSIS PATIEN TS. Family Service Aide ID - NABEEL [id number] 10:33:00 Test Item Value Reference Range Interpretation Comments PHOSPHORUS (BEAKER) (test code = 3.0 mg/dL 2.3-4.7 604) Family Service Aide ID - NABEEL FTACROLIMUS [id number] 10:29:00 Test Item Value Reference Range Interpretation Comments TACROLIMUS BLOOD (BEAKER) (test 15.8 ng/mL 10.0-20.0 code = 657) Family Service Aide ID - BAILEYIDCOMPREHENSIVE METABOLIC [id number] 09:46:00 Test Item Value Reference Range Interpretation [...] 347) EGFR (BEAKER) (test 37 mL/min/1.73 ESTIMA MARLINE GFR IS code = 1092) sq m NOT ACCURATE CREATININE CLEARANCE IN PREDICTING GLOMERULAR FILTRATION RATE . ESTIMATED GFR I S NOT APPLICABLE FOR DIALYSIS PATIEN TS. Family Service Aide ID - PIAYA L(CELLAVISION MANUAL DIFF)2020-03-14 15:37:00 [...] CONCENTRATION Adequate (CELLAVISION)(BEAKER) (test code = 3438) Family Service Aide ID - Harrison comments: Slide comments:CBC W/PLT COUNT & AUTO [id number] 15:36:00 Test Item Value Reference Range Interpretation [...] 0-0 (BEAKER) (test code = 413) TACROLIMUS [id number] 14:30:00 Test Item Value Reference Range Interpretation Comments TACROLIMUS BLOOD (BEAKER) (test 27.1 ng/mL 10.0-20.0 H code = 657) Family Service Aide ID - ADMINURINALYSIS W/ REFLEX URINE [id number] 10:39:00 Test Item Value Reference Range Interpretation [...] code = 514) SOURCE(BEAKER) (test code = 6163) Family Service Aide ID - [auto]Family Service Aide ID - techCOMPREHENSIVE METABOLIC [id number] 10:13:00 Test Item Value Reference Range Interpretation [...] 347) EGFR (BEAKER) (test 38 mL/min/1.73 ESTIMA MARLINE GFR IS code = 1092) sq m NOT ACCURATE CREATININE CLEARANCE IN PREDICTING GLOMERULAR FILTRATION RATE . ESTIMATED GFR I S NOT APPLICABLE FOR DIALYSIS PATIEN TS. Family Service Aide ID - [id number] 10:13:00 Test Item Value Reference Range Interpretation Comments PHOSPHORUS (BEAKER) (test code = 2.8 mg/dL 2.3-4.7 604) Family Service Aide ID - ADMINBK VIRUS PCR, [id number] 08:42:00 Test Item Value Reference Range Interpretation Comments BK VIRUS, PLASMA, POS See Sc anned Results (BEAKER) (test code = 1820) BK VIRUS, PLASMA, NEG See Sc anned Results (BEAKER) (test code = 2145) CBC W/PLT COUNT & AUTO [id number] 14:34:00 Test Item Value Reference Range Interpretation [...] CONCENTRATION Decreased (CELLAVISION)(BEAKER) (test code = 3438) Family Service Aide ID Emerald Dos Santos OverholtUser comments: Slide comments:TACROLIMUS LEVEL 2020-03-07 11:51:00 Test Item Value Reference Range Interpretation Comments TACROLIMUS BLOOD (BEAKER) (test 14.3 ng/mL 10.0-20.0 code = 657) Family Service Aide ID Emerald NUNEZ WCOMPREHENSIVE METABOLIC [id number] 11:30:00 Test Item Value Reference Range Interpretation [...] 347) EGFR (BEAKER) (test 36 mL/min/1.73 ESTIMA MARLINE GFR IS code = 1092) sq m NOT ACCURATE CREATININE CLEARANCE IN PREDICTING GLOMERULAR FILTRATION RATE . ESTIMATED GFR I S NOT APPLICABLE FOR DIALYSIS PATIEN TS. Family Service Aide ID - [id number] 11:30:00 Test Item Value Reference Range Interpretation Comments PHOSPHORUS (BEAKER) (test code = 3.2 mg/dL 2.3-4.7 604) Family Service Aide ID - ROSIANGURINALYSIS W/ REFLEX URINE [id number] 10:56:00 Test Item Value Reference Range Interpretation [...] = 1574) Rare SOURCE(BEAKER) (test code = 2795) Family Service Aide ID - [auto]Family Service Aide ID - techTACROLIMUS [id number] 14:23:00 Test Item Value Reference Range Interpretation Comments TACROLIMUS BLOOD (BEAKER) (test 10.0 ng/mL 10.0-20.0 code = 657) Family Service Aide ID - SUDHEER MURINALYSIS W/ REFLEX URINE [id number] 12:43:00 Test Item Value Reference Range Interpretation [...] = 516) SOURCE(BEAKER) (test code = 2795) Family Service Aide ID - [auto]Family Service Aide ID - techCOMPREHENSIVE METABOLIC [id number] 10:34:00 Test Item Value Reference Range Interpretation [...] 347) EGFR (BEAKER) (test 35 mL/min/1.73 ESTIMA MARLINE GFR IS code = 1092) sq m NOT ACCURATE CREATININE CLEARANCE IN PREDICTING GLOMERULAR FILTRATION RATE . ESTIMATED GFR I S NOT APPLICABLE FOR DIALYSIS PATIEN TS. Family Service Aide ID Emerald LEES [id number] 10:34:00 Test Item Value Reference Range Interpretation Comments PHOSPHORUS (BEAKER) (test code = 3.0 mg/dL 2.3-4.7 604) Family Service Aide ID Emerald LEES FCBC W/PLT COUNT & AUTO [id number] 10:15:00 Test Item Value Reference Range Interpretation [...] PERCENT (BEAKER) (test code = 2801) TACROLIMUS [id number] 11:07:00 Test Item Value Reference Range Interpretation Comments TACROLIMUS BLOOD (BEAKER) (test 7.6 ng/mL 10.0-20.0 L code = 657) Family Service Aide ID - JMURINALYSIS W/ REFLEX URINE [id number] 10:18:00 Test Item Value Reference Range Interpretation [...] = 516) SOURCE(BEAKER) (test code = 2795) Family Service Aide ID - [auto]Family Service Aide ID - techCOMPREHENSIVE METABOLIC [id number] 10:04:00 Test Item Value Reference Range Interpretation [...] 347) EGFR (BEAKER) (test 45 mL/min/1.73 ESTIMA MARLINE GFR IS code = 1092) sq m NOT ACCURATE CREATININE CLEARANCE IN PREDICTING GLOMERULAR FILTRATION RATE . ESTIMATED GFR I S NOT APPLICABLE FOR DIALYSIS PATIEN TS. Family Service Aide ID - [id number] 10:04:00 Test Item Value Reference Range Interpretation Comments PHOSPHORUS (BEAKER) (test code = 3.1 mg/dL 2.3-4.7 604) Family Service Aide ID - EDASICBC W/PLT COUNT & AUTO [id number] 09:27:00 Test Item Value Reference Range Interpretation [...] (test code = 2801) FUNGUS CULTURE + [id number] 17:56:00 Test Item Value Reference Range Interpretation Comments CULTURE (BEAKER) (test No fungus isolated in code = 1095) 28 days FUNGUS SMEAR (BEAKER) No fungi seen (test code = 1406) FUNGUS CULTURE + [id number] 17:56:00 Test Item Value Reference Range Interpretation Comments CULTURE (BEAKER) (test No fungus isolated in code = 1095) 28 days FUNGUS SMEAR (BEAKER) No fungi seen (test code = 1406) TACROLIMUS [id number] 11:55:00 Test Item Value Reference Range Interpretation Comments TACROLIMUS BLOOD (BEAKER) (test 14.3 ng/mL 10.0-20.0 code = 657) Family Service Aide ID - RMURINALYSIS W/ REFLEX URINE [id number] 10:36:00 Test Item Value Reference Range Interpretation [...] = 516) SOURCE(BEAKER) (test code = 2795) Family Service Aide ID - [auto]Family Service Aide ID - [id number] 09:02:00 Test Item Value Reference Range Interpretation Comments PHOSPHORUS (BEAKER) (test code = 2.7 mg/dL 2.3-4.7 604) Family Service Aide ID - NAYAN CCOMPREHENSIVE METABOLIC [id number] 09:02:00 Test Item Value Reference Range Interpretation [...] 347) EGFR (BEAKER) (test 38 mL/min/1.73 ESTIMA MARLINE GFR IS code = 1092) sq m NOT ACCURATE CREATININE CLEARANCE IN PREDICTING GLOMERULAR FILTRATION RATE . ESTIMATED GFR I S NOT APPLICABLE FOR DIALYSIS PATIEN TS. Family Service Aide ID - MAY CCBC W/PLT COUNT & AUTO [id number] 08:45:00 Test Item Value Reference Range Interpretation [...] PERCENT (BEAKER) (test code = 2801) TACROLIMUS [id number] 14:47:00 Test Item Value Reference Range Interpretation Comments TACROLIMUS BLOOD (BEAKER) (test 5.6 ng/mL 10.0-20.0 L code = 657) Family Service Aide ID - MAYRA JAIMIERINALYSIS W/ REFLEX URINE [id number] 10:57:00 Test Item Value Reference Range Interpretation [...] = 516) SOURCE(BEAKER) (test code = 2795) Family Service Aide ID - [auto]Family Service Aide ID - [id number] 10:29:00 Test Item Value Reference Range Interpretation Comments PHOSPHORUS (BEAKER) (test code = 2.3 mg/dL 2.3-4.7 604) Family Service Aide ID - AAHAMIDCOMPREHENSIVE METABOLIC [id number] 10:29:00 Test Item Value Reference Range Interpretation [...] 347) EGFR (BEAKER) (test 45 mL/min/1.73 ESTIMA MARLINE GFR IS code = 1092) sq m NOT ACCURATE CREATININE CLEARANCE IN PREDICTING GLOMERULAR FILTRATION RATE . ESTIMATED GFR I S NOT APPLICABLE FOR DIALYSIS PATIEN TS. Family Service Aide ID - AAHAMIDCBC W/PLT COUNT & AUTO [id number] 10:23:00 Test Item Value Reference Range Interpretation [...] PERCENT (BEAKER) (test code = 2801) BLOOD [id number] 11:00:00 Test Item Value Reference Range Interpretation Comments CULTURE (BEAKER) (test No growth in 5 days code = 1095) BLOOD [id number] 11:00:00 Test Item Value Reference Range Interpretation Comments CULTURE (BEAKER) (test No growth in 5 days code = 1095) BLOOD [id number] 14:00:00 Test Item Value Reference Range Interpretation Comments CULTURE (BEAKER) (test No growth in 5 days code = 1095) BLOOD [id number] 14:00:00 Test Item Value Reference Range Interpretation Comments CULTURE (BEAKER) (test No growth in 5 days code = 1095) TACROLIMUS [id number] 12:02:00 Test Item Value Reference Range Interpretation Comments TACROLIMUS BLOOD (BEAKER) (test 9.5 ng/mL 10.0-20.0 L code = 657) Family Service Aide ID - AAHAMIDPOCT-GLUCOSE [id number] 08:12:00 Test Item Value Reference Range Interpretation Comments POC-GLUCOSE METER 150 mg/dL 70-110 H : TESTED Keisha T [facility] 6720 (BEAKER) (test code = [place], 1538) [address]: Family Service Aide/Techni martita ID = [id number] for AN TIMOTHY CONTRERAS HEPATIC FUNCTION [id number] 06:10:00 Test Item Value Reference Range Interpretation [...] (test code = 16 U/L 6-55 347) Family Service Aide SHANTE SENA METABOLIC [id number] 06:10:00 Test Item Value Reference Range Interpretation [...] 697) EGFR (BEAKER) (test 49 mL/min/1.73 ESTIMA MARLINE GFR IS code = 1092) sq m NOT ACCURATE CREATININE CLEARANCE IN PREDICTING GLOMERULAR FILTRATION RATE . ESTIMATED GFR I S NOT APPLICABLE FOR DIALYSIS PATIEN TS. Family Service Aide SHANTE PEOPLES [id number] 06:03:00 Test Item Value Reference Range Interpretation Comments PARTIAL THROMBOPLASTIN TIME 25.0 seconds 22.5-36.0 (BEAKER) (test code = 760) PROTHROMBIN [id number] 06:02:00 Test Item Value Reference Range Interpretation [...] is 2.5-3.5 for patients wiht mechanical heart valves.LACTIC ACID, [id number] 05:40:00 Test Item Value Reference Range Interpretation Comments LACTATE BLOOD VENOUS (2) (BEAKER) 1.06 mmol/L 0.50-2.20 (test code = 2872) Family Service Aide ID - RICHELLE LCBC W/PLT COUNT & AUTO [id number] 05:32:00 Test Item Value Reference Range Interpretation [...] PERCENT (BEAKER) (test code = 2801) BLOOD [id number] 02:01:00 Test Item Value Reference Range Interpretation Comments CULTURE (BEAKER) (test No growth in 5 days code = 1095) BLOOD [id number] 02:01:00 Test Item Value Reference Range Interpretation Comments CULTURE (BEAKER) (test No growth in 5 days code = 1095) POCT-GLUCOSE [id number] 22:20:00 Test Item Value Reference Range Interpretation Comments POC-GLUCOSE METER 172 mg/dL 70-110 H : TESTED A T [facility] 6720 (BEAKER) (test code = [facility], 153) [address]: Family Service Aide/Techni martita ID = [id number] for Madison Billy POCT-GLUCOSE [id number] 17:46:00 Test Item Value Reference Range Interpretation Comments POC-GLUCOSE METER 237 mg/dL 70-110 H : TESTED A T [facility] 6720 (BEAKER) (test code = [facility], 153) [address]: Family Service Aide/Techni martita ID = [id number] for FERN BRADYRADHAMAIDA Devries POCT-GLUCOSE [id number] 14:05:00 Test Item Value Reference Range Interpretation Comments POC-GLUCOSE METER 221 mg/dL 70-110 H : TESTED A T [facility] 6720 (BEAKER) (test code = [facility], 153) [address]: Family Service Aide/Techni martita ID = [id number] for GRAYSON JOHNSSHERRYBea URINE [id number] 09:52:00 Test Item Value Reference Range Interpretation Comments CULTURE (BEAKER) (test code = 1095) No growth TACROLIMUS [id number] 09:45:00 Test Item Value Reference Range Interpretation Comments TACROLIMUS BLOOD (BEAKER) (test 11.5 ng/mL 10.0-20.0 code = 657) Family Service Aide ID - AAHAMIDPOCT-GLUCOSE [id number] 08:22:00 Test Item Value Reference Range Interpretation Comments POC-GLUCOSE METER 193 mg/dL 70-110 H : TESTED A T [facility] 6720 (BEAKER) (test code = [place], 1538) [address]: Family Service Aide/Techni martita ID = [id number] for MADIA KEE [id number] 06:59:00 Test Item Value Reference Range Interpretation Comments PHOSPHORUS (BEAKER) (test code = 2.4 mg/dL 2.3-4.7 604) Family Service Aide ID - RICHELLE [id number] 06:59:00 Test Item Value Reference Range Interpretation Comments MAGNESIUM (BEAKER) (test code = 2.0 mg/dL 1.6-2.6 627) Family Service Aide ID - RICHELLE LBASIC METABOLIC [id number] 06:59:00 Test Item Value Reference Range Interpretation [...] 697) EGFR (BEAKER) (test 58 mL/min/1.73 ESTIMA MARLINE GFR IS code = 1092) sq m NOT ACCURATE CREATININE CLEARANCE IN PREDICTING GLOMERULAR FILTRATION RATE . ESTIMATED GFR I S NOT APPLICABLE FOR DIALYSIS PATIEN TS. Family Service Aide ID - CHETANSTEPHY LHEPATIC FUNCTION [id number] 06:59:00 Test Item Value Reference Range Interpretation [...] (test code = 19 U/L 6-55 347) Family Service Aide ID Emerald PEOPLES [id number] 06:55:00 Test Item Value Reference Range Interpretation Comments PARTIAL THROMBOPLASTIN TIME 35.3 seconds 22.5-36.0 (BEAKER) (test code = 760) PROTHROMBIN TIME/[id number] 06:54:00 Test Item Value Reference Range Interpretation [...] is 2.5-3.5 for patients wiht mechanical heart valves.LACTIC ACID, [id number] 06:47:00 Test Item Value Reference Range Interpretation Comments LACTATE BLOOD VENOUS (2) (BEAKER) 0.76 mmol/L 0.50-2.20 (test code = 2872) Family Service Aide ID - RICHELLE LCBC (HEMOGRAM ONLY)2020-02-06 06:46:00 [...] H (BEAKER) (test code = 413) POCT-GLUCOSE [id number] 22:45:00 Test Item Value Reference Range Interpretation Comments POC-GLUCOSE METER 157 mg/dL 70-110 H : TESTED A T [facility] 6720 (BEAKER) (test code = [facility], 153) 41576: Family Service Aide/Techni martita ID = [id number] for Madison Billy POCT-GLUCOSE [id number] 18:10:00 Test Item Value Reference Range Interpretation Comments POC-GLUCOSE METER 256 mg/dL 70-110 H : TESTED A T [facility] 6720 (BEAKER) (test code = [facility], 1538) [address]: Family Service Aide/Techni martita ID = [id number] for ZACHARY LINO POCT-GLUCOSE [id number] 13:13:00 Test Item Value Reference Range Interpretation Comments POC-GLUCOSE METER 223 mg/dL 70-110 H : TESTED A T [facility] 6720 (BEAKER) (test code = [facility], 153) 726[address]: Family Service Aide/Techni martita ID = [id number] for ZACHARY LINO TACROLIMUS [id number] 09:34:00 Test Item Value Reference Range Interpretation Comments TACROLIMUS BLOOD (BEAKER) (test 17.8 ng/mL 10.0-20.0 code = 657) Family Service Aide ID - AAHAMIDPOCT-GLUCOSE [id number] 08:00:00 Test Item Value Reference Range Interpretation Comments POC-GLUCOSE METER 199 mg/dL 70-110 H : [facility] (BEAKER) (test code = [place], 1538) [address]: Family Service Aide/Techni martita ID = [id number] for ZACHARY LINO [id number] 05:06:00 Test Item Value Reference Range Interpretation Comments PHOSPHORUS (BEAKER) (test code = 2.2 mg/dL 2.3-4.7 L 604) Family Service Aide ID - WILI [id number] 05:06:00 Test Item Value Reference Range Interpretation Comments MAGNESIUM (BEAKER) (test code = 2.1 mg/dL 1.6-2.6 627) Family Service Aide ID - WILI MBASIC METABOLIC [id number] 05:06:00 Test Item Value Reference Range Interpretation [...] 697) EGFR (BEAKER) (test 53 mL/min/1.73 ESTIMA MARLINE GFR IS code = 1092) sq m NOT ACCURATE CREATININE CLEARANCE IN PREDICTING GLOMERULAR FILTRATION RATE . ESTIMATED GFR I S NOT APPLICABLE FOR DIALYSIS PATIEN TS. Family Service Aide ID - WILI MHEPATIC FUNCTION [id number] 05:06:00 Test Item Value Reference Range Interpretation [...] (test code = 24 U/L 6-55 347) Family Service Aide ID - WILI [id number] 05:03:00 Test Item Value Reference Range Interpretation Comments PARTIAL THROMBOPLASTIN TIME 46.1 seconds 22.5-36.0 H (BEAKER) (test code = 760) PROTHROMBIN [id number] 05:02:00 Test Item Value Reference Range Interpretation [...] is 2.5-3.5 for patients wiht mechanical heart valves.BLOOD GAS, [id number] 04:49:00 Test Item Value Reference Range Interpretation Comments PH VENOUS (BEAKER) (test code = 7.47 7.32-7.42 H 701) PCO2 VENOUS (BEAKER) (test code = 36 mmHg 41-51 L 755) PO2 VENOUS (BEAKER) (test code = 65 mmHg 25-40 H 702) O2 SATURATION VENOUS (BEAKER) 94.0 % 40.0-70.0 H (test code = 703) HCO3 VENOUS (BEAKER) (test code = 26 mmol/L 21-29 705) BASE EXCESS VENOUS (BEAKER) (test 1.8 mmol/L -2.0-3.0 code = 704) PATIENT TEMPERATURE (BEAKER) (test 36.9 C code = 1818) FIO2 (BEAKER) (test code = 1819) 21.0 % LACTIC ACID, [id number] 04:48:00 Test Item Value Reference Range Interpretation Comments LACTATE BLOOD VENOUS (2) (BEAKER) 0.76 mmol/L 0.50-2.20 (test code = 2872) Family Service Aide ID - WILI MCBC (HEMOGRAM ONLY)2020-02-05 04:38:00 [...] (BEAKER) (test code = 413) LACTIC ACID, [id number] 00:46:00 Test Item Value Reference Range Interpretation Comments LACTATE BLOOD VENOUS (2) (BEAKER) 0.79 mmol/L 0.50-2.20 (test code = 2872) Family Service Aide ID Emerald RASHEED MPOCT-GLUCOSE [id number] 00:33:00 Test Item Value Reference Range Interpretation Comments POC-GLUCOSE METER 163 mg/dL 70-110 H : TESTED A T [facility] 6720 (BEAKER) (test code = GILDA [facility], 1538) 111[address]: Family Service Aide/Techni martita ID = [id number] for Ghanshyam Howelll POCT-GLUCOSE [id number] 20:47:00 Test Item Value Reference Range Interpretation Comments POC-GLUCOSE METER 212 mg/dL 70-110 H : [facility] (BEAKER) (test code = GILDA [facility], 1538) [address]: Family Service Aide/Techni martita ID = [id number] for Fern cabello, Deanna TACROLIMUS [id number] 20:07:00 Test Item Value Reference Range Interpretation [...] (BEAKER) (test code = 413) LACTIC ACID, [id number] 19:13:00 Test Item Value Reference Range Interpretation Comments LACTATE BLOOD VENOUS (2) (BEAKER) 1.93 mmol/L 0.50-2.20 (test code = 2872) Family Service Aide ID - BSPOCT-GLUCOSE [id number] 17:22:00 Test Item Value Reference Range Interpretation Comments POC-GLUCOSE METER 183 mg/dL 70-110 H : TESTED A T [facility] 6720 (BEAKER) (test code = [facility], 1538) 34016: Family Service Aide/Techni martita ID = [id number] for YOVANY GREENEONIA POCT-GLUCOSE [id number] 14:36:00 Test Item Value Reference Range Interpretation Comments POC-GLUCOSE METER 195 mg/dL 70-110 H : TESTED A T [facility] 6720 (AKER) (test code = [facility], 1538) 89778: Family Service Aide/Techni martita ID = [id number] for YOVANY GREENEONIA POCT-GLUCOSE [id number] 13:47:00 Test Item Value Reference Range Interpretation Comments POC-GLUCOSE METER 225 mg/dL 70-110 H : TESTED A T [facility] 6720 (BEAKER) (test code = [facility], 1538) 82545: Family Service Aide/Techni martita ID = [id number] for LIZET GREENE PERIPHERAL BLOOD SMEAR - PATHOLOGIST [id number] 13:26:00 Test Item Value Reference Range Interpretation Comments PERIPHERAL SMR REVIEW No circulating blasts. (BEAKER) (test code = Rare occasional 2640) schistocytes. [id number] Rodney See, (BEAKER) (test code = M.D.(electronic 5091) signature) LACTIC ACID, [id number] 12:48:00 Test Item Value Reference Range Interpretation Comments LACTATE BLOOD VENOUS (2) (BEAKER) 1.05 mmol/L 0.50-2.20 (test code = 2872) Family Service Aide ID - NAYAN CPOCT-GLUCOSE [id number] 12:41:00 Test Item Value Reference Range Interpretation Comments POC-GLUCOSE METER 203 mg/dL 70-110 H : TESTED A T [facility] 6720 (BEAKER) (test code = [facility], 1538) 11133: Family Service Aide/Techni martita ID = [id number] for YOVANY GREENEONIA POCT-GLUCOSE [id number] 11:40:00 Test Item Value Reference Range Interpretation Comments POC-GLUCOSE METER 226 mg/dL 70-110 H : TESTED A T [facility] 6720 (BEAKER) (test code = [place], 1538) 18[address]: Family Service Aide/Techni martita ID = [id number] for LIZET GREENE CBC W/PLT COUNT & AUTO [id number] 11:15:00 Test Item Value Reference Range Interpretation [...] CONCENTRATION Adequate (CELLAVISION)(BEAKER) (test code = 3438) Family Service Aide ID - [id number] ID - Maria Luz Lamas comments: Slide comments:POCT- GLUCOSE [id number] 10:45:00 Test Item Value Reference Range Interpretation Comments POC-GLUCOSE METER 209 mg/dL 70-110 H : TESTED A T [facility] 6720 (BEAKER) (test code = [facility], 1538) [id number]: Family Service Aide/Techni martita ID = [id number] for RO BERSON, TIONIA POCT-GLUCOSE [id number] 08:40:00 Test Item Value Reference Range Interpretation Comments POC-GLUCOSE METER 150 mg/dL 70-110 H : TESTED A T [facility] 6720 (BEAKER) (test code = [facility], 1538) [id number]: Family Service Aide/Techni martita ID = [id number] for RO BERSON, TIONIA POCT-GLUCOSE [id number] 07:19:00 Test Item Value Reference Range Interpretation Comments POC-GLUCOSE METER 145 mg/dL 70-110 H : TESTED A T [facility] 6720 (BEAKER) (test code = [facility], 1538) [id number]: Family Service Aide/Techni martita ID = [id number] for Fern cabello, Deanna POCT-GLUCOSE [id number] 07:19:00 Test Item Value Reference Range Interpretation Comments POC-GLUCOSE METER 147 mg/dL 70-110 H : TESTED A T [facility] 6720 (BEAKER) (test code = [facility] [facility], 153) [address]: Family Service Aide/Techni martita ID = [id number] for Fern cabello, Deanna HEPATIC FUNCTION [id number] 05:49:00 Test Item Value Reference Range Interpretation [...] (test code = 30 U/L 6-55 347) Family Service Aide ID - EDASIOperator ID - WILI MPOCT-GLUCOSE [id number] 05:22:00 Test Item Value Reference Range Interpretation Comments POC-GLUCOSE METER 129 mg/dL 70-110 H : TESTED A T [facility] 6720 (BEAKER) (test code = [facility], 153) 765[address]: Family Service Aide/Techni martita ID = [id number] for Fern cabello, Deanna POCT-GLUCOSE [id number] 05:22:00 Test Item Value Reference Range Interpretation Comments POC-GLUCOSE METER 137 mg/dL 70-110 H : TESTED A T [facility] 6720 (BEAKER) (test code = [facility], 153) 15134: Family Service Aide/Techni martita ID = [id number] for Fern cabello, Deanna [id number] 04:58:00 Test Item Value Reference Range Interpretation Comments PHOSPHORUS (BEAKER) (test code = 2.8 mg/dL 2.3-4.7 604) Family Service Aide ID - [id number] 04:58:00 Test Item Value Reference Range Interpretation Comments MAGNESIUM (BEAKER) (test code = 2.4 mg/dL 1.6-2.6 627) Family Service Aide ID - EDASIBASIC METABOLIC [id number] 04:58:00 Test Item Value Reference Range Interpretation [...] 697) EGFR (BEAKER) (test 39 mL/min/1.73 ESTIMA MARLINE GFR IS code = 1092) sq m NOT ACCURATE CREATININE CLEARANCE IN PREDICTING GLOMERULAR FILTRATION RATE . ESTIMATED GFR I S NOT APPLICABLE FOR DIALYSIS PATIEN TS. Family Service Aide ID - EDASIVANCOMYCIN LEVEL, [id number] 04:50:00 Test Item Value Reference Range Interpretation Comments VANCOMYCIN RANDOM (BEAKER) (test 9.6 ug/mL code = 523) Reference Range: No NormalsOperator ID - [id number] 04:40:00 Test Item Value Reference Range Interpretation Comments FERRITIN (BEAKER) (test code = 6530.64 ng/mL 5.00-275.00 H 361) Family Service Aide ID - [id number] 04:38:00 Test Item Value Reference Range Interpretation Comments PARTIAL THROMBOPLASTIN TIME 49.3 seconds 22.5-36.0 H (BEAKER) (test code = 760) PROTHROMBIN [id number] 04:37:00 Test Item Value Reference Range Interpretation [...] is 2.5-3.5 for patients wiht mechanical heart valves.LACTIC ACID, [id number] 04:34:00 Test Item Value Reference Range Interpretation Comments LACTATE BLOOD VENOUS (2) (BEAKER) 0.67 mmol/L 0.50-2.20 (test code = 2872) Family Service Aide ID - EDASICBC (HEMOGRAM ONLY)2020-02-04 04:29:00 Test [...] 0-0 (BEAKER) (test code = 413) POCT-GLUCOSE [id number] 03:20:00 Test Item Value Reference Range Interpretation Comments POC-GLUCOSE METER 149 mg/dL 70-110 H : TESTED A T [facility] 6720 (BEAKER) (test code = [facility], 1538) 59901: Family Service Aide/Techni martita ID = [id number] for Fern cabello, Deanna POCT-GLUCOSE [id number] 02:19:00 Test Item Value Reference Range Interpretation Comments POC-GLUCOSE METER 150 mg/dL 70-110 H : TESTED A T [facility] 6720 (BEAKER) (test code = [facility], 1538) 73056: Family Service Aide/Techni martita ID = [id number] for Fern cabello, Deanna POCT-GLUCOSE [id number] 01:19:00 Test Item Value Reference Range Interpretation Comments POC-GLUCOSE METER 166 mg/dL 70-110 H : TESTED A T [facility] 6720 (BEAKER) (test code = [facility], 1538) 94024: Family Service Aide/Techni martita ID = [id number] for Fern cabello, Deanna [id number] 01:07:00 Test Item Value Reference Range Interpretation Comments HAPTOGLOBIN (BEAKER) (test code = 261 mg/dL 14-258 H 366) Family Service Aide ID - DBIRON, TIBC, % SAT. (WITHOUT FERRITIN)2020-02-04 00:59:00 Test Item Value Reference Range Interpretation Comments IRON (BEAKER) (test code = 547) 20.0 ug/dL 40.0-160.0 L TOTAL IRON BINDING CAPACITY 118 ug/dL 250-450 L (BEAKER) (test code = 769) IRON % SATURATION (2) (BEAKER) 17 % 20-55 L (test code = 2590) Family Service Aide ID - DBLACTIC ACID, [id number] 00:40:00 Test Item Value Reference Range Interpretation Comments LACTATE BLOOD VENOUS (2) (BEAKER) 0.62 mmol/L 0.50-2.20 (test code = 2872) Family Service Aide ID - DBPOCT-GLUCOSE [id number] 00:25:00 Test Item Value Reference Range Interpretation Comments POC-GLUCOSE METER 147 mg/dL 70-110 H : TESTED A T [facility] 6720 (BEAKER) (test code = [facility], 153) 24756: Family Service Aide/Techni martita ID = [id number] for Deanna Howell CBC (HEMOGRAM ONLY)2020-02-04 00:23:00 Test Item Value [...] 0-0 (BEAKER) (test code = 413) POCT-GLUCOSE [id number] 23:39:00 Test Item Value Reference Range Interpretation Comments POC-GLUCOSE METER 145 mg/dL 70-110 H : TESTED A T [facility] 6720 (BEAKER) (test code = [facility] [employer] [facility], 153) 29635: Family Service Aide/Techni martita ID = [id number] for Deanna Howell POCT-GLUCOSE [id number] 23:01:00 Test Item Value Reference Range Interpretation Comments POC-GLUCOSE METER 130 mg/dL 70-110 H : TESTED A T [facility] 6720 (BEAKER) (test code = [facility] [employer] [facility], 1538) 75971: Family Service Aide/Techni martita ID = [id number] for Ma rin, Deanna POCT-GLUCOSE [id number] 22:36:00 Test Item Value Reference Range Interpretation Comments POC-GLUCOSE METER 118 mg/dL 70-110 H : TESTED A T [facility] 6720 (BEAKER) (test code = [facility], 1538) 58596: Family Service Aide/Techni martita ID = [id number] for Ma rin, Deanna POCT-GLUCOSE [id number] 22:15:00 Test Item Value Reference Range Interpretation Comments POC-GLUCOSE METER 116 mg/dL 70-110 H : TESTED A T [facility] 6720 (BEAKER) (test code = [facility], 1538) 14127: Family Service Aide/Techni martita ID = [id number] for Ma rin, Deanna POCT-GLUCOSE [id number] 22:00:00 Test Item Value Reference Range Interpretation Comments POC-GLUCOSE METER 94 mg/dL 70-110 : TESTED A T [facility] 6720 (BEAKER) (test code = [facility], 1538) 78788: Family Service Aide/Techni martita ID = [id number] for Luna n, Deanna POCT-GLUCOSE [id number] 21:41:00 Test Item Value Reference Range Interpretation Comments POC-GLUCOSE METER 99 mg/dL 70-110 : TESTED A T [facility] 6720 (BEAKER) (test code = [facility], 1538) 01847: Family Service Aide/Techni martita ID = [id number] for Luna n, Deanna POCT-GLUCOSE [id number] 19:49:00 Test Item Value Reference Range Interpretation Comments POC-GLUCOSE METER 113 mg/dL 70-110 H : TESTED A T [facility] 6720 (BEAKER) (test code = [facility], 1538) 00834: Family Service Aide/Techni martita ID = [id number] for Ma rin, Deanna CT, [id number] 18:35:00Dialysis 05/23Unlisted Reason for Exam - Click Yes and Enter Reason Below->YesUnlisted Reason for Exam->S/p kidney transplant infectionFINAL REPORT TECHNIQUE: CT of the chest, abdomen, and pelvis WITHOUT intravenous contrast and WITHOUT oral contrast. Dose modulation, iterative reconstruction, and/or weight-based adjustment of the mA/kV was utilized to reduce the radiation dose to as low as reasonably achievable.INDICATION: Unlisted Reason for ExamS/p kidney transplant infection. Shortness of breath COMPARISON:Chest CT from 01/20/2020. CT of the abdomen [...] heart and pericardium are within normal limits. Markedcoronary arterial calcification. HEPATOBILIARY: The liver is enlarged. No focal hepatic lesions. Prior cholecystectomy. No biliary ductal dilatation.SPLEEN: 13.8 cm splenomegaly.PANCREAS: No focal masses or ductal dilatation. ADRENALS: No adrenal nodules.KIDNEYS/URETERS: The [place] kidneys are atrophic. No hydronephrosis, stones, or exophytic masses. 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 Prior hysterectomy. PERITONEUM/RETROPERITONEUM: There is a trace amount of fluid adjacent to theleft lower quadrant transplant kidney.LYMPH NODES: No lymphadenopathy.VESSELS: Unremarkable. GI TRACT: No distention or wall thickening. Mild diverticulosis of the sigmoid colon. Mild diverticulosis ofthe right colon. The appendix is normal. BONES AND SOFT TISSUES: Moderate degenerative disc changes at L4-L5 with a moderate-sized posterior disc osteophyte complex. IMPRESSION: 1.The trace amount of fluid adjacent to the left lower quadrant transplant kidney was better evaluated on the recent ultrasound. 2.Otherwise, no abnormality in the chest, abdomen, or pelvis to suggest an infection. 3.Hepatosplenomegaly. Signed: Federico Castorena MDRchuckort Verified Date/Time: 02/03/2020 18:35:58 Reading Location: [facility] C013Y CT Body Reading Room CT, CHEST, WITHOUT [id number] 18:35:00Dialysis 05/23Unlisted Reason for Exam - Click Yes and Enter Reason Below->YesUnlisted Reason for Exam->Source of infectionFINAL REPORT TECHNIQUE: CT of the chest, abdomen, and pelvis WITHOUT intravenous contrast and WITHOUT oral contrast. Dose modulation, iterative reconstruction, and/or weight-based adjustment of the mA/kV was utilized to reduce the radiation dose to as low as reasonably achievable.INDICATION: Unlisted Reason for ExamS/p kidney transplant infection. Shortness of breath COMPARISON:Chest CT from 01/20/2020. CT of the abdomen [...] heart and pericardium are within normal limits. Markedcoronary arterial calcification. HEPATOBILIARY: The liver is enlarged. No focal hepatic lesions. Prior cholecystectomy. No biliary ductal dilatation.SPLEEN: 13.8 cm splenomegaly.PANCREAS: No focal masses or ductal dilatation. ADRENALS: No adrenal nodules.KIDNEYS/URETERS: The [place] kidneys are atrophic. No hydronephrosis, stones, or exophytic masses. 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 Prior hysterectomy. PERITONEUM/RETROPERITONEUM: There is a trace amount of fluid adjacent to theleft lower quadrant transplant kidney.LYMPH NODES: No lymphadenopathy.VESSELS: Unremarkable. GI TRACT: No distention or wall thickening. Mild diverticulosis of the sigmoid colon. Mild diverticulosis ofthe right colon. The appendix is normal. BONES AND SOFT TISSUES: Moderate degenerative disc changes at L4-L5 with a moderate-sized posterior disc osteophyte complex. IMPRESSION: 1.The trace amount of fluid adjacent to the left lower quadrant transplant kidney was better evaluated on the recent ultrasound. 2.Otherwise, no abnormality in the chest, abdomen, or pelvis to suggest an infection. 3.Hepatosplenomegaly. Signed: Federico Castorena MDReport Verified Date/Time: 02/03/2020 18:35:58 Reading Location: [address] Body Reading Room (CELLAVISION MANUAL DIFF)2020-02-03 [...] PLATELET CONCENTRATION Adequate (CELLAVISION)(BEAKER) (test code = 2838) Family Service Aide ID - bon Wang comments: Slide comments:LACTATE DEHYDROGENASE (LDH)2020-02-03 17:39:00 Test Item Value Reference Range Interpretation Comments LACTATE DEHYDROGENASE (BEAKER) (test 173 U/L 125-220 code = 635) Family Service Aide ID - DBURIC [id number] 17:39:00 Test Item Value Reference Range Interpretation Comments URIC ACID (BEAKER) (test code = 10.3 mg/dL 2.6-7.2 H 773) Family Service Aide ID - DBPOCT-GLUCOSE [id number] 17:37:00 Test Item Value Reference Range Interpretation Comments POC-GLUCOSE METER 128 mg/dL 70-110 H : TESTED A T [facility] 6720 (BEAKER) (test code = [facility] [place], 1538) 10128: Family Service Aide/Techni martita ID = [id number] for THEA GALLAGHER LACTIC ACID, [id number] 17:17:00 Test Item Value Reference Range Interpretation Comments LACTATE BLOOD VENOUS 1.28 mmol/L 0.50-2.20 Specime n slightly (2) (BEAKER) (test hemolyzed code = 3339) Family Service Aide ID - BSCBC W/PLT COUNT & AUTO [id number] 17:04:00 Test Item Value Reference Range Interpretation [...] 0-0 (BEAKER) (test code = 413) RETICULOCYTE [id number] 16:32:00 Test Item Value Reference Range Interpretation Comments RETICULOCYTE COUNT PCT (BEAKER) (test 4.1 % 0.5-1.7 H code = 575) Family Service Aide ID - [id number], BRAIN, WITHOUT [id number] 16:30:00Dialysis 05/23Unlisted Reason for Exam - Click Yes and Enter Reason Below->YesUnlisted Reason for Exam->Possible seizure activity. Hx of Sz, unknown cause.FINAL REPORT CT, BRAIN, WITHOUT CONTRAST INDICATION: Unlisted Reason for ExamPossible seizure activity. Hx of Sz, unknown cause. TECHNIQUE: Noncontrast axial imaging was obtained from [...] territorial infarct. No mass effect. No hydrocephalus. Mild generalized cerebral volume loss. Scattered foci of hypoattenuation within the periventricular and subcortical white matter are a nonspecific finding commonly attributed to chronic small vessel ischemic disease. Osseous structures: No fracture.No suspicious lesion. Paranasal sinuses and mastoid air cells: No evidence of sinusitis. Mastoids are clear. Orbital contents: Globes are intact. IMPRESSION: No acute intracranial hemorrhage or CT evidence of territorial infarct. If there is persistent clinical concern for intracranial pathology, MR examination is recommended for further characterization. Signed: Ember Browning MDReport Verified Date/Time: 02/03/2020 16:30:33 BASIC METABOLIC [id number] 15:49:00 Test Item Value Reference Range Interpretation [...] 697) EGFR (BEAKER) (test 29 mL/min/1.73 ESTIMA MARLINE GFR IS code = 1092) sq m NOT ACCURATE CREATININE CLEARANCE IN PREDICTING GLOMERULAR FILTRATION RATE . ESTIMATED GFR I S NOT APPLICABLE FOR DIALYSIS PATIEN TS. Family Service Aide ID - [id number] 15:47:00 Test Item Value Reference Range Interpretation Comments PHOSPHORUS (BEAKER) (test code = 2.8 mg/dL 2.3-4.7 604) Family Service Aide ID - [id number] 15:47:00 Test Item Value Reference Range Interpretation Comments MAGNESIUM (BEAKER) (test code = 2.4 mg/dL 1.6-2.6 627) Family Service Aide ID - BSHEPATIC FUNCTION [id number] 15:47:00 Test Item Value Reference Range Interpretation [...] (test code = 38 U/L 6-55 347) Family Service Aide ID - [id number] 15:44:00 Test Item Value Reference Range Interpretation [...] 0-0 (BEAKER) (test code = 413) POCT-GLUCOSE [id number] 14:25:00 Test Item Value Reference Range Interpretation Comments POC-GLUCOSE METER 166 mg/dL 70-110 H : TESTED A T [facility] 6720 (BEAKER) (test code = [facility] [place], 1538) 56118: Family Service Aide/Techni martita ID = [id number] for JEM OAKES POCT-GLUCOSE [id number] 14:25:00 Test Item Value Reference Range Interpretation Comments POC-GLUCOSE METER 160 mg/dL 70-110 H : TESTED A T [facility] 6720 (BEAKER) (test code = [facility], 1538) 11814: Family Service Aide/Techni martita ID = [id number] for JEM OAKES TACROLIMUS [id number] 13:12:00 Test Item Value Reference Range Interpretation Comments TACROLIMUS BLOOD (BEAKER) (test 9.5 ng/mL 10.0-20.0 L code = 657) Family Service Aide ID - SUDHEER LOPEZOOD GAS, [id number] 12:51:00 Test Item Value Reference Range Interpretation [...] code = 1819) 30.0 % LACTIC ACID, [id number] 12:41:00 Test Item Value Reference Range Interpretation Comments LACTATE BLOOD VENOUS (2) (BEAKER) 1.89 mmol/L 0.50-2.20 (test code = 2872) Family Service Aide ID - WILI [id number] 12:37:00 Test Item Value Reference Range Interpretation Comments AMMONIA (BEAKER) (test code = 348) 34 mol/L 18-72 Family Service Aide ID - RICHELLE LPOCT-GLUCOSE [id number] 11:35:00 Test Item Value Reference Range Interpretation Comments POC-GLUCOSE METER 175 mg/dL 70-110 H : TESTED A T [facility] 6720 (BEAKER) (test code = [facility], 1538) 97502: Family Service Aide/Techni martita ID = [id number] for THEA GALLAGHER RAD, CHEST, 1 VIEW, NON [id number] 10:03:00Dialysis 05/23Reason for exam:- >Infectious workupShould this be performed at the bedside?->YesFINAL REPORT INDICATION: Infectious workup COMPARISON: 02/01/2020 TECHNIQUE: Single frontal view of the chest. FINDINGS: Lungs and pleura: Clear lungs. Small left effusion versus pleural thickening, unchanged.Heart and mediastinum: Normal heart size. Unremarkable mediastinal contours.Osseous structures: No acute abnormality.Other: None. IMPRESSION: No acute intrathoracic abnormality. Signed: Patt Wright MDReport Verified Date/Time: 02/03/2020 10:03:48 Reading Location: [facility] Radiology Reading Room URINALYSIS W/ REFLEX URINE [id number] 09:49:00 Test Item Value Reference Range Interpretation [...] = 516) SOURCE(BEAKER) (test code = 2795) Family Service Aide ID - [auto]Family Service Aide ID - techBASIC METABOLIC [id number] 09:01:00 Test Item Value Reference Range Interpretation [...] 697) EGFR (BEAKER) (test 25 mL/min/1.73 ESTIMA MARLINE GFR IS code = 1092) sq m NOT ACCURATE CREATININE CLEARANCE IN PREDICTING GLOMERULAR FILTRATION RATE . ESTIMATED GFR I S NOT APPLICABLE FOR DIALYSIS PATIEN TS. Family Service Aide ID - WILI MTACROLIMUS [id number] 08:59:00 Test Item Value Reference Range Interpretation Comments TACROLIMUS BLOOD (BEAKER) (test 11.3 ng/mL 10.0-20.0 code = 657) Family Service Aide ID - SUDHEER [id number] 08:47:00 Test Item Value Reference Range Interpretation Comments PHOSPHORUS (BEAKER) (test code = 3.1 mg/dL 2.3-4.7 604) Family Service Aide ID - WILI [id number] 08:47:00 Test Item Value Reference Range Interpretation Comments MAGNESIUM (BEAKER) (test code = 2.4 mg/dL 1.6-2.6 627) Family Service Aide ID - WILI MCBC (HEMOGRAM ONLY)2020-02-03 08:23:00 [...] 0-0 (BEAKER) (test code = 413) POCT-GLUCOSE [id number] 06:47:00 Test Item Value Reference Range Interpretation Comments POC-GLUCOSE METER 133 mg/dL 70-110 H : TESTED A T [facility] 6720 (BEAKER) (test code = [facility], 153) 88798: Family Service Aide/Techni martita ID = [id number] for Ma rtin, Sheley - Ngozi LACTIC ACID, [id number] 05:59:00 Test Item Value Reference Range Interpretation Comments LACTATE BLOOD VENOUS (2) (BEAKER) 2.40 mmol/L 0.50-2.20 H (test code = 2872) Family Service Aide ID - WILI MPOCT-GLUCOSE [id number] 04:53:00 Test Item Value Reference Range Interpretation Comments POC-GLUCOSE METER 141 mg/dL 70-110 H : TESTED A T [facility] 6720 (BEAKER) (test code = [facility], 1538) 59141: Family Service Aide/Techni martita ID = [id number] for Ma rtin, Sheley - Ngozi VANCOMYCIN LEVEL, [id number] 04:03:00 Test Item Value Reference Range Interpretation Comments VANCOMYCIN RANDOM (BEAKER) (test 5.9 ug/mL code = 523) Reference Range: No NormalsOperator ID - WILI [id number] 03:58:00 Test Item Value Reference Range Interpretation Comments POTASSIUM (BEAKER) (test code = 4.5 meq/L 3.5-5.1 379) Family Service Aide ID - WILI [id number] 03:58:00 Test Item Value Reference Range Interpretation Comments MAGNESIUM (BEAKER) (test code = 1.9 mg/dL 1.6-2.6 627) Family Service Aide ID - WILI MPOCT-GLUCOSE [id number] 03:51:00 Test Item Value Reference Range Interpretation Comments POC-GLUCOSE METER 132 mg/dL 70-110 H : TESTED A [facility] 6720 (PeopleAdmin) (test code = [place], 153) 44175: Family Service Aide/Techni martita ID = [id number] for DO August PROTHROMBIN TIME/[id number] 03:43:00 Test Item Value Reference Range Interpretation [...] is 2.5-3.5 for patients wiht mechanical heart valves.[id number] 03:43:00 Test Item Value Reference Range Interpretation Comments PARTIAL THROMBOPLASTIN TIME 37.1 seconds 22.5-36.0 H (BEAKER) (test code = 760) POCT-GLUCOSE [id number] 02:57:00 Test Item Value Reference Range Interpretation Comments POC-GLUCOSE METER 143 mg/dL 70-110 H : TESTED A T [facility] 6720 (PeopleAdmin) (test code = [place], 1538) 46396: Family Service Aide/Techni martita ID = [id number] for Jesús Fitch - Ngozi POCT-GLUCOSE [id number] 01:53:00 Test Item Value Reference Range Interpretation Comments POC-GLUCOSE METER 154 mg/dL 70-110 H : TESTED A T [facility] 6720 (BEAKER) (test code = [facility], 1538) 45793: Family Service Aide/Techni martita ID = [id number] for Jesús Fitch - Ngozi BLOOD GAS, [id number] 01:49:00 Test Item Value Reference Range Interpretation [...] (test code = 1819) 30.0 % POCT-GLUCOSE [id number] 00:30:00 Test Item Value Reference Range Interpretation Comments POC-GLUCOSE METER 158 mg/dL 70-110 H : TESTED A T [facility] 6720 (BEAKER) (test code = [facility], 153) 67198: Family Service Aide/Techni martita ID = [id number] for Jesús Fitch - Ngozi LACTIC ACID, [id number] 23:16:00 Test Item Value Reference Range Interpretation Comments LACTATE BLOOD VENOUS (2) (BEAKER) 2.72 mmol/L 0.50-2.20 H (test code = 2872) Family Service Aide ID - RICHELLE LPOCT-GLUCOSE [id number] 23:02:00 Test Item Value Reference Range Interpretation Comments POC-GLUCOSE METER 158 mg/dL 70-110 H : TESTED A T [facility] 6720 (BEAKER) (test code = [facility], 1538) 52848: Family Service Aide/Techni martita ID = [id number] for Jesús Fitch POCT-GLUCOSE [id number] 21:53:00 Test Item Value Reference Range Interpretation Comments POC-GLUCOSE METER 160 mg/dL 70-110 H : TESTED A T [facility] 6720 (BEAKER) (test code = [facility] [place], 1538) 96266: Family Service Aide/Techni martita ID = [id number] for Jesús Fitch Ngozi BASIC METABOLIC [id number] 21:10:00 Test Item Value Reference Range Interpretation [...] 697) EGFR (BEAKER) (test 21 mL/min/1.73 ESTIMA MARLINE GFR IS code = 1092) sq m NOT ACCURATE CREATININE CLEARANCE IN PREDICTING GLOMERULAR FILTRATION RATE . ESTIMATED GFR I S NOT APPLICABLE FOR DIALYSIS PATIEN TS. Family Service Aide ID - [id number] 21:05:00 Test Item Value Reference Range Interpretation Comments MAGNESIUM (BEAKER) 1.4 mg/dL 1.6-2.6 L Specimen slightly (test code = 627) hemolyzed Family Service Aide ID - [id number] 21:05:00 Test Item Value Reference Range Interpretation Comments PHOSPHORUS (BEAKER) 2.3 mg/dL 2.3-4.7 Specimen slightly (test code = 604) hemolyzed Family Service Aide ID - BSPOCT-GLUCOSE [id number] 20:59:00 Test Item Value Reference Range Interpretation Comments POC-GLUCOSE METER 170 mg/dL 70-110 H : TESTED A T [facility] 6720 (BEAKER) (test code = [facility], 153) 90693: Family Service Aide/Techni martita ID = [id number] for Jesús Fitch CBC (HEMOGRAM ONLY)2020-02-02 20:57:00 Test Item Value [...] 0-0 (BEAKER) (test code = 413) POCT-GLUCOSE [id number] 18:58:00 Test Item Value Reference Range Interpretation Comments POC-GLUCOSE METER 225 mg/dL 70-110 H : TESTED A T [facility] 6720 (BEAKER) (test code = [facility] [employer] [facility], 153) 42134: Family Service Aide/Techni martita ID = [id number] for JEM OAKES POCT-GLUCOSE [id number] 17:49:00 Test Item Value Reference Range Interpretation Comments POC-GLUCOSE METER 240 mg/dL 70-110 H : TESTED A T [facility] 6720 (BEAKER) (test code = [facility], 1538) 29620: Family Service Aide/Techni martita ID = [id number] for Bu sh, Susan TSH/FREE T4 IF [id number] 17:09:00 Test Item Value Reference Range Interpretation Comments THYROID STIMULATING HORMONE 0.984 uIU/mL 0.350-4.940 (BEAKER) (test code = 772) Family Service Aide ID - BSLACTIC ACID, [id number] 16:57:00 Test Item Value Reference Range Interpretation Comments LACTATE BLOOD VENOUS (2) (BEAKER) 4.08 mmol/L 0.50-2.20 HH (test code = 2872) Family Service Aide ID - BSBASIC METABOLIC [id number] 16:51:00 Test Item Value Reference Range Interpretation [...] 697) EGFR (BEAKER) (test 20 mL/min/1.73 ESTIMA MARLINE GFR IS code = 1092) sq m NOT ACCURATE CREATININE CLEARANCE IN PREDICTING GLOMERULAR FILTRATION RATE . ESTIMATED GFR I S NOT APPLICABLE FOR DIALYSIS PATIEN TS. Family Service Aide ID - [id number] 16:49:00 Test Item Value Reference Range Interpretation Comments POTASSIUM (BEAKER) (test code = 4.1 meq/L 3.5-5.1 379) Family Service Aide ID - [id number] 16:49:00 Test Item Value Reference Range Interpretation Comments GLUCOSE RANDOM (BEAKER) (test code 270 mg/dL 70-105 H = 652) Family Service Aide ID - [id number] 15:52:00 Test Item Value Reference Range Interpretation Comments AMYLASE (BEAKER) (test code = 349) 9 U/L 25-125 L Family Service Aide ID - [id number] 15:52:00 Test Item Value Reference Range Interpretation Comments LIPASE (BEAKER) (test code = 749) 7 U/L 8-78 L Family Service Aide ID - AAHAMIDBASIC METABOLIC [id number] 15:44:00 Test Item Value Reference Range Interpretation [...] 697) EGFR (BEAKER) (test 20 mL/min/1.73 ESTIMA MARLINE GFR IS code = 1092) sq m NOT ACCURATE CREATININE CLEARANCE IN PREDICTING GLOMERULAR FILTRATION RATE . ESTIMATED GFR I S NOT APPLICABLE FOR DIALYSIS PATIEN TS. Family Service Aide ID - AAHAMIDPOCT-GLUCOSE [id number] 15:13:00 Test Item Value Reference Range Interpretation Comments POC-GLUCOSE METER 281 mg/dL 70-110 H : TESTED A T [facility] 6720 (BEAKER) (test code = [place], 1538) [address]: Family Service Aide/Techni martita ID = [id number] for FRIDA FELIPE TROPONIN [id number] 14:04:00 Test Item Value Reference Range Interpretation [...] failure, acidosis, acute neurological disease, and persistent tachyarrhythmia.Family Service Aide ID - AAHAMIDHEMOGLOBIN A1C 2020-02-02 13:51:00 Test Item Value Reference Range Interpretation Comments HEMOGLOBIN A1C (BEAKER) (test code = 5.9 % 4.3-6.1 368) LACTIC ACID, [id number] 13:16:00 Test Item Value Reference Range Interpretation Comments LACTATE BLOOD VENOUS 5.73 mmol/L 0.50-2.20 HH Specime n moderately (2) (BEAKER) (test hemolyzed code = 2872) Family Service Aide ID - AAHAMIDKETONE, [id number] 13:00:00 Test Item Value Reference Range Interpretation Comments KETONES, BLOOD (BEAKER) (test code = < mmol/L <0.4 1103) POCT-BLOOD GASES, [id number] 12:39:00 Test Item Value Reference Range Interpretation [...] -13.0 meq/L -2.0-3.0 L : TESTED AT [facility] [address] ARTERIAL-POC [facility], (BEAKER) (test code [address]: = 1841) Family Service Aide/Techni martita ID = [id number] for GE[place]IA OVERTON [id number] 12:39:00 Test Item Value Reference Range Interpretation Comments POC-SODIUM ([facility]) 130 meq/L 135-148 L : TESTED AT [place] [address] (test code = 1542) [place], [address]: Family Service Aide/Techni martita ID = [id number] for GE[place]IA REDDY [id number] 12:39:00 Test Item Value Reference Range Interpretation Comments POC-POTASSIUM 4.9 meq/L 3.6-5.5 : TESTED AT [place] [address] ([facility]) (test code [facility], = 1540) [address]: Family Service Aide/Techni martita ID = [id number] for GE[place]IA REDDY [id number]-[id number] 12:39:00 Test Item Value Reference Range Interpretation Comments POC-HEMOGLOBIN 8.2 g/dL 12.0-15.0 L : TESTED AT [place] [address] ([facility]) ([facility] = [facility], 1856) [address]: Family Service Aide/Techni martita ID = [id number] for GE[place]IA REDDY [id number] 12:39:00 Test Item Value Reference Range Interpretation Comments POC-HEMATOCRIT 24 % 36-45 L : Family Service Aide/Te chnician ID = ([facility]) (test code = 604587 for GE[place]IA REDDY 185) POCT-CALCIUM [id number] 12:39:00 Test Item Value Reference Range Interpretation Comments POC-CALCIUM IONIZED 1.27 mmol/L 1.12-1.27 : TESTED AT [facility] ([facility]) (test code = [facility] B [facility] 1536) [place], [address]: Family Service Aide/Techni martita ID = [id number] for GE[place]IA REDDY [id number] 12:39:00 Test Item Value Reference Range Interpretation Comments POC-GLUCOSE ([facility]) 445 mg/dL 70-110 HH : TESTE D AT [place] [address] (test code = 1855) [place], [address]: Family Service Aide/Techni martita ID = [id number] for GEORGIA REDDY TACROLIMUS [id number] 12:36:00 Test Item Value Reference Range Interpretation Comments TACROLIMUS BLOOD ([facility]) (test 11.8 ng/mL 10.0-20.0 code = 657) Family Service Aide ID - MAYRA WPOCT-GLUCOSE [id number] 12:15:00 Test Item Value Reference Range Interpretation Comments POC-GLUCOSE METER 397 mg/dL 70-110 H : TESTED Keisha Adam [facility] 6720 (BEAKER) (test code = [place], 1538) [address]: Family Service Aide/Techni martita ID = [id number] for IONA WEAVER CBC W/PLT COUNT & AUTO [id number] 12:10:00 Test Item Value Reference Range Interpretation Comments WHITE BLOOD CELL COUNT (BEAKER) 13.6 K/ L 3.5-10.5 H (test code [...] CONCENTRATION Adequate (CELLAVISION)(BEAKER) (test code = 3438) Family Service Aide ID - Chad Suggs comments: Slide comments:POCT-GLUCOSE [id number] 10:05:00 Test Item Value Reference Range Interpretation Comments POC-GLUCOSE METER 432 mg/dL 70-110 HH : Notified RN/MD: (BEAKER) (test code = TESTED AT [facility] 0035 4566) [facility], [address]: Family Service Aide/Techni martita ID = [id number] for NORMA WINSTON BASIC METABOLIC [id number] 10:00:00 Test Item Value Reference Range Interpretation [...] 697) EGFR (BEAKER) (test 19 mL/min/1.73 ESTIMA MARLINE GFR IS code = 1092) sq m NOT ACCURATE CREATININE CLEARANCE IN PREDICTING GLOMERULAR FILTRATION RATE . ESTIMATED GFR I S NOT APPLICABLE FOR DIALYSIS PATIEN TS. Family Service Aide ID - AAHAMIDCREATINE KINASE (CK)2020-02-02 09:55:00 Test Item Value Reference Range Interpretation Comments CREATINE KINASE TOTAL (BEAKER) (test 13 U/L 29-200 L code = 380) Family Service Aide ID - AAHAMIDSARS-COV2/RT-PCR ([facility])2020-02-02 07:28:00 Test Item Value Reference Range Interpretation Comments SARS-COV2/RT-PCR (test Negative Not Detected, Negative, code = 7522168) See external report for linked test SARS-COV-2 PERFORMING LAB [facility] (test code = 8406096) Negative result for this test determines that SARS-CoV-2 RNA was not present in the specimen above the Limit of Detection (LOD). However, Negative results do not preclude SARS-CoV-2 infection and should not be used as the sole basis for treatment or patient management decisions. Negative results must be [...] justifying the authorization of the emergency use ofin vitro diagnostic tests for detection and/or diagnosis of COVID-19 is terminated under Section 564(b)(2) of the Act or the EUA is revoked under Section 564(g) of the Act.Fact Sheet for Healthcare Prov iders:https://www.[employer]/sites/default/files/product/documents/Fact_Sheet_HC _Idovzfwxb_Iszn_FLYF-VdA-2.pdfFact Sheet for Healthcare Patients:https://www.[employer]/sites/default/files/product/docume nts/Lnjq_Xfitq_Svnmyymu_Fsei_HQXJ-IvP-1.pdfPerforming Laboratory:[facility].[place], [place] [address]L/S, TRANSPLANT, KIDNEY 2020-02-02 06:26:00Dialysis 05/23With DopplerReason for exam:->Transplant KidneyShould this be performed at the bedside?->YesFINAL REPORT Exam: Ultrasound transplant kidney Clinical History: Transplant Kidney Comparison: Renal transplant ultrasound 01/21/2020. Technique: Renal transplant ultrasound was performed with duplex Doppler. Findings: There is a left lower quadrant renal transplant graft which measures 11.9 x 5.5 x 5.9 cm with cortical thickness of 1.4 cm. The renal echogenicity is normal. Thereis small heterogeneously hypoechoic perinephric fluid collection about the upper pole measuring 3.7 x 3.2 x 1.8 cm. There is no hydronephrosis or shadowing stone. The urinary bladder was not seen, which may be due to decompression. Doppler evaluation of the transplant kidney demonstrates patency and normal vascular waveforms of the external iliac artery, arterial anastomosis, main renal artery, external iliac vein, venous anastomosis, and main renal vein. There is no velocity gradient to suggest significant stenosis. The peak arterial systolic velocity in the iliac limb above and below the anastomosis is 142 cm/sec and 107 cm/sec respectively, 169 cm/sec at the anastomosis and 102 cm/sec in the main renal artery. The peak venous systolic velocity above and below the anastomosis is 73.5 cm/sec and63.6 cm/sec respectively, 53.9 cm/sec at the anastomosis and 86.4 cm/sec in the main renal vein. Theresistive indices in the upper, inter and lower polar regions are 0.68, 0.68 and 0.67 respectively. The acceleration times and acceleration indices are normal. Impression: Status post left lower quadrant renal transplant.Small complex perinephric collection.Patent vessels with normal resistive indices. Signed: Aleks Jamison MDReport Verified Date/Time: 02/02/2020 06:26:39 URINALYSIS W/ REFLEX URINE [id number] 05:05:00 Test Item Value Reference Range Interpretation [...] = 515) SOURCE(BEAKER) (test code = 2795) Family Service Aide ID - [auto]Family Service Aide ID - techRESPIRATORY PANEL [id number] 03:34:00 Test Item Value Reference Range Interpretation [...] decisions. This sample was tested at the [facility]ostics [facility] using the [employer] FilmArray Respiratory Panel. It is FDA cleared and has been verified and approved by the [facility] for clinical use on nasopharyngeal swab specimens.The performance of the FilmArrayRP has not been established in individuals who received influenza vaccine. Recent administration of a nasal influenza vaccine may cause false positive results for Influenza A and/orInfluenza B.POCT-GLUCOSE [id number] 02:11:00 Test Item Value Reference Range Interpretation Comments POC-GLUCOSE METER 359 mg/dL 70-110 H : Notified RN/MD: (ESTRELLA) (test code = TESTED AT [facility] 6720 [address]) [facility], [address]: Family Service Aide/Techni martita ID = [id number] for GR EEN (V), PAMELAR COMPLEMENT COMPONENT [id number] 01:40:00 Test Item Value Reference Range Interpretation Comments C4 COMPLEMENT (BEAKER) (test code = 25 mg/dL 15-57 394) Family Service Aide ID - BSCOMPLEMENT COMPONENT [id number] 01:40:00 Test Item Value Reference Range Interpretation Comments C3 COMPLEMENT (BEAKER) (test code = 161 mg/dL 82-193 393) Family Service Aide ID - BSC-REACTIVE [id number] 01:38:00 Test Item Value Reference Range Interpretation Comments C-REACTIVE PROTEIN (BEAKER) (test 28.63 mg/dL 0.00-0.50 H code = 676) Family Service Aide ID - BSRAPID INFLUENZA A&B [id number] 01:32:00 Test Item Value Reference Range Interpretation Comments RAPID INFLUENZA A AG (BEAKER) Negative Negative, Inconclusive (test code = 1622) RAPID INFLUENZA B AG (BEAKER) Negative Negative, Inconclusive (test code = 1623) HEPATIC FUNCTION [id number] 01:06:00 Test Item Value Reference Range Interpretation [...] (test code = 40 U/L 6-55 347) Family Service Aide ID - BSBASIC METABOLIC [id number] 00:33:00 Test Item Value Reference Range Interpretation [...] 697) EGFR (BEAKER) (test 23 mL/min/1.73 ESTIMA MARLINE GFR IS code = 1092) sq m NOT ACCURATE CREATININE CLEARANCE IN PREDICTING GLOMERULAR FILTRATION RATE . ESTIMATED GFR I S NOT APPLICABLE FOR DIALYSIS PATIEN TS. Family Service Aide ID - BSPROTHROMBIN TIME/[id number] 00:30:00 Test Item Value Reference Range Interpretation [...] is 2.5-3.5 for patients wiht mechanical heart valves.[id number] 00:30:00 Test Item Value Reference Range Interpretation Comments PARTIAL THROMBOPLASTIN TIME 27.8 seconds 22.5-36.0 (BEAKER) (test code = 760) [id number] 00:29:00 Test Item Value Reference Range Interpretation Comments PHOSPHORUS (BEAKER) (test code = 2.1 mg/dL 2.3-4.7 L 604) Family Service Aide ID - [id number] 00:29:00 Test Item Value Reference Range Interpretation Comments MAGNESIUM (BEAKER) (test code = 1.4 mg/dL 1.6-2.6 L 627) Family Service Aide ID - BSCBC W/PLT COUNT & AUTO [id number] 00:18:00 Test Item Value Reference Range Interpretation [...] PERCENT (BEAKER) (test code = 2801) CALCIUM, [id number] 00:13:00 Test Item Value Reference Range Interpretation Comments CALCIUM IONIZED (BEAKER) (test 1.23 mmol/L 1.12-1.27 code = 698) PH, BLOOD (BEAKER) (test code = 7.35 1810) RAD, CHEST, 1 VIEW, NON [id number] 00:09:00Dialysis 05/23Reason for exam:->Post-opShould this be performed at the bedside?->YesFINAL REPORT RAD, CHEST, 1 VIEW, NON DEPT INDICATION: Post-op COMPARISON: Pain radiograph the chest dated 01/22/2020. FINDINGS: Portable frontal view of the chest. IMPRESSION: Support Lines: Interval removal of the left IJ central venous catheter. Lungs and pleura: Unchanged airspace and pleural opacities. No pneumothorax.Heart and mediastinum: Stable contours. Additional findings: None. Signed: Darron [facility] Verified Date/Time: 02/02/2020 00:09:35 TACROLIMUS [id number] 11:50:00 Test Item Value Reference Range Interpretation Comments TACROLIMUS BLOOD (BEAKER) (test 13.0 ng/mL 10.0-20.0 code = 657) Family Service Aide ID - NABEEL FCOMPREHENSIVE METABOLIC [id number] 11:13:00 Test Item Value Reference Range Interpretation [...] 347) EGFR (BEAKER) (test 26 mL/min/1.73 ESTIMA MARLINE GFR IS code = 1092) sq m NOT ACCURATE CREATININE CLEARANCE IN PREDICTING GLOMERULAR FILTRATION RATE . ESTIMATED GFR I S NOT APPLICABLE FOR DIALYSIS PATIEN TS. Family Service Aide ID - [id number] 11:10:00 Test Item Value Reference Range Interpretation Comments PHOSPHORUS (BEAKER) (test code = 2.1 mg/dL 2.3-4.7 L 604) Family Service Aide ID - ROSIANGCBC W/PLT COUNT & AUTO [id number] 11:06:00 Test Item Value Reference Range Interpretation [...] CONCENTRATION Adequate (CELLAVISION)(BEAKER) (test code = 3438) Family Service Aide ID - Raya OverholtUser comments: Slide comments:URINALYSIS W/ REFLEX URINE [id number] 09:51:00 Test Item Value Reference Range Interpretation [...] 1585) Rare SOURCE(BEAKER) (test code = 2795) Family Service Aide ID - [auto]Family Service Aide ID - techANAEROBIC [id number] 19:48:00 Test Item Value Reference Range Interpretation Comments CULTURE (BEAKER) (test No anaerobes isolated code = 1095) TACROLIMUS [id number] 10:33:00 Test Item Value Reference Range Interpretation Comments TACROLIMUS BLOOD (BEAKER) (test 6.4 ng/mL 10.0-20.0 L code = 657) Family Service Aide ID - EMERSONTOXOPLASMA GONDII ANTIBODY, [id number] 10:22:00 Test Item Value Reference Range Interpretation Comments TOXOPLASMA GONDII IGG QUANTITATIVE 7.0 IU/mL <10.0 (BEAKER) (test code = 3428) Toxoplasma Gondii IgG Result Interpretation: </= 9.9 IU/mL Normal 10-11 IU/mL Equivocal >/= 12IU/mL PositiveBASIC METABOLIC [id number] 09:52:00 Test Item Value Reference Range Interpretation [...] 697) EGFR (BEAKER) (test 26 mL/min/1.73 ESTIMA MARLINE GFR IS code = 1092) sq m NOT ACCURATE CREATININE CLEARANCE IN PREDICTING GLOMERULAR FILTRATION RATE . ESTIMATED GFR I S NOT APPLICABLE FOR DIALYSIS PATIEN TS. Family Service Aide ID - [id number] 09:51:00 Test Item Value Reference Range Interpretation Comments PHOSPHORUS (BEAKER) (test code = 1.9 mg/dL 2.3-4.7 L 604) Family Service Aide ID - [id number] 09:51:00 Test Item Value Reference Range Interpretation Comments MAGNESIUM (BEAKER) (test code = 1.6 mg/dL 1.6-2.6 627) Family Service Aide ID - ADMINPOCT-GLUCOSE [id number] 08:36:00 Test Item Value Reference Range Interpretation Comments POC-GLUCOSE METER 142 mg/dL 70-110 H : TESTED A T [facility] 6720 (BEAKER) (test code = [place], 1538) [address]: Family Service Aide/Techni martita ID = [id number] for Wi lliams, Arediaa CBC W/PLT COUNT & AUTO [id number] 06:19:00 Test Item Value Reference Range Interpretation [...] PERCENT (BEAKER) (test code = 2801) POCT-GLUCOSE [id number] 22:32:00 Test Item Value Reference Range Interpretation Comments POC-GLUCOSE METER 172 mg/dL 70-110 H : TESTED A T [facility] 6720 (BEAKER) (test code = [facility] [place], 1538) [address]: Family Service Aide/Techni martita ID = [id number] for SA HERNANDEZ, NATALIE POCT-GLUCOSE [id number] 18:34:00 Test Item Value Reference Range Interpretation Comments POC-GLUCOSE METER 179 mg/dL 70-110 H : TESTED A T [facility] 67[address] (BEAKER) (test code = [facility], 1538) [address]: Family Service Aide/Techni martita ID = [id number] for RIN HIGGINS CALCIUM, [id number] 17:50:00 Test Item Value Reference Range Interpretation Comments CALCIUM IONIZED (BEAKER) (test 1.18 mmol/L 1.12-1.27 code = 698) PH, BLOOD (BEAKER) (test code = 7.36 1810) Range 1.12 - 1.27BASIC METABOLIC [id number] 15:16:00 Test Item Value Reference Range Interpretation [...] 697) EGFR (BEAKER) (test 18 mL/min/1.73 ESTIMA MARLINE GFR IS code = 1092) sq m NOT ACCURATE CREATININE CLEARANCE IN PREDICTING GLOMERULAR FILTRATION RATE . ESTIMATED GFR I S NOT APPLICABLE FOR DIALYSIS PATIEN TS. Family Service Aide ID - [id number] 15:11:00 Test Item Value Reference Range Interpretation Comments PHOSPHORUS (BEAKER) (test code = 2.4 mg/dL 2.3-4.7 604) Family Service Aide ID - [id number] 15:11:00 Test Item Value Reference Range Interpretation Comments MAGNESIUM (BEAKER) (test code = 2.1 mg/dL 1.6-2.6 627) Family Service Aide ID - FSEHEPATITIS A ANTIBODY, [id number] 15:07:00 Test Item Value Reference Range Interpretation Comments HEPATITIS A IGG ANTIBODY (BEAKER) Reactive Nonreactive A (test code = 2797) Family Service Aide ID - FSEHEPATITIS C [id number] 15:01:00 Test Item Value Reference Range Interpretation Comments HEPATITIS C ANTIBODY (BEAKER) Nonreactive Nonreactive (test code = 367) Family Service Aide ID - FSEHIV-1 ANTIGEN WITH HIV-1/2 [id number] 15:01:00 Test Item Value Reference Range Interpretation Comments HIV-1 ANTIGEN WITH HIV 1\\T\\2 Nonreactive Nonreactive ANTIBODY (2) (BEAKER) (test code = 2586) Family Service Aide ID - FSECRYPTOCOCCAL [id number] 14:52:00 Test Item Value Reference Range Interpretation Comments CRYPTOCOCCAL ANTIGEN, SERUM Negative Negative, Interference (BEAKER) (test code = 1828) POCT-GLUCOSE [id number] 12:26:00 Test Item Value Reference Range Interpretation Comments POC-GLUCOSE METER 219 mg/dL 70-110 H : TESTED A T [facility] 6720 (BEAKER) (test code = [place] [facility], 1538) [address]: Family Service Aide/Techni martita ID = [id number] for RIN HIGGINS TACROLIMUS [id number] 11:26:00 Test Item Value Reference Range Interpretation Comments TACROLIMUS BLOOD (BEAKER) (test 7.6 ng/mL 10.0-20.0 L code = 657) Family Service Aide ID - AAHAMIDSURGICALLY OBTAINED CULTURE + GRAM [id number] 08:42:00 Test Item Value Reference Range Interpretation Comments CULTURE A <1+ Same organi sm has (BEAKER) (test been isolated from code = 7735) cultures(s) of the same body site and collection date . Repeat identifi cation and susceptibil ity testing perform ed only after consultat ion with the [facility].Refe r to previous cultur e of* - Staphlococcus epidermidis GRAM STAIN 1+ WBCs RESULT (BEAKER) (test code = 1123) GRAM STAIN No organisms seen RESULT (BEAKER) (test code = 338492) PERITONEAL DIALYSIS EFFLUENT [id number] 08:39:00 Test Item Value Reference Interpretation Comments [...] No organisms seen (BEAKER) (test code = 560908) GRAM STAIN RESULT From aerobic (BEAKER) (test code = bottle only: gram 530899) positive cocci in clusters GRAM STAIN RESULT The previo usly (BEAKER) (test code = report ed result 203924) <1+ White blood cells seen is n o longer being reported. POCT-GLUCOSE [id number] 08:20:00 Test Item Value Reference Range Interpretation Comments POC-GLUCOSE METER 223 mg/dL 70-110 H : TESTED A T [facility] 6720 (BEAKER) (test code = [place], 1538) [address]: Family Service Aide/Techni martita ID = [id number] for RIN HIGGINS CBC W/PLT COUNT & AUTO [id number] 06:29:00 Test Item Value Reference Range Interpretation [...] PERCENT (BEAKER) (test code = 2801) POCT-GLUCOSE [id number] 05:56:00 Test Item Value Reference Range Interpretation Comments POC-GLUCOSE METER 255 mg/dL 70-110 H : TESTED A T [facility] 6720 (BEAKER) (test code = [place], 1538) [address]: Family Service Aide/Techni martita ID = [id number] for SANDRA GARNICA POCT-GLUCOSE [id number] 16:25:00 Test Item Value Reference Range Interpretation Comments POC-GLUCOSE METER 207 mg/dL 70-110 H : TESTED A T [facility] 6720 (BEAKER) (test code = G[place]DA [place] [facility], 1538) [address]: Family Service Aide/Techni martita ID = [id number] for Forrest Feng CALCIUM, [id number] 14:19:00 Test Item Value Reference Range Interpretation Comments CALCIUM IONIZED (BEAKER) (test 1.09 mmol/L 1.12-1.27 L code = 698) PH, BLOOD (BEAKER) (test code = 7.35 1810) Range 1.12 - 1.27BASIC METABOLIC [id number] 12:00:00 Test Item Value Reference Range Interpretation [...] 697) EGFR (BEAKER) (test 11 mL/min/1.73 ESTIMA MARLINE GFR IS code = 1092) sq m NOT ACCURATE CREATININE CLEARANCE IN PREDICTING GLOMERULAR FILTRATION RATE . ESTIMATED GFR I S NOT APPLICABLE FOR DIALYSIS PATIEN TS. [id number] 12:00:00 Test Item Value Reference Range Interpretation Comments MAGNESIUM (BEAKER) 2.2 mg/dL 1.6-2.6 Specimen slightly (test code = 627) hemolyzed [id number] 12:00:00 Test Item Value Reference Range Interpretation Comments PHOSPHORUS (BEAKER) 5.1 mg/dL 2.3-4.7 H Specimen slightly (test code = 604) hemolyzed POCT-GLUCOSE [id number] 11:16:00 Test Item Value Reference Range Interpretation Comments POC-GLUCOSE METER 198 mg/dL 70-110 H : TESTED A T [facility] 6720 (BEAKER) (test code = [place], 1538) [address]: Family Service Aide/Techni martita ID = [id number] for THEA MINOR TACROLIMUS [id number] 08:26:00 Test Item Value Reference Range Interpretation Comments TACROLIMUS BLOOD (BEAKER) (test 10.6 ng/mL 10.0-20.0 code = 657) Family Service Aide ID - AAHAMIDCBC W/PLT COUNT & AUTO [id number] 04:35:00 Test Item Value Reference Range Interpretation [...] PERCENT (BEAKER) (test code = 2801) POCT-GLUCOSE [id number] 23:20:00 Test Item Value Reference Range Interpretation Comments POC-GLUCOSE METER 244 mg/dL 70-110 H : TESTED A T [facility] 6720 (BEAKER) (test code = [facility], 1538) [address]: Family Service Aide/Techni martita ID = [id number] for SHAJI SANTIAGO ND POCT-GLUCOSE [id number] 18:09:00 Test Item Value Reference Range Interpretation Comments POC-GLUCOSE METER 230 mg/dL 70-110 H : TESTED A T [facility] 6720 (BEAKER) (test code [facility], = 1538) [address]: Family Service Aide/Techni martita ID = [id number] for Moli na, Nikki (cont ract) CALCIUM, [id number] 14:05:00 Test Item Value Reference Range Interpretation Comments CALCIUM IONIZED (BEAKER) (test 0.95 mmol/L 1.12-1.27 L code = 698) PH, BLOOD (BEAKER) (test code = 7.36 1810) Range 1.12 - 1.27POCT-GLUCOSE [id number] 12:43:00 Test Item Value Reference Range Interpretation Comments POC-GLUCOSE METER 190 mg/dL 70-110 H : TESTED A T [facility] 6720 (BEAKER) (test code [facility], = 1538) [address]: Family Service Aide/Techni martita ID = [id number] for Moli na, Nikki (cont ract) POCT-GLUCOSE [id number] 12:42:00 Test Item Value Reference Range Interpretation Comments POC-GLUCOSE METER 151 mg/dL 70-110 H : TESTED A T [facility] 6720 (BEAKER) (test code [place], = 1538) [address]: Family Service Aide/Techni martita ID = [id number] for Nikki Hutchins (cont ract) CALCIUM, [id number] 12:10:00 Test Item Value Reference Range Interpretation Comments CALCIUM IONIZED (BEAKER) (test 0.93 mmol/L 1.12-1.27 L code = 698) PH, BLOOD (BEAKER) (test code = 7.40 1810) Range 1.12 - 1.27TACROLIMUS [id number] 07:16:00 Test Item Value Reference Range Interpretation Comments TACROLIMUS BLOOD (BEAKER) (test 11.3 ng/mL 10.0-20.0 code = 657) Family Service Aide ID Emerald NUNEZ WBASIC METABOLIC [id number] 04:19:00 Test Item Value Reference Range Interpretation [...] S NOT APPLICABLE FOR DIALYSIS PATIEN TS. Family Service Aide ID - WILI [id number] 04:15:00 Test Item Value Reference Range Interpretation Comments PHOSPHORUS (BEAKER) (test code = 7.6 mg/dL 2.3-4.7 H 604) Family Service Aide ID - WILI [id number] 04:15:00 Test Item Value Reference Range Interpretation Comments MAGNESIUM (BEAKER) (test code = 1.7 mg/dL 1.6-2.6 627) Family Service Aide ID - WILI MVANCOMYCIN LEVEL, [id number] 04:10:00 Test Item Value Reference Range Interpretation [...] 01/22/2020 03:57:15 CBC W/PLT COUNT & AUTO [id number] 03:43:00 Test Item Value Reference Range Interpretation [...] PERCENT (BEAKER) (test code = 2801) POCT-GLUCOSE [id number] 23:41:00 Test Item Value Reference Range Interpretation Comments POC-GLUCOSE METER 201 mg/dL 70-110 H : [facility] (BEAKER) (test code = [place], 1538) [address]: Family Service Aide/Techni martita ID = [id number] for Co bb, Dania HEMOGLOBIN AND [id number] 22:08:00 Test Item Value Reference Range Interpretation Comments HEMOGLOBIN (BEAKER) (test code = 8.2 GM/DL 11.2-15.7 L 410) HEMATOCRIT (BEAKER) (test code = 25.7 % 34.1-44.9 L 411) Family Service Aide ID - [id number] METABOLIC [id number] 13:54:00 Test Item Value Reference Range Interpretation [...] S NOT APPLICABLE FOR DIALYSIS PATIEN TS. Family Service Aide ID - [place] FCBC W/PLT COUNT & AUTO [id number] 13:48:00 Test Item Value Reference Range Interpretation [...] (BEAKER) (test code = 2801) U/S, TRANSPLANT, [id number] 13:44:00Dialysis 05/23Reason for exam:->s/p kidney transplant- assess vesselsFINAL REPORT U/S, TRANSPLANT, KIDNEY CLINICAL HISTORY: s/p kidney transplant- assess vessels COMPARISON: Renal ultrasound 08/16/2016. TECHNIQUE: Real time grayscale, color, power, and spectral Doppler ultrasound of transplanted kidney was performed. FINDINGS: Transplanted kidney: Location: Right lower abdomen.Length = 10.7 cm.Collecting system: No hydronephrosis.Cortical thickness:Normal.Echogenicity: Normal.Perirenal fluid collections: None.Other findings: None. Urinary [...] artery (pre-anastomosis): 127 cm/sIliac artery (post-anastomosis): 140 cm/sIMPRESSION: 1. Normal odonnell-scale evaluation of transplanted kidney. No hydronephrosis. 2. Patent renal artery and vein. Elevated peak systolic velocity in the transplant renal artery anastomosis, 380 cm/s, concerning for stenosis, with otherwise unremarkable intrarenal waveforms. Signed: Vandana Narvaez Verified Date/Time: 01/21/2020 13:44:09 Reading Location: [address] Radiology Reading Room ELET [id number] 12:28:00 Test Item Value Reference Range Interpretation Comments PLATELET COUNT 186 K/CU MM 150-450 Specimen cont aminated (BEAKER) (test code after re testing BA# = [id number]) 364396Dlkg is a corrected resul t. Previous result was 186 K/CU MM on 01/20 at 1201 CDT Family Service Aide ID - [id number], [id number] 12:00:00 Test Item Value Reference Range Interpretation Comments CALCIUM IONIZED (BEAKER) (test 0.96 mmol/L 1.12-1.27 L code = 698) PH, BLOOD (BEAKER) (test code = 7.34 1810) SODIUM NA-STAT [id number] 11:59:00 Test Item Value Reference Range Interpretation Comments SODIUM (BEAKER) (test code = 381) 135 meq/L 136-145 L Only if arterial line present.POTASSIUM-STAT [id number] 11:59:00 Test Item Value Reference Range Interpretation Comments POTASSIUM (BEAKER) (test code = 4.4 meq/L 3.6-5.5 379) Only if arterial line present.BLOOD GAS, [id number] 11:59:00 Test Item Value Reference Range Interpretation [...] 40.0 % Only if arterial line present.GLUCOSE-STAT [id number] 11:59:00 Test Item Value Reference Range Interpretation Comments GLUCOSE RANDOM (BEAKER) (test code 170 mg/dL 70-110 H = 652) Only if arterial line present.HGB/HCT (H&H) - STAT [id number] 11:59:00 Test Item Value Reference Range Interpretation Comments HEMOGLOBIN (BEAKER) (test code = 7.3 g/dL 12.0-15.0 L 410) HEMATOCRIT (BEAKER) (test code = 21.0 % 36.0-45.0 L 411) Only if arterial line present.SARS-COV2/RT-PCR ([facility])2020-01-20 23:28:00 Test Item Value Reference Range Interpretation Comments SARS-COV2/RT-PCR (test code Negative Not Detected, Negative, = [id number]) See external report for linked test SARS-COV-[address] [facility] (test code = 2509459) Negative results do not preclude SARS-CoV-2 infection [...] of the Act.Fact Sheet for Healthcare Pro viders:https://www.Thoora/Documents/Xpert%20Xpress%20SARS%20CoV-2/Fact%20Sh eets/3023802%62MRYF-VXE-8%20HEALTHCARE%20PROVIDERS%20FACT%20SHEET.pdfFact Sheet for Healthcare Patients:https://www.Cloud.CM/Documents/Xpert%20Xpress%20SARS%20CoV-2/Fact%20Sheets/3023801%20SARS-COV -2%20PATIENT%20FACT%20SHEET.pdfPerforming Laboratory:[address], [place] [address]ZNFXYJDEZDCGI METABOLIC [id number] 22:27:00 Test Item Value Reference Range Interpretation [...] S NOT APPLICABLE FOR DIALYSIS PATIEN TS. Family Service Aide ID - [id number] 22:06:00 Test Item Value Reference Range Interpretation Comments PARTIAL THROMBOPLASTIN TIME 28.4 seconds 22.5-36.0 (BEAKER) (test code = 760) PROTHROMBIN [id number] 22:05:00 Test Item Value Reference Range Interpretation [...] is 2.5-3.5 for patients wiht mechanical heart valves.CBC W/PLT COUNT & AUTO [id number] 21:57:00 Test Item Value Reference Range Interpretation [...] (test code = 2801) CT, CHEST, WITHOUT [id number] 20:20:00Dialysis lease assess for covid- pending kidney [...] of the coronary arteries, aorta and great vesselsarising from the arch. Mediastinum: No significant findings. Lymph Nodes: No adenopathy in the mediastinum or pascual. Skeleton: No acute abnormality. IMPRESSION: Dependent groundglass opacity in the right lower lobe probably reflects atelectasis though pneumonitis, including the possibility of viral infection, should be excluded clinically. If of further clinical concern a repeat, prone CT chest can beconsidered. Cardiomegaly. Signed: Juaquin Hook MDReport Verified Date/Time: 01/20/2020 20:20:02 Elec tronically signed by: JUAQUIN HOOK M.D. on 01/20/2020 08:20 PMBODY FLUID CELL COUNT WITH [id number] 20:12:00 Test Item Value Reference Range Interpretation [...] no knowledge about it.SPUTUM CULTURE + GRAM [id number] 15:06:00 Test Item Value Reference Range Interpretation Comments CULTURE (BEAKER) 3+ Normal respiratory (test code = 1095) dawna present GRAM STAIN RESULT <1+ WBCs (BEAKER) (test code = 1123) GRAM STAIN RESULT 0-5 epithelial cells (BEAKER) (test code = 63047) GRAM STAIN RESULT <1+ gram variable (BEAKER) (test code coccobacilli = 84037) POCT-GLUCOSE [id number] 08:09:00 Test Item Value Reference Range Interpretation Comments POC-GLUCOSE METER 157 mg/dL 70-110 H : TESTED A T [facility] 6720 (BEAKER) (test code = [facility], 1538) [address]: Family Service Aide/Techni martita ID = [id number] for WILTON HERNANDEZ BASIC METABOLIC [id number] 06:58:00 Test Item Value Reference Range Interpretation [...] NOT APPLICABLE FOR DIALYSIS PATIEN TS. POCT-GLUCOSE [id number] 21:48:00 Test Item Value Reference Range Interpretation Comments POC-GLUCOSE METER 121 mg/dL 70-110 H : TESTED A T [facility] 6720 (BEAKER) (test code = [facility], 1538) [address]: Family Service Aide/Techni martita ID = [id number] for PAIGE PATEL BASIC METABOLIC [id number] 17:55:00 Test Item Value Reference Range Interpretation [...] S NOT APPLICABLE FOR DIALYSIS PATIEN TS. [id number] 17:50:00 Test Item Value Reference Range Interpretation Comments MAGNESIUM (BEAKER) (test code = 2.2 mg/dL 1.6-2.6 627) B-TYPE NATRIURETIC FACTOR (BNP)2019-05-17 17:34:00 Test Item Value Reference Range Interpretation Comments B-TYPE NATRIURETIC PEPTIDE (BEAKER) 211 pg/mL 0-100 H (test code = 700) TROPONIN [id number] 17:34:00 Test Item Value Reference Range Interpretation [...] failure, acidosis, acute neurological disease, and persistent tachyarrhythmia.PT/[id number] 17:11:00 Test Item Value Reference Range Interpretation [...] is 2.5-3.5 for patients wiht mechanical heart valves.RAD, CHEST, 1 VIEW, NON [id number] 17:11:00Dialysis 05/23Reason for exam:->HYPERTENSIONReason for exam:- >COUGHReason for exam:->HEADACHEIs the patient ?->NoFINAL REPORT TECHNIQUE: Single view of the chest. COMPARISON: 08/03/2018 FINDINGS: The cardiac silhouette is enlarged. Mediastinum is unremarkable. Lungs are clear. No acute skeletal abnormality. Soft tissues appear unremarkable. IMPRESSION: No acute cardiopulmonary disease. Signed: Joel Feng MDReport Verified Date/Time: 05/17/2019 17:11:18 Reading Location: [facility] Radiology Reading Room CT, BRAIN, WITHOUT [id number] 17:07:00Dialysis 05/[address], BRAIN, WITHOUT IV CONTRAST [...] examination is recommended for further characterization. Signed: Ember Browning Verified Date/Time: 05/17/2019 17:07:10 CBC W/PLT COUNT & AUTO [id number] 17:02:00 Test Item Value Reference Range Interpretation [...] (BEAKER) (test code = 2801) BASIC METABOLIC [id number] 16:09:00 Test Item Value Reference Range Interpretation [...] APPLICABLE FOR DIALYSIS PATIEN TS. HEPATIC FUNCTION [id number] 16:01:00 Test Item Value Reference Range Interpretation [...] code = 16 U/L 6-55 347) PROTHROMBIN TIME/[id number] 15:47:00 Test Item Value Reference Range Interpretation [...] is 2.5-3.5 for patients wiht mechanical heart valves.CBC W/PLT COUNT & AUTO [id number] 15:37:00 Test Item Value Reference Range Interpretation [...] (BEAKER) (test code = 2801) CT, ABDOMEN, [id number] 17:50:00Dialysis 05/23 Liver mass protocol. Patient is on peritoneal dialysis nightly. Liver mass protocol. Patient is on peritoneal dialysis nightly.FINAL REPORT CT [...] Hepatosplenomegaly. Stable enhancing foci in liver. Atrophic [place] kidneys. Small amount of ascites. Signed: Adilia Hood MDReportVerified Date/Time: 03/16/2019 17:50:59 Reading Location: 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 Check repeat EEGDate(s) of EE11/03/2018 DATE OF REPORT:11/03/2018 ACC:[id number] EEG Number: [id number] Test Location: Inpatient ICU Start time:0957 am Stop time:1027 am ICD-10: R56.9 Unspecified Convulsions CPT Code: 19564 HISTORY: 48 y/o F with h/o status epilepticus. MEDICATION THAT COULD AFFECT EEG: Levetiracetam, Gabapentin TECHNICAL SUMMARY: This is a digital video-EEG recorded with 32 input channels reviewed withbipolar and referential montages using the modified combinatorial system nomenclature. DESCRIPTION OF RECORD: During the maximally alert state a 8-9 Hz posterior dominant rhythm was seen that was symmetric, reactive to eye opening and well regulated. More anteriorly, low voltage frontocentral beta pred ominated. Drowsiness was characterized by alpha attenuation and [...] not exclude the possibility of epilepsy. It theclinical suspicion of epilepsy remains, consider additional EEG recordings capturing sleep state. Mauri Thompson MD Neurophysiology Fellow I have reviewed the electroencephalogram and this report and agree with its interpretation. Mayda Metcalf MD Neurophysiology Attending [facility], MULTI, PHARM, [id number] 13:17:00 Dialysis 05/23FINAL REPORT PROCEDURE: MYOCARDIAL PERFUSION SPECT IMAGING (, pravastatin 2-DayStress/Rest)CPT CODE: 38981 INDICATION: Renal transplant evaluation CARDIOVASCULAR PROFILE:CAD History: NoneSymptoms: NoneRisk Factors: Diabetes, hypertension, obesity, hyperlipidemiaBMI: 32.4 800, 1917 ,Medications: None STRESS PROTOCOL:Pharmacologic stress was achieved with a 10- second intravenous infusion of Regadenoson 0.4 mg. The radiopharmaceutical was administered 30 seconds after the start of the Regadenoson infusion. IMAGING PROTOCOL:30.3 mCi of Tc-99m sestamibi was injected intravenously atpeak stress, and gated SPECT images were obtained. Then on a separate day, 32.5 mCi of Tc-99m sestamibi was injected intravenously at rest, and non-gated SPECT images were obtained. Image quality is good. REST FINDINGS:HR: 61/minBP: 132/72 mmHgPrelim. EKG: Normal sinus rhythm, prolonged QT.Perfusion: There is a moderate severity decreased anterior wall intensity.LV Volume: Normal.RV Volume: Normal. STRESS FINDINGS:HR: 76/min (44% of MPHR)BP: 134/72 mmHgPrelim. EKG: No ischemic changes.Symptoms: None(treatment not required).Perfusion: There is a moderate severity decreased anterior wall intensity.Wall Motion: Normal (LVEF 58%).LV Volume: Not significantly changed from rest. IMPRESSION:1. Probably normal study.2. Probably normal myocardial perfusion. The decreased anterior wall intensity is most consistent with breast attenuation artifact..3. Normal stress LVEF.4. Normal extracardiac tracer distribution.5. The prior study dated 06/17/2013 reported normal study with normal myocardial perfusion. Signed: Destinee Rodrigueseport Verified Date/Time: 10/19/2018 13:17:31 Reading Location: [place] [id number] Reading Room ALPHA FETOPROTEIN (AFP), TUMOR [id number] 14:16:00 Test Item Value Reference Range Interpretation Comments ALPHA-FETOPROTEIN (BEAKER) (test 2.0 ng/mL <10.0 code = 1094) BASIC METABOLIC [id number] 14:03:00 Test Item Value Reference Range Interpretation [...] APPLICABLE FOR DIALYSIS PATIEN TS. HEPATIC FUNCTION [id number] 14:03:00 Test Item Value Reference Range Interpretation [...] L 347) CBC W/PLT COUNT & AUTO [id number] 13:26:00 Test Item Value Reference Range Interpretation [...] (BEAKER) (test code = 2801) CT, ABDOMEN, [id number] 09:51:00Dialysis 05/23FINAL REPORT ABDOMINAL CT DATED 09/28/2018 COMPARISON: October 29, 2017 CLINICAL INF ORMATION: triple phase liver protocol, liver lesions, abnormal [...] x 11.8 cm. 3 vague early enhancing fociare seen in the right hepatic dome measuring up to 1.4 cm, previously 1.5 cm, in diameter. A 1.4 X 1.8 cm, previously 1.6 x 1.7 cm, early enhancing focus is seen in the segment 4B of the liver. A stable 1.1 cm enhancing focus is seen in inferior right hepatic lobe. Delayed washout is seen in the lesions in the right hepatic dome lesion and in the segment to 4B of the liver. The splenic, superior mesenteric, portal, and hepatic veins are patent. Main portal vein measures 1.5 cm diameter. Gallbladder is contracted. No gallstone or biliary dilatation is noted. Pancreas and adrenals are unremarkable. Both kidneys are atrophic consistent medical renal disease. No hydronephrosis, solid or cystic mass isseen in either kidney. Diverticular disease is seen in the large bowel without diverticulitis. Smallbowel is normal in caliber. Appendix is not visualized. Trace amount of free fluid is seen in the abdomen and pelvis. IMPRESSION: 1. Hepatosplenomegaly.2. Stable early enhancing foci in the liver. Someof the hepatic lesions demonstrate delayed washout.3. Diverticulosis without diverticulitis.4. Renaldisease.5. Trace ascites. Signed: Catrachita Cabral Verified Date/Time: 09/28/2018 09:51:23 Reading Location: [facility] B1 C013Y CT Body Reading Room US CULTURE + [id number] 20:39:00 Test Item Value Reference Range Interpretation Comments CULTURE (BEAKER) (test No fungus isolated in code = 1095) 28 days FUNGUS SMEAR (BEAKER) No fungi seen (test code = 1406) MISCELLANEOUS LAB [id number] 08:22:00 Test Item Value Reference Range Interpretation Comments SCAN RESULT (test code = 5842928) POCT-GLUCOSE [id number] 09:14:00 Test Item Value Reference Range Interpretation Comments POC-GLUCOSE METER 191 mg/dL 70-[address] [facility] 6720 (BEAKER) (test code = [place] 1538) [address] COMPREHENSIVE METABOLIC [id number] 04:45:00 Test Item Value Reference Range Interpretation [...] S NOT APPLICABLE FOR DIALYSIS PATIEN TS. [id number] 04:35:00 Test Item Value Reference Range Interpretation Comments PHOSPHORUS (BEAKER) (test code = 7.3 mg/dL 2.3-4.7 H 604) CBC W/PLT COUNT & AUTO [id number] 04:06:00 Test Item Value Reference Range Interpretation [...] PERCENT (BEAKER) (test code = 2801) POCT-GLUCOSE [id number] 21:10:00 Test Item Value Reference Range Interpretation Comments POC-GLUCOSE METER 165 mg/dL 70-110 H TESTED AT [place] [address] ([facility]) (test code = [facility] 1538) [address] POCT-GLUCOSE [id number] 17:48:00 Test Item Value Reference Range Interpretation Comments POC-GLUCOSE METER 141 mg/dL 70-110 H TESTED AT [place] [address] ([facility]) (test code = [facility] 1538) [address] POCT-GLUCOSE [id number] 12:34:00 Test Item Value Reference Range Interpretation Comments POC-GLUCOSE METER 219 mg/dL 70-110 H TEST[facility] AT [place] [address] [facility] (test code = [facility] 1538) [address] POCT-GLUCOSE [id number] 09:39:00 Test Item Value Reference Range Interpretation Comments POC-GLUCOSE METER 202 mg/dL 70-110 H TESTED AT [place] [address] ([facility]) (test code = [facility] 1538) [address] COMPREHENSIVE METABOLIC [id number] 07:29:00 Test Item Value Reference Range Interpretation [...] PATIEN TS. CBC W/PLT COUNT & AUTO [id number] 06:36:00 Test Item Value Reference Range Interpretation [...] PERCENT (BEAKER) (test code = 2801) POCT-GLUCOSE [id number] 00:47:00 Test Item Value Reference Range Interpretation Comments POC-GLUCOSE METER 249 mg/dL 70-[address] [facility] 6720 ([facility] 1538) [address] POCT-GLUCOSE [id number] 17:56:00 Test Item Value Reference Range Interpretation Comments POC-GLUCOSE METER 153 mg/dL 70-[address] [facility] 6720 ([facility]) (test code = ROSASDC Yajaira [facility] 1538) [address] POCT-GLUCOSE [id number] 12:26:00 Test Item Value Reference Range Interpretation Comments POC-GLUCOSE METER 135 mg/dL 70-[address] [facility] 6720 ([facility]) (test code = [place] 1538) [address] ANTI-NUCLEAR ANTIBODY (CECI)2018-08-04 11:44:00 Test Item Value Reference Range Interpretation Comments ANTI-NUCLEAR ANTIBODY (CECI) (BEAKER) Negative Negative (test code = 418) Test performed by IFA method.CECI TITER AND [id number] 11:44:00 Test Item Value Reference Range Interpretation Comments CECI TITER (BEAKER) :160 (test code = 1541) CECI PATTERN (BEAKER) Anti-mitotic spindle (test code = 1781) antibody BLOOD [id number] 08:00:00 Test Item Value Reference Range Interpretation Comments CULTURE (BEAKER) (test No growth in 5 days code = 1095) BLOOD [id number] 08:00:00 Test Item Value Reference Range Interpretation Comments CULTURE (BEAKER) (test No growth in 5 days code = 1095) POCT-GLUCOSE [id number] 06:06:00 Test Item Value Reference Range Interpretation Comments POC-GLUCOSE METER 189 mg/dL 70-[address] [facility] 67 ([facility]) (test code = [place] 1538) [address] COMPREHENSIVE METABOLIC [id number] 05:36:00 Test Item Value Reference Range Interpretation [...] APPLICABLE FOR DIALYSIS PATIEN TS. BLOOD GAS, [id number] 05:17:00 Test Item Value Reference Range Interpretation [...] (test code = 1819) 21.0 % POCT-GLUCOSE [id number] 01:07:00 Test Item Value Reference Range Interpretation Comments POC-GLUCOSE METER 175 mg/dL 70-[address] [facility] 6720 (BEAKER) (test code = [place] 1538) [address] POCT-GLUCOSE [id number] 16:56:00 Test Item Value Reference Range Interpretation Comments POC-GLUCOSE METER 157 mg/dL 70-[address] [facility] 6720 (BEAKER) (test code = [place] 1538) [address] EEG MONITORING WITH VIDEO RECORDING EACH 24 [id number] 16:36:00 Neurophysiology Electroencephalogram Report DATE OF REPORT: DATE \\@ "M/d/yy" 08/03/18 Date(s) of Study: 08/03/2018 ACC: [id number] Start time: 1133 hrs Stop time: 0834 hrs ICD-10: R41.82 Altered Mental Status CPT Code: 42248 EEG: Video monitoring/interpretation (24 hours) HISTORY (per opto mechanical technician note): 48 yo female with h/o ESRD s/p kidney transplant in 2013 with subsequent failure on peritoneal dialysis (missed one session), DM, HTN who presents with altered mental status and confusion for2 days. MEDICATIONS THAT COULD AFFECT EEG (in past 24 hours): lorazepam, levetiracetam TECHNICAL SUMMARY: This is a digital video EEG recorded with 32 input channels reviewed with bipolar and referential montages using the modified combinatorial system nomenclature. Descriptors used for the background, any periodic patterns, and any sporadic discharges per ACNS 2012 Standardized ICU EEG Nomenclature.DESCRIPTION OF RECORD: For the majority of this recording, this EEG demonstrated a pattern of mixed frequency background slowing, disorganization and spindle frequencies anteriorly. There were occasional monomorphic rhythmic 1-1.5 Hz patterns seen. During maximal alertness, no posterior dominant rhythm was seen. The background comprised of 1- 4 Hz and 5-7 Hz activities with no anterior-posterior gradient. EVENTS: None HYPERVENTILATION: Hyperventilation was not performed. PHOTIC STIMULATION: Photic stimulation was not done. ELECTROCARDIOGRAM EVENTS: Regular rate of 54 beats per minute IMPRESSION: Abnormal cEEG due to continuous moderate slowing. There are no electrographic seizures or epileptiform discharges. Azul Benton MD Clinical Neurophysiology-Epilepsy Fellow [facility] Neurophysiology Service Iwona Crane M.D., FACNS, FAAN, FAES Professor of Neurology, [facility] [employer] Director,[facility] Comprehensive Epilepsy Center Head, Federico Bang Neurophysiology Lab POCT-GLUCOSE [id number] 11:57:00 Test Item Value Reference Range Interpretation Comments POC-GLUCOSE METER 86 mg/dL 70-[address] [facility] 67 ([place]RELLA) (test code = [place] [address] 1538) POCT-GLUCOSE [id number] 06:26:00 Test Item Value Reference Range Interpretation Comments POC-GLUCOSE METER 159 mg/dL 70-[address] [facility] 6720 (BEAKER) (test code = [place] 1538) [address] COMPREHENSIVE METABOLIC [id number] 05:41:00 Test Item Value Reference Range Interpretation [...] PATIEN TS. RAD, CHEST, 1 VIEW, NON [id number] 05:27:00Dialysis 05/23Reason for exam:- >intubated patientShould this be performed at the bedside?->YesFINAL REPORT Chest one view. Clinical history: intubated patient Comparison: Chest radiograph 08/02/2018, 3:18 PM Technique: A single frontal view of the chest was obtained. Findings:Endotracheal and feeding tubes are in satisfactory positions.The cardiomediastinal contours are stable. There is a small left pleural effusion. There is a left lower lobe opacity which may represent pneumonia and/or atelectasis. There is no pneumothorax. Signed: Aleks Jamison MDReport Verified Date/Time: 08/03/2018 05:27:43 Reading Location: [facility] C013Y CT Body Reading Room CBC W/PLT COUNT & AUTO [id number] 05:09:00 Test Item Value Reference Range Interpretation [...] (BEAKER) (test code = 2801) BLOOD GAS, [id number] 05:06:00 Test Item Value Reference Range Interpretation [...] (test code = 1819) 35.0 % POCT-GLUCOSE [id number] 00:15:00 Test Item Value Reference Range Interpretation Comments POC-GLUCOSE METER 153 mg/dL 70-[address] [facility] 6720 ([facility] (test code = [facility] 1538) [address] POCT-GLUCOSE [id number] 20:01:00 Test Item Value Reference Range Interpretation Comments POC-GLUCOSE METER 84 mg/dL 70-[address] [facility] 6720 ([facility]) (test code = [facility] [address] 1538) POCT-GLUCOSE [id number] 17:41:00 Test Item Value Reference Range Interpretation Comments POC-GLUCOSE METER 89 mg/dL 70-[address] [facility] 6720 ([place]) (test code = [place] [address] 1538) RAD, ABDOMEN/KUB, 1 VIEW [id number] 16:36:00Dialysis 05/23Reason for exam:- >NG tube placement evaluationFINAL REPORT AP abdomen HISTORY: Nasogastric tube COMPARISON: 08/16/2016 IMPRESSION:Lower abdomen excluded from view. Nasogastric tube in satisfactory position. Signed: Osbaldo Ruelas Verified Date/Time: 08/02/2018 16:36:16 Reading Location: [address] Transitional Reading Room RAD, CHEST, 1 VIEW, NON [id number] 16:36:00Dialysis 05/23Reason for exam:->ET tube placement assessmentShould this be performed at the bedside?->YesFINAL REPORT AP chest HISTORY: Endotracheal tube. COMPARISON: 08/02/2017. IMPRESSION: Endotracheal tube present. Tip projects 2 cm above the level of the edison. Cardiomegaly. Grossly clear lungs. Signed: Osbaldo Ruelas Verified Date/Time: 08/02/2018 16:36:46 Reading Location: [address] Transitional Reading Room C. DIFFICILE GDH TOXIN 2018-08-02 15:59:00 Test Item Value Reference Range Interpretation Comments CDT TOXIN (test code Negative Negative = [id number]) CDT GDH ANTIGEN (test Negative Negative No ind ication of code = 7951321194) Clostridi um difficile infection and n o colonization. Discontinue ent vandana isolation and t herapy. Testing performed by [employer] Number Rapid Cassette Assay. For GDH, published sensitivity of the assay is 98.7% compared to cytotoxicity testing. For Toxin AB, published sensitivity is 87.8% and specificity 99.4% compared to cytotoxicity testing.Verification of kit performance was done by the [facility] MicrobiologyLab prior to clinical use.EEG MONITORING WITH VIDEO RECORDING EACH 24 HOURS 2018-08-02 15:34:00[facility] EEG REPORT DATE OF TEST: 08/01/2018;08/02/2018 DATE OF REPORT: 08/02/2018 ACC: [id number] Start time: 08/01/18 at 15:33 Stop time: 08/02/18 at 11:33 ICD-10: 18223 CPT Code: R41.82 HIS TORY: 48 yo female with h/o ESRD s/p kidney transplant in 2013 with subsequent failure on peritonealdialysis (missed one session), DM, HTN who presents with altered mental status and confusion for 2 days. MEDICATIONS: labetolol, insulin, lorazepam, levetiracetam TECHNICAL SUMMARY: This is a digital video EEG recorded using the standard international 10-20 system for placement of 22 electrodes, including an EKG lead. DESCRIPTION OF RECORD: For the entirety of this recording, this EEG demonstrates a pattern that resembles N2 sleep, with mixed frequency background slowing, disorganization and spindlefrequencies anteriorly. There are occasional 1-2s long suppressive [...] discharges. Laci Park MD Clinical Neurophysiology fellow Chiqui Wolf MD PhD Attending Neurophysiologist/Epileptologist POCT- GLUCOSE [id number] 12:58:00 Test Item Value Reference Range Interpretation Comments POC-GLUCOSE METER 88 mg/dL 70-[address] [facility] 6720 (BEAKER) (test code = [place] [address] 1538) BODY FLUID CULTURE + GRAM [id number] 11:52:00 Test Item Value Reference Range Interpretation Comments CULTURE (BEAKER) (test code No growth = 1095) GRAM STAIN RESULT (BEAKER) <1+ WBCs (test code = 1123) GRAM STAIN RESULT (BEAKER) No organisms seen (test code = 28029) CSF CULTURE + GRAM [id number] 11:52:00 Test Item Value Reference Range Interpretation Comments CULTURE (BEAKER) (test code No growth = 1095) GRAM STAIN RESULT (BEAKER) <1+ WBCs (test code = 1123) GRAM STAIN RESULT (BEAKER) No organisms seen (test code = 33921) POCT-GLUCOSE [id number] 06:22:00 Test Item Value Reference Range Interpretation Comments POC-GLUCOSE METER 99 mg/dL 70-[address] [facility] 6720 (BEAKER) (test code = [place] [address] 1538) RAD, CHEST, 1 VIEW, NON [id number] 05:38:00Dialysis 05/23Reason for exam:- >intubated patientShould this be performed at the bedside?->YesFINAL REPORT Chest one view. Clinical history: intubated patient Comparison: Chest radiograph 08/01/2018. Technique: A single frontal view of the chest was obtained. Findings:Endotracheal and feeding tubes are in satisfactory positions. There is a small left pleural effusion. There is a retrocardiac opacity which represent atelectasis and/or pneumonia. There is no pneumothorax. There is central pulmonary vascular congestion. There is stable enlargement of the cardiac silhouette.Signed: Aleks Jamison MDReport Verified Date/Time: 08/02/2018 05:38:18 Reading Location: [facility] C013Y CT Body Reading Room [id number] 05:12:00 Test Item Value Reference Range Interpretation [...] 20-55 (test code = 2590) BLOOD GAS, [id number] 04:37:00 Test Item Value Reference Range Interpretation [...] code = 1819) 50.0 % COMPREHENSIVE METABOLIC [id number] 04:24:00 Test Item Value Reference Range Interpretation [...] S NOT APPLICABLE FOR DIALYSIS PATIEN TS. [id number] 04:20:00 Test Item Value Reference Range Interpretation Comments PHOSPHORUS (BEAKER) 8.3 mg/dL 2.3-4.7 H Specimen slightly (test code = 604) hemolyzed CBC W/PLT COUNT & AUTO [id number] 04:02:00 Test Item Value Reference Range Interpretation [...] PERCENT (BEAKER) (test code = 2801) POCT-GLUCOSE [id number] 00:22:00 Test Item Value Reference Range Interpretation Comments POC-GLUCOSE METER 79 mg/dL 70-[address] [facility] 6720 (BEAKER) (test code = ROSASSHERRY Yajaira [facility] [address] 1538) BASIC METABOLIC [id number] 19:07:00 Test Item Value Reference Range Interpretation [...] NOT APPLICABLE FOR DIALYSIS PATIEN TS. POCT-GLUCOSE [id number] 18:40:00 Test Item Value Reference Range Interpretation Comments POC-GLUCOSE METER 97 mg/dL 70-[address] [facility] 67 ([facility]) (test code = [place] [facility] [address] 1538) POCT-GLUCOSE [id number] 15:14:00 Test Item Value Reference Range Interpretation Comments POC-GLUCOSE METER 151 mg/dL 70-110 H TESTED AT [place] [id number] ([facility]) (test code = [place] [facility] 1538) [address] EEG MONITORING WITH VIDEO RECORDING EACH 24 [id number] 14:43:00Dialysis 05/23For STAT EEG- after 5 PM weekdays, weekends and holidays, page the on-call EEG TechReason for exam:->Subclinical szCH[facility] REPORT DATE OF TEST: 07/31/2018;08/01/2018 DATE OF REPORT: 08/01/2018 ACC: [id number] EE- [id number] Start time: 07/31/18 at 14:55 Stop time: 08/01/18 at 03:53 ICD-10: 59034 CPT Code: R41.82 HISTORY: 48 yo female [...] Hz activity with intermixed 4-6 Hz activity. There is also presence of intermittent superimposed generalized 14-20 Hz activity throughout. EVENTS: None HYPERVENTILATION: Hyperventilation was not performed. PHOTIC STIMULATION: Photic stimulation was not done. ELECTROCARDIOGRAM EVENTS: Regular rate and rhythm IMPRESSION: Abnormal EEG due to: 1. Generalized periodic discharges with triphasic morphology during initial part of the recording. 2. Moderategeneralized slowing of background rhythm. CLINICAL CORRELATION: The generalized periodic discharges are a nonspecific marker of diffuse cortical irritability. Moderate slowing of background rhythm is consistent with moderate degree of encephalopathy. After discontinuation of cefepime, intubation and ad ministration of lorazepam,levetiracetam the background has improved from baseline study. Laci Park MD Clinical Neurophysiology fellow Chiqui Wolf MD PhD Attending Neurophysiologist/Epileptologist BLOOD GAS, [id number] 12:27:00 Test Item Value Reference Range Interpretation [...] (test code = 1819) 50.0 % POCT-GLUCOSE [id number] 11:51:00 Test Item Value Reference Range Interpretation Comments POC-GLUCOSE METER 94 mg/dL 70-[address] [facility] 6720 (BEAKER) (test code = [place] [facility] [address] 1538) MR, BRAIN, WITHOUT [id number] 10:58:00Dialysis 05/23Need an MRV also pleaseReason for exam:->Ischemic Stroke EvaluationFINAL REPORT MR, BRAIN, WITHOUT CONTRAST, MR, MRA, NECK, WITHOUT IV CONTRAST, MR, MRA, BRAIN, WITHOUT CONTRAST INDICATION: Confusion/delirium, altered LOC, unexplainedDecreased alertnessIschemic Stroke Evaluation TECHNIQUE: Multiplanar, multisequence MR images of the brain. 3-D time of flight MRA of the cranial and cervical circulation. 2-D time of flight MRA of the neck. 3D MIP angiographic post-processing was performed. Stenosis evaluation utilized NASCET criteria. COMPARISON:CT brain July 30, 2018 FINDINGS: MRI BRAIN: Brain parenchyma is normal in morphology. Midline structures are normally developed. No restricted diffusion to suggest recent ischemic insult. No abnormal susceptibility. Scattered T2/FLAIR hyperintense foci within the periventricular and subcortical whitematter are nonspecific, however, statistically represent chronic microvascular ischemic changes. No hydrocephalus. Orbits are within normal limits. No obstructive paranasal sinus disease. Calvarium andskull base demonstrate marrow signal within normal limits for age without focal lesion. Additional findings: Nasogastric tube. MRA BRAIN:Internal carotid arteries: Normal flow related enhancement without flow-limiting stenosisMiddle cerebral arteries: Normal flow related enhancement within the bilateral MCA M1-M2 segments without flow limiting stenosis Anterior cerebral arteries: Normal flow- related enhancement within the left JESUS MANUEL A1-A2 and right A2 segments without flow limiting stenosis. Right A1 segment is hypoplastic versus absent.Basilar system: Normal flow-related enhancement within the bilateral V4 segments and the basilar artery without flow-limiting stenosis Posterior cerebral arteries: No rmal flow-related enhancement within the bilateral MANAGER WATER WASTEWATER P1-P2 segments without flow-limiting stenosis. Robust left posterior communicating artery with functional type MANAGER WATER WASTEWATER circulation on the left. Right posterior commuting segment is hypoplastic.Additional findings: None. MRA NECK:Common carotid ar teries: Unremarkable. Bifurcations: No flow-limiting stenosis. Cervical internal carotid arteries: No flow limiting stenosis.Vertebral arteries: Codominant. No origin or extracranial stenosis. IMPRESSION: No acute ischemia or parenchymal hemorrhage. No flow limiting stenosis in the major branch vessels of the cervical or cranial circulation. Signed: Patt Wright MDReport Verified Date/Time: 08/01/2018 10:58:44 Reading Location: [facility] C013V Neuro Reading Room , MRA, BRAIN, WITHOUT [id number] 10:58:00Dialysis lease add MRV as wellReason for exam:->Ischemic Stroke EvaluationFINAL REPORT MR, BRAIN, WITHOUT CONTRAST, MR, MRA, NECK, WITHOUT IV CONTRAST, MR, MRA, BRAIN, WITHOUT CONTRAST INDICATION: Confusion/delirium, altered LOC, unexplainedDecreased alertnessIschemic Stroke Evaluation TECHNIQUE: Multiplanar, multisequence MR images of the brain. 3-D time of flight MRA of the cranial and cervical circulation. 2-D time of flight MRA of the neck. 3D MIP angiographic post-processing was performed. Stenosis evaluation utilized NASCET criteria. COMPARISON:CT brain July 30, 2018 FINDINGS: MRI BRAIN: Brain parenchyma is normal in morphology. Midline structures are normally developed. No restricted diffusion to suggest recent ischemic insult. No abnormalsusceptibility. Scattered T2/FLAIR hyperintense foci within the periventricular and subcortical white matter are nonspecific, however, statistically represent chronic microvascular ischemic changes. Nohydrocephalus. Orbits are within normal limits. No obstructive paranasal sinus disease. Calvarium and skull base demonstrate marrow signal within normal limits for age without focal lesion. Additional findings: Nasogastric tube. MRA BRAIN:Internal carotid arteries: Normal flow related enhancement without flow-limiting stenosisMiddle cerebral arteries: Normal flow related enhancement within the bilateral MCA M1-M2 segments without flow limiting stenosis Anterior cerebral arteries: Normal flow-relatedenhancement within the left JESUS MANUEL A1-A2 and right A2 segments without flow limiting stenosis. Right [id number] is hypoplastic versus absent.Basilar system: Normal flow-related enhancement within the bilateral V4 segments and the basilar artery without flow-limiting stenosis Posterior cerebral arteries: N ormal flow-related enhancement within the bilateral MANAGER WATER WASTEWATER P1-P2 segments without flow-limiting stenosis. Robust left posterior communicating artery with functional type MANAGER WATER WASTEWATER circulation on the left.Right posterior commuting segment is hypoplastic.Additional findings: None. MRA NECK:Common carotid a rteries: Unremarkable. Bifurcations: No flow-limiting stenosis. Cervical internal carotid arteries: No flow limiting stenosis.Vertebral arteries: Codominant. No origin or extracranial stenosis. IMPRESSION: No acute ischemia or parenchymal hemorrhage. No flow limiting stenosis in the major branch vessels of the cervical or cranial circulation. Signed: Patt Wright MDReport Verified Date/Time: 08/01/2018 10:58:44 Reading Location: [facility] C013 Neuro Reading Room MR, MRA, NECK, WITHOUT IV [id number] 10:58:00Dialysis lease add MRV as wellReason for exam:->Ischemic Stroke EvaluationFINAL REPORT MR, BRAIN, WITHOUT CONTRAST, MR, MRA, NECK, WITHOUT IV CONTRAST, MR, MRA, BRAIN, WITHOUT CONTRAST INDICATION: Confusion/delirium, altered LOC, unexplainedDecreased alertnessIschemic Stroke Evaluation TECHNIQUE: Multiplanar, multisequence MR images of the brain. 3-D time of flight MRA of the cranial and cervical circulation. 2-D time of flight MRA of the neck. 3D MIP angiographic post-processing was performed. Stenosis evaluation utilized NASCET criteria. COMPARISON:CT brain July 30, 2018 FINDINGS: MRI BRAIN: Brain parenchyma is normal in morphology. Midline structures are normally developed. No restricted diffusion to suggest recent ischemic insult. No abnormal s usceptibility. Scattered T2/FLAIR hyperintense foci within the periventricular and subcortical whitematter are nonspecific, however, statistically represent chronic microvascular ischemic changes. No hydrocephalus. Orbits are within normal limits. No obstructive paranasal sinus disease. Calvarium andskull base demonstrate marrow signal within normal limits for age without focal lesion. Additional findings: Nasogastric tube. MRA BRAIN:Internal carotid arteries: Normal flow related enhancement without flow-limiting stenosisMiddle cerebral arteries: Normal flow related enhancement within the bilateral MCA M1-M2 segments without flow limiting stenosis Anterior cerebral arteries: Normal flow- related enhancement within the left JESUS MANUEL A1-A2 and right A2 segments without flow limiting stenosis. Right A1 segment is hypoplastic versus absent.Basilar system: Normal flow-related enhancement within the bilateral V4 segments and the basilar artery without flow-limiting stenosis Posterior cerebral arteries: No rmal flow-related enhancement within the bilateral MANAGER WATER WASTEWATER P1-P2 segments without flow-limiting stenosis. Robust left posterior communicating artery with functional type MANAGER WATER WASTEWATER circulation on the left. Right posterior commuting segment is hypoplastic.Additional findings: None. MRA NECK:Common carotid ar teries: Unremarkable. Bifurcations: No flow-limiting stenosis. Cervical internal carotid arteries: No flow limiting stenosis.Vertebral arteries: Codominant. No origin or extracranial stenosis. IMPRESSION: No acute ischemia or parenchymal hemorrhage. No flow limiting stenosis in the major branch vessels of the cervical or cranial circulation. Signed: Patt Wright MDReport Verified Date/Time: 08/01/2018 10:58:44 Reading Location: [facility] C013V Neuro Reading Room REHENSIVE METABOLIC [id number] 06:44:00 Test Item Value Reference Range Interpretation [...] DIALYSIS PATIEN TS. HIV-1 ANTIGEN WITH HIV-1/2 [id number] 06:42:00 Test Item Value Reference Range Interpretation Comments HIV-1 ANTIGEN WITH HIV 1\\T\\2 Nonreactive Nonreactive ANTIBODY (2) (BEAKER) (test code = 2586) POCT-GLUCOSE [id number] 06:15:00 Test Item Value Reference Range Interpretation Comments POC-GLUCOSE METER 105 mg/dL 70-[address] [facility] 6720 (AKER) (test code = [place] 15[address]) [address] LACTIC ACID, [id number] 05:24:00 Test Item Value Reference Range Interpretation Comments LACTATE BLOOD VENOUS (2) (BEAKER) 1.6 mmol/L 0.5-2.2 (test code = 2872) CBC W/PLT COUNT & AUTO [id number] 05:06:00 Test Item Value Reference Range Interpretation [...] = 2801) RAD, CHEST, 1 VIEW, NON [id number] 03:48:00Dialysis 05/23Reason for exam:- >intubated patientShould this be performed at the bedside?->YesFINAL REPORT Chest one view. Clinical history: intubated patient Comparison: Chest radiograph 07/31/2018. Technique: A single frontal view [...] MDReport Verified Date/Time: 08/01/2018 03:48:28 Reading Location: [facility] B1 C013Y CT Body Reading Room POCT-GLUCOSE [id number] 03:21:00 Test Item Value Reference Range Interpretation Comments POC-GLUCOSE METER 98 mg/dL 70-[address] [facility] 6720 (BEAKER) (test code = [place] [facility] [address] 1538) RAD, CHEST, 1 VIEW, NON [id number] 23:12:00Dialysis 05/23Reason for exam:- >recently intubatedShould this be performed at the bedside?->YesFINAL REPORT History: Intubation. Comparison: 07/30/2018 Findings: A single viewof the chest is submitted. The examination is limited by low lung volumes and rotation to the left. The tip of an endotracheal tube is above the edison at the level of the inferior clavicular heads. Anenteric tube traverses examination to the upper abdomen. There is stable enlargement of the cardiac s ilhouette. Central pulmonary vascular congestion and bilateral interstitial and airspace opacities appear centered in the perihilar lungs and suggest pulmonary edema. More confluent opacity in the retrocardiac left lung may reflect some combination of atelectasis and edema but pneumonitis should be excluded clinically. There is no pneumothorax or acute bony abnormality. Signed: Juaquin Hook MDReportVerified Date/Time: 07/31/2018 23:12:11 Reading Location: [address] Reading Room VANCOMYCIN LEVEL, [id number] 19:07:00 Test Item Value Reference Range Interpretation Comments VANCOMYCIN RANDOM (BEAKER) (test 19.3 ug/mL code = 523) Reference Range: No NormalsPOCT-GLUCOSE [id number] 18:21:00 Test Item Value Reference Range Interpretation Comments POC-GLUCOSE METER 149 mg/dL 70-[address] [facility] 6720 (BEAKER) (test code = [place] 15[address]) [address] BLOOD GAS, [id number] 17:07:00 Test Item Value Reference Range Interpretation [...] = 1819) 60.0 % EEG AWAKE AND [id number] 16:14:00Dialysis 05/23Reason for exam:->[facility] EEG REPORT DATE OF TEST: 07/31/2018DATE OF REPORT: 07/31/2018 ACC: [id number]: [id number] time: 14:25Stop time: 14:48ICD-10: 21336VCI Code: R41.82 HISTORY: 48 yo female with [...] morphology which occur at a frequency of 2.5-3 Hz for the majority of the recording. This pattern also becomes more prominent with stimulation (SI-GPDs with triphasic morphology). No clinical correlate was noted during this activity. During brief periods without GPDs, the background consists of 1.5-3 Hz activity with intermixed 4-6 Hz activity. Stage 2 sleep architecture was not recorded.EVENTS: None HYPERVENTILATION: Hyperventilation was not performed.PHOTIC STIMULATION: Photic stimulation was not done. ELECTROCARDIOGRAM EVENTS: Regular rate and rhythm IMPRESSION: Abnormal EEG due to: 1. Generalized periodic discharges with triphasic morphology, stimulus induced (SI-GPDs with triphasic morphology) 2. Moderate generalized slowingof background rhythm. CLINICAL CORRELATION: The generalized periodic discharges are a nonspecific mar ker of acute cortical irritability. Moderate slowing of background rhythm is consistent with moderate degree of encephalopathy. According to the [place] criteria, the frequency of GPDs over 2.5 Hz meets criteria for nonconvulsive status epilepticus. Of note, this pattern has been reported in patientstaking cefepime, particularly those with renal dysfunction (Electrographic status epilepticus in thesetting of generalized periodic discharges with a triphasic can be seen with underlying metabolic toxic etiology (renal failure) and use of cefepime (MELI Napier., L[address] Melendez., Jaimie T. et al. Neuro[employer] (2019). [email or web address]). These findings were discussed with the neuro ICU consult team at approximately 3:30pm. This patient will be transitioned to continuous EEG monitoring for further evaluation. Laci Park MDClinical Neurophysiology fellow Reggie Manuel MD, [facility] Neurophysiologist/Epileptologist [id number] 14:43:00 Test Item Value Reference Range Interpretation Comments RPR SCREEN (BEAKER) (test code = Nonreactive Nonreactive 420) HSV 1/2 PCR, [id number] 14:25:00 Test Item Value Reference Range Interpretation [...] and its performance characteristics determined by the [facility] Pathology Department, Sectionof Molecular Pathology. It has not been cleared or approved by the U.S. Food and Drug Administration(FDA), as FDA approval is not required for clinical use of the test. Validation was done as requiredby the Clinical Laboratory Amendments of 1988.RESPIRATORY PANEL [id number] 13:38:00 Test Item Value Reference Range Interpretation [...] decisions. This sample was tested at the [facility] Molecular Diagnostics Laboratory using the [place] Respiratory Panel. It is FDA cleared and has been verified and approved by the [facility] Molecular Diagnostics Laboratory for clinical use on nasal swab specimens. It is not FDA-cleared for use on bronchial wash/lavage samples. However, for this sample type, validation was performed and test characteristics were determined and approved, by [facility] laboratory for clinical use under the Clinical Laboratory Improvement Amendments (CLIA) of 1988 requirements. Therefore, FDA clearance isnot required. This laboratory is CLIA-certified and [employer] ([employer])-accredited to perform high complexity testing.POCT-GLUCOSE [id number] 11:42:00 Test Item Value Reference Range Interpretation Comments POC-GLUCOSE METER 94 mg/dL 70-110 TESTED AT [place] [address] ([facility]) (test code = [facility] [address] 1538) POCT-GLUCOSE [id number] 10:10:00 Test Item Value Reference Range Interpretation Comments POC-GLUCOSE METER 94 mg/dL 70-110 TESTED AT [place] [address] ([facility]) (test code = [facility] [address] 1538) HEMOGLOBIN [id number] 10:10:00 Test Item Value Reference Range Interpretation Comments HEMOGLOBIN A1C (BEAKER) (test code = 5.6 % 4.3-6.1 368) BASIC METABOLIC [id number] 04:59:00 Test Item Value Reference Range Interpretation [...] APPLICABLE FOR DIALYSIS PATIEN TS. LACTIC ACID, [id number] 04:34:00 Test Item Value Reference Range Interpretation Comments LACTATE BLOOD VENOUS (2) (BEAKER) 1.8 mmol/L 0.5-2.2 (test code = 2872) CBC W/PLT COUNT & AUTO [id number] 04:24:00 Test Item Value Reference Range Interpretation [...] PERCENT (BEAKER) (test code = 2801) POCT-GLUCOSE [id number] 00:53:00 Test Item Value Reference Range Interpretation Comments POC-GLUCOSE METER 148 mg/dL 70-[address] [facility] 6720 (BEAKER) (test code = [place] 1538) [address] BODY FLUID CELL COUNT WITH [id number] 22:38:00 Test Item Value Reference Range Interpretation [...] Tube (test code = 2873) LACTIC ACID, [id number] 21:38:00 Test Item Value Reference Range Interpretation Comments LACTATE BLOOD VENOUS 1.7 mmol/L 0.5-2.2 Specime n slightly (2) (BEAKER) (test hemolyzed code = 681) LACTIC ACID, [id number] 21:38:00 Test Item Value Reference Range Interpretation Comments LACTATE BLOOD VENOUS 1.8 mmol/L 0.5-2.2 Specime n slightly (2) (BEAKER) (test hemolyzed code = 108) AMYLASE, BODY [id number] 20:29:00 Test Item Value Reference Range Interpretation Comments AMYLASE FLUID (BEAKER) (test code = 6 U/L 350) Absence of reference range indicates that normals have not been defined.Assay performance has not been validated for this type of specimen.RAPID INFLUENZA A&B [id number] 20:03:00 Test Item Value Reference Range Interpretation Comments RAPID INFLUENZA A AG (BEAKER) Negative Negative, Inconclusive (test code = 1622) RAPID INFLUENZA B AG (BEAKER) Negative Negative, Inconclusive (test code = 1623) [id number] 19:56:00 Test Item Value Reference Range Interpretation Comments PROCALCITONIN (BEAKER) (test code 1.58 ng/mL <0.05 H = 3036) SEPSIS RISK (ng/mL)Low: 0.05-0.50Intermediate: 0.51-2.00High: >=2.01LACTIC ACID, [id number] 18:29:00 Test Item Value Reference Range Interpretation Comments LACTATE BLOOD VENOUS (2) (BEAKER) 2.0 mmol/L 0.5-2.2 (test code = 2872) TSH/FREE T4 IF [id number] 18:28:00 Test Item Value Reference Range Interpretation Comments THYROID STIMULATING HORMONE 3.68 uIU/mL 0.35-4.94 (BEAKER) (test code = 772) RESPIRATORY PANEL [id number] 18:19:00 Test Item Value Reference Range Interpretation [...] decisions. This sample was tested at the [facility] Molecular Diagnostics Laboratory using the [employer] FilmArray Respiratory Panel. It is FDA cleared and has been verified and approved by the [facility] Molecular Diagnostics Laboratory for clinical use on nasal swab specimens. It is not FDA-cleared for use on bronchial wash/lavage samples. However, for this sample type, validation was performed and test characteristics were determined and approved, by [facility] for clinical use under the Clinical Laboratory Improvement Amendments (CLIA) of 1988 requirements. Therefore, FDA clearance isnot required. This laboratory is CLIA-certified and [employer] (CAP)-accredited to perform high complexity testing.BASIC [...] S NOT APPLICABLE FOR DIALYSIS PATIEN TS. [id number] 18:13:00 Test Item Value Reference Range Interpretation Comments LIPASE (BEAKER) (test code = 749) 14 U/L 8-78 [id number] 18:13:00 Test Item Value Reference Range Interpretation Comments MAGNESIUM (BEAKER) (test code = 2.1 mg/dL 1.6-2.6 627) HEPATIC FUNCTION [id number] 18:13:00 Test Item Value Reference Range Interpretation [...] 6 U/L 6-55 347) CSF CELL COUNT [id number] 16:39:00 Test Item Value Reference Range Interpretation [...] H (BEAKER) (test code = 700) TROPONIN [id number] 16:24:00 Test Item Value Reference Range Interpretation [...] acidosis, acute neurological disease, and persistent tachyarrhythmia.GLUCOSE, [id number] 16:22:00 Test Item Value Reference Range Interpretation Comments GLUCOSE CSF (BEAKER) (test code = 100 mg/dL 40-70 H 406) PROTEIN, [id number] 16:22:00 Test Item Value Reference Range Interpretation Comments PROTEIN CSF (BEAKER) (test code = 45 mg/dL 15-45 378) TACROLIMUS [id number] 15:10:00 Test Item Value Reference Range Interpretation Comments TACROLIMUS BLOOD (BEAKER) (test code < ng/mL 10.0-20.0 L = 657) TROPONIN [id number] 14:31:00 Test Item Value Reference Range Interpretation [...] failure, acidosis, acute neurological disease, and persistent tachyarrhythmia.[id number] 14:15:00 Test Item Value Reference Range Interpretation Comments PROTIME (BEAKER) (test code = 14.0 seconds 11.7-14.7 759) INR (BEAKER) (test code = 370) 1.1 <=5.9 PARTIAL THROMBOPLASTIN TIME 30.0 seconds 22.5-36.0 (BEAKER) (test code = 760) RECOMMENDED COUMADIN/WARFARIN INR THERAPY RANGESSTANDARD DOSE: 2.0 - 3.0 Includes: PROPHYLAXIS for venous thrombosis, systemic embolization; TREATMENT for venous thrombosis and/or pulmonary embolus.HIGH RISK: Target INR is 2.5-3.5 for patients with mechanical heart valves.PROTHROMBIN [id number] 14:14:00 Test Item Value Reference Range Interpretation Comments PROTIME (BEAKER) (test code = 14.0 seconds 11.7-14.7 759) INR (BEAKER) (test code = 370) 1.1 <=5.9 RECOMMENDED COUMADIN/WARFARIN INR THERAPY RANGESSTANDARD DOSE: 2.0 - 3.0 Includes: PROPHYLAXIS for venous thrombosis, systemic embolization; TREATMENT for venous thrombosis and/or pulmonary embolus.HIGH RISK: Target INR is 2.5-3.5 for patients with mechanical heart valves.POCT-LACTIC ACID, [id number] 12:58:00 Test Item Value Reference Range Interpretation Comments POC-LACTIC ACID, 1.1 mmol/L 0.9-1.7 TESTED AT [facility] 6720 VENOUS (BEAKER) (test G[place] code = 2805) [address] BLOOD GAS, [id number] 11:46:00 Test Item Value Reference Range Interpretation [...] (BEAKER) (test code = 1819) 32.0 % [id number] 08:34:00 Test Item Value Reference Range Interpretation Comments MAGNESIUM (BEAKER) (test code = 2.2 mg/dL 1.6-2.6 627) [id number] 08:34:00 Test Item Value Reference Range Interpretation Comments PHOSPHORUS (BEAKER) (test code = 3.9 mg/dL 2.3-4.7 604) CT, BRAIN, WITHOUT [id number] 06:36:00Dialysis 05/23Reason for exam:- >ALTERED MENTAL STATUSIs the patient ?->NoWhat is the patient's sedation requirement?->No SedationFINAL REPORT EXAM: CT head without contrast. CLINICAL HISTORY: Headache, acute,norm neuro exam. Altered mental status. COMPARISON: None. [...] MDReport Verified Date/Time: 07/30/2018 06:36:01 Reading Location: [address] Body Reading Room RAD, CHEST, 1 VIEW, NON [id number] 06:15:00Dialysis 05/23Reason for exam:->coughIs the patient ?->NoShould this [...] is unremarkable. Impression: Pulmonary edema. Superimposed pneumonia cannot be excluded.Small bilateral pleural effusions. Signed: Aleks Jamison MDReport Verified Date/Time: 07/30/2018 06:15:50 Reading Location: [facility] CT Body Reading Room BASIC METABOLIC [id number] 05:44:00 Test Item Value Reference Range Interpretation [...] APPLICABLE FOR DIALYSIS PATIEN TS. HEPATIC FUNCTION [id number] 05:42:00 Test Item Value Reference Range Interpretation [...] (test code = 8 U/L 6-55 347) [id number] 05:39:00 Test Item Value Reference Range Interpretation Comments AMMONIA (BEAKER) (test 48 mol/L 18-72 Speci men slightly code = 348) hemolyzed CBC W/PLT COUNT & AUTO [id number] 05:34:00 Test Item Value Reference Range Interpretation [...] PERCENT (BEAKER) (test code = 2801) CULTURE, [id number] 09:00:00 Test Item Value Reference Range Interpretation [...] REPORT code = Report Text16) WHOLE BLOOD [id number] 12:35:00 Test Item Value Reference Range Interpretation Comments WHOLE BLOOD GLUCOSE (test code = 209 MG/DL 70-99 H POC GLU) BMP, BASIC METABOLIC [id number] 11:05:00 Test Item Value Reference Range Interpretation [...] glucose = GLUCOSE) normal <100 MG/ DL- [employer] [place] recommendation* * CALCIUM (test code 7.3 MG/DL 8.4-10.2 L = CABLOOD) GFR (test code = 2 mL/min/1.73m2 A GFR of >90 GFR) mL/min/1.73m2 i s considered norm al. WHOLE BLOOD [id number] 06:45:00 Test Item Value Reference Range Interpretation Comments WHOLE BLOOD GLUCOSE (test code = 183 MG/DL 70-99 H POC GLU) WHOLE BLOOD [id number] 00:15:00 Test Item Value Reference Range Interpretation Comments WHOLE BLOOD GLUCOSE (test code = 160 MG/DL 70-99 H POC GLU) WHOLE BLOOD [id number] 21:20:00 Test Item Value Reference Range Interpretation Comments WHOLE BLOOD GLUCOSE (test code = 136 MG/DL 70-99 H POC GLU) WHOLE BLOOD [id number] 16:45:00 Test Item Value Reference Range Interpretation Comments WHOLE BLOOD GLUCOSE (test code = 127 MG/DL 70-99 H POC GLU) IRON/ BINDING CAPACITY/ [id number] 13:01:00 Test Item Value Reference Range Interpretation Comments IRON % SATURATION (test 32 % 20-45 code = %SAT) IRON (test code = FE) 77 UG/DL 37-170 If Iro n is <6 the % saturation is incalculable. IBC (test code = IBC) 238 265-497 L [id number] 13:01:00 Test Item Value Reference Range Interpretation Comments FERRITIN (test code = FERR) 573 NG/ML 6-137 H BMP, BASIC METABOLIC [id number] 05:06:00 Test Item Value Reference Range Interpretation [...] glucose = GLUCOSE) normal <100 MG/ DL- [employer] [place] recommendation* * CALCIUM (test code 7.3 MG/DL 8.4-10.2 L = CABLOOD) GFR (test code = 3 mL/min/1.73m2 A GFR of >90 GFR) mL/min/1.73m2 i s considered norm al. [id number] 04:34:00 Test Item Value Reference Range Interpretation [...] K/UL 1.2-7.2 = NEUT) CELL COUNT, BODY [id number] 23:37:00 Test Item Value Reference Range Interpretation Comments SOURCE (test code = SOURBF) PERITONEALFLUID VOLUME (test code = VOLBF) 6 ML APPEARANCE (test code = CLEAR APPBF) BODY FLUID COLOR (test code = COLORLESS COLRBF) RBC (test code = RBCBF) 0 /CUMM 0-<1000 WBC (test code = WBCBF) 0 /CUMM 0-5 WHOLE BLOOD [id number] 20:40:00 Test Item Value Reference Range Interpretation Comments WHOLE BLOOD GLUCOSE (test code = 104 MG/DL 70-99 POC GLU) [id number] 17:58:00 Test Item Value Reference Range Interpretation Comments BLOOD TYPE (test code = TYPE) O Rh Positive ANTIBODY SCREEN (test code = NEGATIVE NEGATIVE SCREEN) CHEST XR 2 [id number] 16:55:[address] [id number] IMAGING REPORTPatient Name: Karin ROWAN of Service: [id number]: 46 Sex: F Order #: [id number] Room: ERSDOB: 1971 X-Ray Number: [id number] Record Number: [id number] Hospital Number: [id number] Physician: DUNIA COOPER -Ordering Physician: LAURA CARMICHAEL XR 2 VIEWS 05/16/2018 4:45 PMHISTORY: cough . Chest pain with shortness of breath.COMPARISON: NoneTECHNIQUE: Two-view chestFINDINGS:The card iomediastinal silhouette is enlarged with her central vascularengorgement with pulmonary edema. There is a trace right effusion. There isno pneumothorax.IMPRESSION:1. Cardiomegaly with pulmonary edema and a trace right pleural effusion.Electronically Signed By: Coral Ko M.D., 05/16/2018 4:53 PMLegally authenticated by SUSU MONCADA 2018-05-16 16:53:21CT HEAD W/O CONT 2018-05-16 16:12:[address] [id number] IMAGING REPORTPatient Name: Karin ROWAN of Service: [id number]: 47 Sex: F Order #: [id number] Room: QERDOB: 1970 X-Ray Number: [id number] Record Number: [id number] Hospital Number: [id number] Physician: DUNIA COOPER -Ordering Physician: LAURA CARMICHAEL CT 05/16/2018 4:02 PMHistory: AMS, hypertensive crisis. Altered mental status. Altered level ofconsciousness. Weakness. Blurred vision. Dizzi ness.Comparison: NoneTechnique: Unenhanced CT imaging of the head. This CT exam was performedusing one or more of the following dose reduction techniques: Automatedexposure control, adjustment of the mA and/or KV according to patient size,or use of iterative reconstruction technique.Findings:There is no evidence of acute intracranial abnormality. Specifically, thereis no evidence of acute hemorrhage,infarct, contusion, hydrocephalus,midline shift, or abnormal extra- axial collection. The calvarium is intact.The paranasal sinuses and mastoid air cells are clear.Impression:1. No acute intracranial abnormality.Electronically Signed By: Coral Ko M.D., 05/16/2018 4:09 PMLegally authenticated by DUGLAS MONCADA 2018-05-16 16:09:[id number] 15:41:00 Test Item Value Reference Range Interpretation [...] glucose = GLUCOSE) normal <100 MG/ DL- [employer] [place] recommendation* * CALCIUM (test [...] s considered norm al. RESULTS VERIFIED.C'd TO JAMISON/SYED/Cornelio0/[id number] 15:09:00 Test Item Value Reference Range Interpretation [...] 6.0 K/UL 1.2-7.2 = NEUT) WHOLE BLOOD [id number] 14:55:00 Test Item Value Reference Range Interpretation Comments WHOLE BLOOD GLUCOSE (test code = 162 MG/DL 70-99 H POC GLU) AFB CULTURE + [id number] 13:42:00 Test Item Value Reference Range Interpretation Comments CULTURE (BEAKER) (test No acid-fast bacilli code = 1095) isolated in 42 days AFB SMEAR (BEAKER) No acid fast bacilli (test code = 994) seen FUNGUS CULTURE + [id number] 06:53:00 Test Item Value Reference Range Interpretation Comments CULTURE (BEAKER) (test No fungus isolated in code = 1095) 28 days FUNGUS SMEAR (BEAKER) No fungi seen (test code = 1406) TISSUE [id number] 18:14:00Surgical Pathology Report Case: [id number] Authorizing Provider: Reese [place], MD Collected: 02/12/2018 1238 Ordering Location: [facility] Received: 02/12/2018 1400 PERIOPERATIVE SERVICESPathologist: Amy Ortega MD Specimen: Kidney, kidney transplant allograft KIDNEY, ALLOGRAFT, TRANSPLANT NEPHRECTOMY- BOTH ANTIBODY- AND CELL- MEDIATED REJECTION, SEVERE, ACUTE AND CHRONIC Signing Pathologist Direct Phone Line: [phone] signed by Amy Ortega MD on 03/11/2018at 6:14 [id number], 49426, 25213 x3, 91505 x3, 65252WQBMBdceqe transplant The specimen is received in aformalin-filled container and labeled with the patient's information labeled "kidney transplant" andconsists of a 79 gm simple nephrectomy measuring 9 x 4.5 x 3 cm.Capsule is intact townsend-red with petechial hemorrhaging. Cross section shows a pale townsend parenchyma with no corticomedullary architecture. No masses are seen. Prosthetic Dentist sections are submitted as follows: A1 vasculature en face; A2 through A5, sales and merchandising representative of kidney. 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 There is diffuse interstitial fibrosis and tubular atrophy with chronic lymphoplasmacytic i nterstitial inflammation with plasma cells in clusters. Thyroidization of tubules is present. There is moderate tubulitis in few non-atrophic tubules as well as atrophic tubules. The interstitium showsmultiple lymphoid aggregates. Small to medium sized vessels show transmural arteritis and fibrocellular intimal expansion composed of foam cell and fibroblasts and near complete obliteration of lumina.No thrombosis or infarction is present.Immunostain show diffuse C4d staining along the glomerular and peritubular capillaries. There is also infiltration of T lymphocytes (CD3 positive) and monocytes (CD68 positive) in all renal compartments. Immunostain for CD20 is positive in lymphoid aggregates andin scattered interstitial lymphocytes.Electron Microscopy (performed on paraffin embedded tissue)Examination of the glomerular ultrastructure reveals that the glomerular basement membrane is variably th ickened. It shows double contours due to subendothelial [...] this case and the interpretation is incorporated inthe diagnostic report above:The immunohistochemistry test was developed and its performance character istics determined by [facility], Pathology Laboratory. It has not been cleared [...] to perform high complexity clinical laboratory testing.POCT-GLUCOSE [id number] 13:13:00 Test Item Value Reference Range Interpretation Comments POC-GLUCOSE METER 203 mg/dL 70-110 H TESTED AT [place] [address] ([facility]) (test code = GILDA [place] 1538) [address] TISSUE [id number] 12:32:00Surgical Pathology Report Case: [id number] Authorizing Provider: Lukasz Champion, Collected: 02/20/2018 0941 Ordering Location: [address] Received: 02/20/2018 4065 Pathologist: Prerna Ramsey MD Specimens: A) - Polyp, Colon - Right/Ascending, POLYP TAKEN WITH COLD SNARE B) -Polyp, Colon - Transverse, POLYPS X2 TAKEN WITH REGULAR FORCEP A. COLON, RIGHT/ ASCENDING, ENDOSCOPIC POLYPECTOMY: - POLYPOID COLONIC MUCOSA, INFLAMED WITH REACTIVE CHANGE - NO DEFINITE DYSPLASIA OR MA LIGNANCY IDENTIFIEDB. COLON, TRANSVERSE POLYP x2, ENDOSCOPIC POLYPECTOMY: - TUBULAR ADENOMA X 2 - NOHIGH GRADE DYSPLASIA OR MALIGNANCY SEEN Signing Pathologist Direct Phone Line: [phone] signed by Prerna Ramsey MD on 02/21/2018 at 12:32 [id number] X 2AnemiaA. Right ascending colon polyp; B. Transverse colon polyp x2The specimen is received in two containers of formalin both labeled with the patient's information. Part A labeled "right ascending colon polyp" and consists of a 0.3 cm fragment of townsend tissue, submitted entirely A1. Part B labeled "transverse colon polyp x2"and consists of two round fragments of townsend tissue measuring 0.6 and 0.5 cm, submitted entirely B1. CG/pl A-B. Performed.POCT-GLUCOSE [id number] 09:09:00 Test Item Value Reference Range Interpretation Comments POC-GLUCOSE METER 198 mg/dL 70-[address] [facility] 6720 (BEAKER) (test code = GILDA [place] 1538) [address] BASIC METABOLIC [id number] 04:27:00 Test Item Value Reference Range Interpretation [...] S NOT APPLICABLE FOR DIALYSIS PATIEN TS. [id number] 04:11:00 Test Item Value Reference Range Interpretation Comments PHOSPHORUS (BEAKER) (test code = 4.5 mg/dL 2.3-4.7 604) [id number] 04:11:00 Test Item Value Reference Range Interpretation Comments MAGNESIUM (BEAKER) (test code = 2.4 mg/dL 1.6-2.6 627) PROTHROMBIN [id number] 04:09:00 Test Item Value Reference Range Interpretation Comments PROTIME (BEAKER) (test code = 14.2 seconds 11.7-14.7 759) INR (BEAKER) (test code = 370) 1.1 <=5.9 RECOMMENDED COUMADIN/WARFARIN INR THERAPY RANGESSTANDARD DOSE: 2.0 - 3.0 Includes: PROPHYLAXIS for venous thrombosis, systemic embolization; TREATMENT for venous thrombosis and/or pulmonary embolus.HIGH RISK: Target INR is 2.5-3.5 for patients with mechanical heart valves.CBC W/PLT COUNT & AUTO [id number] 03:42:00 Test Item Value Reference Range Interpretation [...] PERCENT (BEAKER) (test code = 2801) POCT-GLUCOSE [id number] 23:24:00 Test Item Value Reference Range Interpretation Comments POC-GLUCOSE METER 259 mg/dL 70-[address] [facility] 6720 ([facility]) (test code = GILDA [place] 1538) [address] CT, CHEST WITH IV CONTRAST- PE TEST [id number] 22:13:00Dialysis 05/23FINAL REPORT CT Chest PE Protocol [...] monitoring subsequent IV contrast. Postcontrast axial images ofthe chest were obtained from above the arch [...] MDReport Verified Date/Time: 02/20/2018 22:13:58 Reading Location: [facility] B1 C013W Consult Reading Room POCT-GLUCOSE [id number] 17:56:00 Test Item Value Reference Range Interpretation Comments POC-GLUCOSE METER 132 mg/dL 70-110 H TESTED AT [place] [address] ([facility]) (test code = GILDA Gates [facility] 1538) [address] RAD, CHEST, 1 VIEW, NON [id number] 14:28:00Dialysis 05/23Reason for exam:- >edemaShould this be performed at the bedside?->YesFINAL REPORT TECHNIQUE: Frontal chest radiograph dated 02/20/2018. CLINICAL HIST ORY: Edema COMPARISON STUDY: Chest radiograph dated 02/16/2018 IMPRESSION:Right- sided vascular line has been removed. Minimal atelectasis is seen in the left lung base. No pleural effusion or pneumothorax. Cardiomediastinal silhouette is stable in size. No pulmonary edema. No fracture. Signed: Dylan Núñezeport Verified Date/Time: 02/20/2018 14:28:38 Reading Location: [facility] Radiology Reading Room POCT-GLUCOSE [id number] 11:40:00 Test Item Value Reference Range Interpretation Comments POC-GLUCOSE METER 79 mg/dL 70-110 TESTED AT [place] [address] ([facility]) (test code = GILDA [place] [facility] [address] 1538) POCT-GLUCOSE [id number] 09:09:00 Test Item Value Reference Range Interpretation Comments POC-GLUCOSE METER 76 mg/dL 70-110 TESTED AT [place] [address] ([facility]) (test code = GILDA [place] [facility] [address] 1538) BASIC METABOLIC [id number] 06:28:00 Test Item Value Reference Range Interpretation [...] S NOT APPLICABLE FOR DIALYSIS PATIEN TS. [id number] 06:27:00 Test Item Value Reference Range Interpretation Comments PHOSPHORUS (BEAKER) (test code = 4.9 mg/dL 2.3-4.7 H 604) [id number] 06:27:00 Test Item Value Reference Range Interpretation Comments MAGNESIUM (BEAKER) (test code = 2.3 mg/dL 1.6-2.6 627) PROTHROMBIN [id number] 06:12:00 Test Item Value Reference Range Interpretation Comments PROTIME (BEAKER) (test code = 14.5 seconds 11.7-14.7 759) INR (BEAKER) (test code = 370) 1.1 <=5.9 RECOMMENDED COUMADIN/WARFARIN INR THERAPY RANGESSTANDARD DOSE: 2.0 - 3.0 Includes: PROPHYLAXIS for venous thrombosis, systemic embolization; [...] RED BLOOD CELLS 0 /100 WBC 0-0 ([facility]) (test code = 413) POCT-GLUCOSE [id number] 21:36:00 Test Item Value Reference Range Interpretation Comments POC-GLUCOSE METER 247 mg/dL 70-110 H TESTED AT [place] [address] ([facility]) ([facility] = [facility] 1538) [address] POCT-GLUCOSE [id number] 17:43:00 Test Item Value Reference Range Interpretation Comments POC-GLUCOSE METER 95 mg/dL 70-110 TESTED AT [place] [address] ([facility]) (test code = [facility] [address] 1538) [id number] 14:31:00 Test Item Value Reference Range Interpretation Comments HAPTOGLOBIN ([facility]) (test code = 339 mg/dL 14-258 H 366) POCT-GLUCOSE [id number] 13:39:00 Test Item Value Reference Range Interpretation Comments POC-GLUCOSE METER 143 mg/dL 70-110 H TESTED AT [place] [address] ([facility]) (test code = [facility] Yajaira [facility] 1538) [address] POCT-GLUCOSE [id number] 08:47:00 Test Item Value Reference Range Interpretation Comments POC-GLUCOSE METER 142 mg/dL 70-110 H TESTED AT [place] [address] ([facility]) (test code = [facility] 1435) [address] VITAMIN B12 AND [id number] 04:25:00 Test Item Value Reference Range Interpretation Comments VITAMIN B12 (BEAKER) (test code = 252 pg/mL 213-816 774) FOLATE (BEAKER) (test code = 362) 10.9 ng/mL >=7.0 BASIC METABOLIC [id number] 03:56:00 Test Item Value Reference Range Interpretation [...] S NOT APPLICABLE FOR DIALYSIS PATIEN TS. [id number] 03:55:00 Test Item Value Reference Range Interpretation Comments PHOSPHORUS (BEAKER) (test code = 4.0 mg/dL 2.3-4.7 604) [id number] 03:55:00 Test Item Value Reference Range Interpretation [...] % 20-55 (test code = 2590) ANAEROBIC [id number] 03:46:00 Test Item Value Reference Range Interpretation Comments CULTURE (BEAKER) (test No anaerobes isolated code = 1095) PROTHROMBIN [id number] 03:41:00 Test Item Value Reference Range Interpretation Comments PROTIME (BEAKER) (test code = 14.2 seconds 11.7-14.7 759) INR (BEAKER) (test code = 370) 1.1 <=5.9 RECOMMENDED COUMADIN/WARFARIN INR THERAPY RANGESSTANDARD DOSE: 2.0 - 3.0 Includes: PROPHYLAXIS for venous thrombosis, systemic embolization; [...] 0-0 (BEAKER) (test code = 413) RETICULOCYTE [id number] 03:34:00 Test Item Value Reference Range Interpretation Comments RETICULOCYTE COUNT PCT (BEAKER) (test 2.9 % 0.5-1.7 H code = 575) POCT-GLUCOSE [id number] 21:15:00 Test Item Value Reference Range Interpretation Comments POC-GLUCOSE METER 170 mg/dL 70-[address] [facility] 6720 (BEAKER) (test code = [facility] 1538) [address] POCT-GLUCOSE [id number] 17:30:00 Test Item Value Reference Range Interpretation Comments POC-GLUCOSE METER 152 mg/dL 70-[address] [facility] 6720 (BEAKER) (test code = [facility] 1538) [address] POCT-GLUCOSE [id number] 12:46:00 Test Item Value Reference Range Interpretation Comments POC-GLUCOSE METER 92 mg/dL 70-110 TESTED AT [place] [address] (BEAKER) (test code = [facility] [address] 1538) BASIC METABOLIC [id number] 04:30:00 Test Item Value Reference Range Interpretation [...] S NOT APPLICABLE FOR DIALYSIS PATIEN TS. [id number] 04:29:00 Test Item Value Reference Range Interpretation Comments PHOSPHORUS (BEAKER) (test code = 6.2 mg/dL 2.3-4.7 H 604) [id number] 04:29:00 Test Item Value Reference Range Interpretation [...] 0-0 (BEAKER) (test code = 413) PROTHROMBIN [id number] 04:13:00 Test Item Value Reference Range Interpretation Comments PROTIME (BEAKER) (test code = 14.7 seconds 11.7-14.7 759) INR (BEAKER) (test code = 370) 1.2 <=5.9 RECOMMENDED COUMADIN/WARFARIN INR THERAPY RANGESSTANDARD DOSE: 2.0 - 3.0 Includes: PROPHYLAXIS for venous thrombosis, systemic embolization; TREATMENT for venous thrombosis and/or pulmonary embolus.HIGH RISK: Target INR is 2.5-3.5 for patients with mechanical heart valves.OCCULT BLOOD, [id number] 23:05:00 Test Item Value Reference Range Interpretation Comments FECAL OCCULT BLOOD (BEAKER) (test Negative Negative code = 618) POCT-GLUCOSE [id number] 22:06:00 Test Item Value Reference Range Interpretation Comments POC-GLUCOSE METER 243 mg/dL 70-110 H TESTED AT [place] [address] ([facility]) (test code = [facility] 1538) [address] POCT-GLUCOSE [id number] 22:06:00 Test Item Value Reference Range Interpretation Comments POC-GLUCOSE METER 134 mg/dL 70-110 H TESTED AT [place] [address] ([facility]) (test code = GILDA [facility] 1538) [address] POCT-GLUCOSE [id number] 22:06:00 Test Item Value Reference Range Interpretation Comments POC-GLUCOSE METER 211 mg/dL 70-110 H TESTED AT [place] [address] ([facility]) (test code = G[facility]DA [facility] 1538) [address] CBC W/PLT COUNT & AUTO [id number] 21:49:00 Test Item Value Reference Range Interpretation [...] PERCENT (BEAKER) (test code = 2801) POCT-GLUCOSE [id number] 21:21:00 Test Item Value Reference Range Interpretation Comments POC-GLUCOSE METER 171 mg/dL 70-110 H TESTED AT [place] [address] ([facility]) (test code = [facility] 1538) [address] POCT-GLUCOSE [id number] 18:27:00 Test Item Value Reference Range Interpretation Comments POC-GLUCOSE METER 175 mg/dL 70-110 H TESTED AT [place] [address] ([facility]) (test code = [facility] 1538) [address] POCT-GLUCOSE [id number] 09:03:00 Test Item Value Reference Range Interpretation Comments POC-GLUCOSE METER 136 mg/dL 70-110 H TESTED AT [place] [address] ([facility]) (test code = [facility] 1538) [address] BASIC METABOLIC [id number] 06:57:00 Test Item Value Reference Range Interpretation [...] S NOT APPLICABLE FOR DIALYSIS PATIEN TS. [id number] 06:52:00 Test Item Value Reference Range Interpretation Comments MAGNESIUM (BEAKER) 2.6 mg/dL 1.6-2.6 Specimen slightly (test code = 627) hemolyzed [id number] 06:52:00 Test Item Value Reference Range Interpretation Comments PHOSPHORUS (BEAKER) 5.6 mg/dL 2.3-4.7 H Specimen slightly (test code = 604) hemolyzed PROTHROMBIN [id number] 06:52:00 Test Item Value Reference Range Interpretation Comments PROTIME (BEAKER) (test code = 16.4 seconds 11.7-14.7 H 759) INR (BEAKER) (test code = 370) 1.3 <=5.9 RECOMMENDED COUMADIN/WARFARIN INR THERAPY RANGESSTANDARD DOSE: 2.0 - 3.0 Includes: PROPHYLAXIS for venous thrombosis, systemic embolization; [...] code = 412) PLATELET COUNT (AKER) (test 163 K/CU MM 150-450 code = 756) MEAN PLATELET VOLUME (BEAKER) 9.5 fL 9.4-12.3 (test code = 754) NUCLEATED RED BLOOD CELLS 0 /100 WBC 0-0 (AKER) (test code = 413) POCT-GLUCOSE [id number] 21:13:00 Test Item Value Reference Range Interpretation Comments POC-GLUCOSE METER 143 mg/dL 70-110 H TESTED AT [place] [address] ([facility]) (test code = [facility] Yajaira [facility] 1538) [address] POCT-GLUCOSE [id number] 18:12:00 Test Item Value Reference Range Interpretation Comments POC-GLUCOSE METER 177 mg/dL 70-110 H TESTED AT [place] [address] ([facility]) (test code = [facility] 1538) [address] POCT-GLUCOSE [id number] 18:12:00 Test Item Value Reference Range Interpretation Comments POC-GLUCOSE METER 127 mg/dL 70-110 H TESTED AT [place] [address] ([facility]) (test code = [facility] 1538) [address] CBC W/PLT COUNT & AUTO [id number] 12:47:00 Test Item Value Reference Range Interpretation [...] PERCENT (BEAKER) (test code = 2801) POCT-GLUCOSE [id number] 11:58:00 Test Item Value Reference Range Interpretation Comments POC-GLUCOSE METER 109 mg/dL 70-[address] [facility] 6720 (BEAKER) (test code = G[facility] 1538) [address] POCT-GLUCOSE [id number] 09:34:00 Test Item Value Reference Range Interpretation Comments POC-GLUCOSE METER 105 mg/dL 70-[address] [facility] 6720 (BEAKER) (test code = GILDA Gates [place] 1538) [address] [id number] 07:19:00 Test Item Value Reference Range Interpretation Comments PREALBUMIN (BEAKER) (test code = 23 mg/dL 14-45 586) BASIC METABOLIC [id number] 07:06:00 Test Item Value Reference Range Interpretation [...] S NOT APPLICABLE FOR DIALYSIS PATIEN TS. [id number] 07:04:00 Test Item Value Reference Range Interpretation Comments PHOSPHORUS (BEAKER) (test code = 7.9 mg/dL 2.3-4.7 H 604) [id number] 07:04:00 Test Item Value Reference Range Interpretation Comments MAGNESIUM (BEAKER) (test code = 2.5 mg/dL 1.6-2.6 627) PROTHROMBIN [id number] 06:49:00 Test Item Value Reference Range Interpretation Comments PROTIME (BEAKER) (test code = 15.6 seconds 11.7-14.7 H 759) INR (BEAKER) (test code = 370) 1.2 <=5.9 RECOMMENDED COUMADIN/WARFARIN INR THERAPY RANGESSTANDARD DOSE: 2.0 - 3.0 Includes: PROPHYLAXIS for venous thrombosis, systemic embolization; TREATMENT for venous thrombosis and/or pulmonary embolus.HIGH RISK: Target INR is 2.5-3.5 for patients with mechanical heart valves.HEPATITIS B SURFACE [id number] 01:41:00 Test Item Value Reference Range Interpretation Comments HEPATITIS B SURFACE ANTIGEN (2) Nonreactive Nonreactive ([facility]) (test code = 2585) RAD, CHEST, 2 VIEWS, APICAL [id number] 00:08:00Dialysis 05/23Reason for exam:->patient requiring persistent [id number] REPORT INDICATION: patient requiring persistent o2 COMPARISON: February TECHNIQUE: Frontal and lateral views of the chest. IMPRESSION:Limited by body habitus.Lungs andpleura: Areas of subsegmental atelectasis versus developing edema. Trace posterior lesions.Heart andmediastinum: Unchanged cardiomegaly. No hilar adenopathy.Osseous structures: No acute abnormality.Additional findings: Stable IJ central venous catheter. Signed: JR Arce Robert MDReport Verified Date/Time: 02/16/2018 00:08:03 Reading Location: [address] Reading Room POCT-GLUCOSE [id number] 17:09:00 Test Item Value Reference Range Interpretation Comments POC-GLUCOSE METER 181 mg/dL 70-110 H TESTED AT [place] [address] ([facility]) (test code = [place] 1538) [address] POCT-GLUCOSE [id number] 10:53:00 Test Item Value Reference Range Interpretation Comments POC-GLUCOSE METER 138 mg/dL 70-110 H TESTED AT [place] [address] ([facility]) (test code = [place] 1538) [address] POCT-GLUCOSE [id number] 10:53:00 Test Item Value Reference Range Interpretation Comments POC-GLUCOSE METER 201 mg/dL 70-110 H TESTED AT [place] [address] ([facility]) (test code = [facility] 1538) [address] SURGICALLY OBTAINED CULTURE + GRAM [id number] 08:17:00 Test Item Value Reference Range Interpretation Comments CULTURE (BEAKER) (test code No growth = 1095) GRAM STAIN RESULT (BEAKER) <1+ WBCs (test code = 1123) GRAM STAIN RESULT (BEAKER) No organisms seen (test code = 63703) POCT-GLUCOSE [id number] 08:10:00 Test Item Value Reference Range Interpretation Comments POC-GLUCOSE METER 160 mg/dL 70-[address] [facility] 6720 (BEAKER) (test code = [place] 1538) [address] CBC W/PLT COUNT & AUTO [id number] 07:01:00 Test Item Value Reference Range Interpretation [...] (BEAKER) (test code = 2801) BASIC METABOLIC [id number] 06:23:00 Test Item Value Reference Range Interpretation [...] S NOT APPLICABLE FOR DIALYSIS PATIEN TS. [id number] 06:21:00 Test Item Value Reference Range Interpretation Comments PHOSPHORUS (BEAKER) (test code = 7.0 mg/dL 2.3-4.7 H 604) [id number] 06:21:00 Test Item Value Reference Range Interpretation Comments MAGNESIUM (BEAKER) (test code = 2.1 mg/dL 1.6-2.6 627) PROTHROMBIN [id number] 06:10:00 Test Item Value Reference Range Interpretation Comments PROTIME (BEAKER) (test code = 14.1 seconds 11.7-14.7 759) INR (BEAKER) (test code = 370) 1.1 <=5.9 RECOMMENDED COUMADIN/WARFARIN INR THERAPY RANGESSTANDARD DOSE: 2.0 - 3.0 Includes: PROPHYLAXIS for venous thrombosis, systemic embolization; TREATMENT for venous thrombosis and/or pulmonary embolus.HIGH RISK: Target INR is 2.5-3.5 for patients with mechanical heart valves.BLOOD [id number] 06:00:00 Test Item Value Reference Range Interpretation Comments CULTURE (BEAKER) (test No growth in 5 days code = 1095) BLOOD [id number] 06:00:00 Test Item Value Reference Range Interpretation Comments CULTURE (BEAKER) (test No growth in 5 days code = 1095) POCT-GLUCOSE [id number] 22:46:00 Test Item Value Reference Range Interpretation Comments POC-GLUCOSE METER 166 mg/dL 70-110 H TESTED AT [place] [address] (BEAKER) (test code = [facility] 1538) [address] BODY FLUID CULTURE + GRAM [id number] 08:30:00 Test Item Value Reference Range Interpretation Comments CULTURE (BEAKER) (test code No growth = 1095) GRAM STAIN RESULT (BEAKER) No WBCs (test code = 1123) GRAM STAIN RESULT (BEAKER) No organisms seen (test code = 94249) POCT-GLUCOSE [id number] 08:09:00 Test Item Value Reference Range Interpretation Comments POC-GLUCOSE METER 138 mg/dL 70-110 H TESTED AT [place] [address] (BEAKER) (test code = [facility] 1538) [address] BASIC METABOLIC [id number] 08:04:00 Test Item Value Reference Range Interpretation [...] NOT APPLICABLE FOR DIALYSIS PATIEN TS. PROTHROMBIN [id number] 07:58:00 Test Item Value Reference Range Interpretation Comments PROTIME (BEAKER) (test code = 14.6 seconds 11.7-14.7 759) INR (BEAKER) (test code = 370) 1.1 <=5.9 RECOMMENDED COUMADIN/WARFARIN INR THERAPY RANGESSTANDARD DOSE: 2.0 - 3.0 Includes: PROPHYLAXIS for venous thrombosis, systemic embolization; TREATMENT for venous thrombosis and/or pulmonary embolus.HIGH RISK: Target INR is 2.5-3.5 for patients with mechanical heart valves.[id number] 07:58:00 Test Item Value Reference Range Interpretation Comments PHOSPHORUS (BEAKER) (test code = 5.9 mg/dL 2.3-4.7 H 604) [id number] 07:58:00 Test Item Value Reference Range Interpretation Comments MAGNESIUM (BEAKER) (test code = 2.1 mg/dL 1.6-2.6 627) CBC W/PLT COUNT & AUTO [id number] 07:45:00 Test Item Value Reference Range Interpretation [...] PERCENT (BEAKER) (test code = 2801) POCT-GLUCOSE [id number] 22:29:00 Test Item Value Reference Range Interpretation Comments POC-GLUCOSE METER 177 mg/dL 70-[address] [facility] 6720 ([facility]) (test code = [place] 1538) [address] ANG, NON-TUNNELED CATH >5 Y.O. [id number] 17:29:00Dialysis 05/23Reason for exam:->esrd needs access stat for dialysisIs the patient ?->NoWhen was patient's last menstrual cycle?->02/04/18INAL REPORT History: Renal failure, need for hemodialysis access Findings: Following informed written consent, the patient's right cervical region was prepped and draped in the usual sterile manner and maximum sterile barrier techniques [...] position under fluoroscopic guidance. There were no immediate complications. Findings: Single sonographic image of the right internal jugular vein prior to catheter placement demonstrates a patent and compressible vein without evidence for thrombosis. This ultrasound image was obtained and archived on PACs. Spot radiograph of the chest following catheter placement demonstrates the right internal jugular nontunneled catheter to lie in expected position with its tip over the superior vena cava. No pneumothorax. Impression: 1. Successful uncomplicated placementof a right internal jugular nontunneled catheter. Fluoroscopy time: 0.5 minsEstimated dose reported as (Ka,r): 7.2 mGy Signed: Mayo Schuster MDReport Verified Date/Time: 02/13/2018 17:29:57 Reading Location: [place] [address] Angio Body Reading Room POCT-GLUCOSE METER 2018-02-13 16:47:00 Test Item Value Reference Range Interpretation Comments POC-GLUCOSE METER 184 mg/dL 70-110 H TESTED AT [place] [address] ([facility]) (test code = [facility]ILDA [facility] 1538) [address] RAD, CHEST, 1 VIEW, NON [id number] 11:34:00Dialysis 05/23Reason for exam:- >fluid overloadFINAL REPORT Chest one view INDICATION: Fluid overload COMPARISON: 02/09/2018 IMPRESSION: Right jugular line extends to the SVC/RA junction. The cardiac silhouette is enlarged. Mediastinal prominence is stable. There is pulmonary vascular congestion with interstitial and perihilar edema. Basilar airspace opacities may reflect atelectasis and edema. Pneumonitis should be excluded clinically. The left costophrenic angle is obscured. No acute osseous abnormality or pneumothorax is seen. Signed: Stefania Hewitt MDReport Verified Date/Time: 02/13/2018 11:34:05 Reading Location: [facility] Radiology Reading Room POCT-GLUCOSE [id number] 10:40:00 Test Item Value Reference Range Interpretation Comments POC-GLUCOSE METER 166 mg/dL 70-[address] [facility] 6720 (BEAKER) (test code = [facility] 1538) [address] BASIC METABOLIC [id number] 08:41:00 Test Item Value Reference Range Interpretation [...] NOT APPLICABLE FOR DIALYSIS PATIEN TS. POCT-GLUCOSE [id number] 07:40:00 Test Item Value Reference Range Interpretation Comments POC-GLUCOSE METER 137 mg/dL 70-[address] [facility] 6720 (BEAKER) (test code = [facility] [place] 1538) [address] BASIC METABOLIC [id number] 06:55:00 Test Item Value Reference Range Interpretation [...] NOT APPLICABLE FOR DIALYSIS PATIEN TS. POCT-GLUCOSE [id number] 06:28:00 Test Item Value Reference Range Interpretation Comments POC-GLUCOSE METER 153 mg/dL 70-[address] [facility] 6720 (BEAKER) (test code = GILDA Gates [facility] 1538) [address] BASIC METABOLIC [id number] 04:30:00 Test Item Value Reference Range Interpretation [...] S NOT APPLICABLE FOR DIALYSIS PATIEN TS. [id number] 04:28:00 Test Item Value Reference Range Interpretation Comments MAGNESIUM (BEAKER) (test code = 2.2 mg/dL 1.6-2.6 627) [id number] 04:28:00 Test Item Value Reference Range Interpretation Comments PHOSPHORUS (BEAKER) (test code = 7.3 mg/dL 2.3-4.7 H 604) PROTHROMBIN [id number] 03:51:00 Test Item Value Reference Range Interpretation Comments PROTIME (BEAKER) (test code = 15.1 seconds 11.7-14.7 H 759) INR (BEAKER) (test code = 370) 1.2 <=5.9 RECOMMENDED COUMADIN/WARFARIN INR THERAPY RANGESSTANDARD DOSE: 2.0 - 3.0 Includes: PROPHYLAXIS for venous thrombosis, systemic embolization; TREATMENT for venous thrombosis and/or pulmonary embolus.HIGH RISK: Target INR is 2.5-3.5 for patients with mechanical heart valves.CBC W/PLT COUNT & AUTO [id number] 03:44:00 Test Item Value Reference Range Interpretation [...] PERCENT (BEAKER) (test code = 2801) POCT-GLUCOSE [id number] 22:22:00 Test Item Value Reference Range Interpretation Comments POC-GLUCOSE METER 210 mg/dL 70-110 H TESTED AT [place] [address] ([facility]) (test code = [facility] Yajaira [facility] 1538) [address] POCT-GLUCOSE [id number] 15:24:00 Test Item Value Reference Range Interpretation Comments POC-GLUCOSE METER 228 mg/dL 70-110 H TESTED AT [place] [address] ([facility]) (test code = [facility] 1538) [address] CALCIUM, [id number] 13:32:00 Test Item Value Reference Range Interpretation Comments CALCIUM IONIZED (BEAKER) (test 0.81 mmol/L 1.12-1.27 L code = 698) PH, BLOOD (BEAKER) (test code = 7.35 1810) GLUCOSE-STAT [id number] 13:32:00 Test Item Value Reference Range Interpretation Comments GLUCOSE RANDOM (BEAKER) (test code 112 mg/dL 70-110 H = 652) HGB/HCT (H&H) - STAT [id number] 13:32:00 Test Item Value Reference Range Interpretation Comments HEMOGLOBIN (BEAKER) (test code = 6.9 g/dL 12.0-15.0 L 410) HEMATOCRIT (BEAKER) (test code = 20.0 % 36.0-45.0 L 411) SODIUM NA-STAT [id number] 13:30:00 Test Item Value Reference Range Interpretation Comments SODIUM (BEAKER) (test code = 381) 139 meq/L 135-148 POTASSIUM-STAT [id number] 13:30:00 Test Item Value Reference Range Interpretation Comments POTASSIUM (BEAKER) (test code = 4.7 meq/L 3.6-5.5 379) POCT-GLUCOSE [id number] 07:20:00 Test Item Value Reference Range Interpretation Comments POC-GLUCOSE METER 157 mg/dL 70-[address] [facility] 6720 (BEAKER) (test code = [place] 1538) [address] BASIC METABOLIC [id number] 04:11:00 Test Item Value Reference Range Interpretation [...] S NOT APPLICABLE FOR DIALYSIS PATIEN TS. [id number] 04:08:00 Test Item Value Reference Range Interpretation Comments PHOSPHORUS (BEAKER) (test code = 7.3 mg/dL 2.3-4.7 H 604) [id number] 04:08:00 Test Item Value Reference Range Interpretation Comments MAGNESIUM (BEAKER) (test code = 2.1 mg/dL 1.6-2.6 627) HEPATIC FUNCTION [id number] 04:08:00 Test Item Value Reference Range Interpretation [...] code = 7 U/L 6-55 347) PROTHROMBIN [id number] 03:56:00 Test Item Value Reference Range Interpretation Comments PROTIME (BEAKER) (test code = 13.6 seconds 11.7-14.7 759) INR (BEAKER) (test code = 370) 1.0 <=5.9 RECOMMENDED COUMADIN/WARFARIN INR THERAPY RANGESSTANDARD DOSE: 2.0 - 3.0 Includes: PROPHYLAXIS for venous thrombosis, systemic embolization; TREATMENT for venous thrombosis and/or pulmonary embolus.HIGH RISK: Target INR is 2.5-3.5 for patients with mechanical heart valves.CBC W/PLT COUNT & AUTO [id number] 03:50:00 Test Item Value Reference Range Interpretation [...] 0-1 H PERCENT (BEAKER) (test code = 2564) POCT-GLUCOSE [id number] 21:27:00 Test Item Value Reference Range Interpretation Comments POC-GLUCOSE METER 188 mg/dL 70-[address] [facility] 6720 (BEAKER) (test code = GILDA [place] 1538) [address] POCT-GLUCOSE [id number] 17:16:00 Test Item Value Reference Range Interpretation Comments POC-GLUCOSE METER 174 mg/dL 70-[address] [facility] 6720 (BEAKER) (test code = [place] 1538) [address] POCT-GLUCOSE [id number] 12:50:00 Test Item Value Reference Range Interpretation Comments POC-GLUCOSE METER 189 mg/dL 70-110 H TESTED AT [place] [id number] (BEAKER) (test code = [place] 1538) [address] HCG, QUANTITATIVE, [id number] 12:41:00 Test Item Value Reference Range Interpretation Comments GONADOTROPIN, CHORIONIC (HCG) QUANT 2 mIU/mL 0-10 (BEAKER) (test code = 649) Non- Females: <10 mIU/mL Females: Gestation Age Reference Range(mIU/mL) 0.2-1 Week 5-50 1-2 Weeks 50-500 2-3 Weeks 100-5,000 3-4 Weeks 500-10,000 4-5 Weeks 1,000-50,000 5-6 Weeks 10,000-100,000 6-8 Weeks 15,000- 200,000 2-3 Months 10,000-100,000BODY FLUID CELL COUNT WITH DIFFERENTIAL 2018-02-11 11:52:00 Test Item Value Reference Range Interpretation [...] EDTA Tube (test code = 2873) POCT-GLUCOSE [id number] 09:51:00 Test Item Value Reference Range Interpretation Comments POC-GLUCOSE METER 115 mg/dL 70-110 H TESTED AT [facility] 6720 (BEAKER) (test code = GILDA Gates [facility] 1538) [address] [id number] 09:31:00 Test Item Value Reference Range Interpretation Comments FERRITIN (BEAKER) 417 ng/mL 5-275 H This is a corrected (test code = 361) result. Pr evious result was 478 ng/mL on 02/11/2018 at 0452 CDT POCT-GLUCOSE [id number] 05:07:00 Test Item Value Reference Range Interpretation Comments POC-GLUCOSE METER 205 mg/dL 70-[address] [facility] 6720 (BEAKER) (test code = GILDA [facility] 1538) [address] IRON, TIBC, % SAT. (WITHOUT FERRITIN)2018-02-11 04:32:00 Test Item Value Reference Range Interpretation Comments IRON (BEAKER) (test code = 547) 66 ug/dL 40-160 TOTAL IRON BINDING CAPACITY 244 ug/dL 250-450 L (BEAKER) (test code = 769) IRON % SATURATION (2) (BEAKER) 27 % 20-55 (test code = 2590) BASIC METABOLIC [id number] 03:57:00 Test Item Value Reference Range Interpretation [...] S NOT APPLICABLE FOR DIALYSIS PATIEN TS. [id number] 03:56:00 Test Item Value Reference Range Interpretation Comments PHOSPHORUS (BEAKER) (test code = 8.0 mg/dL 2.3-4.7 H 604) [id number] 03:56:00 Test Item Value Reference Range Interpretation Comments MAGNESIUM (BEAKER) (test code = 2.2 mg/dL 1.6-2.6 627) HEPATIC FUNCTION [id number] 03:56:00 Test Item Value Reference Range Interpretation [...] Specimen slightly lipemicCBC W/PLT COUNT & AUTO [id number] 03:47:00 Test Item Value Reference Range Interpretation [...] (BEAKER) (test code = 2801) OCCULT BLOOD, [id number] 22:50:00 Test Item Value Reference Range Interpretation Comments FECAL OCCULT BLOOD (BEAKER) (test Negative Negative code = 618) POCT-GLUCOSE [id number] 21:21:00 Test Item Value Reference Range Interpretation Comments POC-GLUCOSE METER 248 mg/dL 70-110 H TESTED AT [place] [address] (BEAKER) (test code = [place] 1538) [address] POCT-GLUCOSE [id number] 17:51:00 Test Item Value Reference Range Interpretation Comments POC-GLUCOSE METER 187 mg/dL 70-110 H TESTED AT [place] [address] (BEAKER) (test code = GILDA [place] 1538) [address] POCT-GLUCOSE [id number] 17:51:00 Test Item Value Reference Range Interpretation Comments POC-GLUCOSE METER 213 mg/dL 70-110 H TESTED AT [place] [address] (BEAKER) (test code = GILDA Gates [facility] 1538) [address] POCT-GLUCOSE [id number] 14:17:00 Test Item Value Reference Range Interpretation Comments POC-GLUCOSE METER 301 mg/dL 70-110 H Notified Yajaira Thomas MD/TESTED (BEAKER) (test code = AT [facility] [address] [facility] [place] 1538) [facility] [id number] VITAMIN B12 AND [id number] 13:13:00 Test Item Value Reference Range Interpretation Comments VITAMIN B12 (BEAKER) (test code = 267 pg/mL 213-816 774) FOLATE (BEAKER) (test code = 362) 14.4 ng/mL >=7.0 POCT-GLUCOSE [id number] 12:52:00 Test Item Value Reference Range Interpretation Comments POC-GLUCOSE METER 221 mg/dL 70-110 H TESTED AT [place] [id number] (BEAKER) (test code = GILDA Gates [facility] 1538) [address] HEMOGLOBIN [id number] 12:46:00 Test Item Value Reference Range Interpretation Comments HEMOGLOBIN A1C (BEAKER) (test code = 3.8 % 4.3-6.1 L 368) HEMOGLOBIN AND [id number] 12:04:00 Test Item Value Reference Range Interpretation Comments HEMOGLOBIN (BEAKER) (test code = 7.9 GM/DL 11.2-15.7 L 410) HEMATOCRIT (BEAKER) (test code = 24.1 % 34.1-44.9 L 411) CBC W/PLT COUNT & AUTO [id number] 10:51:00 Test Item Value Reference Range Interpretation [...] 3438) Received comment: User comments: Slide comments:T4, [id number] 07:02:00 Test Item Value Reference Range Interpretation Comments FREE T4 (BEAKER) (test code = 655) 0.75 ng/dL 0.70-1.48 [id number] 06:36:00 Test Item Value Reference Range Interpretation Comments PHOSPHORUS (BEAKER) (test code = 9.1 mg/dL 2.3-4.7 HH 604) TSH/FREE T4 IF [id number] 06:23:00 Test Item Value Reference Range Interpretation Comments THYROID STIMULATING HORMONE 13.77 uIU/mL 0.35-4.94 H (BEAKER) (test code = 772) BASIC METABOLIC [id number] 06:17:00 Test Item Value Reference Range Interpretation [...] NOT APPLICABLE FOR DIALYSIS PATIEN TS. LIPID [id number] 06:17:00 Test Item Value Reference Range Interpretation Comments TRIGLYCERIDES (BEAKER) (test code = 726 mg/dL 540) CHOLESTEROL (BEAKER) (test code = 211 mg/dL 631) HDL CHOLESTEROL (BEAKER) (test code 21 mg/dL = 976) Calculated LDL not valid if triglyceride >400 mg/dLTriglyceride Reference Range: Low Risk <150Borderline 150-199 High Risk 200-499 Very High Risk >=500Cholesterol Reference Range: Low Risk <200 Borderline 200-239 High Risk >240HDL Cholesterol Reference Range: Low Risk >=60 High Risk<40LDL Cholesterol Reference Range: Optimal <100 Near Optimal 100-129 Borderline 130-159 High 160-189 Very High >=190 Specimen slightly lipemicMAGNESIUM 2018-02-10 06:13:00 Test Item Value Reference Range Interpretation Comments MAGNESIUM (BEAKER) (test code = 2.4 mg/dL 1.6-2.6 627) HEPATIC FUNCTION [id number] 06:13:00 Test Item Value Reference Range Interpretation [...] Specimen slightly lipemicCREATINE KINASE (CK), TOTAL AND [id number] 06:13:00 Test Item Value Reference Range Interpretation Comments CREATINE KINASE TOTAL (BEAKER) 139 U/L 29-200 (test code = 380) CREATINE KINASE-MB (BEAKER) (test 1.2 ng/mL 0.0-6.6 code = 750) CREATINE KINASE-MB INDEX (BEAKER) 0.9 % (test code = 395) CK-MB Reference Range:<6.7 Normal6.7-10.0 Borderline>10.0 AbnormalC- REACTIVE [id number] 06:13:00 Test Item Value Reference Range Interpretation Comments C-REACTIVE PROTEIN (BEAKER) (test 0.61 mg/dL 0.00-0.50 H code = 676) TROPONIN [id number] 06:07:00 Test Item Value Reference Range Interpretation [...] failure, acidosis, acute neurological disease, and persistent tachyarrhythmia.[id number] 03:47:00 Test Item Value Reference Range Interpretation Comments POTASSIUM (BEAKER) 5.0 meq/L 3.5-5.1 Specimen slightly (test code = 379) hemolyzed LACTIC ACID, VENOUS, WHOLE [id number] 23:11:00 Test Item Value Reference Range Interpretation Comments LACTATE BLOOD VENOUS (2) (BEAKER) 1.0 mmol/L 0.5-2.2 (test code = 2872) Effective 09/13/2015: Units/Reference Range ChangeNew: 0.5-2.2 mmol/L Previous: 5- 20 mg/dLSpecimen slightly lipemicURINALYSIS W/ REFLEX URINE [id number] 22:25:00 Test Item Value Reference Range Interpretation [...] = 2795) RAD, CHEST, 1 VIEW, NON [id number] 22:16:00Dialysis 05/23Reason for exam:- >ABNORMAL LABShould this [...] enlarged. SOFT TISSUES AND BONES: Unremarkable. IMPRESSION:Moderately enlarged cardiac silhouette with pulmonary venous congestion. Signed: Federico [facility]na [facility] Verified Date/Time: 02/09/2018 22:16:37 Reading Location: [address] Consult Reading Room B-TYPE NATRIURETIC FACTOR (BNP)2018-02-09 20:33:00 Test Item Value Reference Range Interpretation Comments B-TYPE NATRIURETIC PEPTIDE (BEAKER) 957 pg/mL 0-100 H (test code = 700) CREATINE KINASE (CK), TOTAL AND [id number] 20:31:00 Test Item Value Reference Range Interpretation Comments CREATINE KINASE TOTAL (BEAKER) 153 U/L 29-200 (test code = 380) CREATINE KINASE-MB (BEAKER) (test 1.5 ng/mL 0.0-6.6 code = 750) CREATINE KINASE-MB INDEX (BEAKER) 1.0 % (test code = 395) CK-MB Reference Range:<6.7 Normal6.7-10.0 Borderline>10.0 AbnormalTROPONIN [id number] 20:31:00 Test Item Value Reference Range Interpretation [...] acute neurological disease, and persistent tachyarrhythmia.BASIC METABOLIC [id number] 18:44:00 Test Item Value Reference Range Interpretation [...] PATIEN TS. CBC W/PLT COUNT & AUTO [id number] 18:22:00 Test Item Value Reference Range Interpretation [...] (test code = 2801) BLOOD CULTURE, AFB [id number] 20:40:00 Test Item Value Reference Range Interpretation Comments CULTURE (BEAKER) (test No acid-fast bacilli code = 1095) isolated in 42 days TISSUE [id number] 13:09:00Surgical Pathology Report Case: [id number] Authorizing Provider: Piero Lee MD Collected: 01/05/20182145 Ordering Location: [place] [address] OP Received: 01/05/20182150 Pathologist: Amy Ortega MD Specimen: Biopsy, Liver, Bx LIVER, TRANSJUGULAR NEEDLE BIOPSIES- BENIGN NON- NEOPLASTIC LIVER PARENCHYMA WITH MILD CHRONIC NONSPECIFIC PORTAL INFLAMMATION- NO TUMOR SEEN- NEGATIVE FOR SIGNIFICANT STEATOSIS- NEGATIVE FOR ADVANCED FIBROSIS OR CIRRHOSIS- MILD HEMOSIDEROSIS- SEE COMMENT Signing [facility] Phone Line: [phone] signed by Amy Ortega MD on 01/18/2018 at 1:09 PMThe liver biopsy shows benign non-neoplastic liver parenchyma. No tumor is seen. No significant steatosis is seen (<2% hepatocytes show fat) . Few lipogranulomas are present, which are considered to befootprints of prior steatosis. No significant portal fibrosis is seen. There is mild chronic portal and lobular inflammation with focal mild interface hepatitis. Considering the normal levels of transaminases and alkaline phosphatase (per EPIC labs dated 12/16/2017), this is favored to be nonspecific. Clinical correlation is recommended. 91415, 21929 A1Oocwf lesions and fatty liverTransjugular needlebiopsyReceived in formalin labeled with patient's name and MRN are five tissue cores ranging from 0.4 cm to 1.6 cm with an average diameter of 0.1 cm. Entirely submitted in A1.Section shows multiple variably sized cores of liver parenchyma with greater than 10 portal tracts and is adequate for evaluation. Trichome stain and reticulin stain shows preserved architecture with scattered portal tracts andpreserved, unremarkable bile ducts. The portal tracts show [...] reticulin, iron and PAS with diastaseANG, TRANSCATHETER [id number] 08:12:00Dialysis 05/23Reason for exam:->fatty liver AND LIVER LESIONS With pressure measurementFINAL REPORT Transjugular liver biopsy, 01/05/2018. History: Fatty liver, kidney transplant workup. Modality: Fluoroscopy. Sedation: Versed 1.5 mg and fentanyl 75 mcg was given intravenously for conscious sedation. Vital signs were monitored throughout the procedure by a nurse, and remained stable. Physician intra-service time was 35 min. Gas Fitter Helper: Herberth Cespedes MD. Upper Extremity Surgeon: MD Carlos. Approach: Right internal jugular vein Estimated blood loss: < 5 cc. Specimen: 4 19-gauge core specimens placed within formalin and sent to pathology. Fluoroscopy Time: 3.0 min.Reference Air Kerma (Ka, r): 150 mGy. Technique: Informed written consent was obtained. Discussion of risks, benefits, and alternatives were made with the patient. The patient expressed understanding and agreed to proceed. A universal timeout was performed prior to starting the procedure. All elementsmaximal sterile barrier technique was utilized for this procedure, including utilization of sterile scrub solution for skin prep, a large sterile sheet to cover the areas of the patient that were not prepped, and hand hygiene, mask, head covering, and sterile gown for performing radiologist and scrub technologist. Ultrasound evaluation showed a patent and compressible right right internal jugular vein, which was punctured under direct real-time ultrasound guidance with a micropuncture needle. An ultr asound image was saved to PACS. A 0.018 inch wire was placed through the needle into the right atrium. A 4 Zimbabwean micropuncture sheath was placed. A 0.035 inch J-wire was placed through the micropuncture sheath and the sheath was exchanged for a 9 Zimbabwean sheath. A 5 Zimbabwean angled tip catheter was usedto select the right hepatic vein. Venogram was performed. Pressures were obtained through the catheter with measurements as follows: wedged hepatic - 16 mmHg, free hepatic - 13, and right atrium - 10. A long metal reinforced 7 Zimbabwean sheath was placed through the 9 Zimbabwean sheath into the right hepaticvein. A long 19-gauge core biopsy needle was then placed through sheath with 4 core samples obtainedwithin the liver. The needle and sheath were removed. Hemostasis was obtained with manual compression. The patient tolerated the procedure well and left the department in the same condition. Findings:Venogram demonstrates patent right hepatic vein and intrahepatic IVC. Impression: Successful, uncomplicated transjugular liver biopsy, using fluoroscopic guidance and conscious sedation. HVPG 3 mmHg.Signed: Herberth Cespedesort Verified Date/Time: 01/06/2018 08:12:10 Reading Location: [facility] P048 Angio Body Reading Room BASIC METABOLIC PANEL 2018-01-05 10:46:00 Test Item Value Reference Range Interpretation [...] S NOT APPLICABLE FOR DIALYSIS PATIEN TS. [id number] 10:30:00 Test Item Value Reference Range Interpretation Comments PROTIME (BEAKER) (test code = 14.6 seconds 11.7-14.7 759) INR (BEAKER) (test code = 370) 1.1 <=5.9 PARTIAL THROMBOPLASTIN TIME 29.2 seconds 22.5-36.0 (BEAKER) (test code = 760) RECOMMENDED COUMADIN/WARFARIN INR THERAPY RANGESSTANDARD DOSE: 2.0 - 3.0 Includes: PROPHYLAXIS for venous thrombosis, systemic embolization; TREATMENT for venous thrombosis and/or pulmonary embolus.HIGH RISK: Target INR is 2.5-3.5 for patients with mechanical heart valves.CBC W/PLT COUNT & AUTO [id number] 10:15:00 Test Item Value Reference Range Interpretation [...] code = 2801) ANTI-MITOCHONDRIAL AB, REFLEX TO [id number] 09:47:00 Test Item Value Reference Range Interpretation Comments SCAN RESULT (test code = 4922677) FUNGUS CULTURE, BLOOD (ISOLATOR)2017-12-27 07:40:00 Test Item Value Reference Range Interpretation Comments CULTURE (BEAKER) (test No fungus isolated code = 1095) PERITONEAL DIALYSIS EFFLUENT [id number] 08:47:00 Test Item Value Reference Range Interpretation Comments CULTURE (BEAKER) (test code No growth = 1095) GRAM STAIN RESULT (BEAKER) No WBCs (test code = 1123) GRAM STAIN RESULT (BEAKER) No organisms seen (test code = 23618) DOUBLE-STRANDED DNA (DSDNA) [id number] 08:41:00 Test Item Value Reference Range Interpretation Comments ANTI-DNA DS (BEAKER) (test code = Negative 1055) RHEUMATOID FACTOR AB, REFLEX TO [id number] 05:40:00 Test Item Value Reference Range Interpretation Comments RHEUMATOID FACTOR (BEAKER) (test Negative code = 573) BLOOD [id number] 00:00:00 Test Item Value Reference Range Interpretation Comments CULTURE (BEAKER) (test No growth in 5 days code = 1095) BLOOD [id number] 00:00:00 Test Item Value Reference Range Interpretation Comments CULTURE (BEAKER) (test No growth in 5 days code = 1095) PERITONEAL DIALYSIS EFFLUENT [id number] 11:45:00 Test Item Value Reference Range Interpretation Comments CULTURE (BEAKER) (test code No growth = 1095) GRAM STAIN RESULT (BEAKER) 1+ WBCs (test code = 1123) GRAM STAIN RESULT (BEAKER) No organisms seen (test code = 56316) POCT-GLUCOSE [id number] 11:44:00 Test Item Value Reference Range Interpretation Comments POC-GLUCOSE METER 260 mg/dL 70-[address] [facility] 67[address] (AKER) (test code = [place] 1538) [address] ANTI-NUCLEAR ANTIBODY (CECI)2017-12-20 09:35:00 Test Item Value Reference Range Interpretation Comments ANTI-NUCLEAR ANTIBODY (CECI) (BEAKER) Negative Negative (test code = 418) Test performed by IFA method.Test performed by IFA method.POCT-GLUCOSE METER 2017-12-20 07:53:00 Test Item Value Reference Range Interpretation Comments POC-GLUCOSE METER 175 mg/dL 70-[address] [facility] 67[address] (BEAKER) (test code = [place] 1538) [address] BASIC METABOLIC [id number] 07:04:00 Test Item Value Reference Range Interpretation [...] S NOT APPLICABLE FOR DIALYSIS PATIEN TS. [id number] 06:58:00 Test Item Value Reference Range Interpretation Comments ALPHA-1 ANTITRYPSIN (BEAKER) 179.70 mg/dL 90.00-200.00 (test code = 502) CBC W/PLT COUNT & AUTO [id number] 06:23:00 Test Item Value Reference Range Interpretation [...] % 0-1 PERCENT (BEAKER) (test code = 2807) POCT-GLUCOSE [id number] 23:18:00 Test Item Value Reference Range Interpretation Comments POC-GLUCOSE METER 247 mg/dL 70-[address] [facility] 67[address] (BEAKER) (test code = [place] 1538) [address] HEPATITIS B SURFACE [id number] 21:39:00 Test Item Value Reference Range Interpretation Comments HEPATITIS B SURFACE ANTIGEN (2) Nonreactive Nonreactive (BEAKER) (test code = 2585) HEPATITIS B SURFACE [id number] 21:39:00 Test Item Value Reference Range Interpretation Comments HEPATITIS B SURFACE ANTIBODY 305.8 mIU/mL <8.0 H (AKER) (test code = 647) HEPATITIS C [id number] 21:39:00 Test Item Value Reference Range Interpretation Comments HEPATITIS C ANTIBODY (BEAKER) Nonreactive Nonreactive (test code = 367) HEPATITIS B CORE ANTIBODY, [id number] 21:39:00 Test Item Value Reference Range Interpretation Comments HEPATITIS B CORE TOTAL ANTIBODY Nonreactive Nonreactive (BEAKER) (test code = 497) HEPATITIS A ANTIBODY, [id number] 21:39:00 Test Item Value Reference Range Interpretation Comments HEPATITIS A IGG ANTIBODY (BEAKER) Nonreactive Nonreactive (test code = 2797) EBV VIRAL [id number] 19:17:00 Test Item Value Reference Range Interpretation Comments EBV VIRAL LOAD - Negative or below the NEGATIVE (AKER) (test linear range of the code = 2559) assay (<500 copies/mL) This assay was performed by real-time PCR for the detection of the Sedrick-Shay virus (EBV) gene EBNA-1. The test is composed of (1) DNA extraction from patient specimen, and (2) real-time PCR amplification and detection with IJIP-2-wnxipfil primers and probes. A well-conserved region of the EBNA-1 gene is targeted, along with an internal control sequence used to confirm PCR amplification. Asymptomatic carriers and viral genetic variation, among other factors, can affect the accuracy of nucleic acidtesting; therefore, results should be interpreted in light of clinical data.This test was developed and its performance characteristics determined by the [facility] Pathology Department,Section of Molecular Pathology. It has not been cleared or approved by the U.S. Food and Drug Administration (FDA), since FDA approval is not required for clinical use of the test. Validation was done as required by The Clinical Laboratory Improvement Amendments of 1988.POCT-GLUCOSE METER 2017-12-19 18:24:00 Test Item Value Reference Range Interpretation Comments POC-GLUCOSE METER 166 mg/dL 70-[address] [facility] 67[address] ([facility]) (test code = [place] 1538) [address] CT, CHEST, WITH [id number] 16:59:00Dialysis 05/23FINAL REPORT CT scan of the [...] and/or use of iterative reconstruction technique. FINDINGS: The mediastinum [...] with no endobronchial lesions. The pulmonary parenchyma demonstrates multiple bilateral groundglass and nodular pulmonary opacities measuring [...] lesions. Please for to recent CT scan of the abdomen. Signed: Js Ludwig MDR[facility]ort Verified Date/Time: 12/19/2017 16:59:46 Reading Location: [address] Consult Reading Room POCT-GLUCOSE [id number] 14:08:00 Test Item Value Reference Range Interpretation Comments POC-GLUCOSE METER 198 mg/dL 70-[address] [facility] 67[address] (BEAKER) (test code = [place] 1538) [address] BODY FLUID CELL COUNT WITH [id number] 13:55:00 Test Item Value Reference Range Interpretation [...] code = 2873) HIV-1 ANTIGEN WITH HIV-1/2 [id number] 13:22:00 Test Item Value Reference Range Interpretation [...] 20-55 (test code = 2590) HEMOGLOBIN AND [id number] 12:40:00 Test Item Value Reference Range Interpretation Comments HEMOGLOBIN (BEAKER) (test code = 7.2 GM/DL 11.2-15.7 L 410) HEMATOCRIT (BEAKER) (test code = 22.5 % 34.1-44.9 L 411) ANTI-NUCLEAR ANTIBODY (CECI)2017-12-19 10:57:00 Test Item Value Reference Range Interpretation Comments ANTI-NUCLEAR ANTIBODY (CECI) (BEAKER) Negative Negative (test code = 418) Test performed by IFA method.Test performed by IFA method.FLOW CYTOMETRY [id number] 09:53:00 Test Item Value Reference Range Interpretation Comments FLOW CYTOMETRY RESULT See Separate Report POINTER (BEAKER) (test code = 9690) FLOW CYTOMETRY AP CASE # [id number] (BEAKER) (test code = 6752) POCT-GLUCOSE [id number] 08:01:00 Test Item Value Reference Range Interpretation Comments POC-GLUCOSE METER 187 mg/dL 70-[address] [facility] 67[address] (BEAKER) (test code = [place] 1538) [address] BASIC METABOLIC [id number] 07:41:00 Test Item Value Reference Range Interpretation [...] PATIEN TS. CBC W/PLT COUNT & AUTO [id number] 07:39:00 Test Item Value Reference Range Interpretation [...] PERCENT (BEAKER) (test code = 2801) RETICULOCYTE [id number] 07:20:00 Test Item Value Reference Range Interpretation Comments RETICULOCYTE COUNT PCT (BEAKER) (test 2.3 % 0.5-1.7 H code = 575) OCCULT BLOOD, [id number] 00:42:00 Test Item Value Reference Range Interpretation Comments FECAL OCCULT BLOOD (BEAKER) (test Negative Negative code = 618) POCT-GLUCOSE [id number] 21:17:00 Test Item Value Reference Range Interpretation Comments POC-GLUCOSE METER 237 mg/dL 70-[address] [facility] 67[address] (BEAKER) (test code = [place] 1538) [address] CMV PCR, [id number] 20:50:00 Test Item Value Reference Range Interpretation [...] management of antiviral therapy. For treatment of CMV infection due to reactivation in transplant recipients, a threshold between 4,000 and 5,000 copies/mLis suggested. For treatment of primary CMV infection, a lower threshold can be used.CMV infection may also be monitored using weekly serial measurements. Serial measurements of CMV DNA viral load can be evaluated by identifying a 10-fold change, as [...] and its performance characteristics determined by the [facility] Pathol ogy Department, Section of Molecular Pathology. It has not been cleared or approved by the U.S. Foodand Drug Administration (FDA), since FDA approval is not required for clinical use of the test. Validation was done as required by The Clinical Laboratory Improvement Amendments of 1988.CORTISOL,60 [id number] 18:35:00 Test Item Value Reference Range Interpretation [...] cortex of the adrenal glands to release co rtisol. Cortisol is a primary hormone, which aids the body's metabolism of fats, carbohydrates, and protein as well as sodium and potassium regulation.ACTH Stimulation Test: Exogenous administration ofbiologically active ACTH stimulates the secretion of cortisol from the adrenal gland. This test is used to evaluate adrenal function by measuring cortisol levels at baseline and at 30 and 60 minutes after the administration of 250 micrograms of cosyntropin (Cortrosyn). Patients who have received exogenous corticosteroids immediately prior to performing the ACTH Stimulation Test will often have elevated baseline cortisol levels, which may lead to erroneous interpretation of test results. The notable exception is with dexamethasone.Normal Response: An increase in cortisol after stimulation by ACTH isnormal. Post-stimulation cortisol concentration should be greater than 20 mcg/dL or the rate of risefrom baseline cortisol should be greater than or equal to 9 mcg/dL.Patients with sepsis or septic shock: According to a study by Efren et al (CATHERINE 2000,283(8):1038-45), the ACTH Stimulation Test provides important prognostic information. This study defined 3 groups of patients with sepsis or septic shock: 1. Good Survival: Low basal cortisol (<or=34 mcg/dL) and high ACTH response (>9mcg/dL) 2.Intermediate Survival: Low basal cortisol (<34 mcg/dL) and low response to ACTH (<or=9 mcg/dL)OR High basal cortisol (>34 mcg/dL) or high ACTH response (>9 mcg/dL) 3. Poor Survival: High basal cortisol (>34 mcg/dL) and low ACTH response (<or=9 mcg/dL).Treatment of patients with relative adrenal dysfunction may be indicated based on test results and the clinical condition of the patient. Additional information, including treatment recommendations, is available in critically ill patients, approved by the Pharmacy, Nutrition, and Therapeutics Committee on 04/20/2004 and available through the Pharmacy Policy and Procedure Section on The Source.Do not run this test if systemic hydroco rtisone, methylprednisolone, prednisolone or prednisone has been administered within the past 24 hours. Draw baseline cortisol level just prior to cosyntropin administration. Administer cosyntropin 0.25 mg diluted in 2-5 mL of normal saline slow IV Push over a period of 2 minutes. Draw serum cortisol level 30 minutes after cosyntropin administration. Draw serum cortisol level 60 minutes after cosyntropin administration.CORTISOL,30 [id number] 17:48:00 Test Item Value Reference Range Interpretation [...] cortex of the adrenal glands to release co rtisol. Cortisol is a primary hormone, which aids the body's metabolism of fats, carbohydrates, and protein as well as sodium and potassium regulation.ACTH Stimulation Test: Exogenous administration ofbiologically active ACTH stimulates the secretion of cortisol from the adrenal gland. This test is used to evaluate adrenal function by measuring cortisol levels at baseline and at 30 and 60 minutes after the administration of 250 micrograms of cosyntropin (Cortrosyn). Patients who have received exogenous corticosteroids immediately prior to performing the ACTH Stimulation Test will often have elevated baseline cortisol levels, which may lead to erroneous interpretation of test results. The notable exception is with dexamethasone.Normal Response: An increase in cortisol after stimulation by ACTH isnormal. Post-stimulation cortisol concentration should be greater than 20 mcg/dL or the rate of risefrom baseline cortisol should be greater than or equal to 9 mcg/dL.Patients with sepsis or septic shock: According to a study by Efren et al (CATHERINE 2000,283(8):1038-45), the ACTH Stimulation Test provides important prognostic information. This study defined 3 groups of patients with sepsis or septic shock: 1. Good Survival: Low basal cortisol (<or=34 mcg/dL) and high ACTH response (>9mcg/dL) 2.Intermediate Survival: Low basal cortisol (<34 mcg/dL) and low response to ACTH (<or=9 mcg/dL)OR High basal cortisol (>34 mcg/dL) or high ACTH response (>9 mcg/dL) 3. Poor Survival: High basal cortisol (>34 mcg/dL) and low ACTH response (<or=9 mcg/dL).Treatment of patients with relative adrenal dysfunction may be indicated based on test results and the clinical condition of the patient. Additional information, including treatment recommendations, is available in critically ill patients, approved by the Pharmacy, Nutrition, and Therapeutics Committee on 04/20/2004 and available through the Pharmacy Policy and Procedure Section on The Source.Do not run this test if systemic hydroco rtisone, methylprednisolone, prednisolone or prednisone has been administered within the past 24 hours. Draw baseline cortisol level just prior to cosyntropin administration. Administer cosyntropin 0.25 mg diluted in 2-5 mL of normal saline slow IV Push over a period of 2 minutes. Draw serum cortisol level 30 minutes after cosyntropin administration. Draw serum cortisol level 60 minutes after cosyntropin administration.CORTISOL,[id number] 17:17:00 Test Item Value Reference Range Interpretation Comments CORTISOL, BASELINE (BLASAKER) (test 5.2 ug/dL code = 1803) ACTH STIMULATION TEST INTERPRETATION GUIDELINES(Synonyms: Cortrosyn Test, Cosyntropin or Corticotropin Stimulation Test)Adenocorticotropic hormone (ACTH)is a tropic hormone, made in the pituitary gland, which travels trhough the bloodstream and stimulates the cortex of the adrenal glands to release co rtisol. Cortisol is a primary hormone, which aids the body's metabolism of fats, carbohydrates, and protein as well as sodium and potassium regulation.ACTH Stimulation Test: Exogenous administration ofbiologically active ACTH stimulates the secretion of cortisol from the adrenal gland. This test is used to evaluate adrenal function by measuring cortisol levels at baseline and at 30 and 60 minutes after the administration of 250 micrograms of cosyntropin (Cortrosyn). Patients who have received exogenous corticosteroids immediately prior to performing the ACTH Stimulation Test will often have elevated baseline cortisol levels, which may lead to erroneous interpretation of test results. The notable exception is with dexamethasone.Normal Response: An increase in cortisol after stimulation by ACTH isnormal. Post-stimulation cortisol concentration should be greater than 20 mcg/dL or the rate of risefrom baseline cortisol should be greater than or equal to 9 mcg/dL.Patients with sepsis or septic shock: According to a study by Efren et al (CATHERINE 2000,283(8):1038-45), the ACTH Stimulation Test provides important prognostic information. This study defined 3 groups of patients with sepsis or septic shock: 1. Good Survival: Low basal cortisol (<or=34 mcg/dL) and high ACTH response (>9mcg/dL) 2.Intermediate Survival: Low basal cortisol (<34 mcg/dL) and low response to ACTH (<or=9 mcg/dL)OR High basal cortisol (>34 mcg/dL) or high ACTH response (>9 mcg/dL) 3. Poor Survival: High basal cortisol (>34 mcg/dL) and low ACTH response (<or=9 mcg/dL).Treatment of patients with relative adrenal dysfunction may be indicated based on test results and the clinical condition of the patient. Additional information, including treatment recommendations, is available in critically ill patients, approved by the Pharmacy, Nutrition, and Therapeutics Committee on 04/20/2004 and available through the Pharmacy Policy and Procedure Section on The Source.Do not run this test if systemic hydroco rtisone, methylprednisolone, prednisolone or prednisone has been administered within the past 24 hours. Draw baseline cortisol level just prior to cosyntropin administration. Administer cosyntropin 0.25 mg diluted in 2-5 mL of normal saline slow IV Push over a period of 2 minutes. Draw serum cortisol level 30 minutes after cosyntropin administration. Draw serum cortisol level 60 minutes after cosyntropin administration.POCT-GLUCOSE [id number] 17:16:00 Test Item Value Reference Range Interpretation Comments POC-GLUCOSE METER 183 mg/dL 70-110 H TESTED AT [place] [address] ([facility]) (test code = [place] 1538) [address] FLOW [id number] 16:58:00Flow Cytometry Report Case: [id number] Authorizing Provider: Peyton Ortiz MD Collected: 12/18/2017 0443 Ordering Location: [address] Received: 12/18/2017 0724 Service Pathologist: Kassidy Tejada MD Specimen: Other PERIPHERAL BLOOD, FLOW CYTOMETRY:-NO INCREASE IN MYELOBLASTS-NO MONOTYPIC B CELL POPULATION-T CELLS WITH REDUCED CD4:CD8 RATIO (0.8)-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 Lymphocytes: Bright CD45+ lymphocytes comprise 37% of total cells. T cells show a CD4:CD8 ratio of 0.8 with normal expression of the jiang T cell markers CD2 and CD7; a subset of T cells show dimmer CD5 expression, a finding which may reflect a reactive [...] of cells analyzed, and CD14+ monocytes comprise 5.7%of total cells.The remaining events analyzed represent nonviable cells, non- hematolymphoid cells, and debris.These tests were developed and their performance characteristics determined by [facility]. They have not been cleared or approved by the U.S. Food and Drug Administration.The FDA has determined that such clearance or approval is not necessary. It should not be regarded as investigational or for research. This laboratory is certified under the Clinical Laboratory Improvement Amendments of 1988 ("CLIA") as qualified to perform high-complexity clinical testing.POCT-GLUCOSE METER 2017-12-18 12:03:00 Test Item Value Reference Range Interpretation Comments POC-GLUCOSE METER 226 mg/dL 70-[address] [facility] [address] ([place]) (test code = [place] 1538) [address] POCT-GLUCOSE [id number] 10:58:00 Test Item Value Reference Range Interpretation Comments POC-GLUCOSE METER 190 mg/dL 70-[address] [facility] [address] (BEAKER) (test code = [place] 1538) [address] [id number] 06:19:00 Test Item Value Reference Range Interpretation Comments CORTISOL, TOTAL (BEAKER) (test code 6.5 ug/dL 3.7-19.4 = 2755) BASIC METABOLIC [id number] 05:54:00 Test Item Value Reference Range Interpretation [...] PATIEN TS. CBC W/PLT COUNT & AUTO [id number] 05:42:00 Test Item Value Reference Range Interpretation [...] PERCENT (BEAKER) (test code = 2801) CRYPTOCOCCAL [id number] 23:51:00 Test Item Value Reference Range Interpretation Comments CRYPTOCOCCAL ANTIGEN, SERUM Negative Negative, Interference (BEAKER) (test code = 1828) POCT-GLUCOSE [id number] 22:27:00 Test Item Value Reference Range Interpretation Comments POC-GLUCOSE METER 178 mg/dL 70-[address] [facility] [address] ([facility]) (test code = [place] 1538) [address] [id number] 19:41:00 Test Item Value Reference Range Interpretation Comments HAPTOGLOBIN (BEAKER) (test code = 190 mg/dL 14-258 366) POCT-GLUCOSE [id number] 18:17:00 Test Item Value Reference Range Interpretation Comments POC-GLUCOSE METER 169 mg/dL 70-[address] [facility] [address] (BEAKER) (test code = [place] 1538) [address] CARCINOEMBRYONIC ANTIGEN (CEA)2017-12-17 16:36:00 Test Item Value Reference Range Interpretation Comments CARCINOEMBRYONIC ANTIGEN (BEAKER) 1.3 ng/mL 0.0-5.0 (test code = 685) [id number] 16:36:00 Test Item Value Reference Range Interpretation Comments FERRITIN (BEAKER) (test code = 361) 266 ng/mL 5-275 ALPHA FETOPROTEIN (AFP), TUMOR [id number] 16:36:00 Test Item Value Reference Range Interpretation Comments ALPHA-FETOPROTEIN (BEAKER) (test 2.7 ng/mL <10.0 code = 1094) VITAMIN B12 AND [id number] 16:36:00 Test Item Value Reference Range Interpretation Comments VITAMIN B12 (BEAKER) (test code = 261 pg/mL 213-816 774) FOLATE (BEAKER) (test code = 362) 3.2 ng/mL >=7.[address], ABDOMEN, LIVER EVALUATION, WITHOUT / WITH IV [id number] 16:10:00 Dialysis 05/23Reason for exam:->TRIPLE PHASE,FOLLOW UP LESIONSFINAL REPORT ABDOMINAL AND PELVIS CT DATED 12/17/2017 COMPARISON: October 29, 2017 CLINICAL INFORMATION: TRIPLE PHASE,FOLLOW UP LESIONS TECHNIQUE: Axial images of the abdomen and pelviswere obtained from diaphragm to the pubic symphysis with and without intravenous contrast. This examwas performed according to our departmental dose-optimization program, which includes automated exposure control, adjustment of the mA and/or kV according to patient size and/or use of interactive reconstruction technique. COMMENT: Nonspecific subcentimeter nodules are seen in both lung bases since prior study. There is bibasilar subsegmental atelectasis. Liver and spleen are enlarged. Liver measuresapproximately 23 cm in the right midclavicular line. Spleen measures 12.6 x 5.4 x 12.6 cm. The splenic, superior mesenteric, portal, and hepatic veins are patent. Main portal vein measures 1.8 cm in diameter. A 1.4 cm stable hypodense lesion seen in the right hepatic dome. The other previously noted he pati lesions are not visualized. There is diffusely decreased attenuation in the segment IVb of theliver adjacent to the falciform ligament suggestive of focal fatty hepatic infiltrate. Gallbladder is surgically absent. No biliary dilatation is noted. Pancreas and adrenals are unremarkable. Both kidneys are atrophic consistent with end-stage renal disease. A transplant kidney is seen in the right lower quadrant abdomen. The small and large bowel are suboptimally evaluated secondary to lack of GI contrast. Diverticular disease is seen in the large bowel without diverticulitis. Small bowel is normal in caliber. Appendix is not visualized. Trace amount of ascites seen in the abdomen. Subcentimeter l ymph nodes are seen in the periaortic and aortocaval retroperitoneum. IMPRESSION: 1. Hepatosplenomegaly.2. Stable hypodense lesion in the dome of the right hepatic lobe. Unable to visualize the rest ofthe previously noted liver lesions.3. End-stage renal disease with transplanted kidney.4. Trace ascites.5. Nonspecific nodular lesions in both lung bases no since prior study. Signed: Catrachita Cabral MDReport Verified Date/Time: 12/17/2017 16:10:53 Reading Location: [facility] B1 C013Y CT Body Reading Room POCT-GLUCOSE [id number] 14:37:00 Test Item Value Reference Range Interpretation Comments POC-GLUCOSE METER 146 mg/dL 70-[address] [facility] [address] (BEAKER) (test code = [facility] 1538) [address] BASIC METABOLIC [id number] 14:19:00 Test Item Value Reference Range Interpretation [...] % 20-55 L (test code = 2590) [id number] 14:13:00 Test Item Value Reference Range Interpretation Comments PHOSPHORUS (BEAKER) (test code = 6.8 mg/dL 2.3-4.7 H 604) LACTATE DEHYDROGENASE (LDH)2017-12-17 14:13:00 Test Item Value Reference Range Interpretation Comments LACTATE DEHYDROGENASE (BEAKER) (test 162 U/L 125-220 code = 635) [id number] 14:13:00 Test Item Value Reference Range Interpretation Comments LIPASE (BEAKER) (test code = 749) 51 U/L 8-78 RETICULOCYTE [id number] 13:58:00 Test Item Value Reference Range Interpretation Comments RETICULOCYTE COUNT PCT (BEAKER) (test 2.2 % 0.5-1.7 H code = 575) POCT-GLUCOSE [id number] 11:37:00 Test Item Value Reference Range Interpretation Comments POC-GLUCOSE METER 169 mg/dL 70-[address] [facility] [address] (BEAKER) (test code = [place] 1534) [address] POCT-GLUCOSE [id number] 07:43:00 Test Item Value Reference Range Interpretation Comments POC-GLUCOSE METER 152 mg/dL 70-[address] [facility] [address] (BEAKER) (test code = [place] 1538) [address] CBC W/PLT COUNT & AUTO [id number] 05:47:00 Test Item Value Reference Range Interpretation [...] (BEAKER) (test code = 2801) BASIC METABOLIC [id number] 00:37:00 Test Item Value Reference Range Interpretation [...] PATIEN TS. BODY FLUID CELL COUNT WITH [id number] 23:42:00 Test Item Value Reference Range Interpretation [...] EDTA Tube (test code = 2873) POCT-GLUCOSE [id number] 21:42:00 Test Item Value Reference Range Interpretation Comments POC-GLUCOSE METER 130 mg/dL 70-[address] [facility] [address] (BEAKER) (test code = [facility] 1538) [address] POCT-GLUCOSE [id number] 19:41:00 Test Item Value Reference Range Interpretation Comments POC-GLUCOSE METER 103 mg/dL 70-[address] [facility] 67[address] (BEAKER) (test code = [facility] 1538) [address] BASIC METABOLIC [id number] 17:51:00 Test Item Value Reference Range Interpretation [...] PATIEN TS. RAD, CHEST, 1 VIEW, NON [id number] 17:44:00Dialysis 05/23Reason for exam:- >FEVERReason for exam:->HYPOTENSIONShould this be performed at the bedside?->YesFINAL REPORT INDICATION: FEVERHYPOTENSION TECHNIQUE: Chest radiograph, single view, portable technique. FINDINGS / IMPRESSION: No discrete consolidation that would clearly indicate pneumonia.Enlarged heart shadow.No pneumothorax or pleural effusion demonstrated.Osseous structures unremarkable. Signed: Cody Pradhan MDReport Verified Date/Time: 12/16/2017 17:44:26 Reading Location: [facility] C013X Ortho Consult Reading Room LACTIC ACID, VENOUS, WHOLE [id number] 17:42:00 Test Item Value Reference Range Interpretation Comments LACTATE BLOOD VENOUS 1.3 mmol/L 0.5-2.2 Specime n slightly (2) (BEAKER) (test hemolyzed code = 2872) Effective 09/13/2015: Units/Reference Range ChangeNew: 0.5-2.2 mmol/L Previous: 5- 20 mg/dLURINALYSIS W/ REFLEX URINE [id number] 17:40:00 Test Item Value Reference Range Interpretation [...] SOURCE(BEAKER) (test code = 2795) COMPREHENSIVE METABOLIC [id number] 16:37:00 Test Item Value Reference Range Interpretation [...] PATIEN TS. CBC W/PLT COUNT & AUTO [id number] 16:15:00 Test Item Value Reference Range Interpretation [...] (BEAKER) (test code = 2801) CMV PCR, [id number] 14:34:00 Test Item Value Reference Range Interpretation Comments CMV VIRAL LOAD - Negative or below the NEGATIVE (BEAKER) (test linear range of the code = 4368) assay (<375 copies/mL) Cytomegalovirus (CMV) infection can cause significant disease in immunosuppressed patients. However,it is common for CMV to manifest as a limited infection which is of no clinical significance in immunosuppressed patients or in healthy individuals.Viral load measurements are helpful to identify clinical CMV infection and to guide the pre-emptive management of antiviral therapy. For treatment of CMV infection due to reactivation in transplant recipients, a threshold between 4,000 and 5,000 copies/mLis suggested. For treatment of primary CMV infection, a lower threshold can be used.CMV infection may also be monitored using weekly serial measurements. Serial measurements of CMV DNA viral load can be evaluated by identifying a 10-fold change, as [...] and its performance characteristics determined by the [facility] Pathol ogy Department, Section of Molecular Pathology. It has not been cleared or approved by the U.S. Foodand Drug Administration (FDA), since FDA approval is not required for clinical use of the test. Validation was done as required by The Clinical Laboratory Improvement Amendments of 1988.CT, ABDOMEN, WITHOUT 2017-10-29 12:18:00Dialysis 05/23FINAL REPORT CT scan of the abdomen. CLINICAL HISTORY: Assess hepatic lesions. COMPARISON STUDY: April 29, 2017. TECHNIQUE: Contiguous helical slices were acquired through the abdomen both pre and post administration of intravenous [...] liver demonstrates a stable multifocal lesions. They includea 1.7 cm hypervascular lesion in the medial [...] demonstrate washout. There is a stable tiny low-attenuation lesion in the posterior segment of the right lobe, possibly a tiny cyst. No new lesions are seen. Cholecystectomy clips are noted with no biliary dilatation. There is mild ascites. The spleen is enlarged measuring 13.5 cm in length. The pancreas and adrenal glands are unremarkable.Both kidneys are atrophic in nature. There are no dilated loops of bowel seen to suggest obstruction. Diverticulosis is seen without evidence of diverticulitis. A transplant kidney is partially seen inthe right iliac fossa. The aorta is normal in caliber. Atherosclerosis is seen. Bone windows demonstrate degenerative changes. IMPRESSION:1. Multifocal hepatic lesions which are stable from previous. The differential is unchanged and includes adenomas and malignant lesions.2. Status post cholecystectomy.3. Mild ascites. Splenomegaly.4. Atrophic penobscot kidneys and partially visualized transplant kidney.5. Overall, no significant change. Signed: Js Ludwig MDReport Verified Date/Time: 10/29/2017 12:18:10 Reading Location: [address] Radiology Reading Room BASIC METABOLIC [id number] 10:57:00 Test Item Value Reference Range Interpretation [...] S NOT APPLICABLE FOR DIALYSIS PATIEN TS. [id number] 10:12:00 Test Item Value Reference Range Interpretation Comments PROTIME (BEAKER) (test code = 14.1 seconds 11.7-14.7 759) INR (BEAKER) (test code = 370) 1.1 <=5.9 PARTIAL THROMBOPLASTIN TIME 29.5 seconds 22.5-36.0 (BEAKER) (test code = 760) RECOMMENDED COUMADIN/WARFARIN INR THERAPY RANGESSTANDARD DOSE: 2.0 - 3.0 Includes: PROPHYLAXIS for venous thrombosis, systemic embolization; TREATMENT for venous thrombosis and/or pulmonary embolus.HIGH RISK: Target INR is 2.5-3.5 for patients with mechanical heart valves.CBC W/PLT COUNT & AUTO [id number] 10:07:00 Test Item Value Reference Range Interpretation [...] (BEAKER) (test code = 2801) CT, ABDOMEN, [id number] 11:49:00Dialysis 05/23Liver protocol, triple phase CT attn: LiverFINAL REPORT TECHNIQUE: CT of the abdomen WITHOUT and WITH intravenous contrastand WITHOUT oral contrast. Dose modulation, iterative reconstruction, and/or weight-based adjustmentof the mA/kV was utilized to reduce the [...] *1.8 cm in segment VIII (image 16)*1.6 cm insegment VII (image 18)*1.7 cm in segment IVB (image 47)*1 cm in segment V (image 51)*1.1 cm in segment V (image 68)*1 cm in segment V (image 79) BILIARY: Prior cholecystectomy. No biliary ductal dilatation.SPLEEN: Mildly enlarged, measuring 13.5 cm in the craniocaudal dimension.PANCREAS: No focal masses or ductal dilatation. ADRENALS: No adrenal nodules.KIDNEYS/URETERS: Atrophic penobscot kidneys bilaterally. Transplant kidney in the right lower quadrant. No hydronephrosis or stones. Few subcentimeter h ypodensities in the penobscot right kidney are too small to characterize. [...] likely related to peritoneal dialysis. Signed: Steve Reideport Verified Date/Time: 04/29/2017 11:49:17 Reading Location: [facility] Diagnostic Imaging Reading Room - [place] [address] AB SPECIFICITY CLASS [id number] 14:59:00 Test Item Value Reference Range Interpretation Comments DATE OF SERUM (BEAKER) 143374 (test code = 2289) SERUM # (BEAKER) (test 122675 code = 2290) AB SPECIFICITY CLASS II See Scanned Report (BEAKER) (test code = 2430) HLA [id number] 11:55:00 Test Item Value Reference Range Interpretation [...] = 2583) FLOW PRA CLASS I AND [id number] 09:43:00 Test Item Value Reference Range Interpretation Comments DATE OF SERUM (BEAKER) 013886 (test code = 2289) SERUM # (BEAKER) (test 815040 code = 2290) FLOW PRA CLASS I AND II See Scanned Report (test code = 2421) HLA TESTING (EXTERNAL)2017-03-29 14:00:00 Test Item Value Reference Range Interpretation Comments HLA TESTING (EXTERNAL) See Separate Report (test code = 3209) CT, CTA [id number] 16:00:00Dialysis 05/23Addendum BeginsREPORT STATUS:A Addendum: I agree with the previously described non vascular findings by Dr. Ventura with the following additions. There are two enhancing lesions identified within the superior right hepatic lobe measuring 1.4 and 1.5 cm. These lesions are only included on the late arterial phase and incompletely characterized on this examination. Further evaluationwith dedicated contrast enhanced liver CT or MRI is recommended. Scattered abdominopelvic ascites, not unexpected in this patient on peritoneal dialysis with visualized PD catheter. No organized fluid collection identified. Signed: Jerome Wilde MDReport Verified Date/Time: 03/20/2017 16:00:53 ReadingLocation: [facility] P048 Angio Body Reading RoomAddendum EndsFINAL REPORT CT angiog blanca of the abdominal aorta and pelvic arteries, 19 March 2017 INDICATION: This is a 46 year old female with end-stage renal disease presents for pretransplant assessment. This study is performed in an attempt to avoid an invasive procedure. TECHNIQUE: Spiral acquisition before anterior intravenous contrast administration using a [employer]oster[employer] multidetector CT scanner. Images were obtained before [...] exam was performed according to our departmental dose-optimisation programme, which includes automated exposure control, adjustment of the mA and/or kV according to patient size and/or use of iterative reconstruction technique. Dose modulation, iterative reconstruction, and/or weight based adjustment [...] dimensions of the abdominal aorta are as fol lows: 2.0 cm at the mesenteric segment; 1.7 cm at the renal segment,; and 1.5 cm at the aortic bifurcation. The common iliac, external iliac, common femoral, and the visualized superficial femoral arteries, bilaterally, are widely patent, except for minimal eccentric calcification for example in the distal right common iliac artery. Prosthetic Dentist dimensions of the left and the right external iliac arteries are 6 - 7 and 7 - 8 mm, respectively. Similarly, the associated pelvic veins are patent with no venous thrombosis identified. Prosthetic Dentist dimensions of the left and the right external iliac veins are 12 and 12 mm, respectively. Patient is post renal transplantation. The transplant artery is located approximately 4.7 cm from the takeoff of the right external iliac artery. The transplant renal vein is located slightly more inferiorly. Both the transplanted artery and vein is seen to be patent with no stenosis identified. Single penobscot left and right renal arteries are seen that are patent. The celiac axis, SMA, DIMAS are widely patent. NON-VASCULAR:- The lung bases are unremarkable. Some dependent changes are seen. No pleural effusion is identified. In the abdomen, the liver and spleen appears unremarkable. The liver edge is smooth. There is two patchy enhancing structure is identified, atimage 10 in the superior aspect of the liver. This may represent vascular shunting. An addendum willbe dictated thereafter, if needed. Some perihepatic ascites is noted in the site is also noted inferior to the spleen. No acute renal pathology is seen and the kidneys are atrophic consistent with end-stage renal disease status. No hydronephrosis or perirenal fluid collection is seen. Patient is post renal transplantation and the transplant kidney is identified in the right iliac fossa. No hydronephrosis or perirenal fluid collection is seen. The adrenal glands are not enlarged. The pancreas appearsunremarkable. Patient is post cholecystectomy. Bowel is not well assessed by CT angiography as enteric contrast is not given. No obvious bowel dilation is identified. No free air is seen in the abdomenand pelvis. A dialysis catheter is seen, with tip in the left iliac fossa. Some ascites / free fluidis identified in dependent portion of the pelvis. The bladder appears unremarkable. The uterus is identified. No obvious abnormal adnexal masses seen though CT is not optimised in the assessment of pelvic gynecological structures. No acute bony pathology is identified. CONCLUSIONS: 1. The abdominal aorta is normal in course, calibre and contour. There is no evidence of acute aortic pathology, specifically, there is no dissection, intramural hematoma, or contained rupture. Quantitative dimension of the abdominal aorta are as noted. The pelvic arteries and veins are widely patent with no arterial stenosis or venous thrombosis identified. Prosthetic Dentist dimensions of the left and the right external iliac arteries and veins are as described above. 2. Widely patent mesenteric arteries. Patent penobscot renal arteries. The transplant artery and vein are not identified connecting to the right external iliac artery and vein that is patent with no venous thrombosis identified. 3. Other findings as described above. 4. An addendum will be dictated regarding the non-vascular findings by the Track Repairer Helper Radiologist. Signed: Harmeet Ventura MDReport Verified Date/Time: 03/19/2017 14:38:21 Reading Location: [place] [address] Cardiology MRI URINE [id number] 09:43:00 Test Item Value Reference Range Interpretation Comments CULTURE (BEAKER) (test 70-79,000 col/mL skin code = 1095) dawna CYTOMEGALOVIRUS ANTIBODY, [id number] 12:49:00 Test Item Value Reference Range Interpretation Comments CYTOMEGALOVIRUS IGG ANTIBODY Positive (BEAKER) (test code = 790) CYTOMEGALOVIRUS ANTIBODY, [id number] 12:49:00 Test Item Value Reference Range Interpretation Comments CYTOMEGALOVIRUS IGM ANTIBODY Negative (BEAKER) (test code = 816) EBV-VCA ANTIBODY, [id number] 12:49:00 Test Item Value Reference Range Interpretation Comments SEDRICK-SHAY VCA IGG (BEAKER) (test Positive code = 983) EBV-VCA ANTIBODY, [id number] 12:49:00 Test Item Value Reference Range Interpretation Comments SEDRICK-SHAY VCA IGM (BEAKER) (test Negative code = 984) VARICELLA ZOSTER ANTIBODY, [id number] 12:42:00 Test Item Value Reference Range Interpretation Comments VARICELLA ZOSTER IGG (AL) (BEAKER) 6.8 Al (test code = 3197) VARICELLA ZOSTER RESULT INTERPRETATIONS: <=0.8 Al Nonreactive: Presumed non- immune to VZV 0.9-1.0Al Equivocal >=1.1 Al Reactive: Presumed immune to VZV [id number] 05:36:00 Test Item Value Reference Range Interpretation Comments RPR SCREEN (BEAKER) (test code = Nonreactive Nonreactive 420) URINALYSIS W/ [id number] 14:30:00 Test Item Value Reference Range Interpretation [...] 2 /LPF 1579) SOURCE(BEAKER) (test code = 3572) HEMOGLOBIN [id number] 12:35:00 Test Item Value Reference Range Interpretation Comments HEMOGLOBIN A1C (BEAKER) (test code = 5.6 % 4.3-6.1 368) HEPATITIS B SURFACE [id number] 11:22:00 Test Item Value Reference Range Interpretation Comments HEPATITIS B SURFACE ANTIGEN (2) Nonreactive Nonreactive (BEAKER) (test code = 2585) HEPATITIS B SURFACE [id number] 11:22:00 Test Item Value Reference Range Interpretation Comments HEPATITIS B SURFACE ANTIBODY 164.7 mIU/mL <8.0 H (BEAKER) (test code = 647) HEPATITIS B CORE ANTIBODY, [id number] 11:22:00 Test Item Value Reference Range Interpretation Comments HEPATITIS B CORE IGM ANTIBODY Nonreactive Nonreactive (BEAKER) (test code = 645) HEPATITIS C [id number] 11:22:00 Test Item Value Reference Range Interpretation Comments HEPATITIS C ANTIBODY (BEAKER) Nonreactive Nonreactive (test code = 367) HIV-1 ANTIGEN WITH HIV-1/2 [id number] 11:22:00 Test Item Value Reference Range Interpretation Comments HIV-1 ANTIGEN WITH HIV 1\\T\\2 Nonreactive Nonreactive ANTIBODY (2) (BEAKER) (test code = 2586) PTH, [id number] 11:07:00 Test Item Value Reference Range Interpretation Comments PARATHYROID HORMONE INTACT 489.0 pg/mL 8.5-72.5 H (BEAKER) (test code = 577) URIC [id number] 11:01:00 Test Item Value Reference Range Interpretation Comments URIC ACID (BEAKER) (test code = 8.9 mg/dL 2.6-7.2 H 773) [id number] 11:01:00 Test Item Value Reference Range Interpretation Comments PHOSPHORUS (BEAKER) (test code = 6.7 mg/dL 2.3-4.7 H 604) LIPID [id number] 11:01:00 Test Item Value Reference Range Interpretation Comments TRIGLYCERIDES (BEAKER) (test code = 727 mg/dL 540) CHOLESTEROL (BEAKER) (test code = 204 mg/dL 631) HDL CHOLESTEROL (BEAKER) (test code 28 mg/dL = 976) Calculated LDL not valid if triglyceride >400 mg/dLTriglyceride Reference Range: Low Risk <150Borderline 150-199 High Risk 200-499 Very High Risk >=500Cholesterol Reference Range: Low Risk <200 Borderline 200-239 High Risk >240HDL Cholesterol Reference Range: Low Risk >=60 High Risk <40LDL Cholesterol Reference Range: Optimal <100 Near Optimal 100-129 Borderline 130-159 Szqm504-739 Very High >=190GAMMA GLUTAMYL TRANSFERASE (GGT)2017-03-05 11:01:00 Test Item Value Reference Range Interpretation Comments GAMMA GLUTAMYL TRANSFERASE (BEAKER) 37 U/L 9-64 (test code = 364) LACTATE DEHYDROGENASE (LDH)2017-03-05 11:01:00 Test Item Value Reference Range Interpretation Comments LACTATE DEHYDROGENASE (BEAKER) (test 280 U/L 125-220 H code = 635) [id number] 10:25:00 Test Item Value Reference Range Interpretation Comments PROTIME (PeopleAdmin) (test code = 14.1 seconds 11.7-14.7 759) [facility] (test code = 370) 1.1 <=5.9 PARTIAL THROMBOPLASTIN TIME 33.8 seconds 22.5-36.0 ([facility]) (test code = 760) RECOMMENDED COUMADIN/WARFARIN INR THERAPY RANGESSTANDARD DOSE: 2.0 - 3.0 Includes: PROPHYLAXIS for venous thrombosis, systemic embolization; TREATMENT for venous thrombosis and/or pulmonary embolus.HIGH RISK: Target INR is 2.5-3.5 for patients with mechanical heart valves.[id number] 13:48:00 Test Item Value Reference Range Interpretation Comments POC-HEMATOCRIT 29 % 36-45 L TESTED AT [place] [address] (PeopleAdmin) (test code = [facility] [place] 4192) [address] [id number] 13:48:00 Test Item Value Reference Range Interpretation Comments POC-HEMOGLOBIN 9.9 g/dL 12.0-15.0 L TESTED AT [place] [address] (PeopleAdmin) (test code [facility] = 1856) [place] [address] HEPATITIS B SURFACE [id number] 16:44:00 Test Item Value Reference Range Interpretation Comments HEPATITIS B SURFACE ANTIGEN (2) Nonreactive Nonreactive (PeopleAdmin) (test code = 2585) HEPATITIS B SURFACE [id number] 16:44:00 Test Item Value Reference Range Interpretation Comments HEPATITIS B SURFACE ANTIBODY 151.8 mIU/mL <8.0 H (PeopleAdmin) (test code = 647) HEPATITIS C [id number] 16:44:00 Test Item Value Reference Range Interpretation Comments HEPATITIS C ANTIBODY (BEAKER) Nonreactive Nonreactive (test code = 367) [id number] 15:28:00 Test Item Value Reference Range Interpretation Comments FERRITIN (BEAKER) (test code = 361) 497 ng/mL 5-275 H RAD, CHEST, 2 [id number] 15:14:00Dialysis 05/23Reason for Exam:->CHRONIC KIDNEY DISEASE, STAGE 5 [N18.5]FINAL REPORT Chest two views compared to June 29, 2015 Discussion: Heart, lungs, bones, soft tissues unremarkable. No effusion or pneumothorax. Signed: Mayo Millereport Mejia ified Date/Time: 02/19/2017 15:14:15 Reading Location: [address] Consult Reading Room BASI METABOLIC [id number] 14:10:00 Test Item Value Reference Range Interpretation [...] DIALYSIS PATIEN TS. HEPATITIS B CORE ANTIBODY, [id number] 14:05:00 Test Item Value Reference Range Interpretation Comments HEPATITIS B CORE TOTAL ANTIBODY Nonreactive Nonreactive (BEAKER) (test code = 497) IRON, [id number] 13:47:00 Test Item Value Reference Range Interpretation [...] % 20-55 (test code = 2590) PTH, [id number] 13:17:00 Test Item Value Reference Range Interpretation Comments PARATHYROID HORMONE INTACT 334.6 pg/mL 8.5-72.5 H (BEAKER) (test code = 577) [id number] 13:13:00 Test Item Value Reference Range Interpretation Comments PHOSPHORUS (BEAKER) (test code = 4.5 mg/dL 2.3-4.7 604) LIPID [id number] 13:13:00 Test Item Value Reference Range Interpretation Comments TRIGLYCERIDES (BEAKER) (test code = 879 mg/dL 540) CHOLESTEROL (BEAKER) (test code = 231 mg/dL 631) HDL CHOLESTEROL (BEAKER) (test code 30 mg/dL = 976) Calculated LDL not valid if triglyceride >400 mg/dLTriglyceride Reference Range: Low Risk <150Borderline 150-199 High Risk 200-499 Very High Risk >=500Cholesterol Reference Range: Low Risk <200 Borderline 200-239 High Risk >240HDL Cholesterol Reference Range: Low Risk >=60 High Risk <40LDL Cholesterol Reference Range: Optimal <100 Near Optimal 100-129 Borderline 130-159 [id number] Very High >=190HEPATIC FUNCTION PANEL 2017-02-19 13:13:00 Test Item Value Reference Range Interpretation [...] (test code = 16 U/L 6-55 347) [id number] 13:08:00 Test Item Value Reference Range Interpretation Comments PROTIME (BEAKER) (test code = 15.0 seconds 11.7-14.7 H 759) INR (BEAKER) (test code = 370) 1.2 <=5.9 PARTIAL THROMBOPLASTIN TIME 31.4 seconds 22.5-36.0 (BEAKER) (test code = 760) RECOMMENDED COUMADIN/WARFARIN INR THERAPY RANGESSTANDARD DOSE: 2.0 - 3.0 Includes: PROPHYLAXIS for venous thrombosis, systemic embolization; [...] 0-0 (BEAKER) (test code = 413) POTASSIUM-STAT [id number] 17:19:00 Test Item Value Reference Range Interpretation Comments POTASSIUM (BEAKER) (test code = 6.2 meq/L 3.6-5.5 HH 379) GLUCOSE-STAT [id number] 17:16:00 Test Item Value Reference Range Interpretation Comments GLUCOSE RANDOM (BEAKER) (test code 223 mg/dL 70-110 H = 652) [id number] 15:37:00 Test Item Value Reference Range Interpretation Comments POTASSIUM (BEAKER) (test code = 6.5 meq/L 3.5-5.1 HH 379) [id number] 15:28:00 Test Item Value Reference Range Interpretation Comments GLUCOSE RANDOM (BEAKER) (test code 209 mg/dL 70-105 H = 652) [id number] 13:23:00 Test Item Value Reference Range Interpretation Comments POTASSIUM (BEAKER) (test code = 7.0 meq/L 3.5-5.1 HH 379) POTASSIUM-STAT [id number] 12:51:00 Test Item Value Reference Range Interpretation Comments POTASSIUM (BEAKER) (test code = 7.6 meq/L 3.6-5.5 HH 379) GLUCOSE-STAT [id number] 12:44:00 Test Item Value Reference Range Interpretation Comments GLUCOSE RANDOM (BEAKER) (test code 253 mg/dL 70-110 H = 652) GLUCOSE-STAT [id number] 10:30:00 Test Item Value Reference Range Interpretation Comments GLUCOSE RANDOM (BEAKER) (test code 213 mg/dL 70-110 H = 652) HGB/HCT (H&H) - STAT [id number] 10:30:00 Test Item Value Reference Range Interpretation Comments HEMOGLOBIN (BEAKER) (test code = 8.5 g/dL 12.0-15.0 L 410) HEMATOCRIT (BEAKER) (test code = 25.0 % 36.0-45.0 L 411) POTASSIUM-STAT [id number] 10:30:00 Test Item Value Reference Range Interpretation Comments POTASSIUM (BEAKER) (test code = 6.3 meq/L 3.6-5.5 HH 379) HGB/HCT (H&H) - STAT [id number] 06:24:00 Test Item Value Reference Range Interpretation Comments HEMOGLOBIN (BEAKER) (test code = 8.7 g/dL 12.0-15.0 L 410) HEMATOCRIT (BEAKER) (test code = 26.0 % 36.0-45.0 L 411) GLUCOSE-STAT [id number] 06:22:00 Test Item Value Reference Range Interpretation Comments GLUCOSE RANDOM (BEAKER) (test code 108 mg/dL 70-110 = 652) POTASSIUM-STAT [id number] 06:22:00 Test Item Value Reference Range Interpretation Comments POTASSIUM (BEAKER) (test code = 4.7 meq/L 3.6-5.5 379) [id number] 15:10:00 Test Item Value Reference Range Interpretation [...] % 20-55 L (test code = 2590) [id number] 10:56:00 Test Item Value Reference Range Interpretation Comments POC-HEMATOCRIT 29 % 36-[address] [facility] (BEAKER) (test code = [facility] [place] 1857) [address] [id number] 10:56:00 Test Item Value Reference Range Interpretation Comments POC-HEMOGLOBIN 9.9 g/dL 12.0-15.[address] [facility] [facility] (BEAKER) (test code [facility] = 1856) [place] [address] TISSUE [id number] 13:28:00Surgical Pathology Report Case: [id number] Authorizing Provider: Anjana Petit MD Collected: 11/18/2016 1200 Ordering Location: [facility] Radiology Main Received: 11/18/2016 1043 Pathologist: Amy Ortega MD Specimen: Kidney, Right KIDNEY, RIGHT, NEEDLE BIOPSIES- FEATURES CONSISTENT WITH RECURRENT FOCAL AND SEGMENTAL GLOMERULOSCLEROSIS (FSGS)- C4D NEGATIVE IN PERITUBULAR CAPILLARIES- NEGATIVE FOR FEATURES OF ACUTE REJECTION- NEGATIVE FOR IMMUNE MEDIATED GLOMERULONEPHRITIS- INTERSTITIAL FIBROSIS AND TUBUL AR ATROPHY, MODERATE TO SEVERE (50% TO 60%)- MILD ARTERIOLAR HYALINOSIS- SEE COMMENT The renal biopsy shows focal segmental and diffuse global glomerulosclerosis. Overall global glomerulosclerosis is 60% (6/10) of all examined glomeruli. There is moderate to severe interstitial fibrosis and tubular atrophy involving about 60% of renalcortex. No acute rejection is present. No immune mediated glomerulonephritis is seen based on negative immunofluorescence and absence of electron dense deposits on ultrastructural evaluation.The tissuesubmitted for light microscopy showed medullary tissue and a small part of cortex. No glomeruli was present in this tissue (multiple levels examined). The morphological diagnosis is rendered based on the HE stained yard loader operator sections of the tissue submitted for immunofluorescence, and from the yard loader operator sections for electron microscopy. [address], [address]8701 x3, 42705, 09854 x8, 01566Upbbf transplant in April 2014with recurrent FSGS (biopsy proven in 2016) and proteinuria 11 g, with increasing serum [...] electron microscopy if needed. CG/pl LIGHT MICROSCOPY: Sectionsshow three cores of renal parenchymal tissue composed predominantly of medullary tissue (~40%) and very focal cortical tissue. Glomeruli: No glomeruli are seen (mulitple levels examined) Tubules and interstitium: There is moderate interstitial fibrosis with focal tubular atrophy and associated chronicinterstitial inflammatory cell infiltration involving about 40% of renal cortex. Non-atrophic proximal tubules are focally ectatic. No tubulitis or peritubular capillaritis is noted. Vessels: Branches of interlobular arteries are unremarkable. The arterioles show mild hyalinosis and focal hyperplasticarteriolosclerosis. Special stains: Frank trichrome, PAS and Montelongo silver stains were necessary for evaluation of this biopsy and showed expected staining patterns of internal control tissue matrix structures.IMMUNOFLUORESCENCEHistology: H&E-stained sections show 1 non-obsolescent glomeruli and 6obsolescent glomeruli. The non- globally sclerotic glomeruli are unremarkable with patent capillary loops. No endocapillary hypercellularity, crescents or thrombi are seen. No definitive double contoursare noted on Montelongo or PAS stain. There is marked interstitial fibrosis and tubular atrophy with chronic lymphoplasmacytic inflammation involving fibrotic foci. Indirect rztyalcshhsglzdrjrL5t is negative in peritubular capillaries.Direct immunofluorescence Albumin: diffuse, glomerular and tubular basement membrane, weak. IgA: negative in glomeruli IgG: negative in glomeruli. IgM: focal, segmental, mesangial entrapment in sclerotic glomeruli, 2+. C3: Sclerotic glomeruli with 3+ staining, C1q: weak/equivocal staining of the sclerotic glomeruli. Fibrinogen: diffuse, glomerular and tubulointerstitial, weak. Beltrami: negative glomeruli Lambda: negative glomeruliAll polyclonal antibodies used for immunofluorescence staining have been previously tested and shown to have appropriate reactivities with positive control specimens. ELECTRON MICROSCOPY:Thick section histology: Toluidine blue-stained sections reveal three non-obsolescent glomeruli, one of which shows segmental sclerosis and hyalinosis. All three non-obsolescent glomerulus is examined ultrastructurally.Ultrastructure: Examination of the glomerular ultrastructure reveals that the glomerular basement membrane is of normal thickness. The mesangial matrix is not expanded. Subendothelial, subepithelial, and mesangial/paramesangial electron-dense, immune complex-type deposits are not present. Podocyte foot processes are diffusely effaced with segmental microvillous change. Visceral podocyte hypertrophy is present. Peritubular capillaries show 1-3layers of basement membranes.BASIC METABOLIC [id number] 08:03:00 Test Item Value Reference Range Interpretation [...] 697) EGFR (BEAKER) (test 12 mL/min/1.73 ESTIMA MARLINE GFR IS code = 1092) sq m NOT ACCURATE CREATININE CLEARANCE IN PREDICTING GLOMERULAR FILTRATION RATE . ESTIMATED GFR I S NOT APPLICABLE FOR DIALYSIS PATIEN TS. [id number] 07:27:00 Test Item Value Reference Range Interpretation Comments PROTIME (BEAKER) (test code = 13.4 seconds 11.7-14.7 759) INR (BEAKER) (test code = 370) 1.0 <=5.9 PARTIAL THROMBOPLASTIN TIME 30.9 seconds 22.5-36.0 (BEAKER) (test code = 760) RECOMMENDED COUMADIN/WARFARIN INR THERAPY RANGESSTANDARD DOSE: 2.0 - 3.0 Includes: PROPHYLAXIS for venous thrombosis, systemic embolization; TREATMENT for venous thrombosis and/or pulmonary embolus.HIGH RISK: Target INR is 2.5-3.5 for patients with mechanical heart valves.CBC W/PLT COUNT & AUTO [id number] 07:20:00 Test Item Value Reference Range Interpretation [...] L 0.00-0.20 (test code = 417) 0.00URINE [id number] 13:34:00 Test Item Value Reference Range Interpretation Comments CULTURE (BEAKER) A 50-59,000 c ol/mL (test code = 1095) Beta-hemo lytic streptococcus g roup B, by serological alyssa upingIf this patient is preg nant, please refer to [facility]CO[facility] anand guevara for appropriate screening and management of colonized women. >100,000 col/mL skin floraPROTEIN, RANDOM [id number] 17:10:00 Test Item Value Reference Range Interpretation Comments PROTEIN, URINE (BEAKER) (test code 670 mg/dL 0-14 H = 1569) CREATININE, RANDOM [id number] 16:40:00 Test Item Value Reference Range Interpretation Comments CREATININE URINE (BEAKER) (test 97.6 mg/dL code = 375) Reference Range: No NormalsPROTEIN, RANDOM [id number] 14:56:00 Test Item Value Reference Range Interpretation Comments PROTEIN, URINE (BEAKER) (test code 507 mg/dL 0-14 H = 1569) CREATININE, RANDOM [id number] 14:41:00 Test Item Value Reference Range Interpretation Comments CREATININE URINE (BEAKER) (test 99.6 mg/dL code = 375) Reference Range: No NormalsTACROLIMUS [id number] 12:30:00 Test Item Value Reference Range Interpretation Comments TACROLIMUS BLOOD (BEAKER) (test 4.8 ng/mL 10.0-20.0 L code = 657) COMPREHENSIVE METABOLIC [id number] 08:57:00 Test Item Value Reference Range Interpretation [...] 347) EGFR (BEAKER) (test 22 mL/min/1.73 ESTIMA MARLINE GFR IS code = 1092) sq m NOT ACCURATE CREATININE CLEARANCE IN PREDICTING GLOMERULAR FILTRATION RATE . ESTIMATED GFR I S NOT APPLICABLE FOR DIALYSIS PATIEN TS. Specimen slightly lipemicCBC W/PLT COUNT & AUTO [id number] 08:37:00 Test Item Value Reference Range Interpretation [...] 0.00-0.20 (test code = 417) 0.00CMV PCR, [id number] 14:33:00 Test Item Value Reference Range Interpretation [...] management of antiviral therapy. For treatment of CMV infection due to reactivation in transplant recipients, a threshold between 4,000 and 5,000 copies/mLis suggested. For treatment of primary CMV infection, a lower threshold can be used.CMV infection may also be monitored using weekly serial measurements. Serial measurements of CMV DNA viral load can be evaluated by identifying a 10-fold change, as [...] and its performance characteristics determined by the [facility] Pathol ogy Department, Section of Molecular Pathology. It has not been cleared or approved by the U.S. Foodand Drug Administration (FDA), since FDA approval is [...] code = hemoly zed 635) COMPREHENSIVE METABOLIC [id number] 14:20:00 Test Item Value Reference Range Interpretation [...] hemolyzed EGFR (BEAKER) (test 23 mL/min/1.73 ESTIMA MARLINE GFR IS code = 1092) sq m NOT ACCURATE CREATININE CLEARANCE IN PREDICTING GLOMERULAR FILTRATION RATE . ESTIMATED GFR I S NOT APPLICABLE FOR DIALYSIS PATIEN TS. Specimen slightly [id number] 14:18:00 Test Item Value Reference Range Interpretation Comments PHOSPHORUS (BEAKER) 4.1 mg/dL 2.3-4.7 Specimen slightly (test code = 604) hemolyzed URINALYSIS W/ REFLEX URINE [id number] 14:02:00 Test Item Value Reference Range Interpretation [...] code = 516) SOURCE(BEAKER) (test code = 0184) CBC W/PLT COUNT & AUTO [id number] 13:55:00 Test Item Value Reference Range Interpretation [...] 0.00-0.20 (test code = 417) 0.00CMV PCR, [id number] 14:35:00 Test Item Value Reference Range Interpretation [...] management of antiviral therapy. For treatment of CMV infection due to reactivation in transplant recipients, a threshold between 4,000 and 5,000 copies/mLis suggested. For treatment of primary CMV infection, a lower threshold can be used.CMV infection may also be monitored using weekly serial measurements. Serial measurements of CMV DNA viral load can be evaluated by identifying a 10-fold change, as [...] and its performance characteristics determined by the [facility] Pathol ogy Department, Section of Molecular Pathology. It has not been cleared or approved by the U.S. Foodand Drug Administration (FDA), since FDA approval is not required for clinical use of the test. Validation was done as required by The Clinical Laboratory Improvement Amendments of 1988.TACROLIMUS LEVEL 2016-09-02 12:44:00 Test Item Value Reference Range Interpretation Comments TACROLIMUS BLOOD (BEAKER) (test 7.0 ng/mL 10.0-20.0 L code = 657) COMPREHENSIVE METABOLIC [id number] 11:38:00 Test Item Value Reference Range Interpretation [...] 347) EGFR (BEAKER) (test 23 mL/min/1.73 ESTIMA MARLINE GFR IS code = 1092) sq m NOT ACCURATE CREATININE CLEARANCE IN PREDICTING GLOMERULAR FILTRATION RATE . ESTIMATED GFR I S NOT APPLICABLE FOR DIALYSIS PATIEN TS. [id number] 11:29:00 Test Item Value Reference Range Interpretation Comments PHOSPHORUS (BEAKER) (test code = 4.3 mg/dL 2.3-4.7 604) LACTATE DEHYDROGENASE (LDH)2016-09-02 11:29:00 Test Item Value Reference Range Interpretation Comments LACTATE DEHYDROGENASE (BEAKER) (test 222 U/L 125-220 H code = 635) CBC W/PLT COUNT & AUTO [id number] 11:17:00 Test Item Value Reference Range Interpretation [...] code = 417) 0.00URINALYSIS W/ REFLEX URINE [id number] 11:14:00 Test Item Value Reference Range Interpretation [...] 514) SOURCE(BEAKER) (test code = 2795) TACROLIMUS [id number] 09:25:00 Test Item Value Reference Range Interpretation Comments TACROLIMUS BLOOD (BEAKER) (test 6.7 ng/mL 10.0-20.0 L code = 657) PROTEIN, RANDOM [id number] 23:09:00 Test Item Value Reference Range Interpretation Comments PROTEIN, URINE (BEAKER) (test code = > mg/dL 0-14 H 1569) BASIC METABOLIC [id number] 23:09:00 Test Item Value Reference Range Interpretation [...] 697) EGFR (BEAKER) (test 20 mL/min/1.73 ESTIMA MARLINE GFR IS code = 1092) sq m NOT ACCURATE CREATININE CLEARANCE IN PREDICTING GLOMERULAR FILTRATION RATE . ESTIMATED GFR I S NOT APPLICABLE FOR DIALYSIS PATIEN TS. CREATININE, RANDOM [id number] 22:59:00 Test Item Value Reference Range Interpretation Comments CREATININE URINE (BEAKER) (test 68.3 mg/dL code = 375) Reference Range: No NormalsURINALYSIS W/ [id number] 22:56:00 Test Item Value Reference Range Interpretation [...] code = 516) SOURCE(BEAKER) (test code = 6156) CBC W/PLT COUNT & AUTO [id number] 22:45:00 Test Item Value Reference Range Interpretation [...] (test code = 417) OVA AND PARASITE [id number] 15:39:00 Test Item Value Reference Range Interpretation [...] the presence of a parasitic infection.Performing Laboratory: [facility] [employer] [facility] [address] [id number] Director: Sanjuana De Paz MD, FCAPTACROLIMUS [id number] 10:34:00 Test Item Value Reference Range Interpretation Comments TACROLIMUS BLOOD (BEAKER) (test 8.3 ng/mL 10.0-20.0 L code = 657) POCT-GLUCOSE [id number] 09:07:00 Test Item Value Reference Range Interpretation Comments POC-GLUCOSE METER 108 mg/dL 70-[address] [facility] 6720 (BEAKER) (test code = [place] 1532) [address] CBC W/PLT COUNT & AUTO [id number] 06:44:00 Test Item Value Reference Range Interpretation [...] K/ L 0.00-0.20 (test code = 417) [id number] 06:26:00 Test Item Value Reference Range Interpretation Comments PHOSPHORUS (BEAKER) (test code = 4.9 mg/dL 2.3-4.7 H 604) [id number] 06:26:00 Test Item Value Reference Range Interpretation Comments MAGNESIUM (BEAKER) (test code = 1.9 mg/dL 1.6-2.6 627) BASIC METABOLIC [id number] 06:26:00 Test Item Value Reference Range Interpretation [...] 697) EGFR (BEAKER) (test 20 mL/min/1.73 ESTIMA MARLINE GFR IS code = 1092) sq m NOT ACCURATE CREATININE CLEARANCE IN PREDICTING GLOMERULAR FILTRATION RATE . ESTIMATED GFR I S NOT APPLICABLE FOR DIALYSIS PATIEN TS. POCT-GLUCOSE [id number] 21:25:00 Test Item Value Reference Range Interpretation Comments POC-GLUCOSE METER 140 mg/dL 70-[address] [facility] 67[address] ([facility]) (test code = [facility] 1538) [address] POCT-GLUCOSE [id number] 17:13:00 Test Item Value Reference Range Interpretation Comments POC-GLUCOSE METER 213 mg/dL 70-[address] [facility] 6720 ([facility]) (test code = [facility] 1538) [id number] CMV PCR, [id number] 13:48:00 Test Item Value Reference Range Interpretation Comments CMV VIRAL LOAD - POSITIVE 77251 copies/ml ([facility]) (test code = 1557) Cytomegalovirus (CMV) infection can cause significant disease in immunosuppressed patients. However,it is common for CMV to manifest as a limited infection which is of no clinical significance in immunosuppressed patients or in healthy individuals.Viral load measurements are helpful to identify clinical CMV infection and to guide the pre-emptive management of antiviral therapy. For treatment of CMV infection due to reactivation in transplant recipients, a threshold between 4,000 and 5,000 copies/mLis suggested. For treatment of primary CMV infection, a lower threshold can be used.CMV infection may also be monitored using weekly serial measurements. Serial measurements of CMV DNA viral load can be evaluated by identifying a 10-fold change, as [...] and its performance characteristics determined by the [facility] Pathol ogy Department, Section of Molecular Pathology. It has not been cleared or approved by the U.S. Foodand Drug Administration (FDA), since FDA approval is not required for clinical use of the test. Validation was done as required by The Clinical Laboratory Improvement Amendments of 1988.POCT-GLUCOSE METER 2016-08-26 12:15:00 Test Item Value Reference Range Interpretation Comments POC-GLUCOSE METER 169 mg/dL 70-[address] [facility] 1177 (BEAKER) (test code = [place] 1538) [address] CBC W/PLT COUNT & AUTO [id number] 10:50:00 Test Item Value Reference Range Interpretation Comments WHITE BLOOD CELL COUNT (AKER) 3.4 K/ L 4.0-10.0 L (test code = 775) RED BLOOD CELL COUNT (AKER) 3.18 M/ L 4.00-5.00 L (test code = 761) HEMOGLOBIN (BEAKER) (test code = 8.2 GM/DL 12.0-15.0 L 410) HEMATOCRIT ([facility]) (test code = 26.4 % 36.0-45.0 L 411) MEAN CORPUSCULAR VOLUME ([facility]) 82.9 fL 82.0-99.0 (test code = 753) [...] (BEAKER) (test code = Normal 762) TACROLIMUS [id number] 10:09:00 Test Item Value Reference Range Interpretation Comments TACROLIMUS BLOOD (BEAKER) (test 8.8 ng/mL 10.0-20.0 L code = 657) POCT-GLUCOSE [id number] 08:03:00 Test Item Value Reference Range Interpretation Comments POC-GLUCOSE METER 114 mg/dL 70-[address] [facility] 6720 (BEAKER) (test code = [facility] [place] 1538) [address] BASIC METABOLIC [id number] 06:32:00 Test Item Value Reference Range Interpretation [...] 697) EGFR (BEAKER) (test 20 mL/min/1.73 ESTIMA MARLINE GFR IS code = 1092) sq m NOT ACCURATE CREATININE CLEARANCE IN PREDICTING GLOMERULAR FILTRATION RATE . ESTIMATED GFR I S NOT APPLICABLE FOR DIALYSIS PATIEN TS. [id number] 06:25:00 Test Item Value Reference Range Interpretation Comments PHOSPHORUS (BEAKER) (test code = 3.9 mg/dL 2.3-4.7 604) [id number] 06:25:00 Test Item Value Reference Range Interpretation Comments MAGNESIUM (BEAKER) (test code = 1.9 mg/dL 1.6-2.6 627) POCT-GLUCOSE [id number] 21:15:00 Test Item Value Reference Range Interpretation Comments POC-GLUCOSE METER 152 mg/dL 70-[address] [facility] 6720 (BEAKER) (test code = [facility] [place] 1538) [address] POCT-GLUCOSE [id number] 17:06:00 Test Item Value Reference Range Interpretation Comments POC-GLUCOSE METER 226 mg/dL 70-[address] [facility] 6720 (BEAKER) (test code = [facility] [place] 1538) [address] POCT-GLUCOSE [id number] 12:49:00 Test Item Value Reference Range Interpretation Comments POC-GLUCOSE METER 394 mg/dL 70-[address] [facility] 6720 (BEAKER) (test code = [place] 1538) [address] POCT-GLUCOSE [id number] 08:04:00 Test Item Value Reference Range Interpretation Comments POC-GLUCOSE METER 122 mg/dL 70-[address] [facility] 6720 (BEAKER) (test code = [place] 1538) [address] BASIC METABOLIC [id number] 06:53:00 Test Item Value Reference Range Interpretation [...] 697) EGFR (BEAKER) (test 19 mL/min/1.73 ESTIMA MARLINE GFR IS code = 1092) sq m NOT ACCURATE CREATININE CLEARANCE IN PREDICTING GLOMERULAR FILTRATION RATE . ESTIMATED GFR I S NOT APPLICABLE FOR DIALYSIS PATIEN TS. [id number] 06:52:00 Test Item Value Reference Range Interpretation Comments PHOSPHORUS (BEAKER) (test code = 3.6 mg/dL 2.3-4.7 604) [id number] 06:52:00 Test Item Value Reference Range Interpretation Comments MAGNESIUM (BEAKER) (test code = 1.7 mg/dL 1.6-2.6 627) CBC W/PLT COUNT & AUTO [id number] 06:45:00 Test Item Value Reference Range Interpretation [...] L 0.00-0.20 (test code = 417) 0.00POCT-GLUCOSE [id number] 21:55:00 Test Item Value Reference Range Interpretation Comments POC-GLUCOSE METER 144 mg/dL 70-110 H TESTED AT [place] [address] ([facility]) (test code = GILDA [place] [facility] 1538) [address] POCT-GLUCOSE [id number] 18:14:00 Test Item Value Reference Range Interpretation Comments POC-GLUCOSE METER 166 mg/dL 70-110 H TESTED AT [place] [address] ([facility]) (test code = G[place]DA [place] [facility] 1538) [address] POCT-GLUCOSE [id number] 12:59:00 Test Item Value Reference Range Interpretation Comments POC-GLUCOSE METER 168 mg/dL 70-110 H TESTED AT [place] [address] ([facility]) (test code = GILDA Gates [facility] 1538) [address] POCT-GLUCOSE [id number] 09:21:00 Test Item Value Reference Range Interpretation Comments POC-GLUCOSE METER 94 mg/dL 70-110 TESTED AT [place] [address] ([facility]) (test code = GILDA Gates [facility] [address] 1538) CBC W/PLT COUNT & AUTO [id number] 07:28:00 Test Item Value Reference Range Interpretation [...] L 0.00-0.20 (test code = 417) 0.00POCT-GLUCOSE [id number] 07:01:00 Test Item Value Reference Range Interpretation Comments POC-GLUCOSE METER 126 mg/dL 70-[address] [facility] 6720 (BEAKER) (test code = [place] 1538) [address] BASIC METABOLIC [id number] 06:16:00 Test Item Value Reference Range Interpretation [...] 697) EGFR (BEAKER) (test 21 mL/min/1.73 ESTIMA MARLINE GFR IS code = 1092) sq m NOT ACCURATE CREATININE CLEARANCE IN PREDICTING GLOMERULAR FILTRATION RATE . ESTIMATED GFR I S NOT APPLICABLE FOR DIALYSIS PATIEN TS. [id number] 06:13:00 Test Item Value Reference Range Interpretation Comments PHOSPHORUS ([facility]) (test code = 3.2 mg/dL 2.3-4.7 604) [id number] 06:13:00 Test Item Value Reference Range Interpretation Comments MAGNESIUM ([facility]) (test code = 1.9 mg/dL 1.6-2.6 627) POCT-GLUCOSE [id number] 04:26:00 Test Item Value Reference Range Interpretation Comments POC-GLUCOSE METER 73 mg/dL 70-110 TESTED AT [place] [address] ([facility]) (test code = [facility] [address] 1538) POCT-GLUCOSE [id number] 02:34:00 Test Item Value Reference Range Interpretation Comments POC-GLUCOSE METER 84 mg/dL 70-110 TESTED AT [place] [address] ([facility]) (test code = [facility] [address] 1538) POCT-GLUCOSE [id number] 21:03:00 Test Item Value Reference Range Interpretation Comments POC-GLUCOSE METER 228 mg/dL 70-110 H TESTED AT [place] [address] ([facility]) (test code = [facility] 1538) [address] POCT-GLUCOSE [id number] 18:20:00 Test Item Value Reference Range Interpretation Comments POC-GLUCOSE METER 184 mg/dL 70-110 H TESTED AT [place] [address] ([facility]) (test code = [facility] 1538) [address] CMV PCR, [id number] 14:10:00 Test Item Value Reference Range Interpretation Comments CMV VIRAL LOAD - POSITIVE 330981 copies/ml ([facility]) (test code = 1557) Cytomegalovirus (CMV) infection can cause significant disease in immunosuppressed patients. However,it is common for CMV to manifest as a limited infection which is of no clinical significance in immunosuppressed patients or in healthy individuals.Viral load measurements are helpful to identify clinical CMV infection and to guide the pre-emptive management of antiviral therapy. For treatment of CMV infection due to reactivation in transplant recipients, a threshold between 4,000 and 5,000 copies/mLis suggested. For treatment of primary CMV infection, a lower threshold can be used.CMV infection may also be monitored using weekly serial measurements. Serial measurements of CMV DNA viral load can be evaluated by identifying a 10-fold change, as [...] and its performance characteristics determined by the [facility] Pathol ogy Department, Section of Molecular Pathology. It has not been cleared or approved by the U.S. Foodand Drug Administration (FDA), since FDA approval is not required for clinical use of the test. Validation was done as required by The Clinical Laboratory Improvement Amendments of 1988.TACROLIMUS LEVEL 2016-08-23 10:10:00 Test Item Value Reference Range Interpretation Comments TACROLIMUS BLOOD (BEAKER) (test 9.7 ng/mL 10.0-20.0 L code = 657) 30 minutes prior to AM doseCBC W/PLT COUNT & AUTO [id number] 08:49:00 Test Item Value Reference Range Interpretation [...] (test 1+ few code = 481) POCT-GLUCOSE [id number] 07:51:00 Test Item Value Reference Range Interpretation Comments POC-GLUCOSE METER 181 mg/dL 70-[address] [facility] 6720 (BEAKER) (test code = [facility] [place] 1538) [address] BASIC METABOLIC [id number] 06:17:00 Test Item Value Reference Range Interpretation [...] 697) EGFR (BEAKER) (test 20 mL/min/1.73 ESTIMA MARLINE GFR IS code = 1092) sq m NOT ACCURATE CREATININE CLEARANCE IN PREDICTING GLOMERULAR FILTRATION RATE . ESTIMATED GFR I S NOT APPLICABLE FOR DIALYSIS PATIEN TS. [id number] 06:09:00 Test Item Value Reference Range Interpretation Comments MAGNESIUM (BEAKER) 1.9 mg/dL 1.6-2.6 Specimen slightly (test code = 627) hemolyzed [id number] 06:09:00 Test Item Value Reference Range Interpretation Comments PHOSPHORUS (BEAKER) 2.7 mg/dL 2.3-4.7 Specimen slightly (test code = 604) hemolyzed POCT-GLUCOSE [id number] 21:42:00 Test Item Value Reference Range Interpretation Comments POC-GLUCOSE METER 209 mg/dL 70-[address] [facility] 6720 (BEAKER) (test code = [facility] 1538) [address] POCT-GLUCOSE [id number] 17:10:00 Test Item Value Reference Range Interpretation Comments POC-GLUCOSE METER 233 mg/dL 70-[address] [facility] 6720 (BEAKER) (test code = [facility] 1538) [address] POCT-GLUCOSE [id number] 12:54:00 Test Item Value Reference Range Interpretation Comments POC-GLUCOSE METER 174 mg/dL 70-[address] [facility] 6720 (BEAKER) (test code = [place] 1538) [address] TACROLIMUS [id number] 11:07:00 Test Item Value Reference Range Interpretation Comments TACROLIMUS BLOOD (BEAKER) (test 12.2 ng/mL 10.0-20.0 code = 657) 30 minutes prior to AM doseBASIC METABOLIC [id number] 08:41:00 Test Item Value Reference Range Interpretation [...] 697) EGFR (BEAKER) (test 23 mL/min/1.73 ESTIMA MARLINE GFR IS code = 1092) sq m NOT ACCURATE CREATININE CLEARANCE IN PREDICTING GLOMERULAR FILTRATION RATE . ESTIMATED GFR I S NOT APPLICABLE FOR DIALYSIS PATIEN TS. CBC W/PLT COUNT & AUTO [id number] 08:25:00 Test Item Value Reference Range Interpretation [...] K/ L 0.00-0.20 (test code = 417) [id number] 08:01:00 Test Item Value Reference Range Interpretation Comments MAGNESIUM (BEAKER) 1.5 mg/dL 1.6-2.6 L Specimen slightly (test code = 627) hemolyzed [id number] 08:01:00 Test Item Value Reference Range Interpretation Comments PHOSPHORUS (BEAKER) 2.6 mg/dL 2.3-4.7 Specimen slightly (test code = 604) hemolyzed BLOOD [id number] 06:00:00 Test Item Value Reference Range Interpretation Comments CULTURE (BEAKER) (test No growth in 5 days code = 1095) BLOOD [id number] 06:00:00 Test Item Value Reference Range Interpretation Comments CULTURE (BEAKER) (test No growth in 5 days code = 1095) POCT-GLUCOSE [id number] 21:35:00 Test Item Value Reference Range Interpretation Comments POC-GLUCOSE METER 171 mg/dL 70-110 H TESTED AT [place] [address] ([facility]) (test code = [facility] 1538) [address] POCT-GLUCOSE [id number] 17:27:00 Test Item Value Reference Range Interpretation Comments POC-GLUCOSE METER 218 mg/dL 70-110 H TESTED AT [place] [address] ([facility]) (test code = [facility] 1538) [address] POCT-GLUCOSE [id number] 14:38:00 Test Item Value Reference Range Interpretation Comments POC-GLUCOSE METER 168 mg/dL 70-110 H TESTED AT [place] [address] ([facility]) (test code = [facility] 1538) [address] CBC W/PLT COUNT & AUTO [id number] 14:16:00 Test Item Value Reference Range Interpretation Comments WHITE BLOOD CELL COUNT (BEAKER) 4.0 K/ L 4.0-10.0 (test code = 775) RED BLOOD CELL COUNT (AKER) 3.24 M/ L 4.00-5.00 L (test code [...] (BEAKER) (test code = Normal 762) COCCIDIAN [id number] 12:50:00 Test Item Value Reference Range Interpretation Comments CRYPTOSPORIDIA RESULT No Cryptosporidia No Cryptosporidia (BEAKER) (test code = seen seen 1420) CYCLOSPORA RESULT No Cyclospora seen No Cyclospora seen (BEAKER) (test code = 2174) ISOSPORA RESULT No Isospora species No Isospora mireya (BEAKER) (test code = oocysts seen oocysts seen, No 2175) Isospora hominis oocysts POCT-GLUCOSE [id number] 09:16:00 Test Item Value Reference Range Interpretation Comments POC-GLUCOSE METER 86 mg/dL 70-[address] [facility] 6720 (BEAKER) (test code = [place] [address] 1538) TACROLIMUS [id number] 09:06:00 Test Item Value Reference Range Interpretation Comments TACROLIMUS BLOOD (BEAKER) (test 8.6 ng/mL 10.0-20.0 L code = 657) 30 minutes prior to AM doseBASIC METABOLIC [id number] 07:24:00 Test Item Value Reference Range Interpretation [...] 697) EGFR (BEAKER) (test 22 mL/min/1.73 ESTIMA MARLINE GFR IS code = 1092) sq m NOT ACCURATE CREATININE CLEARANCE IN PREDICTING GLOMERULAR FILTRATION RATE . ESTIMATED GFR I S NOT APPLICABLE FOR DIALYSIS PATIEN TS. [id number] 07:20:00 Test Item Value Reference Range Interpretation Comments PHOSPHORUS (BEAKER) (test code = 2.0 mg/dL 2.3-4.7 L 604) [id number] 07:20:00 Test Item Value Reference Range Interpretation Comments MAGNESIUM (BEAKER) (test code = 1.6 mg/dL 1.6-2.6 627) POCT-GLUCOSE [id number] 21:22:00 Test Item Value Reference Range Interpretation Comments POC-GLUCOSE METER 99 mg/dL 70-[address] [facility] 6720 (BEAKER) (test code = [place] [address] 1538) POCT-GLUCOSE [id number] 17:30:00 Test Item Value Reference Range Interpretation Comments POC-GLUCOSE METER 240 mg/dL 70-[address] [facility] 67 ([facility]) (test code = [place] 1538) [address] CMV PCR, [id number] 13:55:00 Test Item Value Reference Range Interpretation Comments CMV VIRAL LOAD - POSITIVE > copies/ml ([facility]) (test code = 1557) Cytomegalovirus (CMV) infection can cause significant disease in immunosuppressed patients. However,it is common for CMV to manifest as a limited infection which is of no clinical significance in immunosuppressed patients or in healthy individuals.Viral load measurements are helpful to identify clinical CMV infection and to guide the pre-emptive management of antiviral therapy. For treatment of CMV infection due to reactivation in transplant recipients, a threshold between 4,000 and 5,000 copies/mLis suggested. For treatment of primary CMV infection, a lower threshold can be used.CMV infection may also be monitored using weekly serial measurements. Serial measurements of CMV DNA viral load can be evaluated by identifying a 10-fold change, as [...] and its performance characteristics determined by the [facility] Pathol ogy Department, Section of Molecular Pathology. It has not been cleared or approved by the U.S. Foodand Drug Administration (FDA), since FDA approval is not required for clinical use of the test. Validation was done as required by The Clinical Laboratory Improvement Amendments of 1988.POCT-GLUCOSE METER 2016-08-20 11:34:00 Test Item Value Reference Range Interpretation Comments POC-GLUCOSE METER 147 mg/dL 70-[address] [facility] 6720 ([facility]) (test code = GILDA Gates [facility] 1538) [address] TACROLIMUS [id number] 10:24:00 Test Item Value Reference Range Interpretation Comments TACROLIMUS BLOOD ([facility]) (test 7.7 ng/mL 10.0-20.0 L code = 657) 30 minutes prior to AM dosePOCT-GLUCOSE [id number] 08:18:00 Test Item Value Reference Range Interpretation Comments POC-GLUCOSE METER 88 mg/dL 70-[address] [facility] 6720 (BEAKER) (test code = [place] [id number]) BASIC METABOLIC [id number] 07:15:00 Test Item Value Reference Range Interpretation [...] 697) EGFR (BEAKER) (test 20 mL/min/1.73 ESTIMA MARLINE GFR IS code = 1092) sq m NOT ACCURATE CREATININE CLEARANCE IN PREDICTING GLOMERULAR FILTRATION RATE . ESTIMATED GFR I S NOT APPLICABLE FOR DIALYSIS PATIEN TS. [id number] 07:13:00 Test Item Value Reference Range Interpretation Comments PHOSPHORUS (BEAKER) (test code = 2.0 mg/dL 2.3-4.7 L 604) [id number] 07:13:00 Test Item Value Reference Range Interpretation Comments MAGNESIUM (BEAKER) (test code = 1.9 mg/dL 1.6-2.6 627) CBC W/PLT COUNT & AUTO [id number] 06:58:00 Test Item Value Reference Range Interpretation [...] L 0.00-0.20 (test code = 417) 0.00POCT-GLUCOSE [id number] 21:04:00 Test Item Value Reference Range Interpretation Comments POC-GLUCOSE METER 106 mg/dL 70-110 TESTED AT [place] [address] ([facility]) (test code = [place] 1538) [address] POCT-GLUCOSE [id number] 18:09:00 Test Item Value Reference Range Interpretation Comments POC-GLUCOSE METER 169 mg/dL 70-110 H TESTED AT [place] [address] ([facility]) (test code = GILDA Gates [facility] 1538) [address] CMV PCR, [id number] 14:20:00 Test Item Value Reference Range Interpretation [...] management of antiviral therapy. For treatment of CMV infection due to reactivation in transplant recipients, a threshold between 4,000 and 5,000 copies/mLis suggested. For treatment of primary CMV infection, a lower threshold can be used.CMV infection may also be monitored using weekly serial measurements. Serial measurements of CMV DNA viral load can be evaluated by identifying a 10-fold change, as [...] and its performance characteristics determined by the [facility] Pathol ogy Department, Section of Molecular Pathology. It has not been cleared or approved by the U.S. Foodand Drug Administration (FDA), since FDA approval is not required for clinical use of the test. Validation was done as required by The Clinical Laboratory Improvement Amendments of 1988.CREATININE, RANDOM URINE 2016-08-19 14:12:00 Test Item Value Reference Range Interpretation Comments CREATININE URINE (ESTRELLA) (test 64.4 mg/dL code = 375) Reference Range: No NormalsPROTEIN, RANDOM [id number] 14:12:00 Test Item Value Reference Range Interpretation Comments PROTEIN, URINE (ESTRELLA) (test code 183 mg/dL 0-14 H = 1569) POCT-GLUCOSE [id number] 13:10:00 Test Item Value Reference Range Interpretation Comments POC-GLUCOSE METER 116 mg/dL 70-110 H TESTED AT [place] [address] ([facility]) (test code = GILDA Gates [facility] 1531) [address] BK VIRUS PCR, [id number] 13:08:00 Test Item Value Reference Range Interpretation Comments BK VIRUS, PLASMA, NEG Negative or below the (BEAKER) (test code = linear range of the 2145) assay (<1,000 copies/mL) Patients may have replicating BK Virus which is of no clinical significance. Viral load measurementsare helpful to identify BK Virus replication of potential clinical significance. Consensus recommendations have been published of threshold values for the presumptive diagnosis of polyomavirus-associated nephropathy (Transplantation 2005;79:3726-5286).A BK Virus load greater than 5,000-10,000 copies/mL in the plasma is consistent with the presumptive diagnosis of polyoma-associated nephropathy in renal transplant recipients.BK Virus DNA was assessed using quantitative polymerase chain reaction and fl uorescent monitoring of a specific hybridized probe. Genetic variation and other factors can affect the accuracy of nucleic acid testing. Therefore, the results should be interpreted in light of clinical data.This test was developed and its performance characteristics determined by the [facility] Pathology Department, Section of Molecular Pathology. It has not been cleared or approved by the U.S. Food and Drug Administration (FDA). Since FDA approval is not required for clinical use of the test, validation was done as required by the Clinical Laboratory Improvement Amendments of 1988.STOOL CULTURE + SHIGA [id number] 12:43:00 Test Item Value Reference Range Interpretation Comments CULTURE ([facility]) No Salmonella, Shigella (test code = 1095) or Campylobacter isolated Unable to test for Shiga Toxin 1 due to insufficient growth of specimen.Unable to test for Shiga Toxin 2 due to insufficient growth of specimen.POCT-GLUCOSE [id number] 08:25:00 Test Item Value Reference Range Interpretation Comments POC-GLUCOSE METER 67 mg/dL 70-110 L Notified R William MA/TESTED AT ([facility]) (test code = [facility] [address] [place] 1538) [facility] 7703 0 CBC W/PLT COUNT & AUTO [id number] 07:18:00 Test Item Value Reference Range Interpretation Comments WHITE BLOOD CELL COUNT (AKER) 3.0 K/ L 4.0-10.0 L (test code = 775) RED BLOOD CELL COUNT (AKER) 3.10 M/ L 4.00-5.00 L (test code [...] 0.00-0.20 (test code = 417) 0.00BASI METABOLIC [id number] 07:15:00 Test Item Value Reference Range Interpretation [...] 697) EGFR (BEAKER) (test 17 mL/min/1.73 ESTIMA MARLINE GFR IS code = 1092) sq m NOT ACCURATE CREATININE CLEARANCE IN PREDICTING GLOMERULAR FILTRATION RATE . ESTIMATED GFR I S NOT APPLICABLE FOR DIALYSIS PATIEN TS. [id number] 07:14:00 Test Item Value Reference Range Interpretation Comments PHOSPHORUS (BEAKER) (test code = 3.0 mg/dL 2.3-4.7 604) [id number] 07:14:00 Test Item Value Reference Range Interpretation Comments MAGNESIUM (BEAKER) (test code = 1.9 mg/dL 1.6-2.6 627) POCT-GLUCOSE [id number] 20:00:00 Test Item Value Reference Range Interpretation Comments POC-GLUCOSE METER 110 mg/dL 70-110 TESTED AT [place] [address] ([facility]) (test code = [facility] 1538) [address] POCT-GLUCOSE [id number] 17:28:00 Test Item Value Reference Range Interpretation Comments POC-GLUCOSE METER 94 mg/dL 70-[address] [facility] 6720 ([facility]) (test code = [facility] [address] 1538) TACROLIMUS [id number] 14:16:00 Test Item Value Reference Range Interpretation Comments TACROLIMUS BLOOD (BEAKER) (test 9.7 ng/mL 10.0-20.0 L code = 657) AM TROUGH LEVELLIPID [id number] 12:51:00 Test Item Value Reference Range Interpretation Comments TRIGLYCERIDES (BEAKER) (test code = 629 mg/dL 540) CHOLESTEROL (BEAKER) (test code = 168 mg/dL 631) HDL CHOLESTEROL (BEAKER) (test code 17 mg/dL = 976) Calculated LDL not valid if triglyceride >400 mg/dLTriglyceride Reference Range: Low Risk <150Borderline 150-199 High Risk 200-499 Very High Risk >=500Cholesterol Reference Range: Low Risk <200 Borderline 200-239 High Risk >240HDL Cholesterol Reference Range: Low Risk >=60 High Risk<40LDL Cholesterol Reference Range: Optimal <100 Near Optimal 100-129 Borderline 130-159 High 160-189 Very High >=190HEPATIC FUNCTION [id number] 12:51:00 Test Item Value Reference Range Interpretation [...] = 31 U/L 6-55 347) STOOL PATH [id number] 08:52:00 Test Item Value Reference Range Interpretation Comments PATHOGEN EXAM CHARGED (BEAKER) (test Done code = 2381) POCT-GLUCOSE [id number] 08:27:00 Test Item Value Reference Range Interpretation Comments POC-GLUCOSE METER 137 mg/dL 70-[address] [facility] 6720 (BEAKER) (test code = GILDA HANKS 1532) [id number] CBC W/PLT COUNT & AUTO [id number] 08:03:00 Test Item Value Reference Range Interpretation [...] (test code = Normal 762) BASIC METABOLIC [id number] 06:34:00 Test Item Value Reference Range Interpretation [...] 697) EGFR (BEAKER) (test 13 mL/min/1.73 ESTIMA MARLINE GFR IS code = 1092) sq m NOT ACCURATE CREATININE CLEARANCE IN PREDICTING GLOMERULAR FILTRATION RATE . ESTIMATED GFR I S NOT APPLICABLE FOR DIALYSIS PATIEN TS. [id number] 06:33:00 Test Item Value Reference Range Interpretation Comments PHOSPHORUS (BEAKER) (test code = 3.7 mg/dL 2.3-4.7 604) [id number] 06:33:00 Test Item Value Reference Range Interpretation Comments MAGNESIUM (BEAKER) (test code = 2.0 mg/dL 1.6-2.6 627) FECAL [id number] 00:57:00 Test Item Value Reference Range Interpretation Comments FECAL LEUKOCYTES No fecal leukocytes No fecal leukocytes (BEAKER) (test code = seen seen 992) POCT-GLUCOSE [id number] 22:15:00 Test Item Value Reference Range Interpretation Comments POC-GLUCOSE METER 156 mg/dL 70-[address] [facility] 6720 (BEAKER) (test code = GILDA [place] 1538) [id number] OCCULT BLOOD, [id number] 22:01:00 Test Item Value Reference Range Interpretation Comments FECAL OCCULT BLOOD (BEAKER) (test Positive Negative A code = 618) CREATININE, RANDOM [id number] 19:52:00 Test Item Value Reference Range Interpretation Comments CREATININE URINE (ESTRELLA) (test 98.1 mg/dL code = 375) Reference Range: No NormalsPROTEIN, RANDOM [id number] 19:52:00 Test Item Value Reference Range Interpretation Comments PROTEIN, URINE (ESTRELLA) (test code = 40 mg/dL 0-14 H 1569) POCT-GLUCOSE [id number] 18:18:00 Test Item Value Reference Range Interpretation Comments POC-GLUCOSE METER 184 mg/dL 70-[address] [facility] 6720 ([facility]) (test code = GILDA [place] [facility] 1538) [id number] CLOSTRIDIUM DIFFICILE TOXIN [id number] 16:25:00 Test Item Value Reference Range Interpretation Comments CLOSTRIDIUM DIFFICILE TOXIN, PCR Not Detected Not Detected ([facility]) (test code = 1525) This qualitative real-time [...] formed stools will be rejected unless ileus ispresent (i.e., specified when ordering). Patients may be colonized with toxigenic C.difficile strains not causing active disease; therefore, clinical correlation is needed when deciding how to manage patients with a positive test result.The assay has not been validated as a test of cure as amplifiablenucleic acid may persist after effective treatment; therefore, follow-up testing of a positive result is not recommended.LACTATE DEHYDROGENASE (LDH)2016-08-17 15:24:00 Test Item Value Reference Range Interpretation Comments LACTATE DEHYDROGENASE (ESTRELLA) (test 207 U/L 125-220 code = 635) Please add to labs already drawn this morning. Call me if elevated.CBC W/PLT COUNT & AUTO [id number] 14:51:00 Test Item Value Reference Range Interpretation Comments WHITE BLOOD CELL COUNT (JORDEN) 2.9 K/ L 4.0-10.0 L (test code = 775) RED BLOOD CELL COUNT ([facility]) 3.57 M/ L 4.00-5.00 L (test code [...] (test code = 1+ few 966) POCT-GLUCOSE [id number] 10:18:00 Test Item Value Reference Range Interpretation Comments POC-GLUCOSE METER 152 mg/dL 70-[address] [facility] 6720 (BEAKER) (test code = GILDA [place] 1538) [id number] BASIC METABOLIC [id number] 09:01:00 Test Item Value Reference Range Interpretation [...] 697) EGFR (BEAKER) (test 10 mL/min/1.73 ESTIMA MARLINE GFR IS code = 1092) sq m NOT ACCURATE CREATININE CLEARANCE IN PREDICTING GLOMERULAR FILTRATION RATE . ESTIMATED GFR I S NOT APPLICABLE FOR DIALYSIS PATIEN TS. [id number] 08:10:00 Test Item Value Reference Range Interpretation Comments PHOSPHORUS (BEAKER) (test code = 4.4 mg/dL 2.3-4.7 604) [id number] 08:10:00 Test Item Value Reference Range Interpretation Comments MAGNESIUM (BEAKER) (test code = 2.0 mg/dL 1.6-2.6 627) URINALYSIS W/ [id number] 18:11:00 Test Item Value Reference Range Interpretation [...] (test code Urine, Clean Catch = 2795) [id number] 17:43:00 Test Item Value Reference Range Interpretation Comments LIPASE (BEAKER) (test code = 749) 25 U/L 8-78 [id number] 17:43:00 Test Item Value Reference Range Interpretation Comments AMYLASE (BEAKER) (test code = 349) 65 U/L 25-125 HEPATIC FUNCTION [id number] 17:43:00 Test Item Value Reference Range Interpretation [...] = 41 U/L 6-55 347) BASIC METABOLIC [id number] 17:43:00 Test Item Value Reference Range Interpretation [...] 697) EGFR (BEAKER) (test 11 mL/min/1.73 ESTIMA MARLINE GFR IS code = 1092) sq m NOT ACCURATE CREATININE CLEARANCE IN PREDICTING GLOMERULAR FILTRATION RATE . ESTIMATED GFR I S NOT APPLICABLE FOR DIALYSIS PATIEN TS. CBC W/PLT COUNT & AUTO [id number] 17:18:00 Test Item Value Reference Range Interpretation [...] L 0.00-0.20 (test code = 417) 0.00 Notes Date/Time Note Provider Source 2018-05-16 19:05:48-00:00 CHAD KEMP [address] [address] Patient Name: PRICILLA ROWAN Patient#: [id number] Admission Date: 05/16/2018 Date of : 1971 Age/Gender: 46/F HSSV/RM/BED: ERS/ Admitting Phys: Dunia Cooper MD CONSULTATION NOTE DATE OF CONSULTATION: ATTENDING PHYSICIAN: Dunia Cooper MD REFERRING PHYSICIAN: PCP NO REASON FOR CONSULTATION Evaluation for dialysis management. HISTORY OF PRESENT ILLNESS This is a 46-year-old female who has history of ESRD and she is on peritoneal dialysis for about a year. She also has a histor y of high blood pressure, diabetes. 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 She was traveling to [place] for gambling to [place] with her . However, she became more short of breath and ended up in the [facility] ER. Her chest x-ray has evidence of volu me overload. She also reports some abdominal discomfort. No diarrhea. No nause a. No vomiting or chest pain. Reports that she had missed 1 dialysis t reatment on the of last month due to a sleep study. Denies any other complaints. N ephrology was consulted for evaluation of dialysis management. PAST MEDICAL HISTORY Significant for ESRD, hypertension, diabetes. PAST SURGICAL HISTORY Significant for PD catheter placement. She has h ad a hysterectomy and cholecystectomy. SOCIAL HISTORY Negative. FAMILY HISTORY Noncontributory. REVIEW OF SYSTEMS Primarily positive for shortness of breath and c oughing, some abdominal discomfort. No nausea. No vomiting. No diarrhea. No chest pain. Rest of review of systems is negative. Denies any fever, but she does have intermittent coughing. PHYSICAL EXAMINATION VITAL SIGNS: Her blood pressure was elevated in the ER, was noted to be 180/94, pulse is 82. There is a temperature of 100 docum ented in ER. GENERAL: She is awake, answering questions appro priately. HEENT: Head is normocephalic, atraumatic. NECK: Positive JVD. HEART: Normal S1, S2. LUNGS: Bilateral decreased breath sounds at the bases. ABDOMEN: Distended, soft, nontender to palpation . EXTREMITIES: Show trace edema. LABORATORY DATA Legally authenticated by NALDO EDEN 2018--0 6 01:02:08 Her sodium is 138, potassium 6.5, chloride 103, CO2 24, BUN 43, creatinine 15.9, glucose 172. WBC count 7.9, hemoglobin 7.7, rene tocrit 24.3, platelet count is 118,000. Chest x-ray had evidence of pulmonary edema. CT head was negative. In the ER she has received calcium gluco kenyatta, dextrose insulin, and Kayexalate 30 g as well. Her home medications had included labetalol, lisinopril and nifedipine. ASSESSMENTS AND PLAN 1. End-stage renal disease. The patient will be restarted back on her home PD prescription. We will use 4.25 and 2.5% Dianeal solution. The patient uses 6 exchanges for 10 hours volume is 2 L. 2. Hyperkalemia, which is secondary to kidney fa ilure. The patient has been medically treated with calcium gluconate, dextro se insulin and Kayexalate. We will restart her back on dialysis. 3. Volume overload, pulmonary edema for which milo cyr will receive dialysis today and patient has also been given Lasix 80 m g IV x1 today. 4. Abdominal discomfort and abdominal pain. We w ill check peritoneal fluid cell count and culture and we will give a dose o f Fortaz 1 g IV and vancomycin 1 g IV. 5. Anemia, likely chronic in nature due to kidne y failure. We will check H and H tomorrow. Optimize volume status on dialys is. 6. Uncontrolled high blood pressure, which is se condary to volume overload. The patient will be started on PD tonight. 7. History of kidney transplant which had failed and status post nephrectomy in 2018. 8. 9. Further recommendations to follow as the hosp ital course proceeds. Massiel Kemp DO TT: 05/16/2018 19:05:48 RAY/SUSHIL /[id number] Electronically Authenticated by: Massiel Kemp D.O. on 05/17/2018 01:02 PM CS T Legally authenticated by NALDO EDEN 2018--0 6 01:02:08
[2023-01-22 14:18] LABS: Absolute Lymphocytes (CBC) 0.7 K/uL (0.7-4.9); Hematocrit 40.6 % (36.0-45.0); Lymphocytes % 5.8 % (15.3-44.8); MCV 91.2 fL (80-100); MPV 8.2 fL (7.6-11.3); Platelets 279 thou/uL (152-406); RBC Red Blood Cell Count 4.45 M/uL (3.86-4.86)
[2023-01-22] MEDS ORDERED: ONDANSETRON 4 MG/2 ML VIAL ONE (14:25)
[2023-01-22] MEDS ORDERED: FAMOTIDINE 20 MG/2 ML VIAL IV ONE (14:25)
[2023-01-22] MEDS ORDERED: NA CHLORIDE 0.9% 1,000 ML ONE ×2 (14:25→18:30)
[2023-01-22 15:25] LABS: Albumin 3.8 g/dL (3.4-5.0); Bilirubin Total 0.6 mg/dL (0.2-1.0); Potassium 4.2 mEq/L (3.5-5.1); Protein, Total 7.6 g/dL (6.4-8.2)
--- NOTE | 2023-01-22 15:25 | RAD REPORT ---
EXAM DESCRIPTION: CT - Abdomen Pelvis Wo Contrast - 01/22/2023 2:42 pm CLINICAL HISTORY: Abd pain;Nausea / vomiting COMPARISON: Abdomen Pelvis Wo Contrast dated 08/12/2016 TECHNIQUE: Thin cut axial CT imaging of the abdomen and pelvis was performed without IV contrast. Mu ltiplanar reformats were generated and reviewed. All CT scans are performed using dose optimization technique as appropriate and may include automated exposure control or mA/KV adjustment according to patient size. FINDINGS: No suspicious findings in the lung bases. The liver shows diffuse parenchymal hypoattenuation, suggesting steatosis. Spleen, adrenal glands, an d pancreas show no suspicious findings. Gallbladder was surgically removed. [place] kidneys again show marked atrophic changes. Calcified right pelvic transplant. A new left pelv ic renal transplant, which demonstrates moderate hydronephrosis and caliceal dilation. No focal paren chymal abnormality within limits of noncontrast evaluation. No radiopaque calculi. No dilated bowel loops or bowel wall thickening. No free air, free fluid or inflammatory stranding. N o hernia, mass or bulky lymphadenopathy. The urinary bladder is without significant finding. No suspicious bony findings. IMPRESSION: New left pelvic renal transplant, demonstrating moderate hydronephrosis. No evidence of obstructing calculi. This may be related to presence of a stricture. Please correlate clinically. Diffuse hepatic steatosis. Status post cholecystectomy.
[2023-01-22] MEDS ORDERED: ACETAMINOPHEN 500 MG TAB ONE (16:37)
[2023-01-22 17:02] LABS: Specific Gravity 1.012 (1.005-1.030); Urine Bacteria <20 /HPF (<20); Urine Bilirubin NEGATIVE (Negative); Urine Blood Negative (Negative); Urine Clarity Turbid (Clear); Urine Color Light-Yellow (Yellow); Urine Glucose 3+ (Negative); Urine Protein 2+ (Negative); Urine RBC <5 /HPF (None Seen); Urine Urobilinogen Normal (Normal)
--- NOTE | 2023-01-22 17:58 | EDPHYS ---
Physician Documentation [facility] Name: Iliana Chilel Age: 52 yrs Sex: Female : 1970 Arrival Date: 01/22/2023 Time: 13:37 Bed 19 Private MD: ED Physician Sterling Underwood HPI: 01/22 13:54 This 52 yrs old Female presents to ER via Ambulatory with complaints of ms3 Nausea/Vomiting/Diarrhea. 13:54 52-year-old female with past medical history of diabetes, status post renal transplant, ms3 hypertension, seizures, hyperlipidemia presents for nausea, vomiting, diarrhea, abdominal pain, chills, weakness that began this morning on waking up. Patient states she is a renal transplant patient in 2019. Patient states she has not had the symptoms previously. 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 Patient states she did have an increase in urine protein noted in February.. Historical: - Allergies: 13:48 Lipitor; ap3 - Home Meds: 13:48 Prograf 1 mg Oral cap every 12 hours for Prevention of Kidney Transplant Rejection ap3 [Active]; Valcyte 50 mg/mL Oral solr [Active]; - PMHx: 13:48 Diabetes - IDDM; ap3 - PSHx: 13:48 kidney transplant 2019; ap3 - Immunization history:: Client reports receiving the 2nd dose of the Covid vaccine. - Social history:: Smoking status: Patient denies any tobacco usage or history of. ROS: 13:54 ENT: Negative for injury, pain, and discharge, Neck: Negative for injury, pain, and ms3 swelling, Cardiovascular: Negative for chest pain, and palpitations. 13:54 MS/Extremity: Negative for injury and deformity, Skin: Negative for injury, rash, and discoloration. 13:54 Constitutional: Positive for body aches, chills. 13:54 Abdomen/GI: Positive for abdominal pain, nausea, vomiting, and diarrhea. 13:54 All other systems are negative. Exam: 13:54 Constitutional: This is a well developed, well nourished patient who is awake, alert, ms3 and in no acute distress. Neck: Trachea midline, no cervical lymphadenopathy. Supple, full range of motion without nuchal rigidity, or vertebral point tenderness. No Meningismus. Chest/axilla: Normal chest wall appearance and motion. Nontender with no deformity. Cardiovascular: Regular rate and rhythm with a normal S1 and S2. No gallops, murmurs, or rubs. Normal PMI, no JVD. No pulse deficits. Respiratory: Lungs have equal breath sounds bilaterally, clear to auscultation and percussion. No rales, rhonchi or wheezes noted. No increased work of breathing, no retractions or nasal flaring. 13:54 Skin: Warm, dry with normal turgor. Normal color with no rashes, no lesions, and no evidence of cellulitis. 13:54 Abdomen/GI: Inspection: abdomen appears normal, Bowel sounds: normal, Palpation: mild abdominal tenderness, in all quadrants. Vital Signs: 13:46 BP 161 / 92; Pulse 81; Resp 19; Temp 98.9; Pulse Ox 99% ; Weight 100.7 kg; ap3 14:15 BP 162 / 84; Pulse 74; Resp 16; Pulse Ox 96% on R/A; db 15:30 BP 170 / 85; Pulse 80; Resp 16; Pulse Ox 97% ; db 17:00 BP 165 / 87; Pulse 72; Resp 16; Pulse Ox 95% on R/A; db 18:00 BP 135 / 53; Pulse 76; Resp 16; Pulse Ox 95% on R/A; db 19:00 BP 166 / 79; Pulse 76; Resp 16; Pulse Ox 98% on R/A; jb4 MDM: 13:53 Patient medically screened. ms3 13:54 Differential diagnosis: Nonspecific abd pain, gastritis, viral gastroenteritis. ms3 18:03 Data reviewed: vital signs, nurses notes, lab test result(s), radiologic studies, CT ms3 scan, and as a result, I will transfer patient. Management of patient was discussed with the following: Hospitalist: Dr Sampson. I considered the following discharge prescriptions or medication management in the emergency department Medications were administered in the Emergency Department. See MAR. Independent interpretation of the following test(s) in the Emergency Department CT Scan: My interpretation is CT abd/pelvic images reviewed do not reveal free air or bowel obstruction.. Care significantly affected by the following chronic conditions: Hypertension, Renal Transplant. Counseling: I had a detailed discussion with the patient and/or guardian regarding the historical points, exam findings, and any diagnostic results supporting the discharge/admit diagnosis, lab results, radiology results, the need to transfer to another facility, for higher level of care, [facility] does not immediately have the required specialist. ED course: Discussed necessity of transfer with patient. She understands agrees plan. All questions were answered. Return precautions discussed include worsening symptoms, or any other concerns. 01/22 13:54 Order name: CBC with Diff; Complete Time: 14:34 ms3 01/22 13:54 Order name: CMP; Complete Time: 15:26 ms3 01/22 13:54 Order name: Lipase; Complete Time: 15:26 ms3 01/22 13:54 Order name: Urinalysis w/ reflexes; Complete Time: 17:06 ms3 01/22 13:54 Order name: CT Abd/Pelvis - Without Contrast; Complete Time: 15:26 ms3 01/22 13:54 Order name: IV Saline Lock; Complete Time: 14:21 ms3 01/22 13:54 Order name: Labs collected and sent; Complete Time: 14:21 ms3 Administered Medications: 14:18 Drug: NS 0.9% IV 1000 ml Route: IV; Rate: 1 bolus; Site: left antecubital; db 15:30 Follow up: Response: No adverse reaction; IV Status: Completed infusion; IV Intake: db 1000ml 14:18 Drug: Famotidine IVP 20 mg Route: IVP; Site: left antecubital; db 15:55 Follow up: Response: No adverse reaction db 14:18 Drug: Ondansetron IVP 4 mg Route: IVP; Site: left antecubital; db 15:55 Follow up: Response: No adverse reaction db 16:26 Drug: Acetaminophen PO 1000 mg Route: PO; db 18:39 Follow up: Response: No adverse reaction db 18:10 Drug: NS 0.9% IV 1000 ml Route: IV; Rate: 125 ml/hr; Site: left antecubital; db Disposition Summary: 01/22/23 17:57 Transfer Ordered Transfer Location: [facility] ms3 Reason: Higher level of care ms3 Condition: Stable ms3 Problem: new ms3 Symptoms: are unchanged ms3 Accepting Physician: Dr Tai(01/22/23 19:37) jb4 Diagnosis - Unspecified hydronephrosis ms3 - S/P Renal Transplant ms3 Forms: - Medication Reconciliation Form ms3 - SBAR form ms3 Signatures: Dispatcher [employer] Jesus Carnes RN RN jb4 Laura Ramesh RN RN ap3 Sterling Underwood DO DO ms3 Gena Leblanc RN RN db Corrections: (The following items were deleted from the chart) 19:37 17:57 Dr Tai ms3 jb4
--- NOTE | 2023-01-22 17:58 | ER ---
Nurse's Notes [facility] Name: Iliana Chilel Age: 52 yrs Sex: Female : 1970 Arrival Date: 01/22/2023 Time: 13:37 Bed 19 Private MD: Diagnosis: Unspecified hydronephrosis;S/P Renal Transplant Presentation: 01/22 13:46 Chief complaint: Patient states: she woke up this morning with abdominal pain and ap3 nausea/vomiting, and cold sweats. patient reports weakness and fatigue. Coronavirus screen: At this time, the client does not indicate any symptoms associated with coronavirus-19. Ebola Screen: No symptoms or risks identified at this time. Initial Sepsis Screen: Does the patient meet any 2 criteria? No. Patient's initial sepsis screen is negative. Does the patient have a suspected source of infection? Yes: Acute abdominal pain. Risk Assessment: Do you want to hurt yourself or someone else? Patient reports no desire to harm self or others. Onset of symptoms was January 22, 2023. 13:46 Method Of Arrival: Ambulatory ap3 13:46 Acuity: BOO 3 ap3 Triage Assessment: 13:49 General: Appears ill, Behavior is calm, cooperative, appropriate for age, Reports ap3 chills for feeling ill for fatigue for. Pain: Complains of pain in abdomen. Neuro: Level of Consciousness is awake, alert, obeys commands, Oriented to person, place, time, situation, Appropriate for age. Cardiovascular: Patient's skin is warm and dry. Respiratory: Airway is patent Respiratory effort is even, unlabored, Respiratory pattern is regular, symmetrical. GI: Reports lower abdominal pain, upper abdominal pain, nausea, vomiting. Historical: - Allergies: 13:48 Lipitor; ap3 - Home Meds: 13:48 Prograf 1 mg Oral cap every 12 hours for Prevention of Kidney Transplant Rejection ap3 [Active]; Valcyte 50 mg/mL Oral solr [Active]; - PMHx: 13:48 Diabetes - IDDM; ap3 - PSHx: 13:48 kidney transplant 2020; ap3 - Immunization history:: Client reports receiving the 2nd dose of the Covid vaccine. - Social history:: Smoking status: Patient denies any tobacco usage or history of. Screenin:50 [facility] ED Fall Risk Assessment (Adult) History of falling in the last 3 months, ap3 including since admission No falls in past 3 months (0 pts). Abuse screen: Denies threats or abuse. Nutritional screening: No deficits noted. Tuberculosis screening: No symptoms or risk factors identified. Assessment: 14:10 General: Appears in no apparent distress. uncomfortable, Behavior is calm, cooperative, db quiet. Pain: Complains of pain in abdomen. Neuro: Level of Consciousness is awake, alert, obeys commands, Oriented to person, place, time, situation. Respiratory: Airway is patent Respiratory effort is even, unlabored, Respiratory pattern is regular, symmetrical. GI: Abdomen is obese. 14:22 Reassessment: Patient appears in no apparent distress at this time. Patient and/or db family updated on plan of care and expected duration. Pain level reassessed. Patient is alert, oriented x 3, equal unlabored respirations, skin warm/dry/pink. 16:28 Reassessment: PATIENT STATES WILL ATTEMPT TO USE THE RESTROOM. db 18:39 Reassessment: REPORT CALLED TO MELANIE HERRERA AT [facility], GOING TO ROOM 2138. db 19:15 Reassessment: Patient appears in no apparent distress at this time. Patient and/or jb4 family updated on plan of care and expected duration. Pain level reassessed. Patient is alert, oriented x 3, equal unlabored respirations, skin warm/dry/pink. Vital Signs: 13:46 BP 161 / 92; Pulse 81; Resp 19; Temp 98.9; Pulse Ox 99% ; Weight 100.7 kg; ap3 14:15 BP 162 / 84; Pulse 74; Resp 16; Pulse Ox 96% on R/A; db 15:30 BP 170 / 85; Pulse 80; Resp 16; Pulse Ox 97% ; db 17:00 BP 165 / 87; Pulse 72; Resp 16; Pulse Ox 95% on R/A; db 18:00 BP 135 / 53; Pulse 76; Resp 16; Pulse Ox 95% on R/A; db 19:00 BP 166 / 79; Pulse 76; Resp 16; Pulse Ox 98% on R/A; jb4 ED Course: 13:41 Patient arrived in ED. im 13:43 Sterling Underwood DO is Attending Physician. ms3 13:48 Triage completed. ap3 13:50 Arm band placed on left wrist. ap3 14:01 Gena Leblanc, RN is Primary Nurse. db 14:15 Inserted saline lock: 20 gauge in left antecubital area, using aseptic technique. db 14:25 Patient has correct armband on for positive identification. Placed in gown. Call light db in reach. Side rails up X 1. Pulse ox on. NIBP on. Warm blanket given. 14:44 CT Abd/Pelvis - Without Contrast In Process Unspecified. EDMS 14:54 Lab(s) recollected, by me, sent to lab. db 18:22 pt accepted in transfer to [facility] by dr Headley admin approval given by sam Ruvalcaba. pt going to room 2138. 19:37 No provider procedures requiring assistance completed. Patient transferred, IV remains jb4 in place. Administered Medications: 14:18 Drug: NS 0.9% IV 1000 ml Route: IV; Rate: 1 bolus; Site: left antecubital; db 15:30 Follow up: Response: No adverse reaction; IV Status: Completed infusion; IV Intake: db 1000ml 14:18 Drug: Famotidine IVP 20 mg Route: IVP; Site: left antecubital; db 15:55 Follow up: Response: No adverse reaction db 14:18 Drug: Ondansetron IVP 4 mg Route: IVP; Site: left antecubital; db 15:55 Follow up: Response: No adverse reaction db 16:26 Drug: Acetaminophen PO 1000 mg Route: PO; db 18:39 Follow up: Response: No adverse reaction db 18:10 Drug: NS 0.9% IV 1000 ml Route: IV; Rate: 125 ml/hr; Site: left antecubital; db Intake: 15:30 IV: 1000ml; Total: 1000ml. db Outcome: 17:57 ER care complete, transfer ordered by . ms3 19:37 Transferred by ground EMS to [facility], Transfer form completed. jb4 X-rays sent w/ patient. 19:37 Condition: stable 19:37 Discharge instructions given to patient, Instructed on the need for transfer, Demonstrated understanding of instructions. 19:37 Patient left the ED. jb4 Signatures: Dispatcher [employer] EDMS Sabine Reid bd Jesus Mancilla RN RN jb4 Laura Ramesh RN RN ap3 Sterling Underwood DO DO ms3 Gena Leblanc, RN RN db Veda Lim im
[2023-01-22 19:47] VITALS: TEMP 98.9
[2023-01-22 20:07] VITALS: BP 166/79; O2SAT 98
== END 2023-01-22 19:37 | disposition short-term general hospital (02) ==
LOC: ER 13:37
DX: N13.30 Unspecified hydronephrosis (principal); Z94.0 Kidney transplant status; E11.9 Type 2 diabetes mellitus without complications; Z88.8 Allergy status to other drugs, medicaments and biological substances
CPT/HCPCS: 85025; 81001; 36415; 83690; 80053; 74176; J2405; J7030 ×2; 96361; 96374; 96375; 99285

== ENCOUNTER → 2023-07-24 | Emergency (ER) | payer OTHER ==
[~2023-07-24] MED LIST: ACETAMINOPHEN 500 MG TAB ONE; AZITHROMYCIN 500 MG INJ IVPB ONE; CEFTRIAXONE 1000 MG/VIAL ONE; NA CHLORIDE 0.9% 250 ML ONE; NA CHLORIDE 0.9% 50 ML ONE; NA CHLORIDE 0.9% 500 ML ONE; ONDANSETRON 4 MG/2 ML VIAL ONE
[2023-07-24 18:12] LABS: Absolute Eosinophils 0.1 K/uL (0-0.5); Absolute Lymphocytes (CBC) 0.9 K/uL (0.7-4.9); Absolute Monocytes 0.8 K/uL (0.1-1.3); Absolute Neutrophil 8.1 K/uL (1.8-8.0); Basophils % 0.2 % (0-1.3); Eosinophils % 0.6 % (0-4.4); Hematocrit 32.3 % (36.0-45.0); MCH 30.7 pg (27.0-35.0); MCHC 34.1 g/dL (32.0-36.0); MCV 90.1 fL (80-100); MPV 7.4 fL (7.6-11.3); Monocytes % 8.1 % (3.3-12.3); Neutrophils % 82.1 % (41.7-73.7); Nucleated Red Blood Cells % 0.2 % (0-0); Platelets 389 thou/uL (152-406); RBC Red Blood Cell Count 3.59 M/uL (3.86-4.86); Red Cell Distribution Width 13.9 % (12.1-15.2)
[2023-07-24 18:13] LABS: SARS-CoV-2 Antigen CONTROL BLUE LINE VIS/BG OK; SARS-CoV-2 Antigen Rapid Res Negative (Negative)
[2023-07-24 18:34] LABS: Albumin 2.6 g/dL (3.4-5.0); Albumin/Globulin Ratio 0.5 (1.1-1.8); Anion Gap 10.6 mEq/L (5.0-15.0); Bilirubin Direct 0.2 mg/dL (0-0.2); Bilirubin Indirect, Calculated 0.2 mg/dL (0.2-0.8); Bilirubin Total 0.4 mg/dL (0.2-1.0); Magnesium 2.1 mg/dL (1.6-2.4); Potassium 3.6 mEq/L (3.5-5.1); Protein, Total 7.6 g/dL (6.4-8.2); Troponin High Sensitivity 8.9 pg/mL (<58.9)
[2023-07-24 18:37] LABS: Protime INR 1.19
--- NOTE | 2023-07-24 18:57 | RAD REPORT ---
EXAM DESCRIPTION: RAD - Chest Single View - 07/24/2023 6:07 pm CLINICAL HISTORY: COUGH Chest pain. COMPARISON: <Comparisons> FINDINGS: Portable technique limits examination quality. Mild interstitial pulmonary edema. The heart is mildly enlarged in size. No displaced fractures. IMPRESSION: Mild CHF.
--- NOTE | 2023-07-24 19:31 | RAD REPORT ---
EXAM DESCRIPTION: CT - Thorax Wo Con CLINICAL HISTORY: Chest pain SOB COMPARISON: <Comparisons> FINDINGS: Airspace opacity seen in the posterior left lung base compatible with pneumonia. Lungs are otherwise clear. No pleural thickening or pleural effusion. No pneumothorax. No axillary, mediastinal or hilar adenopathy. No concerning bony finding. No gross upper abdominal finding. All CT scans are performed using dose optimization technique as appropriate and may include automated exposure control or mA/KV adjustment according to patient size. IMPRESSION: Developing left lower lobe pneumonia.
--- NOTE | 2023-07-24 20:24 | ER ---
Nurse's Notes [facility] [place] Name: Iliana Chilel Age: 53 yrs Sex: Female : 1970 Arrival Date: 07/24/2023 Time: 16:45 Bed 3 Private MD: Diagnosis: Pneumonia, unspecified organism Presentation: 07/23 17:27 Chief complaint: Patient states: pt tested positive for COVID last week , she is till iw feeling bad, running fever, chills, SOB, cough, hx of kidney transplant X 2, feels dehydrated. Coronavirus screen: Client presents with at least one sign or symptom that may indicate coronavirus-19. Client reports previous positive COVID test result. Ebola Screen: Patient negative for fever greater than or equal to 101.5 degrees Fahrenheit, and additional compatible Ebola Virus Disease symptoms Patient denies exposure to infectious person. Patient denies travel to an Ebola-affected area in the 21 days before illness onset. No symptoms or risks identified at this time. Initial Sepsis Screen: Does the patient meet any 2 criteria? No. Patient's initial sepsis screen is negative. Does the patient have a suspected source of infection?. Risk Assessment: Do you want to hurt yourself or someone else? Patient reports no desire to harm self or others. Onset of symptoms was July 23, 2023. 17:27 Method Of Arrival: Ambulatory 17:27 Acuity: BOO 3 iw Triage Assessment: 19:00 Respiratory: Onset: The symptoms/episode began/occurred gradually, the patient has mild jw7 shortness of breath. Historical: - Allergies: 17:28 Lipitor; iw - PMHx: 17:28 Diabetes - IDDM; Hypertensive disorder; Hypercholesterolemia; iw - PSHx: 17:28 kidney transplant 2020; hysterectomy; Cholecystectomy; ovarian cyst; bladder suspension;iw - Immunization history:: Adult Immunizations unknown. - Social history:: Smoking status: Patient denies any tobacco usage or history of. Screenin:53 [facility] ED Fall Risk Assessment (Adult) History of falling in the last 3 months, kc6 including since admission No falls in past 3 months (0 pts) Confusion or Disorientation No (0 pts) Intoxicated or Sedated No (0 pts) Impaired Gait No (0 pts) Mobility Assist Device Used No (0 pt) Altered Elimination No (0 pt) Score/Fall Risk Level 0 - 2 = Low Risk. Abuse screen: Denies threats or abuse. Denies injuries from another. Nutritional screening: No deficits noted. Tuberculosis screening: No symptoms or risk factors identified. Assessment: 17:54 General: Appears in no apparent distress. comfortable, well groomed, well developed, kc6 Behavior is calm, cooperative, appropriate for age, Reports chills for fever for feeling ill for fatigue for. Pain: Denies pain. Neuro: Level of Consciousness is awake, alert, obeys commands, Oriented to person, place, time, situation, Appropriate for age. Cardiovascular: Denies chest pain, Heart tones S1 S2 present Capillary refill < 3 seconds Rhythm is sinus rhythm. Respiratory: Reports shortness of breath cough that is non-productive, Airway is patent Trachea midline Respiratory effort is even, unlabored, Respiratory pattern is regular, symmetrical, Breath sounds are clear bilaterally. GI: No signs and/or symptoms were reported involving the gastrointestinal system. : No signs and/or symptoms were reported regarding the genitourinary system. EENT: No signs and/or symptoms were reported regarding the EENT system. Derm: No signs and/or symptoms reported regarding the dermatologic system. Skin is intact, is healthy with good turgor, Skin is pink, warm \T\ dry. Musculoskeletal: No signs and/or symptoms reported regarding the musculoskeletal system. Circulation, motion, and sensation intact. Capillary refill < 3 seconds, Range of motion: intact in all extremities. 19:00 General: Appears in no apparent distress. comfortable, Behavior is calm, cooperative. jw7 Pain: Denies pain. Neuro: Level of Consciousness is awake, alert, obeys commands, Oriented to person, place, time, situation. Cardiovascular: Heart tones S1 S2 present Capillary refill < 3 seconds Clubbing of nail beds is absent JVD is absent Patient's skin is warm and dry. Rhythm is sinus rhythm. 19:00 Respiratory: Reports shortness of breath cough that is non-productive, Airway is patent jw7 Trachea midline Respiratory effort is even, unlabored, Respiratory pattern is regular, symmetrical, Breath sounds are clear bilaterally. GI: No deficits noted. No signs and/or symptoms were reported involving the gastrointestinal system. : No deficits noted. No signs and/or symptoms were reported regarding the genitourinary system. EENT: No deficits noted. No signs and/or symptoms were reported regarding the EENT system. Derm: Skin is intact, is healthy with good turgor, Skin is dry, Skin is normal, Skin temperature is warm. Musculoskeletal: Circulation, motion, and sensation intact. Range of motion: intact in all extremities. 20:39 General: Discharge pending antibiotic infusion. vc1 20:45 Reassessment: Patient appears in no apparent distress at this time. No changes from vc1 previously documented assessment. Patient and/or family updated on plan of care and expected duration. Pain level reassessed. Patient is alert, oriented x 3, equal unlabored respirations, skin warm/dry/pink. 21:47 GI: Reports nausea. vc1 21:48 General: Reports feeling hot. vc1 Vital Signs: 17:27 BP 190 / 79; Pulse 85; Resp 20; Temp 98.4(O); Pulse Ox 97% on R/A; Weight 100.7 kg; iw Height 5 ft. 7 in. ; Pain 0/10; 17:55 BP 165 / 82; Pulse 77; Resp 18; Pulse Ox 98% on R/A; ph 19:12 BP 156 / 108; Pulse 75; Resp 18; Pulse Ox 98% on R/A; ph 20:40 BP 176 / 85; Pulse 78; Resp 18; Pulse Ox 98% ; vc1 21:48 BP 165 / 87; Pulse 86; Resp 18; Temp 99.5; Pulse Ox 96% ; vc1 17:27 Body Mass Index 34.77 (100.70 kg, 170.18 cm) iw 17:27 Pain Scale: Adult iw ED Course: 16:50 Patient arrived in ED. ae5 17:10 Malcolm Wood PA is PHCP. cp 17:10 Danis Christiansen MD is Attending Physician. cp 17:28 Triage completed. iw 17:30 Arm band placed on. iw 17:40 Britt Jolly, MELANIE is Primary Nurse. kc6 17:53 Patient has correct armband on for positive identification. Bed in low position. Call kc6 light in reach. Side rails up X 1. Client placed on continuous cardiac and pulse oximetry monitoring. NIBP monitoring applied. secured entrance monitor on. 17:53 SARS RAPID Sent. kc6 17:53 Influenza Screen (a \T\ B) Sent. kc6 17:53 Patient maintains SpO2 saturation greater than 95% on room air. kc6 17:55 Basic Metabolic Panel Sent. ph 17:55 CBC with Diff Sent. ph 17:55 LFT's Sent. ph 17:55 Magnesium Sent. ph 17:55 NT PRO-BNP Sent. ph 17:55 PT-INR Sent. ph 17:55 Troponin HS Sent. ph 17:55 Initial lab(s) drawn, by me, sent to lab. Inserted saline lock: 22 gauge in right ph antecubital area, using aseptic technique. Blood collected. 18:09 XRAY Chest (1 view) In Process Unspecified. EDMS 19:00 Report received from MELANIE Myrick. jw7 19:24 CT Chest Wo Con In Process Unspecified. EDMS 22:01 Provided Education on: complete all antibiotic, quarantine away from others. vc1 22:01 No provider procedures requiring assistance completed. IV discontinued, intact, vc1 bleeding controlled, No redness/swelling at site. Pressure dressing applied. Administered Medications: 19:27 Drug: NS 0.9% IV 500 ml IV at 100 ml/hr continuous; give 250 ml bolus, then 100 cc/hr jw7 Route: IV; Rate: 100 ml/hr; Site: right antecubital; 22:01 Follow up: IV Status: Completed infusion; IV Intake: 1000ml vc1 20:00 Drug: Rocephin IV 1 grams IV at calculated rate once; Given slow IV push per pharmacy vc1 instructions Route: IV; Rate: calculated rate; Site: right antecubital; 21:10 Follow up: IV Status: Completed infusion; IV Intake: 50ml vc1 20:39 Drug: Zithromax IVPB 500 mg IVPB once over 1 hrs; mix in 250 mL NS Route: IVPB; Infused vc1 Over: 1 hrs; Site: right antecubital; 21:39 Follow up: IV Status: Completed infusion; IV Intake: 250ml vc1 21:59 Drug: Acetaminophen PO 1000 mg PO once Route: PO; vc1 22:00 Follow up: Response: Medication administered at discharge. vc1 22:00 Drug: Ondansetron IVP 4 mg IVP once; over 2 minutes Route: IVP; Site: right antecubital;vc1 22:00 Follow up: Response: Medication administered at discharge. vc1 Medication: 17:56 VIS not applicable for this client. ph Intake: 21:10 IV: 50ml; Total: 50ml. vc1 21:39 IV: 250ml; Total: 300ml. vc1 22:01 IV: 1000ml; Total: 1300ml. vc1 Outcome: 20:24 Discharge ordered by . cp 22:01 Discharged to home ambulatory, with significant other, vc1 22:01 Condition: good 22:01 Discharge instructions given to patient, Instructed on discharge instructions, follow up and referral plans. medication usage, Demonstrated understanding of instructions, follow-up care, medications, Prescriptions given X 3, 22:05 Patient left the ED. vc1 Signatures: Dispatcher [employer] EDMS Tonia Ordaz RN RN iw Danyell Bui RN RN Malcolm Mann PA PA cp Calcote, Vanessa RN RN vc1 Kesha Vela RN RN jw7 Britt Jolly RN RN kc6 Radha Rodriguez ae5 Corrections: (The following items were deleted from the chart) 17:46 17:27 BP 190 / 79; Pulse 85bpm; Resp 20bpm; Pulse Ox 97% RA; 100.7 kg; Height 5 ft. 7 iw in.; BMI: 34.7; Pain 0/10, Adult; iw 21:49 21:47 Neuro: Reports headache vc1 vc1
--- NOTE | 2023-07-24 20:25 | EDPHYS ---
Physician Documentation [facility] Name: Iliana Chilel Age: 53 yrs Sex: Female : 1970 Arrival Date: 07/24/2023 Time: 16:45 Bed 3 Private MD: ED Physician Danis Christiansen HPI: 07/23 17:20 This 53 yrs old Female presents to ER via Ambulatory with complaints of Covid cp +, Breathing Difficulty, Cough. 17:20 The patient or guardian reports cough, that is intermittent, difficulty breathing, cp chills. 17:20 Associated signs and symptoms: Pertinent negatives: chest pain, diarrhea, vomiting. cp 17:20 Onset: The symptoms/episode began/occurred last week, after testing positive for COVID. cp Historical: - Allergies: 17:28 Lipitor; iw - PMHx: 17:28 Diabetes - IDDM; Hypertensive disorder; Hypercholesterolemia; iw - PSHx: 17:28 kidney transplant 2020; hysterectomy; Cholecystectomy; ovarian cyst; bladder suspension;iw - Immunization history:: Adult Immunizations unknown. - Social history:: Smoking status: Patient denies any tobacco usage or history of. ROS: 17:25 Constitutional: Positive for chills, Negative for fever, poor PO intake, cp 17:25 Eyes: Negative for injury, pain, redness, and discharge, cp 17:25 ENT: Negative for drainage from ear(s), ear pain, sore throat, difficulty swallowing, difficulty handling secretions, 17:25 Cardiovascular: Negative for chest pain, edema, 17:25 Respiratory: Positive for cough, shortness of breath, 17:25 Abdomen/GI: Negative for abdominal pain, vomiting, diarrhea, constipation, 17:25 Neuro: Negative for altered mental status, dizziness, headache, syncope, weakness, 17:25 All other systems are negative, Exam: 16:53 ECG was reviewed by the Attending Physician. cp 17:30 Constitutional: The patient appears in no acute distress, alert, awake, cp non-diaphoretic, non-toxic, well developed, well nourished, obese, 17:30 Head/Face: Normocephalic, atraumatic. cp 17:30 Eyes: Periorbital structures: appear normal, Conjunctiva: normal, no exudate, no injection, Sclera: no appreciated abnormality, Lids and lashes: appear normal, bilaterally, 17:30 ENT: External ear(s): are unremarkable, Nose: is normal, Mouth: Lips: moist, Oral mucosa: pink and intact, moist, Posterior pharynx: Airway: no evidence of obstruction, patent, 17:30 Neck: ROM/movement: is normal, is supple, without pain, no range of motions limitations, no meningismus, no nuchal rigidity, 17:30 Chest/axilla: Inspection: normal, 17:30 Cardiovascular: Rate: normal, Rhythm: regular, Edema: is not appreciated, JVD: is not appreciated, 17:30 Respiratory: the patient does not display signs of respiratory distress, Respirations: labored breathing, that is mild, Breath sounds: bronchial sounds, that are mild, are heard diffusely, stridor, is not appreciated, wheezing: is not appreciated, 17:30 Abdomen/GI: Inspection: abdomen appears normal, Palpation: abdomen is soft and non-tender, in all quadrants, 17:30 Back: pain, is absent, ROM is normal, 17:30 Neuro: Orientation: to person, place \T\ time. Mentation: is normal, Motor: moves all fours, strength is normal, Vital Signs: 17:27 BP 190 / 79; Pulse 85; Resp 20; Temp 98.4(O); Pulse Ox 97% on R/A; Weight 100.7 kg; iw Height 5 ft. 7 in. ; Pain 0/10; 17:55 BP 165 / 82; Pulse 77; Resp 18; Pulse Ox 98% on R/A; ph 19:12 BP 156 / 108; Pulse 75; Resp 18; Pulse Ox 98% on R/A; ph 20:40 BP 176 / 85; Pulse 78; Resp 18; Pulse Ox 98% ; vc1 21:48 BP 165 / 87; Pulse 86; Resp 18; Temp 99.5; Pulse Ox 96% ; vc1 17:27 Body Mass Index 34.77 (100.70 kg, 170.18 cm) iw 17:27 Pain Scale: Adult iw MDM: 17:10 Patient medically screened. cp 18:00 Differential diagnosis: bronchitis, flu, pneumonia, sepsis. cp 19:54 Data reviewed: vital signs, nurses notes, lab test result(s), EKG, radiologic studies, cp CT scan, plain films. Counseling: I had a detailed discussion with the patient and/or guardian regarding the historical points, exam findings, and any diagnostic results supporting the discharge/admit diagnosis, lab results, radiology results, would like outpatient treatment for pneumonia with oral antibiotics. 07/23 17:39 Order name: Basic Metabolic Panel; Complete Time: 18:42 cp 07/23 18:42 Interpretation: Normal except: CL 109; GLUC 154; BUN 22; CRE 2.32; GFR 25. cp 07/23 17:39 Order name: CBC with Diff; Complete Time: 18:42 cp 07/23 18:42 Interpretation: Normal except: RBC 3.59; HGB 11.0; HCT 32.3; MPV 7.4; DANIELA% 82.1; LYM% cp 9.0; NEUT A 8.1. 07/23 17:39 Order name: LFT's; Complete Time: 18:42 cp 07/23 18:42 Interpretation: Normal except: ALB 2.6; GLOB 5.0; A/G 0.5. cp 07/23 17:39 Order name: Magnesium; Complete Time: 18:42 cp 07/23 17:39 Order name: NT PRO-BNP; Complete Time: 18:42 cp 07/23 19:00 Interpretation: Abnormal: NT PRO-BNP 1346. cp 07/23 17:39 Order name: PT-INR; Complete Time: 18:42 cp 07/23 17:39 Order name: Troponin HS; Complete Time: 18:42 cp 07/23 17:39 Order name: SARS RAPID; Complete Time: 18:42 cp 07/23 19:00 Interpretation: Reviewed. cp 07/23 17:39 Order name: Influenza Screen (a \T\ B); Complete Time: 18:42 cp 07/23 17:39 Order name: XRAY Chest (1 view); Complete Time: 18:59 cp 14 18:59 Interpretation: Report review. cp 07/23 19:01 Order name: CT Chest Wo Con; Complete Time: 19:49 cp 07/23 17:39 Order name: EKG; Complete Time: 17:42 cp 07/23 17:39 Order name: Cardiac monitoring; Complete Time: 17:53 cp 07/23 17:39 Order name: EKG - Nurse/Tech; Complete Time: 17:53 cp 07/23 17:39 Order name: IV Saline Lock; Complete Time: 17:53 cp 07/23 17:39 Order name: Labs collected and sent; Complete Time: 17:53 cp 07/23 17:39 Order name: O2 Per Protocol; Complete Time: 17:53 cp 07/23 17:39 Order name: O2 Sat Monitoring; Complete Time: 17:53 cp EC:53 Rate is 77 beats/min. Rhythm is regular. SD interval is normal. QRS interval is normal. cp QT interval is normal. T waves are Inverted in lead aVR. Interpreted by me. Reviewed by me. Administered Medications: 19:27 Drug: NS 0.9% IV 500 ml IV at 100 ml/hr continuous; give 250 ml bolus, then 100 cc/hr jw7 Route: IV; Rate: 100 ml/hr; Site: right antecubital; 22:01 Follow up: IV Status: Completed infusion; IV Intake: 1000ml vc1 20:00 Drug: Rocephin IV 1 grams IV at calculated rate once; Given slow IV push per pharmacy vc1 instructions Route: IV; Rate: calculated rate; Site: right antecubital; 21:10 Follow up: IV Status: Completed infusion; IV Intake: 50ml vc1 20:39 Drug: Zithromax IVPB 500 mg IVPB once over 1 hrs; mix in 250 mL NS Route: IVPB; Infused vc1 Over: 1 hrs; Site: right antecubital; 21:39 Follow up: IV Status: Completed infusion; IV Intake: 250ml vc1 21:59 Drug: Acetaminophen PO 1000 mg PO once Route: PO; vc1 22:00 Follow up: Response: Medication administered at discharge. vc1 22:00 Drug: Ondansetron IVP 4 mg IVP once; over 2 minutes Route: IVP; Site: right antecubital;vc1 22:00 Follow up: Response: Medication administered at discharge. vc1 Disposition: 07/24 08:59 Co-signature as Attending Physician, Danis Christiansen MD I reviewed the patient's care rt provided by the Advanced Practice Provider and agree with the diagnosis and treatment plan. Disposition Summary: 07/24/23 20:24 Discharge Ordered Notes: Location: Home cp Problem: new cp Symptoms: have improved cp Condition: Stable cp Diagnosis - Pneumonia, unspecified organism cp Followup: cp - With: Private Physician - When: 2 - 3 days - Reason: Recheck today's complaints Discharge Instructions: - Discharge Summary Sheet cp - Community-Acquired Pneumonia, Adult cp Forms: - Medication Reconciliation Form cp - Thank You Letter cp - Antibiotic Education cp - Prescription Opioid Use cp - Patient Portal Instructions cp - Leadership Thank You Letter cp Prescriptions: - Bromfed DM 2-30-10 mg/5 mL Oral syrup - administer 10 milliliter ORAL route every 6 hours as needed for cold symptoms; cp 240 milliliter; Refills: 0, Product Selection Permitted - Augmentin 875-125 mg Oral Tablet - take 1 tablet ORAL route every 12 hours for 10 days; 20 tablet; Refills: 0, cp Product Selection Permitted - Zithromax Z-Teofilo 250 mg Oral Tablet - take 1 tablet ORAL route as directed for 5 days Day 1 - take two (2) tablets cp one time. Day 2, 3, 4 , 5 take one (1) tablet once daily.; 6 tablet; Refills: 0, Product Selection Permitted Signatures: Dispatcher [employer] EDMS Tonia Ordaz RN RN iw Danyell Bui RN RN ph Malcolm Wood, NANI PA cp Cheyenne Sanders RN RN vc1 Kesha Vela RN RN jw7 Danis Christiansen MD MD rt Corrections: (The following items were deleted from the chart) 07:52 07/23 17:20 The patient or guardian reports cough, that is intermittent, difficulty cp breathing, cp
[2023-07-24 23:08] VITALS: BP 165/87; TEMP 99.5; O2SAT 96
--- NOTE | 2023-07-25 17:22 | EKG ---
Test Date: 2023-07-24 Test Time: 16:46:29 Emergency Response Technician: RAHEEL MEASUREMENT RESULTS: Intervals: Rate: 77 RI: 172 QRSD: 90 QT: 402 QTc: 454 [place]: P: 69 RI: 172 QRS: -8 T: 59 INTERPRETIVE STATEMENTS: Normal sinus rhythm Normal ECG Compared to ECG 02/01/2020 18:11:52 ST (T wave) deviation no longer present Possible ischemia no longer present Electronically Signed On 07-25-23 17:20:14 CDT by Chip Arana
== END ==
LOC: ER 16:45
DX: J18.9 Pneumonia, unspecified organism (principal); Z11.52 Encounter for screening for COVID-19; Z88.8 Allergy status to other drugs, medicaments and biological substances
CPT/HCPCS: 96365; 96361; 93005; 85025; 80048; 36415; 83735; 85610; 80076; 84484; 83880; 87804 ×2; 71250; 71045; 96375; 99285; 87811; J2405; J7050; J7040; J0696